=== PATIENT | female | born 1985 | race Hispanic/Latino ===

== ENCOUNTER 2018-06-16 13:00 | Emergency (ER) | payer MEDICARE ==
[2018-06-16 14:17] LABS: Absolute Lymphocytes (CBC) 3.8 K/uL (0.7-4.9); Absolute Monocytes 0.5 K/uL (0.1-1.3); Absolute Neutrophil 7.8 K/uL (1.8-8.0); Basophils % 0.4 % (0-1.3); Eosinophils % 0.2 % (0-4.4); Hematocrit 39.3 % (36.0-45.0); Lymphocytes % 31.2 % (15.3-44.8); MCH 33.8 pg (27.0-35.0); MCV 98.5 fL (80-100); MPV 8.7 fL (7.6-11.3); Monocytes % 3.7 % (3.3-12.3); RBC Red Blood Cell Count 3.99 M/uL (3.86-4.86)
[2018-06-16] MEDS ORDERED: ONDANSETRON 4 MG/2 ML VIAL ONE (14:27)
[2018-06-16] MEDS ORDERED: NA CHLORIDE 0.9% 1,000 ML ONE (14:27)
[2018-06-16 14:33] LABS: ALT/SGPT 82 U/L (12-78); AST/SGOT 26 U/L (15-37); Albumin 3.8 g/dL (3.4-5.0); Alkaline Phosphatase 80 U/L (45-117); BUN Blood Urea Nitrogen 10 mg/dL (7-18); Bicarbonate 23 mmol/L (21-32); Bilirubin Direct 0.2 mg/dL (0-0.2); Bilirubin Total 0.5 mg/dL (0.2-1.0); Glucose Level 155 mg/dL (74-106); Lipase 94 U/L (73-393); Potassium 3.6 mmol/L (3.5-5.1); Sodium Level 143 mmol/L (136-145)
[2018-06-16 14:45] LABS: Calcium Oxalate Crystals- Ur PRESENT (NONE SEEN); Urine Bacteria <20 /HPF (<20); Urine Culture Reflex Order NOT NEEDED; Urine Mucus 2+ /HPF (NONE SEEN); Urine RBC <5 /HPF (NONE SEEN)
[2018-06-16 14:46] LABS: Urine Blood NEGATIVE (NEG); Urine Glucose TRACE (NEG); Urine Protein 2+ (NEG); Urine Specific Gravity >1.030 (1.005-1.030); Urine pH 5.5 (5.0-7.0)
[2018-06-16] MEDS ORDERED: IBUPROFEN 400 MG TAB ONE (16:30)
[2018-06-16] MEDS ORDERED: DIPHENHYDRAMINE 25 MG TAB/CAP ONE (16:56)
--- NOTE | 2018-06-16 17:00 | RAD REPORT ---
EXAM DESCRIPTION: CT - Abdomen Pelvis W Contrast - 06/16/2018 3:46 pm CLINICAL HISTORY: Abdominal pain with nausea/vomiting. COMPARISON: none. TECHNIQUE: Computed axial tomography of the abdomen pelvis was obtained. 100 cc Isovue-300 was admin istered intravenously. Oral contrast was not requested which limits evaluation of bowel. All CT scans are performed using dose optimization technique as appropriate and may include automated exposure control or mA/KV adjustment according to patient size. FINDINGS: The gallbladder has been removed. The liver, spleen, pancreas, adrenal and kidneys appear unremarkable. There is no evidence of diverticulitis. The appendix is normal. A tiny umbilical hernia is present. A 2 centimeter right ovarian cyst is present without significant free-fluid. IMPRESSION: A 2 centimeter right ovarian cyst is present without significant free-fluid.
--- NOTE | 2018-06-16 17:01 | ER ---
Nurse's Notes [facility] Name: Mckenna Haney Age: 33 yrs Sex: Female : 1985 Arrival Date: 06/16/2018 Time: 13:05 Bed 25 Private MD: Diagnosis: Vaginitis, vulvitis and vulvovaginitis in diseases classified elsewhere;Enteritis Presentation: 06/16 13:19 Presenting complaint: Patient states: dizziness, headache, chills, N/V/D, and heart aa5 palpitations x 2 days ago. Transition of care: patient was not received from another setting of care. Onset of symptoms was May 2018. Risk Assessment: Do you want to hurt yourself or someone else? Patient reports no desire to harm self or others. Initial Sepsis Screen: Does the patient meet any 2 criteria? No. Patient's initial sepsis screen is negative. Does the patient have a suspected source of infection? No. Patient's initial sepsis screen is negative. Care prior to arrival: None. 13:19 Method Of Arrival: Ambulatory aa5 13:19 Acuity: LILO 3 aa5 Triage Assessment: 18:28 GI: Reports nausea. 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 - Social history:: Smoking status: Patient/guardian denies using tobacco. - Ebola Screening: : No symptoms or risks identified at this time. - Family history:: not pertinent. - Hospitalizations: : No recent hospitalization is reported. Screenin:20 Abuse screen: Denies threats or abuse. Nutritional screening: No deficits noted. tl3 Tuberculosis screening: No symptoms or risk factors identified. Fall Risk None identified. Assessment: 14:20 General: Appears in no apparent distress. comfortable, well groomed, well developed, tl3 well nourished, Behavior is calm, cooperative, appropriate for age. Pain: Complains of pain in labial abscess, palpatations. Neuro: Level of Consciousness is awake, alert, obeys commands, Oriented to person, place, time, situation, Appropriate for age. Cardiovascular: Heart tones S1 S2 present Patient's skin is warm and dry. Respiratory: Airway is patent Respiratory effort is even, unlabored, Respiratory pattern is regular, symmetrical, Breath sounds are clear bilaterally. GI: Abdomen is round. : No signs and/or symptoms were reported regarding the genitourinary system. EENT: No signs and/or symptoms were reported regarding the EENT system. Derm: No signs and/or symptoms reported regarding the dermatologic system. Musculoskeletal: No signs and/or symptoms reported regarding the musculoskeletal system. 15:54 Reassessment: Patient appears in no apparent distress at this time. No changes from tl3 previously documented assessment. Patient and/or family updated on plan of care and expected duration. Pain level reassessed. Patient is alert, oriented x 3, equal unlabored respirations, skin warm/dry/pink. pt returned from CT, IV infiltrated while obtaining scan, warm compress applied. new IV placed per Eunice 22g left AC, fluids infusing without difficulty. 17:06 Reassessment: pt given 800 mg motrin per verbal order, pt informed of what was being tl3 administered for her headache, then after meds were taken, it was discovered that she has an allergy to motrin, it causes a rash, Dr Weber informed new orders recieved. 17:25 Reassessment: Patient appears in no apparent distress at this time. No changes from tl3 previously documented assessment. Patient and/or family updated on plan of care and expected duration. Pain level reassessed. Patient is alert, oriented x 3, equal unlabored respirations, skin warm/dry/pink. no S/S of allergic reaction, pt has no needs at this time. 18:25 Reassessment: Patient appears in no apparent distress at this time. No changes from tl3 previously documented assessment. Patient and/or family updated on plan of care and expected duration. Pain level reassessed. Patient is alert, oriented x 3, equal unlabored respirations, skin warm/dry/pink. pt had no reaction to motrin. Vital Signs: 13:21 BP 145 / 88; Pulse 98; Resp 16 S; Temp 98.9(O); Pulse Ox 99% on R/A; Weight 104.33 kg aa5 (R); Height 5 ft. 4 in. (162.56 cm) (R); Pain 10/10; 15:54 BP 150 / 92; Pulse 74; Resp 18; Pulse Ox 100% on R/A; tl3 17:25 BP 156 / 103; Pulse 74; Resp 18; Pulse Ox 99% on R/A; tl3 18:25 BP 154 / 98; Pulse 76; Resp 16; Pulse Ox 98% ; tl3 13:21 Body Mass Index 39.48 (104.33 kg, 162.56 cm) aa5 ED Course: 13:05 Patient arrived in ED. rg4 13:20 Triage completed. aa5 13:20 Arm band placed on. aa5 13:30 Prince Weber MD is Attending Physician. rn 14:15 EKG done, by ED staff, reviewed by Prince Weber MD. jb1 14:15 Initial lab(s) drawn, by ga, sent to lab. Urine collected: clean catch specimen, clear, jb1 stephanie colored. Inserted saline lock: 22 gauge in right antecubital area, using aseptic technique. Blood collected. 14:20 Cheryle Jim, RN is Primary Nurse. tl3 14:20 Patient has correct armband on for positive identification. Placed in gown. Bed in low tl3 position. Call light in reach. Side rails up X 1. 14:20 No provider procedures requiring assistance completed. tl3 15:30 Inserted saline lock: 22 gauge in left antecubital area, using aseptic technique. iw 15:46 CT Abd/Pelvis - W/Contrast In Process Unspecified. EDMS 18:25 IV discontinued, intact, bleeding controlled, No redness/swelling at site. Pressure tl3 dressing applied. Administered Medications: 14:31 Drug: NS 0.9% 1000 ml Route: IV; Rate: 1000 ml; Site: right antecubital; Delivery: tl3 Primary tubing; 16:46 Follow up: IV Status: Completed infusion; IV Intake: 1000ml tl3 14:31 Drug: Zofran 4 mg Route: IVP; Site: right antecubital; tl3 16:46 Follow up: Response: No adverse reaction tl3 17:06 Drug: Benadryl 50 mg Route: PO; tl3 18:27 Follow up: Response: No adverse reaction tl3 17:06 Drug: Motrin 800 mg Route: PO; tl3 18:27 Follow up: Response: No adverse reaction tl3 Point of Care Testing: Blood Glucose: 13:24 Blood Glucose: 143 mg/dL; aa5 Ranges: Intake: 16:46 IV: 1000ml; Total: 1000ml. tl3 Outcome: 17:00 Discharge ordered by . rn 18:28 Discharged to home ambulatory. tl3 18:28 Condition: stable 18:28 Discharge instructions given to patient, Instructed on discharge instructions, follow up and referral plans. medication usage, Demonstrated understanding of instructions, follow-up care, medications, Prescriptions given X 3. 18:28 Patient left the ED. tl3 Signatures: Dispatcher [employer] EDSarthak Kaur jb1 Eunice Pichardo, RN RN Prince Ulloa MD MD rn Calderon, Audri, RN RN [id number] Fabiana Palmer Tammy RN RN tl3
--- NOTE | 2018-06-16 17:01 | EDPHYS ---
Physician Documentation [facility] Name: Mckenna Haney Age: 33 yrs Sex: Female : 1985 Arrival Date: 06/16/2018 Time: 13:05 Bed 25 Private MD: ED Physician Prince Weber HPI: 06/16 15:23 This 33 yrs old Female presents to ER via Ambulatory with complaints of rn Dizziness, Palpitations, Vomiting, Headache. 15:23 The patient presents with abdominal pain in the periumbilical area. rn 15:23 Onset: The symptoms/episode began/occurred 2 day(s) ago. The symptoms do not radiate. rn Associated signs and symptoms: Pertinent positives: nausea and vomiting, diarrhea, headache, Pertinent negatives: vaginal discharge. The symptoms are described as achy, crampy. Modifying factors: The symptoms are alleviated by nothing, the symptoms are aggravated by nothing. Severity of pain: At its worst the pain was mild in the emergency department the pain is unchanged. The patient has not experienced similar symptoms in the past. Reports abd pain/cramping, intermittent, assoc with chills/fatigue/headache/vomiting and diarrhea. Also reports right sided vaginal pain, especially when urinating. . 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 - Social history:: Smoking status: Patient/guardian denies using tobacco. - Ebola Screening: : No symptoms or risks identified at this time. - Family history:: not pertinent. - Hospitalizations: : No recent hospitalization is reported. ROS: 15:23 Constitutional: Negative for fever, chills, and weight loss, Eyes: Negative for injury, rn pain, redness, and discharge, Cardiovascular: Negative for chest pain, and edema, Respiratory: Negative for shortness of breath, cough, wheezing, and pleuritic chest pain, Abdomen/GI: Negative for constipation, Back: Negative for injury and pain, : + vaginal pain MS/Extremity: Negative for injury and deformity, Skin: Negative for injury, rash, and discoloration, Neuro: Negative for numbness, tingling, and seizure. Exam: 14:53 Pelvic Exam: No bartholin gland swelling or induration, 2-3 very small ulcers right rn inner labia, no vesicles, mild erythema surrounding with tenderness 15:23 Constitutional: This is a well developed, well nourished patient who is awake, alert, rn and in no acute distress. Head/Face: Normocephalic, atraumatic. Eyes: Pupils equal round and reactive to light, extra-ocular motions intact. Lids and lashes normal. Conjunctiva and sclera are non-icteric and not injected. Cornea within normal limits. Periorbital areas with no swelling, redness, or edema. Neck: Trachea midline, no thyromegaly or masses palpated, and no cervical lymphadenopathy. Supple, full range of motion without nuchal rigidity, or vertebral point tenderness. No Meningismus. Cardiovascular: Regular rate and rhythm with a normal S1 and S2. No gallops, murmurs, or rubs. Normal PMI, no JVD. No pulse deficits. Respiratory: Lungs have equal breath sounds bilaterally, clear to auscultation and percussion. No rales, rhonchi or wheezes noted. No increased work of breathing, no retractions or nasal flaring. Abdomen/GI: soft, mild periumbilical tenderness, no rebound MS/ Extremity: Pulses equal, no cyanosis. Neurovascular intact. Full, normal range of motion. Equal circumference. Neuro: Awake and alert, GCS 15, oriented to person, place, time, and situation. Cranial nerves II-XII grossly intact. Motor strength 5/5 in all extremities. Sensory grossly intact. Cerebellar exam normal. Normal gait. Vital Signs: 13:21 BP 145 / 88; Pulse 98; Resp 16 S; Temp 98.9(O); Pulse Ox 99% on R/A; Weight 104.33 kg aa5 (R); Height 5 ft. 4 in. (162.56 cm) (R); Pain 10/10; 15:54 BP 150 / 92; Pulse 74; Resp 18; Pulse Ox 100% on R/A; tl3 17:25 BP 156 / 103; Pulse 74; Resp 18; Pulse Ox 99% on R/A; tl3 18:25 BP 154 / 98; Pulse 76; Resp 16; Pulse Ox 98% ; tl3 13:21 Body Mass Index 39.48 (104.33 kg, 162.56 cm) aa5 MDM: 13:30 Patient medically screened. rn 16:59 Differential diagnosis: appendicitis, diverticulitis, gastritis, gastroesophageal rn reflux disease, non-specific abd pain, pancreatitis, Peptic Ulcer Disease, Ureterolithiasis, urinary tract infection. Data reviewed: vital signs, nurses notes, lab test result(s), radiologic studies, CT scan, and as a result, I will discharge patient. Counseling: I had a detailed discussion with the patient and/or guardian regarding: the historical points, exam findings, and any diagnostic results supporting the discharge/admit diagnosis, lab results, radiology results, the need for outpatient follow up, to return to the emergency department if symptoms worsen or persist or if there are any questions or concerns that arise at home. Response to treatment: the patient's symptoms have mildly improved after treatment, and as a result, I will discharge patient. Special discussion: Based on the patient's Hx, exam, and Dx evaluation, there is no indication for emergent surgery or inpatient Tx. It is understood by the patient/guardian that if the Sx's persist or worsen they need to return immediately for re-evaluation. I discussed with the patient/guardian in detail that at this point there is no indication for admission to the hospital. It is understood, however, that if the symptoms persist or worsen the patient needs to return immediately for re-evaluation. 06/16 13:53 Order name: CBC with Diff; Complete Time: 14:36 06/16 13:53 Order name: Basic Metabolic Panel; Complete Time: 14:36 06/16 13:53 Order name: Hepatic Function; Complete Time: 14:36 06/16 13:53 Order name: Lipase; Complete Time: 14:36 06/16 13:53 Order name: Urine Microscopic Only; Complete Time: 15:22 06/16 13:53 Order name: Jones Screen Profile; Complete Time: 15:22 06/16 13:53 Order name: EKG; Complete Time: 13:53 06/16 14:32 Order name: Urine Dipstick--Ancillary (enter results); Complete Time: 15:22 bd 06/16 14:32 Order name: Urine --Ancillary (enter results); Complete Time: 15:22 bd 06/16 14:37 Order name: CT Abd/Pelvis - W/Contrast; Complete Time: 17:03 rn 06/16 13:53 Order name: EKG - Nurse/Tech; Complete Time: 14:15 rn 06/16 13:53 Order name: Urine Test (obtain specimen); Complete Time: 14:15 rn 06/16 13:53 Order name: IV Saline Lock; Complete Time: 14:15 rn 06/16 13:53 Order name: Labs collected and sent; Complete Time: 14:15 rn 06/16 13:53 Order name: Urine Dipstick-Ancillary (obtain specimen); Complete Time: 14:15 rn Administered Medications: 14:31 Drug: NS 0.9% 1000 ml Route: IV; Rate: 1000 ml; Site: right antecubital; Delivery: tl3 Primary tubing; 16:46 Follow up: IV Status: Completed infusion; IV Intake: 1000ml tl3 14:31 Drug: Zofran 4 mg Route: IVP; Site: right antecubital; tl3 16:46 Follow up: Response: No adverse reaction tl3 17:06 Drug: Benadryl 50 mg Route: PO; tl3 18:27 Follow up: Response: No adverse reaction tl3 17:06 Drug: Motrin 800 mg Route: PO; tl3 18:27 Follow up: Response: No adverse reaction tl3 Point of Care Testing: Blood Glucose: 13:24 Blood Glucose: 143 mg/dL; aa5 Ranges: Critical Glucose Levels:Adult <50 mg/dl or >400 mg/dl <40 mg/dl or >180 mg/dl Disposition: 06/16/18 17:00 Discharged to Home. Impression: Vaginitis, vulvitis and vulvovaginitis in diseases classified elsewhere, Enteritis. - Condition is Stable. - Discharge Instructions: Viral Gastroenteritis, Adult, Vaginitis. - Prescriptions for Flagyl 500 mg Oral Tablet - take 1 tablet by ORAL route every 12 hours for 7 days; 14 tablet. Nystatin- Triamcinolone 100,000-0.1 unit/g-% Topical Cream - apply 1 application by TOPICAL route 2 times per day for 7 days; 1 tube. Zofran ODT 4 mg Oral tablet,disintegrating - place 1 tablet by TRANSLINGUAL route every 8-10 hours As needed; 20 tablet. - Medication Reconciliation Form, Thank You Letter, Antibiotic Education, Prescription Opioid Use form. - Follow up: Private Physician; When: As needed; Reason: Recheck today's complaints, Re-evaluation by your physician. - Problem is new. - Symptoms have improved. Signatures: Dispatcher [employer] EDMS Prince Weber MD MD rn Calderon, Audri RN RN aa5 Cheryle Jim RN RN tl3 Corrections: (The following items were deleted from the chart) 18:28 17:00 06/16/2018 17:00 Discharged to Home. Impression: Vaginitis, vulvitis and tl3 vulvovaginitis in diseases classified elsewhere; Enteritis. Condition is Stable. Discharge Instructions: Vaginitis. Prescriptions for Flagyl 500 mg Oral Tablet - take 1 tablet by ORAL route every 12 hours for 7 days; 14 tablet, Nystatin-Triamcinolone 100,000-0.1 unit/g-% Topical Cream - apply 1 application by TOPICAL route 2 times per day for 7 days; 1 tube. and Forms are Medication Reconciliation Form, Thank You Letter, Antibiotic Education, Prescription Opioid Use. Follow up: Private Physician; When: As needed; Reason: Recheck today's complaints, Re-evaluation by your physician. Problem is new. Symptoms have improved. rn
--- NOTE | 2018-06-18 07:45 | EKG ---
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
== END 2018-06-16 18:28 | disposition home or self-care (01) ==
LOC: ER 13:00
DX: K52.9 Noninfective gastroenteritis and colitis, unspecified (principal); N77.1 Vaginitis, vulvitis and vulvovaginitis in diseases classified elsewhere; I10 Essential (primary) hypertension; Z88.6 Allergy status to analgesic agent
CPT/HCPCS: 36415; 74177; 80048; 80076; 81025; 82962; 83690; 85025; 86308; 93005; 96361; 96374; 99284; J2405; J7030; Q9967; 81003; 81015

== ENCOUNTER 2018-06-18 13:21 | Emergency (ER) | payer MEDICARE ==
--- OUTSIDE RECORDS SUMMARY | 2018-06-18 13:24 | XMS REPORT | Clinical Summary ---
:1985 Author Organization [facility] Address [address] [place] [address] Care Team Providers Name Role Phone Miranda Goodrich MD Primary Care Provider Allergies Active Allergy Reactions Severity Noted Date Comments Ibuprofen Rash Low 01/04/2018 Current Medications Prescription Sig. Disp. Refills Start Date End Date Status lisinopril Take 2.5 mg by Active (PRINIVIL,ZESTRIL) mouth daily. 2.5 mg tablet metFORMIN Take 1,000 mg Active (GLUCOPHAGE) 1,000 by mouth 2 mg tablet (two) times a day with meals. alcohol swabs Test daily 1 each 0 01/09/2018 Active pads, medicated before all meals/snacks and once before bedtime. ACCU-CHEK COMPACT Test daily 200 strip 0 01/09/2018 Active TEST strip before all meals/snacks and once before bedtime. blood-glucose Test daily 1 kit 0 01/09/2018 Active meter, drum-type before all (ACCU-CHEK COMPACT meals/snacks PLUS CARE) kit and once before bedtime. lancing device Test daily 200 each 0 01/09/2018 Active with lancets before all (ACCU-CHEK meals/snacks MULTICLIX LANCET) and once before kit bedtime. lancets (ACCU-CHEK Test daily 200 each 0 01/09/2018 Active MULTICLIX LANCET) before all misc meals/snacks and once before bedtime. insulin syringes, Use as directed 100 each 0 01/09/2018 Active disposable, 1 mL syringe ertapenem 1 g in Infuse 1 g into 01/08/2018 01/18/2018 sodium chloride a venous 0.9 % MBP 50 mL catheter daily IVPB for 10 days. insulin GLARGINE Inject 25 Units 7.5 mL 0 01/09/2018 01/09/2018 Discontinued (LANTUS) 100 under the skin unit/mL injection daily before (vial) breakfast for 30 days. insulin lispro Inject 10 Units 10 mL 12 01/08/2018 01/09/2018 Discontinued (HumaLOG) 100 under the skin unit/mL injection 3 (three) times a day before meals for 30 days. blood-glucose Test daily 01/08/2018 01/09/2018 Discontinued meter, drum-type before all (ACCU-CHEK COMPACT meals/snacks PLUS CARE) kit and once before bedtime. ACCU-CHEK COMPACT Test daily 01/08/2018 01/09/2018 Discontinued TEST strip before all meals/snacks and once before bedtime. lancing device Test daily 1 each 0 01/08/2018 01/09/2018 Discontinued with lancets before all (ACCU-CHEK meals/snacks MULTICLIX LANCET) and once before kit bedtime. lancets (ACCU-CHEK Test daily 3 each 0 01/08/2018 01/09/2018 Discontinued MULTICLIX LANCET) before all misc meals/snacks and once before bedtime. alcohol swabs Test daily 1 each 0 01/08/2018 01/09/2018 Discontinued pads, medicated before all meals/snacks and once before bedtime. insulin syringes, Use as directed 100 each 0 01/08/2018 01/09/2018 Discontinued disposable, 1 mL syringe valACYclovir Take 4 tablets 4 tablet 0 01/09/2018 01/09/2018 (VALTREX) 500 MG (2,000 mg tablet total) by mouth once for 1 dose. insulin GLARGINE Inject 25 Units 7.5 mL 0 01/09/2018 02/08/2018 (LANTUS) 100 under the skin unit/mL injection daily before (vial) breakfast for 30 days. insulin lispro Inject 10 Units 10 mL 12 01/09/2018 02/08/2018 (HumaLOG) 100 under the skin unit/mL injection 3 (three) times a day before meals for 30 days. Active Problems Problem Noted Date Acute cystitis with hematuria 01/04/2018 Encounters Date Type Specialty Care Team Description 01/04/2018 - Hospital Encounter General Internal [place], Acute cystitis with hematuria (Primary Dx); 01/09/2018 Medicine Orn, DO Fever, unspecified fever cause; [place], Dehydration; MD Edgardo Leukocytosis, unspecified type Juvencio Monsalve MD Sodhi, Nidhi, MD after 06/17/2017 Immunizations Name Dates Previously Given Next Due FLUCELVAX QUAD PF (0.5mL syringe) 01/09/2018 Social History Tobacco Use Types Packs/Day Years Used Date Never Smoker Smokeless Tobacco: Never Used Alcohol Use Drinks/Week oz/Week Comments No Sex Assigned at Date Recorded Not on file Last Filed Vital Signs Vital Sign Reading Time Taken Blood Pressure 109/62 01/09/2018 12:13 PM [facility] Pulse 105 01/09/2018 12:13 PM [facility] Temperature 36.8 C (98.2 F) 01/09/2018 12:13 PM [facility] Respiratory Rate 18 01/09/2018 12:13 PM [facility] Oxygen Saturation 94% 01/09/2018 12:13 PM [facility] Inhaled Oxygen Concentration - - Weight 107 kg (235 lb 12.8 oz) 01/04/2018 6:13 AM [facility] Height 162.6 cm (5' 4") 01/04/2018 12:40 AM [facility] Body Mass Index 40.47 01/04/2018 6:13 AM [facility] Plan of Treatment Health Maintenance Due Date Last Done Comments CERVICAL CANCER SCREENING 2008 INFLUENZA VACCINE 06/27/2018 01/09/2018 Procedures Procedure Name Priority Date/Time Associated Comments Diagnosis POC GLUCOSE Routine 01/09/2018 12:14 Results for this PM [facility] procedure are in the results section. POC GLUCOSE Routine 01/09/2018 8:49 Results for this AM [facility] procedure are in the results section. POC GLUCOSE Routine 01/08/2018 3:35 Results for this PM [facility] procedure are in the results section. POC GLUCOSE Routine 01/08/2018 12:08 Results for this PM [facility] procedure are in the results section. US GUIDED VASCULAR Routine 01/08/2018 9:42 Results for this ACCESS AM [facility] procedure are in the results section. IR PICC PLACEMENT Routine 01/08/2018 9:42 Results for this AM [facility] procedure are in the results section. POC GLUCOSE Routine 01/08/2018 7:36 Results for this AM [facility] procedure are in the results section. ESTIMATED GFR Routine 01/08/2018 5:00 Results for this AM [facility] procedure are in the results section. PROTHROMBIN TIME WITH Routine 01/08/2018 5:00 Results for this INR AM [facility] procedure are in the results section. COMPREHENSIVE METABOLIC Routine 01/08/2018 5:00 Results for this PANEL AM [facility] procedure are in the results section. HC COMPLETE BLD COUNT Routine 01/08/2018 5:00 Results for this W/AUTO DIFF AM [facility] procedure are in the results section. POC GLUCOSE Routine 01/07/2018 9:01 Results for this PM [facility] procedure are in the results section. POC GLUCOSE Routine 01/07/2018 4:41 Results for this PM [facility] procedure are in the results section. POC GLUCOSE Routine 01/07/2018 12:24 Results for this PM [facility] procedure are in the results section. POC GLUCOSE Routine 01/07/2018 7:52 Results for this AM [facility] procedure are in the results section. ESTIMATED GFR Routine 01/07/2018 5:45 Results for this AM [facility] procedure are in the results section. BASIC METABOLIC PANEL Routine 01/07/2018 5:45 Results for this AM [facility] procedure are in the results section. HC COMPLETE BLD COUNT Routine 01/07/2018 5:45 Results for this W/AUTO DIFF AM [facility] procedure are in the results section. POC GLUCOSE Routine 01/07/2018 5:35 Results for this AM [facility] procedure are in the results section. LACTIC ACID LEVEL, Timed 01/06/2018 10:00 Results for this SEPSIS - NOW AND REPEAT PM [facility] procedure are in 2X EVERY 3 HOURS the results section. POC GLUCOSE Routine 01/06/2018 8:54 Results for this PM [facility] procedure are in the results section. LACTIC ACID LEVEL, Timed 01/06/2018 5:00 Results for this SEPSIS - NOW AND REPEAT PM [facility] procedure are in 2X EVERY 3 HOURS the results section. POC GLUCOSE Routine 01/06/2018 3:53 Results for this PM [facility] procedure are in the results section. LACTIC ACID LEVEL, Timed 01/06/2018 1:55 Results for this SEPSIS - NOW AND REPEAT PM [facility] procedure are in 2X EVERY 3 HOURS the results section. POC GLUCOSE Routine 01/06/2018 11:20 Results for this AM [facility] procedure are in the results section. POC GLUCOSE Routine 01/06/2018 7:58 Results for this AM [facility] procedure are in the results section. ESTIMATED GFR Routine 01/06/2018 5:34 Results for this AM [facility] procedure are in the results section. COMPREHENSIVE METABOLIC Routine 01/06/2018 5:34 Results for this PANEL AM [facility] procedure are in the results section. HC COMPLETE BLD COUNT Routine 01/06/2018 5:34 Results for this W/AUTO DIFF AM [facility] procedure are in the results section. POC GLUCOSE Routine 01/06/2018 5:24 Results for this AM [facility] procedure are in the results section. TROPONIN Timed 01/06/2018 12:15 Results for this AM [facility] procedure are in the results section. LACTIC ACID LEVEL, Timed 01/05/2018 11:40 Results for this SEPSIS - NOW AND REPEAT PM [facility] procedure are in 2X EVERY 3 HOURS the results section. TROPONIN Timed 01/05/2018 8:30 Results for this PM [facility] procedure are in the results section. LACTIC ACID LEVEL Timed 01/05/2018 8:30 Results for this PM [facility] procedure are in the results section. ESTIMATED GFR STAT 01/05/2018 5:02 Results for this PM [facility] procedure are in the results section. THYROID STIMULATING STAT 01/05/2018 5:02 Results for this HORMONE PM [facility] procedure are in the results section. TROPONIN Timed 01/05/2018 5:02 Results for this PM [facility] procedure are in the results section. MAGNESIUM LEVEL STAT 01/05/2018 5:02 Results for this PM [facility] procedure are in the results section. BASIC METABOLIC PANEL STAT 01/05/2018 5:02 Results for this PM [facility] procedure are in the results section. LACTIC ACID LEVEL STAT 01/05/2018 5:00 Results for this PM [facility] procedure are in the results section. POC GLUCOSE Routine 01/05/2018 4:49 Results for this PM [facility] procedure are in the results section. ECG 12-LEAD Routine 01/05/2018 4:47 Results for this PM [facility] procedure are in the results section. CT RENAL STONE PROTOCOL Routine 01/05/2018 3:30 Results for this PM [facility] procedure are in the results section. POC GLUCOSE Routine 01/05/2018 12:11 Results for this PM [facility] procedure are in the results section. POC GLUCOSE Routine 01/05/2018 7:47 Results for this AM [facility] procedure are in the results section. ESTIMATED GFR Routine 01/05/2018 5:25 Results for this AM [facility] procedure are in the results section. COMPREHENSIVE METABOLIC Routine 01/05/2018 5:25 Results for this PANEL AM [facility] procedure are in the results section. HC COMPLETE BLD COUNT Routine 01/05/2018 5:25 Results for this W/AUTO DIFF AM [facility] procedure are in the results section. POC GLUCOSE Routine 01/04/2018 8:39 Results for this PM [facility] procedure are in the results section. POC GLUCOSE Routine 01/04/2018 4:53 Results for this PM [facility] procedure are in the results section. POC GLUCOSE Routine 01/04/2018 2:30 Results for this PM [facility] procedure are in the results section. POC GLUCOSE Routine 01/04/2018 12:02 Results for this PM [facility] procedure are in the results section. ESTIMATED GFR STAT 01/04/2018 10:30 Results for this AM [facility] procedure are in the results section. HEMOGLOBIN A1C STAT 01/04/2018 10:30 Results for this AM [facility] procedure are in the results section. PHOSPHORUS LEVEL STAT 01/04/2018 10:30 Results for this AM [facility] procedure are in the results section. MAGNESIUM LEVEL STAT 01/04/2018 10:30 Results for this AM [facility] procedure are in the results section. LACTIC ACID LEVEL STAT 01/04/2018 10:30 Results for this AM [facility] procedure are in the results section. HC COMPLETE BLD COUNT STAT 01/04/2018 10:30 Results for this W/AUTO DIFF AM [facility] procedure are in the results section. BASIC METABOLIC PANEL STAT 01/04/2018 10:30 Results for this AM [facility] procedure are in the results section. POC GLUCOSE Routine 01/04/2018 5:27 Results for this AM [facility] procedure are in the results section. ECG ED PRELIMINARY Routine 01/04/2018 3:46 Results for this INTERPRETATION AM [facility] procedure are in the results section. ECG ED PRELIMINARY Routine 01/04/2018 3:46 Results for this INTERPRETATION AM [facility] procedure are in the results section. BLOOD CULTURE, AEROBIC Routine 01/04/2018 3:10 Results for this & ANAEROBIC AM [facility] procedure are in the results section. LACTIC ACID LEVEL Routine 01/04/2018 3:05 Results for this AM [facility] procedure are in the results section. XR CHEST 2 VW STAT 01/04/2018 1:52 Results for this AM [facility] procedure are in the results section. RESPIRATORY PATHOGEN Routine 01/04/2018 12:55 Results for this PANEL AM [facility] procedure are in the results section. INFLUENZA ANTIGEN Routine 01/04/2018 12:55 Results for this AM [facility] procedure are in the results section. ESTIMATED GFR STAT 01/04/2018 12:50 Results for this AM [facility] procedure are in the results section. SALICYLATE LEVEL STAT 01/04/2018 12:50 Results for this AM [facility] procedure are in the results section. COMPREHENSIVE METABOLIC STAT 01/04/2018 12:50 Results for this PANEL AM [facility] procedure are in the results section. HC COMPLETE BLD COUNT STAT 01/04/2018 12:50 Results for this W/AUTO DIFF AM [facility] procedure are in the results section. BLOOD CULTURE, AEROBIC Routine 01/04/2018 12:50 Results for this & ANAEROBIC AM [facility] procedure are in the results section. HCG QUALITATIVE, URINE STAT 01/04/2018 12:48 Results for this SCREEN AM [facility] procedure are in the results section. URINALYSIS SCREEN AND STAT 01/04/2018 12:48 Results for this MICROSCOPY, WITH REFLEX AM [facility] procedure are in TO CULTURE the results section. GRAM STAIN STAT 01/04/2018 12:48 Results for this AM [facility] procedure are in the results section. URINE CULTURE STAT 01/04/2018 12:48 Results for this AM [facility] procedure are in the results section. ECG 12-LEAD Routine 01/04/2018 12:24 Results for this AM [facility] procedure are in the results section. after 06/17/2017 Results POC glucose (01/09/2018 12:14 PM)Only the most recent of23 resultswithin the time period is included. POC glucose 163 (H) 65 - 99 mg/dL [facility] DEPARTMENT OF PATHOLOGY AND Comment: GENOMIC MEDICINE RN Notified Meter ID: [id number] Machine Assembler For Puller Over: Rk Higgins Performing Organization Address City/State/Zipcode Phone Number [facility] DEPARTMENT OF PATHOLOGY [address] [id number] AND GENOMIC MEDICINE IR PICC Placement (01/08/2018 9:42 AM) Narrative Performed At [facility] Placement of a right upper extremity PICC. Clinical Indication needs long-term intravenous medications Anesthesia Lidocaine 1%. Sedation None Technique Written informed consent was obtained prior to the procedure. All elements of maximal sterile barrier technique were followed. The right upper extremity was sterilely prepared and draped in the routine manner. Lidocaine 1% was used for local anesthetic. Using real-time ultrasound guidance, a 21-gauge micropuncture needle was used to access the right basilic vein. A 0.018 inch guidewire was advanced centrally to the right atrium under fluoroscopy. The needle was removed and a 5.5-Romanian peel-away sheath was then placed. Under ultrasound guidance, documentation of vessel patency, needle access with permanent recording, and reporting are performed followed by placement of a sheath in the rightbasilic vein. A 39 cm long 5-Romanian dual-lumen Power PICC was then deployed over the guidewire and through the peel-away sheath. The catheter tip was placed at the right atrium/superior vena cava junction under fluoroscopic guidance. All ports were tested and demonstrate adequate flow. The catheter was secured to then skin using 2-0 silk suture. The patient tolerated the procedure well. Complications None. Radiation dose Ka,r=5.1 mGy Impression: Successful fluoroscopic-guided placement of a 39 cm long 5 Romanian dual-lumen Power PICC via the right basilic vein. The catheter tip lies at the right atrium/superior vena cava junction and is ready for use. [id number] Procedure Note Interface, Radiology Results Incoming - 01/08/2018 4:57 PM [facility] Procedure Placement of a right upper extremity PICC. Clinical Indication needs long-term intravenous medications Anesthesia Lidocaine 1%. Sedation None Technique Written informed consent was obtained prior to the procedure. All elements of maximal sterile barrier technique were followed. The right upper extremity was sterilely prepared and draped in the routine manner. Lidocaine 1% was used for local anesthetic. Using real-time ultrasound guidance, a 21-gauge micropuncture needle was used to access the right basilic vein. A 0.018 inch guidewire was advanced centrally to the right atrium under fluoroscopy. The needle was removed and a 5.5-Romanian peel-away sheath was then placed. Under ultrasound guidance, documentation of vessel patency, needle access with permanent recording, and reporting are performed followed by placement of a sheath in the right basilic vein. A 39 cm long 5-Romanian dual-lumen Power PICC was then deployed over the guidewire and through the peel-away sheath. The catheter tip was placed at the right atrium/superior vena cava junction under fluoroscopic guidance. All ports were tested and demonstrate adequate flow. The catheter was secured to then skin using 2-0 silk suture. The patient tolerated the procedure well. Complications None. Radiation dose Ka,r=5.1 mGy Impression: Successful fluoroscopic-guided placement of a 39 cm long 5 Romanian dual-lumen Power PICC via the right basilic vein. The catheter tip lies at the right atrium /superior vena cava junction and is ready for use. [id number] Performing Organization Address City/State/Zipcode Phone Number [facility] [address] [place] [address] US Guided Vascular Access (01/08/2018 9:42 AM) Narrative Performed At Procedure [facility] Placement of a right upper extremity PICC. Clinical Indication needs long-term intravenous medications Anesthesia Lidocaine 1%. Sedation None Technique Written informed consent was obtained prior to the procedure. All elements of maximal sterile barrier technique were followed. The right upper extremity was sterilely prepared and draped in the routine manner. Lidocaine 1% was used for local anesthetic. Using real-time ultrasound guidance, a 21-gauge micropuncture needle was used to access the right basilic vein. A 0.018 inch guidewire was advanced centrally to the right atrium under fluoroscopy. The needle was removed and a 5.5-Romanian peel-away sheath was then placed. Under ultrasound guidance, documentation of vessel patency, needle access with permanent recording, and reporting are performed followed by placement of a sheath in the rightbasilic vein. A 39 cm long 5-Romanian dual-lumen Power PICC was then deployed over the guidewire and through the peel-away sheath. The catheter tip was placed at the right atrium/superior vena cava junction under fluoroscopic guidance. All ports were tested and demonstrate adequate flow. The catheter was secured to then skin using 2-0 silk suture. The patient tolerated the procedure well. Complications None. Radiation dose Ka,r=5.1 mGy Impression: Successful fluoroscopic-guided placement of a 39 cm long 5 Romanian dual-lumen Power PICC via the right basilic vein. The catheter tip lies at the right atrium/superior vena cava junction and is ready for use. [id number] Procedure Note Interface, Radiology Results Incoming - 01/08/2018 4:58 PM [facility] Procedure Placement of a right upper extremity PICC. Clinical Indication needs long-term intravenous medications Anesthesia Lidocaine 1%. Sedation None Technique Written informed consent was obtained prior to the procedure. All elements of maximal sterile barrier technique were followed. The right upper extremity was sterilely prepared and draped in the routine manner. Lidocaine 1% was used for local anesthetic. Using real-time ultrasound guidance, a 21-gauge micropuncture needle was used to access the right basilic vein. A 0.018 inch guidewire was advanced centrally to the right atrium under fluoroscopy. The needle was removed and a 5.5-Romanian peel-away sheath was then placed. Under ultrasound guidance, documentation of vessel patency, needle access with permanent recording, and reporting are performed followed by placement of a sheath in the right basilic vein. A 39 cm long 5-Romanian dual-lumen Power PICC was then deployed over the guidewire and through the peel-away sheath. The catheter tip was placed at the right atrium/superior vena cava junction under fluoroscopic guidance. All ports were tested and demonstrate adequate flow. The catheter was secured to then skin using 2-0 silk suture. The patient tolerated the procedure well. Complications None. Radiation dose Ka,r=5.1 mGy Impression: Successful fluoroscopic-guided placement of a 39 cm long 5 Romanian dual-lumen Power PICC via the right basilic vein. The catheter tip lies at the right atrium /superior vena cava junction and is ready for use. [facility]-[id number] Performing Organization Address City/[facility]/Zipcode Phone Number [facility] [address] [place] [address] Estimated GFR (01/08/2018 5:00 AM)Only the most recent of7 resultswithin the time period is included. GFR Non Af Amer >90 mL/min/1.[address] [facility] DEPARTMENT OF PATHOLOGY AND GENOMIC MEDICINE GFR Af Amer >90 mL/min/1.[address] [facility] DEPARTMENT OF Comment: PATHOLOGY AND GENOMIC Chronic kidney disease: <60 mL/min/1.73m2 MEDICINE Kidney failure: <15 mL/min/1.73m2 The estimated GFR is calculated from the IDMS-traceable Modification of Diet in Renal Disease Equation. The accuracy of the calculation is poor when the creatinine is normal. Calculated values >90 mL/min/1.73m2 are not reported. This equation has not been validated in children (<18 years), women, the elderly (>70 years), or ethnic groups other than Caucasians and Americans. Specimen Plasma specimen Performing Organization Address City/State/Zipcode Phone Number [facility] DEPARTMENT OF PATHOLOGY [address] [place] [address] AND [employer] MEDICINE Prothrombin time with INR (01/08/2018 5:00 AM) Prothrombin time 14.5 12.0 - 15.[address] [facility] DEPARTMENT OF PATHOLOGY AND GENOMIC MEDICINE INR 1.[address] [facility] DEPARTMENT OF Comment: PATHOLOGY AND GENOMIC The International Normalized Ratio (INR) is a therapeutic MEDICINE monitoring tool for patients who are stable on oral anticoagulant therapy. An INR of 2.0-3.0 is suggested for deep vein thrombosis/pulmonary embolism. Specimen Blood Performing Organization Address City/State/Zipcode Phone Number [facility] DEPARTMENT OF PATHOLOGY [phone] [facility] [place] [address] AND GENOMIC MEDICINE CBC with platelet and differential (01/08/2018 5:00 AM)Only the most recent of6 resultswithin the time period is included. WBC 10.2 4.5 - 11.0 k/uL [facility] DEPARTMENT OF PATHOLOGY AND GENOMIC MEDICINE RBC 4.02 (L) 4.20 - 5.50 m/uL [facility] DEPARTMENT OF PATHOLOGY AND GENOMIC MEDICINE HGB 13.6 12.0 - 16.0 g/dL [facility] DEPARTMENT OF PATHOLOGY AND GENOMIC MEDICINE HCT 39.5 37.0 - 47.0 % [facility] DE[facility]MENT OF PATHOLOGY AND GENOMIC MEDICINE MCV 98.3 82.0 - 100.[address] [facility] DEPARTMENT OF PATHOLOGY AND GENOMIC MEDICINE MCH 33.8 27.0 - 34.[address] [facility] DEPARTMENT OF PATHOLOGY AND GENOMIC MEDICINE MCHC 34.4 31.0 - 37.0 g/dL [facility] DEPARTMENT OF PATHOLOGY AND GENOMIC MEDICINE RDW - SD 43.5 37.0 - 55.[address] [facility] DEPARTMENT OF PATHOLOGY AND GENOMIC MEDICINE MPV 10.3 6.9 - 11.[address] [facility] DEPARTMENT OF PATHOLOGY AND GENOMIC MEDICINE Platelet count 288 150 - 400 K/uL [facility] DEPARTMENT OF PATHOLOGY AND GENOMIC MEDICINE Nucleated RBC 0.00 /[address] [facility] DEPARTMENT OF PATHOLOGY AND GENOMIC MEDICINE Neutrophils 53.6 39.0 - 69.0 % [facility] DE[facility]MENT OF PATHOLOGY AND GENOMIC MEDICINE Lymphocytes 35.7 25.0 - 45.0 % [facility] DE[facility]MENT OF PATHOLOGY AND GENOMIC MEDICINE Monocytes 7.5 0.0 - 10.0 % [facility] DEPARTMENT OF PATHOLOGY AND GENOMIC MEDICINE Eosinophils 2.1 0.0 - 5.0 % [facility] DE[facility]MENT OF PATHOLOGY AND GENOMIC MEDICINE Basophils 0.5 0.0 - 1.0 % [facility] DEPARTMENT OF PATHOLOGY AND GENOMIC MEDICINE Immature granulocytes 0.6 0.0 - 1.0 % [facility] [facility] DEPARTMENT OF PATHOLOGY AND GENOMIC MEDICINE Specimen Blood Performing Organization Address City/State/Zipcode Phone Number [facility] DEPARTMENT OF PATHOLOGY [address] [place] [address] AND [employer] [facility] Comprehensive metabolic panel (01/08/2018 5:00 AM)Only the most recent of4 resultswithin the time period is included. Sodium 139 135 - 148 mEq/L [facility] DEPARTMENT OF PATHOLOGY AND GENOMIC MEDICINE Potassium 3.8 3.5 - 5.0 mEq/L [facility] DEPARTMENT OF PATHOLOGY AND GENOMIC MEDICINE Chloride 102 98 - 112 mEq/L [facility] DEPARTMENT OF PATHOLOGY AND GENOMIC MEDICINE CO2 23 (L) 24 - 31 mEq/L [facility] DEPARTMENT OF PATHOLOGY AND GENOMIC MEDICINE Anion gap 14 7 - 15 mEq/L [facility] DEPARTMENT OF Comment: PATHOLOGY AND GENOMIC Starting from February , anion gap calculation MEDICINE no longer incorporates potassium. Please note the change. BUN 12 6 - 20 mg/dL [facility] DEPARTMENT OF PATHOLOGY AND GENOMIC MEDICINE Creatinine 0.5 0.5 - 0.9 mg/dL [facility] DEPARTMENT OF PATHOLOGY AND GENOMIC MEDICINE Glucose 153 (H) 65 - 99 mg/dL [facility] DEPARTMENT OF PATHOLOGY AND GENOMIC MEDICINE Calcium 8.8 8.3 - 10.2 mg/dL [facility] DEPARTMENT OF PATHOLOGY AND GENOMIC MEDICINE Protein 7.2 6.3 - 8.3 g/dL [facility] DEPARTMENT OF PATHOLOGY AND GENOMIC MEDICINE Albumin 3.4 (L) 3.5 - 5.0 g/dL [facility] DEPARTMENT OF PATHOLOGY AND GENOMIC MEDICINE A/G ratio 0.9 0.7 - 3.[address] [facility] DEPARTMENT OF PATHOLOGY AND GENOMIC MEDICINE Alkaline phosphatase 73 35 - 104 U/L [facility] DEPARTMENT OF PATHOLOGY AND GENOMIC MEDICINE AST 27 10 - 35 U/L [facility] DEPARTMENT OF PATHOLOGY AND GENOMIC MEDICINE ALT 35 5 - 50 U/L [facility] DEPARTMENT OF PATHOLOGY AND GENOMIC MEDICINE Total bilirubin 0.4 0.2 - 1.2 mg/dL [facility] DEPARTMENT OF PATHOLOGY AND GENOMIC MEDICINE Specimen Plasma specimen Performing Organization Address City/State/Zipcode Phone Number [facility] DEPARTMENT OF PATHOLOGY [address] [place] [address] AND [employer] [facility] Basic metabolic panel (01/07/2018 5:45 AM)Only the most recent of3 resultswithin the time period is included. Sodium 136 135 - 148 mEq/L [facility] DEPARTMENT OF PATHOLOGY AND GENOMIC MEDICINE Potassium 3.8 3.5 - 5.0 mEq/L [facility] DEPARTMENT OF PATHOLOGY AND GENOMIC MEDICINE Chloride 99 98 - 112 mEq/L [facility] DEPARTMENT OF PATHOLOGY AND [facility] CO2 23 (L) 24 - 31 mEq/L [facility] DEPARTMENT OF PATHOLOGY AND [facility] Anion gap 14 7 - 15 mEq/L [facility] DEPARTMENT OF Comment: PATHOLOGY AND GENOMIC Starting from February , anion gap calculation MEDICINE no longer incorporates potassium. Please note the change. BUN 8 6 - 20 mg/dL [facility] DEPARTMENT OF PATHOLOGY AND [facility] Creatinine 0.5 0.5 - 0.9 mg/dL [facility] DEPARTMENT OF PATHOLOGY AND [facility] Glucose 184 (H) 65 - 99 mg/dL [facility] DEPARTMENT OF PATHOLOGY AND [facility] Calcium 8.9 8.3 - 10.2 mg/dL [facility] DEPARTMENT OF PATHOLOGY AND [facility] Specimen Plasma specimen Performing Organization Address City/[facility]/Zipcode Phone Number [facility] DEPARTMENT OF PATHOLOGY [address] [place] [address]. [place] [address] AND [employer] [facility] Lactic acid level, SEPSIS - Now and repeat 2x every 3 hours (01/06/2018 10:00 PM )Only the most recent of4 resultswithin the time period is included. Lactic acid 1.7 0.5 - 2.2 mmol/L [facility] OF PATHOLOGY AND [facility] Specimen Plasma specimen Performing Organization Address City/[facility] Phone Number [facility] DEPARTMENT OF PATHOLOGY [address] [place] [address]. [place] [address] AND [employer] [facility] Troponin (01/06/2018 12:15 AM)Only the most recent of3 resultswithin the time period is included. Troponin <0.30 0.00 - 0.30 ng/mL [facility] DEPARTMENT OF PATHOLOGY Comment: AND GENOMIC MEDICINE 0.11 - 1.49 ng/mlMay indicate increased risk of acute coronary syndrome. >=1.5 ng/mlConsistent with acute myocardial infarction. The diagnostic value of a single normal or non-diagnostic result is questionable.Serial samples at 2-6 hour intervals are required to rule out acute myocardial injury. Specimen Plasma specimen Performing Organization Address City/[facility]/Zipcode Phone Number [facility] OF PATHOLOGY [address] [place] [address]. [place] [address] AND [employer] Lactic acid level (01/05/2018 8:30 PM)Only the most recent of4 resultswithin the time period is included. Lactic acid 2.7 (H) 0.5 - 2.2 mmol/L [facility] DEPARTMENT OF PATHOLOGY AND [facility] Specimen Plasma specimen Performing Organization Address [facility] Phone Number [facility] DEPARTMENT OF PATHOLOGY [address] [place] [address]. [place] [address] AND [facility] Thyroid stimulating hormone (01/05/2018 5:02 PM) TSH 0.90 0.27 - 4.20 uIU/mL [facility] DEPARTMENT OF PATHOLOGY AND [facility] Specimen Plasma specimen Performing Organization Address [facility] Phone Number [facility] DEPARTMENT OF PATHOLOGY [address] [place] [address]. [place] [address] AND [facility] Magnesium level (01/05/2018 5:02 PM)Only the most recent of2 resultswithin the time period is included. Magnesium 1.6 1.6 - 2.6 mg/dL [facility] DEPARTMENT PATHOLOGY AND [facility] Specimen Plasma specimen Performing Organization Address [facility] Phone Number [facility] DEPARTMENT OF PATHOLOGY [address] [place] [address]. [place] [address] AND [facility] ECG 12 lead (01/05/2018 4:47 PM)Only the most recent of2 resultswithin the time period is included. Ventricular rate 145 [facility] Atrial rate 145 [facility] MD interval 152 [facility] QRSD interval 60 [facility] QT interval 250 [facility] QTC interval 388 [facility] P axis 1 27 [facility] QRS axis 1 -11 [facility] T wave axis 6 [facility] EKG impression Sinus tachycardia-Septal infarct (cited on or before 2017)-Possible Lateral infarct (cited on or before 05-JAN-2018)-Abnormal ECG-In automated comparison with ECG of 04-JAN-2018 00:24,-MD interva [facility] l has increased-QRS axis shifted right-Questionable change in initial forces of Septal leads-Inverted T waves have replaced nonspecific T wave abnormality in Inferior leads-Nonspecific T wave abnormality now evident in Lateral leads- Performing Organization Address [facility] Phone Number [facility] MUSE [address] [place] [address] CT Renal Stone Protocol (01/05/2018 3:30 PM) Narrative Performed At EXAMINATION:CT RENAL STONE PROTOCOL RADIANT CLINICAL HISTORY:PYELONEPHRITIS TECHNIQUE: Multiple axial images of the abdomen and pelvis were obtained without intravenous administration of iodinated contrast. Sagittal and coronal computerized reformatted images were also obtained. The lack of intravenous contrast reduces the sensitivity of detecting solid organ disease. CT imaging was performed with iterative reconstruction technique and/or automated exposure control to reduce radiation dose. COMPARISON:None. IMPRESSION: 1.Multifocal groundglass airspace opacities in the lung bases. Incompletely imaged on present study. 2.Normal liver. Cholecystectomy. Normal adrenals, spleen, and pancreas. 3.Nonspecific mild left perinephric stranding most prominent adjacent to the upper pole. Noncontrast appearance of the kidneys are otherwise unremarkable. No stones. No hydronephrosis. 4.Normal stomach and small bowel. Colonic diverticulosis without evidence of diverticulitis. Normal appendix. 5.The bladder is not fully distended but otherwise unremarkable. Normal uterus. No free fluid. 6.Abdominal and pelvic vasculature is within normal limits. 7.Mild degenerative changes in the lower thoracic spine. SUMMARY: 1.Nonspecific mild left perinephric stranding is normal on the upper pole. Given clinical history, query whether this could represent sequelae of pyelonephritis. 2.Multifocal groundglass airspace opacities in the lung bases. Incompletely imaged on present study. Possibly due to hypoinflation of the lungs but cannot rule out early pneumonitis/pneumonia. Dedicated chest imaging could provide further assessment. [facility]-[id number] Procedure Note Interface, Radiology Results Incoming - 01/05/2018 3:52 PM COAL [employer]TER EXAMINATION: CT RENAL STONE PROTOCOL CLINICAL HISTORY: PYELONEPHRITIS TECHNIQUE: Multiple axial images of the abdomen and pelvis were obtained without intravenous administration of iodinated contrast. Sagittal and coronal computerized reformatted images were also obtained. The lack of intravenous contrast reduces the sensitivity of detecting solid organ disease. CT imaging was performed with iterative reconstruction technique and/or automated exposure control to reduce radiation dose. COMPARISON: None. IMPRESSION: 1. Multifocal groundglass airspace opacities in the lung bases. Incompletely imaged on present study. 2. Normal liver. Cholecystectomy. Normal adrenals, spleen, and pancreas. 3. Nonspecific mild left perinephric stranding most prominent adjacent to the upper pole. Noncontrast appearance of the kidneys are otherwise unremarkable. No stones. No hydronephrosis. 4. Normal stomach and small bowel. Colonic diverticulosis without evidence of diverticulitis. Normal appendix. 5. The bladder is not fully distended but otherwise unremarkable. Normal uterus. No free fluid. 6. Abdominal and pelvic vasculature is within normal limits. 7. Mild degenerative changes in the lower thoracic spine. SUMMARY: 1. Nonspecific mild left perinephric stranding is normal on the upper pole. Given clinical history, query whether this could represent sequelae of pyelonephritis. 2. Multifocal groundglass airspace opacities in the lung bases. Incompletely imaged on present study. Possibly due to hypoinflation of the lungs but cannot rule out early pneumonitis/pneumonia. Dedicated chest imaging could provide further assessment. [facility]-[id number] Performing Organization Address City/[facility]/Zipcode Phone Number [facility] [address] [place] [address] Phosphorus level (01/04/2018 10:30 AM) Phosphorus 3.5 2.4 - 4.5 mg/dL [facility] DEPARTMENT OF PATHOLOGY AND GENOMIC MEDICINE Specimen Plasma specimen Performing Organization Address [facility] Facility[facility] Phone Number [facility] DEPARTMENT OF PATHOLOGY [address] [facility] [place] [address] AND [employer] MEDICINE Hemoglobin A1c (01/04/2018 10:30 AM) Hemoglobin A1C 9.3 (H) 4.0 - 6.0 % [facility] DEPARTMENT OF PATHOLOGY Comment: AND GENOMIC MEDICINE Less than 6% - Goal of therapy for Type II Diabetes Less than 7%-Goal of therapy for Type I Diabetes Less than 8%-Acceptable control for Type I or Type II Diabetes Greater than 8%-Unacceptable control; action indicated. ([id number]) Specimen Blood Performing Organization Address [facility] Facility[facility] Phone Number [facility] DEPARTMENT OF PATHOLOGY [address] [facility] [place] [address] AND [employer] MEDICINE ECG ED Preliminary Interpretation - NOT AN ORDER (01/04/2018 3:46 AM)Only the most recent of2 resultswithin the time period is included. Narrative Performed At Ron Roach DO 01/04/20183:46 AM ECG ED Preliminary Interpretation - Not an Order Performed by: RNO ROACH Authorized by: RON ROACH Interpretation: Interpretation: abnormal Rate: ECG rate:120 ECG rate assessment: tachycardic Rhythm: Rhythm: sinus tachycardia Ectopy: Ectopy: none QRS: QRS axis:Normal QRS intervals:Normal Conduction: Conduction: normal ST segments: ST segments:Normal T waves: T waves: normal Blood culture, aerobic & anaerobic (01/04/2018 3:10 AM)Only the most recent of2 resultswithin the time period is included. Blood culture isolate No growth after 5 days of incubation. [facility] DEPARTMENT OF Comment: PATHOLOGY AND GENOMIC Specimen Information MEDICINE Specimen Source: Blood Specimen Site: Antecubital, right Specimen Blood - Antecubital, right Performing Organization Address [facility] Phone Number [facility] DEPARTMENT OF PATHOLOGY AND [address] [place] [address] GENOMIC MEDICINE XR Chest 2 Vw (01/04/2018 1:52 AM) Narrative Performed At EXAMINATION: XR CHEST 2 VW RADIANT CLINICAL HISTORY: Fever COMPARISON:None. IMPRESSION: Mildly decreased lung volumes. No focal or confluent airspace consolidation. No pleural effusion or pneumothorax. The cardiomediastinal silhouette is normal. No acute osseous abnormalities. [facility]-[id number] Procedure Note Hm Interface, Radiology Results Incoming - 01/04/2018 2:04 AM [employer] EXAMINATION: XR CHEST 2 VW CLINICAL HISTORY: Fever COMPARISON: None. IMPRESSION: Mildly decreased lung volumes. No focal or confluent airspace consolidation. No pleural effusion or pneumothorax. The cardiomediastinal silhouette is normal. No acute osseous abnormalities. [facility]-[id number] Performing Organization Address [facility] Phone Number [facility] [address] [place] [address] Respiratory pathogen panel (01/04/2018 12:55 AM) Respiratory pathogen Negative for all pathogens tested: [facility] DEPARTMENT OF panel Negative for Adenovirus PATHOLOGY AND GENOMIC Negative for Coronavirus HKU1 MEDICINE Negative for Coronavirus NL63 Negative for Coronavirus 229E Negative for Coronavirus OC43 Negative for Human Metapneumovirus Negative for Rhinovirus/Enterovirus Negative for Influenza A Negative for Influenza A/H1 Negative for Influenza A/H3 Negative for Influenza A/H1-2009 Negative for Influenza B Negative for Parainfluenza Virus 1 Negative for Parainfluenza Virus 2 Negative for Parainfluenza Virus 3 Negative for Parainfluenza Virus 4 Negative for Respiratory Syncytial Virus Negative for Bordetella pertussis Negative for Chlamydophila pneumoniae Negative for Mycoplasma pneumoniae This real-time PCR assay detects the presence of nucleic acids (RNA or DNA) for the respiratory pathogens listed. A result of "Not-detected" does not exclude the possibility of the presence of one or more pathogens at concentrations less than the detectable limits of the assay. Comment: Specimen Information Specimen Source: Nares Specimen Site: Left Specimen Nares - Left Performing Organization Address City/[facility] Phone Number [facility] DEPARTMENT OF PATHOLOGY AND [address] [place] [address] [facility] MEDICINE Influenza antigen (01/04/2018 12:55 AM) Influenza antigen Negative for Influenza A/B antigen. [facility] DEPARTMENT OF PATHOLOGY Comment: AND GENOMIC MEDICINE Specimen Information Specimen Source: Nares Specimen Site: Left Specimen Nares - Left Performing Organization Address [facility] Facility[facility] Phone Number [facility] DEPARTMENT OF PATHOLOGY [address] [place] [address] AND [facility] Salicylate level (01/04/2018 12:50 AM) Salicylate <0.4 (L) 3.0 - 30.0 mg/dL [facility] DEPARTMENT OF PATHOLOGY AND GENOMIC MEDICINE Specimen Plasma specimen Performing Organization Address [facility] Phone Number [facility] DEPARTMENT OF PATHOLOGY [address] [place] [address] AND [facility] Urinalysis screen and microscopy, with reflex to culture (01/04/2018 12:48 AM) Specimen site Clean catch [facility] DEPARTMENT OF PATHOLOGY AND GENOMIC MEDICINE Color, UA Yellow [facility] DEPARTMENT OF PATHOLOGY AND GENOMIC MEDICINE Appearance, UA Cloudy [facility] DEPARTMENT OF PATHOLOGY AND GENOMIC MEDICINE Specific gravity, UA 1.021 1.001 - 1.[address] [facility] DEPARTMENT OF PATHOLOGY AND GENOMIC MEDICINE pH, UA 5.0 5.0 - 9.[address] [facility] DEPARTMENT OF PATHOLOGY AND GENOMIC MEDICINE Protein, UA 1+ (A) Negative [facility] DEPARTMENT OF PATHOLOGY AND GENOMIC MEDICINE Glucose, UA 3+ (A) Negative [facility] DEPARTMENT OF PATHOLOGY AND GENOMIC MEDICINE Ketones, UA Negative Negative [facility] DEPARTMENT OF PATHOLOGY AND GENOMIC MEDICINE Bilirubin, UA Negative Negative [facility] DEPARTMENT OF PATHOLOGY AND GENOMIC MEDICINE Blood, UA Moderate (A) Negative [facility] DEPARTMENT OF PATHOLOGY AND GENOMIC MEDICINE Nitrite, UA Positive (A) Negative [facility] DEPARTMENT OF PATHOLOGY AND GENOMIC MEDICINE Urobilinogen, UA <2.0 <2.0 E.U./dL [facility] DEPARTMENT OF PATHOLOGY AND GENOMIC MEDICINE Leukocyte esterase, UA Large (A) Negative [facility] DEPARTMENT OF PATHOLOGY AND GENOMIC MEDICINE Epithelial cells, UA 1 /HPF [facility] DEPARTMENT OF PATHOLOGY AND GENOMIC MEDICINE WBC, UA >200 (H) 0 - 4 /HPF [facility] DEPARTMENT OF PATHOLOGY AND GENOMIC MEDICINE RBC, UA 5 (H) 0 - 2 /HPF [facility] DEPARTMENT OF PATHOLOGY AND GENOMIC MEDICINE Bacteria, UA Many (A) None seen [facility] DEPARTMENT OF PATHOLOGY AND GENOMIC MEDICINE WBC clumps, UA Few (A) [facility] DEPARTMENT OF PATHOLOGY AND GENOMIC MEDICINE Yeast, UA None seen [facility] DEPARTMENT OF PATHOLOGY AND GENOMIC MEDICINE Yeast with pseudohyphae, UA None seen [facility] DEPARTMENT OF PATHOLOGY AND GENOMIC MEDICINE Specimen Urine Performing Organization Address City/[facility] Facility[facility] Phone Number [facility] DEPARTMENT OF PATHOLOGY [id number] [place] [address] AND [facility] hCG qualitative, urine screen (01/04/2018 12:48 AM) hCG qualitative, urine NegativeComment: [facility] DEPARTMENT OF Sensitivity of HCG test: 25 PATHOLOGY AND GENOMIC mIU/ml MEDICINE Specimen Urine Performing Organization Address City/[facility]/Zipcode Phone Number [facility] DEPARTMENT OF PATHOLOGY [id number] [place] [address] AND [facility] Gram stain (01/04/2018 12:48 AM) Gram stain result Occasional WBC's [facility] DEPARTMENT OF PATHOLOGY Moderate Gram negative rods AND GENOMIC MEDICINE Occasional Gram positive rods Comment: Specimen Information Specimen Source: Urine Specimen Site: Clean catch Specimen Urine Performing Organization Address City/State/Zipcode Phone Number [facility] DEPARTMENT OF PATHOLOGY AND [address] [place] [address] [facility] MEDICINE Urine culture (01/04/2018 12:48 AM) Urine culture isolate Escherichia coli [facility] DEPARTMENT OF >10-5 cfu/ml PATHOLOGY AND GENOMIC This isolate is a content producer of ESBL (extended spectrum beta MEDICINE lactamase).This organism may be clinically resistant to penicillins, cephalosporins or aztreonam despite apparent in vitro susceptibility to some of these agents. (A) Comment: Specimen Information Specimen Source: Urine Specimen Site: Clean catch Urine culture isolate Mixed Gram positive joe [facility] DEPARTMENT OF 10-3 cfu/ml PATHOLOGY AND GENOMIC (A) MEDICINE Specimen Urine Organism Antibiotic Method Susceptibility Escherichia coli Ampicillin PREETI >16 mcg/mL: Resistant Escherichia coli Amoxicillin/Clavulanate PREETI 16/8 mcg/mL: Resistant Escherichia coli Amikacin PREETI <=4 mcg/mL: Susceptible Escherichia coli Aztreonam PREETI >16 mcg/mL: Resistant Escherichia coli Ceftazidime PREETI 8 mcg/mL: Resistant Escherichia coli Ciprofloxacin PREETI >2 mcg/mL: Resistant Escherichia coli Ceftriaxone PREETI >32 mcg/mL: Resistant Escherichia coli Cefuroxime Sodium PREETI >16 mcg/mL: Resistant Escherichia coli Cefazolin PREETI >32 mcg/mL: Resistant Escherichia coli Cefipime PREETI 16 mcg/mL: Resistant Escherichia coli Nitrofurantoin PREETI <=16 mcg/mL: Susceptible Escherichia coli Gentamicin PREETI >8 mcg/mL: Resistant Escherichia coli Imipenem PREETI <=0.25 mcg/mL: Susceptible Escherichia coli Levofloxacin PREETI >4 mcg/mL: Resistant Escherichia coli Tobramycin PREETI >8 mcg/mL: Resistant Escherichia coli Ampicillin/Sulbactam PREETI >16/8 mcg/mL: Resistant Escherichia coli Trimethoprim/Sulfamethoxazole PREETI <=0.5/9.5 mcg/mL: Susceptible Escherichia coli Tetracycline PREETI >8 mcg/mL: Resistant Escherichia coli Ertapenem PREETI <=0.125 mcg/mL: Susceptible Escherichia coli Tigecycline PREETI <=0.5 mcg/mL: Susceptible Escherichia coli Cefotaxime PREETI mcg/mL: Resistant Escherichia coli Cephalothin PREETI mcg/mL: Resistant Escherichia coli Fosfomycin KB mm: Susceptible Performing Organization Address City/State/Zipcode Phone Number [facility] DEPARTMENT OF PATHOLOGY AND [address] [place] [address] GENOMIC MEDICINE after 06/17/2017 Insurance Payer Benefit Plan / Group Subscriber ID Type Phone Address [employer] MEDICARE A[employer]NA MEDICARE HMO/PPO MCR xxxxxxxx HMO [facility]AEANN xxxxxxxxx O [phone] [place], [place] [address]
[2018-06-18 16:35] LABS: Absolute Monocytes 0.5 K/uL (0.1-1.3); Absolute Neutrophil 6.5 K/uL (1.8-8.0); Basophils % 0.9 % (0-1.3); Eosinophils % 0.4 % (0-4.4); Hematocrit 40.2 % (36.0-45.0); Lymphocytes % 35.7 % (15.3-44.8); MCH 33.9 pg (27.0-35.0); MCV 98.8 fL (80-100); Monocytes % 4.8 % (3.3-12.3); RBC Red Blood Cell Count 4.06 M/uL (3.86-4.86)
[2018-06-18 16:37] LABS: Urine Blood NEGATIVE (NEG); Urine Glucose 2+ (NEG); Urine Protein NEGATIVE (NEG); Urine pH 6.5 (5.0-7.0)
[2018-06-18 16:37] LABS: Urine Bacteria <20 /HPF (<20); Urine Culture Reflex Order NOT NEEDED; Urine RBC <5 /HPF (NONE SEEN)
[2018-06-18] MEDS ORDERED: ONDANSETRON 4 MG/2 ML VIAL ONE (16:51)
[2018-06-18] MEDS ORDERED: MEPERIDINE HCL 25 MG/0.5 ML ONE (16:51)
[2018-06-18 17:18] LABS: ALT/SGPT 58 U/L (12-78); AST/SGOT 22 U/L (15-37); Albumin 3.4 g/dL (3.4-5.0); Alkaline Phosphatase 69 U/L (45-117); BUN Blood Urea Nitrogen 10 mg/dL (7-18); Bicarbonate 28 mmol/L (21-32); Bilirubin Direct 0.1 mg/dL (0-0.2); Bilirubin Total 0.4 mg/dL (0.2-1.0); Glucose Level 182 mg/dL (74-106); Lipase 97 U/L (73-393); Potassium 3.7 mmol/L (3.5-5.1); Protein, Total 7.2 g/dL (6.4-8.2); Sodium Level 143 mmol/L (136-145)
--- NOTE | 2018-06-18 17:47 | EDPHYS ---
Physician Documentation [facility] Name: Mckenna Haney Age: 33 yrs Sex: Female : 1985 Arrival Date: 06/18/2018 Time: 13:22 Bed 8 Private MD: Out, [facility] ED Physician Wade Retana HPI: 06/18 16:45 This 33 yrs old Female presents to ER via Ambulatory with complaints of jr8 Abdominal Pain, Headache. 16:45 The patient presents with abdominal pain in the upper abdomen. Onset: The jr8 symptoms/episode began/occurred acutely, today. The symptoms radiate to right back. Associated signs and symptoms: Pertinent positives: nausea, vomiting, and diarrhea. The symptoms are described as sharp. Modifying factors: The symptoms are alleviated by nothing, the symptoms are aggravated by nothing. Severity of pain: At its worst the pain was moderate in the emergency department the pain is unchanged. The patient has not experienced similar symptoms in the past. The patient has not recently seen a physician. stated that she is dizzy and has headache now as well . 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 LMP 01/2018 hb Historical: - Allergies: 13:32 Ibuprofen (Hives); hb - Home Meds: 13:32 metformin 1,000 mg Oral tab 1 tab 2 times per day [Active]; atorvastatin 10 mg oral tab hb 1 tab once daily [Active]; lisinopril 2.5 mg Oral tab 1 tab once daily [Active]; montelukast 10 mg oral tab 1 tab once daily [Active]; Januvia 100 mg oral tab 1 tab once daily [Active]; Vitamin D3 oral oral [Active]; metronidazole 500 mg Oral tab 2 times per day [Active]; Ondansetron Oral [Active]; - PMHx: 13:32 Diabetes - NIDDM; Hypertension; hb - PSHx: 13:32 Cholecystectomy; hb - Immunization history:: Adult Immunizations up to date. - Social history:: Smoking status: Patient/guardian denies using tobacco. - Ebola Screening: : No symptoms or risks identified at this time. ROS: 16:45 Eyes: Negative for injury, pain, redness, and discharge, ENT: Negative for injury, jr8 pain, and discharge, Neck: Negative for injury, pain, and swelling, Cardiovascular: Negative for chest pain, palpitations, and edema, Respiratory: Negative for shortness of breath, cough, wheezing, and pleuritic chest pain, Back: Negative for injury and pain, MS/Extremity: Negative for injury and deformity, Skin: Negative for injury, rash, and discoloration. 16:45 Abdomen/GI: Positive for abdominal pain, nausea, vomiting, and diarrhea, Negative for abdominal distension, anorexia, dysphagia, hematemesis, black/tarry stool, rectal pain, rectal bleeding, bowel incontinence, flatulence. 16:45 Neuro: Positive for dizziness, headache, Negative for altered mental status, gait disturbance, hearing loss, loss of consciousness, numbness, seizure activity, speech changes, syncope, near syncope, tingling, tinnitus, tremor, visual changes, weakness. Exam: 16:45 Eyes: Pupils equal round and reactive to light, extra-ocular motions intact. Lids and jr8 lashes normal. Conjunctiva and sclera are non-icteric and not injected. Cornea within normal limits. Periorbital areas with no swelling, redness, or edema. ENT: Nares patent. No nasal discharge, no septal abnormalities noted. Tympanic membranes are normal and external auditory canals are clear. Oropharynx with no redness, swelling, or masses, exudates, or evidence of obstruction, uvula midline. Mucous membranes moist. Neck: Trachea midline, no thyromegaly or masses palpated, and no cervical lymphadenopathy. Supple, full range of motion without nuchal rigidity, or vertebral point tenderness. No Meningismus. Cardiovascular: Regular rate and rhythm with a normal S1 and S2. No gallops, murmurs, or rubs. Normal PMI, no JVD. No pulse deficits. Respiratory: Lungs have equal breath sounds bilaterally, clear to auscultation and percussion. No rales, rhonchi or wheezes noted. No increased work of breathing, no retractions or nasal flaring. Back: No spinal tenderness. No costovertebral tenderness. Full range of motion. Skin: Warm, dry with normal turgor. Normal color with no rashes, no lesions, and no evidence of cellulitis. MS/ Extremity: Pulses equal, no cyanosis. Neurovascular intact. Full, normal range of motion. Neuro: Awake and alert, GCS 15, oriented to person, place, time, and situation. Cranial nerves II-XII grossly intact. Motor strength 5/5 in all extremities. Sensory grossly intact. Cerebellar exam normal. Normal gait. 16:45 Abdomen/GI: Inspection: obese Bowel sounds: active, all quadrants, Palpation: soft, in all quadrants, mild abdominal tenderness, in the epigastric area, mass, is not appreciated, rebound tenderness, is not appreciated, voluntary guarding, is not appreciated, involuntary guarding, is not appreciated, no appreciated organomegaly, Indicators: McBurney's point is not tender, Sullivan's sign is negative, Rovsing's sign is negative, Liver: no appreciated palpable abnormalities, tenderness. Vital Signs: 13:28 BP 141 / 94; Pulse 81; Resp 16; Temp 97.8(TE); Pulse Ox 98% ; Pain 10/10; hb 17:04 BP 126 / 76; Pulse 75; Resp 18; Pulse Ox 96% ; sv MDM: 16:19 Patient medically screened. [facility] 17:46 Differential diagnosis: bowel obstruction, diverticulitis, gastritis, gastroesophageal jr8 reflux disease, non-specific abd pain, pancreatitis, Peptic Ulcer Disease, Perf. Duodenal Ulcer, Perf. Gastric Ulcer. Data reviewed: vital signs, nurses notes, lab test result(s), and as a result, I will discharge patient. Data interpreted: Pulse oximetry: on room air is 96 %. Interpretation: normal. Counseling: I had a detailed discussion with the patient and/or guardian regarding: the historical points, exam findings, and any diagnostic results supporting the discharge/admit diagnosis, lab results, the need for outpatient follow up, a family practitioner, a coding and reimbursement specialist, to return to the emergency department if symptoms worsen or persist or if there are any questions or concerns that arise at home. Response to treatment: the patient's symptoms have resolved after treatment, patient is well hydrated. Special discussion: Based on the patient's Hx, exam, and Dx evaluation, there is no indication for emergent surgery or inpatient Tx. It is understood by the patient/guardian that if the Sx's persist or worsen they need to return immediately for re-evaluation. 06/18 13:37 Order name: Urine Culture [facility] 06/18 13:37 Order name: Urine Microscopic Only; Complete Time: 16:40 [facility] 06/18 16:20 Order name: Basic Metabolic Panel; Complete Time: 17:19 jr8 06/18 16:20 Order name: CBC with Diff; Complete Time: 16:52 jr8 07/23 16:20 Order name: Creatinine for Radiology; Complete Time: 17:15 06/18 16:20 Order name: Hepatic Function; Complete Time: 17:19 06/18 13:37 Order name: Urine Test (obtain specimen); Complete Time: 15:46 snw 06/18 13:37 Order name: Urine Dipstick-Ancillary (obtain specimen); Complete Time: 15:46 snw 06/18 16:20 Order name: Lipase; Complete Time: 17:19 06/18 16:20 Order name: IV Saline Lock; Complete Time: 16:32 jr8 06/18 16:31 Order name: Urine Dipstick--Ancillary (enter results); Complete Time: 16:40 ag 06/18 16:31 Order name: Urine --Ancillary (enter results); Complete Time: 16:40 ag 06/18 16:20 Order name: Labs collected and sent; Complete Time: 16:32 Administered Medications: 16:50 Drug: Zofran 4 mg Route: IVP; Site: right antecubital; sv 17:15 Follow up: Response: No adverse reaction sv 16:53 Drug: Demerol 25 mg Route: IVP; Site: right antecubital; sv 17:15 Follow up: Response: No adverse reaction sv Disposition: 06/19 09:41 Co-signature as Attending Physician, Wade Retana MD I agree with the assessment and [facility] plan of care. Disposition: 06/18/18 17:47 Discharged to Home. Impression: Abdominal and pelvic pain, Gastroenteritis. - Condition is Stable. - Discharge Instructions: Abdominal Pain, Adult, Viral Gastroenteritis, Adult. - Prescriptions for Bentyl 20 mg Oral Tablet - take 1 tablet by ORAL route every 6 hours As needed; 20 tablet. Zofran 4 mg Oral Tablet - take 1 tablet by ORAL route every 12 hours As needed; 20 tablet. - Medication Reconciliation Form, Thank You Letter, Antibiotic Education, Prescription Opioid Use form. - Follow up: Private Physician; When: 2 - 3 days; Reason: Recheck today's complaints, Continuance of care, Re-evaluation by your physician. - Problem is new. - Symptoms have improved. Signatures: Dispatcher [facility] rTeasure Lombardi RN RN sv Anderson, Corey, MD MD cha Therrien, Sabrina, [employer]GE MANAGER-C COCKTAIL LOUNGE MANAGER-Csnw Jeffy Slater PA PA jr8 Domitila Banks, RN RN Corrections: (The following items were deleted from the chart) 06/18 18:01 17:47 06/18/2018 17:47 Discharged to Home. Impression: Abdominal and pelvic pain; sv Gastroenteritis. Condition is Stable. Forms are Medication Reconciliation Form, Thank You Letter, Antibiotic Education, Prescription Opioid Use. Follow up: Private Physician; When: 2 - 3 days; Reason: Recheck today's complaints, Continuance of care, Re-evaluation by your physician. Problem is new. Symptoms have improved. jr8
--- NOTE | 2018-06-18 17:47 | ER ---
Nurse's Notes [facility] Name: Mckenna Haney Age: 33 yrs Sex: Female : 1985 Arrival Date: 06/18/2018 Time: 13:22 Bed 8 Private MD: Out, [facility] Diagnosis: Abdominal and pelvic pain;Gastroenteritis Presentation: 06/18 13:27 Presenting complaint: Patient states: Headache, diarrhea, and abdominal pain since this morning. Transition of care: patient was not received from another setting of care. Onset of symptoms was June 18, 2018. Risk Assessment: Do you want to hurt yourself or someone else? Patient reports no desire to harm self or others. Initial Sepsis Screen: Does the patient meet any 2 criteria? No. Patient's initial sepsis screen is negative. Does the patient have a suspected source of infection? No. Patient's initial sepsis screen is negative. Care prior to arrival: None. 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 [facility] 01/2018 hb Historical: - Allergies: 13:32 Ibuprofen (Hives); hb - Home Meds: 13:32 metformin 1,000 mg Oral tab 1 tab 2 times per day [Active]; atorvastatin 10 mg oral tab hb 1 tab once daily [Active]; lisinopril 2.5 mg Oral tab 1 tab once daily [Active]; montelukast 10 mg oral tab 1 tab once daily [Active]; Januvia 100 mg oral tab 1 tab once daily [Active]; Vitamin D3 oral oral [Active]; metronidazole 500 mg Oral tab 2 times per day [Active]; Ondansetron Oral [Active]; - PMHx: 13:32 Diabetes - NIDDM; Hypertension; hb - PSHx: 13:32 Cholecystectomy; hb - Immunization history:: Adult Immunizations up to date. - Social history:: Smoking status: Patient/guardian denies using tobacco. - Ebola Screening: : No symptoms or risks identified at this time. Screenin:20 Abuse screen: Denies threats or abuse. Denies injuries from another. Nutritional sv screening: No deficits noted. Tuberculosis screening: No symptoms or risk factors identified. Fall Risk None identified. Assessment: 16:20 General: Appears in no apparent distress. uncomfortable, obese, Behavior is calm, sv cooperative, appropriate for age. Pain: Complains of pain in epigastric area Pain currently is 10 out of 10 on a pain scale. Pain began today Is continuous. Neuro: Level of Consciousness is awake, alert, obeys commands, Oriented to person, place, time, situation, Moves all extremities. Full function Gait is steady. Respiratory: Respiratory effort is even, unlabored, Respiratory pattern is regular, symmetrical. GI: Abdomen is obese, Bowel sounds present X 4 quads. Abd is soft X 4 quads Abdomen is tender to palpation in epigastric area and right upper quadrant Reports diarrhea, nausea, vomiting. Derm: Skin is pink, warm \T\ dry. Musculoskeletal: Range of motion: intact in all extremities. 16:50 Reassessment: Patient appears in no apparent distress at this time. No changes from sv previously documented assessment. Patient and/or family updated on plan of care and expected duration. Pain level reassessed. Patient is alert, oriented x 3, equal unlabored respirations, skin warm/dry/pink. 18:00 Reassessment: Patient appears in no apparent distress at this time. Patient and/or sv family updated on plan of care and expected duration. Pain level reassessed. Patient is alert, oriented x 3, equal unlabored respirations, skin warm/dry/pink. Vital Signs: 13:28 BP 141 / 94; Pulse 81; Resp 16; Temp 97.8(TE); Pulse Ox 98% ; Pain 10/10; hb 17:04 BP 126 / 76; Pulse 75; Resp 18; Pulse Ox 96% ; sv ED Course: 13:22 Patient arrived in ED. sb2 13:23 Out, [facility] is Private Physician. sb2 13:28 Triage completed. hb 13:28 Arm band placed on right wrist. hb 15:46 Urine Culture Sent. mh5 15:46 Urine Microscopic Only Sent. mh5 15:47 Urine collected: clean catch specimen, clear. mh5 16:19 Jeffy Slater PA is PHCP. jr8 16:19 Wade Retana MD is Attending Physician. jr8 16:20 Patient has correct armband on for positive identification. Placed in gown. Bed in low sv position. Call light in reach. Pulse ox on. NIBP on. Door closed. Warm blanket given. Head of bed elevated. 16:21 Daya, Treasure, RN is Primary Nurse. sv 16:25 Initial lab(s) drawn, by me, sent to lab. Inserted saline lock: 20 gauge in right sv antecubital area, using aseptic technique. Blood collected. Flushed right antecubital with 5 ml normal saline. 18:00 No provider procedures requiring assistance completed. IV discontinued, intact, sv bleeding controlled, No redness/swelling at site. Pressure dressing applied. 18:56 Primary Nurse role handed off by Treasure Stapleton RN sv Administered Medications: 16:50 Drug: Zofran 4 mg Route: IVP; Site: right antecubital; sv 17:15 Follow up: Response: No adverse reaction sv 16:53 Drug: Demerol 25 mg Route: IVP; Site: right antecubital; sv 17:15 Follow up: Response: No adverse reaction sv Outcome: 17:47 Discharge ordered by MD. willett 18:00 Discharged to home ambulatory. sv 18:00 Condition: stable 18:00 Discharge instructions given to patient, Instructed on discharge instructions, follow up and referral plans. medication usage, Demonstrated understanding of instructions, follow-up care, medications, Prescriptions given X 2. 18:01 Patient left the ED. sv Addendum: 06/21/2018 12:18 Addendum: Culture Results: Positive urine culture. Phone call Attempt #1 spoke with s s patient who reports she followed up with PCP. Culture reports faxed to Dr. Cm Troy per request of patient. Signatures: Treasure Stapleton RN RN sv Smirch, Shelby, RN RN ss Roszak, Josh, PA PA jr8 Domitila Banks RN RN hb Martinez, Maria [facility] Diana Spence 2
== END 2018-06-18 18:01 | disposition home or self-care (01) ==
LOC: ER 13:21
DX: K52.9 Noninfective gastroenteritis and colitis, unspecified (principal); R51 Headache; E11.9 Type 2 diabetes mellitus without complications; I10 Essential (primary) hypertension; Z88.8 Allergy status to other drugs, medicaments and biological substances
CPT/HCPCS: 36415; 80048; 80076; 81025; 83690; 85025; 87077 ×2; 87086; 87088; 87186 ×2; 96374; 96375; 99284; J2175; J2405; 81003; 81015

== ENCOUNTER 2018-08-06 18:44 | Emergency (ER) | payer MEDICARE ==
--- OUTSIDE RECORDS SUMMARY | 2018-08-06 18:47 | XMS REPORT | Clinical Summary ---
:1985 Author Organization [facility] Address [address] [place] [address] Care Team Providers Name Role Phone Miranda [...] cystitis with hematuria (Primary Dx); 01/09/2018 Medicine Ron, DO Fever, unspecified fever cause; Kandala, Dehydration; MD Edgardo Leukocytosis, unspecified type Juvencio Monsalve MD Sodhi, Nidhi, MD after 08/05/2017 Immunizations Name Dates Previously Given Next Due FLUCELVAX QUAD PF (0.5mL syringe) 01/09/2018 Social History Tobacco Use Types Packs/Day Years Used Date Never Smoker Smokeless Tobacco: Never Used Alcohol Use Drinks/Week oz/Week Comments No Sex Assigned at Date Recorded Not on file Last Filed Vital Signs Vital Sign Reading Time Taken Blood Pressure 109/62 01/09/2018 12:13 PM [employer] Pulse 105 01/09/2018 12:13 PM [employer] Temperature 36.8 C (98.2 F) 01/09/2018 12:13 PM [employer] Respiratory Rate 18 01/09/2018 12:13 PM [employer] Oxygen Saturation 94% 01/09/2018 12:13 PM [employer] Inhaled Oxygen Concentration - - Weight 107 kg (235 lb 12.8 oz) 01/04/2018 6:13 AM [employer] Height 162.6 cm (5' 4") 01/04/2018 12:40 AM [employer] Body Mass Index 40.47 01/04/2018 6:13 AM [employer] Plan of Treatment Health Maintenance Due Date Last Done Comments CERVICAL CANCER SCREENING 2008 INFLUENZA VACCINE 06/27/2018 01/09/2018 Procedures Procedure Name Priority Date/Time Associated Comments Diagnosis POC GLUCOSE Routine 01/09/2018 12:14 Results for this PM [employer] procedure are in the results section. POC GLUCOSE Routine 01/09/2018 8:49 Results for this AM [employer] procedure are in the results section. POC GLUCOSE Routine 01/08/2018 3:35 Results for this PM [employer] procedure are in the results section. POC GLUCOSE Routine 01/08/2018 12:08 Results for this PM [employer] procedure are in the results section. US GUIDED VASCULAR Routine 01/08/2018 9:42 Results for this ACCESS AM [employer] procedure are in the results section. IR PICC PLACEMENT Routine 01/08/2018 9:42 Results for this AM [employer] procedure are in the results section. POC GLUCOSE Routine 01/08/2018 7:36 Results for this AM [employer] procedure are in the results section. ESTIMATED GFR Routine 01/08/2018 5:00 Results for this AM [employer] procedure are in the results section. PROTHROMBIN TIME WITH Routine 01/08/2018 5:00 Results for this INR AM [employer] procedure are in the results section. COMPREHENSIVE METABOLIC Routine 01/08/2018 5:00 Results for this PANEL AM [employer] procedure are in the results section. HC COMPLETE BLD COUNT Routine 01/08/2018 5:00 Results for this W/AUTO DIFF AM [employer] procedure are in the results section. POC GLUCOSE Routine 01/07/2018 9:01 Results for this PM [employer] procedure are in the results section. POC GLUCOSE Routine 01/07/2018 4:41 Results for this PM [employer] procedure are in the results section. POC GLUCOSE Routine 01/07/2018 12:24 Results for this PM [employer] procedure are in the results section. POC GLUCOSE Routine 01/07/2018 7:52 Results for this AM [employer] procedure are in the results section. ESTIMATED GFR Routine 01/07/2018 5:45 Results for this AM [employer] procedure are in the results section. BASIC METABOLIC PANEL Routine 01/07/2018 5:45 Results for this AM [employer] procedure are in the results section. HC COMPLETE BLD COUNT Routine 01/07/2018 5:45 Results for this W/AUTO DIFF AM [employer] procedure are in the results section. POC GLUCOSE Routine 01/07/2018 5:35 Results for this AM [employer] procedure are in the results section. LACTIC ACID LEVEL, Timed 01/06/2018 10:00 Results for this SEPSIS - NOW AND REPEAT PM [employer] procedure are in 2X EVERY 3 HOURS the results section. POC GLUCOSE Routine 01/06/2018 8:54 Results for this PM [employer] procedure are in the results section. LACTIC ACID LEVEL, Timed 01/06/2018 5:00 Results for this SEPSIS - NOW AND REPEAT PM [employer] procedure are in 2X EVERY 3 HOURS the results section. POC GLUCOSE Routine 01/06/2018 3:53 Results for this PM [employer] procedure are in the results section. LACTIC ACID LEVEL, Timed 01/06/2018 1:55 Results for this SEPSIS - NOW AND REPEAT PM [employer] procedure are in 2X EVERY 3 HOURS the results section. POC GLUCOSE Routine 01/06/2018 11:20 Results for this AM [employer] procedure are in the results section. POC GLUCOSE Routine 01/06/2018 7:58 Results for this AM [employer] procedure are in the results section. ESTIMATED GFR Routine 01/06/2018 5:34 Results for this AM [employer] procedure are in the results section. COMPREHENSIVE METABOLIC Routine 01/06/2018 5:34 Results for this PANEL AM [employer] procedure are in the results section. HC COMPLETE BLD COUNT Routine 01/06/2018 5:34 Results for this W/AUTO DIFF AM [employer] procedure are in the results section. POC GLUCOSE Routine 01/06/2018 5:24 Results for this AM [employer] procedure are in the results section. TROPONIN Timed 01/06/2018 12:15 Results for this AM [employer] procedure are in the results section. LACTIC ACID LEVEL, Timed 01/05/2018 11:40 Results for this SEPSIS - NOW AND REPEAT PM [employer] procedure are in 2X EVERY 3 HOURS the results section. TROPONIN Timed 01/05/2018 8:30 Results for this PM [employer] procedure are in the results section. LACTIC ACID LEVEL Timed 01/05/2018 8:30 Results for this PM [employer] procedure are in the results section. ESTIMATED GFR STAT 01/05/2018 5:02 Results for this PM [employer] procedure are in the results section. THYROID STIMULATING STAT 01/05/2018 5:02 Results for this HORMONE PM [employer] procedure are in the results section. TROPONIN Timed 01/05/2018 5:02 Results for this PM [employer] procedure are in the results section. MAGNESIUM LEVEL STAT 01/05/2018 5:02 Results for this PM [employer] procedure are in the results section. BASIC METABOLIC PANEL STAT 01/05/2018 5:02 Results for this PM [employer] procedure are in the results section. LACTIC ACID LEVEL STAT 01/05/2018 5:00 Results for this PM [employer] procedure are in the results section. POC GLUCOSE Routine 01/05/2018 4:49 Results for this PM [employer] procedure are in the results section. ECG 12-LEAD Routine 01/05/2018 4:47 Results for this PM [employer] procedure are in the results section. CT RENAL STONE PROTOCOL Routine 01/05/2018 3:30 Results for this PM [employer] procedure are in the results section. POC GLUCOSE Routine 01/05/2018 12:11 Results for this PM [employer] procedure are in the results section. POC GLUCOSE Routine 01/05/2018 7:47 Results for this AM [employer] procedure are in the results section. ESTIMATED GFR Routine 01/05/2018 5:25 Results for this AM [employer] procedure are in the results section. COMPREHENSIVE METABOLIC Routine 01/05/2018 5:25 Results for this PANEL AM [employer] procedure are in the results section. HC COMPLETE BLD COUNT Routine 01/05/2018 5:25 Results for this W/AUTO DIFF AM [employer] procedure are in the results section. POC GLUCOSE Routine 01/04/2018 8:39 Results for this PM [employer] procedure are in the results section. POC GLUCOSE Routine 01/04/2018 4:53 Results for this PM [employer] procedure are in the results section. POC GLUCOSE Routine 01/04/2018 2:30 Results for this PM [employer] procedure are in the results section. POC GLUCOSE Routine 01/04/2018 12:02 Results for this PM [employer] procedure are in the results section. ESTIMATED GFR STAT 01/04/2018 10:30 Results for this AM [employer] procedure are in the results section. HEMOGLOBIN A1C STAT 01/04/2018 10:30 Results for this AM [employer] procedure are in the results section. PHOSPHORUS LEVEL STAT 01/04/2018 10:30 Results for this AM [employer] procedure are in the results section. MAGNESIUM LEVEL STAT 01/04/2018 10:30 Results for this AM [employer] procedure are in the results section. LACTIC ACID LEVEL STAT 01/04/2018 10:30 Results for this AM [employer] procedure are in the results section. HC COMPLETE BLD COUNT STAT 01/04/2018 10:30 Results for this W/AUTO DIFF AM [employer] procedure are in the results section. BASIC METABOLIC PANEL STAT 01/04/2018 10:30 Results for this AM [employer] procedure are in the results section. POC GLUCOSE Routine 01/04/2018 5:27 Results for this AM [employer] procedure are in the results section. ECG ED PRELIMINARY Routine 01/04/2018 3:46 Results for this INTERPRETATION AM [employer] procedure are in the results section. ECG ED PRELIMINARY Routine 01/04/2018 3:46 Results for this INTERPRETATION AM [employer] procedure are in the results section. BLOOD CULTURE, AEROBIC Routine 01/04/2018 3:10 Results for this & ANAEROBIC AM [employer] procedure are in the results section. LACTIC ACID LEVEL Routine 01/04/2018 3:05 Results for this AM [employer] procedure are in the results section. XR CHEST 2 VW STAT 01/04/2018 1:52 Results for this AM [employer] procedure are in the results section. RESPIRATORY PATHOGEN Routine 01/04/2018 12:55 Results for this PANEL AM [employer] procedure are in the results section. INFLUENZA ANTIGEN Routine 01/04/2018 12:55 Results for this AM [employer] procedure are in the results section. ESTIMATED GFR STAT 01/04/2018 12:50 Results for this AM [employer] procedure are in the results section. SALICYLATE LEVEL STAT 01/04/2018 12:50 Results for this AM [employer] procedure are in the results section. COMPREHENSIVE METABOLIC STAT 01/04/2018 12:50 Results for this PANEL AM [employer] procedure are in the results section. HC COMPLETE BLD COUNT STAT 01/04/2018 12:50 Results for this W/AUTO DIFF AM [employer] procedure are in the results section. BLOOD CULTURE, AEROBIC Routine 01/04/2018 12:50 Results for this & ANAEROBIC AM [employer] procedure are in the results section. HCG QUALITATIVE, URINE STAT 01/04/2018 12:48 Results for this SCREEN AM [employer] procedure are in the results section. URINALYSIS SCREEN AND STAT 01/04/2018 12:48 Results for this MICROSCOPY, WITH REFLEX AM [employer] procedure are in TO CULTURE the results section. GRAM STAIN STAT 01/04/2018 12:48 Results for this AM [employer] procedure are in the results section. URINE CULTURE STAT 01/04/2018 12:48 Results for this AM [employer] procedure are in the results section. ECG 12-LEAD Routine 01/04/2018 12:24 Results for this AM [employer] procedure are in the results section. after 08/05/2017 Results POC glucose (01/09/2018 12:14 PM)Only the most recent of23 resultswithin the time period is included. POC glucose 163 (H) 65 - 99 mg/dL [facility] DEPARTMENT OF PATHOLOGY AND Comment: GENOMIC MEDICINE RN Notified Meter ID: [id number] Care Manager: Rk Higgins Performing Organization Address City/State/Zipcode Phone Number [facility] DEPARTMENT OF PATHOLOGY [address] [place] [id number] AND GENOMIC MEDICINE IR PICC Placement (01/08/2018 9:42 AM) Narrative Performed At [facility] Placement of a right upper [...] fluoroscopy. The needle was removed and a 5.5-Wallisian peel-away sheath was then placed. Under ultrasound guidance, documentation of vessel patency, needle access with permanent recording, and reporting are performed followed by placement of a sheath in the rightbasilic vein. A 39 cm long 5-Wallisian dual-lumen Power PICC was then deployed over [...] placement of a 39 cm long 5 Wallisian dual-lumen Power PICC via the right basilic vein. The catheter tip lies at the right atrium/superior vena cava junction and is ready for use. [facility]-[id number] Procedure Note Interface, Radiology Results Incoming - 01/08/2018 4:57 PM [employer] Procedure Placement of a right upper extremity [...] fluoroscopy. The needle was removed and a 5.5-Wallisian peel-away sheath was then placed. Under ultrasound guidance, documentation of vessel patency, needle access with permanent recording, and reporting are performed followed by placement of a sheath in the right basilic vein. A 39 cm long 5-Wallisian dual-lumen Power PICC was then deployed over [...] placement of a 39 cm long 5 Wallisian dual-lumen Power PICC via the right basilic vein. The catheter tip lies at the right atrium /superior vena cava junction and is ready for use. [facility]-[id number] Performing Organization Address City/State/Zipcode Phone Number [facility] [address] [place] [address] [place] Guided Vascular Access (01/08/2018 9:42 AM) Narrative Performed At Procedure [facility] Placement of a right upper extremity PICC. [...] fluoroscopy. The needle was removed and a 5.5-Wallisian peel-away sheath was then placed. Under ultrasound guidance, documentation of vessel patency, needle access with permanent recording, and reporting are performed followed by placement of a sheath in the rightbasilic vein. A 39 cm long 5-Wallisian dual-lumen Power PICC was then deployed over [...] placement of a 39 cm long 5 Wallisian dual-lumen Power PICC via the right basilic vein. The catheter tip lies at the right atrium/superior vena cava junction and is ready for use. [facility]-[id number] Procedure Note Interface, Radiology Results Incoming - 01/08/2018 4:58 PM [employer] Procedure Placement of a right upper extremity [...] fluoroscopy. The needle was removed and a 5.5-Wallisian peel-away sheath was then placed. Under ultrasound guidance, documentation of vessel patency, needle access with permanent recording, and reporting are performed followed by placement of a sheath in the right basilic vein. A 39 cm long 5-Wallisian dual-lumen Power PICC was then deployed over [...] placement of a 39 cm long 5 Wallisian dual-lumen Power PICC via the right basilic vein. The catheter tip lies at the right atrium /superior vena cava junction and is ready for use. [facility]-[id number] Performing Organization Address City/[facility]/Zipcode Phone Number [facility] [address] [place] [address] Estimated GFR (01/08/2018 5:00 AM)Only the most recent of7 resultswithin the time period is included. GFR Non Af Amer >90 mL/min/1.73 m2 [facility] DEPARTMENT OF PATHOLOGY AND GENOMIC MEDICINE GFR Af Amer >90 mL/min/1.73 m2 [facility] DEPARTMENT OF Comment: PATHOLOGY AND GENOMIC Chronic [...] specimen Performing Organization Address City/State/Zipcode Phone Number [facility] DEPARTMENT OF PATHOLOGY [address] [place] [address] AND [employer] [facility]ICINE Prothrombin time with INR (01/08/2018 5:00 AM) Prothrombin time 14.5 12.0 - 15.0 sec [facility] DEPARTMENT OF PATHOLOGY AND GENOMIC MEDICINE INR 1.1 [facility] DEPARTMENT OF Comment: PATHOLOGY AND GENOMIC The International Normalized Ratio (INR) is a therapeutic MEDICINE monitoring tool for patients who are stable on oral anticoagulant therapy. An INR of 2.0-3.0 is suggested for deep vein thrombosis/pulmonary embolism. Specimen Blood Performing Organization Address City/State/Zipcode Phone Number [facility] DEPARTMENT OF PATHOLOGY [address] [facility] [place] [place] [address] AND GENOMIC MEDICINE CBC with platelet and differential (01/08/2018 5:00 AM)Only the most recent of6 resultswithin the time period is included. WBC 10.2 4.5 - 11.0 k/uL [facility] DEPART[facility] OF PATHOLOGY AND GENOMIC MEDICINE RBC 4.02 (L) 4.20 - 5.50 m/uL [facility] OF PATHOLOGY AND GENOMIC MEDICINE HGB 13.6 12.0 - 16.0 g/dL [facility] OF PATHOLOGY AND GENOMIC MEDICINE HCT 39.5 37.0 - 47.0 % [facility] OF PATHOLOGY AND GENOMIC MEDICINE MCV 98.3 82.0 - 100.0 fL [facility] OF PATHOLOGY AND GENOMIC MEDICINE MCH 33.8 27.0 - 34.0 pg [facility] DE[facility] OF PATHOLOGY AND GENOMIC MEDICINE MCHC 34.4 31.0 - 37.0 g/dL [facility] DE[facility] OF PATHOLOGY AND GENOMIC MEDICINE RDW - SD 43.5 37.0 - 55.0 fL [facility] OF PATHOLOGY AND GENOMIC MEDICINE MPV 10.3 6.9 - 11.0 fL [facility] OF PATHOLOGY AND GENOMIC MEDICINE Platelet count 288 150 - 400 K/uL [facility] DE[facility]MENT OF PATHOLOGY AND GENOMIC MEDICINE Nucleated RBC 0.00 /100 WBC [facility] DE[facility]MENT OF PATHOLOGY AND GENOMIC MEDICINE Neutrophils 53.6 39.0 - 69.0 % [facility] OF PATHOLOGY AND GENOMIC MEDICINE Lymphocytes 35.7 25.0 - 45.0 % [facility] OF PATHOLOGY AND GENOMIC MEDICINE Monocytes 7.5 0.0 - 10.0 % [facility] OF PATHOLOGY AND GENOMIC MEDICINE Eosinophils 2.1 0.0 - 5.0 % [facility] OF PATHOLOGY AND GENOMIC MEDICINE Basophils 0.5 0.0 - 1.0 % [facility] DE[facility]MENT OF PATHOLOGY AND GENOMIC MEDICINE Immature granulocytes 0.6 0.0 - 1.0 % [facility] DEPARTMENT OF PATHOLOGY AND GENOMIC MEDICINE Specimen Blood Performing Organization Address City/State/Zipcode Phone Number [facility] DEPARTMENT OF PATHOLOGY [address] [place] [address] [facility] Comprehensive metabolic panel (01/08/2018 5:00 AM)Only the most recent of4 resultswithin the time period is included. Sodium 139 135 - 148 mEq/L [facility] DEPARTMENT OF PATHOLOGY AND GENOMIC MEDICINE Potassium 3.8 3.5 - 5.0 mEq/L [facility] DE[facility]MENT OF PATHOLOGY AND GENOMIC MEDICINE Chloride 102 98 - 112 mEq/L [facility] OF PATHOLOGY AND GENOMIC MEDICINE CO2 23 (L) 24 - 31 mEq/L [facility] DEPARTMENT OF PATHOLOGY AND GENOMIC MEDICINE Anion gap 14 7 - 15 mEq/L [facility] DEPARTMENT OF Comment: PATHOLOGY AND GENOMIC Starting from February , anion gap calculation MEDICINE no longer incorporates potassium. Please note the change. BUN 12 6 - 20 mg/dL [facility] DEPARTMENT OF PATHOLOGY AND GENOMIC MEDICINE Creatinine 0.5 0.5 - 0.9 mg/dL [facility] DEPARTMENT OF PATHOLOGY AND GENOMIC MEDICINE Glucose 153 (H) 65 - 99 mg/dL [facility]MENT OF PATHOLOGY AND GENOMIC MEDICINE Calcium 8.8 8.3 - 10.2 mg/dL [facility] OF PATHOLOGY AND GENOMIC MEDICINE Protein 7.2 6.3 - 8.3 g/dL [facility] DE[facility] OF PATHOLOGY AND GENOMIC MEDICINE Albumin 3.4 (L) 3.5 - 5.0 g/dL [facility] DEPARTMENT OF PATHOLOGY AND GENOMIC MEDICINE A/G ratio 0.9 0.7 - 3.8 [facility] OF PATHOLOGY AND GENOMIC MEDICINE Alkaline phosphatase 73 35 - 104 U/L [facility] DEPARTMENT OF PATHOLOGY AND GENOMIC MEDICINE AST 27 10 - 35 U/L [facility] DEPARTMENT OF PATHOLOGY AND GENOMIC MEDICINE ALT 35 5 - 50 U/L [facility]MENT OF PATHOLOGY AND GENOMIC MEDICINE Total bilirubin 0.4 0.2 - 1.2 mg/dL [facility] DEPARTMENT OF PATHOLOGY AND GENOMIC MEDICINE Specimen Plasma specimen Performing Organization Address City/State/Zipcode Phone Number [facility] DEPARTMENT OF PATHOLOGY [address] [place] [address] [facility] Basic metabolic panel (01/07/2018 5:45 AM)Only the most recent of3 resultswithin the time period is included. Sodium 136 135 - 148 mEq/L [facility] DEPARTMENT OF PATHOLOGY AND GENOMIC MEDICINE Potassium 3.8 3.5 - 5.0 mEq/L [facility] DEPARTMENT OF PATHOLOGY AND GENOMIC MEDICINE Chloride 99 98 - 112 mEq/L [facility] DEPARTMENT OF PATHOLOGY AND [facility] CO2 23 (L) 24 - 31 mEq/L [facility] DEPARTMENT OF PATHOLOGY AND [facility] Anion gap 14 7 - 15 mEq/L [facility] DEPARTMENT OF Comment: PATHOLOGY AND GENOMIC Starting from February , anion gap calculation MEDICINE no longer incorporates potassium. Please note the change. BUN 8 6 - 20 mg/dL [facility] DEPARTMENT OF PATHOLOGY AND [facility] Creatinine 0.5 0.5 - 0.9 mg/dL [facility] DEPARTMENT OF PATHOLOGY AND [facility] Glucose 184 (H) 65 - 99 mg/dL [facility] DEPARTMENT OF PATHOLOGY AND [facility] Calcium 8.9 8.3 - 10.2 mg/dL [facility] DEPARTMENT OF PATHOLOGY AND [facility] Specimen Plasma specimen Performing Organization Address City/[facility]/Zipcode Phone Number [facility] DEPARTMENT OF PATHOLOGY [address] [place] [address]. [facility] [place] [address] [facility] Lactic acid level, SEPSIS - Now and repeat 2x every 3 hours (01/06/2018 10:00 PM )Only the most recent of4 resultswithin the time period is included. Lactic acid 1.7 0.5 - 2.2 mmol/L [facility] OF PATHOLOGY AND [facility] Specimen Plasma specimen Performing Organization Address City/[facility]/[employer] Phone Number [facility] DEPARTMENT OF PATHOLOGY [address] [place] [address]. [facility] [place] [address] [facility] Troponin (01/06/2018 12:15 AM)Only the most recent of3 resultswithin the time period is included. Troponin <0.30 0.00 - 0.30 ng/mL [facility] DEPARTMENT OF PATHOLOGY Comment: AND GENOMIC MEDICINE 0.11 - 1.49 ng/mlMay indicate increased risk of acute coronary syndrome. >=1.5 ng/mlConsistent with acute myocardial infarction. The diagnostic value of a single normal or non-diagnostic result is questionable.Serial samples at 2-6 hour intervals are required to rule out acute myocardial injury. Specimen Plasma specimen Performing Organization Address City/[facility]/Zipcode Phone Number [facility] OF PATHOLOGY [address] [place] [address]. [place] [address] AND [employer] Lactic acid level (01/05/2018 8:30 PM)Only the most recent of4 resultswithin the time period is included. Lactic acid 2.7 (H) 0.5 - 2.2 mmol/L [facility] DEPARTMENT OF PATHOLOGY AND [facility] Specimen Plasma specimen Performing Organization Address [facility]/[employer] Phone Number [facility] DEPARTMENT OF PATHOLOGY [address] [place] [address]. [place] [address] AND [facility] Thyroid stimulating hormone (01/05/2018 5:02 PM) TSH 0.90 0.27 - 4.20 uIU/mL [facility] DEPARTMENT OF PATHOLOGY AND [facility] Specimen Plasma specimen Performing Organization Address [facility] Phone Number [facility] DE[facility]MENT OF PATHOLOGY [address] [place] [address]. [place] [address] AND [facility] Magnesium level (01/05/2018 5:02 PM)Only the most recent of2 resultswithin the time period is included. Magnesium 1.6 1.6 - 2.6 mg/dL [facility] DEPARTMENT PATHOLOGY AND [facility] Specimen Plasma specimen Performing Organization Address [facility] Phone Number [facility] DE[facility]MENT OF PATHOLOGY [address] [place] [address]. [place] [address] AND [facility] ECG 12 lead (01/05/2018 4:47 PM)Only the most recent of2 resultswithin the time period is included. Ventricular rate 145 [facility] Atrial rate 145 [facility] OR interval 152 [facility] QRSD interval 60 [facility] QT interval 250 [facility] QTC interval 388 [facility] P axis 1 27 [facility] QRS axis 1 -11 [facility] T wave axis 6 [facility] EKG impression Sinus tachycardia-Septal infarct (cited on or before 2017)-Possible Lateral infarct (cited on or before 05-JAN-2018)-Abnormal ECG-In automated comparison with ECG of 04-JAN-2018 00:24,-OR interva [facility] l has increased-QRS axis shifted right-Questionable change in initial forces of Septal leads-Inverted T waves have replaced nonspecific T wave abnormality in Inferior leads-Nonspecific T wave abnormality now evident in Lateral leads- Performing Organization Address [facility]/[employer] Phone Number [facility] MUSE [address] [place] [address] CT Renal Stone Protocol (01/05/2018 3:30 PM) [...] Dedicated chest imaging could provide further assessment. [facility]-[id number] Procedure Note Interface, Radiology Results Incoming - 01/05/2018 3:52 PM [employer] EXAMINATION: CT RENAL STONE PROTOCOL CLINICAL HISTORY: [...] Dedicated chest imaging could provide further assessment. [facility]-[id number] Performing Organization Address City/[facility]/Zipcode Phone Number [facility] [address] [place] [address] Phosphorus level (01/04/2018 10:30 AM) Phosphorus 3.5 2.4 - 4.5 mg/dL [facility] DEPARTMENT OF PATHOLOGY AND GENOMIC MEDICINE Specimen Plasma specimen Performing Organization Address [facility]/[employer] Phone Number [facility] DEPARTMENT OF PATHOLOGY [address] [facility] [place] [place] [address] AND [employer] MEDICINE Hemoglobin A1c (01/04/2018 10:30 AM) Hemoglobin A1C 9.3 (H) 4.0 - 6.0 % [facility] DEPARTMENT OF PATHOLOGY Comment: AND GENOMIC MEDICINE Less than 6% - Goal of therapy for Type II Diabetes Less than 7%-Goal of therapy for Type I Diabetes Less than 8%-Acceptable control for Type I or Type II Diabetes Greater than 8%-Unacceptable control; action indicated. ([id number]) Specimen Blood Performing Organization Address [facility]/[employer] Phone Number [facility] DEPARTMENT OF PATHOLOGY [address] [facility] [place] [place] [address] AND [employer] MEDICINE ECG ED Preliminary Interpretation - NOT AN ORDER (01/04/2018 3:46 AM)Only the most recent of2 resultswithin the time period is included. Narrative Performed At Ron Roach DO 01/04/20183:46 AM ECG ED Preliminary Interpretation - Not an Order Performed by: RON ROACH Authorized by: RON ROACH Interpretation: Interpretation: [...] No growth after 5 days of incubation. [facility] DEPARTMENT OF Comment: PATHOLOGY AND GENOMIC Specimen Information MEDICINE Specimen Source: Blood Specimen Site: Antecubital, right Specimen Blood - Antecubital, right Performing Organization Address [facility]/[employer] Phone Number [facility] DEPARTMENT OF PATHOLOGY AND [address] [place] [address] GENOMIC MEDICINE XR Chest 2 Vw (01/04/2018 1:52 AM) Narrative Performed At EXAMINATION: XR CHEST 2 VW RADIANT CLINICAL HISTORY: Fever COMPARISON:None. IMPRESSION: Mildly decreased lung volumes. No focal or confluent airspace consolidation. No pleural effusion or pneumothorax. The cardiomediastinal silhouette is normal. No acute osseous abnormalities. [facility]-[id number] Procedure Note Hm Interface, Radiology Results Incoming - 01/04/2018 2:04 AM [employer] EXAMINATION: XR CHEST 2 VW CLINICAL HISTORY: Fever COMPARISON: None. IMPRESSION: Mildly decreased lung volumes. No focal or confluent airspace consolidation. No pleural effusion or pneumothorax. The cardiomediastinal silhouette is normal. No acute osseous abnormalities. [facility]-[id number] Performing Organization Address [facility]/[employer] Phone Number [facility] [address] [place] [address] Respiratory pathogen panel (01/04/2018 12:55 AM) Respiratory pathogen Negative for all pathogens tested: [facility] DEPARTMENT OF panel Negative for Adenovirus [...] Specimen Nares - Left Performing Organization Address City/[facility]/[employer] Phone Number [facility] DEPARTMENT OF PATHOLOGY AND [address] [place] [phone] [facility] MEDICINE Influenza antigen (01/04/2018 12:55 AM) Influenza antigen Negative for Influenza A/B antigen. [facility] DEPARTMENT OF PATHOLOGY Comment: AND GENOMIC MEDICINE Specimen Information Specimen Source: Nares Specimen Site: Left Specimen Nares - Left Performing Organization Address [facility]/[employer] Phone Number [facility] DEPARTMENT OF PATHOLOGY [address] [place] [address] AND [facility] Salicylate level (01/04/2018 12:50 AM) Salicylate <0.4 (L) 3.0 - 30.0 mg/dL [facility] DEPARTMENT OF PATHOLOGY AND GENOMIC MEDICINE Specimen Plasma specimen Performing Organization Address [facility]/[employer] Phone Number [facility] DEPARTMENT OF PATHOLOGY [address] [place] [address] AND [facility] Urinalysis screen and microscopy, with reflex to culture (01/04/2018 12:48 AM) Specimen site Clean catch [facility] DEPARTMENT OF PATHOLOGY AND GENOMIC MEDICINE Color, UA Yellow [facility] DEPARTMENT OF PATHOLOGY AND GENOMIC MEDICINE Appearance, UA Cloudy [facility] DEPARTMENT OF PATHOLOGY AND GENOMIC MEDICINE Specific gravity, UA 1.021 1.001 - 1.030 [facility] DEPARTMENT OF PATHOLOGY AND GENOMIC MEDICINE pH, UA 5.0 5.0 - 9.0 [facility] DEPARTMENT OF PATHOLOGY AND GENOMIC MEDICINE Protein, UA 1+ (A) Negative [facility] DEPARTMENT OF PATHOLOGY AND GENOMIC MEDICINE Glucose, UA 3+ (A) Negative [facility] DEPARTMENT OF PATHOLOGY AND GENOMIC MEDICINE Ketones, UA Negative Negative [facility] DEPARTMENT OF PATHOLOGY AND GENOMIC MEDICINE Bilirubin, UA Negative Negative [facility] DEPARTMENT OF PATHOLOGY AND GENOMIC MEDICINE Blood, UA Moderate (A) Negative [facility] DEPARTMENT OF PATHOLOGY AND GENOMIC MEDICINE Nitrite, UA Positive (A) Negative [facility] DEPARTMENT OF PATHOLOGY AND GENOMIC MEDICINE Urobilinogen, UA <2.0 <2.0 E.U./dL [facility] DEPARTMENT OF PATHOLOGY AND GENOMIC MEDICINE Leukocyte esterase, UA Large (A) Negative [facility] DEPARTMENT OF PATHOLOGY AND GENOMIC MEDICINE Epithelial cells, UA 1 /HPF [facility] DEPARTMENT OF PATHOLOGY AND GENOMIC MEDICINE WBC, UA >200 (H) 0 - 4 /HPF [facility] DEPARTMENT OF PATHOLOGY AND GENOMIC MEDICINE RBC, UA 5 (H) 0 - 2 /HPF [facility] DEPARTMENT OF PATHOLOGY AND GENOMIC MEDICINE Bacteria, UA Many (A) None seen [facility] DEPARTMENT OF PATHOLOGY AND GENOMIC MEDICINE WBC clumps, UA Few (A) [facility] DEPARTMENT OF PATHOLOGY AND GENOMIC MEDICINE Yeast, UA None seen [facility] DEPARTMENT OF PATHOLOGY AND GENOMIC MEDICINE Yeast with pseudohyphae, UA None seen [facility] DEPARTMENT OF PATHOLOGY AND GENOMIC MEDICINE Specimen Urine Performing Organization Address City/[facility]/[employer] Phone Number [facility] DEPARTMENT OF PATHOLOGY [id number] [place] [address] AND [facility] hCG qualitative, urine screen (01/04/2018 12:48 AM) hCG qualitative, urine NegativeComment: [facility] DEPARTMENT OF Sensitivity of HCG test: 25 PATHOLOGY AND GENOMIC mIU/ml MEDICINE Specimen Urine Performing Organization Address City/[facility]/Zipcode Phone Number [facility] DEPARTMENT OF PATHOLOGY [id number] [place] [address] AND [facility] Gram stain (01/04/2018 12:48 AM) Gram stain result Occasional WBC's [facility] DEPARTMENT OF PATHOLOGY Moderate Gram negative rods AND GENOMIC MEDICINE Occasional Gram positive rods Comment: Specimen Information Specimen Source: Urine Specimen Site: Clean catch Specimen Urine Performing Organization Address City/State/Zipcode Phone Number [facility] DEPARTMENT OF PATHOLOGY AND [address] [place] [address] [facility] MEDICINE Urine culture (01/04/2018 12:48 AM) Urine culture isolate Escherichia coli [facility] DEPARTMENT OF >10-5 cfu/ml PATHOLOGY AND GENOMIC This isolate is a crossbar frame wirer of ESBL (extended spectrum beta MEDICINE lactamase).This organism may be clinically resistant to penicillins, cephalosporins or aztreonam despite apparent in vitro susceptibility to some of these agents. (A) Comment: Specimen Information Specimen Source: Urine Specimen Site: Clean catch Urine culture isolate Mixed Gram positive joe [facility] DEPARTMENT OF 10-3 cfu/ml PATHOLOGY AND [...] Cefazolin PREETI >32 mcg/mL: Resistant Escherichia coli Cefepime PREETI 16 mcg/mL: Resistant Escherichia coli Nitrofurantoin [...] Susceptible Performing Organization Address City/State/Zipcode Phone Number [facility] DEPARTMENT OF PATHOLOGY AND [address] [place] [address] GENOMIC MEDICINE after 08/05/2017 Insurance Payer Benefit Plan / Group Subscriber ID Type Phone Address [employer] MEDICARE AETNA MEDICARE HMO/PPO MCR xxxxxxxx HMO [facility] xxxxxxxxx O [phone] [place], [facility] [place] [address]
[2018-08-06 19:50] LABS: Absolute Lymphocytes (CBC) 3.5 K/uL (0.7-4.9); Absolute Monocytes 0.6 K/uL (0.1-1.3); Absolute Neutrophil 7.4 K/uL (1.8-8.0); Basophils % 0.4 % (0-1.3); Eosinophils % 0.5 % (0-4.4); Hematocrit 32.6 % (36.0-45.0); Lymphocytes % 30.1 % (15.3-44.8); MCH 34.9 pg (27.0-35.0); MCV 99.5 fL (80-100); MPV 8.5 fL (7.6-11.3); Monocytes % 5.2 % (3.3-12.3); RBC Red Blood Cell Count 3.28 M/uL (3.86-4.86)
[2018-08-06 20:03] LABS: Potassium 3.4 mmol/L (3.5-5.1)
--- NOTE | 2018-08-06 20:57 | RAD REPORT ---
EXAM DESCRIPTION: US - Transvaginal Study Probe - 08/06/2018 8:44 pm CLINICAL HISTORY: Abd pain;Vaginal bleeding Pelvic pain. COMPARISON: No comparisons FINDINGS: The uterus is normal in size, shape and echotexture. The uterus measures 8.2 x 4.8 x 4.1 c m. The endometrial stripe measures 9 mm, normal. Both ovaries are normal in size, shape and echotexture. The right ovary measures 2.8 x 2.6 x 1.9 cm. The left ovary measures 3.5 x 3.6 x 3.3 cm. 2.9 x 2.9 cm left ovarian follicle seen. No adnexal mas ses. Normal Doppler blood flow was demonstrated to both ovaries. No significant pelvic ascites. IMPRESSION: Unremarkable study.
--- NOTE | 2018-08-06 21:10 | ER ---
Nurse's Notes [facility] Name: Mckenna Haney Age: 33 yrs Sex: Female : 1985 Arrival Date: 08/06/2018 Time: 18:47 Bed 24 Private MD: Diagnosis: Abnormal uterine and vaginal bleeding, unspecified Presentation: 08/06 18:47 Presenting complaint: Patient states: vaginal bleeding x 1 month ago. Pt also reports aa5 abd cramping. Pt states "I haven't seen my greaser and oiler because they keep changing my appointments". Transition of care: patient was not received from another setting of care. Onset of symptoms was 2017. Risk Assessment: Do you want to hurt yourself or someone else? Patient reports no desire to harm self or others. Initial Sepsis Screen: Does the patient meet any 2 criteria? No. Patient's initial sepsis screen is negative. Does the patient have a suspected source of infection? No. Patient's initial sepsis screen is negative. Care prior to arrival: None. 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 - Ebola Screening: : No symptoms or risks identified at this time. - Social history:: Smoking status: Patient/guardian denies using tobacco. Screenin:25 Abuse screen: Denies threats or abuse. Denies injuries from another. Nutritional aj screening: No deficits noted. Tuberculosis screening: No symptoms or risk factors identified. Fall Risk None identified. Assessment: 19:22 General: Appears in no apparent distress. comfortable, Behavior is calm, cooperative, aj appropriate for age. Pain:. Neuro: Level of Consciousness is awake, alert, obeys commands, Oriented to person, place, time, situation, Appropriate for age. Respiratory: Airway is patent Respiratory effort is even, unlabored, Respiratory pattern is regular, symmetrical. : Reports vaginal bleeding that is with clots, heavy flow since 40 days. Derm: Skin is intact, is healthy with good turgor, Skin is pink, warm \\T\\ dry. normal. 21:24 Reassessment: Patient appears in no apparent distress at this time. No changes from aj previously documented assessment. Patient and/or family updated on plan of care and expected duration. Pain level reassessed. Patient is alert, oriented x 3, equal unlabored respirations, skin warm/dry/pink. Patient denies pain at this time. Vital Signs: 18:50 BP 136 / 94; Pulse 105; Resp 18 S; Temp 97.4(TE); Pulse Ox 100% on R/A; Height 5 ft. 4 aa5 in. (162.56 cm) (R); Pain 10/10; 19:22 BP 136 / 70; Pulse 96; Resp 20; Pulse Ox 99% on R/A; aj 20:15 BP 121 / 65; Pulse 95; Resp 15; Pulse Ox 99% on R/A; aj 21:24 BP 134 / 78; Pulse 87; Resp 16; Pulse Ox 99% on R/A; aj ED Course: 18:47 Patient arrived in ED. aa5 18:47 Arm band placed on. aa5 18:50 Triage completed. aa5 18:52 Jeffy Slater PA is PHCP. jr8 18:52 Iban Downs MD is Attending Physician. jr8 18:52 Kathryn Mattson, RN is Primary Nurse. aj 19:25 Patient has correct armband on for positive identification. aj 19:35 Inserted saline lock: 20 gauge in right antecubital area, using aseptic technique. aj Blood collected. 20:45 US Transvaginal Study (Probe) In Process Unspecified. EDMN 21:24 No provider procedures requiring assistance completed. aj 21:26 IV discontinued, intact, bleeding controlled, No redness/swelling at site. Pressure aj dressing applied. Administered Medications: No medications were administered Outcome: 21:10 Discharge ordered by . tamie 21:26 Discharged to home ambulatory. aj 21:26 Condition: good 21:26 Discharge instructions given to patient, Instructed on discharge instructions, follow up and referral plans. Demonstrated understanding of instructions, follow-up care. 21:27 Patient left the ED. aj Signatures: Dispatcher [employer] EDMS Kathryn Mattson RN RN aj Calderon, Audri, RN RN aa5 Roszak, Josh, PA PA jrAga Corrections: (The following items were deleted from the chart) 18:51 18:47 Presenting complaint: Patient states: vaginal bleeding x 2 months ago. Pt also aa5 reports abd cramping. Pt states "I haven't seen my greaser and oiler because they keep changing my appointments" aaDebby :: Patient did not have IV access during this emergency room visit. timo greenwood : Patient admitted, IV remains in place. intact, timo greenwood
--- NOTE | 2018-08-06 21:10 | EDPHYS ---
Physician Documentation [facility] Name: Mckenna Haney Age: 33 yrs Sex: Female : 1985 Arrival Date: 08/06/2018 Time: 18:47 Bed 24 Private MD: ED Physician Iban Downs HPI: 08/06 19:57 This 33 yrs old Female presents to ER via Ambulatory with complaints of jr8 Vaginal Bleeding. 19:57 The patient presents with vaginal bleeding that is moderate. Onset: The jr8 symptoms/episode began/occurred gradually, 2 month(s) ago. Modifying factors: The symptoms are alleviated by nothing, the symptoms are aggravated by nothing. Associated signs and symptoms: Pertinent positives: cramping. Severity of symptoms: At their worst the symptoms were moderate, in the emergency department the symptoms are unchanged. The patient has not experienced similar symptoms in the past. The patient has not recently seen a physician. stated that she now is feeling lightheaded . 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 - Ebola Screening: : No symptoms or risks identified at this time. - Social history:: Smoking status: Patient/guardian denies using tobacco. ROS: 19:57 Eyes: Negative for injury, pain, redness, and discharge, ENT: Negative for injury, jr8 pain, and discharge, Neck: Negative for injury, pain, and swelling, Cardiovascular: Negative for chest pain, palpitations, and edema, Respiratory: Negative for shortness of breath, cough, wheezing, and pleuritic chest pain, Abdomen/GI: Negative for abdominal pain, nausea, vomiting, diarrhea, and constipation, Back: Negative for injury and pain, MS/Extremity: Negative for injury and deformity, Skin: Negative for injury, rash, and discoloration. 19:57 Constitutional: Positive for fatigue. 19:57 : Positive for vaginal bleeding, menstrual abnormality, Negative for urinary symptoms, pelvic pain, flank pain, burning with urination, difficulty urinating, vaginal discharge, vaginal itching. 19:57 Neuro: Positive for dizziness, Negative for altered mental status, gait disturbance, headache, hearing loss, loss of consciousness, numbness, seizure activity, speech changes, syncope, near syncope, tingling, tinnitus, tremor, visual changes, weakness. Exam: 19:57 Eyes: Pupils equal round and reactive to light, extra-ocular motions intact. Lids and jr8 lashes normal. Conjunctiva and sclera are non-icteric and not injected. Cornea within normal limits. Periorbital areas with no swelling, redness, or edema. ENT: Nares patent. No nasal discharge, no septal abnormalities noted. Tympanic membranes are normal and external auditory canals are clear. Oropharynx with no redness, swelling, or masses, exudates, or evidence of obstruction, uvula midline. Mucous membranes moist. Neck: Trachea midline, no thyromegaly or masses palpated, and no cervical lymphadenopathy. Supple, full range of motion without nuchal rigidity, or vertebral point tenderness. No Meningismus. Cardiovascular: Regular rate and rhythm with a normal S1 and S2. No gallops, murmurs, or rubs. Normal PMI, no JVD. No pulse deficits. Respiratory: Lungs have equal breath sounds bilaterally, clear to auscultation and percussion. No rales, rhonchi or wheezes noted. No increased work of breathing, no retractions or nasal flaring. Abdomen/GI: Soft, non-tender, with normal bowel sounds. No distension or tympany. No guarding or rebound. No evidence of tenderness throughout. Back: No spinal tenderness. No costovertebral tenderness. Full range of motion. Skin: Warm, dry with normal turgor. Normal color with no rashes, no lesions, and no evidence of cellulitis. MS/ Extremity: Pulses equal, no cyanosis. Neurovascular intact. Full, normal range of motion. Neuro: Awake and alert, GCS 15, oriented to person, place, time, and situation. Cranial nerves II-XII grossly intact. Motor strength 5/5 in all extremities. Sensory grossly intact. Cerebellar exam normal. Normal gait. Vital Signs: 18:50 BP 136 / 94; Pulse 105; Resp 18 S; Temp 97.4(TE); Pulse Ox 100% on R/A; Height 5 ft. 4 aa5 in. (162.56 cm) (R); Pain 10/10; 19:22 BP 136 / 70; Pulse 96; Resp 20; Pulse Ox 99% on R/A; aj 20:15 BP 121 / 65; Pulse 95; Resp 15; Pulse Ox 99% on R/A; aj 21:24 BP 134 / 78; Pulse 87; Resp 16; Pulse Ox 99% on R/A; aj MDM: 18:52 Patient medically screened. [facility] 21:09 Data reviewed: vital signs, nurses notes, lab test result(s), radiologic studies, [facility] ultrasound, and as a result, I will discharge patient. Data interpreted: Pulse oximetry: on room air is 99 %. Interpretation: normal. Counseling: I had a detailed discussion with the patient and/or guardian regarding: the historical points, exam findings, and any diagnostic results supporting the discharge/admit diagnosis, lab results, radiology results, the need for outpatient follow up, an OB/Gyne specialist, to return to the emergency department if symptoms worsen or persist or if there are any questions or concerns that arise at home. ED course: discussed with patient that she is only mildly anemic. That the US was unremarkable. 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 08/06 19:25 Order name: CBC with Diff [facility] 08/06 19:25 Order name: T\T\S [facility] 08/06 19:25 Order name: Basic Metabolic Panel [facility] 08/06 19:26 Order name: CBC with Automated Diff; Complete Time: 19:55 [facility] 08/06 19:26 Order name: Type and Screen; Complete Time: 20:37 [facility] 08/06 19:26 Order name: Basic Metabolic Panel; Complete Time: 20:05 [facility] 08/06 19:25 Order name: IV; Complete Time: 19:39 [facility] 08/06 19:26 Order name: US Transvaginal Study (Probe); Complete Time: 21:08 [facility] Administered Medications: No medications were administered Disposition: 21:28 Co-signature as Attending Physician, Iban Downs MD. ma2 Disposition: 08/06/18 21:10 Discharged to Home. Impression: Abnormal uterine and vaginal bleeding, unspecified. - Condition is Stable. - Discharge Instructions: Abnormal Uterine Bleeding. - Medication Reconciliation Form, Thank You Letter, Antibiotic Education, Prescription Opioid Use form. - Follow up: Private Physician; When: 2 - 3 days; Reason: Recheck today's complaints, Continuance of care, Re-evaluation by your physician. - Problem is new. - Symptoms have improved. Signatures: Dispatcher [employer] EDKathryn Gonzales RN RN Emily Elizabeth RN RN aa5 Jeffy Slater PA PA jr8 Iban Downs MD MD ma2 Corrections: (The following items were deleted from the chart) 21:27 21:10 08/06/2018 21:10 Discharged to Home. Impression: Abnormal uterine and vaginal aj bleeding, unspecified. Condition is Stable. Forms are Medication Reconciliation Form, Thank You Letter, Antibiotic Education, Prescription Opioid Use. Follow up: Private Physician; When: 2 - 3 days; Reason: Recheck today's complaints, Continuance of care, Re-evaluation by your physician. Problem is new. Symptoms have improved. jr8
== END 2018-08-06 21:27 | disposition home or self-care (01) ==
LOC: ER 18:44
DX: N93.9 Abnormal uterine and vaginal bleeding, unspecified (principal); I10 Essential (primary) hypertension; Z88.6 Allergy status to analgesic agent
CPT/HCPCS: 36415; 76830; 80048; 85025; 86850; 86900; 86901; 99284

== ENCOUNTER 2018-09-22 14:50 | Emergency (ER) | payer MEDICARE ==
--- OUTSIDE RECORDS SUMMARY | 2018-09-22 14:52 | XMS REPORT | Clinical Summary ---
:1985 Author Organization [facility] [employer] Address [address] [place] [address] Care Team Providers Name Role Phone Miranda [...] Juvencio Monsalve MD Sodhi, Nidhi, MD after 09/21/2017 Immunizations Name Dates Previously Given Next Due FLUCELVAX QUAD PF (0.5mL syringe) 01/09/2018 Social History Tobacco Use Types Packs/Day Years Used Date Never Smoker Smokeless Tobacco: Never Used Alcohol Use Drinks/Week oz/Week Comments No Sex Assigned at Date Recorded Not on file Last Filed Vital Signs Vital Sign Reading Time Taken Blood Pressure 109/62 01/09/2018 12:13 PM [facility]ASKET [facility]ERSON Pulse 105 01/09/2018 12:13 PM [facility]ASKET [facility]ERSON Temperature 36.8 C (98.2 F) 01/09/2018 12:13 PM [facility]ASK[facility]ERSON Respiratory Rate 18 01/09/2018 12:13 PM [facility]ASKET PERSON Oxygen Saturation 94% 01/09/2018 12:13 PM [facility]ASKET PERSON Inhaled Oxygen Concentration - - Weight 107 kg (235 lb 12.8 oz) 01/04/2018 6:13 AM BASKET PERSON Height 162.6 cm (5' 4") 01/04/2018 12:40 AM BASKET PERSON Body Mass Index 40.47 01/04/2018 6:13 AM BASKET PERSON Plan of Treatment Health Maintenance Due Date Last Done Comments CERVICAL CANCER SCREENING 2008 INFLUENZA VACCINE 06/27/2018 01/09/2018 Procedures Procedure Name Priority Date/Time Associated Comments Diagnosis POC GLUCOSE Routine 01/09/2018 12:14 Results for this PM [facility]ERSON procedure are in the results section. POC GLUCOSE Routine 01/09/2018 8:49 Results for this AM [facility]ERSON procedure are in the results section. POC GLUCOSE Routine 01/08/2018 3:35 Results for this PM [facility]ERSON procedure are in the results section. POC GLUCOSE Routine 01/08/2018 12:08 Results for this PM [facility]ERSON procedure are in the results section. US GUIDED VASCULAR Routine 01/08/2018 9:42 Results for this ACCESS AM [facility]ERSON procedure are in the results section. IR PICC PLACEMENT Routine 01/08/2018 9:42 Results for this AM [facility]ERSON procedure are in the results section. POC GLUCOSE Routine 01/08/2018 7:36 Results for this AM [facility]ERSON procedure are in the results section. ZZESTIMATED GFR Routine 01/08/2018 5:00 Results for this AM [facility]ERSON procedure are in the results section. PROTHROMBIN TIME WITH Routine 01/08/2018 5:00 Results for this INR AM [facility]ERSON procedure are in the results section. COMPREHENSIVE METABOLIC Routine 01/08/2018 5:00 Results for this PANEL AM [facility]ERSON procedure are in the results section. HC COMPLETE BLD COUNT Routine 01/08/2018 5:00 Results for this W/AUTO DIFF AM [facility]ERSON procedure are in the results section. POC GLUCOSE Routine 01/07/2018 9:01 Results for this PM [facility]ERSON procedure are in the results section. POC GLUCOSE Routine 01/07/2018 4:41 Results for this PM [facility]ERSON procedure are in the results section. POC GLUCOSE Routine 01/07/2018 12:24 Results for this PM [facility]ERSON procedure are in the results section. POC GLUCOSE Routine 01/07/2018 7:52 Results for this AM [facility] PERSON procedure are in the results section. ZZESTIMATED GFR Routine 01/07/2018 5:45 Results for this AM [facility]ERSON procedure are in the results section. BASIC METABOLIC PANEL Routine 01/07/2018 5:45 Results for this AM [facility]ERSON procedure are in the results section. HC COMPLETE BLD COUNT Routine 01/07/2018 5:45 Results for this W/AUTO DIFF AM [facility]ERSON procedure are in the results section. POC GLUCOSE Routine 01/07/2018 5:35 Results for this AM [facility]ERSON procedure are in the results section. LACTIC ACID LEVEL, Timed 01/06/2018 10:00 Results for this SEPSIS - NOW AND REPEAT PM [facility]ERSON procedure are in 2X EVERY 3 HOURS the results section. POC GLUCOSE Routine 01/06/2018 8:54 Results for this PM [facility]ERSON procedure are in the results section. LACTIC ACID LEVEL, Timed 01/06/2018 5:00 Results for this SEPSIS - NOW AND REPEAT PM [facility]ERSON procedure are in 2X EVERY 3 HOURS the results section. POC GLUCOSE Routine 01/06/2018 3:53 Results for this PM [facility]ERSON procedure are in the results section. LACTIC ACID LEVEL, Timed 01/06/2018 1:55 Results for this SEPSIS - NOW AND REPEAT PM [facility]ERSON procedure are in 2X EVERY 3 HOURS the results section. POC GLUCOSE Routine 01/06/2018 11:20 Results for this AM [facility]ERSON procedure are in the results section. POC GLUCOSE Routine 01/06/2018 7:58 Results for this AM [facility]ERSON procedure are in the results section. ZZESTIMATED GFR Routine 01/06/2018 5:34 Results for this AM [facility] PERSON procedure are in the results section. COMPREHENSIVE METABOLIC Routine 01/06/2018 5:34 Results for this PANEL AM [facility]ERSON procedure are in the results section. HC COMPLETE BLD COUNT Routine 01/06/2018 5:34 Results for this W/AUTO DIFF AM [facility]ERSON procedure are in the results section. POC GLUCOSE Routine 01/06/2018 5:24 Results for this AM [facility]ERSON procedure are in the results section. TROPONIN Timed 01/06/2018 12:15 Results for this AM [facility]ERSON procedure are in the results section. LACTIC ACID LEVEL, Timed 01/05/2018 11:40 Results for this SEPSIS - NOW AND REPEAT PM [facility]ERSON procedure are in 2X EVERY 3 HOURS the results section. TROPONIN Timed 01/05/2018 8:30 Results for this PM [facility]ERSON procedure are in the results section. LACTIC ACID LEVEL Timed 01/05/2018 8:30 Results for this PM [facility]ERSON procedure are in the results section. ZZESTIMATED GFR STAT 01/05/2018 5:02 Results for this PM [facility]ERSON procedure are in the results section. THYROID STIMULATING STAT 01/05/2018 5:02 Results for this HORMONE PM [facility]ASKET PERSON procedure are in the results section. TROPONIN Timed 01/05/2018 5:02 Results for this PM [facility]ERSON procedure are in the results section. MAGNESIUM LEVEL STAT 01/05/2018 5:02 Results for this PM [facility]ERSON procedure are in the results section. BASIC METABOLIC PANEL STAT 01/05/2018 5:02 Results for this PM [facility]ERSON procedure are in the results section. LACTIC ACID LEVEL STAT 01/05/2018 5:00 Results for this PM [facility]ERSON procedure are in the results section. POC GLUCOSE Routine 01/05/2018 4:49 Results for this PM [facility]ERSON procedure are in the results section. ECG 12-LEAD Routine 01/05/2018 4:47 Results for this PM [facility]ERSON procedure are in the results section. CT RENAL STONE PROTOCOL Routine 01/05/2018 3:30 Results for this PM [facility]ERSON procedure are in the results section. POC GLUCOSE Routine 01/05/2018 12:11 Results for this PM [facility]ERSON procedure are in the results section. POC GLUCOSE Routine 01/05/2018 7:47 Results for this AM [facility]ASK[facility] PERSON procedure are in the results section. ZZESTIMATED GFR Routine 01/05/2018 5:25 Results for this AM [facility]ASK[facility] PERSON procedure are in the results section. COMPREHENSIVE METABOLIC Routine 01/05/2018 5:25 Results for this PANEL AM [facility]ASKET PERSON procedure are in the results section. HC COMPLETE BLD COUNT Routine 01/05/2018 5:25 Results for this W/AUTO DIFF AM [facility]ASKET [facility]ERSON procedure are in the results section. POC GLUCOSE Routine 01/04/2018 8:39 Results for this PM [facility]ERSON procedure are in the results section. POC GLUCOSE Routine 01/04/2018 4:53 Results for this PM [facility]ERSON procedure are in the results section. POC GLUCOSE Routine 01/04/2018 2:30 Results for this PM [facility]ERSON procedure are in the results section. POC GLUCOSE Routine 01/04/2018 12:02 Results for this PM [facility]ERSON procedure are in the results section. ZZESTIMATED GFR STAT 01/04/2018 10:30 Results for this AM BASK[facility]ERSON procedure are in the results section. HEMOGLOBIN A1C STAT 01/04/2018 10:30 Results for this AM [facility]ERSON procedure are in the results section. PHOSPHORUS LEVEL STAT 01/04/2018 10:30 Results for this AM [facility]ERSON procedure are in the results section. MAGNESIUM LEVEL STAT 01/04/2018 10:30 Results for this AM BASK[facility]ERSON procedure are in the results section. LACTIC ACID LEVEL STAT 01/04/2018 10:30 Results for this AM BASK[facility] PERSON procedure are in the results section. HC COMPLETE BLD COUNT STAT 01/04/2018 10:30 Results for this W/AUTO DIFF AM BASKET PERSON procedure are in the results section. BASIC METABOLIC PANEL STAT 01/04/2018 10:30 Results for this AM B[facility] PERSON procedure are in the results section. POC GLUCOSE Routine 01/04/2018 5:27 Results for this AM B[facility]ERSON procedure are in the results section. ECG ED PRELIMINARY Routine 01/04/2018 3:46 Results for this INTERPRETATION AM BASKET PERSON procedure are in the results section. ECG ED PRELIMINARY Routine 01/04/2018 3:46 Results for this INTERPRETATION AM BASKET PERSON procedure are in the results section. BLOOD CULTURE, AEROBIC Routine 01/04/2018 3:10 Results for this & ANAEROBIC AM BASKET PERSON procedure are in the results section. LACTIC ACID LEVEL Routine 01/04/2018 3:05 Results for this AM [facility]ASK[facility]ERSON procedure are in the results section. XR CHEST 2 VW STAT 01/04/2018 1:52 Results for this AM [facility]ERSON procedure are in the results section. RESPIRATORY PATHOGEN Routine 01/04/2018 12:55 Results for this PANEL AM [facility]ASK[facility] PERSON procedure are in the results section. INFLUENZA ANTIGEN Routine 01/04/2018 12:55 Results for this AM BASK[facility] PERSON procedure are in the results section. ZZESTIMATED GFR STAT 01/04/2018 12:50 Results for this AM BASKET PERSON procedure are in the results section. SALICYLATE LEVEL STAT 01/04/2018 12:50 Results for this AM BASKET PERSON procedure are in the results section. COMPREHENSIVE METABOLIC STAT 01/04/2018 12:50 Results for this PANEL AM BASKET PERSON procedure are in the results section. HC COMPLETE BLD COUNT STAT 01/04/2018 12:50 Results for this W/AUTO DIFF AM BASKET PERSON procedure are in the results section. BLOOD CULTURE, AEROBIC Routine 01/04/2018 12:50 Results for this & ANAEROBIC AM BASKET PERSON procedure are in the results section. HCG QUALITATIVE, URINE STAT 01/04/2018 12:48 Results for this SCREEN AM BASKET PERSON procedure are in the results section. URINALYSIS SCREEN AND STAT 01/04/2018 12:48 Results for this MICROSCOPY, WITH REFLEX AM BASKET PERSON procedure are in TO CULTURE the results section. GRAM STAIN STAT 01/04/2018 12:48 Results for this AM B[facility] PERSON procedure are in the results section. URINE CULTURE STAT 01/04/2018 12:48 Results for this AM BASKET PERSON procedure are in the results section. ECG 12-LEAD Routine 01/04/2018 12:24 Results for this AM BASKET PERSON procedure are in the results section. after 09/21/2017 Results POC glucose (01/09/2018 12:14 PM)Only the most recent of23 resultswithin the time period is included. POC glucose 163 (H) 65 - 99 mg/dL [facility] DEPARTMENT OF PATHOLOGY AND Comment: GENOMIC MEDICINE RN Notified Meter ID: [id number] Liner Checker: Rk Higgins Performing Organization Address City/State/Zipcode Phone Number [facility] DEPARTMENT OF PATHOLOGY [address] [place] [address] AND GENOMIC MEDICINE IR PICC Placement (01/08/2018 9:42 AM) Narrative Performed At Procedure [facility] Placement of a right upper extremity [...] fluoroscopy. The needle was removed and a 5.5-Kosovan peel-away sheath was then placed. Under ultrasound guidance, documentation of vessel patency, needle access with permanent recording, and reporting are performed followed by placement of a sheath in the rightbasilic vein. A 39 cm long 5-Kosovan dual-lumen Power PICC was then deployed over [...] placement of a 39 cm long 5 Kosovan dual-lumen Power PICC via the right basilic vein. The catheter tip lies at the right atrium/superior vena cava junction and is ready for use. [facility]-[id number] Procedure Note Hm Interface, Radiology Results Incoming - 01/08/2018 4:57 PM BASKET PERSON Procedure Placement of a right upper extremity [...] fluoroscopy. The needle was removed and a 5.5-Kosovan peel-away sheath was then placed. Under ultrasound guidance, documentation of vessel patency, needle access with permanent recording, and reporting are performed followed by placement of a sheath in the right basilic vein. A 39 cm long 5-Kosovan dual-lumen Power PICC was then deployed over [...] placement of a 39 cm long 5 Kosovan dual-lumen Power PICC via the right basilic vein. The catheter tip lies at the right atrium /superior vena cava junction and is ready for use. [facility]-[id number] Performing Organization Address City/State/Zipcode Phone Number [facility] [address] [place] [address] [place] Guided Vascular Access (01/08/2018 9:42 AM) Narrative Performed At [facility] Placement of a right upper extremity PICC. [...] fluoroscopy. The needle was removed and a 5.5-Kosovan peel-away sheath was then placed. Under ultrasound guidance, documentation of vessel patency, needle access with permanent recording, and reporting are performed followed by placement of a sheath in the rightbasilic vein. A 39 cm long 5-Kosovan dual-lumen Power PICC was then deployed over [...] placement of a 39 cm long 5 Kosovan dual-lumen Power PICC via the right basilic vein. The catheter tip lies at the right atrium/superior vena cava junction and is ready for use. [facility]-[id number] Procedure Note Interface, Radiology Results Incoming - 01/08/2018 4:58 PM BASKET PERSON Procedure Placement of a right upper extremity [...] fluoroscopy. The needle was removed and a 5.5-Kosovan peel-away sheath was then placed. Under ultrasound guidance, documentation of vessel patency, needle access with permanent recording, and reporting are performed followed by placement of a sheath in the right basilic vein. A 39 cm long 5-Kosovan dual-lumen Power PICC was then deployed over [...] placement of a 39 cm long 5 Kosovan dual-lumen Power PICC via the right basilic vein. The catheter tip lies at the right atrium /superior vena cava junction and is ready for use. [facility]-[id number] Performing Organization Address City/[facility]/Zipcode Phone Number [facility] [address] [place] [address] Estimated GFR (01/08/2018 5:00 AM)Only the most recent of7 resultswithin the time period is included. GFR Non Af Amer >90 mL/min/1.73 m2 [facility] DEPARTMENT OF PATHOLOGY AND GENOMIC MEDICINE GFR Af Amer >90 mL/min/1.73 m2 [facility] DEPARTMENT OF Comment: PATHOLOGY AND GENOMIC [...] specimen Performing Organization Address City/State/Zipcode Phone Number [facility] DEPARTMENT OF PATHOLOGY [address] [place] [address] AND [employer] Prothrombin time with INR (01/08/2018 5:00 AM) Prothrombin time 14.5 12.0 - 15.0 sec [facility] DEPARTMENT OF PATHOLOGY AND GENOMIC MEDICINE INR 1.1 [facility] DEPARTMENT OF Comment: PATHOLOGY AND GENOMIC The International Normalized Ratio (INR) is a therapeutic MEDICINE monitoring tool for patients who are stable on oral anticoagulant therapy. An INR of 2.0-3.0 is suggested for deep vein thrombosis/pulmonary embolism. Specimen Blood Performing Organization Address City/State/Zipcode Phone Number [facility] DEPARTMENT OF PATHOLOGY [address] [facility] [place] [address] AND GENOMIC MEDICINE CBC with platelet and differential (01/08/2018 5:00 AM)Only the most recent of6 resultswithin the time period is included. WBC 10.2 4.5 - 11.0 k/uL [facility] DEPARTMENT OF PATHOLOGY AND GENOMIC MEDICINE RBC 4.02 (L) 4.20 - 5.50 m/uL [facility] DEPARTMENT OF PATHOLOGY AND GENOMIC MEDICINE HGB 13.6 12.0 - 16.0 g/dL [facility] DEPARTMENT OF PATHOLOGY AND GENOMIC MEDICINE HCT 39.5 37.0 - 47.0 % [facility] DEPARTMENT OF PATHOLOGY AND GENOMIC MEDICINE MCV 98.3 82.0 - 100.0 fL [facility] DEPARTMENT OF PATHOLOGY AND GENOMIC MEDICINE MCH 33.8 27.0 - 34.0 pg [facility] DEPARTMENT OF PATHOLOGY AND GENOMIC MEDICINE MCHC 34.4 31.0 - 37.0 g/dL [facility] DEPARTMENT OF PATHOLOGY AND GENOMIC MEDICINE RDW - SD 43.5 37.0 - 55.0 fL [facility] DEPARTMENT OF PATHOLOGY AND GENOMIC MEDICINE MPV 10.3 6.9 - 11.0 fL [facility] DEPARTMENT OF PATHOLOGY AND GENOMIC MEDICINE Platelet count 288 150 - 400 K/uL [facility] DEPARTMENT OF PATHOLOGY AND GENOMIC MEDICINE Nucleated RBC 0.00 /100 WBC [facility] DEPARTMENT OF PATHOLOGY AND GENOMIC MEDICINE Neutrophils 53.6 39.0 - 69.0 % [facility] DEPARTMENT OF PATHOLOGY AND GENOMIC MEDICINE Lymphocytes 35.7 25.0 - 45.0 % [facility] DEPARTMENT OF PATHOLOGY AND GENOMIC MEDICINE Monocytes 7.5 0.0 - 10.0 % [facility] DEPARTMENT OF PATHOLOGY AND GENOMIC MEDICINE Eosinophils 2.1 0.0 - 5.0 % [facility] DEPARTMENT OF PATHOLOGY AND GENOMIC MEDICINE Basophils 0.5 0.0 - 1.0 % [facility] DEPARTMENT OF PATHOLOGY AND GENOMIC MEDICINE Immature granulocytes 0.6 0.0 - 1.0 % [facility] DEPARTMENT OF PATHOLOGY AND GENOMIC MEDICINE Specimen Blood Performing Organization Address City/State/Zipcode Phone Number [facility] DEPARTMENT OF PATHOLOGY [address] [place] [address] AND [facility] Comprehensive metabolic panel (01/08/2018 5:00 AM)Only the most recent of4 resultswithin the time period is included. Sodium 139 135 - 148 mEq/L [facility] DEPARTMENT OF PATHOLOGY AND GENOMIC MEDICINE Potassium 3.8 3.5 - 5.0 mEq/L [facility] DEPARTMENT OF PATHOLOGY AND GENOMIC MEDICINE Chloride 102 98 - 112 mEq/L [facility] DEPARTMENT OF PATHOLOGY AND GENOMIC MEDICINE CO2 23 (L) 24 - 31 mEq/L [facility] DEPARTMENT OF PATHOLOGY AND GENOMIC MEDICINE Anion gap 14 7 - 15 mEq/L [facility] DEPARTMENT OF Comment: PATHOLOGY AND GENOMIC Starting from February , anion gap calculation MEDICINE no longer incorporates potassium. Please note the change. BUN 12 6 - 20 mg/dL [facility] DEPARTMENT OF PATHOLOGY AND GENOMIC MEDICINE Creatinine 0.5 0.5 - 0.9 mg/dL [facility] DEPARTMENT OF PATHOLOGY AND GENOMIC MEDICINE Glucose 153 (H) 65 - 99 mg/dL [facility] DEPARTMENT OF PATHOLOGY AND GENOMIC MEDICINE Calcium 8.8 8.3 - 10.2 mg/dL [facility] DEPARTMENT OF PATHOLOGY AND GENOMIC MEDICINE Protein 7.2 6.3 - 8.3 g/dL [facility] DEPARTMENT OF PATHOLOGY AND GENOMIC MEDICINE Albumin 3.4 (L) 3.5 - 5.0 g/dL [facility] DEPARTMENT OF PATHOLOGY AND GENOMIC MEDICINE A/G ratio 0.9 0.7 - 3.8 [facility] DEPARTMENT OF PATHOLOGY AND GENOMIC MEDICINE Alkaline phosphatase 73 35 - 104 U/L [facility] DEPARTMENT OF PATHOLOGY AND GENOMIC MEDICINE AST 27 10 - 35 U/L [facility] DEPARTMENT OF PATHOLOGY AND GENOMIC MEDICINE ALT 35 5 - 50 U/L [facility] DEPARTMENT OF PATHOLOGY AND GENOMIC MEDICINE Total bilirubin 0.4 0.2 - 1.2 mg/dL [facility] DEPARTMENT OF PATHOLOGY AND GENOMIC MEDICINE Specimen Plasma specimen Performing Organization Address City/State/Zipcode Phone Number [facility] DEPARTMENT OF PATHOLOGY [address] [place] [address] AND [facility] Basic metabolic panel (01/07/2018 5:45 AM)Only the most recent of3 resultswithin the time period is included. Sodium 136 135 - 148 mEq/L [facility] DEPARTMENT OF PATHOLOGY AND GENOMIC MEDICINE Potassium 3.8 3.5 - 5.0 mEq/L [facility] DEPARTMENT OF PATHOLOGY AND [facility] MEDICINE Chloride 99 98 - 112 mEq/L [facility] DEPARTMENT OF PATHOLOGY AND [facility] MEDICINE CO2 23 (L) 24 - 31 mEq/L [facility] DEPARTMENT OF PATHOLOGY AND [facility] Anion gap 14 7 - 15 mEq/L [facility] DEPARTMENT OF Comment: PATHOLOGY AND [facility] Starting from February , anion gap calculation MEDICINE no longer incorporates potassium. Please note the change. BUN 8 6 - 20 mg/dL [facility] DEPARTMENT OF PATHOLOGY AND [facility] Creatinine 0.5 0.5 - 0.9 mg/dL [facility] DEPARTMENT OF PATHOLOGY AND [facility] Glucose 184 (H) 65 - 99 mg/dL [facility] DEPARTMENT OF PATHOLOGY AND [facility] Calcium 8.9 8.3 - 10.2 mg/dL [facility] DEPARTMENT OF PATHOLOGY AND [facility] Specimen Plasma specimen Performing Organization Address City/State/Zipcode Phone Number [facility] DEPARTMENT OF PATHOLOGY [address] [place] [address]. [place] [address] AND [facility] Lactic acid level, SEPSIS - Now and repeat 2x every 3 hours (01/06/2018 10:00 PM )Only the most recent of4 resultswithin the time period is included. Lactic acid 1.7 0.5 - 2.2 mmol/L [facility] DEPARTMENT OF PATHOLOGY [facility] Specimen Plasma specimen Performing Organization Address City/[facility] Phone Number [facility] DEPARTMENT OF PATHOLOGY [address] [place] [address]. [place] [address] AND [employer] Troponin (01/06/2018 12:15 AM)Only the most recent of3 resultswithin the time period is included. Troponin <0.30 0.00 - 0.30 ng/mL [facility] DEPARTMENT OF PATHOLOGY Comment: AND GENOMIC MEDICINE 0.11 - 1.49 ng/mlMay indicate increased risk of acute coronary syndrome. >=1.5 ng/mlConsistent with acute myocardial infarction. The diagnostic value of a single normal or non-diagnostic result is questionable.Serial samples at 2-6 hour intervals are required to rule out acute myocardial injury. Specimen Plasma specimen Performing Organization Address City/[facility]/Zipcode Phone Number [facility] DEPARTMENT OF PATHOLOGY [address] [place] [address] [place] [address] AND [employer] Lactic acid level (01/05/2018 8:30 PM)Only the most recent of4 resultswithin the time period is included. Lactic acid 2.7 (H) 0.5 - 2.2 mmol/L [facility] DEPARTMENT OF PATHOLOGY AND [facility] Specimen Plasma specimen Performing Organization Address City/[facility] Phone Number [facility] DEPARTMENT OF PATHOLOGY [address] [place] [address]. [place] [address] AND [facility] Thyroid stimulating hormone (01/05/2018 5:02 PM) TSH 0.90 0.27 - 4.20 uIU/mL [facility] DEPARTMENT OF PATHOLOGY AND [facility] Specimen Plasma specimen Performing Organization Address [facility] Facility[facility] Phone Number [facility] DEPARTMENT OF PATHOLOGY [address] [place] [address]. [place] [address] AND [facility] Magnesium level (01/05/2018 5:02 PM)Only the most recent of2 resultswithin the time period is included. Magnesium 1.6 1.6 - 2.6 mg/dL [facility] DEPARTMENT OF PATHOLOGY AND [facility] Specimen Plasma specimen Performing Organization Address [facility] Phone Number [facility] DEPARTMENT OF PATHOLOGY [address] [place] [address]. [place] [address] AND [facility] ECG 12 lead (01/05/2018 4:47 PM)Only the most recent of2 resultswithin the time period is included. Ventricular rate 145 [facility] Atrial rate 145 [facility] OK interval 152 [facility] QRSD interval 60 [facility] QT interval 250 [facility] QTC interval 388 [facility] P axis 1 27 [facility] QRS axis 1 -11 [facility] T wave axis 6 [facility] EKG impression Sinus tachycardia-Septal infarct (cited on or before 2017)-Possible Lateral infarct (cited on or before 05-JAN-2018)-Abnormal ECG-In automated comparison with ECG of 04-JAN-2018 00:24,-OK interva [facility]USE l has increased-QRS axis shifted right-Questionable change in initial forces of Septal leads-Inverted T waves have replaced nonspecific T wave abnormality in Inferior leads-Nonspecific T wave abnormality now evident in Lateral leads- Performing Organization Address [facility] Phone Number [facility] MUSE [address] [place] [address] CT Renal Stone Protocol (01/05/2018 3:30 PM) [...] Dedicated chest imaging could provide further assessment. [facility]-[id number] Procedure Note Interface, Radiology Results Incoming - 01/05/2018 3:52 PM BASKET PERSON EXAMINATION: CT RENAL STONE PROTOCOL CLINICAL HISTORY: [...] Dedicated chest imaging could provide further assessment. [facility]-[id number] Performing Organization Address City/[facility]/Zipcode Phone Number [address] [place] [address] Phosphorus level (01/04/2018 10:30 AM) Phosphorus 3.5 2.4 - 4.5 mg/dL [facility] DEPARTMENT OF PATHOLOGY AND FID3 MEDICINE Specimen Plasma specimen Performing Organization Address City/[facility] Facility[facility] Phone Number [facility] DEPARTMENT OF PATHOLOGY [address] [facility] [place] [address] AND [employer] Hemoglobin A1c (01/04/2018 10:30 AM) Hemoglobin A1C 9.3 (H) 4.0 - 6.0 % [facility] DEPARTMENT OF PATHOLOGY Comment: AND GENOMIC MEDICINE Less than 6% - Goal of therapy for Type II Diabetes Less than 7%-Goal of therapy for Type I Diabetes Less than 8%-Acceptable control for Type I or Type II Diabetes Greater than 8%-Unacceptable control; action indicated. ([id number]) Specimen Blood Performing Organization Address [facility] Phone Number [facility] DEPARTMENT OF PATHOLOGY [address] [facility] [place] [address] AND [employer] ECG ED Preliminary Interpretation - NOT AN [...] No growth after 5 days of incubation. [facility] DEPARTMENT OF Comment: PATHOLOGY AND GENOMIC Specimen Information MEDICINE Specimen Source: Blood Specimen Site: Antecubital, right Specimen Blood - Antecubital, right Performing Organization Address City/[facility] Phone Number [facility] DEPARTMENT OF PATHOLOGY AND [address] [place] [address] GENOMIC MEDICINE XR Chest 2 Vw (01/04/2018 1:52 AM) Narrative Performed At EXAMINATION: XR CHEST 2 VW RADIANT CLINICAL HISTORY: Fever COMPARISON:None. IMPRESSION: Mildly decreased lung volumes. No focal or confluent airspace consolidation. No pleural effusion or pneumothorax. The cardiomediastinal silhouette is normal. No acute osseous abnormalities. [facility]-[id number] Procedure Note [facility], Radiology Results Incoming - 01/04/2018 2:04 AM BASKET PERSON EXAMINATION: XR CHEST 2 VW CLINICAL HISTORY: Fever COMPARISON: None. IMPRESSION: Mildly decreased lung volumes. No focal or confluent airspace consolidation. No pleural effusion or pneumothorax. The cardiomediastinal silhouette is normal. No acute osseous abnormalities. [facility]-[id number] Performing Organization Address City/[facility] Phone Number [facility] [address] [place] [address] Respiratory pathogen panel (01/04/2018 12:55 AM) Respiratory pathogen Negative for all pathogens tested: [facility] DEPARTMENT OF panel Negative for Adenovirus PATHOLOGY [...] Specimen Nares - Left Performing Organization Address City/[facility]/Zipcode Phone Number [facility] DEPARTMENT OF PATHOLOGY AND [address] [place] [phone] [place] [address] Influenza antigen (01/04/2018 12:55 AM) Influenza antigen Negative for Influenza A/B antigen. [facility] DEPARTMENT OF PATHOLOGY Comment: AND GENOMIC MEDICINE Specimen Information Specimen Source: Nares Specimen Site: Left Specimen Nares - Left Performing Organization Address [facility] Phone Number [facility] DEPARTMENT OF PATHOLOGY [id number] [place] [address] AND [facility] Salicylate level (01/04/2018 12:50 AM) Salicylate <0.4 (L) 3.0 - 30.0 mg/dL [facility] DEPARTMENT OF PATHOLOGY AND GENOMIC MEDICINE Specimen Plasma specimen Performing Organization Address [facility] Phone Number [facility] DEPARTMENT OF PATHOLOGY [address] [place] [address] AND [facility] Urinalysis screen and microscopy, with reflex to culture (01/04/2018 12:48 AM) Specimen site Clean catch [facility] DEPARTMENT OF PATHOLOGY AND GENOMIC MEDICINE Color, UA Yellow [facility] DEPARTMENT OF PATHOLOGY AND GENOMIC MEDICINE Appearance, UA Cloudy [facility] DEPARTMENT OF PATHOLOGY AND GENOMIC MEDICINE Specific gravity, UA 1.021 1.001 - 1.030 [facility] DEPARTMENT OF PATHOLOGY AND GENOMIC MEDICINE pH, UA 5.0 5.0 - 9.0 [facility] DEPARTMENT OF PATHOLOGY AND GENOMIC MEDICINE Protein, UA 1+ (A) Negative [facility] DEPARTMENT OF PATHOLOGY AND GENOMIC MEDICINE Glucose, UA 3+ (A) Negative [facility] DEPARTMENT OF PATHOLOGY AND GENOMIC MEDICINE Ketones, UA Negative Negative [facility] DEPARTMENT OF PATHOLOGY AND GENOMIC MEDICINE Bilirubin, UA Negative Negative [facility] DEPARTMENT OF PATHOLOGY AND GENOMIC MEDICINE Blood, UA Moderate (A) Negative [facility] DEPARTMENT OF PATHOLOGY AND GENOMIC MEDICINE Nitrite, UA Positive (A) Negative [facility] DEPARTMENT OF PATHOLOGY AND GENOMIC MEDICINE Urobilinogen, UA <2.0 <2.0 E.U./dL [facility] DEPARTMENT OF PATHOLOGY AND GENOMIC MEDICINE Leukocyte esterase, UA Large (A) Negative [facility] DEPARTMENT OF PATHOLOGY AND GENOMIC MEDICINE Epithelial cells, UA 1 /HPF [facility] DEPARTMENT OF PATHOLOGY AND GENOMIC MEDICINE WBC, UA >200 (H) 0 - 4 /HPF [facility] DEPARTMENT OF PATHOLOGY AND GENOMIC MEDICINE RBC, UA 5 (H) 0 - 2 /HPF [facility] DEPARTMENT OF PATHOLOGY AND GENOMIC MEDICINE Bacteria, UA Many (A) None seen [facility] DEPARTMENT OF PATHOLOGY AND GENOMIC MEDICINE WBC clumps, UA Few (A) [facility] DEPARTMENT OF PATHOLOGY AND GENOMIC MEDICINE Yeast, UA None seen [facility] DEPARTMENT OF PATHOLOGY AND GENOMIC MEDICINE Yeast with pseudohyphae, UA None seen [facility] DEPARTMENT OF PATHOLOGY AND GENOMIC MEDICINE Specimen Urine Performing Organization Address City/[facility]/Zipcode Phone Number [facility] DEPARTMENT OF PATHOLOGY [id number] [place] [address] AND [facility] hCG qualitative, urine screen (01/04/2018 12:48 AM) hCG qualitative, urine NegativeComment: [facility] DEPARTMENT OF Sensitivity of HCG test: 25 PATHOLOGY AND GENOMIC mIU/ml MEDICINE Specimen Urine Performing Organization Address City/[facility]/Zipcode Phone Number [facility] DEPARTMENT OF PATHOLOGY [phone] [place] [address] AND [facility] Gram stain (01/04/2018 12:48 AM) Gram stain result Occasional WBC's [facility] DEPARTMENT OF PATHOLOGY Moderate Gram negative rods AND GENOMIC MEDICINE Occasional Gram positive rods Comment: Specimen Information Specimen Source: Urine Specimen Site: Clean catch Specimen Urine Performing Organization Address City/State/Zipcode Phone Number [facility] DEPARTMENT OF PATHOLOGY AND [address] [place] [address] [facility] MEDICINE Urine culture (01/04/2018 12:48 AM) Urine culture isolate Escherichia coli [facility] DEPARTMENT OF >10-5 cfu/ml PATHOLOGY AND GENOMIC This isolate is a promos executive producer of ESBL (extended spectrum beta MEDICINE lactamase).This organism may be clinically resistant to penicillins, cephalosporins or aztreonam despite apparent in vitro susceptibility to some of these agents. (A) Comment: Specimen Information Specimen Source: Urine Specimen Site: Clean catch Urine culture isolate Mixed Gram positive joe [facility] DEPARTMENT OF 10-3 cfu/ml PATHOLOGY AND GENOMIC [...] Susceptible Performing Organization Address City/State/Zipcode Phone Number [facility] DEPARTMENT OF PATHOLOGY AND [address] [place] [address] GENOMIC MEDICINE after 09/21/2017 Insurance Payer Benefit Plan / Group Subscriber ID Type Phone Address AETNA MEDICARE AETNA MEDICARE HMO/PPO MCR xxxxxxxx O [facility] xxxxxxxxx O [phone] [place] [phone]
--- NOTE | 2018-09-22 16:41 | EDPHYS ---
Physician Documentation [facility] Name: Mckenna Haney Age: 33 yrs Sex: Female : 1985 Arrival Date: 09/22/2018 Time: 14:55 Bed 18 Private MD: Out, [facility] ED Physician Qasim Smith HPI: 09/22 15:46 This 33 yrs old Female presents to ER via Ambulatory with complaints of Cough, kb Headache. 15:46 The patient or guardian reports cough, that is intermittent, described as mild, with no kb sputum. Onset: The symptoms/episode began/occurred 2 week(s) ago. Severity of symptoms: At their worst the symptoms were mild, in the emergency department the symptoms are unchanged. Modifying factors: The symptoms are alleviated by nothing, the symptoms are aggravated by nothing. Associated signs and symptoms: Pertinent positives: rhinorrhea, sore throat, Pertinent negatives: chest pain, diarrhea, ear ache, fever, nausea, vomiting. The patient has not experienced similar symptoms in the past. The patient has not recently seen a physician. Pt reports cough, congestion, sore throat, headaches, low blood sugar for 2 weeks. . 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 - Social history:: Smoking status: Patient/guardian denies using tobacco. - Ebola Screening: : Patient negative for fever greater than or equal to 101.5 degrees Fahrenheit, and additional compatible Ebola Virus Disease symptoms Patient denies exposure to infectious person Patient denies travel to an Ebola-affected area in the 21 days before illness onset No symptoms or risks identified at this time. ROS: 15:48 Constitutional: Negative for fever, chills, and weight loss, Cardiovascular: Negative kb for chest pain, palpitations, and edema, Abdomen/GI: Negative for abdominal pain, nausea, vomiting, diarrhea, and constipation, Back: Negative for injury and pain, MS/Extremity: Negative for injury and deformity, Skin: Negative for injury, rash, and discoloration. 15:48 ENT: Positive for rhinorrhea, sinus congestion. 15:48 Respiratory: Positive for cough, Negative for dyspnea on exertion, hemoptysis, orthopnea, pleurisy, shortness of breath, sputum production, wheezing. 15:48 Neuro: Positive for headache. Exam: 15:48 Constitutional: This is a well developed, well nourished patient who is awake, alert, kb and in no acute distress. Head/Face: Normocephalic, atraumatic. Neck: Trachea midline, no thyromegaly or masses palpated, and no cervical lymphadenopathy. Supple, full range of motion without nuchal rigidity, or vertebral point tenderness. No Meningismus. Chest/axilla: Normal chest wall appearance and motion. Nontender with no deformity. No lesions are appreciated. Cardiovascular: Regular rate and rhythm with a normal S1 and S2. No gallops, murmurs, or rubs. Normal PMI, no JVD. No pulse deficits. Respiratory: Lungs have equal breath sounds bilaterally, clear to auscultation and percussion. No rales, rhonchi or wheezes noted. No increased work of breathing, no retractions or nasal flaring. Abdomen/GI: Soft, non-tender, with normal bowel sounds. No distension or tympany. No guarding or rebound. No evidence of tenderness throughout. Back: No spinal tenderness. No costovertebral tenderness. Full range of motion. Skin: Warm, dry with normal turgor. Normal color with no rashes, no lesions, and no evidence of cellulitis. MS/ Extremity: Pulses equal, no cyanosis. Neurovascular intact. Full, normal range of motion. Neuro: Awake and alert, GCS 15, oriented to person, place, time, and situation. Cranial nerves II-XII grossly intact. Motor strength 5/5 in all extremities. Sensory grossly intact. Cerebellar exam normal. Normal gait. 15:48 ENT: TM's: bulging, bilaterally, erythema, that is mild, bilaterally. Vital Signs: 15:16 BP 131 / 74; Pulse 90; Resp 16; Temp 98.6; Pulse Ox 100% on R/A; Weight 106.59 kg; aj Height 4 ft. 5 in. (134.62 cm); 16:02 BP 139 / 82; Pulse 82; Resp 14; Pulse Ox 99% ; bp 16:56 BP 118 / 79; Pulse 81; Resp 16; Pulse Ox 99% ; bp 15:16 Body Mass Index 58.82 (106.59 kg, 134.62 cm) aj MDM: 15:32 Patient medically screened. kb 15:50 Data reviewed: vital signs, nurses notes. Data interpreted: Pulse oximetry: on room air kb is 100 %. Interpretation: normal. 16:38 Counseling: I had a detailed discussion with the patient and/or guardian regarding: the kb historical points, exam findings, and any diagnostic results supporting the discharge/admit diagnosis, lab results, the need for outpatient follow up, a family practitioner, to return to the emergency department if symptoms worsen or persist or if there are any questions or concerns that arise at home. 09/22 15:48 Order name: Flu; Complete Time: 16:38 kb 09/22 15:48 Order name: Strep; Complete Time: 16:28 kb 09/22 16:27 Order name: Throat Culture EDMS Administered Medications: No medications were administered Point of Care Testing: Blood Glucose: 15:18 Blood Glucose: 102 mg/dL; aj Ranges: Critical Glucose Levels:Adult <50 mg/dl or >400 mg/dl <40 mg/dl or >180 mg/dl Disposition: 18:01 Co-signature as Attending Physician, Qasim Smith MD. Disposition: 09/22/18 16:40 Discharged to Home. Impression: Otitis media, unspecified, bilateral, Influenza due to identified novel influenza A virus. - Condition is Stable. - Discharge Instructions: Otitis Media, Adult, [id number], Influenza, Adult, [id number]. - Prescriptions for Amoxicillin 500 mg Oral Capsule - take 1 capsule by ORAL route every 8 hours for 7 days; 21 tablet. - Medication Reconciliation Form, Thank You Letter, Antibiotic Education, Prescription Opioid Use form. - Follow up: Emergency Department; When: As needed; Reason: Worsening of condition. Follow up: Private Physician; When: 2 - 3 days; Reason: Recheck today's complaints, Continuance of care, Re-evaluation by your physician. Signatures: Dispatcher [employer] EDClair Burks, GABI-Leonarda ANDREWSP-Kathryn Perez, RN RN Qasim Varghese MD MD gs Peltier, Brian, RN RN bp Corrections: (The following items were deleted from the chart) 16:58 16:40 09/22/2018 16:40 Discharged to Home. Impression: Otitis media, unspecified, bp bilateral; Influenza due to identified novel influenza A virus. Condition is Stable. Discharge Instructions: Otitis Media, Adult, Xteh-[id number]. Prescriptions for Amoxicillin 500 mg Oral Capsule - take 1 capsule by ORAL route every 8 hours for 7 days; 21 tablet. and Forms are Medication Reconciliation Form, Thank You Letter, Antibiotic Education, Prescription Opioid Use. Follow up: Emergency Department; When: As needed; Reason: Worsening of condition. Follow up: Private Physician; When: 2 - 3 days; Reason: Recheck today's complaints, Continuance of care, Re-evaluation by your physician. kb
--- NOTE | 2018-09-22 16:41 | ER ---
Nurse's Notes [facility] Name: Mckenna Haney Age: 33 yrs Sex: Female : 1985 Arrival Date: 09/22/2018 Time: 14:55 Bed 18 Private MD: Out, [facility] Diagnosis: Otitis media, unspecified, bilateral;Influenza due to identified novel influenza A virus Presentation: 09/22 15:14 Presenting complaint: Patient states: Cough for 2 weeks with headache. Patient reports aj recent low blood sugar readings yesterday and today. Reports FSBS of 10, 12, 15, and 23, but patient was able to "eat something sweet" and bring it up. Transition of care: patient was not received from another setting of care. Onset of symptoms was September 08, 2018. Risk Assessment: Do you want to hurt yourself or someone else? Patient reports no desire to harm self or others. Initial Sepsis Screen: Does the patient meet any 2 criteria? No. Patient's initial sepsis screen is negative. Does the patient have a suspected source of infection? No. Patient's initial sepsis screen is negative. Note Patient drove herself to ER and ambulated with steady gait in to triage. Care prior to arrival: None. 15:14 Method Of Arrival: Ambulatory aj 15:14 Acuity: LILO 3 aj Triage Assessment: 15:16 Headache History: The patient has had previous headaches. General: Appears in no aj apparent distress. comfortable, Behavior is calm, cooperative, appropriate for age. Pain: Complains of pain in face and scalp. Neuro: Level of Consciousness is awake, alert, obeys commands, Oriented to person, place, time, situation, Appropriate for age Food And Beverage Director are equal bilaterally Moves all extremities. Full function Gait is steady, Speech is normal, Facial symmetry appears normal, Pupils are PERRLA, Intact Reports dizziness, headache. Respiratory: Reports cough that is Airway is patent Respiratory effort is even, unlabored, Respiratory pattern is regular, symmetrical. Derm: Skin is intact, is healthy with good turgor, Skin is pink, warm \\T\\ dry. normal. 15:30 Pain: Pain currently is 3 out of 10 on a pain scale. Pain began 2-3 days ago. Also bp complains of no other associated symptoms. 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 - Social history:: Smoking status: Patient/guardian denies using tobacco. - Ebola Screening: : Patient negative for fever greater than or equal to 101.5 degrees Fahrenheit, and additional compatible Ebola Virus Disease symptoms Patient denies exposure to infectious person Patient denies travel to an Ebola-affected area in the 21 days before illness onset No symptoms or risks identified at this time. Screenin:33 Abuse screen: Denies threats or abuse. Denies injuries from another. Nutritional bp screening: No deficits noted. Tuberculosis screening: No symptoms or risk factors identified. Fall Risk None identified. Assessment: 15:33 General: Appears in no apparent distress. comfortable, obese, Behavior is cooperative, bp appropriate for age, anxious. Pain: Complains of pain in head. Neuro: Level of Consciousness is awake, alert, obeys commands, Oriented to person, place, time, situation, Appropriate for age. Cardiovascular: No deficits noted. Respiratory: Reports cough that is Airway is patent Respiratory effort is even, unlabored, Respiratory pattern is regular, symmetrical. GI: No signs and/or symptoms were reported involving the gastrointestinal system. : No signs and/or symptoms were reported regarding the genitourinary system. EENT: No deficits noted. Derm: No deficits noted. Musculoskeletal: Circulation, motion, and sensation intact. Range of motion: intact in all extremities. 16:55 Reassessment: PT D/C HOME AMBULATORY, DX WITH OTITIS MEDIA AND INFLUENZA. bp Vital Signs: 15:16 BP 131 / 74; Pulse 90; Resp 16; Temp 98.6; Pulse Ox 100% on R/A; Weight 106.59 kg; aj Height 4 ft. 5 in. (134.62 cm); 16:02 BP 139 / 82; Pulse 82; Resp 14; Pulse Ox 99% ; bp 16:56 BP 118 / 79; Pulse 81; Resp 16; Pulse Ox 99% ; bp 15:16 Body Mass Index 58.82 (106.59 kg, 134.62 cm) aj ED Course: 14:55 Patient arrived in ED. mr 14:55 Out, [facility] is Private Physician. mr 15:16 Triage completed. aj 15:16 Arm band placed on right wrist. Patient placed in waiting room, Patient notified of aj wait time. 15:31 Clair Tadeo FNP-C is PHCP. kb 15:31 Qasim Smith MD is Attending Physician. kb 15:32 Jorge L Nunez, RN is Primary Nurse. bp 15:33 Patient has correct armband on for positive identification. Bed in low position. Call bp light in reach. Side rails up X2. 16:39 Throat Culture Sent. bp 16:57 No provider procedures requiring assistance completed. Patient did not have IV access bp during this emergency room visit. Administered Medications: No medications were administered Point of Care Testing: Blood Glucose: 15:18 Blood Glucose: 102 mg/dL; aj Ranges: Outcome: 16:40 Discharge ordered by MD. kb 16:57 Discharged to home ambulatory. bp 16:57 Condition: stable 16:57 Discharge instructions given to patient, Instructed on discharge instructions, follow up and referral plans. medication usage, Demonstrated understanding of instructions, follow-up care, medications, Prescriptions given X 1. 16:58 Patient left the ED. bp Signatures: Clair Tadeo FNP-C FNP-Ckb Myers, Amanda, RN RN Graciela Marcus mr Jorge L Nunez, RN RN bp
== END 2018-09-22 16:58 | disposition home or self-care (01) ==
LOC: ER 14:50
DX: J10.1 Influenza due to other identified influenza virus with other respiratory manifestations (principal); H66.93 Otitis media, unspecified, bilateral; I10 Essential (primary) hypertension; E11.9 Type 2 diabetes mellitus without complications; Z88.6 Allergy status to analgesic agent
CPT/HCPCS: 82962; 87070; 87081; 87804; 99283

== ENCOUNTER 2018-10-29 17:21 | Emergency (ER) | payer MEDICARE ==
--- OUTSIDE RECORDS SUMMARY | 2018-10-29 17:24 | XMS REPORT | Clinical Summary ---
:1985 Author Organization [facility] Address [address] [place] [address] Care Team Providers Name Role Phone Miranda Goodrich MD Primary Care Provider Allergies Active Allergy Reactions Severity Noted Date Comments Ibuprofen Rash Low 01/04/2018 Medications Medication Sig Dispensed Refills Start Date End Date Status lisinopril Take 2.5 mg by 0 Active (PRINIVIL,ZESTRIL) mouth daily. 2.5 mg tablet metFORMIN Take 1,000 mg 0 Active (GLUCOPHAGE) 1,000 by mouth 2 mg [...] 1 g in Infuse 1 g into 0 01/08/2018 01/18/2018 sodium chloride a venous 0.9 [...] meals for 30 days. blood-glucose Test daily 0 01/08/2018 01/09/2018 Discontinued meter, drum-type before all (ACCU-CHEK COMPACT meals/snacks PLUS CARE) kit and once before bedtime. ACCU-CHEK COMPACT Test daily 0 01/08/2018 01/09/2018 Discontinued TEST strip before all [...] Juvencio Monsalve MD Sodhi, Nidhi, MD after 10/28/2017 Immunizations Name Dates Previously Given Next Due FLUCELVAX QUAD PF (0.5mL syringe) 01/09/2018 Social History Tobacco Use Types Packs/Day Years Used Date Never Smoker Smokeless Tobacco: Never Used Alcohol Use Drinks/Week oz/Week Comments No Sex Assigned at Date Recorded Not on file Job Start Date Occupation Industry Not on file Not on file Not on file Travel History Travel Start Travel End No recent travel history available. Last Filed Vital Signs Vital Sign Reading Time Taken Blood Pressure 109/62 01/09/2018 12:13 PM [facility] Pulse 105 01/09/2018 12:13 PM [facility] Temperature 36.8 C (98.2 F) 01/09/2018 12:13 PM [facility] Respiratory Rate 18 01/09/2018 12:13 PM [facility] Oxygen Saturation 94% 01/09/2018 12:13 PM [facility] Inhaled Oxygen Concentration - - Weight 107 kg (235 lb 12.8 oz) 01/04/2018 6:13 AM [facility] Height 162.6 cm (5' 4") 01/04/2018 12:40 AM [facility] Body Mass Index 40.47 01/04/2018 6:13 AM [facility] Plan of Treatment Health Maintenance Due Date Last Done Comments CERVICAL CANCER SCREENING 2008 INFLUENZA VACCINE 06/27/2018 01/09/2018 HEPATITIS B VACCINES Aged Out No longer eligible based on patient's age to complete this topic IPV VACCINES Aged Out No longer eligible based on patient's age to complete this topic MENINGOCOCCAL VACCINE Aged Out No longer eligible based on patient's age to complete this topic Procedures Procedure Name Priority Date/Time Associated Comments Diagnosis POC GLUCOSE Routine 01/09/2018 12:14 Results for this PM [facility] procedure are in the results section. POC GLUCOSE Routine 01/09/2018 8:49 Results for this AM [facility] procedure are in the results section. POC GLUCOSE Routine 01/08/2018 3:35 Results for this PM [facility] procedure are in the results section. POC GLUCOSE Routine 01/08/2018 12:08 Results for this PM [facility] procedure are in the results section. US GUIDED VASCULAR Routine 01/08/2018 9:42 Results for this ACCESS AM [facility] procedure are in the results section. IR PICC PLACEMENT Routine 01/08/2018 9:42 Results for this AM [facility] procedure are in the results section. POC GLUCOSE Routine 01/08/2018 7:36 Results for this AM [facility] procedure are in the results section. ZZESTIMATED GFR Routine 01/08/2018 5:00 Results for this AM [facility] procedure are in the results section. PROTHROMBIN TIME WITH Routine 01/08/2018 5:00 Results for this INR AM [facility] procedure are in the results section. COMPREHENSIVE METABOLIC Routine 01/08/2018 5:00 Results for this PANEL AM [facility] procedure are in the results section. HC COMPLETE BLD COUNT Routine 01/08/2018 5:00 Results for this W/AUTO DIFF AM [facility] procedure are in the results section. POC GLUCOSE Routine 01/07/2018 9:01 Results for this PM [facility] procedure are in the results section. POC GLUCOSE Routine 01/07/2018 4:41 Results for this PM [facility] procedure are in the results section. POC GLUCOSE Routine 01/07/2018 12:24 Results for this PM [facility] procedure are in the results section. POC GLUCOSE Routine 01/07/2018 7:52 Results for this AM [facility] procedure are in the results section. ZZESTIMATED GFR Routine 01/07/2018 5:45 Results for this AM [facility] procedure are in the results section. BASIC METABOLIC PANEL Routine 01/07/2018 5:45 Results for this AM [facility] procedure are in the results section. HC COMPLETE BLD COUNT Routine 01/07/2018 5:45 Results for this W/AUTO DIFF AM [facility] procedure are in the results section. POC GLUCOSE Routine 01/07/2018 5:35 Results for this AM [facility] procedure are in the results section. LACTIC ACID LEVEL, Timed 01/06/2018 10:00 Results for this SEPSIS - NOW AND REPEAT PM [facility] procedure are in 2X EVERY 3 HOURS the results section. POC GLUCOSE Routine 01/06/2018 8:54 Results for this PM [facility] procedure are in the results section. LACTIC ACID LEVEL, Timed 01/06/2018 5:00 Results for this SEPSIS - NOW AND REPEAT PM [facility] procedure are in 2X EVERY 3 HOURS the results section. POC GLUCOSE Routine 01/06/2018 3:53 Results for this PM [facility] procedure are in the results section. LACTIC ACID LEVEL, Timed 01/06/2018 1:55 Results for this SEPSIS - NOW AND REPEAT PM [facility] procedure are in 2X EVERY 3 HOURS the results section. POC GLUCOSE Routine 01/06/2018 11:20 Results for this AM [facility] procedure are in the results section. POC GLUCOSE Routine 01/06/2018 7:58 Results for this AM [facility] procedure are in the results section. ZZESTIMATED GFR Routine 01/06/2018 5:34 Results for this AM [facility] procedure are in the results section. COMPREHENSIVE METABOLIC Routine 01/06/2018 5:34 Results for this PANEL AM [facility] procedure are in the results section. HC COMPLETE BLD COUNT Routine 01/06/2018 5:34 Results for this W/AUTO DIFF AM [facility] procedure are in the results section. POC GLUCOSE Routine 01/06/2018 5:24 Results for this AM [facility] procedure are in the results section. TROPONIN Timed 01/06/2018 12:15 Results for this AM [facility] procedure are in the results section. LACTIC ACID LEVEL, Timed 01/05/2018 11:40 Results for this SEPSIS - NOW AND REPEAT PM [facility] procedure are in 2X EVERY 3 HOURS the results section. TROPONIN Timed 01/05/2018 8:30 Results for this PM [facility] procedure are in the results section. LACTIC ACID LEVEL Timed 01/05/2018 8:30 Results for this PM [facility] procedure are in the results section. ZZESTIMATED GFR STAT 01/05/2018 5:02 Results for this PM [facility] procedure are in the results section. THYROID STIMULATING STAT 01/05/2018 5:02 Results for this HORMONE PM [facility] procedure are in the results section. TROPONIN Timed 01/05/2018 5:02 Results for this PM [facility] procedure are in the results section. MAGNESIUM LEVEL STAT 01/05/2018 5:02 Results for this PM [facility] procedure are in the results section. BASIC METABOLIC PANEL STAT 01/05/2018 5:02 Results for this PM [facility] procedure are in the results section. LACTIC ACID LEVEL STAT 01/05/2018 5:00 Results for this PM [facility] procedure are in the results section. POC GLUCOSE Routine 01/05/2018 4:49 Results for this PM [facility] procedure are in the results section. ECG 12-LEAD Routine 01/05/2018 4:47 Results for this PM [facility] procedure are in the results section. CT RENAL STONE PROTOCOL Routine 01/05/2018 3:30 Results for this PM [facility] procedure are in the results section. POC GLUCOSE Routine 01/05/2018 12:11 Results for this PM [facility] procedure are in the results section. POC GLUCOSE Routine 01/05/2018 7:47 Results for this AM [facility] procedure are in the results section. ZZESTIMATED GFR Routine 01/05/2018 5:25 Results for this AM [facility] procedure are in the results section. COMPREHENSIVE METABOLIC Routine 01/05/2018 5:25 Results for this PANEL AM [facility] procedure are in the results section. HC COMPLETE BLD COUNT Routine 01/05/2018 5:25 Results for this W/AUTO DIFF AM [facility] procedure are in the results section. POC GLUCOSE Routine 01/04/2018 8:39 Results for this PM [facility] procedure are in the results section. POC GLUCOSE Routine 01/04/2018 4:53 Results for this PM [facility] procedure are in the results section. POC GLUCOSE Routine 01/04/2018 2:30 Results for this PM [facility] procedure are in the results section. POC GLUCOSE Routine 01/04/2018 12:02 Results for this PM [facility] procedure are in the results section. ZZESTIMATED GFR STAT 01/04/2018 10:30 Results for this AM [facility] procedure are in the results section. HEMOGLOBIN A1C STAT 01/04/2018 10:30 Results for this AM [facility] procedure are in the results section. PHOSPHORUS LEVEL STAT 01/04/2018 10:30 Results for this AM [facility] procedure are in the results section. MAGNESIUM LEVEL STAT 01/04/2018 10:30 Results for this AM [facility] procedure are in the results section. LACTIC ACID LEVEL STAT 01/04/2018 10:30 Results for this AM [facility] procedure are in the results section. HC COMPLETE BLD COUNT STAT 01/04/2018 10:30 Results for this W/AUTO DIFF AM [facility] procedure are in the results section. BASIC METABOLIC PANEL STAT 01/04/2018 10:30 Results for this AM [facility] procedure are in the results section. POC GLUCOSE Routine 01/04/2018 5:27 Results for this AM [facility] procedure are in the results section. ECG ED PRELIMINARY Routine 01/04/2018 3:46 Results for this INTERPRETATION AM [facility] procedure are in the results section. ECG ED PRELIMINARY Routine 01/04/2018 3:46 Results for this INTERPRETATION AM [facility] procedure are in the results section. BLOOD CULTURE, AEROBIC Routine 01/04/2018 3:10 Results for this & ANAEROBIC AM [facility] procedure are in the results section. LACTIC ACID LEVEL Routine 01/04/2018 3:05 Results for this AM [facility] procedure are in the results section. XR CHEST 2 VW STAT 01/04/2018 1:52 Results for this AM [facility] procedure are in the results section. RESPIRATORY PATHOGEN Routine 01/04/2018 12:55 Results for this PANEL AM [facility] procedure are in the results section. INFLUENZA ANTIGEN Routine 01/04/2018 12:55 Results for this AM [facility] procedure are in the results section. ZZESTIMATED GFR STAT 01/04/2018 12:50 Results for this AM [facility] procedure are in the results section. SALICYLATE LEVEL STAT 01/04/2018 12:50 Results for this AM [facility] procedure are in the results section. COMPREHENSIVE METABOLIC STAT 01/04/2018 12:50 Results for this PANEL AM [facility] procedure are in the results section. HC COMPLETE BLD COUNT STAT 01/04/2018 12:50 Results for this W/AUTO DIFF AM [facility] procedure are in the results section. BLOOD CULTURE, AEROBIC Routine 01/04/2018 12:50 Results for this & ANAEROBIC AM [facility] procedure are in the results section. HCG QUALITATIVE, URINE STAT 01/04/2018 12:48 Results for this SCREEN AM [facility] procedure are in the results section. URINALYSIS SCREEN AND STAT 01/04/2018 12:48 Results for this MICROSCOPY, WITH REFLEX AM [facility] procedure are in TO CULTURE the results section. GRAM STAIN STAT 01/04/2018 12:48 Results for this AM [facility] procedure are in the results section. URINE CULTURE STAT 01/04/2018 12:48 Results for this AM [facility] procedure are in the results section. ECG 12-LEAD Routine 01/04/2018 12:24 Results for this AM [facility] procedure are in the results section. after 10/28/2017 Results POC glucose (01/09/2018 12:14 PM [facility])Only the most recent of23 resultswithin the time period is included. POC glucose 163 (H) 65 - 99 mg/dL [facility] DEPARTMENT OF PATHOLOGY AND Comment: GENOMIC MEDICINE RN Notified Meter ID: [id number] Cooler Room Worker: Rk Higgins Performing Organization Address City/State/Zipcode Phone Number [facility] DEPARTMENT OF PATHOLOGY [address] [id number] AND GENOMIC MEDICINE IR PICC Placement (01/08/2018 9:42 AM [facility]) Narrative Performed At Procedure [facility] Placement of [...] fluoroscopy. The needle was removed and a 5.5-[place] peel-away sheath was then placed. Under ultrasound guidance, documentation of vessel patency, needle access with permanent recording, and reporting are performed followed by placement of a sheath in the rightbasilic vein. A 39 cm long 5-[place] dual-lumen Power PICC was then deployed over [...] placement of a 39 cm long 5 [place] dual-lumen Power PICC via the right basilic vein. The catheter tip lies at the right atrium/superior vena cava junction and is ready for use. [facility]-[id number] Procedure Note Hm Interface, Radiology Results Incoming - 01/08/2018 4:57 PM [facility] Procedure Placement of a right upper extremity [...] fluoroscopy. The needle was removed and a 5.5-[place] peel-away sheath was then placed. Under ultrasound guidance, documentation of vessel patency, needle access with permanent recording, and reporting are performed followed by placement of a sheath in the right basilic vein. A 39 cm long 5-[place] dual-lumen Power PICC was then deployed over [...] placement of a 39 cm long 5 [place] dual-lumen Power PICC via the right basilic vein. The catheter tip lies at the right atrium /superior vena cava junction and is ready for use. [facility]-[id number] Performing Organization Address City/State/Zipcode Phone Number [facility] [address] [place] [address] [place] Guided Vascular Access (01/08/2018 9:42 AM [facility]) Narrative Performed At [facility] Placement of a right upper extremity [...] fluoroscopy. The needle was removed and a 5.5-[place] peel-away sheath was then placed. Under ultrasound guidance, documentation of vessel patency, needle access with permanent recording, and reporting are performed followed by placement of a sheath in the rightbasilic vein. A 39 cm long 5-[place] dual-lumen Power PICC was then deployed over [...] placement of a 39 cm long 5 [place] dual-lumen Power PICC via the right basilic vein. The catheter tip lies at the right atrium/superior vena cava junction and is ready for use. [facility]-[id number] Procedure Note Interface, Radiology Results Incoming - 01/08/2018 4:58 PM [facility] Procedure Placement of a right upper extremity [...] fluoroscopy. The needle was removed and a 5.5-[place] peel-away sheath was then placed. Under ultrasound guidance, documentation of vessel patency, needle access with permanent recording, and reporting are performed followed by placement of a sheath in the right basilic vein. A 39 cm long 5-[place] dual-lumen Power PICC was then deployed over [...] placement of a 39 cm long 5 [place] dual-lumen Power PICC via the right basilic vein. The catheter tip lies at the right atrium /superior vena cava junction and is ready for use. [facility]-[id number] Performing Organization Address City/State/Zipcode Phone Number [facility] [address] [place] [address] Estimated GFR (01/08/2018 5:00 AM [facility])Only the most recent of7 resultswithin the time period is included. GFR Non Af Amer >90 mL/min/1.73 m2 [facility] DEPARTMENT OF PATHOLOGY AND GENOMIC MEDICINE GFR Af Amer >90 mL/min/1.73 m2 [facility] DEPARTMENT OF Comment: PATHOLOGY AND GENOMIC Chronic [...] specimen Performing Organization Address City/State/Zipcode Phone Number [facility] DEPARTMENT OF PATHOLOGY [id number] [place] [address]. [place] [address] AND [facility] Prothrombin time with INR (01/08/2018 5:00 AM [facility]) Prothrombin time 14.5 12.0 - 15.0 sec [facility] DEPARTMENT OF PATHOLOGY AND GENOMIC MEDICINE INR 1.1 [facility] DEPARTMENT OF Comment: PATHOLOGY AND GENOMIC The International Normalized Ratio (INR) is a therapeutic MEDICINE monitoring tool for patients who are stable on oral anticoagulant therapy. An INR of 2.0-3.0 is suggested for deep vein thrombosis/pulmonary embolism. Specimen Blood Performing Organization Address City/[facility] Cent[facility] Phone Number [facility] DEPARTMENT OF PATHOLOGY [address] [place] [phone] AND [facility] CBC with platelet and differential (01/08/2018 5:00 AM [facility])Only the most recent of6 resultswithin the time period is included. WBC 10.2 4.5 - 11.0 k/uL [facility] DEPARTMENT OF PATHOLOGY AND GENOMIC MEDICINE RBC 4.02 (L) 4.20 - 5.50 m/uL [facility] DEPARTMENT OF PATHOLOGY AND GENOMIC MEDICINE HGB 13.6 12.0 - 16.0 g/dL [facility] DEPARTMENT OF PATHOLOGY AND GENOMIC MEDICINE HCT 39.5 37.0 - 47.0 % [facility] DEPARTMENT OF PATHOLOGY AND GENOMIC MEDICINE MCV 98.3 82.0 - 100.0 fL [facility] DEPARTMENT OF PATHOLOGY AND GENOMIC MEDICINE MCH 33.8 27.0 - 34.0 pg [facility] DEPARTMENT OF PATHOLOGY AND GENOMIC MEDICINE MCHC 34.4 31.0 - 37.0 g/dL [facility] DEPARTMENT OF PATHOLOGY AND GENOMIC MEDICINE RDW - SD 43.5 37.0 - 55.0 fL [facility] DEPARTMENT OF PATHOLOGY AND GENOMIC MEDICINE MPV 10.3 6.9 - 11.0 fL [facility] DEPARTMENT OF PATHOLOGY AND GENOMIC MEDICINE Platelet count 288 150 - 400 K/uL [facility] DEPARTMENT OF PATHOLOGY AND GENOMIC MEDICINE Nucleated RBC 0.00 /100 WBC [facility] DEPARTMENT OF PATHOLOGY AND GENOMIC MEDICINE Neutrophils 53.6 39.0 - 69.0 % [facility] DEPARTMENT OF PATHOLOGY AND GENOMIC MEDICINE Lymphocytes 35.7 25.0 - 45.0 % [facility] DEPARTMENT OF PATHOLOGY AND GENOMIC MEDICINE Monocytes 7.5 0.0 - 10.0 % [facility] DEPARTMENT OF PATHOLOGY AND GENOMIC MEDICINE Eosinophils 2.1 0.0 - 5.0 % [facility] DEPARTMENT OF PATHOLOGY AND GENOMIC MEDICINE Basophils 0.5 0.0 - 1.0 % [facility] DEPARTMENT OF PATHOLOGY AND GENOMIC MEDICINE Immature granulocytes 0.6 0.0 - 1.0 % [facility] DEPARTMENT OF PATHOLOGY AND GENOMIC MEDICINE Specimen Blood Performing Organization Address City/[facility] Centercopr Phone Number [facility] DEPARTMENT OF PATHOLOGY [address] [facility] [place] [address] AND [employer] MEDICINE Comprehensive metabolic panel (01/08/2018 5:00 AM [facility])Only the most recent of4 resultswithin the time period is included. Sodium 139 135 - 148 mEq/L [facility] DEPARTMENT OF PATHOLOGY AND GENOMIC MEDICINE Potassium 3.8 3.5 - 5.0 mEq/L [facility] DEPARTMENT OF PATHOLOGY AND GENOMIC MEDICINE Chloride 102 98 - 112 mEq/L [facility] DEPARTMENT OF PATHOLOGY AND GENOMIC MEDICINE CO2 23 (L) 24 - 31 mEq/L [facility] DEPARTMENT OF PATHOLOGY AND GENOMIC MEDICINE Anion gap 14 7 - 15 mEq/L [facility] DEPARTMENT OF Comment: PATHOLOGY AND GENOMIC Starting from February , anion gap calculation MEDICINE no longer incorporates potassium. Please note the change. BUN 12 6 - 20 mg/dL [facility] DEPARTMENT OF PATHOLOGY AND GENOMIC MEDICINE Creatinine 0.5 0.5 - 0.9 mg/dL [facility] DEPARTMENT OF PATHOLOGY AND GENOMIC MEDICINE Glucose 153 (H) 65 - 99 mg/dL [facility] DEPARTMENT OF PATHOLOGY AND GENOMIC MEDICINE Calcium 8.8 8.3 - 10.2 mg/dL [facility] DEPARTMENT OF PATHOLOGY AND GENOMIC MEDICINE Protein 7.2 6.3 - 8.3 g/dL [facility] DEPARTMENT OF PATHOLOGY AND GENOMIC MEDICINE Albumin 3.4 (L) 3.5 - 5.0 g/dL [facility] DEPARTMENT OF PATHOLOGY AND GENOMIC MEDICINE A/G ratio 0.9 0.7 - 3.8 [facility] DEPARTMENT OF PATHOLOGY AND GENOMIC MEDICINE Alkaline phosphatase 73 35 - 104 U/L [facility] DEPARTMENT OF PATHOLOGY AND GENOMIC MEDICINE AST 27 10 - 35 U/L [facility] DEPARTMENT OF PATHOLOGY AND GENOMIC MEDICINE ALT 35 5 - 50 U/L [facility] DEPARTMENT OF PATHOLOGY AND GENOMIC MEDICINE Total bilirubin 0.4 0.2 - 1.2 mg/dL [facility] DEPARTMENT OF PATHOLOGY AND GENOMIC MEDICINE Specimen Plasma specimen Performing Organization Address [facility] Phone Number [facility] DEPARTMENT OF PATHOLOGY [id number] [place] [id number] AND [employer] Basic metabolic panel (01/07/2018 5:45 AM [facility])Only the most recent of3 resultswithin the time period is included. Sodium 136 135 - 148 mEq/L [facility] DEPARTMENT OF PATHOLOGY AND GENOMIC [facility] Potassium 3.8 3.5 - 5.0 mEq/L [facility] DEPARTMENT OF PATHOLOGY AND [employer] MEDICINE Chloride 99 98 - 112 mEq/L [facility] DEPARTMENT OF PATHOLOGY AND GENOMIC MEDICINE CO2 23 (L) 24 - 31 mEq/L [facility] DEPARTMENT OF PATHOLOGY AND GENOMIC [facility] Anion gap 14 7 - 15 mEq/L [facility] DEPARTMENT OF Comment: PATHOLOGY AND GENOMIC Starting from February , anion gap calculation MEDICINE no longer incorporates potassium. Please note the change. BUN 8 6 - 20 mg/dL [facility] DEPARTMENT OF PATHOLOGY AND GENOMIC MEDICINE Creatinine 0.5 0.5 - 0.9 mg/dL [facility] DEPARTMENT OF PATHOLOGY AND GENOMIC [facility] Glucose 184 (H) 65 - 99 mg/dL [facility] DEPARTMENT OF PATHOLOGY AND [employer] MEDICINE Calcium 8.9 8.3 - 10.2 mg/dL [facility] DEPARTMENT OF PATHOLOGY AND [employer] [facility] Specimen Plasma specimen Performing Organization Address [facility] Center/[facility] Centercode Phone Number [facility] DEPARTMENT OF PATHOLOGY [address] [place] [address]. [place] [address] [address] [employer] [facility] Lactic acid level, SEPSIS - Now and repeat 2x every 3 hours (01/06/2018 10:00 PM SUPERVISOR COMPOSING ROOM)Only the most recent of4 resultswithin the time period is included. Lactic acid 1.7 0.5 - 2.2 mmol/L [facility] DEPARTMENT OF PATHOLOGY AND [employer] [facility] Specimen Plasma specimen Performing Organization Address City/[facility]/Zipcode Phone Number [facility] DEPARTMENT OF PATHOLOGY [id number] [place] [address] AND [employer] [facility] Troponin (01/06/2018 12:15 AM SUPERVISOR COMPOSING ROOM)Only the most recent of3 resultswithin the time period is included. Troponin <0.30 0.00 - 0.30 ng/mL [facility] DEPARTMENT OF PATHOLOGY Comment: AND GENOMIC MEDICINE 0.11 - 1.49 ng/mlMay indicate increased risk of acute coronary syndrome. >=1.5 ng/mlConsistent with acute myocardial infarction. The diagnostic value of a single normal or non-diagnostic result is questionable.Serial samples at 2-6 hour intervals are required to rule out acute myocardial injury. Specimen Plasma specimen Performing Organization Address [facility] Centercode Phone Number [facility] DEPARTMENT OF PATHOLOGY [address] [place] [address]. [place] [address] AND [facility] Lactic acid level (01/05/2018 8:30 PM SUPERVISOR COMPOSING ROOM)Only the most recent of4 resultswithin the time period is included. Lactic acid 2.7 (H) 0.5 - 2.2 mmol/L [facility] DEPARTMENT OF PATHOLOGY AND [facility] Specimen Plasma specimen Performing Organization Address [facility] Centercode Phone Number [facility] DEPARTMENT OF PATHOLOGY [address] [place] [address]. [place] [address] AND [facility] Thyroid stimulating hormone (01/05/2018 5:02 PM SUPERVISOR COMPOSING ROOM) TSH 0.90 0.27 - 4.20 uIU/mL [facility] DEPARTMENT OF PATHOLOGY AND [facility] Specimen Plasma specimen Performing Organization Address [facility] Phone Number [facility] DEPARTMENT OF PATHOLOGY [address] [place] [address]. [place] [address] AND [facility] Magnesium level (01/05/2018 5:02 PM SUPERVISOR COMPOSING ROOM)Only the most recent of2 resultswithin the time period is included. Magnesium 1.6 1.6 - 2.6 mg/dL [facility] DEPARTMENT OF PATHOLOGY AND [facility] Specimen Plasma specimen Performing Organization Address [facility] Centercopr Phone Number [facility] DEPARTMENT OF PATHOLOGY [address] [place] [address]. [place] [address] AND [facility] ECG 12 lead (01/05/2018 4:47 PM SUPERVISOR COMPOSING ROOM)Only the most recent of2 resultswithin the time period is included. Ventricular rate 145 [facility] Atrial rate 145 [facility] GA interval 152 [facility] QRSD interval 60 [facility] QT interval 250 [facility] QTC interval 388 [facility] P axis 1 27 [facility] QRS axis 1 -11 [facility] T wave axis 6 [facility] EKG impression Sinus tachycardia-Septal infarct (cited on or before 2017)-Possible Lateral infarct (cited on or before 05-JAN-2018)-Abnormal ECG-In automated comparison with ECG of 04-JAN-2018 00:24,-GA interva [facility]USE l has increased-QRS axis shifted right-Questionable change in initial forces of Septal leads-Inverted T waves have replaced nonspecific T wave abnormality in Inferior leads-Nonspecific T wave abnormality now evident in Lateral leads- Performing Organization Address City/State/Zipcode Phone Number [facility] [address] [place] [address] CT Renal Stone Protocol (01/05/2018 3:30 PM SUPERVISOR COMPOSING ROOM) Narrative Performed At EXAMINATION:CT RENAL STONE PROTOCOL [...] Dedicated chest imaging could provide further assessment. [facility]-[id number] Procedure Note Interface, Radiology Results Incoming - 01/05/2018 3:52 PM SUPERVISOR COMPOSING ROOM EXAMINATION: CT RENAL STONE PROTOCOL CLINICAL HISTORY: [...] Dedicated chest imaging could provide further assessment. [facility]-[id number] Performing Organization Address City/[facility]/Zipcode Phone Number [facility] [address] [place] [address] Phosphorus level (01/04/2018 10:30 AM SUPERVISOR COMPOSING ROOM) Phosphorus 3.5 2.4 - 4.5 mg/dL [facility] DEPARTMENT OF PATHOLOGY AND [employer] MEDICINE Specimen Plasma specimen Performing Organization Address City/[facility]/Zipcode Phone Number [facility] DEPARTMENT OF PATHOLOGY [address] [place] [address] AND [employer] MEDICINE Hemoglobin A1c (01/04/2018 10:30 AM SUPERVISOR COMPOSING ROOM) Hemoglobin A1C 9.3 (H) 4.0 - 6.0 % [facility] DEPARTMENT OF PATHOLOGY Comment: AND [employer] MEDICINE Less than 6% - Goal of therapy for Type II Diabetes Less than 7%-Goal of therapy for Type I Diabetes Less than 8%-Acceptable control for Type I or Type II Diabetes Greater than 8%-Unacceptable control; action indicated. ([id number]) Specimen Blood Performing Organization Address City/[facility]/Zipcode Phone Number [facility] DEPARTMENT OF PATHOLOGY [address] [place] [address] AND GENOMIC MEDICINE ECG ED Preliminary Interpretation - NOT AN ORDER (01/04/2018 3:46 AM SUPERVISOR COMPOSING ROOM)Only the most recent of2 resultswithin the time [...] Blood culture, aerobic & anaerobic (01/04/2018 3:10 AM SUPERVISOR COMPOSING ROOM)Only the most recent of2 resultswithin the time period is included. Blood culture isolate No growth after 5 days of incubation. [facility] DEPARTMENT OF Comment: PATHOLOGY AND GENOMIC Specimen Information MEDICINE Specimen Source: Blood Specimen Site: Antecubital, right Specimen Blood - Antecubital, right Performing Organization Address [facility] Centercopr Phone Number [facility] DEPARTMENT OF PATHOLOGY AND [address] [place] [address] GENOMIC MEDICINE XR Chest 2 Vw (01/04/2018 1:52 AM SUPERVISOR COMPOSING ROOM) Narrative Performed At EXAMINATION: XR CHEST 2 VW RADIANT CLINICAL HISTORY: Fever COMPARISON:None. IMPRESSION: Mildly decreased lung volumes. No focal or confluent airspace consolidation. No pleural effusion or pneumothorax. The cardiomediastinal silhouette is normal. No acute osseous abnormalities. [facility]-[id number] Procedure Note Interface, Radiology Results Incoming - 01/04/2018 2:04 AM SUPERVISOR COMPOSING ROOM EXAMINATION: XR CHEST 2 VW CLINICAL HISTORY: Fever COMPARISON: None. IMPRESSION: Mildly decreased lung volumes. No focal or confluent airspace consolidation. No pleural effusion or pneumothorax. The cardiomediastinal silhouette is normal. No acute osseous abnormalities. [facility]-[id number] Performing Organization Address [facility] Centercode Phone Number [facility] [address] [place] [address] Respiratory pathogen panel (01/04/2018 12:55 AM SUPERVISOR COMPOSING ROOM) Respiratory pathogen Negative for all pathogens tested: [facility] DEPARTMENT OF panel Negative for Adenovirus [...] Specimen Nares - Left Performing Organization Address City/State/Zipcode Phone Number [facility] DEPARTMENT OF PATHOLOGY AND [address] [place] [id number] [place] [address] Influenza antigen (01/04/2018 12:55 AM SUPERVISOR COMPOSING ROOM) Influenza antigen Negative for Influenza A/B antigen. [facility] DEPARTMENT OF PATHOLOGY Comment: AND GENOMIC MEDICINE Specimen Information Specimen Source: Nares Specimen Site: Left Specimen Nares - Left Performing Organization Address City/State/Zipcode Phone Number [facility] DEPARTMENT OF PATHOLOGY [address] [place] [address] AND [facility] Salicylate level (01/04/2018 12:50 AM SUPERVISOR COMPOSING ROOM) Salicylate <0.4 (L) 3.0 - 30.0 mg/dL [facility] DEPARTMENT OF PATHOLOGY AND GENOMIC MEDICINE Specimen Plasma specimen Performing Organization Address City/[facility]/Zipcode Phone Number [facility] DEPARTMENT OF PATHOLOGY [address] [place] [address] [address] [employer] [facility] Urinalysis screen and microscopy, with reflex to culture (01/04/2018 12:48 AM SUPERVISOR COMPOSING ROOM) Specimen site Clean catch [facility] DEPARTMENT OF PATHOLOGY AND GENOMIC MEDICINE Color, UA Yellow [facility] DEPARTMENT OF PATHOLOGY AND GENOMIC MEDICINE Appearance, UA Cloudy [facility] DEPARTMENT OF PATHOLOGY AND GENOMIC MEDICINE Specific gravity, UA 1.021 1.001 - 1.030 [facility] DEPARTMENT OF PATHOLOGY AND GENOMIC MEDICINE pH, UA 5.0 5.0 - 9.0 [facility] DEPARTMENT OF PATHOLOGY AND GENOMIC MEDICINE Protein, UA 1+ (A) Negative [facility] DEPARTMENT OF PATHOLOGY AND GENOMIC MEDICINE Glucose, UA 3+ (A) Negative [facility] DEPARTMENT OF PATHOLOGY AND GENOMIC MEDICINE Ketones, UA Negative Negative [facility] DEPARTMENT OF PATHOLOGY AND GENOMIC MEDICINE Bilirubin, UA Negative Negative [facility] DEPARTMENT OF PATHOLOGY AND GENOMIC MEDICINE Blood, UA Moderate (A) Negative [facility] DEPARTMENT OF PATHOLOGY AND GENOMIC MEDICINE Nitrite, UA Positive (A) Negative [facility] DEPARTMENT OF PATHOLOGY AND GENOMIC MEDICINE Urobilinogen, UA <2.0 <2.0 E.U./dL [facility] DEPARTMENT OF PATHOLOGY AND GENOMIC MEDICINE Leukocyte esterase, UA Large (A) Negative [facility] DEPARTMENT OF PATHOLOGY AND GENOMIC MEDICINE Epithelial cells, UA 1 /HPF [facility] DEPARTMENT OF PATHOLOGY AND GENOMIC MEDICINE WBC, UA >200 (H) 0 - 4 /HPF [facility] DEPARTMENT OF PATHOLOGY AND GENOMIC MEDICINE RBC, UA 5 (H) 0 - 2 /HPF [facility] DEPARTMENT OF PATHOLOGY AND GENOMIC MEDICINE Bacteria, UA Many (A) None seen [facility] DEPARTMENT OF PATHOLOGY AND GENOMIC MEDICINE WBC clumps, UA Few (A) [facility] DEPARTMENT OF PATHOLOGY AND GENOMIC MEDICINE Yeast, UA None seen [facility] DEPARTMENT OF PATHOLOGY AND GENOMIC MEDICINE Yeast with pseudohyphae, UA None seen [facility] DEPARTMENT OF PATHOLOGY AND GENOMIC MEDICINE Specimen Urine Performing Organization Address City/[facility] Centercode Phone Number [facility] DEPARTMENT OF PATHOLOGY [address] [place] [address] AND [facility] hCG qualitative, urine screen (01/04/2018 12:48 AM SUPERVISOR COMPOSING ROOM) hCG qualitative, urine NegativeComment: [facility] DEPARTMENT OF Sensitivity of HCG test: 25 PATHOLOGY AND GENOMIC mIU/ml MEDICINE Specimen Urine Performing Organization Address City/[facility]/Zipcode Phone Number [facility] DEPARTMENT OF PATHOLOGY [address] [place] [address] AND [facility] MEDICINE Gram stain (01/04/2018 12:48 AM SUPERVISOR COMPOSING ROOM) Gram stain result Occasional WBC's [facility] DEPARTMENT OF PATHOLOGY Moderate Gram negative rods AND GENOMIC MEDICINE Occasional Gram positive rods Comment: Specimen Information Specimen Source: Urine Specimen Site: Clean catch Specimen Urine Performing Organization Address City/[facility] Centercode Phone Number [facility] DEPARTMENT OF PATHOLOGY AND [address] [place] [address] [facility] Urine culture (01/04/2018 12:48 AM SUPERVISOR COMPOSING ROOM) Urine culture isolate Escherichia coli [facility] DEPARTMENT OF >10-5 cfu/ml PATHOLOGY AND GENOMIC This isolate is a insulation inspector of ESBL (extended spectrum beta MEDICINE lactamase).This organism may be clinically resistant to penicillins, cephalosporins or aztreonam despite apparent in vitro susceptibility to some of these agents. (A) Comment: Specimen Information Specimen Source: Urine Specimen Site: Clean catch Urine culture isolate Mixed Gram positive joe [facility] DEPARTMENT OF 10-3 cfu/ml PATHOLOGY AND [facility] (A) MEDICINE Specimen Urine Organism Antibiotic Method [...] PREETI >16 mcg/mL: Resistant Escherichia coli Cefazolin PERETI >32 mcg/mL: Resistant Escherichia coli Cefepime PREETI [...] Performing Organization Address City/State/Zipcode Phone Number [facility] DEPARTMENT OF PATHOLOGY AND [address] [place] [address] [facility] after 10/28/2017 Insurance Payer Benefit Plan / Group Subscriber ID Type Phone Address [employer] MEDICARE AETNA MEDICARE HMO/PPO MCR xxxxxxxx O [facility] xxxxxxxxx O Advance Directives Patient has advance care planning documents on file. For more information, please contact:Sergio Ferreira[address] [place] [address]
--- OUTSIDE RECORDS SUMMARY | 2018-10-29 17:25 | XMS REPORT ---
:1985 [facility] Address [address] [place] [address] Dr. Cortés [address] [place] [address] Care Team Providers Name Role Phone Unavailable Unavailable Unavailable Problems This patient has no known problems. Allergies, Adverse Reactions, Alerts This patient has no known allergies or adverse reactions. Medications This patient has no known medications.
[2018-10-29 19:04] LABS: Urine Bacteria >50 /HPF (<20); Urine Culture Reflex Order REFLEXED; Urine RBC <5 /HPF (NONE SEEN)
[2018-10-29 19:29] LABS: Absolute Lymphocytes (CBC) 3.2 K/uL (0.7-4.9); Absolute Monocytes 0.6 K/uL (0.1-1.3); Absolute Neutrophil 8.5 K/uL (1.8-8.0); Basophils % 0.8 % (0-1.3); Eosinophils % 0.8 % (0-4.4); Hematocrit 38.9 % (36.0-45.0); Lymphocytes % 25.3 % (15.3-44.8); MCH 32.2 pg (27.0-35.0); MCV 95.3 fL (80-100); MPV 8.8 fL (7.6-11.3); Monocytes % 4.9 % (3.3-12.3); RBC Red Blood Cell Count 4.09 M/uL (3.86-4.86)
[2018-10-29] MEDS ORDERED: CEFTRIAXONE 1000 MG/VIAL ONE (19:49)
[2018-10-29] MEDS ORDERED: NA CHLORIDE 0.9% 50 ML IV ONE (19:49)
[2018-10-29 19:50] LABS: BUN Blood Urea Nitrogen 10 mg/dL (7-18); Bicarbonate 23 mmol/L (21-32); Glucose Level 114 mg/dL (74-106); HCG, Quantitative 61 mIU/mL (1-3); Potassium 3.7 mmol/L (3.5-5.1); Sodium Level 142 mmol/L (136-145)
--- NOTE | 2018-10-29 19:58 | RAD REPORT ---
EXAM DESCRIPTION: US - Transvaginal OB - 10/29/2018 7:47 pm CLINICAL HISTORY: ABD PAIN COMPARISON: Transvaginal Study Probe dated 08/06/2018 FINDINGS: The uterus is normal in size, shape and echotexture. A 17 x 16 mm intramural fibroid is pr esent posteriorly. Endometrium measures 8 mm. No evidence of gestational sac seen. The maternal adnexa and ovaries are within normal limits. Normal Doppler blood flow was demonstrated to both ovaries. No significant pelvic ascites. IMPRESSION: No IUP findings are confirmed. If the patient has an elevated HCG level, this would cons titute a of unknown location. Interval followup sonography in 7-10 days and serial HCG leve ls would be recommended.
--- NOTE | 2018-10-29 21:23 | EDPHYS ---
Physician Documentation [facility] Name: Mckenna Haney Age: 33 yrs Sex: Female : 1985 Arrival Date: 10/29/2018 Time: 17:22 Bed 13 Private MD: Out, [facility] ED Physician Qasim Smith HPI: 10/29 18:59 This 33 yrs old Female presents to ER via Ambulatory with complaints of snw Unknown wks , Back Pain. 18:59 The patient presents with flank pain, on the left. Onset: The symptoms/episode snw began/occurred suddenly. Modifying factors: The symptoms are alleviated by nothing. Associated signs and symptoms: The patient has no apparent associated signs or symptoms. Severity of symptoms: At their worst the symptoms were moderate. pt recently dx with UTI at another ED. The patient has been recently seen by a physician: other ED. CONSULTING SOFTWARE ENGINEER: 17:41 LMP N/A - Irregular menses ss Historical: - Allergies: 17:36 Ibuprofen (Hives); ss - PMHx: 17:36 Diabetes - NIDDM; Hypertension; ss 17:41 High Cholesterol; ss - PSHx: 17:36 Cholecystectomy; ss - Immunization history:: Adult Immunizations up to date. - Social history:: Smoking status: Patient/guardian denies using tobacco. - Ebola Screening: : Patient denies exposure to infectious person Patient denies travel to an Ebola-affected area in the 21 days before illness onset. ROS: 18:58 Constitutional: Negative for fever, chills, and weight loss, Eyes: Negative for injury, snw pain, redness, and discharge, ENT: Negative for injury, pain, and discharge, Neck: Negative for injury, pain, and swelling, Cardiovascular: Negative for chest pain, palpitations, and edema, Respiratory: Negative for shortness of breath, cough, wheezing, and pleuritic chest pain, Abdomen/GI: Negative for abdominal pain, nausea, vomiting, diarrhea, and constipation, MS/Extremity: Negative for injury and deformity, Skin: Negative for injury, rash, and discoloration, Neuro: Negative for headache, weakness, numbness, tingling, and seizure. 18:58 Back: Positive for pain at rest, of the left low back. 18:58 : Positive for dx with UTI recently at another ED. Exam: 18:57 Constitutional: This is a well developed, well nourished patient who is awake, alert, snw and in no acute distress. Head/Face: Normocephalic, atraumatic. Eyes: Pupils equal round and reactive to light, extra-ocular motions intact. Lids and lashes normal. Conjunctiva and sclera are non-icteric and not injected. Cornea within normal limits. Periorbital areas with no swelling, redness, or edema. ENT: Nares patent. No nasal discharge, no septal abnormalities noted. Tympanic membranes are normal and external auditory canals are clear. Oropharynx with no redness, swelling, or masses, exudates, or evidence of obstruction, uvula midline. Mucous membranes moist. Neck: Trachea midline, no thyromegaly or masses palpated, and no cervical lymphadenopathy. Supple, full range of motion without nuchal rigidity, or vertebral point tenderness. No Meningismus. Chest/axilla: Normal chest wall appearance and motion. Nontender with no deformity. No lesions are appreciated. Cardiovascular: Regular rate and rhythm with a normal S1 and S2. No gallops, murmurs, or rubs. Normal PMI, no JVD. No pulse deficits. Respiratory: Lungs have equal breath sounds bilaterally, clear to auscultation and percussion. No rales, rhonchi or wheezes noted. No increased work of breathing, no retractions or nasal flaring. Abdomen/GI: Soft, non-tender, with normal bowel sounds. No distension or tympany. No guarding or rebound. No evidence of tenderness throughout. Skin: Warm, dry with normal turgor. Normal color with no rashes, no lesions, and no evidence of cellulitis. MS/ Extremity: Pulses equal, no cyanosis. Neurovascular intact. Full, normal range of motion. Neuro: Awake and alert, GCS 15, oriented to person, place, time, and situation. Cranial nerves II-XII grossly intact. Motor strength 5/5 in all extremities. Sensory grossly intact. Cerebellar exam normal. Normal gait. 18:57 Back: pain, that is mild, of the left low back. Vital Signs: 17:41 BP 125 / 80; Pulse 89; Resp 16; Temp 97.4(TE); Pulse Ox 100% on R/A; Weight 98.43 kg; ss Height 5 ft. 4 in. (162.56 cm); Pain 10/10; 19:30 BP 119 / 78; Pulse 88; Resp 16 S; Pulse Ox 100% on R/A; cc3 20:16 BP 120 / 82; Pulse 88; Resp 17 S; Pulse Ox 99% on R/A; cc3 21:15 BP 123 / 85; Pulse 86; Resp 16 S; Pulse Ox 100% on R/A; cc3 17:41 Body Mass Index 37.25 (98.43 kg, 162.56 cm) ss MDM: 18:15 Patient medically screened. snw 20:32 Data reviewed: vital signs, nurses notes. Data interpreted: Pulse oximetry: on room air snw is 100 %. Counseling: I had a detailed discussion with the patient and/or guardian regarding: the historical points, exam findings, and any diagnostic results supporting the discharge/admit diagnosis, the presence of at least one elevated blood pressure reading (>120/80) during this emergency department visit, lab results, radiology results. Physician consultation: Qasim Smith MD was called at 20:20, Dr. Smith with speak with labor conciliator extrusion manager, Dr. Azevedo re: plan of care. 21:20 Physician consultation: Seth Azevedo MD was called at 20:31, was contacted at 21:15, snw regarding consult, outpatient follow-up, in 2-3 days. 10/29 17:30 Order name: Urine Microscopic Only; Complete Time: 19:09 snw 10/29 18:17 Order name: Quantitative Hcg; Complete Time: 19:50 snw 10/29 18:17 Order name: Abo/rh Typing; Complete Time: 20:40 snw 10/29 18:17 Order name: Basic Metabolic Panel; Complete Time: 19:50 snw 10/29 18:17 Order name: CBC with Diff; Complete Time: 19:50 snw 10/29 18:33 Order name: Urine Dipstick--Ancillary (enter results) bd 10/29 17:30 Order name: Urine Test (obtain specimen); Complete Time: 18:38 snw 10/29 17:30 Order name: Urine Dipstick-Ancillary (obtain specimen); Complete Time: 18:38 snw 10/29 18:17 Order name: IV Saline Lock; Complete Time: 19:21 snw 10/29 18:17 Order name: Labs collected and sent; Complete Time: 19:21 snw 10/29 18:33 Order name: Urine --Ancillary (enter results) bd 10/29 18:35 Order name: US Transvaginal Ob; Complete Time: 20:01 snw 10/29 19:06 Order name: Urine Culture EDWV 10/29 18:17 Order name: NPO; Complete Time: 18:38 snw Administered Medications: 19:50 Drug: Rocephin 1 grams Route: IV; Rate: calculated rate; Site: right antecubital; cc3 20:15 Follow up: Response: No adverse reaction; IV Status: Completed infusion cc3 Disposition: 10/29/18 21:22 Discharged to Home. Impression: Threatened , Urinary tract infection, site not specified. - Condition is Stable. - Discharge Instructions: Threatened Miscarriage, First Trimester of , Pelvic Rest. - Prescriptions for Vitamin 27- 0.8 mg Oral Tablet - take 1 tablet by ORAL route once daily; 60 tablet. - Work release form, Medication Reconciliation Form, Thank You Letter, Antibiotic Education, Prescription Opioid Use form. - Follow up: Seth Azevedo MD; When: 2 - 3 days; Reason: Recheck today's complaints, Continuance of care. - Notes: Continue Macrobid Addendum: 10/31/2018 20:51 Co-signature as Attending Physician, Qasim Smith MD. g s Signatures: Dispatcher [employer] EDWV Sabrina Pedroza, BODY SHOP MANAGER-C BODY SHOP MANAGER-[employer] [place] Siddiqi RN RN ss Starr, Gregory, MD MD gs Davies, Jonathon, RN RN jd3 Cordel, Charlene cc3 Corrections: (The following items were deleted from the chart) 10/29 21:39 21:22 10/29/2018 21:22 Discharged to Home. Impression: Threatened ; Urinary jd3 tract infection, site not specified. Condition is Stable. Forms are Medication Reconciliation Form, Thank You Letter, Antibiotic Education, Prescription Opioid Use. Follow up: Seth Azevedo; When: 2 - 3 days; Reason: Recheck today's complaints, Continuance of care. snw
--- NOTE | 2018-10-29 21:23 | ER ---
Nurse's Notes [facility] Name: Mckenna Haney Age: 33 yrs Sex: Female : 1985 Arrival Date: 10/29/2018 Time: 17:22 Bed 13 Private MD: Out, [facility] Diagnosis: Threatened ;Urinary tract infection, site not specified Presentation: 10/29 17:40 Presenting complaint: Patient states: L lower back pain that began 2 hours ago, ss described as sharp. Transition of care: patient was not received from another setting of care. Onset of symptoms was October 29, 2018. Risk Assessment: Do you want to hurt yourself or someone else? Patient reports no desire to harm self or others. Initial Sepsis Screen: Does the patient meet any 2 criteria? No. Patient's initial sepsis screen is negative. Does the patient have a suspected source of infection? No. Patient's initial sepsis screen is negative. Care prior to arrival: None. 17:40 Method Of Arrival: Ambulatory 17:40 Acuity: LILO 3 17:43 Note Pt was seen at [facility] Monday for CP, and told she was , was again seen at [facility] ER this morning for same pain today and was told she has a UTI. Pt is back now because she is concerned for the baby and is unsure how far along she is. Triage Assessment: 19:15 General: Appears in no apparent distress. comfortable, Behavior is calm, cooperative, cc3 appropriate for age. Pain: Complains of pain in left low back. Musculoskeletal: Circulation, motion, and sensation intact. Range of motion: intact in all extremities. 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 - Social history:: Smoking status: Patient/guardian denies using tobacco. - Ebola Screening: : Patient denies exposure to infectious person Patient denies travel to an Ebola-affected area in the 21 days before illness onset. Screenin:15 Abuse screen: Denies threats or abuse. Denies injuries from another. Nutritional cc3 screening: No deficits noted. Tuberculosis screening: No symptoms or risk factors identified. Fall Risk Ambulatory Aid- None/Bed Rest/Nurse Assist (0 pts). Gait- Normal/Bed Rest/Wheelchair (0 pts) Mental Status- Oriented to own ability (0 pts). Assessment: 19:15 Neuro: Level of Consciousness is awake, alert, obeys commands, Oriented to person, cc3 place, time, situation, Appropriate for age. 20:30 Reassessment: Patient appears in no apparent distress at this time. Patient and/or cc3 family updated on plan of care and expected duration. Pain level reassessed. Patient is alert, oriented x 3, equal unlabored respirations, skin warm/dry/pink. 21:35 Reassessment: Patient appears in no apparent distress at this time. Patient and/or cc3 family updated on plan of care and expected duration. Pain level reassessed. Patient is alert, oriented x 3, equal unlabored respirations, skin warm/dry/pink. SÁNCHEZ Bennett discharged the patient home with prescription given. IV cannula removed and patient left ER vitally stable and ambulatory. Vital Signs: 17:41 BP 125 / 80; Pulse 89; Resp 16; Temp 97.4(TE); Pulse Ox 100% on R/A; Weight 98.43 kg; ss Height 5 ft. 4 in. (162.56 cm); Pain 10/10; 19:30 BP 119 / 78; Pulse 88; Resp 16 S; Pulse Ox 100% on R/A; cc3 20:16 BP 120 / 82; Pulse 88; Resp 17 S; Pulse Ox 99% on R/A; cc3 21:15 BP 123 / 85; Pulse 86; Resp 16 S; Pulse Ox 100% on R/A; cc3 17:41 Body Mass Index 37.25 (98.43 kg, 162.56 cm) ED Course: 17:22 Patient arrived in ED. mr 17:23 Out, of Town is Private Physician. mr 17:41 Triage completed. ss 17:41 Arm band placed on right wrist. ss 18:10 Jorge L Nuenz, MARIN is Primary Nurse. bp 18:15 Sabrina Pedroza, GABI-C is PHCP. snw 18:15 Qasim Smith MD is Attending Physician. snw 19:10 Inserted saline lock: 20 gauge in right antecubital area, using aseptic technique. cc3 Blood collected. 19:15 Patient has correct armband on for positive identification. Bed in low position. Call cc3 light in reach. Side rails up X 1. Pulse ox on. NIBP on. 19:45 US Transvaginal Ob In Process Unspecified. EDMS 21:21 Seth Azevedo MD is Referral Physician. snw 21:35 No provider procedures requiring assistance completed. IV discontinued, intact, cc3 bleeding controlled, No redness/swelling at site. Pressure dressing applied. Administered Medications: 19:50 Drug: Rocephin 1 grams Route: IV; Rate: calculated rate; Site: right antecubital; cc3 20:15 Follow up: Response: No adverse reaction; IV Status: Completed infusion cc3 Outcome: 21:22 Discharge ordered by . snw 21:35 Discharged to home ambulatory. cc3 21:35 Condition: stable 21:35 Discharge instructions given to patient, Instructed on discharge instructions, follow up and referral plans. medication usage, Demonstrated understanding of instructions, follow-up care, medications, Prescriptions given X 1. 21:39 Patient left the ED. [id number] Addendum: 11/02/2018 07:36 Addendum: Culture Results: Positive urine culture. No further action required. Other: i w pt is currently on Macrobid antibiotic with bacteria is sensitive to, was told to continue Macrobid by SÁNCHEZ Bennett at time of discharge . Signatures: Dispatcher [employer] EDTX Sabrina Pedroza, SERVICE DELIVERY SUPERVISOR-C SERVICE DELIVERY SUPERVISOR-Csnw Graciela Ramirez Eunice Pichardo, Indiana Peoples RN, RN RN ss Davies, Jonathon, RN RN jd3 Peltier, Brian, RN RN bp Cordel, Charlene cc3
[2018-10-29 22:06] LABS: Urine Blood NEGATIVE (NEG); Urine Glucose NEGATIVE (NEG); Urine Protein 2+ (NEG); Urine Specific Gravity 1.025 (1.005-1.030); Urine pH 6.5 (5.0-7.0)
== END 2018-10-29 21:39 | disposition home or self-care (01) ==
LOC: ER 17:21
DX: O20.0 Threatened abortion (principal); O23.41 Unspecified infection of urinary tract in pregnancy, first trimester; Z3A.00 Weeks of gestation of pregnancy not specified; Z88.6 Allergy status to analgesic agent
CPT/HCPCS: 36415; 76817; 80048; 81003; 81015; 81025; 84702; 85025; 86900; 86901; 87077; 87086; 87088; 87186; 96365; 99284

== ENCOUNTER 2018-11-05 14:01 | Emergency (ER) | payer MEDICARE ==
--- OUTSIDE RECORDS SUMMARY | 2018-11-05 14:04 | XMS REPORT | Clinical Summary ---
:1985 Author Organization [facility] Address [address] [place] [address] Care Team Providers Name Role Phone Miranda [...] Juvencio Monsalve MD Sodhi, Nidhi, MD after 11/04/2017 Immunizations Name Dates Previously Given Next Due [...] Taken Blood Pressure 109/62 01/09/2018 12:13 PM [facility] Pulse 105 01/09/2018 12:13 PM [facility] Temperature 36.8 C (98.2 F) 01/09/2018 12:13 PM [facility] Respiratory Rate 18 01/09/2018 12:13 PM [facility] Oxygen Saturation 94% 01/09/2018 12:13 PM [facility] Inhaled Oxygen Concentration - - Weight 107 kg (235 lb 12.8 oz) 01/04/2018 6:13 AM [facility] Height 162.6 cm (5' 4") 01/04/2018 12:40 AM [facility] Body Mass Index 40.47 01/04/2018 6:13 AM [facility] Plan of Treatment Health Maintenance Due Date [...] Routine 01/09/2018 12:14 Results for this PM [facility] procedure are in the results section. POC GLUCOSE Routine 01/09/2018 8:49 Results for this AM [facility] procedure are in the results section. POC GLUCOSE Routine 01/08/2018 3:35 Results for this PM [facility] procedure are in the results section. POC GLUCOSE Routine 01/08/2018 12:08 Results for this PM [facility] procedure are in the results section. US GUIDED VASCULAR Routine 01/08/2018 9:42 Results for this ACCESS AM [facility] procedure are in the results section. IR PICC PLACEMENT Routine 01/08/2018 9:42 Results for this AM [facility] procedure are in the results section. POC GLUCOSE Routine 01/08/2018 7:36 Results for this AM [facility] procedure are in the results section. ZZESTIMATED GFR Routine 01/08/2018 5:00 Results for this AM [facility] procedure are in the results section. PROTHROMBIN TIME WITH Routine 01/08/2018 5:00 Results for this INR AM [facility] procedure are in the results section. COMPREHENSIVE METABOLIC Routine 01/08/2018 5:00 Results for this PANEL AM [facility] procedure are in the results section. HC COMPLETE BLD COUNT Routine 01/08/2018 5:00 Results for this W/AUTO DIFF AM [facility] procedure are in the results section. POC GLUCOSE Routine 01/07/2018 9:01 Results for this PM [facility] procedure are in the results section. POC GLUCOSE Routine 01/07/2018 4:41 Results for this PM [facility] procedure are in the results section. POC GLUCOSE Routine 01/07/2018 12:24 Results for this PM [facility] procedure are in the results section. POC GLUCOSE Routine 01/07/2018 7:52 Results for this AM [facility] procedure are in the results section. ZZESTIMATED GFR Routine 01/07/2018 5:45 Results for this AM [facility] procedure are in the results section. BASIC METABOLIC PANEL Routine 01/07/2018 5:45 Results for this AM [facility] procedure are in the results section. HC COMPLETE BLD COUNT Routine 01/07/2018 5:45 Results for this W/AUTO DIFF AM [facility] procedure are in the results section. POC GLUCOSE Routine 01/07/2018 5:35 Results for this AM [facility] procedure are in the results section. LACTIC ACID LEVEL, Timed 01/06/2018 10:00 Results for this SEPSIS - NOW AND REPEAT PM [facility] procedure are in 2X EVERY 3 HOURS the results section. POC GLUCOSE Routine 01/06/2018 8:54 Results for this PM [facility] procedure are in the results section. LACTIC ACID LEVEL, Timed 01/06/2018 5:00 Results for this SEPSIS - NOW AND REPEAT PM [facility] procedure are in 2X EVERY 3 HOURS the results section. POC GLUCOSE Routine 01/06/2018 3:53 Results for this PM [facility] procedure are in the results section. LACTIC ACID LEVEL, Timed 01/06/2018 1:55 Results for this SEPSIS - NOW AND REPEAT PM [facility] procedure are in 2X EVERY 3 HOURS the results section. POC GLUCOSE Routine 01/06/2018 11:20 Results for this AM [facility] procedure are in the results section. POC GLUCOSE Routine 01/06/2018 7:58 Results for this AM [facility] procedure are in the results section. ZZESTIMATED GFR Routine 01/06/2018 5:34 Results for this AM [facility] procedure are in the results section. COMPREHENSIVE METABOLIC Routine 01/06/2018 5:34 Results for this PANEL [facility] procedure are in the results section. HC COMPLETE BLD COUNT Routine 01/06/2018 5:34 Results for this W/AUTO DIFF AM [facility] procedure are in the results section. POC GLUCOSE Routine 01/06/2018 5:24 Results for this AM [facility] procedure are in the results section. TROPONIN Timed 01/06/2018 12:15 Results for this AM [facility] procedure are in the results section. LACTIC ACID LEVEL, Timed 01/05/2018 11:40 Results for this SEPSIS - NOW AND REPEAT PM [facility] procedure are in 2X EVERY 3 HOURS the results section. TROPONIN Timed 01/05/2018 8:30 Results for this PM [facility] procedure are in the results section. LACTIC ACID LEVEL Timed 01/05/2018 8:30 Results for this PM [facility] procedure are in the results section. ZZESTIMATED GFR STAT 01/05/2018 5:02 Results for this PM [facility] procedure are in the results section. THYROID STIMULATING STAT 01/05/2018 5:02 Results for this HORMONE PM [facility] procedure are in the results section. TROPONIN Timed 01/05/2018 5:02 Results for this PM [facility] procedure are in the results section. MAGNESIUM LEVEL STAT 01/05/2018 5:02 Results for this PM [facility] procedure are in the results section. BASIC METABOLIC PANEL STAT 01/05/2018 5:02 Results for this PM [facility] procedure are in the results section. LACTIC ACID LEVEL STAT 01/05/2018 5:00 Results for this PM [facility] procedure are in the results section. POC GLUCOSE Routine 01/05/2018 4:49 Results for this PM [facility] procedure are in the results section. ECG 12-LEAD Routine 01/05/2018 4:47 Results for this PM [facility] procedure are in the results section. CT RENAL STONE PROTOCOL Routine 01/05/2018 3:30 Results for this PM [facility] procedure are in the results section. POC GLUCOSE Routine 01/05/2018 12:11 Results for this PM [facility] procedure are in the results section. POC GLUCOSE Routine 01/05/2018 7:47 Results for this AM [facility] procedure are in the results section. ZZESTIMATED GFR Routine 01/05/2018 5:25 Results for this AM [facility] procedure are in the results section. COMPREHENSIVE METABOLIC Routine 01/05/2018 5:25 Results for this PANEL AM [facility] procedure are in the results section. HC COMPLETE BLD COUNT Routine 01/05/2018 5:25 Results for this W/AUTO DIFF AM [facility] procedure are in the results section. POC GLUCOSE Routine 01/04/2018 8:39 Results for this PM [facility] procedure are in the results section. POC GLUCOSE Routine 01/04/2018 4:53 Results for this PM [facility] procedure are in the results section. POC GLUCOSE Routine 01/04/2018 2:30 Results for this PM [facility] procedure are in the results section. POC GLUCOSE Routine 01/04/2018 12:02 Results for this PM [facility] procedure are in the results section. ZZESTIMATED GFR STAT 01/04/2018 10:30 Results for this AM [facility] procedure are in the results section. HEMOGLOBIN A1C STAT 01/04/2018 10:30 Results for this AM [facility] procedure are in the results section. PHOSPHORUS LEVEL STAT 01/04/2018 10:30 Results for this AM [facility] procedure are in the results section. MAGNESIUM LEVEL STAT 01/04/2018 10:30 Results for this AM [facility] procedure are in the results section. LACTIC ACID LEVEL STAT 01/04/2018 10:30 Results for this AM [facility] procedure are in the results section. HC COMPLETE BLD COUNT STAT 01/04/2018 10:30 Results for this W/AUTO DIFF AM [facility] procedure are in the results section. BASIC METABOLIC PANEL STAT 01/04/2018 10:30 Results for this AM [facility] procedure are in the results section. POC GLUCOSE Routine 01/04/2018 5:27 Results for this AM [facility] procedure are in the results section. ECG ED PRELIMINARY Routine 01/04/2018 3:46 Results for this INTERPRETATION AM [facility] procedure are in the results section. ECG ED PRELIMINARY Routine 01/04/2018 3:46 Results for this INTERPRETATION [facility] procedure are in the results section. BLOOD CULTURE, AEROBIC Routine 01/04/2018 3:10 Results for this & ANAEROBIC [facility] procedure are in the results section. LACTIC ACID LEVEL Routine 01/04/2018 3:05 Results for this AM [facility] procedure are in the results section. XR CHEST 2 VW STAT 01/04/2018 1:52 Results for this AM [facility] procedure are in the results section. RESPIRATORY PATHOGEN Routine 01/04/2018 12:55 Results for this PANEL [facility] procedure are in the results section. INFLUENZA ANTIGEN Routine 01/04/2018 12:55 Results for this AM [facility] procedure are in the results section. ZZESTIMATED GFR STAT 01/04/2018 12:50 Results for this AM [facility] procedure are in the results section. SALICYLATE LEVEL STAT 01/04/2018 12:50 Results for this AM [facility] procedure are in the results section. COMPREHENSIVE METABOLIC STAT 01/04/2018 12:50 Results for this PANEL AM [facility] procedure are in the results section. HC COMPLETE BLD COUNT STAT 01/04/2018 12:50 Results for this W/AUTO DIFF AM [facility] procedure are in the results section. BLOOD CULTURE, AEROBIC Routine 01/04/2018 12:50 Results for this & ANAEROBIC AM [facility] procedure are in the results section. HCG QUALITATIVE, URINE STAT 01/04/2018 12:48 Results for this SCREEN [facility] procedure are in the results section. URINALYSIS SCREEN AND STAT 01/04/2018 12:48 Results for this MICROSCOPY, WITH REFLEX [facility] procedure are in TO CULTURE the results section. GRAM STAIN STAT 01/04/2018 12:48 Results for this AM [facility] procedure are in the results section. URINE CULTURE STAT 01/04/2018 12:48 Results for this AM [facility] procedure are in the results section. ECG 12-LEAD Routine 01/04/2018 12:24 Results for this AM [facility] procedure are in the results section. after 11/04/2017 Results POC glucose (01/09/2018 12:14 PM [facility])Only the most recent of23 resultswithin the time period is included. POC glucose 163 (H) 65 - 99 mg/dL [facility] DEPARTMENT OF PATHOLOGY AND Comment: GENOMIC MEDICINE RN Notified Meter ID: [id number] Director Compliance: Rk Higgins Performing Organization Address City/State/Zipcode Phone Number [facility] DEPARTMENT OF PATHOLOGY [address] [phone] AND GENOMIC MEDICINE IR PICC Placement (01/08/2018 9:42 AM [facility]) Narrative Performed At Procedure [facility] Placement of [...] fluoroscopy. The needle was removed and a 5.5-Slovenian peel-away sheath was then placed. Under ultrasound guidance, documentation of vessel patency, needle access with permanent recording, and reporting are performed followed by placement of a sheath in the rightbasilic vein. A 39 cm long 5-Slovenian dual-lumen Power PICC was then deployed over [...] placement of a 39 cm long 5 Slovenian dual-lumen Power PICC via the right basilic vein. The catheter tip lies at the right atrium/superior vena cava junction and is ready for use. [id number] Procedure Note Hm Interface, Radiology Results Incoming - 01/08/2018 4:57 PM [facility] Procedure Placement of a right upper extremity [...] fluoroscopy. The needle was removed and a 5.5-Slovenian peel-away sheath was then placed. Under ultrasound guidance, documentation of vessel patency, needle access with permanent recording, and reporting are performed followed by placement of a sheath in the right basilic vein. A 39 cm long 5-Slovenian dual-lumen Power PICC was then deployed over [...] placement of a 39 cm long 5 Slovenian dual-lumen Power PICC via the right basilic vein. The catheter tip lies at the right atrium /superior vena cava junction and is ready for use. [facility]-[id number] Performing Organization Address City/State/Zipcode Phone Number [facility] [address] [place] [address] [place] Guided Vascular Access (01/08/2018 9:42 AM [facility]) Narrative Performed At [facility] Placement of a right upper [...] fluoroscopy. The needle was removed and a 5.5-Slovenian peel-away sheath was then placed. Under ultrasound guidance, documentation of vessel patency, needle access with permanent recording, and reporting are performed followed by placement of a sheath in the rightbasilic vein. A 39 cm long 5-Slovenian dual-lumen Power PICC was then deployed over [...] placement of a 39 cm long 5 Slovenian dual-lumen Power PICC via the right basilic vein. The catheter tip lies at the right atrium/superior vena cava junction and is ready for use. [id number] Procedure Note Interface, Radiology Results Incoming - 01/08/2018 4:58 PM [facility] Procedure Placement of a right upper extremity [...] fluoroscopy. The needle was removed and a 5.5-Slovenian peel-away sheath was then placed. Under ultrasound guidance, documentation of vessel patency, needle access with permanent recording, and reporting are performed followed by placement of a sheath in the right basilic vein. A 39 cm long 5-Slovenian dual-lumen Power PICC was then deployed over [...] placement of a 39 cm long 5 Slovenian dual-lumen Power PICC via the right basilic vein. The catheter tip lies at the right atrium /superior vena cava junction and is ready for use. [facility]-[id number] Performing Organization Address City/State/Zipcode Phone Number [facility] [address] [place] [address] Estimated GFR (01/08/2018 5:00 AM [facility])Only the most recent of7 resultswithin the time period is included. GFR Non Af Amer >90 mL/min/1.73 m2 [facility] DEPARTMENT OF PATHOLOGY AND GENOMIC MEDICINE GFR Af Amer >90 mL/min/1.73 m2 [facility] DEPARTMENT OF Comment: PATHOLOGY AND GENOMIC [...] specimen Performing Organization Address City/State/Zipcode Phone Number [facility] DEPARTMENT OF PATHOLOGY [id number] [place] [address]. [place] [address] AND [facility] Prothrombin time with INR (01/08/2018 5:00 AM [facility]) Prothrombin time 14.5 12.0 - 15.0 sec [facility] DEPARTMENT OF PATHOLOGY AND GENOMIC MEDICINE INR 1.1 [facility] DEPARTMENT OF Comment: PATHOLOGY AND GENOMIC The International Normalized Ratio (INR) is a therapeutic MEDICINE monitoring tool for patients who are stable on oral anticoagulant therapy. An INR of 2.0-3.0 is suggested for deep vein thrombosis/pulmonary embolism. Specimen Blood Performing Organization Address City/[facility] Cent[facility]ode Phone Number [facility] DEPARTMENT OF PATHOLOGY [address] [place] [id number] AND [facility] CBC with platelet and differential (01/08/2018 5:00 AM [facility])Only the most recent of6 resultswithin the time period is included. WBC 10.2 4.5 - 11.0 k/uL [facility] DEPARTMENT OF PATHOLOGY AND GENOMIC MEDICINE RBC 4.02 (L) 4.20 - 5.50 m/uL [facility] DEPARTMENT OF PATHOLOGY AND GENOMIC MEDICINE HGB 13.6 12.0 - 16.0 g/dL [facility] DEPARTMENT OF PATHOLOGY AND GENOMIC MEDICINE HCT 39.5 37.0 - 47.0 % [facility] DEPARTMENT OF PATHOLOGY AND GENOMIC MEDICINE MCV 98.3 82.0 - 100.0 fL [facility] DEPARTMENT OF PATHOLOGY AND GENOMIC MEDICINE MCH 33.8 27.0 - 34.0 pg [facility] DEPARTMENT OF PATHOLOGY AND GENOMIC MEDICINE MCHC 34.4 31.0 - 37.0 g/dL [facility] DEPARTMENT OF PATHOLOGY AND GENOMIC MEDICINE RDW - SD 43.5 37.0 - 55.0 fL [facility] DEPARTMENT OF PATHOLOGY AND GENOMIC MEDICINE MPV 10.3 6.9 - 11.0 fL [facility] DEPARTMENT OF PATHOLOGY AND GENOMIC MEDICINE Platelet count 288 150 - 400 K/uL [facility] DEPARTMENT OF PATHOLOGY AND GENOMIC MEDICINE Nucleated RBC 0.00 /100 WBC [facility] DEPARTMENT OF PATHOLOGY AND GENOMIC MEDICINE Neutrophils 53.6 39.0 - 69.0 % [facility] DEPARTMENT OF PATHOLOGY AND GENOMIC MEDICINE Lymphocytes 35.7 25.0 - 45.0 % [facility] DEPARTMENT OF PATHOLOGY AND GENOMIC MEDICINE Monocytes 7.5 0.0 - 10.0 % [facility] DEPARTMENT OF PATHOLOGY AND GENOMIC MEDICINE Eosinophils 2.1 0.0 - 5.0 % [facility] DEPARTMENT OF PATHOLOGY AND GENOMIC MEDICINE Basophils 0.5 0.0 - 1.0 % [facility] DEPARTMENT OF PATHOLOGY AND GENOMIC MEDICINE Immature granulocytes 0.6 0.0 - 1.0 % [facility] DEPARTMENT OF PATHOLOGY AND GENOMIC MEDICINE Specimen Blood Performing Organization Address City/[facility] Centercomd Phone Number [facility] DEPARTMENT OF PATHOLOGY [address] [facility] [place] [address] AND [employer] MEDICINE Comprehensive metabolic panel (01/08/2018 5:00 AM [facility])Only the most recent of4 resultswithin the time period is included. Sodium 139 135 - 148 mEq/L [facility] DEPARTMENT OF PATHOLOGY AND GENOMIC MEDICINE Potassium 3.8 3.5 - 5.0 mEq/L [facility] DEPARTMENT OF PATHOLOGY AND GENOMIC MEDICINE Chloride 102 98 - 112 mEq/L [facility] DEPARTMENT OF PATHOLOGY AND GENOMIC MEDICINE CO2 23 (L) 24 - 31 mEq/L [facility] DEPARTMENT OF PATHOLOGY AND GENOMIC MEDICINE Anion gap 14 7 - 15 mEq/L [facility] DEPARTMENT OF Comment: PATHOLOGY AND GENOMIC Starting from February , anion gap calculation MEDICINE no longer incorporates potassium. Please note the change. BUN 12 6 - 20 mg/dL [facility] DEPARTMENT OF PATHOLOGY AND GENOMIC MEDICINE Creatinine 0.5 0.5 - 0.9 mg/dL [facility] DEPARTMENT OF PATHOLOGY AND GENOMIC MEDICINE Glucose 153 (H) 65 - 99 mg/dL [facility] DEPARTMENT OF PATHOLOGY AND GENOMIC MEDICINE Calcium 8.8 8.3 - 10.2 mg/dL [facility] DEPARTMENT OF PATHOLOGY AND GENOMIC MEDICINE Protein 7.2 6.3 - 8.3 g/dL [facility] DEPARTMENT OF PATHOLOGY AND GENOMIC MEDICINE Albumin 3.4 (L) 3.5 - 5.0 g/dL [facility] DEPARTMENT OF PATHOLOGY AND GENOMIC MEDICINE A/G ratio 0.9 0.7 - 3.8 [facility] DEPARTMENT OF PATHOLOGY AND GENOMIC MEDICINE Alkaline phosphatase 73 35 - 104 U/L [facility] DEPARTMENT OF PATHOLOGY AND GENOMIC MEDICINE AST 27 10 - 35 U/L [facility] DEPARTMENT OF PATHOLOGY AND GENOMIC MEDICINE ALT 35 5 - 50 U/L [facility] DEPARTMENT OF PATHOLOGY AND GENOMIC MEDICINE Total bilirubin 0.4 0.2 - 1.2 mg/dL [facility] DEPARTMENT OF PATHOLOGY AND GENOMIC MEDICINE Specimen Plasma specimen Performing Organization Address [facility] Phone Number [facility] DEPARTMENT OF PATHOLOGY [id number] [place] [id number] AND [employer] Basic metabolic panel (01/07/2018 5:45 AM [facility])Only the most recent of3 resultswithin the time period is included. Sodium 136 135 - 148 mEq/L [facility] DEPARTMENT OF PATHOLOGY AND GENOMIC [facility] Potassium 3.8 3.5 - 5.0 mEq/L [facility] DEPARTMENT OF PATHOLOGY AND [employer] MEDICINE Chloride 99 98 - 112 mEq/L [facility] DEPARTMENT OF PATHOLOGY AND GENOMIC MEDICINE CO2 23 (L) 24 - 31 mEq/L [facility] DEPARTMENT OF PATHOLOGY AND GENOMIC [facility] Anion gap 14 7 - 15 mEq/L [facility] DEPARTMENT OF Comment: PATHOLOGY AND GENOMIC Starting from February , anion gap calculation MEDICINE no longer incorporates potassium. Please note the change. BUN 8 6 - 20 mg/dL [facility] DEPARTMENT OF PATHOLOGY AND GENOMIC MEDICINE Creatinine 0.5 0.5 - 0.9 mg/dL [facility] DEPARTMENT OF PATHOLOGY AND GENOMIC [facility] Glucose 184 (H) 65 - 99 mg/dL [facility] DEPARTMENT OF PATHOLOGY AND [employer] MEDICINE Calcium 8.9 8.3 - 10.2 mg/dL [facility] DEPARTMENT OF PATHOLOGY AND [employer] [facility] Specimen Plasma specimen Performing Organization Address [facility] Centercode Phone Number [facility] DEPARTMENT OF PATHOLOGY [address] [place] [address]. [place] [address] AND [employer] [facility] Lactic acid level, SEPSIS - Now and repeat 2x every 3 hours (01/06/2018 10:00 PM [facility])Only the most recent of4 resultswithin the time period is included. Lactic acid 1.7 0.5 - 2.2 mmol/L [facility] DEPARTMENT OF PATHOLOGY AND [employer] [facility] Specimen Plasma specimen Performing Organization Address City/[facility]/Zipcode Phone Number [facility] DEPARTMENT OF PATHOLOGY [id number] [place] [address] AND [employer] [facility] Troponin (01/06/2018 12:15 AM [facility])Only the most recent of3 resultswithin the time period is included. Troponin <0.30 0.00 - 0.30 ng/mL [facility] DEPARTMENT OF PATHOLOGY Comment: AND GENOMIC MEDICINE 0.11 - 1.49 ng/mlMay indicate increased risk of acute coronary syndrome. >=1.5 ng/mlConsistent with acute myocardial infarction. The diagnostic value of a single normal or non-diagnostic result is questionable.Serial samples at 2-6 hour intervals are required to rule out acute myocardial injury. Specimen Plasma specimen Performing Organization Address [facility] Centercode Phone Number [facility] DEPARTMENT OF PATHOLOGY [address] [place] [address]. [place] [address] AND [facility] Lactic acid level (01/05/2018 8:30 PM [facility])Only the most recent of4 resultswithin the time period is included. Lactic acid 2.7 (H) 0.5 - 2.2 mmol/L [facility] DEPARTMENT OF PATHOLOGY AND [facility] Specimen Plasma specimen Performing Organization Address [facility] Centercode Phone Number [facility] DEPARTMENT OF PATHOLOGY [address] [place] [address]. [place] [address] AND [facility] Thyroid stimulating hormone (01/05/2018 5:02 PM [facility]) TSH 0.90 0.27 - 4.20 uIU/mL [facility] DEPARTMENT OF PATHOLOGY AND [facility] Specimen Plasma specimen Performing Organization Address [facility] Phone Number [facility] DEPARTMENT OF PATHOLOGY [address] [place] [address]. [place] [address] AND [facility] Magnesium level (01/05/2018 5:02 PM [facility])Only the most recent of2 resultswithin the time period is included. Magnesium 1.6 1.6 - 2.6 mg/dL [facility] DEPARTMENT OF PATHOLOGY AND [facility] Specimen Plasma specimen Performing Organization Address [facility] Centercomd Phone Number [facility] DEPARTMENT OF PATHOLOGY [address] [place] [address]. [place] [address] AND [facility] ECG 12 lead (01/05/2018 4:47 PM [facility])Only the most recent of2 resultswithin the time period is included. Ventricular rate 145 [facility] Atrial rate [address] [facility] [address] interval 152 [facility] QRSD interval 60 [facility] QT interval 250 [facility] QTC interval 388 [facility] P axis 1 27 [facility] QRS axis 1 -11 [facility] T wave axis 6 [facility] EKG impression Sinus tachycardia-Septal infarct (cited on or before 2017)-Possible Lateral infarct (cited on or before 05-JAN-2018)-Abnormal ECG-In automated comparison with ECG of 04-JAN-2018 00:24,-CT interva [facility] l has increased-QRS axis shifted right-Questionable change in initial forces of Septal leads-Inverted T waves have replaced nonspecific T wave abnormality in Inferior leads-Nonspecific T wave abnormality now evident in Lateral leads- Performing Organization Address City/State/Zipcode Phone Number [facility] NIRAJ [address] [place] [address] CT Renal Stone Protocol (01/05/2018 3:30 PM [facility]) Narrative Performed At EXAMINATION:CT RENAL STONE PROTOCOL [...] Dedicated chest imaging could provide further assessment. [facility]-[id number] Procedure Note Interface, Radiology Results Incoming - 01/05/2018 3:52 PM [facility] EXAMINATION: CT RENAL STONE PROTOCOL CLINICAL HISTORY: [...] Dedicated chest imaging could provide further assessment. [facility]-[id number] Performing Organization Address City/[facility]/Zipcode Phone Number [facility] [address] [place] [address] Phosphorus level (01/04/2018 10:30 AM [facility]) Phosphorus 3.5 2.4 - 4.5 mg/dL [facility] DEPARTMENT OF PATHOLOGY AND [employer] MEDICINE Specimen Plasma specimen Performing Organization Address City/[facility]/Zipcode Phone Number [facility] DEPARTMENT OF PATHOLOGY [address] [place] [address] AND [employer] MEDICINE Hemoglobin A1c (01/04/2018 10:30 AM [facility]) Hemoglobin A1C 9.3 (H) 4.0 - 6.0 % [facility] DEPARTMENT OF PATHOLOGY Comment: AND [employer] MEDICINE Less than 6% - Goal of therapy for Type II Diabetes Less than 7%-Goal of therapy for Type I Diabetes Less than 8%-Acceptable control for Type I or Type II Diabetes Greater than 8%-Unacceptable control; action indicated. ([id number]) Specimen Blood Performing Organization Address City/[facility]/Zipcode Phone Number [facility] DEPARTMENT OF PATHOLOGY [address] [place] [address] AND GENOMIC MEDICINE ECG ED Preliminary Interpretation - NOT AN ORDER (01/04/2018 3:46 AM [facility])Only the most recent of2 resultswithin the time [...] culture, aerobic & anaerobic (01/04/2018 3:10 AM [facility])Only the most recent of2 resultswithin the time period is included. Blood culture isolate No growth after 5 days of incubation. [facility] DEPARTMENT OF Comment: PATHOLOGY AND GENOMIC Specimen Information MEDICINE Specimen Source: Blood Specimen Site: Antecubital, right Specimen Blood - Antecubital, right Performing Organization Address [facility] Phone Number [facility] DEPARTMENT OF PATHOLOGY AND [address] [place] [address] GENOMIC MEDICINE XR Chest 2 Vw (01/04/2018 1:52 AM [facility]) Narrative Performed At EXAMINATION: XR CHEST 2 VW RADIANT CLINICAL HISTORY: Fever COMPARISON:None. IMPRESSION: Mildly decreased lung volumes. No focal or confluent airspace consolidation. No pleural effusion or pneumothorax. The cardiomediastinal silhouette is normal. No acute osseous abnormalities. [facility]-[id number] Procedure Note Interface, Radiology Results Incoming - 01/04/2018 2:04 AM [facility] EXAMINATION: XR CHEST 2 VW CLINICAL HISTORY: Fever COMPARISON: None. IMPRESSION: Mildly decreased lung volumes. No focal or confluent airspace consolidation. No pleural effusion or pneumothorax. The cardiomediastinal silhouette is normal. No acute osseous abnormalities. [facility]-[id number] Performing Organization Address [facility] Centercode Phone Number [facility] [address] [place] [address] Respiratory pathogen panel (01/04/2018 12:55 AM [facility]) Respiratory pathogen Negative for all pathogens tested: [facility] DEPARTMENT OF panel Negative for Adenovirus [...] Left Performing Organization Address City/State/Zipcode Phone Number [facility] DEPARTMENT OF PATHOLOGY AND [address] [place] [id number] [place] [address] Influenza antigen (01/04/2018 12:55 AM [facility]) Influenza antigen Negative for Influenza A/B antigen. [facility] DEPARTMENT OF PATHOLOGY Comment: AND GENOMIC MEDICINE Specimen Information Specimen Source: Nares Specimen Site: Left Specimen Nares - Left Performing Organization Address City/State/Zipcode Phone Number [facility] DEPARTMENT OF PATHOLOGY [id number] [place] [address] AND [facility] Salicylate level (01/04/2018 12:50 AM [facility]) Salicylate <0.4 (L) 3.0 - 30.0 mg/dL [facility] DEPARTMENT OF PATHOLOGY AND GENOMIC MEDICINE Specimen Plasma specimen Performing Organization Address City/[facility]/Zipcode Phone Number [facility] DEPARTMENT OF PATHOLOGY [address] [place] [address] AND [employer] [facility] Urinalysis screen and microscopy, with reflex to culture (01/04/2018 12:48 AM [facility]) Specimen site Clean catch [facility] DEPARTMENT OF PATHOLOGY AND GENOMIC MEDICINE Color, UA Yellow [facility] DEPARTMENT OF PATHOLOGY AND GENOMIC MEDICINE Appearance, UA Cloudy [facility] DEPARTMENT OF PATHOLOGY AND GENOMIC MEDICINE Specific gravity, UA 1.021 1.001 - 1.030 [facility] DEPARTMENT OF PATHOLOGY AND GENOMIC MEDICINE pH, UA 5.0 5.0 - 9.0 [facility] DEPARTMENT OF PATHOLOGY AND GENOMIC MEDICINE Protein, UA 1+ (A) Negative [facility] DEPARTMENT OF PATHOLOGY AND GENOMIC MEDICINE Glucose, UA 3+ (A) Negative [facility] DEPARTMENT OF PATHOLOGY AND GENOMIC MEDICINE Ketones, UA Negative Negative [facility] DEPARTMENT OF PATHOLOGY AND GENOMIC MEDICINE Bilirubin, UA Negative Negative [facility] DEPARTMENT OF PATHOLOGY AND GENOMIC MEDICINE Blood, UA Moderate (A) Negative [facility] DEPARTMENT OF PATHOLOGY AND GENOMIC MEDICINE Nitrite, UA Positive (A) Negative [facility] DEPARTMENT OF PATHOLOGY AND GENOMIC MEDICINE Urobilinogen, UA <2.0 <2.0 E.U./dL [facility] DEPARTMENT OF PATHOLOGY AND GENOMIC MEDICINE Leukocyte esterase, UA Large (A) Negative [facility] DEPARTMENT OF PATHOLOGY AND GENOMIC MEDICINE Epithelial cells, UA 1 /HPF [facility] DEPARTMENT OF PATHOLOGY AND GENOMIC MEDICINE WBC, UA >200 (H) 0 - 4 /HPF [facility] DEPARTMENT OF PATHOLOGY AND GENOMIC MEDICINE RBC, UA 5 (H) 0 - 2 /HPF [facility] DEPARTMENT OF PATHOLOGY AND GENOMIC MEDICINE Bacteria, UA Many (A) None seen [facility] DEPARTMENT OF PATHOLOGY AND GENOMIC MEDICINE WBC clumps, UA Few (A) [facility] DEPARTMENT OF PATHOLOGY AND GENOMIC MEDICINE Yeast, UA None seen [facility] DEPARTMENT OF PATHOLOGY AND GENOMIC MEDICINE Yeast with pseudohyphae, UA None seen [facility] DEPARTMENT OF PATHOLOGY AND GENOMIC MEDICINE Specimen Urine Performing Organization Address City/[facility] Centercode Phone Number [facility] DEPARTMENT OF PATHOLOGY [address] [place] [address] AND [facility] hCG qualitative, urine screen (01/04/2018 12:48 AM [facility]) hCG qualitative, urine NegativeComment: [facility] DEPARTMENT OF Sensitivity of HCG test: 25 PATHOLOGY AND GENOMIC mIU/ml MEDICINE Specimen Urine Performing Organization Address City/[facility]/Zipcode Phone Number [facility] DEPARTMENT OF PATHOLOGY [address] [place] [address] AND [facility] MEDICINE Gram stain (01/04/2018 12:48 AM [facility]) Gram stain result Occasional WBC's [facility] DEPARTMENT OF PATHOLOGY Moderate Gram negative rods AND GENOMIC MEDICINE Occasional Gram positive rods Comment: Specimen Information Specimen Source: Urine Specimen Site: Clean catch Specimen Urine Performing Organization Address City/[facility] Centercode Phone Number [facility] DEPARTMENT OF PATHOLOGY AND [address] [place] [address] [facility] Urine culture (01/04/2018 12:48 AM [facility]) Urine culture isolate Escherichia coli [facility] DEPARTMENT OF >10-5 cfu/ml PATHOLOGY AND GENOMIC This isolate is a deputy coroner of ESBL (extended spectrum beta MEDICINE lactamase).This organism may be clinically resistant to penicillins, cephalosporins or aztreonam despite apparent in vitro susceptibility to some of these agents. (A) Comment: Specimen Information Specimen Source: Urine Specimen Site: Clean catch Urine culture isolate Mixed Gram positive joe [facility] DEPARTMENT OF 10-3 cfu/ml PATHOLOGY AND [facility] (A) MEDICINE Specimen Urine Organism Antibiotic Method [...] Susceptible Performing Organization Address City/State/Zipcode Phone Number [facility] DEPARTMENT OF PATHOLOGY AND [address] [place] [address] [facility] after 11/04/2017 Insurance Payer Benefit Plan / Group Subscriber ID Type Phone Address AETNA MEDICARE AETNA MEDICARE HMO/PPO MCR xxxxxxxx O [facility] xxxxxxxxx O Advance Directives Patient has advance care planning documents on file. For more information, please contact:Sergio Ferreira[address] [place] [address]
--- OUTSIDE RECORDS SUMMARY | 2018-11-05 14:05 | XMS REPORT ---
:1985 [facility] Address [address] [place] [address] Dr. Cortés [address] [place] [address] Care Team Providers Name Role Phone Unavailable Unavailable Unavailable Problems This patient has no known problems. Allergies, Adverse Reactions, Alerts This patient has no known allergies or adverse reactions. Medications This patient has no known medications.
[2018-11-05] MEDS ORDERED: ACETAMINOPHEN 325 MG TABLET ONE (15:49)
[2018-11-05 16:06] LABS: Absolute Lymphocytes (CBC) 2.5 K/uL (0.7-4.9); Absolute Monocytes 0.5 K/uL (0.1-1.3); Basophils % 0.3 % (0-1.3); Eosinophils % 0.3 % (0-4.4); Lymphocytes % 20.8 % (15.3-44.8); MCH 32.7 pg (27.0-35.0); MCV 95.6 fL (80-100); MPV 9.2 fL (7.6-11.3); Monocytes % 3.8 % (3.3-12.3); RBC Red Blood Cell Count 4.19 M/uL (3.86-4.86)
[2018-11-05 16:23] LABS: BUN Blood Urea Nitrogen 11 mg/dL (7-18); Bicarbonate 24 mmol/L (21-32); Glucose Level 101 mg/dL (74-106); HCG, Quantitative 52 mIU/mL (1-3); Potassium 3.9 mmol/L (3.5-5.1); Sodium Level 137 mmol/L (136-145)
[2018-11-05 16:44] LABS: Urine Blood NEGATIVE (NEG); Urine Glucose NEGATIVE (NEG); Urine Protein NEGATIVE (NEG)
--- NOTE | 2018-11-05 16:50 | ER ---
Nurse's Notes [facility] Name: Mckenna Haney Age: 33 yrs Sex: Female : 1985 Arrival Date: 11/05/2018 Time: 14:03 Bed 19 Private MD: Out, [facility] Diagnosis: Headache;Encounter for test, result positive Presentation: 11/05 14:45 Presenting complaint: Patient states: LMP- 10/03/18; i have been having pain in my lower hj back for 3-4 days and stomach pain and my sugar is high- 171; reports nausea and vomiting;. Transition of care: patient was not received from another setting of care. Onset of symptoms was November 05, 2018. Risk Assessment: Do you want to hurt yourself or someone else? Patient reports no desire to harm self or others. Initial Sepsis Screen: Does the patient meet any 2 criteria? No. Patient's initial sepsis screen is negative. Does the patient have a suspected source of infection? No. Patient's initial sepsis screen is negative. Care prior to arrival: None. 14:45 Method Of Arrival: Ambulatory 14:45 Acuity: LILO 3 hj Triage Assessment: 14:50 General: Appears in no apparent distress. uncomfortable, Behavior is calm, cooperative, hj appropriate for age. Pain: Complains of pain in back and abdomen. Musculoskeletal: Capillary refill < 3 seconds. BELT SPLICER: 14:51 [facility] 10/03/2018 Historical: - Allergies: 14:49 Ibuprofen (Hives); hj - Home Meds: 14:49 atorvastatin 10 mg Oral tab 1 tab once daily [Active]; glipizide 10 mg Oral tab 1 tab hj once daily [Active]; Januvia 100 mg Oral tab 1 tab once daily [Active]; lisinopril 2.5 mg Oral tab 1 tab once daily [Active]; metformin 1,000 mg Oral tab 1 tab 2 times per day [Active]; metronidazole 500 mg Oral tab 2 times per day [Active]; montelukast 10 mg Oral tab 1 tab once daily [Active]; - PMHx: 14:49 Diabetes - NIDDM; High Cholesterol; Hypertension; hj - PSHx: 14:49 Cholecystectomy; hj - Immunization history:: Adult Immunizations up to date. - Social history:: Smoking status: Patient/guardian denies using tobacco, Patient/guardian denies using alcohol. - Ebola Screening: : Patient negative for fever greater than or equal to 101.5 degrees Fahrenheit, and additional compatible Ebola Virus Disease symptoms Patient denies exposure to infectious person Patient denies travel to an Ebola-affected area in the 21 days before illness onset. - Family history:: not pertinent. - Hospitalizations: : No recent hospitalization is reported. Screenin:50 Abuse screen: Denies threats or abuse. Denies injuries from another. Nutritional hj screening: No deficits noted. Tuberculosis screening: No symptoms or risk factors identified. Fall Risk None identified. Assessment: 14:55 General: Appears in no apparent distress. obese, well groomed, Behavior is calm, tw2 cooperative, appropriate for age. Pain: Complains of pain in back and abdomen. Neuro: Level of Consciousness is awake, alert, obeys commands, Oriented to person, place, time, situation. Cardiovascular: Heart tones S1 S2 Patient's skin is warm and dry. Respiratory: Airway is patent Respiratory effort is even, unlabored, Respiratory pattern is regular, symmetrical, Breath sounds are clear bilaterally. GI: No signs and/or symptoms were reported involving the gastrointestinal system. Abdomen is flat, Bowel sounds present X 4 quads. GI: Reports vomiting. : No signs and/or symptoms were reported regarding the genitourinary system. EENT: No signs and/or symptoms were reported regarding the EENT system. Derm: No signs and/or symptoms reported regarding the dermatologic system. Musculoskeletal: Range of motion: intact in all extremities. 16:01 Reassessment: Patient appears in no apparent distress at this time. No changes from tw2 previously documented assessment. Patient and/or family updated on plan of care and expected duration. Pain level reassessed. Patient is alert, oriented x 3, equal unlabored respirations, skin warm/dry/pink. 16:48 Reassessment: provider at bedside at this time. tw2 16:48 Reassessment: Patient appears in no apparent distress at this time. No changes from tw2 previously documented assessment. Patient and/or family updated on plan of care and expected duration. Pain level reassessed. Patient is alert, oriented x 3, equal unlabored respirations, skin warm/dry/pink. Vital Signs: 14:51 BP 108 / 89; Pulse 98; Resp 18; Temp 97.7(R); Pulse Ox 100% on R/A; Weight 96.16 kg; hj Height 5 ft. 4 in. (162.56 cm); 16:01 BP 99 / 66; Pulse 79; Resp 17; Pulse Ox 100% on R/A; tw2 16:49 BP 107 / 83; Pulse 80; Resp 17; Pulse Ox 99% on R/A; tw2 14:51 Body Mass Index 36.39 (96.16 kg, 162.56 cm) ED Course: 14:03 Patient arrived in ED. sb2 14:03 Out, [facility] is Private Physician. sb2 14:48 Triage completed. hj 14:50 Arm band placed on right wrist. hj 14:52 Patient has correct armband on for positive identification. Placed in gown. Bed in low hj position. Call light in reach. Side rails up X 1. Adult w/ patient. 14:54 Matilda Lopez FNP is PHCP. kav 14:54 Prince Weber MD is Attending Physician. kav 14:55 Matilda Lopez FNP is PHCP. kav 15:10 Urine collected: clean catch specimen, clear. dh3 15:16 Oriana Chong, MARIN is Primary Nurse. tw2 15:25 Inserted saline lock: 22 gauge in right antecubital area, using aseptic technique. tw2 Blood collected. 16:48 Seth Azevedo MD is Referral Physician. kav 16:50 No provider procedures requiring assistance completed. tw2 16:55 IV discontinued, intact, bleeding controlled, No redness/swelling at site. Pressure tw2 dressing applied. Administered Medications: 15:45 Drug: Tylenol 650 mg Route: PO; tw2 16:44 Follow up: Response: No adverse reaction tw2 Outcome: 16:50 Discharge ordered by . kav 16:55 Discharged to home ambulatory. tw2 16:55 Condition: stable 16:55 Discharge instructions given to patient, Instructed on discharge instructions, follow up and referral plans. Demonstrated understanding of instructions, follow-up care. 16:56 Patient left the ED. tw2 Signatures: Matilda Lopez FNP FUTURES TRADER ka Benjamin Evans RN RN Oriana Chong RN RN tw2 Steffanie Casey 3 Diana Spence sb2 Corrections: (The following items were deleted from the chart) 14:50 14:45 Presenting complaint: Patient states: LMP- 10/03/18; i have been having pain in my hj lower back for 3-4 days and stomach pain; reports nausea and vomiting; was here last Nov and was tested positive for test; 14:53 14:51 Pulse 98bpm; Resp 18bpm; Pulse Ox 100% RA; Temp 97.7F Rectal; 96.16 kg; Height 5 hj ft. 4 in.; BMI: 36.3; hj
--- NOTE | 2018-11-05 16:50 | EDPHYS ---
Physician Documentation [facility] Name: Mckenna Haney Age: 33 yrs Sex: Female : 1985 Arrival Date: 11/05/2018 Time: 14:03 Bed 19 Private MD: Out, [facility] ED Physician Prince Weber HPI: 11/05 14:57 This 33 yrs old Female presents to ER via Ambulatory with complaints of Back kav Pain, Abdominal Pain, Vomiting. 15:06 The patient presents with pain that is acute. The symptoms are located in the low back. kav Onset: The symptoms/episode began/occurred acutely. The pain does not radiate. Associated signs and symptoms: Pertinent positives: headache, Pertinent negatives: chest pain, fever, nausea, vomiting. The problem was sustained from unknown cause. Modifying factors: The patient symptoms are alleviated by nothing, the patient symptoms are aggravated by nothing. The patient has experienced a previous episode, approximately 1 days ago, and the symptoms today are exactly the same. The patient has been recently seen by a physician: with similar presenting complaints, [facility] on 10/29/18. Reports being seen at [facility] ED for similar c/o and DX: UTI and given RX: Nitrofurantoin. She reports having two days of antibiotic therapy left to take. Reports that she has had a headache but has taken no Tylenol because "...she thinks she is ". . [employer]: 14:51 LMP 10/03/2018 Historical: - Allergies: 14:49 Ibuprofen (Hives); hj - Home Meds: 14:49 atorvastatin 10 mg Oral tab 1 tab once daily [Active]; glipizide 10 mg Oral tab 1 tab once daily [Active]; Januvia 100 mg Oral tab 1 tab once daily [Active]; lisinopril 2.5 mg Oral tab 1 tab once daily [Active]; metformin 1,000 mg Oral tab 1 tab 2 times per day [Active]; metronidazole 500 mg Oral tab 2 times per day [Active]; montelukast 10 mg Oral tab 1 tab once daily [Active]; - PMHx: 14:49 Diabetes - NIDDM; High Cholesterol; Hypertension; hj - PSHx: 14:49 Cholecystectomy; hj - Immunization history:: Adult Immunizations up to date. - Social history:: Smoking status: Patient/guardian denies using tobacco, Patient/guardian denies using alcohol. - Ebola Screening: : Patient negative for fever greater than or equal to 101.5 degrees Fahrenheit, and additional compatible Ebola Virus Disease symptoms Patient denies exposure to infectious person Patient denies travel to an Ebola-affected area in the 21 days before illness onset. - Family history:: not pertinent. - Hospitalizations: : No recent hospitalization is reported. ROS: 15:10 Constitutional: Negative for fever, chills, and weight loss, Eyes: Negative for injury, kav pain, redness, and discharge, ENT: Negative for injury, pain, and discharge, Neck: Negative for injury, pain, and swelling, Cardiovascular: Negative for chest pain, palpitations, and edema, Respiratory: Negative for shortness of breath, cough, wheezing, and pleuritic chest pain, Abdomen/GI: Negative for abdominal pain, nausea, vomiting, diarrhea, and constipation, MS/Extremity: Negative for injury and deformity, Skin: Negative for injury, rash, and discoloration, Neuro: Negative for headache, weakness, numbness, tingling, and seizure, Psych: Negative for depression, anxiety, suicide ideation, homicidal ideation, and hallucinations, Allergy/Immunology: Negative for hives, rash, and allergies, Endocrine: Negative for neck swelling, polydipsia, polyuria, polyphagia, and marked weight changes, Hematologic/Lymphatic: Negative for swollen nodes, abnormal bleeding, and unusual bruising. 15:10 Back: Positive for flank pain, bilaterally. 15:10 : Positive for urinary frequency. Exam: 15:10 Constitutional: This is a well developed, well nourished patient who is awake, alert, kav and in no acute distress. Head/Face: Normocephalic, atraumatic. Eyes: Pupils equal round and reactive to light, extra-ocular motions intact. Lids and lashes normal. Conjunctiva and sclera are non-icteric and not injected. Cornea within normal limits. Periorbital areas with no swelling, redness, or edema. ENT: Nares patent. No nasal discharge, no septal abnormalities noted. Tympanic membranes are normal and external auditory canals are clear. Oropharynx with no redness, swelling, or masses, exudates, or evidence of obstruction, uvula midline. Mucous membranes moist. Neck: Trachea midline, no thyromegaly or masses palpated, and no cervical lymphadenopathy. Supple, full range of motion without nuchal rigidity, or vertebral point tenderness. No Meningismus. Chest/axilla: Normal chest wall appearance and motion. Nontender with no deformity. No lesions are appreciated. Cardiovascular: Regular rate and rhythm with a normal S1 and S2. No gallops, murmurs, or rubs. Normal PMI, no JVD. No pulse deficits. Respiratory: Lungs have equal breath sounds bilaterally, clear to auscultation and percussion. No rales, rhonchi or wheezes noted. No increased work of breathing, no retractions or nasal flaring. Abdomen/GI: Soft, non-tender, with normal bowel sounds. No distension or tympany. No guarding or rebound. No evidence of tenderness throughout. Back: No spinal tenderness. No costovertebral tenderness. Full range of motion. Skin: Warm, dry with normal turgor. Normal color with no rashes, no lesions, and no evidence of cellulitis. MS/ Extremity: Pulses equal, no cyanosis. Neurovascular intact. Full, normal range of motion. Neuro: Awake and alert, GCS 15, oriented to person, place, time, and situation. Cranial nerves II-XII grossly intact. Motor strength 5/5 in all extremities. Sensory grossly intact. Cerebellar exam normal. Normal gait. Psych: Awake, alert, with orientation to person, place and time. Behavior, mood, and affect are within normal limits. 15:11 Head/face: Noted is formerly [facility] Vital Signs: 14:51 BP 108 / 89; Pulse 98; Resp 18; Temp 97.7(R); Pulse Ox 100% on R/A; Weight 96.16 kg; Height 5 ft. 4 in. (162.56 cm); 16:01 BP 99 / 66; Pulse 79; Resp 17; Pulse Ox 100% on R/A; tw2 16:49 BP 107 / 83; Pulse 80; Resp 17; Pulse Ox 99% on R/A; tw2 14:51 Body Mass Index 36.39 (96.16 kg, 162.56 cm) MDM: 14:54 Medical screening is not applicable. formerly [facility] 15:14 Data reviewed: vital signs, nurses notes. formerly [facility] 11/05 15:06 Order name: Quantitative Hcg; Complete Time: 16:46 kav 11/05 15:06 Order name: Abo/rh Typing; Complete Time: 16:46 kav 10 15:06 Order name: Basic Metabolic Panel; Complete Time: 16:46 kav 10 15:06 Order name: CBC with Diff; Complete Time: 16:10 kav 10 15:22 Order name: Urine Dipstick--Ancillary (enter results); Complete Time: 16:46 eb 11/05 15:22 Order name: Urine --Ancillary (enter results); Complete Time: 16:46 eb 11/05 15:06 Order name: Urine Test (obtain specimen); Complete Time: 15:17 kav 11/05 15:06 Order name: IV Saline Lock; Complete Time: 15:39 kav 11/05 15:06 Order name: Labs collected and sent; Complete Time: 15:39 kav 11/05 15:06 Order name: NPO; Complete Time: 15:16 kav 11/05 15:06 Order name: Urine Dipstick-Ancillary (obtain specimen); Complete Time: 15:17 kav Administered Medications: 15:45 Drug: Tylenol 650 mg Route: PO; tw2 16:44 Follow up: Response: No adverse reaction tw2 Disposition: 17:03 Co-signature as Attending Physician, Prince Weber MD. rn Disposition: 11/05/18 16:50 Discharged to Home. Impression: Headache, Encounter for test, result positive. - Condition is Stable. - Discharge Instructions: General Headache Without Cause, First Trimester of . - Medication Reconciliation Form, Thank You Letter form. - Follow up: Seth Azevedo; When: 2 - 3 days; Reason: Recheck today's complaints, Continuance of care, Re-evaluation by your physician. - Problem is new. - Symptoms have improved. - Notes: Continue taking your previously prescribed antibiotic therapy: Nitrofurantoin prescribed to you by [facility]. Follow up with your OBGYN for further evaluation of Preganancy Signatures: Dispatcher [employer] EDMS Matilda Lopez, BENEFIT SPECIALIST BENEFIT SPECIALIST Prince Smith MD MD rn Joaquin, Henry, RN RN hj Wise, Tara, RN RN tw2 Corrections: (The following items were deleted from the chart) 16:56 16:50 11/05/2018 16:50 Discharged to Home. Impression: Headache; Encounter for tw2 test, result positive. Condition is Stable. Forms are Medication Reconciliation Form, Thank You Letter, Antibiotic Education, Prescription Opioid Use. Follow up: Seth Azevedo; When: 2 - 3 days; Reason: Recheck today's complaints, Continuance of care, Re-evaluation by your physician. Problem is new. Symptoms have improved. kav
== END 2018-11-05 16:56 | disposition home or self-care (01) ==
LOC: ER 14:01
DX: Z32.01 Encounter for pregnancy test, result positive (principal); I10 Essential (primary) hypertension; E11.9 Type 2 diabetes mellitus without complications; Z88.6 Allergy status to analgesic agent
CPT/HCPCS: 36415; 80048; 81003; 81025; 84702; 85025; 86900; 86901; 99283

== ENCOUNTER 2018-11-07 23:02 | Emergency (ER) | payer MEDICARE ==
--- OUTSIDE RECORDS SUMMARY | 2018-11-07 23:04 | XMS REPORT | Clinical Summary ---
:1985 Author Organization [facility] Address [address] [place] [address] Care Team Providers Name Role Phone Miranda [...] Juvencio Monsalve MD Sodhi, Nidhi, MD after 11/06/2017 Immunizations Name Dates Previously Given Next Due [...] Taken Blood Pressure 109/62 01/09/2018 12:13 PM [facility] Pulse 105 01/09/2018 12:13 PM [facility] Temperature 36.8 C (98.2 F) 01/09/2018 12:13 PM [facility] Respiratory Rate 18 01/09/2018 12:13 PM [facility] Oxygen Saturation 94% 01/09/2018 12:13 PM [facility] Inhaled Oxygen Concentration - - Weight 107 kg (235 lb 12.8 oz) 01/04/2018 6:13 AM [facility] Height 162.6 cm (5' 4") 01/04/2018 12:40 AM [facility] Body Mass Index 40.47 01/04/2018 6:13 AM [facility] Plan of Treatment Health Maintenance Due Date [...] Routine 01/09/2018 12:14 Results for this PM [facility] procedure are in the results section. POC GLUCOSE Routine 01/09/2018 8:49 Results for this AM [facility] [employer] procedure are in the results section. POC GLUCOSE Routine 01/08/2018 3:35 Results for this PM [facility] [employer] procedure are in the results section. POC GLUCOSE Routine 01/08/2018 12:08 Results for this PM [facility] procedure are in the results section. US GUIDED VASCULAR Routine 01/08/2018 9:42 Results for this ACCESS AM [facility] [employer] procedure are in the results section. IR PICC PLACEMENT Routine 01/08/2018 9:42 Results for this AM [facility] [employer] procedure are in the results section. POC GLUCOSE Routine 01/08/2018 7:36 Results for this AM [facility] [employer] procedure are in the results section. ZZESTIMATED GFR Routine 01/08/2018 5:00 Results for this AM [facility] [employer] procedure are in the results section. PROTHROMBIN TIME WITH Routine 01/08/2018 5:00 Results for this INR AM [facility] [employer] procedure are in the results section. COMPREHENSIVE METABOLIC Routine 01/08/2018 5:00 Results for this PANEL AM [facility] [employer] procedure are in the results section. HC COMPLETE BLD COUNT Routine 01/08/2018 5:00 Results for this W/AUTO DIFF AM [facility] [employer] procedure are in the results section. POC GLUCOSE Routine 01/07/2018 9:01 Results for this PM [facility] [employer] procedure are in the results section. POC GLUCOSE Routine 01/07/2018 4:41 Results for this PM [facility] procedure are in the results section. POC GLUCOSE Routine 01/07/2018 12:24 Results for this PM [facility] procedure are in the results section. POC GLUCOSE Routine 01/07/2018 7:52 Results for this AM [facility] procedure are in the results section. ZZESTIMATED GFR Routine 01/07/2018 5:45 Results for this AM [facility] procedure are in the results section. BASIC METABOLIC PANEL Routine 01/07/2018 5:45 Results for this AM [facility] [employer] procedure are in the results section. HC COMPLETE BLD COUNT Routine 01/07/2018 5:45 Results for this W/AUTO DIFF AM [facility] [employer] procedure are in the results section. POC GLUCOSE Routine 01/07/2018 5:35 Results for this AM [facility] [employer] procedure are in the results section. LACTIC ACID LEVEL, Timed 01/06/2018 10:00 Results for this SEPSIS - NOW AND REPEAT PM [facility] procedure are in 2X EVERY 3 HOURS the results section. POC GLUCOSE Routine 01/06/2018 8:54 Results for this PM [facility] [employer] procedure are in the results section. LACTIC ACID LEVEL, Timed 01/06/2018 5:00 Results for this SEPSIS - NOW AND REPEAT PM [facility] [employer] procedure are in 2X EVERY 3 HOURS the results section. POC GLUCOSE Routine 01/06/2018 3:53 Results for this PM [facility] [employer] procedure are in the results section. LACTIC ACID LEVEL, Timed 01/06/2018 1:55 Results for this SEPSIS - NOW AND REPEAT PM [facility] procedure are in 2X EVERY 3 HOURS the results section. POC GLUCOSE Routine 01/06/2018 11:20 Results for this AM [facility] [employer] procedure are in the results section. POC GLUCOSE Routine 01/06/2018 7:58 Results for this AM [facility] [employer] procedure are in the results section. ZZESTIMATED GFR Routine 01/06/2018 5:34 Results for this AM [facility] [employer] procedure are in the results section. COMPREHENSIVE METABOLIC Routine 01/06/2018 5:34 Results for this PANEL AM [facility] [employer] procedure are in the results section. HC COMPLETE BLD COUNT Routine 01/06/2018 5:34 Results for this W/AUTO DIFF AM [facility] [employer] procedure are in the results section. POC GLUCOSE Routine 01/06/2018 5:24 Results for this AM [facility] procedure are in the results section. TROPONIN Timed 01/06/2018 12:15 Results for this AM [facility] procedure are in the results section. LACTIC ACID LEVEL, Timed 01/05/2018 11:40 Results for this SEPSIS - NOW AND REPEAT PM [facility] procedure are in 2X EVERY 3 HOURS the results section. TROPONIN Timed 01/05/2018 8:30 Results for this PM [facility] procedure are in the results section. LACTIC ACID LEVEL Timed 01/05/2018 8:30 Results for this PM [facility] [employer] procedure are in the results section. ZZESTIMATED GFR STAT 01/05/2018 5:02 Results for this PM [facility] procedure are in the results section. THYROID STIMULATING STAT 01/05/2018 5:02 Results for this HORMONE PM [facility] procedure are in the results section. TROPONIN Timed 01/05/2018 5:02 Results for this PM [facility] procedure are in the results section. MAGNESIUM LEVEL STAT 01/05/2018 5:02 Results for this PM [facility] procedure are in the results section. BASIC METABOLIC PANEL STAT 01/05/2018 5:02 Results for this PM [facility] procedure are in the results section. LACTIC ACID LEVEL STAT 01/05/2018 5:00 Results for this PM [facility] procedure are in the results section. POC GLUCOSE Routine 01/05/2018 4:49 Results for this PM [facility] procedure are in the results section. ECG 12-LEAD Routine 01/05/2018 4:47 Results for this PM [facility] procedure are in the results section. CT RENAL STONE PROTOCOL Routine 01/05/2018 3:30 Results for this PM [facility] procedure are in the results section. POC GLUCOSE Routine 01/05/2018 12:11 Results for this PM [facility] procedure are in the results section. POC GLUCOSE Routine 01/05/2018 7:47 Results for this AM [facility] procedure are in the results section. ZZESTIMATED GFR Routine 01/05/2018 5:25 Results for this AM [facility] [employer] procedure are in the results section. COMPREHENSIVE METABOLIC Routine 01/05/2018 5:25 Results for this PANEL AM [facility] procedure are in the results section. HC COMPLETE BLD COUNT Routine 01/05/2018 5:25 Results for this W/AUTO DIFF AM [facility] procedure are in the results section. POC GLUCOSE Routine 01/04/2018 8:39 Results for this PM [facility] [employer] procedure are in the results section. POC GLUCOSE Routine 01/04/2018 4:53 Results for this PM [facility] procedure are in the results section. POC GLUCOSE Routine 01/04/2018 2:30 Results for this PM [facility] procedure are in the results section. POC GLUCOSE Routine 01/04/2018 12:02 Results for this PM [facility] procedure are in the results section. ZZESTIMATED GFR STAT 01/04/2018 10:30 Results for this AM [facility] procedure are in the results section. HEMOGLOBIN A1C STAT 01/04/2018 10:30 Results for this AM [facility] procedure are in the results section. PHOSPHORUS LEVEL STAT 01/04/2018 10:30 Results for this AM [facility] procedure are in the results section. MAGNESIUM LEVEL STAT 01/04/2018 10:30 Results for this AM [facility] procedure are in the results section. LACTIC ACID LEVEL STAT 01/04/2018 10:30 Results for this AM [facility] procedure are in the results section. HC COMPLETE BLD COUNT STAT 01/04/2018 10:30 Results for this W/AUTO DIFF AM [facility] procedure are in the results section. BASIC METABOLIC PANEL STAT 01/04/2018 10:30 Results for this AM [facility] procedure are in the results section. POC GLUCOSE Routine 01/04/2018 5:27 Results for this AM [facility] procedure are in the results section. ECG ED PRELIMINARY Routine 01/04/2018 3:46 Results for this INTERPRETATION AM [facility] [employer] procedure are in the results section. ECG ED PRELIMINARY Routine 01/04/2018 3:46 Results for this INTERPRETATION AM [facility] [employer] procedure are in the results section. BLOOD CULTURE, AEROBIC Routine 01/04/2018 3:10 Results for this & ANAEROBIC AM [facility] [employer] procedure are in the results section. LACTIC ACID LEVEL Routine 01/04/2018 3:05 Results for this AM [facility] [employer] procedure are in the results section. XR CHEST 2 VW STAT 01/04/2018 1:52 Results for this AM [facility] [employer] procedure are in the results section. RESPIRATORY PATHOGEN Routine 01/04/2018 12:55 Results for this PANEL AM [facility] [employer] procedure are in the results section. INFLUENZA ANTIGEN Routine 01/04/2018 12:55 Results for this AM [facility] [employer] procedure are in the results section. ZZESTIMATED GFR STAT 01/04/2018 12:50 Results for this AM [facility] [employer] procedure are in the results section. SALICYLATE LEVEL STAT 01/04/2018 12:50 Results for this AM [facility] [employer] procedure are in the results section. COMPREHENSIVE METABOLIC STAT 01/04/2018 12:50 Results for this PANEL AM [facility] procedure are in the results section. HC COMPLETE BLD COUNT STAT 01/04/2018 12:50 Results for this W/AUTO DIFF AM [facility] procedure are in the results section. BLOOD CULTURE, AEROBIC Routine 01/04/2018 12:50 Results for this & ANAEROBIC AM [facility] procedure are in the results section. HCG QUALITATIVE, URINE STAT 01/04/2018 12:48 Results for this SCREEN AM [facility] procedure are in the results section. URINALYSIS SCREEN AND STAT 01/04/2018 12:48 Results for this MICROSCOPY, WITH REFLEX AM [facility]IST[facility] procedure are in TO CULTURE the results section. GRAM STAIN STAT 01/04/2018 12:48 Results for this AM [facility] procedure are in the results section. URINE CULTURE STAT 01/04/2018 12:48 Results for this AM [facility] [employer] procedure are in the results section. ECG 12-LEAD Routine 01/04/2018 12:24 Results for this AM [facility] [employer] procedure are in the results section. after 11/06/2017 Results POC glucose (01/09/2018 12:14 PM ADMINISTRATIVE ASSISTANT [employer]K)Only the most recent of23 resultswithin the time period is included. POC glucose 163 (H) 65 - 99 mg/dL [facility] DEPARTMENT OF PATHOLOGY AND Comment: GENOMIC MEDICINE RN Notified Meter ID: [id number] Guide Tour: Rk Higgins Performing Organization Address City/State/Zipcode Phone Number [facility] DEPARTMENT OF PATHOLOGY [address] [id number] AND GENOMIC MEDICINE IR PICC Placement (01/08/2018 9:42 AM ADMINISTRATIVE ASSISTANT FRONT DESK) Narrative Performed At Procedure [facility] Placement of [...] fluoroscopy. The needle was removed and a 5.5-Rwandan peel-away sheath was then placed. Under ultrasound guidance, documentation of vessel patency, needle access with permanent recording, and reporting are performed followed by placement of a sheath in the rightbasilic vein. A 39 cm long 5-Rwandan dual-lumen Power PICC was then deployed over [...] placement of a 39 cm long 5 Rwandan dual-lumen Power PICC via the right basilic vein. The catheter tip lies at the right atrium/superior vena cava junction and is ready for use. [facility]-[id number] Procedure Note Hm Interface, Radiology Results Incoming - 01/08/2018 4:57 PM ADMINISTRATIVE ASSIST[facility] [employer] Procedure Placement of a right upper extremity [...] fluoroscopy. The needle was removed and a 5.5-Rwandan peel-away sheath was then placed. Under ultrasound guidance, documentation of vessel patency, needle access with permanent recording, and reporting are performed followed by placement of a sheath in the right basilic vein. A 39 cm long 5-Rwandan dual-lumen Power PICC was then deployed over [...] placement of a 39 cm long 5 Rwandan dual-lumen Power PICC via the right basilic vein. The catheter tip lies at the right atrium /superior vena cava junction and is ready for use. [id number] Performing Organization Address City/State/Zipcode Phone Number [facility] [address] [place] [address] [place] Guided Vascular Access (01/08/2018 9:42 AM ADMINISTRATIVE ASSISTANT FRONT DESK) Narrative Performed At [facility] [...] fluoroscopy. The needle was removed and a 5.5-Rwandan peel-away sheath was then placed. Under ultrasound guidance, documentation of vessel patency, needle access with permanent recording, and reporting are performed followed by placement of a sheath in the rightbasilic vein. A 39 cm long 5-Rwandan dual-lumen Power PICC was then deployed over [...] placement of a 39 cm long 5 Rwandan dual-lumen Power PICC via the right basilic vein. The catheter tip lies at the right atrium/superior vena cava junction and is ready for use. [facility]-[id number] Procedure Note Interface, Radiology Results Incoming - 01/08/2018 4:58 PM AD[facility]ISTRATIVE ASSIST[facility] [employer] Procedure Placement of a right upper extremity [...] fluoroscopy. The needle was removed and a 5.5-Rwandan peel-away sheath was then placed. Under ultrasound guidance, documentation of vessel patency, needle access with permanent recording, and reporting are performed followed by placement of a sheath in the right basilic vein. A 39 cm long 5-Rwandan dual-lumen Power PICC was then deployed over [...] placement of a 39 cm long 5 Rwandan dual-lumen Power PICC via the right basilic vein. The catheter tip lies at the right atrium /superior vena cava junction and is ready for use. [facility]-[id number] Performing Organization Address City/State/Zipcode Phone Number [facility] [address] [place] [address] Estimated GFR (01/08/2018 5:00 AM ADMINISTRATIVE ASSISTANT FRONT DESK)Only the most recent of7 resultswithin the time period is included. GFR Non Af Amer >90 mL/min/1.73 m2 [facility] DEPARTMENT OF PATHOLOGY AND GENOMIC MEDICINE GFR Af Amer >90 mL/min/1.73 m2 [facility] DEPARTMENT OF Comment: PATHOLOGY AND [...] specimen Performing Organization Address City/State/Zipcode Phone Number [facility] DEPARTMENT OF PATHOLOGY [id number] [place] [address]. [place] [address] AND [facility] Prothrombin time with INR (01/08/2018 5:00 AM ADMINISTRATIVE ASSISTANT FRONT [employer]K) Prothrombin time 14.5 12.0 - 15.0 sec [facility] DEPARTMENT OF PATHOLOGY AND GENOMIC MEDICINE INR 1.1 [facility] DEPARTMENT OF Comment: PATHOLOGY AND GENOMIC The International Normalized Ratio (INR) is a therapeutic MEDICINE monitoring tool for patients who are stable on oral anticoagulant therapy. An INR of 2.0-3.0 is suggested for deep vein thrombosis/pulmonary embolism. Specimen Blood Performing Organization Address City/[facility] Phone Number [facility] DEPARTMENT OF PATHOLOGY [address] [place] [phone] AND [facility] CBC with platelet and differential (01/08/2018 5:00 AM ADMINISTRATIVE ASSISTANT FRONT DESK)Only the most recent of6 resultswithin the time period is included. WBC 10.2 4.5 - 11.0 k/uL [facility] DEPARTMENT OF PATHOLOGY AND GENOMIC MEDICINE RBC 4.02 (L) 4.20 - 5.50 m/uL [facility] DEPARTMENT OF PATHOLOGY AND GENOMIC MEDICINE HGB 13.6 12.0 - 16.0 g/dL [facility] DEPARTMENT OF PATHOLOGY AND GENOMIC MEDICINE HCT 39.5 37.0 - 47.0 % [facility] DEPARTMENT OF PATHOLOGY AND GENOMIC MEDICINE MCV 98.3 82.0 - 100.0 fL [facility] DEPARTMENT OF PATHOLOGY AND GENOMIC MEDICINE MCH 33.8 27.0 - 34.0 pg [facility] DEPARTMENT OF PATHOLOGY AND GENOMIC MEDICINE MCHC 34.4 31.0 - 37.0 g/dL [facility] DEPARTMENT OF PATHOLOGY AND GENOMIC MEDICINE RDW - SD 43.5 37.0 - 55.0 fL [facility] DEPARTMENT OF PATHOLOGY AND GENOMIC MEDICINE MPV 10.3 6.9 - 11.0 fL [facility] DEPARTMENT OF PATHOLOGY AND GENOMIC MEDICINE Platelet count 288 150 - 400 K/uL [facility] DEPARTMENT OF PATHOLOGY AND GENOMIC MEDICINE Nucleated RBC 0.00 /100 WBC [facility] DEPARTMENT OF PATHOLOGY AND GENOMIC MEDICINE Neutrophils 53.6 39.0 - 69.0 % [facility] DEPARTMENT OF PATHOLOGY AND GENOMIC MEDICINE Lymphocytes 35.7 25.0 - 45.0 % [facility] DEPARTMENT OF PATHOLOGY AND GENOMIC MEDICINE Monocytes 7.5 0.0 - 10.0 % [facility] DEPARTMENT OF PATHOLOGY AND GENOMIC MEDICINE Eosinophils 2.1 0.0 - 5.0 % [facility] DEPARTMENT OF PATHOLOGY AND GENOMIC MEDICINE Basophils 0.5 0.0 - 1.0 % [facility] DEPARTMENT OF PATHOLOGY AND GENOMIC MEDICINE Immature granulocytes 0.6 0.0 - 1.0 % [facility] DEPARTMENT OF PATHOLOGY AND GENOMIC MEDICINE Specimen Blood Performing Organization Address City/[facility] Phone Number [facility] DEPARTMENT OF PATHOLOGY [address] [place] [address] AND [facility] Comprehensive metabolic panel (01/08/2018 5:00 AM ADMINISTRATIVE ASSISTANT FRONT DESK)Only the most recent of4 resultswithin the time period is included. Sodium 139 135 - 148 mEq/L [facility] DEPARTMENT OF PATHOLOGY AND GENOMIC MEDICINE Potassium 3.8 3.5 - 5.0 mEq/L [facility] DEPARTMENT OF PATHOLOGY AND GENOMIC MEDICINE Chloride 102 98 - 112 mEq/L [facility] DEPARTMENT OF PATHOLOGY AND GENOMIC MEDICINE CO2 23 (L) 24 - 31 mEq/L [facility] DEPARTMENT OF PATHOLOGY AND GENOMIC MEDICINE Anion gap 14 7 - 15 mEq/L [facility] DEPARTMENT OF Comment: PATHOLOGY AND GENOMIC Starting from February , anion gap calculation MEDICINE no longer incorporates potassium. Please note the change. BUN 12 6 - 20 mg/dL [facility] DEPARTMENT OF PATHOLOGY AND GENOMIC MEDICINE Creatinine 0.5 0.5 - 0.9 mg/dL [facility] DEPARTMENT OF PATHOLOGY AND GENOMIC MEDICINE Glucose 153 (H) 65 - 99 mg/dL [facility] DEPARTMENT OF PATHOLOGY AND GENOMIC MEDICINE Calcium 8.8 8.3 - 10.2 mg/dL [facility] DEPARTMENT OF PATHOLOGY AND GENOMIC MEDICINE Protein 7.2 6.3 - 8.3 g/dL [facility] DEPARTMENT OF PATHOLOGY AND GENOMIC MEDICINE Albumin 3.4 (L) 3.5 - 5.0 g/dL [facility] DEPARTMENT OF PATHOLOGY AND GENOMIC MEDICINE A/G ratio 0.9 0.7 - 3.8 [facility] DEPARTMENT OF PATHOLOGY AND GENOMIC MEDICINE Alkaline phosphatase 73 35 - 104 U/L [facility] DEPARTMENT OF PATHOLOGY AND GENOMIC MEDICINE AST 27 10 - 35 U/L [facility] DEPARTMENT OF PATHOLOGY AND GENOMIC MEDICINE ALT 35 5 - 50 U/L [facility] DEPARTMENT OF PATHOLOGY AND GENOMIC MEDICINE Total bilirubin 0.4 0.2 - 1.2 mg/dL [facility] DEPARTMENT OF PATHOLOGY AND GENOMIC MEDICINE Specimen Plasma specimen Performing Organization Address [facility] Phone Number [facility] DEPARTMENT OF PATHOLOGY [id number] [place] [address] AND [place] PREVENTIVE MEDICINE Basic metabolic panel (01/07/2018 5:45 AM ADMINISTRATIVE ASSISTANT FRONT [employer]K)Only the most recent of3 resultswithin the time period is included. Sodium 136 135 - 148 mEq/L [facility] DEPARTMENT OF PATHOLOGY AND GENOMIC [facility] Potassium 3.8 3.5 - 5.0 mEq/L [facility] DEPARTMENT OF PATHOLOGY AND [facility] Chloride 99 98 - 112 mEq/L [facility] DEPARTMENT OF PATHOLOGY AND GENOMIC MEDICINE CO2 23 (L) 24 - 31 mEq/L [facility] DEPARTMENT OF PATHOLOGY AND GENOMIC [facility] Anion gap 14 7 - 15 mEq/L [facility] DEPARTMENT OF Comment: PATHOLOGY AND GENOMIC Starting from February , anion gap calculation MEDICINE no longer incorporates potassium. Please note the change. BUN 8 6 - 20 mg/dL [facility] DEPARTMENT OF PATHOLOGY AND GENOMIC MEDICINE Creatinine 0.5 0.5 - 0.9 mg/dL [facility] DEPARTMENT OF PATHOLOGY AND GENOMIC [facility] Glucose 184 (H) 65 - 99 mg/dL [facility] DEPARTMENT OF PATHOLOGY AND [facility] Calcium 8.9 8.3 - 10.2 mg/dL [facility] DEPARTMENT OF PATHOLOGY AND [facility] Specimen Plasma specimen Performing Organization Address [facility] Phone Number [facility] DEPARTMENT OF PATHOLOGY [address] [place] [address]. [place] [address] AND [facility] Lactic acid level, SEPSIS - Now and repeat 2x every 3 hours (01/06/2018 10:00 PM ADMINISTRATIVE ASSISTANT FRONT [employer]K)Only the most recent of4 resultswithin the time period is included. Lactic acid 1.7 0.5 - 2.2 mmol/L [facility] DEPARTMENT OF PATHOLOGY AND [facility] Specimen Plasma specimen Performing Organization Address City/[facility]/Zipcode Phone Number [facility] DEPARTMENT OF PATHOLOGY [id number] [place] [address] AND [facility] Troponin (01/06/2018 12:15 AM ADMINISTRATIVE ASSISTANT FRONT DESK)Only the most recent of3 resultswithin the time period is included. Troponin <0.30 0.00 - 0.30 ng/mL [facility] DEPARTMENT OF PATHOLOGY Comment: AND GENOMIC MEDICINE 0.11 - 1.49 ng/mlMay indicate increased risk of acute coronary syndrome. >=1.5 ng/mlConsistent with acute myocardial infarction. The diagnostic value of a single normal or non-diagnostic result is questionable.Serial samples at 2-6 hour intervals are required to rule out acute myocardial injury. Specimen Plasma specimen Performing Organization Address [facility] Phone Number [facility] DEPARTMENT OF PATHOLOGY [address] [place] [address]. [place] [address] AND [facility] Lactic acid level (01/05/2018 8:30 PM ADMINISTRATIVE ASSISTANT FRONT DESK)Only the most recent of4 resultswithin the time period is included. Lactic acid 2.7 (H) 0.5 - 2.2 mmol/L [facility] DEPARTMENT OF PATHOLOGY AND [facility] Specimen Plasma specimen Performing Organization Address [facility] Phone Number [facility] DEPARTMENT OF PATHOLOGY [address] [place] [address]. [place] [address] AND [facility] Thyroid stimulating hormone (01/05/2018 5:02 PM ADMINISTRATIVE ASSISTANT FRONT DESK) TSH 0.90 0.27 - 4.20 uIU/mL [facility] DEPARTMENT OF PATHOLOGY AND [facility] Specimen Plasma specimen Performing Organization Address [facility] Phone Number [facility] DEPARTMENT OF PATHOLOGY [address] [place] [address]. [place] [address] AND [facility] Magnesium level (01/05/2018 5:02 PM ADMINISTRATIVE ASSISTANT FRONT DESK)Only the most recent of2 resultswithin the time period is included. Magnesium 1.6 1.6 - 2.6 mg/dL [facility] DEPARTMENT OF PATHOLOGY AND [facility] Specimen Plasma specimen Performing Organization Address [facility] Phone Number [facility] DEPARTMENT OF PATHOLOGY [address] [place] [address]. [place] [address] AND [facility] ECG 12 lead (01/05/2018 4:47 PM ADMINISTRATIVE ASSISTANT FRONT DESK)Only the most recent of2 resultswithin the time period is included. Ventricular rate 145 [facility] Atrial rate 145 [facility] W[place] interval 152 [facility] QRSD interval 60 [facility] QT interval 250 [facility] QTC interval 388 [facility] P axis 1 27 [facility] QRS axis 1 -11 [facility] T wave axis 6 [facility] EKG impression Sinus tachycardia-Septal infarct (cited on or before 2017)-Possible Lateral infarct (cited on or before 05-JAN-2018)-Abnormal ECG-In automated comparison with ECG of 04-JAN-2018 00:24,-[place] interva [facility]USE l has increased-QRS axis shifted right-Questionable change in initial forces of Septal leads-Inverted T waves have replaced nonspecific T wave abnormality in Inferior leads-Nonspecific T wave abnormality now evident in Lateral leads- Performing Organization Address City/State/Zipcode Phone Number [facility] [address] [place] [address] CT Renal Stone Protocol (01/05/2018 3:30 PM ADMINISTRATIVE ASSISTANT FRONT DESK) Narrative Performed At EXAMINATION:CT RENAL STONE PROTOCOL [...] Dedicated chest imaging could provide further assessment. [facility]-[id number] Procedure Note Interface, Radiology Results Incoming - 01/05/2018 3:52 PM ADMINISTRATIVE ASSISTANT FRONT DESK EXAMINATION: CT RENAL STONE PROTOCOL CLINICAL HISTORY: [...] Dedicated chest imaging could provide further assessment. [facility]-[id number] Performing Organization Address City/[facility]/Zipcode Phone Number [facility] [address] [place] [address] Phosphorus level (01/04/2018 10:30 AM ADMINISTRATIVE ASSISTANT FRONT DESK) Phosphorus 3.5 2.4 - 4.5 mg/dL [facility] DEPARTMENT OF PATHOLOGY AND [facility] Specimen Plasma specimen Performing Organization Address City/[facility]/Zipcode Phone Number [facility] DEPARTMENT OF PATHOLOGY [address] [place] [address] AND [facility] Hemoglobin A1c (01/04/2018 10:30 AM ADMINISTRATIVE ASSISTANT FRONT DESK) Hemoglobin A1C 9.3 (H) 4.0 - 6.0 % [facility] DEPARTMENT OF PATHOLOGY Comment: AND [facility] Less than 6% - Goal of therapy for Type II Diabetes Less than 7%-Goal of therapy for Type I Diabetes Less than 8%-Acceptable control for Type I or Type II Diabetes Greater than 8%-Unacceptable control; action indicated. ([id number]) Specimen Blood Performing Organization Address City/[facility]/Zipcode Phone Number [facility] DEPARTMENT OF PATHOLOGY [address] [place] [address] AND GENOMIC MEDICINE ECG ED Preliminary Interpretation - NOT AN ORDER (01/04/2018 3:46 AM ADMINISTRATIVE ASSISTANT FRONT DESK)Only the most recent of2 resultswithin the time [...] culture, aerobic & anaerobic (01/04/2018 3:10 AM ADMINISTRATIVE ASSISTANT FRONT DESK)Only the most recent of2 resultswithin the time period is included. Blood culture isolate No growth after 5 days of incubation. [facility] DEPARTMENT OF Comment: PATHOLOGY AND GENOMIC Specimen Information MEDICINE Specimen Source: Blood Specimen Site: Antecubital, right Specimen Blood - Antecubital, right Performing Organization Address [facility] Phone Number [facility] DEPARTMENT OF PATHOLOGY AND [address] [place] [address] GENOMIC MEDICINE XR Chest 2 Vw (01/04/2018 1:52 AM ADMINISTRATIVE ASSISTANT FRONT DESK) Narrative Performed At EXAMINATION: XR CHEST 2 VW RADIANT CLINICAL HISTORY: Fever COMPARISON:None. IMPRESSION: Mildly decreased lung volumes. No focal or confluent airspace consolidation. No pleural effusion or pneumothorax. The cardiomediastinal silhouette is normal. No acute osseous abnormalities. [facility]-[id number] Procedure Note Interface, Radiology Results Incoming - 01/04/2018 2:04 AM ADMINISTRATIVE ASSISTANT FRONT DESK EXAMINATION: XR CHEST 2 VW CLINICAL HISTORY: Fever COMPARISON: None. IMPRESSION: Mildly decreased lung volumes. No focal or confluent airspace consolidation. No pleural effusion or pneumothorax. The cardiomediastinal silhouette is normal. No acute osseous abnormalities. [facility]-[id number] Performing Organization Address [facility] Phone Number [facility] [address] [place] [address] Respiratory pathogen panel (01/04/2018 12:55 AM ADMINISTRATIVE ASSISTANT FRONT DESK) Respiratory pathogen Negative for all pathogens tested: [facility] DEPARTMENT OF panel Negative for [...] Left Performing Organization Address City/State/Zipcode Phone Number [facility] DEPARTMENT OF PATHOLOGY AND [address] [place] [id number] [place] [address] Influenza antigen (01/04/2018 12:55 AM ADMINISTRATIVE ASSISTANT FRONT DESK) Influenza antigen Negative for Influenza A/B antigen. [facility] DEPARTMENT OF PATHOLOGY Comment: AND GENOMIC MEDICINE Specimen Information Specimen Source: Nares Specimen Site: Left Specimen Nares - Left Performing Organization Address City/State/Zipcode Phone Number [facility] DEPARTMENT OF PATHOLOGY [id number] [place] [address] AND [facility] Salicylate level (01/04/2018 12:50 AM ADMINISTRATIVE ASSISTANT FRONT DESK) Salicylate <0.4 (L) 3.0 - 30.0 mg/dL [facility] DEPARTMENT OF PATHOLOGY AND GENOMIC MEDICINE Specimen Plasma specimen Performing Organization Address City/[facility]/Zipcode Phone Number [facility] DEPARTMENT OF PATHOLOGY [address] [place] [address] AND [facility] Urinalysis screen and microscopy, with reflex to culture (01/04/2018 12:48 AM ADMINISTRATIVE ASSISTANT FRONT DESK) Specimen site Clean catch [facility] DEPARTMENT OF PATHOLOGY AND GENOMIC MEDICINE Color, UA Yellow [facility] DEPARTMENT OF PATHOLOGY AND GENOMIC MEDICINE Appearance, UA Cloudy [facility] DEPARTMENT OF PATHOLOGY AND GENOMIC MEDICINE Specific gravity, UA 1.021 1.001 - 1.030 [facility] DEPARTMENT OF PATHOLOGY AND GENOMIC MEDICINE pH, UA 5.0 5.0 - 9.0 [facility] DEPARTMENT OF PATHOLOGY AND GENOMIC MEDICINE Protein, UA 1+ (A) Negative [facility] DEPARTMENT OF PATHOLOGY AND GENOMIC MEDICINE Glucose, UA 3+ (A) Negative [facility] DEPARTMENT OF PATHOLOGY AND GENOMIC MEDICINE Ketones, UA Negative Negative [facility] DEPARTMENT OF PATHOLOGY AND GENOMIC MEDICINE Bilirubin, UA Negative Negative [facility] DEPARTMENT OF PATHOLOGY AND GENOMIC MEDICINE Blood, UA Moderate (A) Negative [facility] DEPARTMENT OF PATHOLOGY AND GENOMIC MEDICINE Nitrite, UA Positive (A) Negative [facility] DEPARTMENT OF PATHOLOGY AND GENOMIC MEDICINE Urobilinogen, UA <2.0 <2.0 E.U./dL [facility] DEPARTMENT OF PATHOLOGY AND GENOMIC MEDICINE Leukocyte esterase, UA Large (A) Negative [facility] DEPARTMENT OF PATHOLOGY AND GENOMIC MEDICINE Epithelial cells, UA 1 /HPF [facility] DEPARTMENT OF PATHOLOGY AND GENOMIC MEDICINE WBC, UA >200 (H) 0 - 4 /HPF [facility] DEPARTMENT OF PATHOLOGY AND GENOMIC MEDICINE RBC, UA 5 (H) 0 - 2 /HPF [facility] DEPARTMENT OF PATHOLOGY AND GENOMIC MEDICINE Bacteria, UA Many (A) None seen [facility] DEPARTMENT OF PATHOLOGY AND GENOMIC MEDICINE WBC clumps, UA Few (A) [facility] DEPARTMENT OF PATHOLOGY AND GENOMIC MEDICINE Yeast, UA None seen [facility] DEPARTMENT OF PATHOLOGY AND GENOMIC MEDICINE Yeast with pseudohyphae, UA None seen [facility] DEPARTMENT OF PATHOLOGY AND GENOMIC MEDICINE Specimen Urine Performing Organization Address City/[facility] Phone Number [facility] DEPARTMENT OF PATHOLOGY [address] [place] [address] AND [facility] hCG qualitative, urine screen (01/04/2018 12:48 AM ADMINISTRATIVE ASSISTANT FRONT DESK) hCG qualitative, urine NegativeComment: [facility] DEPARTMENT OF Sensitivity of HCG test: 25 PATHOLOGY AND GENOMIC mIU/ml MEDICINE Specimen Urine Performing Organization Address City/[facility]/Zipcode Phone Number [facility] DEPARTMENT OF PATHOLOGY [address] [place] [address] AND [facility] MEDICINE Gram stain (01/04/2018 12:48 AM ADMINISTRATIVE ASSISTANT FRONT DESK) Gram stain result Occasional WBC's [facility] DEPARTMENT OF PATHOLOGY Moderate Gram negative rods AND GENOMIC MEDICINE Occasional Gram positive rods Comment: Specimen Information Specimen Source: Urine Specimen Site: Clean catch Specimen Urine Performing Organization Address City/[facility] Phone Number [facility] DEPARTMENT OF PATHOLOGY AND [address] [place] [address] [facility] Urine culture (01/04/2018 12:48 AM ADMINISTRATIVE ASSISTANT FRONT DESK) Urine culture isolate Escherichia coli [facility] DEPARTMENT OF >10-5 cfu/ml PATHOLOGY AND GENOMIC This isolate is a conference producer of ESBL (extended spectrum beta MEDICINE lactamase).This organism may be clinically resistant to penicillins, cephalosporins or aztreonam despite apparent in vitro susceptibility to some of these agents. (A) Comment: Specimen Information Specimen Source: Urine Specimen Site: Clean catch Urine culture isolate Mixed Gram positive joe [facility] DEPARTMENT OF 10-3 cfu/ml PATHOLOGY AND [facility] (A) MEDICINE Specimen Urine Organism Antibiotic Method [...] Susceptible Performing Organization Address City/State/Zipcode Phone Number [facility] DEPARTMENT OF PATHOLOGY AND [address] [place] [address] [facility] after 11/06/2017 Insurance Payer Benefit Plan / Group Subscriber ID Type Phone Address [employer] MEDICARE AETNA MEDICARE HMO/PPO MCR xxxxxxxx O [facility] xxxxxxxxx O Advance Directives Patient has advance care planning documents on file. For more information, please contact:Sergio Ferreira[address] [place] [address]
--- OUTSIDE RECORDS SUMMARY | 2018-11-07 23:05 | XMS REPORT ---
:1985 Author Organization [facility] Address [address] [place] [address] Dr. Cortés [address] [place] [address] Care Team Providers Name Role Phone Unavailable Unavailable Unavailable Problems This patient has no known problems. Allergies, Adverse Reactions, Alerts This patient has no known allergies or adverse reactions. Medications This patient has no known medications.
[2018-11-08] LABS: Absolute Lymphocytes (CBC) 3.6 K/uL (0.7-4.9); Absolute Monocytes 0.7 K/uL (0.1-1.3); Absolute Neutrophil 9.5 K/uL (1.8-8.0); Basophils % 0.4 % (0-1.3); Eosinophils % 0.4 % (0-4.4); Hematocrit 39.2 % (36.0-45.0); Lymphocytes % 25.7 % (15.3-44.8); MCH 32.3 pg (27.0-35.0); MCV 94.1 fL (80-100); MPV 8.8 fL (7.6-11.3); Monocytes % 5.2 % (3.3-12.3); RBC Red Blood Cell Count 4.16 M/uL (3.86-4.86)
[2018-11-08 00:24] LABS: ALT/SGPT 29 U/L (12-78); AST/SGOT 14 U/L (15-37); Albumin 3.9 g/dL (3.4-5.0); Alkaline Phosphatase 69 U/L (45-117); BUN Blood Urea Nitrogen 9 mg/dL (7-18); Bicarbonate 27 mmol/L (21-32); Bilirubin Direct 0.1 mg/dL (0-0.2); Bilirubin Total 0.4 mg/dL (0.2-1.0); Glucose Level 141 mg/dL (74-106); Lipase 139 U/L (73-393); Potassium 3.5 mmol/L (3.5-5.1); Protein, Total 8.3 g/dL (6.4-8.2); Sodium Level 138 mmol/L (136-145)
[2018-11-08 00:43] LABS: Urine Bacteria <20 /HPF (<20); Urine Culture Reflex Order NOT NEEDED; Urine RBC <5 /HPF (NONE SEEN)
--- NOTE | 2018-11-08 01:34 | ER ---
Nurse's Notes [facility] Name: Mckenna Haney Age: 33 yrs Sex: Female : 1985 Arrival Date: 11/07/2018 Time: 23:03 Bed 17 Private MD: Diagnosis: Viral syndrome Presentation: 11/07 23:06 Presenting complaint: Patient states: chills, fever since tonight. Transition of care: cc3 patient was not received from another setting of care. Onset of symptoms was November 07, 2018. Risk Assessment: Do you want to hurt yourself or someone else? Patient reports no desire to harm self or others. Initial Sepsis Screen: Does the patient meet any 2 criteria? No. Patient's initial sepsis screen is negative. Does the patient have a suspected source of infection? No. Patient's initial sepsis screen is negative. Care prior to arrival: None. 23:06 Method Of Arrival: Ambulatory cc3 23:06 Acuity: LILO 3 cc3 Triage Assessment: 23:06 General: Appears in no apparent distress. comfortable, Behavior is calm, cooperative, cc3 appropriate for age. Pain: Complains of pain in generalized body pain. 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 Historical: - Allergies: 23:06 Ibuprofen (Hives); cc3 - Home Meds: 23:06 atorvastatin 10 mg Oral tab 1 tab once daily [Active]; glipizide 10 mg Oral tab 1 tab cc3 once daily [Active]; Januvia 100 mg Oral tab 1 tab once daily [Active]; lisinopril 2.5 mg Oral tab 1 tab once daily [Active]; metformin 1,000 mg Oral tab 1 tab 2 times per day [Active]; metronidazole 500 mg Oral tab 2 times per day [Active]; montelukast 10 mg Oral tab 1 tab once daily [Active]; - PMHx: 23:06 Diabetes - NIDDM; High Cholesterol; Hypertension; cc3 - PSHx: 23:06 Cholecystectomy; cc3 - Immunization history:: Adult Immunizations not up to date. - Social history:: Smoking status: Patient/guardian denies using tobacco, never smoked. - Ebola Screening: : No symptoms or risks identified at this time. Screenin:06 Abuse screen: Denies threats or abuse. Denies injuries from another. Nutritional cc3 screening: No deficits noted. Tuberculosis screening: No symptoms or risk factors identified. Fall Risk Ambulatory Aid- None/Bed Rest/Nurse Assist (0 pts). Gait- Normal/Bed Rest/Wheelchair (0 pts) Mental Status- Oriented to own ability (0 pts). Assessment: 23:06 General: see triage assessment. cc3 11/08 00:20 Reassessment: Patient appears in no apparent distress at this time. Patient and/or cc3 family updated on plan of care and expected duration. Pain level reassessed. Patient is alert, oriented x 3, equal unlabored respirations, skin warm/dry/pink. 01:40 Reassessment: Patient appears in no apparent distress at this time. Patient and/or cc3 family updated on plan of care and expected duration. Pain level reassessed. Patient is alert, oriented x 3, equal unlabored respirations, skin warm/dry/pink. Dr. Roldan discharged the patient home, no prescription given. IV cannula removed and patient left ER vitally stable and ambulatory. Vital Signs: 11/07 23:06 BP 149 / 79; Pulse 92; Resp 16 S; Temp 100.5(O); Pulse Ox 99% on R/A; Weight 96.62 kg cc3 (R); Height 5 ft. 4 in. (162.56 cm) (R); 12 00:49 BP 117 / 75; Pulse 74; Resp 20 S; Pulse Ox 100% on R/A; cc3 01:20 BP 114 / 84; Pulse 77; Resp 17 S; Temp 98.1(O); Pulse Ox 100% on R/A; cc3 11/07 23:06 Body Mass Index 36.56 (96.62 kg, 162.56 cm) 3 ED Course: 11/07 23:03 Patient arrived in ED. am2 23:06 Arm band placed on right wrist. cc3 23:06 Patient has correct armband on for positive identification. Bed in low position. Call 3 light in reach. Side rails up X 1. Pulse ox on. NIBP on. 23:12 Korey Roldan MD is Attending Physician. tw4 23:26 Lisy Nixon is Primary Nurse. cc3 23:41 Triage completed. cc3 23:45 First set of blood cultures drawn. mt 23:50 Inserted saline lock: 20 gauge in right antecubital area, using aseptic technique. mt Blood collected. 11/08 01:40 No provider procedures requiring assistance completed. IV discontinued, intact, cc3 bleeding controlled, No redness/swelling at site. Pressure dressing applied. Administered Medications: No medications were administered Outcome: 01:34 Discharge ordered by . tw4 01:40 Discharged to home ambulatory. cc3 01:40 Condition: stable 01:40 Discharge instructions given to patient, Instructed on discharge instructions, follow up and referral plans. Demonstrated understanding of instructions, follow-up care. 01:45 Patient left the ED. cc3 Signatures: Kathryn Flynn Moriah mt Wadley, Terrence, MD MD tw4 Lisy Nixon cc3 Corrections: (The following items were deleted from the chart) 11/07 23:40 23:06 LMP 10/03/2018 cc3 cc3
--- NOTE | 2018-11-08 01:34 | EDPHYS ---
Physician Documentation [facility] Name: Mckenna Haney Age: 33 yrs Sex: Female : 1985 Arrival Date: 11/07/2018 Time: 23:03 Bed 17 Private MD: ED Physician Korey Roldan HPI: 11/08 01:22 This 33 yrs old Female presents to ER via Ambulatory with complaints of tw4 Doesn't Feel Right, chills. 01:22 The patient reports fever, not measured (subjective). Onset: The symptoms/episode tw4 began/occurred today. Modifying factors: there are no obvious modifying factors. Associated signs and symptoms: Pertinent positives: chills, Pertinent negatives: abdominal pain, altered mental status, backache, chest pain, diarrhea, pulling at ears, headache, hemoptysis, myalgias. Severity of symptoms: At their worst the symptoms were moderate in the emergency department the symptoms are unchanged. The patient has not experienced similar symptoms in the past. 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 Historical: - Allergies: 23:06 Ibuprofen (Hives); cc3 - Home Meds: 23:06 atorvastatin 10 mg Oral tab 1 tab once daily [Active]; glipizide 10 mg Oral tab 1 tab cc3 once daily [Active]; Januvia 100 mg Oral tab 1 tab once daily [Active]; lisinopril 2.5 mg Oral tab 1 tab once daily [Active]; metformin 1,000 mg Oral tab 1 tab 2 times per day [Active]; metronidazole 500 mg Oral tab 2 times per day [Active]; montelukast 10 mg Oral tab 1 tab once daily [Active]; - PMHx: 23:06 Diabetes - NIDDM; High Cholesterol; Hypertension; cc3 - PSHx: 23:06 Cholecystectomy; cc3 - Immunization history:: Adult Immunizations not up to date. - Social history:: Smoking status: Patient/guardian denies using tobacco, never smoked. - Ebola Screening: : No symptoms or risks identified at this time. ROS: 11/08 01:22 Eyes: Negative for injury, pain, redness, and discharge, Cardiovascular: Negative for tw4 chest pain, palpitations, and edema, Respiratory: Negative for shortness of breath, cough, wheezing, and pleuritic chest pain, Abdomen/GI: Negative for abdominal pain, nausea, vomiting, diarrhea, and constipation. Back: Negative for injury and pain, MS/Extremity: Negative for injury and deformity, Skin: Negative for injury, rash, and discoloration, Neuro: Negative for headache, weakness, numbness, tingling, and seizure. Constitutional: Positive for chills, fever, Negative for body aches, malaise, poor PO intake, weight loss. Exam: 01:23 Constitutional: This is a well developed, well nourished patient who is awake, alert, tw4 and in no acute distress. Head/Face: Normocephalic, atraumatic. Chest/axilla: Normal chest wall appearance and motion. Nontender with no deformity. No lesions are appreciated. Cardiovascular: Regular rate and rhythm with a normal S1 and S2. No gallops, murmurs, or rubs. Normal PMI, no JVD. No pulse deficits. Respiratory: Lungs have equal breath sounds bilaterally, clear to auscultation and percussion. No rales, rhonchi or wheezes noted. No increased work of breathing, no retractions or nasal flaring. Abdomen/GI: Soft, non-tender, with normal bowel sounds. No distension or tympany. No guarding or rebound. No evidence of tenderness throughout. Back: No spinal tenderness. No costovertebral tenderness. Full range of motion. MS/ Extremity: Pulses equal, no cyanosis. Neurovascular intact. Full, normal range of motion. Neuro: Awake and alert, GCS 15, oriented to person, place, time, and situation. Cranial nerves II-XII grossly intact. Motor strength 5/5 in all extremities. Sensory grossly intact. Cerebellar exam normal. Normal gait. Vital Signs: 11/07 23:06 BP 149 / 79; Pulse 92; Resp 16 S; Temp 100.5(O); Pulse Ox 99% on R/A; Weight 96.62 kg cc3 (R); Height 5 ft. 4 in. (162.56 cm) (R); 11/08 00:49 BP 117 / 75; Pulse 74; Resp 20 S; Pulse Ox 100% on R/A; cc3 01:20 BP 114 / 84; Pulse 77; Resp 17 S; Temp 98.1(O); Pulse Ox 100% on R/A; cc3 11/07 23:06 Body Mass Index 36.56 (96.62 kg, 162.56 cm) cc3 MDM: 11/07 23:39 Patient medically screened. [facility] 11/08 01:23 Differential diagnosis: viral Infection, bacterial infection, URI. Data reviewed: vital tw4 signs, nurses notes. Data interpreted: secured entrance monitor: rhythm is normal sinus rhythm, Pulse oximetry: Interpretation: normal. Counseling: I had a detailed discussion with the patient and/or guardian regarding: the historical points, exam findings, and any diagnostic results supporting the discharge/admit diagnosis. Special discussion: I discussed with the patient/guardian in detail that at this point there is no indication for admission to the hospital. It is understood, however, that if the symptoms persist or worsen the patient needs to return immediately for re-evaluation. 11/07 23:56 Order name: Basic Metabolic Panel; Complete Time: 00:41 EDNY 11/08 00:41 Interpretation: Normal except: GLUC 141. [facility] 11/07 23:56 Order name: Liver (Hepatic) Function; Complete Time: 00:41 EDNY 11/08 00:41 Interpretation: Normal except: AST 14; TP 8.3; GLOB 4.4; A/G 0.9. [facility] 11/07 23:56 Order name: Lipase; Complete Time: 00:41 EDNY 11/08 00:42 Interpretation: LIP 139. [facility] 11/07 23:56 Order name: CBC with Automated Diff; Complete Time: 00:41 EDNY 11/08 00:41 Interpretation: Normal except: NEUT A 9.5; WBC 13.9. [facility] 11/07 23:56 Order name: Blood Culture [facility] 11/07 23:14 Order name: IV Saline Lock; Complete Time: 23:51 [facility] 11/07 23:14 Order name: Labs collected and sent; Complete Time: 23:51 [facility] 11/07 23:14 Order name: Urine Dipstick-Ancillary (obtain specimen); Complete Time: 23:50 tw 11/07 23:56 Order name: Blood Culture [facility] 11/08 00:19 Order name: Influenza Screen (A ; Complete Time: 01:32 EDNY 11/08 01:32 Interpretation: Within normal limits. tw4 11/08 00:19 Order name: Group A Streptococcus Rapid Sc; Complete Time: 01:32 EDMS 11/08 00:28 Order name: Urine Microscopic Only EDMS 11/08 00:32 Order name: Urine Dipstick--Ancillary (enter results) 11/08 00:32 Order name: Urine --Ancillary (enter results) 11/08 00:41 Order name: Throat Culture EDMS Administered Medications: No medications were administered Disposition: 11/08/18 01:34 Discharged to Home. Impression: Viral syndrome. - Condition is Stable. - Discharge Instructions: Viral Respiratory Infection, Fever, Adult, [id number]. - Medication Reconciliation Form, Thank You Letter, Antibiotic Education, Prescription Opioid Use form. - Follow up: Private Physician; When: Upon discharge from the Emergency Department; Reason: If symptoms return, Recheck today's complaints, Continuance of care. - Problem is new. - Symptoms have improved. Signatures: Dispatcher [employer] Korey Carnes MD MD tw4 Lisy Nixon cc3 Corrections: (The following items were deleted from the chart) 01:45 01:34 11/08/2018 01:34 Discharged to Home. Impression: Viral syndrome. Condition is cc3 Stable. Forms are Medication Reconciliation Form, Thank You Letter, Antibiotic Education, Prescription Opioid Use. Follow up: Private Physician; When: Upon discharge from the Emergency Department; Reason: If symptoms return, Recheck today's complaints, Continuance of care. Problem is new. Symptoms have improved. tw4
[2018-11-08 02:34] LABS: Urine Blood NEGATIVE (NEG); Urine Glucose TRACE (NEG); Urine Protein NEGATIVE (NEG); Urine pH 6.5 (5.0-7.0)
== END 2018-11-08 01:45 | disposition home or self-care (01) ==
LOC: ER 23:02
DX: B34.9 Viral infection, unspecified (principal); I10 Essential (primary) hypertension; E11.9 Type 2 diabetes mellitus without complications; E78.00 Pure hypercholesterolemia, unspecified; Z88.6 Allergy status to analgesic agent
CPT/HCPCS: 36415; 80048; 80076; 81003; 81015; 81025; 83690; 85025; 87040; 87070; 87081; 87804; 99283

== ENCOUNTER 2019-04-10 09:47 | Emergency (ER) | payer MEDICARE, OTHER ==
--- OUTSIDE RECORDS SUMMARY | 2019-04-10 10:06 | XMS REPORT | Clinical Summary ---
:1985 Author Organization [facility] Address [address] [place] [address] Care Team Providers Name Role Phone Cm Troy MD Primary Care Provider Allergies Active Allergy Reactions Severity Noted Date Comments Ibuprofen Rash Low 01/04/2018 Medications Medication Sig Dispensed Refills Start Date End Date Status alcohol swabs Test daily 1 each 0 01/09/2018 Active pads, medicated before all meals/snacks and once before bedtime. ACCU-CHEK COMPACT Test daily 200 strip 0 01/09/2018 Active TEST strip before all meals/snacks and once before bedtime. blood-glucose Test daily 1 kit 0 01/09/2018 Active meter, drum-type before all (ACCU-CHEK meals/snacks COMPACT PLUS and once before CARE) kit bedtime. lancing device Test daily 200 each 0 01/09/2018 Active with lancets before all (ACCU-CHEK meals/snacks MULTICLIX LANCET) and once before kit bedtime. lancets Test daily 200 each 0 01/09/2018 Active (ACCU-CHEK before all MULTICLIX LANCET) meals/snacks misc and once before bedtime. insulin syringes, Use as directed 100 each 0 01/09/2018 Active disposable, 1 mL syringe cephalexin Take 500 mg by 0 Active (KEFLEX) 500 MG mouth 2 (two) capsule times a day. Take 1 tablet 0 Active vit,[id number] by mouth daily. olic 29 mg iron- 1 mg tablet per tablet lisinopril Take 2.5 mg by 0 11/10/2018 Discontinued (PRINIVIL,ZESTRIL mouth daily. ) 2.5 mg tablet metFORMIN Take 1,000 mg 0 11/10/2018 Discontinued (GLUCOPHAGE) by mouth 2 1,000 mg tablet (two) times a day with meals. Active Problems Problem Noted Date Acute cystitis with hematuria 01/04/2018 Comments Yes Encounters Date Type Specialty Care Team Description 11/10/2018 Emergency Emergency Medicine Sarthak Mehta Vaginal bleeding in Alexx Mai MD , first trimester (Primary Dx) after 04/09/2018 Immunizations Name Dates Previously Given Next Due FLUCELVAX QUAD PF (0.5mL syringe) 01/09/2018 Social History Tobacco Use Types Packs/Day Years Used Date Never Smoker Smokeless Tobacco: Never Used Alcohol Use Drinks/Week oz/Week Comments No Comments Yes Sex Assigned at Date Recorded Not on file Job Start Date Occupation Industry Not on file Not on file Not on file Travel History Travel Start Travel End No recent travel history available. Last Filed Vital Signs Vital Sign Reading Time Taken Blood Pressure 139/84 11/10/2018 3:44 PM [employer] Pulse 95 11/10/2018 3:44 PM [employer] Temperature 36.7 C (98 F) 11/10/2018 3:44 PM [employer] Respiratory Rate 20 11/10/2018 3:44 PM [employer] Oxygen Saturation 100% 11/10/2018 3:44 PM [employer] Inhaled Oxygen Concentration - - Weight - - Height 162.6 cm (5' 4") 11/10/2018 3:41 PM [employer] Body Mass Index - - Plan of Treatment Health Maintenance Due Date Last Done Comments CERVICAL CANCER SCREENING 2008 INFLUENZA VACCINE 06/27/2019 01/09/2018 Procedures Procedure Name Priority Date/Time Associated Comments Diagnosis US STAT 11/10/2018 7:27 Results for this TRANSVAGINAL PM [employer] procedure are in the results section. US SINGLE STAT 11/10/2018 7:20 Results for this LESS THAN 14 WEEKS PM [employer] procedure are in the results section. ESTIMATED GFR STAT 11/10/2018 5:20 Results for this PM [employer] procedure are in the results section. RH TYPE STAT 11/10/2018 5:20 Results for this PM [employer] procedure are in the results section. HCG QUANTITATIVE, STAT 11/10/2018 5:20 Results for this SERUM PM [employer] procedure are in the results section. URINALYSIS SCREEN AND STAT 11/10/2018 5:20 Results for this MICROSCOPY, WITH PM [employer] procedure are in REFLEX TO CULTURE the results section. COMPREHENSIVE STAT 11/10/2018 5:20 Results for this METABOLIC PANEL PM [employer] procedure are in the results section. HC COMPLETE BLD COUNT STAT 11/10/2018 5:20 Results for this W/AUTO DIFF PM [employer] procedure are in the results section. URINE CULTURE STAT 11/10/2018 5:15 Results for this PM [employer] procedure are in the results section. after 04/09/2018 Results US Transvaginal (11/10/2018 7:27 PM [employer]) Narrative Performed At EXAM: US TRANSVAGINAL, US SINGLE LESS THAN 14 WEEKS [facility] IND[facility]S:vaginal spotting TECHNIQUE: Pelvic ultrasound performed.Transabdominal and transvaginal images are obtained. COMPARISON: None available IMPRESSION: No intrauterine or extrauterine gestation is identified. This represents a of uncertain location. Correlate with hCG trend and repeat pelvic ultrasound as clinically indicated. The uterus is normal, measuring 8.6 x 4 x 4.9 cm. The endometrial stripe measures 3 mm, normal and homogenous in echogenicity. Right and left ovaries are within normal limits. The right ovary measures 2.6 x 1.8 x 1.5 cm and left ovary measures 3.5 x 3.3 x 1.6 cm. No adnexal mass. No free fluid seen in the pelvis. [facility]-[id number] Procedure Note [facility], Radiology Results Incoming - 11/10/2018 8:06 PM [employer] EXAM: US TRANSVAGINAL, US SINGLE LESS THAN 14 WEEKS CLINICAL INDICATIONS: vaginal spotting TECHNIQUE: Pelvic ultrasound performed. Transabdominal and transvaginal images are obtained. COMPARISON: None available IMPRESSION: No intrauterine or extrauterine gestation is identified. This represents a of uncertain location. Correlate with hCG trend and repeat pelvic ultrasound as clinically indicated. The uterus is normal, measuring 8.6 x 4 x 4.9 cm. The endometrial stripe measures 3 mm, normal and homogenous in echogenicity. Right and left ovaries are within normal limits. The right ovary measures 2.6 x 1.8 x 1.5 cm and left ovary measures 3.5 x 3.3 x 1.6 cm. No adnexal mass. No free fluid seen in the pelvis. [facility]-[id number] Performing Organization Address City/State/Zipcode Phone Number [facility] [address] [place] [address] US Single Less Than 14 Weeks (11/10/2018 7:20 PM [employer]) Narrative Performed At EXAM: US TRANSVAGINAL, US SINGLE LESS THAN 14 WEEKS [facility] CL[facility]ICAL INDICATIONS:vaginal spotting TECHNIQUE: Pelvic ultrasound performed.Transabdominal and transvaginal images are obtained. COMPARISON: None available IMPRESSION: No intrauterine or extrauterine gestation is identified. This represents a of uncertain location. Correlate with hCG trend and repeat pelvic ultrasound as clinically indicated. The uterus is normal, measuring 8.6 x 4 x 4.9 cm. The endometrial stripe measures 3 mm, normal and homogenous in echogenicity. Right and left ovaries are within normal limits. The right ovary measures 2.6 x 1.8 x 1.5 cm and left ovary measures 3.5 x 3.3 x 1.6 cm. No adnexal mass. No free fluid seen in the pelvis. [facility]-[id number] Procedure Note Interface, Radiology Results Incoming - 11/10/2018 8:06 PM [employer] EXAM: US TRANSVAGINAL, US SINGLE LESS THAN 14 WEEKS CLINICAL INDICATIONS: vaginal spotting TECHNIQUE: Pelvic ultrasound performed. Transabdominal and transvaginal images are obtained. COMPARISON: None available IMPRESSION: No intrauterine or extrauterine gestation is identified. This represents a of uncertain location. Correlate with hCG trend and repeat pelvic ultrasound as clinically indicated. The uterus is normal, measuring 8.6 x 4 x 4.9 cm. The endometrial stripe measures 3 mm, normal and homogenous in echogenicity. Right and left ovaries are within normal limits. The right ovary measures 2.6 x 1.8 x 1.5 cm and left ovary measures 3.5 x 3.3 x 1.6 cm. No adnexal mass. No free fluid seen in the pelvis. [facility]-[id number] Performing Organization Address City/State/Zipcode Phone Number [facility] [address] [place] [address] Urinalysis screen and microscopy, with reflex to culture (11/10/2018 5:20 PM [employer]) Specimen site Clean catch [facility] Color, UA Yellow [facility] Appearance, UA Clear [facility] Specific gravity, UA 1.012 1.001 - 1.030 [facility] pH, UA 5.0 5.0 - 9.0 [facility] Protein, UA Negative Negative [facility] Glucose, UA Negative Negative [facility] Ketones, UA 1+ (A) Negative [facility] Bilirubin, UA Negative Negative [facility] Blood, UA Moderate (A) Negative [facility] Nitrite, UA Negative Negative [facility] Urobilinogen, UA <2.0 <2.0 E.U./dL [facility] Leukocyte esterase, UA Negative Negative [facility] Epithelial cells, UA <1 /HPF [facility] Round epithelial cells, UA <1 0 - 5 /HPF [facility] WBC, UA 1 0 - 4 /HPF [facility] RBC, UA 6 (H) 0 - 5 /HPF [facility] Bacteria, UA None seen None seen [facility] Yeast, UA None seen [facility] Yeast with pseudohyphae, UA None seen [facility] Specimen Urine Performing Organization Address City/[facility]/Zipcode Phone Number [facility] [id number] [place] [address] Estimated GFR (11/10/2018 5:20 PM [employer]) Estimated GFR >=90 mL/min/1.73 m2 [facility] Comment: [facility] CatergoryUnitsInterpretation G1 >=90 Normal or high G2 60-89Mildly decreased [id number] to moderately decreased [id number] to severely decreased G4 15-29Severely decreased G5 <15Kidney failure The eGFR was calculated using the Chronic Kidney Disease Epidemiology Collaboration (CKD-EPI) equation. Interpretation is based on recommendations of the National Kidney Foundation-Kidney Disease Outcomes Quality Initiative (NKF-KDOQI) published in 2014. Specimen Plasma specimen Performing Organization Address City/State/Zipcode Phone Number [facility] [id number] [place] [address] [place] [address] HOSPITAL RH type (11/10/2018 5:20 PM [employer]) Rh type POS [facility] Specimen Blood Performing Organization Address City/State/Zipcode Phone Number [facility] [address] [place] [address] AND [facility] [id number] [place] [address] CBC with platelet and differential (11/10/2018 5:20 PM [employer]) WBC 13.5 (H) 4.5 - 11.0 k/uL [facility] RBC 4.27 4.20 - 5.50 m/uL [facility] HGB 13.6 12.0 - 16.0 g/dL [facility] HCT 41.1 37.0 - 47.0 % [facility] MCV 96.3 82.0 - 100.0 fL [facility] MCH 31.9 27.0 - 34.0 pg [facility] MCHC 33.1 31.0 - 37.0 g/dL [facility] RDW - SD 46.3 37.0 - 55.0 fL [facility] MPV 11.0 6.9 - 11.0 fL [facility] Platelet count 357 150 - 400 K/uL [facility] Nucleated RBC 0.00 /100 WBC [facility] Neutrophils 61.0 39.0 - 69.0 % [facility] Lymphocytes 33.7 25.0 - 45.0 % [facility] Monocytes 4.1 0.0 - 10.0 % [facility] Eosinophils 0.5 0.0 - 5.0 % [facility] Basophils 0.3 0.0 - 1.0 % [facility] Immature granulocytes 0.4 0.0 - 1.0 % [facility] Specimen Blood Performing Organization Address City/State/Zipcode Phone Number [facility] [address] [place] [address] AND [facility] [address] hCG quantitative, serum (11/10/2018 5:20 PM [employer]) hCG quantitative, serum 34 (H) 0 - 5 mIU/mL [facility] Reference range for HCG Quant applies to males and non- females. Post Menopausal 0.0 - 8.1 mIU/mL Specimen Blood Performing Organization Address City/State/Zipcode Phone Number [facility] [id number] [place] [address] Comprehensive metabolic panel (11/10/2018 5:20 PM [employer]) Sodium 137 135 - 148 mEq/L [facility] Potassium 3.8 3.5 - 5.0 mEq/L [facility] Chloride 98 98 - 112 mEq/L [facility] CO2 24 24 - 31 mEq/L [facility] Anion gap 15@ANIO 7 - 15 mEq/L [facility] BUN 9 6 - 20 mg/dL [facility] Creatinine 0.54 0.50 - 0.90 mg/dL [facility] Glucose 100 (H) 65 - 99 mg/dL [facility] Calcium 9.9 8.3 - 10.2 mg/dL [facility] Protein 8.4 (H) 6.3 - 8.3 g/dL [facility] Albumin 4.8 3.5 - 5.0 g/dL [facility] A/G ratio 1.3 0.7 - 3.8 [facility] Alkaline phosphatase 70 35 - 104 U/L [facility] AST 18 10 - 35 U/L [facility] ALT 23 5 - 50 U/L [facility] Total bilirubin 0.4 0.2 - 1.2 mg/dL [facility] Specimen Plasma specimen Performing Organization Address City/State/Zipcode Phone Number [facility] [address] [place] [address] [place] [address] HOSPITAL Urine culture (11/10/2018 5:15 PM [employer]) Urine culture SEE COMMENTComment: Bacteriuria [facility] screen negative. HOSPITAL Performing Organization Address City/State/Zipcode Phone Number [facility] [address] [place] [address] AND [facility] [address] [facility] [place] [address] HOSPITAL after 04/09/2018 Insurance Payer Benefit Plan / Group Subscriber ID Type Phone Address MISC MEDICARE REPLACEMENT MISC MEDICARE REPLACEMENT xxxxxxxxxxx [facility] Advance Directives Patient has advance care planning documents on file. For more information, please contact:Sergio Ferreira[address] [place] [address]
--- OUTSIDE RECORDS SUMMARY | 2019-04-10 10:06 | XMS REPORT ---
:1985 [facility] Address [address] [place] [address] [address] Care Team Providers Name Role Phone Unavailable Unavailable Unavailable Payers Payer Name Policy Type Policy Number Effective Date Expiration Date Problems This patient has no known problems. Allergies, Adverse Reactions, Alerts Allergy Allergy Status Severity Reaction(s) Onset Inactive Treating Comments Name Type Date Date Clinician ibuprofen DA Active U 2018-11 00:00:0 0 ibuprofen DA Active U 2016-12 00:00:0 0 Medications This patient has no known medications.
--- NOTE | 2019-04-10 11:39 | EDPHYS ---
Physician Documentation [facility] Name: Mckenna Haney Age: 34 yrs Sex: Female : 1985 Arrival Date: 04/10/2019 Time: 09:51 Bed 9 Private MD: ED Physician Prince Weber HPI: 04/10 10:49 This 34 yrs old Female presents to ER via Ambulatory with complaints of Cough, kb Sore Throat. 10:49 The patient or guardian reports cough, that is intermittent, described as mild, flu kb symptoms, low-grade fever, myalgias. Onset: The symptoms/episode began/occurred 3 day(s) ago. Severity of symptoms: At their worst the symptoms were mild, in the emergency department the symptoms are unchanged. Modifying factors: The symptoms are alleviated by nothing, the symptoms are aggravated by nothing. Associated signs and symptoms: Pertinent positives: fever, sore throat, Pertinent negatives: chest pain, diarrhea, ear ache, nausea, rhinorrhea, vomiting. The patient has not experienced similar symptoms in the past. The patient has not recently seen a physician. 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 - Social history:: Smoking status: Patient/guardian denies using tobacco. - Ebola Screening: : Patient negative for fever greater than or equal to 101.5 degrees Fahrenheit, and additional compatible Ebola Virus Disease symptoms Patient denies exposure to infectious person Patient denies travel to an Ebola-affected area in the 21 days before illness onset No symptoms or risks identified at this time. ROS: 10:48 Neck: Negative for injury, pain, and swelling, Cardiovascular: Negative for chest pain, kb palpitations, and edema, Abdomen/GI: Negative for abdominal pain, nausea, vomiting, diarrhea, and constipation, Back: Negative for injury and pain, : Negative for injury, bleeding, discharge, and swelling, MS/Extremity: Negative for injury and deformity, Skin: Negative for injury, rash, and discoloration, Neuro: Negative for headache, weakness, numbness, tingling, and seizure. 10:48 Constitutional: Positive for body aches, chills, fever. 10:48 ENT: Positive for sore throat. 10:48 Respiratory: Positive for cough, Negative for dyspnea on exertion, hemoptysis, orthopnea, pleurisy, shortness of breath, sputum production, wheezing. Exam: 10:48 Constitutional: This is a well developed, well nourished patient who is awake, alert, kb and in no acute distress. Head/Face: Normocephalic, atraumatic. ENT: Nares patent. No nasal discharge, no septal abnormalities noted. Tympanic membranes are normal and external auditory canals are clear. Oropharynx with no redness, swelling, or masses, exudates, or evidence of obstruction, uvula midline. Mucous membranes moist. Neck: Trachea midline, no thyromegaly or masses palpated, and no cervical lymphadenopathy. Supple, full range of motion without nuchal rigidity, or vertebral point tenderness. No Meningismus. Chest/axilla: Normal chest wall appearance and motion. Nontender with no deformity. No lesions are appreciated. Cardiovascular: Regular rate and rhythm with a normal S1 and S2. No gallops, murmurs, or rubs. Normal PMI, no JVD. No pulse deficits. Respiratory: Lungs have equal breath sounds bilaterally, clear to auscultation and percussion. No rales, rhonchi or wheezes noted. No increased work of breathing, no retractions or nasal flaring. Abdomen/GI: Soft, non-tender, with normal bowel sounds. No distension or tympany. No guarding or rebound. No evidence of tenderness throughout. Skin: Warm, dry with normal turgor. Normal color with no rashes, no lesions, and no evidence of cellulitis. MS/ Extremity: Pulses equal, no cyanosis. Neurovascular intact. Full, normal range of motion. Neuro: Awake and alert, GCS 15, oriented to person, place, time, and situation. Cranial nerves II-XII grossly intact. Motor strength 5/5 in all extremities. Sensory grossly intact. Cerebellar exam normal. Normal gait. Vital Signs: 10:10 BP 141 / 67; Pulse 71; Resp 16; Temp 97.1; Pulse Ox 100% on R/A; Weight 104.33 kg; iw Height 5 ft. 4 in. (162.56 cm); Pain 10/10; 10:10 Body Mass Index 39.48 (104.33 kg, 162.56 cm) iw MDM: 10:33 Patient medically screened. kb 10:49 Data reviewed: vital signs, nurses notes. Data interpreted: Pulse oximetry: on room air kb is 100 %. Interpretation: normal. Counseling: I had a detailed discussion with the patient and/or guardian regarding: the historical points, exam findings, and any diagnostic results supporting the discharge/admit diagnosis, lab results, the need for outpatient follow up, a family practitioner, to return to the emergency department if symptoms worsen or persist or if there are any questions or concerns that arise at home. 04/10 10:36 Order name: Flu; Complete Time: 11:21 kb 04/10 10:36 Order name: Strep; Complete Time: 11:21 kb 04/10 11:22 Order name: Throat Culture EDMS Administered Medications: No medications were administered Disposition: 15:12 Co-signature as Attending Physician, Prince Weber MD. rn Disposition: 04/10/19 11:38 Discharged to Home. Impression: Acute pharyngitis. - Condition is Stable. - Discharge Instructions: Pharyngitis, [id number], Viral Respiratory Infection, [id number], Sore Throat, [id number]. - Medication Reconciliation Form, Thank You Letter, Antibiotic Education, Prescription Opioid Use form. - Follow up: Emergency Department; When: As needed; Reason: Worsening of condition. Follow up: Private Physician; When: 2 - 3 days; Reason: Recheck today's complaints, Continuance of care, Re-evaluation by your physician. Signatures: Dispatcher [employer] EDMS Clair Tadeo, ROBBI ASHLEY-Eunice Rosenberg RN RN Prince Ulloa MD MD sales and marketing intern: (The following items were deleted from the chart) 11:59 11:38 04/10/2019 11:38 Discharged to Home. Impression: Acute pharyngitis. Condition is iw Stable. Forms are Medication Reconciliation Form, Thank You Letter, Antibiotic Education, Prescription Opioid Use. Follow up: Emergency Department; When: As needed; Reason: Worsening of condition. Follow up: Private Physician; When: 2 - 3 days; Reason: Recheck today's complaints, Continuance of care, Re-evaluation by your physician. kb
--- NOTE | 2019-04-10 11:39 | ER ---
Nurse's Notes [facility] Name: Mckenna Haney Age: 34 yrs Sex: Female : 1985 Arrival Date: 04/10/2019 Time: 09:51 Bed 9 Private MD: Diagnosis: Acute pharyngitis Presentation: 04/10 10:07 Presenting complaint: Patient states: cough, sore throat, runny nose, and mid abd pain iw X 1 week, vomited 3 times, c/o headaches, body aches, fever at home, also has sore throat. Transition of care: patient was not received from another setting of care. Onset of symptoms was April 03, 2019. Risk Assessment: Do you want to hurt yourself or someone else? Patient reports no desire to harm self or others. Initial Sepsis Screen: Does the patient meet any 2 criteria? No. Patient's initial sepsis screen is negative. Does the patient have a suspected source of infection? No. Patient's initial sepsis screen is negative. Care prior to arrival: None. 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 - Social history:: Smoking status: Patient/guardian denies using tobacco. - Ebola Screening: : Patient negative for fever greater than or equal to 101.5 degrees Fahrenheit, and additional compatible Ebola Virus Disease symptoms Patient denies exposure to infectious person Patient denies travel to an Ebola-affected area in the 21 days before illness onset No symptoms or risks identified at this time. Screenin:49 Abuse screen: Denies threats or abuse. Denies injuries from another. Nutritional iw screening: No deficits noted. Tuberculosis screening: No symptoms or risk factors identified. Fall Risk None identified. Assessment: 11:06 General: Appears in no apparent distress. Behavior is calm, cooperative. Pain: iw Complains of pain in abdomen, back of head and posterior chest. Neuro: Level of Consciousness is awake, alert, obeys commands, Moves all extremities. Full function. Cardiovascular: Capillary refill < 3 seconds in bilateral fingers Patient's skin is warm and dry. Respiratory: Airway is patent Respiratory effort is even, unlabored, Breath sounds are clear bilaterally. Respiratory: Reports cough that is dry. GI: Abdomen is non-distended, Reports upper abdominal pain, nausea. EENT: Throat is reddened Reports difficulty swallowing pain when swallowing. Musculoskeletal: Range of motion: intact in all extremities. Vital Signs: 10:10 BP 141 / 67; Pulse 71; Resp 16; Temp 97.1; Pulse Ox 100% on R/A; Weight 104.33 kg; iw Height 5 ft. 4 in. (162.56 cm); Pain 10/10; 10:10 Body Mass Index 39.48 (104.33 kg, 162.56 cm) iw ED Course: 09:51 Patient arrived in ED. mr 10:07 Clair Tadeo FNP-C is [facility]. kb 10:07 Prince Weber MD is Attending Physician. kb 10:09 Triage completed. iw 10:10 Arm band placed on. iw 10:38 Eunice Pichardo, RN is Primary Nurse. iw 10:49 Flu and/or RSV swab sent to lab. Strep swab sent to lab. iw 10:58 Patient did not have IV access during this emergency room visit. iw 11:06 Patient has correct armband on for positive identification. iw 11:06 No provider procedures requiring assistance completed. iw Administered Medications: No medications were administered Outcome: 11:38 Discharge ordered by . kb 11:58 Discharged to home ambulatory. iw 11:58 Condition: good 11:58 Discharge instructions given to patient, Instructed on discharge instructions, follow up and referral plans. Demonstrated understanding of instructions, follow-up care. 11:59 Patient left the ED. iw Signatures: Clair Tadeo FNP-C FNP-Alexia GusmanaGraciela mr Eunice Pichardo, RN RN iw
== END 2019-04-10 11:59 | disposition home or self-care (01) ==
LOC: ER 09:47
DX: J02.9 Acute pharyngitis, unspecified (principal); E11.9 Type 2 diabetes mellitus without complications; E78.00 Pure hypercholesterolemia, unspecified; I10 Essential (primary) hypertension
CPT/HCPCS: 87070; 87081; 87804; 99283

== ENCOUNTER 2019-04-12 09:17 | Emergency (ER) | payer OTHER ==
--- OUTSIDE RECORDS SUMMARY | 2019-04-12 09:19 | XMS REPORT | Clinical Summary ---
:1985 Author Organization [facility] [employer] Address [address] [place] [address] Care Team Providers Name Role Phone Cm [...] a day. Take 1 tablet 0 Active vit,[id number] by mouth daily. olic 29 mg iron- [...] MD , first trimester (Primary Dx) after 04/11/2018 Immunizations Name Dates Previously Given Next Due [...] Taken Blood Pressure 139/84 11/10/2018 3:44 PM LIDDING MACHINE OPERATOR Pulse 95 11/10/2018 3:44 PM LIDDING MACHINE OPERATOR Temperature 36.7 C (98 F) 11/10/2018 3:44 PM LIDDING MACHINE OPERATOR Respiratory Rate 20 11/10/2018 3:44 PM LIDDING MACHINE OPERATOR Oxygen Saturation 100% 11/10/2018 3:44 PM LIDDING MACHINE OPERATOR Inhaled Oxygen Concentration - - Weight - - Height 162.6 cm (5' 4") 11/10/2018 3:41 PM LIDDING MACHINE OPERATOR Body Mass Index - - Plan of Treatment Health Maintenance Due Date Last Done Comments CERVICAL CANCER SCREENING 2008 INFLUENZA VACCINE 06/27/2019 01/09/2018 Procedures Procedure Name Priority Date/Time Associated Comments Diagnosis US STAT 11/10/2018 7:27 Results for this TRANSVAGINAL PM LIDDING MACHINE OPERATOR procedure are in the results section. US SINGLE STAT 11/10/2018 7:20 Results for this LESS THAN 14 WEEKS PM LIDDING MACHINE OPERATOR procedure are in the results section. ESTIMATED GFR STAT 11/10/2018 5:20 Results for this PM LIDDING MACHINE OPERATOR procedure are in the results section. RH TYPE STAT 11/10/2018 5:20 Results for this PM LIDDING MACHINE OPERATOR procedure are in the results section. HCG QUANTITATIVE, STAT 11/10/2018 5:20 Results for this SERUM PM LIDDING MACHINE OPERATOR procedure are in the results section. URINALYSIS SCREEN AND STAT 11/10/2018 5:20 Results for this MICROSCOPY, WITH PM LIDDING MACHINE OPERATOR procedure are in REFLEX TO CULTURE the results section. COMPREHENSIVE STAT 11/10/2018 5:20 Results for this METABOLIC PANEL PM LIDDING MACHINE OPERATOR procedure are in the results section. HC COMPLETE BLD COUNT STAT 11/10/2018 5:20 Results for this W/AUTO DIFF PM LIDDING MACHINE OPERATOR procedure are in the results section. URINE CULTURE STAT 11/10/2018 5:15 Results for this PM LIDDING MACHINE OPERATOR procedure are in the results section. after 04/11/2018 Results US Transvaginal (11/10/2018 7:27 PM LIDDING MACHINE OPERATOR) Narrative Performed At EXAM: US TRANSVAGINAL, US SINGLE LESS THAN 14 WEEKS [facility] CLINICAL INDICATIONS:vaginal spotting TECHNIQUE: Pelvic [...] No free fluid seen in the pelvis. [facility]-[id number] Procedure Note [facility], Radiology Results Incoming - 11/10/2018 8:06 PM LIDDING MACHINE OPERATOR EXAM: US TRANSVAGINAL, US SINGLE LESS THAN [...] No free fluid seen in the pelvis. [facility]-[id number] Performing Organization Address City/State/Zipcode Phone Number [facility] [address] [place] [address] US Single Less Than 14 Weeks (11/10/2018 7:20 PM LIDDING MACHINE OPERATOR) Narrative Performed At EXAM: US TRANSVAGINAL, US SINGLE LESS THAN 14 WEEKS [facility] CLINICAL INDICATIONS:vaginal spotting TECHNIQUE: Pelvic [...] No free fluid seen in the pelvis. [facility]-[id number] Procedure Note Interface, Radiology Results Incoming - 11/10/2018 8:06 PM LIDDING MACHINE OPERATOR EXAM: US TRANSVAGINAL, US SINGLE LESS THAN [...] No free fluid seen in the pelvis. [facility]-[id number] Performing Organization Address City/State/Zipcode Phone Number [facility] [address] [place] [address] Urinalysis screen and microscopy, with reflex to culture (11/10/2018 5:20 PM LIDDING MACHINE OPERATOR) Specimen site Clean catch [facility] Color, UA Yellow [facility] Appearance, UA Clear [facility] Specific gravity, UA 1.012 1.001 - 1.030 [facility] pH, UA 5.0 5.0 - 9.0 [facility] Protein, UA Negative Negative [facility] Glucose, UA Negative Negative [facility] Ketones, UA 1+ (A) Negative [facility] Bilirubin, UA Negative Negative [facility] Blood, UA Moderate (A) Negative [facility] Nitrite, UA Negative Negative [facility] Urobilinogen, UA <2.0 <2.0 E.U./dL [facility] Leukocyte esterase, UA Negative Negative [facility] Epithelial cells, UA <1 /HPF [facility] Round epithelial cells, UA <1 0 - 5 /HPF [facility] WBC, UA 1 0 - 4 /HPF [facility] RBC, UA 6 (H) 0 - 5 /HPF [facility] Bacteria, UA None seen None seen [facility] Yeast, UA None seen [facility] Yeast with pseudohyphae, UA None seen [facility] Specimen Urine Performing Organization Address City/[facility] [address]/Zipcode Phone Number [facility] DEPARTMENT OF PATHOLOGY [id number] [place] [address] Estimated GFR (11/10/2018 5:20 PM LIDDING MACHINE OPERATOR) Estimated GFR >=90 mL/min/1.73 m2 [facility] Comment: [facility] CatergoryUnitsInterpretation G1 >=90 Normal or high G2 60-89Mildly decreased [id number] to moderately decreased [id number] to severely decreased G4 15-29Severely decreased G5 <15Kidney failure The eGFR was calculated using the Chronic Kidney Disease Epidemiology Collaboration (CKD-EPI) equation. Interpretation is based on recommendations of the National Kidney Foundation-Kidney Disease Outcomes Quality Initiative (NKF-KDOQI) published in 2014. Specimen Plasma specimen Performing Organization Address City/State/Zipcode Phone Number [facility] DEPARTMENT OF PATHOLOGY [id number] [place] [address] [place] [address] HOSPITAL RH type (11/10/2018 5:20 PM LIDDING MACHINE OPERATOR) Rh type POS [facility] Specimen Blood Performing Organization Address City/State/Zipcode Phone Number [facility] DEPARTMENT OF PATHOLOGY [address] [place] [address] AND [facility] [id number] [place] [address] CBC with platelet and differential (11/10/2018 5:20 PM LIDDING MACHINE OPERATOR) WBC 13.5 (H) 4.5 - 11.0 k/uL [facility] RBC 4.27 4.20 - 5.50 m/uL [facility] HGB 13.6 12.0 - 16.0 g/dL [facility] HCT 41.1 37.0 - 47.0 % [facility] MCV 96.3 82.0 - 100.0 fL [facility] MCH 31.9 27.0 - 34.0 pg [facility] MCHC 33.1 31.0 - 37.0 g/dL [facility] RDW - SD 46.3 37.0 - 55.0 fL [facility] MPV 11.0 6.9 - 11.0 fL [facility] Platelet count 357 150 - 400 K/uL [facility] Nucleated RBC 0.00 /100 WBC [facility] Neutrophils 61.0 39.0 - 69.0 % [facility] Lymphocytes 33.7 25.0 - 45.0 % [facility] Monocytes 4.1 0.0 - 10.0 % [facility] Eosinophils 0.5 0.0 - 5.0 % [facility] Basophils 0.3 0.0 - 1.0 % [facility] Immature granulocytes 0.4 0.0 - 1.0 % [facility] Specimen Blood Performing Organization Address City/State/Zipcode Phone Number [facility] DEPARTMENT OF PATHOLOGY [address] [place] [address] AND [facility] [address] hCG quantitative, serum (11/10/2018 5:20 PM LIDDING MACHINE OPERATOR) hCG quantitative, serum 34 (H) 0 - 5 mIU/mL [facility] Reference range for HCG Quant applies to males and non- females. Post Menopausal 0.0 - 8.1 mIU/mL Specimen Blood Performing Organization Address City/State/Zipcode Phone Number [facility] DEPARTMENT OF PATHOLOGY [id number] [place] [address] Comprehensive metabolic panel (11/10/2018 5:20 PM LIDDING MACHINE OPERATOR) Sodium 137 135 - 148 mEq/L [facility] Potassium 3.8 3.5 - 5.0 mEq/L [facility] Chloride 98 98 - 112 mEq/L [facility] CO2 24 24 - 31 mEq/L [facility] Anion gap 15@ANIO 7 - 15 mEq/L [facility] BUN 9 6 - 20 mg/dL [facility] Creatinine 0.54 0.50 - 0.90 mg/dL [facility] Glucose 100 (H) 65 - 99 mg/dL [facility] Calcium 9.9 8.3 - 10.2 mg/dL [facility] Protein 8.4 (H) 6.3 - 8.3 g/dL [facility] Albumin 4.8 3.5 - 5.0 g/dL [facility] A/G ratio 1.3 0.7 - 3.8 [facility] Alkaline phosphatase 70 35 - 104 U/L [facility] AST 18 10 - 35 U/L [facility] ALT 23 5 - 50 U/L [facility] Total bilirubin 0.4 0.2 - 1.2 mg/dL [facility] Specimen Plasma specimen Performing Organization Address City/State/Zipcode Phone Number [facility] DEPARTMENT OF PATHOLOGY [address] [place] [address] [place] [address] HOSPITAL Urine culture (11/10/2018 5:15 PM LIDDING MACHINE OPERATOR) Urine culture SEE COMMENTComment: Bacteriuria [facility] screen negative. HOSPITAL Performing Organization Address City/State/Zipcode Phone Number [facility] DEPARTMENT OF PATHOLOGY [address] [place] [address] AND [facility] [address] [facility] [place] [address] HOSPITAL after 04/11/2018 Insurance Payer Benefit Plan / Group Subscriber ID Type Phone Address MISC MEDICARE REPLACEMENT MISC MEDICARE REPLACEMENT xxxxxxxxxxx [facility] Advance Directives Patient has advance care planning documents on file. For more information, please contact:Sergio Ferreira[address] [place] [address]
--- OUTSIDE RECORDS SUMMARY | 2019-04-12 09:19 | XMS REPORT ---
:1985 [facility] Address [address] [place] [address] [address] Care Team Providers Name Role Phone Unavailable [...]
[2019-04-12] MEDS ORDERED: ACETAMINOPHEN 325 MG TABLET ONE (11:33)
--- NOTE | 2019-04-12 12:19 | RAD REPORT ---
EXAM DESCRIPTION: RAD - Lumbar Spine 3 Views - 04/12/2019 12:12 pm CLINICAL HISTORY: LOWER BACK PAIN Radiculopathy COMPARISON: No comparisons FINDINGS: Vertebral body heights appear maintained. No compression fracture noted. Disc spaces are m aintained. No spondylolysis or spondylolisthesis. IMPRESSION: Negative study.
--- NOTE | 2019-04-12 12:32 | ER ---
Nurse's Notes [facility] Name: Mckenna Haney Age: 34 yrs Sex: Female : 1985 Arrival Date: 04/12/2019 Time: 09:18 Bed 15 Private MD: Diagnosis: Low back pain Presentation: 04/12 09:45 Presenting complaint: Patient states: back pain x 3-4 days. Denies injury. Transition ss of care: patient was not received from another setting of care. Onset of symptoms was April 09, 2019. Risk Assessment: Do you want to hurt yourself or someone else? Patient reports no desire to harm self or others. Initial Sepsis Screen: Does the patient meet any 2 criteria? No. Patient's initial sepsis screen is negative. Does the patient have a suspected source of infection? No. Patient's initial sepsis screen is negative. Care prior to arrival: None. 09:45 Method Of Arrival: Ambulatory ss 09:45 Acuity: LILO 4 ss MGMT CONSULTANT: 13:31 LMP N/A - negative UPT aj1 Historical: - Allergies: 09:46 Ibuprofen (Hives); ss - Home Meds: 09:46 atorvastatin 10 mg Oral tab 1 tab once daily [Active]; glipizide 10 mg Oral tab 1 tab ss once daily [Active]; Januvia 100 mg Oral tab 1 tab once daily [Active]; lisinopril 2.5 mg Oral tab 1 tab once daily [Active]; metformin 1,000 mg Oral tab 1 tab 2 times per day [Active]; metronidazole 500 mg Oral tab 2 times per day [Active]; montelukast 10 mg Oral tab 1 tab once daily [Active]; - PMHx: 09:46 High Cholesterol; Diabetes - NIDDM; Hypertension; ss - PSHx: 09:46 Cholecystectomy; ss - Immunization history:: Adult Immunizations up to date. - Social history:: Smoking status: Patient/guardian denies using tobacco. - Ebola Screening: : Patient denies exposure to infectious person Patient denies travel to an Ebola-affected area in the 21 days before illness onset. Screenin:30 Abuse screen: Denies threats or abuse. Denies injuries from another. Nutritional aj1 screening: No deficits noted. Tuberculosis screening: No symptoms or risk factors identified. 13:32 Fall Risk None identified. aj1 Assessment: 10:30 General: Appears in no apparent distress. uncomfortable, Behavior is calm, cooperative, aj1 appropriate for age. Pain: Complains of pain in back Pain does not radiate. Pain currently is 9 out of 10 on a pain scale. Neuro: Level of Consciousness is awake, alert, obeys commands, Oriented to person, place, time, situation, Speech is normal, Facial symmetry appears normal. Cardiovascular: Patient's skin is warm and dry. Respiratory: Airway is patent Respiratory effort is even, unlabored, Respiratory pattern is regular, symmetrical. GI: No signs and/or symptoms were reported involving the gastrointestinal system. : No signs and/or symptoms were reported regarding the genitourinary system. EENT: No signs and/or symptoms were reported regarding the EENT system. Derm: No signs and/or symptoms reported regarding the dermatologic system. Skin is pink, warm \T\ dry. normal. Musculoskeletal: Circulation, motion, and sensation intact. 11:30 Reassessment: Patient appears in no apparent distress at this time. No changes from aj1 previously documented assessment. Patient and/or family updated on plan of care and expected duration. Pain level reassessed. Patient is alert, oriented x 3, equal unlabored respirations, skin warm/dry/pink. 11:59 Reassessment: Patient transported to X-Ray via wheelchair. aj1 12:14 Reassessment: Patient returned to ER bed 15, ambulates to bathroom with a steady gait. aj1 General: Appears in no apparent distress. comfortable, Behavior is calm, cooperative, appropriate for age. Neuro: Level of Consciousness is awake, alert, obeys commands, Moves all extremities. Full function Gait is steady, Speech is normal. Cardiovascular: Patient's skin is warm and dry. Respiratory: Airway is patent Respiratory effort is even, unlabored, Respiratory pattern is regular, symmetrical. Derm: Skin is pink, warm \T\ dry. normal. Musculoskeletal: Circulation, motion, and sensation intact. 13:30 Reassessment: Patient appears in no apparent distress at this time. No changes from aj1 previously documented assessment. Patient and/or family updated on plan of care and expected duration. Pain level reassessed. Patient is alert, oriented x 3, equal unlabored respirations, skin warm/dry/pink. Vital Signs: 09:46 BP 124 / 80; Pulse 88; Resp 15; Temp 97.4(TE); Pulse Ox 99% on R/A; Weight 104.33 kg; Height 5 ft. 4 in. (162.56 cm); 11:30 BP 127 / 85; Pulse 72; Resp 18; Pulse Ox 99% on R/A; aj1 13:30 BP 111 / 76; Pulse 77; Resp 18; Pulse Ox 100% on R/A; aj1 09:46 Body Mass Index 39.48 (104.33 kg, 162.56 cm) ED Course: 09:18 Patient arrived in ED. as 09:46 Triage completed. 09:46 Arm band placed on left wrist. 10:11 Magdi Falcon PA is PHCP. [facility] 10:11 Qasim Smith MD is Attending Physician. [facility] 10:22 Luciana Ray, RN is Primary Nurse. aj1 10:30 Patient has correct armband on for positive identification. Bed in low position. Call aj1 light in reach. Side rails up X 1. Pulse ox on. NIBP on. 10:30 No provider procedures requiring assistance completed. aj1 11:45 Radiology exam delayed due to test not completed at this time. sw 12:01 Patient moved to radiology via wheelchair. sw 12:05 X-ray completed. Patient tolerated procedure well. Patient moved back from radiology. sw 12:06 Lumbar Spine (3 Views) XRAY In Process Unspecified. EDMS 13:31 Patient did not have IV access during this emergency room visit. aj1 Administered Medications: 11:39 Drug: Tylenol 650 mg Route: PO; aj1 13:32 Follow up: Response: No adverse reaction aj Outcome: 12:31 Discharge ordered by . [facility] 13:32 Discharged to home ambulatory. aj1 13:32 Condition: good 13:32 Discharge instructions given to patient, Instructed on discharge instructions, follow up and referral plans. medication usage, Demonstrated understanding of instructions, follow-up care, medications, Prescriptions given X 1. 13:32 Patient left the ED. aj1 Signatures: Dispatcher [employer] EDMS Luciana Ray, RN RN [facility] Magdi Falcon PA PA jmm Martinez, Amelia as Smirch, Shelby RN RN Lisette Roach
--- NOTE | 2019-04-12 12:32 | EDPHYS ---
Physician Documentation [facility] Name: Mckenna Haney Age: 34 yrs Sex: Female : 1985 Arrival Date: 04/12/2019 Time: 09:18 Bed 15 Private MD: ED Physician Qasim Smith HPI: 04/12 10:25 This 34 yrs old Female presents to ER via Ambulatory with complaints of Back jmm Pain. 10:25 The patient presents with pain that is acute. Onset: The symptoms/episode jmm began/occurred gradually, 4 day(s) ago. The pain does not radiate. This is a 34 yea rold female with a history of htn, dm, that presents to the ED with complaints of lower back pain. Patient denies known injury. Denies fever, denies abdominal pain, denies leg weakness or numbness. Denies bowel or bladder dysfunction. . [employer]IE[employer] OPERATOR: 13:31 LMP N/A - negative UPT aj1 Historical: - Allergies: 09:46 Ibuprofen (Hives); ss - Home Meds: 09:46 atorvastatin 10 mg Oral tab 1 tab once daily [Active]; glipizide 10 mg Oral tab 1 tab ss once daily [Active]; Januvia 100 mg Oral tab 1 tab once daily [Active]; lisinopril 2.5 mg Oral tab 1 tab once daily [Active]; metformin 1,000 mg Oral tab 1 tab 2 times per day [Active]; metronidazole 500 mg Oral tab 2 times per day [Active]; montelukast 10 mg Oral tab 1 tab once daily [Active]; - PMHx: 09:46 High Cholesterol; Diabetes - NIDDM; Hypertension; ss - PSHx: 09:46 Cholecystectomy; ss - Immunization history:: Adult Immunizations up to date. - Social history:: Smoking status: Patient/guardian denies using tobacco. - Ebola Screening: : Patient denies exposure to infectious person Patient denies travel to an Ebola-affected area in the 21 days before illness onset. ROS: 10:25 Constitutional: Negative for fever, chills, and weight loss, Cardiovascular: Negative jmm for chest pain, palpitations, and edema, Respiratory: Negative for shortness of breath, cough, wheezing, and pleuritic chest pain. 10:25 Back: Positive for pain with movement. 10:25 All other systems are negative. Exam: 10:25 Constitutional: This is a well developed, well nourished patient who is awake, alert, jmm and in no acute distress. Head/Face: atraumatic. Eyes: EOMI, no conjunctival erythema appreciated ENT: Moist Mucus Membranes Neck: Trachea midline, Supple Chest/axilla: Normal chest wall appearance and motion. Cardiovascular: Regular rate and rhythm. No edema appreciated Respiratory: Normal respirations, no respiratory distress appreciated 10:25 Abdomen/GI: Inspection: obese Bowel sounds: normal, Palpation: abdomen is soft and non-tender, in all quadrants, Rectal exam: 10:25 Back: ROM is normal, mild paraspinal lumbar pain on palpation, no midline tenderness is appreciated. 10:25 Musculoskeletal/extremity: ROM: intact in all extremities. 10:25 Skin: Appearance: Color: normal in color. 10:25 Neuro: Orientation: is normal, Mentation: is normal, Memory: is normal. 10:25 Neuro: extensor hallucis longus intact. 10:25 Psych: Behavior/mood is pleasant, cooperative. Vital Signs: 09:46 BP 124 / 80; Pulse 88; Resp 15; Temp 97.4(TE); Pulse Ox 99% on R/A; Weight 104.33 kg; ss Height 5 ft. 4 in. (162.56 cm); 11:30 BP 127 / 85; Pulse 72; Resp 18; Pulse Ox 99% on R/A; aj1 13:30 BP 111 / 76; Pulse 77; Resp 18; Pulse Ox 100% on R/A; aj1 09:46 Body Mass Index 39.48 (104.33 kg, 162.56 cm) MDM: 10:20 Patient medically screened. [facility] 12:29 Data reviewed: vital signs, nurses notes. Counseling: I had a detailed discussion with [facility] the patient and/or guardian regarding: the historical points, exam findings, and any diagnostic results supporting the discharge/admit diagnosis, lab results, radiology results, the need for outpatient follow up, to return to the emergency department if symptoms worsen or persist or if there are any questions or concerns that arise at home. ED course: Patient is alert and non toxic in appearance in the ED. Pain is relieved. I do not suspect cord compression or an acute intrabdominal process at this time. Patient will follow up with pcp this Monday and is otherwise given strict return precautions. Patient understood and agrees with the plan of care. . 04/12 11:57 Order name: Urine Dipstick--Ancillary (enter results); Complete Time: 13:26 [facility] 04/12 11:57 Order name: Urine --Ancillary (enter results); Complete Time: 13:26 [facility] 04/12 10:25 Order name: Urine Dipstick-Ancillary (obtain specimen); Complete Time: 11:52 [facility] 04/12 10:25 Order name: Urine Test (obtain specimen); Complete Time: 11:52 [facility] 04/12 10:25 Order name: Lumbar Spine (3 Views) XRAY; Complete Time: 12:26 [facility] Administered Medications: 11:39 Drug: Tylenol 650 mg Route: PO; [facility] 13:32 Follow up: Response: No adverse reaction aj1 Disposition: 04/12/19 12:31 Discharged to Home. Impression: Low back pain. - Condition is Stable. - Discharge Instructions: Back Pain, Adult. - Prescriptions for orphenadrine citrate 100 mg Oral Tablet Sustained Release - take 1 tablet by ORAL route 2 times per day As needed; 20 tablet. - Medication Reconciliation Form, Thank You Letter, Antibiotic Education, Prescription Opioid Use form. - Follow up: Private Physician; When: 2 - 3 days; Reason: Recheck today's complaints, Continuance of care, Re-evaluation by your physician. Addendum: 04/13/2019 16:17 Co-signature as Attending Physician, Qasim Smith MD. g s Signatures: Dispatcher [employer] Luciana Delarosa RN RN aj1 Magdi Falcon PA PA jmm Smirch, Shelby, RN RN ss Starr, Gregory, MD MD gs Corrections: (The following items were deleted from the chart) 04/12 13:32 12:31 04/12/2019 12:31 Discharged to Home. Impression: Low back pain. Condition is aj1 Stable. Forms are Medication Reconciliation Form, Thank You Letter, Antibiotic Education, Prescription Opioid Use. Follow up: Private Physician; When: 2 - 3 days; Reason: Recheck today's complaints, Continuance of care, Re-evaluation by your physician. [facility]
[2019-04-12 13:20] LABS: Urine Blood NEGATIVE (NEG); Urine Glucose NEGATIVE (NEG); Urine Protein NEGATIVE (NEG); Urine pH 6.5 (5.0-7.0)
== END 2019-04-12 13:32 | disposition home or self-care (01) ==
LOC: ER 09:17
DX: M54.5 Low back pain (principal); I10 Essential (primary) hypertension; E78.00 Pure hypercholesterolemia, unspecified; E11.9 Type 2 diabetes mellitus without complications; Z88.6 Allergy status to analgesic agent
CPT/HCPCS: 72100; 81003; 81025; 99284

== ENCOUNTER 2019-04-14 20:15 | Emergency (ER) | payer OTHER ==
--- OUTSIDE RECORDS SUMMARY | 2019-04-14 20:18 | XMS REPORT | Clinical Summary ---
:1985 Author Organization [facility] Address [address] [place] [address] Care Team Providers Name Role Phone Cm [...] a day. Take 1 tablet 0 Active vit,[id number] by mouth daily. olic 29 mg iron- [...] MD , first trimester (Primary Dx) after 04/13/2018 Immunizations Name Dates Previously Given Next Due [...] Taken Blood Pressure 139/84 11/10/2018 3:44 PM [employer] [employer] Pulse 95 11/10/2018 3:44 PM [employer] Temperature 36.7 C (98 F) 11/10/2018 3:44 PM [employer] Respiratory Rate 20 11/10/2018 3:44 PM [employer] [employer] Oxygen Saturation 100% 11/10/2018 3:44 PM [employer] Inhaled Oxygen Concentration - - Weight - - Height 162.6 cm (5' 4") 11/10/2018 3:41 PM [employer] Body Mass Index - - Plan of Treatment Health Maintenance Due Date Last Done Comments CERVICAL CANCER SCREENING 2008 INFLUENZA VACCINE 06/27/2019 01/09/2018 Procedures Procedure Name Priority Date/Time Associated Comments Diagnosis US STAT 11/10/2018 7:27 Results for this TRANSVAGINAL PM [employer] procedure are in the results section. US SINGLE STAT 11/10/2018 7:20 Results for this LESS THAN 14 WEEKS PM [employer] procedure are in the results section. ESTIMATED GFR STAT 11/10/2018 5:20 Results for this PM [employer] procedure are in the results section. RH TYPE STAT 11/10/2018 5:20 Results for this PM [employer] procedure are in the results section. HCG QUANTITATIVE, STAT 11/10/2018 5:20 Results for this SERUM PM [employer] procedure are in the results section. URINALYSIS SCREEN AND STAT 11/10/2018 5:20 Results for this MICROSCOPY, WITH PM [employer] procedure are in REFLEX TO CULTURE the results section. COMPREHENSIVE STAT 11/10/2018 5:20 Results for this METABOLIC PANEL PM [employer] procedure are in the results section. HC COMPLETE BLD COUNT STAT 11/10/2018 5:20 Results for this W/AUTO DIFF PM [employer] procedure are in the results section. URINE CULTURE STAT 11/10/2018 5:15 Results for this PM [employer] procedure are in the results section. after 04/13/2018 Results US Transvaginal (11/10/2018 7:27 PM [employer]) Specimen Narrative Performed At EXAM: US TRANSVAGINAL, US SINGLE LESS THAN 14 WEEKS [facility] CLINICAL INDICATIONS:vaginal spotting TECHNIQUE: Pelvic ultrasound performed.Transabdominal [...] No free fluid seen in the pelvis. [facility]-[id number] Procedure Note [facility], Radiology Results Incoming - 11/10/2018 8:06 PM [employer] EXAM: US TRANSVAGINAL, US SINGLE LESS THAN [...] No free fluid seen in the pelvis. [facility]-[id number] Performing Organization Address City/State/Zipcode Phone Number [facility] [address] [place] [address] US Single Less Than 14 Weeks (11/10/2018 7:20 PM [employer]) Specimen Narrative Performed At EXAM: US TRANSVAGINAL, US SINGLE LESS THAN 14 WEEKS [facility] INDICATIONS:vaginal spotting TECHNIQUE: Pelvic ultrasound performed.Transabdominal [...] No free fluid seen in the pelvis. [facility]-[id number] Procedure Note Interface, Radiology Results Incoming - 11/10/2018 8:06 PM [employer] EXAM: US TRANSVAGINAL, US SINGLE LESS THAN [...] No free fluid seen in the pelvis. [facility]-[id number] Performing Organization Address City/State/Zipcode Phone Number [facility] [address] [place] [address] Urinalysis screen and microscopy, with reflex to culture (11/10/2018 5:20 PM [employer]) Specimen site Clean catch [facility] Color, UA Yellow [facility] Appearance, UA Clear [facility] Specific gravity, UA 1.012 1.001 - 1.030 [facility] pH, UA 5.0 5.0 - 9.0 [facility] Protein, UA Negative Negative [facility] Glucose, UA Negative Negative [facility] Ketones, UA 1+ (A) Negative [facility] Bilirubin, UA Negative Negative [facility] Blood, UA Moderate (A) Negative [facility] Nitrite, UA Negative Negative [facility] Urobilinogen, UA <2.0 <2.0 E.U./dL [facility] Leukocyte esterase, Negative Negative [facility] Epithelial cells, UA <1 /HPF [facility] Round epithelial <1 0 - 5 /HPF [facility] cells, UA [facility] WBC, UA 1 0 - 4 /HPF [facility] RBC, UA 6 (H) 0 - 5 /HPF [facility] Bacteria, UA None seen None seen [facility] Yeast, UA None seen [facility] Yeast with None seen [facility] pseudohyphae, UA [facility] Specimen Urine Performing Organization Address City[facility] Phone Number [facility] DEPARTMENT OF PATHOLOGY [address] [place] [address] [place] [address] HOSPITAL Estimated GFR (11/10/2018 5:20 PM [employer]) Pathologist [facility] Estimated GFR >=90 mL/min/1.73 [facility] Comment: [address] G1 >=90 Normal or high G2 60-89Mildly decreased [id number] to moderately decreased [id number] to severely decreased G4 15-29Severely decreased G5 <15Kidney failure The eGFR was calculated using the Chronic Kidney Disease Epidemiology Collaboration (CKD-EPI) equation. Interpretation is based on recommendations of the National Kidney Foundation-Kidney Disease Outcomes Quality Initiative (NKF-KDOQI) published in 2014. Specimen Plasma specimen Performing Organization Address City/[facility] Care [facility]/Zipcode Phone Number [facility] DEPARTMENT OF PATHOLOGY [address] [place] [address] [place] [address] HOSPITAL RH type (11/10/2018 5:20 PM [employer]) Rh type POS [facility] Specimen Blood Performing Organization Address City/State/Zipcode Phone Number [facility] DEPARTMENT OF PATHOLOGY [address] [place] [address] AND [facility] [id number] [place] [address] CBC with platelet and differential (11/10/2018 5:20 PM [employer]) WBC 13.5 (H) 4.5 - 11.0 k/uL [facility] RBC 4.27 4.20 - 5.50 [facility] m/uL [facility] HGB 13.6 12.0 - 16.0 [facility] g/dL [facility] HCT 41.1 37.0 - 47.0 % [facility] MCV 96.3 82.0 - 100.0 fL [facility] MCH 31.9 27.0 - 34.0 pg [facility] MCHC 33.1 31.0 - 37.0 [facility] g/dL [facility] RDW - SD 46.3 37.0 - 55.0 fL [facility] MPV 11.0 6.9 - 11.0 fL [facility] Platelet count 357 150 - 400 K/uL [facility] Nucleated RBC 0.00 /100 WBC [facility] Neutrophils 61.0 39.0 - 69.0 % [facility] Lymphocytes 33.7 25.0 - 45.0 % [facility] Monocytes 4.1 0.0 - 10.0 % [facility] Eosinophils 0.5 0.0 - 5.0 % [facility] Basophils 0.3 0.0 - 1.0 % [facility] Immature granulocytes 0.4 0.0 - 1.0 % [facility] Specimen Blood Performing Organization Address City/State/Zipcode Phone Number [facility] DEPARTMENT OF PATHOLOGY [address] [place] [address] AND [facility] [id number] [place] [address] hCG quantitative, serum (11/10/2018 5:20 PM [employer]) hCG quantitative, 34 (H) 0 - 5 mIU/mL [facility] serum Comment: JUANA DIAZ Reference range for HCG Quant applies to males and non- HOSPITAL females. Post Menopausal 0.0 - 8.1 mIU/mL Specimen Blood Performing Organization Address City/State/Zipcode Phone Number [facility] DEPARTMENT OF PATHOLOGY [id number] [place] [address] Comprehensive metabolic panel (11/10/2018 5:20 PM [employer]) Sodium 137 135 - 148 mEq/L [facility] Potassium 3.8 3.5 - 5.0 mEq/L [facility] Chloride 98 98 - 112 mEq/L [facility] CO2 24 24 - 31 mEq/L [facility] Anion gap 15@ANIO 7 - 15 mEq/L [facility] BUN 9 6 - 20 mg/dL [facility] Creatinine 0.54 0.50 - 0.90 [facility] mg/dL [facility] Glucose 100 (H) 65 - 99 mg/dL [facility] Calcium 9.9 8.3 - 10.2 mg/dL [facility] Protein 8.4 (H) 6.3 - 8.3 g/dL [facility] Albumin 4.8 3.5 - 5.0 g/dL [facility] A/G ratio 1.3 0.7 - 3.8 [facility] Alkaline phosphatase 70 35 - 104 U/L [facility] AST 18 10 - 35 U/L [facility] ALT 23 5 - 50 U/L [facility] Total bilirubin 0.4 0.2 - 1.2 mg/dL [facility] Specimen Plasma specimen Performing Organization Address City/State/Zipcode Phone Number [facility] DEPARTMENT OF PATHOLOGY [phone] [place] [address] Urine culture (11/10/2018 5:15 PM [employer]) Urine culture SEE COMMENTComment: [facility] Bacteriuria screen [facility] negative. Specimen Performing Organization Address City/State/Zipcode Phone Number [facility] DEPARTMENT OF PATHOLOGY [id number] [place], [place] [address]y. [place] [address] AND [facility] SERGIO ALLEN JUANA DIAZ [address] [facility] [place] [address] HOSPITAL after 04/13/2018 Insurance Payer Benefit Plan / Subscriber ID Effective Dates Phone Address Type Group MISC MEDICARE MISC MEDICARE xxxxxxxxxxx 2018-Present HMO REPLACEMENT REPLACEMENT [facility] xxxxxxxxx 2017-Presen HMO [place]ARY t ([place]) [place] [address] Advance Directives Patient has advance care planning documents on file. For more information, please contact:Sergio Allen[address] [place] [address]
--- OUTSIDE RECORDS SUMMARY | 2019-04-14 20:19 | XMS REPORT ---
:1985 Author Organization [facility] Address [address] [place] [address] [address] Care Team Providers Name Role Phone Unavailable [...]
--- NOTE | 2019-04-14 21:37 | ER ---
Nurse's Notes [facility] Name: Mckenna Haney Age: 34 yrs Sex: Female : 1985 Arrival Date: 04/14/2019 Time: 20:18 Bed 5 Private MD: Diagnosis: Hyperglycemia, unspecified;Hypertensive urgency Presentation: 04/14 20:34 Presenting complaint: Patient states: BP and blood sugar has been high, pain to back of iw head and weakness in legs, feels like she's going to pass out, started feeling bad this morning, BP was 177/120 at home, BGL at home was up to 200. Transition of care: patient was not received from another setting of care. Onset of symptoms was April 14, 2019. Risk Assessment: Do you want to hurt yourself or someone else? Patient reports no desire to harm self or others. Initial Sepsis Screen: Does the patient meet any 2 criteria? No. Patient's initial sepsis screen is negative. Does the patient have a suspected source of infection? No. Patient's initial sepsis screen is negative. Care prior to arrival: None. 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 iw Historical: - Allergies: 20:36 Ibuprofen (Hives); iw - Home Meds: 20:36 atorvastatin 10 mg Oral tab 1 tab once daily [Active]; glipizide 10 mg Oral tab 1 tab iw once daily [Active]; Januvia 100 mg Oral tab 1 tab once daily [Active]; lisinopril 2.5 mg Oral tab 1 tab once daily [Active]; metformin 1,000 mg Oral tab 1 tab 2 times per day [Active]; metronidazole 500 mg Oral tab 2 times per day [Active]; montelukast 10 mg Oral tab 1 tab once daily [Active]; - PMHx: 20:36 Diabetes - NIDDM; High Cholesterol; Hypertension; iw - PSHx: 20:36 Cholecystectomy; iw - Immunization history:: Adult Immunizations not up to date. - Social history:: Smoking status: Patient/guardian denies using tobacco. - Ebola Screening: : Patient negative for fever greater than or equal to 101.5 degrees Fahrenheit, and additional compatible Ebola Virus Disease symptoms Patient denies exposure to infectious person Patient denies travel to an Ebola-affected area in the 21 days before illness onset No symptoms or risks identified at this time. Screenin:03 Abuse screen: Denies threats or abuse. Denies injuries from another. Nutritional ak1 screening: No deficits noted. Tuberculosis screening: No symptoms or risk factors identified. Fall Risk None identified. Assessment: 21:02 General: Appears in no apparent distress. Behavior is calm, cooperative, pt seen at ak1 [facility] dx sinus infection given predinsone, amoxicillin and loratadine yesterday. pt educated on medications given as well as OTC medications. . Pain: Denies pain. Neuro: Level of Consciousness is awake, alert, obeys commands, Oriented to person, place, time, situation, Clinical Reimbursement Specialist are equal bilaterally Moves all extremities. Gait is steady, Speech is normal, Facial symmetry appears normal. Cardiovascular: No deficits noted. Respiratory: No deficits noted. GI: No signs and/or symptoms were reported involving the gastrointestinal system. : No signs and/or symptoms were reported regarding the genitourinary system. EENT: No signs and/or symptoms were reported regarding the EENT system. Derm: No signs and/or symptoms reported regarding the dermatologic system. Musculoskeletal: No signs and/or symptoms reported regarding the musculoskeletal system. Vital Signs: 20:36 BP 139 / 86; Pulse 89; Resp 16 S; Temp 98.0; Pulse Ox 98% on R/A; Weight 104.33 kg; iw Height 5 ft. 4 in. (162.56 cm); Pain 10/10; 21:00 BP 127 / 88; Pulse 83; Resp 18; Temp 98.0; Pulse Ox 100% on R/A; Pain 0/10; ak1 20:36 Body Mass Index 39.48 (104.33 kg, 162.56 cm) iw ED Course: 20:18 Patient arrived in ED. am2 20:35 Triage completed. iw 20:36 Arm band placed on. iw 20:44 Merlyn Kam, MARIN is Primary Nurse. ak1 20:50 Korey Roldan MD is Attending Physician. tw4 21:03 Patient has correct armband on for positive identification. Bed in low position. Call ak1 light in reach. Side rails up X 1. Pulse ox on. NIBP on. 21:42 No provider procedures requiring assistance completed. Patient did not have IV access ak1 during this emergency room visit. Administered Medications: No medications were administered Point of Care Testing: Blood Glucose: 21:00 Blood Glucose: 147 mg/dL; ak1 Ranges: Outcome: 21:37 Discharge ordered by . tw4 21:42 Discharged to home ambulatory. ak1 21:42 Condition: good 21:42 Discharge instructions given to patient, Instructed on discharge instructions, follow up and referral plans. Demonstrated understanding of instructions, follow-up care. 21:43 Patient left the ED. ak1 Signatures: Eunice Pichardo RN RN iw Merlyn Kam RN RN ak1 Kathryn Flynn am2 Korey Roldan MD MD tw4
--- NOTE | 2019-04-16 09:36 | EDPHYS ---
Physician Documentation [facility] Name: Mckenna Haney Age: 34 yrs Sex: Female : 1985 Arrival Date: 04/14/2019 Time: 20:18 Bed 5 Private MD: ED Physician Korey Roldan HPI: 04/15 05:15 This 34 yrs old Female presents to ER via Ambulatory with complaints of High tw4 Blood Pressure, High Blood Sugar. 05:15 The patient has elevated blood pressure and discovered this at home. Onset: The tw4 symptoms/episode began/occurred yesterday. Modifying factors: The symptoms are aggravated by The symptoms are alleviated by. Associated signs and symptoms: The patient has no apparent associated signs or symptoms. The patient has not experienced similar symptoms in the past. 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 04/14/2019 iw Historical: - Allergies: 20:36 Ibuprofen (Hives); iw - Home Meds: 20:36 atorvastatin 10 mg Oral tab 1 tab once daily [Active]; glipizide 10 mg Oral tab 1 tab iw once daily [Active]; Januvia 100 mg Oral tab 1 tab once daily [Active]; lisinopril 2.5 mg Oral tab 1 tab once daily [Active]; metformin 1,000 mg Oral tab 1 tab 2 times per day [Active]; metronidazole 500 mg Oral tab 2 times per day [Active]; montelukast 10 mg Oral tab 1 tab once daily [Active]; - PMHx: 20:36 Diabetes - NIDDM; High Cholesterol; Hypertension; iw - PSHx: 20:36 Cholecystectomy; iw - Immunization history:: Adult Immunizations not up to date. - Social history:: Smoking status: Patient/guardian denies using tobacco. - Ebola Screening: : Patient negative for fever greater than or equal to 101.5 degrees Fahrenheit, and additional compatible Ebola Virus Disease symptoms Patient denies exposure to infectious person Patient denies travel to an Ebola-affected area in the 21 days before illness onset No symptoms or risks identified at this time. ROS: 04/15 05:15 Constitutional: Negative for fever, chills, and weight loss, Eyes: Negative for injury, tw4 pain, redness, and discharge, Cardiovascular: Negative for chest pain, palpitations, and edema, Respiratory: Negative for shortness of breath, cough, wheezing, and pleuritic chest pain, Abdomen/GI: Negative for abdominal pain, nausea, vomiting, diarrhea, and constipation, Back: Negative for injury and pain, MS/Extremity: Negative for injury and deformity, Skin: Negative for injury, rash, and discoloration. Exam: 05:15 Constitutional: This is a well developed, well nourished patient who is awake, alert, tw4 and in no acute distress. Head/Face: Normocephalic, atraumatic. Chest/axilla: Normal chest wall appearance and motion. Nontender with no deformity. No lesions are appreciated. Cardiovascular: Regular rate and rhythm with a normal S1 and S2. No gallops, murmurs, or rubs. Normal PMI, no JVD. No pulse deficits. Respiratory: Lungs have equal breath sounds bilaterally, clear to auscultation and percussion. No rales, rhonchi or wheezes noted. No increased work of breathing, no retractions or nasal flaring. Abdomen/GI: Soft, non-tender, with normal bowel sounds. No distension or tympany. No guarding or rebound. No evidence of tenderness throughout. Back: No spinal tenderness. No costovertebral tenderness. Full range of motion. MS/ Extremity: Pulses equal, no cyanosis. Neurovascular intact. Full, normal range of motion. Neuro: Awake and alert, GCS 15, oriented to person, place, time, and situation. Cranial nerves II-XII grossly intact. Motor strength 5/5 in all extremities. Sensory grossly intact. Cerebellar exam normal. Normal gait. Vital Signs: 04/14 20:36 BP 139 / 86; Pulse 89; Resp 16 S; Temp 98.0; Pulse Ox 98% on R/A; Weight 104.33 kg; iw Height 5 ft. 4 in. (162.56 cm); Pain 10/10; 21:00 BP 127 / 88; Pulse 83; Resp 18; Temp 98.0; Pulse Ox 100% on R/A; Pain 0/10; ak1 20:36 Body Mass Index 39.48 (104.33 kg, 162.56 cm) iw MDM: 20:50 Patient medically screened. tw4 04/15 05:15 Differential diagnosis: hypertensive crisis. Data reviewed: vital signs, nurses notes. tw4 Data interpreted: Pulse oximetry: is not applicable for this patient encounter. Counseling: I had a detailed discussion with the patient and/or guardian regarding: the historical points, exam findings, and any diagnostic results supporting the discharge/admit diagnosis. Special discussion: I discussed with the patient/guardian in detail that at this point there is no indication for admission to the hospital. It is understood, however, that if the symptoms persist or worsen the patient needs to return immediately for re-evaluation. ED course: Pt assessed in the ED and repeat BS and BP found to be in acceptable ranges. Administered Medications: No medications were administered Point of Care Testing: Blood Glucose: 04/14 21:00 Blood Glucose: 147 mg/dL; ak1 Ranges: Critical Glucose Levels:Adult <50 mg/dl or >400 mg/dl <40 mg/dl or >180 mg/dl Disposition: 04/14/19 21:37 Discharged to Home. Impression: Hyperglycemia, unspecified, Hypertensive urgency. - Condition is Stable. - Discharge Instructions: Hyperglycemia, Hypertension. - Medication Reconciliation Form, Thank You Letter, Antibiotic Education, Prescription Opioid Use form. - Follow up: Private Physician; When: Upon discharge from the Emergency Department; Reason: If symptoms return, Recheck today's complaints, Continuance of care. - Problem is new. - Symptoms have improved. Signatures: Eunice Pichardo RN RN iw Merlyn Kma RN RN ak1 Korey Roldan MD MD tw4 Corrections: (The following items were deleted from the chart) 21:43 21:37 04/14/2019 21:37 Discharged to Home. Impression: Hyperglycemia, unspecified; ak1 Hypertensive urgency. Condition is Stable. Forms are Medication Reconciliation Form, Thank You Letter, Antibiotic Education, Prescription Opioid Use. Follow up: Private Physician; When: Upon discharge from the Emergency Department; Reason: If symptoms return, Recheck today's complaints, Continuance of care. Problem is new. Symptoms have improved. tw4
== END 2019-04-14 21:43 | disposition home or self-care (01) ==
LOC: ER 20:15
DX: I16.0 Hypertensive urgency (principal); E11.65 Type 2 diabetes mellitus with hyperglycemia; E78.00 Pure hypercholesterolemia, unspecified; Z88.6 Allergy status to analgesic agent
CPT/HCPCS: 82962; 99283

== ENCOUNTER 2019-04-17 09:28 | Emergency (ER) | payer OTHER ==
--- OUTSIDE RECORDS SUMMARY | 2019-04-17 09:32 | XMS REPORT | Clinical Summary ---
:1985 Author Organization [facility] Address [address] [place] [address] Care Team Providers Name Role Phone Cm [...] a day. Take 1 tablet 0 Active vit,[id number] by mouth daily. olic 29 mg iron- [...] MD , first trimester (Primary Dx) after 04/16/2018 Immunizations Name Dates Previously Given Next Due [...] Taken Blood Pressure 139/84 11/10/2018 3:44 PM PRINTING SPECIALIST Pulse 95 11/10/2018 3:44 PM PRINTING SPECIALIST Temperature 36.7 C (98 F) 11/10/2018 3:44 PM PRINTING SPECIALIST Respiratory Rate 20 11/10/2018 3:44 PM PRINTING SPECIALIST Oxygen Saturation 100% 11/10/2018 3:44 PM PRINTING SPECIALIST Inhaled Oxygen Concentration - - Weight - - Height 162.6 cm (5' 4") 11/10/2018 3:41 PM PRINTING SPECIALIST Body Mass Index - - Plan of Treatment Health Maintenance Due Date Last Done Comments INFLUENZA VACCINE 06/27/2019 01/09/2018 Procedures Procedure Name Priority Date/Time Associated Comments Diagnosis US STAT 11/10/2018 7:27 Results for this TRANSVAGINAL PM PRINTING SPECIALIST procedure are in the results section. US SINGLE STAT 11/10/2018 7:20 Results for this LESS THAN 14 WEEKS PM PRINTING SPECIALIST procedure are in the results section. ESTIMATED GFR STAT 11/10/2018 5:20 Results for this PM PRINTING SPECIALIST procedure are in the results section. RH TYPE STAT 11/10/2018 5:20 Results for this PM PRINTING SPECIALIST procedure are in the results section. HCG QUANTITATIVE, STAT 11/10/2018 5:20 Results for this SERUM PM PRINTING SPECIALIST procedure are in the results section. URINALYSIS SCREEN AND STAT 11/10/2018 5:20 Results for this MICROSCOPY, WITH PM PRINTING SPECIALIST procedure are in REFLEX TO CULTURE the results section. COMPREHENSIVE STAT 11/10/2018 5:20 Results for this METABOLIC PANEL PM PRINTING SPECIALIST procedure are in the results section. HC COMPLETE BLD COUNT STAT 11/10/2018 5:20 Results for this W/AUTO DIFF PM PRINTING SPECIALIST procedure are in the results section. URINE CULTURE STAT 11/10/2018 5:15 Results for this PM PRINTING SPECIALIST procedure are in the results section. after 04/16/2018 Results US Transvaginal (11/10/2018 7:27 PM PRINTING SPECIALIST) Specimen Narrative Performed At EXAM: US TRANSVAGINAL, US SINGLE LESS THAN 14 WEEKS [facility] CLINICAL INDICATIONS:vaginal spotting TECHNIQUE: Pelvic ultrasound [...] No free fluid seen in the pelvis. [id number] Procedure Note [facility], Radiology Results Incoming - 11/10/2018 8:06 PM PRINTING SPECIALIST EXAM: US TRANSVAGINAL, US SINGLE LESS THAN [...] No free fluid seen in the pelvis. [id number] Performing Organization Address City/State/Zipcode Phone Number [facility] [address] [place] [address] US Single Less Than 14 Weeks (11/10/2018 7:20 PM PRINTING SPECIALIST) Specimen Narrative Performed At EXAM: US TRANSVAGINAL, US SINGLE LESS THAN 14 WEEKS [facility] CLINICAL INDICATIONS:vaginal spotting TECHNIQUE: Pelvic ultrasound [...] No free fluid seen in the pelvis. [id number] Procedure Note Interface, Radiology Results Incoming - 11/10/2018 8:06 PM PRINTING SPECIALIST EXAM: US TRANSVAGINAL, US SINGLE LESS THAN [...] No free fluid seen in the pelvis. [id number] Performing Organization Address City/State/Zipcode Phone Number [facility] [address] [place] [address] Urinalysis screen and microscopy, with reflex to culture (11/10/2018 5:20 PM PRINTING SPECIALIST) Specimen site Clean catch [facility] Color, UA Yellow [facility] Appearance, UA Clear [facility] Specific gravity, UA 1.012 1.001 - 1.030 [facility] pH, UA 5.0 5.0 - 9.0 [facility] Protein, UA Negative Negative [facility] Glucose, UA Negative Negative [facility] Ketones, UA 1+ (A) Negative [facility] Bilirubin, UA Negative Negative [facility] Blood, UA Moderate (A) Negative [facility] Nitrite, UA Negative Negative [facility] Urobilinogen, UA <2.0 <2.0 E.U./dL [facility] Leukocyte esterase, Negative Negative [facility] Epithelial cells, UA <1 /HPF [facility] Round epithelial <1 0 - 5 /HPF [facility] cells, UA [facility] WBC, UA 1 0 - 4 /HPF [facility] RBC, UA 6 (H) 0 - 5 /HPF [facility] Bacteria, UA None seen None seen [facility] Yeast, UA None seen [facility] Yeast with None seen [facility] pseudohyphae, [facility] Specimen Urine Performing Organization Address City/[facility] Hospital[facility] Phone Number [facility] DEPARTMENT OF PATHOLOGY [address] [place] [address] Estimated GFR (11/10/2018 5:20 PM PRINTING SPECIALIST) Estimated GFR >=90 mL/min/1.73 [facility] Comment: [address]oryUn[facility] G1 >=90 Normal or high G2 60-89Mildly decreased [id number] to moderately decreased [id number] to severely decreased G4 15-29Severely decreased G5 <15Kidney failure The eGFR was calculated using the Chronic Kidney Disease Epidemiology Collaboration (CKD-EPI) equation. Interpretation is based on recommendations of the National Kidney Foundation-Kidney Disease Outcomes Quality Initiative (NKF-KDOQI) published in 2014. Specimen Plasma specimen Performing Organization Address City/[facility]/Zipcode Phone Number [facility] DEPARTMENT OF PATHOLOGY [address] [place] [address] [place] [address] HOSPITAL RH type (11/10/2018 5:20 PM PRINTING SPECIALIST) Rh type POS [facility] Specimen Blood Performing Organization Address City/[facility]/Zipcode Phone Number [facility] DEPARTMENT OF PATHOLOGY [address] [place] [address] AND [facility] [id number] [place] [address] CBC with platelet and differential (11/10/2018 5:20 PM PRINTING SPECIALIST) WBC 13.5 (H) 4.5 - 11.0 k/uL [facility] RBC 4.27 4.20 - 5.50 [facility] m/uL [facility] HGB 13.6 12.0 - 16.0 [facility] g/dL [facility] HCT 41.1 37.0 - 47.0 % [facility] MCV 96.3 82.0 - 100.0 fL [facility] MCH 31.9 27.0 - 34.0 pg [facility] MCHC 33.1 31.0 - 37.0 [facility] g/dL [facility] RDW - SD 46.3 37.0 - 55.0 fL [facility] MPV 11.0 6.9 - 11.0 fL [facility] Platelet count 357 150 - 400 K/uL [facility] Nucleated RBC 0.00 /100 WBC [facility] Neutrophils 61.0 39.0 - 69.0 % [facility] Lymphocytes 33.7 25.0 - 45.0 % [facility] Monocytes 4.1 0.0 - 10.0 % [facility] Eosinophils 0.5 0.0 - 5.0 % [facility] Basophils 0.3 0.0 - 1.0 % [facility] Immature granulocytes 0.4 0.0 - 1.0 % [facility] Specimen Blood Performing Organization Address City/State/Zipcode Phone Number [facility] DEPARTMENT OF PATHOLOGY [address] [place] [address] AND [facility] [address] hCG quantitative, serum (11/10/2018 5:20 PM PRINTING SPECIALIST) hCG quantitative, 34 (H) 0 - 5 mIU/mL [facility] serum Comment: [place] Reference range for HCG Quant applies to males and non- HOSPITAL females. Post Menopausal 0.0 - 8.1 mIU/mL Specimen Blood Performing Organization Address City/State/Zipcode Phone Number [facility] DEPARTMENT OF PATHOLOGY [id number] [place] [address] Comprehensive metabolic panel (11/10/2018 5:20 PM PRINTING SPECIALIST) Sodium 137 135 - 148 mEq/L [facility] Potassium 3.8 3.5 - 5.0 mEq/L [facility] Chloride 98 98 - 112 mEq/L [facility] CO2 24 24 - 31 mEq/L [facility] Anion gap 15@ANIO 7 - 15 mEq/L [facility] BUN 9 6 - 20 mg/dL [facility] Creatinine 0.54 0.50 - 0.90 [facility] mg/dL [facility] Glucose 100 (H) 65 - 99 mg/dL [facility] Calcium 9.9 8.3 - 10.2 mg/dL [facility] Protein 8.4 (H) 6.3 - 8.3 g/dL [facility] Albumin 4.8 3.5 - 5.0 g/dL [facility] A/G ratio 1.3 0.7 - 3.8 [facility] Alkaline phosphatase 70 35 - 104 U/L [facility] AST 18 10 - 35 U/L [facility] ALT 23 5 - 50 U/L [facility] Total bilirubin 0.4 0.2 - 1.2 mg/dL [facility] Specimen Plasma specimen Performing Organization Address City/State/Zipcode Phone Number [facility] DEPARTMENT OF PATHOLOGY [id number] [place] [address] Urine culture (11/10/2018 5:15 PM PRINTING SPECIALIST) Urine culture SEE COMMENTComment: [facility] Bacteriuria screen [facility] negative. Specimen Performing Organization Address City/[facility]/Zipcode Phone Number [facility] DEPARTMENT OF PATHOLOGY [address] [place], [place] [address] AND [facility] [employer] SERGIO ALLEN [place] [address] [facility] [place] [address] HOSPITAL after 04/16/2018 Insurance Payer Benefit Plan / Subscriber ID Effective Dates Phone Address Type Group MISC MEDICARE MIS MEDICARE xxxxxxxxxxx 2018-Present HMO REPLACEMENT REPLACEMENT [facility] xxxxxxxxx 2017-Presen HMO [place] t Advance Directives Patient has advance care planning documents on file. For more information, please contact:Sergio Allen[address] [place] [address]
--- OUTSIDE RECORDS SUMMARY | 2019-04-17 09:32 | XMS REPORT ---
:1985 [facility] Address [address] [place] [address] [address] Care Team Providers Name Role Phone Unavailable [...]
[2019-04-17] MEDS ORDERED: LORAZEPAM 0.5 MG TABLET ONE (11:05)
[2019-04-17 11:17] LABS: Absolute Lymphocytes (CBC) 2.8 K/uL (0.7-4.9); Absolute Monocytes 0.6 K/uL (0.1-1.3); Absolute Neutrophil 5.6 K/uL (1.8-8.0); Basophils % 0.2 % (0-1.3); Eosinophils % 0.4 % (0-4.4); Hematocrit 39.9 % (36.0-45.0); Lymphocytes % 30.9 % (15.3-44.8); MPV 8.6 fL (7.6-11.3); Monocytes % 6.3 % (3.3-12.3); RBC Red Blood Cell Count 4.09 M/uL (3.86-4.86)
[2019-04-17 11:23] LABS: ALT/SGPT 20 U/L (12-78); AST/SGOT 7 U/L (15-37); Albumin 3.7 g/dL (3.4-5.0); Alkaline Phosphatase 62 U/L (45-117); BUN Blood Urea Nitrogen 10 mg/dL (7-18); Bicarbonate 28 mmol/L (21-32); Bilirubin Direct 0.2 mg/dL (0-0.2); Bilirubin Total 0.6 mg/dL (0.2-1.0); Glucose Level 123 mg/dL (74-106); Lipase 128 U/L (73-393); Potassium 3.9 mmol/L (3.5-5.1); Protein, Total 7.7 g/dL (6.4-8.2); Sodium Level 139 mmol/L (136-145)
[2019-04-17 11:34] LABS: Urine Blood TRACE (NEG); Urine Glucose TRACE (NEG); Urine Protein NEGATIVE (NEG); Urine pH 5.5 (5.0-7.0)
--- NOTE | 2019-04-17 12:35 | RAD REPORT ---
EXAM DESCRIPTION: CT - Abdomen Pelvis W Contrast - 04/17/2019 12:16 pm CLINICAL HISTORY: Abdominal pain, right upper quadrant pain COMPARISON: CT study May 2018 TECHNIQUE: Biphasic, helical CT imaging of the abdomen and pelvis was performed following 100 ml non -ionic IV contrast. No oral contrast administered. All CT scans are performed using dose optimization technique as appropriate and may include automated exposure control or mA/KV adjustment according to patient size. FINDINGS: No suspicious findings in the lung bases. No pericardial thickening or effusion. The liver, spleen, and pancreas show no suspicious findings. Cholecystectomy clips are present with n o biliary tree dilatation. Symmetric renal function is seen with no hydronephrosis or suspicious renal mass. No pyelonephritis o r acute parenchymal process. Slight fullness of each renal pelvis is a normal variant similar to prio r imaging. No urinary bladder abnormality. No adrenal abnormalities. Normal size uterus seen with no suspicious finding. Right ovary is unremarkable. Left ovary contains a 3.5 centimeter cysts. No suspicious characteristics. No dilated bowel loops or bowel wall thickening. Appendix is normal. No active or acute GI process se en. Patient has minimal diverticulosis in the sigmoid colon. No free air, free fluid or inflammatory stranding. No hernia, mass or bulky lymphadenopathy. No suspicious bony findings. IMPRESSION: Contrast enhanced CT abdomen and pelvis showing no emergent finding. No abnormality to explain right upper quadrant pain. Nonacute findings are detailed in the body of the report.
--- NOTE | 2019-04-17 12:39 | EDPHYS ---
Physician Documentation [facility] Name: Mckenna Haney Age: 34 yrs Sex: Female : 1985 Arrival Date: 04/17/2019 Time: 09:31 Bed 5 Private MD: ED Physician Prince Weber HPI: 04/17 10:52 This 34 yrs old Female presents to ER via Ambulatory with complaints of kb Abdominal Pain. 10:52 The patient presents with abdominal pain in the right upper quadrant, right lower kb quadrant. Onset: The symptoms/episode began/occurred 4 day(s) ago. The symptoms do not radiate. Associated signs and symptoms: none. The symptoms are described as constant. Modifying factors: The symptoms are alleviated by nothing, the symptoms are aggravated by nothing. Severity of pain: At its worst the pain was mild moderate in the emergency department the pain is unchanged. The patient has not experienced similar symptoms in the past. The patient has not recently seen a physician. Pt reports abd pain for 4 days. Denies any other symptoms. 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 - Social history:: Smoking status: Patient/guardian denies using tobacco. - Ebola Screening: : No symptoms or risks identified at this time. ROS: 11:30 Constitutional: Negative for fever, chills, and weight loss, Cardiovascular: Negative kb for chest pain, palpitations, and edema, Respiratory: Negative for shortness of breath, cough, wheezing, and pleuritic chest pain, Back: Negative for injury and pain, : Negative for injury, bleeding, discharge, and swelling, MS/Extremity: Negative for injury and deformity, Skin: Negative for injury, rash, and discoloration, Neuro: Negative for headache, weakness, numbness, tingling, and seizure. 11:30 Abdomen/GI: Positive for abdominal pain, Negative for nausea, vomiting, and diarrhea, constipation. Exam: 11:30 Constitutional: This is a well developed, well nourished patient who is awake, alert, kb and in no acute distress. Head/Face: Normocephalic, atraumatic. Chest/axilla: Normal chest wall appearance and motion. Nontender with no deformity. No lesions are appreciated. Cardiovascular: Regular rate and rhythm with a normal S1 and S2. No gallops, murmurs, or rubs. Normal PMI, no JVD. No pulse deficits. Respiratory: Lungs have equal breath sounds bilaterally, clear to auscultation and percussion. No rales, rhonchi or wheezes noted. No increased work of breathing, no retractions or nasal flaring. Skin: Warm, dry with normal turgor. Normal color with no rashes, no lesions, and no evidence of cellulitis. MS/ Extremity: Pulses equal, no cyanosis. Neurovascular intact. Full, normal range of motion. Neuro: Awake and alert, GCS 15, oriented to person, place, time, and situation. Cranial nerves II-XII grossly intact. Motor strength 5/5 in all extremities. Sensory grossly intact. Cerebellar exam normal. Normal gait. 11:30 Abdomen/GI: Inspection: abdomen appears normal, Bowel sounds: normal, in all quadrants, Palpation: soft, in all quadrants, moderate abdominal tenderness, in the right upper quadrant and right lower quadrant. Vital Signs: 09:42 BP 149 / 105; Pulse 85; Resp 18; Temp 97.9; Pulse Ox 100% on R/A; Weight 99.79 kg; ph Height 5 ft. 4 in. (162.56 cm); Pain 10/10; 10:48 BP 137 / 98; Pulse 81; Resp 18; Pulse Ox 99% on R/A; ph 09:42 Body Mass Index 37.76 (99.79 kg, 162.56 cm) ph MDM: 09:36 Patient medically screened. kb 11:30 Data reviewed: vital signs, nurses notes. Data interpreted: Pulse oximetry: on room air kb is 99 %. Interpretation: normal. 12:37 Counseling: I had a detailed discussion with the patient and/or guardian regarding: the kb historical points, exam findings, and any diagnostic results supporting the discharge/admit diagnosis, lab results, radiology results, the need for outpatient follow up, a family practitioner, to return to the emergency department if symptoms worsen or persist or if there are any questions or concerns that arise at home. 04/17 10:07 Order name: Basic Metabolic Panel; Complete Time: 11:24 kb 04/17 10:07 Order name: CBC with Diff; Complete Time: 11:23 kb 04/17 10:07 Order name: Hepatic Function; Complete Time: 11:24 kb 04/17 10:07 Order name: Lipase; Complete Time: 11:24 kb 04/17 10:08 Order name: Urine Dipstick--Ancillary (enter results); Complete Time: 11:37 em1 04/17 10:08 Order name: Urine --Ancillary (enter results); Complete Time: 11:37 em1 04/17 10:07 Order name: Labs collected and sent; Complete Time: 10:46 kb 04/17 11:25 Order name: CT Abd/Pelvis - W/Contrast; Complete Time: 12:37 kb Administered Medications: 10:53 Drug: Ativan 0.5 mg Route: PO; ph Disposition: 16:05 Co-signature as Attending Physician, Prince Weber MD. rn Disposition: 04/17/19 12:38 Discharged to Home. Impression: Generalized abdominal pain. - Condition is Stable. - Discharge Instructions: Abdominal Pain, Adult, [id number]. - Medication Reconciliation Form, Thank You Letter, Antibiotic Education, Prescription Opioid Use form. - Follow up: Emergency Department; When: As needed; Reason: Worsening of condition. Follow up: Private Physician; When: 2 - 3 days; Reason: Recheck today's complaints, Continuance of care, Re-evaluation by your physician. Signatures: Dispatcher [employer] Clair Healy, RADIO SALES ACCOUNT EXECUTIVE-C RADIO SALES ACCOUNT EXECUTIVE-Prince Schmitt MD MD rn Hall, Patricia, RN RN Domitila Buckley RN RN Corrections: (The following items were deleted from the chart) 13:10 12:38 04/17/2019 12:38 Discharged to Home. Impression: Generalized abdominal pain. hb Condition is Stable. Forms are Medication Reconciliation Form, Thank You Letter, Antibiotic Education, Prescription Opioid Use. Follow up: Emergency Department; When: As needed; Reason: Worsening of condition. Follow up: Private Physician; When: 2 - 3 days; Reason: Recheck today's complaints, Continuance of care, Re-evaluation by your physician. kb
--- NOTE | 2019-04-17 12:39 | ER ---
Nurse's Notes [facility] Name: Mckenna Haney Age: 34 yrs Sex: Female : 1985 Arrival Date: 04/17/2019 Time: 09:31 Bed 5 Private MD: Diagnosis: Generalized abdominal pain Presentation: 04/17 09:40 Presenting complaint: Patient states: RUQ, dizziness, headache, and "a little" SOB x ph 3-4 days, denies N/V/D or fever. Transition of care: patient was not received from another setting of care. Onset of symptoms was April 17, 2019. Risk Assessment: Do you want to hurt yourself or someone else? Patient reports no desire to harm self or others. Initial Sepsis Screen: Does the patient meet any 2 criteria? No. Patient's initial sepsis screen is negative. Does the patient have a suspected source of infection? No. Patient's initial sepsis screen is negative. Care prior to arrival: None. 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 - Social history:: Smoking status: Patient/guardian denies using tobacco. - Ebola Screening: : No symptoms or risks identified at this time. Screenin:48 Abuse screen: Denies threats or abuse. Denies injuries from another. Nutritional ph screening: No deficits noted. Tuberculosis screening: No symptoms or risk factors identified. Fall Risk None identified. Assessment: 09:49 General: Appears in no apparent distress. comfortable, obese, well groomed, Behavior is ph calm, cooperative, appropriate for age, Denies fever. Pain: Complains of pain in right upper quadrant Pain radiates to back Pain currently is 10 out of 10 on a pain scale. Neuro: Level of Consciousness is awake, alert, obeys commands, Oriented to person, place, time, situation, Reports dizziness, headache Denies weakness blurred vision. Cardiovascular: Reports lightheadedness, shortness of breath, Denies chest pain, nausea, palpitations, vomiting, Capillary refill < 3 seconds in bilateral fingers Patient's skin is warm and dry. Respiratory: Airway is patent Respiratory effort is even, unlabored, Respiratory pattern is regular, symmetrical. GI: Abdomen is non-distended, obese, Bowel sounds present X 4 quads. Abd is soft X 4 quads Reports upper abdominal pain, Patient currently denies diarrhea, nausea, vomiting. Derm: Skin is intact, Skin is pink, warm \\T\\ dry. Musculoskeletal: Circulation, motion, and sensation intact. Range of motion: intact in all extremities. 10:46 Reassessment: Patient appears in no apparent distress at this time. Patient and/or ph family updated on plan of care and expected duration. Pain level reassessed. Patient is alert, oriented x 3, equal unlabored respirations, skin warm/dry/pink. Pt requesting medication for anxiety, states, " Do you think I can have anything for my nerves? I have been feeling really stressed out lately.". Vital Signs: 09:42 BP 149 / 105; Pulse 85; Resp 18; Temp 97.9; Pulse Ox 100% on R/A; Weight 99.79 kg; ph Height 5 ft. 4 in. (162.56 cm); Pain 10/10; 10:48 BP 137 / 98; Pulse 81; Resp 18; Pulse Ox 99% on R/A; ph 09:42 Body Mass Index 37.76 (99.79 kg, 162.56 cm) ph ED Course: 09:31 Patient arrived in ED. mr 09:36 Clair [facility]C [facility] kb 09:36 Prince Weber MD is Attending Physician. kb 09:40 Tawnya Ventura, MARIN is Primary Nurse. ph 09:41 Triage completed. ph 09:46 Arm band placed on. ph 09:48 Patient has correct armband on for positive identification. Placed in gown. Bed in low ph position. Call light in reach. Side rails up X 1. Pulse ox on. NIBP on. Warm blanket given. 10:47 Initial lab(s) drawn, by me, sent to lab. Missed attempt(s): 20 gauge in right ph antecubital area. Bleeding controlled, band aid applied, catheter tip intact. 12:11 Inserted saline lock: 22 gauge in left antecubital area, using aseptic technique. ph 12:16 CT completed. Patient tolerated procedure well. Patient moved to CT via wheelchair. Patient moved back from CT. 12:16 CT Abd/Pelvis - W/Contrast In Process Unspecified. EDMS Administered Medications: 10:53 Drug: Ativan 0.5 mg Route: PO; ph Outcome: 12:38 Discharge ordered by . kb 13:10 Patient left the ED. hb Signatures: Dispatcher [employer] EDMS Clair Tadeo, ROBBI ANDREWSP-Graciela Mckinney Susan Tawnya Ventura RN RN Domitila Banks, MARIN RN hb
== END 2019-04-17 13:10 | disposition home or self-care (01) ==
LOC: ER 09:28
DX: R10.84 Generalized abdominal pain (principal); I10 Essential (primary) hypertension; E78.00 Pure hypercholesterolemia, unspecified; E11.9 Type 2 diabetes mellitus without complications; Z88.6 Allergy status to analgesic agent
CPT/HCPCS: 85025; 80048; 36415; 81025; 80076; 81003; 83690; 74177; Q9967; 99284

== ENCOUNTER 2019-04-25 09:16 | Emergency (ER) | payer OTHER ==
[2019-04-25 10:00] LABS: Urine Blood 2+ (NEG); Urine Glucose NEGATIVE (NEG); Urine Protein NEGATIVE (NEG); Urine Specific Gravity 1.025 (1.005-1.030)
[2019-04-25 10:00] LABS: Absolute Lymphocytes (CBC) 2.4 K/uL (0.7-4.9); Absolute Monocytes 0.5 K/uL (0.1-1.3); Absolute Neutrophil 6.1 K/uL (1.8-8.0); Basophils % 0.4 % (0-1.3); Hematocrit 39.2 % (36.0-45.0); Lymphocytes % 26.1 % (15.3-44.8); MPV 8.7 fL (7.6-11.3); Monocytes % 5.5 % (3.3-12.3); RBC Red Blood Cell Count 3.95 M/uL (3.86-4.86)
[2019-04-25 10:05] LABS: Urine Bacteria <20 /HPF (<20); Urine Culture Reflex Order NOT NEEDED; Urine RBC >50 /HPF (NONE SEEN)
[2019-04-25 10:17] LABS: ALT/SGPT 24 U/L (12-78); AST/SGOT 9 U/L (15-37); Albumin 3.7 g/dL (3.4-5.0); Alkaline Phosphatase 68 U/L (45-117); BUN Blood Urea Nitrogen 14 mg/dL (7-18); Bicarbonate 27 mmol/L (21-32); Bilirubin Direct 0.2 mg/dL (0-0.2); Bilirubin Total 0.5 mg/dL (0.2-1.0); Glucose Level 104 mg/dL (74-106); Lipase 172 U/L (73-393); Potassium 3.8 mmol/L (3.5-5.1); Protein, Total 7.6 g/dL (6.4-8.2); Sodium Level 139 mmol/L (136-145)
--- NOTE | 2019-04-25 11:26 | EDPHYS ---
Physician Documentation [facility] Name: Mckenna Haney Age: 34 yrs Sex: Female : 1985 Arrival Date: 04/25/2019 Time: 09:19 Bed 20 Private MD: Out, [facility] ED Physician David Gabriel HPI: 04/25 09:35 This 34 yrs old Female presents to ER via Ambulatory with complaints of cp Infection. 09:35 The patient presents with vaginal bleeding that is light, vaginal itching. Onset: The cp symptoms/episode began/occurred 4 day(s) ago. 09:35 Associated signs and symptoms: Pertinent positives: dysuria, vaginal bleeding, cp Pertinent negatives: constipation, diarrhea, fever, vomiting. Severity of symptoms: in the emergency department the symptoms are unchanged, despite home interventions. 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 - Social history:: Smoking status: Patient/guardian denies using tobacco, Patient/guardian denies using alcohol. - Ebola Screening: : Patient negative for fever greater than or equal to 101.5 degrees Fahrenheit, and additional compatible Ebola Virus Disease symptoms Patient denies exposure to infectious person Patient denies travel to an Ebola-affected area in the 21 days before illness onset. ROS: 09:40 Constitutional: Negative for body aches, chills, fever, poor PO intake. cp 09:40 Eyes: Negative for injury, pain, redness, and discharge. cp 09:40 ENT: Negative for drainage from ear(s), ear pain, sore throat, difficulty swallowing, difficulty handling secretions. 09:40 Cardiovascular: Negative for chest pain, palpitations. 09:40 Respiratory: Negative for cough, shortness of breath, wheezing. 09:40 Abdomen/GI: Positive for abdominal pain, Negative for nausea, vomiting, and diarrhea, black/tarry stool, rectal bleeding. 09:40 Back: Negative for pain at rest, pain with movement, radiated pain. 09:40 : Positive for burning with urination, vaginal bleeding, vaginal itching. 09:40 Skin: Negative for rash. 09:40 All other systems are negative. Exam: 10:45 Constitutional: The patient appears in no acute distress, alert, awake, non-toxic, well cp developed, well nourished. 10:45 Head/Face: Normocephalic, atraumatic. cp 10:45 Eyes: Periorbital structures: appear normal, Conjunctiva: normal, no exudate, no injection, Sclera: no appreciated abnormality, Lids and lashes: appear normal, bilaterally. 10:45 ENT: External ear(s): are unremarkable, Nose: is normal, Mouth: Lips: moist, Oral mucosa: pink and intact, moist, Posterior pharynx: is normal, airway is patent, no erythema, no exudate. 10:45 Chest/axilla: Inspection: normal, Palpation: is normal, no crepitus, no tenderness. 10:45 Cardiovascular: Rate: normal, Rhythm: regular. 10:45 Respiratory: the patient does not display signs of respiratory distress, Respirations: normal, no use of accessory muscles, no retractions, no splinting, no tachypnea, labored breathing, is not present, Breath sounds: are clear throughout, no decreased breath sounds, no stridor, no wheezing. 10:45 Abdomen/GI: Inspection: abdomen appears normal, Bowel sounds: active, all quadrants, Palpation: soft, in all quadrants, mild abdominal tenderness, in the umbilical area, right lower quadrant and left lower quadrant, rebound tenderness, is not appreciated, voluntary guarding, is not appreciated, involuntary guarding, is not appreciated. 10:45 Back: pain, is absent, ROM is normal. 10:45 : Pelvic Exam: External exam: is normal, Speculum exam: mild bleeding, no cervicitis, os that is closed, no tissue in cervix is seen, no tissue in vagina is seen, bimanual exam reveals no cervical motion tenderness, no adnexa tenderness or masses bilaterally, discharge, bloody, the nurse was present for the exam. 10:45 Skin: no rash present. Vital Signs: 09:34 BP 113 / 82; Pulse 77; Resp 18; Temp 98.1(O); Pulse Ox 100% on R/A; Weight 95.25 kg; hj Height 5 ft. 4 in. (162.56 cm); 10:47 BP 118 / 80; Pulse 75; Resp 18; Pulse Ox 100% on R/A; hj 11:23 BP 117 / 78; Pulse 76; Resp 18; Pulse Ox 100% on R/A; hj 09:34 Body Mass Index 36.05 (95.25 kg, 162.56 cm) hj MDM: 09:30 Patient medically screened. cp 11:25 Data reviewed: vital signs, nurses notes, lab test result(s), radiologic studies, cp ultrasound. 11:25 Counseling: I had a detailed discussion with the patient and/or guardian regarding: the cp historical points, exam findings, and any diagnostic results supporting the discharge/admit diagnosis, lab results, radiology results, the need for outpatient follow up, an OB/Gyne specialist, to return to the emergency department if symptoms worsen or persist or if there are any questions or concerns that arise at home. ED course: VSS. Discussed results of labs and US. Patient has no concerns for an STD at this time. Will discharge to home for continued monitoring. 04/25 09:30 Order name: Urine Microscopic Only; Complete Time: 10:25 04/25 10:25 Interpretation: Normal except: URBC >50. 04/25 09:37 Order name: Basic Metabolic Panel; Complete Time: 10:25 cp 04/25 09:37 Order name: CBC with Diff; Complete Time: 10:05 04/25 09:37 Order name: Creatinine for Radiology; Complete Time: 10:25 cp 04/25 09:37 Order name: Hepatic Function; Complete Time: 10:25 04/25 10:25 Interpretation: Normal except: AST 9; GLOB 3.9; A/G 0.9. cp 04/25 09:37 Order name: Lipase; Complete Time: 10:25 04/25 10:26 Interpretation: Reviewed. 04/25 09:30 Order name: Urine Dipstick-Ancillary (obtain specimen); Complete Time: 09:59 cp 04/25 09:30 Order name: Urine Test (obtain specimen); Complete Time: 09:59 cp 04/25 09:39 Order name: GC (GONORR/CHLAMYDIA) Probe cp 04/25 09:39 Order name: Wet Prep; Complete Time: 11:05 cp 04/25 11:05 Interpretation: Reviewed. 04/25 09:52 Order name: Urine Dipstick--Ancillary (enter results); Complete Time: 10:05 ms 04/25 10:07 Interpretation: Normal except: UBLD 2+. cp 04/25 09:52 Order name: Urine --Ancillary (enter results); Complete Time: 10:05 ms 04/25 10:41 Order name: US Transvaginal Study (Probe) 04/25 09:37 Order name: IV Saline Lock; Complete Time: 09:59 cp 04/25 09:37 Order name: Labs collected and sent; Complete Time: 09:59 cp 04/25 09:39 Order name: Pelvic Exam Setup; Complete Time: 10:39 cp Administered Medications: No medications were administered Disposition: 13:07 Co-signature as Attending Physician, David Gabriel MD I agree with the assessment and kdr plan of care. Disposition: 04/25/19 11:25 Discharged to Home. Impression: Unspecified ovarian cysts - left, Abnormal uterine and vaginal bleeding, unspecified. - Condition is Stable. - Discharge Instructions: Abnormal Uterine Bleeding, Ovarian Cyst. - Medication Reconciliation Form, Thank You Letter, Antibiotic Education, Prescription Opioid Use form. - Follow up: Private Physician; When: 1 week; Reason: Recheck today's complaints. - Problem is new. - Symptoms have improved. Signatures: Dispatcher [facility] David Gabriel MD MD kdr Benjamin Evans RN RN Wade Holden PA PA cp Corrections: (The following items were deleted from the chart) 10:42 10:39 Transvaginal Ob+US.RAD.BRZ ordered. [facility] 11:31 11:25 04/25/2019 11:25 Discharged to Home. Impression: Unspecified ovarian cysts - hj left; Abnormal uterine and vaginal bleeding, unspecified. Condition is Stable. Forms are Medication Reconciliation Form, Thank You Letter, Antibiotic Education, Prescription Opioid Use. Follow up: Private Physician; When: 1 week; Reason: Recheck today's complaints. Problem is new. Symptoms have improved. cp
--- NOTE | 2019-04-25 11:26 | ER ---
Nurse's Notes [facility] Name: Mckenna Haney Age: 34 yrs Sex: Female : 1985 Arrival Date: 04/25/2019 Time: 09:19 Bed 20 Private MD: Out, [facility] Diagnosis: Unspecified ovarian cysts-left;Abnormal uterine and vaginal bleeding, unspecified Presentation: 04/25 09:32 Presenting complaint: Patient states: i have this vaginal itching for 4 days now and hj pain especially when i pee, it lund; denies fever and chills;. Transition of care: patient was not received from another setting of care. Onset of symptoms was April 25, 2019. Risk Assessment: Do you want to hurt yourself or someone else? Patient reports no desire to harm self or others. Initial Sepsis Screen: Does the patient meet any 2 criteria? No. Patient's initial sepsis screen is negative. Does the patient have a suspected source of infection? No. Patient's initial sepsis screen is negative. Care prior to arrival: None. 09:32 Method Of Arrival: Ambulatory 09:32 Acuity: LILO 4 hj Triage Assessment: 09:35 General: Appears in no apparent distress. uncomfortable, obese, Behavior is calm, hj cooperative, appropriate for age. Pain: Complains of pain in vagina. 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 - Social history:: Smoking status: Patient/guardian denies using tobacco, Patient/guardian denies using alcohol. - Ebola Screening: : Patient negative for fever greater than or equal to 101.5 degrees Fahrenheit, and additional compatible Ebola Virus Disease symptoms Patient denies exposure to infectious person Patient denies travel to an Ebola-affected area in the 21 days before illness onset. Screenin:35 Abuse screen: Denies threats or abuse. Denies injuries from another. Nutritional hj screening: No deficits noted. Tuberculosis screening: No symptoms or risk factors identified. Fall Risk None identified. Assessment: 09:36 General: Appears in no apparent distress. uncomfortable, obese, Behavior is calm, hj cooperative, appropriate for age. Pain: Complains of pain in vagina. Neuro: Level of Consciousness is awake, alert, obeys commands, Oriented to person, place, time, situation, Appropriate for age. Cardiovascular: Capillary refill < 3 seconds Patient's skin is warm and dry. Respiratory: Airway is patent Respiratory effort is even, unlabored, Respiratory pattern is regular, symmetrical. GI: No signs and/or symptoms were reported involving the gastrointestinal system. : Reports burning with urination. EENT: No signs and/or symptoms were reported regarding the EENT system. Derm: No signs and/or symptoms reported regarding the dermatologic system. Musculoskeletal: No signs and/or symptoms reported regarding the musculoskeletal system. 10:30 Reassessment: Patient and/or family updated on plan of care and expected duration. Pain hj level reassessed. Patient is alert, oriented x 3, equal unlabored respirations, skin warm/dry/pink. provider in room with a female RN for pelvic exam;. 11:01 Reassessment: wheeled to US;. 11:22 Reassessment: provider in room for POC;. hj Vital Signs: 09:34 BP 113 / 82; Pulse 77; Resp 18; Temp 98.1(O); Pulse Ox 100% on R/A; Weight 95.25 kg; hj Height 5 ft. 4 in. (162.56 cm); 10:47 BP 118 / 80; Pulse 75; Resp 18; Pulse Ox 100% on R/A; hj 11:23 BP 117 / 78; Pulse 76; Resp 18; Pulse Ox 100% on R/A; hj 09:34 Body Mass Index 36.05 (95.25 kg, 162.56 cm) ED Course: 09:19 Patient arrived in ED. mr 09:19 Out, of Town is Private Physician. mr 09:25 Wade Leiva PA is PHCP. cp 09:25 David Gabriel MD is Attending Physician. cp 09:32 Benjamin Evans, RN is Primary Nurse. hj 09:33 Triage completed. hj 09:36 Arm band placed on right wrist. hj 09:36 Patient has correct armband on for positive identification. Bed in low position. Call light in reach. Side rails up X 1. 09:50 Initial lab(s) drawn, by me, sent to lab. Inserted saline lock: 22 gauge in right hj antecubital area, using aseptic technique. Blood collected. 10:34 Assist provider with pelvic exam: Set up pelvic tray. Performed by Wade gallardo Specimens sent to lab. Patient tolerated well. 11:22 US Transvaginal Study (Probe) In Process Unspecified. EDMS 11:30 IV discontinued, intact, bleeding controlled, No redness/swelling at site. Pressure hj dressing applied. Administered Medications: No medications were administered Outcome: 11:25 Discharge ordered by MD. cp 11:29 Discharged to home ambulatory. hj 11:29 Condition: stable 11:29 Discharge instructions given to patient, Instructed on discharge instructions, follow up and referral plans. Demonstrated understanding of instructions, follow-up care. 11:31 Patient left the ED. Signatures: Dispatcher [employer] [facility] Graciela Ramirez mr MathurEmily, RN RN aa5 Benjamin Evans, RN RN Wade Holden PA PA cp
--- OUTSIDE RECORDS SUMMARY | 2019-04-25 13:56 | XMS REPORT ---
:1985 [facility] Address [address] [place] [address] [address] Care Team Providers Name Role Phone Unavailable [...]
--- OUTSIDE RECORDS SUMMARY | 2019-04-25 13:56 | XMS REPORT | Clinical Summary ---
:1985 Author Organization [facility] Address [address] [place] [address] Care Team Providers Name Role Phone Cm [...] a day. Take 1 tablet 0 Active vit,[id number] by mouth daily. olic 29 mg iron- [...] MD , first trimester (Primary Dx) after 04/24/2018 Immunizations Name Dates Previously Given Next Due [...] Taken Blood Pressure 139/84 11/10/2018 3:44 PM DATA DELIVERABLES MANAGER Pulse 95 11/10/2018 3:44 PM DATA DELIVERABLES MANAGER Temperature 36.7 C (98 F) 11/10/2018 3:44 PM DATA DELIVERABLES MANAGER Respiratory Rate 20 11/10/2018 3:44 PM DATA DELIVERABLES MANAGER Oxygen Saturation 100% 11/10/2018 3:44 PM DATA DELIVERABLES MANAGER Inhaled Oxygen Concentration - - Weight - - Height 162.6 cm (5' 4") 11/10/2018 3:41 PM DATA DELIVERABLES MANAGER Body Mass Index - - Plan of Treatment Health Maintenance Due Date Last Done Comments INFLUENZA VACCINE 06/27/2019 01/09/2018 Procedures Procedure Name Priority Date/Time Associated Comments Diagnosis US STAT 11/10/2018 7:27 Results for this TRANSVAGINAL PM DATA DELIVERABLES MANAGER procedure are in the results section. US SINGLE STAT 11/10/2018 7:20 Results for this LESS THAN 14 WEEKS PM DATA DELIVERABLES MANAGER procedure are in the results section. ESTIMATED GFR STAT 11/10/2018 5:20 Results for this PM DATA DELIVERABLES MANAGER procedure are in the results section. RH TYPE STAT 11/10/2018 5:20 Results for this PM DATA DELIVERABLES MANAGER procedure are in the results section. HCG QUANTITATIVE, STAT 11/10/2018 5:20 Results for this SERUM PM DATA DELIVERABLES MANAGER procedure are in the results section. URINALYSIS SCREEN AND STAT 11/10/2018 5:20 Results for this MICROSCOPY, WITH PM DATA DELIVERABLES MANAGER procedure are in REFLEX TO CULTURE the results section. COMPREHENSIVE STAT 11/10/2018 5:20 Results for this METABOLIC PANEL PM DATA DELIVERABLES MANAGER procedure are in the results section. HC COMPLETE BLD COUNT STAT 11/10/2018 5:20 Results for this W/AUTO DIFF PM DATA DELIVERABLES MANAGER procedure are in the results section. URINE CULTURE STAT 11/10/2018 5:15 Results for this PM DATA DELIVERABLES MANAGER procedure are in the results section. after 04/24/2018 Results US Transvaginal (11/10/2018 7:27 PM DATA DELIVERABLES MANAGER) Specimen Narrative Performed At EXAM: US TRANSVAGINAL, US SINGLE LESS THAN 14 WEEKS [facility] CLINICAL INDICATIONS:vaginal spotting TECHNIQUE: Pelvic ultrasound [...] No free fluid seen in the pelvis. [facility]-[id number] Procedure Note [facility], Radiology Results Incoming - 11/10/2018 8:06 PM DATA DELIVERABLES MANAGER EXAM: US TRANSVAGINAL, US SINGLE LESS [...] No free fluid seen in the pelvis. [facility]-[id number] Performing Organization Address City/State/Zipcode Phone Number [facility] [address] [place] [address] US Single Less Than 14 Weeks (11/10/2018 7:20 PM DATA DELIVERABLES MANAGER) Specimen Narrative Performed At EXAM: US TRANSVAGINAL, US SINGLE LESS THAN 14 WEEKS [facility] CLINICAL INDICATIONS:vaginal spotting TECHNIQUE: Pelvic ultrasound [...] No free fluid seen in the pelvis. [facility]-[id number] Procedure Note Interface, Radiology Results Incoming - 11/10/2018 8:06 PM DATA DELIVERABLES MANAGER EXAM: US TRANSVAGINAL, US SINGLE LESS [...] No free fluid seen in the pelvis. [facility]-[id number] Performing Organization Address City/State/Zipcode Phone Number [facility] [address] [place] [address] Urinalysis screen and microscopy, with reflex to culture (11/10/2018 5:20 PM DATA DELIVERABLES MANAGER) Specimen site Clean catch [facility] Color, UA Yellow [facility] Appearance, UA Clear [facility] Specific gravity, UA 1.012 1.001 - 1.030 [facility] pH, UA 5.0 5.0 - 9.0 [facility] Protein, UA Negative Negative [facility] Glucose, UA Negative Negative [facility] Ketones, UA 1+ (A) Negative [facility] Bilirubin, UA Negative Negative [facility] Blood, UA Moderate (A) Negative [facility] Nitrite, UA Negative Negative [facility] Urobilinogen, UA <2.0 <2.0 E.U./dL [facility] Leukocyte esterase, Negative Negative [facility] Epithelial cells, UA <1 /HPF [facility] Round epithelial <1 0 - 5 /HPF [facility] cells, UA [facility] WBC, UA 1 0 - 4 /HPF [facility] RBC, UA 6 (H) 0 - 5 /HPF [facility] Bacteria, UA None seen None seen [facility] Yeast, UA None seen [facility] Yeast with None seen [facility] pseudohyphae, [facility] Specimen Urine Performing Organization Address City/[facility] Phone Number [facility] DEPARTMENT OF PATHOLOGY [address] [place] [address] Estimated GFR (11/10/2018 5:20 PM DATA DELIVERABLES MANAGER) Estimated GFR >=90 mL/min/1.73 [facility] Comment: [address] G1 >=90 Normal or high G2 60-89Mildly decreased [id number] to moderately decreased [id number] to severely decreased G4 15-29Severely decreased G5 <15Kidney failure The eGFR was calculated using the Chronic Kidney Disease Epidemiology Collaboration (CKD-EPI) equation. Interpretation is based on recommendations of the National Kidney Foundation-Kidney Disease Outcomes Quality Initiative (NKF-KDOQI) published in 2014. Specimen Plasma specimen Performing Organization Address City/[facility]/Zipcode Phone Number [facility] DEPARTMENT OF PATHOLOGY [address] [place] [address] [place] [address] HOSPITAL RH type (11/10/2018 5:20 PM DATA DELIVERABLES MANAGER) Rh type POS [facility] Specimen Blood Performing Organization Address City/[facility]/Zipcode Phone Number [facility] DEPARTMENT OF PATHOLOGY [address] [place] [address] AND [facility] [id number] [place] [address] CBC with platelet and differential (11/10/2018 5:20 PM DATA DELIVERABLES MANAGER) WBC 13.5 (H) 4.5 - 11.0 k/uL [facility] RBC 4.27 4.20 - 5.50 [facility] m/uL [facility] HGB 13.6 12.0 - 16.0 [facility] g/dL [facility] HCT 41.1 37.0 - 47.0 % [facility] MCV 96.3 82.0 - 100.0 fL [facility] MCH 31.9 27.0 - 34.0 pg [facility] MCHC 33.1 31.0 - 37.0 [facility] g/dL [facility] RDW - SD 46.3 37.0 - 55.0 fL [facility] MPV 11.0 6.9 - 11.0 fL [facility] Platelet count 357 150 - 400 K/uL [facility] Nucleated RBC 0.00 /100 WBC [facility] Neutrophils 61.0 39.0 - 69.0 % [facility] Lymphocytes 33.7 25.0 - 45.0 % [facility] Monocytes 4.1 0.0 - 10.0 % [facility] Eosinophils 0.5 0.0 - 5.0 % [facility] Basophils 0.3 0.0 - 1.0 % [facility] Immature granulocytes 0.4 0.0 - 1.0 % [facility] Specimen Blood Performing Organization Address City/State/Zipcode Phone Number [facility] DEPARTMENT OF PATHOLOGY [address] [place] [address] AND [facility] [address] hCG quantitative, serum (11/10/2018 5:20 PM DATA DELIVERABLES MANAGER) hCG quantitative, 34 (H) 0 - 5 mIU/mL [facility] serum Comment: [place] Reference range for HCG Quant applies to males and non- HOSPITAL females. Post Menopausal 0.0 - 8.1 mIU/mL Specimen Blood Performing Organization Address City/State/Zipcode Phone Number [facility] DEPARTMENT OF PATHOLOGY [id number] [place] [address] Comprehensive metabolic panel (11/10/2018 5:20 PM DATA DELIVERABLES MANAGER) Sodium 137 135 - 148 mEq/L [facility] Potassium 3.8 3.5 - 5.0 mEq/L [facility] Chloride 98 98 - 112 mEq/L [facility] CO2 24 24 - 31 mEq/L [facility] Anion gap 15@ANIO 7 - 15 mEq/L [facility] BUN 9 6 - 20 mg/dL [facility] Creatinine 0.54 0.50 - 0.90 [facility] mg/dL [facility] Glucose 100 (H) 65 - 99 mg/dL [facility] Calcium 9.9 8.3 - 10.2 mg/dL [facility] Protein 8.4 (H) 6.3 - 8.3 g/dL [facility] Albumin 4.8 3.5 - 5.0 g/dL [facility] A/G ratio 1.3 0.7 - 3.8 [facility] Alkaline phosphatase 70 35 - 104 U/L [facility] AST 18 10 - 35 U/L [facility] ALT 23 5 - 50 U/L [facility] Total bilirubin 0.4 0.2 - 1.2 mg/dL [facility] Specimen Plasma specimen Performing Organization Address City/State/Zipcode Phone Number [facility] DEPARTMENT OF PATHOLOGY [id number] [place] [address] Urine culture (11/10/2018 5:15 PM DATA DELIVERABLES MANAGER) Urine culture SEE COMMENTComment: [facility] Bacteriuria screen [facility] negative. Specimen Performing Organization Address City/[facility]/Zipcode Phone Number [facility] DEPARTMENT OF PATHOLOGY [address] [place], [place] [address] AND [facility] SERGIO ALLEN [place] [address] [address] [place] [address] HOSPITAL after 04/24/2018 Insurance Payer Benefit Plan / Subscriber ID Effective Dates Phone Address Type Group MISC MEDICARE MIS MEDICARE xxxxxxxxxxx 2018-Present HMO REPLACEMENT REPLACEMENT [facility] xxxxxxxxx 2017-Presen HMO [place] t Advance Directives Patient has advance care planning documents on file. For more information, please contact:Sergio [id number] [place] [address]
--- NOTE | 2019-04-25 18:44 | RAD REPORT ---
EXAM DESCRIPTION: US - Transvaginal Study Probe - 04/25/2019 11:50 am CLINICAL HISTORY: Vaginal bleeding;Abd pain Pelvic pain. COMPARISON: Transvaginal Study Probe dated 08/06/2018 FINDINGS: The uterus is normal in size, shape and echotexture. The uterus measures 7.3 x 4.1 x 3.4 c m. The endometrial stripe measures 4 mm, normal. Both ovaries are normal in size, shape and echotexture. The right ovary measures 2.6 x 1.8 x 1.6 cm. The left ovary measures 4.4 x 3.2 x 3.0 cm. 3.0 x 2.5 cm left ovarian follicle noted. No adnexal ma sses. Normal Doppler blood flow was demonstrated to both ovaries. No significant pelvic ascites. IMPRESSION: No acute or worrisome finding delineated.
[2019-04-28 07:08] LABS: C.trachomatis RNA,TMA Not Detected (Not Detected)
== END 2019-04-25 11:31 | disposition home or self-care (01) ==
LOC: ER 09:16
DX: N83.202 Unspecified ovarian cyst, left side (principal); E11.9 Type 2 diabetes mellitus without complications; E78.00 Pure hypercholesterolemia, unspecified; I10 Essential (primary) hypertension
CPT/HCPCS: 36415; 76830; 80048; 80076; 81003; 81015; 81025; 83690; 85025; 87210; 87490; 87590; 99284

== ENCOUNTER 2019-05-02 09:46 | Emergency (ER) | payer OTHER ==
--- OUTSIDE RECORDS SUMMARY | 2019-05-02 09:58 | XMS REPORT ---
:1985 [facility] Address [address] [place] [address] [address] Care Team Providers Name Role Phone Unavailable [...]
--- OUTSIDE RECORDS SUMMARY | 2019-05-02 09:58 | XMS REPORT | Clinical Summary ---
:1985 Author Organization [facility] Address [address] [place] [address] Care Team Providers Name Role Phone Cm [...] a day. Take 1 tablet 0 Active vit,[id number] by mouth daily. olic 29 mg iron- [...] MD , first trimester (Primary Dx) after 05/01/2018 Immunizations Name Dates Previously Given Next Due [...] Taken Blood Pressure 139/84 11/10/2018 3:44 PM FLASH OVEN OPERATOR Pulse 95 11/10/2018 3:44 PM FLASH OVEN OPERATOR Temperature 36.7 C (98 F) 11/10/2018 3:44 PM FLASH OVEN OPERATOR Respiratory Rate 20 11/10/2018 3:44 PM FLASH OVEN OPERATOR Oxygen Saturation 100% 11/10/2018 3:44 PM FLASH OVEN OPERATOR Inhaled Oxygen Concentration - - Weight - - Height 162.6 cm (5' 4") 11/10/2018 3:41 PM FLASH OVEN OPERATOR Body Mass Index - - Plan of Treatment Health Maintenance Due Date Last Done Comments INFLUENZA VACCINE 06/27/2019 01/09/2018 Procedures Procedure Name Priority Date/Time Associated Comments Diagnosis US STAT 11/10/2018 7:27 Results for this TRANSVAGINAL PM FLASH OVEN OPERATOR procedure are in the results section. US SINGLE STAT 11/10/2018 7:20 Results for this LESS THAN 14 WEEKS PM FLASH OVEN OPERATOR procedure are in the results section. ESTIMATED GFR STAT 11/10/2018 5:20 Results for this PM FLASH OVEN OPERATOR procedure are in the results section. RH TYPE STAT 11/10/2018 5:20 Results for this PM FLASH OVEN OPERATOR procedure are in the results section. HCG QUANTITATIVE, STAT 11/10/2018 5:20 Results for this SERUM PM FLASH OVEN OPERATOR procedure are in the results section. URINALYSIS SCREEN AND STAT 11/10/2018 5:20 Results for this MICROSCOPY, WITH PM FLASH OVEN OPERATOR procedure are in REFLEX TO CULTURE the results section. COMPREHENSIVE STAT 11/10/2018 5:20 Results for this METABOLIC PANEL PM FLASH OVEN OPERATOR procedure are in the results section. HC COMPLETE BLD COUNT STAT 11/10/2018 5:20 Results for this W/AUTO DIFF PM FLASH OVEN OPERATOR procedure are in the results section. URINE CULTURE STAT 11/10/2018 5:15 Results for this PM FLASH OVEN OPERATOR procedure are in the results section. after 05/01/2018 Results US Transvaginal (11/10/2018 7:27 PM FLASH OVEN OPERATOR) Specimen Narrative Performed At EXAM: US TRANSVAGINAL, US SINGLE LESS THAN 14 WEEKS [facility] CLINICAL INDICATIONS:vaginal spotting TECHNIQUE: Pelvic ultrasound [...] No free fluid seen in the pelvis. [facility]-[id number] Procedure Note [facility], Radiology Results Incoming - 11/10/2018 8:06 PM FLASH OVEN OPERATOR EXAM: US TRANSVAGINAL, US SINGLE LESS [...] No free fluid seen in the pelvis. [facility]-[id number] Performing Organization Address City/State/Zipcode Phone Number [facility] [address] [place] [address] [place] Single Less Than 14 Weeks (11/10/2018 7:20 PM FLASH OVEN OPERATOR) Specimen Narrative Performed At EXAM: US TRANSVAGINAL, US SINGLE LESS THAN 14 WEEKS [facility] CLINICAL INDICATIONS:vaginal spotting TECHNIQUE: Pelvic ultrasound [...] No free fluid seen in the pelvis. [facility]-[id number] Procedure Note Interface, Radiology Results Incoming - 11/10/2018 8:06 PM FLASH OVEN OPERATOR EXAM: US TRANSVAGINAL, US SINGLE LESS [...] No free fluid seen in the pelvis. [facility]-[id number] Performing Organization Address City/State/Zipcode Phone Number [facility] [address] [place] [address] Urinalysis screen and microscopy, with reflex to culture (11/10/2018 5:20 PM FLASH OVEN OPERATOR) Specimen site Clean catch [facility] Color, UA Yellow [facility] Appearance, UA Clear [facility] Specific gravity, UA 1.012 1.001 - 1.[address] [facility] pH, UA 5.0 5.0 - 9.[address] [facility] Protein, UA Negative Negative [facility] Glucose, UA Negative Negative [facility] Ketones, UA 1+ (A) Negative [facility] Bilirubin, UA Negative Negative [facility] Blood, UA Moderate (A) Negative [facility] Nitrite, UA Negative Negative [facility] Urobilinogen, UA <2.0 <2.0 E.U./dL [facility] Leukocyte esterase, Negative Negative [facility] Epithelial cells, UA <1 /HPF [facility] Round epithelial <1 0 - 5 /HPF [facility] cells, UA [facility] WBC, UA 1 0 - 4 /HPF [facility] RBC, UA 6 (H) 0 - 5 /HPF [facility] Bacteria, UA None seen None seen [facility] Yeast, UA None seen [facility] Yeast with None seen [facility] pseudohyphae, [facility] Specimen Urine Performing Organization Address City/[facility] Phone Number [facility] DEPARTMENT OF PATHOLOGY [address] [place] [address] Estimated GFR (11/10/2018 5:20 PM FLASH OVEN OPERATOR) Estimated GFR >=90 mL/min/1.73 [facility] Comment: [address]Un[facility] G1 >=90 Normal or high G2 60-89Mildly decreased [id number] to moderately decreased [id number] to severely decreased G4 15-29Severely decreased G5 <15Kidney failure The eGFR was calculated using the Chronic Kidney Disease Epidemiology Collaboration (CKD-EPI) equation. Interpretation is based on recommendations of the National Kidney Foundation-Kidney Disease Outcomes Quality Initiative (NKF-KDOQI) published in 2014. Specimen Plasma specimen Performing Organization Address City/[facility]/Zipcode Phone Number [facility] DEPARTMENT OF PATHOLOGY [address] [place] [address] [place] [address] HOSPITAL RH type (11/10/2018 5:20 PM FLASH OVEN OPERATOR) Rh type POS [facility] Specimen Blood Performing Organization Address City/[facility]/Zipcode Phone Number [facility] DEPARTMENT OF PATHOLOGY [address] [place] [address] AND [facility] [id number] [place] [address] CBC with platelet and differential (11/10/2018 5:20 PM FLASH OVEN OPERATOR) WBC 13.5 (H) 4.5 - 11.0 k/uL [facility] RBC 4.27 4.20 - 5.50 [facility] m/uL [facility] HGB 13.6 12.0 - 16.0 [facility] g/dL [facility] HCT 41.1 37.0 - 47.0 % [facility] MCV 96.3 82.0 - 100.[address] [facility] MCH 31.9 27.0 - 34.[address] [facility] MCHC 33.1 31.0 - 37.0 [facility] g/dL [facility] RDW - SD 46.3 37.0 - 55.[address] [facility] MPV 11.0 6.9 - 11.[address] [facility] Platelet count 357 150 - 400 K/uL [facility] Nucleated RBC 0.00 /[address] [facility] Neutrophils 61.0 39.0 - 69.0 % [facility] Lymphocytes 33.7 25.0 - 45.0 % [facility] Monocytes 4.1 0.0 - 10.0 % [facility] Eosinophils 0.5 0.0 - 5.0 % [facility] Basophils 0.3 0.0 - 1.0 % [facility] Immature granulocytes 0.4 0.0 - 1.0 % [facility] Specimen Blood Performing Organization Address City/State/Zipcode Phone Number [facility] DEPARTMENT OF PATHOLOGY [address] [place] [address] AND [facility] [address] hCG quantitative, serum (11/10/2018 5:20 PM FLASH OVEN OPERATOR) hCG quantitative, 34 (H) 0 - 5 mIU/mL [facility] serum Comment: [place] Reference range for HCG Quant applies to males and non- HOSPITAL females. Post Menopausal 0.0 - 8.1 mIU/mL Specimen Blood Performing Organization Address City/State/Zipcode Phone Number [facility] DEPARTMENT OF PATHOLOGY [id number] [place] [address] Comprehensive metabolic panel (11/10/2018 5:20 PM FLASH OVEN OPERATOR) Sodium 137 135 - 148 mEq/L [facility] Potassium 3.8 3.5 - 5.0 mEq/L [facility] Chloride 98 98 - 112 mEq/L [facility] CO2 24 24 - 31 mEq/L [facility] Anion gap 15@ANIO 7 - 15 mEq/L [facility] BUN 9 6 - 20 mg/dL [facility] Creatinine 0.54 0.50 - 0.90 [facility] mg/dL [facility] Glucose 100 (H) 65 - 99 mg/dL [facility] Calcium 9.9 8.3 - 10.2 mg/dL [facility] Protein 8.4 (H) 6.3 - 8.3 g/dL [facility] Albumin 4.8 3.5 - 5.0 g/dL [facility] A/G ratio 1.3 0.7 - 3.[address] [facility] Alkaline phosphatase 70 35 - 104 U/L [facility] AST 18 10 - 35 U/L [facility] ALT 23 5 - 50 U/L [facility] Total bilirubin 0.4 0.2 - 1.2 mg/dL [facility] Specimen Plasma specimen Performing Organization Address City/State/Zipcode Phone Number [facility] DEPARTMENT OF PATHOLOGY [id number] [place] [address] Urine culture (11/10/2018 5:15 PM FLASH OVEN OPERATOR) Urine culture SEE COMMENTComment: [facility] Bacteriuria screen [facility] negative. Specimen Performing Organization Address City/[facility]/Zipcode Phone Number [facility] DEPARTMENT OF PATHOLOGY [address] [place], [place] [address] AND [facility] SERGIO ALLEN [place] [address] [facility] [place] [address] HOSPITAL after 05/01/2018 Insurance Payer Benefit Plan / Subscriber ID Effective Dates Phone Address Type Group MISC MEDICARE MIS MEDICARE xxxxxxxxxxx 2018-Present HMO REPLACEMENT REPLACEMENT [facility] xxxxxxxxx 2017-Presen HMO [place] t Advance Directives Patient has advance care planning documents on file. For more information, please contact:Sergio Allen[address] [place] [address]
[2019-05-02 10:34] LABS: Urine Blood NEGATIVE (NEG); Urine Glucose NEGATIVE (NEG); Urine Protein NEGATIVE (NEG); Urine Specific Gravity >1.030 (1.005-1.030); Urine pH 5.5 (5.0-7.0)
[2019-05-02 10:40] LABS: Urine Bacteria NONE SEEN /HPF (<20); Urine Culture Reflex Order NOT NEEDED; Urine RBC <5 /HPF (NONE SEEN)
[2019-05-02] MEDS ORDERED: ONDANSETRON 4 MG/2 ML VIAL ONE (10:40)
[2019-05-02] MEDS ORDERED: MORPHINE 4 MG/ML SYR ONE (10:40)
[2019-05-02 10:43] LABS: Hematocrit 39.6 % (36.0-45.0); RBC Red Blood Cell Count 3.98 M/uL (3.86-4.86)
[2019-05-02 10:44] LABS: Absolute Lymphocytes (CBC) 2.3 K/uL (0.7-4.9); Absolute Monocytes 0.5 K/uL (0.1-1.3); Absolute Neutrophil 5.4 K/uL (1.8-8.0); Basophils % 0.6 % (0-1.3); Eosinophils % 0.7 % (0-4.4); MPV 9.3 fL (7.6-11.3); Monocytes % 5.9 % (3.3-12.3)
[2019-05-02 11:39] LABS: ALT/SGPT 21 U/L (12-78); AST/SGOT 12 U/L (15-37); Albumin 3.5 g/dL (3.4-5.0); Alkaline Phosphatase 62 U/L (45-117); BUN Blood Urea Nitrogen 12 mg/dL (7-18); Bicarbonate 26 mmol/L (21-32); Bilirubin Direct 0.1 mg/dL (0-0.2); Bilirubin Total 0.4 mg/dL (0.2-1.0); Glucose Level 100 mg/dL (74-106); Lipase 120 U/L (73-393); Potassium 4.1 mmol/L (3.5-5.1); Protein, Total 7.3 g/dL (6.4-8.2); Sodium Level 141 mmol/L (136-145)
--- NOTE | 2019-05-02 11:43 | ER ---
Nurse's Notes [facility] Name: Mckenna Haney Age: 34 yrs Sex: Female : 1985 Arrival Date: 05/02/2019 Time: 09:49 Bed 18 Private MD: Diagnosis: Unspecified abdominal pain;Headache Presentation: 05/02 09:53 Presenting complaint: Patient states: Right flank pain and headaches for 3 days. aj Transition of care: patient was not received from another setting of care. Onset of symptoms was April 29, 2019. Risk Assessment: Do you want to hurt yourself or someone else? Patient reports no desire to harm self or others. Initial Sepsis Screen: Does the patient meet any 2 criteria? No. Patient's initial sepsis screen is negative. Does the patient have a suspected source of infection? No. Patient's initial sepsis screen is negative. Care prior to arrival: None. 09:53 Method Of Arrival: Ambulatory aj 09:53 Acuity: LILO 3 aj Triage Assessment: 09:55 General: Appears in no apparent distress. comfortable, Behavior is calm, cooperative, aj appropriate for age. Pain: Complains of pain in face, posterior aspect of right lateral abdomen and anterior aspect of right lateral abdomen. Neuro: Level of Consciousness is awake, alert, obeys commands, Oriented to person, place, time, situation, Appropriate for age. Neuro: Reports headache. Respiratory: Airway is patent Respiratory effort is even, unlabored, Respiratory pattern is regular, symmetrical. GI: Reports. : Reports pain in right flank(s). Derm: Skin is intact, is healthy with good turgor, Skin is pink, warm \T\ dry. normal. 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 04/11/2019 aj Historical: - Allergies: 09:55 Ibuprofen (Hives); aj - Home Meds: 09:55 atorvastatin 10 mg oral tab [Active]; glipizide 10 mg Oral tab 1 tab once daily aj [Active]; Januvia 100 mg Oral tab 1 tab once daily [Active]; metformin 1,000 mg Oral tab 1 tab 2 times per day [Active]; lisinopril 2.5 mg Oral tab 1 tab once daily [Active]; montelukast 10 mg Oral tab 1 tab once daily [Active]; naproxen 500 mg Oral TbEC 1 tab 2 times per day [Active]; - PMHx: 09:55 Diabetes - NIDDM; High Cholesterol; Hypertension; Ovarian cyst; aj - PSHx: 09:55 Cholecystectomy; aj - Immunization history:: Adult Immunizations up to date. - Social history:: Smoking status: Patient/guardian denies using tobacco. - Ebola Screening: : Patient negative for fever greater than or equal to 101.5 degrees Fahrenheit, and additional compatible Ebola Virus Disease symptoms Patient denies exposure to infectious person Patient denies travel to an Ebola-affected area in the 21 days before illness onset No symptoms or risks identified at this time. Screenin:58 Abuse screen: Denies threats or abuse. Denies injuries from another. Nutritional bp screening: No deficits noted. Tuberculosis screening: No symptoms or risk factors identified. Fall Risk None identified. Assessment: 09:58 General: SEE TRIAGE NOTE. PT SEEN FOR SAME x5 LAST MONTH, DX WITH OVARIAN CYST. bp 10:00 GI: Bowel sounds present X 4 quads. Abd is soft X 4 quads. bp 11:17 Reassessment: LABS RECOLLECTED AND SENT. ALL CURRENT ORDERS COMPLETED. bp 11:55 Reassessment: PT D/C HOME AMBULATORY, DX WITH UNSPECIFIED ABDOMINAL PAIN. bp Vital Signs: 09:55 BP 120 / 60; Pulse 73; Resp 18; Temp 97.8; Pulse Ox 99% on R/A; Weight 102.06 kg; aj Height 5 ft. 4 in. (162.56 cm); 11:16 BP 109 / 71; Pulse 75; Resp 17; Temp 98.1(O); Pulse Ox 99% on R/A; mh5 11:55 BP 108 / 72; Pulse 68; Resp 16; Temp 98; Pulse Ox 100% ; bp 09:55 Body Mass Index 38.62 (102.06 kg, 162.56 cm) aj ED Course: 09:49 Patient arrived in ED. ds1 09:54 Triage completed. aj 09:55 Arm band placed on right wrist. Patient placed in an exam room. aj 09:57 Jorge L Nunez, MARIN is Primary Nurse. bp 09:57 Irvin Lazar NP is PHCP. pm1 09:58 Wade Retana MD is Attending Physician. pm1 09:58 Patient has correct armband on for positive identification. Bed in low position. Call bp light in reach. Side rails up X2. 10:35 Inserted saline lock: 20 gauge in right antecubital area, using aseptic technique. bp Blood collected. 11:56 No provider procedures requiring assistance completed. IV discontinued, intact, bp bleeding controlled, No redness/swelling at site. Pressure dressing applied. Administered Medications: 10:35 Drug: morphine 4 mg Route: IVP; Site: right antecubital; bp 11:19 Follow up: Response: Pain is decreased bp 10:35 Drug: Zofran 4 mg Route: IVP; Site: right antecubital; bp 11:19 Follow up: Response: No adverse reaction bp Outcome: 11:42 Discharge ordered by MD. pm1 11:56 Discharged to home ambulatory. bp 11:56 Condition: stable 11:56 Discharge instructions given to patient, Instructed on discharge instructions, follow up and referral plans. medication usage, Demonstrated understanding of instructions, follow-up care, medications, Prescriptions given X 1. 11:57 Patient left the ED. bp Signatures: Kathryn Mattson, RN RN Kasey Pratt 1 Irvin Lazar, [employer] ASSOCIATE pm1 Miranda Brower [facility] Jorge L Nunez, MARIN RN bp
--- NOTE | 2019-05-02 11:44 | EDPHYS ---
Physician Documentation [facility] Name: Mckenna Haney Age: 34 yrs Sex: Female : 1985 Arrival Date: 05/02/2019 Time: 09:49 Bed 18 Private MD: ED Physician Wade Retana HPI: 05/02 10:24 This 34 yrs old Female presents to ER via Ambulatory with complaints of pm1 Abdominal Pain. 10:24 The patient presents with abdominal pain in the right upper quadrant. Onset: The pm1 symptoms/episode began/occurred 3 day(s) ago. The symptoms do not radiate. Associated signs and symptoms: none. Pertinent positives: Headache with abdominal pain, Pertinent negatives: nausea, vomiting, and diarrhea, blood in stools, chest pain, dysuria, fever, shortness of breath. Modifying factors: The symptoms are alleviated by nothing, the symptoms are aggravated by nothing. Severity of pain: in the emergency department the pain is unchanged. The patient has been recently seen at the [facility] Emergency Department, Patient 5 prior visits to this ER in the past 1 month. Two visits for abdominal pain on 04/17 and 04/25. Patient diagnosed with unspecified abdominal pain on 04/17 and ovarian cyst on 04/[address] imaging. Patient reports that her pain today is the same as her presentation on 04/17. 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 aj Historical: - Allergies: 09:55 Ibuprofen (Hives); aj - Home Meds: 09:55 atorvastatin 10 mg oral tab [Active]; glipizide 10 mg Oral tab 1 tab once daily aj [Active]; Januvia 100 mg Oral tab 1 tab once daily [Active]; metformin 1,000 mg Oral tab 1 tab 2 times per day [Active]; lisinopril 2.5 mg Oral tab 1 tab once daily [Active]; montelukast 10 mg Oral tab 1 tab once daily [Active]; naproxen 500 mg Oral TbEC 1 tab 2 times per day [Active]; - PMHx: 09:55 Diabetes - NIDDM; High Cholesterol; Hypertension; Ovarian cyst; aj - PSHx: 09:55 Cholecystectomy; aj - Immunization history:: Adult Immunizations up to date. - Social history:: Smoking status: Patient/guardian denies using tobacco. - Ebola Screening: : Patient negative for fever greater than or equal to 101.5 degrees Fahrenheit, and additional compatible Ebola Virus Disease symptoms Patient denies exposure to infectious person Patient denies travel to an Ebola-affected area in the 21 days before illness onset No symptoms or risks identified at this time. ROS: 10:24 Constitutional: Negative for fever, chills, and weight loss, Eyes: Negative for injury, pm1 pain, redness, and discharge, ENT: Negative for injury, pain, and discharge, Neck: Negative for injury, pain, and swelling, Cardiovascular: Negative for chest pain, palpitations, and edema, Respiratory: Negative for shortness of breath, cough, wheezing, and pleuritic chest pain. 10:24 Back: Negative for injury and pain, : Negative for injury, bleeding, discharge, and swelling, MS/Extremity: Negative for injury and deformity, Skin: Negative for injury, rash, and discoloration, Neuro: Negative for headache, weakness, numbness, tingling, and seizure. 10:24 Abdomen/GI: Positive for abdominal pain, Negative for nausea, vomiting, and diarrhea, constipation. Exam: 10:24 Constitutional: This is a well developed, well nourished patient who is awake, alert, pm1 and in no acute distress. Head/Face: Normocephalic, atraumatic. Eyes: Pupils equal round and reactive to light, extra-ocular motions intact. Lids and lashes normal. Conjunctiva and sclera are non-icteric and not injected. Cornea within normal limits. Periorbital areas with no swelling, redness, or edema. ENT: Nares patent. No nasal discharge, no septal abnormalities noted. Tympanic membranes are normal and external auditory canals are clear. Oropharynx with no redness, swelling, or masses, exudates, or evidence of obstruction, uvula midline. Mucous membranes moist. Neck: Trachea midline, no thyromegaly or masses palpated, and no cervical lymphadenopathy. Supple, full range of motion without nuchal rigidity, or vertebral point tenderness. No Meningismus. Chest/axilla: Normal chest wall appearance and motion. Nontender with no deformity. No lesions are appreciated. Cardiovascular: Regular rate and rhythm with a normal S1 and S2. No gallops, murmurs, or rubs. Normal PMI, no JVD. No pulse deficits. Respiratory: Lungs have equal breath sounds bilaterally, clear to auscultation and percussion. No rales, rhonchi or wheezes noted. No increased work of breathing, no retractions or nasal flaring. 10:24 Back: No spinal tenderness. No costovertebral tenderness. Full range of motion. Skin: Warm, dry with normal turgor. Normal color with no rashes, no lesions, and no evidence of cellulitis. MS/ Extremity: Pulses equal, no cyanosis. Neurovascular intact. Full, normal range of motion. 10:24 Abdomen/GI: Inspection: abdomen appears normal, Bowel sounds: normal, Palpation: abdomen is soft and non-tender, mass, is not appreciated, rebound tenderness, is not appreciated. 10:24 Neuro: Orientation: is normal, Motor: is normal, moves all fours, Sensation: is normal, no obvious gross deficits. Vital Signs: 09:55 BP 120 / 60; Pulse 73; Resp 18; Temp 97.8; Pulse Ox 99% on R/A; Weight 102.06 kg; aj Height 5 ft. 4 in. (162.56 cm); 11:16 BP 109 / 71; Pulse 75; Resp 17; Temp 98.1(O); Pulse Ox 99% on R/A; mh5 11:55 BP 108 / 72; Pulse 68; Resp 16; Temp 98; Pulse Ox 100% ; bp 09:55 Body Mass Index 38.62 (102.06 kg, 162.56 cm) aj MDM: 10:00 Patient medically screened. pm1 10:22 Data reviewed: vital signs. Data interpreted: Pulse oximetry: on room air is 99 %. pm1 Interpretation: normal. 11:40 ED course: Patient without abdominal tenderness on examination and labs WNL. Patient pm1 with two recent prior CT ABD/pelvis. No indication for CT scan at this visit. Recommend follow up with PCP and/or GI. 11:41 Counseling: I had a detailed discussion with the patient and/or guardian regarding: the pm1 historical points, exam findings, and any diagnostic results supporting the discharge/admit diagnosis, lab results, the need for outpatient follow up, to return to the emergency department if symptoms worsen or persist or if there are any questions or concerns that arise at home. 05/02 10:08 Order name: Basic Metabolic Panel; Complete Time: 11:40 pm1 05/02 10:08 Order name: CBC with Diff; Complete Time: 11:40 pm1 05/02 10:08 Order name: Creatinine for Radiology; Complete Time: 11:40 pm1 05/02 10:08 Order name: Hepatic Function; Complete Time: 11:40 pm1 05/02 10:08 Order name: Lipase; Complete Time: 11:40 pm1 05/02 10:09 Order name: Urine Microscopic Only; Complete Time: 11:40 pm1 05/02 10:08 Order name: IV Saline Lock; Complete Time: 10:37 pm1 05/02 10:08 Order name: Labs collected and sent; Complete Time: 10:37 pm1 05/02 10:09 Order name: Urine Dipstick-Ancillary (obtain specimen); Complete Time: 10:21 pm1 05/02 10:29 Order name: Urine Dipstick--Ancillary (enter results); Complete Time: 11:40 ag 05/02 10:29 Order name: Urine --Ancillary (enter results); Complete Time: 11:40 ag 05/02 10:49 Order name: Labs - recollect needed; Complete Time: 11:19 ag Administered Medications: 10:35 Drug: morphine 4 mg Route: IVP; Site: right antecubital; bp 11:19 Follow up: Response: Pain is decreased bp 10:35 Drug: Zofran 4 mg Route: IVP; Site: right antecubital; bp 11:19 Follow up: Response: No adverse reaction bp Disposition: 12:19 Co-signature as Attending Physician, Wade Retana MD I agree with the assessment and tish plan of care. Disposition: 05/02/19 11:42 Discharged to Home. Impression: Unspecified abdominal pain, Headache. - Condition is Stable. - Discharge Instructions: Abdominal Pain, Adult, General Headache Without Cause. - Prescriptions for Tramadol 50 mg Oral Tablet - take 1 tablet by ORAL route every 8 hours as needed; 12 tablet. - Medication Reconciliation Form, Thank You Letter, Antibiotic Education, Prescription Opioid Use form. - Follow up: Emergency Department; When: As needed; Reason: Worsening of condition. Follow up: Private Physician; When: 2 - 3 days; Reason: Recheck today's complaints, Continuance of care, Re-evaluation by your physician. - Problem is new. - Symptoms have improved. Signatures: Dispatcher [employer] EDMS Kathryn Mattson RN RN Wade Gardner MD MD cha Gallardo, Ana ag Marinas, Patrick, ROTARY DERRICK OPERATOR ROTARY DERRICK OPERATOR pm1 Jorge L Nunez, RN RN bp Corrections: (The following items were deleted from the chart) 11:46 11:42 05/02/2019 11:42 Discharged to Home. Impression: Unspecified abdominal pain. pm1 Condition is Stable. Forms are Medication Reconciliation Form, Thank You Letter, Antibiotic Education, Prescription Opioid Use. Follow up: Emergency Department; When: As needed; Reason: Worsening of condition. Follow up: Private Physician; When: 2 - 3 days; Reason: Recheck today's complaints, Continuance of care, Re-evaluation by your physician. Problem is new. Symptoms have improved. pm1 11:57 11:46 05/02/2019 11:42 Discharged to Home. Impression: Unspecified abdominal pain; bp Headache. Condition is Stable. Discharge Instructions: Abdominal Pain, Adult. Forms are Medication Reconciliation Form, Thank You Letter, Antibiotic Education, Prescription Opioid Use. Follow up: Emergency Department; When: As needed; Reason: Worsening of condition. Follow up: Private Physician; When: 2 - 3 days; Reason: Recheck today's complaints, Continuance of care, Re-evaluation by your physician. Problem is new. Symptoms have improved. pm1
== END 2019-05-02 11:57 | disposition home or self-care (01) ==
LOC: ER 09:46
DX: R10.11 Right upper quadrant pain (principal); R51 Headache; E11.9 Type 2 diabetes mellitus without complications; E78.00 Pure hypercholesterolemia, unspecified; I10 Essential (primary) hypertension; Z79.84 Long term (current) use of oral hypoglycemic drugs
CPT/HCPCS: 85025; 80048; 36415; 81025; 80076; 83690; 96375; 96374; 99284; J2405; 81003; 81015

== ENCOUNTER 2019-05-27 15:10 | Emergency (ER) | payer OTHER ==
--- OUTSIDE RECORDS SUMMARY | 2019-05-27 15:22 | XMS REPORT ---
:1985 [facility] Address [address] [place] [address] [address] Care Team Providers Name Role Phone Unavailable [...]
--- OUTSIDE RECORDS SUMMARY | 2019-05-27 15:22 | XMS REPORT | Continuity of Care Document ---
:1985 Author Organization [facility] Information MyNewFinancialAdvisor Care Team Providers Name Role Phone [facility] Recorded Future Unavailable Unavailable Problems Problem Status Onset Classification Date Comments Source Date Reported Unspecified 03/16/2018 [place] otitis externa, 8 right ear Otitis externa 03/16/2018 [place] of right ear 8 Cough 03/16/2018 [place] 8 EAR PAIN/ Active [facility] 8 [place] BLEEDING, 3WKS Active [facility] 7 [place] Medications Medication Details Route Status Patient Ordering Order Source Instructions Provider Date tramadol 50 mg, Inactive hydrochloride 50 Route: PO, 018 [place] MG Oral Tablet Drug form: TAB, ONCE, Dosing Weight 107.273, kg, Priority: STAT, Start date: 12/08/17 23:51:00 [employer]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 TRUCK 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, Stop date: 12/08/17 23:51:00 [employer]ERING TRUCK OPERATOR 200 ACTUAT 2 puff, Active Albuterol 0.09 INHALER, 018 [place] MG/ACTUAT Q4H, PRN Metered Dose wheezing, Inhaler [ProAir coughing, HFA] or shortness of breath, # 1 ea, 1 Refill(s) benzonatate 200 200 mg=1 No Longer MH MG Oral Capsule cap, PO, Active 018 [place] [Tessalon] TID, PRN as needed for cough, X 7 day, # 21 cap, 0 Refill(s) Ciprofloxacin 3 4 drp, No Longer [facility] MG/ML / RIGHT EAR, Active 018 [place] Dexamethasone 1 BID, X 7 MG/ML Otic day, # 1 Suspension btl, 0 [Ciprodex] Refill(s) Albuterol 0.833 3 ml, Inactive [facility] MG/ML / Route: NEB, 018 [place] Ipratropium Drug Form: [place] 0.167 SOLN, MG/ML Inhalant Dosing Solution Weight [DuoNeb] 107.273, kg, ONCE, Start date: 12/08/17 21:31:00 CATERING TRUCK OPERATOR, Stop date: 12/08/17 21:31:00 CSTNotes: (Same as: Duoneb) Allergies, Adverse Reactions, Alerts Substance Category Reaction Severity Reaction Status Date Comments Source type Reported Motrin Assertion Drug Active allergy [place] Immunizations No Data Provided for This Section Results No Data Provided for This Section Pathology Reports No Data Provided for This Section Diagnostic Reports Report Value Date Source Chest 2 views DX EXAM: XR CHEST 2 VIEW 12/08/2017 [facility] DATE: 12/08/2017 9:31 PM CATERING TRUCK OPERATOR INDICATION: Cough. COMPARISON: 04/24/2010. TECHNIQUE: PA and lateral views of the chest were obtained. FINDINGS: No focal consolidation or pneumothorax is identified. The cardiomediastinal silhouette is within normal limits. The costophrenic recesses are sharp and without effusion. No acute osseous abnormality is noted. IMPRESSION: No acute cardiopulmonary abnormality. SL: [id number] Consultation Notes No Data Provided for This Section Discharge Summaries No Data Provided for This Section History and Physicals No Data Provided for This Section Vital Signs Vital Sign Value Date Comments Source Respitory Rate 18 12/09/2017 [facility] Systolic (mm Hg) 146 12/09/2017 [facility] Diastolic (mm Hg) 95 12/09/2017 [facility] Heart Rate 109 12/09/2017 [facility] Respitory Rate 18 12/09/2017 [facility] Weight 107.273 12/09/2017 [facility] Heart Rate 100 12/09/2017 [facility] Systolic (mm Hg) 141 12/09/2017 [facility] Diastolic (mm Hg) 79 12/09/2017 [facility] Respitory Rate 20 12/09/2017 [facility] Temperature Oral (F) 98.9 F 12/09/2017 [facility] Weight 103.636 01/08/2017 [facility] BMI Calculated 39.22 01/08/2017 [facility] Height 162.56 cm 01/08/2017 [facility] Systolic (mm Hg) 134 01/08/2017 [facility] Diastolic (mm Hg) 93 01/08/2017 [facility] Temperature Oral (F) 98 F 01/08/2017 [facility] Heart Rate 102 01/08/2017 [facility] [place] Respitory Rate 18 01/08/2017 [facility] Encounters Location Location Encounter Encounter Reason Attending ADM DC Status Source Details Type Number For Provider Date Date Visit [facility] [id number] Antolin Olearymariah 01/08 01/08 [place] [facility]2016 [facility] [id number] Umm 12/09 12/09 [place] /2017 [facility] Procedures No Data Provided for This Section Assessment and Plan No Data Provided for This Section Plan of Care No Data Provided for This Section Social History Social History Date Source Social History TypeResponse 12/09/2017 [facility] Smoking Status Never smoker; Concerns about tobacco use in household: No; Exposure to Tobacco Smoke None; Cigarette Smoking Last 365 Days No; Reg Smoking Cessation Counseling No entered on: 12/08/17 Family History No Data Provided for This Section Advance Directives No Data Provided for This Section Functional Status No Data Provided for This Section
--- OUTSIDE RECORDS SUMMARY | 2019-05-27 15:22 | XMS REPORT | Clinical Summary ---
:1985 Author Organization [facility] Address [address] [place] [address] Care Team Providers Name Role Phone Cm [...] a day. Take 1 tablet 0 Active vit,[id number] by mouth daily. olic 29 mg iron- [...] MD , first trimester (Primary Dx) after 05/26/2018 Immunizations Name Dates Previously Given Next Due [...] Taken Blood Pressure 139/84 11/10/2018 3:44 PM AERONAUTICAL ENGINEERING TECHNOLOGIST Pulse 95 11/10/2018 3:44 PM AERONAUTICAL ENGINEERING TECHNOLOGIST Temperature 36.7 C (98 F) 11/10/2018 3:44 PM AERONAUTICAL ENGINEERING TECHNOLOGIST Respiratory Rate 20 11/10/2018 3:44 PM AERONAUTICAL ENGINEERING TECHNOLOGIST Oxygen Saturation 100% 11/10/2018 3:44 PM AERONAUTICAL ENGINEERING TECHNOLOGIST Inhaled Oxygen Concentration - - Weight - - Height 162.6 cm (5' 4") 11/10/2018 3:41 PM AERONAUTICAL ENGINEERING TECHNOLOGIST Body Mass Index - - Plan of Treatment Health Maintenance Due Date Last Done Comments INFLUENZA VACCINE 06/27/2019 01/09/2018 Procedures Procedure Name Priority Date/Time Associated Comments Diagnosis US STAT 11/10/2018 7:27 Results for this TRANSVAGINAL PM AERONAUTICAL ENGINEERING TECHNOLOGIST procedure are in the results section. US SINGLE STAT 11/10/2018 7:20 Results for this LESS THAN 14 WEEKS PM AERONAUTICAL ENGINEERING TECHNOLOGIST procedure are in the results section. ESTIMATED GFR STAT 11/10/2018 5:20 Results for this PM AERONAUTICAL ENGINEERING TECHNOLOGIST procedure are in the results section. RH TYPE STAT 11/10/2018 5:20 Results for this PM AERONAUTICAL ENGINEERING TECHNOLOGIST procedure are in the results section. HCG QUANTITATIVE, STAT 11/10/2018 5:20 Results for this SERUM PM AERONAUTICAL ENGINEERING TECHNOLOGIST procedure are in the results section. URINALYSIS SCREEN AND STAT 11/10/2018 5:20 Results for this MICROSCOPY, WITH PM AERONAUTICAL ENGINEERING TECHNOLOGIST procedure are in REFLEX TO CULTURE the results section. COMPREHENSIVE STAT 11/10/2018 5:20 Results for this METABOLIC PANEL PM AERONAUTICAL ENGINEERING TECHNOLOGIST procedure are in the results section. HC COMPLETE BLD COUNT STAT 11/10/2018 5:20 Results for this W/AUTO DIFF PM AERONAUTICAL ENGINEERING TECHNOLOGIST procedure are in the results section. URINE CULTURE STAT 11/10/2018 5:15 Results for this PM AERONAUTICAL ENGINEERING TECHNOLOGIST procedure are in the results section. after 05/26/2018 Results US Transvaginal (11/10/2018 7:27 PM AERONAUTICAL ENGINEERING TECHNOLOGIST) Specimen Narrative Performed At EXAM: US TRANSVAGINAL, US SINGLE LESS THAN 14 WEEKS [facility] CLINICAL INDICATIONS:vaginal spotting TECHNIQUE: Pelvic [...] No free fluid seen in the pelvis. [id number] Procedure Note [facility], Radiology Results Incoming - 11/10/2018 8:06 PM AERONAUTICAL ENGINEERING TECHNOLOGIST EXAM: US TRANSVAGINAL, US SINGLE LESS THAN [...] No free fluid seen in the pelvis. [id number] Performing Organization Address City/State/Zipcode Phone Number [facility] [address] [place] [address] US Single Less Than 14 Weeks (11/10/2018 7:20 PM AERONAUTICAL ENGINEERING TECHNOLOGIST) Specimen Narrative Performed At EXAM: US TRANSVAGINAL, US SINGLE LESS THAN 14 WEEKS [facility] CLINICAL INDICATIONS:vaginal spotting TECHNIQUE: Pelvic [...] No free fluid seen in the pelvis. [id number] Procedure Note Interface, Radiology Results Incoming - 11/10/2018 8:06 PM AERONAUTICAL ENGINEERING TECHNOLOGIST EXAM: US TRANSVAGINAL, US SINGLE LESS THAN [...] No free fluid seen in the pelvis. [id number] Performing Organization Address City/State/Zipcode Phone Number [facility] [address] [place] [address] Urinalysis screen and microscopy, with reflex to culture (11/10/2018 5:20 PM AERONAUTICAL ENGINEERING TECHNOLOGIST) Specimen site Clean catch [facility] Color, UA Yellow [facility] Appearance, UA Clear [facility] Specific gravity, UA 1.012 1.001 - 1.030 [facility] pH, UA 5.0 5.0 - 9.0 [facility] Protein, UA Negative Negative [facility] Glucose, UA Negative Negative [facility] Ketones, UA 1+ (A) Negative [facility] Bilirubin, UA Negative Negative [facility] Blood, UA Moderate (A) Negative [facility] Nitrite, UA Negative Negative [facility] Urobilinogen, UA <2.0 <2.0 E.U./dL [facility] Leukocyte esterase, Negative Negative [facility] Epithelial cells, UA <1 /HPF [facility] Round epithelial <1 0 - 5 /HPF [facility] cells, UA [facility] WBC, UA 1 0 - 4 /HPF [facility] RBC, UA 6 (H) 0 - 5 /HPF [facility] Bacteria, UA None seen None seen [facility] Yeast, UA None seen [facility] Yeast with None seen [facility] pseudohyphae, [facility] Specimen Urine Performing Organization Address City/[facility] Phone Number [facility] DEPARTMENT OF PATHOLOGY [address] [place] [address] Estimated GFR (11/10/2018 5:20 PM AERONAUTICAL ENGINEERING TECHNOLOGIST) Estimated GFR >=90 mL/min/1.73 [facility] Comment: [address]UnRobert [facility] G1 >=90 Normal or high G2 60-89Mildly decreased [id number] to moderately decreased J4f20-63Sqznwuovoe to severely decreased G4 15-29Severely decreased G5 <15Kidney failure The eGFR was calculated using the Chronic Kidney Disease Epidemiology Collaboration (CKD-EPI) equation. Interpretation is based on recommendations of the National Kidney Foundation-Kidney Disease Outcomes Quality Initiative (NKF-KDOQI) published in 2014. Specimen Plasma specimen Performing Organization Address City/[facility]/Zipcode Phone Number [facility] DEPARTMENT OF PATHOLOGY [address] [place] [address] [place] [address] HOSPITAL RH type (11/10/2018 5:20 PM AERONAUTICAL ENGINEERING TECHNOLOGIST) Rh type POS [facility] Specimen Blood Performing Organization Address City/[facility]/Zipcode Phone Number [facility] DEPARTMENT OF PATHOLOGY [address] [place] [address] AND [facility] [id number] [place] [address] CBC with platelet and differential (11/10/2018 5:20 PM AERONAUTICAL ENGINEERING TECHNOLOGIST) WBC 13.5 (H) 4.5 - 11.0 k/uL [facility] RBC 4.27 4.20 - 5.50 [facility] m/uL [facility] HGB 13.6 12.0 - 16.0 [facility] g/dL [facility] HCT 41.1 37.0 - 47.0 % [facility] MCV 96.3 82.0 - 100.0 fL [facility] MCH 31.9 27.0 - 34.0 pg [facility] MCHC 33.1 31.0 - 37.0 [facility] g/dL [facility] RDW - SD 46.3 37.0 - 55.0 fL [facility] MPV 11.0 6.9 - 11.0 fL [facility] Platelet count 357 150 - 400 K/uL [facility] Nucleated RBC 0.00 /100 WBC [facility] Neutrophils 61.0 39.0 - 69.0 % [facility] Lymphocytes 33.7 25.0 - 45.0 % [facility] Monocytes 4.1 0.0 - 10.0 % [facility] Eosinophils 0.5 0.0 - 5.0 % [facility] Basophils 0.3 0.0 - 1.0 % [facility] Immature granulocytes 0.4 0.0 - 1.0 % [facility] Specimen Blood Performing Organization Address City/State/Zipcode Phone Number [facility] DEPARTMENT OF PATHOLOGY [address] [place] [address] AND [facility] [address] hCG quantitative, serum (11/10/2018 5:20 PM AERONAUTICAL ENGINEERING TECHNOLOGIST) hCG quantitative, 34 (H) 0 - 5 mIU/mL [facility] serum Comment: [place] Reference range for HCG Quant applies to males and non- HOSPITAL females. Post Menopausal 0.0 - 8.1 mIU/mL Specimen Blood Performing Organization Address City/State/Zipcode Phone Number [facility] DEPARTMENT OF PATHOLOGY [id number] [place] [address] Comprehensive metabolic panel (11/10/2018 5:20 PM AERONAUTICAL ENGINEERING TECHNOLOGIST) Sodium 137 135 - 148 mEq/L [facility] Potassium 3.8 3.5 - 5.0 mEq/L [facility] Chloride 98 98 - 112 mEq/L [facility] CO2 24 24 - 31 mEq/L [facility] Anion gap 15@ANIO 7 - 15 mEq/L [facility] BUN 9 6 - 20 mg/dL [facility] Creatinine 0.54 0.50 - 0.90 [facility] mg/dL [facility] Glucose 100 (H) 65 - 99 mg/dL [facility] Calcium 9.9 8.3 - 10.2 mg/dL [facility] Protein 8.4 (H) 6.3 - 8.3 g/dL [facility] Albumin 4.8 3.5 - 5.0 g/dL [facility] A/G ratio 1.3 0.7 - 3.8 [facility] Alkaline phosphatase 70 35 - 104 U/L [facility] AST 18 10 - 35 U/L [facility] ALT 23 5 - 50 U/L [facility] Total bilirubin 0.4 0.2 - 1.2 mg/dL [facility] Specimen Plasma specimen Performing Organization Address City/State/Zipcode Phone Number [facility] DEPARTMENT OF PATHOLOGY [phone] [place] [address] Urine culture (11/10/2018 5:15 PM AERONAUTICAL ENGINEERING TECHNOLOGIST) Urine culture SEE COMMENTComment: [facility] Bacteriuria screen [facility] negative. Specimen Performing Organization Address City/[facility]/Zipcode Phone Number [facility] DEPARTMENT OF PATHOLOGY [address] [place], [place] [id number] AND [facility] [place] [address] [facility] [place] [address] HOSPITAL after 05/26/2018 Insurance Payer Benefit Plan / Subscriber ID Effective Dates Phone Address Type Group MISC MEDICARE MIS MEDICARE xxxxxxxxxxx 2018-Present HMO REPLACEMENT REPLACEMENT [facility] xxxxxxxxx 2017-Presen HMO [place] t Advance Directives Patient has advance care planning documents on file. For more information, please contact:Sergio [id number] [place] [address]
--- OUTSIDE RECORDS SUMMARY | 2019-05-27 15:22 | XMS REPORT | Summary of Care ---
:1985 Author Organization [facility] Address [address] [place] [address]- Encounter HQ Encntr_alimartín(FIN) [id number] Date(s): 01/07/17 - 01/08/17 [facility] [id number] [place] [phone] Discharge Disposition: Left Without Being Seen Attending Physician: Antolin Zuniga MD Vital Signs Most recent to oldest [Reference Range]: 1 Height 162.56 cm (01/07/17 9:10 PM) Temperature Oral [96.4-99.1 DegF] 98 DegF (01/07/17 9:10 PM) Blood Pressure [90-140/60-90 mmHg] 134/93 mmHg (01/07/17 9:10 PM) Respiratory Rate [14-20 BRMIN] 18 BRMIN (01/07/17 9:10 PM) Peripheral Pulse Rate [60-100 bpm] 102 bpm *HI* (01/07/17 9:10 PM) Weight 103.636 kg (01/07/17 9:10 PM) Body Mass Index 39.22 m2 (01/07/17 9:10 PM) Problem List No data available for this section Allergies, Adverse Reactions, Alerts Substance Reaction Severity Status Motrin Active Medications No data available for this section Results No data available for this section Immunizations No data available for this section Procedures No data available for this section Social History No data available for this section Assessment and Plan No data available for this section
--- OUTSIDE RECORDS SUMMARY | 2019-05-27 15:22 | XMS REPORT | Summary of Care ---
:1985 Author Organization [facility] Address [address] [place] [address]- Encounter HQ Encntr_alias(FIN) [id number] Date(s): 12/08/17 - 12/08/[address] [phone] Encounter Diagnosis Otitis externa of right ear (Discharge Diagnosis) - 12/08/17 Cough (Discharge Diagnosis) - 12/08/17 Unspecified otitis externa, right ear (Final) - 12/14/17 Cough (Final) - Discharge Disposition: Home or Self Care Attending Physician: Umm Duran MD Vital Signs Most recent to oldest 1 2 3 [Reference Range]: Temperature Oral [96.4-99.1 98.9 DegF DegF] (12/08/17 8:25 PM) Blood Pressure [90-140/60-90 146/95 mmHg 141/79 mmHg mmHg] *HI* *HI* (12/08/17 11:54 PM) (12/08/17 8:25 PM) Respiratory Rate [14-20 BRMIN] 18 BRMIN 18 BRMIN 20 BRMIN (12/08/17 11:54 PM) (12/08/17 9:52 PM) (12/08/17 8:25 PM) Peripheral Pulse Rate [60-100 109 bpm 100 bpm bpm] *HI* (12/08/17 8:25 PM) (12/08/17 11:54 PM) Weight 107.273 kg (12/08/17 8:25 PM) Problem List No data available for this section Allergies, Adverse Reactions, Alerts Substance Reaction Severity Status Motrin Active Medications Ciprodex otic suspension 4 drp, RIGHT EAR, BID, X 7 day, # 1 btl, 0 Refill(s) Start Date: 12/08/17 Stop Date: 12/15/17 Status: CompletedDuoNeb inhalation solution 3 ml, Route: NEB, Drug Form: SOLN, Dosing Weight 107.273, kg, ONCE, Start date: 12/08/17 21:31:00 MECHANICAL ENGINEERING TEACHER, Stop date: 12/08/17 21:31:00 MECHANICAL ENGINEERING TEACHER Notes: (Same as: Duoneb) Start Date: 12/08/17 Stop Date: 12/08/17 Status: CompletedProAir HFA 90 mcg/inh inhalation aerosol with adapter 2 puff, INHALER, Q4H, PRN wheezing, coughing, or shortness of breath, # 1 ea, 1 Refill(s) Start Date: 12/08/17 Status: OrderedTessalon 200 mg oral capsule 200 mg=1 cap, PO, TID, PRN as needed for cough, X 7 day, # 21 cap, 0 Refill(s) Start Date: 12/08/17 Stop Date: 12/15/17 Status: Completedtramadol 50 mg oral tablet 50 mg, Route: PO, Drug form: TAB, ONCE, Dosing Weight 107.273, kg, Priority: STAT, Start date: 12/08/17 23:51:00 MECHANICAL ENGINEERING TEACHER, Stop date: 12/08/17 23:51:00 MECHANICAL ENGINEERING TEACHER Start Date: 12/08/17 Stop Date: 12/08/17 Status: Completed Results No data available for this section Immunizations No data available for this section Procedures No data available for this section Social History Social History Type Response Smoking Status Never smoker; Concerns about tobacco use in household: No; Exposure to Tobacco Smoke None; Cigarette Smoking Last 365 Days No; Reg Smoking Cessation Counseling No entered on: 12/08/17 Assessment and Plan No data available for this section
--- OUTSIDE RECORDS SUMMARY | 2019-05-27 15:23 | XMS REPORT ---
:1985 Author Organization [employer] Care Team Providers Name Role Phone Rafykaris Klarissa Provider Role Unavailable Allergies No Known Allergies Problems Problem Type Condition Code Onset Dates Condition Status Problem Diabetes E11.9 Active Problem Asthma J45.909 Active Problem Essential hypertension I10 Active Problem Uterine bleeding N93.9 Active Problem Left ovarian cyst N83.202 Active Problem Obesity (BMI 30-39.9) E66.9 Active Problem Difficulty sleeping G47.9 Active Problem Anxiety F41.9 Active Problem Dietary surveillance and counseling Z71.3 Active Problem Right upper quadrant pain R10.11 Active Problem Ingrown toenail of right foot L60.0 Active Assessment Uncontrolled type 2 diabetes E11.65 Active mellitus with hyperglycemia Problem Sinus problem J34.9 Active Problem Hypercholesterolemia E78.00 Active Problem Uncontrolled type 2 diabetes E11.65 Active mellitus with hyperglycemia Problem Seasonal allergies J30.2 Active Problem High blood pressure I10 Active Problem Migraine G43.909 Active Medications Medication Code System Code Instructions Start Date End Date Status Dosage Vernsharitahayde [facility] [id number] 100 MG Orally Active 1 tablet Once a day Results No Known Results Summary Purpose [employer]Clinical[employer] Submission
--- OUTSIDE RECORDS SUMMARY | 2019-05-27 15:23 | XMS REPORT ---
:1985 Author Organization [employer] Care Team Providers Name Role Phone Danny Klarissa Provider Role Unavailable Allergies No Known [...] Ingrown toenail of right foot L60.0 Active Problem Sinus problem J34.9 Active Problem Hypercholesterolemia E78.00 Active Problem Uncontrolled type 2 diabetes E11.65 Active mellitus with hyperglycemia Problem Seasonal allergies J30.2 Active Problem High blood pressure I10 Active Problem Migraine G43.909 Active Medications No Known Medications Results No Known Results Summary Purpose [employer] Submission
--- OUTSIDE RECORDS SUMMARY | 2019-05-27 15:23 | XMS REPORT ---
:1985 Author Organization [employer] Care Team Providers Name Role Phone Danny Klarissa Provider Role Unavailable Allergies, Adverse Reactions, Alerts Substance Reaction Event Type N.K.D.A. Info Not Available Non Drug Allergy Problems Problem Type Condition Code Onset Dates Condition Status Problem Anxiety F41.9 Active Problem Right upper quadrant pain R10.11 Active Problem Difficulty sleeping G47.9 Active Problem Dizziness R42 Active Problem Depression screening Z13.31 Active Assessment Rash and nonspecific skin eruption R21 Active Assessment Uncontrolled type 2 diabetes E11.65 Active mellitus with hyperglycemia Problem Rash and nonspecific skin eruption R21 Active Problem Left ovarian cyst N83.202 Active Problem Dietary surveillance and counseling Z71.3 Active Problem Uterine bleeding N93.9 Active Problem Obesity (BMI 30-39.9) E66.9 Active Problem Uncontrolled type 2 diabetes E11.65 Active mellitus with hyperglycemia Problem Migraine G43.909 Active Problem High blood pressure I10 Active Problem Ingrown toenail of right foot L60.0 Active Problem Seasonal allergies J30.2 Active Problem Diabetes E11.9 Active Assessment Depression screening Z13.31 Active Problem Sinus problem J34.9 Active Problem Essential hypertension I10 Active Assessment Dizziness R42 Active Problem Hypercholesterolemia E78.00 Active Problem Asthma J45.909 Active Medications Medication Code Code Instructions Start End Status Dosage System Date Date Atorvastatin [facility] 22793617798 10 MG Orally Active 1 tablet Calcium Once a day Meclizine HCl [facility] 07979699812 25 MG Orally April Active 1 tablet as bid prn 07, needed 2019 Alogliptin [facility] 31014480875 25 MG Orally April Active 1 tablet Benzoate Once a day for 28, diabetes 2019 Amoxicillin [facility] 90850150986 500 MG Orally Active 1 capsule Twice a day Vitamin D [facility] 42146865073 2000 UNIT Active 1 tablet Orally Once a day Orphenadrine [facility] [address]-77 100 MG Orally Active as directed Citrate ER Lisinopril [facility] 65308720849 5 MG Orally Active 1 tablet Once a day GlipiZIDE XL [facility] 71372755501 5 MG Orally Active 1 tablet with Once a day food Januvia [facility] 91449612315 100 MG Orally Inactive 1 tablet Once a day Loratadine [facility] 61473039415 10 MG Orally Active 1 tablet Once a day BusPIRone HCl [facility] 70241994717 7.5 MG Orally April 18, Active 1 tablet as Twice a day 2018 needed for anxiety Triamcinolone [facility] 34133394577 0.1 % April Active 1 application Acetonide , to affected Twice a day 2019 areas Results No Known Results Summary Purpose [employer]ClinicalWorks Submission
--- NOTE | 2019-05-27 15:46 | ER ---
Nurse's Notes [facility] Name: Mckenna Haney Age: 34 yrs Sex: Female : 1985 Arrival Date: 05/27/2019 Time: 15:12 Bed 26 Private MD: Out, [facility] Diagnosis: Dizziness, BPPV Presentation: 05/27 15:16 Presenting complaint: Patient states: dimas been having too much dizziness since 2 days hj ago especially when i wake up in the morning, feels like my legs are swollen; denies SOB;. Transition of care: patient was not received from another setting of care. Onset of symptoms was May 27, 2019. Risk Assessment: Do you want to hurt yourself or someone else? Patient reports no desire to harm self or others. Initial Sepsis Screen: Does the patient meet any 2 criteria? No. Patient's initial sepsis screen is negative. Does the patient have a suspected source of infection? No. Patient's initial sepsis screen is negative. Care prior to arrival: None. 15:16 Method Of Arrival: Ambulatory 15:16 Acuity: LILO 3 hj Triage Assessment: 15:57 Headache History: The patient has had previous headaches. General: Appears in no mg2 apparent distress. comfortable, Behavior is calm, cooperative. Pain: Complains of pain in head. 15:59 Pain: Also complains of no other associated symptoms. 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 mg2 Historical: - Allergies: 15:18 Ibuprofen (Hives); hj - Home Meds: 15:58 atorvastatin 10 mg Oral tab [Active]; glipizide 10 mg Oral tab 1 tab once daily mg2 [Active]; Januvia 100 mg Oral tab 1 tab once daily [Active]; lisinopril 2.5 mg Oral tab 1 tab once daily [Active]; metformin 1,000 mg Oral tab 1 tab 2 times per day [Active]; montelukast 10 mg Oral tab 1 tab once daily [Active]; naproxen 500 mg Oral TbEC 1 tab 2 times per day [Active]; - PMHx: 15:18 Diabetes - NIDDM; High Cholesterol; Hypertension; Ovarian cyst; hj - PSHx: 15:18 Cholecystectomy; hj - Immunization history:: Flu vaccine status is unknown. - Social history:: Smoking status: unknown. - Ebola Screening: : No symptoms or risks identified at this time. Screenin:54 Abuse screen: Denies threats or abuse. Denies injuries from another. Nutritional mg2 screening: No deficits noted. Tuberculosis screening: No symptoms or risk factors identified. Fall Risk None identified. Assessment: 15:53 General: Appears in no apparent distress. comfortable, Behavior is calm, cooperative. mg2 Pain: Complains of pain in head Pain does not radiate. Pain currently is 2 out of 10 on a pain scale. Quality of pain is described as aching, Pain began gradually, Is intermittent. Neuro: Level of Consciousness is awake, alert, obeys commands, Oriented to person, place, time, situation, Reports dizziness, headache. Cardiovascular: Capillary refill < 3 seconds Patient's skin is warm and dry. Respiratory: Airway is patent Respiratory effort is even, unlabored, Respiratory pattern is regular, symmetrical. GI: Reports vomiting. : No signs and/or symptoms were reported regarding the genitourinary system. EENT: No signs and/or symptoms were reported regarding the EENT system. Derm: Skin is intact, is healthy with good turgor, Skin is pink, warm \T\ dry. normal. Musculoskeletal: Circulation, motion, and sensation intact. Capillary refill < 3 seconds. Vital Signs: 15:18 BP 121 / 69; Pulse 82; Resp 18; Temp 98.2(O); Pulse Ox 99% on R/A; Weight 101.6 kg; hj Height 5 ft. 4 in. (162.56 cm); Pain 10/10; 15:59 BP 122 / 70; Pulse 80; Resp 18; Temp 98.9(O); Pulse Ox 100% ; Pain 1/10; mg2 15:18 Body Mass Index 38.45 (101.60 kg, 162.56 cm) ED Course: 15:12 Patient arrived in ED. mr 15:13 Out, of Town is Private Physician. mr 15:17 Triage completed. hj 15:18 Arm band placed on right wrist. hj 15:22 Roe Cody MD is Attending Physician. ps1 15:46 Yair Torres, MARIN is Primary Nurse. mg2 15:55 No provider procedures requiring assistance completed. Patient did not have IV access mg2 during this emergency room visit. 15:58 Patient has correct armband on for positive identification. mg2 Administered Medications: No medications were administered Outcome: 15:46 Discharge ordered by . ps1 15:59 Discharged to home ambulatory. mg2 15:59 Condition: stable 15:59 Discharge instructions given to patient, Instructed on discharge instructions, follow up and referral plans. medication usage, Demonstrated understanding of instructions, follow-up care, medications, Prescriptions given X 1. 16:00 Patient left the ED. mg2 Signatures: Graciela Ramirez mr Benjamin Evans RN RN hj Roe Cody MD MD ps1 Yair Torres RN RN mg2 Corrections: (The following items were deleted from the chart) 15:20 15:18 Pulse 82bpm; Resp 18bpm; Pulse Ox 99% RA; Temp 98.2F Oral; 101.6 kg; Height 5 ft. hj 4 in.; BMI: 38.4; Pain 10/10; hj
--- NOTE | 2019-05-27 15:47 | EDPHYS ---
Physician Documentation [facility] Name: Mckenna Haney Age: 34 yrs Sex: Female : 1985 Arrival Date: 05/27/2019 Time: 15:12 Bed 26 Private MD: Out, of [facility] ED Physician Roe Cody HPI: 05/27 15:38 This 34 yrs old Female presents to ER via Ambulatory with complaints of ps1 Dizziness, Headache, Vomiting, Rash. 15:38 I have personally seen this patient multiple times at multiple hospitals for similar ps1 complaints. None of her complaints today are new and have been worked up previously or she has had referrals for continuity of care. She states that she has recurrent dizziness today. Has not started the medroxyprogesterone from [facility] or followed up for the rash that she was evaluated for previously by myself. Additionally has not filled rx or has applied powder or antiperspirant to areas. States that she is out of [facility]. . 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 mg2 Historical: - Allergies: 15:18 Ibuprofen (Hives); hj - Home Meds: 15:58 atorvastatin 10 mg Oral tab [Active]; glipizide 10 mg Oral tab 1 tab once daily mg2 [Active]; Januvia 100 mg Oral tab 1 tab once daily [Active]; lisinopril 2.5 mg Oral tab 1 tab once daily [Active]; metformin 1,000 mg Oral tab 1 tab 2 times per day [Active]; montelukast 10 mg Oral tab 1 tab once daily [Active]; naproxen 500 mg Oral TbEC 1 tab 2 times per day [Active]; - PMHx: 15:18 Diabetes - NIDDM; High Cholesterol; Hypertension; Ovarian cyst; hj - PSHx: 15:18 Cholecystectomy; hj - Immunization history:: Flu vaccine status is unknown. - Social history:: Smoking status: unknown. - Ebola Screening: : No symptoms or risks identified at this time. ROS: 15:38 Constitutional: Negative for fever, chills, and weight loss, Eyes: Negative for injury, ps1 pain, redness, and discharge, Cardiovascular: Negative for chest pain, palpitations, and edema, Respiratory: Negative for shortness of breath, cough, wheezing, and pleuritic chest pain, Abdomen/GI: Negative for abdominal pain, nausea, vomiting, diarrhea, and constipation, MS/Extremity: Negative for injury and deformity. 15:38 Skin: Positive for skin irritation in groin areas bilat. 15:38 Neuro: Positive for dizziness. Exam: 15:38 Constitutional: This is a well developed, well nourished patient who is awake, alert, ps1 and in no acute distress. Head/Face: Normocephalic, atraumatic. Eyes: Pupils equal round and reactive to light, extra-ocular motions intact. Lids and lashes normal. Conjunctiva and sclera are non-icteric and not injected. Chest/axilla: Normal chest wall appearance and motion. Nontender with no deformity. No lesions are appreciated. Cardiovascular: Regular rate and rhythm. No gallops, murmurs, or rubs. Normal PMI, no JVD. No pulse deficits. Respiratory: Lungs have equal breath sounds bilaterally, clear to auscultation and percussion. No rales, rhonchi or wheezes noted. No increased work of breathing, no retractions or nasal flaring. Abdomen/GI: Soft, non-tender, with normal bowel sounds. No distension or tympany. No guarding or rebound. No evidence of tenderness throughout. MS/ Extremity: Pulses equal, no cyanosis. Neurovascular intact. Full, normal range of motion. Neuro: Awake and alert, GCS 15, oriented to person, place, time, and situation. Cranial nerves II-XII grossly intact. Sensory grossly intact. Vital Signs: 15:18 BP 121 / 69; Pulse 82; Resp 18; Temp 98.2(O); Pulse Ox 99% on R/A; Weight 101.6 kg; hj Height 5 ft. 4 in. (162.56 cm); Pain 10/10; 15:59 BP 122 / 70; Pulse 80; Resp 18; Temp 98.9(O); Pulse Ox 100% ; Pain 1/10; mg2 15:18 Body Mass Index 38.45 (101.60 kg, 162.56 cm) hj MDM: 15:38 Data reviewed: vital signs, nurses notes, and as a result, I will discharge patient. ED ps1 course: patient is to follow up outpatient for direction of medical care. Patient needs to not use emergency department for routine complaints. Patient to take medications as prescribed. Use the primary care provider for non-life threatening complaints and specialist for further diagnostic workup for existing complaints that have been worked up. Patient verbalized understanding. Home with meclizine today. . 15:46 Patient medically screened. ps1 Administered Medications: No medications were administered Disposition: 05/27/19 15:46 Discharged to Home. Impression: Dizziness, BPPV. - Condition is Stable. - Discharge Instructions: Medicine Refill at the Emergency Department, Dizziness, [id number]. - Prescriptions for Meclizine 25 mg Oral Tablet - take 1 tablet by ORAL route every 8 hours As needed; 30 tablet. - Medication Reconciliation Form, Thank You Letter, Antibiotic Education, Prescription Opioid Use form. - Follow up: Private Physician; When: 48 Hours; Reason: Further diagnostic work-up, Recheck today's complaints, Re-evaluation by your physician. Follow up: Emergency Department; When: As needed; Reason: for concerns for emergent medical conditions. - Problem is chronic. - Symptoms are unchanged. Signatures: Benjamin Evans RN RN hj Roe Cody MD MD ps1 Yair Torres RN RN mg2 Corrections: (The following items were deleted from the chart) 16:00 15:46 05/27/2019 15:46 Discharged to Home. Impression: Dizziness, BPPV. Condition is mg2 Stable. Forms are Medication Reconciliation Form, Thank You Letter, Antibiotic Education, Prescription Opioid Use. Follow up: Private Physician; When: 48 Hours; Reason: Further diagnostic work-up, Recheck today's complaints, Re-evaluation by your physician. Follow up: Emergency Department; When: As needed; Reason: for concerns for emergent medical conditions. Problem is chronic. Symptoms are unchanged. ps1
== END 2019-05-27 16:00 | disposition home or self-care (01) ==
LOC: ER 15:10
DX: H81.10 Benign paroxysmal vertigo, unspecified ear (principal); I10 Essential (primary) hypertension; E11.9 Type 2 diabetes mellitus without complications; E78.00 Pure hypercholesterolemia, unspecified; Z88.6 Allergy status to analgesic agent
CPT/HCPCS: 99282

== ENCOUNTER 2019-06-06 12:57 | Emergency (ER) | payer OTHER ==
--- OUTSIDE RECORDS SUMMARY | 2019-06-06 12:59 | XMS REPORT | Clinical Summary ---
:1985 Author Organization [employer] Address [address] [place] [address] Care Team Providers Name Role Phone Cm [...] a day. Take 1 tablet 0 Active vit,[id number] by mouth daily. olic 29 mg iron- [...] MD , first trimester (Primary Dx) after 06/05/2018 Immunizations Name Dates Previously Given Next Due [...] Taken Blood Pressure 139/84 11/10/2018 3:44 PM LINUX NETWORK ENGINEER Pulse 95 11/10/2018 3:44 PM LINUX NETWORK ENGINEER Temperature 36.7 C (98 F) 11/10/2018 3:44 PM LINUX NETWORK ENGINEER Respiratory Rate 20 11/10/2018 3:44 PM LINUX NETWORK ENGINEER Oxygen Saturation 100% 11/10/2018 3:44 PM LINUX NETWORK ENGINEER Inhaled Oxygen Concentration - - Weight - - Height 162.6 cm (5' 4") 11/10/2018 3:41 PM LINUX NETWORK ENGINEER Body Mass Index - - Plan of Treatment Health Maintenance Due Date Last Done Comments INFLUENZA VACCINE 06/27/2019 01/09/2018 Procedures Procedure Name Priority Date/Time Associated Comments Diagnosis US STAT 11/10/2018 7:27 Results for this TRANSVAGINAL PM LINUX NETWORK ENGINEER procedure are in the results section. US SINGLE STAT 11/10/2018 7:20 Results for this LESS THAN 14 WEEKS PM LINUX NETWORK ENGINEER procedure are in the results section. ESTIMATED GFR STAT 11/10/2018 5:20 Results for this PM LINUX NETWORK ENGINEER procedure are in the results section. RH TYPE STAT 11/10/2018 5:20 Results for this PM LINUX NETWORK ENGINEER procedure are in the results section. HCG QUANTITATIVE, STAT 11/10/2018 5:20 Results for this SERUM PM LINUX NETWORK ENGINEER procedure are in the results section. URINALYSIS SCREEN AND STAT 11/10/2018 5:20 Results for this MICROSCOPY, WITH PM LINUX NETWORK ENGINEER procedure are in REFLEX TO CULTURE the results section. COMPREHENSIVE STAT 11/10/2018 5:20 Results for this METABOLIC PANEL PM LINUX NETWORK ENGINEER procedure are in the results section. HC COMPLETE BLD COUNT STAT 11/10/2018 5:20 Results for this W/AUTO DIFF PM LINUX NETWORK ENGINEER procedure are in the results section. URINE CULTURE STAT 11/10/2018 5:15 Results for this PM LINUX NETWORK ENGINEER procedure are in the results section. after 06/05/2018 Results US Transvaginal (11/10/2018 7:27 PM LINUX NETWORK ENGINEER) Specimen Narrative Performed At EXAM: US TRANSVAGINAL, US SINGLE LESS THAN 14 WEEKS [facility] CLINICAL INDICATIONS:vaginal spotting TECHNIQUE: Pelvic ultrasound performed.Transabdominal [...] No free fluid seen in the pelvis. [facility]-[id number] Procedure Note [facility], Radiology Results Incoming - 11/10/2018 8:06 PM LINUX NETWORK ENGINEER EXAM: US TRANSVAGINAL, US SINGLE LESS THAN [...] No free fluid seen in the pelvis. [facility]-[id number] Performing Organization Address City/State/Zipcode Phone Number [facility] [address] [place] [address] US Single Less Than 14 Weeks (11/10/2018 7:20 PM LINUX NETWORK ENGINEER) Specimen Narrative Performed At EXAM: US TRANSVAGINAL, US SINGLE LESS THAN 14 WEEKS [facility] CLINICAL INDICATIONS:vaginal spotting TECHNIQUE: Pelvic ultrasound performed.Transabdominal [...] No free fluid seen in the pelvis. [facility]-[id number] Procedure Note Interface, Radiology Results Incoming - 11/10/2018 8:06 PM LINUX NETWORK ENGINEER EXAM: US TRANSVAGINAL, US SINGLE LESS THAN [...] No free fluid seen in the pelvis. [facility]-[id number] Performing Organization Address City/State/Zipcode Phone Number [facility] [address] [place] [address] Urinalysis screen and microscopy, with reflex to culture (11/10/2018 5:20 PM LINUX NETWORK ENGINEER) Specimen site Clean catch [facility] Color, UA Yellow [facility] Appearance, UA Clear [facility] Specific gravity, UA 1.012 1.001 - 1.[address] [facility] pH, UA 5.0 5.0 - 9.[address] [facility] Protein, UA Negative Negative [facility] Glucose, UA Negative Negative [facility] Ketones, UA 1+ (A) Negative [facility] Bilirubin, UA Negative Negative [facility] Blood, UA Moderate (A) Negative [facility] Nitrite, UA Negative Negative [facility] Urobilinogen, UA <2.0 <2.0 E.U./dL [facility] Leukocyte esterase, Negative Negative [facility] Epithelial cells, UA <1 /HPF [facility] Round epithelial <1 0 - 5 /HPF [facility] cells, UA [facility] WBC, UA 1 0 - 4 /HPF [facility] RBC, UA 6 (H) 0 - 5 /HPF [facility] Bacteria, UA None seen None seen [facility] Yeast, UA None seen [facility] Yeast with None seen [facility] pseudohyphae, [facility] Specimen Urine Performing Organization Address City/[facility] Centercode Phone Number [facility] DEPARTMENT OF PATHOLOGY [address] [place] [address] Estimated GFR (11/10/2018 5:20 PM LINUX NETWORK ENGINEER) Estimated GFR >=90 mL/min/1.73 [facility] Comment: [address] G1 >=90 Normal or high G2 60-89Mildly decreased G9d56-64Tzicib to moderately decreased N5h06-16Ooxzmluvnm to severely decreased G4 15-29Severely decreased G5 <15Kidney failure The eGFR was calculated using the Chronic Kidney Disease Epidemiology Collaboration (CKD-EPI) equation. Interpretation is based on recommendations of the National Kidney Foundation-Kidney Disease Outcomes Quality Initiative (NKF-KDOQI) published in 2014. Specimen Plasma specimen Performing Organization Address City/[facility]/Zipcode Phone Number [facility] DEPARTMENT OF PATHOLOGY [address] [place] [address] [place] [address] HOSPITAL RH type (11/10/2018 5:20 PM LINUX NETWORK ENGINEER) Rh type POS [facility] Specimen Blood Performing Organization Address City/[facility]/Zipcode Phone Number [facility] DEPARTMENT OF PATHOLOGY [address] [place] [address] AND [facility] [id number] [place] [address] CBC with platelet and differential (11/10/2018 5:20 PM LINUX NETWORK ENGINEER) WBC 13.5 (H) 4.5 - 11.0 k/uL [facility] RBC 4.27 4.20 - 5.50 [facility] m/uL [facility] HGB 13.6 12.0 - 16.0 [facility] g/dL [facility] HCT 41.1 37.0 - 47.0 % [facility] MCV 96.3 82.0 - 100.[address] [facility] MCH 31.9 27.0 - 34.[address] [facility] MCHC 33.1 31.0 - 37.0 [facility] g/dL [facility] RDW - SD 46.3 37.0 - 55.[address] [facility] MPV 11.0 6.9 - 11.[address] [facility] Platelet count 357 150 - 400 K/uL [facility] Nucleated RBC 0.00 /[address] [facility] Neutrophils 61.0 39.0 - 69.0 % [facility] Lymphocytes 33.7 25.0 - 45.0 % [facility] Monocytes 4.1 0.0 - 10.0 % [facility] Eosinophils 0.5 0.0 - 5.0 % [facility] Basophils 0.3 0.0 - 1.0 % [facility] Immature granulocytes 0.4 0.0 - 1.0 % [facility] Specimen Blood Performing Organization Address City/State/Zipcode Phone Number [facility] DEPARTMENT OF PATHOLOGY [address] [place] [address] AND [facility] [address] hCG quantitative, serum (11/10/2018 5:20 PM LINUX NETWORK ENGINEER) hCG quantitative, 34 (H) 0 - 5 mIU/mL [facility] serum Comment: [place] Reference range for HCG Quant applies to males and non- HOSPITAL females. Post Menopausal 0.0 - 8.1 mIU/mL Specimen Blood Performing Organization Address City/State/Zipcode Phone Number [facility] DEPARTMENT OF PATHOLOGY [id number] [place] [address] Comprehensive metabolic panel (11/10/2018 5:20 PM LINUX NETWORK ENGINEER) Sodium 137 135 - 148 mEq/L [facility] Potassium 3.8 3.5 - 5.0 mEq/L [facility] Chloride 98 98 - 112 mEq/L [facility] CO2 24 24 - 31 mEq/L [facility] Anion gap 15@ANIO 7 - 15 mEq/L [facility] BUN 9 6 - 20 mg/dL [facility] Creatinine 0.54 0.50 - 0.90 [facility] mg/dL [facility] Glucose 100 (H) 65 - 99 mg/dL [facility] Calcium 9.9 8.3 - 10.2 mg/dL [facility] Protein 8.4 (H) 6.3 - 8.3 g/dL [facility] Albumin 4.8 3.5 - 5.0 g/dL [facility] A/G ratio 1.3 0.7 - 3.[address] [facility] Alkaline phosphatase 70 35 - 104 U/L [facility] AST 18 10 - 35 U/L [facility] ALT 23 5 - 50 U/L [facility] Total bilirubin 0.4 0.2 - 1.2 mg/dL [facility] Specimen Plasma specimen Performing Organization Address City/State/Zipcode Phone Number [facility] DEPARTMENT OF PATHOLOGY [id number] [place] [address] Urine culture (11/10/2018 5:15 PM LINUX NETWORK ENGINEER) Urine culture SEE COMMENTComment: [facility] Bacteriuria screen [facility] negative. Specimen Performing Organization Address City/[facility]/Zipcode Phone Number [facility] DEPARTMENT OF PATHOLOGY [address] [place], [place] [address] AND [employer]IC[facility] SERGIO ALLEN [place] [address] [facility] [place] [address] HOSPITAL after 06/05/2018 Insurance Payer Benefit Plan / Subscriber ID Effective Dates Phone Address Type Group MISC MEDICARE MIS MEDICARE xxxxxxxxxxx 2018-Present HMO REPLACEMENT REPLACEMENT [facility] xxxxxxxxx 2017-Presen HMO [place] t Advance Directives Patient has advance care planning documents on file. For more information, please contact:Sergio [id number] [place] [address]
--- OUTSIDE RECORDS SUMMARY | 2019-06-06 13:00 | XMS REPORT ---
[...] End Status Dosage System Date Date Atorvastatin [facility] 21865415312 10 MG Orally Active 1 tablet Calcium Once a day Meclizine HCl [facility] 30107138437 25 MG Orally April Active 1 tablet as bid prn 07, needed 2019 Alogliptin [facility] 02249840402 25 MG Orally April Active 1 tablet Benzoate Once a day for 28, diabetes 2019 Amoxicillin [facility] 43130909149 500 MG Orally Active 1 capsule Twice a day Vitamin D [facility] 61336947683 2000 UNIT Active 1 tablet Orally Once a day Orphenadrine [facility] [address]-11 100 MG Orally Active as directed Citrate ER Lisinopril [facility] 81727720997 5 MG Orally Active 1 tablet Once a day GlipiZIDE XL [facility] 05215010692 5 MG Orally Active 1 tablet with Once a day food Januvia [facility] 13574689100 100 MG Orally Inactive 1 tablet Once a day Loratadine [facility] 58849130638 10 MG Orally Active 1 tablet Once a day BusPIRone HCl [facility] 34585963625 7.5 MG Orally April 18, Active 1 tablet as Twice a day 2018 needed for anxiety Triamcinolone [facility] 19391940960 0.1 % April Active 1 application Acetonide , to affected Twice a day 2019 areas Results No Known Results Summary Purpose eClinicalWorks Submission
--- OUTSIDE RECORDS SUMMARY | 2019-06-06 13:00 | XMS REPORT | Continuity of Care Document ---
:1985 Author Organization [facility] [place] Information [employer] Care Team Providers Name Role Phone [facility] [place] [employer] Unavailable Unavailable Problems Problem Status Onset Classification Date Comments Source Date Reported Unspecified 03/16/2018 [place] otitis externa, 8 right ear Otitis externa 03/16/2018 [place] of right ear 8 Cough 03/16/2018 [place] 8 EAR PAIN/ Active [facility] 8 [place] BLEEDING, 3WKS Active [facility] 7 [place] Medications Medication Details Route Status Patient Ordering Order Source Instructions Provider Date tramadol 50 mg, Inactive hydrochloride 50 Route: PO, 018 [place] MG Oral Tablet Drug form: TAB, ONCE, Dosing Weight 107.273, kg, Priority: STAT, Start date: 12/08/17 23:51:00 EXTERNAL GRINDER TENDER, Stop date: 12/08/17 23:51:00 EXTERNAL GRINDER TENDER 200 ACTUAT 2 puff, Active Albuterol 0.09 INHALER, 018 [place] MG/ACTUAT Q4H, PRN Metered Dose wheezing, Inhaler [ProAir coughing, HFA] or shortness of breath, # 1 ea, 1 Refill(s) benzonatate 200 200 mg=1 No Longer MH MG Oral Capsule cap, PO, Active 018 [place] [Tessalon] TID, PRN as needed for cough, X 7 day, # 21 cap, 0 Refill(s) Ciprofloxacin 3 4 drp, No Longer MH MG/ML / RIGHT EAR, Active 018 [place] Dexamethasone 1 BID, X 7 MG/ML Otic day, # 1 Suspension btl, 0 [Ciprodex] Refill(s) Albuterol 0.833 3 ml, Inactive MH MG/ML / Route: NEB, 018 [place] Ipratropium Drug Form: [place] 0.167 SOLN, MG/ML Inhalant Dosing Solution Weight [DuoNeb] 107.273, kg, ONCE, Start date: 12/08/17 21:31:00 EXTERNAL GRINDER TENDER, Stop date: 12/08/17 21:31:00 CSTNotes: (Same as: Duoneb) Allergies, Adverse Reactions, Alerts Substance Category Reaction Severity Reaction Status Date Comments Source type Reported Motrin Assertion Drug Active allergy [place] Immunizations No Data Provided for This Section Results No Data Provided for This Section Pathology Reports No Data Provided for This Section Diagnostic Reports Report Value Date Source Chest 2 views DX EXAM: XR CHEST 2 VIEW 12/08/2017 [facility] DATE: 12/08/2017 9:31 PM EXTERNAL GRINDER TENDER INDICATION: Cough. COMPARISON: 04/24/2010. TECHNIQUE: PA and lateral views of the chest were obtained. FINDINGS: No focal consolidation or pneumothorax is identified. The cardiomediastinal silhouette is within normal limits. The costophrenic recesses are sharp and without effusion. No acute osseous abnormality is noted. IMPRESSION: No acute cardiopulmonary abnormality. SL: [id number] Consultation Notes No Data Provided for This Section Discharge Summaries No Data Provided for This Section History and Physicals No Data Provided for This Section Vital Signs Vital Sign Value Date Comments Source Respitory Rate 18 12/09/2017 [facility] Systolic (mm Hg) 146 12/09/2017 [facility] Diastolic (mm Hg) 95 12/09/2017 [facility] Heart Rate 109 12/09/2017 [facility] Respitory Rate 18 12/09/2017 [facility] Weight 107.273 12/09/2017 [facility] Heart Rate 100 12/09/2017 [facility] Systolic (mm Hg) 141 12/09/2017 [facility] Diastolic (mm Hg) 79 12/09/2017 [facility] Respitory Rate 20 12/09/2017 [facility] Temperature Oral (F) 98.9 F 12/09/2017 [facility] Weight 103.636 01/08/2017 [facility] BMI Calculated 39.22 01/08/2017 [facility] Height 162.56 cm 01/08/2017 [facility] Systolic (mm Hg) 134 01/08/2017 [facility] Diastolic (mm Hg) 93 01/08/2017 [facility] Temperature Oral (F) 98 F 01/08/2017 [facility] Heart Rate 102 01/08/2017 [facility] [place] Respitory Rate 18 01/08/2017 [facility] Encounters Location Location Encounter Encounter Reason Attending ADM DC Status Source Details Type Number For Provider Date Date Visit [facility] Emergency [id number] Antolin Olearymariah 01/08 01/08 [place] /2016 [facility] [id number] Umm 12/09 12/09 [place] Duran /2017 [facility] Procedures No Data Provided for This Section Assessment and Plan No Data Provided for This Section Plan of Care No Data Provided for This Section Social History Social History Date Source Social History TypeResponse 12/09/2017 [facility] Smoking Status Never smoker; Concerns about tobacco use in household: No; Exposure to Tobacco Smoke None; Cigarette Smoking Last 365 Days No; Reg Smoking Cessation Counseling No entered on: 12/08/17 Family History No Data Provided for This Section Advance Directives No Data Provided for This Section Functional Status No Data Provided for This Section
--- OUTSIDE RECORDS SUMMARY | 2019-06-06 13:00 | XMS REPORT ---
:1985 [facility] [address] [place] [address] [address] Care Team Providers Name Role Phone Unavailable [...]
--- OUTSIDE RECORDS SUMMARY | 2019-06-06 13:00 | XMS REPORT ---
:1985 Author Organization [employer] Care Team Providers Name Role Phone Klarissa Delgado Provider Role Unavailable Allergies No Known Allergies Problems Problem Type Condition Code Onset Dates Condition Status Problem Anxiety F41.9 Active Problem Right upper quadrant pain R10.11 Active Problem Difficulty sleeping G47.9 Active Problem Dizziness R42 Active Problem Depression screening Z13.31 Active Problem Rash and nonspecific skin eruption R21 [...] allergies J30.2 Active Problem Diabetes E11.9 Active Problem Sinus problem J34.9 Active Problem Essential hypertension I10 Active Problem Hypercholesterolemia E78.00 Active Problem Asthma J45.909 Active Medications No Known Medications Results No Known Results Summary Purpose eClinicalWorks Submission
--- OUTSIDE RECORDS SUMMARY | 2019-06-06 13:00 | XMS REPORT ---
[...] Start Date End Date Status Dosage Vernsharitahayde [facility] 68456946180 100 MG Orally Active 1 tablet Once a day Results No Known Results Summary Purpose eClinicalWorks Submission
--- OUTSIDE RECORDS SUMMARY | 2019-06-06 13:01 | XMS REPORT ---
:1985 Author Organization [employer] Care Team Providers Name Role Phone Danny Klarissa Provider Role Unavailable Allergies, Adverse Reactions, Alerts Substance Reaction Event Type N.K.D.A. Info Not Available Non Drug Allergy Problems Problem Type Condition Code Onset Dates Condition Status Assessment Uncontrolled type 2 diabetes E11.65 Active mellitus with hyperglycemia Assessment Frequent headaches R51 Active Assessment Dizziness R42 Active Assessment Generalized weakness R53.1 Active Assessment Shortness of breath R06.02 Active Assessment Epigastric pain R10.13 Active Problem Ingrown toenail of right foot L60.0 Active Problem Uncontrolled type 2 diabetes E11.65 Active mellitus with hyperglycemia Problem Left ovarian cyst N83.202 Active Problem Uterine bleeding N93.9 Active Problem High blood pressure I10 Active Problem Obesity (BMI 30-39.9) E66.9 Active Problem Dizziness R42 Active Problem Rash and nonspecific skin eruption R21 Active Problem Epigastric pain R10.13 Active Problem Generalized weakness R53.1 Active Problem Hypercholesterolemia E78.00 Active Problem Sinus problem J34.9 Active Problem Shortness of breath R06.02 Active Problem Migraine G43.909 Active Problem Allergic rhinitis, unspecified J30.9 Active seasonality, unspecified trigger Problem Depression screening Z13.31 Active Problem Frequent headaches R51 Active Problem Daily headache R51 Active Problem Essential hypertension I10 Active Problem Asthma J45.909 Active Problem Seasonal allergies J30.2 Active Problem Diabetes E11.9 Active Problem Difficulty sleeping G47.9 Active Problem Dietary surveillance and counseling Z71.3 Active Problem Anxiety F41.9 Active Problem Right upper quadrant pain R10.11 Active Medications Medication Code Code Instructions Start End Status Dosage System Date Date Atorvastatin ND 59769712763 10 MG Orally Active 1 tablet Calcium Once a day Lisinopril ND 22262936511 5 MG Orally Active 1 tablet Once a day Dicyclomine HCl ND 66382212519 20 MG Orally May Active 1 tablet as Four times a 09, 19, needed for day 2018 2018 stomach pain Loratadine ND 38366245080 10 MG Orally Active 1 tablet Once a day Triamcinolone [facility] 64336222522 0.1 % April Active 1 application Acetonide Externally 28, to affected Twice a day 2019 areas [address]ipiZIDE XL [facility] 00177554678 5 MG Orally Active 1 tablet with Once a day food Pioglitazone HCl [facility] 05075734953 15 MG Orally May Active 1 tablet Once a day for , diabetes [address] [facility] 47807328910 500 MG Orally Active 1 capsule Twice a day Orphenadrine [facility] [address]-21 100 MG Orally Active as directed Citrate ER Alogliptin [facility] 78397491022 25 MG Orally April Active 1 tablet Benzoate Once a day for , diabetes [address] [facility] 58362737127 2000 UNIT Active 1 tablet Orally Once a day BusPIRone HCl [facility] 57688646515 7.5 MG Orally April 18, Active 1 tablet as Twice a day 2019 needed for anxiety Meclizine HCl [facility] 45907852019 25 MG Orally April Active 1 tablet as Twice daily , needed for 2019 dizziness Results No Known Results Summary Purpose eClinicalWorks Submission
--- OUTSIDE RECORDS SUMMARY | 2019-06-06 13:01 | XMS REPORT ---
:1985 Author Organization [employer]Clinical[employer] Care Team Providers Name Role Phone Danny Klarissa Provider Role Unavailable Allergies, Adverse Reactions, Alerts Substance Reaction Event Type N.K.D.A. Info Not Available Non Drug Allergy Problems Problem Type Condition Code Onset Dates Condition Status Assessment Uncontrolled type 2 diabetes E11.65 Active mellitus with hyperglycemia Assessment Allergic rhinitis, unspecified J30.9 Active seasonality, unspecified trigger Assessment Follow-up exam Z09 Active Assessment Daily headache R51 Active Assessment Dizziness R42 Active Problem Ingrown toenail of right foot [...] Start End Status Dosage System Date Date BusPIRone HCl [facility] 56142566069 7.5 MG Orally April 18, Active 1 tablet as Twice a day 2019 needed for anxiety Vitamin D ND 45687331309 2000 UNIT Active 1 tablet Orally Once a day Atorvastatin [facility] 35387718035 10 MG Orally Active 1 tablet Calcium Once a day Orphenadrine [facility] [address]-10 100 MG Orally Active as directed Citrate ER Meclizine HCl [facility] 23229398847 25 MG Orally April Active 1 tablet as Twice daily 07, needed for 2019 dizziness Lisinopril [facility] 45871153010 5 MG Orally Active 1 tablet Once a day Pioglitazone HCl [facility] 60858906961 15 MG Orally May Active 1 tablet Once a day for , diabetes 2019 Amoxicillin [facility] 89242897505 500 MG Orally Active 1 capsule Twice a day Loratadine [facility] 20423997869 10 MG Orally Active 1 tablet Once a day GlipiZIDE XL [facility] 39796096005 5 MG Orally Active 1 tablet with Once a day food Triamcinolone [facility] 44689764253 0.1 % April Active 1 application Acetonide Externally 28, to affected Twice a day 2019 areas Alogliptin [facility] 82132780587 25 MG Orally April Active 1 tablet Benzoate Once a day for , diabetes 2019 Results No Known Results Summary Purpose eClinicalWorks Submission
[2019-06-06 14:16] LABS: Urine Blood 2+ (NEG); Urine Glucose NEGATIVE (NEG); Urine Protein NEGATIVE (NEG)
[2019-06-06 14:34] LABS: Absolute Lymphocytes (CBC) 2.8 K/uL (0.7-4.9); Basophils % 0.7 % (0-1.3); Eosinophils % 0.7 % (0-4.4); Hematocrit 39.3 % (36.0-45.0); Lymphocytes % 28.6 % (15.3-44.8); Monocytes % 4.9 % (3.3-12.3); RBC Red Blood Cell Count 3.97 M/uL (3.86-4.86)
[2019-06-06 14:54] LABS: Urine Bacteria NONE SEEN /HPF (<20); Urine Culture Reflex Order NOT NEEDED; Urine RBC NONE SEEN /HPF (NONE SEEN)
--- NOTE | 2019-06-06 15:05 | EDPHYS ---
Physician Documentation [facility] Name: Mckenna Haney Age: 34 yrs Sex: Female : 1985 Arrival Date: 06/06/2019 Time: 13:01 Bed 8 Private MD: Klarissa Delgado ED Physician David Gabriel HPI: 06/06 15:01 This 34 yrs old Female presents to ER via Ambulatory with complaints of snw Constipation, Fever, General Weakness, Nausea/Vomiting. 15:01 Onset: The symptoms/episode began/occurred gradually. Associated signs and symptoms: snw The patient has no apparent associated signs or symptoms. Modifying factors: The patient symptoms are alleviated by nothing. The patient has experienced similar episodes in the past, multiple times. recent removal of bilateral great toenails, has seen PCP regarding headaches, . SNOW REMOVAL/PLOWING: 13:28 LMP 05/07/2019 ph Historical: - Allergies: 13:28 Ibuprofen (Hives); ph - PMHx: 13:28 Diabetes - NIDDM; High Cholesterol; Hypertension; Ovarian cyst; ph - PSHx: 13:28 Cholecystectomy; ph - Immunization history:: Adult Immunizations not up to date. - Social history:: Smoking status: Patient/guardian denies using tobacco. - Ebola Screening: : Patient negative for fever greater than or equal to 101.5 degrees Fahrenheit, and additional compatible Ebola Virus Disease symptoms Patient denies exposure to infectious person Patient denies travel to an Ebola-affected area in the 21 days before illness onset No symptoms or risks identified at this time. ROS: 14:55 Eyes: Negative for injury, pain, redness, and discharge, ENT: Negative for injury, snw pain, and discharge, Neck: Negative for injury, pain, and swelling, Cardiovascular: Negative for chest pain, palpitations, and edema, Respiratory: Negative for shortness of breath, cough, wheezing, and pleuritic chest pain, Back: Negative for injury and pain, : Negative for injury, bleeding, discharge, and swelling, MS/Extremity: Negative for injury and deformity, Skin: Negative for injury, rash, and discoloration. 14:55 Constitutional: Positive for daily frontal headache x 1 month, epigastric pain and constipation x 3 days. 14:55 Abdomen/GI: Positive for abdominal pain, vomiting, constipation. 14:55 Neuro: Positive for headache, of the forehead. Exam: 14:55 Constitutional: This is a well developed, well nourished patient who is awake, alert, snw and in no acute distress. Head/Face: Normocephalic, atraumatic. Eyes: Pupils equal round and reactive to light, extra-ocular motions intact. Lids and lashes normal. Conjunctiva and sclera are non-icteric and not injected. Cornea within normal limits. Periorbital areas with no swelling, redness, or edema. ENT: Nares patent. No nasal discharge, no septal abnormalities noted. Tympanic membranes are normal and external auditory canals are clear. Oropharynx with no redness, swelling, or masses, exudates, or evidence of obstruction, uvula midline. Mucous membranes moist. Neck: Trachea midline, no thyromegaly or masses palpated, and no cervical lymphadenopathy. Supple, full range of motion without nuchal rigidity, or vertebral point tenderness. No Meningismus. Chest/axilla: Normal chest wall appearance and motion. Nontender with no deformity. No lesions are appreciated. Cardiovascular: Regular rate and rhythm with a normal S1 and S2. No gallops, murmurs, or rubs. Normal PMI, no JVD. No pulse deficits. Respiratory: Lungs have equal breath sounds bilaterally, clear to auscultation and percussion. No rales, rhonchi or wheezes noted. No increased work of breathing, no retractions or nasal flaring. Abdomen/GI: Soft, non-tender, with normal bowel sounds. No distension or tympany. No guarding or rebound. No evidence of tenderness throughout. Back: No spinal tenderness. No costovertebral tenderness. Full range of motion. Skin: Warm, dry with normal turgor. Normal color with no rashes, no lesions, and no evidence of cellulitis. MS/ Extremity: Pulses equal, no cyanosis. Neurovascular intact. Full, normal range of motion. Neuro: Awake and alert, GCS 15, oriented to person, place, time, and situation. Cranial nerves II-XII grossly intact. Motor strength 5/5 in all extremities. Sensory grossly intact. Cerebellar exam normal. Normal gait. Psych: Awake, alert, with orientation to person, place and time. Behavior, mood, and affect are within normal limits. Vital Signs: 13:28 BP 134 / 69; Pulse 72; Resp 18; Temp 98.2; Pulse Ox 98% on R/A; Weight 102.06 kg; ph Height 4 ft. 11 in. (149.86 cm); 13:28 Body Mass Index 45.44 (102.06 kg, 149.86 cm) ph MDM: 14:28 Patient medically screened. snw 15:05 Data reviewed: vital signs, nurses notes. Data interpreted: Pulse oximetry: on room air snw is 98 %. Interpretation: normal. Counseling: I had a detailed discussion with the patient and/or guardian regarding: the historical points, exam findings, and any diagnostic results supporting the discharge/admit diagnosis, lab results, the need for outpatient follow up, to return to the emergency department if symptoms worsen or persist or if there are any questions or concerns that arise at home. Special discussion: Based on the patient's Hx, exam, and Dx evaluation, there is no indication for emergent surgery or inpatient Tx. It is understood by the patient/guardian that if the Sx's persist or worsen they need to return immediately for re-evaluation. Based on the history and exam findings, there is no indication for further emergent testing or inpatient evaluation. I discussed with the patient/guardian the need to see the primary care provider for further evaluation of the symptoms. 06/06 14:03 Order name: Basic Metabolic Panel; Complete Time: 15:29 sv 06/06 14:03 Order name: CBC with Diff; Complete Time: 14:37 sv 06/06 14:03 Order name: Creatinine for Radiology; Complete Time: 15:27 sv 06/06 14:03 Order name: Hepatic Function; Complete Time: 15:29 sv 06/06 14:03 Order name: Lipase; Complete Time: 15:29 sv 06/06 14:05 Order name: Strep; Complete Time: 14:47 snw 06/06 14:03 Order name: IV Saline Lock; Complete Time: 14:20 sv 06/06 14:05 Order name: Urine Culture snw 06/06 14:05 Order name: Urine Microscopic Only; Complete Time: 14:55 snw 06/06 14:09 Order name: Urine Dipstick--Ancillary (enter results); Complete Time: 14:18 ag 06/06 14:09 Order name: Urine --Ancillary (enter results); Complete Time: 14:18 ag 06/06 14:46 Order name: Throat Culture EDMS 06/06 14:03 Order name: Labs collected and sent; Complete Time: 14:20 sv 06/06 14:05 Order name: Urine Test (obtain specimen); Complete Time: 14:24 snw 06/06 14:05 Order name: Urine Dipstick-Ancillary (obtain specimen); Complete Time: 14:24 snw 06/06 14:37 Order name: Labs - recollect needed; Complete Time: 14:53 ag Administered Medications: 16:00 Drug: Magnesium Citrate Liquid 300 ml Route: PO; sv 16:00 Follow up: Response: Medication administered at discharge. sv 16:21 Not Given (Physician Discretion): NS 0.9% 1000 ml IV at 1 bolus Per protocol; 1000 mL sv bolus Disposition: 18:57 Co-signature as Attending Physician, David Gabriel MD I agree with the assessment and kdr plan of care. Disposition: 06/06/19 15:04 Discharged to Home. Impression: Constipation, Tension-type headache, unspecified. - Condition is Stable. - Discharge Instructions: Constipation, Adult, High-Fiber Diet, Tension Headache, Adult, Rehydration, Adult. - Prescriptions for Miralax 17 gram/dose Oral - take 1 packet by ORAL route once daily dilute powder in 8 ounces of water or juice; 1 box. - Medication Reconciliation Form, Thank You Letter, Antibiotic Education, Prescription Opioid Use form. - Follow up: Klarissa Delgado MD; When: 1 - 2 days; Reason: Recheck today's complaints, Continuance of care, Re-evaluation by your physician. Follow up: Emergency Department; When: As needed; Reason: Worsening of condition. Signatures: Dispatcher [employer] [facility] Treasure Stapleton RN RN sv Gay, Steven, RN RN sg Rittger, Kevin, MD MD kdr Therrien, Shelly, REPULPING SUPERVISOR-C REPULPING SUPERVISOR-Sammw Maria Dolores Wilkes Patricia RN RN ph Corrections: (The following items were deleted from the chart) 16:22 15:04 06/06/2019 15:04 Discharged to Home. Impression: Constipation; Tension-type sv headache, unspecified. Condition is Stable. Forms are Medication Reconciliation Form, Thank You Letter, Antibiotic Education, Prescription Opioid Use. Follow up: Klarissa Delgado; When: 1 - 2 days; Reason: Recheck today's complaints, Continuance of care, Re-evaluation by your physician. Follow up: Emergency Department; When: As needed; Reason: Worsening of condition. snw
--- NOTE | 2019-06-06 15:05 | ER ---
Nurse's Notes [facility] Name: Mckenna Haney Age: 34 yrs Sex: Female : 1985 Arrival Date: 06/06/2019 Time: 13:01 Bed 8 Private MD: Klarissa Deglado Diagnosis: Constipation;Tension-type headache, unspecified Presentation: 06/06 13:26 Presenting complaint: Patient states: N/V and constipation x 4 days, reports taking ph Duloclax and having small BM yesterday, also reports chills and fever TMAX 102.8, also reports headache x 1 month. Transition of care: patient was not received from another setting of care. Onset of symptoms was June 06, 2019. Risk Assessment: Do you want to hurt yourself or someone else?. Initial Sepsis Screen: Does the patient meet any 2 criteria? No. Patient's initial sepsis screen is negative. Does the patient have a suspected source of infection? No. Patient's initial sepsis screen is negative. Care prior to arrival: None. 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 - Social history:: Smoking status: Patient/guardian denies using tobacco. - Ebola Screening: : Patient negative for fever greater than or equal to 101.5 degrees Fahrenheit, and additional compatible Ebola Virus Disease symptoms Patient denies exposure to infectious person Patient denies travel to an Ebola-affected area in the 21 days before illness onset No symptoms or risks identified at this time. Screenin:50 Abuse screen: Denies threats or abuse. Denies injuries from another. Nutritional sg screening: No deficits noted. Tuberculosis screening: No symptoms or risk factors identified. Never had TB. Fall Risk None identified. Assessment: 13:45 General: Appears in no apparent distress. well groomed, well developed, well nourished, sg Behavior is calm, cooperative, appropriate for age. Pain: Complains of pain in forehead Quality of pain is described as tender, throbbing. Neuro: Level of Consciousness is awake, alert, obeys commands, Oriented to person, place, time, In[employer] are equal bilaterally Moves all extremities. Gait is steady, Speech is normal, Facial symmetry appears normal. Neuro: Reports general weakness. Cardiovascular: Capillary refill is brisk in bilateral fingers Patient's skin is warm and dry. Chest pain is denied. Respiratory: Airway is patent Respiratory effort is even, unlabored, Respiratory pattern is regular, symmetrical. GI: Abdomen is round obese, Bowel sounds present X 4 quads. Abd is soft and non tender X 4 quads. GI: Reports constipation, tolerance of fluids, tolerance of food. : No signs and/or symptoms were reported regarding the genitourinary system. EENT: No signs and/or symptoms were reported regarding the EENT system. Derm: Skin is pink, warm \T\ dry. Musculoskeletal: No signs and/or symptoms reported regarding the musculoskeletal system. 14:15 General: Appears in no apparent distress. comfortable, well developed, Behavior is sv calm, cooperative, appropriate for age. Pain: Complains of pain in forehead, right cheek, left cheek and abdomen Quality of pain is described as pressure, tender, throbbing. Neuro: Level of Consciousness is awake, alert, obeys commands, Oriented to person, place, time, situation, Moves all extremities. Full function Gait is steady, Speech is normal. Cardiovascular: Patient's skin is warm and dry. Chest pain is denied. Respiratory: Respiratory effort is even, unlabored, Respiratory pattern is regular, symmetrical. GI: Abdomen is obese, Abd is soft and non tender X 4 quads. Reports constipation, tolerance of fluids, tolerance of food. Derm: Skin is pink, warm \T\ dry. Musculoskeletal: Range of motion: intact in all extremities. 15:00 Reassessment: Patient appears in no apparent distress at this time. No changes from sv previously documented assessment. Patient and/or family updated on plan of care and expected duration. Pain level reassessed. Patient is alert, oriented x 3, equal unlabored respirations, skin warm/dry/pink. 16:00 Reassessment: Patient appears in no apparent distress at this time. No changes from sv previously documented assessment. Patient and/or family updated on plan of care and expected duration. Pain level reassessed. Patient is alert, oriented x 3, equal unlabored respirations, skin warm/dry/pink. Vital Signs: 13:28 BP 134 / 69; Pulse 72; Resp 18; Temp 98.2; Pulse Ox 98% on R/A; Weight 102.06 kg; ph Height 4 ft. 11 in. (149.86 cm); 13:28 Body Mass Index 45.44 (102.06 kg, 149.86 cm) ph ED Course: 13:01 Patient arrived in ED. dp 13:02 Klarissa Delgado MD is Private Physician. dp 13:27 Triage completed. ph 13:29 Arm band placed on. ph 13:55 Patient has correct armband on for positive identification. Bed in low position. Call sg light in reach. Side rails up X2. short order fry cook on. Pulse ox on. NIBP on. Head of bed elevated. 14:02 Treasure Stapleton RN is Primary Nurse. sv 14:04 Sabrina Pedro[facility]-C [facility]. snw 14:04 David Gabriel MD is Attending Physician. snw 14:15 Initial lab(s) drawn, by ut, sent to lab. Strep swab sent to lab. Inserted saline lock: sv 20 gauge in right antecubital area, using aseptic technique. Blood collected. Flushed right antecubital with 5 ml normal saline. 15:04 Klarissa Delgado MD is Referral Physician. snw 16:15 No provider procedures requiring assistance completed. IV discontinued, intact, sg bleeding controlled, No redness/swelling at site. Pressure dressing applied. Administered Medications: 16:00 Drug: Magnesium Citrate Liquid 300 ml Route: PO; sv 16:00 Follow up: Response: Medication administered at discharge. sv 16:21 Not Given (Physician Discretion): NS 0.9% 1000 ml IV at 1 bolus Per protocol; 1000 mL sv bolus Outcome: 15:04 Discharge ordered by . snw 16:00 Discharged to home ambulatory. sv 16:00 Condition: stable 16:00 Discharge instructions given to patient, Instructed on discharge instructions, follow up and referral plans. medication usage, Demonstrated understanding of instructions, follow-up care, medications, Prescriptions given X 1. 16:22 Patient left the ED. sv Signatures: Treasure Stapleton RN RN Shakeel Glasgow RN RN Sabrina Pedroza FNP-C MANAGER ACUTE-Cs[facility] Tawnya Ventura, RN RN ph Denton Walsh Corrections: (The following items were deleted from the chart) 14:20 14:15 Initial lab(s) drawn, by me, sent to lab. sv sv 18:51 01:00 Discharged to home ambulatory, sv sv 18:51 01:00 Condition: stable sv sv 18:51 01:00 Discharge instructions given to patient, Instructed on discharge instructions, sv follow up and referral plans. medication usage, Demonstrated understanding of instructions, follow-up care, medications, Prescriptions given X 1, sv
[2019-06-06] MEDS ORDERED: NA CHLORIDE 0.9% 0 ML ONE (15:20)
[2019-06-06] MEDS ORDERED: MAGNESIUM CITRATE 300 ML BOT ONE (15:20)
[2019-06-06 15:28] LABS: ALT/SGPT 21 U/L (12-78); AST/SGOT 8 U/L (15-37); Albumin 3.8 g/dL (3.4-5.0); Alkaline Phosphatase 62 U/L (45-117); BUN Blood Urea Nitrogen 9 mg/dL (7-18); Bicarbonate 27 mmol/L (21-32); Bilirubin Direct 0.1 mg/dL (0-0.2); Bilirubin Total 0.5 mg/dL (0.2-1.0); Glucose Level 83 mg/dL (74-106); Lipase 103 U/L (73-393); Potassium 3.4 mmol/L (3.5-5.1); Protein, Total 7.7 g/dL (6.4-8.2); Sodium Level 142 mmol/L (136-145)
== END 2019-06-06 16:22 | disposition home or self-care (01) ==
LOC: ER 12:57
DX: K59.00 Constipation, unspecified (principal); I10 Essential (primary) hypertension; Z88.6 Allergy status to analgesic agent
CPT/HCPCS: 36415; 80048; 80076; 81003; 81015; 81025; 82962; 83690; 85025; 87070; 87081; 87086; 87088; 99284; J7030

== ENCOUNTER 2019-06-11 12:04 | Emergency (ER) | payer OTHER ==
--- OUTSIDE RECORDS SUMMARY | 2019-06-11 12:05 | XMS REPORT | Clinical Summary ---
:1985 Author Organization [facility] Address [address] [place] [address] Care Team Providers Name Role Phone Cm [...] a day. Take 1 tablet 0 Active vit,[id number] by mouth daily. olic 29 mg iron- [...] MD , first trimester (Primary Dx) after 06/10/2018 Immunizations Name Dates Previously Given Next Due [...] Taken Blood Pressure 139/84 11/10/2018 3:44 PM [facility] Pulse 95 11/10/2018 3:44 PM [facility] Temperature 36.7 C (98 F) 11/10/2018 3:44 PM [facility] Respiratory Rate 20 11/10/2018 3:44 PM [facility] Oxygen Saturation 100% 11/10/2018 3:44 PM [facility] Inhaled Oxygen Concentration - - Weight - - Height 162.6 cm (5' 4") 11/10/2018 3:41 PM [facility] Body Mass Index - - Plan of Treatment Health Maintenance Due Date Last Done Comments INFLUENZA VACCINE 06/27/2019 01/09/2018 Procedures Procedure Name Priority Date/Time Associated Comments Diagnosis US STAT 11/10/2018 7:27 Results for this TRANSVAGINAL PM [facility] procedure are in the results section. US SINGLE STAT 11/10/2018 7:20 Results for this LESS THAN 14 WEEKS PM [facility] procedure are in the results section. ESTIMATED GFR STAT 11/10/2018 5:20 Results for this PM [facility] procedure are in the results section. RH TYPE STAT 11/10/2018 5:20 Results for this PM [facility] procedure are in the results section. HCG QUANTITATIVE, STAT 11/10/2018 5:20 Results for this SERUM [facility] procedure are in the results section. URINALYSIS SCREEN AND STAT 11/10/2018 5:20 Results for this MICROSCOPY, WITH PM [facility] procedure are in REFLEX TO CULTURE the results section. COMPREHENSIVE STAT 11/10/2018 5:20 Results for this METABOLIC PANEL PM [facility] procedure are in the results section. HC COMPLETE BLD COUNT STAT 11/10/2018 5:20 Results for this W/AUTO DIFF PM [facility] procedure are in the results section. URINE CULTURE STAT 11/10/2018 5:15 Results for this PM [facility] procedure are in the results section. after 06/10/2018 Results US Transvaginal (11/10/2018 7:27 PM [facility] CL[facility]) Specimen Narrative Performed At EXAM: US TRANSVAGINAL, US SINGLE LESS THAN 14 WEEKS [facility] CLINICAL INDICATIONS:vaginal spotting TECHNIQUE: Pelvic ultrasound [...] No free fluid seen in the pelvis. [id number] Procedure Note [facility], Radiology Results Incoming - 11/10/2018 8:06 PM [facility] CL[facility] EXAM: US TRANSVAGINAL, US SINGLE LESS THAN [...] No free fluid seen in the pelvis. [id number] Performing Organization Address City/State/Zipcode Phone Number [facility] [address] [place] [address] US Single Less Than 14 Weeks (11/10/2018 7:20 PM [facility]OSPITAL [facility] CLERK) Specimen Narrative Performed At EXAM: US TRANSVAGINAL, US SINGLE LESS THAN 14 WEEKS [facility] CLINICAL INDICATIONS:vaginal spotting TECHNIQUE: Pelvic ultrasound [...] No free fluid seen in the pelvis. [id number] Procedure Note Interface, Radiology Results Incoming - 11/10/2018 8:06 PM [facility] CLERK EXAM: US TRANSVAGINAL, US SINGLE LESS THAN [...] No free fluid seen in the pelvis. [id number] Performing Organization Address City/State/Zipcode Phone Number [facility] [address] [place] [address] Urinalysis screen and microscopy, with reflex to culture (11/10/2018 5:20 PM [facility] CLERK) Specimen site Clean catch [facility] Color, UA Yellow [facility] Appearance, UA Clear [facility] Specific gravity, UA 1.012 1.001 - 1.030 [facility] pH, UA 5.0 5.0 - 9.0 [facility] Protein, UA Negative Negative [facility] Glucose, UA Negative Negative [facility] Ketones, UA 1+ (A) Negative [facility] Bilirubin, UA Negative Negative [facility] Blood, UA Moderate (A) Negative [facility] Nitrite, UA Negative Negative [facility] Urobilinogen, UA <2.0 <2.0 E.U./dL [facility] Leukocyte esterase, Negative Negative [facility] Epithelial cells, UA <1 /HPF [facility] Round epithelial <1 0 - 5 /HPF [facility] cells, UA [facility] WBC, UA 1 0 - 4 /HPF [facility] RBC, UA 6 (H) 0 - 5 /HPF [facility] Bacteria, UA None seen None seen [facility] Yeast, UA None seen [facility] Yeast with None seen [facility] pseudohyphae, [facility] Specimen Urine Performing Organization Address City/[facility] Phone Number [facility] DEPARTMENT OF PATHOLOGY [address] [place] [address] Estimated GFR (11/10/2018 5:20 PM HOSPITAL [facility]ARD CLERK) Estimated GFR >=90 mL/min/1.73 [facility] Comment: [address] G1 >=90 Normal or high G2 60-89Mildly decreased S3k21-75Cerycc to moderately decreased V2g64-86Gyxgkikrtq to severely decreased G4 15-29Severely decreased G5 <15Kidney failure The eGFR was calculated using the Chronic Kidney Disease Epidemiology Collaboration (CKD-EPI) equation. Interpretation is based on recommendations of the National Kidney Foundation-Kidney Disease Outcomes Quality Initiative (NKF-KDOQI) published in 2014. Specimen Plasma specimen Performing Organization Address City/[facility]/Zipcode Phone Number [facility] DEPARTMENT OF PATHOLOGY [address] [place] [address] [place] [address] HOSPITAL RH type (11/10/2018 5:20 PM [facility] CLERK) Rh type POS [facility] Specimen Blood Performing Organization Address City/[facility]/Zipcode Phone Number [facility] DEPARTMENT OF PATHOLOGY [address] [place] [address] AND [facility] [id number] [place] [address] CBC with platelet and differential (11/10/2018 5:20 PM [facility]OSPITAL [facility] CLERK) WBC 13.5 (H) 4.5 - 11.0 k/uL [facility] RBC 4.27 4.20 - 5.50 [facility] m/uL [facility] HGB 13.6 12.0 - 16.0 [facility] g/dL [facility] HCT 41.1 37.0 - 47.0 % [facility] MCV 96.3 82.0 - 100.0 fL [facility] MCH 31.9 27.0 - 34.0 pg [facility] MCHC 33.1 31.0 - 37.0 [facility] g/dL [facility] RDW - SD 46.3 37.0 - 55.0 fL [facility] MPV 11.0 6.9 - 11.0 fL [facility] Platelet count 357 150 - 400 K/uL [facility] Nucleated RBC 0.00 /100 WBC [facility] Neutrophils 61.0 39.0 - 69.0 % [facility] Lymphocytes 33.7 25.0 - 45.0 % [facility] Monocytes 4.1 0.0 - 10.0 % [facility] Eosinophils 0.5 0.0 - 5.0 % [facility] Basophils 0.3 0.0 - 1.0 % [facility] Immature granulocytes 0.4 0.0 - 1.0 % [facility] Specimen Blood Performing Organization Address City/State/Zipcode Phone Number [facility] DEPARTMENT OF PATHOLOGY [address] [place] [address] AND [facility] [address] hCG quantitative, serum (11/10/2018 5:20 PM HOSPITAL WARD CLERK) hCG quantitative, 34 (H) 0 - 5 mIU/mL [facility] serum Comment: [place] Reference range for HCG Quant applies to males and non- HOSPITAL females. Post Menopausal 0.0 - 8.1 mIU/mL Specimen Blood Performing Organization Address City/State/Zipcode Phone Number [facility] DEPARTMENT OF PATHOLOGY [id number] [place] [address] Comprehensive metabolic panel (11/10/2018 5:20 PM [facility]OSPITAL [facility] CLERK) Sodium 137 135 - 148 mEq/L [facility] Potassium 3.8 3.5 - 5.0 mEq/L [facility] Chloride 98 98 - 112 mEq/L [facility] CO2 24 24 - 31 mEq/L [facility] Anion gap 15@ANIO 7 - 15 mEq/L [facility] BUN 9 6 - 20 mg/dL [facility] Creatinine 0.54 0.50 - 0.90 [facility] mg/dL [facility] Glucose 100 (H) 65 - 99 mg/dL [facility] Calcium 9.9 8.3 - 10.2 mg/dL [facility] Protein 8.4 (H) 6.3 - 8.3 g/dL [facility] Albumin 4.8 3.5 - 5.0 g/dL [facility] A/G ratio 1.3 0.7 - 3.8 [facility] Alkaline phosphatase 70 35 - 104 U/L [facility] AST 18 10 - 35 U/L [facility] ALT 23 5 - 50 U/L [facility] Total bilirubin 0.4 0.2 - 1.2 mg/dL [facility] Specimen Plasma specimen Performing Organization Address City/State/Zipcode Phone Number [facility] DEPARTMENT OF PATHOLOGY [phone] [place] [address] Urine culture (11/10/2018 5:15 PM HOSPITAL [facility]ARD CLERK) Urine culture SEE COMMENTComment: [facility] Bacteriuria screen [facility] negative. Specimen Performing Organization Address City/[facility]/Zipcode Phone Number [facility] DEPARTMENT OF PATHOLOGY [address] [place], [place] [id number] AND [facility]OMIC [facility]IC[facility] SERGIO ALLEN [place] [address] [facility] [place] [address] HOSPITAL after 06/10/2018 Insurance Payer Benefit Plan / Subscriber ID Effective Dates Phone Address Type Group MISC MEDICARE MIS MEDICARE xxxxxxxxxxx 2018-Present HMO REPLACEMENT REPLACEMENT [facility] xxxxxxxxx 2017-Presen HMO [place] t Advance Directives Patient has advance care planning documents on file. For more information, please contact:Sergio Allen[address] [place] [address]
--- OUTSIDE RECORDS SUMMARY | 2019-06-11 12:06 | XMS REPORT ---
:1985 Author [facility] Address [address] [place] [address] [address] [address] Care Team Providers Name Role Phone Unavailable [...]
--- OUTSIDE RECORDS SUMMARY | 2019-06-11 12:06 | XMS REPORT ---
[...] End Status Dosage System Date Date Atorvastatin [facility] 89200155130 10 MG Orally Active 1 tablet Calcium Once a day Meclizine HCl [facility] 90333860937 25 MG Orally April Active 1 tablet as bid prn 07, needed 2019 Alogliptin [facility] 02884426134 25 MG Orally April Active 1 tablet Benzoate Once a day for 28, diabetes 2019 Amoxicillin [facility] 14954624803 500 MG Orally Active 1 capsule Twice a day Vitamin D [facility] 41042346292 2000 UNIT Active 1 tablet Orally Once a day Orphenadrine [facility] [address]-23 100 MG Orally Active as directed Citrate ER Lisinopril [facility] 63142754589 5 MG Orally Active 1 tablet Once a day GlipiZIDE XL [facility] 35202122085 5 MG Orally Active 1 tablet with Once a day food Januvia [facility] 98648783752 100 MG Orally Inactive 1 tablet Once a day Loratadine [facility] 36810554240 10 MG Orally Active 1 tablet Once a day BusPIRone HCl [facility] 81408860979 7.5 MG Orally April 18, Active 1 tablet as Twice a day 2018 needed for anxiety Triamcinolone [facility] 77247524515 0.1 % April Active 1 application Acetonide , to affected Twice a day 2019 areas Results No Known Results Summary Purpose eClinicalWorks Submission
--- OUTSIDE RECORDS SUMMARY | 2019-06-11 12:06 | XMS REPORT | Continuity of Care Document ---
:1985 Author Organization [facility] [place] Information [employer] Care Team Providers Name Role Phone [facility] [place] [employer] Unavailable Unavailable Problems Problem Status Onset Classification Date Comments Source Date Reported Unspecified 03/16/2018 [place] otitis externa, 8 right ear Otitis externa 03/16/2018 [place] of right ear 8 Cough 03/16/2018 [place] 8 EAR PAIN/ Active [facility] 8 [place] BLEEDING, 3WKS Active [facility] 7 [place] Medications Medication Details Route Status Patient Ordering Order Source Instructions Provider Date tramadol 50 mg, Inactive hydrochloride 50 Route: PO, 018 [place] MG Oral Tablet Drug form: TAB, ONCE, Dosing Weight 107.273, kg, Priority: STAT, Start date: 12/08/17 23:51:00 [employer], Stop date: 12/08/17 23:51:00 [employer] 200 ACTUAT 2 puff, Active Albuterol 0.09 INHALER, 018 [place] MG/ACTUAT Q4H, PRN Metered Dose wheezing, Inhaler [ProAir coughing, HFA] or shortness of breath, # 1 ea, 1 Refill(s) benzonatate 200 200 mg=1 No Longer MH MG Oral Capsule cap, PO, Active 018 [place] [Tessalon] TID, PRN as needed for cough, X 7 day, # 21 cap, 0 Refill(s) Ciprofloxacin 3 4 drp, No Longer MH MG/ML / RIGHT EAR, Active 018 [place] Dexamethasone 1 BID, X 7 MG/ML Otic day, # 1 Suspension btl, 0 [Ciprodex] Refill(s) Albuterol 0.833 3 ml, Inactive MH MG/ML / Route: NEB, 018 [place] Ipratropium Drug Form: [place] 0.167 SOLN, MG/ML Inhalant Dosing Solution Weight [DuoNeb] 107.273, kg, ONCE, Start date: 12/08/17 21:31:00 [employer], Stop date: 12/08/17 21:31:00 CSTNotes: (Same as: Duoneb) Allergies, Adverse Reactions, Alerts Substance Category Reaction Severity Reaction Status Date Comments Source type Reported Motrin Assertion Drug Active allergy [place] Immunizations No Data Provided for This Section Results No Data Provided for This Section Pathology Reports No Data Provided for This Section Diagnostic Reports Report Value Date Source Chest 2 views DX EXAM: XR CHEST 2 VIEW 12/08/2017 [facility] DATE: 12/08/2017 9:31 PM [employer] INDICATION: Cough. COMPARISON: 04/24/2010. TECHNIQUE: PA and lateral views of the chest were obtained. FINDINGS: No focal consolidation or pneumothorax is identified. The cardiomediastinal silhouette is within normal limits. The costophrenic recesses are sharp and without effusion. No acute osseous abnormality is noted. IMPRESSION: No acute cardiopulmonary abnormality. SL: [id number] Consultation Notes No Data Provided for This Section Discharge Summaries No Data Provided for This Section History and Physicals No Data Provided for This Section Vital Signs Vital Sign Value Date Comments Source Respitory Rate 18 12/09/2017 [facility] Systolic (mm Hg) 146 12/09/2017 [facility] Diastolic (mm Hg) 95 12/09/2017 [facility] Heart Rate 109 12/09/2017 [facility] Respitory Rate 18 12/09/2017 [facility] Weight 107.273 12/09/2017 [facility] Heart Rate 100 12/09/2017 [facility] Systolic (mm Hg) 141 12/09/2017 [facility] Diastolic (mm Hg) 79 12/09/2017 [facility] Respitory Rate 20 12/09/2017 [facility] Temperature Oral (F) 98.9 F 12/09/2017 [facility] Weight 103.636 01/08/2017 [facility] BMI Calculated 39.22 01/08/2017 [facility] Height 162.56 cm 01/08/2017 [facility] Systolic (mm Hg) 134 01/08/2017 [facility] Diastolic (mm Hg) 93 01/08/2017 [facility] Temperature Oral (F) 98 F 01/08/2017 [facility] Heart Rate 102 01/08/2017 [facility] [place] Respitory Rate 18 01/08/2017 [facility] Encounters Location Location Encounter Encounter Reason Attending ADM DC Status Source Details Type Number For Provider Date Date Visit [facility] Emergency [id number] Antolin Olearymariah 01/08 01/08 [place] /2016 [facility] [id number] Umm 12/09 12/09 [place] Duran /2017 [facility] Procedures No Data Provided for This Section Assessment and Plan No Data Provided for This Section Plan of Care No Data Provided for This Section Social History Social History Date Source Social History TypeResponse 12/09/2017 [facility] Smoking Status Never smoker; Concerns about tobacco use in household: No; Exposure to Tobacco Smoke None; Cigarette Smoking Last 365 Days No; Reg Smoking Cessation Counseling No entered on: 12/08/17 Family History No Data Provided for This Section Advance Directives No Data Provided for This Section Functional Status No Data Provided for This Section
--- OUTSIDE RECORDS SUMMARY | 2019-06-11 12:06 | XMS REPORT ---
:1985 Author Organization eClinicalWorks Care Team Providers Name Role Phone Danny Klarissa Provider Role Unavailable Allergies No Known Allergies Problems Problem Type Condition Code Onset Dates Condition Status Problem Ingrown toenail of right foot L60.0 [...] Start End Status Dosage System Date Date Loratadine [facility] 51665597497 10 MG Orally Active 1 tablet Once a day Vitamin D [facility] 72058210846 2000 UNIT Active 1 tablet Orally Once a day Meclizine HCl ND 86218068810 25 MG Orally April Active 1 tablet as Twice daily 07, needed for 2019 dizziness Pioglitazone HCl ND 25575301039 15 MG Orally May Active 1 tablet Once a day for , diabetes 2019 Dicyclomine HCl [facility] 92350251648 20 MG Orally May Active 1 tablet as Four times a 09, 19, needed for day 2018 2019 stomach pain Atorvastatin ND 96971634472 10 MG Orally Active 1 tablet Calcium Once a day Lisinopril [facility] 40889945163 5 MG Orally Active 1 tablet Once a day Amoxicillin [facility] 65841428375 500 MG Orally Active 1 capsule Twice a day Alogliptin [facility] 21970801612 25 MG Orally April Active 1 tablet Benzoate Once a day for 28, diabetes 2018 GlipiZIDE XL [facility] 74108896200 5 MG Orally Active 1 tablet with Once a day food GlipiZIDE [facility] 14676039534 5 MG Orally May Active 1 tablet Once a day 2018 Triamcinolone [facility] 72330972208 0.1 % April Active 1 application Acetonide Externally , to affected Twice a day 2019 areas BusPIRone HCl [facility] 49619912013 7.5 MG Orally April 18, Active 1 tablet as Twice a day 2018 needed for anxiety Orphenadrine [facility] [address]-15 100 MG Orally Active as directed Citrate ER Results No Known Results Summary Purpose eClinicalWorks Submission
--- OUTSIDE RECORDS SUMMARY | 2019-06-11 12:06 | XMS REPORT ---
[...] Status Dosage System Date Date Atorvastatin ND 53340511905 10 MG Orally Active 1 tablet Calcium Once a day Lisinopril ND 07702280706 5 MG Orally Active 1 tablet Once a day Dicyclomine HCl ND 01848277582 20 MG Orally May Active 1 tablet as Four times a 09, 19, needed for day 2018 2018 stomach pain Loratadine ND 24341191560 10 MG Orally Active 1 tablet Once a day Triamcinolone [facility] 39395805253 0.1 % April Active 1 application Acetonide Externally 28, to affected Twice a day 2019 areas [address] XL [facility] 82302514408 5 MG Orally Active 1 tablet with Once a day food Pioglitazone HCl [facility] 04522368702 15 MG Orally May Active 1 tablet Once a day for , diabetes [address] [facility] 08451119408 500 MG Orally Active 1 capsule Twice a day Orphenadrine [facility] [address]-18 100 MG Orally Active as directed Citrate ER Alogliptin [facility] 42613048231 25 MG Orally April Active 1 tablet Benzoate Once a day for , diabetes [address] [facility] 32074622516 2000 UNIT Active 1 tablet Orally Once a day BusPIRone HCl [facility] 09209635586 7.5 MG Orally April 18, Active 1 tablet as Twice a day 2019 needed for anxiety Meclizine HCl [facility] 63287422925 25 MG Orally April Active 1 tablet as Twice daily , needed for 2019 dizziness Results No Known Results Summary Purpose eClinicalWorks Submission
--- OUTSIDE RECORDS SUMMARY | 2019-06-11 12:06 | XMS REPORT ---
[...] Start Date End Date Status Dosage [facility] 27070178758 100 MG Orally Active 1 tablet Once a day Results No Known Results Summary Purpose eClinicalWorks Submission
--- OUTSIDE RECORDS SUMMARY | 2019-06-11 12:06 | XMS REPORT ---
:1985 Author Organization eClinicalWorks Care Team Providers Name Role Phone Dnany Klarissa Provider Role Unavailable Allergies, Adverse Reactions, [...] Status Dosage System Date Date BusPIRone HCl [facility] 65433801673 7.5 MG Orally April 18, Active 1 tablet as Twice a day 2019 needed for anxiety Vitamin D ND 51609961244 2000 UNIT Active 1 tablet Orally Once a day Atorvastatin [facility] 72518542255 10 MG Orally Active 1 tablet Calcium Once a day Orphenadrine [facility] [address]-60 100 MG Orally Active as directed Citrate ER Meclizine HCl [facility] 92199178660 25 MG Orally April Active 1 tablet as Twice daily 07, needed for 2019 dizziness Lisinopril [facility] 58709478537 5 MG Orally Active 1 tablet Once a day Pioglitazone HCl [facility] 41773192889 15 MG Orally May Active 1 tablet Once a day for , diabetes 2019 Amoxicillin [facility] 02403763537 500 MG Orally Active 1 capsule Twice a day Loratadine [facility] 84201478142 10 MG Orally Active 1 tablet Once a day GlipiZIDE XL [facility] 53449272810 5 MG Orally Active 1 tablet with Once a day food Triamcinolone [facility] 40276170116 0.1 % April Active 1 application Acetonide Externally 28, to affected Twice a day 2019 areas Alogliptin [facility] 59617491687 25 MG Orally April Active 1 tablet Benzoate Once a day for , diabetes 2019 Results No Known Results Summary Purpose eClinicalWorks Submission
--- OUTSIDE RECORDS SUMMARY | 2019-06-11 12:07 | XMS REPORT ---
:1985 Author Organization eClinicalWorks Care Team Providers Name Role Phone Klarissa Delgado Provider Role Unavailable Allergies No Known Allergies Problems Problem Type Condition Code Onset Dates Condition Status Problem High blood pressure I10 Active Problem Ingrown toenail of right foot L60.0 Active Problem Uncontrolled type 2 diabetes E11.65 Active mellitus with hyperglycemia Problem Migraine G43.909 Active Problem Obesity (BMI 30-39.9) E66.9 Active Problem Dizziness R42 Active Problem Sinus problem J34.9 Active Problem Rash and nonspecific skin eruption R21 Active Problem Allergic rhinitis, unspecified J30.9 Active seasonality, unspecified trigger Problem Depression screening Z13.31 Active Problem Constipation, unspecified K59.00 Active constipation type Problem Generalized weakness R53.1 Active Problem Diabetes E11.9 Active Problem Seasonal allergies J30.2 Active Problem Pain of upper abdomen R10.10 Active Problem Hypercholesterolemia E78.00 Active Problem Epigastric pain R10.13 Active Problem Daily headache R51 Active Problem Frequent headaches R51 Active Problem Shortness of breath R06.02 Active Problem Anxiety F41.9 Active Problem Difficulty sleeping G47.9 Active Problem Essential hypertension I10 Active Problem Asthma J45.909 Active Problem Uterine bleeding N93.9 Active Problem Left ovarian cyst N83.202 Active Problem Right upper quadrant pain R10.11 Active Problem Dietary surveillance and counseling Z71.3 Active Medications No Known Medications Results No Known Results Summary Purpose eClinicalWorks Submission
--- OUTSIDE RECORDS SUMMARY | 2019-06-11 12:07 | XMS REPORT ---
:1985 Author Organization eClinicalWorks Care Team Providers Name Role Phone Danny Klarissa Provider Role Unavailable Allergies, Adverse Reactions, Alerts Substance Reaction Event Type N.K.D.A. Info Not Available Non Drug Allergy Problems Problem Type Condition Code Onset Dates Condition Status Assessment Follow-up exam Z09 Active Assessment Uncontrolled type 2 diabetes E11.65 Active mellitus with hyperglycemia Assessment Pain of upper abdomen R10.10 Active Assessment Frequent headaches R51 Active Assessment Constipation, unspecified K59.00 Active constipation type Problem High blood pressure I10 Active Problem [...] breath R06.02 Active Problem Anxiety F41.9 Active Assessment Dizziness R42 Active Problem Difficulty sleeping G47.9 Active Problem Essential hypertension I10 Active Problem Asthma J45.909 Active Problem Uterine bleeding N93.9 Active Problem Left ovarian cyst N83.202 Active Problem Right upper quadrant pain R10.11 Active Problem Dietary surveillance and counseling Z71.3 Active Medications Medication Code Code Instructions Start End Status Dosage System Date Date Dicyclomine HCl [facility] 46356818435 20 MG Orally May Active 1 tablet as Four times a 09, 19, needed for day 2018 [address] [facility] 76142836612 0.1 % April Active 1 application Acetonide Externally 28, to affected Twice a day [address] [facility] 81768517322 10 MG Orally Active 1 tablet Once a day Lisinopril [facility] 54922066755 5 MG Orally Active 1 tablet Once a day Farxiga ND 36946379358 5mg Orally May Active 1 tablet Once daily , [address] [facility] 06822360608 10 GM/15ML May Active 15-30 ml Orally Once to , twice a day as 2018 2018 needed for constipation BusPIRone HCl [facility] 95190166798 7.5 MG Orally April 18, Active 1 tablet as Twice a day 2018 needed for anxiety Vitamin D [facility] 36184221372 2000 UNIT Active 1 tablet Orally Once a day Atorvastatin [facility] 91587173994 10 MG Orally Active 1 tablet Calcium Once a day Orphenadrine [facility] [address]-80 100 MG Orally Active as directed Citrate ER Alogliptin [facility] 22271254058 25 MG Orally April Active 1 tablet Benzoate Once a day for , diabetes [address] [facility] 67854685242 15 MG Orally May Active 1 tablet Once a day for 05, diabetes [address] [facility] 64516829007 5 MG Orally Active 1 tablet with Once a day food Amoxicillin [facility] 03639529604 500 MG Orally Active 1 capsule Twice a day Meclizine HCl [facility] 10053483400 25 MG Orally April Active 1 tablet as Twice daily , needed for 2019 dizziness Results No Known Results Summary Purpose eClinicalWorks Submission
[2019-06-11 15:00] LABS: Absolute Lymphocytes (CBC) 3.2 K/uL (0.7-4.9); Basophils % 0.6 % (0-1.3); Eosinophils % 1.5 % (0-4.4); Hematocrit 41.7 % (36.0-45.0); MPV 8.9 fL (7.6-11.3); Monocytes % 6.1 % (3.3-12.3); RBC Red Blood Cell Count 4.16 M/uL (3.86-4.86)
[2019-06-11] MEDS ORDERED: NA CHLORIDE 0.9% 1,000 ML ONE (15:05)
--- NOTE | 2019-06-11 15:06 | EKG ---
Test Date: 2019-06-11 Test Time: 12:16:33 Wind Up Worker: CHARLIE MEASUREMENT RESULTS: Intervals: Rate: 83 SD: 150 QRSD: 80 QT: 370 QTc: 434 [place]: P: 32 SD: 150 QRS: 1 T: 21 INTERPRETIVE STATEMENTS: Normal sinus rhythm Possible Anterior infarct, age undetermined Abnormal ECG Compared to ECG 06/16/2018 13:42:29 Myocardial infarct finding now present Electronically Signed On 06-11-19 15:05:25 CDT by Danny Rand
[2019-06-11 15:08] LABS: Protime INR 1.04
[2019-06-11 15:31] LABS: ALT/SGPT 26 U/L (12-78); AST/SGOT 12 U/L (15-37); Alkaline Phosphatase 82 U/L (45-117); BUN Blood Urea Nitrogen 15 mg/dL (7-18); Bicarbonate 27 mmol/L (21-32); Bilirubin Direct 0.1 mg/dL (0-0.2); Bilirubin Total 0.4 mg/dL (0.2-1.0); Glucose Level 85 mg/dL (74-106); Magnesium 2.4 mg/dL (1.8-2.4); NT PRO-BNP 14 pg/mL (<125); Potassium 4.3 mmol/L (3.5-5.1); Protein, Total 8.5 g/dL (6.4-8.2); Sodium Level 140 mmol/L (136-145); Troponin (Emerg Dept Use Only) < 0.02 ng/mL (0.0-0.045)
[2019-06-11 15:33] LABS: Urine Blood 1+ (NEG); Urine Glucose 2+ (NEG); Urine Protein NEGATIVE (NEG)
--- NOTE | 2019-06-11 15:37 | ER ---
Nurse's Notes [facility] Name: Mckenna Haney Age: 34 yrs Sex: Female : 1985 Arrival Date: 06/11/2019 Time: 12:05 Bed 26 Private MD: Klarissa Delgado Diagnosis: Weakness;Chest pain, unspecified Presentation: 06/11 12:08 Presenting complaint: Patient states: i noticed swelling on my legs for 2 days now and hj now short of breath and chest pain; denies N/V;. Transition of care: patient was not received from another setting of care. Onset of symptoms was June 11, 2019. Risk Assessment: Do you want to hurt yourself or someone else? Patient reports no desire to harm self or others. Initial Sepsis Screen: Does the patient meet any 2 criteria? No. Patient's initial sepsis screen is negative. Does the patient have a suspected source of infection? No. Patient's initial sepsis screen is negative. Care prior to arrival: None. 12:08 Method Of Arrival: Ambulatory 12:08 Acuity: LILO 3 hj Historical: - Allergies: 12:10 Ibuprofen (Hives); hj - PMHx: 12:10 Diabetes - NIDDM; High Cholesterol; Hypertension; Ovarian cyst; hj - PSHx: 12:10 Cholecystectomy; hj - Immunization history:: Adult Immunizations up to date. - Social history:: Smoking status: Patient/guardian denies using tobacco. - Family history:: not pertinent. - Ebola Screening: : Patient denies travel to an Ebola-affected area in the 21 days before illness onset. Screenin:34 Abuse screen: Denies threats or abuse. Denies injuries from another. Nutritional aj1 screening: No deficits noted. Tuberculosis screening: No symptoms or risk factors identified. 15:59 Fall Risk None identified. aj1 Assessment: 13:34 General: Appears in no apparent distress. uncomfortable, Behavior is calm, cooperative, aj1 appropriate for age. Pain: Complains of pain in mid-sternal area Pain does not radiate. Pain currently is 9 out of 10 on a pain scale. Quality of pain is described as sharp, Pain began 2-3 days ago. Neuro: Level of Consciousness is awake, alert, obeys commands, Oriented to person, place, time, situation. Cardiovascular: Reports chest pain, palpitations, Heart tones S1 S2 present Patient's skin is warm and dry. Rhythm is sinus rhythm. Respiratory: Reports shortness of breath cough that is productive, Airway is patent Respiratory effort is even, unlabored, Respiratory pattern is regular, symmetrical, Breath sounds are clear bilaterally. Onset: The symptoms/episode began/occurred 2 days ago. GI: No signs and/or symptoms were reported involving the gastrointestinal system. : No signs and/or symptoms were reported regarding the genitourinary system. EENT: Reports nasal congestion. Derm: No signs and/or symptoms reported regarding the dermatologic system. Skin is pink, warm \T\ dry. normal. Musculoskeletal: No signs and/or symptoms reported regarding the musculoskeletal system. Circulation, motion, and sensation intact. 14:47 Reassessment: Patient appears in no apparent distress at this time. No changes from aj1 previously documented assessment. Patient and/or family updated on plan of care and expected duration. Pain level reassessed. Patient is alert, oriented x 3, equal unlabored respirations, skin warm/dry/pink. 15:57 Reassessment: Patient appears in no apparent distress at this time. No changes from aj1 previously documented assessment. Patient and/or family updated on plan of care and expected duration. Pain level reassessed. Patient is alert, oriented x 3, equal unlabored respirations, skin warm/dry/pink. Vital Signs: 12:10 BP 136 / 71; Pulse 86; Resp 18; Temp 97.4(TE); Pulse Ox 100% on R/A; Weight 101.6 kg; Height 5 ft. 4 in. (162.56 cm); Pain 10/10; 13:34 BP 109 / 75; Pulse 88; Resp 17; Pulse Ox 100% on R/A; aj1 15:57 BP 116 / 72; Pulse 82; Resp 18; Pulse Ox 97% on R/A; aj1 12:10 Body Mass Index 38.45 (101.60 kg, 162.56 cm) ED Course: 12:05 Patient arrived in ED. dl4 12:05 Klarissa Delgado MD is Private Physician. dl4 12:09 Triage completed. hj 12:10 Arm band placed on right wrist. hj 12:43 EKG done, by technical communication teacher. reviewed by Wade Rteana MD. tc 13:26 Cory, Luciana, RN is Primary Nurse. aj1 13:34 Patient has correct armband on for positive identification. Bed in low position. Call aj1 light in reach. Side rails up X 1. pallet repairer on. Pulse ox on. NIBP on. 13:34 No provider procedures requiring assistance completed. aj1 13:43 Wade Retana MD is Attending Physician. tish 14:30 Urine collected: clean catch specimen, clear, stephanie colored. Patient maintains SpO2 jp3 saturation greater than 95% on room air. 14:40 Initial lab(s) drawn, by ks, sent to lab. Inserted saline lock: 20 gauge in right jp3 antecubital area, using aseptic technique. Blood collected. 14:52 D-Dimer Sent. jp3 14:52 Urine Culture Sent. jp3 14:52 Lipase Sent. jp3 14:52 Troponin (emerg Dept Use Only) Sent. jp3 14:52 Basic Metabolic Panel Sent. jp3 14:52 CBC with Diff Sent. jp3 14:52 LFT's Sent. jp3 14:52 Magnesium Sent. jp3 14:52 NT PRO-BNP Sent. jp3 14:52 PT-INR Sent. jp3 15:24 XRAY Chest (1 view) In Process Unspecified. EDMS 15:36 Klarissa Delgado MD is Referral Physician. tish 15:57 IV discontinued, intact, bleeding controlled, No redness/swelling at site. Pressure aj1 dressing applied. Administered Medications: 14:54 Drug: NS 0.9% 1000 ml Route: IV; Rate: 1 bolus; Site: right antecubital; aj1 16:02 Follow up: IV Status: Completed infusion; IV Intake: 1000ml aj1 Intake: 16:02 IV: 1000ml; Total: 1000ml. aj1 Outcome: 15:36 Discharge ordered by . tish 16:00 Discharged to home ambulatory. aj1 16:00 Condition: good 16:00 Discharge instructions given to patient, Instructed on discharge instructions, follow up and referral plans. medication usage, Demonstrated understanding of instructions, follow-up care, medications, Prescriptions given X 1. 16:04 Patient left the ED. aj1 Signatures: Dispatcher [employer] EDKY Luciana Ray RN RN aj1 Wade Retana MD MD cha Callis, Tiffany, dietary services manager EKG Ttc Benjamin Evans RN RN hj Michael Lewis jp3 Rodolfo Patel dl4
--- NOTE | 2019-06-11 15:38 | EDPHYS ---
Physician Documentation [facility] Name: Mckenna Haney Age: 34 yrs Sex: Female : 1985 Arrival Date: 06/11/2019 Time: 12:05 Bed 26 Private MD: Klarissa Delgado ED Physician Wade Retana HPI: 06/11 14:28 This 34 yrs old Female presents to ER via Ambulatory with complaints of tish Weakness, Chest Pain. 14:28 The patient presents to the emergency department with weakness of the entire body, tish generalized weakness. Onset: The symptoms/episode began/occurred 3 day(s) ago. Context: occurred at home. Associated signs and symptoms: The patient has no apparent associated signs or symptoms. Severity of symptoms: At their worst the symptoms were mild in the emergency department the symptoms are unchanged. Patient's baseline: Neuro: alert and fully oriented. The patient has not experienced similar symptoms in the past. Historical: - Allergies: 12:10 Ibuprofen (Hives); hj - PMHx: 12:10 Diabetes - NIDDM; High Cholesterol; Hypertension; Ovarian cyst; hj - PSHx: 12:10 Cholecystectomy; hj - Immunization history:: Adult Immunizations up to date. - Social history:: Smoking status: Patient/guardian denies using tobacco. - Family history:: not pertinent. - Ebola Screening: : Patient denies travel to an Ebola-affected area in the 21 days before illness onset. ROS: 14:28 Constitutional: Negative for fever, chills, and weight loss, Eyes: Negative for injury, tish pain, redness, and discharge, ENT: Negative for injury, pain, and discharge, Neck: Negative for injury, pain, and swelling, Cardiovascular: Negative for chest pain, palpitations, and edema, Respiratory: Negative for shortness of breath, cough, wheezing, and pleuritic chest pain, Abdomen/GI: Negative for abdominal pain, nausea, vomiting, diarrhea, and constipation, Back: Negative for injury and pain, : Negative for injury, bleeding, discharge, and swelling, Skin: Negative for injury, rash, and discoloration, Neuro: Negative for headache, weakness, numbness, tingling, and seizure, Psych: Negative for depression, anxiety, suicide ideation, homicidal ideation, and hallucinations, Allergy/Immunology: Negative for hives, rash, and allergies, Endocrine: Negative for neck swelling, polydipsia, polyuria, polyphagia, and marked weight changes, Hematologic/Lymphatic: Negative for swollen nodes, abnormal bleeding, and unusual bruising. 14:28 MS/extremity: Positive for weak legs. Exam: 14:28 Constitutional: This is a well developed, well nourished patient who is awake, alert, tish and in no acute distress. Head/Face: Normocephalic, atraumatic. Eyes: Pupils equal round and reactive to light, extra-ocular motions intact. Lids and lashes normal. Conjunctiva and sclera are non-icteric and not injected. Cornea within normal limits. Periorbital areas with no swelling, redness, or edema. ENT: Nares patent. No nasal discharge, no septal abnormalities noted. Tympanic membranes are normal and external auditory canals are clear. Oropharynx with no redness, swelling, or masses, exudates, or evidence of obstruction, uvula midline. Mucous membranes moist. Neck: Trachea midline, no thyromegaly or masses palpated, and no cervical lymphadenopathy. Supple, full range of motion without nuchal rigidity, or vertebral point tenderness. No Meningismus. Chest/axilla: Normal chest wall appearance and motion. Nontender with no deformity. No lesions are appreciated. Cardiovascular: Regular rate and rhythm with a normal S1 and S2. No gallops, murmurs, or rubs. Normal PMI, no JVD. No pulse deficits. Respiratory: Lungs have equal breath sounds bilaterally, clear to auscultation and percussion. No rales, rhonchi or wheezes noted. No increased work of breathing, no retractions or nasal flaring. Abdomen/GI: Soft, non-tender, with normal bowel sounds. No distension or tympany. No guarding or rebound. No evidence of tenderness throughout. Back: No spinal tenderness. No costovertebral tenderness. Full range of motion. Skin: Warm, dry with normal turgor. Normal color with no rashes, no lesions, and no evidence of cellulitis. MS/ Extremity: Pulses equal, no cyanosis. Neurovascular intact. Full, normal range of motion. Neuro: Awake and alert, GCS 15, oriented to person, place, time, and situation. Cranial nerves II-XII grossly intact. Motor strength 5/5 in all extremities. Sensory grossly intact. Cerebellar exam normal. Normal gait. Psych: Awake, alert, with orientation to person, place and time. Behavior, mood, and affect are within normal limits. 14:32 Musculoskeletal/extremity: DVT Exam: No signs of deep vein thrombosis. no pain, no tish swelling, no tenderness, negative Homans' sign noted on exam, no appreciated bluish discoloration, no erythema, no increased warmth. Vital Signs: 12:10 BP 136 / 71; Pulse 86; Resp 18; Temp 97.4(TE); Pulse Ox 100% on R/A; Weight 101.6 kg; hj Height 5 ft. 4 in. (162.56 cm); Pain 10/10; 13:34 BP 109 / 75; Pulse 88; Resp 17; Pulse Ox 100% on R/A; aj1 15:57 BP 116 / 72; Pulse 82; Resp 18; Pulse Ox 97% on R/A; aj1 12:10 Body Mass Index 38.45 (101.60 kg, 162.56 cm) MDM: 13:43 Patient medically screened. [facility] 14:32 Data reviewed: vital signs, nurses notes, lab test result(s), EKG, radiologic studies, [facility] plain films. 06/11 14:28 Order name: Basic Metabolic Panel; Complete Time: 15:35 [facility] 06/11 14:28 Order name: CBC with Diff; Complete Time: 15:35 [facility] 06/11 14:28 Order name: LFT's; Complete Time: 15:35 [facility] 06/11 14:28 Order name: Magnesium; Complete Time: 15:35 [facility] 06/11 14:28 Order name: NT PRO-BNP; Complete Time: 15:35 [facility] 06/11 14:28 Order name: PT-INR; Complete Time: 15:35 [facility] 06/11 14:28 Order name: Troponin (emerg Dept Use Only); Complete Time: 15:35 [facility] 06/11 14:28 Order name: XRAY Chest (1 view) [facility] 06/11 14:28 Order name: Lipase; Complete Time: 15:35 [facility] 06/11 14:28 Order name: Urine Culture [facility] 06/11 14:28 Order name: D-Dimer; Complete Time: 15:35 [facility] 06/11 14:54 Order name: Urine Dipstick--Ancillary (enter results); Complete Time: 15:35 [facility] 06/11 14:54 Order name: Urine --Ancillary (enter results); Complete Time: 15:35 [facility] 06/11 12:11 Order name: EKG; Complete Time: 12:11 06/11 14:28 Order name: Cardiac monitoring; Complete Time: 14:34 [facility] 06/11 14:28 Order name: EKG - Nurse/Tech; Complete Time: 14:35 [facility] 06/11 14:28 Order name: IV Saline Lock; Complete Time: 14:34 [facility] 06/11 14:28 Order name: Labs collected and sent; Complete Time: 14:45 [facility] 06/11 14:28 Order name: O2 Per Protocol; Complete Time: 14:34 [facility] 06/11 14:28 Order name: O2 Sat Monitoring; Complete Time: 14:35 [facility] 06/11 14:28 Order name: Urine Dipstick-Ancillary (obtain specimen); Complete Time: 14:45 [facility] 06/11 14:28 Order name: Urine Test (obtain specimen); Complete Time: 14:45 [facility] Administered Medications: 14:54 Drug: NS 0.9% 1000 ml Route: IV; Rate: 1 bolus; Site: right antecubital; aj1 16:02 Follow up: IV Status: Completed infusion; IV Intake: 1000ml aj1 Disposition: 06/11/19 15:36 Discharged to Home. Impression: Weakness, Chest pain, unspecified. - Condition is Stable. - Discharge Instructions: Nonspecific Chest Pain, Weakness, Nonspecific Chest Pain, Fphm-kn-Hjko, Weakness, Wdjp-ry-[id number], Aspirin and Your Heart. - Prescriptions for Pepcid 20 mg Oral Tablet - take 1 tablet by ORAL route every 12 hours for 10 days; 20 tablet. - Medication Reconciliation Form, Thank You Letter, Antibiotic Education, Prescription Opioid Use form. - Follow up: Klarissa Delgado; When: 2 - 3 days; Reason: Recheck today's complaints, Continuance of care, Re-evaluation by your physician. - Problem is new. - Symptoms have worsened. Signatures: Dispatcher [employer] Luciana Delarosa RN RN aj1 Wade Retana MD MD cha Joaquin, Henry, RN RN hj Corrections: (The following items were deleted from the chart) 16:04 15:36 06/11/2019 15:36 Discharged to Home. Impression: Weakness; Chest pain, aj1 unspecified. Condition is Stable. Discharge Instructions: Nonspecific Chest Pain, Weakness, Nonspecific Chest Pain, Vvhy-wh-Itcp, Weakness, Xayf-gs-Bria, Aspirin and Your Heart. Prescriptions for Pepcid 20 mg Oral Tablet - take 1 tablet by ORAL route every 12 hours for 10 days; 20 tablet. and Forms are Medication Reconciliation Form, Thank You Letter, Antibiotic Education, Prescription Opioid Use. Follow up: Klarissa Delgado; When: 2 - 3 days; Reason: Recheck today's complaints, Continuance of care, Re-evaluation by your physician. Problem is new. Symptoms have worsened. tish
--- NOTE | 2019-06-11 15:44 | RAD REPORT ---
EXAM DESCRIPTION: RAD - Chest Single View - 06/11/2019 3:24 pm CLINICAL HISTORY: COUGH Chest pain. COMPARISON: No comparisons FINDINGS: Portable technique limits examination quality. The lungs are grossly clear. The heart is normal in size. No displaced fractures. IMPRESSION: No acute intrathoracic process suspected.
== END 2019-06-11 16:04 | disposition home or self-care (01) ==
LOC: ER 12:04
DX: R53.1 Weakness (principal); R07.9 Chest pain, unspecified; E11.9 Type 2 diabetes mellitus without complications; I10 Essential (primary) hypertension; E78.00 Pure hypercholesterolemia, unspecified; Z88.6 Allergy status to analgesic agent
CPT/HCPCS: 93005; 87088; 85025; 87086; 80048; 36415; 83735; 81025; 85610; 85379; 80076; 81003; 84484; 83690; 83880; 71045; 96360; 99285; J7030

== ENCOUNTER 2019-08-02 15:51 | Emergency (ER) | payer OTHER ==
--- OUTSIDE RECORDS SUMMARY | 2019-08-02 15:54 | XMS REPORT ---
[...] Start Date End Date Status Dosage Vernsharitahayde [facility] [id number] 100 MG Orally Active 1 tablet Once a day Results No Known Results Summary Purpose eClinical[employer] Submission
--- OUTSIDE RECORDS SUMMARY | 2019-08-02 15:54 | XMS REPORT | Continuity of Care Document ---
:1985 Author Organization [facility] [place] Information [employer] Care Team Providers Name Role Phone [facility] [place] [employer] Unavailable Unavailable Problems Problem Status Onset Classification Date Comments Source Date Reported Unspecified 03/16/2018 [place] otitis externa, 8 right ear Otitis externa 03/16/2018 [place] of right ear 8 Cough 03/16/2018 [place] 8 EAR PAIN/ Active [facility] 8 [place] BLEEDING, 3WKS Active [facility] 7 [place] Medications Medication Details Route Status Patient Ordering Order Source Instructions Provider Date tramadol 50 mg, Inactive hydrochloride 50 Route: PO, 018 [place] MG Oral Tablet Drug form: TAB, ONCE, Dosing Weight 107.273, kg, Priority: STAT, Start date: 12/08/17 23:51:00 LITERATURE PROFESSOR, Stop date: 12/08/17 23:51:00 LITERATURE PROFESSOR 200 ACTUAT 2 puff, Active Albuterol 0.09 INHALER, 018 [place] MG/ACTUAT Q4H, PRN Metered Dose wheezing, Inhaler [ProAir coughing, HFA] or shortness of breath, # 1 ea, 1 Refill(s) benzonatate 200 200 mg=1 No Longer MH MG Oral Capsule cap, PO, Active 018 [place] [Tessalon] TID, PRN as needed for cough, X 7 day, # 21 cap, 0 Refill(s) Ciprofloxacin 3 4 drp, No Longer MH MG/ML / RIGHT EAR, Active 018 [place] Dexamethasone 1 BID, X 7 MG/ML Otic day, # 1 Suspension btl, 0 [Ciprodex] Refill(s) Albuterol 0.833 3 ml, Inactive MH MG/ML / Route: NEB, 018 [place] Ipratropium Drug Form: [place] 0.167 SOLN, MG/ML Inhalant Dosing Solution Weight [DuoNeb] 107.273, kg, ONCE, Start date: 12/08/17 21:31:00 LITERATURE PROFESSOR, Stop date: 12/08/17 21:31:00 CSTNotes: (Same as: Duoneb) Allergies, Adverse Reactions, Alerts Substance Category Reaction Severity Reaction Status Date Comments Source type Reported Motrin Assertion Drug Active allergy [place] Immunizations No Data Provided for This Section Results No Data Provided for This Section Pathology Reports No Data Provided for This Section Diagnostic Reports Report Value Date Source Chest 2 views DX EXAM: XR CHEST 2 VIEW 12/08/2017 [facility] DATE: 12/08/2017 9:31 PM LITERATURE PROFESSOR INDICATION: Cough. COMPARISON: 04/24/2010. TECHNIQUE: PA and lateral views of the chest were obtained. FINDINGS: No focal consolidation or pneumothorax is identified. The cardiomediastinal silhouette is within normal limits. The costophrenic recesses are sharp and without effusion. No acute osseous abnormality is noted. IMPRESSION: No acute cardiopulmonary abnormality. SL: [id number] Consultation Notes No Data Provided for This Section Discharge Summaries No Data Provided for This Section History and Physicals No Data Provided for This Section Vital Signs Vital Sign Value Date Comments Source Respitory Rate 18 12/09/2017 [facility] Systolic (mm Hg) 146 12/09/2017 [facility] Diastolic (mm Hg) 95 12/09/2017 [facility] Heart Rate 109 12/09/2017 [facility] Respitory Rate 18 12/09/2017 [facility] Weight 107.273 12/09/2017 [facility] Heart Rate 100 12/09/2017 [facility] Systolic (mm Hg) 141 12/09/2017 [facility] Diastolic (mm Hg) 79 12/09/2017 [facility] Respitory Rate 20 12/09/2017 [facility] Temperature Oral (F) 98.9 F 12/09/2017 [facility] Weight 103.636 01/08/2017 [facility] BMI Calculated 39.22 01/08/2017 [facility] Height 162.56 cm 01/08/2017 [facility] Systolic (mm Hg) 134 01/08/2017 [facility] Diastolic (mm Hg) 93 01/08/2017 [facility] Temperature Oral (F) 98 F 01/08/2017 [facility] Heart Rate 102 01/08/2017 [facility] [place] Respitory Rate 18 01/08/2017 [facility] Encounters Location Location Encounter Encounter Reason Attending ADM DC Status Source Details Type Number For Provider Date Date Visit [facility] Emergency [id number] Ant[place] Olearymariah 01/08 01/08 [facility] /2016 [facility] [id number] Umm 12/09 12/09 Chavez Duran /2017 [facility] Procedures No Data Provided for This Section Assessment and Plan No Data Provided for This Section Plan of Care No Data Provided for This Section Social History Social History Date Source Social History TypeResponse 12/09/2017 [facility] Smoking Status Never smoker; Concerns about tobacco use in household: No; Exposure to Tobacco Smoke None; Cigarette Smoking Last 365 Days No; Reg Smoking Cessation Counseling No entered on: 12/08/17 Family History No Data Provided for This Section Advance Directives No Data Provided for This Section Functional Status No Data Provided for This Section
--- OUTSIDE RECORDS SUMMARY | 2019-08-02 15:54 | XMS REPORT | Clinical Summary ---
:1985 Author Organization [facility] Address [address] [place] [address] Care Team Providers Name Role Phone Cm [...] a day. Take 1 tablet 0 Active vit,[id number] by mouth daily. olic 29 mg iron- [...] Emergency Medicine Sarthak Mehta [place] [facility] [place] , first trimester (Primary Dx) after 08/01/2018 Immunizations Name Administration Dates Next Due FLUCELVAX QUAD PF 01/09/2018 Social History Tobacco Use Types Packs/Day [...] Vital Signs Vital Sign Reading Time Taken Comments Blood Pressure 139/84 11/10/2018 3:44 PM RECREATION DIRECTOR Pulse 95 11/10/2018 3:44 PM RECREATION DIRECTOR Temperature 36.7 C (98 F) 11/10/2018 3:44 PM RECREATION DIRECTOR Respiratory Rate 20 11/10/2018 3:44 PM RECREATION DIRECTOR Oxygen Saturation 100% 11/10/2018 3:44 PM RECREATION DIRECTOR Inhaled Oxygen Concentration - - Weight - - Height 162.6 cm (5' 4") 11/10/2018 3:41 PM RECREATION DIRECTOR Body Mass Index - - Plan of Treatment Health Maintenance Due Date Last Done Comments CERVICAL CANCER SCREENING 2008 INFLUENZA VACCINE 06/27/2019 01/09/2018 Procedures Procedure Name Priority Date/Time Associated Comments Diagnosis US STAT 11/10/2018 7:27 Results for this TRANSVAGINAL PM RECREATION DIRECTOR procedure are in the results section. US SINGLE STAT 11/10/2018 7:20 Results for this LESS THAN 14 WEEKS PM RECREATION DIRECTOR procedure are in the results section. ESTIMATED GFR STAT 11/10/2018 5:20 Results for this PM RECREATION DIRECTOR procedure are in the results section. RH TYPE STAT 11/10/2018 5:20 Results for this PM RECREATION DIRECTOR procedure are in the results section. HCG QUANTITATIVE, STAT 11/10/2018 5:20 Results for this SERUM PM RECREATION DIRECTOR procedure are in the results section. URINALYSIS SCREEN AND STAT 11/10/2018 5:20 Results for this MICROSCOPY, WITH PM RECREATION DIRECTOR procedure are in REFLEX TO CULTURE the results section. COMPREHENSIVE STAT 11/10/2018 5:20 Results for this METABOLIC PANEL PM RECREATION DIRECTOR procedure are in the results section. HC COMPLETE BLD COUNT STAT 11/10/2018 5:20 Results for this W/AUTO DIFF PM RECREATION DIRECTOR procedure are in the results section. URINE CULTURE STAT 11/10/2018 5:15 Results for this PM RECREATION DIRECTOR procedure are in the results section. after 08/01/2018 Results US Transvaginal (11/10/2018 7:27 PM RECREATION DIRECTOR) Specimen Narrative Performed At EXAM: US TRANSVAGINAL, US SINGLE LESS THAN 14 WEEKS [facility] CLINICAL INDICATIONS:vaginal spotting TECHNIQUE: Pelvic ultrasound performed.Transabdominal [...] No free fluid seen in the pelvis. [id number] Procedure Note [facility], Radiology Results Incoming - 11/10/2018 8:06 PM RECREATION DIRECTOR EXAM: US TRANSVAGINAL, US SINGLE LESS THAN [...] No free fluid seen in the pelvis. [id number] Performing Organization Address City/State/Zipcode Phone Number [facility] [address] [place] [address] US Single Less Than 14 Weeks (11/10/2018 7:20 PM RECREATION DIRECTOR) Specimen Narrative Performed At EXAM: US TRANSVAGINAL, US SINGLE LESS THAN 14 WEEKS [facility] CLINICAL INDICATIONS:vaginal spotting TECHNIQUE: Pelvic ultrasound performed.Transabdominal [...] No free fluid seen in the pelvis. [id number] Procedure Note Interface, Radiology Results Incoming - 11/10/2018 8:06 PM RECREATION DIRECTOR EXAM: US TRANSVAGINAL, US SINGLE LESS THAN [...] No free fluid seen in the pelvis. [id number] Performing Organization Address City/State/Zipcode Phone Number [facility] [address] [place] [address] Urinalysis screen and microscopy, with reflex to culture (11/10/2018 5:20 PM RECREATION DIRECTOR) Specimen site Clean catch [facility] Color, UA Yellow [facility] Appearance, UA Clear [facility] Specific gravity, UA 1.012 1.001 - 1.030 [facility] pH, UA 5.0 5.0 - 9.0 [facility] Protein, UA Negative Negative [facility] Glucose, UA Negative Negative [facility] Ketones, UA 1+ (A) Negative [facility] Bilirubin, UA Negative Negative [facility] Blood, UA Moderate (A) Negative [facility] Nitrite, UA Negative Negative [facility] Urobilinogen, UA <2.0 <2.0 E.U./dL [facility] Leukocyte esterase, Negative Negative [facility] Epithelial cells, UA <1 /HPF [facility] Round epithelial <1 0 - 5 /HPF [facility] cells, UA [facility] WBC, UA 1 0 - 4 /HPF [facility] RBC, UA 6 (H) 0 - 5 /HPF [facility] Bacteria, UA None seen None seen [facility] Yeast, UA None seen [facility] Yeast with None seen [facility] pseudohyphae, [facility] Specimen Urine Performing Organization Address City/[facility] Centercode Phone Number [facility] DEPARTMENT OF PATHOLOGY [address] [place] [address] Estimated GFR (11/10/2018 5:20 PM RECREATION DIRECTOR) Estimated GFR >=90 mL/min/1.73 [facility] Comment: [address] G1 >=90 Normal or high G2 60-89Mildly decreased [id number] to moderately decreased [id number] to severely decreased G4 15-29Severely decreased G5 <15Kidney failure The eGFR was calculated using the Chronic Kidney Disease Epidemiology Collaboration (CKD-EPI) equation. Interpretation is based on recommendations of the National Kidney Foundation-Kidney Disease Outcomes Quality Initiative (NKF-KDOQI) published in 2014. Specimen Plasma specimen Performing Organization Address City/[facility]/Zipcode Phone Number [facility] DEPARTMENT OF PATHOLOGY [address] [place] [address] [place] [address] HOSPITAL RH type (11/10/2018 5:20 PM RECREATION DIRECTOR) Rh type POS [facility] Specimen Blood Performing Organization Address City/[facility]/Zipcode Phone Number [facility] DEPARTMENT OF PATHOLOGY [address] [place] [address] AND [facility] [id number] [place] [address] CBC with platelet and differential (11/10/2018 5:20 PM RECREATION DIRECTOR) WBC 13.5 (H) 4.5 - 11.0 k/uL [facility] RBC 4.27 4.20 - 5.50 [facility] m/uL [facility] HGB 13.6 12.0 - 16.0 [facility] g/dL [facility] HCT 41.1 37.0 - 47.0 % [facility] MCV 96.3 82.0 - 100.0 fL [facility] MCH 31.9 27.0 - 34.0 pg [facility] MCHC 33.1 31.0 - 37.0 [facility] g/dL [facility] RDW - SD 46.3 37.0 - 55.0 fL [facility] MPV 11.0 6.9 - 11.0 fL [facility] Platelet count 357 150 - 400 K/uL [facility] Nucleated RBC 0.00 /100 WBC [facility] Neutrophils 61.0 39.0 - 69.0 % [facility] Lymphocytes 33.7 25.0 - 45.0 % [facility] Monocytes 4.1 0.0 - 10.0 % [facility] Eosinophils 0.5 0.0 - 5.0 % [facility] Basophils 0.3 0.0 - 1.0 % [facility] Immature granulocytes 0.4 0.0 - 1.0 % [facility] Specimen Blood Performing Organization Address City/State/Zipcode Phone Number [facility] DEPARTMENT OF PATHOLOGY [address] [place] [address] AND [facility] [address] hCG quantitative, serum (11/10/2018 5:20 PM RECREATION DIRECTOR) hCG quantitative, 34 (H) 0 - 5 mIU/mL [facility] serum Comment: [facility] Reference range for HCG Quant applies to males and non- HOSPITAL females. Post Menopausal 0.0 - 8.1 mIU/mL Specimen Blood Performing Organization Address City/State/Zipcode Phone Number [facility] DEPARTMENT OF PATHOLOGY [id number] [place] [address] Comprehensive metabolic panel (11/10/2018 5:20 PM RECREATION DIRECTOR) Sodium 137 135 - 148 mEq/L [facility] Potassium 3.8 3.5 - 5.0 mEq/L [facility] Chloride 98 98 - 112 mEq/L [facility] CO2 24 24 - 31 mEq/L [facility] Anion gap 15@ANIO 7 - 15 mEq/L [facility] BUN 9 6 - 20 mg/dL [facility] Creatinine 0.54 0.50 - 0.90 [facility] mg/dL [facility] Glucose 100 (H) 65 - 99 mg/dL [facility] Calcium 9.9 8.3 - 10.2 mg/dL [facility] Protein 8.4 (H) 6.3 - 8.3 g/dL [facility] Albumin 4.8 3.5 - 5.0 g/dL [facility] A/G ratio 1.3 0.7 - 3.8 [facility] Alkaline phosphatase 70 35 - 104 U/L [facility] AST 18 10 - 35 U/L [facility] ALT 23 5 - 50 U/L [facility] Total bilirubin 0.4 0.2 - 1.2 mg/dL [facility] Specimen Plasma specimen Performing Organization Address City/State/Zipcode Phone Number [facility] DEPARTMENT OF PATHOLOGY [id number] [place] [address] Urine culture (11/10/2018 5:15 PM RECREATION DIRECTOR) Urine culture SEE COMMENTComment: [facility] Bacteriuria screen [facility] negative. Specimen Performing Organization Address City/[facility]/Zipcode Phone Number [facility] DEPARTMENT OF PATHOLOGY [address] [place], [place] [address] AND [facility] [address] [facility] [place] [address] HOSPITAL after 08/01/2018 Additional Health Concerns Infection Noted Time Resolved Time ESBL (C ) 01/08/2018 10:22 AM RECREATION DIRECTOR Insurance Payer Benefit Plan / Subscriber ID Effective Dates Phone Address Type Group MISC MEDICARE MIS MEDICARE xxxxxxxxxxx 2018-Present HMO REPLACEMENT REPLACEMENT [facility] xxxxxxxxx 2017-Presen [place] louise ([place]) [place] [address] Advance Directives For more information, please contact: [phone] Type Date Recorded Patient Commercial Loan Processor Explanation Advance Directives, Living 01/04/2018 1:11 AM Will and Medical Power of Voice Professor Advance Directives, Living 11/10/2018 5:28 PM Will and Medical Power of Voice Professor
--- OUTSIDE RECORDS SUMMARY | 2019-08-02 15:54 | XMS REPORT ---
:1985 [facility] Address [address] [place] [address] [address] Care Team Providers Name Role Phone Unavailable [...]
--- OUTSIDE RECORDS SUMMARY | 2019-08-02 15:55 | XMS REPORT ---
[...] End Status Dosage System Date Date Atorvastatin [facility] 84544005925 10 MG Orally Active 1 tablet Calcium Once a day Meclizine HCl [facility] 55849926805 25 MG Orally April Active 1 tablet as bid prn 07, needed 2019 Alogliptin [facility] 26015245312 25 MG Orally April Active 1 tablet Benzoate Once a day for 28, diabetes 2019 Amoxicillin [facility] 23749855768 500 MG Orally Active 1 capsule Twice a day Vitamin D [facility] 75166748844 2000 UNIT Active 1 tablet Orally Once a day Orphenadrine [facility] [address]-05 100 MG Orally Active as directed Citrate ER Lisinopril [facility] 41837872771 5 MG Orally Active 1 tablet Once a day GlipiZIDE XL [facility] 64056120629 5 MG Orally Active 1 tablet with Once a day food Januvia [facility] 83548316567 100 MG Orally Inactive 1 tablet Once a day Loratadine [facility] 18589247709 10 MG Orally Active 1 tablet Once a day BusPIRone HCl [facility] 16905702906 7.5 MG Orally April 18, Active 1 tablet as Twice a day 2018 needed for anxiety Triamcinolone [facility] 62774739206 0.1 % April Active 1 application Acetonide , to affected Twice a day 2019 areas Results No Known Results Summary Purpose eClinicalWorks Submission
--- OUTSIDE RECORDS SUMMARY | 2019-08-02 15:55 | XMS REPORT ---
[...] Status Dosage System Date Date BusPIRone HCl [facility] 83790147073 7.5 MG Orally April 18, Active 1 tablet as Twice a day 2019 needed for anxiety Vitamin D ND 08646269505 2000 UNIT Active 1 tablet Orally Once a day Atorvastatin [facility] 34405680924 10 MG Orally Active 1 tablet Calcium Once a day Orphenadrine [facility] [address]-13 100 MG Orally Active as directed Citrate ER Meclizine HCl [facility] 87615943772 25 MG Orally April Active 1 tablet as Twice daily 07, needed for 2019 dizziness Lisinopril [facility] 67274596553 5 MG Orally Active 1 tablet Once a day Pioglitazone HCl [facility] 88150174702 15 MG Orally May Active 1 tablet Once a day for , diabetes 2019 Amoxicillin [facility] 85224119119 500 MG Orally Active 1 capsule Twice a day Loratadine [facility] 69970299702 10 MG Orally Active 1 tablet Once a day GlipiZIDE XL [facility] 94097852047 5 MG Orally Active 1 tablet with Once a day food Triamcinolone [facility] 49053904004 0.1 % April Active 1 application Acetonide Externally 28, to affected Twice a day 2019 areas Alogliptin [facility] 86268623166 25 MG Orally April Active 1 tablet Benzoate Once a day for , diabetes 2019 Results No Known Results Summary Purpose eClinicalWorks Submission
--- OUTSIDE RECORDS SUMMARY | 2019-08-02 15:55 | XMS REPORT ---
[...] End Status Dosage System Date Date Loratadine [facility] 40207356644 10 MG Orally Active 1 tablet Once a day Vitamin D [facility] 65124981666 2000 UNIT Active 1 tablet Orally Once a day Meclizine HCl ND 32899055783 25 MG Orally April Active 1 tablet as Twice daily 07, needed for 2019 dizziness Pioglitazone HCl ND 30842356334 15 MG Orally May Active 1 tablet Once a day for , diabetes 2019 Dicyclomine HCl [facility] 47795978789 20 MG Orally May Active 1 tablet as Four times a 09, 19, needed for day 2018 2019 stomach pain Atorvastatin ND 07246560955 10 MG Orally Active 1 tablet Calcium Once a day Lisinopril [facility] 54251778564 5 MG Orally Active 1 tablet Once a day Amoxicillin [facility] 75015266188 500 MG Orally Active 1 capsule Twice a day Alogliptin [facility] 45874821594 25 MG Orally April Active 1 tablet Benzoate Once a day for 28, diabetes 2018 GlipiZIDE XL [facility] 42906800799 5 MG Orally Active 1 tablet with Once a day food GlipiZIDE [facility] 51125943717 5 MG Orally May Active 1 tablet Once a day 2018 Triamcinolone [facility] 99877000736 0.1 % April Active 1 application Acetonide Externally , to affected Twice a day 2019 areas BusPIRone HCl [facility] 98861549987 7.5 MG Orally April 18, Active 1 tablet as Twice a day 2018 needed for anxiety Orphenadrine [facility] [address]-02 100 MG Orally Active as directed Citrate ER Results No Known Results Summary Purpose eClinicalWorks Submission
--- OUTSIDE RECORDS SUMMARY | 2019-08-02 15:55 | XMS REPORT ---
[...] Status Dosage System Date Date Dicyclomine HCl [facility] 64404410413 20 MG Orally May Active 1 tablet as Four times a 09, 19, needed for day 2018 2018 stomach pain Triamcinolone [facility] 54019812779 0.1 % April Active 1 application Acetonide Externally 28, to affected Twice a day 2019 areas Loratadine [facility] 84176751766 10 MG Orally Active 1 tablet Once a day Lisinopril [facility] 68580195092 5 MG Orally Active 1 tablet Once a day Farxiga ND 67670330441 5mg Orally May Active 1 tablet Once daily , 2018 Lactulose [facility] 16282540444 10 GM/15ML May Active 15-30 ml Orally Once to , twice a day as 2018 2018 needed for constipation BusPIRone HCl [facility] 32393288171 7.5 MG Orally April 18, Active 1 tablet as Twice a day 2018 needed for anxiety Vitamin D [facility] 90476748937 2000 UNIT Active 1 tablet Orally Once a day Atorvastatin [facility] 69707025003 10 MG Orally Active 1 tablet Calcium Once a day Orphenadrine [facility] [address]-10 100 MG Orally Active as directed Citrate ER Alogliptin [facility] 58399952025 25 MG Orally April Active 1 tablet Benzoate Once a day for , diabetes 2019 Pioglitazone HCl [facility] 58013781397 15 MG Orally May Active 1 tablet Once a day for 05, diabetes 2019 GlipiZIDE XL [facility] 45423113852 5 MG Orally Active 1 tablet with Once a day food Amoxicillin [facility] 94378009752 500 MG Orally Active 1 capsule Twice a day Meclizine HCl [facility] 74346888067 25 MG Orally April Active 1 tablet as Twice daily , needed for 2019 dizziness Results No Known Results Summary Purpose eClinicalWorks Submission
--- OUTSIDE RECORDS SUMMARY | 2019-08-02 15:55 | XMS REPORT ---
[...] Status Dosage System Date Date Atorvastatin ND 45978584595 10 MG Orally Active 1 tablet Calcium Once a day Lisinopril ND 97900119299 5 MG Orally Active 1 tablet Once a day Dicyclomine HCl ND 38518084532 20 MG Orally May Active 1 tablet as Four times a 09, 19, needed for day 2018 2018 stomach pain Loratadine ND 52026584000 10 MG Orally Active 1 tablet Once a day Triamcinolone [facility] 08436826930 0.1 % April Active 1 application Acetonide Externally 28, to affected Twice a day 2019 areas GlipiZIDE XL [facility] 07065859596 5 MG Orally Active 1 tablet with Once a day food Pioglitazone HCl [facility] 88085371143 15 MG Orally May Active 1 tablet Once a day for , diabetes 2019 Amoxicillin [facility] 92254219187 500 MG Orally Active 1 capsule Twice a day Orphenadrine [facility] [address]-75 100 MG Orally Active as directed Citrate ER Alogliptin [facility] 94282314923 25 MG Orally April Active 1 tablet Benzoate Once a day for , diabetes 2019 Vitamin D [facility] 74860534271 2000 UNIT Active 1 tablet Orally Once a day BusPIRone HCl [facility] 24503289116 7.5 MG Orally April 18, Active 1 tablet as Twice a day 2019 needed for anxiety Meclizine HCl [facility] 31671652095 25 MG Orally April Active 1 tablet as Twice daily , needed for 2019 dizziness Results No Known Results Summary Purpose eClinicalWorks Submission
--- OUTSIDE RECORDS SUMMARY | 2019-08-02 15:56 | XMS REPORT | Summary of Care ---
:1985 Author Organization [facility] - [facility] Address [address] [place] [id number] Care Team Providers Name Role Phone Karoline Alvarez Primary Care Provider Reason for Referral (Routine) Status Reason Specialty Diagnoses / Referred By Referred To Procedures Contact Contact New Request Otolaryngology Diagnoses Allergic sinusitis Karoline Alvarez, Procedures CONSULT/REFERRAL ENT [facility] [address] [phone] Reason for Visit Reason Comments Notification Encounter Details Date Type Department Care Team Description 07/02/2019 Telephone [facility] Karoline Alvarez FNP Notification - [place] [address] [facility] [address] [address] [place] [address] Allergies Active Allergy Reactions Severity Noted Date Comments Ibuprofen Rash 04/19/2017 documented as of this encounter (statuses as of 07/04/2019) Medications Medication Sig Dispensed Refills Start End Status Date Date lisinopril 20 mg tablet Take 5 mg by mouth 0 Active daily. GLIPIZIDE ORAL Take by mouth. 0 Active atorvastatin calcium Take by mouth. 0 Active (ATORVASTATIN ORAL) sod ddbpm-llyyqv-[id number] Use 1 Bottle in each 1 Each 0 Active bottle (NEILMED SINUS nostril 2 (two) 9 RINSE COMPLETE) times daily. Use in pkdvIndications: hot shower 1 hour Sinusitis, unspecified before bedtime chronicity, unspecified location loratadine 10 mg Take 1 tablet by 30 tablet 0 Active tabletIndications: mouth daily. 9 Sinusitis, unspecified chronicity, unspecified location busPIRone 7.5 mg tablet TAKE 1 TABLET BY 0 Active MOUTH TWICE DAILY 9 NEEDED FOR ANXIETY naproxen (NAPROSYN) 500 Take 1 tablet by 10 tablet 0 Active mg tabletIndications: mouth 2 (two) times 9 Abdominal pain, left daily with meals. lower quadrant fexofenadine 180 mg Take 1 tablet by 30 tablet 0 Active tabletIndications: mouth daily. 9 Allergic rhinitis due to pollen, unspecified seasonality dicyclomine (BENTYL) 10 Take 1 capsule by 30 capsule 0 Active mg capsuleIndications: mouth every 8 9 Epigastric pain (eight) hours as needed for Abdominal pain. famotidine 20 mg Take 20 mg by mouth 0 Active tabletIndications: 2 (two) times daily. gastroesophageal reflux Indications: disease gastroesophageal reflux disease medroxyPROGESTERone 10 Take 10 mg by mouth 0 Active mg tablet daily. fluticasone propionate Use 1 [place] in each 16 g 2 Active (FLONASE ALLERGY nostril daily for 30 9 019 RELIEF) 50 days. mcg/actuation nasal sprayIndications: Allergic sinusitis naproxen 500 mg Take 1 tablet by 45 tablet 0 Active tabletIndications: mouth 2 (two) times 9 019 lower back pain daily as needed for Pain (scale 4-6) for up to 30 days. Indications: lower backache Fluticasone-Salmeterol Inhale 1 Puff every 60 Each 1 Active (ADVAIR DISKUS) 100-50 12 (twelve) hours. 9 mcg/dose inhalation diskIndications: Mild intermittent asthma without complication nystatin 100,000 Apply to area(s) 3 1 Bottle 0 Active unit/gram (three) times daily 9 019 powderIndications: for 21 days. Candidal skin infection fluticasone (FLONASE Use 1 [place] in each 1 Bottle 0 Active SENSIMIST) 27.5 nostril 2 (two) 9 019 mcg/actuation nasal times daily as sprayIndications: needed for Allergic sinusitis Congestion/Allergies for up to 30 days. dapagliflozin (FARXIGA) Take 1 tablet by 30 tablet 2 Active 5 mg tabletIndications: mouth daily for 90 9 019 Acute recurrent days. ethmoidal sinusitis azithromycin 250 mg Take 1 tablet by 5 tablet 0 Active tabletIndications: mouth daily for 5 9 019 Medication refill days. Take 500 mg day 1, then 250 mg days 2 to 5. documented as of this encounter (statuses as of 07/04/2019) Active Problems Problem Noted Date Type 2 diabetes mellitus with complication, without long-term current use of insulin Neck pain, acute 06/13/2019 Acute bilateral low back pain with bilateral sciatica 06/13/2019 Allergic sinusitis 06/13/2019 Secondary oligomenorrhea 05/10/2019 Overview: 05/10/19 s/p EMB - histology revealed a benign endometrial polyp. Cyclic progesterone started. Abdominal pain, left lower quadrant 05/10/2019 Obesity (BMI 30-39.9) 04/27/2017 documented as of this encounter (statuses as of 07/04/2019) Immunizations Name Administration Dates Next Due Pneumococcal Polysaccharide, PPSV23 (PNEUMOVAX) 06/13/2019 documented as of this encounter Social History Tobacco Use Types Packs/Day Years Used Date Never Smoker Smokeless Tobacco: Never Used Alcohol Use Drinks/Week oz/Week Comments Never Alcohol Habits Answer Date Recorded How often do you have a drink containing alcohol? Never 05/01/2019 How many drinks containing alcohol do you have on a typical Not asked day when you are drinking? How often do you have six or more drinks on one occasion? Not asked Sex Assigned at Date Recorded Not on file Job Start Date Occupation Industry Not on file Not on file Not on file Travel History Travel Start Travel End No recent travel history available. documented as of this encounter Last Filed Vital Signs Not on filedocumented in this encounter Plan of Treatment Date Type Specialty Care Team Description 07/05/2019 Office Visit Obstetrics & Gynecology Claritza Velez MD [address] [place] [phone] 08/13/2019 Office Visit Obstetrics & Gynecology Marsha Fields PA-C [address] [facility] [address] [place] [phone] Health Maintenance Due Date Last Done Comments EYE EXAM 1997 VARICELLA VACCINES (1 of 2 - 13+ 2000 2-dose series) FOOT EXAM 2005 DTaP,Tdap,and Td Vaccines (1 - 2006 Tdap) INFLUENZA VACCINE 07/28/2019 HgA1C 12/14/2019 06/13/2019 CREATININE (SERUM) 06/13/2020 06/13/2019, 06/13/2019, 04/29/2019, Additional history exists LDL-C 06/13/2020 06/13/2019 URINE MICROALBUMIN 06/13/2020 06/13/2019 PAP SMEAR 05/01/2022 05/01/2019 PNEUMOCOCCAL 0-64 YEARS COMBINED Completed 06/13/2019 SERIES documented as of this encounter Results Not on filedocumented in this encounter Visit Diagnoses Diagnosis Allergic sinusitis - Primary Allergic rhinitis, cause unspecified documented in this encounter Insurance Payer Benefit Plan Subscriber ID Effective Phone Address Type / Group Dates [facility] xxxxxxxxx 2019-Prese Medicaid HEALTHCARE COMM STAR PLUS nt PLAN - MANAGED MEDICAID MEDICARE MEDICARE PART xxxxxxxxxxx 2019-Presdharmesh [phone] Medicare A & B nt [phone] [place] [phone] documented as of this encounter Advance Directives Name Relationship Healthcare Agent Communication Relationship Michelet Brower Life Partner Primary healthcare agent Miranda Morales Sibling Primary healthcare agent
--- OUTSIDE RECORDS SUMMARY | 2019-08-02 15:56 | XMS REPORT ---
:1985 Author Organization [facility] Care Team Providers Name Role Phone Klarissa Delgado Provider Role Unavailable Allergies, Adverse Reactions, Alerts Substance Reaction Event Type N.K.D.A. Info Not Available Non Drug Allergy Problems Problem Type Condition Code Onset Dates Condition Status Assessment Morbid obesity E66.01 Active Assessment Dietary surveillance and counseling Z71.3 Active Assessment Uncontrolled type 2 diabetes E11.65 Active mellitus with hyperglycemia Assessment Essential hypertension I10 Active Problem Migraine G43.909 Active Problem Diabetes E11.9 Active Problem Essential hypertension I10 Active Problem Asthma J45.909 Active Problem Sinus problem J34.9 Active Problem Obesity (BMI 30-39.9) E66.9 Active Problem Rash and nonspecific skin eruption R21 Active Problem Hypercholesterolemia E78.00 Active Problem Dizziness R42 Active Problem Allergic rhinitis, unspecified J30.9 Active seasonality, unspecified trigger Problem Depression screening Z13.31 Active Problem Constipation, unspecified K59.00 Active constipation type Problem Generalized weakness R53.1 Active Problem Uncontrolled type 2 diabetes E11.65 Active mellitus with hyperglycemia Problem Ingrown toenail of right foot L60.0 Active Problem Pain of upper abdomen R10.10 Active Problem Seasonal allergies J30.2 Active Problem Shortness of breath R06.02 Active Problem Daily headache R51 Active Problem Frequent headaches R51 Active Problem Epigastric pain R10.13 Active Assessment Daily headache R51 Active Problem Right upper quadrant pain R10.11 Active Assessment Allergic rhinitis, unspecified J30.9 Active seasonality, unspecified trigger Problem Anxiety F41.9 Active Problem High blood pressure I10 Active Assessment Constipation, unspecified K59.00 Active constipation type Problem Difficulty sleeping G47.9 Active Problem Dietary surveillance and counseling Z71.3 Active Problem Left ovarian cyst N83.202 Active Problem Morbid obesity E66.01 Active Problem Uterine bleeding N93.9 Active Medications Medication Code Code Instructions Start End Status Dosage System Date Date Atorvastatin [facility] 58634841126 10 MG Orally Active 1 tablet Calcium Once a day Orphenadrine [facility] [address]-10 100 MG Orally Active as directed Citrate ER Amoxicillin [facility] 41093251963 500 MG Orally Active 1 capsule Twice a day Meclizine HCl [facility] 07250290525 25 MG Orally April Active 1 tablet as Twice daily , needed for 2019 dizziness BusPIRone HCl [facility] 22634645111 7.5 MG Orally April 18, Active 1 tablet as Twice a day 2018 needed for anxiety Loratadine [facility] 24541553143 10 MG Orally Active 1 tablet Once a day GlipiZIDE XL [facility] 16061252262 5 MG Orally Active 1 tablet with Once a day food Farxiga [facility] 60304106236 5mg Orally May Active 1 tablet Once daily 2018 2019 Pioglitazone HCl [facility] 51873593422 15 MG Orally May Active 1 tablet Once a day for 05, diabetes 2019 Alogliptin [facility] 90073506681 25 MG Orally April Active 1 tablet Benzoate Once a day for 28, diabetes 2019 Triamcinolone [facility] 06015261989 0.1 % April Active 1 application Acetonide Externally 28, to affected Twice a day 2019 areas Lisinopril [facility] 16272468589 5 MG Orally Active 1 tablet Once a day Vitamin D [facility] 91425191075 2000 UNIT Active 1 tablet Orally Once a day [place] [facility] 47886454787 10 MG orally Jun 28Sep Active 1 tablet Twice a day 2018 Results No Known Results Summary Purpose eClinicalWorks Submission
--- OUTSIDE RECORDS SUMMARY | 2019-08-02 15:56 | XMS REPORT | Summary of Care ---
:1985 Author Organization [facility] Address [address] [place] [id number] Care Team Providers Name Role Phone Karoline Alvarez Primary Care Provider Reason for Referral (Routine) Status Reason Specialty Diagnoses / Referred By Referred To Procedures Contact Contact New Request Dietary and Diagnoses Type 2 diabetes mellitus without complication, without long-term current use of insulin Obesity (BMI 35.0-39.9 without comorbidity) Karoline Alvarez Nutritional Service Procedures CONSULT/REFERRAL NUTRITION CLIENT EVALUATOR [address] [address] Reason for Visit Reason Comments Follow-up RUNNY NOSE Cough Congestion Encounter Details Date Type Department Care Team Description 07/01/2019 Office Visit [facility] Family Karoline Alvarez FNP Acute recurrent ethmoidal sinusitis (Primary Dx); [facility] [place] [address] Medication refill; [address] Type 2 diabetes mellitus without complication, without long-term current use of insulin; [place] [address] Obesity (BMI 35.0-39.9 without comorbidity) [id number] [place], [place] [phone] Allergies Active Allergy Reactions Severity Noted Date Comments Ibuprofen Rash 04/19/2017 documented as of this encounter (statuses as of 07/01/2019) Medications Medication Sig Dispensed Refills Start End Status Date Date lisinopril 20 mg tablet Take 5 mg by mouth 0 Active daily. GLIPIZIDE ORAL Take by mouth. 0 Active atorvastatin calcium Take by mouth. 0 Active (ATORVASTATIN ORAL) sod jrgvc-[id number] Use 1 Bottle in each 1 Each [...] mg tablet daily. fluticasone propionate Use 1 Stafford in each 16 g 2 Active (FLONASE [...] Candidal skin infection fluticasone (FLONASE Use 1 Stafford in each 1 Bottle 0 Active SENSIMIST) [...] as of this encounter (statuses as of 07/01/2019) Active Problems Problem Noted Date Type 2 [...] as of this encounter (statuses as of 07/01/2019) Immunizations Name Administration Dates Next Due Pneumococcal [...] of this encounter Last Filed Vital Signs Vital Sign Reading Time Taken Comments Blood Pressure 124/86 07/01/2019 1:36 PM CDT Pulse 72 07/01/2019 1:36 PM CDT Temperature 37.1 C (98.7 F) 07/01/2019 1:36 PM CDT Respiratory Rate 16 07/01/2019 1:36 PM CDT Oxygen Saturation - - Inhaled Oxygen Concentration - - Weight 102.5 kg (226 lb) 07/01/2019 1:36 PM CDT Height 162.6 cm (5' 4") 07/01/2019 1:36 PM CDT Body Mass Index 38.79 07/01/2019 1:36 PM CDT documented in this encounter Patient Instructions Patient InstructionsKaroline Alvarez FNP - 07/01/2019 1:20 PM CDT Diabetes:Informacin sobre el tamao de las raciones y porciones Erinn buena dez general: Dedique la mitad de galan plato a verduras y ensalada andre. Divida la otra mitad entre protenas y carbohidratos. La fruta es erinn buena seleccin para el postre. Raciones y porciones.Cul es la diferencia? Estos trminos pueden prestarse a confusin. Peroaprender a medir correctamente el tamao de las porciones puede ayudarle a calcular la cantidad de carbohidratos y otros alimentos que ingiere cada da y resultarle muy til para controlar el peso. Raciones y porciones Se usan muchas palabras diferentes para describir las cantidades de comida. Si galan proveedor de atencin mdica utiliza erinn palabra de cuyo significado usted no est seguro, no dude en preguntar. Wyatt podr ayudarle a conocer la diferencia entre raciones y porciones. Erinn racin (serving size)es erinn cantidad fija. Los fabricantes de alimentos utilizan nilda trmino para describir artie productos. Por ejemplo, la etiqueta en un paquete de cereales puede decir que 1 taza de cereales secos=1 racin. Unaporcin es la cantidad de alimento que usted come o pone en el plato angeli erinn comida. Por ejemplo, usted puede comer 2 tazas de cereales angeli el desayuno. Onzas: 2 o 3 onzas es aproximadamente el tamao de la munoz de la mano. 1 Taza: 1 taza (o erinn porcin de tamao intermedio) tiene aproximadamente el tamao de un puo. Media taza: Media taza es aproximadamente el tamao de la karthik de galan mano. School Admissions Representative usar la informacin sobre raciones (servings) La porcin que usted decida comer (cierra jen 2 tazas de cereal) puede ser mayor que el tamao de erinn racin indicado en la etiqueta (1 taza de cereal).Por eso es til medir o pesar los alimentos que va a comer. Puesto que los valores indicados en las etiquetas de los alimentos se basan en raciones, usted necesita saber cuntas raciones consume en cada comida. Lleve cuenta de los tamaos de las raciones Cuando est planeando comer un bocadito o erinn comida, recuerde el tamao de las raciones.Si no tiene a mano tazas de medir o erinn balanza, hay maneras de calcular a mikayla el tamao de las raciones, jen comparando la cantidad de alimento con el tamao de artie lilo (noemy las figuras). Controle el tamao de las porciones Si le preocupa galan peso, puede ser til que reduzca el tamao de las porciones.Puede comer ms de erinn racin a la vez, marc para evitar comer demasiado en erinn comida, aprenda a controlar el tamao de las porciones. Erinn porcin es la cantidad de cada tipo de comida en galan plato. Low el diagrama jen ejemplo de porciones gabriela equilibradas. Date Last Reviewed: 01/30/201419998058-9[address] [employer] [place] [address]. Todos los derechos reservados. Esta informacin no pretende sustituir la atencin mdica profesional. Slo galan mdico puede diagnosticar y tratar un problema de domingo. Diabetes:Informacin sobre el tamao de las raciones y porciones Erinn buena dez general: Dedique la mitad de galan plato a verduras y ensalada andre. Divida la otra mitad entre protenas y carbohidratos. La fruta es erinn buena seleccin para el postre. Raciones y porciones.Cul es la diferencia? Estos trminos pueden prestarse a confusin. Peroaprender a medir correctamente el tamao de las porciones puede ayudarle a calcular la cantidad de carbohidratos y otros alimentos que ingiere cada da y resultarle muy til para controlar el peso. Raciones y porciones Se usan muchas palabras diferentes para describir las cantidades de comida. Si galan proveedor de atencin mdica utiliza erinn palabra de cuyo significado usted no est seguro, no dude en preguntar. Wyatt podr ayudarle a conocer la diferencia entre raciones y porciones. Erinn racin (serving size)es erinn cantidad fija. Los fabricantes de alimentos utilizan nilda trmino para describir artie productos. Por ejemplo, la etiqueta en un paquete de cereales puede decir que 1 taza de cereales secos=1 racin. Unaporcin es la cantidad de alimento que usted come o pone en el plato angeli erinn comida. Por ejemplo, usted puede comer 2 tazas de cereales angeli el desayuno. Onzas: 2 o 3 onzas es aproximadamente el tamao de la munoz de la mano. 1 Taza: 1 taza (o erinn porcin de tamao intermedio) tiene aproximadamente el tamao de un puo. Media taza: Media taza es aproximadamente el tamao de la karthik de galan mano. School Admissions Representative usar la informacin sobre raciones (servings) La porcin que usted decida comer (cierra jen 2 tazas de cereal) puede ser mayor que el tamao de erinn racin indicado en la etiqueta (1 taza de cereal).Por eso es til medir o pesar los alimentos que va a comer. Puesto que los valores indicados en las etiquetas de los alimentos se basan en raciones, usted necesita saber cuntas raciones consume en cada comida. Lleve cuenta de los tamaos de las raciones Cuando est planeando comer un bocadito o erinn comida, recuerde el tamao de las raciones.Si no tiene a mano tazas de medir o erinn balanza, hay maneras de calcular a mikayla el tamao de las raciones, jen comparando la cantidad de alimento con el tamao de artie lilo (noemy las figuras). Controle el tamao de las porciones Si le preocupa galan peso, puede ser til que reduzca el tamao de las porciones.Puede comer ms de erinn racin a la vez, marc para evitar comer demasiado en erinn comida, aprenda a controlar el tamao de las porciones. Erinn porcin es la cantidad de cada tipo de comida en aglan plato. Low el diagrama jen ejemplo de porciones gabriela equilibradas. Date Last Reviewed: 01/30/201419992030-3223 [employer] [place] [id number]. Todos los derechos reservados. Esta informacin no pretende sustituir la atencin mdica profesional. Slo galan mdico puede diagnosticar y tratar un problema de domingo. Comidas sanas para la diabetes Un proveedor de atencin mdica le ayudar a preparar un plan de comidas que sea adecuado a artie necesidades. Pdale a galan equipo de atencin mdica que le ayude a preparar un plan de comidas adecuado a artie necesidades. Nilda plan establecer el horario de artie comidas, el tipo de alimentos que debe comer y la cantidad de cada lissette de ellos. No es necesario que deje de comer todas las cosas que le gustan, marc deber seguir ciertas pautas. Elija carbohidratos saludables Los almidones, las azcares y la fibra son todos tipos de carbohidratos. La fibra puede ayudarle a bajar galan colesterol y triglicridos. Tambin es un alimento saludable para el corazn. Usted debe consumir de 20 a 35 gramos de fibra total todos los cedillo. Entre los alimentos ricos en fibra, se encuentran los siguientes: Mota y cereales integrales Pascual bulgur Arroz flores Pastas de pascual integral Frutas y verduras Frijoles y chcharos secos Lleve la cuenta de los carbohidratos que consume. Wyatt puede ayudarle a mantener el equilibrio adecuado entre la actividad fsica y los medicamentos. La cantidad de carbohidratos necesarios varar para cada persona, dependiendo de muchas cosas jen galan domingo, los medicamentos que deisi y qu archer activo se mantiene. Puede empezar con unos 45 a 60 gramos de carbohidratos por comida, dependiendo de galan situacin. Estos son algunos ejemplos de alimentos que contienen unos 15 gramos de carbohidratos (1 porcin decarbohidratos): 1/2 taza de fruta enlatada o congelada Erinn fruta pequea (4 onzas) 1 rebanada de mota 1/2 taza de lilly 1/3 de taza de arroz 4 a 6 galletas saladas 1/2 Frisian muffin 1/2 taza de frijoles negros 1/4 de papa azada, brian (3 onzas) 2/3 de taza de yogur natural sin grasa 1 taza de sopa 1/2 taza de guizado 6 "nuggets" de sam 1 bownie de 2 pulgadas cuadradas o un pastel sin glasear 2 galletas dulces pequeas 1/2 taza de helado o de sorbete Escoja alimentos protenicos sanos Las protenas bajas en grasa pueden ayudarle a controlar el peso y a mantener micah el corazn. Entre los alimentos protenicos bajos en grasa, se encuentran los siguientes: Pescado Protenas vegetales jen las de los frijoles y chcharos secos, las nueces y los productos derivados de la soya, jen el tofu y la leche de soya Carne magra a la que se le sotomayor quitado toda la grasa visible Carne de ave sin la piel Leche, queso o yogur bajos en grasa o sin grasa Limite las grasas no saludables y el azcar Las grasas saturadas y las grasas trans no son buenas para el corazn porque aumentan el colesterolLDL (landon). Adems, la grasa tiene un alto contenido de caloras y le puede hacer ganar peso. Parareducir la cantidad de grasas malas y azcar, limite el consumo de los siguientes alimentos: Mantequilla y margarina Aceite de munoz o de adrienne Crema o giselle Queso Tocino Yee fras Helados Dulces, pasteles, madalenas y donas Mermeladas y gelatinas Chocolatinas Refrescos azucarados Cunto debe comer La cantidad de comida que ingiere afecta el nivel de azcar en galan tea y galan peso. Galan equipo de atencin mdica le dir cunto debe comer de cada clase de alimentos. Utilice tazas y cucharas de medir, y erinn balanza de cocina para medir las porciones. Aprenda a identificar visualmente el tamao correcto de erinn porcin en galan plato. Wyatt le ser til cuando coma fuera de casa y no pueda medir las porciones. Coma solamente el nmero de porciones que le hayan dado en galan plan de comidas para cada tipo de alimento. No se sirva por segunda vez. Aprenda a leer las etiquetas de los alimentos. Asegrese de saber cunto es erinn porcin, y la cantidad total de carbohidratos, fibra, caloras, az car y grasa saturada y trans que tiene. Busquealternativas ms saludables para los alimentos que tengan azcar aadida. Planifique de antemano para las fiestas de manera que an pueda divertirse sin sobrepasarse con alimentos poco saludables. D un buen ejemplo trayendo un platillo saudable a los "potlucks". Elija bocadillos saludables Cuando se habla de bocadillos se piensa en alimentos con azcar aadida y grasas, marc hay otras opciones de bocadillos que son ms saludables. Estas son algunas ideas que puede elegir: Bocadillos con menos de 5 gramos de carbohidratos Erinn unidad de queso en tiras (string cheese) Romel ramas de apio con 1 cucharada de mantequilla de cacahuate 5 tomates tipo "valenzuela" con 1 cucharada de aderezo tipo "ranch" 1 huevo alba 1/4 de taza de arndanos azules (blue berries) 5 zanahorias "baby" 1 taza de palomitas de maiz "light" 1/2 taza de gelatina sin azcar 15 almendras Bocadillos con entre 10 y 20 gramos de carbohidratos aproximadamente 1/3 de taza de "hummus" con trozos de vegetales sin almidon (zanahorias, pimientos verdes, brcoli, apio o erinn combinacin) 1/2 taza de fruta fresca o enlatada con 1/4 de taza de requezn (cottage cheese) 1/2 taza de ensalada de atn con 4 galletas saladas 2 pasteles de arroz (rice cakes) y erinn cucharada de mantequilla de cacahuate 1 manzana o 1 naranja pequeas 3 tazas de palomitas de ann "light" 1/2 sndwich de pavo que tenga erinn rebanada de mota de pasucal integral, 2 onzas de pavo y mostaza El tamao de las porciones es importante para controlar el azcar en la tea y mantener un peso saludable. Aprovisinese de bocadillos saludables para que los tenga siempre a mano. Cundo debe comer Galan plan de comidas probablemente incluir desayuno, almuerzo, audiovisual aids technician y algunos bocadillos entre comidas. Intente que artie comidas y bocadillos candice a la misma hora todos los cedillo. Coma todassus comidas y bocadillos. Saltarse erinn comida o bocadillo puede hacer que baje demasiado el nivel de azcar en galan tea y provocar que coma excesivamente ms tarde, con lo que el nivel de azcar en galan tea podra elevarse demasiado. Date Last Reviewed: 02/24/201419998469-70[address] [employer] [place] [id number]. Todos los derechos reservados. Esta informacin no pretende sustituir la atencin mdica profesional. Slo galan mdico puede diagnosticar y tratar un problema de domingo. Qu pedir en un restaurante si tiene diabetes [place] gabriela es erinn parteimportantede mantener elazcar en la tea en los niveles deseables. Usted solo necesita hacer elecciones saludables. Si come fuera de galan casa: Pruebe estas sugerencias Intente programar galan comida fuera de casa para que sea en el mismo horario en que come habitualmente. De ser posible, genoveva erinn reservacin para evitar tener que esperar para comer. Si no puede hacer erinn reservacin, intente llegar al restaurante en un momento en el que no haya tanta gente para reducir galan tiempo de espera. Coma erinn fruta pequea o un carbohidrato con almidn a la hora en que come normalmente si se va a demorar galan comida ms de lo usual. Si nunca fue a porsche restaurante, llame antes de ir para noemy si el restaurante puede preparar erinn comida que se adapte a galan plan. Adriana puede buscar el restaurante en Internet y noemy el men antes de ir. Lleve con usted algunas galletas en theresa de que tenga que esperar un tiempo considerable en el restaurante. Pregunte dogger preparan los alimentos antes de ordenarlos. Escoja alimentos asados, al vapor, a la tom o al horno y no los que son fritos, salteados o empanados. Pida que le traigan aparte las salsas y los aderezos. Coma erinn cantidad que se acomode a galan plan de comidas y lleve el rowena a casa. [place] los postres para ocasiones especiales. Y, cuando lo genoveva, escoja un postre pequeo o comprtalo con un amigo o familiar. Escoja opciones saludables Comida rpida Ensalada de verduras con aderezolightaparte Sndwich de sam asado, al horno o a la tom Papa al horno con verduras o hierbas Sndwich de pavo o de rosbif Comida mexicana Enchilada de sam sin queso ni crema agria Frijoles enteros (que no candice refritos) y arroz Burrito chico con frijoles enteros y sam Fajitas de sam o de pescado Restaurante de yee Carne magra de res asada o a la tom Papa al horno con verduras o hierbas Sam asado o al horno (sin piel) Verduras al vapor Comida asitica Dumplingsopotstickersal vapor Yee o pescados, al horno, sancochados o al vapor Sushiosashimi Arroz al vapor o fideos hervidos(erinn porcin equivale a 11/29 de taza) Date Last Reviewed: 01/29/201419998881-3024 [employer] [place] [id number]. Todos los derechos reservados. Esta informacin no pretende sustituir la atencin mdica profesional. Slo galan mdico puede diagnosticar y tratar un problema de domingo. Antes de empezar galan plan de ejercicio para la diabetes La buena forma fsica es muy importante para las personas con diabetes.Estar en forma significa mejorar la domingo aadiendo actividad fsica a galan rutina diaria. Hable con galan proveedor de atencin mdica antes de empezar. Es posible que deba hacerse unchequeo mdico antes de empezar galan plan deejercicio. Asimismo, la realizacin de ciertas pruebas permitir averiguar dogger responder a un programa de ejercicio. Suchequeo mdico Un chequeo mdico ayuda a asegurar que galan plan de ejercicio sea el ms adecuado para usted. Tambin reduce al mnimo los riesgos que puede acarrear la actividad fsica. Jen parte de suchequeo mdico es posible que le deisy: Un anlisis de hemoglobina A1C. En nilda anlisis se mide el nivel medio de glucosa (azcar) angeli un perodo de 2 a 3 meses.Los resultados delan lisis A1C suelen darse en forma de porcentaje. Marc ahora tambin se da jen erinn cifra que representa el promedio de glucosa estimada (eAG, por artie siglas en ingls). A diferencia del porcentaje A1C, el eAG se da jen erinn cifra similar a las cifras que aparecen en galan monitoreo diario de glucosa. Es posible que galan proveedor de atencin mdica quiera revisar galan corazn. La diabetes puede causar problemas cardacos, marc un programa de ejercicio puede ayudar a mejorar estos probemas. Estar en buena forma fsica tambin puede ayudarle a mejorar galan nivel de colesterol y de presin arterial. El proveedor de atencin mdica podra revisar tambin la domingo de artie pies.Las personas con diabetes pueden desarrollar problemas en los pies. Galan proveedor de atencin mdica podr examinarle los pies antes de aumentar galan nivel de actividad. Tmese un tiempo para encontrar zapatos que leden soporte a artie pies cuando genoveva ejercicio. Si le hacen erinn prueba de esfuerzo angeli el ejercicio Erinn prueba de esfuerzo angeli el ejercicio muestra dogger responde el corazn a la actividad fsica y qu nivel de ejercicio es adecuado para usted.Le colocarn pequeos electrodos en el pecho ya continuacin caminar sobre erinn cinta rodante o pedalear en erinn bicicleta estacionaria mientras le miden la frecuencia cardaca. Si le hacen esta prueba, el proveedor de atencin m dica le kimberly ms jaiden. Date Last Reviewed: 02/24/[id number] [employer]. [address] [place] [address], [place] [address]. Todos los derechos reservados. Esta informacin no pretende sustituir la atencin mdica profesional. Slo galan mdico puede diagnosticar y tratar un problema de domingo. documented in this encounter Progress Notes Karoline Alvarez FNP - 07/01/2019 1:20 PM CDT Cc: Chief Complaint Patient presents with Follow-up RUNNY NOSE Cough Congestion Mckenna Haney is a 34 year old female. Patient was seen June 17 for sinusitis, given steroid spray and antihistamine with minimal to no relief. She continues to have sinus pressures and dry to productive cough. She is also wanting refills on her diabetes medication, the dose she's been taking was a sample given by her old doctor, in addition, she wants to be referred to a chef teacher for diet modification for both weiight loss and diabetes control. Sinus Problem Pain details: Location: Frontal Quality: Pressure Severity: Moderate Timing: Constant Progression: Unchanged Chronicity: Recurrent Context: allergies Relieved by: Steroid sprays Ineffective treatments: Steroid sprays and oral decongestants Associated symptoms: congestion, cough, fatigue and rhinorrhea Associated symptoms: no chest pain, no chills, no ear pain, no fever, no headaches, no hoarse voice,no mouth breathing, no nausea, no shortness of breath , no sneezing, no snoring, no sore throat, no swollen glands, no tooth pain, no vertigo, no vomiting and no wheezing Congestion: Location: Nasal Interferes with sleep: no Interferes with eating/drinking: no Cough: Cough characteristics: Non-productive Sputum characteristics: Nondescript Severity: Mild Onset quality: Gradual Timing: Intermittent Progression: Unchanged Chronicity: New Risk factors: asthma and diabetes Allergies Mckenna is allergic to ibuprofen. Medications Outpatient Medications Prior to Visit Medication Sig Dispense Refill fluticasone (FLONASE SENSIMIST) 27.5 mcg/actuation nasal spray Use 1 Stafford in each nostril 2 (two) times daily as needed for Congestion/Allergies for up to 30 days. 1 Bottle 0 nystatin 100,000 unit/gram powder Apply to area(s) 3 (three) times daily for 21 days. 1 Bottle 0 famotidine 20 mg tablet Take 20 mg by mouth 2 (two) times daily. Indications : gastroesophageal reflux disease fluticasone propionate (FLONASE ALLERGY RELIEF) 50 mcg/actuation nasal spray Use 1 Stafford in eachnostril daily for 30 days. 16 g 2 Fluticasone-Salmeterol (ADVAIR DISKUS) 100-50 mcg/dose inhalation disk Inhale 1 Puff every 12 (twelve) hours. 60 Each 1 medroxyPROGESTERone 10 mg tablet Take 10 mg by mouth daily. naproxen 500 mg tablet Take 1 tablet by mouth 2 (two) times daily as needed for Pain (scale 4-6)for up to 30 days. Indications: lower backache 45 tablet 0 dicyclomine (BENTYL) 10 mg capsule Take 1 capsule by mouth every 8 (eight) hours as needed for Abdominal pain. 30 capsule 0 fexofenadine 180 mg tablet Take 1 tablet by mouth daily. 30 tablet 0 busPIRone 7.5 mg tablet TAKE 1 TABLET BY MOUTH TWICE DAILY NEEDED FOR ANXIETY 0 naproxen (NAPROSYN) 500 mg tablet Take 1 tablet by mouth 2 (two) times daily with meals. 10 tablet 0 loratadine 10 mg tablet Take 1 tablet by mouth daily. 30 tablet 0 sod fbmhx-irkzsy-prqumf bottle (NEILMED SINUS RINSE COMPLETE) pkdv Use 1 Bottle in each nostril 2 (two) times daily. Use in hot shower 1 hour before bedtime 1 Each 0 atorvastatin calcium (ATORVASTATIN ORAL) Take by mouth. GLIPIZIDE ORAL Take by mouth. lisinopril 20 mg tablet Take 5 mg by mouth daily. No facility-administered medications prior to visit. Histories Past Medical History: Diagnosis Date Anxiety Genital herpes type 1 HTN (hypertension) Type 2 diabetes mellitus Past Surgical History: Procedure Laterality Date CHOLECYSTECTOMY Social History Socioeconomic History Marital status: Single Spouse name: Not on file Number of children: Not on file Years of education: Not on file Highest education level: Not on file Occupational History Not on file Social Needs Financial resource strain: Not on file Food insecurity: Worry: Not on file Inability: Not on file Transportation needs: Medical: Not on file Non-medical: Not on file Tobacco Use Smoking status: Never Smoker Smokeless tobacco: Never Used Substance and Sexual Activity Alcohol use: Never Frequency: Never Drug use: Never Sexual activity: Yes Partners: Male control/protection: None Lifestyle Physical activity: Days per week: Not on file Minutes per session: Not on file Stress: Not on file Relationships Social connections: Talks on phone: Not on file Gets together: Not on file Attends christian service: Not on file Active member of club or organization: Not on file Attends meetings of clubs or organizations: Not on file Relationship status: Not on file Intimate partner violence: Fear of current or ex partner: Not on file Emotionally abused: Not on file Physically abused: Not on file Forced sexual activity: Not on file Other Topics Concern Not on file Social History Narrative Pt denies physical and sexual abuse. [facility] with . Family History Problem Relation Age of Onset Diabetes Mother High cholesterol Mother Hypertension Mother Diabetes Father Hypertension Father Diabetes Maternal Grandmother High cholesterol Maternal Grandmother Diabetes Maternal Grandfather High cholesterol Maternal Grandfather Diabetes Paternal Grandmother High cholesterol Paternal Grandmother Diabetes Paternal Grandfather High cholesterol Paternal Grandfather Review of Systems Constitutional: Positive for fatigue and weight gain. Negative for chills and fever. HENT: Positive for congestion and rhinorrhea. Negative for ear pain, hoarse voice, sneezing and sorethroat. Eyes: Negative. Respiratory: Positive for cough. Negative for snoring, shortness of breath and wheezing. Cardiovascular: Negative. Negative for chest pain. Gastrointestinal: Negative for nausea and vomiting. Neurological: Negative for vertigo and headaches. Endocrine: Positive for weight gain. Vital Signs BP 124/86 (BP Location: Left arm, Patient Position: Sitting, BP CUFF SIZE: Adult Large) | Pulse 72| Temp 37.1 C (98.7 F) (Tympanic) | Resp 16 | Ht 5 ' 4" (1.626 m) | Wt 226 lb (102.5 kg) | LMP 06/03/2019 | BMI 38.79 kg/m Physical Exam Constitutional: She is oriented to person, place, and time. She appears well- developed and well-nourished. No distress. HENT: Head: Normocephalic. Right Ear: Hearing, tympanic membrane, external ear and ear canal normal. Left Ear: Hearing, tympanic membrane, external ear and ear canal normal. Nose: Rhinorrhea present. No sinus tenderness. Right sinus exhibits no maxillary sinus tenderness and no frontal sinus tenderness. Left sinus exhibits no maxillary sinus tenderness and no frontal sinustenderness. Mouth/Throat: Uvula is midline, oropharynx is clear and moist and mucous membranes are normal. No oropharyngeal exudate, posterior oropharyngeal edema, posterior oropharyngeal erythema or tonsillar abscesses. No tonsillar exudate. Eyes: Pupils are equal, round, and reactive to light. Conjunctivae and EOM are normal. Neck: Normal range of motion. Neck supple. No JVD present. No tracheal deviation present. No thyromegaly present. Cardiovascular: Normal rate, regular rhythm, normal heart sounds and intact distal pulses. Exam reveals no gallop and no friction rub. No murmur heard. Pulmonary/Chest: Effort normal and breath sounds normal. No respiratory distress. She has no wheezes. She has no rales. She exhibits no tenderness. Abdominal: Soft. Bowel sounds are normal. She exhibits no distension and no mass. There is no tenderness. There is no rebound and no guarding. Musculoskeletal: Normal range of motion. She exhibits no edema, tenderness or deformity. Lymphadenopathy: Head (right side): No submandibular, no tonsillar and no posterior auricular adenopathy present. Head (left side): No submental, no submandibular, no tonsillar, no preauricular and no posterior auricular adenopathy present. She has no cervical adenopathy. Right cervical: No superficial cervical, no deep cervical and no posterior cervical adenopathy present. Left cervical: No superficial cervical, no deep cervical and no posterior cervical adenopathy present. Neurological: She is alert and oriented to person, place, and time. She displays normal reflexes. Nocranial nerve deficit or sensory deficit. She exhibits normal muscle tone. Coordination and gait normal. Skin: Skin is warm and dry. Capillary refill takes less than 2 seconds. No rash noted. No erythema. No pallor. Nursing note and vitals reviewed. Assessment/Plan 1. Sinusitis: Continue flonase and claritin, Z-pack added due to prolonged symptoms. Avoid any knowntriggers. RTC is no relief, worse or new onset of symptoms. 2. Diabetes: medication refilled, continue to monitor blood sugars at home. Continue diabetes diet and routine exercise. 3. Obesity: referral made to director of technology for this and for diabetes control Plan of care, desired health behaviors, goals, and medication discussed with patient. Education resources provided and reviewed with AVS. Patient/guardian/family verbalized understanding & agrees to plan of care. This visit did not involve counseling and coordination that comprised more than 50% of the visit time. If applicable, the [place] [employer] database was accessed to review any controlled substance prescription claims data. The [employer] prescription claims data in [employer] was reviewed to assess patient compliance with the medication treatment plan. documented in this encounter Plan of Treatment Date Type Specialty Care Team Description 07/05/2019 Office Visit Obstetrics & Gynecology Claritza Velez MD [address] [place] [phone] 08/13/2019 Office Visit Obstetrics & Gynecology Marsha Fields PA-C [address] [place] [phone] Health Maintenance Due Date Last Done Comments [...] filedocumented in this encounter Visit Diagnoses Diagnosis Acute recurrent ethmoidal sinusitis - Primary Acute ethmoidal sinusitis Medication refill Issue of repeat prescriptions Type 2 diabetes mellitus without complication, without long-term current use of insulin Obesity (BMI 35.0-39.9 without comorbidity) Obesity, unspecified documented in this encounter Insurance Payer Benefit Plan / Subscriber ID Effective Dates Phone Address Type Group [facility] xxxxxxxxx 2019-Present Medicaid COMM PLAN - PLUS MANAGED MEDICAID documented as of this encounter Advance Directives Name Relationship Healthcare Agent Communication Relationship Michelet Brower Life Partner Primary healthcare agent Miranda Morales Sibling Primary healthcare agent
--- OUTSIDE RECORDS SUMMARY | 2019-08-02 15:56 | XMS REPORT | Summary of Care ---
:1985 Author Organization [facility] - Health Address [address] [place] [address] Care Team Providers Name Role Phone Karoline Alvarez Primary Care Provider Reason for Visit Reason Comments Lower Urinary Tract Symptoms Auth/Cert Status Reason Specialty Diagnoses / Referred By Referred To Procedures Contact Contact [facility] [address] [place] [address] [place] [address] Encounter Details Date Type Department Care Team Description 07/02/2019 Emergency [facility] Keisha Pichardo, Dysuria (Primary Dx) Department DO [address] [place] [address] [place] [address] [phone] Allergies Active Allergy Reactions Severity Noted Date Comments Ibuprofen Rash 04/19/2017 documented as of this encounter (statuses as of 07/02/2019) Medications Medication Sig Dispensed Refills Start End Status Date Date lisinopril 20 mg tablet Take 5 mg by mouth 0 Active daily. GLIPIZIDE ORAL Take by mouth. 0 Active atorvastatin calcium Take by mouth. 0 Active (ATORVASTATIN ORAL) sod lquyf-fuulwh-jwuqbj Use 1 Bottle in each 1 Each [...] mg tablet daily. fluticasone propionate Use 1 [place] in each 16 g 2 Active (FLONASE [...] Candidal skin infection fluticasone (FLONASE Use 1 [place] in each 1 Bottle 0 Active SENSIMIST) [...] as of this encounter (statuses as of 07/02/2019) Active Problems Problem Noted Date Type 2 [...] as of this encounter (statuses as of 07/02/2019) Immunizations Name Administration Dates Next Due Pneumococcal [...] Sign Reading Time Taken Comments Blood Pressure 138/99 07/02/2019 11:24 AM CDT Pulse 71 07/02/2019 11:24 AM CDT Temperature 36.6 C (97.8 F) 07/02/2019 11:24 AM CDT Respiratory Rate 14 07/02/2019 11:24 AM CDT Oxygen Saturation 100% 07/02/2019 11:24 AM CDT Inhaled Oxygen Concentration - - Weight 103.4 kg (228 lb) 07/02/2019 11:24 AM CDT Height 162.6 cm (5' 4") 07/02/2019 11:24 AM CDT Body Mass Index 39.14 07/02/2019 11:24 AM CDT documented in this encounter Discharge Instructions Keisha Aleman DO - 07/02/2019DIAGNOSIS 1. Pelvic Pain NO LIFE-THREATENING FINDINGS ON TODAY'S EXAM. PROCEDURES IN THE ER TODAY: Urine test MEDICATIONS ADMINISTERED IN THE ER TODAY: None YOUR PRESCRIPTIONS AND [id number] MEDICATION RECOMMENDATIONS: None SPECIAL CARE INSTRUCTIONS: None FOLLOW-UP RECOMMENDATIONS: RECOMMEND FOLLOW-UP WITH A PRIMARY CARE PROVIDER OR SPECIALIST IN 2-5 DAYS, ESPECIALLY IF NO IMPROVEMENT IN SYMPTOMS. TO FOLLOW-UP WITHIN THE [facility], TRY THESE OPTIONS (CLINIC APPOINTMENTS AVAILABLE ON [id number] BASIS): 1. SCHEDULE AN APPOINTMENT ONLINE AT [email or web address] 2. OR CALL THE [facility] ACCESS CENTER AT OR 3. OR CALL YOUR [facility] PHYSICIAN'S OFFICE DIRECTLY IF YOU ARE ALREADY AN ESTABLISHED [facility] PATIENT. OR, YOU MAY FOLLOW-UP WITH A PROVIDER OF YOUR CHOICE, SUCH : 1. A PHYSICIAN OF YOUR CHOICE 2. [facility] AND [facility], . LOCATIONS IN [facility] 3. [facility], [address] [place] [address]; [phone] RETURN TO ER FOR WORSENING OF SYMPTOMS. AttachmentsThe following attachments cannot be sent through Care Everywhere.Dysuria, Uncertain Cause (Adult) (Lao)documented in this encounter Plan of Treatment Date Type Specialty Care Team Description 07/05/2019 Office Visit Obstetrics & Gynecology Claritza Velez MD [address] [place] [phone] 08/13/2019 Office Visit Obstetrics & Gynecology Marsha Fields PA-C [address] [place] [phone] Health Maintenance Due Date Last Done Comments [...] 06/13/2019 SERIES documented as of this encounter Procedures Procedure Name Priority Date/Time Associated Comments Diagnosis POCT TEST BHARATHI 07/02/2019 11:36 AM Dysuria Results for this CDT procedure are in the results section. URINALYSIS STAT 07/02/2019 11:34 AM Dysuria Results for this CDT procedure are in the results section. NOTICE OF PRIVACY Routine 07/02/2019 11:14 AM PRACTICES CDT CONSENT/REFUSAL FOR Routine 07/02/2019 11:14 AM DIAGNOSIS AND CDT TREATMENT documented in this encounter Results POCT Test, Urine (07/02/2019 11:36 AM CDT) POCT PREG negative On board controls acceptable present with C Line Specimen Urine - URINE, CLEAN CATCH Urinalysis (07/02/2019 11:34 AM CDT) APPEARANCE Clear Clear [facility] COLOR Pale Yellow (A) Yellow [facility] PH 7.0 4.8 - 8.0 [facility] SP GRAVITY <=1.005 1.003 - 1.030 [facility] GLU U QUAL >1000 mg/dL (A) Negative [facility] BLOOD Negative Negative [facility] KETONES Negative Negative [facility] PROTEIN Negative Negative [facility] UROBILIN 0.2 mg/dL 0-1.0 mg/dL [facility] BILIRUBIN Negative Negative [facility] NITRITE Negative Negative [facility] LEUK TARA Negative Negative [facility] RBC/HPF 0 0 - 3 HPF [facility] WBC/HPF 0 0 - 5 HPF [facility] BACTERIA Negative Negative [facility] Specimen Urine - URINE, CLEAN CATCH Performing Organization Address City/State/Zipcode Phone Number [facility] CLIA: [id number], [address] [place] [address] documented in this encounter Visit Diagnoses Diagnosis Dysuria - Primary documented in this encounter Insurance Payer Benefit Plan / Subscriber ID Effective Dates Phone Address Type Group [facility] xxxxxxxxx 2019-Present Medicaid COMM PLAN - PLUS MANAGED MEDICAID documented as of this encounter Advance Directives Name Relationship Healthcare Agent Communication Relationship Michelet Brower Life Partner Primary healthcare agent Miranda Morales Sibling Primary healthcare agent
--- OUTSIDE RECORDS SUMMARY | 2019-08-02 15:56 | XMS REPORT | Summary of Care ---
:1985 Author Organization [facility] Address [address] [place] [address] Care Team Providers Name Role Phone Karoline Alvarez Primary Care Provider Reason for Visit Reason Comments Rx Concern/Question Pharmacy needing clarification on dosage Encounter Details Date Type Department Care Team Description 07/01/[address] [facility]- Karoline Alvarez FNP Rx Concern/Question [address] (Pharmacy needing [address] clarification on dosage [place], [place] [id number] ) [phone] [place], [place] [phone] Allergies Active Allergy Reactions Severity Noted Date Comments Ibuprofen Rash 04/19/2017 documented as of this encounter (statuses as of 07/02/2019) Medications Medication Sig Dispensed Refills Start End Status Date Date lisinopril 20 mg tablet Take 5 mg by mouth 0 Active daily. GLIPIZIDE ORAL Take by mouth. 0 Active atorvastatin calcium Take by mouth. 0 Active (ATORVASTATIN ORAL) sod [id number]-[id number] Use 1 Bottle in each 1 Each [...] mg tablet daily. fluticasone propionate Use 1 [place] in each 16 g 2 Active (FLONASE [...] Candidal skin infection fluticasone (FLONASE Use 1 [place] in each 1 Bottle 0 Active SENSIMIST) [...] Visit Obstetrics & Gynecology Claritza Velez MD [address] [place] [phone] 08/13/2019 Office Visit Obstetrics & Gynecology Marsha Fields PA-C [address] [place] [phone] Health Maintenance Due Date Last Done Comments [...] Results Not on filedocumented in this encounter Insurance Payer Benefit Plan / Subscriber ID Effective Phone Address Type Group Dates [facility] xxxxxxxxx 2019-Prese Medicaid HEALTHCARE COMM PLUS nt PLAN - MANAGED MEDICAID MANAGED MEDICARE MANAGED [id number] 2019-Prese Medicare Adv HMO GENERIC MEDICARE HMO nt HMO GENERIC documented as of this encounter Advance Directives Name Relationship Healthcare Agent Communication Relationship Michelet Brower Life Partner Primary healthcare agent Miranda Morales Sibling Primary healthcare agent
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
--- OUTSIDE RECORDS SUMMARY | 2019-08-02 15:57 | XMS REPORT | Summary of Care ---
:1985 Author Organization [facility] - Health Address [address] [place] [address] Care Team Providers Name Role Phone Karoline Alvarez Primary Care Provider Klarissa Delgado Insurance Hmo Reason for Visit Reason Comments Assessment Encounter Details Date Type Department Care Team Description 07/08/[address] [facility] Family Medicine Karoline Alvarez FNP Assessment - [place] [address] [place] [address] [place] [address] Allergies Active Allergy Reactions Severity Noted Date Comments Ibuprofen Rash 04/19/2017 documented as of this encounter (statuses as of 07/08/2019) Medications Medication Sig Dispensed Refills Start End Status Date Date lisinopril 20 mg tablet Take 5 mg by mouth 0 Active daily. GLIPIZIDE ORAL Take by mouth. 0 Active atorvastatin calcium Take by mouth. 0 Active (ATORVASTATIN ORAL) sod [id number] Use 1 Bottle in each 1 Each [...] mg tablet daily. fluticasone propionate Use 1 [place] in each 16 g 2 Active (FLONASE [...] Candidal skin infection fluticasone (FLONASE Use 1 [place] in each 1 Bottle 0 Active SENSIMIST) 27.5 nostril 2 (two) 9 019 mcg/actuation nasal times daily as sprayIndications: needed for Allergic sinusitis Congestion/Allergies for up to 30 days. dapagliflozin (FARXIGA) Take 1 tablet by 30 tablet 2 Active 5 mg tabletIndications: mouth daily for 90 9 019 Acute recurrent days. ethmoidal sinusitis documented as of this encounter (statuses as [...] Treatment Date Type Specialty Care Team Description 07/08/2019 Office Visit Family Medicine Karoline Alvarez FNP [address] [address] 07/26/2019 Office Visit Obstetrics & Gynecology Claritza Velez MD [address] [place] [phone] 08/13/2019 Office Visit Obstetrics & Gynecology Marsha Fields PA-C [address] [place] [phone] Health Maintenance Due Date Last Done Comments [...] Subscriber ID Effective Phone Address Type Group [facility] [id number] 2019-Prese Medicare Adv HEALTHCARE - HEALTHCARE DUAL nt HMO MANAGED COMPLETE HMO MEDICARE [facility] STAR xxxxxxxxx 2019-Prese Medicaid HEALTHCARE COMM PLUS nt PLAN - MANAGED MEDICAID documented as of this encounter Advance Directives Name Relationship Healthcare Agent Communication Relationship Michelet Brower Life Partner Primary healthcare agent Miranda Morales Sibling Primary healthcare agent
--- OUTSIDE RECORDS SUMMARY | 2019-08-02 15:57 | XMS REPORT | Summary of Care ---
:1985 Author Organization [facility] - [facility] Address [address] [place] [address] Care Team Providers Name Role Phone Karoline Alvarez Primary Care Provider Reason for Referral (Routine) Status Reason Specialty Diagnoses / Procedures Referred By Referred To Contact Contact New Request Diagnostic Diagnoses Female infertility associated with anovulation Velez, Radiology Procedures FL HYSTEROSALPINGOGRAM MD Claritza [address] [place] [phone] (Routine) Status Reason Specialty Diagnoses / Procedures Referred By Referred To Contact Contact New Request Diagnostic Diagnoses Female infertility associated with anovulation Velez, Radiology Procedures FL HYSTEROSALPINGOGRAM MD Claritza [address] [place] [phone] Reason for Visit Reason Comments INFERTILITY Encounter Details Date Type Department Care Team Description 07/05/2019 Office Visit [facility] Women's Claritza Velez MD Female infertility Healthcare- [address] associated with [address] [facility], [place], [place] anovulation (Primary [address] [phone] Dx) [place], [place] [phone] Allergies Active Allergy Reactions Severity Noted Date Comments Ibuprofen Rash 04/19/2017 documented as of this encounter (statuses as of 07/05/2019) Medications Medication Sig Dispensed Refills Start End Status Date Date lisinopril 20 mg tablet Take 5 mg by mouth 0 Active daily. GLIPIZIDE ORAL Take by mouth. 0 Active atorvastatin calcium Take by mouth. 0 Active (ATORVASTATIN ORAL) sod midir-pwqvpg-fojrjx Use 1 Bottle in each 1 Each [...] mg tablet daily. fluticasone propionate Use 1 [place] in each 16 g 2 Active (FLONASE [...] Candidal skin infection fluticasone (FLONASE Use 1 [place] in each 1 Bottle 0 Active SENSIMIST) [...] as of this encounter (statuses as of 07/05/2019) Active Problems Problem Noted Date Type 2 [...] as of this encounter (statuses as of 07/05/2019) Immunizations Name Administration Dates Next Due Pneumococcal [...] Sign Reading Time Taken Comments Blood Pressure 114/76 07/05/2019 3:26 PM CDT Pulse 81 07/05/2019 3:26 PM CDT Temperature 36.8 C (98.2 F) 07/05/2019 3:26 PM CDT Respiratory Rate 18 07/05/2019 3:26 PM CDT Oxygen Saturation - - Inhaled Oxygen Concentration - - Weight 102.5 kg (226 lb) 07/05/2019 3:26 PM CDT Height 162.6 cm (5' 4") 07/05/2019 3:26 PM CDT Body Mass Index 38.79 07/05/2019 3:26 PM CDT documented in this encounter Patient Instructions Patient InstructionsChris Cristobal Joel - 07/05/2019 3:00 PM CDT Clomiphene tablets Brand Names: Clomid, Serophene What is this medicine? CLOMIPHENE (KLOE mi feen) is a fertility drug that increases the chance of . It helps womenovulate (produce a mature egg) during their cycle. How should I use this medicine? Take this medicine by mouth with a glass of water. Follow the directions on the prescription label. Take exactly as directed for the exact number of days prescribed. Take your doses at regular intervals. Most women take this medicine for a 5 day period, but the length of treatment may be adjusted. Your doctor will give you a start date for this medication and will give you instructions on proper use.Do not take your medicine more often than directed. Talk to your b2b managed service sales exec regarding the use of this medicine in children. Special care may be needed. What side effects may I notice from receiving this medicine? Side effects that you should report to your doctor or health child care associate teacher as soon as possible: allergic reactions like skin rash, itching or hives, swelling of the face, lips, or tongue breathing problems changes in vision fluid retention nausea, vomiting pelvic pain or bloating severe abdominal pain sudden weight gain Side effects that usually do not require medical attention (report to your doctor or health child care associate teacher if they continue or are bothersome): breast discomfort hot flashes mild pelvic discomfort mild nausea What may interact with this medicine? herbal or dietary supplements, like blue cohosh, black cohosh, chasteberry, or DHEA prasterone What if I miss a dose? If you miss a dose, take it as soon as you can. If it is almost time for your next dose, take only that dose. Do not take double or extra doses. Where should I keep my medicine? Keep out of the reach of children. Store at room temperature between 15 and 30 degrees C (59 and 86 degrees F). Protect from heat, light, and moisture. Throw away any unused medicine after the expiration date. What should I tell my health care provider before I take this medicine? They need to know if you have any of these conditions: adrenal gland disease blood vessel disease or blood clots cyst on the ovary endometriosis liver disease ovarian cancer pituitary gland disease vaginal bleeding that has not been evaluated an unusual or allergic reaction to clomiphene, other medicines, foods, dyes, or preservatives (should not be used if you are already ) breast-feeding What should I watch for while using this medicine? Make sure you understand how and when to use this medicine. You need to know when you are ovulating and when to have sexual intercourse. This will increase the chance of a . Visit your doctor or health child care associate teacher for regular checks on your progress. You may need tests to check the hormone levels in your blood or you may have to use home-urine tests to check for ovulation. Try to keep any appointments. Compared to other fertility treatments, this medicine does not greatly increase your chances of having multiple babies. An increased chance of having twins may occur in roughly 5 out of every 100 womenwho take this medication. Stop taking this medicine at once and contact your doctor or health child care associate teacher if you think you are . This medicine is not for long-term use. Most women that benefit from this medicine do so within the first three cycles (months). Your doctor or health child care associate teacher will monitor your condition. This medicine is usually used for a total of 6 cycles of treatment. You may get drowsy or dizzy. Do not drive, use machinery, or do anything that needs mental alertnessuntil you know how this drug affects you. Do not stand or sit up quickly. This reduces the risk of dizzy or fainting spells. Drinking alcoholic beverages or smoking tobacco may decrease your chance of becoming . Limitor stop alcohol and tobacco use during your fertility treatments. NOTE:This sheet is a summary. It may not cover all possible information. If you have questions aboutthis medicine, talk to your doctor, pharmacist, or health care provider. Copyright 2018 Elsevier Clomiphene tablets Brand Names: Clomid, Serophene What is this medicine? CLOMIPHENE (KLOE mi feen) is a fertility drug that increases the chance of . It helps womenovulate (produce a mature egg) during their cycle. How should I use this medicine? Take this medicine by mouth with a glass of water. Follow the directions on the prescription label. Take exactly as directed for the exact number of days prescribed. Take your doses at regular intervals. Most women take this medicine for a 5 day period, but the length of treatment may be adjusted. Your doctor will give you a start date for this medication and will give you instructions on proper use.Do not take your medicine more often than directed. Talk to your b2b managed service sales exec regarding the use of this medicine in children. Special care may be needed. What side effects may I notice from receiving this medicine? Side effects that you should report to your doctor or health child care associate teacher as soon as possible: allergic reactions like skin rash, itching or hives, swelling of the face, lips, or tongue breathing problems changes in vision fluid retention nausea, vomiting pelvic pain or bloating severe abdominal pain sudden weight gain Side effects that usually do not require medical attention (report to your doctor or health child care associate teacher if they continue or are bothersome): breast discomfort hot flashes mild pelvic discomfort mild nausea What may interact with this medicine? herbal or dietary supplements, like blue cohosh, black cohosh, chasteberry, or DHEA prasterone What if I miss a dose? If you miss a dose, take it as soon as you can. If it is almost time for your next dose, take only that dose. Do not take double or extra doses. Where should I keep my medicine? Keep out of the reach of children. Store at room temperature between 15 and 30 degrees C (59 and 86 degrees F). Protect from heat, light, and moisture. Throw away any unused medicine after the expiration date. What should I tell my health care provider before I take this medicine? They need to know if you have any of these conditions: adrenal gland disease blood vessel disease or blood clots cyst on the ovary endometriosis liver disease ovarian cancer pituitary gland disease vaginal bleeding that has not been evaluated an unusual or allergic reaction to clomiphene, other medicines, foods, dyes, or preservatives (should not be used if you are already ) breast-feeding What should I watch for while using this medicine? Make sure you understand how and when to use this medicine. You need to know when you are ovulating and when to have sexual intercourse. This will increase the chance of a . Visit your doctor or health child care associate teacher for regular checks on your progress. You may need tests to check the hormone levels in your blood or you may have to use home-urine tests to check for ovulation. Try to keep any appointments. Compared to other fertility treatments, this medicine does not greatly increase your chances of having multiple babies. An increased chance of having twins may occur in roughly 5 out of every 100 womenwho take this medication. Stop taking this medicine at once and contact your doctor or health child care associate teacher if you think you are . This medicine is not for long-term use. Most women that benefit from this medicine do so within the first three cycles (months). Your doctor or health child care associate teacher will monitor your condition. This medicine is usually used for a total of 6 cycles of treatment. You may get drowsy or dizzy. Do not drive, use machinery, or do anything that needs mental alertnessuntil you know how this drug affects you. Do not stand or sit up quickly. This reduces the risk of dizzy or fainting spells. Drinking alcoholic beverages or smoking tobacco may decrease your chance of becoming . Limitor stop alcohol and tobacco use during your fertility treatments. NOTE:This sheet is a summary. It may not cover all possible information. If you have questions aboutthis medicine, talk to your doctor, pharmacist, or health care provider. Copyright 2018 Elsevier documented in this encounter Progress Notes Claritza Velez MD - 07/05/2019 3:00 PM CDJOSEPgena Haney is a 34 year old female presents for follow up. She had previously been seen by Dr. Ponce for pelvic pain attributed to physiologic cysts. Her pelvis US on 04/29 revealed a left ovarian cyst measuring 3.0 x 2.2 x 3.2 cm. The pain resolved with antiinflammatory agents. Dueto patient history of oligomenorrhea, she underwent an endometrial biopsy on 05/10/2019, which was wnl. She was placed on Provera 10 mg days 1-10 to regulate her menses. Considering patient history of HTN and her age, OCAs were not used. She also has a normal pap smear on 2018 as well as a normal TSH, LH, FSH. Today, she presents desiring . She has had a menstrual cycle for the past 2 months as she is taking Provera days 1-10 of each month. Her flow has lasted 4-5 days and was wnl. Menses before Provera therapy did not occur for months. She states her fathered 3 children, ages 9, 6, and 5 years.Patient had a spontaneous in 2018 and in 2013. She has not been able to get for a year. We dicussed the probable anovulatory cycles adding to her infertility and future use of clomid therapy. Patient was given information on clomid. Will obtain a HSG. Follow up 3 weeks. Claritza Velez MD documented in this encounter Plan of Treatment Date Type Specialty Care Team Description 07/26/2019 Office Visit Obstetrics & Gynecology lCaritza Velez MD [address] [place] [address] [phone] 08/13/2019 Office Visit Obstetrics & Gynecology Marsha Fields PA-C [address] [place] [phone] Name Type Priority Associated Diagnoses Order Schedule FL HYSTEROSALPINGOGRAM IMAGING Routine Female infertility ONCE for 1 Occurrences associated with starting 07/05/2019 anovulation until 07/05/2019 Health Maintenance Due Date Last Done Comments [...] filedocumented in this encounter Visit Diagnoses Diagnosis Female infertility associated with anovulation - Primary documented in this encounter Insurance Payer Benefit Plan / Subscriber ID Effective Dates Phone Address Type Group [facility] xxxxxxxxx 2019-Present Medicaid COMM PLAN - PLUS MANAGED MEDICAID documented as of this encounter Advance Directives Name Relationship Healthcare Agent Communication Relationship Michelet Brower Life Partner Primary healthcare agent Miranda Morales Sibling Primary healthcare agent
--- OUTSIDE RECORDS SUMMARY | 2019-08-02 15:57 | XMS REPORT | Summary of Care ---
:1985 Author Organization [facility] - [facility] Address [address] [place] [address] Care Team Providers Name Role Phone Karoline Alvarez Primary Care Provider Klarissa Delgado Insurance Hmo Reason for Referral (Routine) Status Reason Specialty Diagnoses / Procedures Referred By Referred To Contact Contact New Request Gastroenterology Diagnoses Gastroesophageal reflux disease, esophagitis presence not specified Antonio, Procedures CONSULT/REFERRAL GASTROENTEROLOGY GABI Ramey [address] [phone] Reason for Visit Reason Comments Dizziness Headache Fatigue Encounter Details Date Type Department Care Team Description 07/08/2019 Office Visit [facility] Family Karoline Alvarez Vertigo ( Primary Dx); [facility] Medication management; [address] [facility] [address] [facility] Gastroesophageal reflux disease, esophagitis presence not specified [address] [place] [phone] [place], [place] [phone] Allergies Active Allergy Reactions Severity Noted Date Comments Ibuprofen Rash 04/19/2017 documented as of this encounter (statuses as of 07/08/2019) Medications Medication Sig Dispensed Refills Start End Status Date Date GLIPIZIDE Take 2.5 mg by 0 Active ORALIndications: mouth daily. diabetes mellitus Indications: diabetes atorvastatin calcium Take by mouth. 0 Active (ATORVASTATIN ORAL) sod Use 1 Bottle in 1 Each 0 Active iqcah-xvoahp-ssdegt each nostril 2 019 bottle (NEILMED SINUS [...] tablet mouth daily. fluticasone propionate Use 1 [place] in 16 g 2 06/13/2 07/13/ Active [...] Candidal skin infection fluticasone (FLONASE Use 1 [place] in 1 Bottle 0 06/17/07/17/ Active SENSIMIST) [...] to endometriosis and is under care with [employer]EL[employer]. Today, her main compliant is dizziness (prescipitated [...] SENSIMIST) 27.5 mcg/actuation nasal spray Use 1 [place] in each nostril 2 (two) times daily [...] RELIEF) 50 mcg/actuation nasal spray Use 1 [place] in eachnostril daily for 30 days. 16 [...] by mouth daily. 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 RTC if no relief, worse or new onset of symptoms, problems or concerns. Plan of care, desired health behaviors, goals, and medication discussed with patient. Education resources provided and reviewed with AVS. Patient/guardian/family verbalized understanding & agrees to plan of care. This visit did not involve counseling and coordination that comprised more than 50% of the visit time. If applicable, the [facility] database was accessed to review any controlled substance prescription claims data. The [employer] prescription claims data in [employer] was reviewed to assess patient compliance with the medication treatment plan. documented in this encounter Plan of Treatment Date Type Specialty Care Team Description 07/25/2019 Office Visit Surgery Jeanette Pedro MD [address] [facility] [address] [place], [place] [address] 07/26/2019 Office Visit Obstetrics & Gynecology Claritza Velez MD [address] [place] [address] [phone] 08/13/2019 Office Visit Obstetrics & Gynecology Marsha Fields PA-C [address] [place] [address] [address] [place] [phone] Health Maintenance Due Date Last [...] ID Effective Phone Address Type Group Dates [facility] [id number] 2019-Prese Medicare Adv HEALTHCARE - HEALTHCARE DUAL nt HMO MANAGED COMPLETE HMO MEDICARE [facility] xxxxxxxxx 2019-Prese Medicaid HEALTHCARE COMM PLUS nt PLAN - MANAGED MEDICAID documented as of this encounter Advance Directives Name Relationship Healthcare Agent Communication Relationship Michelet Brower Life Partner Primary healthcare agent Miranda Morales Sibling Primary healthcare agent
--- OUTSIDE RECORDS SUMMARY | 2019-08-02 15:57 | XMS REPORT | Summary of Care ---
:1985 Author Organization [facility] - [facility] Address [address] [place] [address] Care Team Providers Name Role Phone Karoline Alvarez Primary Care Provider Reason for Referral (Routine) Status Reason Specialty Diagnoses / Procedures Referred By Referred To Contact Contact New Request Diagnostic Diagnoses Female infertility associated with anovulation Velez, Radiology Procedures FL HYSTEROSALPINGOGRAM MD Claritza [address] [place] [phone] (Routine) Status Reason Specialty Diagnoses / Procedures Referred By Referred To Contact Contact New Request Diagnostic Diagnoses Female infertility associated with anovulation Velez, Radiology Procedures FL HYSTEROSALPINGOGRAM MD Claritza [address] [place] [phone] Reason for Visit Reason Comments INFERTILITY Encounter Details Date Type Department Care Team Description 07/05/2019 Office Visit [facility] Women's Claritza Velez MD Female infertility Healthcare- [address] associated with [address] [facility], [place], [place] anovulation (Primary [address] [phone] Dx) [place], [place] [phone] Allergies Active Allergy Reactions Severity Noted Date Comments Ibuprofen Rash 04/19/2017 documented as of this encounter (statuses as of 07/05/2019) Medications Medication Sig Dispensed Refills Start End Status Date Date lisinopril 20 mg tablet Take 5 mg by mouth 0 Active daily. GLIPIZIDE ORAL Take by mouth. 0 Active atorvastatin calcium Take by mouth. 0 Active (ATORVASTATIN ORAL) sod ljyjw-fenaym-agwstn Use 1 Bottle in each 1 Each [...] mg tablet daily. fluticasone propionate Use 1 [place] in each 16 g 2 Active (FLONASE [...] Candidal skin infection fluticasone (FLONASE Use 1 [place] in each 1 Bottle 0 Active SENSIMIST) [...] more often than directed. Talk to your assembly instructions writer regarding the use of this medicine in children. Special care may be needed. What side effects may I notice from receiving this medicine? Side effects that you should report to your doctor or health housekeeper caregiver as soon as possible: allergic reactions like skin rash, itching or hives, swelling of the face, lips, or tongue breathing problems changes in vision fluid retention nausea, vomiting pelvic pain or bloating severe abdominal pain sudden weight gain Side effects that usually do not require medical attention (report to your doctor or health housekeeper caregiver if they continue or are bothersome): breast [...] a . Visit your doctor or health housekeeper caregiver for regular checks on your progress. You [...] once and contact your doctor or health housekeeper caregiver if you think you are . This medicine is not for long-term use. Most women that benefit from this medicine do so within the first three cycles (months). Your doctor or health housekeeper caregiver will monitor your condition. This medicine is [...] more often than directed. Talk to your assembly instructions writer regarding the use of this medicine in children. Special care may be needed. What side effects may I notice from receiving this medicine? Side effects that you should report to your doctor or health housekeeper caregiver as soon as possible: allergic reactions like skin rash, itching or hives, swelling of the face, lips, or tongue breathing problems changes in vision fluid retention nausea, vomiting pelvic pain or bloating severe abdominal pain sudden weight gain Side effects that usually do not require medical attention (report to your doctor or health housekeeper caregiver if they continue or are bothersome): breast [...] a . Visit your doctor or health housekeeper caregiver for regular checks on your progress. You [...] once and contact your doctor or health housekeeper caregiver if you think you are . This medicine is not for long-term use. Most women that benefit from this medicine do so within the first three cycles (months). Your doctor or health housekeeper caregiver will monitor your condition. This medicine is [...] Description 07/26/2019 Office Visit Obstetrics & Gynecology Claritza Velez MD [address] [place] [address] [phone] 08/13/2019 Office Visit Obstetrics & Gynecology Marsha Fields PA-C [address] [place] [phone] Name Type Priority Associated Diagnoses Order [...] ID Effective Dates Phone Address Type Group [facility] xxxxxxxxx 2019-Present Medicaid COMM PLAN - PLUS MANAGED MEDICAID documented as of this encounter Advance Directives Name Relationship Healthcare Agent Communication Relationship Michelet Brower Life Partner Primary healthcare agent Miranda Morales Sibling Primary healthcare agent
--- OUTSIDE RECORDS SUMMARY | 2019-08-02 15:58 | XMS REPORT | Summary of Care ---
:1985 Author Organization [facility] - Health Address [address] [place] [address] Care Team Providers Name Role Phone Karoline Alvarez Primary Care Provider Klarissa Delgado Insurance Hmo Reason for Visit Reason Comments MED PROB Encounter Details Date Type Department Care Team Description 07/09/2019 Telephone [facility] Family Medicine Karoline Alvarez FNP MED PROB - [place] [address] [facility] [address] [place] [address] [place] [address] Allergies Active Allergy Reactions Severity Noted Date Comments Ibuprofen Rash 04/19/2017 documented as of this encounter (statuses as of 07/09/2019) Medications Medication Sig Dispensed Refills Start End Status Date Date atorvastatin calcium Take by mouth. 0 Active (ATORVASTATIN ORAL) sod Use 1 Bottle in 1 Each 0 Active gghjh-jhwfwb-awgujv each nostril 2 019 bottle (NEILMED SINUS [...] Take 1 tablet by 10 tablet 0 05/01/ Active 500 mg mouth 2 (two) 019 tabletIndications: times daily with Abdominal pain, left meals. lower quadrant fexofenadine 180 mg Take 1 tablet by 30 tablet 0 // Active tabletIndications: mouth daily. 019 Allergic rhinitis due to pollen, unspecified seasonality dicyclomine (BENTYL) Take 1 capsule by 30 capsule 0 05/21/ Active 10 mg mouth every 8 019 capsuleIndications: (eight) hours as Epigastric pain needed for Abdominal pain. famotidine 20 mg Take 20 mg by 0 Active tabletIndications: mouth 2 (two) gastroesophageal times daily. reflux disease Indications: gastroesophageal reflux disease medroxyPROGESTERone 10 Take 10 mg by 0 Active mg tablet mouth daily. fluticasone propionate Use 1 [place] in 16 g 2 06/13/2 07/13/ Active [...] Fluticasone-Salmeterol Inhale 1 Puff 60 Each 1 06/13/ Active (ADVAIR DISKUS) 100-50 every 12 (twelve) 019 mcg/dose inhalation hours. diskIndications: Mild intermittent asthma without complication fluticasone (FLONASE Use 1 [place] in 1 Bottle 0 06/17/2 07/17/ Active SENSIMIST) 27.5 each nostril 2 2018 mcg/actuation nasal (two) times daily sprayIndications: as needed for Allergic sinusitis Congestion/Allergi es for up to 30 days. dapagliflozin Take 1 tablet by 30 tablet 2 07/01/2 09/29/ Active (FARXIGA) 5 mg mouth daily for 90 2018 tabletIndications: days. Acute recurrent ethmoidal sinusitis meclizine 25 mg Take 1 tablet by 40 tablet 0 07/08/2 08/07/ Active tabletIndications: mouth 3 (three) 2018 Vertigo times daily as needed for Dizziness or Nausea for up to 30 days. lisinopril 5 mg Take 1 tablet by 30 tablet 2 10/06/ Active tabletIndications: mouth daily for 90 2018 Medication management days. glipiZIDE 5 mg tablet TK 1 T PO QD 2 Active 019 GLIPIZIDE Take 2.5 mg by 0 07/09/ Discontinued ORALIndications: mouth daily. 2018 diabetes mellitus Indications: diabetes documented as of this encounter (statuses as of 07/09/2019) Active Problems Problem Noted Date Type 2 [...] as of this encounter (statuses as of 07/09/2019) Immunizations Name Administration Dates Next Due Pneumococcal [...] 07/25/2019 Office Visit Surgery Jeanette Pedro MD [address] [facility] [address] [place] [address] [phone] 07/26/2019 Office Visit Obstetrics & Gynecology Claritza Velez MD [address] [place] [phone] 08/13/2019 Office Visit Obstetrics & Gynecology Marsha Fields PA-C [address] [place] [address] [address] [place] [address] Health Maintenance Due Date Last [...] ID Effective Phone Address Type Group Dates [facility] [id number] 2019-Prese Medicare Adv HEALTHCARE - HEALTHCARE DUAL nt HMO MANAGED COMPLETE HMO MEDICARE [facility] STAR xxxxxxxxx 2019-Prese Medicaid HEALTHCARE COMM PLUS nt PLAN - MANAGED MEDICAID documented as of this encounter Advance Directives Name Relationship Healthcare Agent Communication Relationship Michelet Brower Life Partner Primary healthcare agent Miranda Morales Sibling Primary healthcare agent
--- OUTSIDE RECORDS SUMMARY | 2019-08-02 15:58 | XMS REPORT | Summary of Care ---
:1985 Author Organization [facility] Address [address] [place] [address] Care Team Providers Name Role Phone Karoline Alvarez Primary Care Provider Klarissa Delgado Insurance Hmo Reason for Referral (Routine) Status Reason Specialty Diagnoses / Referred By Referred To Procedures Contact Contact New Request Urology Diagnoses Recurrent cystitis Karoline Alvarez, Procedures CONSULT/REFERRAL UROLOGY TRANSPORTATION SOLUTIONS MANAGER [address] [address] Reason for Visit Reason Comments Follow-up F- up from Urgent Care - She was told she had sugar in Urine Encounter Details Date Type Department Care Team Description 07/11/2019 Office Visit [facility] Family Karoline Alvarez FNP Glycosuria (Primary Dx); Medicine - [place] [address] Recurrent cystitis; [address] Type 2 diabetes mellitus without complication, without long-term current use of insulin [place] [address] [place], [place] [phone] [address] Allergies Active Allergy Reactions Severity Noted Date Comments Ibuprofen Rash 04/19/2017 documented as of this encounter (statuses as of 07/11/2019) Medications Medication Sig Dispensed Refills Start End Status Date Date atorvastatin calcium Take by mouth. 0 Active (ATORVASTATIN ORAL) sod Use 1 Bottle in 1 Each 0 Active gehfu-hdlrkz-iikyqn each nostril 2 019 bottle (NEILMED SINUS [...] tablet mouth daily. fluticasone propionate Use 1 [place] in 16 g 2 06/13/2 07/13/ Active [...] asthma without complication fluticasone (FLONASE Use 1 [place] in 1 Bottle 0 06/17/2 07/17/ Active SENSIMIST) 27.5 each nostril 2018 mcg/actuation nasal (two) times daily sprayIndications: as needed for Allergic sinusitis Congestion/Allergi es for up to 30 days. meclizine 25 mg Take 1 tablet by 40 tablet 0 07/08/2 08/07/ Active tabletIndications: mouth 3 (three) 2018 Vertigo times daily as needed for Dizziness or Nausea for up to 30 days. lisinopril 5 mg Take 1 tablet by 30 tablet 2 07/08/10/06/ Active tabletIndications: mouth daily for 2018 Medication management days. glipiZIDE 10 mg Take 1 tablet by 30 tablet 2 07/11/10/09/ Active tabletIndications: mouth daily for 2018 Glycosuria, Type 2 days. diabetes mellitus without complication, without long-term current use of insulin dapagliflozin Take 1 tablet by 30 tablet 2 07/01/07/11/ Discontinued (FARXIGA) 5 mg mouth daily for 2018 tabletIndications: days. Acute recurrent ethmoidal sinusitis glipiZIDE 5 mg tablet TK 1 T PO QD 2 06/06/07/11/ Discontinued 2018 documented as of this encounter (statuses as of 07/11/2019) Active Problems Problem Noted Date Type 2 [...] as of this encounter (statuses as of 07/11/2019) Immunizations Name Administration Dates Next Due Pneumococcal [...] Sign Reading Time Taken Comments Blood Pressure 114/79 07/11/2019 10:21 AM CDT Pulse 79 07/11/2019 10:21 AM CDT Temperature 36.7 C (98 F) 07/11/2019 10:21 AM CDT Respiratory Rate - - Oxygen Saturation - - Inhaled Oxygen Concentration - - Weight 101.6 kg (224 lb) 07/11/2019 10:21 AM CDT Height 162.6 cm (5' 4") 07/11/2019 10:21 AM CDT Body Mass Index 38.45 07/11/2019 10:21 AM CDT documented in this encounter Progress Notes Karoline Alvarez, GABI - 07/11/2019 10:20 AM CDT Cc: Chief Complaint Patient presents with Follow-up F- up from Urgent Care - She was told she had sugar in Urine Mckenna Haney is a 34 year old female. Patient is generally stable with current treatment regimen (farxiga and glipizide) with an A1C <5.7, on AYLEEN for nephroprotection with average blood sugar readings at home of 110-130. She is here dueto recurrent UTI, she has been treated for UTI and urinary symptoms multiple times in the past 1-2 months , with no relief with dysuria. She was in urgent care and was noted to have large amounts of glucose in her urine. Diabetes She presents for her follow-up diabetic visit. She has type 2 diabetes mellitus. No MedicAlert identification noted. Her disease course has been stable. Hypoglycemia symptoms include dizziness (addressed). Pertinent negatives for diabetes include no blurred vision, no chest pain, no fatigue, no foot paresthesias, no foot ulcerations, no polydipsia, no polyphagia, no polyuria, no visual change, no weakness and no weight loss. (Glucose in urine, persistent UTI) There are no hypoglycemic complications.Symptoms are stable. There are no diabetic complications. Risk factors for coronary artery disease include diabetes mellitus, sedentary lifestyle, obesity and stress. Current diabetic treatment includes oral agent (dual therapy). She is compliant with treatment all of the time. Her weight is stable. She is following a generally healthy (pending appoitment to fish culturist) diet. When asked about meal planning, she reported none. She has had a previous visit with a dietitian ( pending). She rarely participates in exercise. Her home blood glucose trend is decreasing steadily. Her breakfast blood glucose is taken between 7-8 am. Her breakfast blood glucose range is generally 90-110 mg/dl. Her lunch blood glucose is taken between 1-2 pm. Her lunch blood glucose range is generally 130- 140 mg/dl. Her dinner blood glucose is taken between 7-8 pm. Her dinner blood glucose range is generally 140-180 mg/dl.Her overall blood glucose range is 110- 130 mg/dl. An AYLEEN inhibitor/angiotensin II receptor jovana is being taken. She does not see a recreational leader (addressed referral made).Eye exam is not current ( adressed- referral made). Allergies Mckenna is allergic to ibuprofen. Medications Outpatient Medications Prior to Visit Medication Sig Dispense Refill glipiZIDE 5 mg tablet TK 1 T PO QD 2 lisinopril 5 mg tablet Take 1 tablet by mouth daily for 90 days. 30 tablet 2 meclizine 25 mg tablet Take 1 tablet by mouth 3 (three) times daily as needed for Dizziness or Nausea for up to 30 days. 40 tablet 0 dapagliflozin (FARXIGA) 5 mg tablet Take 1 tablet by mouth daily for 90 days. 30 tablet 2 fluticasone (FLONASE SENSIMIST) 27.5 mcg/actuation nasal spray Use 1 Price in each nostril 2 (two) times daily as needed for Congestion/Allergies for up to 30 days. 1 Bottle 0 famotidine 20 mg tablet Take 20 mg by mouth 2 (two) times daily. Indications : gastroesophageal reflux disease fluticasone propionate (FLONASE ALLERGY RELIEF) 50 mcg/actuation nasal spray Use 1 Price in eachnostril daily for 30 days. 16 [...] by mouth daily. 30 tablet 0 sod kyrfr-refbsz-iltgsr bottle (NEILMED SINUS RINSE COMPLETE) pkdv Use 1 Bottle in each nostril 2 (two) times daily. Use in hot shower 1 hour before bedtime 1 Each 0 atorvastatin calcium (ATORVASTATIN ORAL) Take by mouth. No facility-administered medications prior to visit. Histories [...] file Gets together: Not on file Attends episcopal service: Not on file Active member of [...] cholesterol Paternal Grandfather Review of Systems Constitutional: Negative for fatigue and weight loss. Eyes: Negative for blurred vision. Cardiovascular: Negative for chest pain. Genitourinary: Negative for polyuria. Neurological: Positive for dizziness (addressed). Negative for weakness. Endocrine: Negative for polydipsia, polyphagia, polyuria and weight loss. Vital Signs BP 114/79 | Pulse 79 | Temp 36.7 C (98 F) (Oral) | Ht 5' 4" (1.626 m) | Wt 224 lb (101.6 kg) | BMI 38.45 kg/m Physical Exam Constitutional: She is oriented to person, place, and time. She appears well- developed and well-nourished. No distress. Cardiovascular: Normal rate, regular rhythm, normal heart sounds and intact distal pulses. Pulmonary/Chest: Effort normal and breath sounds normal. No respiratory distress. Abdominal: Soft. Bowel sounds are normal. She exhibits no distension. There is no tenderness. There is no CVA tenderness. Neurological: She is alert and oriented to person, place, and time. Skin: Skin is warm and dry. Capillary refill takes less than 2 seconds. Psychiatric: Her behavior is normal. Nursing note and vitals reviewed. Assessment/Plan 1. Glucosuria: Most likely medication side effects: test done at the urgent care was normal as preganancy tend to cause glycosuria. She's also currently on farxiga and doing well, however, her symptoms maybe related to side effects of the medication as it's mechanism of action is excretion of glucose through urine, coupled with her recurrent vaginal oscar. Obesity makes her even more suscitible to skin oscar. 2. Medication management: Glipizide increased to 10mg from 5mg, patient to follow up in 1-2 months for some lab work to eval prognosis on the new regimen. Continue to monitor and record blood sugars athome. 3. Recurrent cystitis: if no improvement from the medication change, referral has been put in to seea urologist. Plan of care, desired health behaviors, goals, and medication discussed with patient. Education resources provided and reviewed with AVS. Patient/guardian/family verbalized understanding & agrees to plan of care. This visit did not involve counseling and coordination that comprised more than 50% of the visit time. If applicable, the [facility] database was accessed to review any controlled substance prescription claims data. The [employer] prescription claims data in [employer] was reviewed to assess patient compliance with the medication treatment plan. documented in this encounter Plan of Treatment Date Type Specialty Care Team Description 07/18/2019 Office Visit Otolaryngology Nicolette Sagastume PA [address] [place] [phone] 07/25/2019 Office Visit Surgery Jeanette Pedro MD [address] [facility] [address] [place], [place] [id number] 07/26/2019 Office Visit Obstetrics & Gynecology Claritza Velez MD [address] [place] [address] [phone] 08/13/2019 Office Visit Obstetrics & Gynecology Marsha Fields PA-C [address] [place] [address] [address] [place] [address] [phone] 12/19/2019 Vice President Of Operations Visit Endocrinology Diabetes & [address] Metabolism [address] [place], [place] [phone] Health Maintenance Due Date Last Done Comments EYE EXAM 1997 VARICELLA VACCINES (1 of 2 - 13+ 2000 2-dose series) FOOT EXAM 2005 DTaP,Tdap,and Td Vaccines (1 - 2006 Tdap) INFLUENZA VACCINE (#1) 2019 HgA1C 12/14/2019 06/13/2019 CREATININE (SERUM) 06/13/2020 06/13/2019, 06/13/2019, 04/29/2019, Additional history exists LDL-C 06/13/2020 06/13/2019 URINE MICROALBUMIN 06/13/2020 06/13/2019 PAP SMEAR 05/01/2022 05/01/2019 PNEUMOCOCCAL 0-64 YEARS COMBINED Completed 06/13/2019 SERIES documented as of this encounter Results Not on filedocumented in this encounter Visit Diagnoses Diagnosis Glycosuria - Primary Recurrent cystitis Cystitis, unspecified Type 2 diabetes mellitus without complication, without long-term current use of insulin documented in this encounter Insurance Payer Benefit Plan / Subscriber ID Effective Phone Address Type Group [facility] [id number] 2019-Prese Medicare Adv HEALTHCARE - HEALTHCARE DUAL nt HMO MANAGED COMPLETE HMO MEDICARE [facility] STAR xxxxxxxxx 2019-Prese Medicaid HEALTHCARE COMM PLUS nt PLAN - MANAGED MEDICAID documented as of this encounter Advance Directives Name Relationship Healthcare Agent Communication Relationship Michelet Brower Life Partner Primary healthcare agent Miranda Morales Sibling Primary healthcare agent
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
--- OUTSIDE RECORDS SUMMARY | 2019-08-02 15:58 | XMS REPORT ---
:1985 Author Organization [employer] Care Team Providers Name Role Phone Klarissa Delgado Provider Role Unavailable Allergies No Known Allergies Problems Problem Type Condition Code Onset Dates Condition Status Problem Migraine G43.909 Active Problem Diabetes E11.9 [...] R51 Active Problem Epigastric pain R10.13 Active Problem Right upper quadrant pain R10.11 Active Problem Anxiety F41.9 Active Problem High blood pressure I10 Active Problem Difficulty sleeping G47.9 Active Problem Dietary surveillance and counseling Z71.3 Active Problem Left ovarian cyst N83.202 Active Problem Morbid obesity E66.01 Active Problem Uterine bleeding N93.9 Active Medications No Known Medications Results No Known Results Summary Purpose eClinicalWorks Submission
--- OUTSIDE RECORDS SUMMARY | 2019-08-02 15:58 | XMS REPORT | Summary of Care ---
:1985 Author Organization [facility] [[email or web address] - [facility] Address [address] [place] [id number] Care Team Providers Name Role Phone Karoline Alvarez Primary Care Provider Klarissa Delgado Insurance Hmo Reason for Referral (Routine) Status Reason Specialty Diagnoses / Referred By Referred To Procedures Contact Contact New Request Urology Diagnoses Recurrent cystitis Karoline Alvarez, Procedures CONSULT/REFERRAL UROLOGY CERTIFIED DRIVER EXAMINER [address] [address] Reason for Visit Reason Comments Follow-up F- up from Urgent Care - She was told she had sugar in Urine Encounter Details Date Type Department Care Team Description 07/11/2019 Office Visit [facility] Family Karoline Alvarez FNP Glycosuria (Primary Dx); Medicine - [place] [address] Recurrent cystitis; [address] Type 2 diabetes mellitus without complication, without long-term current use of insulin [place] [address] [place] [phone] [address] Allergies Active Allergy Reactions Severity Noted Date Comments Ibuprofen Rash 04/19/2017 documented as of this encounter (statuses as of 07/11/2019) Medications Medication Sig Dispensed Refills Start End Status Date Date atorvastatin calcium Take by mouth. 0 Active (ATORVASTATIN ORAL) sod Use 1 Bottle in 1 Each 0 Active oarap-ujfkbu-lmzpvt each nostril 2 019 bottle (NEILMED SINUS [...] tablet mouth daily. fluticasone propionate Use 1 [place] in 16 g 2 06/13/2 07/13/ Active [...] asthma without complication fluticasone (FLONASE Use 1 [place] in 1 Bottle 0 06/17/2 07/17/ Active [...] following a generally healthy (pending appoitment to real estate salesperson) diet. When asked about meal planning, she [...] being taken. She does not see a storage administrator (addressed referral made).Eye exam is not current [...] SENSIMIST) 27.5 mcg/actuation nasal spray Use 1 [place] in each nostril 2 (two) times daily as needed for Congestion/Allergies for up to 30 days. 1 Bottle 0 famotidine 20 mg tablet Take 20 mg by mouth 2 (two) times daily. Indications : gastroesophageal reflux disease fluticasone propionate (FLONASE ALLERGY RELIEF) 50 mcg/actuation nasal spray Use 1 [place] in eachnostril daily for 30 days. 16 [...] by mouth daily. 30 tablet 0 sod jthoo-hbistb-wfvitm bottle (NEILMED SINUS RINSE COMPLETE) pkdv Use [...] file Gets together: Not on file Attends alevism service: Not on file Active member of [...] of the visit time. If applicable, the [facility] database was accessed to review any controlled substance prescription claims data. The [employer] prescription claims data in [employer] was reviewed to assess patient compliance with the medication treatment plan. documented in this encounter Plan of Treatment Date Type Specialty Care Team Description 07/18/2019 Office Visit Otolaryngology Nicolette Sagastume PA [address] [place] [phone] 07/25/2019 Office Visit Surgery Jeanette Pedro MD [address] [facility] [address] [place], [place] [address] 07/26/2019 Office Visit Obstetrics & Gynecology Claritza Velez MD [address] [place] [phone] 08/13/2019 Office Visit Obstetrics & Gynecology Marsha Fields PA-C [address] [place] [address] [address] [place] [address] [phone] 12/19/2019 Legal Assistant Visit Endocrinology Diabetes & LamonteRegla alvarez RD Metabolism [address] [place], [place] [phone] Health Maintenance Due Date Last Done Comments [...] Subscriber ID Effective Phone Address Type Group [facility] [id number] 2019-Prese Medicare Adv HEALTHCARE - HEALTHCARE DUAL nt HMO MANAGED COMPLETE HMO MEDICARE [facility] STAR xxxxxxxxx 2019-Prese Medicaid HEALTHCARE COMM PLUS nt PLAN - MANAGED MEDICAID documented as of this encounter Advance Directives Name Relationship Healthcare Agent Communication Relationship Michelet Brower Life Partner Primary healthcare agent Miranda Morales Sibling Primary healthcare agent
--- OUTSIDE RECORDS SUMMARY | 2019-08-02 15:59 | XMS REPORT | Summary of Care ---
:1985 Author Organization [facility] Address [address] [place] [address] Care Team Providers Name Role Phone Karoline Alvarez Primary Care Provider Klarissa Delgado Insurance Hmo Reason for Visit Reason Comments YEAST INFECTION Encounter Details Date Type Department Care Team Description 07/11/2019 Telephone [facility] Jihan Payan FNP YEAST INFECTION Medicine - [place] [address] [facility] [address] [place] [address] [place], [place] [address] Allergies Active Allergy Reactions Severity Noted Date Comments Ibuprofen Rash 04/19/2017 documented as of this encounter (statuses as of 07/11/2019) Medications Medication Sig Dispensed Refills Start End Status Date Date atorvastatin calcium Take by mouth. 0 Active (ATORVASTATIN ORAL) sod eyszs-woidln-xuxtxe Use 1 Bottle in each 1 Each [...] mg tablet daily. fluticasone propionate Use 1 [place] in each 16 g 2 Active (FLONASE [...] asthma without complication fluticasone (FLONASE Use 1 [place] in each 1 Bottle 0 Active SENSIMIST) 27.5 nostril 2 (two) 9 019 mcg/actuation nasal times daily as sprayIndications: needed for Allergic sinusitis Congestion/Allergies for up to 30 days. meclizine 25 mg Take 1 tablet by 40 tablet 0 Active tabletIndications: mouth 3 (three) 9 019 Vertigo times daily as needed for Dizziness or Nausea for up to 30 days. lisinopril 5 mg Take 1 tablet by 30 tablet 2 Active tabletIndications: mouth daily for 90 9 019 Medication management days. glipiZIDE 10 mg Take 1 tablet by 30 tablet 2 Active tabletIndications: mouth daily for 90 9 019 Glycosuria, Type 2 days. diabetes mellitus without complication, without long-term current use of insulin fluconazole 150 mg Take 1 tablet by 1 tablet 0 Active tabletIndications: mouth once now for 1 019 Vaginal yeast infection dose. documented as of this encounter (statuses as [...] Office Visit Otolaryngology Nicolette Sagastume PA [address] [place] [phone] 07/25/2019 Office Visit Surgery Jeanette Pedro MD [address] [facility] [address] [place] [address] [phone] 07/26/2019 Office Visit Obstetrics & Gynecology Claritza Velez MD [address] [place] [phone] 08/13/2019 Office Visit Obstetrics & Gynecology Marsha Fields PA-C [address] [place] [address] [address] [place] [phone] 12/19/2019 Asparagus Buncher Visit Endocrinology Diabetes & LamonteRegla alvarez RD Metabolism 26[address] [place] [address] [phone] Health Maintenance Due Date Last Done Comments [...] filedocumented in this encounter Visit Diagnoses Diagnosis Vaginal yeast infection - Primary Candidiasis of vulva and vagina documented in this encounter Insurance Payer Benefit Plan / Subscriber ID Effective Phone Address Type Group Dates [facility] [id number] 2019-Prese Medicare Adv HEALTHCARE - HEALTHCARE DUAL nt HMO MANAGED COMPLETE HMO MEDICARE [facility] STAR xxxxxxxxx 2019-Prese Medicaid HEALTHCARE COMM PLUS nt PLAN - MANAGED MEDICAID documented as of this encounter Advance Directives Name Relationship Healthcare Agent Communication Relationship Michelet Brower Life Partner Primary healthcare agent Miranda Moralessindy Adkins Primary healthcare agent [phone] ([place])
--- OUTSIDE RECORDS SUMMARY | 2019-08-02 15:59 | XMS REPORT | Summary of Care ---
:1985 Author Organization [facility] Address [address] [place] [address] Care Team Providers Name Role Phone Klarissa Delgado Insurance Hmo Klarissa Delgado Primary Care Provider Reason for Visit Reason Comments Chills Fatigue Headache Auth/Cert Status Reason Specialty Diagnoses / Referred By Referred To Procedures Contact Contact [facility] [address] [place] [address] [place] [address] Encounter Details Date Type Department Care Team Description 07/15/2019 Emergency [facility] Jennifer Simon, Vertigo (Primary Dx); [address] [place] [address] Dr BACH Nausea; [place] [address] [address] Dizziness [phone] [address] [place] [address] Allergies Active Allergy Reactions Severity Noted Date Comments Ibuprofen Rash 04/19/2017 documented as of this encounter (statuses as of 07/15/2019) Medications Medication Sig Dispensed Refills Start End Status Date Date atorvastatin calcium Take by mouth. 0 Active (ATORVASTATIN ORAL) sod Use 1 Bottle in 1 Each 0 Active gogtb-oczoeu-iokael each nostril 2 019 bottle (NEILMED SINUS [...] by 0 Active mg tablet mouth daily. Fluticasone-Salmeterol Inhale 1 Puff 60 Each 1 Active (ADVAIR DISKUS) 100-50 every 12 (twelve) 019 mcg/dose inhalation hours. diskIndications: Mild intermittent asthma without complication fluticasone (FLONASE Use 1 [place] in 1 Bottle 0 06/17/2 07/17/ Active SENSIMIST) 27.5 each nostril 2 2019 mcg/actuation nasal (two) times daily sprayIndications: as needed for Allergic sinusitis Congestion/Allergi es for up to 30 days. lisinopril 5 mg Take 1 tablet by 30 tablet 2 07/08/2 10/06/ Active tabletIndications: mouth daily for 2018 Medication management days. glipiZIDE 10 mg Take 1 tablet by 30 tablet 2 07/11/2 10/09/ Active tabletIndications: mouth daily for 2018 Glycosuria, Type 2 days. diabetes mellitus without complication, without long-term current use of insulin meclizine 25 mg Take 1 tablet by 20 tablet 0 Active tabletIndications: mouth every 6 019 Vertigo (six) hours as needed for Dizziness. meclizine 25 mg Take 1 tablet by 40 tablet 0 tabletIndications: mouth 3 (three) 019 2018 Vertigo times daily as needed for Dizziness or Nausea for up to 30 days. documented as of this encounter (statuses as of 07/15/2019) Active Problems Problem Noted Date Type 2 [...] as of this encounter (statuses as of 07/15/2019) Immunizations Name Administration Dates Next Due Pneumococcal [...] Sign Reading Time Taken Comments Blood Pressure 134/114 07/15/2019 6:03 PM CDT Pulse 64 07/15/2019 6:03 PM CDT Temperature 36.9 C (98.4 F) 07/15/2019 2:44 PM CDT Respiratory Rate 13 07/15/2019 6:03 PM CDT Oxygen Saturation 99% 07/15/2019 6:03 PM CDT Inhaled Oxygen Concentration - - Weight 103 kg (227 lb) 07/15/2019 2:44 PM CDT Height 162.6 cm (5' 4") 07/15/2019 2:44 PM CDT Body Mass Index 38.96 07/15/2019 2:44 PM CDT documented in this encounter Discharge Instructions AttachmentsThe following attachments cannot be sent through Care Everywhere.Vertigo, Benign Paroxysmal Positional (Khmer)documented in this encounter Plan of Treatment Date Type Specialty Care Team Description 07/18/2019 Office Visit Otolaryngology Nicolette Sagastume PA [address] [place] [phone] 07/25/2019 Office Visit Surgery Jeanette Pedro MD [address] [facility] [address] [place], [place] [address] 07/26/2019 Office Visit Obstetrics & Gynecology Claritza Velez MD [address] [place] [phone] 08/13/2019 Office Visit Obstetrics & Gynecology Marsha Fields PA-C [address] [facility] [address] [place] [address] 12/19/2019 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 CBC WITH DIFF Routine 07/15/2019 4:37 Nausea Results for this PM CDT Dizziness procedure are in the results section. COMP. METABOLIC PANEL STAT 07/15/2019 4:37 Nausea Results for this (24030) PM CDT Dizziness procedure are in the results section. MAGNESIUM STAT 07/15/2019 4:37 Nausea Results for this PM CDT Dizziness procedure are in the results section. CONSENT/REFUSAL FOR Routine 07/15/2019 2:36 DIAGNOSIS AND PM CDT TREATMENT documented in this encounter Results CBC WITH DIFFERENTIAL (07/15/2019 4:37 PM CDT) WBC 10.56 4.30 - 11.10 [facility] 10*3/L [facility] RBC 3.92 (L) 3.93 - 5.25 [facility] 10*6/L [facility] HGB 13.1 11.6 - 15.0 [facility] g/dL [facility] HCT 38.8 35.7 - 45.2 % [facility] MCV 99.0 (H) 80.6 - 95.5 fL [facility] MCH 33.4 (H) 25.9 - 32.8 pg [facility] MCHC 33.8 31.6 - 35.1 [facility] g/dL [facility] RDW-SD 45.5 39.0 - 49.9 fL [facility] RDW-CV 12.6 12.0 - 15.5 % [facility] PLT 347 166 - 358 [facility] 10*3/L [facility] MPV 10.2 9.5 - 12.9 fL [facility] NRBC/100 WBC 0.0 0.0 - 10.0 /100 [facility] WBCs [facility] NRBC x10^3 <0.01 10*3/L [facility] GRAN MAT (NEUT) % 69.1 % [facility] IMM GRAN % 0.20 % [facility] LYMPH % 24.1 % [facility] MONO % 5.4 % [facility] EOS % 0.9 % [facility] BASO % 0.3 % [facility] GRAN MAT x10^3(ANC) 7.29 (H) 1.88 - 7.09 [facility] 10*3/uL HOSPITAL [facility]ORY IMM GRAN x10^3 <0.03 0.00 - 0.06 [facility] 10*3/uL [facility]ITAL [facility] LYMPH x10^3 2.55 1.32 - 3.29 [facility] 10*3/uL HOSPITAL [facility]ORY MONO x10^3 0.57 0.33 - 0.92 [facility] 10*3/uL HOSPITAL [facility] EOS x10^3 0.10 0.03 - 0.39 [facility] 10*3/uL HOSPITAL [facility] BASO x10^3 0.03 0.01 - 0.07 [facility] 10*3/uL [facility] Specimen Blood - ARM, RIGHT Performing Organization Address [facility] Cent[facility]ode Phone Number [facility] CLIA: [id number], [address] [place] [address] MAGNESIUM (07/15/2019 4:37 PM CDT) MAGNESIUM 1.9 1.7 - 2.4 mg/dL [facility] Specimen Blood - ARM, RIGHT Performing Organization Address City/[facility] Centercoor Phone Number [facility] CLIA: [id number], [address] [place] [address] COMP. METABOLIC PANEL (67584) (07/15/2019 4:37 PM CDT) NA 143 135 - 145 [facility] mmol/L [facility] K 3.9 3.5 - 5.0 [facility] mmol/L [facility] CL 107 98 - 108 mmol/L [facility] CO2 TOTAL 27 23 - 31 mmol/L [facility] AGAP 9 2 - 16 [facility] BUN 10 7 - 23 mg/dL [facility] GLUCOSE 98 70 - 110 mg/dL [facility] CREATININE 0.48 (L) 0.50 - 1.04 [facility] mg/dL [facility] TOTAL BILI 0.4 0.1 - 1.1 mg/dL [facility] CALCIUM 9.2 8.6 - 10.6 [facility] mg/dL [facility] T PROTEIN 8.1 6.3 - 8.2 g/dL [facility] ALBUMIN 4.6 3.5 - 5.0 g/dL [facility] ALK PHOS 79 34 - 122 U/L [facility] ALT(SGPT) 27 9 - 51 U/L [facility] AST(SGOT) 24 13 - 40 U/L [facility] eGFR Calculation 149.9 mL/min/1.73m2 [facility] ([facility] [place]onegasque) eGFR Calculation 181.7 mL/min/1.73m2 [facility] () [facility] Specimen Blood - ARM, RIGHT Narrative Performed At Association of Glomerular Filtration Rate (GFR) [facility] and Staging of Kidney Disease* + + +- + | GFR (mL/min/1.73 m2)| With Kidney Damage|Without Kidney Damage + + +- + |>90| Stage one| Normal + + +- + |60-89|S tage two| Decreased GFR + + +- + |30-59|S tage three| Stage three + + +- + |15-29|S tage four | Stage four + + +- + |<15 (or dialysis)|Stage five | Stage five + + +- + *Each stage assumes the associated GFR level has been in effect for at least three months.Stages 1 to 5, with or without kidney disease, indicate chronic kidney disease. Notes: Determination of stages one and two (with eGFR >59mL/min/1.73 m2) requires estimation of kidney damage for at least three months as defined by structural or functional abnormalities of the kidney, manifested by either: Pathological abnormalities or Markers of kidney damage (including abnormalities in the composition of the blood or urine or abnormalities in imaging tests). Performing Organization Address City/State/Zipcode Phone Number [facility] CLIA: [id number], [address] [place] [address] documented in this encounter Visit Diagnoses Diagnosis Vertigo - Primary Dizziness and giddiness Nausea Nausea alone Dizziness Dizziness and giddiness documented in this encounter Administered Medications Medication Order MAR Action Action Date Dose Rate Site meclizine (TRAVEL-EASE Given 07/15/2019 4:39 PM CDT 25 mg (MECLIZINE)) tablet 25 mg 25 mg, Oral, ONCE, 1 dose, 07/15/19 at 1700, BHARATHI NaCl 0.9% (NS) bolus infusion New Bag 07/15/2019 4:39 PM CDT 1,000 mL 999 mL/hr 1,000 mL at 999 mL/hr, 1,000 mL, IV Infusion, ONCE, 1 dose, Mon07/15/19 at 1700, STAT ondansetron (ZOFRAN (PF)) injection 4 mg Given 07/15/2019 4:39 PM CDT 4 mg 4 mg, Slow IV Push, ONCE, 1 dose, Mon07/15/19 at 1700, BHARATHI documented in this encounter Insurance Payer Benefit Plan / Subscriber ID Effective Phone Address Type Group [facility] [id number] 2019-Prese Medicare Adv HEALTHCARE - HEALTHCARE DUAL nt HMO MANAGED COMPLETE HMO MEDICARE [facility] STAR xxxxxxxxx 2019-Prese Medicaid HEALTHCARE COMM PLUS nt PLAN - MANAGED MEDICAID documented as of this encounter Advance Directives Name Relationship Healthcare Agent Communication Relationship Michelet Brower Life Partner Primary healthcare agent Miranda Morales Sibling Primary healthcare agent
--- OUTSIDE RECORDS SUMMARY | 2019-08-02 15:59 | XMS REPORT | Summary of Care ---
:1985 Author Organization [facility] Address [address] [place] [address] Care Team Providers Name Role Phone Karoline Alvarez Primary Care Provider Klarissa Delgado Insurance Hmo Reason for Visit Reason Comments YEAST INFECTION Encounter Details Date Type Department Care Team Description 07/11/2019 Telephone [facility] Jihan Payan FNP YEAST INFECTION Medicine - [place] [address] [facility] [address] [place] [address] [place], [place] [address] Allergies Active Allergy Reactions Severity Noted Date Comments Ibuprofen Rash 04/19/2017 documented as of this encounter (statuses as of 07/11/2019) Medications Medication Sig Dispensed Refills Start End Status Date Date atorvastatin calcium Take by mouth. 0 Active (ATORVASTATIN ORAL) sod rnaug-reyeuc-lsrbcb Use 1 Bottle in each 1 Each [...] mg tablet daily. fluticasone propionate Use 1 [place] in each 16 g 2 Active (FLONASE [...] asthma without complication fluticasone (FLONASE Use 1 [place] in each 1 Bottle 0 Active SENSIMIST) [...] Visit Otolaryngology Nicolette Sagastume PA [address] [place] [phone] 07/25/2019 Office Visit Surgery Jeanette Pedro MD [address] [facility] [address] [place] [address] [phone] 07/26/2019 Office Visit Obstetrics & Gynecology Claritza Velez MD [address] [place] [phone] 08/13/2019 Office Visit Obstetrics & Gynecology Marsha Fields PA-C [address] [place] [address] 208 [place] [phone] 12/19/2019 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 [id number] 2019-Prese Medicare Adv HEALTHCARE - HEALTHCARE DUAL nt HMO MANAGED COMPLETE HMO MEDICARE [facility] STAR xxxxxxxxx 2019-Prese Medicaid HEALTHCARE COMM PLUS nt PLAN - MANAGED MEDICAID documented as of this encounter Advance Directives Name Relationship Healthcare Agent Communication Relationship Michelet Brower Life Partner Primary healthcare agent Miranda Moralessindy Adkins Primary healthcare agent [phone] ([place])
--- OUTSIDE RECORDS SUMMARY | 2019-08-02 15:59 | XMS REPORT | Summary of Care ---
:1985 Author Organization [facility] Address [address] [place] [address] Care Team Providers Name Role Phone Karoline Alvarez Primary Care Provider Klarissa Delgado Insurance Hmo Reason for Visit Reason Comments Results Encounter Details Date Type Department Care Team Description 07/11/2019 Telephone [facility] Family Medicine Karoline Alvarez FNP Results - [place] [address] [place] [address] [place] [address] Allergies Active Allergy Reactions Severity Noted Date Comments Ibuprofen Rash 04/19/2017 documented as of this encounter (statuses as of 07/12/2019) Medications Medication Sig Dispensed Refills Start End Status Date Date atorvastatin calcium Take by mouth. 0 Active (ATORVASTATIN ORAL) sod eeyej-swfrok-vyykcx Use 1 Bottle in each 1 Each [...] mg tablet daily. fluticasone propionate Use 1 [place] in each 16 g 2 Active (FLONASE [...] asthma without complication fluticasone (FLONASE Use 1 [place] in each 1 Bottle 0 Active SENSIMIST) [...] without long-term current use of insulin documented as of this encounter (statuses as of 07/12/2019) Active Problems Problem Noted Date Type 2 [...] as of this encounter (statuses as of 07/12/2019) Immunizations Name Administration Dates Next Due Pneumococcal [...] Visit Otolaryngology Nicolette Sagastume PA [address] [place] [address] 07/25/2019 Office Visit Surgery Jeanette Pedro MD [address] [facility] [address] [place] [address] [phone] 07/26/2019 Office Visit Obstetrics & Gynecology Claritza Velez MD [address] [place] [phone] 08/13/2019 Office Visit Obstetrics & Gynecology Marsha Fields PA-C 146 [facility] [address] [place] [phone] 12/19/2019 Motor Block 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 Visit Endocrinology Diabetes & LamonteRegla, RD Metabolism 26[address] [place] [address] [phone] Health Maintenance Due Date Last Done Comments [...] ID Effective Phone Address Type Group Dates [facility] [id number] 2019-Prese Medicare Adv HEALTHCARE - HEALTHCARE DUAL nt HMO MANAGED COMPLETE HMO MEDICARE [facility] STAR xxxxxxxxx 2019-Prese Medicaid HEALTHCARE COMM PLUS nt PLAN - MANAGED MEDICAID documented as of this encounter Advance Directives Name Relationship Healthcare Agent Communication Relationship Michelet Brower Life Partner Primary healthcare agent Miranda Morales Sibling Primary healthcare agent
--- OUTSIDE RECORDS SUMMARY | 2019-08-02 16:00 | XMS REPORT | Summary of Care ---
:1985 Author Organization [facility] Address [address] [place] [id number] Care Team Providers Name Role Phone Klarissa Delgado Insurance Hmo Klarissa Delgado Primary Care Provider Reason for Visit Reason Comments New Evaluation Allergies MIGRAINE Dizziness (Routine) Status Reason Specialty Diagnoses / Referred By Referred To Procedures Contact Contact Closed Otolaryngology Diagnoses Allergic sinusitis Karoline Alvarez, Procedures CONSULT/REFERRAL ENT [facility] [address] [address] Encounter Details Date Type Department Care Team Description 07/18/2019 Office Visit [facility] Ear, Nose Nicolette Sagastume Benign paroxysmal positional vertigo, unspecified laterality (Primary Dx); and Throat-LILIANA Holbrook Seasonal allergic rhinitis, unspecified trigger; [address] Nasal septal spur; [address], [place] Hypertrophy of inferior nasal turbinate; [place] [address] Facial pressure; [place], [place] [phone] Rhinorrhea [address] [phone] Allergies Active Allergy Reactions Severity Noted Date Comments Ibuprofen Rash 04/19/2017 documented as of this encounter (statuses as of 07/18/2019) Medications Medication Sig Dispensed Refills Start End Status Date Date atorvastatin calcium Take by mouth. 0 Active (ATORVASTATIN ORAL) sod Use 1 Bottle in 1 Each 0 04/13/ Active dahin-aqiask-cltvbk each nostril 2 019 bottle (NEILMED SINUS (two) times daily. RINSE COMPLETE) Use in hot shower pkdvIndications: 1 hour before Sinusitis, unspecified bedtime chronicity, unspecified location busPIRone 7.5 mg TAKE 1 TABLET BY 0 Active tablet MOUTH TWICE DAILY 019 NEEDED FOR ANXIETY naproxen (NAPROSYN) Take 1 tablet by 10 tablet 0 05/01/ Active 500 mg mouth 2 (two) 019 tabletIndications: times daily with Abdominal pain, left meals. lower quadrant dicyclomine (BENTYL) Take 1 capsule by 30 [...] hours. diskIndications: Mild intermittent asthma without complication lisinopril 5 mg Take 1 tablet by [...] Vertigo (six) hours as needed for Dizziness. azelastine 137 mcg Use 1 [place] in 30 mL 4 Active (0.1 %) nasal each nostril 2 019 sprayIndications: (two) times daily. Seasonal allergic Use in each rhinitis, unspecified nostril as trigger directed levocetirizine 5 mg Take 1 tablet by 30 tablet 4 Active tabletIndications: mouth every 019 Seasonal allergic evening. rhinitis, unspecified trigger fluticasone propionate Use 2 Sprays in 16 g 4 Active 50 mcg/actuation nasal each nostril 2 sprayIndications: (two) times daily. Seasonal allergic rhinitis, unspecified trigger loratadine 10 mg Take 1 tablet by 30 tablet 0 Discontinued tabletIndications: mouth daily. 2018 Sinusitis, unspecified chronicity, unspecified location fexofenadine 180 mg Take 1 tablet by 30 tablet 0 07/18/ Discontinued tabletIndications: mouth daily. 2018 Allergic rhinitis due to pollen, unspecified seasonality documented as of this encounter (statuses as of 07/18/2019) Active Problems Problem Noted Date Type 2 [...] as of this encounter (statuses as of 07/18/2019) Immunizations Name Administration Dates Next Due Pneumococcal [...] Sign Reading Time Taken Comments Blood Pressure 115/77 07/18/2019 9:22 AM CDT Pulse 98 07/18/2019 9:22 AM CDT Temperature - - Respiratory Rate - - Oxygen Saturation - - Inhaled Oxygen Concentration - - Weight 104.1 kg (229 lb 8 oz) 07/18/2019 9:15 AM CDT Height - - Body Mass Index 39.39 07/15/2019 2:44 PM CDT documented in this encounter Patient Instructions Patient InstructionsJo Ann Gonzalez PA-C - 07/18/2019 9:30 AM CDTLa maniobra de Tobin y la maniobra de Semont son ejercicios que se usan para tratar el v rtigo posicional paroxstico ginger (BPPV, por artie siglas en ingls) . Se hacen con la ayuda de un mdico oun fisioterapeuta. Patricia dano sesin de 10 a 15 minutos suele ser todo lo que se necesita. Cuando se le mueve la olive firmemente en diferentes posiciones, los residuos ( canalticos) de azul de calcio que causan el vrtigo se salen del conducto semicircular y pasan a patricia kenneth del odo interno donde ya no producen sntomas. Se edward usado con xito dos maniobras: la maniobra de Epleyy la maniobra de Semont. La maniobra de Tobin se realiza de la siguiente manera: Usted est sentado, y el mdico le gira la olive en forma horizontal 45 grados hacia el odo afectado. Usted debe tomarse de los brazos del mdico para sostenerse. El mdico lo inclina a usted hacia atrs a patricia posicin horizontal con la olive colgando y mantenida en vargas lugar a un giro de 45 grados. Un ataque de v rtigo es probable que ocurra mientras losresiduos se desplazan hacia el v rtice del conducto. Usted se mantiene en esta posicin hasta que se detiene el vrtigo, generalmente dentro de un minuto. El mdico le gira la olive 90 grados hacia el odo que no est afectado. Entonces, el mdicolo hace girar hacia el lado del odo que no est afectado , de modo que ahora est mirando al piso. Los residuos deberan volver al conducto, posiblemente causando otro ataque de vrtigo. Usted debera permanecer en esta posicin hasta que se detenga el vrtigo, generalmente dentro de un minuto. El mdico le ayuda a regresar a la posicin de sentado. La maniobra de Semont se realiza del siguiente modo: Usted est sentado, y el mdico le gira la olive de modo que est a mitad de kellie entre mirar directamente al frente y mirar hacia otra direcci n desde el lado que causa el peor vrtigo. El mdico luego lo baja a usted rpidamente hacia el lado que causa el peor vrtigo. Cuando tiene la olive apoyada sobre la louis de examen, usted est mirando al techo. El mdico lo mantiene en esta posicin por 30 segundos. Luego, el mdico lo mueve rpidamente al otro lado de la louis sin detenerse en la posicin erguida. Cuando tiene la olive sobre la louis, ahora estar mirando la louis. El mdico lo mantiene en esta posicin por 30 segundos. El mdico finalmente le ayuda a volver a sentarse en forma erguida. En algunos casos, vargas mdico o fisioterapeuta puede indicarle que genoveva patricia versin modificada del procedimiento de Tobin en el hogar. Si vargas mdico le sotomayor mostrado materials assistant se hace y usted se siente seguro de poder hacerlo, puede probarlo en el hogar para deshacerse de vargas vrtigo. documented in this encounter Progress Notes Nicolette Sagastume PA - 07/18/2019 9:30 AM CDT Otolaryngology New Patient Clinic Visit Name: Mckenna Haney Date: 07/18/2019 11:02 Chief Complaint: Nasal congestion and vertigo History of Present Illness: Mckenna Haney is a 34 year old female with hx of well controlled T2DM, asthma, and HTN presenting atthe request of GABI Alves for initial evaluation of nasal congestion and vertigo. Today, shereports persistent frontal and maxillary sinus pressure. Associated with clear rhinorrhea, PND, and intermittent nasal obstructions. Denies changes in smell, purulent drainage, fever, chills. She currently takes Zyrtec intermittently for symptoms and uses Flonase daily for the past year. Symptoms worsen acutely in the fall. She gets 1 -2 sinus infections per year. Last infection was 3 months ago and resolved with treatment with Zpack. No hx of allergy testing or sinus surgery. She has a hx of asthma but is well controlled and infrequently uses her rescue inhaler. Additionally, the patient reports feeling dizzy the past 3 weeks, now slowly improving. She describes it as a room spinning sensation lasting a few seconds, associated with quick head movements or rolling over in bed in either direction and when quickly moving from lying to sitting. Denies nausea, presyncope, sensitivity to light or sound. She was evaluated in the ED on 07/15/19 for this issue and given meclizine. She takes this intermittently when the dizziness becomes severe. She notes that it is improving and only occurs 1-2 times per week. No hx of tobacco use, H&N cancer, seizures, CVA, recent head trauma. Denies cough, throat clearing, SOTOMAYOR, changes in vision, hearing loss, tinnitus, ear fullness. No other ENT concerns today. Past Medical Hx: Past Medical History: Diagnosis Date Anxiety Genital herpes type 1 HTN (hypertension) Type 2 diabetes mellitus Past Surgical Hx: Past Surgical History: Procedure Laterality Date CHOLECYSTECTOMY Social History: Social History Tobacco Use Smoking status: Never Smoker Smokeless tobacco: Never Used Substance Use Topics Alcohol use: Never Frequency: Never Drug use: Never Family History: Family History Problem Relation Age of Onset Diabetes Mother High cholesterol Mother Hypertension Mother Diabetes Father Hypertension Father Diabetes Maternal Grandmother High cholesterol Maternal Grandmother Diabetes Maternal Grandfather High cholesterol Maternal Grandfather Diabetes Paternal Grandmother High cholesterol Paternal Grandmother Diabetes Paternal Grandfather High cholesterol Paternal Grandfather Allergies: Ibuprofen Medications: Current Outpatient Medications Medication Sig azelastine 137 mcg (0.1 %) nasal spray Use 1 [place] in each nostril 2 (two) times daily. Use in each nostril as directed fluticasone propionate 50 mcg/actuation nasal spray Use 2 Sprays in each nostril 2 (two) times daily. levocetirizine 5 mg tablet Take 1 tablet by mouth every evening. meclizine 25 mg tablet Take 1 tablet by mouth every 6 (six) hours as needed for Dizziness. glipiZIDE 10 mg tablet Take 1 tablet by mouth daily for 90 days. lisinopril 5 mg tablet Take 1 tablet by mouth daily for 90 days. famotidine 20 mg tablet Take 20 mg by mouth 2 (two) times daily. Indications : gastroesophageal reflux disease Fluticasone-Salmeterol (ADVAIR DISKUS) 100-50 mcg/dose inhalation disk Inhale 1 Puff every 12 (twelve) hours. medroxyPROGESTERone 10 mg tablet Take 10 mg by mouth daily. dicyclomine (BENTYL) 10 mg capsule Take 1 capsule by mouth every 8 (eight) hours as needed for Abdominal pain. busPIRone 7.5 mg tablet TAKE 1 TABLET BY MOUTH TWICE DAILY NEEDED FOR ANXIETY naproxen (NAPROSYN) 500 mg tablet Take 1 tablet by mouth 2 (two) times daily with meals. sod mvsjh-wszzqu-zoicaz bottle (NEILMED SINUS RINSE COMPLETE) pkdv Use 1 Bottle in each nostril 2 (two) times daily. Use in hot shower 1 hour before bedtime atorvastatin calcium (ATORVASTATIN ORAL) Take by mouth. Review of Systems Positive issues in the Review of Systems will be BOLD Constitutional: fevers, chills, sweats, fatigue, weight loss, change in appetite Eyes: vision changes, diplopia, eye pain Ears: hearing loss, otalgia, otorrhea, tinnitus, vertigo Nose: rhinorrhea, nasal congestion, facial pressure, epistaxis Throat: dysphagia, odynophagia, dysphonia Cardiovascular: chest pain, palpitations, dyspnea on exertion Respiratory: cough, wheeze, shortness of breath; hx asthma or COPD Gastrointestinal: nausea, vomiting, diarrhea, abdominal pain, heartburn, indigestion Genitourinary: recent infections, ESRD, dysuria, oliguria Musculoskeletal: arthritis, joint pain, mobility problems Integumentary: skin infection, rashes or skin changes Neurologic: seizures, headaches, weakness, vertigo Psychiatric: ADHD, anxiety, depressed mood, substance abuse Endocrine: thyroid problems, diabetes Hematologic: bleeding disorders, easy bruising Allergy/Immunology: food allergy, environmental allergy, immunosuppressed, eczema Physical Exam: BP 115/77 (BP Location: Right arm, Patient Position: Standing, BP CUFF SIZE: Adult Large) | Pulse 98 | Wt 229 lb 8 oz (104.1 kg) | BMI 39.39 kg/m GENERAL: WDWN in NAD. Normal voice. No dyspnea or stridor. HEAD/FACE: Normocephalic, atraumatic. Facial nerve intact and bilaterally symmetric. Submandibular and parotid glands non-tender and without masses. EYES: EOMI; conjunctivae clear EARS: Auricles normal. Canals clear. TMs intact. Middle ear clear bilaterally. NOSE: no external deviation; nares patent, nasal mucosa erythematous; septum midline with bilateral spurs; inferior turbinates moderately hypertrophies. No polyps, purulence, or mass. OC/OP: No trismus; oral mucosa is wnl, no mass or lesion; good dentition, normal tongue mobility; tonsils present and not enlarged; uvula midline; palate intact and elevates symmetrically. NECK: Neck is supple; trachea midline; no obvious goiter or thyroid nodules appreciated. LYMPH: Unable to appreciate gross cervical lymphadenopathy. SKIN: No concerning rash, lesion, pigmentation changes on head/neck. NEUROLOGICAL: Cranial nerves II-XII grossly intact. PSYCHIATRIC: Oriented to person, place, time. Appropriate affect for age. RESPIRATORY: Good respiratory effort; symmetrical expansion of thoracic cavity. CARDIOVASCULAR: Extremities well perfused. No cyanosis. Nystagmus: - Spontaneous nystagmus: none - Gaze: normal - Head positioning: no significant nystagmus Mariangel Hallpike test: negative for nystagmus Romberg test: normal Gait: normal Procedure Rigid Sinonasal Endoscopy: Rigid sinonasal endoscopy was performed in clinic for better visualization of the patient's nasal cavity and sinuses. Topical anesthesia and decongestion were used. Using a flexible endoscope, the nasal cavity was evaluated. Septum was found to be midline with bilateral anterior septal spurs. Erythematous appearing nasal mucosa. Moderate ITH that did not decongest well. Middle meati and SE recesses clear of drainage and polyps bilaterally. The nasopharynx showed no significant lesions or purulence. The patient tolerated the procedure well with no complications Medical Data Comprehensive chart review performed in Epic Laboratory I have reviewed the patient's labs. All labs are within normal limits. Radiology No pertinent imaging Diagnoses: ICD-10-CM ICD-9-CM 1. Benign paroxysmal positional vertigo, unspecified laterality H81.10 386.11 2. Seasonal allergic rhinitis, unspecified trigger J30.2 477.9 3. Nasal septal spur J34.89 478.19 4. Hypertrophy of inferior nasal turbinate J34.3 478.0 5. Facial pressure R68.89 780.99 6. Rhinorrhea J34.89 478.19 Assessment/Plan: Mckenna Haney is a 34 year old female with hx of well controlled T2DM, asthma, and HTN presenting for initial evaluation of nasal congestion and vertigo. History and exam are significant for BPPV. Mariangel-hallpike was negative for nystagmus on exam today and BPPV is likely resolving. Discussed dx of BPPV and educated patient on home BPPV exercises for conservative management. She also has significant inferior turbinate hypertrophy and allergic changes but no evidence of sinusitis on exam. Will optimize medical management of allergic rhinitis. If no improvement at follow up, will discuss RAST testing atthat time. - Provided patient with home BPPV exercises in Indonesian - Stop meclizine - Increase Flonase to 2 sprays BID for AR. Rx sent to pharmacy. - Start azelastine nasal spray 1 spray BID. Rx sent to pharmacy. - Stop zyrtec - Start Xyzal daily for AR. Rx sent to pharmacy. RTC in 1 month to follow up for AR and BPPV I discussed at length the exam findings, diagnoses, and treatment options with the patient. Questions have been answered to satisfaction. Nicolette Sagastume PA-C Department of Otolaryngology [facility] documented in this encounter Plan of Treatment Date Type Specialty Care Team Description 07/25/2019 Office Visit Surgery Jeanette Pedro MD [address] [facility] [address] [place] [address] [phone] 07/26/2019 Office Visit Obstetrics & Gynecology Claritza Velez MD [address] [place] [phone] 08/13/2019 Office Visit Obstetrics & Gynecology Marsha Fields PA-C [address] [place] [address] [address] [place] [phone] 08/19/2019 Office Visit Otolaryngology Nicolette Sagastume PA [address] [place] [phone] 12/19/2019 Cannon Crewmember Visit Endocrinology Diabetes & LamonteRegla alvarez, RD Metabolism [address] [place] [address] [phone] Health Maintenance Due Date Last Done Comments EYE EXAM 1997 VARICELLA VACCINES (1 of 2 - 13+ 2000 2-dose series) FOOT EXAM 2005 DTaP,Tdap,and Td Vaccines (1 - 2006 Tdap) INFLUENZA VACCINE (#1) 2019 HgA1C 12/14/2019 06/13/2019 LDL-C 06/13/2020 06/13/2019 URINE MICROALBUMIN 06/13/2020 06/13/2019 CREATININE (SERUM) 07/15/2020 07/15/2019, 06/13/2019, 06/13/2019, Additional history exists PAP SMEAR 05/01/2022 05/01/2019 PNEUMOCOCCAL 0-64 YEARS COMBINED Completed 06/13/2019 SERIES documented as of this encounter Results Not on filedocumented in this encounter Visit Diagnoses Diagnosis Benign paroxysmal positional vertigo, unspecified laterality - Primary Seasonal allergic rhinitis, unspecified trigger Nasal septal spur Other diseases of nasal cavity and sinuses Hypertrophy of inferior nasal turbinate Hypertrophy of nasal turbinates Facial pressure Rhinorrhea Other diseases of nasal cavity and sinuses documented in this encounter Insurance Payer Benefit Plan / Subscriber ID Effective Dates Phone Address Type Group [facility] xxxxxxxxx 2019-Present Medicaid COMM PLAN - PLUS MANAGED MEDICAID documented as of this encounter Advance Directives Name Relationship Healthcare Agent Communication Relationship Michelet Brower Life Partner Primary healthcare agent Miranda Morales Sibling Primary healthcare agent "
--- OUTSIDE RECORDS SUMMARY | 2019-08-02 16:00 | XMS REPORT | Summary of Care ---
:1985 Author Organization [facility] Address [address] [place] [address] Care Team Providers Name Role Phone Klarissa Delgado Insurance Hmo Klarissa Delgado Primary Care Provider Encounter Details Date Type Department Care Team Description 07/25/2019 Prep For Surgery [facility] Urology- Rosa Maria Flores, Epigastric pain (Primary Dx); [facility] [address] [place] [address] [phone] Allergies Active Allergy Reactions Severity Noted Date Comments Ibuprofen Rash 04/19/2017 documented as of this encounter (statuses as of 07/25/2019) Medications Medication Sig Dispensed Refills Start End Status Date Date atorvastatin calcium Take by mouth. 0 Active (ATORVASTATIN ORAL) sod xlpdn-ynzvug-jsaald Use 1 Bottle in each 1 Each 0 Active bottle (NEILMED SINUS nostril 2 (two) 9 RINSE COMPLETE) times daily. Use in pkdvIndications: hot shower 1 hour Sinusitis, unspecified before bedtime chronicity, unspecified location busPIRone 7.5 mg tablet TAKE 1 TABLET BY 0 Active MOUTH TWICE DAILY 9 NEEDED FOR ANXIETY naproxen (NAPROSYN) 500 Take 1 tablet by 10 tablet 0 Active mg tabletIndications: mouth 2 (two) times 9 Abdominal pain, left daily with meals. lower quadrant dicyclomine (BENTYL) 10 Take 1 capsule by 30 capsule 0 Active mg capsuleIndications: mouth every 8 9 Epigastric pain (eight) hours as needed for Abdominal pain. famotidine 20 mg Take 20 mg by mouth 0 Active tabletIndications: 2 (two) times daily. gastroesophageal reflux Indications: disease gastroesophageal reflux disease medroxyPROGESTERone 10 Take 10 mg by mouth 0 Active mg tablet daily. Fluticasone-Salmeterol Inhale 1 Puff every 60 Each 1 Active (ADVAIR DISKUS) 100-50 12 (twelve) hours. 9 mcg/dose inhalation diskIndications: Mild intermittent asthma without complication lisinopril [...] tablet 0 Active tabletIndications: mouth every 6 (six) 9 Vertigo hours as needed for Dizziness. azelastine 137 mcg (0.1 Use 1 [place] in each 30 mL 4 Active %) nasal nostril 2 (two) 9 sprayIndications: times daily. Use in Seasonal allergic each nostril as rhinitis, unspecified directed trigger levocetirizine 5 mg Take 1 tablet by 30 tablet 4 Active tabletIndications: mouth every evening. 9 Seasonal allergic rhinitis, unspecified trigger fluticasone propionate Use 2 Sprays in each 16 g 4 Active 50 mcg/actuation nasal nostril 2 (two) 9 sprayIndications: times daily. Seasonal allergic rhinitis, unspecified trigger documented as of this encounter (statuses as of 07/25/2019) Active Problems Problem Noted Date Type 2 [...] as of this encounter (statuses as of 07/25/2019) Immunizations Name Administration Dates Next Due Pneumococcal [...] Date Type Specialty Care Team Description 07/25/2019 Sewer Pipe Layer Helper Visit Phlebotomy 2, [facility] 07/26/2019 Office Visit Obstetrics & Gynecology Claritza Velez MD [address] [place] [phone] [phone] 08/13/2019 Office Visit Obstetrics & Gynecology Marsha Fields PA-C [address] [place] [phone] [phone] 08/19/2019 Office Visit Otolaryngology Nicolette Sagastume PA [address] [place] [phone] 12/19/2019 Piano Accompanist Visit Endocrinology Diabetes & LamonteRegla alvarez, ANTONIO Metabolism [address] [place] [address] [phone] Health Maintenance Due Date Last Done Comments [...] filedocumented in this encounter Visit Diagnoses Diagnosis Epigastric pain - Primary Abdominal pain, epigastric Indigestion Dyspepsia and other specified disorders of function of stomach documented in this encounter Insurance Payer Benefit Plan / Subscriber ID Effective Dates Phone Address Type Group [facility] xxxxxxxxx 2019-Present Medicaid COMM PLAN - PLUS MANAGED MEDICAID documented as of this encounter Advance Directives Name Relationship Healthcare Agent Communication Relationship Michelet Browre Life Partner Primary healthcare agent Miranda Morales Sibling Primary healthcare agent
--- OUTSIDE RECORDS SUMMARY | 2019-08-02 16:00 | XMS REPORT | Summary of Care ---
:1985 Author Organization [facility] Address [address] [place] [address] Care Team Providers Name Role Phone Klarissa Delgado Insurance Hmo Klarissa Delgado Primary Care Provider Reason for Visit Reason Comments New Evaluation Allergies MIGRAINE Dizziness (Routine) Status Reason Specialty Diagnoses / Referred By Referred To Procedures Contact Contact Closed Otolaryngology Diagnoses Allergic sinusitis Karoline Alvarez, Procedures CONSULT/REFERRAL ENT [facility] [address] [phone] Encounter Details Date Type Department Care Team Description 07/18/2019 Office Visit [facility] Ear, Nose Nicolette Sagastume Benign paroxysmal positional vertigo, unspecified laterality (Primary Dx); and Throat-LILIANA Holbrook Seasonal allergic rhinitis, unspecified trigger; [address] Nasal septal spur; [address], [place] Hypertrophy of inferior nasal turbinate; [place] [phone] Facial pressure; [place], [place] [phone] Rhinorrhea [address] [phone] Allergies Active Allergy Reactions Severity Noted Date Comments Ibuprofen Rash 04/19/2017 documented as of this encounter (statuses as of 07/18/2019) Medications Medication Sig Dispensed Refills Start End Status Date Date atorvastatin calcium Take by mouth. 0 Active (ATORVASTATIN ORAL) sod Use 1 Bottle in 1 Each 0 04/13/ Active goayd-tunmrm-mltqnn each nostril 2 019 bottle (NEILMED SINUS [...] for Dizziness. azelastine 137 mcg Use 1 [place] in 30 mL 4 Active (0.1 %) [...] hogar. Si vargas mdico le sotomayor mostrado weather observer se hace y usted se siente seguro [...] mcg (0.1 %) nasal spray Use 1 [place] in each nostril 2 (two) times daily. [...] 2 (two) times daily with meals. sod dlcfn-yzcjcw-ogrbok bottle (NEILMED SINUS RINSE COMPLETE) pkdv Use [...] Provided patient with home BPPV exercises in Bengali - Stop meclizine - Increase Flonase to [...] satisfaction. Nicolette Sagastume PA-C Department of Otolaryngology [facility] documented in this encounter Plan of Treatment Date Type Specialty Care Team Description 07/25/2019 Office Visit Surgery Jeanette Pedro MD [address] [facility] [address] [place] [address] [phone] 07/26/2019 Office Visit Obstetrics & Gynecology Claritza Velez MD [address] [place] [phone] 08/13/2019 Office Visit Obstetrics & Gynecology Marsha Fields PA-C [address] [place] [address] [address] [place] [phone] 08/19/2019 Office Visit Otolaryngology Nicolette Sagastume PA [address] [place] [phone] 12/19/2019 Shade Classifier Visit Endocrinology Diabetes & LamonteRegla alvarez, RD Metabolism [address] [place] [address] [phone] Health Maintenance Due Date Last Done Comments [...] ID Effective Dates Phone Address Type Group [facility] xxxxxxxxx 2019-Present Medicaid COMM PLAN - PLUS MANAGED MEDICAID documented as of this encounter Advance Directives Name Relationship Healthcare Agent Communication Relationship Michelet Brower Life Partner Primary healthcare agent Miranda Morales Sibling Primary healthcare agent "
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
--- OUTSIDE RECORDS SUMMARY | 2019-08-02 16:01 | XMS REPORT | Summary of Care ---
:1985 Author Organization [facility] - Health Address [address] [place] [address] Care Team Providers Name Role Phone Klarissa Delgado Insurance Hmo Klarissa Delgado Primary Care Provider Reason for Visit Reason Comments LAB Encounter Details Date Type Department Care Team Description 07/25/2019 Director Auto Visit [facility] Black Aguilar MD [address] [place] [address] Abdominal pain, generalized (Primary Dx); Professional Office 2, Adc Lab Nausea Building Phlebotomy Lab Professional Office Building [address] [place] [address] , [address] [place] [address] Allergies Active Allergy Reactions Severity Noted Date Comments Ibuprofen Rash 04/19/2017 documented as of this encounter (statuses as of 07/25/2019) Medications Medication Sig Dispensed Refills Start End Status Date Date atorvastatin calcium Take by mouth. 0 Active (ATORVASTATIN ORAL) sod owpfg-khkdku-dkurtq Use 1 Bottle in each 1 Each [...] Dizziness. azelastine 137 mcg (0.1 Use 1 [place] in each 30 mL 4 Active %) [...] of 07/25/2019) Active Problems Problem Noted Date Indigestion 07/25/2019 Overview: Added automatically from request for surgery [id number] Epigastric pain 07/25/2019 Overview: Added automatically from request for surgery [id number] Type 2 diabetes mellitus with complication, without [...] Team Description 07/26/2019 Office Visit Obstetrics & Velez, Gynecology MD Claritza [address] [place] [phone] 08/05/2019 Hospital Surgery Willis, Indigestion Encounter MD Jeanette [address] [facility] [address] [place] [address] [phone] 08/05/2019 Surgery Surgery Willis, ESOPHAGOGASTRODUODENOSCOPY MD Jeanette [address] [place] [address] [address] [place] [address] [phone] 08/13/2019 Office Visit Obstetrics & Vanaphan, Gynecology KAMLA Larson [address] [facility] [address] [place] [address] 08/19/2019 Office Visit Otolaryngology Nicolette Sagastume PA [address] [place] [phone] 12/19/2019 Chiropractic Neurologist Endocrinology Regla Aburto, Visit Diabetes & RD Metabolism [address] [place] [address] [phone] Name Type Priority Associated Diagnoses Order Schedule IMMUNOGLOBULIN G A M PANEL LAB Routine Abdominal pain, Ordered: 07/25/2019 generalized Nausea IMMUNOGLOBULIN D, SERUM LAB Routine Abdominal pain, Ordered: 07/25/2019 generalized Nausea CELIAC REFLEXIVE PANEL LAB Routine Abdominal pain, Ordered: 07/25/2019 generalized Nausea Health Maintenance Due Date Last Done Comments [...] filedocumented in this encounter Visit Diagnoses Diagnosis Abdominal pain, generalized - Primary Nausea Nausea alone documented in this encounter Insurance Payer Benefit Plan / Subscriber ID Effective Dates Phone Address Type Group [facility] xxxxxxxxx 2019-Present Medicaid COMM PLAN - PLUS MANAGED MEDICAID documented as of this encounter Advance Directives Name Relationship Healthcare Agent Communication Relationship Michelet Brower Life Partner Primary healthcare agent Miranda Morales Sibling Primary healthcare agent
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
--- OUTSIDE RECORDS SUMMARY | 2019-08-02 16:01 | XMS REPORT | Summary of Care ---
:1985 Author Organization [facility] - [facility] Address [address] [place] [address] Care Team Providers Name Role Phone Klarissa Delgado Insurance Hmo Klarissa Delgado Primary Care Provider Reason for Visit Reason Comments New Patient Stomach Aches/GERD symptoms (Routine) Status Reason Specialty Diagnoses / Procedures Referred By Referred To Contact Contact Closed Gastroenterology Diagnoses Gastroesophageal reflux disease, esophagitis presence not specified Karoline Alvarez, Procedures CONSULT/REFERRAL GASTROENTEROLOGY PRODUCT CRAFTSMAN [address] [phone] Encounter Details Date Type Department Care Team Description 07/25/2019 Office Visit [facility] Surgical Pedro, Jeanette, Atypical chest pain (Primary Dx); Specialties - Diogenes PASTOR Epigastric pain [address] [address], [address] [place] [address] [address] [facility] [phone] [place], [place] [phone] Allergies Active Allergy Reactions Severity Noted Date Comments Ibuprofen Rash 04/19/2017 documented as of this encounter (statuses as of 07/25/2019) Medications Medication Sig Dispensed Refills Start End Status Date Date atorvastatin calcium Take by mouth. 0 Active (ATORVASTATIN ORAL) sod jszoc-luvlhh-wcxbbb Use 1 Bottle in each 1 Each [...] Dizziness. azelastine 137 mcg (0.1 Use 1 [place] in each 30 mL 4 Active %) [...] MCG (0.1 %) NASAL SPRAY Use 1 [place] in each nostril 2 (two) times daily. [...] 2 (two) times daily with meals. SOD EFAWX-ADIKBY-PFLWGV BOTTLE (NEILMED SINUS RINSE COMPLETE) PKDV Use 1 Bottle in each nostril 2 (two) times daily. Use in hot shower 1 hour before bedtime START taking Modified Medications as Prescribed No medications on file STOP taking these medications No medications on file Current Outpatient Medications Medication Sig Dispense Refill azelastine 137 mcg (0.1 %) nasal spray Use 1 [place] in each nostril 2 (two) times daily. [...] 12 (twelve) hours. 60 Each 1 sod cwbhr-skabts-vycoky bottle (NEILMED SINUS RINSE COMPLETE) pkdv Use [...] file Gets together: Not on file Attends latter-day service: Not on file Active member of [...] othopnea, claudication, edema, coronary artery disease/history of OR Respiratory: Cough, sputum production, hemoptysis, wheezing, shortness [...] Visit Obstetrics & Gynecology Claritza Velez MD [address] [place] [phone] 08/13/2019 Office Visit Obstetrics & Gynecology Marsha Fields PA-C [address] [place] [phone] 08/19/2019 Office Visit Otolaryngology Nicolette Sagastume PA [address] [place] [phone] 12/19/2019 Director Epidemiology Visit Endocrinology Diabetes & LamonteRegla, ANTONIO Metabolism 2660 [place] [address] [phone] Health Maintenance Due Date Last Done Comments [...] Effective Dates Phone Address Type Group [facility] xxxxxxxxx 2019-Present Medicaid COMM PLAN - PLUS MANAGED MEDICAID documented as of this encounter Advance Directives Name Relationship Healthcare Agent Communication Relationship Michelet Brower Life Partner Primary healthcare agent Miranda Morales Sibling Primary healthcare agent "
--- OUTSIDE RECORDS SUMMARY | 2019-08-02 16:02 | XMS REPORT | Summary of Care ---
:1985 Author Organization [facility] - Health Address [address] [place] [address] Care Team Providers Name Role Phone Klarissa Delgado Insurance Hmo Karoline Alvarez SENIOR NET APPLICATION DEVELOPER Primary Care Provider Reason for Visit Reason Comments Follow-up F-Up from Urgent Care elevated B/P 140/100 Encounter Details Date Type Department Care Team Description 08/01/2019 Office Visit [facility] Karoline Alvarez, Essential hypertension Medicine - [place] SENIOR NET APPLICATION DEVELOPER (Primary Dx) [address] [place] Drive [phone] [address] [place] [address] Allergies Active Allergy Reactions Severity Noted Date Comments Ibuprofen Rash 04/19/2017 documented as of this encounter (statuses as of 08/01/2019) Medications Medication Sig Dispensed Refills Start End Status Date Date atorvastatin calcium Take by mouth. 0 Active (ATORVASTATIN ORAL) sod Use 1 Bottle in 1 Each 0 Active anjrl-kztfxl-hpwzkf each nostril 2 019 bottle (NEILMED SINUS [...] Take 1 capsule by 30 capsule 0 05/21/2 Active 10 mg mouth every 8 019 [...] complication, without long-term current use of insulin azelastine 137 mcg Use 1 [place] in 30 mL 4 Active (0.1 %) [...] times daily. Seasonal allergic rhinitis, unspecified trigger proMETHazine 12.5 mg Take 1 tablet by 30 tablet 0 07/30/ Active tabletIndications: mouth every 6 019 Non-intractable (six) hours as vomiting with nausea, needed for Nausea unspecified vomiting and Vomiting type (N/V). meclizine 25 mg Take 1 tablet by 20 tablet 0 07/15/2 08/01/ Discontinued tabletIndications: mouth every 2019 Vertigo (six) hours as needed for Dizziness. labetalol 100 mg Take 1 tablet by 30 tablet 0 08/01/2 08/01/ Discontinued tabletIndications: mouth daily for 30 019 2019 Essential hypertension days. documented as of this encounter (statuses as of 08/01/2019) Active Problems Problem Noted Date Indigestion 07/25/2019 Overview: Added automatically from request for surgery [id number] Epigastric pain 07/25/2019 Overview: Added automatically from request for surgery [id number] Type 2 diabetes mellitus with complication, without long-term current use of insulin Neck pain, acute 06/13/2019 Acute bilateral low back pain with bilateral sciatica 06/13/2019 Allergic sinusitis 06/13/2019 Secondary oligomenorrhea 05/10/2019 Overview: 05/10/19 s/p EMB - histology revealed a benign endometrial polyp. Cyclic progesterone started. Abdominal pain, left lower quadrant 05/10/2019 Obesity (BMI 30-39.9) 04/27/2017 documented as of this encounter (statuses as of 08/01/2019) Immunizations Name Administration Dates Next Due Pneumococcal [...] Sign Reading Time Taken Comments Blood Pressure 120/74 08/01/2019 10:19 AM CDT Pulse 75 08/01/2019 10:19 AM CDT Temperature - - Respiratory Rate - - Oxygen Saturation - - Inhaled Oxygen Concentration - - Weight 102.1 kg (225 lb) 08/01/2019 10:19 AM CDT Height 162.6 cm (5' 4") 08/01/2019 10:19 AM CDT Body Mass Index 38.62 08/01/2019 10:19 AM CDT documented in this encounter Progress Notes Karoline Alvarez FNP - 08/01/2019 10:20 AM CDT Cc: Chief Complaint Patient presents with Follow-up F-Up from Urgent Care elevated B/P 140/100 Mckenna Haney is a 34 year old female. Patient is here as a follow up urgent care visit. she was seen at the urgent care yesterday after she had some dizziness with elevated blood pressures. She is here to be restarted on blood pressure medications. In the past week, she was on lisinopril for both HTN and nephro protection due to comorbid diabetes II , that medication was discontinued as recommended by her OB as patient is working with them on getting . The lisinopril being low dose 5mg, plus her blood pressure being normal for the most part, she was not started on any other medication. She has anxiety disorder, and with each episode of panic attack or flare up her blood pressure sporadically goes high. Thus far after yesterday's episodes, her blood pressure has normalized, 120's/70's both in clinic today and at home. She has no other problems or concerns today. Allergies Mckenna is allergic to ibuprofen. Medications Outpatient Medications Prior to Visit Medication Sig Dispense Refill proMETHazine 12.5 mg tablet Take 1 tablet by mouth every 6 (six) hours as needed for Nausea and Vomiting (N/V). 30 tablet 0 azelastine 137 mcg (0.1 %) nasal spray Use 1 [place] in each nostril 2 (two) times daily. Use in each nostril as directed 30 mL 4 fluticasone propionate 50 mcg/actuation nasal spray Use 2 Sprays in each nostril 2 (two) times daily. 16 g 4 levocetirizine 5 mg tablet Take 1 tablet by mouth every evening. 30 tablet 4 meclizine 25 mg tablet Take 1 tablet by mouth every 6 (six) hours as needed for Dizziness. 20 tablet 0 glipiZIDE 10 mg tablet Take 1 tablet [...] daily with meals. 10 tablet 0 sod awgkt-ezuxlz-ccybwc bottle (NEILMED SINUS RINSE COMPLETE) pkdv Use [...] Negative. Endocrine: Endocrine negative Vital Signs BP 120/74 (BP Location: Left arm, Patient Position: Sitting, BP CUFF SIZE: Adult Large) | Pulse 75| Ht 5' 4" (1.626 m) | Wt 225 lb (102.1 kg) | LMP (Exact Date) | BMI 38.62 kg/m Physical Exam Constitutional: She is oriented to person, place, and time. She appears well- developed and well-nourished. HENT: Head: Normocephalic. Right Ear: External ear normal. Left Ear: External ear normal. Nose: Nose normal. Neck: Normal range of motion. Neck supple. No JVD present. Cardiovascular: Normal rate, regular rhythm, normal [...] Nursing note and vitals reviewed. Assessment/Plan 1. Hypertension: Continue to monitor blood pressures at home, if consistently & gt;130/80 call the clinic to consider restarting medication due to her asthma and possible . Most antihypertensives are contraindicated, Plus, considering her vertigo which she is under care eith ENT, if coupled with hypotension may worsen her symptoms. Will consider referral to cardiology depending on her blood pressures in the next 1-2 weeks, thus patient is encouraged to check blood pressures twice per day (first thing in the morning, and last thing before bedtime) and record the readings, follow up in 1-2 weeks if >130/80 most of the time as mentioned above. Go to the ER if chest pain , jaw pain, numbness, tingling... or any other symptoms requiring emergent care. Plan of care, desired health behaviors, goals, and medication discussed with patient. Education resources provided and reviewed with AVS. Patient/guardian/family verbalized understanding & agrees to plan of care. This visit did not involve counseling and coordination that comprised more than 50% of the visit time. If applicable, the [facility] database was accessed to review any controlled substance prescription claims data. The [employer] prescription claims data in [facility] was reviewed to assess patient compliance with the medication treatment plan. documented in this encounter Plan of Treatment Date Type Specialty Care Team Description Appointment Radiology Elizabeth Velez MD [address] [place] [phone] Appointment Radiology Elizabeth Alvarez FNP [address] [facility] [place] [phone] Hospital Surgery Pedro, Indigestion 9 Encounter MD Jeanette [address] [facility] [address] [place] [address] [phone] Surgery Surgery Pedro, ESOPHAGOGASTRODUODENOSCOPY 9 MD Jeanette [address] [facility] [address] [place] [address] [phone] Office Visit Obstetrics & [facility] Gynecology KAMLA Larson 146 [facility] [address] [place] [address] [phone] Office Visit Otolaryngology Elizabeth Sagastume PA [address] [place] [phone] Office Visit Obstetrics Elizabeth Kiser Gynecology MD Claritza [address] [place] [phone] Boiler Control Room Operator Visit Endocrinology Lamonte, Regla, [address] Diabetes [address] Metabolism 26[address] [place] [address] [phone] Health Maintenance Due Date Last Done Comments EYE EXAM 1997 VARICELLA VACCINES (1 of 2 - 13+ 2000 2-dose series) FOOT EXAM 2005 DTaP,Tdap,and Td Vaccines (1 - 2006 Tdap) INFLUENZA VACCINE (#1) 2019 HgA1C 12/14/2019 06/13/2019 LDL-C 06/13/2020 06/13/2019 URINE MICROALBUMIN 06/13/2020 06/13/2019 CREATININE (SERUM) 07/30/2020 07/30/2019, 07/15/2019, 06/13/2019, Additional history exists PAP SMEAR 05/01/2022 05/01/2019 PNEUMOCOCCAL 0-64 YEARS COMBINED Completed 06/13/2019 SERIES documented as of this encounter Results Not on filedocumented in this encounter Visit Diagnoses Diagnosis Essential hypertension - Primary Unspecified essential hypertension documented in this encounter Insurance Payer Benefit Plan / Subscriber ID Effective Dates Phone Address Type Group [facility] xxxxxxxxx 2019-Present Medicaid COMM PLAN - PLUS MANAGED MEDICAID documented as of this encounter Advance Directives Name Relationship Healthcare Agent Communication Relationship Michelet Brower Life Partner Primary healthcare agent Miranda Morales Sibling Primary healthcare agent
--- OUTSIDE RECORDS SUMMARY | 2019-08-02 16:02 | XMS REPORT | Summary of Care ---
:1985 Author Organization [facility] Address [address] [place] [address] Care Team Providers Name Role Phone Klarissa Delgado Insurance Hmo Karoline Alvarez OV[employer] Primary Care Provider Reason for Referral (Routine) Status Reason Specialty Diagnoses / Referred By Referred To Procedures Contact Contact New Request Neurology Diagnoses Dizziness Jihan Deluna, Procedures CONSULT/REFERRAL NEUROLOGY [facility] [address] [address] Reason for Visit Reason Comments Hypertension BP at home at 7pm 139/100, took on arrival 136/82 Headache Weakness Encounter Details Date Type Department Care Team Description 07/31/2019 Urgent Care [facility] Unknown, Attending Dizziness ( Primary Dx); Urgent Care Jihan Deluna, [facility] [address] [id number] Elevated blood pressure reading [address] [place] [address] Allergies Active Allergy Reactions Severity Noted Date Comments Ibuprofen Rash 04/19/2017 documented as of this encounter (statuses as of 07/31/2019) Medications Medication Sig Dispensed Refills Start End Status Date Date atorvastatin calcium Take by mouth. 0 Active (ATORVASTATIN ORAL) sod hjuhc-zounuu-dnjway Use 1 Bottle in each 1 Each [...] inhalation diskIndications: Mild intermittent asthma without complication glipiZIDE [...] Dizziness. azelastine 137 mcg (0.1 Use 1 [place] in each 30 mL 4 Active %) [...] by 30 tablet 0 Active tabletIndications: mouth every 6 (six) 9 Non-intractable hours as needed for vomiting with nausea, Nausea and Vomiting unspecified vomiting (N/V). type documented as of this encounter (statuses as of 07/31/2019) Active Problems Problem Noted Date Indigestion 07/25/2019 Overview: Added automatically from request for surgery [id number] Epigastric pain 07/25/2019 Overview: Added automatically from request for surgery [id number] Type 2 diabetes mellitus with complication, without long-term current use of insulin Neck pain, acute 06/13/2019 Acute bilateral low back pain with bilateral sciatica 06/13/2019 Allergic sinusitis 06/13/2019 Secondary oligomenorrhea 05/10/2019 Overview: 05/10/19 s/p EMB - histology revealed a benign endometrial polyp. Cyclic progesterone started. Abdominal pain, left lower quadrant 05/10/2019 Obesity (BMI 30-39.9) 04/27/2017 documented as of this encounter (statuses as of 07/31/2019) Immunizations Name Administration Dates Next Due Pneumococcal [...] Sign Reading Time Taken Comments Blood Pressure 136/82 07/31/2019 7:46 PM CDT Pulse 94 07/31/2019 7:46 PM CDT Temperature 37.7 C (99.8 F) 07/31/2019 7:46 PM CDT Respiratory Rate 17 07/31/2019 7:46 PM CDT Oxygen Saturation 100% 07/31/2019 7:46 PM CDT Inhaled Oxygen Concentration - - Weight 103.5 kg (228 lb 2 oz) 07/31/2019 7:46 PM CDT Height 162.6 cm (5' 4") 07/31/2019 7:46 PM CDT Body Mass Index 39.16 07/31/2019 7:46 PM CDT documented in this encounter Patient Instructions Patient InstructionsJihan Deluna FNP - 07/31/2019 7:30 PM CDT- ER precautions provided for severe headache, weakness, slurred speech, numbness, chest pain, syncope, or any other worsening symptoms. Mareo [Dizziness, Uncertain Cause] El mareo (dizziness) es un sntoma comn, que en ocasiones se describe liliya sentirse aturdido (lightheaded) o sentir que lissette est a punto de desmayarse (faint). Si dura slo unos segundos y se relaciona con un cambio de posicin (por ejemplo, levantarse despus de nora estado mucho tiempo sentado o acostado), no suele ser signo de ninguna afeccin seria. En cambio, un mareo (dizziness) que dura minutos u horas, o que aparece sin motivo aparente , puede ser erinn seal de un problema ms cathy (por ejemplo, deshidratacin [ dehydration], erinn reaccin a un medicamento, erinn enfermedad del corazn [ heart disease] o del cerebro [brain disease]). El examen que le hicieron hoy no nos permiti establecer con certeza a qu se ratna vargas mareo. En ocasiones, es necesario hacer ms pruebas para poder encontrar la causa. Por lo tanto, es importanteque genoveva las visitas de control con vargas mdico si los sntomas continan. Cuidados En [place]: 1) Si tiene un mareo que dura ms que unos pocos segundos, recustese hasta que haya pasado. As,si llegase a desmayarse, no se lastimar con la cada. 2) No conduzca ni opere ninguna mquina peligrosa hasta que los mareos hayan cesado angeli, al menos, 48 horas. 3) Si usted se marea al ponerse de pie en forma repentina, puede ser un signo de deshidratacin leve (mild dehydration). En los prximos cedillo, pao cantidades adicionales de lquidos. 4) Si hace poco que comenz a edgardo un medicamento nuevo o le aumentaron la dosis de vargas medicamentoactual (especialmente, si se trata de un medicamento para tratar la presin arterial [blood pressure medicine]), explique artie s ntomas al mdico que le recet el medicamento. Quizs deba ajustarlela dosis. Si los sntomas continan, programe erinn VISITA DE CONTROL con vargas mdico en los prximos siete cedillo para que lo evalen mejor. Busque Prontamente Atencin Mdica si algo de lo siguiente ocurre: -- Los sntomas empeoran. -- Desmayo, dolor de olive o convulsiones (seizure). -- Vmito persistente. -- Siente que usted o el cuarto rikki vueltas. -- Dolor en el pecho, el brazo, la espalda, el lucio o la mandbula. -- Palpitaciones (palpitations) [la sensacin de que el corazn est agitado , late con rapidez o ana]. -- Falta de aire. -- John en el vmito o en la materia fecal (de color negruzco o rojizo). -- Debilidad en un brazo o erinn pierna, o en un lado de la brandon. -- Dificultades para hablar o noemy. Date Last Reviewed: 07/19/[id number] [employer]. [address] [place] [address], [place] [address]. Todos los derechos reservados. Esta informacin no pretende sustituir la atencin mdica profesional. Slo vargas mdico puede diagnosticar y tratar un problema de domingo. documented in this encounter Progress Notes Jihan Deluna FNP - 07/31/2019 7:30 PM CDT Cc: Chief Complaint Patient presents with Hypertension BP at home at 7pm 139/100, took on arrival 136/82 Headache Weakness Mckenna Haney is a 34 year old female that presents to the urgent care for elevated blood pressure earlier this evening around 7pm: 139/100. She had just gotten out of the shower and felt midly dizzy with a frontal headache and pain to left neck. She was previously taking Lisinopril 5mg daily for kidney protection but was taken off by PCP yesterday because her blood pressure was well controlled and she is currently trying to get . She did not take Lisinopril today. Hypertension Severity: Moderate Onset quality: Sudden Timing: Constant Progression: Improving Chronicity: New Relieved by: AYLEEN inhibitors Worsened by: Nothing Associated symptoms: dizziness, fatigue, headaches, neck pain and weakness ( generalized) Associated symptoms: no chest pain, no confusion, no fever and no shortness of breath Risk factors: diabetes Allergies Mckenna is allergic to ibuprofen. Medications Outpatient Medications Prior to Visit Medication Sig Dispense Refill proMETHazine 12.5 mg tablet Take 1 tablet by mouth every 6 (six) hours as needed for Nausea and Vomiting (N/V). 30 tablet 0 azelastine 137 mcg (0.1 %) nasal spray Use 1 [place] in each nostril 2 (two) times daily. [...] daily with meals. 10 tablet 0 sod mysex-ycmwbw-pwgpzw bottle (NEILMED SINUS RINSE COMPLETE) pkdv Use [...] file Gets together: Not on file Attends yarsanism service: Not on file Active member of [...] Grandfather Review of Systems Constitutional: Positive for fatigue. Negative for chills and fever. Respiratory: Negative for shortness of breath. Cardiovascular: Negative for chest pain. Musculoskeletal: Positive for neck pain. Negative for arthralgias, myalgias and neck stiffness. Skin: Negative for rash. Neurological: Positive for dizziness, weakness (generalized) and headaches. Negative for syncope, speech difficulty and numbness. Psychiatric/Behavioral: Negative for agitation and confusion. Vital Signs BP 136/82 | Pulse 94 | Temp 37.7 C (99.8 F) (Oral) | Resp 17 | Ht 5' 4" (1.626 m) | Wt 228 lb 2 oz (103.5 kg) | LMP 07/25/2019 (Exact Date) | SpO2 100% | BMI 39.16 kg/m Physical Exam Constitutional: She is oriented to person, place, and time. She appears well- developed and well-nourished. No distress. HENT: Head: Normocephalic and atraumatic. Eyes: Conjunctivae and EOM are normal. Neck: Normal range of motion. Muscular tenderness present. No spinous process tenderness present. Cardiovascular: Normal rate, regular rhythm, normal heart sounds and intact distal pulses. Pulmonary/Chest: Effort normal and breath sounds normal. Neurological: She is alert and oriented to person, place, and time. She has normal strength. No sensory deficit. Gait normal. Able to raise eyebrows, frown, smile, poof out cheeks, bite down and clench jaw , stick out tongue and say AH, move tongue side to side, sensory of face to palpation intact when eyes closed, hearing to rubbing of fingers with eyes closed intact, interpretation of number of fingers being held intact. Skin: Skin is warm, dry and intact. No rash noted. Psychiatric: She has a normal mood and affect. Her behavior is normal. Thought content normal. Nursing note and vitals reviewed. Assessment/Plan 1. Dizziness - CONSULT/REFERRAL NEUROLOGY - ER precautions provided for severe headache, weakness, slurred speech, numbness, chest pain, syncope, or any other worsening symptoms. 2. Elevated blood pressure reading - instruct to continue holding Lisinopril at this time since she's trying to get . - counseled patient about monitoring blood pressure at home: - sit down for 5 minutes prior to check blood pressure. - make sure feet are flat on the floor and legs aren't crossed. - check blood pressure daily and document readings in log provided. - educated patient about goal blood pressure of <140/90 but strict ER precautions provided if blood pressure is getting too low (<105/60) and/or feels symptomatic, including: chest pain, dizziness, weakness, or palpitations. - Avoid tobacco products. - Heart Healthy Exercise: total of 150 minutes of cardio: walking,swimming, hiking, biking every week. - Heart healthy diet: low salt, low caffeine, low alcohol intake, low fat/carb/ sugar diet; increase lean meat-chicken, turkey, fish; increase vegetables/ fruits (be cautious because fruits can elevate sugar level). - may need to consider prescription of Procardia by PCP if blood pressure continue to be elevated. - follow up with PCP if symptoms don't improve or worsen. Plan of care, desired health behaviors, goals, and medication discussed with patient. Education resources provided and reviewed with AVS. Patient/guardian/family verbalized understanding & agrees to plan of care. This visit did not involve counseling and coordination that comprised more than 50% of the visit time. If applicable, the [facility] database was accessed to review any controlled substance prescription claims data. The [employer] Scripts prescription claims data in Outsmart was reviewed to assess patient compliance with the medication treatment plan. GABI Rico 07/31/2019 8:03 PM documented in this encounter Plan of Treatment Date Type Specialty Care Team Description Appointment Radiology Elizabeth Velez MD [address] [place] [phone] Appointment Elizabeth Rodrigues FNP [address] [phone] Hospital Surgery Pedro, Indigestion 9 Encounter MD Jeanette [address] [facility] [address] [place] [address] [phone] Surgery Surgery Pedro, ESOPHAGOGASTRODUODENOSCOPY 9 MD Jeanette [address] [facility] [address] [place] [address] [phone] Office Visit Obstetrics & Vanaphverenice, 9 Gynecology KAMLA Larson [address] [facility] [address] [place] [address] Office Visit Otolaryngology Mitesh, 9 [address] [place] [phone] Office Visit Obstetrics & Velez, 9 Gynecology MD Claritza [address] [place] [phone] Cloth Designer Visit Endocrinology Lamonte, Regla, [address] Metabolism [address] [place] [address] [phone] Health Maintenance Due Date Last Done Comments [...] filedocumented in this encounter Visit Diagnoses Diagnosis Dizziness - Primary Dizziness and giddiness Elevated blood pressure reading Elevated blood pressure reading without diagnosis of hypertension documented in this encounter Insurance Payer Benefit Plan / Subscriber ID Effective Dates Phone Address Type Group [facility] xxxxxxxxx 2019-Present Medicaid COMM PLAN - PLUS MANAGED MEDICAID documented as of this encounter Advance Directives Name Relationship Healthcare Agent Communication Relationship Michelet Brower Life Partner Primary healthcare agent Miranda Morales Sibling Primary healthcare agent
--- OUTSIDE RECORDS SUMMARY | 2019-08-02 16:02 | XMS REPORT | Summary of Care ---
:1985 Author Organization [facility] - Health Address [address] [place] [id number] Care Team Providers Name Role Phone Klarissa Delgado Insurance Hmo Karoline Alvarez ASSOCIATE PROFESSOR Primary Care Provider Reason for Referral Radiology Services (Routine) Status Reason Specialty Diagnoses / Referred By Referred To Procedures Contact Contact New Request Diagnostic Diagnoses Right lower quadrant abdominal pain Karoline Alvarez, Radiology Procedures US ABDOMEN COMPLETE ASSOCIATE PROFESSOR [address] [address] Reason for Visit Reason Comments Abdominal Pain mid epigastric (umbilicus) area to the right epigastric midline area for the past one day Nausea Vomiting Diarrhea LAB WORK Encounter Details Date Type Department Care Team Description 07/30/2019 Office Visit [facility] Karoline Alvarez FNP Right lower quadrant abdominal pain (Primary Dx); Medicine - [place] [address] Non-intractable vomiting with nausea, unspecified vomiting type [address] [place] [address] [place], [place] [phone] [address] Allergies Active Allergy Reactions Severity Noted Date Comments Ibuprofen Rash 04/19/2017 documented as of this encounter (statuses as of 07/30/2019) Medications Medication Sig Dispensed Refills Start End Status Date Date atorvastatin calcium Take by mouth. 0 Active (ATORVASTATIN ORAL) sod mrenc-xceqjl-aavbnm Use 1 Bottle in each 1 Each [...] Dizziness. azelastine 137 mcg (0.1 Use 1 [place] in each 30 mL 4 Active %) [...] as of this encounter (statuses as of 07/30/2019) Active Problems Problem Noted Date Indigestion 07/25/2019 Overview: Added automatically from request for surgery [id number] Epigastric pain 07/25/2019 Overview: Added automatically from request for surgery [id number] Type 2 diabetes mellitus with complication, without long-term current use of insulin Neck pain, acute 06/13/2019 Acute bilateral low back pain with bilateral sciatica 06/13/2019 Allergic sinusitis 06/13/2019 Secondary oligomenorrhea 05/10/2019 Overview: 05/10/19 s/p EMB - histology revealed a benign endometrial polyp. Cyclic progesterone started. Abdominal pain, left lower quadrant 05/10/2019 Obesity (BMI 30-39.9) 04/27/2017 documented as of this encounter (statuses as of 07/30/2019) Immunizations Name Administration Dates Next Due Pneumococcal [...] Sign Reading Time Taken Comments Blood Pressure 118/70 07/30/2019 3:13 PM CDT Pulse - - Temperature - - Respiratory Rate - - Oxygen Saturation - - Inhaled Oxygen Concentration - - Weight 103.4 kg (228 lb) 07/30/2019 3:13 PM CDT Height - - Body Mass Index 39.14 07/26/2019 8:13 AM CDT documented in this encounter Progress Notes Karoline Alvarez, GABI - 07/30/2019 3:00 PM CDT Cc: Chief Complaint Patient presents with Abdominal Pain mid epigastric (umbilicus) area to the right epigastric midline area for the past one day Nausea Vomiting Diarrhea LAB WORK Mckenna Haney is a 34 year old female. Patient has a hx of GERD, on PPI with relief. Today has right upper and lower abdominal pain upon awakening. Denies any urinary symptoms, does not appear to be like her GERD even though it woke her up from sleep as with GERD flare up. She has had cholecystectomy and has no is trying to get but not yet as of last week. NO vaginal bleeding, no other symptoms. Abdominal Pain Pain location: RLQ and RUQ Pain quality: aching Pain radiates to: R flank Pain severity: Mild Onset quality: Gradual Duration: 1 day Timing: Constant Progression: Unchanged Chronicity: New Context: not sick contacts and not trauma Relieved by: Nothing Worsened by: Nothing Ineffective treatments: None tried Associated symptoms: vomiting (x2 times today, food content) Associated symptoms: no chest pain, no chills, no cough, no fever and no shortness of breath Risk factors: obesity Allergies Mckenna is allergic to ibuprofen. Medications Outpatient Medications Prior to Visit Medication Sig Dispense Refill azelastine 137 mcg (0.1 %) nasal spray Use 1 [place] in each nostril 2 (two) times daily. [...] daily with meals. 10 tablet 0 sod vplub-dcbeti-kcjvpg bottle (NEILMED SINUS RINSE COMPLETE) pkdv Use [...] Paternal Grandfather Review of Systems Constitutional: Negative. Negative for chills and fever. Respiratory: Negative. Negative for apnea, cough, choking, chest tightness, shortness of breath andwheezing. Cardiovascular: Negative. Negative for chest pain, palpitations and leg swelling. Gastrointestinal: Positive for abdominal pain and vomiting (x2 times today, food content). Genitourinary: Negative. Skin: Negative. Neurological: Negative. Endocrine: Endocrine negative Vital Signs BP 118/70 | Wt 228 lb (103.4 kg) | LMP 07/25/2019 (Exact Date) | BMI 39.14 kg /m Physical Exam Constitutional: She is [...] distension and no mass. There is tenderness (right lower quadrant , suprapubic region). There is no rebound and no guarding. No hernia. Neurological: She is alert and oriented to person, place, and time. Skin: Skin is warm and dry. Capillary refill takes less than 2 seconds. No rash noted. No erythema. No pallor. Psychiatric: She has a normal mood and affect. Nursing note and vitals reviewed. Assessment/Plan 1. Abdominal pain: will get CBC, CMP, UA And sonogram to determine etiology. May take Tylenol or NSAID as needed for pain. Continue PPI for GERD. Further interventions to follow depending on study results. Continue care as scheduled with PROPERTY SITE MANAGER. RTC is worse or go to ER if intractable. 2. N/V: phenergan given as needed for this. Full liquid diet encouraged and no dairy products untilsymptoms subside, and hydrate more. IF unable to hold even fluids down, please go to the ER. Plan of care, desired health behaviors, goals, and medication discussed with patient. Education resources provided and reviewed with AVS. Patient/guardian/family verbalized understanding & agrees to plan of care. This visit did not involve counseling and coordination that comprised more than 50% of the visit time. If applicable, the [facility] database was accessed to review any controlled substance prescription claims data. The [employer] prescription claims data in Platial was reviewed to assess patient compliance with the medication treatment plan. rma Garcia - 07/30/2019 3:00 PM CDTVenipuncture Collection performed by clean technique. Total of 1 attempts were made. Slight pressureand a bandage/ dressing were applied to the site(s). The patient experienced no complications. Specimens were sent processed to [facility] laboratories. documented in this encounter Plan of Treatment Date Type Specialty Care Team Description Appointment Radiology Elizabeth Velez MD [address] [place] [phone] [phone] Appointment Radiology Elizabeth Alvarez FNP [address] [facility] [place] [address] Hospital Surgery Pedro, Indigestion 9 Encounter MD Jeanette [address] [facility] [address] [place] [address] [phone] Surgery Surgery Pedro, ESOPHAGOGASTRODUODENOSCOPY Elizabeth Reid MD [address] [facility] [address] [place] [address] [phone] Office Visit Obstetrics & [facility] Gynecology KAMLA Larson [address] [facility] [address] [facility] [address] [place] [address] [phone] Office Visit Otolaryngology [place], [address] [place] [phone] Office Visit Obstetrics & Velez, 9 Gynecology MD Claritza [address] [place] [phone] Psychology Technician Visit Endocrinology Lamonte, Regla, [address] Metabolism [address] [place] [address] [phone] Name Type Priority Associated Diagnoses Order Schedule CBC WITH DIFF LAB Routine Right lower quadrant Ordered: 07/30/2019 abdominal pain COMP. METABOLIC PANEL LAB Routine Right lower quadrant Ordered: 07/30/2019 ([id number]) abdominal pain URINALYSIS LAB Routine Right lower quadrant Ordered: 07/30/2019 abdominal pain US ABDOMEN COMPLETE IMAGING Routine Right lower quadrant Expected: abdominal pain 07/30/2019, Expires: 07/30/2020 CBC WITH DIFFERENTIAL LAB Routine Right lower quadrant Ordered: 07/30/2019 abdominal pain Health Maintenance Due Date Last Done Comments [...] filedocumented in this encounter Visit Diagnoses Diagnosis Right lower quadrant abdominal pain - Primary Abdominal pain, right lower quadrant Non-intractable vomiting with nausea, unspecified vomiting type documented in this encounter Insurance Payer Benefit Plan / Subscriber ID Effective Dates Phone Address Type Group [facility] xxxxxxxxx 2019-Present Medicaid COMM PLAN - PLUS MANAGED MEDICAID documented as of this encounter Advance Directives Name Relationship Healthcare Agent Communication Relationship Michelet Brower Life Partner Primary healthcare agent Miranda Morales Sibling Primary healthcare agent "
--- OUTSIDE RECORDS SUMMARY | 2019-08-02 16:02 | XMS REPORT | Summary of Care ---
:1985 Author Organization [facility] - Health Address [address] [place] [address] Care Team Providers Name Role Phone Klarissa Delgado Insurance Hmo Karoline Alvarez SEMICONDUCTOR WAFERS SAW OPERATOR Primary Care Provider Reason for Referral Radiology Services (Routine) Status Reason Specialty Diagnoses / Referred By Referred To Procedures Contact Contact New Request Diagnostic Diagnoses Right lower quadrant abdominal pain Karoline Alvarez, Radiology Procedures US ABDOMEN COMPLETE SEMICONDUCTOR WAFERS SAW OPERATOR [address] [address] Reason for Visit Reason Comments Abdominal Pain mid epigastric (umbilicus) area to the right epigastric midline area for the past one day Nausea Vomiting Diarrhea LAB WORK Encounter Details Date Type Department Care Team Description 07/30/[address] Office [address] [facility] Family Karoline Alvarez FNP Right lower quadrant abdominal pain (Primary Dx); Medicine - [place] [address] Non-intractable vomiting with nausea, unspecified vomiting type [address] [place] [address] [place], [place] [phone] [address] Allergies Active Allergy Reactions Severity Noted Date Comments Ibuprofen Rash 04/19/2017 documented as of this encounter (statuses as of 07/30/2019) Medications Medication Sig Dispensed Refills Start End Status Date Date atorvastatin calcium Take by mouth. 0 Active (ATORVASTATIN ORAL) sod nevyj-qcpwpo-qgwgnm Use 1 Bottle in each 1 Each [...] Dizziness. azelastine 137 mcg (0.1 Use 1 Monetta in each 30 mL 4 Active %) [...] Overview: Added automatically from request for surgery [id number] Epigastric pain 07/25/2019 Overview: Added automatically from request for surgery [id number] Type 2 diabetes mellitus with complication, without [...] mcg (0.1 %) nasal spray Use 1 Monetta in each nostril 2 (two) times daily. [...] daily with meals. 10 tablet 0 sod vcdll-kskmbr-wwizyg bottle (NEILMED SINUS RINSE COMPLETE) pkdv Use [...] file Gets together: Not on file Attends christianity service: Not on file Active member of [...] study results. Continue care as scheduled with WATER QUALITY ASSISTANT. RTC is worse or go to ER [...] of the visit time. If applicable, the [facility] database was accessed to review any controlled substance prescription claims data. The [employer] prescription claims data in [facility] was reviewed to assess patient compliance with the medication treatment plan. rma Garcia - 07/30/2019 3:00 PM CDTVenipuncture Collection performed by clean technique. Total of 1 attempts were made. Slight pressureand a bandage/ dressing were applied to the site(s). The patient experienced no complications. Specimens were sent processed to [facility] laboratories. documented in this encounter Plan of Treatment Date Type Specialty Care Team Description Appointment Radiology Elizabeth Velez MD [address] [place] [address] [phone] Appointment Radiology Elizabeth Alvarez FNP [address] [facility] [place] [address] Hospital Surgery Pedro, Indigestion 9 Encounter MD Jeanette [address] [facility] [address] [place] [address] [phone] Surgery Surgery Pedro, ESOPHAGOGASTRODUODENOSCOPY Elizabeth Reid MD [address] [facility] [address] [place] [address] [phone] Office Visit Obstetrics & [facility] Gynecology KAMLA Larson [address] [facility] [address] [facility] [address] [place] [address] [phone] Office Visit Otolaryngology Sagastume, 9 LIL[address] [place] [phone] Office Visit Obstetrics & Velez, 9 Gynecology MD Claritza 301 [place] [phone] Bartender Visit Endocrinology Lamonte, Regla, [address] Metabolism 2660 [place] [address] [phone] Name Type Priority Associated Diagnoses Order Schedule CBC WITH DIFF LAB Routine Right lower quadrant Ordered: 07/30/2019 abdominal pain COMP. METABOLIC PANEL LAB Routine Right lower quadrant Ordered: 07/30/2019 (10125) abdominal pain URINALYSIS LAB Routine Right lower [...] Dates Phone Address Type Group [facility] xxxxxxxxx 2019-Present Medicaid COMM PLAN - PLUS MANAGED MEDICAID documented as of this encounter Advance Directives Name Relationship Healthcare Agent Communication Relationship Michelet Brower Life Partner Primary healthcare agent Miranda Morales Sibling Primary healthcare agent "
--- OUTSIDE RECORDS SUMMARY | 2019-08-02 16:03 | XMS REPORT | Summary of Care ---
:1985 Author Organization [facility] Address [address] [place] [address] Care Team Providers Name Role Phone Klarissa Delgado Insurance Hmo Karoline Alvarez Primary Care Provider Reason for Referral (Routine) Status Reason Specialty Diagnoses / Procedures Referred By Referred To Contact Contact Closed Diagnostic Diagnoses Female infertility associated with anovulation Velez, Radiology Procedures FL HYSTEROSALPINGOGRAM MD Claritza [address] [place] [phone] (Routine) Status Reason Specialty Diagnoses / Procedures Referred By Referred To Contact Contact Closed Diagnostic Diagnoses Female infertility associated with anovulation Velez, Radiology Procedures FL HYSTEROSALPINGOGRAM MD Claritza [address] [place] [phone] Reason for Visit Auth/Cert Status Reason Specialty Diagnoses / Referred By Referred To Procedures Contact Contact Clinical Medical Diagnoses Visit for laboratory test Visit for laboratory test [facility] Laboratory Procedures BETA HCG [address] [place] [address] [place] [address] Encounter Details Date Type Department Care Team Description 08/01/2019 Hospital Encounter [facility] Claritza Velez MD Arrived [facility] [address] [place] [address] [place] [address] [phone] Allergies Active Allergy Reactions Severity Noted Date Comments Ibuprofen Rash 04/19/2017 documented as of this encounter (statuses as of 08/02/2019) Medications Medication Sig Dispensed Refills Start End Status Date Date atorvastatin calcium Take by mouth. 0 Active (ATORVASTATIN ORAL) sod dgulr-ozkpmp-vwnoaf Use 1 Bottle in each 1 Each [...] Take 1 tablet by 30 tablet 2 // Active tabletIndications: mouth daily for 90 9 019 Glycosuria, Type 2 days. diabetes mellitus without complication, without long-term current use of insulin azelastine 137 mcg (0.1 Use 1 Lexa in each 30 mL 4 Active %) [...] as of this encounter (statuses as of 08/02/2019) Active Problems Problem Noted Date Indigestion 07/25/2019 Overview: Added automatically from request for surgery [id number] Epigastric pain 07/25/2019 Overview: Added automatically from request for surgery [id number] Type 2 diabetes mellitus with complication, without long-term current use of insulin Neck pain, acute 06/13/2019 Acute bilateral low back pain with bilateral sciatica 06/13/2019 Allergic sinusitis 06/13/2019 Secondary oligomenorrhea 05/10/2019 Overview: 05/10/19 s/p EMB - histology revealed a benign endometrial polyp. Cyclic progesterone started. Abdominal pain, left lower quadrant 05/10/2019 Obesity (BMI 30-39.9) 04/27/2017 documented as of this encounter (statuses as of 08/02/2019) Immunizations Name Administration Dates Next Due Pneumococcal [...] Type Specialty Care Team Description Appointment Radiology Antonio, 9 JULIANA RameyP [address] [place] [phone] Hospital Surgery Willis, Indigestion 9 Encounter MD Jeanette [address] [facility] [address] [place] [address] [phone] Surgery Surgery Willis, ESOPHAGOGASTRODUODENOSCOPY 9 MD Jeanette [address] [facility] [address] [place] [address] [phone] Office Visit Obstetrics & Vantirpan, 9 Gynecology KAMLA Larson [facility] [address] [place] [address] [phone] Office Visit Otolaryngology Mitesh, 9 LIL[address] [place] [phone] Office Visit Obstetrics & Velez, 9 Gynecology MD Claritza 301 [place] [phone] Watershed Engineer Visit Endocrinology Lamonte, Regla, [address] Metabolism 2660 [place] [address] [phone] Health Maintenance Due Date Last Done Comments [...] Procedure Name Priority Date/Time Associated Comments Diagnosis FL HYSTEROSALPINGOGRAM Routine 08/01/2019 2:56 Female infertility Results for this PM CDT associated with procedure are in anovulation the results section. documented in this encounter Results FL HYSTEROSALPINGOGRAM (08/01/2019 2:56 PM CDT) Specimen Narrative Performed At HISTORY: Infertility. PACS/VR/DOSE TECHNIQUE: Procedure details were discussed with the patient. She appeared to understand everything and agreed. Perineum was cleansed using Betadine solution. Plastic vaginal speculum was inserted and vagina and external os of the cervix were cleansed with Betadine. 7 Gambian catheter with balloon was inserted through the cervix into the uterine cavity. Balloon was inflated with small amount of air. Slow injection of Omnipaque 350 contrast media was done with intermittent fluoroscopy. Multiple images of the uterus and tubes were obtained in different projections. Balloon was deflated and the catheter was removed. Patient tolerated the procedure well and experienced no apparent immediate complications. FINDINGS: Uterine cavity appears normal. Both fallopian tubes are promptly filled with contrast media with free spillage of contrast medium through the material and noted on both sides. CONCLUSIONS: Normal hysterosalpingogram study. Procedure Note [facility], Radiant Results Inft User - 08/01/2019 3:02 PM CDT HISTORY: Infertility. TECHNIQUE: Procedure details were discussed with the patient. She appeared to understand everything and agreed. Perineum was cleansed using Betadine solution. Plastic vaginal speculum was inserted and vagina and external os of the cervix were cleansed with Betadine. 7 Gambian catheter with balloon was inserted through the cervix into the uterine cavity. Balloon was inflated with small amount of air. Slow injection of Omnipaque 350 contrast media was done with intermittent fluoroscopy. Multiple images of the uterus and tubes were obtained in different projections. Balloon was deflated and the catheter was removed. Patient tolerated the procedure well and experienced no apparent immediate complications. FINDINGS: Uterine cavity appears normal. Both fallopian tubes are promptly filled with contrast media with free spillage of contrast medium through the material and noted on both sides. CONCLUSIONS: Normal hysterosalpingogram study. Performing Organization Address City/State/Zipcode Phone Number PACS/VR/DOSE documented in this encounter Visit Diagnoses Diagnosis Female infertility associated with anovulation documented in this encounter Administered Medications Medication Order MAR Action Action Date Dose Rate Site iohexol (OMNIPAQUE 300-50 mL)) Given 08/01/2019 2:45 PM CDT 50 mL injection 50 mL 50 mL, Intravenous, ONCE, 1 dose, Cassandra 08/01/19 at 1500, Routine documented in this encounter Insurance Payer Benefit Plan / Subscriber ID Effective Phone Address Type Group [facility] [id number] 2019-Prese Medicare Adv HEALTHCARE - HEALTHCARE DUAL nt HMO MANAGED COMPLETE HMO MEDICARE [facility] xxxxxxxxx 2019-Prese Medicaid HEALTHCARE COMM PLUS nt PLAN - MANAGED MEDICAID documented as of this encounter Advance Directives Name Relationship Healthcare Agent Communication Relationship Michelet Brower Life Partner Primary healthcare agent Miranda Morales Sibling Primary healthcare agent
--- OUTSIDE RECORDS SUMMARY | 2019-08-02 16:03 | XMS REPORT | Summary of Care ---
:1985 Author Organization [facility] Address [address] [place] [address] Care Team Providers Name Role Phone Klarissa Delgado Insurance Hmo Karoline Alvarez Primary Care Provider Reason for Referral Radiology Services (STAT) Status Reason Specialty Diagnoses / Referred By Referred To Procedures Contact Contact New Request Diagnostic Diagnoses Chest pain, unspecified type Jennifer Rivas, Radiology Procedures XR CHEST 1 PEE PASTOR [address] [place] [address] [place] [address] Radiology Services (STAT) Status Reason Specialty Diagnoses / Referred By Referred To Procedures Contact Contact New Request Diagnostic Diagnoses Chest pain, unspecified type Jennifer Rivas, Radiology Procedures XR CHEST 1 PEE PASTOR [address] [place] [address] [address] [place] [address] Reason for Visit Reason Comments Cough Congestion Chest Pain Back Pain Headache Neck Pain Auth/Cert Status Reason Specialty Diagnoses / Referred By Referred To Procedures Contact Contact Emergency Medicine Diagnoses COUGH;CONGESTION;CHEST PAIN;NECK PAIN;BACK PAIN [facility] [address] [place] [address] [place] [address] Encounter Details Date Type Department Care Team Description 08/02/2019 Emergency [facility]-Emergency Jennifer Rivas MD Chest pain, Department [address] [facility] unspecified type [address] [place] [address] [address] (Primary Dx) [place] [address] [place] [address] [phone] Allergies Active Allergy Reactions Severity Noted Date Comments Ibuprofen Rash 04/19/2017 documented as of this encounter (statuses as of 08/02/2019) Medications Medication Sig Dispensed Refills Start End Status Date Date atorvastatin calcium Take by mouth. 0 Active (ATORVASTATIN ORAL) sod kbvlx-owrlxt-ubemju Use 1 Bottle in each 1 Each [...] insulin azelastine 137 mcg (0.1 Use 1 [place] in each 30 mL 4 Active %) [...] Overview: Added automatically from request for surgery [id number] Epigastric pain 07/25/2019 Overview: Added automatically from request for surgery [id number] Type 2 diabetes mellitus with complication, without [...] Sign Reading Time Taken Comments Blood Pressure 125/90 08/02/2019 10:42 AM CDT Pulse 72 08/02/2019 10:42 AM CDT Temperature 36.3 C (97.4 F) 08/02/2019 8:15 AM CDT Respiratory Rate 16 08/02/2019 10:42 AM CDT Oxygen Saturation 99% 08/02/2019 10:42 AM CDT Inhaled Oxygen Concentration - - Weight 102.1 kg (225 lb) 08/02/2019 8:15 AM CDT Height - - Body Mass Index 38.62 08/01/2019 10:19 AM CDT documented in this encounter Discharge Instructions InstructionsJennifer Rivas MD - 08/02/2019 RETURN FOR ANY QUESTIONS OR CONCERNS Today you were seen by Jennifer Rivas Jr., MD You were seen today for Chief Complaint Patient presents with Cough Congestion Chest Pain Back Pain Headache Neck Pain Your ER diagnosis was ICD-10-CM ICD-9-CM 1. Chest pain, unspecified type R07.9 786.50 NO LIFE-THREATENING FINDINGS ON TODAY'S EXAM. YOUR PRESCRIPTIONS : Check out [facility] for medication discounts Medication List ASK your doctor about these medications ATORVASTATIN ORAL azelastine 137 mcg (0.1 %) nasal spray Commonly known as: ASTELIN Use 1 [place] in each nostril 2 (two) times daily. Use in each nostril as directed busPIRone 7.5 mg tablet Commonly known as: BUSPAR dicyclomine 10 mg capsule Commonly known as: BENTYL Take 1 capsule by mouth every 8 (eight) hours as needed for Abdominal pain. famotidine 20 mg tablet Commonly known as: PEPCID AC fluticasone propionate 50 mcg/actuation nasal spray Use 2 Sprays in each nostril 2 (two) times daily. Fluticasone-Salmeterol 100-50 mcg/dose inhalation disk Commonly known as: ADVAIR DISKUS Inhale 1 Puff every 12 (twelve) hours. glipiZIDE 10 mg tablet Commonly known as: GLUCOTROL Take 1 tablet by mouth daily for 90 days. levocetirizine 5 mg tablet Commonly known as: XYZAL Take 1 tablet by mouth every evening. medroxyPROGESTERone 10 mg tablet Commonly known as: CYCRIN naproxen 500 mg tablet Commonly known as: NAPROSYN Take 1 tablet by mouth 2 (two) times daily with meals. proMETHazine 12.5 mg tablet Commonly known as: PHENERGAN Take 1 tablet by mouth every 6 (six) hours as needed for Nausea and Vomiting (N/ V). sod axane-qxylgw-qbkrdb bottle Pkdv Commonly known as: NEILMED SINUS RINSE COMPLETE Use 1 Bottle in each nostril 2 (two) times daily. Use in hot shower 1 hour before bedtime ER precautions and follow up : 1. Return to ER if your symptoms should worsen or fail to improve within 72 hours. 2. The care provided in the emergency room was for acute problems only. 3. You should follow up with your primary care provider within 72 hours. 4. Fill and take all your medications as prescribed. 5. Make sure you are staying adequately hydrated. Busque attencion immediatamente si usted tiene los sitomas sigue, vuelve peor o si hay sitomas nuevas o para cualquiera preoccupacion incluyendo dolor del pecho , falta aire, se siente debile, mas fievre, mas dolor, nausea, vomitando, sangrando que no es normal, confusion, baja or pierdas conciencia. MAY FOLLOW-UP WITH A PROVIDER OF YOUR CHOICE, SUCH : 1. A PHYSICIAN OF YOUR CHOICE 2. [facility], . LOCATIONS IN [facility] 3. [facility], [address] [place] [address]; [phone] OR, IF YOU WISH TO FOLLOW-UP WITHIN THE [facility], MAY TRY THESE OPTIONS (CLINIC APPOINTMENTS AVAILABLE ON [id number] BASIS): 1. SCHEDULE AN APPOINTMENT ONLINE AT WWW.[facility] 2. OR CALL THE [facility] AT OR 3. OR CALL YOUR [facility] PHYSICIAN'S OFFICE DIRECTLY IF YOU ARE ALREADY AN ESTABLISHED [facility] PATIENT. [facility] RETURN TO WORK / SCHOOL NASIR Haney WAS SEEN IN THE ER AND DISCHARGED 08/02/2019 TODAY, 9:04 AM & May return to Work / School / Incarceration on X with activity as tolerated indicated below. ___The following limitations apply until pt is seen by Physician and cleared to return to normal activity. _X_ Off for two days and return to activity as tolerated at work or school ___ No Sports ___ No work ___ Do not return until fever free for 24 hours. ___ No school JENNIFER RIVAS Jr., MD [facility] [place] [address] ### The patient may have been given Narcotic pain medications during their stay in the ED that may show up on a Drug Screen. The hospital discharge paper work will identify these medications. AttachmentsThe following attachments cannot be sent through Care Everywhere.Chest Pain, Uncertain Cause (Georgian)documented in this encounter Plan of Treatment Date Type Specialty Care Team Description Appointment Radiology Antonio 9 GABI Ramey [address] [facility] [place] [address] Hospital Surgery Willis, Indigestion 9 Encounter MD Jeanette [address] [facility] [address] [place], [place] 493793 Surgery Surgery Willis, ESOPHAGOGASTRODUODENOSCOPY 9 MD Jeanette [address] [place] [address] [address] [place], [place] [address] Office Visit Neurology Elizabeth Madrid MD [address] [place] [phone] Office Visit Obstetrics & Vanaphan, 9 Gynecology KAMLA Larson [address] Stephen [address] [place] [phone] Office Visit Otolaryngology Elizabeth Sagastume PA [address] [place] [phone] Office Visit Obstetrics & Velez, 9 Gynecology MD Claritza [address] [place] [phone] Log Deckman Visit Endocrinology Lamonte, Regla, [address] Diabetes & [address] Metabolism 26[address] [place] [address] [phone] Health Maintenance Due Date Last Done Comments EYE EXAM 1997 VARICELLA VACCINES (1 of 2 - 13+ 2000 2-dose series) FOOT EXAM 2005 DTaP,Tdap,and Td Vaccines (1 - 2006 Tdap) INFLUENZA VACCINE (#1) 2019 HgA1C 01/30/2020 08/01/2019, 06/13/2019 LDL-C 06/13/2020 06/13/2019 URINE MICROALBUMIN 06/13/2020 06/13/2019 CREATININE (SERUM) 07/30/2020 07/30/2019, 07/15/2019, 06/13/2019, Additional history exists PAP SMEAR 05/01/2022 05/01/2019 PNEUMOCOCCAL 0-64 YEARS COMBINED Completed 06/13/2019 SERIES documented as of this encounter Procedures Procedure Name Priority Date/Time Associated Diagnosis Comments XR CHEST 1 VW STAT 08/02/2019 8:31 AM Chest pain, Results for this CDT unspecified type procedure are in the results section. EKG-12 LEAD STAT 08/02/2019 8:15 AM CDT NOTICE OF PRIVACY Routine 08/02/2019 7:50 AM PRACTICES CDT documented in this encounter Results XR CHEST 1 VW (08/02/2019 8:31 AM CDT) Specimen Narrative Performed At * * * * * * * * ORIGINAL REPORT * * * * * * * * PACS/VR/DOSE EXAM: XR CHEST 1 VW HISTORY: chest pain COMPARISON: None. FINDINGS: The heart and great vessels are normal and the lungs are well expanded and clear. Procedure Note [facility], Radiant Results Inft User - 08/02/2019 8:40 AM CDT * * * * * * * * ORIGINAL REPORT * * * * * * * * EXAM: XR CHEST 1 VW HISTORY: chest pain COMPARISON: None. FINDINGS: The heart and great vessels are normal and the lungs are well expanded and clear. Performing Organization Address City/State/Zipcode Phone Number PACS/VR/DOSE documented in this encounter Visit Diagnoses Diagnosis Chest pain, unspecified type - Primary documented in this encounter Insurance Payer Benefit Plan / Subscriber ID Effective Phone Address Type Group Dates [facility] [id number] 2019-Pres Medicare HEALTHCARE - HEALTHCARE ent Adv HMO MANAGED DUAL COMPLETE MEDICARE HMO [facility] STAR xxxxxxxxx 2019-Pres Medicaid HEALTHCARE PLUS ent COMM PLAN - MANAGED MEDICAID TM MEDICAID OF xxxxxxxxx 2019-Pres [phone] Medicaid [place] ent 900 [id number] [place] [address] documented as of this encounter Advance Directives Name Relationship Healthcare Agent Communication Relationship Michelet Brower Life Partner Primary healthcare agent Miranda Morales Sibling Primary healthcare agent
--- OUTSIDE RECORDS SUMMARY | 2019-08-02 16:03 | XMS REPORT | Summary of Care ---
:1985 Author Organization [facility] Address [address] [place] [address] Care Team Providers Name Role Phone Klarissa Delgado Flores Insurance Hmo Karoline Alvarez Primary Care Provider Reason for Visit Reason Comments LAB Auth/Cert Status Reason Specialty Diagnoses / Referred By Referred To Procedures Contact Contact Clinical Medical Diagnoses Visit for laboratory test Visit for laboratory test [facility] Lab Laboratory Procedures [address] [place] [address] Encounter Details Date Type Department Care Team Description 08/01/2019 Stringing Machine Operator Visit [facility] Claritza Velez MD [address] [place] [phone] Visit for Phlebotomy 1, [facility] Lab laboratory test Lab-[address] [place] [address] Allergies Active Allergy Reactions Severity Noted Date Comments Ibuprofen Rash 04/19/2017 documented as of this encounter (statuses as of 08/01/2019) Medications Medication Sig Dispensed Refills Start End Status Date Date atorvastatin calcium Take by mouth. 0 Active (ATORVASTATIN ORAL) sod jwkdz-ktntva-yofndn Use 1 Bottle in each 1 Each [...] insulin azelastine 137 mcg (0.1 Use 1 [place] in each 30 mL 4 Active %) [...] Overview: Added automatically from request for surgery [id number] Epigastric pain 07/25/2019 Overview: Added automatically from request for surgery [id number] Type 2 diabetes mellitus with complication, without [...] Care Team Description Appointment Radiology Antonio, 9 GABI [address] [address] Hospital Surgery Daja Pedro 9 Encounter MD Jeanette [address] [place] [address] [id number] Surgery Surgery Willis, ESOPHAGOGASTRODUODENOSCOPY 9 MD Jeanette [address] [place] [address] [address] [phone] Office Visit Obstetrics & Vanaphan, 9 Gynecology KAMLA Larson [address] [address] Office Visit Otolaryngology Mitesh, 9 LILIANA Loyola [address] [place] [address] Office Visit Obstetrics & Velez, 9 Gynecology MD Claritza [address] [place] [address] Portfolio Management Marketing Visit Endocrinology Lamonte, Regla, 0 Diabetes & RD Metabolism [address] [place] [address] [phone] Name Type Priority Associated Diagnoses Date/Time TOTAL BETA HCG ASSAY LAB Routine Visit for laboratory test 08/01/2019 1: 11 PM CDT Health Maintenance Due Date Last Done Comments [...] Visit Diagnoses Diagnosis Visit for laboratory test Laboratory examination, unspecified documented in this encounter Insurance Payer Benefit Plan / Subscriber ID Effective Dates Phone Address Type Group [facility] xxxxxxxxx 2019-Present Medicaid COMM PLAN - PLUS MANAGED MEDICAID documented as of this encounter Advance Directives Name Relationship Healthcare Agent Communication Relationship Michelet Brower Life Partner Primary healthcare agent Miranda Morales Sibling Primary healthcare agent
--- OUTSIDE RECORDS SUMMARY | 2019-08-02 16:03 | XMS REPORT | Summary of Care ---
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 0 Active (ATORVASTATIN ORAL) sod Use 1 Bottle in 1 Each 0 Active mvbnc-xjbyyp-rcukpo each nostril 2 019 bottle (NEILMED SINUS [...] of insulin azelastine 137 mcg Use 1 [place] in 30 mL 4 Active (0.1 %) [...] Overview: Added automatically from request for surgery [id number] Epigastric pain 07/25/2019 Overview: Added automatically from request for surgery [id number] Type 2 diabetes mellitus with complication, without [...] mcg (0.1 %) nasal spray Use 1 [place] in each nostril 2 (two) times daily. [...] daily with meals. 10 tablet 0 sod zisfi-wmvbpu-vqglog bottle (NEILMED SINUS RINSE COMPLETE) pkdv Use [...] file Gets together: Not on file Attends jewish service: Not on file Active member of [...] of the visit time. If applicable, the [facility] database was accessed to review any controlled substance prescription claims data. The [employer] prescription claims data in [facility] was reviewed to assess patient compliance with the medication treatment plan. documented in this encounter Plan of Treatment Date Type Specialty Care Team Description Appointment Radiology Elizabeth Velez MD [address] [place] [phone] Appointment Radiology Elizabeth Alvarez FNP [address] [facility] [place] [phone] Hospital Surgery Pedro, Indigestion 9 Encounter MD Jeanetet [address] [facility] [address] [place] [address] [phone] Surgery Surgery Pedro, ESOPHAGOGASTRODUODENOSCOPY 9 MD Jeanette [address] [facility] [address] [place] [address] [phone] Office Visit Obstetrics & [facility] Gynecology KAMLA Larson [address] [facility] [address] [place] [address] [phone] Office Visit Otolaryngology Elizabeth Sagastume PA [address] [place] [phone] Office Visit Obstetrics Elizabeth Kiser Gynecology MD Claritza [address] [place] [phone] Cdl Service Technician Visit Endocrinology Lamonte, Regla, [address] Metabolism [address] [place] [address] [phone] Health Maintenance Due Date Last Done Comments [...] ID Effective Dates Phone Address Type Group [facility] xxxxxxxxx 2019-Present Medicaid COMM PLAN - PLUS MANAGED MEDICAID documented as of this encounter Advance Directives Name Relationship Healthcare Agent Communication Relationship Michelet Brower Life Partner Primary healthcare agent Miranda Morales Sibling Primary healthcare agent
[2019-08-02] MEDS ORDERED: NA CHLORIDE 0.9% 1,000 ML ONE (19:04)
[2019-08-02] MEDS ORDERED: FAMOTIDINE 20 MG/2 ML VIAL IV ONE (19:04)
[2019-08-02 19:12] LABS: Absolute Lymphocytes (CBC) 3.9 K/uL (0.7-4.9); Basophils % 0.3 % (0-1.3); Hematocrit 42.6 % (36.0-45.0); Lymphocytes % 30.1 % (15.3-44.8); MPV 8.5 fL (7.6-11.3); RBC Red Blood Cell Count 4.28 M/uL (3.86-4.86)
[2019-08-02 19:32] LABS: Protime INR 1.18
[2019-08-02 19:33] LABS: ALT/SGPT 34 U/L (12-78); AST/SGOT 17 U/L (15-37); Albumin 3.9 g/dL (3.4-5.0); Alkaline Phosphatase 78 U/L (45-117); BUN Blood Urea Nitrogen 13 mg/dL (7-18); Bicarbonate 27 mmol/L (21-32); Bilirubin Direct 0.1 mg/dL (0-0.2); Bilirubin Total 0.5 mg/dL (0.2-1.0); Glucose Level 93 mg/dL (74-106); Lipase 79 U/L (73-393); Magnesium 2.2 mg/dL (1.8-2.4); NT PRO-BNP 7 pg/mL (<125); Protein, Total 8.1 g/dL (6.4-8.2); Sodium Level 142 mmol/L (136-145); Troponin (Emerg Dept Use Only) < 0.02 ng/mL (0.0-0.045)
[2019-08-02 19:41] LABS: Urine Blood NEGATIVE (NEG); Urine Glucose NEGATIVE (NEG); Urine Protein NEGATIVE (NEG); Urine Specific Gravity 1.015 (1.005-1.030); Urine pH 6.5 (5.0-7.0)
--- NOTE | 2019-08-02 20:12 | RAD REPORT ---
EXAM DESCRIPTION: Patricia Single View08/02/2019 7:57 pm CLINICAL HISTORY: Chest pain COMPARISON: May 2019 FINDINGS: The lungs appear clear of acute infiltrate. The heart is normal size IMPRESSION: No acute abnormalities displayed
--- NOTE | 2019-08-02 20:49 | ER ---
Nurse's Notes [facility] Name: Mckenna Haney Age: 34 yrs Sex: Female : 1985 Arrival Date: 08/02/2019 Time: 15:52 Bed 13 Private MD: Diagnosis: Abdominal tenderness;Type 2 diabetes mellitus Presentation: 08/02 16:05 Presenting complaint: Patient states: Abdominal pain, chest pain and sore throat that aj1 started this morning. Patient states that her chest pain radiates to the left shoulder. Patient also reports dizziness. Reports vomiting x2 today. Denies diarrhea. Denies fever. Denies SOB. Patient also reports cough and congestion. Transition of care: patient was not received from another setting of care. Onset of symptoms was August 02, 2019 at 07:00. Risk Assessment: Do you want to hurt yourself or someone else? Patient reports no desire to harm self or others. Initial Sepsis Screen: Does the patient meet any 2 criteria? No. Patient's initial sepsis screen is negative. Does the patient have a suspected source of infection? Yes: Acute abdominal pain. Care prior to arrival: None. 16:05 Method Of Arrival: Ambulatory aj 16:05 Acuity: LILO 3 aj1 Triage Assessment: 16:08 General: Appears in no apparent distress. uncomfortable, Behavior is calm, cooperative, aj1 appropriate for age. Pain: Complains of pain in chest, abdomen, left aspect of posterior pharynx and right aspect of posterior pharynx Pain currently is 10 out of 10 on a pain scale. EENT: Reports nasal congestion nasal discharge. Neuro: Level of Consciousness is awake, alert, obeys commands. Cardiovascular: Reports chest pain, Patient's skin is warm and dry. Respiratory: Reports cough that is dry, Airway is patent Respiratory effort is even, unlabored, Respiratory pattern is regular, symmetrical, Denies shortness of breath. GI: Reports nausea, vomiting. 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 aj Historical: - Allergies: 16:08 Ibuprofen (Hives); aj1 - Home Meds: 18:15 atorvastatin 10 mg Oral tab [Active]; glipizide 10 mg Oral tab 1 tab once daily tw2 [Active]; Januvia 100 mg Oral tab 1 tab once daily [Active]; montelukast 10 mg Oral tab 1 tab once daily [Active]; naproxen 500 mg Oral TbEC 1 tab 2 times per day [Active]; metformin 1,000 mg Oral tab 1 tab 2 times per day [Active]; lisinopril 2.5 mg Oral tab 1 tab once daily [Active]; - PMHx: 16:08 Diabetes - NIDDM; High Cholesterol; Hypertension; Ovarian cyst; aj1 - PSHx: 18:15 Cholecystectomy; tw2 - Immunization history:: Flu vaccine is not up to date. - Social history:: Smoking status: Patient/guardian denies using tobacco. - Ebola Screening: : Patient denies travel to an Ebola-affected area in the 21 days before illness onset. - Family history:: not pertinent. Screenin:14 Abuse screen: Denies threats or abuse. Nutritional screening: No deficits noted. tw2 Tuberculosis screening: No symptoms or risk factors identified. Fall Risk None identified. Assessment: 19:10 General: Appears in no apparent distress. uncomfortable, Behavior is calm, cooperative, jd3 appropriate for age. Pain: Complains of pain in epigastric area Quality of pain is described as aching, pressure, tender. Neuro: Level of Consciousness is awake, alert, obeys commands, Oriented to person, place, time, situation. Cardiovascular: Capillary refill < 3 seconds Patient's skin is warm and dry. Respiratory: Airway is patent Respiratory effort is even, unlabored, Respiratory pattern is regular, symmetrical, Denies cough, shortness of breath at rest. GI: Abdomen is round non-distended, Bowel sounds present X 4 quads. Abd is soft X 4 quads Abdomen is tender to palpation in epigastric area Patient currently denies diarrhea, nausea, vomiting. : No signs and/or symptoms were reported regarding the genitourinary system. EENT: No signs and/or symptoms were reported regarding the EENT system. Derm: Skin is intact, Skin is dry, Skin is normal, Skin temperature is warm. Musculoskeletal: Circulation, motion, and sensation intact. Range of motion: intact in all extremities. 20:12 Reassessment: Patient appears in no apparent distress at this time. Patient and/or jd3 family updated on plan of care and expected duration. Pain level reassessed. Patient is alert, oriented x 3, equal unlabored respirations, skin warm/dry/pink. Patient states feeling better. Patient states symptoms have improved. 21:05 Reassessment: Patient appears in no apparent distress at this time. Patient and/or jd3 family updated on plan of care and expected duration. Pain level reassessed. Patient is alert, oriented x 3, equal unlabored respirations, skin warm/dry/pink. Patient denies pain at this time. Patient states feeling better. Vital Signs: 16:08 BP 135 / 70; Pulse 74; Resp 18; Temp 97.8; Pulse Ox 97% on R/A; Weight 103.42 kg (R); aj1 Height 5 ft. 4 in. (162.56 cm) (R); Pain 10/10; 21:01 BP 128 / 79; Pulse 86; Resp 17 S; Pulse Ox 100% on R/A; Pain 0/10; jd3 16:08 Body Mass Index 39.14 (103.42 kg, 162.56 cm) aj1 ED Course: 15:52 Patient arrived in ED. as 16:07 Triage completed. aj1 16:08 Arm band placed on. EKG completed in triage. Results shown to MD. aj1 16:11 Patient placed in waiting room, Patient notified of wait time. aj1 18:14 Bed in low position. Call light in reach. tw2 18:15 Wade Retana MD is Attending Physician. tish 19:08 Tawnya Ventura, RN is Primary Nurse. ph 19:08 Primary Nurse role handed off by Tawnya Ventura, RN jd3 19:08 Gaurang Bartlett, RN is Primary Nurse. jd3 19:10 Inserted saline lock: 20 gauge in right antecubital area, using aseptic technique. jd3 [facility] X[facility] Chest (1 view) In Process Unspecified. EDMS 20:09 Wade Leiva PA is PHCP. cp 21:02 No provider procedures requiring assistance completed. IV discontinued, intact, jd3 bleeding controlled, No redness/swelling at site. Pressure dressing applied. Administered Medications: 19:09 Drug: NS 0.9% 1000 ml Route: IV; Rate: 1 bolus; Site: right antecubital; jd3 21:03 Follow up: Response: No adverse reaction; IV Status: Completed infusion; IV Intake: jd3 1000ml 19:09 Drug: Pepcid 20 mg Route: IVP; Site: right antecubital; jd3 20:05 Follow up: Response: No adverse reaction jd3 Intake: 21:03 IV: 1000ml; Total: 1000ml. jd3 Outcome: 20:48 Discharge ordered by . fredrick 21:02 Discharged to home ambulatory. jd3 21:02 Condition: stable 21:02 Discharge instructions given to patient, Instructed on discharge instructions, follow up and referral plans. medication usage, Demonstrated understanding of instructions, follow-up care, medications, Prescriptions given X 3. 21:05 Patient left the ED. jd3 Signatures: Dispatcher [employer] EDMS Luciana Ray RN RN aj1 Wade Retana MD MD cha Martinez, Amelia as Hall, Patricia, RN RN Wade Leiva PA PA cp Wise, Tara, RN RN tw2 Gaurang Bartlett RN RN jd3 Corrections: (The following items were deleted from the chart) 16:10 16:05 Presenting complaint: Patient states: Abdominal pain, chest pain and sore throat aj1 that started this morning. Patient states that her chest pain radiates to the left shoulder. Patient also reports dizziness. Reports vomiting x2 today. Denies diarrhea. Denies fever. Denies SOB. aj1
--- NOTE | 2019-08-02 20:50 | EDPHYS ---
Physician Documentation [facility] Name: Mckenna Haney Age: 34 yrs Sex: Female : 1985 Arrival Date: 08/02/2019 Time: 15:52 Bed 13 Private MD: ED Physician Wade Retana HPI: 08/02 18:53 This 34 yrs old Female presents to ER via Ambulatory with complaints of tish Abdominal Pain. 18:53 The patient presents with abdominal pain in the epigastric area, in the upper abdomen. tish Onset: The symptoms/episode began/occurred 2 day(s) ago. The symptoms do not radiate. Associated signs and symptoms: none. 18:54 Modifying factors: The symptoms are alleviated by nothing, the symptoms are aggravated tish by food. 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 aj1 Historical: - Allergies: 16:08 Ibuprofen (Hives); aj1 - Home Meds: 18:15 atorvastatin 10 mg Oral tab [Active]; glipizide 10 mg Oral tab 1 tab once daily tw2 [Active]; Januvia 100 mg Oral tab 1 tab once daily [Active]; montelukast 10 mg Oral tab 1 tab once daily [Active]; naproxen 500 mg Oral TbEC 1 tab 2 times per day [Active]; metformin 1,000 mg Oral tab 1 tab 2 times per day [Active]; lisinopril 2.5 mg Oral tab 1 tab once daily [Active]; - PMHx: 16:08 Diabetes - NIDDM; High Cholesterol; Hypertension; Ovarian cyst; aj1 - PSHx: 18:15 Cholecystectomy; tw2 - Immunization history:: Flu vaccine is not up to date. - Social history:: Smoking status: Patient/guardian denies using tobacco. - Ebola Screening: : Patient denies travel to an Ebola-affected area in the 21 days before illness onset. - Family history:: not pertinent. ROS: 18:54 Constitutional: Negative for fever, chills, and weight loss, Eyes: Negative for injury, tish pain, redness, and discharge, ENT: Negative for injury, pain, and discharge, Neck: Negative for injury, pain, and swelling, Cardiovascular: Negative for chest pain, palpitations, and edema, Respiratory: Negative for shortness of breath, cough, wheezing, and pleuritic chest pain, Back: Negative for injury and pain, : Negative for injury, bleeding, discharge, and swelling, MS/Extremity: Negative for injury and deformity, Skin: Negative for injury, rash, and discoloration, Neuro: Negative for headache, weakness, numbness, tingling, and seizure, Psych: Negative for depression, anxiety, suicide ideation, homicidal ideation, and hallucinations, Allergy/Immunology: Negative for hives, rash, and allergies, Endocrine: Negative for neck swelling, polydipsia, polyuria, polyphagia, and marked weight changes, Hematologic/Lymphatic: Negative for swollen nodes, abnormal bleeding, and unusual bruising. 18:54 Abdomen/GI: Positive for abdominal pain, of the epigastric area and right upper quadrant. Exam: 18:54 Constitutional: This is a well developed, well nourished patient who is awake, alert, tish and in no acute distress. Head/Face: Normocephalic, atraumatic. Eyes: Pupils equal round and reactive to light, extra-ocular motions intact. Lids and lashes normal. Conjunctiva and sclera are non-icteric and not injected. Cornea within normal limits. Periorbital areas with no swelling, redness, or edema. ENT: Nares patent. No nasal discharge, no septal abnormalities noted. Tympanic membranes are normal and external auditory canals are clear. Oropharynx with no redness, swelling, or masses, exudates, or evidence of obstruction, uvula midline. Mucous membranes moist. Neck: Trachea midline, no thyromegaly or masses palpated, and no cervical lymphadenopathy. Supple, full range of motion without nuchal rigidity, or vertebral point tenderness. No Meningismus. Chest/axilla: Normal chest wall appearance and motion. Nontender with no deformity. No lesions are appreciated. Cardiovascular: Regular rate and rhythm with a normal S1 and S2. No gallops, murmurs, or rubs. Normal PMI, no JVD. No pulse deficits. Respiratory: Lungs have equal breath sounds bilaterally, clear to auscultation and percussion. No rales, rhonchi or wheezes noted. No increased work of breathing, no retractions or nasal flaring. Female : Normal external genitalia. Skin: Warm, dry with normal turgor. Normal color with no rashes, no lesions, and no evidence of cellulitis. MS/ Extremity: Pulses equal, no cyanosis. Neurovascular intact. Full, normal range of motion. Neuro: Awake and alert, GCS 15, oriented to person, place, time, and situation. Cranial nerves II-XII grossly intact. Motor strength 5/5 in all extremities. Sensory grossly intact. Cerebellar exam normal. Normal gait. Psych: Awake, alert, with orientation to person, place and time. Behavior, mood, and affect are within normal limits. 18:54 Abdomen/GI: Inspection: abdomen appears normal, Bowel sounds: normal, Palpation: mild abdominal tenderness, in the right upper quadrant, Liver: no appreciated palpable abnormalities, Hernia: not appreciated. Vital Signs: 16:08 BP 135 / 70; Pulse 74; Resp 18; Temp 97.8; Pulse Ox 97% on R/A; Weight 103.42 kg (R); aj1 Height 5 ft. 4 in. (162.56 cm) (R); Pain 10/10; 21:01 BP 128 / 79; Pulse 86; Resp 17 S; Pulse Ox 100% on R/A; Pain 0/10; jd3 16:08 Body Mass Index 39.14 (103.42 kg, 162.56 cm) aj1 MDM: 18:15 Patient medically screened. [facility] 18:54 Data reviewed: vital signs, nurses notes, lab test result(s), EKG, radiologic studies, [facility] plain films, ultrasound. 08/02 18:53 Order name: Basic Metabolic Panel; Complete Time: 20:39 [facility] 08/02 18:53 Order name: CBC with Diff; Complete Time: 20:39 [facility] 08/02 20:39 Interpretation: Normal except: WBC 12.8. cp 08/02 18:53 Order name: LFT's; Complete Time: 20:39 [facility] 08/02 18:53 Order name: Magnesium; Complete Time: 20:39 [facility] 08/02 18:53 Order name: NT PRO-BNP; Complete Time: 20:39 [facility] 08/02 18:53 Order name: PT-INR; Complete Time: 20:39 [facility] 08/02 18:53 Order name: Troponin (emerg Dept Use Only); Complete Time: 20:39 [facility] 08/02 18:53 Order name: XRAY Chest (1 view); Complete Time: 20:39 [facility] 08/02 18:53 Order name: Lipase; Complete Time: 20:39 [facility] 08/02 19:21 Order name: Urine Dipstick--Ancillary (enter results); Complete Time: 20:39 [facility] 08/02 19:21 Order name: Urine --Ancillary (enter results); Complete Time: 20:39 [facility] 08/02 18:12 Order name: EKG Electrocardiogram; Complete Time: 18:41 EDMS 08/02 18:19 Order name: EKG - Nurse/Tech; Complete Time: 18:41 tw2 08/02 18:53 Order name: EKG; Complete Time: 18:56 [facility] 08/02 18:53 Order name: Cardiac monitoring; Complete Time: 19:10 [facility] 08/02 18:53 Order name: IV Saline Lock; Complete Time: 19:10 [facility] 08/02 18:53 Order name: Labs collected and sent; Complete Time: 19:10 [facility] 08/02 18:53 Order name: O2 Per Protocol; Complete Time: 19:10 [facility] 08/02 18:53 Order name: O2 Sat Monitoring; Complete Time: 19:10 [facility] 08/02 18:53 Order name: Urine Dipstick-Ancillary (obtain specimen); Complete Time: 19:09 [facility] 08/02 18:53 Order name: Urine Test (obtain specimen); Complete Time: 20:11 [facility] Administered Medications: 19:09 Drug: NS 0.9% 1000 ml Route: IV; Rate: 1 bolus; Site: right antecubital; jd3 21:03 Follow up: Response: No adverse reaction; IV Status: Completed infusion; IV Intake: jd3 1000ml 19:09 Drug: Pepcid 20 mg Route: IVP; Site: right antecubital; jd3 20:05 Follow up: Response: No adverse reaction jd3 Disposition: 08/02/19 20:48 Discharged to Home. Impression: Abdominal tenderness, Type 2 diabetes mellitus. - Condition is Stable. - Discharge Instructions: Abdominal Pain, Adult, Type 2 Diabetes Mellitus, Diagnosis, Adult, Abdominal Pain, Adult, Bvbv-os-Zsla, Type 2 Diabetes Mellitus, Diagnosis, Adult, Tlge-zd-Ohpe. - Prescriptions for Bentyl 20 mg Oral Tablet - take 1 tablet by ORAL route every 6 hours As needed; 20 tablet. Pepcid 20 mg Oral Tablet - take 1 tablet by ORAL route every 12 hours for 10 days; 20 tablet. Zofran 4 mg Oral Tablet - take 1 tablet by ORAL route every 12 hours As needed; 20 tablet. - Medication Reconciliation Form, Thank You Letter, Antibiotic Education, Prescription Opioid Use form. - Follow up: Private Physician; When: 2 - 3 days; Reason: Recheck today's complaints, Continuance of care, Re-evaluation by your physician. - Problem is new. - Symptoms have improved. Signatures: Dispatcher [employer] [facility] Luciana Ray RN RN aj1 Wade Retana MD MD cha Page, Corey, PA PA cp Oriana Chong RN RN tw2 Gaurang Bartlett RN RN jd3 Corrections: (The following items were deleted from the chart) 19:25 18:56 Abdomen Limited+US.RAD.BRZ ordered. [facility] 21:05 20:48 08/02/2019 20:48 Discharged to Home. Impression: Abdominal tenderness; Type 2 jd3 diabetes mellitus. Condition is Stable. Discharge Instructions: Abdominal Pain, Adult, Type 2 Diabetes Mellitus, Diagnosis, Adult, Abdominal Pain, Adult, Fwuk-fe-Cbve, Type 2 Diabetes Mellitus, Diagnosis, Adult, Pelx-rb-Ismk. Prescriptions for Bentyl 20 mg Oral Tablet - take 1 tablet by ORAL route every 6 hours As needed; 20 tablet, Pepcid 20 mg Oral Tablet - take 1 tablet by ORAL route every 12 hours for 10 days; 20 tablet, Zofran 4 mg Oral Tablet - take 1 tablet by ORAL route every 12 hours As needed; 20 tablet. and Forms are Medication Reconciliation Form, Thank You Letter, Antibiotic Education, Prescription Opioid Use. Follow up: Private Physician; When: 2 - 3 days; Reason: Recheck today's complaints, Continuance of care, Re-evaluation by your physician. Problem is new. Symptoms have improved. cp
--- NOTE | 2019-08-03 07:47 | EKG ---
Test Date: 2019-08-02 Test Time: 16:12:38 Principal Quality Engineer: TWILA MEASUREMENT RESULTS: Intervals: Rate: 79 MD: 154 QRSD: 76 QT: 378 QTc: 433 [place]: P: 28 MD: 154 QRS: 0 T: 41 INTERPRETIVE STATEMENTS: Normal sinus rhythm Possible Anterior infarct, age undetermined Abnormal ECG Compared to ECG 06/11/2019 12:16:33 No significant changes Electronically Signed On 08-03-19 07:47:26 CDT by Tristan Cleveland
== END 2019-08-02 21:05 | disposition home or self-care (01) ==
LOC: ER 15:51
DX: R10.819 Abdominal tenderness, unspecified site (principal); E11.9 Type 2 diabetes mellitus without complications; I10 Essential (primary) hypertension
CPT/HCPCS: 96361; 93005; 85025; 80048; 36415; 83735; 81025; 85610; 80076; 81003; 84484; 83690; 83880; 71045; 96374; 99284; J7030

== ENCOUNTER 2019-08-23 19:37 | Emergency (ER) | payer OTHER ==
[2019-08-23] MEDS ORDERED: NA CHLORIDE 0.9% 1,000 ML ONE (20:15)
[2019-08-23 20:16] LABS: Urine Blood NEGATIVE (NEG); Urine Glucose NEGATIVE (NEG); Urine Protein NEGATIVE (NEG); Urine Specific Gravity 1.015 (1.005-1.030); Urine pH 6.5 (5.0-7.0)
[2019-08-23 20:35] LABS: Absolute Lymphocytes (CBC) 3.2 K/uL (0.7-4.9); Basophils % 0.3 % (0-1.3); Hematocrit 40.4 % (36.0-45.0); Lymphocytes % 26.1 % (15.3-44.8); MPV 8.9 fL (7.6-11.3); RBC Red Blood Cell Count 4.13 M/uL (3.86-4.86)
[2019-08-23 20:46] LABS: Albumin 4.1 g/dL (3.4-5.0); Bilirubin Direct 0.2 mg/dL (0-0.2); Bilirubin Total 0.6 mg/dL (0.2-1.0); Potassium 3.6 mmol/L (3.5-5.1); Protein, Total 7.8 g/dL (6.4-8.2)
--- NOTE | 2019-08-23 22:49 | EDPHYS ---
Physician Documentation [facility] Name: Mckenna Haney Age: 34 yrs Sex: Female : 1985 Arrival Date: 08/23/2019 Time: 19:40 Bed 19 Private MD: ED Physician Qasim Smith HPI: 08/23 20:08 This 34 yrs old Female presents to ER via Ambulatory with complaints of jmm Abdominal Pain, Headache, Dizziness. 20:08 The patient presents with abdominal pain in the lower abdomen. Onset: The jmm symptoms/episode began/occurred gradually, 4 day(s) ago. The symptoms do not radiate. Associated signs and symptoms: Pertinent positives: headache, Pertinent negatives: nausea and vomiting, diarrhea, vaginal discharge. This is a 34 year old female with a history of fm, hlp, htn, ovarian cyst that presents to the ED with complaints of suprapubic abdominal pain beginning 4 days ago. Denies vaginal discharge, denies vaginal bleeding, denies vomiting, denies diarrhea. Patient also complains of ongoing headache and dizziness which has been chronic. Patient currently takes meclizine to alleviate dizziness. . 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 - Social history:: Smoking status: Patient/guardian denies using tobacco. - Ebola Screening: : Patient denies travel to an Ebola-affected area in the 21 days before illness onset. ROS: 20:08 Constitutional: Negative for fever, chills, and weight loss, Cardiovascular: Negative jmm for chest pain, palpitations, and edema, Respiratory: Negative for shortness of breath, cough, wheezing, and pleuritic chest pain. 20:08 Abdomen/GI: Positive for abdominal pain. 20:08 Neuro: Positive for dizziness, headache. 20:08 All other systems are negative. Exam: 20:08 Constitutional: This is a well developed, well nourished patient who is awake, alert, jmm and in no acute distress. Head/Face: atraumatic. Eyes: EOMI, no conjunctival erythema appreciated ENT: Moist Mucus Membranes Neck: Trachea midline, Supple Chest/axilla: Normal chest wall appearance and motion. Cardiovascular: Regular rate and rhythm. No edema appreciated Respiratory: Normal respirations, no respiratory distress appreciated 20:08 Back: Normal ROM Skin: General appearance color normal MS/ Extremity: Moves all extremities, no obvious deformities appreciated, no edema noted to the lower extremities Neuro: Awake and alert, normal gait Psych: Behavior is normal, Mood is normal, Patient is cooperative and pleasant 20:08 Abdomen/GI: Inspection: abdomen appears normal, Bowel sounds: normal, Palpation: soft, mild abdominal tenderness, in the suprapubic area. Vital Signs: 19:45 BP 135 / 80; Pulse 83; Resp 18; Temp 97.9; Pulse Ox 100% on R/A; Weight 103.42 kg (R); aj1 Height 5 ft. 4 in. (162.56 cm) (R); Pain 10/10; 21:15 BP 122 / 70; Pulse 81; Resp 18; Pulse Ox 100% on R/A; wh 22:30 BP 101 / 63; Pulse 79; Resp 18; Pulse Ox 100% on R/A; wh 19:45 Body Mass Index 39.14 (103.42 kg, 162.56 cm) aj1 MDM: 20:03 Patient medically screened. [facility] 22:46 Data reviewed: vital signs, nurses notes. Counseling: I had a detailed discussion with gina the patient and/or guardian regarding: the historical points, exam findings, and any diagnostic results supporting the discharge/admit diagnosis, lab results, radiology results, the need for outpatient follow up, to return to the emergency department if symptoms worsen or persist or if there are any questions or concerns that arise at home. ED course: Patient is alert and non toxic in appearance in the ED. Patient is advised to follow up with pcp and otherwise given strict return precautions. Patient understood and agrees with the plan of care. . 08/23 20:04 Order name: Basic Metabolic Panel; Complete Time: 20:51 [facility] 08/23 20:04 Order name: CBC with Diff; Complete Time: 20:51 [facility] 08/23 20:04 Order name: Creatinine for Radiology; Complete Time: 21:11 [facility] 08/23 20:04 Order name: Hepatic Function; Complete Time: 20:51 [facility] 08/23 20:04 Order name: Lipase; Complete Time: 20:51 [facility] 08/23 20:13 Order name: Urine Dipstick--Ancillary (enter results); Complete Time: 20:20 [facility] 08/23 20:04 Order name: IV Saline Lock; Complete Time: 20:16 [facility] 08/23 20:04 Order name: Labs collected and sent; Complete Time: 20:16 [facility] 08/23 20:04 Order name: Urine Dipstick-Ancillary (obtain specimen); Complete Time: 20: [facility] 08/23 20:04 Order name: Urine Test (obtain specimen); Complete Time: 20: [facility] 08/23 20:07 Order name: EKG - Nurse/Tech; Complete Time: 20:16 [facility] 08/23 20:13 Order name: Urine --Ancillary (enter results); Complete Time: 20:20 [facility] 08/23 20:39 Order name: CT Abd/Pelvis - IV Contrast Only [facility] Administered Medications: 20:16 Drug: NS 0.9% 1000 ml Route: IV; Rate: 1 bolus; Site: right antecubital; 21:32 Follow up: Response: No adverse reaction; IV Status: Completed infusion 23:01 Follow up: Response: No adverse reaction; IV Status: Completed infusion Disposition: 08/23/19 22:47 Discharged to Home. Impression: Abdominal and pelvic pain. - Condition is Stable. - Discharge Instructions: Pelvic Pain, Female. - Prescriptions for Ultracet 37.5- 325 mg Oral Tablet - take 1 tablet by ORAL route every 6 hours - for up to 5 days; do not exceed 8 tablets per day.; 30 tablet. - Medication Reconciliation Form, Thank You Letter, Antibiotic Education, Prescription Opioid Use form. - Follow up: Private Physician; When: 2 - 3 days; Reason: Recheck today's complaints, Continuance of care, Re-evaluation by your physician. Addendum: 08/27/2019 14:48 Co-signature as Attending Physician, Qasim Smith MD. g s Signatures: Dispatcher [employer] Luciana Delarosa, RN RN aj1 Magdi Falcon PA PA jmm Habalo, Winsy Qasim Smith MD MD gs Corrections: (The following items were deleted from the chart) 08/23 23:04 22:47 08/23/2019 22:47 Discharged to Home. Impression: Abdominal and pelvic pain. Condition is Stable. Forms are Medication Reconciliation Form, Thank You Letter, Antibiotic Education, Prescription Opioid Use. Follow up: Private Physician; When: 2 - 3 days; Reason: Recheck today's complaints, Continuance of care, Re-evaluation by your physician. gina
--- NOTE | 2019-08-23 22:49 | ER ---
Nurse's Notes [facility] Name: Mckenna Haney Age: 34 yrs Sex: Female : 1985 Arrival Date: 08/23/2019 Time: 19:40 Bed 19 Private MD: Diagnosis: Abdominal and pelvic pain Presentation: 08/23 19:43 Presenting complaint: Patient states: "I'm having too much cramping and I'm feeling aj1 lots of pressure and headaches and dizziness" Reports vomiting. Denies fever, diarrhea. Reports suprapubic pain. Denies vaginal discharge. Denies dysuria, reports urinary frequency. Transition of care: patient was not received from another setting of care. Onset of symptoms was August 23, 2019. Risk Assessment: Do you want to hurt yourself or someone else? Patient reports no desire to harm self or others. Initial Sepsis Screen: Does the patient meet any 2 criteria? No. Patient's initial sepsis screen is negative. Does the patient have a suspected source of infection? Yes: Acute abdominal pain. Care prior to arrival: None. 19:43 Method Of Arrival: Ambulatory [facility] 19:43 Acuity: LILO 4 aj1 Triage Assessment: 19:45 General: Appears in no apparent distress. comfortable, Behavior is calm, cooperative, aj1 appropriate for age. Pain: Complains of pain in suprapubic area Pain currently is 10 out of 10 on a pain scale. Neuro: Level of Consciousness is awake, alert, obeys commands, Oriented to person, place, time, situation. Cardiovascular: Patient's skin is warm and dry. Respiratory: Airway is patent Respiratory effort is even, unlabored, Respiratory pattern is regular, symmetrical. GI: Reports vomiting. : Reports urinary frequency, Denies burning with urination, discharge. 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 - Social history:: Smoking status: Patient/guardian denies using tobacco. - Ebola Screening: : Patient denies travel to an Ebola-affected area in the 21 days before illness onset. Screenin:59 Abuse screen: Denies threats or abuse. Denies injuries from another. Nutritional wh screening: No deficits noted. Tuberculosis screening: No symptoms or risk factors identified. Fall Risk None identified. Assessment: 20:00 General: Appears in no apparent distress. Pain: Complains of pain in suprapubic area wh Pain does not radiate. Pain currently is 10 out of 10 on a pain scale. Quality of pain is described as aching. Neuro: Level of Consciousness is awake, alert, obeys commands. Cardiovascular: Heart tones S1 S2. Respiratory: Airway is patent Respiratory effort is even, unlabored, Respiratory pattern is regular, symmetrical. GI: Abdomen is round non-distended, Bowel sounds present X 4 quads. Abd is soft and non tender X 4 quads. : No signs and/or symptoms were reported regarding the genitourinary system. EENT: No signs and/or symptoms were reported regarding the EENT system. Derm: Skin is intact, is healthy with good turgor, Skin is pink, warm \\T\\ dry. normal. Musculoskeletal: Circulation, motion, and sensation intact. 21:15 Reassessment: Patient appears in no apparent distress at this time. No changes from previously documented assessment. Patient and/or family updated on plan of care and expected duration. Pain level reassessed. Patient is alert, oriented x 3, equal unlabored respirations, skin warm/dry/pink. 22:40 Reassessment: Patient appears in no apparent distress at this time. No changes from previously documented assessment. Patient and/or family updated on plan of care and expected duration. Pain level reassessed. Patient is alert, oriented x 3, equal unlabored respirations, skin warm/dry/pink. Patient denies pain at this time. Vital Signs: 19:45 BP 135 / 80; Pulse 83; Resp 18; Temp 97.9; Pulse Ox 100% on R/A; Weight 103.42 kg (R); 1 Height 5 ft. 4 in. (162.56 cm) (R); Pain 10/10; 21:15 BP 122 / 70; Pulse 81; Resp 18; Pulse Ox 100% on R/A; wh 22:30 BP 101 / 63; Pulse 79; Resp 18; Pulse Ox 100% on R/A; wh 19:45 Body Mass Index 39.14 (103.42 kg, 162.56 cm) [facility] ED Course: 19:40 Patient arrived in ED. cf2 19:44 Triage completed. [facility] 19:45 Arm band placed on Patient placed in an exam room. [facility] 19:50 Magdi Falcon PA is PHCP. [facility] 19:50 Qasim Smith MD is Attending Physician. [facility] 19:55 Dane Cabezas is Primary Nurse. 19:59 Patient has correct armband on for positive identification. Placed in gown. Bed in low wh position. Call light in reach. Side rails up X 1. Pulse ox on. NIBP on. 20:10 Inserted saline lock: 22 gauge in right antecubital area, using aseptic technique. Blood collected. 20:15 Urine collected: clean catch specimen, clear, Amount Voided: 200mL. jd2 20:24 EKG done, by ED staff, reviewed by Qasim Smith MD. d2 20:44 Radiology exam delayed due to lab results not completed at this time. (BUN/Creatinine). 2 21:25 CT Abd/Pelvis - IV Contrast Only In Process Unspecified. EDMS 23:03 No provider procedures requiring assistance completed. IV discontinued, intact, bleeding controlled, No redness/swelling at site. Administered Medications: 20:16 Drug: NS 0.9% 1000 ml Route: IV; Rate: 1 bolus; Site: right antecubital; 21:32 Follow up: Response: No adverse reaction; IV Status: Completed infusion 23:01 Follow up: Response: No adverse reaction; IV Status: Completed infusion Outcome: 22:47 Discharge ordered by . [facility] 23:03 Discharged to home ambulatory. 23:03 Condition: good 23:03 Discharge instructions given to patient, Instructed on discharge instructions, follow up and referral plans. no drinking with medication, no driving heavy equipment, medication usage, POC Pelvic Pain Demonstrated understanding of instructions, follow-up care, medications, POC Prescriptions given X 1. 23:04 Patient left the ED. Signatures: Dispatcher [employer] EDLuciana Jones, RN RN aj1 Magdi Falcon PA PA jmm Donley, Jonika jd2 Kaylin Aranda 2 Dane Cabezas Celesta cf2
[2019-08-23 23:17] VITALS: TEMP 97.9; O2SAT 100
[2019-08-23 23:20] VITALS: BP 101/63
--- NOTE | 2019-08-24 15:36 | EKG ---
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
--- NOTE | 2019-08-27 17:38 | RAD REPORT ---
EXAM DESCRIPTION: CT - Abdomen Pelvis W Contrast - 08/24/2019 12:06 am CLINICAL HISTORY: 34 years Female lower abdominal pain COMPARISON: April 17, 2019. TECHNIQUE: Images were obtained in axial, sagittal, and coronal planes. Intravenous contrast was adm inistered. This exam was performed according to our departmental dose-optimization program which includes use of Automated Exposure Control, adjustment of the mA and/or kV according to patient size and/or use of i terative reconstruction technique. FINDINGS: Appendix within normal limits. No bowel obstruction, perforation, or inflammation. No obstructing renal calcifications bilaterally. No hydronephrosis bilaterally. Unremarkable bladder. Decreased attenuation involving liver likely fatty change. Unremarkable spleen, pancreas, and adrenal glands bilaterally. Prior cholecystectomy. No dilatation abdominal aorta. Unremarkable portal vein. No adenopathy or abnormal fluid collections seen. No acute osseous abnormality. No abnormality lower lungs bilaterally. IMPRESSION: No acute intra-abdominal abnormality. Findings unchanged when correlated with the prior study. Electronically signed by: Nicole Spencer MD 08/23/2019 9:47 PM CDT Due to temporary technical issues with the PACS/Fluency reporting system, reports are being signed by the in house radiologist as a courtesy to ensure prompt reporting. The interpreting radiologist is f ully responsible for the content of the report.
== END 2019-08-23 23:04 | disposition home or self-care (01) ==
LOC: ER 19:37
DX: R10.2 Pelvic and perineal pain (principal); I10 Essential (primary) hypertension; E78.00 Pure hypercholesterolemia, unspecified; E11.9 Type 2 diabetes mellitus without complications
CPT/HCPCS: 93005; 85025; 80048; 36415; 81025; 80076; 81003; 83690; 74177; 96360; 99284; Q9967; J7030

== ENCOUNTER 2019-09-07 18:41 | Emergency (ER) | payer OTHER ==
--- NOTE | 2019-09-07 19:23 | RAD REPORT ---
EXAM DESCRIPTION: RAD - Chest Single View - 09/07/2019 7:17 pm CLINICAL HISTORY: PALPITATIONS Chest pain. COMPARISON: Chest Single View dated 08/02/2019; Chest Single View dated 06/11/2019 FINDINGS: Portable technique limits examination quality. The lungs are grossly clear. The heart is upper limit of normal in size. No displaced fractures. IMPRESSION: No acute intrathoracic process suspected.
[2019-09-07 19:48] LABS: Barbiturates NEGATIVE (NEGATIVE); Benzodiazepines NEGATIVE (NEGATIVE); Cocaine NEGATIVE (NEGATIVE); METHAMPHETAM NEGATIVE (NEGATIVE); Methadone NEGATIVE (NEGATIVE); Opiates NEGATIVE (NEGATIVE); Phencyclidine NEGATIVE (NEGATIVE); THC Cannibis NEGATIVE (NEGATIVE)
[2019-09-07 20:13] LABS: Urine Blood NEGATIVE (NEG); Urine Glucose 2+ (NEG); Urine Protein NEGATIVE (NEG); Urine Specific Gravity 1.015 (1.005-1.030)
[2019-09-07 20:23] LABS: Absolute Lymphocytes (CBC) 3.1 K/uL (0.7-4.9); Basophils % 0.3 % (0-1.3); Hematocrit 38.8 % (36.0-45.0); MPV 8.7 fL (7.6-11.3); RBC Red Blood Cell Count 3.96 M/uL (3.86-4.86)
[2019-09-07 20:24] LABS: Protime INR 1.15
[2019-09-07] MEDS ORDERED: ACETAMINOPHEN 500 MG TAB ONE (20:34)
[2019-09-07] MEDS ORDERED: NA CHLORIDE 0.9% 1,000 ML ONE (20:34)
[2019-09-07 20:51] LABS: ALT/SGPT 26 U/L (12-78); AST/SGOT 11 U/L (15-37); Albumin 3.8 g/dL (3.4-5.0); Alkaline Phosphatase 87 U/L (45-117); BUN Blood Urea Nitrogen 11 mg/dL (7-18); Bicarbonate 26 mmol/L (21-32); Bilirubin Direct 0.2 mg/dL (0-0.2); Bilirubin Total 0.4 mg/dL (0.2-1.0); Glucose Level 149 mg/dL (74-106); Magnesium 2.1 mg/dL (1.8-2.4); NT PRO-BNP 29 pg/mL (<125); Potassium 3.5 mmol/L (3.5-5.1); Protein, Total 7.6 g/dL (6.4-8.2); Sodium Level 141 mmol/L (136-145); Troponin (Emerg Dept Use Only) < 0.02 ng/mL (0.0-0.045)
--- NOTE | 2019-09-07 21:10 | EDPHYS ---
Physician Documentation [facility] Name: Mckenna Haney Age: 34 yrs Sex: Female : 1985 Arrival Date: 09/07/2019 Time: 18:44 Bed 25 Private MD: ED Physician David Gabriel HPI: 09/07 19:07 This 34 yrs old Female presents to ER via Other with complaints of Headache, pm1 Dizziness, Palpitations. 19:07 The patient presents with a history of heart racing. Context: The symptoms occur with pm1 activity. Onset: The symptoms/episode began/occurred 2 day(s) ago. Duration: The patient or guardian reports multiple episodes, that have now resolved. Modifying factors: The symptoms are aggravated by light activity, The symptoms are alleviated by rest. Associated signs and symptoms: Pertinent positives: headache and shortness of breath with episodes of palpitations. Severity of symptoms: in the emergency department the symptoms have resolved. The patient has not experienced similar symptoms in the past. The patient has been recently seen by a physician: the patient's primary care provider, with similar presenting complaints, has Holter monitoring planned next month. Historical: - Allergies: 18:47 Ibuprofen (Hives); la1 - PMHx: 18:47 Diabetes - NIDDM; High Cholesterol; Hypertension; Ovarian cyst; la1 - Immunization history:: Adult Immunizations up to date. - Social history:: Smoking status: Patient/guardian denies using tobacco. - Ebola Screening: : No symptoms or risks identified at this time. ROS: 19:07 Constitutional: Negative for fever, chills, and weight loss, Eyes: Negative for injury, pm1 pain, redness, and discharge, ENT: Negative for injury, pain, and discharge, Neck: Negative for injury, pain, and swelling, Respiratory: Negative for shortness of breath, cough, wheezing, and pleuritic chest pain, Abdomen/GI: Negative for abdominal pain, nausea, vomiting, diarrhea, and constipation, Back: Negative for injury and pain, MS/Extremity: Negative for injury and deformity, Skin: Negative for injury, rash, and discoloration. 19:07 Cardiovascular: Positive for palpitations, Negative for chest pain. 19:07 Neuro: Positive for dizziness, headache, with sensation of palpitations. Exam: 19:07 Constitutional: This is a well developed, well nourished patient who is awake, alert, pm1 and in no acute distress. Head/Face: Normocephalic, atraumatic. Eyes: Pupils equal round and reactive to light, extra-ocular motions intact. Lids and lashes normal. Conjunctiva and sclera are non-icteric and not injected. Cornea within normal limits. Periorbital areas with no swelling, redness, or edema. ENT: Nares patent. No nasal discharge, no septal abnormalities noted. Tympanic membranes are normal and external auditory canals are clear. Oropharynx with no redness, swelling, or masses, exudates, or evidence of obstruction, uvula midline. Mucous membranes moist. Neck: Trachea midline, no thyromegaly or masses palpated, and no cervical lymphadenopathy. Supple, full range of motion without nuchal rigidity, or vertebral point tenderness. No Meningismus. Chest/axilla: Normal chest wall appearance and motion. Nontender with no deformity. No lesions are appreciated. Cardiovascular: Regular rate and rhythm with a normal S1 and S2. No gallops, murmurs, or rubs. Normal PMI, no JVD. No pulse deficits. Respiratory: Lungs have equal breath sounds bilaterally, clear to auscultation and percussion. No rales, rhonchi or wheezes noted. No increased work of breathing, no retractions or nasal flaring. Abdomen/GI: Soft, non-tender, with normal bowel sounds. No distension or tympany. No guarding or rebound. No evidence of tenderness throughout. Back: No spinal tenderness. No costovertebral tenderness. Full range of motion. Skin: Warm, dry with normal turgor. Normal color with no rashes, no lesions, and no evidence of cellulitis. MS/ Extremity: Pulses equal, no cyanosis. Neurovascular intact. Full, normal range of motion. 19:07 Neuro: Orientation: is normal, Motor: is normal, moves all fours, Sensation: is normal, no obvious gross deficits. Vital Signs: 18:47 BP 133 / 89; Pulse 89; Resp 18; Temp 97.5; Pulse Ox 100% on R/A; Weight 102.06 kg; la1 Height 5 ft. 4 in. (162.56 cm); 19:45 BP 118 / 89; Pulse 80; Resp 18; Pulse Ox 99% on R/A; aj1 20:45 BP 114 / 62; Pulse 80; Resp 18; Pulse Ox 100% on R/A; aj1 18:47 Body Mass Index 38.62 (102.06 kg, 162.56 cm) la1 MDM: 19:02 Patient medically screened. pm1 21:06 Data reviewed: vital signs. Data interpreted: Pulse oximetry: on room air is 100 %. pm1 Interpretation: normal. Counseling: I had a detailed discussion with the patient and/or guardian regarding: the historical points, exam findings, and any diagnostic results supporting the discharge/admit diagnosis, lab results, radiology results, the need for outpatient follow up, to return to the emergency department if symptoms worsen or persist or if there are any questions or concerns that arise at home. 21:06 ED course: Patient has had this issue addressed with her PCP Dr. Delgado and has pm1 Holter monitoring planned in September. Patient reported palpitations present during ECG. No arrythmia noted on ECG. 09/07 19:07 Order name: Basic Metabolic Panel; Complete Time: 21:06 pm1 09/07 19:07 Order name: CBC with Diff; Complete Time: 20:28 pm1 09/07 19:07 Order name: LFT's; Complete Time: 21:06 pm1 09/07 19:07 Order name: Magnesium; Complete Time: 21:06 pm1 09/07 19:07 Order name: NT PRO-BNP; Complete Time: 21:06 pm1 09/07 19:07 Order name: PT-INR; Complete Time: 20:28 pm1 09/07 19:07 Order name: Troponin (emerg Dept Use Only); Complete Time: 21:06 pm1 09/07 19:07 Order name: XRAY Chest (1 view); Complete Time: 19:34 pm1 09/07 19:07 Order name: TSH; Complete Time: 21:06 pm1 09/07 19:33 Order name: UDS; Complete Time: 19:49 pm1 09/07 19:35 Order name: Urine Dipstick--Ancillary (enter results); Complete Time: 20:17 ar5 09/07 19:35 Order name: Urine --Ancillary (enter results); Complete Time: 20:17 ar5 09/07 19:07 Order name: EKG; Complete Time: 19:08 pm1 09/07 19:07 Order name: Cardiac monitoring; Complete Time: 19:44 pm1 09/07 19:07 Order name: EKG - Nurse/Tech; Complete Time: 19:44 pm1 09/07 19:07 Order name: IV Saline Lock; Complete Time: 20:32 pm1 09/07 19:07 Order name: Labs collected and sent; Complete Time: 20:32 pm1 09/07 19:07 Order name: O2 Per Protocol; Complete Time: 19:44 pm1 09/07 19:07 Order name: O2 Sat Monitoring; Complete Time: 19:44 pm1 09/07 19:07 Order name: Urine Dipstick-Ancillary (obtain specimen); Complete Time: 19:44 pm1 09/07 19:07 Order name: Urine Test (obtain specimen); Complete Time: 19:44 pm1 Administered Medications: 20:52 Drug: NS 0.9% 1000 ml Route: IV; Rate: 1000 ml; Site: right antecubital; aj1 21:54 Follow up: IV Status: Completed infusion; IV Intake: 1000ml aj 20:53 Drug: Tylenol 1000 mg Route: PO; aj1 21:54 Follow up: Response: No adverse reaction aj Disposition: 09/08 07:18 Co-signature as Attending Physician, David Gabriel MD I agree with the assessment and kdr plan of care. Disposition: 09/07/19 21:09 Discharged to Home. Impression: Palpitations. - Condition is Stable. - Discharge Instructions: General Headache Without Cause, Palpitations. - Medication Reconciliation Form, Thank You Letter, Antibiotic Education, Prescription Opioid Use form. - Follow up: Emergency Department; When: As needed; Reason: Worsening of condition. Follow up: Private Physician; When: 2 - 3 days; Reason: Recheck today's complaints, Continuance of care, Re-evaluation by your physician. - Problem is new. - Symptoms have improved. Signatures: Dispatcher [employer] EDMS Luciana Ray RN RN aj1 Rittger, Kevin, MD MD kdr Attema, Lee, RN RN la1 Irvin Lazar, SPOOLING OPERATOR SPOOLING OPERATOR pm1 Corrections: (The following items were deleted from the chart) 09/07 21:57 21:09 09/07/2019 21:09 Discharged to Home. Impression: Palpitations. Condition is aj1 Stable. Forms are Medication Reconciliation Form, Thank You Letter, Antibiotic Education, Prescription Opioid Use. Follow up: Emergency Department; When: As needed; Reason: Worsening of condition. Follow up: Private Physician; When: 2 - 3 days; Reason: Recheck today's complaints, Continuance of care, Re-evaluation by your physician. Problem is new. Symptoms have improved. pm1
--- NOTE | 2019-09-07 21:10 | ER ---
Nurse's Notes [facility] Name: Mckenna Haney Age: 34 yrs Sex: Female : 1985 Arrival Date: 09/07/2019 Time: 18:44 Bed 25 Private MD: Diagnosis: Palpitations Presentation: 09/07 18:46 Presenting complaint: Patient states: SOB, nausea, AGUILERA, dizziness for two days. la1 Transition of care: patient was not received from another setting of care. Onset of symptoms was September 07, 2019. Risk Assessment: Do you want to hurt yourself or someone else? Patient reports no desire to harm self or others. Initial Sepsis Screen: Does the patient meet any 2 criteria? No. Patient's initial sepsis screen is negative. Does the patient have a suspected source of infection? No. Patient's initial sepsis screen is negative. Care prior to arrival: None. 18:46 Method Of Arrival: Other la1 18:46 Acuity: LILO 3 la1 Triage Assessment: 21:56 Headache History: Denies prior headaches. General: Appears in no apparent distress. aj1 General: Behavior is calm, cooperative, appropriate for age. Pain: Also complains of. Pain: Pain currently is 0 out of 10 on a pain scale. Pain began suddenly. Historical: - Allergies: 18:47 Ibuprofen (Hives); la1 - PMHx: 18:47 Diabetes - NIDDM; High Cholesterol; Hypertension; Ovarian cyst; la1 - Immunization history:: Adult Immunizations up to date. - Social history:: Smoking status: Patient/guardian denies using tobacco. - Ebola Screening: : No symptoms or risks identified at this time. Screenin:00 Abuse screen: Denies threats or abuse. Denies injuries from another. Nutritional aj1 screening: No deficits noted. Tuberculosis screening: No symptoms or risk factors identified. 21:56 Fall Risk None identified. aj1 Assessment: 19:00 General: Appears in no apparent distress. comfortable, Behavior is calm, cooperative, aj1 appropriate for age. Pain: Denies pain. Neuro: Level of Consciousness is awake, alert, obeys commands, Oriented to person, place, time, situation, Speech is normal, Facial symmetry appears normal, Reports dizziness. Neuro: Reports headache. Cardiovascular: Reports palpitations, Heart tones S1 S2 present Patient's skin is warm and dry. Rhythm is sinus rhythm. Respiratory: Airway is patent Respiratory effort is even, unlabored, Respiratory pattern is regular, symmetrical. Respiratory: Breath sounds are clear bilaterally. GI: No signs and/or symptoms were reported involving the gastrointestinal system. : No signs and/or symptoms were reported regarding the genitourinary system. EENT: No signs and/or symptoms were reported regarding the EENT system. Derm: No signs and/or symptoms reported regarding the dermatologic system. Skin is pink, warm \T\ dry. normal. Musculoskeletal: No signs and/or symptoms reported regarding the musculoskeletal system. Circulation, motion, and sensation intact. 20:00 Reassessment: Patient appears in no apparent distress at this time. No changes from [facility] previously documented assessment. Patient and/or family updated on plan of care and expected duration. Pain level reassessed. Patient is alert, oriented x 3, equal unlabored respirations, skin warm/dry/pink. 21:00 Reassessment: Patient appears in no apparent distress at this time. No changes from aj1 previously documented assessment. Patient and/or family updated on plan of care and expected duration. Pain level reassessed. Patient is alert, oriented x 3, equal unlabored respirations, skin warm/dry/pink. Vital Signs: 18:47 BP 133 / 89; Pulse 89; Resp 18; Temp 97.5; Pulse Ox 100% on R/A; Weight 102.06 kg; la1 Height 5 ft. 4 in. (162.56 cm); 19:45 BP 118 / 89; Pulse 80; Resp 18; Pulse Ox 99% on R/A; aj1 20:45 BP 114 / 62; Pulse 80; Resp 18; Pulse Ox 100% on R/A; aj1 18:47 Body Mass Index 38.62 (102.06 kg, 162.56 cm) la1 ED Course: 18:44 Patient arrived in ED. mr 18:46 Triage completed. la1 18:47 Arm band placed on right wrist. la1 18:54 Irvin Lazar NP is PHCP. pm1 18:54 David Gabriel MD is Attending Physician. pm1 18:57 Luciana Ray, MARIN is Primary Nurse. aj1 19:00 Patient has correct armband on for positive identification. Bed in low position. Call aj1 light in reach. Side rails up X 1. school lunch monitor on. Pulse ox on. NIBP on. 19:00 No provider procedures requiring assistance completed. aj1 19:17 X-ray completed. Portable x-ray completed in exam room. Patient tolerated procedure [facility] well. 19:18 XRAY Chest (1 view) In Process Unspecified. EDMS 20:15 Inserted saline lock: 20 gauge in right antecubital area, using aseptic technique. aj1 Blood collected. 21:55 IV discontinued, intact, bleeding controlled, No redness/swelling at site. Pressure aj1 dressing applied. Administered Medications: 20:52 Drug: NS 0.9% 1000 ml Route: IV; Rate: 1000 ml; Site: right antecubital; aj1 21:54 Follow up: IV Status: Completed infusion; IV Intake: 1000ml aj1 20:53 Drug: Tylenol 1000 mg Route: PO; aj1 21:54 Follow up: Response: No adverse reaction aj1 Intake: 21:54 IV: 1000ml; Total: 1000ml. aj1 Outcome: 21:09 Discharge ordered by . pm1 21:56 Discharged to home ambulatory. aj1 21:56 Condition: good 21:56 Discharge instructions given to patient, Instructed on discharge instructions, follow up and referral plans. Demonstrated understanding of instructions, follow-up care. 21:57 Patient left the ED. aj1 Signatures: Dispatcher [employer] Luciana Delarosa, RN RN 1 Graciela Ramirez mr [facility] Jamin Mejia RN RN va1 Irvin Lazar, RESEARCH STAFF MEMBER RESEARCH STAFF MEMBER pm1
[2019-09-07 22:10] VITALS: TEMP 97.5
[2019-09-07 22:11] VITALS: BP 114/62; O2SAT 100
--- NOTE | 2019-09-08 13:04 | EKG ---
Test Date: 2019-09-07 Test Time: 19:36:49 Air Reduction Equipment Operator: HARIKA MEASUREMENT RESULTS: Intervals: Rate: 73 OK: 158 QRSD: 76 QT: 380 QTc: 418 [place]: P: 19 OK: 158 QRS: 2 T: 12 INTERPRETIVE STATEMENTS: Normal sinus rhythm Cannot rule out Anterior infarct, age undetermined Abnormal ECG Compared to ECG 08/23/2019 20:19:59 No significant changes Electronically Signed On 09-08-19 13:03:30 CDT by Danny Rand
== END 2019-09-07 21:57 | disposition home or self-care (01) ==
LOC: ER 18:41
DX: R00.2 Palpitations (principal); I10 Essential (primary) hypertension; Z88.6 Allergy status to analgesic agent
CPT/HCPCS: 93005; 85025; 80048; 36415; 83735; 81025; 85610; 80076; 80307 ×8; 84443; 81003; 84484; 83880; 71045; 96360; 99284; J7030

== ENCOUNTER 2019-09-19 11:45 | Emergency (ER) | payer OTHER ==
[2019-09-19] MEDS ORDERED: MECLIZINE HCL 12.5 MG TAB ONE (12:27)
[2019-09-19 12:57] LABS: Urine Blood NEGATIVE (NEG); Urine Glucose NEGATIVE (NEG); Urine Protein NEGATIVE (NEG)
--- NOTE | 2019-09-19 13:37 | ER ---
Nurse's Notes [facility] Name: Mckenna Haney Age: 34 yrs Sex: Female : 1985 Arrival Date: 09/19/2019 Time: 11:48 Bed 14 Private MD: Out, [facility] Diagnosis: Dizziness and giddiness;Dysuria Presentation: 09/19 11:56 Presenting complaint: Lower abdominal cramping,nausea, urinary urgency and frequency, hb and burning with urination x 2 days. Vomit x 2 yesterday. Tolerating fluids. Transition of care: patient was not received from another setting of care. Onset of symptoms was September 18, 2019. Risk Assessment: Do you want to hurt yourself or someone else? Patient reports no desire to harm self or others. Initial Sepsis Screen: Does the patient meet any 2 criteria? No. Patient's initial sepsis screen is negative. Does the patient have a suspected source of infection? No. Patient's initial sepsis screen is negative. Care prior to arrival: None. 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 - Social history:: Smoking status: Patient/guardian denies using tobacco. - Ebola Screening: : No symptoms or risks identified at this time. Screenin:02 Abuse screen: Denies threats or abuse. Nutritional screening: No deficits noted. rb1 Tuberculosis screening: No symptoms or risk factors identified. Fall Risk None identified. Assessment: 12:02 General: Appears in no apparent distress. comfortable, Behavior is calm, cooperative, rb1 Denies fever. Pain: Complains of pain in headache Pain currently is 10 out of 10 on a pain scale. Pain began 1 day ago. Neuro: Level of Consciousness is awake, alert, obeys commands, Oriented to person, place, time, situation. Neuro: Reports dizziness, headache frontal area, since x 1 day. Cardiovascular: Capillary refill < 3 seconds is brisk in bilateral fingers. Respiratory: Airway is patent Respiratory effort is even, unlabored, Respiratory pattern is regular, symmetrical. GI: Bowel sounds present X 4 quads. Abd is soft Reports cramping, lower abdomen. : No signs and/or symptoms were reported regarding the genitourinary system. Derm: Skin is pink, warm \T\ dry. 12:02 General: Pt. reports that the room feels like it is spinning. Symptoms get worse when rb1 she is walking or moves her head.. 13:00 Reassessment: Patient appears in no apparent distress at this time. No changes from rb1 previously documented assessment. 13:38 Reassessment: Patient appears in no apparent distress at this time. Patient and/or rb1 family updated on plan of care and expected duration. Pain level reassessed. Patient is alert, oriented x 3, equal unlabored respirations, skin warm/dry/pink. Vital Signs: 11:58 BP 133 / 88; Pulse 78; Resp 16; Temp 97.8; Pulse Ox 100% on R/A; Weight 103.42 kg; hb Height 5 ft. 4 in. (162.56 cm); Pain 10/10; 13:00 BP 126 / 98; Pulse 80; Resp 17; Temp 98.3(O); Pulse Ox 100% on R/A; Pain 7/10; rb1 11:58 Body Mass Index 39.14 (103.42 kg, 162.56 cm) ED Course: 11:48 Patient arrived in ED. ag5 11:48 Out, of Town is Private Physician. ag5 11:57 Triage completed. hb 11:58 Arm band placed on. EKG completed in triage. Results shown to MD. EKG completed in triage. Results shown to MD. 12:00 Magdi Falcon PA is PHCP. [facility] 12:00 David Gabriel MD is Attending Physician. [facility] 12:02 Coco Martínez, RN is Primary Nurse. [facility] 12:02 Patient has correct armband on for positive identification. Bed in low position. Call [facility] light in reach. Side rails up X 1. Pulse ox on. NIBP on. Warm blanket given. 13:35 Treasure Casey MD is Referral Physician. [facility] 13:45 No provider procedures requiring assistance completed. [facility] 13:45 Patient did not have IV access during this emergency room visit. [facility] Administered Medications: 12:25 Drug: Meclizine 50 mg Route: PO; [facility] 13:00 Follow up: Response: No adverse reaction; Marked relief of symptoms rb1 Outcome: 13:36 Discharge ordered by . [facility] 13:45 Patient left the ED. [facility] 13:45 Discharged to home ambulatory. [facility] 13:45 Condition: stable 13:45 Discharge instructions given to patient, Instructed on discharge instructions, follow up and referral plans. medication usage, Demonstrated understanding of instructions, follow-up care, medications, Prescriptions given X 1. Signatures: Magdi Falcon PA PA [facility] Coco Martínez, RN RN [facility] Domitila Banks, MARIN RN Ke Lewis ag5
--- NOTE | 2019-09-19 13:37 | EDPHYS ---
Physician Documentation [facility] Name: Mckenna Haney Age: 34 yrs Sex: Female : 1985 Arrival Date: 09/19/2019 Time: 11:48 Bed 14 Private MD: Out, [facility] ED Physician David Gabriel HPI: 09/19 12:22 This 34 yrs old Female presents to ER via Ambulatory with complaints of jmm Abdominal Cramping, Dizziness. 12:22 The patient presents with dizziness. Onset: The symptoms/episode began/occurred jmm acutely, 1 day(s) ago. Modifying factors: The symptoms are alleviated by nothing, the symptoms are aggravated by movement of head, changing position. Associated signs and symptoms: Pertinent positives: nausea. This is a 34 year old female with a history of DM, HTN, HLP that presents to the ED with complaints of urinary frequency, pelvic cramping. Patient states pain is similar to previous episodes. Patient also complains of dizziness which is chronic as well. This episode of dizziness began yesterday. Worsened with movement. Patient has not taken meclizine. States her PCP discontinued the medication. . 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 LMP 08/25/2019 rb1 Historical: - Allergies: 11:58 Ibuprofen (Hives); hb - Home Meds: 12:02 atorvastatin 10 mg Oral tab [Active]; glipizide 10 mg Oral tab 1 tab once daily rb1 [Active]; Januvia 100 mg Oral tab 1 tab once daily [Active]; lisinopril 2.5 mg Oral tab 1 tab once daily [Active]; metformin 1,000 mg Oral tab 1 tab 2 times per day [Active]; montelukast 10 mg Oral tab 1 tab once daily [Active]; naproxen 500 mg Oral TbEC 1 tab 2 times per day [Active]; - PMHx: 12:02 Diabetes - NIDDM; High Cholesterol; Hypertension; Ovarian cyst; rb1 - Immunization history:: Adult Immunizations up to date. - Social history:: Smoking status: Patient/guardian denies using tobacco. - Ebola Screening: : No symptoms or risks identified at this time. ROS: 12:22 Constitutional: Negative for fever, chills, and weight loss, Cardiovascular: Negative jmm for chest pain, palpitations, and edema, Respiratory: Negative for shortness of breath, cough, wheezing, and pleuritic chest pain. 12:22 Abdomen/GI: Positive for abdominal pain. 12:22 : Positive for pelvic pain. 12:22 Neuro: Positive for dizziness. 12:22 All other systems are negative. Exam: 12:22 Constitutional: This is a well developed, well nourished patient who is awake, alert, jmm and in no acute distress. Head/Face: atraumatic. Eyes: EOMI, no conjunctival erythema appreciated ENT: Moist Mucus Membranes Neck: Trachea midline, Supple Chest/axilla: Normal chest wall appearance and motion. Cardiovascular: Regular rate and rhythm. No edema appreciated Respiratory: Normal respirations, no respiratory distress appreciated 12:22 Abdomen/GI: Inspection: abdomen appears normal, Bowel sounds: normal, Palpation: abdomen is soft and non-tender. 12:22 Musculoskeletal/extremity: ROM: intact in all extremities. 12:22 Skin: Appearance: Color: normal in color. 12:22 Neuro: Orientation: is normal, Mentation: is normal, Memory: is normal, Cerebellar function: normal finger to nose testing, heel to rasmussen testing is normal. 12:22 Psych: Behavior/mood is pleasant, cooperative. Vital Signs: 11:58 BP 133 / 88; Pulse 78; Resp 16; Temp 97.8; Pulse Ox 100% on R/A; Weight 103.42 kg; hb Height 5 ft. 4 in. (162.56 cm); Pain 10/10; 13:00 BP 126 / 98; Pulse 80; Resp 17; Temp 98.3(O); Pulse Ox 100% on R/A; Pain 7/10; rb1 11:58 Body Mass Index 39.14 (103.42 kg, 162.56 cm) hb MDM: 12:07 Patient medically screened. [facility] 13:29 Data reviewed: vital signs, nurses notes. Counseling: I had a detailed discussion with valorie the patient and/or guardian regarding: the historical points, exam findings, and any diagnostic results supporting the discharge/admit diagnosis, the need for outpatient follow up, to return to the emergency department if symptoms worsen or persist or if there are any questions or concerns that arise at home. ED course: Symptoms are alleviated in the ED. No abdominal pain on reexamination. patient advised to follow up with ENT. Given early appendicitis return precautions. patient understood and agrees with the plan of care. . 09/19 12:17 Order name: Urine Dipstick--Ancillary (enter results); Complete Time: 12:58 em1 09/19 12:17 Order name: Urine --Ancillary (enter results); Complete Time: 12:58 em1 09/19 12:15 Order name: Urine Dipstick-Ancillary (obtain specimen); Complete Time: 12:20 [facility] 09/19 12:15 Order name: Urine Test (obtain specimen); Complete Time: 12:20 [facility] 09/19 12:15 Order name: EKG - Nurse/Tech; Complete Time: 12:48 [facility] Administered Medications: 12:25 Drug: Meclizine 50 mg Route: PO; rb1 13:00 Follow up: Response: No adverse reaction; Marked relief of symptoms rb1 Disposition: 13:51 Co-signature as Attending Physician, David Gabriel MD I agree with the assessment and kdr plan of care. Disposition: 09/19/19 13:36 Discharged to Home. Impression: Dizziness and giddiness, Dysuria. - Condition is Stable. - Discharge Instructions: Dizziness, Dysuria. - Prescriptions for Meclizine 25 mg Oral Tablet - take 1 tablet by ORAL route every 8 hours As needed; 30 tablet. - Medication Reconciliation Form, Thank You Letter, Antibiotic Education, Prescription Opioid Use form. - Follow up: Treasure Casey MD; When: 2 - 3 days; Reason: Recheck today's complaints, Continuance of care, Re-evaluation by your physician. Signatures: Dispatcher [employer] EDAZ David Gabriel MD MD kdr Mickail, Joel, PA PA [facility] Coco Martínez, RN RN rb1 Domitila Banks, RN RN Corrections: (The following items were deleted from the chart) 13:45 13:36 09/19/2019 13:36 Discharged to Home. Impression: Dizziness and giddiness; rb1 Dysuria. Condition is Stable. Forms are Medication Reconciliation Form, Thank You Letter, Antibiotic Education, Prescription Opioid Use. Follow up: Treasure Casey; When: 2 - 3 days; Reason: Recheck today's complaints, Continuance of care, Re-evaluation by your physician. [facility]
[2019-09-19 13:51] VITALS: BP 133/88; TEMP 97.8; O2SAT 100
--- NOTE | 2019-09-20 07:25 | EKG ---
Test Date: 2019-09-19 Test Time: 12:31:10 Human Performance Consultant: JAIMIE MEASUREMENT RESULTS: Intervals: Rate: 81 AR: 176 QRSD: 78 QT: 396 QTc: 460 [place]: P: 21 AR: 176 QRS: -10 T: 34 INTERPRETIVE STATEMENTS: Normal sinus rhythm Anterior infarct, age undetermined Abnormal ECG Compared to ECG 09/07/2019 19:36:49 No significant changes Electronically Signed On 09-20-19 07:22:24 CDT by Danny Rand
== END 2019-09-19 13:45 | disposition home or self-care (01) ==
LOC: ER 11:45
DX: R30.0 Dysuria (principal); I10 Essential (primary) hypertension; E11.9 Type 2 diabetes mellitus without complications; Z88.6 Allergy status to analgesic agent
CPT/HCPCS: 81003; 81025; 93005; 99283; J8597

== ENCOUNTER 2019-09-24 09:48 | Emergency (ER) | payer OTHER ==
--- NOTE | 2019-09-24 12:24 | EDPHYS ---
Physician Documentation [facility] Name: Mckenna Haney Age: 34 yrs Sex: Female : 1985 Arrival Date: 09/24/2019 Time: 09:50 Bed 11 Private MD: ANTONIO Physician Wade Retana HPI: 09/24 12:19 This 34 yrs old Female presents to ER via Ambulatory with complaints of Sore tish Throat, Cough. 12:19 The patient presents with sore throat. The patient describes throat pain as constant. 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 tw2 Historical: - Allergies: 10:23 Ibuprofen (Hives); ss - Home Meds: 10:23 atorvastatin 10 mg Oral tab [Active]; glipizide 10 mg Oral tab 1 tab once daily ss [Active]; Januvia 100 mg Oral tab 1 tab once daily [Active]; lisinopril 2.5 mg Oral tab 1 tab once daily [Active]; metformin 1,000 mg Oral tab 1 tab 2 times per day [Active]; montelukast 10 mg Oral tab 1 tab once daily [Active]; naproxen 500 mg Oral TbEC 1 tab 2 times per day [Active]; - PMHx: 10:23 Diabetes - NIDDM; High Cholesterol; Hypertension; Ovarian cyst; ss - Immunization history:: Adult Immunizations unknown. - Social history:: Smoking status: Patient/guardian denies using tobacco. - Ebola Screening: : Patient denies exposure to infectious person Patient denies travel to an Ebola-affected area in the 21 days before illness onset. ROS: 12:20 Constitutional: Negative for fever, chills, and weight loss, Eyes: Negative for injury, tish pain, redness, and discharge, ENT: Negative for injury, pain, and discharge, Neck: Negative for injury, pain, and swelling, Cardiovascular: Negative for chest pain, palpitations, and edema, Abdomen/GI: Negative for abdominal pain, nausea, vomiting, diarrhea, and constipation, Back: Negative for injury and pain, : Negative for injury, bleeding, discharge, and swelling, MS/Extremity: Negative for injury and deformity, Skin: Negative for injury, rash, and discoloration, Neuro: Negative for headache, weakness, numbness, tingling, and seizure, Psych: Negative for depression, anxiety, suicide ideation, homicidal ideation, and hallucinations, Allergy/Immunology: Negative for hives, rash, and allergies, Endocrine: Negative for neck swelling, polydipsia, polyuria, polyphagia, and marked weight changes, Hematologic/Lymphatic: Negative for swollen nodes, abnormal bleeding, and unusual bruising. 12:20 Respiratory: Positive for cough, with green sputum. Exam: 12:20 Constitutional: This is a well developed, well nourished patient who is awake, alert, tish and in no acute distress. Head/Face: Normocephalic, atraumatic. Eyes: Pupils equal round and reactive to light, extra-ocular motions intact. Lids and lashes normal. Conjunctiva and sclera are non-icteric and not injected. Cornea within normal limits. Periorbital areas with no swelling, redness, or edema. Neck: Trachea midline, no thyromegaly or masses palpated, and no cervical lymphadenopathy. Supple, full range of motion without nuchal rigidity, or vertebral point tenderness. No Meningismus. Chest/axilla: Normal chest wall appearance and motion. Nontender with no deformity. No lesions are appreciated. Cardiovascular: Regular rate and rhythm with a normal S1 and S2. No gallops, murmurs, or rubs. Normal PMI, no JVD. No pulse deficits. Respiratory: Lungs have equal breath sounds bilaterally, clear to auscultation and percussion. No rales, rhonchi or wheezes noted. No increased work of breathing, no retractions or nasal flaring. Abdomen/GI: Soft, non-tender, with normal bowel sounds. No distension or tympany. No guarding or rebound. No evidence of tenderness throughout. Back: No spinal tenderness. No costovertebral tenderness. Full range of motion. Skin: Warm, dry with normal turgor. Normal color with no rashes, no lesions, and no evidence of cellulitis. MS/ Extremity: Pulses equal, no cyanosis. Neurovascular intact. Full, normal range of motion. Neuro: Awake and alert, GCS 15, oriented to person, place, time, and situation. Cranial nerves II-XII grossly intact. Motor strength 5/5 in all extremities. Sensory grossly intact. Cerebellar exam normal. Normal gait. Psych: Awake, alert, with orientation to person, place and time. Behavior, mood, and affect are within normal limits. 12:20 Respiratory: the patient does not display signs of respiratory distress, Respirations: normal, Breath sounds: are clear throughout, decreased breath sounds, rhonchi, that are mild, stridor, is not appreciated. Vital Signs: 10:23 BP 130 / 87; Pulse 70; Resp 15; Temp 97.7(TE); Pulse Ox 99% on R/A; Weight 103.42 kg; ss Height 5 ft. 4 in. (162.56 cm); Pain 08/06; 10:23 Body Mass Index 39.14 (103.42 kg, 162.56 cm) MDM: 11:07 Patient medically screened. tish 09/24 10:24 Order name: Flu 09/24 10:24 Order name: Strep 09/24 10:24 Order name: Urine Dipstick-Ancillary (obtain specimen); Complete Time: 11:15 09/24 11:27 Order name: Throat Culture EDDC 09/24 11:59 Order name: Urine Dipstick--Ancillary (enter results) bd 09/24 11:59 Order name: Urine --Ancillary (enter results) bd Administered Medications: No medications were administered Disposition: 09/24/19 12:24 Discharged to Home. Impression: Acute pharyngitis, Cough. - Condition is Stable. - Discharge Instructions: Pharyngitis, Cool Mist Vaporizer, Pharyngitis, [id number], Cough, Adult, [id number], Cough, Adult, Sore Throat, [id number]. - Prescriptions for Bromfed DM 2- 30-10 mg/5 mL Oral syrup - take 10 milliliter by ORAL route every 6 hours; 160 milliliter. Zithromax Z- Trevor 250 mg Oral Tablet - take 1 tablet by ORAL route as directed for 5 days Day 1 - take two (2) tablets one time. Day 2, 3, 4 , 5 take one (1) tablet once daily.; 6 tablet. - Medication Reconciliation Form, Thank You Letter, Antibiotic Education, Prescription Opioid Use, Work release form form. - Follow up: Private Physician; When: 2 - 3 days; Reason: Recheck today's complaints, Continuance of care, Re-evaluation by your physician. - Problem is new. - Symptoms have improved. Signatures: Dispatcher [employer] EDWade Reid MD MD tish Smirch, [place], RN RN ss Oriana Chong RN RN tw2 Corrections: (The following items were deleted from the chart) 12:29 12:24 09/24/2019 12:24 Discharged to Home. Impression: Acute pharyngitis; Cough. tw2 Condition is Stable. Forms are Work release form, Medication Reconciliation Form, Thank You Letter, Antibiotic Education, Prescription Opioid Use. Follow up: Private Physician; When: 2 - 3 days; Reason: Recheck today's complaints, Continuance of care, Re-evaluation by your physician. Problem is new. Symptoms have improved. tish
--- NOTE | 2019-09-24 12:24 | ER ---
Nurse's Notes [facility] Name: Mckenna Haney Age: 34 yrs Sex: Female : 1985 Arrival Date: 09/24/2019 Time: 09:50 Bed 11 Private MD: Diagnosis: Acute pharyngitis;Cough Presentation: 09/24 10:21 Presenting complaint: Patient states: runny nose, cough, sore throat that began ss yesterday. Also c/o lower abd cramping and burning with urination x 2-3 days. Transition of care: patient was not received from another setting of care. Onset of symptoms was August 2019. Risk Assessment: Do you want to hurt yourself or someone else? Patient reports no desire to harm self or others. Initial Sepsis Screen: Does the patient meet any 2 criteria? No. Patient's initial sepsis screen is negative. Does the patient have a suspected source of infection? Yes: Dysuria/Frequency/Urgency/UTI. Care prior to arrival: None. 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 tw2 Historical: - Allergies: 10:23 Ibuprofen (Hives); ss - Home Meds: 10:23 atorvastatin 10 mg Oral tab [Active]; glipizide 10 mg Oral tab 1 tab once daily ss [Active]; Januvia 100 mg Oral tab 1 tab once daily [Active]; lisinopril 2.5 mg Oral tab 1 tab once daily [Active]; metformin 1,000 mg Oral tab 1 tab 2 times per day [Active]; montelukast 10 mg Oral tab 1 tab once daily [Active]; naproxen 500 mg Oral TbEC 1 tab 2 times per day [Active]; - PMHx: 10:23 Diabetes - NIDDM; High Cholesterol; Hypertension; Ovarian cyst; ss - Immunization history:: Adult Immunizations unknown. - Social history:: Smoking status: Patient/guardian denies using tobacco. - Ebola Screening: : Patient denies exposure to infectious person Patient denies travel to an Ebola-affected area in the 21 days before illness onset. Screenin:33 Abuse screen: Denies threats or abuse. Nutritional screening: No deficits noted. tw2 Tuberculosis screening: No symptoms or risk factors identified. Fall Risk None identified. Assessment: 10:27 Reassessment: Patient was seen in ED 5 days ago for lower abd cramping, dysuria and ss vomiting. Urine was negative for infection. Patient is requesting a test today. 11:32 General: Appears in no apparent distress. obese, Behavior is calm, cooperative, tw2 appropriate for age. Pain: Complains of pain in "burning with urination". Neuro: Level of Consciousness is awake, alert, obeys commands, Oriented to person, place, time, situation. Cardiovascular: Patient's skin is warm and dry. Respiratory: Reports cough that is non-productive, Airway is patent Respiratory effort is even, unlabored, Respiratory pattern is regular, symmetrical, Breath sounds are clear bilaterally. GI: No signs and/or symptoms were reported involving the gastrointestinal system. : Reports burning with urination. EENT: Throat is pink Reports nasal congestion nasal discharge. Musculoskeletal: No signs and/or symptoms reported regarding the musculoskeletal system. Range of motion: intact in all extremities. 12:28 Reassessment: Patient appears in no apparent distress at this time. Patient and/or tw2 family updated on plan of care and expected duration. Pain level reassessed. Patient is alert, oriented x 3, equal unlabored respirations, skin warm/dry/pink. Vital Signs: 10:23 BP 130 / 87; Pulse 70; Resp 15; Temp 97.7(TE); Pulse Ox 99% on R/A; Weight 103.42 kg; ss Height 5 ft. 4 in. (162.56 cm); Pain 9/10; 10:23 Body Mass Index 39.14 (103.42 kg, 162.56 cm) ED Course: 09:50 Patient arrived in ED. as 10:22 Triage completed. ss 10:23 Arm band placed on right wrist. ss 10:58 Bed in low position. Call light in reach. tw2 11:04 Oriana Chong RN is Primary Nurse. tw2 11:07 Wade Retana MD is Attending Physician. [facility] 12:28 No provider procedures requiring assistance completed. Patient did not have IV access tw2 during this emergency room visit. Administered Medications: No medications were administered Outcome: 12:24 Discharge ordered by . tish 12:28 Discharged to home ambulatory. tw2 12:28 Condition: stable 12:28 Discharge instructions given to patient, Instructed on discharge instructions, the need for admit, medication usage, Demonstrated understanding of instructions, follow-up care, medications, Prescriptions given X 2. 12:29 Patient left the ED. tw2 Signatures: Wade Retana MD MD cha Martinez, Amelia as Smirch, [place], RN RN ss Oriana Chong RN RN tw2
[2019-09-24 12:51] LABS: Urine Blood NEGATIVE (NEG); Urine Glucose NEGATIVE (NEG); Urine Protein NEGATIVE (NEG)
[2019-09-24 13:15] VITALS: BP 130/87; TEMP 97.7; O2SAT 99
== END 2019-09-24 12:29 | disposition home or self-care (01) ==
LOC: ER 09:48
DX: J02.9 Acute pharyngitis, unspecified (principal); R05 Cough; E11.9 Type 2 diabetes mellitus without complications; E78.00 Pure hypercholesterolemia, unspecified; I10 Essential (primary) hypertension
CPT/HCPCS: 81003; 81025; 87070; 87081; 87804; 99282

== ENCOUNTER 2019-10-03 10:22 | Emergency (ER) | payer OTHER ==
[2019-10-03 12:05] LABS: Absolute Lymphocytes (CBC) 2.7 K/uL (0.7-4.9); Basophils % 0.6 % (0-1.3); Hematocrit 39.5 % (36.0-45.0); Lymphocytes % 29.2 % (15.3-44.8); MPV 8.7 fL (7.6-11.3); RBC Red Blood Cell Count 4.09 M/uL (3.86-4.86)
[2019-10-03 12:24] LABS: ALT/SGPT 19 U/L (12-78); AST/SGOT 9 U/L (15-37); Albumin 3.8 g/dL (3.4-5.0); Alkaline Phosphatase 69 U/L (45-117); BUN Blood Urea Nitrogen 8 mg/dL (7-18); Bicarbonate 26 mmol/L (21-32); Bilirubin Direct 0.1 mg/dL (0-0.2); Bilirubin Total 0.6 mg/dL (0.2-1.0); Glucose Level 107 mg/dL (74-106); Lipase 96 U/L (73-393); Potassium 3.8 mmol/L (3.5-5.1); Protein, Total 8.1 g/dL (6.4-8.2); Sodium Level 140 mmol/L (136-145)
[2019-10-03 13:13] LABS: Urine Blood NEGATIVE (NEG); Urine Glucose NEGATIVE (NEG); Urine Protein NEGATIVE (NEG); Urine pH 6.5 (5.0-7.0)
[2019-10-03 13:59] LABS: Urine Bacteria <20 /HPF (<20); Urine Culture Reflex Order NOT NEEDED; Urine RBC <5 /HPF (NONE SEEN)
--- NOTE | 2019-10-03 14:48 | ER ---
Nurse's Notes [facility] Name: Mckenna Haney Age: 34 yrs Sex: Female : 1985 Arrival Date: 10/03/2019 Time: 10:24 Bed 18 Private MD: Diagnosis: Abdominal and pelvic pain;Trichomoniasis;Candidiasis of other urogenital sites Presentation: 10/03 10:45 Presenting complaint: Patient states: epigastric and RUQ pain, c/o white vaginal sv discharge, mid back pain started yesterday. Transition of care: patient was not received from another setting of care. Onset of symptoms was October 02, 2019. Risk Assessment: Do you want to hurt yourself or someone else? Patient reports no desire to harm self or others. Initial Sepsis Screen: Does the patient meet any 2 criteria? No. Patient's initial sepsis screen is negative. Does the patient have a suspected source of infection? No. Patient's initial sepsis screen is negative. Care prior to arrival: None. 10:45 Method Of Arrival: Ambulatory sv 10:45 Acuity: LILO 3 sv Triage Assessment: 10:45 General: Appears in no apparent distress. uncomfortable, Behavior is calm, cooperative, sv appropriate for age. Neuro: Level of Consciousness is awake, alert, obeys commands, Gait is steady. Respiratory: Respiratory effort is even, unlabored. GI: Reports upper abdominal pain. : Reports discharge, from vagina that is white. 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 - Social history:: Smoking status: unknown. - Ebola Screening: : No symptoms or risks identified at this time. Screenin:56 Abuse screen: Denies threats or abuse. Denies injuries from another. Nutritional jl7 screening: No deficits noted. Tuberculosis screening: No symptoms or risk factors identified. Fall Risk IV access (20 points). Total Mccabe Fall Scale indicates No Risk (0-24 pts). Assessment: 11:41 General: Appears in no apparent distress. uncomfortable, obese, Behavior is calm, jl7 cooperative. Pain: Complains of pain in right upper quadrant Pain does not radiate. Pain currently is 8 out of 10 on a pain scale. Quality of pain is described as stabbing, Pain began 2-3 days ago. Is intermittent. Pain: Complains of pain in right lower quadrant and left lower quadrant Pain does not radiate. Pain currently is 10 out of 10 on a pain scale. Quality of pain is described as crampy, Pain began this morning Is continuous. Pain: Complains of pain in forehead Pain does not radiate. Pain currently is 9 out of 10 on a pain scale. Quality of pain is described as sharp, Pain began 1 month ago Is continuous. Neuro: Level of Consciousness is awake, alert, obeys commands, Oriented to person, place, time, situation, Moves all extremities. Full function Gait is steady, Speech is normal, Facial symmetry appears normal. Cardiovascular: Patient's skin is warm and dry. Respiratory: Airway is patent Respiratory effort is even, unlabored. GI: Abdomen is round non-distended, Bowel sounds present X 4 quads. Abd is soft X 4 quads Abdomen is tender to palpation X 4 quads. Reports nausea, vomiting, Patient currently denies diarrhea. : Reports discharge, from vagina that is malodorous, white. Derm: Skin is pink, warm \T\ dry. 12:30 Reassessment: Patient appears in no apparent distress at this time. Patient and/or jl7 family updated on plan of care and expected duration. Pain level reassessed. Patient is alert, oriented x 3, equal unlabored respirations, skin warm/dry/pink. 13:30 Reassessment: Patient appears in no apparent distress at this time. Patient and/or jl7 family updated on plan of care and expected duration. Pain level reassessed. Patient is alert, oriented x 3, equal unlabored respirations, skin warm/dry/pink. Patient states feeling better. Patient states symptoms have improved. 14:37 Reassessment: pt reports mild dizziness, BGL 81 and pt reports her normal is around jl7 120, ERD notified and apple juice provided. Vital Signs: 10:47 BP 122 / 77; Pulse 72; Resp 16; Temp 97.8(TE); Pulse Ox 99% ; Weight 103.42 kg; Height sv 5 ft. 4 in. (162.56 cm); Pain 10/10; 11:41 BP 122 / 76; Pulse 74; Resp 16 S; Pulse Ox 100% on R/A; Pain 10/10; jl7 13:59 BP 114 / 74; Pulse 70; Resp 17; Temp 98.2(O); Pulse Ox 100% on R/A; mh5 10:47 Body Mass Index 39.14 (103.42 kg, 162.56 cm) ED Course: 10:24 Patient arrived in ED. as 10:36 David Gabriel MD is Attending Physician. kdr 10:47 Triage completed. sv 10:47 Arm band placed on. sv 11:30 Wes Cooper RN is Primary Nurse. jl7 11:56 Patient has correct armband on for positive identification. Placed in gown. Bed in low jl7 position. Call light in reach. Side rails up X 1. Pulse ox on. NIBP on. 11:56 Initial lab(s) drawn, by pa, sent to lab. Urine collected: clean catch specimen. jl7 Inserted saline lock: 22 gauge in right antecubital area, using aseptic technique. Blood collected. 14:02 Assist provider with pelvic exam: Set up pelvic tray. Performed by David Gabriel MD [facility] Specimens sent to lab. Patient tolerated well. 15:03 IV discontinued, intact, bleeding controlled, No redness/swelling at site. Pressure jl7 dressing applied. Administered Medications: 15:01 Drug: Flagyl 2 grams Route: PO; jl7 15:02 Follow up: Response: Medication administered at discharge. jl7 15:01 Drug: DiFLUcan 150 mg Route: PO; jl7 15:02 Follow up: Response: Medication administered at discharge. jl7 Outcome: 14:48 Discharge ordered by . kdr 15:02 Discharged to home ambulatory. jl7 15:02 Condition: stable 15:02 Discharge instructions given to patient, Instructed on discharge instructions, follow up and referral plans. medication usage, safe sex practices, Demonstrated understanding of instructions, follow-up care, medications, safe sex practices Prescriptions given X 3. 15:03 Patient left the ED. jl7 Signatures: Treasure Stapleton RN RN David Gabriel MD MD kdr Martinez, Amelia as Martinez, Maria mh5 Wes Cooper, RN RN jl7
--- NOTE | 2019-10-03 14:49 | EDPHYS ---
Physician Documentation [facility] Name: Mckenna Haney Age: 34 yrs Sex: Female : 1985 Arrival Date: 10/03/2019 Time: 10:24 Bed 18 Private MD: ED Physician David Gabriel HPI: 10/03 18:41 This 34 yrs old Female presents to ER via Ambulatory with complaints of kdr Abdominal Pain. 18:41 The patient presents with abdominal pain in the right upper quadrant. Onset: The kdr symptoms/episode began/occurred gradually, 1 week(s) ago. The symptoms do not radiate. Associated signs and symptoms: Pertinent positives: vaginal discharge. The symptoms are described as achy, crampy, dull, intermittent, vague, waxing/waning. Modifying factors: The symptoms are alleviated by nothing, the symptoms are aggravated by nothing. Severity of pain: At its worst the pain was mild moderate just prior to arrival, in the emergency department the pain has improved moderately. The patient has not experienced similar symptoms in the past. The patient has not recently seen a physician. 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 - Social history:: Smoking status: unknown. - Ebola Screening: : No symptoms or risks identified at this time. ROS: 18:41 Constitutional: Negative for fever, chills, and weight loss, Eyes: Negative for injury, kdr pain, redness, and discharge, ENT: Negative for injury, pain, and discharge, Neck: Negative for injury, pain, and swelling, Cardiovascular: Negative for chest pain, palpitations, and edema, Respiratory: Negative for shortness of breath, cough, wheezing, and pleuritic chest pain, Back: Negative for injury and pain, MS/Extremity: Negative for injury and deformity, Skin: Negative for injury, rash, and discoloration, Neuro: Negative for headache, weakness, numbness, tingling, and seizure activity. Psych: Negative for depression, anxiety, suicide ideation, homicidal ideation, and hallucinations, Allergy/Immunology: Negative for hives, rash, and allergies, Endocrine: Negative for neck swelling, polydipsia, polyuria, polyphagia, and marked weight changes, Hematologic/Lymphatic: Negative for swollen nodes, abnormal bleeding, and unusual bruising. 18:41 Abdomen/GI: Positive for abdominal pain, abdominal cramps, Negative for black/tarry stool, rectal pain, rectal bleeding. 18:41 : Positive for vaginal discharge, Negative for urinary frequency, flank pain, burning with urination, difficulty urinating. Exam: 18:41 Constitutional: This is a well developed, well nourished patient who is awake, alert, kdr and in no acute distress. Head/Face: Normocephalic, atraumatic. Eyes: Pupils equal round and reactive to light, extra-ocular motions intact. Lids and lashes normal. Conjunctiva and sclera are non-icteric and not injected. Cornea within normal limits. Periorbital areas with no swelling, redness, or edema. Neck: Trachea midline, no thyromegaly or masses palpated, and no cervical lymphadenopathy. Supple, full range of motion without nuchal rigidity, or vertebral point tenderness. No Meningismus. Chest/axilla: Normal chest wall appearance and motion. Nontender with no deformity. No lesions are appreciated. Respiratory: Lungs have equal breath sounds bilaterally, clear to auscultation and percussion. No rales, rhonchi or wheezes noted. No increased work of breathing, no retractions or nasal flaring. Back: No spinal tenderness. No costovertebral tenderness. Full range of motion. Skin: Warm, dry with normal turgor. Normal color with no rashes, no lesions, and no evidence of cellulitis. MS/ Extremity: Pulses equal, no cyanosis. Neurovascular intact. Full, normal range of motion. Neuro: Awake and alert, GCS 15, oriented to person, place, time, and situation. Cranial nerves II-XII grossly intact. Motor strength 5/5 in all extremities. Sensory grossly intact. Cerebellar exam normal. Normal gait. Psych: Awake, alert, with orientation to person, place and time. Behavior, mood, and affect are within normal limits. 18:41 Abdomen/GI: Inspection: obese Bowel sounds: active, diminished, in all quadrants, Palpation: soft, mild abdominal tenderness, in all quadrants. 18:41 : CVA tenderness, is absent, Pelvic Exam: External exam: is normal, Speculum exam: no bleeding is noted, no cervicitis, bimanual exam reveals no cervical motion tenderness, normal sized uterus, discharge, malodorous, white. Vital Signs: 10:47 BP 122 / 77; Pulse 72; Resp 16; Temp 97.8(TE); Pulse Ox 99% ; Weight 103.42 kg; Height sv 5 ft. 4 in. (162.56 cm); Pain 10/10; 11:41 BP 122 / 76; Pulse 74; Resp 16 S; Pulse Ox 100% on R/A; Pain 10/10; jl7 13:59 BP 114 / 74; Pulse 70; Resp 17; Temp 98.2(O); Pulse Ox 100% on R/A; mh5 10:47 Body Mass Index 39.14 (103.42 kg, 162.56 cm) sv MDM: 14:48 Patient medically screened. kdr 18:41 Data reviewed: vital signs, nurses notes, lab test result(s), radiologic studies. kdr Counseling: I had a detailed discussion with the patient and/or guardian regarding: the historical points, exam findings, and any diagnostic results supporting the discharge/admit diagnosis, lab results, radiology results, the need for outpatient follow up. 10/03 11:42 Order name: Basic Metabolic Panel; Complete [facility]: [facility] 11:42 Order name: CBC with Diff; Complete [facility] 12:19 [facility] 10/03 11:42 Order name: Creatinine for Radiology; Complete Time: 13:24 [facility] 10/03 11:42 Order name: Hepatic Function; Complete Time: 13:24 [facility] 10/03 11:42 Order name: Lipase; Complete Time: 13:24 [facility] 10/03 11:44 Order name: Urine Dipstick--Ancillary (enter results); Complete Time: 13:24 [facility] 10/03 11:42 Order name: IV Saline Lock; Complete Time: 11:59 [facility] 10/03 11:44 Order name: Urine --Ancillary (enter results); Complete Time: 13:24 [facility] 10/03 13:27 Order name: Urine Microscopic Only; Complete Time: 14:28 [facility] 10/03 13:55 Order name: GC (GONORR/CHLAMYDIA) Probe [facility] 10/03 13:56 Order name: Wet Prep; Complete Time: 14:42 aa 10/03 14:33 Order name: Glucose, Ancillary Testing; Complete Time: 14:42 EDID 10/03 11:42 Order name: Labs collected and sent; Complete Time: 11:59 kdr 10/03 11:42 Order name: Urine Dipstick-Ancillary (obtain specimen); Complete Time: 11:42 kdr 10/03 11:42 Order name: Urine Test (obtain specimen); Complete Time: 11:43 [facility] Administered Medications: 15:01 Drug: Flagyl 2 grams Route: PO; jl7 15:02 Follow up: Response: Medication administered at discharge. 7 15:01 Drug: DiFLUcan 150 mg Route: PO; 7 15:02 Follow up: Response: Medication administered at discharge. 7 Disposition: 10/03/19 14:48 Discharged to Home. Impression: Abdominal and pelvic pain, Trichomoniasis, Candidiasis of other urogenital sites. - Condition is Stable. - Discharge Instructions: Trichomoniasis, Vaginal Yeast Infection, Adult, Abdominal Pain, Adult, Mbch-dt-[facility]. - Prescriptions for Pepcid 20 mg Oral Tablet - take 1 tablet by ORAL route every 12 hours for 5 days; 10 tablet. Zofran 4 mg Oral Tablet - take 1 tablet by ORAL route every 12 hours As needed; 6 tablet. Tramadol 50 mg Oral Tablet - take 1 tablet by ORAL route every 8 hours as needed; 12 tablet. - Medication Reconciliation Form, Thank You Letter, Antibiotic Education, Prescription Opioid Use, Work release form form. - Follow up: Private Physician; When: 2 - 3 days; Reason: If symptoms return, Further diagnostic work-up, Recheck today's complaints, Continuance of care, Re-evaluation by your physician. - Problem is new. - Symptoms have improved. Signatures: Dispatcher [employer] [facility] Treasure Stapleton, RN David Aguirre MD MD kdr Calderon, Audri, RN RN aa5 Wes Cooper RN RN jl7 Corrections: (The following items were deleted from the chart) 11:42 11:42 Urine Dipstick-Ancillary ordered. [place] [id number] 15:03 14:48 10/03/2019 14:48 Discharged to Home. Impression: Abdominal and pelvic pain; jl7 Trichomoniasis; Candidiasis of other urogenital sites. Condition is Stable. Forms are Medication Reconciliation Form, Thank You Letter, Antibiotic Education, Prescription Opioid Use. Follow up: Private Physician; When: 2 - 3 days; Reason: If symptoms return, Further diagnostic work-up, Recheck today's complaints, Continuance of care, Re-evaluation by your physician. Problem is new. Symptoms have improved. kdr
[2019-10-03] MEDS ORDERED: FLUCONAZOLE 100 MG TAB ONE (14:54)
[2019-10-03] MEDS ORDERED: metroNIDAZOLE 500 MG TABLET ONE (14:54)
[2019-10-03 17:25] VITALS: O2SAT 100
[2019-10-03 17:27] VITALS: BP 114/74; TEMP 98.2
[2019-10-06 08:28] LABS: C.trachomatis RNA,TMA Not Detected (Not Detected)
--- OUTSIDE RECORDS SUMMARY | 2019-10-07 03:10 | XMS REPORT ---
[...] Start Date End Date Status Dosage Vernsharitahayde [facility] 14397342679 100 MG Orally Active 1 tablet Once a day Results No Known Results Summary Purpose eClinicalWorks Submission
--- OUTSIDE RECORDS SUMMARY | 2019-10-07 03:10 | XMS REPORT ---
[...] End Status Dosage System Date Date Atorvastatin [facility] 78926953493 10 MG Orally Active 1 tablet Calcium Once a day Meclizine HCl [facility] 09951821804 25 MG Orally April Active 1 tablet as bid prn 07, needed [address] [facility] 33188359584 25 MG Orally April Active 1 tablet Benzoate Once a day for 28, diabetes [address] [facility] 04265813477 500 MG Orally Active 1 capsule Twice a day Vitamin D [facility] 92580173604 2000 UNIT Active 1 tablet Orally Once a day Orphenadrine [facility] [address]-91 100 MG Orally Active as directed Citrate ER Lisinopril [facility] 29427866729 5 MG Orally Active 1 tablet Once a day GlipiZIDE XL [facility] 57884495164 5 MG Orally Active 1 tablet with Once a day food Januvia [facility] 14857589752 100 MG Orally Inactive 1 tablet Once a day Loratadine [facility] 45315468756 10 MG Orally Active 1 tablet Once a day BusPIRone HCl [facility] 91072497264 7.5 MG Orally April 18, Active 1 tablet as Twice a day 2018 needed for anxiety Triamcinolone [facility] 95265649964 0.1 % April Active 1 application Acetonide , to affected Twice a day 2019 areas Results No Known Results Summary Purpose eClinicalWorks Submission
--- OUTSIDE RECORDS SUMMARY | 2019-10-07 03:10 | XMS REPORT ---
[...] Status Dosage System Date Date Dicyclomine HCl [facility] 30007643233 20 MG Orally May Active 1 tablet as Four times a 09, 19, needed for day 2018 2018 stomach pain Triamcinolone [facility] 16783857908 0.1 % April Active 1 application Acetonide Externally 28, to affected Twice a day 2019 areas Loratadine [facility] 54236916843 10 MG Orally Active 1 tablet Once a day Lisinopril [facility] 96274717675 5 MG Orally Active 1 tablet Once a day Farxiga ND 83121422437 5mg Orally May Active 1 tablet Once daily , 2018 Lactulose [facility] 40118986702 10 GM/15ML May Active 15-30 ml Orally Once to , twice a day as 2018 2018 needed for constipation BusPIRone HCl [facility] 39075632477 7.5 MG Orally April 18, Active 1 tablet as Twice a day 2018 needed for anxiety Vitamin D [facility] 85821652211 2000 UNIT Active 1 tablet Orally Once a day Atorvastatin [facility] 58373528088 10 MG Orally Active 1 tablet Calcium Once a day Orphenadrine [facility] [address]-78 100 MG Orally Active as directed Citrate ER Alogliptin [facility] 09672918725 25 MG Orally April Active 1 tablet Benzoate Once a day for , diabetes 2019 Pioglitazone HCl [facility] 00899171740 15 MG Orally May Active 1 tablet Once a day for 05, diabetes 2019 GlipiZIDE XL [facility] 73834213542 5 MG Orally Active 1 tablet with Once a day food Amoxicillin [facility] 59785357694 500 MG Orally Active 1 capsule Twice a day Meclizine HCl [facility] 58096305556 25 MG Orally April Active 1 tablet as Twice daily , needed for 2019 dizziness Results No Known Results Summary Purpose eClinicalWorks Submission
--- OUTSIDE RECORDS SUMMARY | 2019-10-07 03:10 | XMS REPORT ---
[...] Status Dosage System Date Date BusPIRone HCl [facility] 76547688949 7.5 MG Orally April 18, Active 1 tablet as Twice a day 2019 needed for anxiety Vitamin D ND 62798758625 2000 UNIT Active 1 tablet Orally Once a day Atorvastatin [facility] 69175247119 10 MG Orally Active 1 tablet Calcium Once a day Orphenadrine [facility] [address]-53 100 MG Orally Active as directed Citrate ER Meclizine HCl [facility] 00811055881 25 MG Orally April Active 1 tablet as Twice daily 07, needed for 2019 dizziness Lisinopril [facility] 74643379035 5 MG Orally Active 1 tablet Once a day Pioglitazone HCl [facility] 37495333978 15 MG Orally May Active 1 tablet Once a day for , diabetes 2019 Amoxicillin [facility] 83760041851 500 MG Orally Active 1 capsule Twice a day Loratadine [facility] 77762839692 10 MG Orally Active 1 tablet Once a day GlipiZIDE XL [facility] 35611515103 5 MG Orally Active 1 tablet with Once a day food Triamcinolone [facility] 44264987686 0.1 % April Active 1 application Acetonide Externally 28, to affected Twice a day 2019 areas Alogliptin [facility] 72965724055 25 MG Orally April Active 1 tablet Benzoate Once a day for , diabetes 2019 Results No Known Results Summary Purpose eClinicalWorks Submission
--- OUTSIDE RECORDS SUMMARY | 2019-10-07 03:10 | XMS REPORT ---
[...] Status Dosage System Date Date Atorvastatin ND 00969046570 10 MG Orally Active 1 tablet Calcium Once a day Lisinopril ND 36178775543 5 MG Orally Active 1 tablet Once a day Dicyclomine HCl ND 85764669606 20 MG Orally May Active 1 tablet as Four times a 09, 19, needed for day 2018 2018 stomach pain Loratadine ND 51402117228 10 MG Orally Active 1 tablet Once a day Triamcinolone [facility] 22620265183 0.1 % April Active 1 application Acetonide Externally 28, to affected Twice a day 2019 areas GlipiZIDE XL [facility] 73238065551 5 MG Orally Active 1 tablet with Once a day food Pioglitazone HCl [facility] 37476667251 15 MG Orally May Active 1 tablet Once a day for , diabetes 2019 Amoxicillin [facility] 40116357303 500 MG Orally Active 1 capsule Twice a day Orphenadrine [facility] [address]-59 100 MG Orally Active as directed Citrate ER Alogliptin [facility] 10875028180 25 MG Orally April Active 1 tablet Benzoate Once a day for , diabetes 2019 Vitamin D [facility] 21846131978 2000 UNIT Active 1 tablet Orally Once a day BusPIRone HCl [facility] 69265570006 7.5 MG Orally April 18, Active 1 tablet as Twice a day 2019 needed for anxiety Meclizine HCl [facility] 26765970927 25 MG Orally April Active 1 tablet as Twice daily , needed for 2019 dizziness Results No Known Results Summary Purpose eClinicalWorks Submission
--- OUTSIDE RECORDS SUMMARY | 2019-10-07 03:10 | XMS REPORT ---
[...] End Status Dosage System Date Date Loratadine [facility] 14521566057 10 MG Orally Active 1 tablet Once a day Vitamin D [facility] 84999016669 2000 UNIT Active 1 tablet Orally Once a day Meclizine HCl ND 54297849949 25 MG Orally April Active 1 tablet as Twice daily 07, needed for 2019 dizziness Pioglitazone HCl ND 19683727127 15 MG Orally May Active 1 tablet Once a day for , diabetes 2019 Dicyclomine HCl [facility] 99364900335 20 MG Orally May Active 1 tablet as Four times a 09, 19, needed for day 2018 2019 stomach pain Atorvastatin ND 85966477088 10 MG Orally Active 1 tablet Calcium Once a day Lisinopril [facility] 40730891298 5 MG Orally Active 1 tablet Once a day Amoxicillin [facility] 10351026469 500 MG Orally Active 1 capsule Twice a day Alogliptin [facility] 02662377215 25 MG Orally April Active 1 tablet Benzoate Once a day for 28, diabetes 2018 GlipiZIDE XL [facility] 21249715807 5 MG Orally Active 1 tablet with Once a day food GlipiZIDE [facility] 46772478069 5 MG Orally May Active 1 tablet Once a day 2018 Triamcinolone [facility] 44392439269 0.1 % April Active 1 application Acetonide Externally , to affected Twice a day 2019 areas BusPIRone HCl [facility] 38437767555 7.5 MG Orally April 18, Active 1 tablet as Twice a day 2018 needed for anxiety Orphenadrine [facility] [address]-32 100 MG Orally Active as directed Citrate ER Results No Known Results Summary Purpose eClinicalWorks Submission
--- OUTSIDE RECORDS SUMMARY | 2019-10-07 03:10 | XMS REPORT ---
:1985 [facility] Address [address] [place] [address] Dr. [address] [place] [address] Care Team Providers Name Role Phone Unavailable [...]
--- OUTSIDE RECORDS SUMMARY | 2019-10-07 03:11 | XMS REPORT ---
:1985 [facility] Care Team Providers Name Role Phone Klarissa [...] End Status Dosage System Date Date Atorvastatin [facility] 76929155357 10 MG Orally Active 1 tablet Calcium Once a day Orphenadrine [facility] [address]-87 100 MG Orally Active as directed Citrate ER Amoxicillin [facility] 78883899620 500 MG Orally Active 1 capsule Twice a day Meclizine HCl [facility] 59820764777 25 MG Orally April Active 1 tablet as Twice daily , needed for 2019 dizziness BusPIRone HCl [facility] 59793560748 7.5 MG Orally April 18, Active 1 tablet as Twice a day 2018 needed for anxiety Loratadine [facility] 14459987684 10 MG Orally Active 1 tablet Once a day GlipiZIDE XL [facility] 03268560326 5 MG Orally Active 1 tablet with Once a day food Farxiga [facility] 31554810750 5mg Orally May Active 1 tablet Once daily 2018 2019 Pioglitazone HCl [facility] 67304528867 15 MG Orally May Active 1 tablet Once a day for 05, diabetes 2019 Alogliptin [facility] 52974132870 25 MG Orally April Active 1 tablet Benzoate Once a day for 28, diabetes 2019 Triamcinolone [facility] 75539806365 0.1 % April Active 1 application Acetonide Externally 28, to affected Twice a day 2019 areas Lisinopril [facility] 72801460044 5 MG Orally Active 1 tablet Once a day Vitamin D [facility] 27414268883 2000 UNIT Active 1 tablet Orally Once a day BELVIQ [facility] 13597388740 10 MG orally Jun 28Sep Active 1 tablet Twice a day 2018 Results No Known Results Summary Purpose eClinicalWorks Submission
== END 2019-10-03 15:03 | disposition home or self-care (01) ==
LOC: ER 10:22
DX: R10.2 Pelvic and perineal pain (principal); R10.9 Unspecified abdominal pain; A59.9 Trichomoniasis, unspecified; B37.49 Other urogenital candidiasis; E11.9 Type 2 diabetes mellitus without complications
CPT/HCPCS: 36415; 80048; 80076; 81003; 81015; 81025; 82947; 83690; 85025; 87210; 87490; 87590; 99284

== ENCOUNTER 2019-10-09 13:48 | Emergency (ER) | payer OTHER ==
--- OUTSIDE RECORDS SUMMARY | 2019-10-09 13:50 | XMS REPORT ---
[...] Status Dosage System Date Date Dicyclomine HCl [facility] 31584251495 20 MG Orally May Active 1 tablet as Four times a 09, 19, needed for day 2018 2018 stomach pain Triamcinolone [facility] 04483435637 0.1 % April Active 1 application Acetonide Externally 28, to affected Twice a day 2019 areas Loratadine [facility] 16328290739 10 MG Orally Active 1 tablet Once a day Lisinopril [facility] 61891434676 5 MG Orally Active 1 tablet Once a day Farxiga ND 59607426371 5mg Orally May Active 1 tablet Once daily , 2018 Lactulose [facility] 40025127956 10 GM/15ML May Active 15-30 ml Orally Once to , twice a day as 2018 2018 needed for constipation BusPIRone HCl [facility] 40930242433 7.5 MG Orally April 18, Active 1 tablet as Twice a day 2018 needed for anxiety Vitamin D [facility] 70162657891 2000 UNIT Active 1 tablet Orally Once a day Atorvastatin [facility] 83606982367 10 MG Orally Active 1 tablet Calcium Once a day Orphenadrine [facility] [address]-48 100 MG Orally Active as directed Citrate ER Alogliptin [facility] 51224723806 25 MG Orally April Active 1 tablet Benzoate Once a day for , diabetes 2019 Pioglitazone HCl [facility] 24720151909 15 MG Orally May Active 1 tablet Once a day for 05, diabetes 2019 GlipiZIDE XL [facility] 30273616729 5 MG Orally Active 1 tablet with Once a day food Amoxicillin [facility] 34376140891 500 MG Orally Active 1 capsule Twice a day Meclizine HCl [facility] 28520207188 25 MG Orally April Active 1 tablet as Twice daily , needed for 2019 dizziness Results No Known Results Summary Purpose eClinicalWorks Submission
--- OUTSIDE RECORDS SUMMARY | 2019-10-09 13:50 | XMS REPORT ---
:1985 [facility] Address [address] [place] [address] [address] Care Team Providers Name Role Phone Unavailable [...]
--- OUTSIDE RECORDS SUMMARY | 2019-10-09 13:50 | XMS REPORT ---
[...] Start Date End Date Status Dosage Vernsharitahayde [facility] 69792630047 100 MG Orally Active 1 tablet Once a day Results No Known Results Summary Purpose eClinicalWorks Submission
--- OUTSIDE RECORDS SUMMARY | 2019-10-09 13:50 | XMS REPORT ---
[...] Status Dosage System Date Date Atorvastatin ND 02958943316 10 MG Orally Active 1 tablet Calcium Once a day Lisinopril ND 80575136669 5 MG Orally Active 1 tablet Once a day Dicyclomine HCl ND 85261433977 20 MG Orally May Active 1 tablet as Four times a 09, 19, needed for day 2018 2018 stomach pain Loratadine ND 34982317859 10 MG Orally Active 1 tablet Once a day Triamcinolone [facility] 28240668654 0.1 % April Active 1 application Acetonide Externally 28, to affected Twice a day 2019 areas GlipiZIDE XL [facility] 68170725276 5 MG Orally Active 1 tablet with Once a day food Pioglitazone HCl [facility] 60711761322 15 MG Orally May Active 1 tablet Once a day for , diabetes 2019 Amoxicillin [facility] 79725726349 500 MG Orally Active 1 capsule Twice a day Orphenadrine [facility] [address]-62 100 MG Orally Active as directed Citrate ER Alogliptin [facility] 12923728676 25 MG Orally April Active 1 tablet Benzoate Once a day for , diabetes 2019 Vitamin D [facility] 66448371180 2000 UNIT Active 1 tablet Orally Once a day BusPIRone HCl [facility] 39381047504 7.5 MG Orally April 18, Active 1 tablet as Twice a day 2019 needed for anxiety Meclizine HCl [facility] 52077898389 25 MG Orally April Active 1 tablet as Twice daily , needed for 2019 dizziness Results No Known Results Summary Purpose eClinicalWorks Submission
--- OUTSIDE RECORDS SUMMARY | 2019-10-09 13:50 | XMS REPORT ---
[...] End Status Dosage System Date Date Loratadine [facility] 63594250380 10 MG Orally Active 1 tablet Once a day Vitamin D [facility] 98698563354 2000 UNIT Active 1 tablet Orally Once a day Meclizine HCl ND 54029508057 25 MG Orally April Active 1 tablet as Twice daily 07, needed for 2019 dizziness Pioglitazone HCl ND 43047280747 15 MG Orally May Active 1 tablet Once a day for , diabetes 2019 Dicyclomine HCl [facility] 82880545330 20 MG Orally May Active 1 tablet as Four times a 09, 19, needed for day 2018 2019 stomach pain Atorvastatin ND 72018484633 10 MG Orally Active 1 tablet Calcium Once a day Lisinopril [facility] 50899832268 5 MG Orally Active 1 tablet Once a day Amoxicillin [facility] 78354870936 500 MG Orally Active 1 capsule Twice a day Alogliptin [facility] 22968523836 25 MG Orally April Active 1 tablet Benzoate Once a day for 28, diabetes 2018 GlipiZIDE XL [facility] 48269380806 5 MG Orally Active 1 tablet with Once a day food GlipiZIDE [facility] 62596266166 5 MG Orally May Active 1 tablet Once a day 2018 Triamcinolone [facility] 60769220989 0.1 % April Active 1 application Acetonide Externally , to affected Twice a day 2019 areas BusPIRone HCl [facility] 11159913184 7.5 MG Orally April 18, Active 1 tablet as Twice a day 2018 needed for anxiety Orphenadrine [facility] [address]-03 100 MG Orally Active as directed Citrate ER Results No Known Results Summary Purpose eClinicalWorks Submission
--- OUTSIDE RECORDS SUMMARY | 2019-10-09 13:50 | XMS REPORT ---
[...] Status Dosage System Date Date BusPIRone HCl [facility] 27585948345 7.5 MG Orally April 18, Active 1 tablet as Twice a day 2019 needed for anxiety Vitamin D ND 77508032059 2000 UNIT Active 1 tablet Orally Once a day Atorvastatin [facility] 46202967780 10 MG Orally Active 1 tablet Calcium Once a day Orphenadrine [facility] [address]-93 100 MG Orally Active as directed Citrate ER Meclizine HCl [facility] 22932167914 25 MG Orally April Active 1 tablet as Twice daily 07, needed for 2019 dizziness Lisinopril [facility] 89367779107 5 MG Orally Active 1 tablet Once a day Pioglitazone HCl [facility] 14599183961 15 MG Orally May Active 1 tablet Once a day for , diabetes 2019 Amoxicillin [facility] 58687994614 500 MG Orally Active 1 capsule Twice a day Loratadine [facility] 14414064138 10 MG Orally Active 1 tablet Once a day GlipiZIDE XL [facility] 24418488473 5 MG Orally Active 1 tablet with Once a day food Triamcinolone [facility] 09377311536 0.1 % April Active 1 application Acetonide Externally 28, to affected Twice a day 2019 areas Alogliptin [facility] 10466224872 25 MG Orally April Active 1 tablet Benzoate Once a day for , diabetes 2019 Results No Known Results Summary Purpose eClinicalWorks Submission
--- OUTSIDE RECORDS SUMMARY | 2019-10-09 13:50 | XMS REPORT ---
[...] End Status Dosage System Date Date Atorvastatin [facility] 41181384000 10 MG Orally Active 1 tablet Calcium Once a day Meclizine HCl [facility] 64839895037 25 MG Orally April Active 1 tablet as bid prn 07, needed 2019 Alogliptin [facility] 75774243452 25 MG Orally April Active 1 tablet Benzoate Once a day for 28, diabetes 2019 Amoxicillin [facility] 59189909353 500 MG Orally Active 1 capsule Twice a day Vitamin D [facility] 01732459325 2000 UNIT Active 1 tablet Orally Once a day Orphenadrine [facility] [address]-68 100 MG Orally Active as directed Citrate ER Lisinopril [facility] 21614298467 5 MG Orally Active 1 tablet Once a day GlipiZIDE XL [facility] 61561200536 5 MG Orally Active 1 tablet with Once a day food Januvia [facility] 96439442447 100 MG Orally Inactive 1 tablet Once a day Loratadine [facility] 91098069355 10 MG Orally Active 1 tablet Once a day BusPIRone HCl [facility] 84039553876 7.5 MG Orally April 18, Active 1 tablet as Twice a day 2018 needed for anxiety Triamcinolone [facility] 49707720029 0.1 % April Active 1 application Acetonide , to affected Twice a day 2019 areas Results No Known Results Summary Purpose eClinicalWorks Submission
--- OUTSIDE RECORDS SUMMARY | 2019-10-09 13:52 | XMS REPORT ---
:1985 [facility] Team Providers Name Role Phone [...] Status Dosage System Date Date Atorvastatin [facility] 33291723068 10 MG Orally Active 1 tablet Calcium Once a day Orphenadrine [facility] [address]-69 100 MG Orally Active as directed Citrate ER Amoxicillin [facility] 23688091223 500 MG Orally Active 1 capsule Twice a day Meclizine HCl [facility] 53350049511 25 MG Orally April Active 1 tablet as Twice daily , needed for 2019 dizziness BusPIRone HCl [facility] 63113457937 7.5 MG Orally April 18, Active 1 tablet as Twice a day 2018 needed for anxiety Loratadine [facility] 06620350251 10 MG Orally Active 1 tablet Once a day GlipiZIDE XL [facility] 80171507034 5 MG Orally Active 1 tablet with Once a day food Farxiga [facility] 58880459276 5mg Orally May Active 1 tablet Once daily 2018 2019 Pioglitazone HCl [facility] 61160956694 15 MG Orally May Active 1 tablet Once a day for 05, diabetes 2019 Alogliptin [facility] 13633672492 25 MG Orally April Active 1 tablet Benzoate Once a day for 28, diabetes 2019 Triamcinolone [facility] 32067094690 0.1 % April Active 1 application Acetonide Externally 28, to affected Twice a day 2019 areas Lisinopril [facility] 75308455592 5 MG Orally Active 1 tablet Once a day Vitamin D [facility] 34877486138 2000 UNIT Active 1 tablet Orally Once a day BELVIQ [facility] 41552495310 10 MG orally Jun 28Sep Active 1 tablet Twice a day 2018 Results No Known Results Summary Purpose eClinicalWorks Submission
[2019-10-09 14:49] LABS: Absolute Lymphocytes (CBC) 2.6 K/uL (0.7-4.9); Basophils % 0.4 % (0-1.3); Hematocrit 40.7 % (36.0-45.0); Lymphocytes % 30.6 % (15.3-44.8); MPV 8.7 fL (7.6-11.3); RBC Red Blood Cell Count 4.21 M/uL (3.86-4.86)
[2019-10-09 15:06] LABS: Albumin 3.9 g/dL (3.4-5.0); Bilirubin Direct 0.1 mg/dL (0-0.2); Bilirubin Total 0.6 mg/dL (0.2-1.0); Potassium 3.8 mmol/L (3.5-5.1)
[2019-10-09] MEDS ORDERED: ONDANSETRON 4 MG/2 ML VIAL ONE (15:43)
[2019-10-09] MEDS ORDERED: NA CHLORIDE 0.9% 1,000 ML ONE (15:43)
--- NOTE | 2019-10-09 15:50 | RAD REPORT ---
EXAM DESCRIPTION: CT - Abdomen Pelvis W Contrast - 10/09/2019 3:34 pm CLINICAL HISTORY: Abdominal pain COMPARISON: July 2019 TECHNIQUE: Computed axial tomography of the abdomen pelvis was obtained. 100 cc Isovue-300 was admin istered intravenously. Oral contrast was not requested which limits evaluation of bowel. All CT scans are performed using dose optimization technique as appropriate and may include automated exposure control or mA/KV adjustment according to patient size. FINDINGS: The liver, spleen, pancreas, adrenal and kidneys appear unremarkable. Cholecystectomy There is no evidence of diverticulitis. The appendix is upper limits normal size. 3 centimeter left ovarian cyst without significant free fluid Rectum is mildly distended with stool IMPRESSION: 3 centimeter left ovarian cyst without significant free fluid .
--- NOTE | 2019-10-09 15:56 | ER ---
Nurse's Notes [facility] Name: Mckenna Haney Age: 34 yrs Sex: Female : 1985 Arrival Date: 10/09/2019 Time: 13:48 Bed 18 Private MD: Diagnosis: Generalized abdominal pain;Other ovarian cysts Presentation: 10/09 14:07 Presenting complaint: Sharp RUQ pain, N/V, chills, headache, and fever x 2 days. TMAX hb 101.2. Transition of care: patient was not received from another setting of care. Onset of symptoms was October 08, 2019. Care prior to arrival: None. 14:07 Method Of Arrival: Ambulatory hb 14:07 Acuity: LILO 3 hb 14:10 Risk Assessment: Do you want to hurt yourself or someone else? Patient reports no bp desire to harm self or others. Initial Sepsis Screen: Does the patient meet any 2 criteria? No. Patient's initial sepsis screen is negative. Does the patient have a suspected source of infection? No. Patient's initial sepsis screen is negative. Triage Assessment: 14:05 General: Appears in no apparent distress. uncomfortable, Behavior is cooperative, bp appropriate for age, anxious. Pain: Complains of pain in right upper quadrant. EENT: No deficits noted. Neuro: No deficits noted. Cardiovascular: No deficits noted. Respiratory: No deficits noted. GI: Reports upper abdominal pain. : No signs and/or symptoms were reported regarding the genitourinary system. Derm: No deficits noted. Musculoskeletal: No deficits noted. 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 - Social history:: Smoking status: Patient/guardian denies using tobacco. - Ebola Screening: : No symptoms or risks identified at this time. Screenin:10 Abuse screen: Denies threats or abuse. Denies injuries from another. Nutritional bp screening: No deficits noted. Tuberculosis screening: No symptoms or risk factors identified. Fall Risk None identified. Assessment: 14:10 General: SEE TRIAGE NOTE. bp 14:53 Reassessment: ALL CURRENT ORDERS COMPLETED, RESULTS PENDING. bp 15:50 Reassessment: VS STABLE ON MONITOR, IVF INFUSING. bp 16:20 Reassessment: PT D/C HOME AMBULATORY, DX WITH OVARIAN CYST. bp Vital Signs: 14:08 BP 156 / 88; Pulse 80; Resp 16; Temp 98.3; Pulse Ox 100% on R/A; Weight 102.06 kg; hb Height 5 ft. 4 in. (162.56 cm); Pain 9/10; 14:52 BP 129 / 81; Pulse 85; Resp 17; Pulse Ox 100% ; bp 15:43 BP 141 / 79; Pulse 84; Resp 16; Temp 98.1(O); Pulse Ox 100% on R/A; mh5 16:20 BP 129 / 85; Pulse 80; Resp 16; Pulse Ox 100% ; bp 14:08 Body Mass Index 38.62 (102.06 kg, 162.56 cm) hb ED Course: 13:48 Patient arrived in ED. rg4 14:08 Triage completed. hb 14:08 Arm band placed on. hb 14:10 Jorge L Nunez, MARIN is Primary Nurse. bp 14:11 Clair Tadeo FNP-C is PHCP. kb 14:11 Prince Weber MD is Attending Physician. kb 14:39 Initial lab(s) drawn, by me, sent to lab. Urine collected: clean catch specimen, clear. mh5 Inserted saline lock: 22 gauge in left antecubital area, using aseptic technique. 14:40 Patient has correct armband on for positive identification. Bed in low position. Call mh5 light in reach. Side rails up X 1. Pulse ox on. NIBP on. 15:34 CT completed. Patient tolerated procedure well. Patient moved to CT. Patient moved back il from CT. 15:37 CT Abd/Pelvis - IV Contrast Only In Process Unspecified. EDMS 16:21 No provider procedures requiring assistance completed. IV discontinued, intact, bp bleeding controlled, No redness/swelling at site. Pressure dressing applied. Administered Medications: 15:20 Drug: NS 0.9% 1000 ml Route: IV; Rate: 1000 ml; Site: right antecubital; bp 16:22 Follow up: IV Status: Completed infusion; IV Intake: 1000ml bp 15:20 Drug: Zofran 4 mg Route: IVP; Site: right antecubital; bp 16:23 Follow up: Response: Nausea is decreased bp Intake: 16:22 IV: 1000ml; Total: 1000ml. bp Outcome: 15:54 Discharge ordered by . kanu 16:21 Discharged to home ambulatory. bp 16:21 Condition: stable 16:21 Discharge instructions given to patient, Instructed on discharge instructions, follow up and referral plans. medication usage, Demonstrated understanding of instructions, follow-up care, medications, Prescriptions given X 1. 16:22 Patient left the ED. bp Signatures: Dispatcher [employer] EDMS Clair Tadeo, DRAMATIC TEACHER-C DRAMATIC TEACHER-Ckb Domitila Banks, RN RN Fabiana Harrison 4 Gurdeep Villalobos [facility] Jorge L Nunez, MAIRN RN bp
--- NOTE | 2019-10-09 15:56 | EDPHYS ---
Physician Documentation [facility] Name: Mckenna Haney Age: 34 yrs Sex: Female : 1985 Arrival Date: 10/09/2019 Time: 13:48 Bed 18 Private MD: ED Physician Prince Weber HPI: 10/09 15:48 This 34 yrs old Female presents to ER via Ambulatory with complaints of kb Abdominal Pain. 15:48 The patient presents with abdominal pain in the right upper quadrant, right lower kb quadrant. Onset: The symptoms/episode began/occurred 3 day(s) ago. The symptoms do not radiate. Associated signs and symptoms: Pertinent positives: nausea, Pertinent negatives: diarrhea, fever, vomiting. The symptoms are described as constant. Modifying factors: The symptoms are alleviated by nothing, the symptoms are aggravated by nothing. Severity of pain: At its worst the pain was moderate in the emergency department the pain is unchanged. The patient has not experienced similar symptoms in the past. The patient has not recently seen a physician. 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 - Social history:: Smoking status: Patient/guardian denies using tobacco. - Ebola Screening: : No symptoms or risks identified at this time. ROS: 15:47 Constitutional: Negative for fever, chills, and weight loss, ENT: Negative for injury, kb pain, and discharge, Neck: Negative for injury, pain, and swelling, Cardiovascular: Negative for chest pain, palpitations, and edema, Respiratory: Negative for shortness of breath, cough, wheezing, and pleuritic chest pain, Back: Negative for injury and pain, : Negative for injury, bleeding, discharge, and swelling, MS/Extremity: Negative for injury and deformity, Skin: Negative for injury, rash, and discoloration, Neuro: Negative for headache, weakness, numbness, tingling, and seizure. 15:47 Abdomen/GI: Positive for abdominal pain, Negative for nausea, vomiting, and diarrhea, constipation, abdominal cramps, abdominal distension, anorexia. Exam: 15:47 Constitutional: This is a well developed, well nourished patient who is awake, alert, kb and in no acute distress. Head/Face: Normocephalic, atraumatic. ENT: Nares patent. No nasal discharge, no septal abnormalities noted. Tympanic membranes are normal and external auditory canals are clear. Oropharynx with no redness, swelling, or masses, exudates, or evidence of obstruction, uvula midline. Mucous membranes moist. Neck: Trachea midline, no thyromegaly or masses palpated, and no cervical lymphadenopathy. Supple, full range of motion without nuchal rigidity, or vertebral point tenderness. No Meningismus. Chest/axilla: Normal chest wall appearance and motion. Nontender with no deformity. No lesions are appreciated. Cardiovascular: Regular rate and rhythm with a normal S1 and S2. No gallops, murmurs, or rubs. Normal PMI, no JVD. No pulse deficits. Respiratory: Lungs have equal breath sounds bilaterally, clear to auscultation and percussion. No rales, rhonchi or wheezes noted. No increased work of breathing, no retractions or nasal flaring. Back: No spinal tenderness. No costovertebral tenderness. Full range of motion. Skin: Warm, dry with normal turgor. Normal color with no rashes, no lesions, and no evidence of cellulitis. MS/ Extremity: Pulses equal, no cyanosis. Neurovascular intact. Full, normal range of motion. Neuro: Awake and alert, GCS 15, oriented to person, place, time, and situation. Cranial nerves II-XII grossly intact. Motor strength 5/5 in all extremities. Sensory grossly intact. Cerebellar exam normal. Normal gait. 15:47 Abdomen/GI: Inspection: abdomen appears normal, Bowel sounds: normal, Palpation: soft, in all quadrants, moderate abdominal tenderness, in the right upper quadrant and right lower quadrant. Vital Signs: 14:08 BP 156 / 88; Pulse 80; Resp 16; Temp 98.3; Pulse Ox 100% on R/A; Weight 102.06 kg; hb Height 5 ft. 4 in. (162.56 cm); Pain 9/10; 14:52 BP 129 / 81; Pulse 85; Resp 17; Pulse Ox 100% ; bp 15:43 BP 141 / 79; Pulse 84; Resp 16; Temp 98.1(O); Pulse Ox 100% on R/A; mh5 16:20 BP 129 / 85; Pulse 80; Resp 16; Pulse Ox 100% ; bp 14:08 Body Mass Index 38.62 (102.06 kg, 162.56 cm) hb MDM: 14:11 Patient medically screened. kb 15:47 Data reviewed: vital signs, nurses notes. Data interpreted: Pulse oximetry: on room air kb is 100 %. Interpretation: normal. 15:54 Counseling: I had a detailed discussion with the patient and/or guardian regarding: the kb historical points, exam findings, and any diagnostic results supporting the discharge/admit diagnosis, lab results, radiology results, the need for outpatient follow up, a family practitioner, to return to the emergency department if symptoms worsen or persist or if there are any questions or concerns that arise at home. 10/09 14:11 Order name: Basic Metabolic Panel; Complete Time: 15:08 kb 10/09 14:11 Order name: CBC with Diff; Complete Time: 14:51 kb 10/09 14:11 Order name: Hepatic Function; Complete Time: 15:08 kb 10/09 14:11 Order name: Lipase; Complete Time: 15:08 kb 10/09 14:31 Order name: Urine Dipstick--Ancillary (enter results) bd 10/09 14:31 Order name: Urine --Ancillary (enter results) bd 10/09 14:11 Order name: IV Saline Lock; Complete Time: 14:52 kb 10/09 14:11 Order name: Labs collected and sent; Complete Time: 14:52 kb 10/09 15:08 Order name: CT Abd/Pelvis - IV Contrast Only; Complete Time: 15:53 kb Administered Medications: 15:20 Drug: NS 0.9% 1000 ml Route: IV; Rate: 1000 ml; Site: right antecubital; bp 16:22 Follow up: IV Status: Completed infusion; IV Intake: 1000ml bp 15:20 Drug: Zofran 4 mg Route: IVP; Site: right antecubital; bp 16:23 Follow up: Response: Nausea is decreased bp Disposition: 10/09/19 15:54 Discharged to Home. Impression: Generalized abdominal pain, Other ovarian cysts. - Condition is Stable. - Discharge Instructions: Abdominal Pain, Adult, [id number], Ovarian Cyst, Vprf-[id number]-Yezl. - Prescriptions for Zofran 4 mg Oral Tablet - take 1 tablet by ORAL route every 6 hours As needed; 20 tablet. - Medication Reconciliation Form, Thank You Letter, Antibiotic Education, Prescription Opioid Use, Work release form form. - Follow up: Emergency Department; When: As needed; Reason: Worsening of condition. Follow up: Private Physician; When: 2 - 3 days; Reason: Recheck today's complaints, Continuance of care, Re-evaluation by your physician. Addendum: 10/12/2019 19:33 Co-signature as Attending Physician, Prince Weber MD. r n Signatures: Dispatcher [employer] EDMS Clair Tadeo, CURRENCY MACHINE OPERATOR-C CURRENCY MACHINE OPERATOR-Ckb Prince Weber MD MD rn Baxter, Heather, RN RN hb Peltier, Brian, RN RN bp Corrections: (The following items were deleted from the chart) 10/09 15:55 15:54 10/09/2019 15:54 Discharged to Home. Impression: Generalized abdominal pain; kb Ovarian dysfunction, unspecified. Condition is Stable. Forms are Medication Reconciliation Form, Thank You Letter, Antibiotic Education, Prescription Opioid Use. Follow up: Emergency Department; When: As needed; Reason: Worsening of condition. Follow up: Private Physician; When: 2 - 3 days; Reason: Recheck today's complaints, Continuance of care, Re-evaluation by your physician. kb 16:22 15:55 10/09/2019 15:54 Discharged to Home. Impression: Generalized abdominal pain; bp Other ovarian cysts. Condition is Stable. Forms are Medication Reconciliation Form, Thank You Letter, Antibiotic Education, Prescription Opioid Use. Follow up: Emergency Department; When: As needed; Reason: Worsening of condition. Follow up: Private Physician; When: 2 - 3 days; Reason: Recheck today's complaints, Continuance of care, Re-evaluation by your physician. kb
[2019-10-09 16:42] VITALS: O2SAT 100
[2019-10-09 16:44] VITALS: TEMP 98.1
[2019-10-09 16:46] VITALS: BP 129/85
[2019-10-09 17:42] LABS: Urine Blood NEGATIVE (NEG); Urine Glucose NEGATIVE (NEG); Urine Protein NEGATIVE (NEG); Urine Specific Gravity 1.015 (1.005-1.030); Urine pH 7.5 (5.0-7.0)
== END 2019-10-09 16:22 | disposition home or self-care (01) ==
LOC: ER 13:48
DX: R10.84 Generalized abdominal pain (principal); N83.202 Unspecified ovarian cyst, left side; Z88.6 Allergy status to analgesic agent
CPT/HCPCS: 96361; 85025; 80048; 36415; 81025; 80076; 81003; 83690; 74177; 96374; 99284; Q9967; J7030; J2405

== ENCOUNTER 2019-10-11 10:40 | Emergency (ER) | payer OTHER ==
--- OUTSIDE RECORDS SUMMARY | 2019-10-11 10:42 | XMS REPORT ---
:1985 [facility] Address [address] [place] [address] [address] Care Team Providers Name Role Phone Unavailable [...]
--- OUTSIDE RECORDS SUMMARY | 2019-10-11 10:42 | XMS REPORT ---
[...] Start Date End Date Status Dosage Vernsharitahayde [facility] 69038949018 100 MG Orally Active 1 tablet Once a day Results No Known Results Summary Purpose eClinicalWorks Submission
--- OUTSIDE RECORDS SUMMARY | 2019-10-11 10:42 | XMS REPORT ---
[...] Status Dosage System Date Date Atorvastatin [facility] 45306272803 10 MG Orally Active 1 tablet Calcium Once a day Meclizine HCl [facility] 66445909594 25 MG Orally April Active 1 tablet as bid prn 07, needed 2019 Alogliptin [facility] 86244817793 25 MG Orally April Active 1 tablet Benzoate Once a day for 28, diabetes 2019 Amoxicillin [facility] 53956387756 500 MG Orally Active 1 capsule Twice a day Vitamin D [facility] 87382029192 2000 UNIT Active 1 tablet Orally Once a day Orphenadrine [facility] [address]-55 100 MG Orally Active as directed Citrate ER Lisinopril [facility] 68638543723 5 MG Orally Active 1 tablet Once a day GlipiZIDE XL [facility] 55035701962 5 MG Orally Active 1 tablet with Once a day food Januvia [facility] 35117711343 100 MG Orally Inactive 1 tablet Once a day Loratadine [facility] 64989378638 10 MG Orally Active 1 tablet Once a day BusPIRone HCl [facility] 05170252303 7.5 MG Orally April 18, Active 1 tablet as Twice a day 2018 needed for anxiety Triamcinolone [facility] 72059698154 0.1 % April Active 1 application Acetonide , to affected Twice a day 2019 areas Results No Known Results Summary Purpose eClinicalWorks Submission
--- OUTSIDE RECORDS SUMMARY | 2019-10-11 10:43 | XMS REPORT ---
[...] End Status Dosage System Date Date Loratadine [facility] 61902750041 10 MG Orally Active 1 tablet Once a day Vitamin D [facility] 23944276168 2000 UNIT Active 1 tablet Orally Once a day Meclizine HCl ND 06916122134 25 MG Orally April Active 1 tablet as Twice daily 07, needed for 2019 dizziness Pioglitazone HCl ND 32605997108 15 MG Orally May Active 1 tablet Once a day for , diabetes 2019 Dicyclomine HCl [facility] 55536468548 20 MG Orally May Active 1 tablet as Four times a 09, 19, needed for day 2018 2019 stomach pain Atorvastatin ND 99162124955 10 MG Orally Active 1 tablet Calcium Once a day Lisinopril [facility] 58349378513 5 MG Orally Active 1 tablet Once a day Amoxicillin [facility] 99848809575 500 MG Orally Active 1 capsule Twice a day Alogliptin [facility] 93373697361 25 MG Orally April Active 1 tablet Benzoate Once a day for 28, diabetes 2018 GlipiZIDE XL [facility] 38496621727 5 MG Orally Active 1 tablet with Once a day food GlipiZIDE [facility] 27987908616 5 MG Orally May Active 1 tablet Once a day 2018 Triamcinolone [facility] 31296322289 0.1 % April Active 1 application Acetonide Externally , to affected Twice a day 2019 areas BusPIRone HCl [facility] 14864147751 7.5 MG Orally April 18, Active 1 tablet as Twice a day 2018 needed for anxiety Orphenadrine [facility] [address]-13 100 MG Orally Active as directed Citrate ER Results No Known Results Summary Purpose eClinicalWorks Submission
--- OUTSIDE RECORDS SUMMARY | 2019-10-11 10:43 | XMS REPORT ---
[...] Status Dosage System Date Date Dicyclomine HCl [facility] 78482539960 20 MG Orally May Active 1 tablet as Four times a 09, 19, needed for day 2018 2018 stomach pain Triamcinolone [facility] 58115683099 0.1 % April Active 1 application Acetonide Externally 28, to affected Twice a day 2019 areas Loratadine [facility] 04411068550 10 MG Orally Active 1 tablet Once a day Lisinopril [facility] 32215720279 5 MG Orally Active 1 tablet Once a day Farxiga ND 93457829907 5mg Orally May Active 1 tablet Once daily , 2018 Lactulose [facility] 77787151871 10 GM/15ML May Active 15-30 ml Orally Once to , twice a day as 2018 2018 needed for constipation BusPIRone HCl [facility] 74375734961 7.5 MG Orally April 18, Active 1 tablet as Twice a day 2018 needed for anxiety Vitamin D [facility] 31409504783 2000 UNIT Active 1 tablet Orally Once a day Atorvastatin [facility] 83055264579 10 MG Orally Active 1 tablet Calcium Once a day Orphenadrine [facility] [address]-35 100 MG Orally Active as directed Citrate ER Alogliptin [facility] 13462296534 25 MG Orally April Active 1 tablet Benzoate Once a day for , diabetes 2019 Pioglitazone HCl [facility] 88139637248 15 MG Orally May Active 1 tablet Once a day for 05, diabetes 2019 GlipiZIDE XL [facility] 59693372090 5 MG Orally Active 1 tablet with Once a day food Amoxicillin [facility] 58608770974 500 MG Orally Active 1 capsule Twice a day Meclizine HCl [facility] 70723752326 25 MG Orally April Active 1 tablet as Twice daily , needed for 2019 dizziness Results No Known Results Summary Purpose eClinicalWorks Submission
--- OUTSIDE RECORDS SUMMARY | 2019-10-11 10:43 | XMS REPORT ---
[...] Status Dosage System Date Date BusPIRone HCl [facility] 00688034357 7.5 MG Orally April 18, Active 1 tablet as Twice a day 2019 needed for anxiety Vitamin D ND 68014048208 2000 UNIT Active 1 tablet Orally Once a day Atorvastatin [facility] 96044118796 10 MG Orally Active 1 tablet Calcium Once a day Orphenadrine [facility] [address]-78 100 MG Orally Active as directed Citrate ER Meclizine HCl [facility] 03358844410 25 MG Orally April Active 1 tablet as Twice daily 07, needed for 2019 dizziness Lisinopril [facility] 72553455919 5 MG Orally Active 1 tablet Once a day Pioglitazone HCl [facility] 73039530561 15 MG Orally May Active 1 tablet Once a day for , diabetes 2019 Amoxicillin [facility] 40305866594 500 MG Orally Active 1 capsule Twice a day Loratadine [facility] 46502816328 10 MG Orally Active 1 tablet Once a day GlipiZIDE XL [facility] 42114983081 5 MG Orally Active 1 tablet with Once a day food Triamcinolone [facility] 66562612567 0.1 % April Active 1 application Acetonide Externally 28, to affected Twice a day 2019 areas Alogliptin [facility] 36908019727 25 MG Orally April Active 1 tablet Benzoate Once a day for , diabetes 2019 Results No Known Results Summary Purpose eClinicalWorks Submission
--- OUTSIDE RECORDS SUMMARY | 2019-10-11 10:43 | XMS REPORT ---
[...] Status Dosage System Date Date Atorvastatin ND 01260801216 10 MG Orally Active 1 tablet Calcium Once a day Lisinopril ND 11201390497 5 MG Orally Active 1 tablet Once a day Dicyclomine HCl ND 64621910299 20 MG Orally May Active 1 tablet as Four times a 09, 19, needed for day 2018 2018 stomach pain Loratadine ND 48750480931 10 MG Orally Active 1 tablet Once a day Triamcinolone [facility] 54104340122 0.1 % April Active 1 application Acetonide Externally 28, to affected Twice a day 2019 areas GlipiZIDE XL [facility] 59566794070 5 MG Orally Active 1 tablet with Once a day food Pioglitazone HCl [facility] 66076410448 15 MG Orally May Active 1 tablet Once a day for , diabetes 2019 Amoxicillin [facility] 07893145606 500 MG Orally Active 1 capsule Twice a day Orphenadrine [facility] [address]-80 100 MG Orally Active as directed Citrate ER Alogliptin [facility] 16598199456 25 MG Orally April Active 1 tablet Benzoate Once a day for , diabetes 2019 Vitamin D [facility] 92467850737 2000 UNIT Active 1 tablet Orally Once a day BusPIRone HCl [facility] 41673793311 7.5 MG Orally April 18, Active 1 tablet as Twice a day 2019 needed for anxiety Meclizine HCl [facility] 28592145146 25 MG Orally April Active 1 tablet as Twice daily , needed for 2019 dizziness Results No Known Results Summary Purpose eClinicalWorks Submission
--- OUTSIDE RECORDS SUMMARY | 2019-10-11 10:44 | XMS REPORT ---
:1985 [facility] Team Providers Name Role Phone [...] End Status Dosage System Date Date Atorvastatin [facility] 05020937382 10 MG Orally Active 1 tablet Calcium Once a day Orphenadrine [facility] [address]-68 100 MG Orally Active as directed Citrate ER Amoxicillin [facility] 76528675099 500 MG Orally Active 1 capsule Twice a day Meclizine HCl [facility] 58378027933 25 MG Orally April Active 1 tablet as Twice daily , needed for 2019 dizziness BusPIRone HCl [facility] 48063191549 7.5 MG Orally April 18, Active 1 tablet as Twice a day 2018 needed for anxiety Loratadine [facility] 80712125212 10 MG Orally Active 1 tablet Once a day GlipiZIDE XL [facility] 03154926232 5 MG Orally Active 1 tablet with Once a day food Farxiga [facility] 28646377176 5mg Orally May Active 1 tablet Once daily 2018 2019 Pioglitazone HCl [facility] 56551303502 15 MG Orally May Active 1 tablet Once a day for 05, diabetes 2019 Alogliptin [facility] 71155519478 25 MG Orally April Active 1 tablet Benzoate Once a day for 28, diabetes 2019 Triamcinolone [facility] 50506160436 0.1 % April Active 1 application Acetonide Externally 28, to affected Twice a day 2019 areas Lisinopril [facility] 65256695315 5 MG Orally Active 1 tablet Once a day Vitamin D [facility] 20927607482 2000 UNIT Active 1 tablet Orally Once a day BELVIQ [facility] 30476788058 10 MG orally Jun 28Sep Active 1 tablet Twice a day 2018 Results No Known Results Summary Purpose eClinicalWorks Submission
--- NOTE | 2019-10-11 14:54 | RAD REPORT ---
EXAM DESCRIPTION: CT - Head Brain Wo Cont - 10/11/2019 2:47 pm CLINICAL HISTORY: HEADACHE Headache, drowsiness COMPARISON: No comparisons TECHNIQUE: All CT scans are performed using dose optimization technique as appropriate and may inclu de automated exposure control or mA/KV adjustment according to patient size. FINDINGS: No intracranial hemorrhage, hydrocephalus or extra-axial fluid collection.No areas of brai n edema or evidence of midline shift. The paranasal sinuses and mastoids are clear. The calvarium is intact. IMPRESSION: No acute intracranial abnormality.
--- NOTE | 2019-10-11 15:05 | ER ---
Nurse's Notes [facility] Name: Mckenna Haney Age: 34 yrs Sex: Female : 1985 Arrival Date: 10/11/2019 Time: 10:41 Bed 12 Private MD: Diagnosis: Headache Presentation: 10/11 11:24 Presenting complaint: Patient states: i have been having a headache when i wake up in tw2 the morning, everyday for 3 weeks, but its only like when i wake up, when i am laying down and i dont have it, and i feel tired from my legs all the time. Transition of care: patient was not received from another setting of care. Onset of symptoms was October 11, 2019. Risk Assessment: Do you want to hurt yourself or someone else? Patient reports no desire to harm self or others. Initial Sepsis Screen: Does the patient meet any 2 criteria? No. Patient's initial sepsis screen is negative. Does the patient have a suspected source of infection? No. Patient's initial sepsis screen is negative. Care prior to arrival: None. 11:24 Method Of Arrival: Ambulatory tw2 11:24 Acuity: LILO 3 tw2 Triage Assessment: 11:30 Headache History: The patient has had previous headaches and this one is different than tw2 previous episodes, and this one is more severe than previous episodes. General: Appears in no apparent distress. Behavior is calm, cooperative, appropriate for age. Pain: Pain currently is 10 out of 10 on a pain scale. Pain began 2-3 weeks now Also complains of nausea, photophobia. Neuro: Reports headache. 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 tw2 Historical: - Allergies: 11:30 Ibuprofen (Hives); tw2 - Home Meds: 11:30 metronidazole 500 mg Oral tab 1 tab every 6 hours [Active]; amoxicillin 500 mg Oral tab tw2 1 tab every 12 hours [Active]; medroxyprogesterone 10 mg Oral tab 1 tab once daily [Active]; glyburide 5 mg Oral tab 1 tab once daily [Active]; meclizine 25 mg Oral tab 1 tab 3 times per day [Active]; cyclobenzaprine 7.5 mg Oral tab 1 tab 3 times per day [Active]; buspirone 7.5 mg Oral tab 1 tab 2 times per day [Active]; hydroxyzine HCl 50 mg Oral tab 1 tab 4 times per day [Active]; - PMHx: 11:30 Diabetes - NIDDM; High Cholesterol; Hypertension; Ovarian cyst; tw2 - PSHx: 11:30 Cholecystectomy; tw2 - Immunization history:: Adult Immunizations. - Social history:: Smoking status: . - Ebola Screening: : Patient denies travel to an Ebola-affected area in the 21 days before illness onset. Screenin:06 Abuse screen: Denies threats or abuse. Denies injuries from another. Nutritional ss screening: No deficits noted. Tuberculosis screening: Never had TB. Fall Risk None identified. Assessment: 14:06 General: Appears in no apparent distress. Behavior is calm, cooperative. Neuro: Level ss of Consciousness is awake, alert, obeys commands, Oriented to person, place, time, situation. Respiratory: Respiratory effort is even, unlabored. EENT: Oral mucosa is moist. Derm: Skin is pink, warm \T\ dry. normal. Musculoskeletal: Circulation, motion, and sensation intact. Range of motion: intact in all extremities, Swelling absent. Vital Signs: 11:30 BP 131 / 97; Pulse 99; Resp 17; Temp 98.5(O); Pulse Ox 99% on R/A; Weight 102.06 kg tw2 (R); Height 5 ft. 4 in. (162.56 cm); Pain 10/10; 11:30 Body Mass Index 38.62 (102.06 kg, 162.56 cm) tw2 Nicholas Coma Score: 15:03 Eye Response: spontaneous(4). Verbal Response: oriented(5). Motor Response: obeys kb commands(6). Total: 15. ED Course: 10:41 Patient arrived in ED. as 11:26 Triage completed. tw2 11:30 Arm band placed on. tw2 13:51 Clair [facility]C [facility] kb 13:51 David Gabriel MD is Attending Physician. kb 14:02 [place] Siddiqi, MARIN is Primary Nurse. ss 14:06 Patient has correct armband on for positive identification. Bed in low position. Call ss light in reach. 14:47 CT completed. Patient tolerated procedure well. Patient moved to CT via wheelchair. md1 Patient moved back from CT. 14:49 CT Head Brain wo Cont In Process Unspecified. EDMS 15:12 No provider procedures requiring assistance completed. Patient did not have IV access tw2 during this emergency room visit. Administered Medications: No medications were administered Outcome: 15:04 Discharge ordered by . kanu 15:12 Discharged to home ambulatory. tw2 15:12 Condition: stable 15:12 Discharge instructions given to patient, Instructed on discharge instructions, follow up and referral plans. Demonstrated understanding of instructions, follow-up care. 15:13 Patient left the ED. tw2 Signatures: Dispatcher [employer] EDMS Clair Tadeo, PRE SALES TECHNICAL CONSULTANT-C PRE SALES TECHNICAL CONSULTANT-Vandana Egan Shelby, MARIN RN ss Oriana Chong RN RN tw2 Radha Reyes md1
--- NOTE | 2019-10-11 15:05 | EDPHYS ---
Physician Documentation [facility] Name: Mckenna Haney Age: 34 yrs Sex: Female : 1985 Arrival Date: 10/11/2019 Time: 10:41 Bed 12 Private MD: ED Physician David Gabriel HPI: 10/11 14:32 This 34 yrs old Female presents to ER via Ambulatory with complaints of kb Headache, Dizziness. 14:32 The patient complains of pain to the forehead. The patient describes the headache as kb intermittent. Onset: The symptoms/episode began/occurred 3 week(s) ago. Associated signs and symptoms: Pertinent positives: dizziness. Severity of symptoms: At its worst the pain was moderate, in the emergency department the pain has resolved. Headache History: The patient has had previous headaches. The symptoms are alleviated by nothing. the symptoms are aggravated by nothing. The patient has experienced similar episodes in the past. The patient has been recently seen at the [facility], this week, for unrelated complaints. Pt reports headache upon waking every morning for 3 weeks. States she has dizziness with it as well. No relief with tylenol and she cannot take advil due to allergy.. 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 tw2 Historical: - Allergies: 11:30 Ibuprofen (Hives); tw2 - Home Meds: 11:30 metronidazole 500 mg Oral tab 1 tab every 6 hours [Active]; amoxicillin 500 mg Oral tab tw2 1 tab every 12 hours [Active]; medroxyprogesterone 10 mg Oral tab 1 tab once daily [Active]; glyburide 5 mg Oral tab 1 tab once daily [Active]; meclizine 25 mg Oral tab 1 tab 3 times per day [Active]; cyclobenzaprine 7.5 mg Oral tab 1 tab 3 times per day [Active]; buspirone 7.5 mg Oral tab 1 tab 2 times per day [Active]; hydroxyzine HCl 50 mg Oral tab 1 tab 4 times per day [Active]; - PMHx: 11:30 Diabetes - NIDDM; High Cholesterol; Hypertension; Ovarian cyst; tw2 - PSHx: 11:30 Cholecystectomy; tw2 - Immunization history:: Adult Immunizations. - Social history:: Smoking status: . - Ebola Screening: : Patient denies travel to an Ebola-affected area in the 21 days before illness onset. ROS: 15:12 Constitutional: Negative for fever, chills, and weight loss, ENT: Negative for injury, kb pain, and discharge, Neck: Negative for injury, pain, and swelling, Cardiovascular: Negative for chest pain, palpitations, and edema, Respiratory: Negative for shortness of breath, cough, wheezing, and pleuritic chest pain, Abdomen/GI: Negative for abdominal pain, nausea, vomiting, diarrhea, and constipation, Back: Negative for injury and pain, MS/Extremity: Negative for injury and deformity, Skin: Negative for injury, rash, and discoloration. 15:12 Neuro: Positive for dizziness, headache. Exam: 15:12 Constitutional: This is a well developed, well nourished patient who is awake, alert, kb and in no acute distress. Head/Face: Normocephalic, atraumatic. ENT: Nares patent. No nasal discharge, no septal abnormalities noted. Tympanic membranes are normal and external auditory canals are clear. Oropharynx with no redness, swelling, or masses, exudates, or evidence of obstruction, uvula midline. Mucous membranes moist. Neck: Trachea midline, no thyromegaly or masses palpated, and no cervical lymphadenopathy. Supple, full range of motion without nuchal rigidity, or vertebral point tenderness. No Meningismus. Chest/axilla: Normal chest wall appearance and motion. Nontender with no deformity. No lesions are appreciated. Cardiovascular: Regular rate and rhythm with a normal S1 and S2. No gallops, murmurs, or rubs. Normal PMI, no JVD. No pulse deficits. Respiratory: Lungs have equal breath sounds bilaterally, clear to auscultation and percussion. No rales, rhonchi or wheezes noted. No increased work of breathing, no retractions or nasal flaring. Abdomen/GI: Soft, non-tender, with normal bowel sounds. No distension or tympany. No guarding or rebound. No evidence of tenderness throughout. Skin: Warm, dry with normal turgor. Normal color with no rashes, no lesions, and no evidence of cellulitis. MS/ Extremity: Pulses equal, no cyanosis. Neurovascular intact. Full, normal range of motion. Neuro: Awake and alert, GCS 15, oriented to person, place, time, and situation. Cranial nerves II-XII grossly intact. Motor strength 5/5 in all extremities. Sensory grossly intact. Cerebellar exam normal. Normal gait. Vital Signs: 11:30 BP 131 / 97; Pulse 99; Resp 17; Temp 98.5(O); Pulse Ox 99% on R/A; Weight 102.06 kg tw2 (R); Height 5 ft. 4 in. (162.56 cm); Pain 10/10; 11:30 Body Mass Index 38.62 (102.06 kg, 162.56 cm) tw2 Vian Coma Score: 15:03 Eye Response: spontaneous(4). Verbal Response: oriented(5). Motor Response: obeys kb commands(6). Total: 15. MDM: 13:51 Patient medically screened. kb 15:03 Data reviewed: vital signs, nurses notes. Data interpreted: Pulse oximetry: on room air kb is 99 %. Interpretation: normal. Counseling: I had a detailed discussion with the patient and/or guardian regarding: the historical points, exam findings, and any diagnostic results supporting the discharge/admit diagnosis, radiology results, the need for outpatient follow up, a family practitioner, a neurologist, to return to the emergency department if symptoms worsen or persist or if there are any questions or concerns that arise at home. 10/11 14:36 Order name: CT Head Brain wo Cont; Complete Time: 15:03 kb Administered Medications: No medications were administered Disposition: 10/11/19 15:04 Discharged to Home. Impression: Headache. - Condition is Stable. - Discharge Instructions: General Headache Without Cause, [id number]. - Medication Reconciliation Form, Thank You Letter, Antibiotic Education, Prescription Opioid Use form. - Follow up: Emergency Department; When: As needed; Reason: Worsening of condition. Follow up: Private Physician; When: 2 - 3 days; Reason: Recheck today's complaints, Continuance of care, Re-evaluation by your physician. Addendum: 10/15/2019 06:25 Co-signature as Attending Physician, David Gabriel MD I agree with the assessment and k dr plan of care. Signatures: Dispatcher [employer] EDMD Clair Tadeo, KEISHAC GABI-David Lynn MD MD [facility] Chong, Oriana, RN RN tw2 Corrections: (The following items were deleted from the chart) 10/11 15:13 15:04 10/11/2019 15:04 Discharged to Home. Impression: Headache. Condition is Stable. tw2 Forms are Medication Reconciliation Form, Thank You Letter, Antibiotic Education, Prescription Opioid Use. Follow up: Emergency Department; When: As needed; Reason: Worsening of condition. Follow up: Private Physician; When: 2 - 3 days; Reason: Recheck today's complaints, Continuance of care, Re-evaluation by your physician. kb
[2019-10-11 15:42] VITALS: BP 131/97; TEMP 98.5; O2SAT 99
== END 2019-10-11 15:13 | disposition home or self-care (01) ==
LOC: ER 10:40
DX: R51 Headache (principal); E11.9 Type 2 diabetes mellitus without complications; E78.00 Pure hypercholesterolemia, unspecified; I10 Essential (primary) hypertension
CPT/HCPCS: 70450; 99284

== ENCOUNTER 2020-01-22 17:27 | Emergency (ER) | payer OTHER ==
--- OUTSIDE RECORDS SUMMARY | 2020-01-22 17:29 | XMS REPORT ---
[...] End Status Dosage System Date Date Atorvastatin [facility] 84239039939 10 MG Orally Active 1 tablet Calcium Once a day Meclizine HCl [facility] 88030715490 25 MG Orally April Active 1 tablet as bid prn 07, needed 2019 Alogliptin [facility] 38066080764 25 MG Orally April Active 1 tablet Benzoate Once a day for 28, diabetes 2019 Amoxicillin [facility] 42756516783 500 MG Orally Active 1 capsule Twice a day Vitamin D [facility] 68817197439 2000 UNIT Active 1 tablet Orally Once a day Orphenadrine [facility] [address]-95 100 MG Orally Active as directed Citrate ER Lisinopril [facility] 53579699170 5 MG Orally Active 1 tablet Once a day GlipiZIDE XL [facility] 56064998607 5 MG Orally Active 1 tablet with Once a day food Januvia [facility] 49603916477 100 MG Orally Inactive 1 tablet Once a day Loratadine [facility] 56173355599 10 MG Orally Active 1 tablet Once a day BusPIRone HCl [facility] 23226490596 7.5 MG Orally April 18, Active 1 tablet as Twice a day 2018 needed for anxiety Triamcinolone [facility] 91576412229 0.1 % April Active 1 application Acetonide , to affected Twice a day 2019 areas Results No Known Results Summary Purpose eClinicalWorks Submission
--- OUTSIDE RECORDS SUMMARY | 2020-01-22 17:29 | XMS REPORT ---
:1985 [facility] Address [address] [place] [address] [address] [address] Care Team Providers Name Role Phone Unavailable [...]
--- OUTSIDE RECORDS SUMMARY | 2020-01-22 17:29 | XMS REPORT ---
[...] Start Date End Date Status Dosage Vernsharitahayde [facility] 82958498489 100 MG Orally Active 1 tablet Once a day Results No Known Results Summary Purpose eClinicalWorks Submission
--- OUTSIDE RECORDS SUMMARY | 2020-01-22 17:30 | XMS REPORT ---
[...] Status Dosage System Date Date Atorvastatin ND 84221892924 10 MG Orally Active 1 tablet Calcium Once a day Lisinopril ND 18712051619 5 MG Orally Active 1 tablet Once a day Dicyclomine HCl ND 25221318064 20 MG Orally May Active 1 tablet as Four times a 09, 19, needed for day 2018 2018 stomach pain Loratadine ND 04465367649 10 MG Orally Active 1 tablet Once a day Triamcinolone [facility] 37628487684 0.1 % April Active 1 application Acetonide Externally 28, to affected Twice a day 2019 areas GlipiZIDE XL [facility] 20343604549 5 MG Orally Active 1 tablet with Once a day food Pioglitazone HCl [facility] 19666618669 15 MG Orally May Active 1 tablet Once a day for , diabetes 2019 Amoxicillin [facility] 24312523982 500 MG Orally Active 1 capsule Twice a day Orphenadrine [facility] [address]-46 100 MG Orally Active as directed Citrate ER Alogliptin [facility] 94621519068 25 MG Orally April Active 1 tablet Benzoate Once a day for , diabetes 2019 Vitamin D [facility] 14949149837 2000 UNIT Active 1 tablet Orally Once a day BusPIRone HCl [facility] 04676906391 7.5 MG Orally April 18, Active 1 tablet as Twice a day 2019 needed for anxiety Meclizine HCl [facility] 79973759108 25 MG Orally April Active 1 tablet as Twice daily , needed for 2019 dizziness Results No Known Results Summary Purpose eClinicalWorks Submission
--- OUTSIDE RECORDS SUMMARY | 2020-01-22 17:30 | XMS REPORT ---
[...] Status Dosage System Date Date BusPIRone HCl [facility] 88661492811 7.5 MG Orally April 18, Active 1 tablet as Twice a day 2019 needed for anxiety Vitamin D ND 51960824347 2000 UNIT Active 1 tablet Orally Once a day Atorvastatin [facility] 30795792289 10 MG Orally Active 1 tablet Calcium Once a day Orphenadrine [facility] [address]-77 100 MG Orally Active as directed Citrate ER Meclizine HCl [facility] 81051217142 25 MG Orally April Active 1 tablet as Twice daily 07, needed for 2019 dizziness Lisinopril [facility] 76551337270 5 MG Orally Active 1 tablet Once a day Pioglitazone HCl [facility] 82982474705 15 MG Orally May Active 1 tablet Once a day for , diabetes 2019 Amoxicillin [facility] 15613251836 500 MG Orally Active 1 capsule Twice a day Loratadine [facility] 08179998044 10 MG Orally Active 1 tablet Once a day GlipiZIDE XL [facility] 01164416982 5 MG Orally Active 1 tablet with Once a day food Triamcinolone [facility] 60260930891 0.1 % April Active 1 application Acetonide Externally 28, to affected Twice a day 2019 areas Alogliptin [facility] 01910297991 25 MG Orally April Active 1 tablet Benzoate Once a day for , diabetes 2019 Results No Known Results Summary Purpose eClinicalWorks Submission
--- OUTSIDE RECORDS SUMMARY | 2020-01-22 17:30 | XMS REPORT ---
[...] Status Dosage System Date Date Loratadine [facility] 73189714910 10 MG Orally Active 1 tablet Once a day Vitamin D [facility] 25332682985 2000 UNIT Active 1 tablet Orally Once a day Meclizine HCl ND 83899523387 25 MG Orally April Active 1 tablet as Twice daily 07, needed for 2019 dizziness Pioglitazone HCl ND 46769232964 15 MG Orally May Active 1 tablet Once a day for , diabetes 2019 Dicyclomine HCl [facility] 03147977376 20 MG Orally May Active 1 tablet as Four times a 09, 19, needed for day 2018 2019 stomach pain Atorvastatin ND 77285459371 10 MG Orally Active 1 tablet Calcium Once a day Lisinopril [facility] 94782374461 5 MG Orally Active 1 tablet Once a day Amoxicillin [facility] 05440614976 500 MG Orally Active 1 capsule Twice a day Alogliptin [facility] 43082302429 25 MG Orally April Active 1 tablet Benzoate Once a day for 28, diabetes 2018 GlipiZIDE XL [facility] 53870606460 5 MG Orally Active 1 tablet with Once a day food GlipiZIDE [facility] 03598902800 5 MG Orally May Active 1 tablet Once a day 2018 Triamcinolone [facility] 34270250673 0.1 % April Active 1 application Acetonide Externally , to affected Twice a day 2019 areas BusPIRone HCl [facility] 88426099050 7.5 MG Orally April 18, Active 1 tablet as Twice a day 2018 needed for anxiety Orphenadrine [facility] [address]-36 100 MG Orally Active as directed Citrate ER Results No Known Results Summary Purpose eClinicalWorks Submission
--- OUTSIDE RECORDS SUMMARY | 2020-01-22 17:30 | XMS REPORT ---
[...] Status Dosage System Date Date Dicyclomine HCl [facility] 05671965604 20 MG Orally May Active 1 tablet as Four times a 09, 19, needed for day 2018 2018 stomach pain Triamcinolone [facility] 37700458018 0.1 % April Active 1 application Acetonide Externally 28, to affected Twice a day 2019 areas Loratadine [facility] 45010002929 10 MG Orally Active 1 tablet Once a day Lisinopril [facility] 77271220841 5 MG Orally Active 1 tablet Once a day Farxiga ND 99138066629 5mg Orally May Active 1 tablet Once daily , 2018 Lactulose [facility] 88037073318 10 GM/15ML May Active 15-30 ml Orally Once to , twice a day as 2018 2018 needed for constipation BusPIRone HCl [facility] 23200266056 7.5 MG Orally April 18, Active 1 tablet as Twice a day 2018 needed for anxiety Vitamin D [facility] 00334046087 2000 UNIT Active 1 tablet Orally Once a day Atorvastatin [facility] 73320667731 10 MG Orally Active 1 tablet Calcium Once a day Orphenadrine [facility] [address]-62 100 MG Orally Active as directed Citrate ER Alogliptin [facility] 92404361691 25 MG Orally April Active 1 tablet Benzoate Once a day for , diabetes 2019 Pioglitazone HCl [facility] 53779674976 15 MG Orally May Active 1 tablet Once a day for 05, diabetes 2019 GlipiZIDE XL [facility] 10241020360 5 MG Orally Active 1 tablet with Once a day food Amoxicillin [facility] 85156415972 500 MG Orally Active 1 capsule Twice a day Meclizine HCl [facility] 07818890581 25 MG Orally April Active 1 tablet as Twice daily , needed for 2019 dizziness Results No Known Results Summary Purpose eClinicalWorks Submission
--- OUTSIDE RECORDS SUMMARY | 2020-01-22 17:31 | XMS REPORT ---
[...] Date Date Atorvastatin [facility] 34458753121 10 MG Orally Active 1 tablet Calcium Once a day Orphenadrine [facility] [address]-16 100 MG Orally Active as directed Citrate ER Amoxicillin [facility] 37672087870 500 MG Orally Active 1 capsule Twice a day Meclizine HCl [facility] 72541624729 25 MG Orally April Active 1 tablet as Twice daily , needed for 2019 dizziness BusPIRone HCl [facility] 07884914266 7.5 MG Orally April 18, Active 1 tablet as Twice a day 2018 needed for anxiety Loratadine [facility] 47992969502 10 MG Orally Active 1 tablet Once a day GlipiZIDE XL [facility] 38765672673 5 MG Orally Active 1 tablet with Once a day food Farxiga [facility] 87283301933 5mg Orally May Active 1 tablet Once daily 2018 2019 Pioglitazone HCl [facility] 51427148092 15 MG Orally May Active 1 tablet Once a day for 05, diabetes 2019 Alogliptin [facility] 09487076296 25 MG Orally April Active 1 tablet Benzoate Once a day for 28, diabetes 2019 Triamcinolone [facility] 98754528903 0.1 % April Active 1 application Acetonide Externally 28, to affected Twice a day 2019 areas Lisinopril [facility] 08500747173 5 MG Orally Active 1 tablet Once a day Vitamin D [facility] 34557172731 2000 UNIT Active 1 tablet Orally Once a day BELVIQ [facility] 21456669723 10 MG orally Jun 28Sep Active 1 tablet Twice a day 2018 Results No Known Results Summary Purpose eClinicalWorks Submission
--- OUTSIDE RECORDS SUMMARY | 2020-01-22 17:43 | XMS REPORT | Summary of Care ---
:1985 Author Organization [facility] - Health Address [address] [place] [address] Care Team Providers Name Role Phone Klarissa Delgado Flores Insurance Hmo Karoline Alvarez Primary Care Provider Encounter Details Date Type Department Care Team Description 01/02/2020 Orders Only [facility] Doctor Unassigned, No [address] [facility] [address] [address] [place] [address] Allergies Active Allergy Reactions Severity Noted Date Comments Ibuprofen Rash 04/19/2017 documented as of this encounter (statuses as of 01/03/2020) Medications Medication Sig Dispensed Refills Start End Status Date Date sod srkur-ejmadi-tdfpey Use 1 Bottle in each 1 Each 0 Active bottle (NEILMED SINUS nostril 2 (two) 9 RINSE COMPLETE) times daily. Use in pkdvIndications: hot shower 1 hour Sinusitis, unspecified before bedtime chronicity, unspecified location dicyclomine (BENTYL) 10 Take 1 capsule by 30 capsule 0 Active mg capsuleIndications: mouth every 8 9 Epigastric pain (eight) hours as needed for Abdominal pain. famotidine 20 mg Take 20 mg by mouth 0 Active tabletIndications: 2 (two) times daily. gastroesophageal reflux Indications: disease gastroesophageal reflux disease Fluticasone-Salmeterol Inhale 1 Puff every 60 Each 1 Active (ADVAIR DISKUS) 100-50 12 (twelve) hours. 9 mcg/dose inhalation diskIndications: Mild intermittent asthma without complication fluticasone propionate Use 2 Sprays in each 16 g 4 Active 50 mcg/actuation nasal nostril 2 (two) 9 sprayIndications: times daily. Seasonal allergic rhinitis, unspecified trigger busPIRone 7.5 mg TAKE 1 TABLET BY 180 tablet 0 Active tabletIndications: MOUTH TWICE DAILY 9 Medication refill NEEDED FOR ANXIETY metroNIDAZOLE 500 mg Take 1 tablet by 14 tablet 0 Active tabletIndications: mouth 2 (two) times 9 Dysuria daily. glyBURIDE 5 mg Take 1 tablet by 90 tablet 0 Active tabletIndications: Type mouth daily with 0 2 diabetes mellitus breakfast. without complication, without long-term current use of insulin traMADol 50 mg Take 1 tablet by 12 tablet 0 Active tabletIndications: mouth every 6 (six) 0 Labial abscess hours as needed for Pain (scale 7-10). benzonatate (TESSALON Take 1 capsule by 62 capsule 0 Active PERLES) 100 mg mouth 3 (three) 0 020 capsuleIndications: times daily as Seasonal allergic needed for Cough for rhinitis, unspecified up to 21 days. trigger, Viral URI with cough levocetirizine 5 mg TAKE 1 TABLET BY 30 tablet 4 Active tabletIndications: MOUTH ONCE DAILY IN 0 Seasonal allergic THE EVENING rhinitis, unspecified trigger azelastine 137 mcg (0.1 Use [address] [place] in each 30 mL 4 Active %) nasal nostril 2 (two) 0 sprayIndications: times daily. Use in Seasonal allergic each nostril as rhinitis, unspecified directed trigger ACCU-CHEK GUIDE GLUCOSE Use as directed, 1 Each 0 Active METER Misc once a day to 0 monitor blood glucose for ICD code E11.9 ACCU-CHEK GUIDE strip Use as directed, 100 Strip 2 Active once a day to 0 monitor blood glucose for ICD code E11.9 ACCU-CHEK FASTCLIX Use as directed for 1 Kit 0 Active LANCING DEV Kit once a day blood 0 glucose monitoring for ICD E11.9 ACCU-CHEK FASTCLIX Use as directed for 100 Each 0 Active LANCET DRUM Misc once a day blood 0 glucose monitoring for ICD E11.9 Lancets Misc FastClix lancets, 100 Each 3 Active Use as directed, 0 once a day to monitor blood glucose for ICD code E11.9 medroxyPROGESTERone Take one by mouth 30 tablet 1 Active (PROVERA) 10 mg daily days 1-10 of 0 tabletIndications: each month. Female infertility associated with anovulation documented as of this encounter (statuses as of 01/03/2020) Active Problems Problem Noted Date Morbid obesity with body mass index of 40.0-49.9 01/02/2020 Indigestion 07/25/2019 Overview: Added automatically from request for surgery [id number] Epigastric pain 07/25/2019 Overview: Added automatically from request for surgery [id number] Type 2 diabetes mellitus with complication, without long-term current use of insulin Neck pain, acute 06/13/2019 Acute bilateral low back pain with bilateral sciatica 06/13/2019 Allergic sinusitis 06/13/2019 Secondary oligomenorrhea 05/10/2019 Overview: 05/10/19 s/p EMB - histology revealed a benign endometrial polyp. Cyclic progesterone started. Abdominal pain, left lower quadrant 05/10/2019 Obesity (BMI 30-39.9) 04/27/2017 documented as of this encounter (statuses as of 01/03/2020) Immunizations Name Administration Dates Next Due Influenza Virus Vaccine Quad .5 mL IM 6+ MO 09/09/2019 Pneumococcal Polysaccharide, PPSV23 (PNEUMOVAX) 06/13/2019 documented as [...] Treatment Date Type Specialty Care Team Description 03/05/2020 Office Visit Obstetrics & Gynecology Claritza Velez MD [address] [place] [phone] 06/11/2020 Dovetailer Visit Endocrinology Diabetes & LamonteRegla alvarez, RD Metabolism [address] [place] [address] [phone] Health Maintenance Due Date Last Done Comments VARICELLA VACCINES (1 of 2 - 1988 2-dose childhood series) EYE EXAM 1997 DTaP,Tdap,and Td Vaccines (1 - 1998 Tdap) FOOT EXAM 2005 LDL-C 06/13/2020 06/13/2019 URINE MICROALBUMIN 06/13/2020 06/13/2019 HgA1C 07/02/2020 01/02/2020, 09/09/2019, 08/01/2019, Additional history exists CREATININE (SERUM) 09/30/2020 09/30/2019, 09/09/2019, 09/04/2019, Additional history exists PAP SMEAR 05/01/2022 05/01/2019 PNEUMOCOCCAL 0-64 YEARS COMBINED Completed 06/13/2019 SERIES INFLUENZA VACCINE Completed 09/09/2019 documented as of this encounter Procedures Procedure Name Priority Date/Time Associated Diagnosis Comments AGREEMENTS AUTHORIZATIONS Routine 01/02/2020 12:01 AM AND 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 (FORM 2001) documented in this encounter Results Not on filedocumented in this encounter Additional Health Concerns Infection Noted Time Resolved Time Contact - ESBL 10/31/2018 4:18 PM MULTISENSOR INTELLIGENCE OFFICER documented as of this encounter Insurance Payer Benefit Plan / Subscriber ID Effective Phone Address Type Group Dates [facility] [id number] 2019-Pres Medicare HEALTHCARE - HEALTHCARE ent Adv HMO MANAGED DUAL COMPLETE MEDICARE HMO TMHP MEDICAID OF xxxxxxxxx 2019-Pres [phone] [place] ent [id number] [place] [address] documented as of this encounter Advance Directives Name Relationship Healthcare Agent Communication Relationship Michelet Brower Life Partner Primary healthcare agent Miranda Morales Sibling Primary healthcare agent [phone] ([place])
--- OUTSIDE RECORDS SUMMARY | 2020-01-22 17:44 | XMS REPORT | Summary of Care ---
:1985 Author Organization [facility] - Health Address [address] [place] [address] Care Team Providers Name Role Phone Klarissa Delgado Insurance Hmo Karoline Alvarez Primary Care Provider Encounter Details Date Type Department Care Team Description 12/18/2019 Orders Only [facility] Doctor Unassigned, No 301 [facility] [place] [address] [address] [place] [address] Allergies Active Allergy Reactions Severity Noted Date Comments Ibuprofen Rash 04/19/2017 documented as of this encounter (statuses as of 12/18/2019) Medications Medication Sig Dispensed Refills Start End Status Date Date sod cqews-zroswl-srmfmx Use 1 Bottle in each 1 Each [...] inhalation diskIndications: Mild intermittent asthma without complication azelastine 137 mcg (0.1 Use 1 [place] in each 30 mL 4 Active %) nasal nostril 2 (two) 9 sprayIndications: times daily. Use in Seasonal allergic each nostril as rhinitis, unspecified directed trigger fluticasone propionate Use 2 Sprays in each 16 g 4 Active 50 mcg/actuation nasal nostril 2 (two) 9 sprayIndications: times daily. Seasonal allergic rhinitis, unspecified trigger levocetirizine 5 mg TAKE 1 TABLET BY 4 Active tablet MOUTH ONCE DAILY IN 9 THE EVENING busPIRone 7.5 mg TAKE 1 TABLET BY [...] as of this encounter (statuses as of 12/18/2019) Active Problems Problem Noted Date Indigestion 07/25/2019 Overview: Added automatically from request for surgery [id number] Epigastric pain 07/25/2019 Overview: Added automatically from request for surgery [id number] Type 2 diabetes mellitus with complication, without long-term current use of insulin Neck pain, acute 06/13/2019 Acute bilateral low back pain with bilateral sciatica 06/13/2019 Allergic sinusitis 06/13/2019 Secondary oligomenorrhea 05/10/2019 Overview: 05/10/19 s/p EMB - histology revealed a benign endometrial polyp. Cyclic progesterone started. Abdominal pain, left lower quadrant 05/10/2019 Obesity (BMI 30-39.9) 04/27/2017 documented as of this encounter (statuses as of 12/18/2019) Immunizations Name Administration Dates Next Due Influenza [...] Treatment Date Type Specialty Care Team Description 12/19/2019 Office Visit Orthopedic Surgery Shana Mayen DPM [address] [place] [address] [phone] 12/19/2019 Office Visit Family Medicine Karoline Alvarez, GLYCERIN OPERATOR [address] [phone] 12/19/2019 Bad Work Gatherer Visit Endocrinology Diabetes & LamonteRegla alvarez, ANTONIO Metabolism [address] [place] [address] [phone] 12/26/2019 Office Visit Obstetrics & Gynecology Claritza Velez MD [address] [place] [phone] Health Maintenance Due Date Last Done Comments VARICELLA VACCINES (1 of 2 - 1988 2-dose childhood series) EYE EXAM 1997 DTaP,Tdap,and Td Vaccines (1 - 1998 Tdap) FOOT EXAM 2005 HgA1C 03/10/2020 09/09/2019, 08/01/2019, 06/13/2019 LDL-C 06/13/2020 06/13/2019 URINE MICROALBUMIN 06/13/2020 06/13/2019 CREATININE (SERUM) 09/30/2020 09/30/2019, 09/09/2019, 09/04/2019, Additional history exists PAP SMEAR 05/01/2022 05/01/2019 PNEUMOCOCCAL 0-64 YEARS COMBINED Completed 06/13/2019 SERIES INFLUENZA VACCINE Completed 09/09/2019 documented as of this encounter Procedures Procedure Name Priority Date/Time Associated Diagnosis Comments CONSENT/REFUSAL FOR Routine 12/18/2019 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 DIAGNOSIS AND TREATMENT documented in this encounter Results Not on filedocumented in this encounter Additional Health Concerns Infection Noted Time Resolved Time Contact - ESBL 10/31/2018 4:18 PM CARBON SETTER documented as of this encounter Insurance Payer Benefit Plan / Subscriber ID Effective Phone Address Type Group Dates [facility] [id number] 2019-Prese Medicare Adv HEALTHCARE - HEALTHCARE DUAL nt HMO MANAGED COMPLETE HMO MEDICARE documented as of this encounter Advance Directives Name Relationship Healthcare Agent Communication Relationship Michelet Brower Life Partner Primary healthcare agent Miranda Morales Sibling Primary healthcare agent
--- OUTSIDE RECORDS SUMMARY | 2020-01-22 17:44 | XMS REPORT | Summary of Care ---
:1985 Author Organization [facility] Address [address] [place] [id number] Care Team Providers Name Role Phone Klarissa Delgado Flores Insurance Hmo Karoline Alvarez ADJUSTO WRITER OPERATOR Primary Care Provider Reason for Referral (BHARATHI) Status Reason Specialty Diagnoses / Referred By Referred To Procedures Contact Contact New Request JIM-OTOLARYNGOLOG Diagnoses Vertigo Ibikunle, Y Procedures Discharge Follow-Up: Specialty Service JIM-OTOLARYNGOLOGY; 3-5 Days Folusho F, ADJUSTO WRITER OPERATOR [address] [place] [phone] MRI/CAT Scan (STAT) Status Reason Specialty Diagnoses / Referred By Referred To Procedures Contact Contact New Request Diagnostic Diagnoses Dizziness Ibikunle, Radiology Procedures CT HEAD WO CONTRAST Folusho F, ADJUSTO WRITER OPERATOR [address] [place] [phone] Radiology Services (STAT) Status Reason Specialty Diagnoses / Referred By Referred To Procedures Contact Contact New Request Diagnostic Diagnoses Dizziness Ibikunle, Radiology Procedures XR CHEST 2 VW Folusho F, ADJUSTO WRITER OPERATOR [address] [place] [phone] Reason for Visit Reason Comments Cough Congestion Headache Auth/Cert Status Reason Specialty Diagnoses / Referred By Referred To Procedures Contact Contact Emergency Medicine [facility] Emergency Dept [address] [place] [address] [place] [address] Encounter Details Date Type Department Care Team Description 01/09/2020 Emergency ADC-Emergency Zoe Urrutia Dizziness (Primary Dx) ; Department F, ADJUSTO WRITER OPERATOR Vertigo; [address] [place] [address] Transient elevated [place] [address] [address] [place] [address] Allergies Active Allergy Reactions Severity Noted Date Comments Ibuprofen Rash 04/19/2017 documented as of this encounter (statuses as of 01/09/2020) Medications Medication Sig Dispensed Refills Start End Status Date Date sod ilgdg-euvtnc-kcpzje Use 1 Bottle in each 1 Each 0 Active bottle (NEILMED SINUS nostril 2 (two) 9 RINSE COMPLETE) times daily. Use in pkdvIndications: hot shower 1 hour Sinusitis, unspecified before bedtime chronicity, unspecified location dicyclomine (BENTYL) 10 Take 1 capsule by 30 capsule 0 Active mg capsuleIndications: mouth every 8 9 Epigastric pain (eight) hours as needed for Abdominal pain. Fluticasone-Salmeterol Inhale 1 Puff every 60 Each [...] trigger azelastine 137 mcg (0.1 Use 1 [place] in each 30 mL 4 Active %) [...] each month. Female infertility associated with anovulation famotidine 20 mg Take 1 tablet by 60 tablet 2 Active tabletIndications: mouth 2 (two) times 0 020 gastroesophageal reflux daily before disease breakfast and dinner for 90 days. Indications: gastroesophageal reflux disease docusate (COLACE) 100 Take 1 capsule by 30 capsule 1 Active mg capsuleIndications: mouth daily for 60 0 020 Constipation, days. unspecified constipation type polyethylene glycol Take 17 g by mouth 85 g 0 Active (MIRALAX) 17 gram/dose daily for 5 days. 0 020 powderIndications: Constipation, unspecified constipation type clotrimazole-betamethas Apply to area(s) 2 15 g 0 Active one (LOTRISONE) (two) times daily 0 020 creamIndications: for 21 days. Laura infection of flexural skin meclizine 25 mg Take 1 tablet by 20 tablet 0 Active tabletIndications: mouth 3 (three) 0 Vertigo times daily as needed for Dizziness. documented as of this encounter (statuses as of 01/09/2020) Active Problems Problem Noted Date Morbid obesity with body mass index of 40.0-49.9 01/02/2020 Indigestion 07/25/2019 Overview: Added automatically from request for surgery [id number] Epigastric pain 07/25/2019 Overview: Added automatically from request for surgery [id number] Type 2 diabetes mellitus with complication, without long-term current use of insulin Neck pain, acute 06/13/2019 Acute bilateral low back pain with bilateral sciatica 06/13/2019 Allergic sinusitis 06/13/2019 Secondary oligomenorrhea 05/10/2019 Overview: 05/10/19 s/p EMB - histology revealed a benign endometrial polyp. Cyclic progesterone started. Abdominal pain, left lower quadrant 05/10/2019 Obesity (BMI 30-39.9) 04/27/2017 documented as of this encounter (statuses as of 01/09/2020) Immunizations Name Administration Dates Next Due Influenza [...] Sign Reading Time Taken Comments Blood Pressure 131/85 01/09/2020 1:56 PM TRUCK DOCK MATERIAL MOVER Pulse 79 01/09/2020 1:56 PM [employer]UCK D[employer] MATERIAL MOVER Temperature 37.1 C (98.7 F) 01/09/2020 10:12 AM TRUCK D[employer] MATERIAL MOVER Respiratory Rate 17 01/09/2020 1:56 PM TRUCK D[employer] MATERIAL MOVER Oxygen Saturation 100% 01/09/2020 1:56 PM TRUCK [employer] MATERIAL MOVER Inhaled Oxygen Concentration - - Weight 104.3 kg (230 lb) 01/09/2020 10:12 AM TRUCK D[employer] MATERIAL MOVER Height - - Body Mass Index 39.48 01/04/2020 11:48 AM TRUCK DOCK MATERIAL MOVER documented in this encounter Discharge Instructions Zoe Dennison FNP - 01/09/2020 You were seen today for Chief Complaint Patient presents with Cough Congestion Headache Your ER diagnosis was ICD-10-CM ICD-9-CM 1. Dizziness R42 780.4 2. Vertigo R42 780.4 3. Transient elevated blood pressure R03.0 796.2 NO LIFE-THREATENING FINDINGS ON TODAY'S EXAM. YOUR PRESCRIPTIONS : Medication List START taking these medications meclizine 25 mg tablet Commonly known as: TRAVEL-EASE (MECLIZINE) Take 1 tablet by mouth 3 (three) times daily as needed for Dizziness. ASK your doctor about these medications * ACCU-CHEK FASTCLIX LANCET DRUM Misc Generic drug: Lancets Use as directed for once a day blood glucose monitoring for ICD E11.9 * Lancets Misc Commonly known as: SINGLE-LET FastClix lancets, Use as directed, once a day to monitor blood glucose for ICD code E11.9 ACCU-CHEK FASTCLIX LANCING DEV Kit Generic drug: Lancing Device with Lancets Use as directed for once a day blood glucose monitoring for ICD E11.9 ACCU-CHEK GUIDE GLUCOSE METER Misc Generic drug: Blood-Glucose Meter Use as directed, once a day to monitor blood glucose for ICD code E11.9 ACCU-CHEK GUIDE strip Generic drug: blood sugar diagnostic Use as directed, once a day to monitor blood glucose for ICD code E11.9 azelastine 137 mcg (0.1 %) nasal spray Commonly known as: ASTELIN Use 1 [place] in each nostril 2 (two) times daily. Use in each nostril as directed benzonatate 100 mg capsule Commonly known as: TESSALON PERLES Take 1 capsule by mouth 3 (three) times daily as needed for Cough for up to 21 days. busPIRone 7.5 mg tablet Commonly known as: BUSPAR TAKE 1 TABLET BY MOUTH TWICE DAILY NEEDED FOR ANXIETY clotrimazole-betamethasone cream Commonly known as: LOTRISONE Apply to area(s) 2 (two) times daily for 21 days. dicyclomine 10 mg capsule Commonly known as: BENTYL Take 1 capsule by mouth every 8 (eight) hours as needed for Abdominal pain. docusate 100 mg capsule Commonly known as: COLACE Take 1 capsule by mouth daily for 60 days. famotidine 20 mg tablet Commonly known as: PEPCID AC Take 1 tablet by mouth 2 (two) times daily before breakfast and dinner for 90 days. Indications: gastroesophageal reflux disease fluticasone propionate 50 mcg/actuation nasal spray Use 2 Sprays in each nostril 2 (two) times daily. Fluticasone-Salmeterol 100-50 mcg/dose inhalation disk Commonly known as: ADVAIR DISKUS Inhale 1 Puff every 12 (twelve) hours. glyBURIDE 5 mg tablet Commonly known as: DIABETA Take 1 tablet by mouth daily with breakfast. levocetirizine 5 mg tablet Commonly known as: XYZAL TAKE 1 TABLET BY MOUTH ONCE DAILY IN THE EVENING medroxyPROGESTERone 10 mg tablet Commonly known as: PROVERA Take one by mouth daily days 1-10 of each month. metroNIDAZOLE 500 mg tablet Commonly known as: FLAGYL Take 1 tablet by mouth 2 (two) times daily. polyethylene glycol 17 gram/dose powder Commonly known as: MIRALAX Take 17 g by mouth daily for 5 days. sod wcqvo-zwzejb-aoabak bottle Pkdv Commonly known as: NEILMED SINUS RINSE COMPLETE Use 1 Bottle in each nostril 2 (two) times daily. Use in hot shower 1 hour before bedtime traMADol 50 mg tablet Commonly known as: ULTRAM Take 1 tablet by mouth every 6 (six) hours as needed for Pain (scale 7-10). * This list has 2 medication(s) that are the same as other medications prescribed for you. Read thedirections carefully, and ask your doctor or other care provider to review them with you. Where to Get Your Medications You can get these medications from any pharmacy Bring a paper prescription for each of these medications meclizine 25 mg tablet ER precautions and follow up : 1. [...] es normal, confusion, baja or pierdas conciencia. FOLLOW-UP RECOMMENDATIONS: RECOMMEND FOLLOW-UP WITH A PRIMARY CARE PROVIDER OR SPECIALIST IN 2-5 DAYS, ESPECIALLY IF NO IMPROVEMENT IN SYMPTOMS. MAY FOLLOW-UP WITH A PROVIDER OF YOUR CHOICE, SUCH : 1. A PHYSICIAN OF YOUR CHOICE 2. [facility] AND [facility], . LOCATIONS IN [facility] 3. [facility], [address] [place] [address]; OR, IF YOU WISH TO FOLLOW-UP WITHIN THE [facility], MAY TRY THESE OPTIONS (CLINIC APPOINTMENTS AVAILABLE ON [id number] BASIS): 1. SCHEDULE AN APPOINTMENT ONLINE AT [email or web address] 2. OR CALL THE [facility] AT OR 3. OR CALL YOUR [facility] PHYSICIAN'S OFFICE DIRECTLY IF YOU ARE ALREADY AN ESTABLISHED [facility] PATIENT. AttachmentsThe following attachments cannot be sent through Care Everywhere.Dizziness (Vertigo) and Balance Problems: Staying Safe (Citizen Of [place]) Meclizine tablets or capsules (Citizen [place])documented in this encounter Plan of Treatment Date Type Specialty Care Team Description 03/05/2020 Office Visit Obstetrics & Gynecology Claritza Velez MD [address] [place] [phone] 06/11/2020 Inside Contractor Sales Visit Endocrinology Diabetes & Lamonte, Regla, RD Metabolism [address] [place] [address] [phone] Health Maintenance Due Date Last Done Comments VARICELLA VACCINES (1 of 2 - 1988 2-dose childhood series) EYE EXAM 1997 DTaP,Tdap,and Td Vaccines (1 - 1998 Tdap) FOOT EXAM 2005 LDL-C 06/13/2020 06/13/2019 URINE MICROALBUMIN 06/13/2020 06/13/2019 HgA1C 07/02/2020 01/02/2020, 09/09/2019, 08/01/2019, Additional history exists CREATININE (SERUM) 01/04/2021 01/04/2020, 09/30/2019, 09/09/2019, Additional history exists PAP SMEAR 05/01/2022 05/01/2019 PNEUMOCOCCAL 0-64 YEARS COMBINED Completed 06/13/2019 SERIES INFLUENZA VACCINE Completed 09/09/2019 documented as of this encounter Procedures Procedure Name Priority Date/Time Associated Comments Diagnosis XR CHEST 2 VW STAT 01/09/2020 12:42 Dizziness Results for this PM [employer] MATERIAL MOVER procedure are in the results section. CT HEAD WO CONTRAST STAT 01/09/2020 12:40 Dizziness Results for this PM [employer] MOVER procedure are in the results section. CBC WITH DIFFERENTIAL STAT 01/09/2020 12:11 Dizziness Results for this PM [employer] MOVER procedure are in the results section. POCT TEST BHARATHI 01/09/2020 12:11 Dizziness Results for this PM [employer] MOVER procedure are in the results section. URINALYSIS STAT 01/09/2020 12:11 Dizziness Results for this PM [employer] MOVER procedure are in the results section. CBC WITH DIFFERENTIAL Routine 01/09/2020 12:11 Dizziness Results for this PM [employer] MOVER procedure are in the results section. COMP. METABOLIC PANEL STAT 01/09/2020 12:11 Dizziness Results for this (64029) PM [employer] MATERIAL MOVER procedure are in the results section. EKG-12 LEAD STAT 01/09/2020 11:08 AM TRUCK DOCK MATERIAL MOVER CONSENT/REFUSAL FOR Routine 01/09/2020 10:04 DIAGNOSIS AND AM [employer] MATERIAL MOVER TREATMENT TROPONIN I STAT Add-On 01/04/2020 12:12 Dizziness Results for this PM [employer] MATERIAL MOVER procedure are in the results section. documented in this encounter Results XR CHEST 2 VW (01/09/2020 12:42 PM TRUCK DOCK MATERIAL MOVER) Specimen Narrative Performed At HISTORY: Cough. PACS/VR/DOSE TECHNIQUE: PA and lateral views of the chest are obtained. Comparison is made with 09/04/2019 study. FINDINGS: No acute pneumonia detected. No pneumothorax or pleural effusion or pulmonary congestion. Cardiomediastinal contour appears normal. There is possibly a calcified granuloma in the lingula segment. CONCLUSIONS: No signs of acute cardiopulmonary disease. Procedure Note [facility], Radiant Results Inft User - 01/09/2020 12:46 PM TRUCK DOCK MATERIAL MOVER HISTORY: Cough. TECHNIQUE: PA and lateral views of the chest are obtained. Comparison is made with 09/04/2019 study. FINDINGS: No acute pneumonia detected. No pneumothorax or pleural effusion or pulmonary congestion. Cardiomediastinal contour appears normal. There is possibly a calcified granuloma in the lingula segment. CONCLUSIONS: No signs of acute cardiopulmonary disease. Performing Organization Address City/State/Zipcode Phone Number PACS/VR/DOSE CT HEAD WO CONTRAST (01/09/2020 12:40 PM TRUCK DOCK MATERIAL MOVER) Specimen Impressions Performed At PACS/VR/DOSE Normal CT head Narrative Performed At CT HEAD WO CONTRAST PACS/VR/DOSE HISTORY: Female 34 years Headache, acute, normal neuro exam Dizziness, non-specific Dizziness, persistent/recurrent, cardiac or vascular cause suspected COMPARISON: None TECHNIQUE: Multiplanar multi weighted imaging of the brain was obtained without IV contrast FINDINGS: The ventricles and cerebral sulci are normal in caliber and configuration. No hydrocephalus, midline shift or pathological extra-axial fluid collection is present. The basal cisterns are unremarkable. No acute intracranial hemorrhage or mass effect is present. The callahan-white matter differentiation is preserved. No parenchymal attenuation abnormality is present. The calvarium and skull base are unremarkable. The mastoid air cells and visualized paranasal air sinuses are clear. Procedure Note [facility], Radiant Results Inft User - 01/09/2020 12:49 PM TRUCK DOCK MATERIAL MOVER CT HEAD WO CONTRAST HISTORY: Female 34 years Headache, acute, normal neuro exam Dizziness, non-specific Dizziness, persistent/recurrent, cardiac or vascular cause suspected COMPARISON: None TECHNIQUE: Multiplanar multi weighted imaging of the brain was obtained without IV contrast FINDINGS: The ventricles and cerebral sulci are normal in caliber and configuration. No hydrocephalus, midline shift or pathological extra-axial fluid collection is present. The basal cisterns are unremarkable. No acute intracranial hemorrhage or mass effect is present. The callahan-white matter differentiation is preserved. No parenchymal attenuation abnormality is present. The calvarium and skull base are unremarkable. The mastoid air cells and visualized paranasal air sinuses are clear. IMPRESSION Normal CT head Performing Organization Address City/State/Zipcode Phone Number PACS/VR/DOSE CBC WITH DIFFERENTIAL (01/09/2020 12:11 PM TRUCK DOCK MATERIAL MOVER) WBC 9.05 4.30 - 11.10 [facility] 10*3/L [facility] RBC 4.49 3.93 - 5.25 [facility] 10*6/L [facility] HGB 14.5 11.6 - 15.0 [facility] g/dL [facility] HCT 44.2 35.7 - 45.2 % [facility] MCV 98.4 (H) 80.6 - 95.5 fL [facility] MCH 32.3 25.9 - 32.8 pg [facility] MCHC 32.8 31.6 - 35.1 [facility] g/dL [facility] RDW-SD 45.7 39.0 - 49.9 fL [facility] RDW-CV 12.7 12.0 - 15.5 % [facility] PLT 305 166 - 358 [facility] 10*3/L [facility] MPV 10.2 9.5 - 12.9 fL [facility] NRBC/100 WBC 0.0 0.0 - 10.0 /100 [facility] WBCs [facility] NRBC x10^3 <0.01 10*3/L [facility] GRAN MAT (NEUT) % 61.5 % [facility] IMM GRAN % 0.30 % [facility] LYMPH % 31.6 % [facility] MONO % 4.9 % [facility] EOS % 1.4 % [facility] BASO % 0.3 % [facility] GRAN MAT x10^3(ANC) 5.56 1.88 - 7.09 [facility] 10*3/uL HOSPITAL [facility] IMM GRAN x10^3 0.03 0.00 - 0.06 [facility] 10*3/uL [facility] LYMPH x10^3 2.86 1.32 - 3.29 [facility] 10*3/uL [facility] MONO x10^3 0.44 0.33 - 0.92 [facility] 10*3/uL [facility] EOS x10^3 0.13 0.03 - 0.39 [facility] 10*3/uL [facility] BASO x10^3 0.03 0.01 - 0.07 [facility] 10*3/uL [facility] Specimen Blood - VENOUS Performing Organization Address City/State/Zipcode Phone Number [facility] CLIA: [id number], [address] [place] [address] COMP. METABOLIC PANEL (03980) (01/09/2020 12:11 PM TR[employer] MATERIAL MOVER) NA 140 135 - 145 [facility] mmol/L [facility] K 4.0 3.5 - 5.0 [facility] mmol/L [facility] CL 103 98 - 108 mmol/L [facility] CO2 TOTAL 28 23 - 31 mmol/L [facility] AGAP 9 2 - 16 [facility] BUN 12 7 - 23 mg/dL [facility] GLUCOSE 122 (H) 70 - 110 mg/dL [facility] CREATININE 0.63 0.50 - 1.04 [facility] mg/dL [facility] TOTAL BILI 0.6 0.1 - 1.1 mg/dL [facility] CALCIUM 10.0 8.6 - 10.6 [facility] mg/dL [facility] T PROTEIN 7.8 6.3 - 8.2 g/dL [facility] ALBUMIN 4.8 3.5 - 5.0 g/dL [facility] ALK PHOS 72 34 - 122 U/L [facility] ALTv 19 5 - 35 U/L [facility] AST(SGOT) 18 13 - 40 U/L [facility] eGFR Calculation 109.5 mL/min/1.73m2 [facility] ([facility]ATORY [place]) eGFR Calculation 132.7 mL/min/1.73m2 [facility] ([facility] Specimen Blood - VENOUS Narrative Performed At Association of Glomerular Filtration Rate (GFR) [facility] LAB[facility]ATORY and Staging of Kidney Disease* + + +- + | GFR (mL/min/1.73 m2) | With Kidney Damage | Without Kidney Damage + + +- + | >90 | Stage one | Normal + + +- + | 60-89 | Stage two | Decreased GFR + + +- + | 30-59 | Stage three | Stage three + + +- + | 15-29 | Stage four | Stage four + + +- + | <15 (or dialysis) | Stage five | Stage five + + +- + *Each stage assumes the associated GFR level has been in effect for at least three months. Stages 1 to 5, with or without kidney [...] tests). Performing Organization Address City/State/Zipcode Phone Number [facility] CLIA: [id number], [address] [place] [address] POCT Test, Urine (01/09/2020 12:11 PM [employer] MOVER) Pathologist [facility] POCT PREG negative POCT PREG LOT # [id number] POCT PREG TEST DATE 06/26/2021 Specimen Urine - URINE, CLEAN CATCH Urinalysis (01/09/2020 12:11 PM [employer] MATERIAL MOVER) Pathologist [facility] APPEARANCE Clear Clear [facility] COLOR Yellow Yellow [facility] PH 6.0 4.8 - 8.0 [facility] SP GRAVITY 1.015 1.003 - 1.030 [facility]ORY GLU U QUAL Normal Normal [facility] BLOOD 2+ (A) Negative [facility] KETONES Negative Negative [facility] PROTEIN Negative Negative [facility] UROBILIN Normal Normal [facility] BILIRUBIN Negative Negative [facility] NITRITE Negative Negative [facility] LEUK TARA Negative Negative [facility] RBC/HPF 5 (H) 0 - 3 HPF [facility] WBC/HPF <1 0 - 5 HPF [facility] BACTERIA Negative Negative [facility] MUCOUS Slight (A) Negative LPF [facility] SQ EPITH 1 HPF [facility]ORY Specimen Urine - URINE, CLEAN CATCH Performing Organization Address [facility] Phone Number [facility] CLIA: [id number], [address] [place] [address] Troponin I (01/04/2020 12:12 PM [employer] MOVER) TROPONIN I <0.012 <=0.034 ng/mL [facility]OR[facility]ORY Specimen Blood - VENOUS Narrative Performed At Equal or Less than 0.034 ng/ml---Normal [facility] Note: Cardiac troponin begins to rise 3-4 hours after the onset of ischemia. Repeat in 4-6 hours if the sample was drawn within 3-4 hours of the onset of the symptom and found normal. Between 0.035 and 0.120 ng/mL--- Borderline. Questionable myocardial injury or necrosis Note: Serial measurement may be necessary to confirm or exclude the diagnosis of myocardial injury or necrosis; Clinical correlation (symptoms, EKGs, imaging studies, and others) required; Repeat in 4-6 hours if clinically indicated. Equal or Higher than 0.121 ng/mL---Abnormal. Myocardial Injury or Necrosis Likely Biotin has been reported to cause a negative bias, interpret results relative to patient's use of biotin. Performing Organization Address [facility] Phone Number [facility] CLIA: [id number], [address] [place], [place] [address] [facility] documented in this encounter Visit Diagnoses Diagnosis Dizziness - Primary Dizziness and giddiness Vertigo Dizziness and giddiness Transient elevated blood pressure Elevated blood pressure reading without diagnosis of hypertension documented in this encounter Administered Medications Medication Order MAR Action Action Date Dose Rate Site meclizine (TRAVEL-EASE Given 01/09/2020 12:19 PM [employer]OVER 25 mg (MECLIZINE)) tablet 25 mg 25 mg, Oral, ONCE, 1 dose, Cassandra 01/09/20 at 1215, BHARATHI NaCl 0.9% (NS) bolus infusion New Bag 01/09/2020 12:19 PM [employer] 1,000 mL 999 mL/hr 1,000 mL at 999 mL/hr, 1,000 mL, IV Infusion, ONCE, 1 dose, Cassandra 01/09/20 at 1115, BHARATHI documented in this encounter Additional Health Concerns Infection Noted Time Resolved Time Contact - ESBL 10/31/2018 4:18 PM [employer] documented as of this encounter Insurance Payer Benefit Plan / Subscriber ID Effective Phone Address Type Group Dates [facility] [id number] 2019-Pres Medicare HEALTHCARE - HEALTHCARE ent Adv HMO MANAGED DUAL COMPLETE MEDICARE HMO TMHP MEDICAID OF xxxxxxxxx 2019-Pres [phone] [place] ent [id number] [place] [address] documented as of this encounter Advance Directives Name Relationship Healthcare Agent Communication Relationship Michelet Brower Life Partner Primary healthcare agent Miranda Morales Sibling Primary healthcare agent "
--- OUTSIDE RECORDS SUMMARY | 2020-01-22 17:44 | XMS REPORT | Summary of Care ---
:1985 Author Organization [facility] - Health Address [address] [place] [address] Care Team Providers Name Role Phone RafykarisKlarissa Flores Insurance Hmo Karoline Alvarez Primary Care Provider Reason for Visit Reason Comments Other "chafing" Auth/Cert Status Reason Specialty Diagnoses / Referred By Referred To Procedures Contact Contact [facility] [address] [place] [address] [place] [address] Encounter Details Date Type Department Care Team Description 12/18/2019 Emergency [facility]Emergency Heena Knott R, Labial abscess (Primary Department EMNP Dx) [address] [place] [address] [address] [place] [address] [id number] [place], [place] [id number] Allergies Active Allergy Reactions Severity Noted Date Comments Ibuprofen Rash 04/19/2017 documented as of this encounter (statuses as of 12/18/2019) Medications Medication Sig Dispensed Refills Start End Status Date Date sod xswku-utwdpy-ravawp Use 1 Bottle in each 1 Each [...] complication azelastine 137 mcg (0.1 Use 1 [place] in each 30 mL 4 Active %) [...] complication, without long-term current use of insulin cephALEXin 500 mg Take 1 capsule by 28 capsule 0 Active capsuleIndications: mouth 4 (four) times 0 020 Labial abscess daily for 7 days. traMADol 50 mg Take 1 tablet by 12 tablet 0 Active tabletIndications: mouth every 6 (six) 0 Labial abscess hours as needed for Pain (scale 7-10). documented as of this encounter (statuses as of 12/18/2019) Active Problems Problem Noted Date Indigestion 07/25/2019 Overview: Added automatically from request for surgery [id number] Epigastric pain 07/25/2019 Overview: Added automatically from request for surgery [id number] Type 2 diabetes mellitus with complication, without [...] Sign Reading Time Taken Comments Blood Pressure 128/85 12/18/2019 11:27 AM FLUME WORKER Pulse 84 12/18/2019 11:27 AM FLUME WORKER Temperature 36.9 C (98.5 F) 12/18/2019 10:30 AM FLUME WORKER Respiratory Rate 16 12/18/2019 11:27 AM FLUME WORKER Oxygen Saturation 99% 12/18/2019 11:27 AM FLUME WORKER Inhaled Oxygen Concentration - - Weight 104.3 kg (230 lb) 12/18/2019 10:30 AM FLUME WORKER Height 162.6 cm (5' 4") 12/18/2019 10:30 AM FLUME WORKER Body Mass Index 39.48 12/18/2019 10:30 AM FLUME WORKER documented in this encounter Discharge Instructions Heena Montemayor EMNP - 12/18/2019NO LIFE-THREATENING FINDINGS ON TODAY'S EXAM. SPECIAL INSTRUCTIONS: 1. Warm compresses and/or warm sitz baths several times a day as tolerated 2. May take 2 tylenol every 4 hours for pain 3. If not improved in 2 days, recommend following up with primary care provider or carpentry specialist 4. Take all antibiotics 5. See attached information FOLLOW-UP RECOMMENDATIONS: RECOMMEND FOLLOW-UP WITH A PRIMARY CARE PROVIDER OR SPECIALIST IN 2-5 DAYS, ESPECIALLY IF NO IMPROVEMENT IN SYMPTOMS. TO FOLLOW-UP WITHIN THE [facility], TRY THESE OPTIONS (CLINIC APPOINTMENTS AVAILABLE ON LWNJ-XI-LYYP BASIS): 1. SCHEDULE AN APPOINTMENT ONLINE AT [email or web address] 2. OR CALL THE [facility] AT OR 3. OR CALL YOUR [facility] PHYSICIAN'S OFFICE DIRECTLY IF YOU ARE ALREADY AN ESTABLISHED [facility] PATIENT. OR, YOU MAY FOLLOW-UP WITH A PROVIDER OF YOUR CHOICE, SUCH : 1. A PHYSICIAN OF YOUR CHOICE 2. [facility], . LOCATIONS IN [facility] 3. [facility], [address] [place] [address]; RETURN TO ER FOR WORSENING OF SYMPTOMS. AttachmentsThe following attachments cannot be sent through Care Everywhere.Cephalexin tablets or capsules (Grenadian)Tramadol tablets (Grenadian) documented in this encounter Plan of Treatment Date Type Specialty Care Team Description 12/19/2019 Office Visit Orthopedic Surgery Shana Mayen DPM [address] [place], [place] [address] 12/19/2019 Office Visit Family Medicine Karoline Alvarez FNP [address] [phone] 12/19/2019 Self Pay Collector Visit Endocrinology Diabetes & Regla Aburto, ANTONIO Metabolism [address] [place] [address] [phone] 12/26/2019 Office Visit Obstetrics & Gynecology Claritza Velez MD [address] [place] [phone] Health Maintenance Due Date Last Done Comments [...] Procedure Name Priority Date/Time Associated Diagnosis Comments POCT TEST BHARATHI 12/18/2019 11:11 AM Labial abscess Results for this FLUME WORKER procedure are in the results section. NOTICE OF PRIVACY Routine 12/18/2019 10:20 AM PRACTICES FLUME WORKER documented in this encounter Results POCT TEST (12/18/2019 11:11 AM FLUME WORKER) POCT PREG negative On board controls acceptable present with C Line POCT PREG LOT # [id number] POCT PREG TEST DATE 2020-11-26 Specimen Urine - URINE, CLEAN CATCH documented in this encounter Visit Diagnoses Diagnosis Labial abscess - Primary Other abscess of vulva documented in this encounter Additional Health Concerns Infection Noted Time Resolved Time Contact - ESBL 10/31/2018 4:18 PM FLUME WORKER documented as of this encounter Insurance Payer Benefit Plan / Subscriber ID Effective Phone Address Type Group Dates [facility] [id number] 2019-Pres Medicare HEALTHCARE - HEALTHCARE ent Adv HMO MANAGED DUAL COMPLETE MEDICARE HMO TMHP MEDICAID OF xxxxxxxxx 2019-Pres [phone] [place] ent [phone] [id number] [place] [address] documented as of this encounter Advance Directives Name Relationship Healthcare Agent Communication Relationship Micheletdionte Brower Life Partner Primary healthcare agent Miranda Morales Sibling Primary healthcare agent
--- OUTSIDE RECORDS SUMMARY | 2020-01-22 17:44 | XMS REPORT | Summary of Care ---
:1985 Author Organization [facility] - Health Address [address] [place] [address] Care Team Providers Name Role Phone Klarissa Delgado Flores Insurance Hmo Karoline Alvarez Primary Care Provider Encounter Details Date Type Department Care Team Description 12/19/2019 Orders Only [facility] Doctor Unassigned, No [address] [facility] [place] [address] [address] [place] [address] Allergies Active Allergy Reactions Severity Noted Date Comments Ibuprofen Rash 04/19/2017 documented as of this encounter (statuses as of 12/19/2019) Medications Medication Sig Dispensed Refills Start End Status Date Date sod qoxvu-rkxebv-ebqzmj Use 1 Bottle in each 1 Each [...] complication azelastine 137 mcg (0.1 Use 1 [place] in each 30 mL 4 Active %) [...] as of this encounter (statuses as of 12/19/2019) Active Problems Problem Noted Date Indigestion 07/25/2019 Overview: Added automatically from request for surgery [id number] Epigastric pain 07/25/2019 Overview: Added automatically from request for surgery [id number] Type 2 diabetes mellitus with complication, without long-term current use of insulin Neck pain, acute 06/13/2019 Acute bilateral low back pain with bilateral sciatica 06/13/2019 Allergic sinusitis 06/13/2019 Secondary oligomenorrhea 05/10/2019 Overview: 05/10/19 s/p EMB - histology revealed a benign endometrial polyp. Cyclic progesterone started. Abdominal pain, left lower quadrant 05/10/2019 Obesity (BMI 30-39.9) 04/27/2017 documented as of this encounter (statuses as of 12/19/2019) Immunizations Name Administration Dates Next Due Influenza [...] Date Type Specialty Care Team Description 12/19/2019 [place] Visit Endocrinology Diabetes & LamonteRegla alvarez, ANTONIO Metabolism [address] [place] [address] [phone] 12/26/2019 Office Visit Obstetrics & Gynecology Claritza Velez MD [address] [place] [phone] Health Maintenance Due Date Last Done Comments [...] Procedure Name Priority Date/Time Associated Diagnosis Comments ASSIGNMENT OF BENEFITS Routine 12/19/2019 12:03 PM HEARING STENOGRAPHER documented in this encounter Results Not on filedocumented in this encounter Additional Health Concerns Infection Noted Time Resolved Time Contact - ESBL 10/31/2018 4:18 PM HEARING STENOGRAPHER documented as of this encounter Insurance Payer Benefit Plan / Subscriber ID Effective Phone Address Type Group Dates [facility] [id number] 2019-Pres Medicare HEALTHCARE - HEALTHCARE ent Adv HMO MANAGED DUAL COMPLETE MEDICARE HMO TMHP MEDICAID OF xxxxxxxxx 2019-Pres [phone] [place] ent [id number] [place] [address] documented as of this encounter Advance Directives Name Relationship Healthcare Agent Communication Relationship Michelet Brower Life Partner Primary healthcare agent Miranda Morales Sibling Primary healthcare agent
--- OUTSIDE RECORDS SUMMARY | 2020-01-22 17:45 | XMS REPORT | Summary of Care ---
:1985 Author Organization [facility] - Health Address [address] [place] [address] Care Team Providers Name Role Phone Klarissa Delgado Insurance Hmo Karoline Alvarez Primary Care Provider Reason for Visit Reason Comments Rx Concern/Question Encounter Details Date Type Department Care Team Description 12/19/[address] [facility] Family Karoline Alvarez FNP Rx Concern/Question Medicine - [place] [address] [place] [address] [place], [place] [phone] Allergies Active Allergy Reactions Severity Noted Date Comments Ibuprofen Rash 04/19/2017 documented as of this encounter (statuses as of 12/23/2019) Medications Medication Sig Dispensed Refills Start End Status Date Date sod fsrpd-lijqnu-yqmzqy Use 1 Bottle in each 1 Each [...] trigger azelastine 137 mcg (0.1 Use 1 [place] in each 30 mL 4 Active %) [...] blood glucose for ICD code E11.9 ACCU-CHEK MULTICLIX Use as directed, 100 Each 2 Active LANCET Misc once a day to 0 monitor blood glucose for ICD code E11.9 ACCU-CHEK MULTICLIX Use as directed, 1 Kit 0 Active LANCET Kit once a day to 0 monitor blood glucose for ICD code E11.9 documented as of this encounter (statuses as of 12/23/2019) Active Problems Problem Noted Date Indigestion 07/25/2019 Overview: Added automatically from request for surgery [id number] Epigastric pain 07/25/2019 Overview: Added automatically from request for surgery [id number] Type 2 diabetes mellitus with complication, without long-term current use of insulin Neck pain, acute 06/13/2019 Acute bilateral low back pain with bilateral sciatica 06/13/2019 Allergic sinusitis 06/13/2019 Secondary oligomenorrhea 05/10/2019 Overview: 05/10/19 s/p EMB - histology revealed a benign endometrial polyp. Cyclic progesterone started. 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 Visit Endocrinology Diabetes & Lamonte, Regla, RD Metabolism [address] [place] [address] [phone] Health Maintenance Due Date Last Done Comments [...] Completed 09/09/2019 documented as of this encounter Results Not on filedocumented in this encounter Additional Health Concerns Infection Noted Time Resolved Time Contact - ESBL 10/31/2018 4:18 PM INSTITUTIONAL ASSET MANAGER documented as of this encounter Insurance Payer Benefit Plan / Subscriber ID Effective Phone Address Type Group Dates [facility] [id number] 2019-Pres Medicare HEALTHCARE - HEALTHCARE ent Adv HMO MANAGED DUAL COMPLETE MEDICARE HMO TMHP MEDICAID OF xxxxxxxxx 2019-Pres [phone] Medicaid [place] ent [id number] [place] [address] documented as of this encounter Advance Directives Name Relationship Healthcare Agent Communication Relationship Michelet Brower Life Partner Primary healthcare agent Miranda Morales Sibling Primary healthcare agent
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
--- OUTSIDE RECORDS SUMMARY | 2020-01-22 17:45 | XMS REPORT | Summary of Care ---
:1985 Author Organization [facility] Address [address] [place] [address] Care Team Providers Name Role Phone Klarissa Delgado Insurance Hmo Karoline Alvarez LAB INTERN Primary Care Provider Reason for Visit Reason Comments Diabetes Mellitus II (Routine) Status Reason Specialty Diagnoses / Referred By Referred To Procedures Contact Contact Closed Endocrinology Diagnoses Type 2 diabetes mellitus without complication, without long-term current use of insulin Obesity (BMI 35.0-39.9 without comorbidity) Karoline Alvarez Imtiaz, Yusra, Diabetes & Metabolism Procedures CONSULT/REFERRAL NUTRITION LAB INTERN RD [address] [phone] Phone: Fax: Encounter Details Date Type Department Care Team Description 12/19/2019 Supervisor Finishing Room Visit [facility] Regla Aburto RD Type 2 diabetes mellitus with complication, without long-term current use of insulin (Primary Dx); Endocrinology- [address] [place] [address] Obesity (BMI 30-39.9) [facility] Professional [place], [place] Building [address] [place] [address] [address] [place], [place] (Fax) [phone] Allergies Active Allergy Reactions Severity Noted Date Comments Ibuprofen Rash 04/19/2017 documented as of this encounter (statuses as of 12/20/2019) Medications Medication Sig Dispensed Refills Start End Status Date Date sod jjqqs-xdueex-pbaihg Use 1 Bottle in each 1 Each [...] Take 1 capsule by 62 capsule 0 /09/01 Active PERLES) 100 mg mouth 3 (three) 0 020 capsuleIndications: times daily as Seasonal allergic needed for Cough for rhinitis, unspecified up to 21 days. trigger, Viral URI with cough levocetirizine 5 mg TAKE 1 TABLET BY 30 tablet 4 Active tabletIndications: MOUTH ONCE DAILY IN 0 Seasonal allergic THE EVENING rhinitis, unspecified trigger azelastine 137 mcg (0.1 Use 1 [place] in each 30 mL 4 Active %) nasal nostril 2 (two) 0 sprayIndications: times daily. Use in Seasonal allergic each nostril as rhinitis, unspecified directed trigger documented as of this encounter (statuses as of 12/20/2019) Active Problems Problem Noted Date Indigestion 07/25/2019 Overview: Added automatically from request for surgery [id number] Epigastric pain 07/25/2019 Overview: Added automatically from request for surgery [id number] Type 2 diabetes mellitus with complication, without long-term current use of insulin Neck pain, acute 06/13/2019 Acute bilateral low back pain with bilateral sciatica 06/13/2019 Allergic sinusitis 06/13/2019 Secondary oligomenorrhea 05/10/2019 Overview: 05/10/19 s/p EMB - histology revealed a benign endometrial polyp. Cyclic progesterone started. Abdominal pain, left lower quadrant 05/10/2019 Obesity (BMI 30-39.9) 04/27/2017 documented as of this encounter (statuses as of 12/20/2019) Immunizations Name Administration Dates Next Due Influenza [...] Sign Reading Time Taken Comments Blood Pressure - - Pulse - - Temperature - - Respiratory Rate - - Oxygen Saturation - - Inhaled Oxygen Concentration - - Weight 104.3 kg (230 lb) 12/19/2019 2:02 PM COMPREHENSIVE ADVISOR Height - - Body Mass Index 39.48 12/18/2019 10:30 AM COMPREHENSIVE ADVISOR documented in this encounter Progress Notes Lamonte Regla, RD - 12/19/2019 2:00 PM CST Medical Nutrition Therapy - [id number] Name: Mckenna Haney Date: 12/19/2019 Referring Provider: Karoline Alvarez Accompanied by: alone Referral Date: 07/01/19 Reason for visit: type 2 diabetes Occupation: unemployed Sex: female Ethnicity: Visit Summary: Patient would like to eat healthier and lose weight. Recently came back from 2 monthsin [place] visiting family. States before trip she was losing weight, however, while in [place], she regained 10 lbs. States she just got back this past weekend and has resumed diet from before her trip. Reviewed most recent clinical note. Ht Readings from Last 1 Encounters: 12/18/19 5' 4" (1.626 m) Wt Readings from Last 1 Encounters: 12/19/19 230 lb (104.3 kg) Body mass index is 39.48 kg/m. MICROALB U (ug/mL) Date Value 06/13/2019 8 HGB A1C (% NGSP) Date Value 09/09/2019 6.0 CHOL (mg/dL) Date Value 06/13/2019 120 HDL (mg/dL) Date Value 06/13/2019 40 (L) LDL CHOL (mg/dL) Date Value 06/13/2019 65 TRIG (mg/dL) Date Value 06/13/2019 76 Diabetes Type: Type 2 diabetes, Onset: 2017 Family History of Diabetes: mother Previous Diabetes Education: none Diabetes Knowledge/Skill Level: survival Learning Needs Identified by Patient: introduction to diabetes, healthy eating, being active, takingmedication, monitoriing, problem solving, healthy coping and reducing risk Barriers: none Self-Management skills and Diabetes-related behavior education based on the following content areas: Diabetes Disease Process and Treatment Options - Assessment if the patient understanding: needs reviews Definition, types, diagnostic criteria of diabetes, causes, risk factors, symptoms of diabetes, importance of diabetic control, ongoing education, and possible treatment changes/options. Nutritional Management - Assessment of patient understanding: needs reviews Carb consistent meal plan with portion control and limiting sweetened beverages. Explained what foods are considered carbohydrates and what different serving sizes look like using food models and diabetic exchange lists. Discussed using the plate method to portion control meals. Provided patient w/grocery list of healthier items to create meals from. Also provided patient w/carb counting book. Provided patient w/tips on how to eat out healthy and how to reduce amount of refined/simple carbs to help better maintain his BG. Patient was previously eating a healthier diet (as recalled below), and was losing weight, however, after going to [place] for 2 months, she regained weight. Patient resumed diet below 4 days ago. Initial Diet Screen Eating 3 meals/day: no, will sometimes skip dinner Breakfast: 2 egg whites, 1 slice toast (wheat bread), orange juice Snack: apple OR regular jello Lunch: chicken w/vegetables (green beans, broccoli, carrots, sometimes potatoes) Snack: none OR crackers OR jello OR fruit Dinner: skips (2-3x/week) OR salad w/boiled egg and light salad dressing Snacks: fruit Beverages: apple juice, orange juice, powerade, lemonade Water: 64 fl oz daily Frequency of restaurant meals: once a week Alcohol: none Physical Activity - Assessment of patient understanding: needs reviews Incorporating activity into lifestyle. Benefits of cardiovascular and resistance training activity on blood sugar and weight management. Current exercise regimen: none Monitoring Blood Glucose - Assessment of patient understanding: needs reviews Reviewed testing technique, times, record keeping, blood sugar targets, and sharps disposal. Recommended testing: once daily Frequency of testinx/day (sometimes after eating something "she's not supposed to," her BG will rise to 220 Fastin, 135, 140 Bedtime: 150, 117, 118 Diabetes Medications - Assessment of patient understanding: needs reviews Current Diabetes Medications/Insulin Oral diabetes medication: glyburide Current Outpatient Medications Medication Sig Dispense Refill azelastine 137 mcg (0.1 %) nasal spray Use 1 [place] in each nostril 2 (two) times daily. Use in each nostril as directed 30 mL 4 benzonatate (TESSALON PERLES) 100 mg capsule Take 1 capsule by mouth 3 ( three) times daily as needed for Cough for up to 21 days. 62 capsule 0 levocetirizine 5 mg tablet TAKE 1 TABLET BY MOUTH ONCE DAILY IN THE EVENING 30 tablet 4 cephALEXin 500 mg capsule Take 1 capsule [...] DAILY NEEDED FOR ANXIETY 180 tablet 0 fluticasone propionate 50 mcg/actuation nasal spray Use [...] for Abdominal pain. 30 capsule 0 sod jjbzx-rotlnu-piedxh bottle (NEILMED SINUS RINSE COMPLETE) pkdv Use 1 Bottle in each nostril 2 (two) times daily. Use in hot shower 1 hour before bedtime 1 Each 0 No current facility-administered medications for this visit. Acute Complications-Prevention, Detection and Treatment - Assessment of patient understanding: needsreviews Hypoglycemia/hyperglycemia risks, causes, signs, symptoms, treatment, prevention , problem solving, and when to call provider, safe driving practices, travel medication ID use, and sick day care. Current Acute Symptoms: Hypoglycemia - none, Hyperglycemia - none Wallet card/Medical ID: no Carries Quick Carb: Yes Chronic Complications-Prevention, Detection and Treatment - Assessment of patient understanding: needs reviews Risk reduction strategies for the prevention and treatment of nephropathy, neuropathy, infections, and cardiovascular disease. Essential care guidelines ( PCP/dental/eye visits), foot care, signs and symptoms of infection, skin care and hygiene. Recommended vaccines and benefits of smoking cessation. Psychosocial Adjustment and Strategies - Assessment of patient understanding: needs reviews Effects of stress on blood glucose and healthy coping strategies, problem- solving to identify individual stress triggers, tools to use to avoid, alter, or adapt responses, depression risks/symptoms/treatments. Provided with community and support information. Self Management Goals Set By Patient Goal Achievement Healthy Eating I will cut out all sugary drinks and regular jello. I will use the plate method to portion control my meals. I will eat a dinner meal. First visit - New goal Being Active I will walk 10 minutes daily. First visit - New goal Problem Solving I will If my BG is >200, I will drink lots of water and go for a walk. First visit - New goal Diabetes Self-Management Support (DSMS) Plan List the plan that have been decided upon with the patient to sustain a lifetime of living with diabetes beyond the formal diabetes education process: introduction to diabetes, healthy eating, being active, taking medication, monitoriing, problem solving, healthy coping and reducing risk Educational materials given: What is diabetes, Type I and Type II, Hypoglycemia causes and management, Hyperglycemia causes and management, Hg A1C - Know your number, Diabetics meal planning, Build a balanced meal plan, Cholesterol target range , Diabetic Foot Exam, Diabetic eye complications: Diabetes and your eyes, Diebetic Neuropathy, Low carbohydrate diet, Dash diet, Making healthy fast food choices, Dinning out with diabetes, Reading nutrition lables and Increasing physical activity Patient Assistance Provided: Supplies Given: Food diary, 7 days sample meal plan and Ba log book Follow-Up: [address], LD, CDE [facility] Center Operations Research Engineer [address] [place] [address] Electronically signed by: Regla Aburto RD 12/19/2019 Time of visit with patient today equaled: Total Time: 45 minutes, of which more than 50% was for counseling and coordination of care. liza documented in this encounter Plan of Treatment Date Type Specialty Care Team Description 12/26/2019 Office Visit Obstetrics & Gynecology Claritza Velez MD [address] [place] [phone] 06/11/2020 Supervisor Finishing Room Visit Endocrinology Diabetes & Lamonte, Regla, RD Metabolism [address] [place] [address] [phone] Health Maintenance Due Date Last Done Comments [...] filedocumented in this encounter Visit Diagnoses Diagnosis Type 2 diabetes mellitus with complication, without long-term current use of insulin - Primary Obesity (BMI 30-39.9) Obesity, unspecified documented in this encounter Additional Health Concerns Infection Noted Time Resolved Time Contact - ESBL 10/31/2018 4:18 PM COMPREHENSIVE ADVISOR documented as of this encounter Insurance Payer Benefit Plan / Subscriber ID Effective Phone Address Type Group Dates [facility] [id number] 2019-Pres Medicare HEALTHCARE - HEALTHCARE ent Adv HMO MANAGED DUAL COMPLETE MEDICARE HMO TMHP MEDICAID OF xxxxxxxxx 2019-Pres [phone] [place] ent [id number] [place] [address] documented as of this encounter Advance Directives Name Relationship Healthcare Agent Communication Relationship Michelet Brower Life Partner Primary healthcare agent Miranda Morales Sibling Primary healthcare agent
--- OUTSIDE RECORDS SUMMARY | 2020-01-22 17:45 | XMS REPORT | Summary of Care ---
:1985 Author Organization [facility] - Health Address [address] [place] [address] Care Team Providers Name Role Phone Klarissa Delgado Insurance Hmo Karoline Alvarez Primary Care Provider Reason for Visit Reason Comments Refill Request Encounter Details Date Type Department Care Team Description 12/23/2019 Refill [facility] Family Medicine Ulises Smith MD Refill Request - [address] [place] [address] [place] [address] Allergies Active Allergy Reactions Severity Noted Date Comments Ibuprofen Rash 04/19/2017 documented as of this encounter (statuses as of 12/23/2019) Medications Medication Sig Dispensed Refills Start End Status Date Date sod wjmxb-lagwoa-zakmui Use 1 Bottle in each 1 Each [...] trigger azelastine 137 mcg (0.1 Use 1 [place] in each 30 mL 4 Active %) [...] Overview: Added automatically from request for surgery [id number] Epigastric pain 07/25/2019 Overview: Added automatically from request for surgery [id number] Type 2 diabetes mellitus with complication, without [...] Obstetrics & Gynecology Claritza Velez MD [address] [place] [phone] 06/11/2020 College Or University Registrar Visit Endocrinology Diabetes & Lamonte, Regla, RD Metabolism [address] [place] [address] [phone] Health Maintenance Due Date Last Done Comments [...] Time Contact - ESBL 10/31/2018 4:18 PM BUSINESS SYSTEMS ARCHITECT documented as of this encounter Insurance Payer Benefit Plan / Subscriber ID Effective Phone Address Type Group Dates [facility] [id number] 2019-Pres Medicare HEALTHCARE - HEALTHCARE ent Adv HMO MANAGED DUAL COMPLETE MEDICARE HMO TMHP MEDICAID OF xxxxxxxxx 2019-Pres [phone] [place] ent [id number] [place] [address] documented as of this encounter Advance Directives Name Relationship Healthcare Agent Communication Relationship Michelet Inocente Life Partner Primary healthcare agent Miranda Morales Sibling Primary healthcare agent
--- OUTSIDE RECORDS SUMMARY | 2020-01-22 17:46 | XMS REPORT | Summary of Care ---
:1985 Author Organization [facility] Address [address] [place] [address] Care Team Providers Name Role Phone Klarissa Delgado Flores Insurance Hmo Karoline Alvarez Primary Care Provider Reason for Visit Reason Comments Follow-up Encounter Details Date Type Department Care Team Description 01/02/2020 Office Visit [facility] Women's Velez, Claritza, Female infertility associated with anovulation (Primary Dx); [facility]- Diogenes PASTOR Other specified diabetes mellitus with unspecified complications ; [address] [facility], [address] [place] [address] Type 2 diabetes mellitus with complication, without long-term current use of insulin [address] [place] [address] [phone] Allergies Active Allergy Reactions Severity Noted Date Comments Ibuprofen Rash 04/19/2017 documented as of this encounter (statuses as of 01/02/2020) Medications Medication Sig Dispensed Refills Start End Status Date Date sod Use 1 Bottle in 1 Each 0 Active fqehg-rhvryp-slwilq each nostril 2 019 bottle (NEILMED SINUS [...] daily. reflux disease Indications: gastroesophageal reflux disease Fluticasone-Salmetero Inhale 1 Puff 60 Each 1 [...] Take 1 capsule by 62 capsule 0 2 01/09/ Active PERLES) 100 mg mouth 3 (three) 020 2020 capsuleIndications: times daily as Seasonal allergic needed for Cough rhinitis, unspecified for up to 21 days. trigger, Viral URI with cough levocetirizine 5 mg TAKE 1 TABLET BY 30 tablet 4 Active tabletIndications: MOUTH ONCE DAILY 020 Seasonal allergic IN THE EVENING rhinitis, unspecified trigger azelastine 137 mcg Use 1 [place] in 30 mL 4 Active (0.1 %) nasal each nostril 2 020 sprayIndications: (two) times daily. Seasonal allergic Use in each rhinitis, unspecified nostril as trigger directed ACCU-CHEK GUIDE Use as directed, 1 Each 0 Active GLUCOSE METER [facility] once a day to 020 monitor blood glucose for ICD code E11.9 ACCU-CHEK GUIDE strip Use as directed, 100 Strip 2 Active once a day to 020 monitor blood glucose for ICD code E11.9 ACCU-CHEK FASTCLIX Use as directed 1 Kit 0 Active LANCING DEV Kit for once a day 020 blood glucose monitoring for ICD E11.9 ACCU-CHEK FASTCLIX Use as directed 100 Each 0 Active LANCET DRUM Misc for once a day 020 blood glucose monitoring for ICD E11.9 Lancets Misc FastClix lancets, 100 Each 3 Active Use as directed, 020 once a day to monitor blood glucose for ICD code E11.9 medroxyPROGESTERone Take one by mouth 30 tablet 1 Active (PROVERA) 10 mg daily days 1-10 of tabletIndications: each month. Female infertility associated with anovulation medroxyPROGESTERone Take 10 mg by 0 10 mg tablet mouth daily. 2019 (Duplicate) documented as of this encounter (statuses as of 01/02/2020) Active Problems Problem Noted Date Morbid obesity with body mass index of 40.0-49.9 01/02/2020 Indigestion 07/25/2019 Overview: Added automatically from request for surgery [id number] Epigastric pain 07/25/2019 Overview: Added automatically from request for surgery [id number] Type 2 diabetes mellitus with complication, without long-term current use of insulin Neck pain, acute 06/13/2019 Acute bilateral low back pain with bilateral sciatica 06/13/2019 Allergic sinusitis 06/13/2019 Secondary oligomenorrhea 05/10/2019 Overview: 05/10/19 s/p EMB - histology revealed a benign endometrial polyp. Cyclic progesterone started. Abdominal pain, left lower quadrant 05/10/2019 Obesity (BMI 30-39.9) 04/27/2017 documented as of this encounter (statuses as of 01/02/2020) Immunizations Name Administration Dates Next Due Influenza [...] Sign Reading Time Taken Comments Blood Pressure 131/89 01/02/2020 3:20 PM CHIEF WELLNESS OFFICER Pulse 114 01/02/2020 3:20 PM CHIEF WELLNESS OFFICER Temperature 36.7 C (98.1 F) 01/02/2020 3:20 PM CHIEF WELLNESS OFFICER Respiratory Rate 18 01/02/2020 3:20 PM CHIEF WELLNESS OFFICER Oxygen Saturation - - Inhaled Oxygen Concentration - - Weight 107 kg (236 lb) 01/02/2020 3:20 PM CHIEF WELLNESS OFFICER Height 162.6 cm (5' 4") 01/02/2020 3:20 PM CHIEF WELLNESS OFFICER Body Mass Index 40.51 01/02/2020 3:20 PM CHIEF WELLNESS OFFICER documented in this encounter Progress Notes Claritza Velez MD - 01/02/2020 3:30 PM CST Chief complaint: Chief Complaint Patient presents with Follow-up HPI Mckenna Haney is a 34 year old female who presents for f/u of her infertility. Patient has ahistory of irregular menses. Most recently, she has taken Provera 10 mg days 1-10 of the month. Thishas produced a regular menstrual cycle x 3 months. Patient has adjusted her medications with her PCPand is currently taking PNV, glyburide, and provera. She was seen in the ED recently for a right labial abcess. She states that this has resolved with antibiotic therapy. Her history includes spontaneous x 2 @ 12 weeks. Histories OB History Para Term AB Living 2 2 SAB TAB Ectopic Multiple Live Births 2 # Outcome Date GA Lbr Harry/2nd Weight Sex Delivery Anes PTL Lv 2 2017 12w0d 1 2015 12w0d Past Medical History: Diagnosis Date Anxiety Genital herpes type 1 GERD (gastroesophageal reflux disease) HTN (hypertension) Hypercholesteremia Seasonal allergies Trichimoniasis Type 2 diabetes mellitus Family History Problem [...] N/A 08/05/2019 Surgeon: Jeanette Pedro [place] [facility] [place] Socioeconomic History Marital status: Single [...] Activity Sexual Activity Yes Partners: Male control/protection: None, Condom Labs No new labs Radiology No new radiology. Allergies Mckenna is allergic to ibuprofen. Medications Mckenna has a current medication list which includes the following prescription(s ): medroxyprogesterone, lancets, accu-chek fastclix lancet drum, accu-chek fastclix lancing dev, accu-chek guide glucose meter, accu-chek guide, azelastine , benzonatate, levocetirizine, tramadol, glyburide, metronidazole, buspirone, fluticasone propionate, famotidine, fluticasone-salmeterol, dicyclomine, and sod pqban-soxndg-ijmtnu bottle. Review of Systems Constitutional: Negative. HENT: Negative. Eyes: Negative. Respiratory: Negative. Breasts: Negative. Cardiovascular: Negative. Gastrointestinal: Negative. Genitourinary: Negative. Musculoskeletal: Negative. Skin: Negative. Neurological: Negative. Psychiatric/Behavioral: Negative. Endocrine: Endocrine negative BP 131/89 (BP Location: Left arm, Patient Position: Sitting, BP CUFF SIZE: Adult Medium) | Pulse 114 | Temp 36.7 C (98.1 F) (Oral) | Resp 18 | Ht 5 ' 4" (1.626 m) | Wt 236 lb (107 kg) | BMI 40.51 kg/m Pregravid BMI: Could not be calculated Physical Exam External genitalia: Almost complete resolution of her right lateral mons abcess. No induration or erythema. Non tender. Assessment/Plan Female infertility associated with anovulation (primary encounter diagnosis) Comment: Menses q month on Provera. Plan: -Continue Provera 10 mg days 1-10 of each month. If misses menses, patient is to call clinic or check her UPT. We discussed the option of Clomid therapy. Patient does not desire at this point. -We discussed a balanced diet and weight control/loss through a healthy diet. Patient is working with her Strapping Machine Tender, Dr. Aburto, to establish care home diabetes care/health. We will check a HgA1C today. -Vulvar/mons abcess resolved. F/U 2 months or prn. This visit did not involve counseling and coordination that comprised more than 50% of the visit time. Claritza Velez MD documented in this encounter Plan of Treatment Date Type Specialty Care Team Description 01/02/2020 Travel Specialist Visit Phlebotomy Claritza Velez MD [address] [place] [phone] Other specified diabetes mellitus with unspecified complications ; 2, Adc Lab Female infertility associated with anovulation 03/05/2020 Office Visit Obstetrics & Claritza Velez Gynecology [address] [place] [address] [phone] 06/11/2020 Bods Developer Visit Endocrinology Regla Aburto RD Diabetes & [address] [facility] [place] [address] [phone] Name Type Priority Associated Diagnoses Order Schedule GLYCOSYLATED HEMOGLOBIN LAB Routine Other specified diabetes Expected: (A1C) mellitus with unspecified 01/02/2020, Expires: complications 01/02/2021 Female infertility associated with anovulation Health Maintenance Due Date Last Done Comments VARICELLA VACCINES ( of - 1988 2-dose childhood series) EYE EXAM [...] Female infertility associated with anovulation - Primary Other specified diabetes mellitus with unspecified complications Type 2 diabetes mellitus with complication, without long-term current use of insulin documented in this encounter Additional Health Concerns Infection Noted Time Resolved Time Contact - ESBL 10/31/2018 4:18 PM CHIEF WELLNESS OFFICER documented as of this encounter Insurance Payer Benefit Plan / Subscriber ID Effective Phone Address Type Group Dates [facility] [id number] 2019-Pres Medicare HEALTHCARE - HEALTHCARE ent Adv HMO MANAGED DUAL COMPLETE MEDICARE HMO TMHP MEDICAID OF xxxxxxxxx 2019-Pres [phone] [place] ent 900 [id number] [place] [address] documented as of this encounter Advance Directives Name Relationship Healthcare Agent Communication Relationship Michelet Brower Life Partner Primary healthcare agent Miranda Morales Sibling Primary healthcare agent
--- OUTSIDE RECORDS SUMMARY | 2020-01-22 17:46 | XMS REPORT | Summary of Care ---
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 anovulation (Primary Dx); [facility]- Diogenes PASTOR Other specified diabetes mellitus with unspecified complications ; [address] [facility], [address] [place] [address] Type 2 diabetes mellitus with complication, without long-term current use of insulin [address] [place] [phone] Allergies Active Allergy Reactions Severity Noted Date Comments Ibuprofen Rash 04/19/2017 documented as of this encounter (statuses as of 01/02/2020) Medications Medication Sig Dispensed Refills Start End Status Date Date sod Use 1 Bottle in 1 Each 0 Active fdnif-decvre-ubxark each nostril 2 019 bottle (NEILMED SINUS [...] unspecified trigger azelastine 137 mcg Use 1 [place] in 30 mL 4 Active (0.1 %) nasal each nostril 2 020 sprayIndications: (two) times daily. Seasonal allergic Use in each rhinitis, unspecified nostril as trigger directed ACCU-CHEK GUIDE Use as directed, 1 Each 0 Active GLUCOSE METER [facility] [place] to 020 monitor blood [...] Overview: Added automatically from request for surgery [id number] Epigastric pain 07/25/2019 Overview: Added automatically from request for surgery [id number] Type 2 diabetes mellitus with complication, without [...] Comments Blood Pressure 131/89 01/02/2020 3:20 PM RN QUALITY Pulse 114 01/02/2020 3:20 PM RN QUALITY Temperature 36.7 C (98.1 F) 01/02/2020 3:20 PM RN QUALITY Respiratory Rate 18 01/02/2020 3:20 PM RN QUALITY Oxygen Saturation - - Inhaled Oxygen Concentration - - Weight 107 kg (236 lb) 01/02/2020 3:20 PM RN QUALITY Height 162.6 cm (5' 4") 01/02/2020 3:20 PM RN QUALITY Body Mass Index 40.51 01/02/2020 3:20 PM RN QUALITY documented in this encounter Progress Notes Claritza [...] N/A 08/05/2019 Surgeon: Jeanette Pedro MD; [place] [facility] [place] Social History Socioeconomic History Marital status: Single [...] fluticasone propionate, famotidine, fluticasone-salmeterol, dicyclomine, and sod vqyqi-zwuiky-aytotg bottle. Review of Systems Constitutional: Negative. HENT: [...] healthy diet. Patient is working with her National Sales Executive, Dr. Aburto, to establish group home diabetes care/health. We will check a HgA1C today. -Vulvar/mons abcess resolved. F/U 2 months or prn. This visit did not involve counseling and coordination that comprised more than 50% of the visit time. Claritza Velez MD documented in this encounter Plan of Treatment Date Type Specialty Care Team Description 01/02/2020 Dry End Tester Visit Phlebotomy Claritza Velez MD [address] [place] [phone] Other specified diabetes mellitus with unspecified complications ; 2, [facility] Female infertility associated with anovulation 03/05/2020 Office Visit Obstetrics & Claritza Velez Gynecology [address] [place] [phone] 06/11/2020 Installations Inspector Visit Endocrinology Regla Aburto RD Diabetes & [address] [facility] [place] [address] [phone] Name Type Priority Associated Diagnoses Order Schedule [...] Time Contact - ESBL 10/31/2018 4:18 PM RN QUALITY documented as of this encounter Insurance Payer Benefit Plan / Subscriber ID Effective Phone Address Type Group Dates [facility] [id number] 2019-Pres Medicare HEALTHCARE - HEALTHCARE ent Adv HMO MANAGED DUAL COMPLETE MEDICARE HMO TMHP MEDICAID OF xxxxxxxxx 2019-Pres [phone] [place] ent [id number] [place] [address] documented as of this encounter Advance Directives Name Relationship Healthcare Agent Communication Relationship Michelet Brower Life Partner Primary healthcare agent Miranda Morales Sibling Primary healthcare agent
--- OUTSIDE RECORDS SUMMARY | 2020-01-22 17:46 | XMS REPORT | Summary of Care ---
:1985 Author Organization [facility] - Health Address [address] [place] [address] Care Team Providers Name Role Phone Klarissa Delgado Insurance Hmo Karoline Alvarez Primary Care Provider Reason for Visit Reason Comments Rx Concern/Question Encounter Details Date Type Department Care Team Description 12/31/2019 Telephone [facility] Family Karoline Alvarez FNP Rx Concern/Question Medicine - [place] [address] [place] [address] [place], [place] [phone] Allergies Active Allergy Reactions Severity Noted Date Comments Ibuprofen Rash 04/19/2017 documented as of this encounter (statuses as of 12/31/2019) Medications Medication Sig Dispensed Refills Start End Status Date Date sod gnwew-adgabf-fqtdyk Use 1 Bottle in each 1 Each [...] trigger azelastine 137 mcg (0.1 Use 1 [place] in each 30 mL 4 Active %) [...] as of this encounter (statuses as of 12/31/2019) Active Problems Problem Noted Date Indigestion 07/25/2019 Overview: Added automatically from request for surgery [id number] Epigastric pain 07/25/2019 Overview: Added automatically from request for surgery [id number] Type 2 diabetes mellitus with complication, without long-term current use of insulin Neck pain, acute 06/13/2019 Acute bilateral low back pain with bilateral sciatica 06/13/2019 Allergic sinusitis 06/13/2019 Secondary oligomenorrhea 05/10/2019 Overview: 05/10/19 s/p EMB - histology revealed a benign endometrial polyp. Cyclic progesterone started. 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
--- OUTSIDE RECORDS SUMMARY | 2020-01-22 17:47 | XMS REPORT | Summary of Care ---
:[address] [facility] Address [address] [place] [address] Care Team Providers Name Role Phone Klarissa Delgado Flores Insurance Hmo Karoline Alvarez Primary Care Provider Reason for Visit Reason Comments LAB Encounter Details Date Type Department Care Team Description 01/02/2020 Airborne Operations Manager Visit [facility] Claritza Velez MD [address] [place] [phone] Other specified diabetes mellitus with unspecified complications ; Professional Office 2, [facility] Female infertility associated with anovulation Building Phlebotomy Lab Professional Office Building [address] [place] [address] , [address] [place] [address] Allergies Active Allergy Reactions Severity Noted Date Comments Ibuprofen Rash 04/19/2017 documented as of this encounter (statuses as of 01/02/2020) Medications Medication Sig Dispensed Refills Start End Status Date Date sod zntuo-kpuakf-fivnnn Use 1 Bottle in each 1 Each [...] Take 1 capsule by 62 capsule 0 // Active PERLES) 100 mg mouth 3 (three) 0 020 capsuleIndications: times daily as Seasonal allergic needed for Cough for rhinitis, unspecified up to 21 days. trigger, Viral URI with cough levocetirizine 5 mg TAKE 1 TABLET BY 30 tablet 4 Active tabletIndications: MOUTH ONCE DAILY IN 0 Seasonal allergic THE EVENING rhinitis, unspecified trigger azelastine 137 mcg (0.1 Use 1 [place] in each 30 mL 4 Active %) [...] Overview: Added automatically from request for surgery [id number] Epigastric pain 07/25/2019 Overview: Added automatically from request for surgery [id number] Type 2 diabetes mellitus with complication, without [...] Visit Obstetrics & Gynecology Claritza Velez MD [address] [place] [address] [phone] 06/11/2020 Ux Architect Visit Endocrinology Diabetes & LamonteRegla alvarez, ANTONIO Metabolism [address] [place], [place] [address] Health Maintenance Due Date Last Done Comments [...] filedocumented in this encounter Visit Diagnoses Diagnosis Other specified diabetes mellitus with unspecified complications Female infertility associated with anovulation documented in this encounter Additional Health Concerns Infection Noted Time Resolved Time Contact - ESBL 10/31/2018 4:18 PM 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
--- OUTSIDE RECORDS SUMMARY | 2020-01-22 17:48 | XMS REPORT | Summary of Care ---
:1985 Author Organization [facility] - [facility] Address [address] [place] [address] Care Team Providers Name Role Phone Klarissa Delgado Insurance Hmo Karoline Alvarez SENIOR ENERGY ANALYST Primary Care Provider Reason for Visit Reason Comments Rash Encounter Details Date Type Department Care Team Description 01/07/2020 Office Visit [facility] Family Karoline Alvarez, Constipation, unspecified constipation type (Primary Dx); [facility] Gastroesophageal reflux disease without esophagitis; [address] Oscar infection of flexural skin; Drive Drive Acanthosis nigricans [place], [place] [address] [address] [place], [place] [phone] Allergies Active Allergy Reactions Severity Noted Date Comments Ibuprofen Rash 04/19/2017 documented as of this encounter (statuses as of 01/07/2020) Medications Medication Sig Dispensed Refills Start End Status Date Date sod Use 1 Bottle in 1 Each 0 Active xnljq-xncfgh-zuysry each nostril 2 019 bottle (NEILMED SINUS (two) times daily. RINSE COMPLETE) Use in hot shower pkdvIndications: 1 hour before Sinusitis, bedtime unspecified chronicity, unspecified location dicyclomine (BENTYL) Take 1 capsule by 30 capsule 0 05/21/ Active 10 mg mouth every 8 019 capsuleIndications: (eight) hours as Epigastric pain needed for Abdominal pain. Fluticasone-Salmetero Inhale 1 Puff 60 Each 1 [...] unspecified trigger azelastine 137 mcg Use 1 [place] in 30 mL 4 Active (0.1 %) nasal each nostril 2 020 sprayIndications: (two) times daily. Seasonal allergic Use in each rhinitis, unspecified nostril as trigger directed ACCU-CHEK GUIDE Use as directed, 1 Each 0 Active GLUCOSE METER Misc once a day to 020 monitor blood [...] Active (PROVERA) 10 mg daily days 1-10 tabletIndications: each month. Female infertility associated with anovulation famotidine 20 mg Take 1 tablet by 60 tablet 2 04/06/ Active tabletIndications: mouth 2 (two) 2019 gastroesophageal times daily before reflux disease breakfast and dinner for 90 days. Indications: gastroesophageal reflux disease docusate (COLACE) 100 Take 1 capsule by 30 capsule 1 2 03/07/ Active mg mouth daily for 60 2019 capsuleIndications: days. Constipation, unspecified constipation type polyethylene glycol Take 17 g by mouth 85 g 0 01/12/ Active (MIRALAX) 17 daily for 5 days. 2019 gram/dose powderIndications: Constipation, unspecified constipation type clotrimazole-betameth Apply to area(s) 15 g 0 01/27/ Active asone (LOTRISONE) 2 (two) times 2019 creamIndications: daily for 21 days. Oscar infection of flexural skin famotidine 20 mg Take 20 mg by 0 01/07/ Discontinued tabletIndications: mouth 2 (two) 2019 (Reorder) gastroesophageal times daily. reflux disease Indications: gastroesophageal reflux disease documented as of this encounter (statuses as of 01/07/2020) Active Problems Problem Noted Date Morbid obesity with body mass index of 40.0-49.9 01/02/2020 Indigestion 07/25/2019 Overview: Added automatically from request for surgery [id number] Epigastric pain 07/25/2019 Overview: Added automatically from request for surgery [id number] Type 2 diabetes mellitus with complication, without long-term current use of insulin Neck pain, acute 06/13/2019 Acute bilateral low back pain with bilateral sciatica 06/13/2019 Allergic sinusitis 06/13/2019 Secondary oligomenorrhea 05/10/2019 Overview: 05/10/19 s/p EMB - histology revealed a benign endometrial polyp. Cyclic progesterone started. Abdominal pain, left lower quadrant 05/10/2019 Obesity (BMI 30-39.9) 04/27/2017 documented as of this encounter (statuses as of 01/07/2020) Immunizations Name Administration Dates Next Due Influenza [...] Sign Reading Time Taken Comments Blood Pressure 134/83 01/07/2020 3:28 PM YOUTH CAREER SPECIALIST Pulse 83 01/07/2020 3:28 PM YOUTH CAREER SPECIALIST Temperature - - Respiratory Rate - - Oxygen Saturation 99% 01/07/2020 3:28 PM YOUTH CAREER SPECIALIST Inhaled Oxygen Concentration - - Weight 106.6 kg (235 lb) 01/07/2020 3:28 PM YOUTH CAREER SPECIALIST Height - - Body Mass Index 40.34 01/04/2020 11:48 AM YOUTH CAREER SPECIALIST documented in this encounter Patient Instructions Patient InstructionsKaroline Alvarez FNP - 01/07/2020 3:40 PM CST Understanding Acanthosis Nigricans Acanthosis nigricans is a skin condition. It causes dark, thick patches on the skin. These patches often occur in the folds or creases of the skin, such as on the neck. It is more common in people who are obese. Americans are also more prone to it. How to say it hx-wx-EHU-gabbie HUTCHINSONGR-qxgx-btkhv What causes acanthosis nigricans? It isnt always clear exactly what causes this skin problem. It may partly be genetic. But it is also linked to insulin resistance and diabetes. Many cases occur in people who have diabetes or who are obese and on the verge of developing diabetes. In rare cases, it has been linked to some cancers, such as melanoma and stomach cancer. Some medicines may also cause it. These include control pills and steroids. Symptoms of acanthosis nigricans This skin condition can flare up anywhere on the body. But the dark-colored patches are often found on the neck, armpits, groin, elbows, and back of the knees. The skin may look dirty and dry at first.It then thickens and darkens. The patches are velvety in texture and even in shape. They may range in color from brown to black. Treatment for acanthosis nigricans This skin condition can be treated. Treatment options include: Managing the underlying health problem. Some cases of this skin condition will go away if you take care of the health problem that may be causing it. For example, if you are obese, your skin may improve if you lose some weight. People with diabetes may have clearer skin if they keep their blood sugar under control. Using medicines for the skin (topical). Certain creams, lotions, or gels may help lighten up the skin. When to call your healthcare provider Call your healthcare provider right away if you have any of these: Fever of 100.4F (38C) or higher, or as directed Pain that gets worse Symptoms that dont get better, or get worse New symptoms [employer] last reviewed this educational content on 03/27/201619997927-9575 [employer]. [address] [place] [address], [place] [address]. All rights reserved. This information is not intended as a substitute for professional medical care. Always follow your healthcare professional's instructions. Tips to Control Acid Reflux To control acid reflux, youll need to make some basic diet and lifestyle changes. The simple steps outlined below may be all youll need to ease discomfort. Watch what you eat Don't have fatty foods or spicy foods. Eat fewer acidic foods, such as citrus and tomato-based foods. These can increase symptoms. Limit drinking alcohol, caffeine, and fizzy beverages. All increase acid reflux. Try limiting chocolate, peppermint, and spearmint.These can make acid reflux worse in some people. Watch when you eat Don't lie down jyy4fvukl after eating. Don't snack before going to bed. Raise your head Raising your head and upper body by 4 to 6 incheshelps limit reflux when you re lying down. Put blocks under the head of your bed frame or a wedge under your mattress to raise it. Other changes Lose weight, if you need to Dont exercise near bedtime Don't wear tight-fitting clothes Limit aspirin and ibuprofen Stop smoking [employer] last reviewed this educational content on 04/27/201919997414-8806 [employer]. [address] [place] [address]. All rights reserved. This information is not intended as a substitute for professional medical care. Always follow your healthcare professional's instructions. Oscar Skin Infection (Adult) Oscar is a type of yeast. It grows naturally on the skin and in the mouth. If it grows out of control, it can cause an infection. Oscar can cause infections in the genital area, skin folds, in the mouth, and under the breasts. Anyone can get this infection. It is more common in a person with a weak immune system, such as from diabetes, HIV, or cancer. Its also more common in someone who has been on antibiotic therapy. And its more common in people who are overweight or who have incontinence. Wearing tight-fitting clothing and taking part in activities with lots of hujq-ip-daah contact canalso put you at risk. Oscar causes the skin to become bright red and inflamed. The border of the infected part of the skin is often raised. The infection causes pain and itching. Sometimes the skin peels and bleeds. In the mouth, oscar is called thrush, and may cause white thickened areas. A Oscar rash is most often treated with an antifungal cream, gel, or powder. . The rash will cleara few days after starting the medicine. Infections that dont go away may need a prescription medicine. In rare cases, a bacterial infection can also occur. Home care Your healthcare provider will advise using an antifungal cream, powder, or gel for the rash. He or she may also prescribe a medicine for the itch. Follow all instructions for using these medicines. General care Keep your skin clean by washing the area twice a day. Use the medicine as directed until your rash is gone. Once the skin has healed, keep it dry to prevent another infection. If you are overweight, talk with your healthcare provider about a plan to lose extra weight. Don't wear tight-fitting clothes. Follow-up care Follow up with your healthcare provider, or as advised. Your rash will clear in 7 to 14 days. Call your provider if the rash is not gone after 14 days. When to get medical advice Call your healthcare provider right awayif any of these occur: Pain or redness that gets worse or spreads Fluid coming from the skin Yellow crusts on the skin Fever of 100.4F (38C) or higher, or as directed by your provider Kimberly nowak reviewed this educational content on 07/28/201619991570-4892 [employer]. [address] [place] [address], [place] [address]. All rights reserved. This information is not intended as a substitute for professional medical care. Always follow your healthcare professional's instructions. H CAREER SPECIALIST documented in this encounter Progress Notes Karoline Alvarez FNP - 01/07/2020 3:40 PM CST Cc: Chief Complaint Patient presents with Rash Mckenna Haney is a 34 year old female. Patient is initially here with abdominal pain-epigastric for which she was seen at the ER 2 days ago. She states, all they told her at the ER was that all labs are normal. She continues to have epigastric pain with intermittent nausea but no vomiting and once in a while heart burn. She does have a hx of GERD, prescribed famotidine but not taking it- according to patient, she didn't know she has to beon that medication long ter. Then, she reports no BM for 5 days, small hard ones this morning; this comes and goes. Denies blood or mucus in stool, and no other associated symptoms besides fullness/bloating. She also has a rash along the folds of skin, mainly inner elbow folds and abdominal fold- she is a diabetic. Symptoms worse when she sweats,a dn she does swat a lot. She also has questions about darkening along the folds of her neck in the back, her is bothered by it, thinks is hygiene issue. Constipation Severity: Moderate Time since last bowel movement: 5 days Timing: Intermittent Progression: Unchanged Chronicity: Recurrent Context: dietary changes and stress Stool description: Hard Relieved by: Nothing Worsened by: Nothing Ineffective treatments: None tried Associated symptoms: abdominal pain (fullness) Abdominal pain: Location: Epigastric Quality: tugging Severity: Mild Onset quality: Gradual Timing: Intermittent Progression: Worsening Chronicity: Recurrent Risk factors: obesity Allergies Mckenna is allergic to ibuprofen. Medications Outpatient Medications Prior to Visit Medication Sig Dispense Refill medroxyPROGESTERone (PROVERA) 10 mg tablet Take one by mouth daily days 1- 10 of each month. 30 tablet 1 Lancets Misc FastClix lancets, Use as directed, once a day to monitor blood glucose for ICD codeE11.9 100 Each 3 ACCU-CHEK FASTCLIX LANCET DRUM Misc Use as directed for once a day blood glucose monitoring for ICD E11.9 100 Each 0 ACCU-CHEK FASTCLIX LANCING DEV Kit Use as directed for once a day blood glucose monitoring for ICD E11.9 1 Kit 0 ACCU-CHEK GUIDE GLUCOSE METER Misc Use as directed, once a day to monitor blood glucose for ICD code E11.9 1 Each 0 ACCU-CHEK GUIDE strip Use as directed, once a day to monitor blood glucose for ICD code E11.9 100 Strip 2 azelastine 137 mcg (0.1 %) nasal spray Use 1 [place] in each nostril 2 (two) times daily. Use in each nostril as directed 30 mL 4 benzonatate (TESSALON PERLES) 100 mg capsule Take 1 capsule by mouth 3 ( three) times daily as needed for Cough for up to 21 days. 62 capsule 0 levocetirizine 5 mg tablet TAKE 1 TABLET BY MOUTH ONCE DAILY IN THE EVENING 30 tablet 4 traMADol 50 mg tablet Take 1 tablet [...] 2 (two) times daily. 16 g 4 Fluticasone-Salmeterol (ADVAIR DISKUS) 100-50 mcg/dose inhalation disk Inhale 1 Puff every 12 (twelve) hours. 60 Each 1 famotidine 20 mg tablet Take 20 mg by mouth 2 (two) times daily. Indications : gastroesophageal reflux disease dicyclomine (BENTYL) 10 mg capsule Take 1 capsule by mouth every 8 (eight) hours as needed for Abdominal pain. 30 capsule 0 sod bhmpc-awqtnd-hewuvy bottle (NEILMED SINUS RINSE COMPLETE) pkdv Use [...] N/A 08/05/2019 Surgeon: Jeanette Pedro MD; Location: [facility] Social History Socioeconomic History Marital status: Single [...] file Gets together: Not on file Attends voodoo service: Not on file Active member of [...] leg swelling. Gastrointestinal: Positive for abdominal pain (fullness) and constipation. Skin: Positive for rash. Neurological: Negative. Endocrine: Endocrine negative Vital Signs BP 134/83 | Pulse 83 | Wt 235 lb (106.6 kg) | SpO2 99% | BMI 40.34 kg/m Physical Exam Constitutional: She is oriented [...] sounds are normal. She exhibits no distension (large girth). There is no tenderness. There is no guarding. Neurological: She is alert and oriented to person, place, and time. Skin: Skin is warm and dry. Capillary refill takes less than 2 seconds. Rash noted. Rash is papular.No erythema. No pallor. Psychiatric: She has a normal mood and affect. Nursing note and vitals reviewed. Assessment/Plan 1. GERD: PPI restarted today. Avoid any known triggers such as eating late at night, spicy food, acidic food, excessive caffeine intake, smoking, weight gain , eating and lying down immediately e.t.c. If no improvement or worse, will consider referral to GI for further eval and tx. 2. Constipation: miralax for a few days ordered, and colace daily. Hydration, routine exercise, fiber rich diet encouraged. 3. Oscar Skin: Lotrisone cream ordered. Keep your skin clean by washing the area twice a day. Use the medicine as directed until your rash is gone. Once the skin has healed, keep it dry to prevent another infection. If you are overweight, talk with your healthcare provider about a plan to lose extra weight. Don't wear tight-fitting clothes. 4. Acanthosis Nigricans: Patient reassured this is related to diabetes not hygiene issue. Clinical references for home care instructions reviewed and copy given. RTC if no relief from above issues, worse or new onset of symptoms. Plan of care, desired health behaviors, goals, and medication discussed with patient. Education resources provided and reviewed with AVS. Patient/guardian/family verbalized understanding & agrees to plan of care. This visit did not involve counseling and coordination that comprised more than 50% of the visit time. If applicable, the [place] [employer] database was accessed to review any controlled substance prescription claims data. The [employer] prescription claims data in [employer] was reviewed to assess patient compliance with the medication treatment plan. documented in this encounter Plan of Treatment Date Type Specialty Care Team Description 03/05/2020 Office Visit Obstetrics & Gynecology Claritza Velez MD [address] [place] [address] [phone] 06/11/2020 Radar Air Traffic Controller Visit Endocrinology Diabetes & Regla Abur[address] Metabolism [address] [place] [address] [phone] Health Maintenance Due Date Last Done Comments [...] filedocumented in this encounter Visit Diagnoses Diagnosis Constipation, unspecified constipation type - Primary Gastroesophageal reflux disease without esophagitis Esophageal reflux Oscar infection of flexural skin Candidiasis of skin and nails Acanthosis nigricans Acquired acanthosis nigricans documented in this encounter Additional Health Concerns Infection Noted Time Resolved Time Contact - ESBL 10/31/2018 4:18 PM YOUTH CAREER SPECIALIST documented as of this encounter Insurance Payer Benefit Plan / Subscriber ID Effective Phone Address Type Group Dates [facility] [id number] 2019-Pres Medicare HEALTHCARE - HEALTHCARE ent Adv HMO MANAGED DUAL COMPLETE MEDICARE HMO TMHP MEDICAID OF xxxxxxxxx 2019-Pres [phone] [place] ent [id number] [place] [address] documented as of this encounter Advance Directives Name Relationship Healthcare Agent Communication Relationship Michelet Brower Life Partner Primary healthcare agent Miranda Morales Sibling Primary healthcare agent "
--- OUTSIDE RECORDS SUMMARY | 2020-01-22 17:48 | XMS REPORT | Summary of Care ---
:1985 Author Organization [facility] - [facility] Address [address] [place] [address] Care Team Providers Name Role Phone Klarissa Delgado Insurance Hmo Karoline Alvarez MUCK MINER Primary Care Provider Reason for Visit Reason Comments Rash Encounter Details Date Type Department Care Team Description 01/07/2020 Office Visit [facility] Family Karoline Alvarez, Constipation, unspecified constipation type (Primary Dx); [facility] Gastroesophageal reflux disease without esophagitis; [address] Oscar infection of flexural skin; Drive Drive Acanthosis nigricans [place], [place] [address] [phone] [place] [phone] Allergies Active Allergy Reactions Severity Noted Date Comments Ibuprofen Rash 04/19/2017 documented as of this encounter (statuses as of 01/07/2020) Medications Medication Sig Dispensed Refills Start End Status Date Date sod Use 1 Bottle in 1 Each 0 Active qihlm-foneil-jhlneh each nostril 2 019 bottle (NEILMED SINUS [...] unspecified trigger azelastine 137 mcg Use 1 [place] in 30 mL 4 Active (0.1 %) [...] Overview: Added automatically from request for surgery [id number] Epigastric pain 07/25/2019 Overview: Added automatically from request for surgery [id number] Type 2 diabetes mellitus with complication, without [...] Comments Blood Pressure 134/83 01/07/2020 3:28 PM SEMICONDUCTOR PACKAGES TESTER Pulse 83 01/07/2020 3:28 PM SEMICONDUCTOR PACKAGES TESTER Temperature - - Respiratory Rate - - Oxygen Saturation 99% 01/07/2020 3:28 PM SEMICONDUCTOR PACKAGES TESTER Inhaled Oxygen Concentration - - Weight 106.6 kg (235 lb) 01/07/2020 3:28 PM SEMICONDUCTOR PACKAGES TESTER Height - - Body Mass Index 40.34 01/04/2020 11:48 AM SEMICONDUCTOR PACKAGES TESTER documented in this encounter Patient Instructions Patient [...] prone to it. How to say it sm-ur-ZKO-gabbie HUTCHINSONSU-rubq-ztlvc What causes acanthosis nigricans? It isnt always [...] get better, or get worse New symptoms [employer] last reviewed this educational content on 03/27/201619999240-7238 The [employer]. [address] [place] [address], [place] [address]. All rights reserved. This information is not [...] Watch when you eat Don't lie down cal5dwfpb after eating. Don't snack before going to [...] clothes Limit aspirin and ibuprofen Stop smoking [employer] last reviewed this educational content on 04/27/201919999220-7542 [employer]. [address] [place] [address]. All rights reserved. This information is not [...] taking part in activities with lots of ncff-am-ipfc contact canalso put you at risk. Oscar [...] Kimberly nowak reviewed this educational content on 07/28/201619998296-3398 [employer]. [address] [place] [address], [place] [address]. All rights reserved. This information is not intended as a substitute for professional medical care. Always follow your healthcare professional's instructions. CONDUCTOR PACKAGES TESTER documented in this encounter Progress Notes Karoline [...] mcg (0.1 %) nasal spray Use 1 [place] in each nostril 2 (two) times daily. [...] for Abdominal pain. 30 capsule 0 sod kxcdk-hgmsva-dksdms bottle (NEILMED SINUS RINSE COMPLETE) pkdv Use [...] 08/05/2019 Surgeon: Jeanette Pedro MD; Location: [facility] [place] Social History Socioeconomic History Marital status: Single [...] file Gets together: Not on file Attends uatsdin service: Not on file Active member of [...] of the visit time. If applicable, the [place] [employer] database was accessed to review any controlled substance prescription claims data. The [employer] prescription claims data in [employer] was reviewed to assess patient compliance with the medication treatment plan. documented in this encounter Plan of Treatment Date Type Specialty Care Team Description 03/05/2020 Office Visit Obstetrics & Gynecology Claritza Velez MD [address] [place] [address] [phone] 06/11/2020 Stripper Cutter Machine Visit Endocrinology Diabetes & Regla Aburto [address] Metabolism [address] [place] [address] [phone] Health Maintenance Due Date Last Done Comments [...] Time Contact - ESBL 10/31/2018 4:18 PM SEMICONDUCTOR PACKAGES TESTER documented as of this encounter Insurance Payer Benefit Plan / Subscriber ID Effective Phone Address Type Group Dates [facility] [id number] 2019-Pres Medicare HEALTHCARE - HEALTHCARE ent Adv HMO MANAGED DUAL COMPLETE MEDICARE HMO TMHP MEDICAID OF xxxxxxxxx 2019-Pres [phone] [place] ent [address] [id number] [place] [address] documented as of this encounter Advance Directives Name Relationship Healthcare Agent Communication Relationship Michelet Brower Life Partner Primary healthcare agent Miranda Morales Sibling Primary healthcare agent "
--- OUTSIDE RECORDS SUMMARY | 2020-01-22 17:48 | XMS REPORT | Summary of Care ---
:1985 Author Organization [facility] - Health Address [address] [place] [id number] Care Team Providers Name Role Phone Klarissa Delgado Insurance Hmo Karoline Alvarez Primary Care Provider Reason for Visit Reason Comments Assessment Triage Encounter Details Date Type Department Care Team Description 01/06/2020 Telephone [facility] Family Karoline Alvarez FNP Assessment (Triage) Medicine - [place] [id number] [place] [phone] [place], [place] [phone] Allergies Active Allergy Reactions Severity Noted Date Comments Ibuprofen Rash 04/19/2017 documented as of this encounter (statuses as of 01/07/2020) Medications Medication Sig Dispensed Refills Start End Status Date Date sod jgnfu-ojgmfj-kjykob Use 1 Bottle in each 1 Each [...] trigger azelastine 137 mcg (0.1 Use 1 [place] in each 30 mL 4 Active %) [...] Overview: Added automatically from request for surgery [id number] Epigastric pain 07/25/2019 Overview: Added automatically from request for surgery [id number] Type 2 diabetes mellitus with complication, without [...] Treatment Date Type Specialty Care Team Description 01/07/2020 Office Visit Family Medicine Karoline Alvarez, GABI [address] [phone] 03/05/2020 Office Visit Obstetrics & Gynecology Claritza Velez MD [address] [place] [phone] 06/11/2020 Refrigeration Houseman Visit Endocrinology Diabetes & LamonteRegla alvarez, ANTONIO Metabolism [address] [place] [address] [phone] Health Maintenance Due Date Last Done Comments [...] Time Contact - ESBL 10/31/2018 4:18 PM 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
--- OUTSIDE RECORDS SUMMARY | 2020-01-22 17:48 | XMS REPORT | Summary of Care ---
:1985 Author Organization [facility] - Health Address [address] [place] [address] Care Team Providers Name Role Phone Rafykaris Klarissa L Insurance Hmo Karoline Alvarez Primary Care Provider Reason for Visit Reason Comments Abdominal Pain Auth/Cert Status Reason Specialty Diagnoses / Referred By Referred To Procedures Contact Contact Emergency [facility] [address] [place] [address] [place] [address] Encounter Details Date Type Department Care Team Description 01/04/2020 Emergency [facility] Antonio Dyer MD Epigastric pain Department [address] [place] [address] (Primary Dx) [address] [place] [address] [id number] [place] [address] [place], [place] [phone] [id number] Allergies Active Allergy Reactions Severity Noted Date Comments Ibuprofen Rash 04/19/2017 documented as of this encounter (statuses as of 01/04/2020) Medications Medication Sig Dispensed Refills Start End Status Date Date sod lbnkx-cydwlj-mmofyx Use 1 Bottle in each 1 Each [...] trigger azelastine 137 mcg (0.1 Use 1 [place] in each 30 mL 4 Active %) [...] as of this encounter (statuses as of 01/04/2020) Active Problems Problem Noted Date Morbid obesity with body mass index of 40.0-49.9 01/02/2020 Indigestion 07/25/2019 Overview: Added automatically from request for surgery [id number] Epigastric pain 07/25/2019 Overview: Added automatically from request for surgery [id number] Type 2 diabetes mellitus with complication, without long-term current use of insulin Neck pain, acute 06/13/2019 Acute bilateral low back pain with bilateral sciatica 06/13/2019 Allergic sinusitis 06/13/2019 Secondary oligomenorrhea 05/10/2019 Overview: 05/10/19 s/p EMB - histology revealed a benign endometrial polyp. Cyclic progesterone started. Abdominal pain, left lower quadrant 05/10/2019 Obesity (BMI 30-39.9) 04/27/2017 documented as of this encounter (statuses as of 01/04/2020) Immunizations Name Administration Dates Next Due Influenza [...] Sign Reading Time Taken Comments Blood Pressure 127/84 01/04/2020 1:00 PM LOT ATTENDANT Pulse 92 01/04/2020 1:00 PM LOT ATTENDANT Temperature 37.2 C (98.9 F) 01/04/2020 11:48 AM LOT ATTENDANT Respiratory Rate 16 01/04/2020 1:00 PM LOT ATTENDANT Oxygen Saturation 100% 01/04/2020 1:00 PM LOT ATTENDANT Inhaled Oxygen Concentration - - Weight 108 kg (238 lb) 01/04/2020 11:48 AM LOT ATTENDANT Height 162.6 cm (5' 4") 01/04/2020 11:48 AM LOT ATTENDANT Body Mass Index 40.85 01/04/2020 11:48 AM LOT ATTENDANT documented in this encounter Discharge Instructions Antonio Del Rio MD - 01/04/2020 DIAGNOSIS Diagnoses that have been ruled out: None Diagnoses that are still under consideration: None Final diagnoses: Epigastric pain NO LIFE-THREATENING FINDINGS ON TODAY'S EXAM. PROCEDURES IN THE ER TODAY: Orders Placed This Encounter Procedures CBC WITH DIFF BASIC METABOLIC PANEL (NA, K, CL, CO2, GLUCOSE, BUN, CREATININE, CA) HEPATIC FUNCTION PANEL (45393) (ALB,T.PRO,BILI T,BU/BC,ALT,AST,ALK PHOS) LIPASE URINALYSIS POCT TEST CBC WITH DIFFERENTIAL MEDICATIONS ADMINISTERED IN THE ER TODAY: Orders Placed This Encounter Medications maalox:diphenhydrAMINE:lidocaine 2 % viscous 1:1:1 (FIRST-MOUTHWASH BLM) oral suspension 15 mL ondansetron (ZOFRAN (PF)) injection 4 mg YOUR PRESCRIPTIONS AND [id number] MEDICATION RECOMMENDATIONS: Continue home medications SPECIAL CARE INSTRUCTIONS: Follow up with PCP FOLLOW-UP RECOMMENDATIONS: RECOMMEND FOLLOW-UP WITH A PRIMARY CARE PROVIDER OR SPECIALIST IN 2-5 DAYS, ESPECIALLY IF NO IMPROVEMENT IN SYMPTOMS. TO FOLLOW-UP WITHIN THE [facility], TRY THESE OPTIONS (CLINIC APPOINTMENTS AVAILABLE ON AVBN-JW-NYOF BASIS): 1. SCHEDULE AN APPOINTMENT ONLINE AT [facility] 2. OR CALL THE [facility] ACCESS CENTER AT OR 3. OR CALL YOUR [facility] PHYSICIAN'S OFFICE DIRECTLY IF YOU ARE ALREADY AN ESTABLISHED [facility] PATIENT. OR, YOU MAY FOLLOW-UP WITH A PROVIDER OF YOUR CHOICE, SUCH : 1. A PHYSICIAN OF YOUR CHOICE 2. [facility], . LOCATIONS IN [facility] 3. [facility], [address] [facility], [place], [place]; RETURN TO ER FOR WORSENING OF SYMPTOMS. AttachmentsThe following attachments cannot be sent through Care Everywhere.Abdominal Pain, Adult ([place])documented in this encounter Plan of Treatment Date Type Specialty Care Team Description 03/05/2020 Office Visit Obstetrics & Gynecology Claritza Velez MD [address] [place] [phone] 06/11/2020 Table Cover Folder Visit Endocrinology Diabetes & LamonteRegla alvarez, RD Metabolism [address] [place] [address] Health Maintenance Due Date Last Done Comments [...] Associated Comments Diagnosis CBC WITH DIFFERENTIAL STAT 01/04/2020 12:12 Epigastric pain Results for this PM LOT ATTENDANT procedure are in the results section. URINALYSIS STAT 01/04/2020 12:12 Epigastric pain Results for this PM LOT ATTENDANT procedure are in the results section. CBC WITH DIFFERENTIAL STAT 01/04/2020 12:12 Epigastric pain Results for this PM LOT ATTENDANT procedure are in the results section. BASIC METABOLIC PANEL STAT 01/04/2020 12:12 Epigastric pain Results for this (NA, K, CL, CO2, PM LOT ATTENDANT procedure are in GLUCOSE, BUN, the results CREATININE, CA) section. HEPATIC FUNCTION STAT 01/04/2020 12:12 Epigastric pain Results for this PANEL (34003) PM LOT ATTENDANT procedure are in (ALB,T.PRO,BILI the results T,BU/BC,ALT,AST,ALK section. PHOS) LIPASE STAT 01/04/2020 12:12 Epigastric pain Results for this PM LOT ATTENDANT procedure are in the results section. POCT TEST BHARATHI 01/04/2020 12:11 Epigastric pain Results for this PM LOT ATTENDANT procedure are in the results section. NOTICE OF PRIVACY Routine 01/04/2020 11:40 PRACTICES AM LOT ATTENDANT documented in this encounter Results CBC WITH DIFFERENTIAL (01/04/2020 12:12 PM LOT ATTENDANT) WBC 8.07 4.30 - 11.10 [facility] 10*3/L [facility] RBC 3.99 3.93 - 5.25 [facility] 10*6/L [facility] HGB 13.2 11.6 - 15.0 [facility] g/dL [facility] HCT 38.6 35.7 - 45.2 % [facility] MCV 96.7 (H) 80.6 - 95.5 fL [facility] MCH 33.1 (H) 25.9 - 32.8 pg [facility] MCHC 34.2 31.6 - 35.1 [facility] g/dL [facility] RDW-SD 44.9 39.0 - 49.9 fL [facility] RDW-CV 12.7 12.0 - 15.5 % [facility] PLT 247 166 - 358 [facility] 10*3/L [facility] MPV 10.3 9.5 - 12.9 fL [facility] NRBC/100 WBC 0.0 0.0 - 10.0 /100 [facility] WBCs [facility] NRBC x10^3 <0.01 10*3/L [facility] GRAN MAT (NEUT) % 57.3 % [facility] IMM GRAN % 0.40 % [facility] LYMPH % 35.7 % [facility] MONO % 5.5 % [facility] EOS % 0.9 % [facility] BASO % 0.2 % [facility] GRAN MAT x10^3(ANC) 4.63 1.88 - 7.09 [facility] 10*3/uL [facility] IMM GRAN x10^3 0.03 0.00 - 0.06 [facility] 10*3/uL [facility] LYMPH x10^3 2.88 1.32 - 3.29 [facility] 10*3/uL [facility] MONO x10^3 0.44 0.33 - 0.92 [facility] 10*3/uL [facility] EOS x10^3 0.07 0.03 - 0.39 [facility] 10*3/uL [facility] BASO x10^3 <0.03 0.01 - 0.07 [facility] 10*3/uL [facility] Specimen Blood - VENOUS Performing Organization Address City/State/Zipcode Phone Number [facility] CLIA: [id number], [address] [place] [address] URINALYSIS (01/04/2020 12:12 PM LOT ATTENDANT) APPEARANCE Clear Clear [facility] COLOR Yellow Yellow [facility] PH 6.0 4.8 - 8.0 [facility] SP GRAVITY 1.018 1.003 - 1.030 [facility] GLU U QUAL 150 mg/dL (A) Normal [facility] BLOOD Negative Negative [facility] KETONES Negative Negative [facility] PROTEIN Negative Negative [facility] UROBILIN Normal Normal [facility] BILIRUBIN Negative Negative [facility] NITRITE Negative Negative [facility] LEUK TARA Negative Negative [facility] RBC/HPF 1 0 - 3 HPF [facility] WBC/HPF <1 0 - 5 HPF [facility] BACTERIA Negative Negative [facility] MUCOUS Slight (A) Negative LPF [facility] SQ EPITH <1 HPF [facility] Specimen Urine - URINE, CLEAN CATCH Performing Organization Address [facility] Phone Number [facility] CLIA: [id number], [address] [place] [address] LIPASE (01/04/2020 12:12 PM LOT ATTENDANT) LIPASE 62 0 - 220 U/L [facility] Specimen Blood - VENOUS Performing Organization Address [facility] Phone Number [facility] CLIA: [id number], [address] [place] [address] HEPATIC FUNCTION PANEL ([id number]) (ALB,T.PRO,BILI T,BU/BC,ALT,AST,ALK PHOS) (2019 12:12 PM LOT ATTENDANT) TOTAL BILI 0.6 0.1 - 1.1 mg/dL [facility] BILI UNCON 0.5 0.1 - 1.1 mg/dL [facility] BILI CONJ 0.0 0.0 - 0.3 mg/dL [facility] T PROTEIN 7.5 6.3 - 8.2 g/dL [facility] ALBUMIN 4.5 3.5 - 5.0 g/dL [facility] ALK PHOS 66 34 - 122 U/L [facility] ALTv 18 5 - 35 U/L [facility] AST(SGOT) 18 13 - 40 U/L [facility] Specimen Blood - VENOUS Performing Organization Address [facility] Phone Number [facility] CLIA: [id number], [address] [place] [address] BASIC METABOLIC PANEL (NA, K, CL, CO2, GLUCOSE, BUN, CREATININE, CA) (2019 12:12 PM LOT ATTENDANT) NA 139 135 - 145 [facility] mmol/L [facility] K 3.8 3.5 - 5.0 [facility] mmol/L [facility] CL 105 98 - 108 mmol/L [facility] CO2 TOTAL 24 23 - 31 mmol/L [facility] AGAP 10 2 - 16 [facility] BUN 12 7 - 23 mg/dL [facility] GLUCOSE 147 (H) 70 - 110 mg/dL [facility] CREATININE 0.55 0.50 - 1.04 [facility] mg/dL [facility] CALCIUM 9.3 8.6 - 10.6 [facility] mg/dL [facility] eGFR Calculation 128.1 mL/min/1.73m2 [facility] ([facility] Togolese) eGFR Calculation 155.2 mL/min/1.73m2 [facility] () [facility] Specimen Blood - VENOUS Narrative Performed At Association of Glomerular Filtration Rate (GFR) [facility] and Staging of Kidney Disease* + [...] tests). Performing Organization Address City/State/Zipcode Phone Number [facility] CLIA: [id number], [address] [place] [address] [facility] POCT TEST (01/04/2020 12:11 PM LOT ATTENDANT) On board controls acceptable present with C Line POCT PREG LOT # [id number] POCT PREG TEST DATE 2021-06-26 POCT PREG negative Specimen Urine - URINE, CLEAN CATCH documented in this encounter Visit Diagnoses Diagnosis Epigastric pain - Primary Abdominal pain, epigastric documented in this encounter Administered Medications Medication Order MAR Action Action Date Dose Rate Site maalox:diphenhydrAMINE:lidocaine 2 Given 01/04/2020 12:07 PM LOT ATTENDANT 15 mL % viscous 1:1:1 (FIRST-MOUTHWASH BLM) oral suspension 15 mL 15 mL, Oral, ONCE, 1 dose, 01/04/20 at 1315, Routine ondansetron (ZOFRAN (PF)) injection 4 mg Given 01/04/2020 12:12 PM LOT ATTENDANT 4 mg 4 mg, Slow IV Push, ONCE, 1 dose, 01/04/20 at 1315, BHARATHI documented in this encounter Additional Health Concerns Infection Noted Time Resolved Time Contact - ESBL 10/31/2018 4:18 PM LOT ATTENDANT documented as of this encounter Insurance Payer Benefit Plan / Subscriber ID Effective Phone Address Type Group Dates [facility] [id number] 2019-Pres Medicare HEALTHCARE - HEALTHCARE ent Adv HMO MANAGED DUAL COMPLETE MEDICARE HMO HP MEDICAID OF xxxxxxxxx 2019-Pres [phone] [address] Medicaid [place] ent 900 [id number] [place] [address] documented as of this encounter Advance Directives Name Relationship Healthcare Agent Communication Relationship Michelet Brower Life Partner Primary healthcare agent Miranda Morales Sibling Primary healthcare agent
--- OUTSIDE RECORDS SUMMARY | 2020-01-22 17:49 | XMS REPORT | Summary of Care ---
:1985 Author Organization [facility] Address [address] [place] [address] Care Team Providers Name Role Phone Klarissa Delgado Insurance Hmo Karoline Alvarez Primary Care Provider Reason for Visit Reason Comments Back Pain Encounter Details Date Type Department Care Team Description 01/21/2020 Office Visit [facility] Family Karoline Alvarez FNP Chronic midline low back pain without sciatica (Primary Dx); [facility] [address] Missed period [address] [facility] [address] [place], [place] [phone] [address] Allergies Active Allergy Reactions Severity Noted Date Comments Ibuprofen Rash 04/19/2017 documented as of this encounter (statuses as of 01/21/2020) Medications Medication Sig Dispensed Refills Start End Status Date Date sod ndvfz-dmlkug-tchwlf Use 1 Bottle in each 1 Each [...] hours as needed for Pain (scale 7-10). levocetirizine 5 mg TAKE 1 TABLET BY 30 tablet 4 Active tabletIndications: MOUTH ONCE DAILY IN 0 Seasonal allergic THE EVENING rhinitis, unspecified trigger azelastine 137 mcg (0.1 Use 1 [place] in each 30 mL 4 Active %) [...] 0 020 Constipation, days. unspecified constipation type clotrimazole-betamethas Apply to area(s) 2 15 g 0 Active one (LOTRISONE) (two) times daily 0 020 creamIndications: for 21 days. Laura infection of flexural skin meclizine 25 mg Take 1 tablet by 20 tablet 0 Active tabletIndications: mouth 3 (three) 0 Vertigo times daily as needed for Dizziness. documented as of this encounter (statuses as of 01/21/2020) Active Problems Problem Noted Date Morbid obesity with body mass index of 40.0-49.9 01/02/2020 Indigestion 07/25/2019 Overview: Added automatically from request for surgery [id number] Epigastric pain 07/25/2019 Overview: Added automatically from request for surgery [id number] Type 2 diabetes mellitus with complication, without long-term current use of insulin Neck pain, acute 06/13/2019 Acute bilateral low back pain with bilateral sciatica 06/13/2019 Allergic sinusitis 06/13/2019 Secondary oligomenorrhea 05/10/2019 Overview: 05/10/19 s/p EMB - histology revealed a benign endometrial polyp. Cyclic progesterone started. Abdominal pain, left lower quadrant 05/10/2019 Obesity (BMI 30-39.9) 04/27/2017 documented as of this encounter (statuses as of 01/21/2020) Immunizations Name Administration Dates Next Due Influenza [...] Sign Reading Time Taken Comments Blood Pressure 137/83 01/21/2020 1:19 PM INFORMATION TECHNOLOGY DATA ANALYST Pulse 79 01/21/2020 1:19 PM INFORMATION TECHNOLOGY DATA ANALYST Temperature - - Respiratory Rate - - Oxygen Saturation 98% 01/21/2020 1:19 PM INFORMATION TECHNOLOGY DATA ANALYST Inhaled Oxygen Concentration - - Weight 106.6 kg (235 lb) 01/21/2020 1:19 PM INFORMATION TECHNOLOGY DATA ANALYST Height - - Body Mass Index 40.34 01/04/2020 11:48 AM INFORMATION TECHNOLOGY DATA ANALYST documented in this encounter Patient Instructions Patient InstructionsKaroline Alvarez FNP - 01/21/2020 1:20 PM INFORMATION TECHNOLOGY DATA ANALYST Self-Care for Low Back Pain Most people have low back pain now and then. In many cases, it isnt serious and self-care can help. Sometimes low back pain can be a sign of a bigger problem. Call your healthcare provider if your pain returns often or gets worse over time. For the long-term care of your back, get regular exercise,lose any excess weight and learn good posture. Take a short rest Lying down during the day may be helpful for short periods of time if severe pain increases with sitting or standing. Long-term bed rest could be damaging. Reduce pain and swelling Cold reduces swelling. Both cold and heat can reduce pain. Protect your skin by placing a towel between your body and the ice or heat source. For the first few days, apply an ice pack for 15 to20 minutes, several times a day. To make a cold pack, put ice cubes in a plastic bag that seals at the top. After the first few days, try heat for 15 minutes at a time to ease pain. Never sleep on a heating pad. Beta-fas-dlyuudm medicine can help control pain and swelling. Try aspirin or a non-steroidal anti-inflammatory medicine (NSAID) such as ibuprofen. Exercise Exercise can help your back heal. It also helps your back get stronger and more flexible, preventingany reinjury. Ask your healthcare provider about specific exercises for your back. Use good posture to avoid reinjury When moving, bend at the hips and knees. Dont bend at the waist or twist around. When lifting, keep the object close to your body. Lift heavy items using your legs, not your back. Dont try to lift more than you can handle. When sitting, keep your lower back supported. Use a rolled-up towel as needed. Seek medical care right away if: You can't stand or walk. You have a temperature over 100.4F (38.0C) You have frequent, painful, or bloody urination. You have severe abdominal pain. You have a sharp, stabbing pain. Your pain is constant. You have pain, tingling, or numbness in your leg. You feel pain in a new area of your back. You notice that the pain isnt decreasing after more than a week. [employer] last reviewed this educational content on 01/25/201819999427-7045 [employer] [place] [address]. All rights reserved. This information is not intended as a substitute for professional medical care. Always follow your healthcare professional's instructions. Relieving Back Pain Back pain is a common problem. You can strain back muscles by lifting too much weight or just by moving the wrong way. Back strain can be uncomfortable, even painful. And it can take weeks or monthsto improve. To help yourself feel better and prevent future back strains, try these tips. Important: Don't give aspirin to children or teens without first discussing it with your child's healthcare provider. Ice Ice reduces muscle pain and swelling. It helps most during the first 24 to 48 hours after an injury. Wrap an ice pack or a bag of frozen peas in a thin towel. Never put ice directly on your skin. Place the ice where your back hurts the most. Dont ice for more than 20 minutes at a time. You can use ice several times a day. Medicines Csuq-wht-gpclzni pain relieversincludeacetaminophen and anti-inflammatory medicines, which includes aspirin, naproxen,or ibuprofen. They can help ease discomfort. Some also reduce swelling. Tell your healthcare provider about any medicines you are already taking. Take medicines only as directed. Manipulation and massage Having manipulation by an osteopathic doctor or chiropractor may be helpful. Getting a massage also may help. Heat After the first 48 hours, heat can relax sore muscles and improve blood flow. Try a warm bath or shower. Or use a heating pad set on low. To prevent a burn , keep a cloth between you and the heating pad. Dont use a heating pad for more than 15 minutes at a time. Never sleep on a heating pad. [employer] last reviewed this educational content on 04/27/201819994279-4882 [employer]. [address] [place] [address], [place] [address]. All rights reserved. This information is not intended as a substitute for professional medical care. Always follow your healthcare professional's instructions. RMATION TECHNOLOGY DATA ANALYST documented in this encounter Progress Notes Karoline Alvarez FNP - 01/21/2020 1:20 PM CST Cc: Chief Complaint Patient presents with Back Pain Mckenna Haney is a 35 year old female. Hx of DJD lumbar with acute flare up of pain with no urinary symptoms, no sensory or motor dysfunction. She also missed her period for several days, last period was 06 of December and is wanting a test. Back Pain Location: Lumbar spine Quality: Aching Radiates to: Does not radiate Pain severity: Moderate Pain is: Same all the time Onset quality: Gradual Duration: 5 days Timing: Constant Progression: Unchanged Chronicity: New Context comment: Hx of DJD lumbar Relieved by: Nothing Worsened by: Nothing Ineffective treatments: None tried Associated symptoms: no chest pain, no dysuria, no numbness, no tingling and no weakness Risk factors: lack of exercise and obesity Allergies Mckenna is allergic to ibuprofen. Medications Outpatient Medications Prior to Visit Medication Sig Dispense Refill meclizine 25 mg tablet Take 1 tablet by mouth 3 (three) times daily as needed for Dizziness. 20 tablet 0 clotrimazole-betamethasone (LOTRISONE) cream Apply to area(s) 2 (two) times daily for 21 days. 15 g 0 docusate (COLACE) 100 mg capsule Take 1 capsule by mouth daily for 60 days. 30 capsule 1 famotidine 20 mg tablet Take 1 tablet by mouth 2 (two) times daily before breakfast and dinner for 90 days. Indications: gastroesophageal reflux disease 60 tablet 2 medroxyPROGESTERone (PROVERA) 10 mg tablet Take one [...] mcg (0.1 %) nasal spray Use 1 Charlotte in each nostril 2 (two) times daily. Use in each nostril as directed 30 mL 4 levocetirizine 5 mg tablet TAKE 1 TABLET [...] every 12 (twelve) hours. 60 Each 1 dicyclomine (BENTYL) 10 mg capsule Take 1 capsule by mouth every 8 (eight) hours as needed for Abdominal pain. 30 capsule 0 sod orswu-nulaeo-uqmowy bottle (NEILMED SINUS RINSE COMPLETE) pkdv Use [...] N/A 08/05/2019 Surgeon: Jeanette Pedro MD; Location: [facility] Social History Socioeconomic History Marital status: Single [...] denies physical and sexual abuse. [facility] . Family History Problem Relation Age [...] pain, palpitations and leg swelling. Gastrointestinal: Negative. Genitourinary: Negative for dysuria. Musculoskeletal: Positive for back pain. Negative for gait problem. Skin: Negative. Neurological: Negative. Negative for tingling, weakness and numbness. Endocrine: Endocrine negative Vital Signs BP 137/83 | Pulse 79 | Wt 235 lb (106.6 kg) | SpO2 98% | BMI 40.34 kg/m Physical Exam Constitutional: [...] exhibits no distension. There is no tenderness. Musculoskeletal: Lumbar back: She exhibits tenderness. She exhibits normal range of motion and no spasm. Neurological: She is alert and oriented to person, place, and time. Skin: Skin is warm and dry. Capillary refill takes less than 2 seconds. No rash noted. No erythema. No pallor. Psychiatric: She has a normal mood and affect. Nursing note and vitals reviewed. Assessment/Plan 1. Lower back pain: Continue NSAIDs as needed. Clinical references for home care instructions reviewed and copy given. 2. Missed period: POCT test done and was negative. She is encouraged to continue care withOBGYN. Plan of care, desired health behaviors, goals, and medication discussed with patient. Education resources provided and reviewed with AVS. Patient/guardian/family verbalized understanding & agrees to plan of care. This visit did not involve counseling and coordination that comprised more than 50% of the visit time. If applicable, the [facility] database was accessed to review any controlled substance prescription claims data. The [facility] prescription claims data in [employer] was reviewed to assess patient compliance with the medication treatment plan. documented in this encounter Plan of Treatment Date Type Specialty Care Team Description 01/24/2020 Office Visit Otolaryngology Jorge L Willett MD [address] [place] [address] [phone] 03/05/2020 Office Visit Obstetrics & Gynecology Claritza Velez MD [address] [place] [phone] 06/11/2020 Wind Tunnel Engineer Visit Endocrinology Diabetes & LamonteRegla, RD Metabolism [address] [place] [address] [phone] Health Maintenance Due Date Last Done Comments VARICELLA VACCINES (1 of - 1988 2-dose childhood series) EYE EXAM 1997 DTaP,Tdap,and Td Vaccines (1 - 1998 Tdap) FOOT EXAM 2005 LDL-C 06/13/2020 06/13/2019 URINE MICROALBUMIN 06/13/2020 06/13/2019 HgA1C 07/02/2020 01/02/2020, 09/09/2019, 08/01/2019, Additional history exists CREATININE (SERUM) 01/09/2021 01/09/2020, 01/04/2020, 09/30/2019, Additional history exists PAP SMEAR 05/01/2022 05/01/2019 PNEUMOCOCCAL 0-64 YEARS COMBINED Completed 06/13/2019 SERIES INFLUENZA VACCINE Completed 09/09/2019 documented as of this encounter Procedures Procedure Name Priority Date/Time Associated Diagnosis Comments POCT TEST Routine 01/21/2020 Missed period documented in this encounter Results POCT TEST (01/21/2020) POCT PREG Negative On board controls acceptable Yes with C Line POCT PREG LOT # [id number] POCT PREG TEST DATE 05/26/2021 Specimen Urine - URINE, CLEAN CATCH documented in this encounter Visit Diagnoses Diagnosis Chronic midline low back pain without sciatica - Primary Missed period Irregular menstrual cycle documented in this encounter Additional Health Concerns Infection Noted Time Resolved Time Contact - ESBL 10/31/2018 4:18 PM INFORMATION TECHNOLOGY DATA ANALYST documented as of this encounter Insurance Payer Benefit Plan / Subscriber ID Effective Phone Address Type Group Dates [facility] [id number] 2019-Pres Medicare HEALTHCARE - HEALTHCARE ent Adv HMO MANAGED DUAL COMPLETE MEDICARE HMO TMHP MEDICAID OF xxxxxxxxx 2019-Pres [phone] [place] [id number] [place] [address] documented as of this encounter Advance Directives Name Relationship Healthcare Agent Communication Relationship Michelet Brower Life Partner Primary healthcare agent Miranda Morales Sibling Primary healthcare agent "
--- OUTSIDE RECORDS SUMMARY | 2020-01-22 17:49 | XMS REPORT | Summary of Care ---
:1985 Author Organization [facility] Address [address] [place] [address] Care Team Providers Name Role Phone Rafykaris Klarissa L Insurance Hmo Karoline Alvarez Primary Care Provider Reason for Visit Reason Comments Abdominal Pain Auth/Cert Status Reason Specialty Diagnoses / Referred By Referred To Procedures Contact Contact Emergency Medicine Diagnoses ABD PAIN [facility] [address] [place] [address] [place] [address] Encounter Details Date Type Department Care Team Description 01/22/2020 Emergency [facility] Jennifer Rivas MD LUQ pain (Primary Dx); Department [address] [place] [address] Chronic abdominal pain [address] [place] [address] [address] [place] [address] [place], [place] [id number] Allergies Active Allergy Reactions Severity Noted Date Comments Ibuprofen Rash 04/19/2017 documented as of this encounter (statuses as of 01/22/2020) Medications Medication Sig Dispensed Refills Start End Status Date Date sod towco-nvguta-zvedsy Use 1 Bottle in each 1 Each 0 Active bottle (NEILMED SINUS nostril 2 (two) 9 RINSE COMPLETE) times daily. Use in pkdvIndications: hot shower 1 hour Sinusitis, unspecified before bedtime chronicity, unspecified location dicyclomine (BENTYL) 10 Take 1 capsule by 30 capsule 0 06/25/201 Active mg capsuleIndications: mouth every 8 9 [...] trigger azelastine 137 mcg (0.1 Use 1 [place] in each 30 mL 4 Active %) [...] as of this encounter (statuses as of 01/22/2020) Active Problems Problem Noted Date Morbid obesity with body mass index of 40.0-49.9 01/02/2020 Indigestion 07/25/2019 Overview: Added automatically from request for surgery [id number] Epigastric pain 07/25/2019 Overview: Added automatically from request for surgery [id number] Type 2 diabetes mellitus with complication, without long-term current use of insulin Neck pain, acute 06/13/2019 Acute bilateral low back pain with bilateral sciatica 06/13/2019 Allergic sinusitis 06/13/2019 Secondary oligomenorrhea 05/10/2019 Overview: 05/10/19 s/p EMB - histology revealed a benign endometrial polyp. Cyclic progesterone started. Abdominal pain, left lower quadrant 05/10/2019 Obesity (BMI 30-39.9) 04/27/2017 documented as of this encounter (statuses as of 01/22/2020) Immunizations Name Administration Dates Next Due Influenza [...] Sign Reading Time Taken Comments Blood Pressure 160/86 01/22/2020 10:52 AM INSTRUCTOR NURSE Pulse 84 01/22/2020 10:52 AM INSTRUCTOR NURSE Temperature 36.9 C (98.5 F) 01/22/2020 10:52 AM INSTRUCTOR NURSE Respiratory Rate 16 01/22/2020 10:52 AM INSTRUCTOR NURSE Oxygen Saturation 98% 01/22/2020 10:52 AM INSTRUCTOR NURSE Inhaled Oxygen Concentration - - Weight 106.6 kg (235 lb) 01/22/2020 10:52 AM INSTRUCTOR NURSE Height - - Body Mass Index 40.34 01/04/2020 11:48 AM INSTRUCTOR NURSE documented in this encounter Discharge Instructions InstructionsNeJennifer tabares MD - 01/22/2020 RETURN FOR ANY QUESTIONS OR CONCERNS Today you were seen by Jennifer Rivas Jr., MD You were seen today for Chief Complaint Patient presents with Abdominal Pain Your ER diagnosis was ICD-10-CM ICD-9-CM 1. LUQ pain R10.12 789.02 2. Chronic abdominal pain R10.9 789.00 G89.29 338.29 NO LIFE-THREATENING FINDINGS ON TODAY'S EXAM. YOUR PRESCRIPTIONS : Check out [employer] for medication discounts Medication List ASK your doctor about these medications * [...] spray Commonly known as: ASTELIN Use 1 [place] in each nostril 2 (two) times daily. [...] BY MOUTH ONCE DAILY IN THE EVENING meclizine 25 mg tablet Commonly known as: TRAVEL-EASE (MECLIZINE) Take 1 tablet by mouth 3 (three) times daily as needed for Dizziness. medroxyPROGESTERone 10 mg tablet Commonly known as: PROVERA Take one by mouth daily days 1-10 of each month. metroNIDAZOLE 500 mg tablet Commonly known as: FLAGYL Take 1 tablet by mouth 2 (two) times daily. sod naipf-jsorbr-shzkrm bottle Pkdv Commonly known as: NEILMED SINUS [...] care provider to review them with you. ER precautions and follow up : 1. [...] PHYSICIAN OF YOUR CHOICE 2. [facility], . LOCATIONS IN [facility] 3. [facility], [address] [place] [address]; [phone] OR, IF YOU WISH TO FOLLOW-UP WITHIN THE [facility] HEALTHCARE SYSTEM, MAY TRY THESE OPTIONS (CLINIC APPOINTMENTS AVAILABLE ON [id number] BASIS): 1. SCHEDULE AN APPOINTMENT ONLINE AT WWW[facility] 2. OR CALL THE [facility] ACCESS CENTER AT OR 3. OR CALL YOUR [facility] PHYSICIAN'S OFFICE DIRECTLY IF YOU ARE ALREADY AN ESTABLISHED [facility] PATIENT. [facility] RETURN TO WORK / SCHOOL DAPHNELYNNE Keengas WAS SEEN IN THE ER AND DISCHARGED 01/22/2020 TODAY, 10:59 AM & May return to Work / [...] ___ No school JENNIFER RIVAS Jr., MD [facility] [address] [place] [address] [place] [address] ### The patient may have been given Narcotic pain medications during their stay in the ED that may show up on a Drug Screen. The hospital discharge paper work will identify these medications. AttachmentsThe following attachments cannot be sent through Care Everywhere.Abdominal Pain, Adult (Mozambican)documented in this encounter Plan of Treatment Date Type Specialty Care Team Description 01/24/2020 Office Visit Otolaryngology Jorge L Willett MD [address] [place] [address] [phone] 03/05/2020 Office Visit Obstetrics & Gynecology Claritza Velez MD [address] [place] [phone] 06/11/2020 Grounding Engineer Visit Endocrinology Diabetes & LamonteRegla alvarez, RD Metabolism [address] [place] [address] [phone] Health Maintenance Due Date Last Done Comments [...] Date/Time Associated Diagnosis Comments POCT TEST BHARATHI 01/22/2020 10:54 AM LUQ pain Results for this INSTRUCTOR NURSE procedure are in the results section. NOTICE OF PRIVACY Routine 01/22/2020 10:41 AM PRACTICES INSTRUCTOR NURSE CONSENT/REFUSAL FOR Routine 01/22/2020 10:41 AM DIAGNOSIS AND INSTRUCTOR NURSE TREATMENT documented in this encounter Results POCT TEST (01/22/2020 10:54 AM INSTRUCTOR NURSE) POCT PREG negative On board controls acceptable present with C Line Specimen Urine - URINE, CLEAN CATCH documented in this encounter Visit Diagnoses Diagnosis LUQ pain - Primary Abdominal pain, left upper quadrant Chronic abdominal pain Abdominal pain, unspecified site documented in this encounter Additional Health Concerns Infection Noted Time Resolved Time Contact - ESBL 10/31/2018 4:18 PM INSTRUCTOR NURSE documented as of this encounter Insurance Payer Benefit Plan / Subscriber ID Effective Phone Address Type Group Dates [facility] [id number] 2019-Pres Medicare HEALTHCARE - HEALTHCARE ent Adv HMO MANAGED DUAL COMPLETE MEDICARE HMO HP MEDICAID OF xxxxxxxxx 2019-Pres [phone] [place] ent [id number] [place] [address] documented as of this encounter Advance Directives Name Relationship Healthcare Agent Communication Relationship Michelet Brower Life Partner Primary healthcare agent Miranda Morales Sibling Primary healthcare agent
--- OUTSIDE RECORDS SUMMARY | 2020-01-22 17:49 | XMS REPORT | Summary of Care ---
:1985 Author Organization [facility] - Health Address [address] [place] [id number] Care Team Providers Name Role Phone Klarissa Delgado Insurance Hmo Karoline Alvarez Primary Care Provider Reason for Visit Reason Comments Back Pain Encounter Details Date Type Department Care Team Description 01/21/2020 Office [address] [facility] Family Karoline Alvarez FNP Chronic midline low back pain without sciatica (Primary Dx); [facility] [address] Missed period [address] [facility] [address] [place], [place] [phone] [id number] Allergies Active Allergy Reactions Severity Noted Date Comments Ibuprofen Rash 04/19/2017 documented as of this encounter (statuses as of 01/21/2020) Medications Medication Sig Dispensed Refills Start End Status Date Date sod tgzen-nddrqp-fczjvg Use 1 Bottle in each 1 Each [...] trigger azelastine 137 mcg (0.1 Use 1 Mcdowell in each 30 mL 4 Active %) [...] Overview: Added automatically from request for surgery [id number] Epigastric pain 07/25/2019 Overview: Added automatically from request for surgery [id number] Type 2 diabetes mellitus with complication, without [...] Comments Blood Pressure 137/83 01/21/2020 1:19 PM 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 Never sleep on a heating pad. Jzig-dbj-hdfmaxr medicine can help control pain and swelling. [...] isnt decreasing after more than a week. [employer] last reviewed this educational content on 01/25/201819992261-5246 [employer]. [address] [place] [address]. All rights reserved. This information is not [...] use ice several times a day. Medicines Elhm-aqx-ilgsxol pain relieversincludeacetaminophen and anti-inflammatory medicines, which includes [...] time. Never sleep on a heating pad. [employer] last reviewed this educational content on 04/27/201819992937-7601 [employer]. [address] [place] [address], [place] [address]. All rights reserved. This information is not intended as a substitute for professional medical care. Always follow your healthcare professional's instructions. E ONE READING TEACHER documented in this encounter Progress Notes Karoline [...] mcg (0.1 %) nasal spray Use 1 Mcdowell in each nostril 2 (two) times daily. [...] for Abdominal pain. 30 capsule 0 sod jzrrv-xiimbn-sczurt bottle (NEILMED SINUS RINSE COMPLETE) pkdv Use [...] N/A 08/05/2019 Surgeon: Jeanette Pedro MD; [place] [facility] [place] Socioeconomic History Marital [...] file Gets together: Not on file Attends mandaeism service: Not on file Active member of [...] denies physical and sexual abuse. Lives in [facility] with . Family History Problem Relation Age [...] of the visit time. If applicable, the [facility] database was accessed to review any controlled substance prescription claims data. The [employer] prescription claims data in [employer] was reviewed to assess patient compliance with the medication treatment plan. documented in this encounter Plan of Treatment Date Type Specialty Care Team Description 01/24/2020 Office Visit Otolaryngology Jorge L Willett MD [address] [place] [address] [phone] 03/05/2020 Office Visit Obstetrics & Gynecology Claritza Velez MD [address] [place] [phone] 06/11/2020 Tower Observer Visit Endocrinology Diabetes & LamonteRegla, RD Metabolism [address] [place] [address] [phone] Health Maintenance Due Date Last Done Comments [...] with C Line POCT PREG LOT # [id number] POCT PREG TEST DATE 05/26/2021 Specimen Urine - URINE, CLEAN CATCH documented in this encounter Visit Diagnoses Diagnosis Chronic midline low back pain without sciatica - Primary Missed period Irregular menstrual cycle documented in this encounter Additional Health Concerns Infection Noted Time Resolved Time Contact - ESBL 10/31/2018 4:18 PM 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
[2020-01-22 18:26] LABS: Absolute Lymphocytes (CBC) 2.9 K/uL (0.7-4.9); Basophils % 0.4 % (0-1.3); Hematocrit 41.8 % (36.0-45.0); Lymphocytes % 29.1 % (15.3-44.8); MPV 8.7 fL (7.6-11.3); RBC Red Blood Cell Count 4.32 M/uL (3.86-4.86)
[2020-01-22 18:47] LABS: ALT/SGPT 23 U/L (12-78); AST/SGOT 9 U/L (15-37); Albumin 3.6 g/dL (3.4-5.0); Alkaline Phosphatase 75 U/L (45-117); BUN Blood Urea Nitrogen 11 mg/dL (7-18); Bicarbonate 27 mmol/L (21-32); Bilirubin Total 0.3 mg/dL (0.2-1.0); Glucose Level 167 mg/dL (74-106); Lipase 86 U/L (73-393); Potassium 3.6 mmol/L (3.5-5.1); Protein, Total 8.1 g/dL (6.4-8.2); Sodium Level 139 mmol/L (136-145); Troponin (Emerg Dept Use Only) < 0.02 ng/mL (0.0-0.045)
--- NOTE | 2020-01-22 19:15 | RAD REPORT ---
EXAM DESCRIPTION: Patricia Single View01/22/2020 7:10 pm CLINICAL HISTORY: Chest pain COMPARISON: 2018 FINDINGS: The lungs appear clear of acute infiltrate. The heart is normal size IMPRESSION: No acute abnormalities displayed
--- NOTE | 2020-01-22 20:06 | ER ---
Nurse's Notes [facility] Name: Mckenna Haney Age: 35 yrs Sex: Female : 1985 Arrival Date: 01/22/2020 Time: 17:30 Bed 14 Private MD: Diagnosis: Chest pain, unspecified;Unspecified abdominal pain Presentation: 01/22 17:34 Presenting complaint: Patient states: i have been having stomach pain, i feel only like tw2 bloated and i have chest pain in the stomach i dont know if it is the same or not but it goes to my back too and my breast are tender today i noticed it. Transition of care: patient was not received from another setting of care. Onset of symptoms was January 22, 2020. Risk Assessment: Do you want to hurt yourself or someone else? Patient reports no desire to harm self or others. Initial Sepsis Screen: Does the patient meet any 2 criteria? HR > 90 bpm. No. Patient's initial sepsis screen is negative. Does the patient have a suspected source of infection? No. Patient's initial sepsis screen is negative. Care prior to arrival: None. 17:34 Method Of Arrival: Ambulatory tw2 17:34 Acuity: LILO 3 tw2 17:36 Presenting complaint: Patient states: i also when i touch my face i have some pressure tw2 and it hurts i have been coughing and congested too. Triage Assessment: 17:36 General: Appears in no apparent distress. obese, well groomed, Behavior is calm, tw2 cooperative, appropriate for age. Pain: Complains of pain in chest and abdomen. Cardiovascular: Reports chest pain. GI: Reports upper abdominal pain, bloating. 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 tw2 Historical: - Allergies: 17:37 Ibuprofen (Hives); tw2 - Home Meds: 17:37 meclizine 25 mg Oral tab 1 tab 3 times per day [Active]; cyclobenzaprine 7.5 mg Oral tw2 tab 1 tab 3 times per day [Active]; glyburide 5 mg Oral tab 1 tab once daily [Active]; amoxicillin 500 mg Oral tab 1 tab every 12 hours [Active]; hydroxyzine HCl 50 mg Oral tab 1 tab 4 times per day [Active]; medroxyprogesterone 10 mg Oral tab 1 tab once daily [Active]; metronidazole 500 mg Oral tab 1 tab every 6 hours [Active]; buspirone 7.5 mg Oral tab 1 tab 2 times per day [Active]; - PMHx: 17:37 Hypertension; High Cholesterol; Ovarian cyst; Diabetes - NIDDM; tw2 - PSHx: 17:37 Cholecystectomy; tw2 - Immunization history:: Adult Immunizations. - Coronavirus screen:: The patient has NOT traveled to [place] in the past 14 days. - Social history:: Smoking status: . - Ebola Screening: : Patient denies travel to an Ebola-affected area in the 21 days before illness onset. Screenin:11 Abuse screen: Denies threats or abuse. Denies injuries from another. Nutritional ls4 screening: No deficits noted. Tuberculosis screening: No symptoms or risk factors identified. Fall Risk None identified. Assessment: 17:38 General: Appears in no apparent distress. Behavior is calm, cooperative. Pain: ls4 Complains of pain in anterior aspect of right upper chest and abdomen Pain radiates to chest Pain currently is 9 out of 10 on a pain scale. Quality of pain is described as aching, crampy, sharp, Pain began gradually, Is. Neuro: No deficits noted. Cardiovascular: No deficits noted. Respiratory: No deficits noted. GI: Abdomen is non-distended, obese, Bowel sounds present X 4 quads. Abd is soft and non tender X 4 quads. : Urine is clear. Derm: No deficits noted. 18:30 Reassessment: Patient and/or family updated on plan of care and expected duration. Pain ls4 level reassessed. Patient is alert, oriented x 3, equal unlabored respirations, skin warm/dry/pink. 19:30 Reassessment: Patient appears in no apparent distress at this time. Patient and/or ls4 family updated on plan of care and expected duration. Pain level reassessed. Patient is alert, oriented x 3, equal unlabored respirations, skin warm/dry/pink. 20:23 Reassessment: Patient appears in no apparent distress at this time. Patient and/or ls4 family updated on plan of care and expected duration. Pain level reassessed. Patient is alert, oriented x 3, equal unlabored respirations, skin warm/dry/pink. Vital Signs: 17:38 BP 146 / 90; Pulse 98; Resp 18; Temp 97.7(TE); Pulse Ox 100% on R/A; Weight 104.33 kg; tw2 Height 5 ft. 4 in. (162.56 cm); Pain 9/10; 17:38 BP 129 / 76; Pulse 81; Resp 17; Temp 97.9(O); Pulse Ox 99% on R/A; Pain 5/10; ls4 18:41 BP 128 / 77; Pulse 85; Resp 18; Temp 97.6(O); Pulse Ox 100% on R/A; mh5 19:45 BP 127 / 76; Pulse 82; Resp 16; Temp 97.9(O); Pulse Ox 99% on R/A; Pain 3/10; ls4 20:45 BP 129 / 72; Pulse 84; Resp 16; Pulse Ox 99% on R/A; Pain 3/10; ls4 17:38 Body Mass Index 39.48 (104.33 kg, 162.56 cm) tw2 ED Course: 17:30 Patient arrived in ED. as 17:36 Triage completed. tw2 17:36 Arm band placed on. tw2 17:39 J[facility] Me[facility]C [facility] la1 17:39 David Gabriel MD is Attending Physician. la1 17:42 Jayda Feliz, MARIN is Primary Nurse. ls4 18:11 Patient has correct armband on for positive identification. Bed in low position. Call ls4 light in reach. Side rails up X 1. playground monitor on. Pulse ox on. NIBP on. 18:20 Patient has correct armband on for positive identification. Placed in gown. Warm 5 blanket given. playground monitor on. Pulse ox on. NIBP on. 18:20 Initial lab(s) drawn, by me, held in ED. Inserted saline lock: 22 gauge in right 5 antecubital area, using aseptic technique. Blood collected. 18:21 Lipase Sent. 5 18:21 Troponin (emerg Dept Use Only) Sent. 5 18:21 CMP Sent. 5 18:21 CBC with Diff Sent. 5 18:40 Urine collected: clean catch specimen, clear. 5 18:41 Ptt, Activated Sent. 5 20:09 No provider procedures requiring assistance completed. IV discontinued, bleeding ls4 controlled, No redness/swelling at site. Pressure dressing applied. Patient maintains SpO2 saturation greater than 95% on room air. Administered Medications: No medications were administered Outcome: 20:06 Discharge ordered by MD. la1 20:10 Discharged to home ambulatory, with family. ls4 20:10 Condition: good 20:10 Discharge instructions given to patient, family, Instructed on discharge instructions, follow up and referral plans. medication usage, Demonstrated understanding of instructions, follow-up care, medications, Prescriptions given X 2. 20:24 Patient left the ED. ls4 Signatures: Vandana Brower Lee, TORPEDO MAN-C TORPEDO MAN-Cla1 Oriana Chong, RN RN tw2 Miranda Brower [facility] Jayda Feliz RN RN ls4 Corrections: (The following items were deleted from the chart) 20:22 18:11 Pain: Pain began ls4 ls4
--- NOTE | 2020-01-22 20:06 | EDPHYS ---
Physician Documentation [facility] Name: Mckenna Haney Age: 35 yrs Sex: Female : 1985 Arrival Date: 01/22/2020 Time: 17:30 Bed 14 Private MD: ED Physician David Gabriel HPI: 01/22 18:17 This 35 yrs old Female presents to ER via Ambulatory with complaints of Chest la1 Pain, Abdominal Pain. 18:17 The patient or guardian reports chest pain that is located primarily in the substernal la1 area, epigastric area. The pain radiates to anterior aspect of right upper chest and abdomen. Associated signs and symptoms: Pertinent negatives: diaphoresis, dizziness, nausea, near syncope, syncope. The chest pain is described as aching. Duration: The patient or guardian reports multiple episodes. Modifying factors: The symptoms are alleviated by nothing. the symptoms are aggravated by nothing. Severity of pain: At its worst the pain was moderate. The patient has not experienced similar symptoms in the past. pt reports she has bad pain in her chest and upper abd for the last two days but it went away for a while and came back this morning at 0800. . 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 tw2 Historical: - Allergies: 17:37 Ibuprofen (Hives); tw2 - Home Meds: 17:37 meclizine 25 mg Oral tab 1 tab 3 times per day [Active]; cyclobenzaprine 7.5 mg Oral tw2 tab 1 tab 3 times per day [Active]; glyburide 5 mg Oral tab 1 tab once daily [Active]; amoxicillin 500 mg Oral tab 1 tab every 12 hours [Active]; hydroxyzine HCl 50 mg Oral tab 1 tab 4 times per day [Active]; medroxyprogesterone 10 mg Oral tab 1 tab once daily [Active]; metronidazole 500 mg Oral tab 1 tab every 6 hours [Active]; buspirone 7.5 mg Oral tab 1 tab 2 times per day [Active]; - PMHx: 17:37 Hypertension; High Cholesterol; Ovarian cyst; Diabetes - NIDDM; tw2 - PSHx: 17:37 Cholecystectomy; tw2 - Immunization history:: Adult Immunizations. - Coronavirus screen:: The patient has NOT traveled to [place] in the past 14 days. - Social history:: Smoking status: . - Ebola Screening: : Patient denies travel to an Ebola-affected area in the 21 days before illness onset. ROS: 18:19 Constitutional: Negative for fever, chills, and weight loss, Eyes: Negative for injury, la1 pain, redness, and discharge, ENT: Negative for injury, pain, and discharge, Neck: Negative for injury, pain, and swelling. 18:19 Back: Negative for injury and pain, MS/Extremity: Negative for injury and deformity, Skin: Negative for injury, rash, and discoloration, Neuro: Negative for headache, weakness, numbness, tingling, and seizure. 18:19 Cardiovascular: Positive for chest pain. 18:19 Respiratory: Negative for cough, dyspnea on exertion. 18:19 Abdomen/GI: Positive for abdominal pain. Exam: 18:20 Constitutional: This is a well developed, well nourished patient who is awake, alert, la1 and in no acute distress. Head/Face: Normocephalic, atraumatic. Eyes: Pupils equal round and reactive to light, extra-ocular motions intact. ENT: Mucous membranes moist. Neck: Trachea midline, Chest/axilla: Normal chest wall appearance and motion. Nontender with no deformity. No lesions are appreciated. Cardiovascular: Regular rate and rhythm with a normal S1 and S2. Respiratory: Lungs have equal breath sounds bilaterally, clear to auscultation Abdomen/GI: mild tenderness to RUQ Back: No spinal tenderness. No costovertebral tenderness. Full range of motion. Vital Signs: 17:38 BP 146 / 90; Pulse 98; Resp 18; Temp 97.7(TE); Pulse Ox 100% on R/A; Weight 104.33 kg; tw2 Height 5 ft. 4 in. (162.56 cm); Pain 9/10; 17:38 BP 129 / 76; Pulse 81; Resp 17; Temp 97.9(O); Pulse Ox 99% on R/A; Pain 5/10; ls4 18:41 BP 128 / 77; Pulse 85; Resp 18; Temp 97.6(O); Pulse Ox 100% on R/A; mh5 19:45 BP 127 / 76; Pulse 82; Resp 16; Temp 97.9(O); Pulse Ox 99% on R/A; Pain 3/10; ls4 20:45 BP 129 / 72; Pulse 84; Resp 16; Pulse Ox 99% on R/A; Pain 3/10; ls4 17:38 Body Mass Index 39.48 (104.33 kg, 162.56 cm) tw2 MDM: 17:39 Patient medically screened. la1 20:04 Data reviewed: vital signs, nurses notes, lab test result(s), EKG, radiologic studies, la1 I have discussed the patient's presentation/case with the attending Emergency Department Physician; and as a result, I will discharge patient. Data interpreted: Pulse oximetry: on room air is 100 %. Interpretation: acceptable. Test interpretation: by ED physician or midlevel provider: ECG, plain radiologic studies. Counseling: I had a detailed discussion with the patient and/or guardian regarding: the historical points, exam findings, and any diagnostic results supporting the discharge/admit diagnosis, the presence of at least one elevated blood pressure reading (>120/80) during this emergency department visit, the need for outpatient follow up, a family practitioner, to return to the emergency department if symptoms worsen or persist or if there are any questions or concerns that arise at home. Special discussion: Based on the patient's history, exam, and Dx evaluation, there is no indication for emergent intervention or inpatient Tx. It is understood by the patient/guardian that if the Sx's persist or worsen they need to return immediately for re-evaluation. ED course: pt has had pain constant since 0800 this morning, troponin is negative, pt with mildly tender epigastric region, ECG is WNL, I favor GERD over ACS, strict return and follow up precautions given. 01/22 17:56 Order name: CBC with Diff 01/22 17:56 Order name: CMP 01/22 17:56 Order name: Troponin (emerg Dept Use Only) 01/22 17:56 Order name: Lipase 01/22 18:22 Order name: Ptt, Activated ls4 01/22 18:28 Order name: CBC with Automated Diff; Complete Time: 19:36 EDMS 01/22 17:56 Order name: Chest Single View XRAY 01/22 18:38 Order name: PTT, Activated Partial Thromb; Complete Time: 19:36 EDMS 01/22 18:42 Order name: Urine Dipstick--Ancillary (enter results) em1 01/22 18:42 Order name: Urine --Ancillary (enter results) [facility] 01/22 18:49 Order name: Comprehensive Metabolic Panel; Complete Time: 19:36 [facility] 01/22 18:49 Order name: Troponin (Emerg Dept Use Only); Complete Time: 19:36 [facility] 01/22 18:49 Order name: Lipase; Complete Time: 19:36 [facility] 01/22 19:21 Order name: RAD; Complete Time: 19:36 [facility] 01/22 17:44 Order name: Urine Dipstick-Ancillary (obtain specimen); Complete Time: 18:40 [facility] 01/22 17:44 Order name: Urine Test (obtain specimen); Complete Time: 18:40 [facility] 01/22 17:56 Order name: EKG - Nurse/Tech; Complete Time: 18:00 la1 Administered Medications: No medications were administered Disposition: 01/23 08:32 Co-signature as Attending Physician, David Gabriel MD I agree with the assessment and kdr plan of care. Disposition: 01/22/20 20:06 Discharged to Home. Impression: Chest pain, unspecified, Unspecified abdominal pain. - Condition is Stable. - Discharge Instructions: Abdominal Pain, Adult, Nonspecific Chest Pain, Aspirin and Your Heart. - Prescriptions for Bentyl 20 mg Oral Tablet - take 1 tablet by ORAL route every 6 hours As needed; 20 tablet. Pepcid 20 mg Oral Tablet - take 1 tablet by ORAL route once daily for 10 days; 10 tablet. - Medication Reconciliation Form, Thank You Letter form. - Follow up: Private Physician; When: 2 - 3 days; Reason: Recheck today's complaints, Re-evaluation by your physician. Follow up: Emergency Department; When: As needed; Reason: Worsening of condition. - Problem is new. - Symptoms have improved. Signatures: Dispatcher [employer] [facility] David Gabriel MD MD kdr Attema, Lee, TELEVISION OPERATOR-C TELEVISION OPERATOR-Cla1 Oriana Chong, MARIN RN tw2 Jayda Feliz, MARIN RN ls4 Corrections: (The following items were deleted from the chart) 01/22 20:24 20:06 01/22/2020 20:06 Discharged to Home. Impression: Chest pain, unspecified; ls4 Unspecified abdominal pain. Condition is Stable. Forms are Medication Reconciliation Form, Thank You Letter, Antibiotic Education, Prescription Opioid Use. Follow up: Private Physician; When: 2 - 3 days; Reason: Recheck today's complaints, Re-evaluation by your physician. Follow up: Emergency Department; When: As needed; Reason: Worsening of condition. Problem is new. Symptoms have improved. la1
[2020-01-22 20:24] LABS: Urine Blood NEGATIVE (NEG); Urine Glucose 1+ (NEG); Urine Protein NEGATIVE (NEG); Urine Specific Gravity 1.015 (1.005-1.030); Urine pH 6.5 (5.0-7.0)
[2020-01-22 20:54] VITALS: BP 128/77; TEMP 97.6; O2SAT 100
--- NOTE | 2020-01-23 10:10 | EKG ---
Test Date: 2020-01-22 Test Time: 17:44:59 Subscription Agent: MEASUREMENT RESULTS: Intervals: Rate: 87 DC: 162 QRSD: 78 QT: 372 QTc: 447 [place]: P: 34 DC: 162 QRS: 39 T: 20 INTERPRETIVE STATEMENTS: Normal sinus rhythm Normal ECG Compared to ECG 09/19/2019 12:31:10 Myocardial infarct finding no longer present Electronically Signed On 01-23-20 10:08:50 DESIGN DRAFTSMAN by Danny Rand
== END 2020-01-22 20:24 | disposition home or self-care (01) ==
LOC: ER 17:27
DX: R10.9 Unspecified abdominal pain (principal); I10 Essential (primary) hypertension; E78.00 Pure hypercholesterolemia, unspecified; E11.9 Type 2 diabetes mellitus without complications; Z88.6 Allergy status to analgesic agent
CPT/HCPCS: 36415; 71045; 80053; 81003; 81025; 83690; 84484; 85025; 85730; 93005; 99285

== ENCOUNTER 2020-02-05 16:06 | Emergency (ER) | payer SELFPAY ==
--- OUTSIDE RECORDS SUMMARY | 2020-02-05 16:09 | XMS REPORT ---
[...] Start Date End Date Status Dosage Vernsharitahayde [facility][NOTE 3] 63450080636 100 MG Orally Active 1 tablet Once a day Results No Known Results Summary Purpose [employer] Submission
--- OUTSIDE RECORDS SUMMARY | 2020-02-05 16:09 | XMS REPORT ---
:1985 [facility] Address [address] [place] [address] [address] Care Team Providers Name Role Phone Unavailable [...]
--- OUTSIDE RECORDS SUMMARY | 2020-02-05 16:09 | XMS REPORT ---
[...] Dosage System Date Date BusPIRone HCl [facility] 82433190052 7.5 MG Orally April 18, Active 1 tablet as Twice a day 2019 needed for anxiety Vitamin D ND 44766427219 2000 UNIT Active 1 tablet Orally Once a day Atorvastatin [facility] 42253786871 10 MG Orally Active 1 tablet Calcium Once a day Orphenadrine [facility] [address]-45 100 MG Orally Active as directed Citrate ER Meclizine HCl [facility] 67158714249 25 MG Orally April Active 1 tablet as Twice daily 07, needed for 2019 dizziness Lisinopril [facility] 57734181426 5 MG Orally Active 1 tablet Once a day Pioglitazone HCl [facility] 12857722812 15 MG Orally May Active 1 tablet Once a day for , diabetes 2019 Amoxicillin [facility] 92121726500 500 MG Orally Active 1 capsule Twice a day Loratadine [facility] 04288843521 10 MG Orally Active 1 tablet Once a day GlipiZIDE XL [facility] 29660132605 5 MG Orally Active 1 tablet with Once a day food Triamcinolone [facility] 21946430362 0.1 % April Active 1 application Acetonide Externally 28, to affected Twice a day 2019 areas Alogliptin [facility] 76692834178 25 MG Orally April Active 1 tablet Benzoate Once a day for , diabetes 2019 Results No Known Results Summary Purpose eClinicalWorks Submission
--- OUTSIDE RECORDS SUMMARY | 2020-02-05 16:09 | XMS REPORT ---
[...] Status Dosage System Date Date Atorvastatin [facility] 01493558285 10 MG Orally Active 1 tablet Calcium Once a day Meclizine HCl [facility] 45054537013 25 MG Orally April Active 1 tablet as bid prn 07, needed 2019 Alogliptin [facility] 06103657808 25 MG Orally April Active 1 tablet Benzoate Once a day for 28, diabetes 2019 Amoxicillin [facility] 66912989532 500 MG Orally Active 1 capsule Twice a day Vitamin D [facility] 45993226129 2000 UNIT Active 1 tablet Orally Once a day Orphenadrine [facility] [address]-08 100 MG Orally Active as directed Citrate ER Lisinopril [facility] 76015104028 5 MG Orally Active 1 tablet Once a day GlipiZIDE XL [facility] 32065890277 5 MG Orally Active 1 tablet with Once a day food Januvia [facility] 43863681885 100 MG Orally Inactive 1 tablet Once a day Loratadine [facility] 87805702480 10 MG Orally Active 1 tablet Once a day BusPIRone HCl [facility] 25658057100 7.5 MG Orally April 18, Active 1 tablet as Twice a day 2018 needed for anxiety Triamcinolone [facility] 61050099659 0.1 % April Active 1 application Acetonide , to affected Twice a day 2019 areas Results No Known Results Summary Purpose eClinicalWorks Submission
--- OUTSIDE RECORDS SUMMARY | 2020-02-05 16:09 | XMS REPORT ---
[...] Status Dosage System Date Date Atorvastatin ND 97263869858 10 MG Orally Active 1 tablet Calcium Once a day Lisinopril ND 39033201909 5 MG Orally Active 1 tablet Once a day Dicyclomine HCl ND 56245744158 20 MG Orally May Active 1 tablet as Four times a 09, 19, needed for day 2018 2018 stomach pain Loratadine ND 92694323531 10 MG Orally Active 1 tablet Once a day Triamcinolone [facility] 98317438402 0.1 % April Active 1 application Acetonide Externally 28, to affected Twice a day 2019 areas GlipiZIDE XL [facility] 28479960913 5 MG Orally Active 1 tablet with Once a day food Pioglitazone HCl [facility] 74704822162 15 MG Orally May Active 1 tablet Once a day for , diabetes 2019 Amoxicillin [facility] 93352614556 500 MG Orally Active 1 capsule Twice a day Orphenadrine [facility] [address]-60 100 MG Orally Active as directed Citrate ER Alogliptin [facility] 51214817710 25 MG Orally April Active 1 tablet Benzoate Once a day for , diabetes 2019 Vitamin D [facility] 67269720340 2000 UNIT Active 1 tablet Orally Once a day BusPIRone HCl [facility] 51452153708 7.5 MG Orally April 18, Active 1 tablet as Twice a day 2019 needed for anxiety Meclizine HCl [facility] 61743660568 25 MG Orally April Active 1 tablet as Twice daily , needed for 2019 dizziness Results No Known Results Summary Purpose eClinicalWorks Submission
--- OUTSIDE RECORDS SUMMARY | 2020-02-05 16:10 | XMS REPORT ---
[...] Status Dosage System Date Date Loratadine [facility] 38236205694 10 MG Orally Active 1 tablet Once a day Vitamin D [facility] 52753933715 2000 UNIT Active 1 tablet Orally Once a day Meclizine HCl ND 86962213416 25 MG Orally April Active 1 tablet as Twice daily 07, needed for 2019 dizziness Pioglitazone HCl ND 83159865540 15 MG Orally May Active 1 tablet Once a day for , diabetes 2019 Dicyclomine HCl [facility] 91341761415 20 MG Orally May Active 1 tablet as Four times a 09, 19, needed for day 2018 2019 stomach pain Atorvastatin ND 96911772131 10 MG Orally Active 1 tablet Calcium Once a day Lisinopril [facility] 78671265116 5 MG Orally Active 1 tablet Once a day Amoxicillin [facility] 04904621394 500 MG Orally Active 1 capsule Twice a day Alogliptin [facility] 66872387838 25 MG Orally April Active 1 tablet Benzoate Once a day for 28, diabetes 2018 GlipiZIDE XL [facility] 39313267328 5 MG Orally Active 1 tablet with Once a day food GlipiZIDE [facility] 41206862931 5 MG Orally May Active 1 tablet Once a day 2018 Triamcinolone [facility] 82559753546 0.1 % April Active 1 application Acetonide Externally , to affected Twice a day 2019 areas BusPIRone HCl [facility] 20487126478 7.5 MG Orally April 18, Active 1 tablet as Twice a day 2018 needed for anxiety Orphenadrine [facility] [address]-37 100 MG Orally Active as directed Citrate ER Results No Known Results Summary Purpose eClinicalWorks Submission
--- OUTSIDE RECORDS SUMMARY | 2020-02-05 16:10 | XMS REPORT ---
[...] Status Dosage System Date Date Dicyclomine HCl [facility] 59075298786 20 MG Orally May Active 1 tablet as Four times a 09, 19, needed for day 2018 2018 stomach pain Triamcinolone [facility] 70675905661 0.1 % April Active 1 application Acetonide Externally 28, to affected Twice a day 2019 areas Loratadine [facility] 74967891913 10 MG Orally Active 1 tablet Once a day Lisinopril [facility] 09891293864 5 MG Orally Active 1 tablet Once a day Farxiga ND 76129078184 5mg Orally May Active 1 tablet Once daily , 2018 Lactulose [facility] 68580244678 10 GM/15ML May Active 15-30 ml Orally Once to , twice a day as 2018 2018 needed for constipation BusPIRone HCl [facility] 39741917192 7.5 MG Orally April 18, Active 1 tablet as Twice a day 2018 needed for anxiety Vitamin D [facility] 87346582502 2000 UNIT Active 1 tablet Orally Once a day Atorvastatin [facility] 16965593812 10 MG Orally Active 1 tablet Calcium Once a day Orphenadrine [facility] [address]-25 100 MG Orally Active as directed Citrate ER Alogliptin [facility] 23702432466 25 MG Orally April Active 1 tablet Benzoate Once a day for , diabetes 2019 Pioglitazone HCl [facility] 83041224731 15 MG Orally May Active 1 tablet Once a day for 05, diabetes 2019 GlipiZIDE XL [facility] 54298201911 5 MG Orally Active 1 tablet with Once a day food Amoxicillin [facility] 78563855884 500 MG Orally Active 1 capsule Twice a day Meclizine HCl [facility] 02543442206 25 MG Orally April Active 1 tablet as Twice daily , needed for 2019 dizziness Results No Known Results Summary Purpose eClinicalWorks Submission
--- OUTSIDE RECORDS SUMMARY | 2020-02-05 16:11 | XMS REPORT ---
:1985 [facility] Team Providers Name Role Phone [...] End Status Dosage System Date Date Atorvastatin [facility] 92553831641 10 MG Orally Active 1 tablet Calcium Once a day Orphenadrine [facility] [address]-34 100 MG Orally Active as directed Citrate ER Amoxicillin [facility] 43980683958 500 MG Orally Active 1 capsule Twice a day Meclizine HCl [facility] 41575701623 25 MG Orally April Active 1 tablet as Twice daily , needed for 2019 dizziness BusPIRone HCl [facility] 40135732397 7.5 MG Orally April 18, Active 1 tablet as Twice a day 2018 needed for anxiety Loratadine [facility] 82921289379 10 MG Orally Active 1 tablet Once a day GlipiZIDE XL [facility] 13176337440 5 MG Orally Active 1 tablet with Once a day food Farxiga [facility] 83401715984 5mg Orally May Active 1 tablet Once daily 2018 2019 Pioglitazone HCl [facility] 05330574754 15 MG Orally May Active 1 tablet Once a day for 05, diabetes 2019 Alogliptin [facility] 58446222413 25 MG Orally April Active 1 tablet Benzoate Once a day for 28, diabetes 2019 Triamcinolone [facility] 49154793594 0.1 % April Active 1 application Acetonide Externally 28, to affected Twice a day 2019 areas Lisinopril [facility] 52229882383 5 MG Orally Active 1 tablet Once a day Vitamin D [facility] 84830637698 2000 UNIT Active 1 tablet Orally Once a day BELVIQ [facility] 67690859471 10 MG orally Jun 28Sep Active 1 tablet Twice a day 2018 Results No Known Results Summary Purpose eClinicalWorks Submission
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
--- OUTSIDE RECORDS SUMMARY | 2020-02-05 16:33 | XMS REPORT | Summary of Care ---
:1985 Author Organization [facility] - Health Address [address] [place] [address] Care Team Providers Name Role Phone Klarissa Delgado Flores Insurance Hmo Karoline Alvarez Primary Care Provider Reason for Referral (Routine) Status Reason Specialty Diagnoses / Referred By Referred To Procedures Contact Contact New Request Audiology Diagnoses Right-sided vestibular weakness Pulsatile tinnitus of both ears Jorge L Willett, Procedures CONSULT/REFERRAL AUDIOLOGY [address] [place] [address] Reason for Visit Reason Comments Follow-up allergies (BHARATHI) Status Reason Specialty Diagnoses / Referred By Referred To Procedures Contact Contact Closed JIM-OTOLARYNGOLOGY / Diagnoses Vertigo Ibikunle, Otolaryngology Procedures Discharge Follow-Up: Specialty Service JIM-OTOLARYNGOLOGY; 3-5 Days GABI Chamberlain [address] [facility] [address] [place] [address] Encounter Details Date Type Department Care Team Description 01/29/2020 Office Visit [facility] Ear, Nose Jorge L Willett, Right-sided vestibular weakness (Primary Dx); and Throat-[place] Pulsatile tinnitus of both ears; [address] [place] [address] Facial pressure [facility] [address] [place], [place] [phone] [address] [phone] Allergies Active Allergy Reactions Severity Noted Date Comments Ibuprofen Rash 04/19/2017 documented as of this encounter (statuses as of 01/29/2020) Medications Medication Sig Dispensed Refills Start End Status Date Date sod kamcw-izchon-ufyjsa Use 1 Bottle in each 1 Each [...] trigger azelastine 137 mcg (0.1 Use 1 [place] in each 30 mL 4 Active %) [...] Overview: Added automatically from request for surgery [id number] Epigastric pain 07/25/2019 Overview: Added automatically from request for surgery [id number] Type 2 diabetes mellitus with complication, without [...] Comments Blood Pressure 152/94 01/29/2020 10:05 AM HEAD PUMPER Pulse 88 01/29/2020 10:05 AM HEAD PUMPER Temperature 36.5 C (97.7 F) 01/29/2020 9:48 AM HEAD PUMPER Respiratory Rate - - Oxygen Saturation - - Inhaled Oxygen Concentration - - Weight 106.8 kg (235 lb 8 oz) 01/29/2020 9:48 AM HEAD PUMPER Height 162.6 cm (5' 4") 01/29/2020 9:48 AM HEAD PUMPER Body Mass Index 40.42 01/29/2020 9:48 AM HEAD PUMPER documented in this encounter Progress Notes Jorge [...] N/A 08/05/2019 Surgeon: Jeanette Pedro MD; Location: [facility] FAMHx: Family History Problem Relation Age of [...] file Gets together: Not on file Attends yazdanism service: Not on file Active member of [...] None Medical Data Reviewed: [facility] Radiology: IMPRESSION CT HEAD WO CONTRAST 01/09/2020 [...] MD who performed the services described here-in. Vidya Little, January 29, 2020, 10:00 AM Physician's [...] Visit Obstetrics & Gynecology Claritza Velez MD [address] [place] [address] [phone] 02/14/2020 Ancillary Visit Audiology 2, Samantha Audio Sound Suite 02/14/2020 Ancillary Visit Audiology Vestibular, Samantha Audio 02/19/2020 Office Visit Otolaryngology Cathy Aguilar MD [address] [place], [place] [address] 02/28/2020 Office Visit Otolaryngology Jorge L Willett MD [address] [facility] [place] [address] [phone] 03/05/2020 Office Visit Obstetrics & Gynecology Claritza Velez MD [address] [place] [address] [phone] 06/11/2020 Whey Department Operator Visit Endocrinology Diabetes & LamonteRegla alvarez, RD Metabolism [address] [place] [address] [phone] Health Maintenance Due Date Last Done Comments [...] Time Contact - ESBL 10/31/2018 4:18 PM HEAD PUMPER documented as of this encounter Insurance Payer Benefit Plan / Subscriber ID Effective Phone Address Type Group Dates [facility] [id number] 2019-Pres Medicare HEALTHCARE - HEALTHCARE ent Adv HMO MANAGED DUAL COMPLETE MEDICARE HMO [facility] MEDICAID OF xxxxxxxxx 2019-Pres [phone] [place] ent [phone] [id number] [place] [address] documented as of this encounter Advance Directives Name Relationship Healthcare Agent Communication Relationship Michelet Brower Life Partner Primary healthcare agent Miranda Morales Sibling Primary healthcare agent
--- OUTSIDE RECORDS SUMMARY | 2020-02-05 16:33 | XMS REPORT | Summary of Care ---
:1985 Author Organization [facility] - Health Address [address] [place] [address] Care Team Providers Name Role Phone RafykarisMohantaylor Tanner Insurance Hmo Karoline Alvarez Primary Care Provider Reason for Visit Reason Comments DYSURIA Auth/Cert Status Reason Specialty Diagnoses / Referred By Referred To Procedures Contact Contact [facility] [address] [place] [address] [place] [address] Encounter Details Date Type Department Care Team Description 01/27/2020 Emergency [facility] Heena Knott R, Dysuria (Primary Dx) [address] [place] [address] [place] [address] [address] [facility] [id number] [place], [place] [id number] Allergies Active Allergy Reactions Severity Noted Date Comments Ibuprofen Rash 04/19/2017 documented as of this encounter (statuses as of 01/27/2020) Medications Medication Sig Dispensed Refills Start End Status Date Date sod peczx-izgjjw-vxmobs Use 1 Bottle in each 1 Each [...] trigger azelastine 137 mcg (0.1 Use 1 [place] in each 30 mL 4 Active %) [...] as of this encounter (statuses as of 01/27/2020) Active Problems Problem Noted Date Morbid obesity with body mass index of 40.0-49.9 01/02/2020 Indigestion 07/25/2019 Overview: Added automatically from request for surgery [id number] Epigastric pain 07/25/2019 Overview: Added automatically from request for surgery [id number] Type 2 diabetes mellitus with complication, without long-term current use of insulin Neck pain, acute 06/13/2019 Acute bilateral low back pain with bilateral sciatica 06/13/2019 Allergic sinusitis 06/13/2019 Secondary oligomenorrhea 05/10/2019 Overview: 05/10/19 s/p EMB - histology revealed a benign endometrial polyp. Cyclic progesterone started. Abdominal pain, left lower quadrant 05/10/2019 Obesity (BMI 30-39.9) 04/27/2017 documented as of this encounter (statuses as of 01/27/2020) Immunizations Name Administration Dates Next Due Influenza [...] Sign Reading Time Taken Comments Blood Pressure 137/88 01/27/2020 5:23 PM HAND POTTER Pulse 98 01/27/2020 5:23 PM HAND POTTER Temperature 37.1 C (98.8 F) 01/27/2020 4:14 PM HAND POTTER Respiratory Rate 16 01/27/2020 5:23 PM HAND POTTER Oxygen Saturation 99% 01/27/2020 5:23 PM HAND POTTER Inhaled Oxygen Concentration - - Weight 106.6 kg (235 lb) 01/27/2020 3:00 PM HAND POTTER Height - - Body Mass Index 40.34 01/04/2020 11:48 AM HAND POTTER documented in this encounter Discharge Instructions Heena Montemayor EMNP - 01/27/2020NO LIFE-THREATENING FINDINGS ON TODAY'S EXAM. SPECIAL INSTRUCTIONS: 1. Increase fluids 2. See attached information 3. May take 2 tylenol every 4 hours for pain 4. Keep appointment with exercise instruct on February 02. FOLLOW-UP RECOMMENDATIONS: RECOMMEND FOLLOW-UP WITH A PRIMARY CARE PROVIDER OR SPECIALIST IN 2-5 DAYS, ESPECIALLY IF NO IMPROVEMENT IN SYMPTOMS. TO FOLLOW-UP WITHIN THE [facility], TRY THESE OPTIONS (CLINIC APPOINTMENTS AVAILABLE ON COJO-UK-OMPE BASIS): 1. SCHEDULE AN APPOINTMENT ONLINE AT [facility] 2. OR CALL THE [facility] ACCESS CENTER AT OR 3. OR CALL YOUR [facility] PHYSICIAN'S OFFICE DIRECTLY IF YOU ARE ALREADY AN ESTABLISHED [facility] PATIENT. OR, YOU MAY FOLLOW-UP WITH A PROVIDER OF YOUR CHOICE, SUCH : 1. A PHYSICIAN OF YOUR CHOICE 2. [facility], . LOCATIONS IN [facility] 3. [facility], [address] [facility], [place], [place]; RETURN TO ER FOR WORSENING OF SYMPTOMS. AttachmentsThe following attachments cannot be sent through Care Everywhere.Dysuria (Paraguayan)Dysuria, Uncertain Cause (Adult) (Paraguayan) documented in this encounter Plan of Treatment Date Type Specialty Care Team Description 01/29/2020 Office Visit Otolaryngology Jorge L Willett MD [address] [place], [place] [address] 01/31/2020 Office Visit Obstetrics & Gynecology Claritza Velez MD [address] [place] [address] [phone] 03/05/2020 Office Visit Obstetrics & Gynecology Claritza Velez MD [address] [place] [address] [phone] 06/11/2020 Automated Logistics Specialist Visit Endocrinology Diabetes & LamonteRegla alvarez, RD Metabolism [address] [place], [place] [address] Health Maintenance Due Date Last Done Comments [...] Date/Time Associated Comments Diagnosis POCT TEST BHARATHI 01/27/2020 4:24 PM Dysuria Results for this HAND POTTER procedure are in the results section. URINALYSIS STAT 01/27/2020 4:20 PM Dysuria Results for this HAND POTTER procedure are in the results section. CONSENT/REFUSAL FOR Routine 01/27/2020 4:03 PM DIAGNOSIS AND HAND POTTER TREATMENT documented in this encounter Results POCT TEST (01/27/2020 4:24 PM HAND POTTER) POCT PREG negative On board controls acceptable present with C Line Specimen Urine - URINE, CLEAN CATCH URINALYSIS (01/27/2020 4:20 PM HAND POTTER) APPEARANCE Clear Clear [facility] COLOR Yellow Yellow [facility] PH 6.0 4.8 - 8.0 [facility] SP GRAVITY 1.021 1.003 - 1.030 [facility] GLU U QUAL 50 mg/dL (A) Normal [facility] BLOOD 1+ (A) Negative [facility] KETONES Negative Negative [facility] PROTEIN Negative Negative [facility] UROBILIN Normal Normal [facility] BILIRUBIN Negative Negative [facility] NITRITE Negative Negative [facility] LEUK TARA Negative Negative [facility] RBC/HPF 3 0 - 3 HPF [facility] WBC/HPF 1 0 - 5 HPF [facility] BACTERIA Negative Negative [facility] MUCOUS Slight (A) Negative LPF [facility] SQ EPITH 1 HPF [facility] Specimen Urine - URINE, CLEAN CATCH Performing Organization Address City/State/Zipcode Phone Number [facility] CLIA: [id number], [address] [place] [address] [phone] documented in this encounter Visit Diagnoses Diagnosis Dysuria - Primary documented in this encounter Additional Health Concerns Infection Noted Time Resolved Time Contact - ESBL 10/31/2018 4:18 PM HAND POTTER documented as of this encounter Insurance Payer Benefit Plan / Subscriber ID Effective Phone Address Type Group Dates [facility] [id number] 2019-Pres Medicare HEALTHCARE - HEALTHCARE ent Adv HMO MANAGED DUAL COMPLETE MEDICARE HMO TM[employer] MEDICAID OF xxxxxxxxx 2019-Pres [phone] [address] Medicaid [facility] [id number] [place] [address] documented as of this encounter Advance Directives Name Relationship Healthcare Agent Communication Relationship Michelet Brower Life Partner Primary healthcare agent Miranda Morales Sibling Primary healthcare agent
--- OUTSIDE RECORDS SUMMARY | 2020-02-05 16:34 | XMS REPORT | Summary of Care ---
:1985 Author Organization [facility] - [address] [address] Care Team Providers Name Role Phone Klarissa Delgado Flores Insurance Hmo Karoline Alvarez Primary Care Provider Reason for Visit Reason Comments Pain Encounter Details Date Type Department Care Team Description 01/31/2020 Office Visit [facility] Claritza Velez MD Abdominal cramping (Primary Dx); Healthcare- [address] Secondary oligomenorrhea; [address] [place] [address] Type 2 diabetes mellitus with complication, without long-term current use of insulin; [phone] Female infertility associated with anovulation [place], [place] [phone] [address] [phone] Allergies Active Allergy Reactions Severity Noted Date Comments Ibuprofen Rash 04/19/2017 documented as of this encounter (statuses as of 02/01/2020) Medications Medication Sig Dispensed Refills Start End Status Date Date sod wngys-yutlis-zbjnfb Use 1 Bottle in each 1 Each [...] trigger azelastine 137 mcg (0.1 Use 1 [place] in each 30 mL 4 Active %) [...] as of this encounter (statuses as of 02/01/2020) Active Problems Problem Noted Date Morbid obesity with body mass index of 40.0-49.9 01/02/2020 Indigestion 07/25/2019 Overview: Added automatically from request for surgery [id number] Epigastric pain 07/25/2019 Overview: Added automatically from request for surgery [id number] Type 2 diabetes mellitus with complication, without long-term current use of insulin Neck pain, acute 06/13/2019 Acute bilateral low back pain with bilateral sciatica 06/13/2019 Allergic sinusitis 06/13/2019 Secondary oligomenorrhea 05/10/2019 Overview: 05/10/19 s/p EMB - histology revealed a benign endometrial polyp. Cyclic progesterone started. Abdominal pain, left lower quadrant 05/10/2019 Obesity (BMI 30-39.9) 04/27/2017 documented as of this encounter (statuses as of 02/01/2020) Immunizations Name Administration Dates Next Due Influenza [...] Sign Reading Time Taken Comments Blood Pressure 120/81 01/31/2020 1:48 PM MYSQL DATABASE ADMINISTRATOR Pulse 87 01/31/2020 1:48 PM MYSQL DATABASE ADMINISTRATOR Temperature 36.9 C (98.5 F) 01/31/2020 1:48 PM MYSQL DATABASE ADMINISTRATOR Respiratory Rate 18 01/31/2020 1:48 PM MYSQL DATABASE ADMINISTRATOR Oxygen Saturation - - Inhaled Oxygen Concentration - - Weight 106.6 kg (235 lb) 01/31/2020 1:48 PM MYSQL DATABASE ADMINISTRATOR Height - - Body Mass Index 40.34 01/29/2020 9:48 AM MYSQL DATABASE ADMINISTRATOR documented in this encounter Progress Notes Claritza Velez MD - 01/31/2020 2:00 PM CST Chief complaint: Chief Complaint Patient presents with Pain HPI Mckenna Haney is a 35 year old female who presents for follow-up of her Provera therapy. Patient continues to take Provera on days 1 through 10 of every month. During this current round of Provera, patient has noted 2 days of breakthrough bleeding. She has also had abdominal cramp for the past 2 weeks. She denies urinary/bowel complaints or vaginal discharge. She is sexually active and desires . Patient has declined ovulation induction at this point. Histories OB History Para Term AB Living [...] N/A 08/05/2019 Surgeon: Jeanette Pedro MD; Location: [facility] Social History Socioeconomic History Marital status: [...] file Gets together: Not on file Attends sabianist service: Not on file Active member of [...] Yes Partners: Male control/protection: None, Condom Labs I have reviewed the patient's labs. Radiology No new radiology. Allergies Mckenna is allergic to ibuprofen. Medications Mckenna has a current medication list which includes the following prescription(s ): meclizine, docusate, famotidine, medroxyprogesterone, lancets, accu-chek fastclix lancet drum, accu-chek fastclix lancing dev, accu-chek guide glucose meter, accu-chek guide, azelastine, levocetirizine, tramadol, glyburide, metronidazole, buspirone, fluticasone propionate, fluticasone-salmeterol, dicyclomine, and sod ovxbw-bqzxws-aqtoio bottle. Review of Systems Constitutional: Negative. HENT: Negative. Eyes: Negative. Respiratory: Negative. Breasts: Negative. Cardiovascular: Negative. Gastrointestinal: Negative. Genitourinary: Positive for menstrual problem. Musculoskeletal: Negative. Skin: Negative. Neurological: Negative. Psychiatric/Behavioral: Negative. Endocrine: Endocrine negative BP 120/81 (BP Location: Left arm, Patient Position: Sitting, BP CUFF SIZE: Adult Medium) | Pulse 87 | Temp 36.9 C (98.5 F) (Oral) | Resp 18 | Wt 235 lb (106.6 kg) | LMP 01/26/2020 | BMI 40.34kg/m Pregravid BMI: Could not be calculated Physical Exam Deferred Assessment/Plan Mckenna Haney is a 35 year old female who is currently on Provera 10 mg days 1-10 of every month for cycle control with breakthrough bleeding during Provera this current month. Patient is having unprotected intercourse and does desire . Continue Provera every month on days 1 through 10. As patient is having unprotected [place], she will need to take a test before initiating her Provera therapy every month. Patient is concerned about being able to properly use a test at home; therefore, she will present for a nursing visit every month just before the first of the month for test. If it is negative, she will continue her Provera therapy that month. Follow-up in 2 months to check progress. This visit did not involve counseling and coordination that comprised more than 50% of the visit time. Claritza Velez MD documented in this encounter Plan of Treatment Date Type Specialty Care Team Description 02/14/2020 Ancillary Visit Audiology 2, Samantha Audio Sound Suite 02/14/2020 Ancillary Visit Audiology Vestibular, Samantha Audio 02/19/2020 Office Visit Otolaryngology Cathy Aguilar MD [address] [place] [address] [phone] 02/26/2020 Nurse Visit Obstetrics & Gynecology Nurse, [facility] 02/28/2020 Office Visit Otolaryngology Jorge L Willett MD [address] [place] [address] [phone] 03/05/2020 Office Visit Obstetrics & Gynecology Claritza Velez MD [address] [place] [phone] 06/11/2020 Hogshead Mat Assembler Visit Endocrinology Diabetes & Lamonte, Regla, RD Metabolism [address] [place] [address] [phone] Health Maintenance Due Date Last Done Comments VARICELLA VACCINES ( - 1988 2-dose childhood series) EYE EXAM [...] in this encounter Visit Diagnoses Diagnosis Abdominal cramping - Primary Abdominal pain, unspecified site Secondary oligomenorrhea Scanty or infrequent menstruation Type 2 diabetes mellitus with complication, without long-term current use of insulin Female infertility associated with anovulation documented in this encounter Additional Health Concerns Infection Noted Time Resolved Time Contact - ESBL 10/31/2018 4:18 PM MYSQL DATABASE ADMINISTRATOR documented as of this encounter Insurance Payer Benefit Plan / Subscriber ID Effective Phone Address Type Group Dates [facility] [id number] 2019-Pres Medicare HEALTHCARE - HEALTHCARE ent Adv HMO MANAGED DUAL COMPLETE MEDICARE HMO TM[employer] MEDICAID OF xxxxxxxxx 2019-Pres [phone] Medicaid [place] ent 900 [id number] [place] [address] documented as of this encounter Advance Directives Name Relationship Healthcare Agent Communication Relationship Michelet Brower Life Partner Primary healthcare agent Miranda Macdonaldante Sibling Primary healthcare agent "
--- OUTSIDE RECORDS SUMMARY | 2020-02-05 16:34 | XMS REPORT | Summary of Care ---
:1985 Author Organization [facility] - Health Address [address] [place] [address] Care Team Providers Name Role Phone Klarissa Delgado Flores Insurance Hmo Karoline Alvarez SLEEVE TURNER Primary Care Provider Reason for Referral Radiology Services (STAT) Status Reason Specialty Diagnoses / Referred By Referred To Procedures Contact Contact New Request Diagnostic Diagnoses Left upper quadrant pain Ana Cody, Radiology Procedures XR ABDOMEN ACUTE SERIES DO [address] [place] [address]. [address] [place] [address] Reason for Visit Reason Comments Abdominal Pain LUQ PAIN Auth/Cert Status Reason Specialty Diagnoses / Referred By Referred To Procedures Contact Contact [facility] [address] [place] [address] [place] [address] Encounter Details Date Type Department Care Team Description 02/03/2020 Emergency [facility]-Emergency IbZoe reynolds Left upper quadrant pain (Primary Dx); Department F, SLEEVE TURNER Constipation, unspecified constipation type [address] [place] [address] [address] [place] [address] [address] [place] [id number] Allergies Active Allergy Reactions Severity Noted Date Comments Ibuprofen Rash 04/19/2017 documented as of this encounter (statuses as of 02/03/2020) Medications Medication Sig Dispensed Refills Start End Status Date Date sod oexln-ilgysi-fmuswy Use 1 Bottle in each 1 Each [...] trigger azelastine 137 mcg (0.1 Use 1 [place] in each 30 mL 4 Active %) [...] Vertigo times daily as needed for Dizziness. polyethylene glycol Take 17 g by mouth 85 g 0 Active (MIRALAX) 17 gram/dose daily for 5 days. 0 020 powderIndications: Constipation, unspecified constipation type documented as of this encounter (statuses as of 02/03/2020) Active Problems Problem Noted Date Morbid obesity with body mass index of 40.0-49.9 01/02/2020 Indigestion 07/25/2019 Overview: Added automatically from request for surgery [id number] Epigastric pain 07/25/2019 Overview: Added automatically from request for surgery [id number] Type 2 diabetes mellitus with complication, without long-term current use of insulin Neck pain, acute 06/13/2019 Acute bilateral low back pain with bilateral sciatica 06/13/2019 Allergic sinusitis 06/13/2019 Secondary oligomenorrhea 05/10/2019 Overview: 05/10/19 s/p EMB - histology revealed a benign endometrial polyp. Cyclic progesterone started. Abdominal pain, left lower quadrant 05/10/2019 Obesity (BMI 30-39.9) 04/27/2017 documented as of this encounter (statuses as of 02/03/2020) Immunizations Name Administration Dates Next Due Influenza [...] Sign Reading Time Taken Comments Blood Pressure 148/106 02/03/2020 5:22 PM CDT Pulse 83 02/03/2020 5:22 PM CDT Temperature 36.8 C (98.3 F) 02/03/2020 5:22 PM CDT Respiratory Rate 16 02/03/2020 5:22 PM CDT Oxygen Saturation 100% 02/03/2020 5:22 PM CDT Inhaled Oxygen Concentration - - Weight 106.6 kg (235 lb) 02/03/2020 5:22 PM CDT Height 165.1 cm (5' 5") 02/03/2020 5:22 PM CDT Body Mass Index 39.11 02/03/2020 5:22 PM CDT documented in this encounter Discharge Instructions Zoe Dennison FNP - 02/03/2020 You were seen today for Chief Complaint Patient presents with Abdominal Pain LUQ PAIN Your ER diagnosis was ICD-10-CM ICD-9-CM 1. Left upper quadrant pain R10.12 789.02 2. Constipation, unspecified constipation type K59.00 564.00 NO LIFE-THREATENING FINDINGS ON TODAY'S EXAM. YOUR PRESCRIPTIONS : Medication List ASK your doctor about these medications * ACCU-CHEK FASTCLIX LANCET DRUM Mis Generic drug: Lancets Use as directed for once a day blood glucose monitoring for ICD E11.9 * Lancets [facility] Commonly known as: SINGLE-LET FastClix lancets, Use [...] spray Commonly known as: ASTELIN Use 1 [place] in each nostril 2 (two) times daily. Use in each nostril as directed busPIRone 7.5 mg tablet Commonly known as: BUSPAR TAKE 1 TABLET BY MOUTH TWICE DAILY NEEDED FOR ANXIETY dicyclomine 10 mg capsule Commonly known as: [...] by mouth 2 (two) times daily. sod zqaml-znpjfa-vkhata bottle Pkdv Commonly known as: NEILMED SINUS [...] 1. A PHYSICIAN OF YOUR CHOICE 2. [facility], . LOCATIONS IN [place] AND [place] 3. [facility], [address] [place] [address]; OR, IF YOU WISH TO FOLLOW-UP WITHIN THE [facility], MAY TRY THESE OPTIONS (CLINIC APPOINTMENTS AVAILABLE ON [id number] BASIS): 1. SCHEDULE AN APPOINTMENT ONLINE AT [email or web address] 2. OR CALL THE [facility] AT OR 3. OR CALL YOUR [facility] PHYSICIAN'S OFFICE DIRECTLY IF YOU ARE ALREADY AN ESTABLISHED [facility] PATIENT. AttachmentsThe following attachments cannot be sent through Care Everywhere.Constipation, Treating (Yoruba)Diet, Eating a High-Fiber (Yoruba) documented in this encounter Plan of Treatment Date Type Specialty Care Team Description 02/14/2020 Ancillary Visit Audiology 2, Samantha [employer] Sound Suite 02/14/2020 Ancillary Visit Audiology Vestibular, Samantha Audio 02/19/2020 Office Visit Otolaryngology Cathy Aguilar MD [address] [place], [place] [address] 02/26/2020 Nurse Visit Obstetrics & Gynecology Nurse, [facility] 02/28/2020 Office Visit Otolaryngology Jorge L Willett MD [address] [place], [place] [address] 03/05/2020 Office Visit Obstetrics & Gynecology Claritza Velez MD [address] [place] [phone] 06/11/2020 Validation Architect Visit Endocrinology Diabetes & LamonteRegla alvarez, RD Metabolism [address] [place], [place] [address] Health Maintenance Due Date Last Done Comments [...] Associated Comments Diagnosis CBC WITH DIFFERENTIAL STAT 02/03/2020 7:03 Left upper quadrant Results for this PM CDT pain procedure are in the results section. CBC WITH DIFFERENTIAL Routine 02/03/2020 7:03 Left upper quadrant Results for this PM CDT pain procedure are in the results section. COMP. METABOLIC PANEL STAT 02/03/2020 7:03 Left upper quadrant Results for this (35017) PM CDT pain procedure are in the results section. LIPASE STAT 02/03/2020 7:03 Left upper quadrant Results for this PM CDT pain procedure are in the results section. POCT TEST BHARATHI 02/03/2020 7:02 Left upper quadrant Results for this PM CDT pain procedure are in the results section. XR ABDOMEN ACUTE STAT 02/03/2020 5:49 Left upper quadrant Results for this SERIES PM CDT pain procedure are in the results section. POCT TEST BHARATHI 02/03/2020 5:27 Left upper quadrant Results for this PM CDT pain procedure are in the results section. URINALYSIS STAT 02/03/2020 5:25 Left upper quadrant Results for this PM CDT pain procedure are in the results section. CONSENT/REFUSAL FOR Routine 02/03/2020 5:00 DIAGNOSIS AND PM CDT TREATMENT documented in this encounter Results CBC WITH DIFFERENTIAL (02/03/2020 7:03 PM CDT) WBC 11.47 (H) 4.30 - 11.10 [facility] 10*3/L H[facility] RBC 4.38 3.93 - 5.25 [facility] 10*6/L H[facility]ITAL [facility] HGB 14.4 11.6 - 15.0 [facility] g/dL [facility] HCT 42.4 35.7 - 45.2 % [facility] MCV 96.8 (H) 80.6 - 95.5 fL [facility] MCH 32.9 (H) 25.9 - 32.8 pg [facility] MCHC 34.0 31.6 - 35.1 [facility] g/dL HOSPITAL [facility] RDW-SD 44.8 39.0 - 49.9 fL [facility] RDW-CV 12.6 12.0 - 15.5 % [facility] PLT 321 166 - 358 [facility] 10*3/L HOSPITAL [facility] MPV 10.2 9.5 - 12.9 fL [facility] NRBC/100 WBC 0.0 0.0 - 10.0 /100 [facility] WBCs [facility] NRBC x10^3 <0.01 10*3/L [facility] GRAN MAT (NEUT) % 52.8 % [facility] IMM GRAN % 0.40 % [facility] LYMPH % 40.2 % [facility] MONO % 5.4 % [facility] EOS % 0.9 % [facility] BASO % 0.3 % [facility] GRAN MAT x10^3(ANC) 6.06 1.88 - 7.09 [facility] 10*3/uL HOSPITAL LAB[facility] IMM GRAN x10^3 0.05 0.00 - 0.06 [facility] 10*3/uL [facility]ITAL [facility] LYMPH x10^3 4.61 (H) 1.32 - 3.29 [facility] 10*3/uL H[facility]ITAL [facility] MONO x10^3 0.62 0.33 - 0.92 [facility] 10*3/uL HOSPITAL [facility] EOS x10^3 0.10 0.03 - 0.39 [facility] 10*3/uL H[facility]ITAL [facility] BASO x10^3 0.03 0.01 - 0.07 [facility] 10*3/uL [facility] Specimen Blood - VENOUS Performing Organization Address City/[facility]/Zipcode Phone Number [facility] CLIA: [id number], [address] [place] [address] Lipase Serum (02/03/2020 7:03 PM CDT) LIPASE 72 0 - 220 U/L [facility] Specimen Blood - VENOUS Performing Organization Address City/[facility]/Zipcode Phone Number [facility] CLIA: [id number], [address] [place] [address] [phone] COMP. METABOLIC PANEL ([id number]) (02/03/2020 7:03 PM CDT) NA 139 135 - 145 [facility] mmol/L [facility] K 3.9 3.5 - 5.0 [facility] mmol/L HOSPITAL LAB[facility]ORY CL 102 98 - 108 mmol/L [facility] CO2 TOTAL 26 23 - 31 mmol/L [facility] AGAP 11 2 - 16 [facility] BUN 12 7 - 23 mg/dL [facility] GLUCOSE 132 (H) 70 - 110 mg/dL [facility] CREATININE 0.52 0.50 - 1.04 [facility] mg/dL [facility] TOTAL BILI 0.7 0.1 - 1.1 mg/dL [facility] CALCIUM 9.4 8.6 - 10.6 [facility] mg/dL [facility] T PROTEIN 8.3 (H) 6.3 - 8.2 g/dL [facility] ALBUMIN 5.0 3.5 - 5.0 g/dL [facility] ALK PHOS 69 34 - 122 U/L [facility] ALTv 21 5 - 35 U/L [facility] AST(SGOT) 23 13 - 40 U/L [facility] eGFR Calculation 135.8 mL/min/1.73m2 [facility] ([facility] LABORATORY Bangladeshi) eGFR Calculation 164.6 mL/min/1.73m2 [facility] () [facility] LAB[facility] Specimen Blood - VENOUS Narrative Performed [...] City/State/Zipcode Phone Number [facility] CLIA: [id number], [address] [place] [address] [phone] POCT Test, Urine (02/03/2020 7:02 PM CDT) POCT PREG negative On board controls acceptable present with C Line POCT PREG LOT # [id number] POCT PREG TEST DATE 7312,021 Specimen Urine - URINE, CLEAN CATCH XR ABDOMEN ACUTE SERIES (02/03/2020 5:49 PM CDT) Specimen Impressions Performed At Impression: PACS/VR/DOSE 1. Unremarkable bowel gas pattern without evidence for obstruction or free air. 2. No acute cardiopulmonary process. 3. Moderate stool is present throughout the colon suggesting constipation. 4. Cholecystectomy clips are present in the right upper quadrant of the abdomen. RL: [id number] Narrative Performed At ORDERING PHYSICIAN: ANA CODY PACS/VR/DOSE THREE VIEW OBSTRUCTIVE SERIES. DATE: 02/03/2020 CLINICAL INDICATIONS: Abdominal pain. COMPARISON: None. FINDINGS: Single upright view chest demonstrates a normal heart size. Lungs are clear without infiltrate, pleural effusion or pneumothorax. No acute osseous abnormality is present. Supine and upright views of the abdomen demonstrate an unremarkable bowel gas pattern without dilated loops of bowel or air-fluid levels to suggest obstruction. No free air is present within the abdomen. Moderate stool is present throughout the colon suggesting constipation Cholecystectomy clips are present in the right upper quadrant of the abdomen. No acute osseous abnormality is present. Procedure Note [facility], Radiant Results Inft User - 02/03/2020 6:44 PM CDT ORDERING PHYSICIAN: ANA CODY THREE VIEW OBSTRUCTIVE SERIES. DATE: 02/03/2020 CLINICAL INDICATIONS: Abdominal pain. COMPARISON: None. FINDINGS: Single upright view chest demonstrates a normal heart size. Lungs are clear without infiltrate, pleural effusion or pneumothorax. No acute osseous abnormality is present. Supine and upright views of the abdomen demonstrate an unremarkable bowel gas pattern without dilated loops of bowel or air-fluid levels to suggest obstruction. No free air is present within the abdomen. Moderate stool is present throughout the colon suggesting constipation Cholecystectomy clips are present in the right upper quadrant of the abdomen. No acute osseous abnormality is present. IMPRESSION Impression: 1. Unremarkable bowel gas pattern without evidence for obstruction or free air. 2. No acute cardiopulmonary process. 3. Moderate stool is present throughout the colon suggesting constipation. 4. Cholecystectomy clips are present in the right upper quadrant of the abdomen. RL: [id number] Performing Organization Address City/State[facility] Phone Number PACS/VR/DOSE POCT TEST (02/03/2020 5:27 PM CDT) POCT PREG negative On board controls acceptable present with C Line POCT PREG LOT # [id number] POCT PREG TEST DATE 06/26/2021 Specimen Urine - URINE, CLEAN CATCH URINALYSIS (02/03/2020 5:25 PM CDT) APPEARANCE Clear Clear [facility] COLOR Straw (A) Yellow [facility] PH 6.0 4.8 - 8.0 [facility] SP GRAVITY 1.006 1.003 - 1.030 [facility] GLU U QUAL 150 mg/dL (A) Normal [facility] BLOOD Negative Negative [facility] KETONES Negative Negative [facility] PROTEIN Negative Negative [facility] UROBILIN Normal Normal [facility] BILIRUBIN Negative Negative [facility] NITRITE Negative Negative [facility] LEUK TARA Negative Negative [facility] RBC/HPF 1 0 - 3 HPF [facility] WBC/HPF 1 0 - 5 HPF [facility] BACTERIA Few (A) Negative [facility] SQ EPITH 2 HPF [facility] Specimen Urine - URINE, CLEAN CATCH Performing Organization Address [facility] Phone Number [facility] CLIA: [id number], [address] [place] [address] documented in this encounter Visit Diagnoses Diagnosis Left upper quadrant pain - Primary Abdominal pain, left upper quadrant Constipation, unspecified constipation type documented in this encounter Additional Health Concerns Infection Noted Time Resolved Time Contact - ESBL 10/31/2018 4:18 PM UNIT MANAGER documented as of this encounter Insurance Payer Benefit Plan / Subscriber ID Effective Phone Address Type Group Dates [facility] [id number] 2019-Pres Medicare HEALTHCARE - HEALTHCARE ent Adv HMO MANAGED DUAL COMPLETE MEDICARE HMO TMHP MEDICAID OF xxxxxxxxx 2019-Pres [phone] Medicaid [place] ent 900 [id number] [place] [address] documented as of this encounter Advance Directives Name Relationship Healthcare Agent Communication Relationship Michelet Brower Life Partner Primary healthcare agent Miranda Morales Sibling Primary healthcare agent
--- OUTSIDE RECORDS SUMMARY | 2020-02-05 16:34 | XMS REPORT | Summary of Care ---
:1985 Author Organization [facility] - [address] [address] Care Team Providers Name Role Phone Klarissa Delgado Flores Insurance Hmo Karoline Alvarez Primary Care Provider Reason for Visit Reason Comments Pain Encounter Details Date Type Department Care Team Description 01/31/2020 Office Visit [facility] Women's Claritza Velez MD Abdominal cramping (Primary Dx); Healthcare- [address] Secondary oligomenorrhea; [address] [place] [address] Type 2 diabetes mellitus with complication, without long-term current use of insulin; [phone] Female infertility associated with anovulation [place], [place] [phone] [address] [phone] Allergies Active Allergy Reactions Severity Noted Date Comments Ibuprofen Rash 04/19/2017 documented as of this encounter (statuses as of 02/01/2020) Medications Medication Sig Dispensed Refills Start End Status Date Date sod dqcqp-tjkeib-txlrzv Use 1 Bottle in each 1 Each [...] trigger azelastine 137 mcg (0.1 Use 1 Alfred in each 30 mL 4 Active %) [...] Overview: Added automatically from request for surgery [id number] Epigastric pain 07/25/2019 Overview: Added automatically from request for surgery [id number] Type 2 diabetes mellitus with complication, without [...] Comments Blood Pressure 120/81 01/31/2020 1:48 PM PHOTONICS ENGINEERING TECHNICIAN Pulse 87 01/31/2020 1:48 PM PHOTONICS ENGINEERING TECHNICIAN Temperature 36.9 C (98.5 F) 01/31/2020 1:48 PM PHOTONICS ENGINEERING TECHNICIAN Respiratory Rate 18 01/31/2020 1:48 PM PHOTONICS ENGINEERING TECHNICIAN Oxygen Saturation - - Inhaled Oxygen Concentration - - Weight 106.6 kg (235 lb) 01/31/2020 1:48 PM PHOTONICS ENGINEERING TECHNICIAN Height - - Body Mass Index 40.34 01/29/2020 9:48 AM PHOTONICS ENGINEERING TECHNICIAN documented in this encounter Progress Notes Claritza [...] N/A 08/05/2019 Surgeon: Jeanette Pedro MD; Location: [facility] [place] Social History Socioeconomic [...] file Gets together: Not on file Attends pentecostal service: Not on file Active member of [...] buspirone, fluticasone propionate, fluticasone-salmeterol, dicyclomine, and sod ykxxz-qtzbzc-hpxwcc bottle. Review of Systems Constitutional: Negative. HENT: [...] through 10. As patient is having unprotected [place], she will need to take a test [...] 02/19/2020 Office Visit Otolaryngology Cathy Aguilar MD [address] [place] [address] [phone] 02/26/2020 Nurse Visit Obstetrics & Gynecology Nurse, [facility] 02/28/2020 Office Visit Otolaryngology Jorge L Willett MD [address] [place] [address] [phone] 03/05/2020 Office Visit Obstetrics & Gynecology Claritza Velez MD [address] [place] [phone] 06/11/2020 Brand Protection Manager Visit Endocrinology Diabetes & Lamonte, Regla, RD Metabolism [address] [place] [address] [phone] Health Maintenance Due Date Last Done Comments [...] Time Contact - ESBL 10/31/2018 4:18 PM PHOTONICS ENGINEERING TECHNICIAN documented as of this encounter Insurance Payer Benefit Plan / Subscriber ID Effective Phone Address Type Group Dates [facility] [id number] 2019-Pres Medicare HEALTHCARE - HEALTHCARE ent Adv HMO MANAGED DUAL COMPLETE MEDICARE HMO TMHP MEDICAID OF xxxxxxxxx 2019-Pres [phone] Medicaid [place] ent 900 [id number] [place] [address] documented as of this encounter Advance Directives Name Relationship Healthcare Agent Communication Relationship Michelet Brower Life Partner Primary healthcare agent Miranda Macdonaldante Sibling Primary healthcare agent "
--- OUTSIDE RECORDS SUMMARY | 2020-02-05 16:35 | XMS REPORT | Summary of Care ---
:1985 Author Organization [facility] - Health Address [address] [place] [address] Care Team Providers Name Role Phone RafykarisMohantaylor Tanner Insurance Hmo Karoline Alvarez Primary Care Provider Reason for Visit Reason Comments Ear Pain left Auth/Cert Status Reason Specialty Diagnoses / Referred By Referred To Procedures Contact Contact Emergency Medicine [facility] [address] [place] [address] [place] [address] Encounter Details Date Type Department Care Team Description 02/04/2020 Emergency [facility]-Emergency Department Jennifer Rivas MD [address] [place] [address] [place] [address] [address] [place], [place] [address] Allergies Active Allergy Reactions Severity Noted Date Comments Ibuprofen Rash 04/19/2017 documented as of this encounter (statuses as of 02/04/2020) Medications Medication Sig Dispensed Refills Start End Status Date Date sod ivkxu-ywtkyh-hzpwlj Use 1 Bottle in each 1 Each [...] trigger azelastine 137 mcg (0.1 Use 1 [place] in each 30 mL 4 Active %) [...] as of this encounter (statuses as of 02/04/2020) Active Problems Problem Noted Date Morbid obesity with body mass index of 40.0-49.9 01/02/2020 Indigestion 07/25/2019 Overview: Added automatically from request for surgery [id number] Epigastric pain 07/25/2019 Overview: Added automatically from request for surgery [id number] Type 2 diabetes mellitus with complication, without long-term current use of insulin Neck pain, acute 06/13/2019 Acute bilateral low back pain with bilateral sciatica 06/13/2019 Allergic sinusitis 06/13/2019 Secondary oligomenorrhea 05/10/2019 Overview: 05/10/19 s/p EMB - histology revealed a benign endometrial polyp. Cyclic progesterone started. Abdominal pain, left lower quadrant 05/10/2019 Obesity (BMI 30-39.9) 04/27/2017 documented as of this encounter (statuses as of 02/04/2020) Immunizations Name Administration Dates Next Due Influenza [...] Sign Reading Time Taken Comments Blood Pressure 127/66 02/04/2020 11:12 PM CDT Pulse 87 02/04/2020 11:12 PM CDT Temperature 37.1 C (98.7 F) 02/04/2020 11:12 PM CDT Respiratory Rate 12 02/04/2020 11:12 PM CDT Oxygen Saturation 100% 02/04/2020 11:12 PM CDT Inhaled Oxygen Concentration - - Weight 106.6 kg (235 lb) 02/04/2020 11:12 PM CDT Height 162.6 cm (5' 4") 02/04/2020 11:12 PM CDT Body Mass Index 40.34 02/04/2020 11:12 PM CDT documented in this encounter Discharge Instructions InstructionsNeJennifer tabares MD - 02/04/2020 RETURN FOR ANY QUESTIONS OR CONCERNS Today you were seen by Jennifer Rivas Jr., MD You were seen today for Chief Complaint Patient presents with Ear Pain left Your ER diagnosis was No diagnosis found. NO LIFE-THREATENING FINDINGS ON TODAY'S EXAM. YOUR PRESCRIPTIONS : Check out [employer] for medication discounts Medication List ASK your [...] spray Commonly known as: ASTELIN Use 1 [place] in each nostril 2 (two) times daily. [...] by mouth daily for 5 days. sod iazqp-ageelo-wqclry bottle Pkdv Commonly known as: NEILMED SINUS [...] 1. A PHYSICIAN OF YOUR CHOICE 2. [facility] AND [facility], . LOCATIONS IN [facility] 3. [facility], [address] [place] [address]; OR, IF YOU WISH TO FOLLOW-UP WITHIN THE [facility], MAY TRY THESE OPTIONS (CLINIC APPOINTMENTS AVAILABLE ON [id number]-[id number] BASIS): 1. SCHEDULE AN APPOINTMENT ONLINE AT [email or web address] 2. OR CALL THE [facility] ACCESS CENTER AT OR 3. OR CALL YOUR [facility] PHYSICIAN'S OFFICE DIRECTLY IF YOU ARE ALREADY AN ESTABLISHED [facility] PATIENT. [facility] RETURN TO WORK / SCHOOL NASIR Haney WAS SEEN IN THE ER AND DISCHARGED 02/04/2020 TODAY, 11:21 PM & May return to Work / School [...] ___ No school JENNIFER RIVAS Jr., MD [facility] EMERGENCY DEPRTMENT [address] [place] [address] [place] [address] ### The patient may have been given Narcotic pain medications during their stay in the ED that may show up on a Drug Screen. The hospital discharge paper work will identify these medications. AttachmentsThe following attachments cannot be sent through Care Everywhere.Ruptured Eardrum, Traumatic (Tuvaluan)documented in this encounter Plan of Treatment Date Type Specialty Care Team Description 02/14/2020 Ancillary Visit Audiology 2, [facility] Sound Suite 02/14/2020 Ancillary Visit Audiology Vestibular, [facility] 02/19/2020 Office Visit Otolaryngology Cathy Aguilar MD [address] [place] [address] [phone] 02/26/2020 Nurse Visit Obstetrics & Gynecology Nurse, [facility] 02/28/2020 Office Visit Otolaryngology Jorge L Willett MD [address] [place], [place] [address] 03/05/2020 Office Visit Obstetrics & Gynecology Claritza Velez MD [address] [place] [address] [phone] 06/11/2020 Account Classification Clerk Visit Endocrinology Diabetes & Lamonte, Regla, RD Metabolism [address] [place] [address] [phone] Health Maintenance Due Date Last Done Comments VARICELLA VACCINES (1 of 2 - 1988 2-dose childhood series) EYE EXAM 1997 DTaP,Tdap,and Td Vaccines (1 - 1998 Tdap) FOOT EXAM 2005 LDL-C 06/13/2020 06/13/2019 URINE MICROALBUMIN 06/13/2020 06/13/2019 HgA1C 07/02/2020 01/02/2020, 09/09/2019, 08/01/2019, Additional history exists CREATININE (SERUM) 02/02/2021 02/03/2020, 01/09/2020, 01/04/2020, Additional history exists PAP SMEAR 05/01/2022 05/01/2019 PNEUMOCOCCAL 0-64 YEARS COMBINED Completed 06/13/2019 SERIES INFLUENZA VACCINE Completed 09/09/2019 documented as of this encounter Procedures Procedure Name Priority Date/Time Associated Diagnosis Comments CONSENT/REFUSAL FOR Routine 02/04/2020 11:07 PM CDT DIAGNOSIS AND TREATMENT documented in this encounter Results Not on filedocumented in this encounter Additional Health Concerns Infection Noted Time Resolved Time Contact - ESBL 10/31/2018 4:18 PM [employer] SUPERVISOR documented as of this encounter Insurance Payer Benefit Plan / Subscriber ID Effective Phone Address Type Group Dates [facility] [id number] 2019-Pres Medicare HEALTHCARE - HEALTHCARE ent Adv HMO MANAGED DUAL COMPLETE MEDICARE HMO TMHP MEDICAID OF xxxxxxxxx 2019-Pres [phone] Medicaid [place] ent [id number] [place] [address] documented as of this encounter Advance Directives Name Relationship Healthcare Agent Communication Relationship Michelet Brower Life Partner Primary healthcare agent Miranda Morales Sibling Primary healthcare agent
--- NOTE | 2020-02-05 17:53 | ER ---
Nurse's Notes [facility] Name: Mckenna Haney Age: 35 yrs Sex: Female : 1985 Arrival Date: 02/05/2020 Time: 16:13 Bed Waiting Private MD: Diagnosis: Presentation: 02/04 16:41 Chief complaint: Patient states: left ear pain rated at 10/10 that started yesterday. dm5 pt states left maxilla also feels like it is numb. Coronavirus screen: The patient has NOT traveled to a country currently being monitored by the [facility] within the last 14 days. The patient has NOT had contact with any known and/or suspected case of coronavirus. Proceed with normal triage procedures. Ebola Screen: Patient negative for fever greater than or equal to 101.5 degrees Fahrenheit, and additional compatible Ebola Virus Disease symptoms Patient denies exposure to infectious person. Patient denies travel to an Ebola-affected area in the 21 days before illness onset. No symptoms or risks identified at this time. Initial Sepsis Screen: Does the patient meet any 2 criteria? No. Patient's initial sepsis screen is negative. Does the patient have a suspected source of infection? No. Patient's initial sepsis screen is negative. Risk Assessment: Do you want to hurt yourself or someone else? Patient reports no desire to harm self or others. 16:41 Method Of Arrival: Ambulatory 5 16:41 Acuity: LILO 4 dm5 Vital Signs: 16:41 BP 140 / 92; Pulse 89; Resp 18; Temp 98.5(O); Pulse Ox 100% on R/A; Weight 106.59 kg; dm5 Height 5 ft. 4 in. (162.56 cm); Pain 10/10; 16:41 Body Mass Index 40.34 (106.59 kg, 162.56 cm) 5 ED Course: 16:13 Patient arrived in ED. ag5 16:43 Triage completed. dm5 Administered Medications: No medications were administered Outcome: 17:52 Patient left the ED. 5 Signatures: Devika Arce RN RN dm5 Ke Lewis [facility]
[2020-02-05 17:57] VITALS: BP 140/92; TEMP 98.5; O2SAT 100
== END 2020-02-05 17:52 | disposition left against medical advice (07) ==
LOC: ER 16:06
DX: H92.02 Otalgia, left ear (principal); Z53.21 Procedure and treatment not carried out due to patient leaving prior to being seen by health care provider
CPT/HCPCS: 99281

== ENCOUNTER 2020-02-08 18:50 | Emergency (ER) | payer OTHER ==
--- OUTSIDE RECORDS SUMMARY | 2020-02-08 18:52 | XMS REPORT ---
:1985 [facility] Address [address] [place] [address] [address] [address] Care Team Providers Name Role Phone Unavailable [...]
--- OUTSIDE RECORDS SUMMARY | 2020-02-08 18:52 | XMS REPORT ---
[...] Start Date End Date Status Dosage Vernsharitahayde [facility] 10818613197 100 MG Orally Active 1 tablet Once a day Results No Known Results Summary Purpose eClinicalWorks Submission
--- OUTSIDE RECORDS SUMMARY | 2020-02-08 18:52 | XMS REPORT ---
[...] End Status Dosage System Date Date Atorvastatin [facility] 91526271944 10 MG Orally Active 1 tablet Calcium Once a day Meclizine HCl [facility] 64428231804 25 MG Orally April Active 1 tablet as bid prn 07, needed 2019 Alogliptin [facility] 12463474766 25 MG Orally April Active 1 tablet Benzoate Once a day for 28, diabetes 2019 Amoxicillin [facility] 83370216080 500 MG Orally Active 1 capsule Twice a day Vitamin D [facility] 78083608089 2000 UNIT Active 1 tablet Orally Once a day Orphenadrine [facility] [address]-69 100 MG Orally Active as directed Citrate ER Lisinopril [facility] 19628818097 5 MG Orally Active 1 tablet Once a day GlipiZIDE XL [facility] 39132407480 5 MG Orally Active 1 tablet with Once a day food Januvia [facility] 17138891613 100 MG Orally Inactive 1 tablet Once a day Loratadine [facility] 98094689555 10 MG Orally Active 1 tablet Once a day BusPIRone HCl [facility] 44213829009 7.5 MG Orally April 18, Active 1 tablet as Twice a day 2018 needed for anxiety Triamcinolone [facility] 52849449063 0.1 % April Active 1 application Acetonide , to affected Twice a day 2019 areas Results No Known Results Summary Purpose eClinicalWorks Submission
--- OUTSIDE RECORDS SUMMARY | 2020-02-08 18:53 | XMS REPORT ---
[...] Status Dosage System Date Date Dicyclomine HCl [facility] 66500101037 20 MG Orally May Active 1 tablet as Four times a 09, 19, needed for day 2018 2018 stomach pain Triamcinolone [facility] 00473556507 0.1 % April Active 1 application Acetonide Externally 28, to affected Twice a day 2019 areas Loratadine [facility] 45207010471 10 MG Orally Active 1 tablet Once a day Lisinopril [facility] 92966778981 5 MG Orally Active 1 tablet Once a day Farxiga ND 30014559808 5mg Orally May Active 1 tablet Once daily , 2018 Lactulose [facility] 29104028248 10 GM/15ML May Active 15-30 ml Orally Once to , twice a day as 2018 2018 needed for constipation BusPIRone HCl [facility] 23676260818 7.5 MG Orally April 18, Active 1 tablet as Twice a day 2018 needed for anxiety Vitamin D [facility] 77436749446 2000 UNIT Active 1 tablet Orally Once a day Atorvastatin [facility] 20604857292 10 MG Orally Active 1 tablet Calcium Once a day Orphenadrine [facility] [address]-36 100 MG Orally Active as directed Citrate ER Alogliptin [facility] 69699082434 25 MG Orally April Active 1 tablet Benzoate Once a day for , diabetes 2019 Pioglitazone HCl [facility] 49543155316 15 MG Orally May Active 1 tablet Once a day for 05, diabetes 2019 GlipiZIDE XL [facility] 13150019540 5 MG Orally Active 1 tablet with Once a day food Amoxicillin [facility] 66076882427 500 MG Orally Active 1 capsule Twice a day Meclizine HCl [facility] 85511981035 25 MG Orally April Active 1 tablet as Twice daily , needed for 2019 dizziness Results No Known Results Summary Purpose eClinicalWorks Submission
--- OUTSIDE RECORDS SUMMARY | 2020-02-08 18:53 | XMS REPORT ---
[...] End Status Dosage System Date Date Loratadine [facility] 63498660322 10 MG Orally Active 1 tablet Once a day Vitamin D [facility] 70589951506 2000 UNIT Active 1 tablet Orally Once a day Meclizine HCl [place] 43890793878 25 MG Orally April Active 1 tablet as Twice daily 07, needed for 2019 dizziness Pioglitazone HCl ND 46313953981 15 MG Orally May Active 1 tablet Once a day for , diabetes [address] [facility] 29731789944 20 MG Orally May Active 1 tablet as Four times a 09, 19, needed for day 2018 2019 stomach pain Atorvastatin ND 25532376999 10 MG Orally Active 1 tablet Calcium Once a day Lisinopril [facility] 88338975496 5 MG Orally Active 1 tablet Once a day Amoxicillin [facility] 13324582796 500 MG Orally Active 1 capsule Twice a day Alogliptin [facility] 95059994233 25 MG Orally April Active 1 tablet Benzoate Once a day for 28, diabetes [address] [facility] 80068199508 5 MG Orally Active 1 tablet with Once a day food GlipiZIDE [facility] 09927691388 5 MG Orally May Active 1 tablet Once a day [address] [facility] 92575871253 0.1 % April Active 1 application Acetonide Externally , to affected Twice a day 2019 areas BusPIRone HCl [facility] 79007431312 7.5 MG Orally April 18, Active 1 tablet as Twice a day 2018 needed for anxiety Orphenadrine [facility] [address]-16 100 MG Orally Active as directed Citrate ER Results No Known Results Summary Purpose eClinicalWorks Submission
--- OUTSIDE RECORDS SUMMARY | 2020-02-08 18:53 | XMS REPORT ---
[...] Status Dosage System Date Date BusPIRone HCl [facility] 46162841183 7.5 MG Orally April 18, Active 1 tablet as Twice a day 2019 needed for anxiety Vitamin D ND 82435200308 2000 UNIT Active 1 tablet Orally Once a day Atorvastatin [facility] 03446521213 10 MG Orally Active 1 tablet Calcium Once a day Orphenadrine [facility] [address]-89 100 MG Orally Active as directed Citrate ER Meclizine HCl [facility] 93394006509 25 MG Orally April Active 1 tablet as Twice daily 07, needed for 2019 dizziness Lisinopril [facility] 11759115629 5 MG Orally Active 1 tablet Once a day Pioglitazone HCl [facility] 44910264570 15 MG Orally May Active 1 tablet Once a day for , diabetes 2019 Amoxicillin [facility] 23418549963 500 MG Orally Active 1 capsule Twice a day Loratadine [facility] 03871958780 10 MG Orally Active 1 tablet Once a day GlipiZIDE XL [facility] 21833395792 5 MG Orally Active 1 tablet with Once a day food Triamcinolone [facility] 29869331218 0.1 % April Active 1 application Acetonide Externally 28, to affected Twice a day 2019 areas Alogliptin [facility] 58793225114 25 MG Orally April Active 1 tablet Benzoate Once a day for , diabetes 2019 Results No Known Results Summary Purpose eClinicalWorks Submission
--- OUTSIDE RECORDS SUMMARY | 2020-02-08 18:53 | XMS REPORT ---
[...] Status Dosage System Date Date Atorvastatin ND 51020752618 10 MG Orally Active 1 tablet Calcium Once a day Lisinopril ND 25511969892 5 MG Orally Active 1 tablet Once a day Dicyclomine HCl ND 39896034763 20 MG Orally May Active 1 tablet as Four times a 09, 19, needed for day 2018 2018 stomach pain Loratadine ND 45223292480 10 MG Orally Active 1 tablet Once a day Triamcinolone [facility] 75204129920 0.1 % April Active 1 application Acetonide Externally 28, to affected Twice a day 2019 areas GlipiZIDE XL [facility] 75117107595 5 MG Orally Active 1 tablet with Once a day food Pioglitazone HCl [facility] 38916420059 15 MG Orally May Active 1 tablet Once a day for , diabetes 2019 Amoxicillin [facility] 74609722503 500 MG Orally Active 1 capsule Twice a day Orphenadrine [facility] [address]-78 100 MG Orally Active as directed Citrate ER Alogliptin [facility] 60218107547 25 MG Orally April Active 1 tablet Benzoate Once a day for , diabetes 2019 Vitamin D [facility] 81970215529 2000 UNIT Active 1 tablet Orally Once a day BusPIRone HCl [facility] 50241805877 7.5 MG Orally April 18, Active 1 tablet as Twice a day 2019 needed for anxiety Meclizine HCl [facility] 95970957605 25 MG Orally April Active 1 tablet as Twice daily , needed for 2019 dizziness Results No Known Results Summary Purpose eClinicalWorks Submission
--- OUTSIDE RECORDS SUMMARY | 2020-02-08 18:55 | XMS REPORT ---
:1985 [facility] Team Providers Name Role Phone [...] End Status Dosage System Date Date Atorvastatin [facility] 25972704289 10 MG Orally Active 1 tablet Calcium Once a day Orphenadrine [facility] [address]-21 100 MG Orally Active as directed Citrate ER Amoxicillin [facility] 02753794289 500 MG Orally Active 1 capsule Twice a day Meclizine HCl [facility] 02312004395 25 MG Orally April Active 1 tablet as Twice daily , needed for 2019 dizziness BusPIRone HCl [facility] 87531403348 7.5 MG Orally April 18, Active 1 tablet as Twice a day 2018 needed for anxiety Loratadine [facility] 70613030830 10 MG Orally Active 1 tablet Once a day GlipiZIDE XL [facility] 10476694750 5 MG Orally Active 1 tablet with Once a day food Farxiga [facility] 00185936888 5mg Orally May Active 1 tablet Once daily 2018 2019 Pioglitazone HCl [facility] 59045861481 15 MG Orally May Active 1 tablet Once a day for 05, diabetes 2019 Alogliptin [facility] 89753505763 25 MG Orally April Active 1 tablet Benzoate Once a day for 28, diabetes 2019 Triamcinolone [facility] 50846150486 0.1 % April Active 1 application Acetonide Externally 28, to affected Twice a day 2019 areas Lisinopril [facility] 60633685638 5 MG Orally Active 1 tablet Once a day Vitamin D [facility] 47269505507 2000 UNIT Active 1 tablet Orally Once a day BELVIQ [facility] 50509054618 10 MG orally Jun 28Sep Active 1 tablet Twice a day 2018 Results No Known Results Summary Purpose eClinicalWorks Submission
--- OUTSIDE RECORDS SUMMARY | 2020-02-08 19:21 | XMS REPORT | Summary of Care ---
:1985 Author Organization [facility] - Health Address [address] [place] [address] Care Team Providers Name Role Phone RafykarisMohantaylor Tanner Insurance Hmo Karoline Alvarez Primary Care Provider Reason for Visit Reason Comments Shortness of Breath Rash Auth/Cert Status Reason Specialty Diagnoses / Referred By Referred To Procedures Contact Contact Emergency Medicine [facility] Emergency Dept [address] [place] [address] [place] [address] Encounter Details Date Type Department Care Team Description 02/06/2020 Emergency [facility]-Emergency Department Sergo Hicks MD [address] [place] [address] [place] [address] [address] [place] [address] Allergies Active Allergy Reactions Severity Noted Date Comments Ibuprofen Rash 04/19/2017 documented as of this encounter (statuses as of 02/06/2020) Medications Medication Sig Dispensed Refills Start End Status Date Date sod alexf-yfgslg-vquqie Use 1 Bottle in each 1 Each [...] DAILY 9 Medication refill NEEDED FOR ANXIETY glyBURIDE 5 mg Take 1 tablet by [...] trigger azelastine 137 mcg (0.1 Use 1 [place] in each 30 mL 4 Active [...] 0 020 powderIndications: Constipation, unspecified constipation type amoxicillin-clavulanate Take 1 tablet by 20 tablet 0 Active 875-125 mg per mouth 2 (two) times 0 020 tabletIndications: daily for 10 days. Non-recurrent acute suppurative otitis media of left ear without spontaneous rupture of tympanic membrane documented as of this encounter (statuses as of 02/06/2020) Active Problems Problem Noted Date Morbid obesity with body mass index of 40.0-49.9 01/02/2020 Indigestion 07/25/2019 Overview: Added automatically from request for surgery [id number] Epigastric pain 07/25/2019 Overview: Added automatically from request for surgery [id number] Type 2 diabetes mellitus with complication, without long-term current use of insulin Neck pain, acute 06/13/2019 Acute bilateral low back pain with bilateral sciatica 06/13/2019 Allergic sinusitis 06/13/2019 Secondary oligomenorrhea 05/10/2019 Overview: 05/10/19 s/p EMB - histology revealed a benign endometrial polyp. Cyclic progesterone started. Abdominal pain, left lower quadrant 05/10/2019 Obesity (BMI 30-39.9) 04/27/2017 documented as of this encounter (statuses as of 02/06/2020) Immunizations Name Administration Dates Next Due Influenza [...] Sign Reading Time Taken Comments Blood Pressure 160/93 02/05/2020 8:57 PM CDT Pulse 98 02/05/2020 8:57 PM CDT Temperature 36.8 C (98.3 F) 02/05/2020 8:57 PM CDT Respiratory Rate 20 02/05/2020 8:57 PM CDT Oxygen Saturation 100% 02/05/2020 8:57 PM CDT Inhaled Oxygen Concentration - - Weight 106.6 kg (235 lb) 02/05/2020 8:57 PM CDT Height - - Body Mass Index 39.11 02/05/2020 7:16 PM CDT documented in this encounter Plan of Treatment Date Type Specialty Care Team Description 02/14/2020 Ancillary Visit Audiology 2, [facility] Sound Suite 02/14/2020 Ancillary Visit Audiology Vestibular, [facility] 02/19/2020 Office Visit Otolaryngology Cathy Aguilar MD [address] [place] [address] [phone] 02/26/2020 Nurse Visit Obstetrics & Gynecology Nurse, [facility] 02/28/2020 Office Visit Otolaryngology Jorge L Willett MD [address] [place], [place] [address] 03/05/2020 Office Visit Obstetrics & Gynecology Claritza Velez MD [address] [place] [address] [phone] 06/11/2020 Instructor Physical Education Visit Endocrinology Diabetes & LamonteRegla, RD Metabolism [address] [place] [address] [phone] Health Maintenance Due Date Last Done Comments [...] Time Contact - ESBL 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 documented as of this encounter Insurance Payer Benefit Plan / Subscriber ID Effective Phone Address Type Group [facility] [id number] 2019-Prese Medicare Adv HEALTHCARE - HEALTHCARE DUAL nt HMO MANAGED COMPLETE HMO MEDICARE [facility] xxxxxxxxx 2020-Prese Medicaid HEALTHCARE COMM PLUS nt PLAN - MANAGED MEDICAID documented as of this encounter Advance Directives Name Relationship Healthcare Agent Communication Relationship Miranda Macdonaldante Sibling Primary healthcare agent Michelet Brower Significant Other First alternate [phone] healthcare agent (Mobile)
--- OUTSIDE RECORDS SUMMARY | 2020-02-08 19:21 | XMS REPORT | Summary of Care ---
:1985 Author Organization [facility] - Health Address [address] [place] [address] Care Team Providers Name Role Phone Klarissa Delgado Flores Insurance Hmo Karoline Alvarez Primary Care Provider Encounter Details Date Type Department Care Team Description 02/05/2020 Orders Only [facility] Doctor Unassigned, No [address] [facility] [place] [address] [address] [place] [address] Allergies Active Allergy Reactions Severity Noted Date Comments Ibuprofen Rash 04/19/2017 documented as of this encounter (statuses as of 02/05/2020) Medications Medication Sig Dispensed Refills Start End Status Date Date sod pdlvc-[id number] Use 1 Bottle in each 1 Each [...] trigger azelastine 137 mcg (0.1 Use 1 [place] in each 30 mL 4 Active %) [...] as of this encounter (statuses as of 02/05/2020) Active Problems Problem Noted Date Morbid obesity with body mass index of 40.0-49.9 01/02/2020 Indigestion 07/25/2019 Overview: Added automatically from request for surgery [id number] Epigastric pain 07/25/2019 Overview: Added automatically from request for surgery [id number] Type 2 diabetes mellitus with complication, without long-term current use of insulin Neck pain, acute 06/13/2019 Acute bilateral low back pain with bilateral sciatica 06/13/2019 Allergic sinusitis 06/13/2019 Secondary oligomenorrhea 05/10/2019 Overview: 05/10/19 s/p EMB - histology revealed a benign endometrial polyp. Cyclic progesterone started. Abdominal pain, left lower quadrant 05/10/2019 Obesity (BMI 30-39.9) 04/27/2017 documented as of this encounter (statuses as of 02/05/2020) Immunizations Name Administration Dates Next Due Influenza [...] Visit Otolaryngology Cathy Aguilar MD [address] [place] [address] [phone] 02/26/2020 Nurse Visit Obstetrics & Gynecology Nurse, [facility] 02/28/2020 Office Visit Otolaryngology Jorge L Willett MD [address] [place] [address] [phone] 03/05/2020 Office Visit Obstetrics & Gynecology Claritza Velez MD [address] [place] [phone] 06/11/2020 [facility] Visit Endocrinology Diabetes & [address] Metabolism [address] [place] [address] [phone] Health Maintenance Due Date Last Done Comments [...] Date/Time Associated Diagnosis Comments CONSENT/REFUSAL FOR Routine 02/05/2020 8:32 PM CDT DIAGNOSIS AND TREATMENT documented in this encounter Results Not on filedocumented in this encounter Additional Health Concerns Infection Noted Time Resolved Time Contact - ESBL 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
--- NOTE | 2020-02-08 20:44 | ER ---
Nurse's Notes [facility] Name: Mckenna Haney Age: 35 yrs Sex: Female : 1985 Arrival Date: 02/08/2020 Time: 18:52 Bed Waiting Private MD: Diagnosis: Otalgia, left ear Presentation: 02/07 19:30 Chief complaint: Patient states: L ear pain and congestion x 3 days. Was seen by PCP aa1 and started on Augmentin on 02/04 but not improving. Coronavirus screen: The patient has NOT traveled to a country currently being monitored by the [facility] within the last 14 days. Proceed with normal triage procedures. Ebola Screen: No symptoms or risks identified at this time. Initial Sepsis Screen: Does the patient meet any 2 criteria? No. Patient's initial sepsis screen is negative. Does the patient have a suspected source of infection? No. Patient's initial sepsis screen is negative. Risk Assessment: Do you want to hurt yourself or someone else? Patient reports no desire to harm self or others. Care prior to arrival: None. Mechanism of Injury: No Mechanism of Injury. Transition of care: patient was not received from another setting of care. 19:30 Method Of Arrival: Ambulatory aa1 19:30 Acuity: LILO 4 aa1 Triage Assessment: 19:29 General: Appears in no apparent distress. comfortable, Behavior is calm, cooperative, aa1 appropriate for age. 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: 19:29 LMP 02/07/2020 aa1 Historical: - Allergies: 19:29 Ibuprofen (Hives); aa1 - Home Meds: 19:29 amoxicillin 500 mg Oral tab 1 tab every 12 hours [Active]; buspirone 7.5 mg Oral tab 1 aa1 tab 2 times per day [Active]; cyclobenzaprine 7.5 mg Oral tab 1 tab 3 times per day [Active]; glyburide 5 mg Oral tab 1 tab once daily [Active]; hydroxyzine HCl 50 mg Oral tab 1 tab 4 times per day [Active]; meclizine 25 mg Oral tab 1 tab 3 times per day [Active]; medroxyprogesterone 10 mg Oral tab 1 tab once daily [Active]; metronidazole 500 mg Oral tab 1 tab every 6 hours [Active]; - PMHx: 19:29 Diabetes - NIDDM; High Cholesterol; Hypertension; Ovarian cyst; aa1 - PSHx: 19:29 Cholecystectomy; aa1 - Immunization history:: Flu vaccine is not up to date. - Social history:: Smoking status: Patient denies any tobacco usage or history of. Assessment: 20:35 Reassessment: Pt seen in triage by and ISABEL performed; pt denied tx. aa1 Vital Signs: 19:29 BP 155 / 97; Pulse 82; Resp 18; Temp 97.6; Pulse Ox 100% on R/A; Weight 106.59 kg; aa1 Height 5 ft. 1 in. (154.94 cm); Pain 10/10; 19:29 Body Mass Index 44.40 (106.59 kg, 154.94 cm) aa1 ED Course: 18:52 Patient arrived in ED. mr 19:29 Arm band placed on right wrist. Patient placed in waiting room, Patient notified of aa1 wait time. 19:31 Triage completed. aa1 20:11 Korey Roldan MD is Attending Physician. tw4 20:35 Martha Brady RN is Primary Nurse. aa1 20:35 No provider procedures requiring assistance completed. Patient did not have IV access aa1 during this emergency room visit. Administered Medications: No medications were administered Outcome: 20:35 Medical screen evaluation completed per provider. Patient declined treatment. aa1 20:35 Condition: good 20:35 Following a medical screening exam, the patient was provided information regarding alternative care sites and resources available per registration personnel. 20:43 Discharge ordered by . tw4 20:46 Patient left the ED. lt1 Signatures: Martha Brady RN RN [facility] Graciela Ramirez mr Korey Roldan MD MD 4 Justina Bah lt
--- NOTE | 2020-02-08 20:44 | EDPHYS ---
Physician Documentation [facility] Name: Mckenna Haney Age: 35 yrs Sex: Female : 1985 Arrival Date: 02/08/2020 Time: 18:52 Bed Waiting Private MD: ED Physician Korey Roldan HPI: 02/07 20:36 This 35 yrs old Female presents to ER via Ambulatory with complaints of Ear tw4 Pain. 20:36 The patient presents with pain. The complaints affect the left ear. Onset: The tw4 symptoms/episode began/occurred 3 day(s) ago. Modifying factors: The symptoms are alleviated by nothing, the symptoms are aggravated by nothing. Associated signs and symptoms: The patient has no apparent associated signs or symptoms. Severity of symptoms: At their worst the symptoms were moderate in the emergency department the symptoms are unchanged. The patient has not experienced similar symptoms in the past. 20:43 The patient has been recently seen by a physician: the patient's primary care provider, [facility] 1 week(s) ago, with similar presenting complaints, was given a prescription for antibiotics. 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 aa1 Historical: - Allergies: 19:29 Ibuprofen (Hives); aa1 - Home Meds: 19:29 amoxicillin 500 mg Oral tab 1 tab every 12 hours [Active]; buspirone 7.5 mg Oral tab 1 aa1 tab 2 times per day [Active]; cyclobenzaprine 7.5 mg Oral tab 1 tab 3 times per day [Active]; glyburide 5 mg Oral tab 1 tab once daily [Active]; hydroxyzine HCl 50 mg Oral tab 1 tab 4 times per day [Active]; meclizine 25 mg Oral tab 1 tab 3 times per day [Active]; medroxyprogesterone 10 mg Oral tab 1 tab once daily [Active]; metronidazole 500 mg Oral tab 1 tab every 6 hours [Active]; - PMHx: 19:29 Diabetes - NIDDM; High Cholesterol; Hypertension; Ovarian cyst; aa1 - PSHx: 19:29 Cholecystectomy; aa1 - Immunization history:: Flu vaccine is not up to date. - Social history:: Smoking status: Patient denies any tobacco usage or history of. ROS: 20:36 Constitutional: Negative for fever, chills, and weight loss, Eyes: Negative for injury, tw4 pain, redness, and discharge, Respiratory: Negative for shortness of breath, cough, wheezing, and pleuritic chest pain, Abdomen/GI: Negative for abdominal pain, nausea, vomiting, diarrhea, and constipation, Back: Negative for injury and pain. 20:36 MS/Extremity: Negative for injury and deformity, Skin: Negative for injury, rash, and discoloration. 20:36 ENT: Positive for ear pain. Exam: 20:43 Constitutional: This is a well developed, well nourished patient who is awake, alert, tw4 and in no acute distress. Head/Face: Normocephalic, atraumatic. Neck: Trachea midline, no thyromegaly or masses palpated, and no cervical lymphadenopathy. Supple, full range of motion without nuchal rigidity, or vertebral point tenderness. No Meningismus. Chest/axilla: Normal chest wall appearance and motion. Nontender with no deformity. No lesions are appreciated. Cardiovascular: Regular rate and rhythm with a normal S1 and S2. No gallops, murmurs, or rubs. Normal PMI, no JVD. No pulse deficits. Respiratory: Lungs have equal breath sounds bilaterally, clear to auscultation and percussion. No rales, rhonchi or wheezes noted. No increased work of breathing, no retractions or nasal flaring. 20:43 ENT: TM's: erythema, that is mild, on the left, Examination of the other ear shows no obvious abnormality, Mouth: is normal. Vital Signs: 19:29 BP 155 / 97; Pulse 82; Resp 18; Temp 97.6; Pulse Ox 100% on R/A; Weight 106.59 kg; aa1 Height 5 ft. 1 in. (154.94 cm); Pain 10/10; 19:29 Body Mass Index 44.40 (106.59 kg, 154.94 cm) aa1 MDM: 20:39 Differential diagnosis: otitis media, otitis externa. Data reviewed: vital signs, tw4 nurses notes. Counseling: I had a detailed discussion with the patient and/or guardian regarding: the historical points, exam findings, and any diagnostic results supporting the discharge/admit diagnosis. Medical screen evaluation completed. EMTALA emergency medical condition absent. 20:43 Patient medically screened. tw4 Administered Medications: No medications were administered Disposition: 02/08/20 20:43 Discharged to Home. Impression: Otalgia, left ear. - Condition is Stable. - Medication Reconciliation Form, Thank You Letter, Antibiotic Education, Prescription Opioid Use form. - Follow up: Private Physician; When: Upon discharge from the Emergency Department; Reason: Recheck today's complaints, Continuance of care, Re-evaluation by your physician. - Problem is new. - Symptoms have improved. Signatures: Martha Brady RN RN aa1 Korey Roldan MD MD tw4 Justina Bah lt1 Corrections: (The following items were deleted from the chart) 20:46 20:43 02/08/2020 20:43 Discharged to Home. Impression: Otalgia, left ear. Condition is lt1 Stable. Forms are Medication Reconciliation Form, Thank You Letter, Antibiotic Education, Prescription Opioid Use. Follow up: Private Physician; When: Upon discharge from the Emergency Department; Reason: Recheck today's complaints, Continuance of care, Re-evaluation by your physician. Problem is new. Symptoms have improved. tw4
[2020-02-08 21:01] VITALS: BP 155/97; TEMP 97.6; O2SAT 100
== END 2020-02-08 20:46 | disposition home or self-care (01) ==
LOC: ER 18:50
DX: H92.02 Otalgia, left ear (principal); E11.9 Type 2 diabetes mellitus without complications; E78.00 Pure hypercholesterolemia, unspecified; I10 Essential (primary) hypertension
CPT/HCPCS: 99281

== ENCOUNTER 2020-02-13 | Emergency (ER) | payer OTHER ==
--- OUTSIDE RECORDS SUMMARY | 2020-02-13 14:56 | XMS REPORT ---
:1985 [facility] Address [address] [place] [address] [address] Care Team Providers Name Role Phone Unavailable [...]
--- OUTSIDE RECORDS SUMMARY | 2020-02-13 14:56 | XMS REPORT ---
[...] Date End Date Status Dosage Vernsharitahayde [facility] 53811475706 100 MG Orally Active 1 tablet Once a day Results No Known Results Summary Purpose eClinicalWorks Submission
--- OUTSIDE RECORDS SUMMARY | 2020-02-13 14:57 | XMS REPORT ---
[...] Status Dosage System Date Date Atorvastatin [facility] 79669999621 10 MG Orally Active 1 tablet Calcium Once a day Meclizine HCl [facility] 97809766330 25 MG Orally April Active 1 tablet as bid prn 07, needed 2019 Alogliptin [facility] 56525970780 25 MG Orally April Active 1 tablet Benzoate Once a day for 28, diabetes 2019 Amoxicillin [facility] 03951420494 500 MG Orally Active 1 capsule Twice a day Vitamin D [facility] 83192765628 2000 UNIT Active 1 tablet Orally Once a day Orphenadrine [facility] [address]-03 100 MG Orally Active as directed Citrate ER Lisinopril [facility] 90891363653 5 MG Orally Active 1 tablet Once a day GlipiZIDE XL [facility] 06639665680 5 MG Orally Active 1 tablet with Once a day food Januvia [facility] 13013140201 100 MG Orally Inactive 1 tablet Once a day Loratadine [facility] 77847400521 10 MG Orally Active 1 tablet Once a day BusPIRone HCl [facility] 54787250117 7.5 MG Orally April 18, Active 1 tablet as Twice a day 2018 needed for anxiety Triamcinolone [facility] 53186182727 0.1 % April Active 1 application Acetonide , to affected Twice a day 2019 areas Results No Known Results Summary Purpose eClinicalWorks Submission
--- OUTSIDE RECORDS SUMMARY | 2020-02-13 14:57 | XMS REPORT ---
[...] Status Dosage System Date Date Atorvastatin ND 09578871416 10 MG Orally Active 1 tablet Calcium Once a day Lisinopril ND 47140483997 5 MG Orally Active 1 tablet Once a day Dicyclomine HCl ND 80811177937 20 MG Orally May Active 1 tablet as Four times a 09, 19, needed for day 2018 2018 stomach pain Loratadine ND 31620037326 10 MG Orally Active 1 tablet Once a day Triamcinolone [facility] 76707368616 0.1 % April Active 1 application Acetonide Externally 28, to affected Twice a day 2019 areas GlipiZIDE XL [facility] 03909331458 5 MG Orally Active 1 tablet with Once a day food Pioglitazone HCl [facility] 78835689717 15 MG Orally May Active 1 tablet Once a day for , diabetes [address] [facility] 10297773015 500 MG Orally Active 1 capsule Twice a day Orphenadrine [facility] [address]-87 100 MG Orally Active as directed Citrate ER Alogliptin [facility] 71893381678 25 MG Orally April Active 1 tablet Benzoate Once a day for , diabetes 2019 Vitamin D [facility] 71903738681 2000 UNIT Active 1 tablet Orally Once a day BusPIRone HCl [facility] 29128105737 7.5 MG Orally April 18, Active 1 tablet as Twice a day 2019 needed for anxiety Meclizine HCl [facility] 21437206822 25 MG Orally April Active 1 tablet as Twice daily , needed for 2019 dizziness Results No Known Results Summary Purpose eClinicalWorks Submission
--- OUTSIDE RECORDS SUMMARY | 2020-02-13 14:57 | XMS REPORT ---
[...] Dosage System Date Date Dicyclomine HCl [facility] 49075070750 20 MG Orally May Active 1 tablet as Four times a 09, 19, needed for day 2018 2018 stomach pain Triamcinolone [facility] 18570406065 0.1 % April Active 1 application Acetonide Externally 28, to affected Twice a day 2019 areas Loratadine [facility] 75660017885 10 MG Orally Active 1 tablet Once a day Lisinopril [facility] 38625236894 5 MG Orally Active 1 tablet Once a day Farxiga ND 01683162624 5mg Orally May Active 1 tablet Once daily , 2018 Lactulose [facility] 08599730856 10 GM/15ML May Active 15-30 ml Orally Once to , twice a day as 2018 2018 needed for constipation BusPIRone HCl [facility] 54082172086 7.5 MG Orally April 18, Active 1 tablet as Twice a day 2018 needed for anxiety Vitamin D [facility] 17907288499 2000 UNIT Active 1 tablet Orally Once a day Atorvastatin [facility] 64955638147 10 MG Orally Active 1 tablet Calcium Once a day Orphenadrine [facility] [address]-75 100 MG Orally Active as directed Citrate ER Alogliptin [facility] 39911923403 25 MG Orally April Active 1 tablet Benzoate Once a day for , diabetes 2019 Pioglitazone HCl [facility] 11805572230 15 MG Orally May Active 1 tablet Once a day for 05, diabetes 2019 GlipiZIDE XL [facility] 76722019961 5 MG Orally Active 1 tablet with Once a day food Amoxicillin [facility] 08919141094 500 MG Orally Active 1 capsule Twice a day Meclizine HCl [facility] 06974129277 25 MG Orally April Active 1 tablet as Twice daily , needed for 2019 dizziness Results No Known Results Summary Purpose eClinicalWorks Submission
--- OUTSIDE RECORDS SUMMARY | 2020-02-13 14:57 | XMS REPORT ---
[...] Status Dosage System Date Date BusPIRone HCl [facility] 11857978331 7.5 MG Orally April 18, Active 1 tablet as Twice a day 2019 needed for anxiety Vitamin D ND 12651680934 2000 UNIT Active 1 tablet Orally Once a day Atorvastatin [facility] 07386841596 10 MG Orally Active 1 tablet Calcium Once a day Orphenadrine [facility] [address]-63 100 MG Orally Active as directed Citrate ER Meclizine HCl [facility] 62920262209 25 MG Orally April Active 1 tablet as Twice daily 07, needed for 2019 dizziness Lisinopril [facility] 18328155169 5 MG Orally Active 1 tablet Once a day Pioglitazone HCl [facility] 16053896295 15 MG Orally May Active 1 tablet Once a day for , diabetes 2019 Amoxicillin [facility] 16830765157 500 MG Orally Active 1 capsule Twice a day Loratadine [facility] 94699824019 10 MG Orally Active 1 tablet Once a day GlipiZIDE XL [facility] 20822367212 5 MG Orally Active 1 tablet with Once a day food Triamcinolone [facility] 59745887551 0.1 % April Active 1 application Acetonide Externally 28, to affected Twice a day 2019 areas Alogliptin [facility] 40548454682 25 MG Orally April Active 1 tablet Benzoate Once a day for , diabetes 2019 Results No Known Results Summary Purpose eClinicalWorks Submission
--- OUTSIDE RECORDS SUMMARY | 2020-02-13 14:57 | XMS REPORT ---
[...] End Status Dosage System Date Date Loratadine [facility] 20014722407 10 MG Orally Active 1 tablet Once a day Vitamin D [facility] 38014737738 2000 UNIT Active 1 tablet Orally Once a day Meclizine HCl ND 44360945297 25 MG Orally April Active 1 tablet as Twice daily 07, needed for 2019 dizziness Pioglitazone HCl ND 67969404231 15 MG Orally May Active 1 tablet Once a day for , diabetes 2019 Dicyclomine HCl [facility] 90148966208 20 MG Orally May Active 1 tablet as Four times a 09, 19, needed for day 2018 2019 stomach pain Atorvastatin ND 51329344040 10 MG Orally Active 1 tablet Calcium Once a day Lisinopril [facility] 38741272780 5 MG Orally Active 1 tablet Once a day Amoxicillin [facility] 75148204075 500 MG Orally Active 1 capsule Twice a day Alogliptin [facility] 96506543002 25 MG Orally April Active 1 tablet Benzoate Once a day for 28, diabetes 2018 GlipiZIDE XL [facility] 51816167475 5 MG Orally Active 1 tablet with Once a day food GlipiZIDE [facility] 61458725138 5 MG Orally May Active 1 tablet Once a day 2018 Triamcinolone [facility] 28109736351 0.1 % April Active 1 application Acetonide Externally , to affected Twice a day 2019 areas BusPIRone HCl [facility] 43640967628 7.5 MG Orally April 18, Active 1 tablet as Twice a day 2018 needed for anxiety Orphenadrine [facility] [address]-38 100 MG Orally Active as directed Citrate ER Results No Known Results Summary Purpose eClinicalWorks Submission
--- OUTSIDE RECORDS SUMMARY | 2020-02-13 14:58 | XMS REPORT ---
:1985 [facility] Care Team Providers Name Role Phone Klarissa [...] End Status Dosage System Date Date Atorvastatin [facility] 29029121880 10 MG Orally Active 1 tablet Calcium Once a day Orphenadrine [facility] [address]-15 100 MG Orally Active as directed Citrate ER Amoxicillin [facility] 03957821890 500 MG Orally Active 1 capsule Twice a day Meclizine HCl [facility] 00391032882 25 MG Orally April Active 1 tablet as Twice daily , needed for 2019 dizziness BusPIRone HCl [facility] 27975677475 7.5 MG Orally April 18, Active 1 tablet as Twice a day 2018 needed for anxiety Loratadine [facility] 70729632210 10 MG Orally Active 1 tablet Once a day GlipiZIDE XL [facility] 39566216960 5 MG Orally Active 1 tablet with Once a day food Farxiga [facility] 29728808705 5mg Orally May Active 1 tablet Once daily 2018 2019 Pioglitazone HCl [facility] 04113096286 15 MG Orally May Active 1 tablet Once a day for 05, diabetes 2019 Alogliptin [facility] 99680035924 25 MG Orally April Active 1 tablet Benzoate Once a day for 28, diabetes 2019 Triamcinolone [facility] 08603198802 0.1 % April Active 1 application Acetonide Externally 28, to affected Twice a day 2019 areas Lisinopril [facility] 87041540496 5 MG Orally Active 1 tablet Once a day Vitamin D [facility] 75136235745 2000 UNIT Active 1 tablet Orally Once a day BELVIQ [facility] 45700071389 10 MG orally Jun 28Sep Active 1 tablet Twice a day 2018 Results No Known Results Summary Purpose eClinicalWorks Submission
--- OUTSIDE RECORDS SUMMARY | 2020-02-13 15:18 | XMS REPORT | Summary of Care ---
:1985 Author Organization [facility] Address [address] [place] [address] Care Team Providers Name Role Phone Klarissa Delgado Insurance Hmo Karoline Alvarez Primary Care Provider Reason for Visit Reason Comments Sore Throat Fever Cough Body Aches Encounter Details Date Type Department Care Team Description 02/12/2020 Office Visit [facility] Family Shante Tello, LILIANA [address] [place] [address] Acute URI (Primary Dx); [facility], Acute Care Clinic Cough; [address] [place] [phone] Allergies Active Allergy Reactions Severity Noted Date Comments Ibuprofen Rash 04/19/2017 documented as of this encounter (statuses as of 02/12/2020) Medications Medication Sig Dispensed Refills Start End Status Date Date sod sxvzv-zlmbkv-gfsyqj Use 1 Bottle in each 1 Each [...] trigger azelastine 137 mcg (0.1 Use 1 [place] in each 30 mL 4 Active %) [...] Vertigo times daily as needed for Dizziness. amoxicillin-clavulanate Take 1 tablet by 20 tablet 0 Active 875-125 mg per mouth 2 (two) times 0 020 tabletIndications: daily for 10 days. Non-recurrent acute suppurative otitis media of left ear without spontaneous rupture of tympanic membrane benzonatate (TESSALON Take 1 capsule by 30 capsule 0 Active PERLES) 100 mg mouth 3 (three) 0 020 capsuleIndications: times daily for 10 Acute URI, Cough, days. Exposure to viral disease documented as of this encounter (statuses as of 02/12/2020) Active Problems Problem Noted Date Morbid obesity with body mass index of 40.0-49.9 01/02/2020 Indigestion 07/25/2019 Overview: Added automatically from request for surgery [id number] Epigastric pain 07/25/2019 Overview: Added automatically from request for surgery [id number] Type 2 diabetes mellitus with complication, without long-term current use of insulin Neck pain, acute 06/13/2019 Acute bilateral low back pain with bilateral sciatica 06/13/2019 Allergic sinusitis 06/13/2019 Secondary oligomenorrhea 05/10/2019 Overview: 05/10/19 s/p EMB - histology revealed a benign endometrial polyp. Cyclic progesterone started. Abdominal pain, left lower quadrant 05/10/2019 Obesity (BMI 30-39.9) 04/27/2017 documented as of this encounter (statuses as of 02/12/2020) Immunizations Name Administration Dates Next Due Influenza [...] Sign Reading Time Taken Comments Blood Pressure 120/70 02/12/2020 1:16 PM CDT Pulse 86 02/12/2020 1:16 PM CDT Temperature 36.9 C (98.4 F) 02/12/2020 1:16 PM CDT Respiratory Rate - - Oxygen Saturation 96% 02/12/2020 1:16 PM CDT Inhaled Oxygen Concentration - - Weight 106.6 kg (235 lb) 02/12/2020 1:16 PM CDT Height 162.6 cm (5' 4") 02/12/2020 1:16 PM CDT Body Mass Index 40.34 02/12/2020 1:16 PM CDT documented in this encounter Progress Notes Shante Tello PA - 02/12/2020 12:40 PM CDT Cc: Chief Complaint Patient presents with Sore Throat Fever Cough Body Aches Quinten Souza is a 35 year old female. Patient here with URI symptoms that began today. Patient reports having test positive for COVID-19 today. URI Presenting symptoms: congestion, cough, ear pain, fever (100.1) and sore throat Presenting symptoms: no facial pain, no fatigue and no rhinorrhea Duration: 1 day Chronicity: New Worsened by: Nothing Associated symptoms: arthralgias Associated symptoms: no headaches, no myalgias, no neck pain, no sinus pain, no sneezing, no swollenglands and no wheezing Risk factors: sick contacts Risk factors: not elderly, no chronic cardiac disease, no chronic kidney disease , no chronic respiratory disease, no diabetes mellitus, no immunosuppression, no recent illness and no recent travel Allergies uQinten is allergic to ibuprofen. Medications Outpatient Medications Prior to Visit Medication Sig Dispense Refill amoxicillin-clavulanate 875-125 mg per tablet Take 1 tablet by mouth 2 (two ) times daily for 10 days. 20 tablet 0 meclizine 25 mg tablet Take 1 tablet by mouth 3 (three) times daily as needed for Dizziness. 20 tablet 0 docusate (COLACE) 100 mg capsule Take [...] mcg (0.1 %) nasal spray Use 1 [place] in each nostril 2 (two) times daily. [...] mouth daily with breakfast. 90 tablet 0 busPIRone 7.5 mg tablet TAKE [...] for Abdominal pain. 30 capsule 0 sod yiiuv-jlxeqv-cectgs bottle (NEILMED SINUS RINSE COMPLETE) pkdv Use [...] N/A 08/05/2019 Surgeon: Jeanette Pedro MD; [place] [facility] [place] Social History Socioeconomic History Marital status: Spouse name: Not on file Number of [...] Grandfather Review of Systems Constitutional: Positive for fever (100.1). Negative for activity change, appetite change, chills, diaphoresis and fatigue. HENT: Positive for congestion, ear pain and sore throat. Negative for postnasal drip, rhinorrhea, sinus pressure, sinus pain, sneezing, trouble swallowing and voice change. Eyes: Negative for pain, discharge, redness and itching. Respiratory: Positive for cough. Negative for chest tightness, shortness of breath and wheezing. Cardiovascular: Negative for chest pain, palpitations and leg swelling. Gastrointestinal: Negative for abdominal pain, constipation, diarrhea, nausea and vomiting. Musculoskeletal: Positive for arthralgias. Negative for myalgias and neck pain. Neurological: Negative for dizziness, syncope, weakness, light-headedness and headaches. Vital Signs BP 120/70 | Pulse 86 | Temp 36.9 C (98.4 F) (Oral) | Ht 5' 4" (1.626 m) | Wt 235 lb (106.6 kg) | LMP 01/26/2020 | SpO2 96% | BMI 40.34 kg/m afe Physical Exam Constitutional: She is oriented to person, place, and time. She appears well- developed and well-nourished. No distress. HENT: Head: Normocephalic and atraumatic. Right Ear: Tympanic membrane, external ear and ear canal normal. Left Ear: Tympanic membrane, external ear and ear canal normal. Nose: Mucosal edema present. No rhinorrhea. Mouth/Throat: Uvula is midline, oropharynx is clear and moist and mucous membranes are normal. No oropharyngeal exudate, posterior oropharyngeal edema, posterior oropharyngeal erythema or tonsillar abscesses. Tonsils are 0 on the right. Tonsils are 0 on the left. No tonsillar exudate. Eyes: Conjunctivae are normal. Neck: Normal range of motion. Neck supple. Cardiovascular: Normal rate, regular rhythm and normal heart sounds. Pulmonary/Chest: Effort normal and breath sounds normal. Abdominal: Soft. Bowel sounds are normal. She exhibits no distension. There is no tenderness. There is no rebound and no guarding. Musculoskeletal: Normal range of motion. She exhibits no edema. Lymphadenopathy: She has no cervical adenopathy. Neurological: She is alert and oriented to person, place, and time. Skin: Skin is warm and dry. No rash noted. She is not diaphoretic. Psychiatric: She has a normal mood and affect. Her behavior is normal. Nursing note and vitals reviewed. Assessment/Plan Acute URI (primary encounter diagnosis) Cough Exposure to viral disease Plan: POCT FLU A AND B (MOLECULAR), POCT GRP A STREP (MOLECULAR), benzonatate (TESSALON PERLES) 100 mg capsule Afebrile, well appearing, NAD, HR < 100. Lungs CTAB. Negative flu and strep testing. Known COVID 19 exposure. Will get COVID 19 testing to further evaluate Results for QUINTEN SOUZA ( ) as of 02/12/2020 13:40 Ref. Range 02/12/2020 00:00 POCT GP A STREP Latest Ref Range: Negative - Negative negative POCT INFLUENZA A Latest Ref Range: Negative - Negative Negative POCT INFLUENZA B Latest Ref Range: Negative - Negative Negative Educated on the following at home care: -Increase water intake, min 64 oz daily -Take over the counter vitamin C -Take Tylenol as needed -Take tessalon as needed for cough -Take otc zyrtec/devika/claritin -REST -Wash hands often -Cover mouth when coughing, wear mask -Quarantine until your COVID results are back -Stay in your own bedroom and use a separate bathroom -Keep at least 6 feet from you and others -Avoid sharing personal household items, dishes, glasses, cups, towels -Clean high traffic/touch areas daily. These include but not limited to: doorknobs, refrigerator/cabinet handles, phones, keyboards, tablets, light switches. -Monitor your symptoms. Take your temperature 2 times daily. -Monitor your symptoms. Go to the ED if worsening symptoms: chest pain, difficulty breathing, coughing up blood, weakness, dizziness, passing out. Pt ed/precautions given in detail regarding conditions/medicaitons. Er precautions given. Pt reportsunderstanding and agrees. rtc if s/s worsen or do not improve; Plan of care, desired health behaviors, goals, Ddx, & any prescribed or OTC medications discussed with patient. Education resources & self management tools provided and reviewed with AVS. Patient/guardian/family verbalized understanding & agrees to plan of care. Barriers to care: NONE Ability to manage care: Good This visit did not involve counseling and coordination that comprised more than 50% of the visit time.Electronically signed by Shante Tello PA at 2019 1:40 PM CDTdocumented in this encounter Plan of Treatment Date Type Specialty Care Team Description 02/14/2020 Ancillary Visit Audiology Umm Fitch, PHD [address] [facility] [id number] [place] [id number] 2, [employer] 02/14/2020 Ancillary Visit Audiology Vestibular, [employer] 02/19/2020 Office Visit Otolaryngology Cathy Aguilar MD [address] [place], [place] [address] 02/26/2020 Nurse Visit Obstetrics & Gynecology Nurse, [facility] 02/28/2020 Office Visit Otolaryngology Jorge L Willett MD [address] [place], [place] [phone] 03/05/2020 Office Visit Obstetrics & Gynecology Claritza Velez MD [address] [place] [phone] 06/11/2020 Surgical Instrument Technician Visit Endocrinology Diabetes & Lamonte, ANTONIO Arauz Metabolism [address] [place], [place] [address]85[address] Health Maintenance Due Date Last Done Comments [...] Name Priority Date/Time Associated Diagnosis Comments POCT FLU A AND B Routine 02/12/2020 Acute URI Results for this (MOLECULAR) Cough procedure are in the Exposure to viral results section. disease POCT GRP A STREP Routine 02/12/2020 Acute URI Results for this (MOLECULAR) Cough procedure are in the Exposure to viral results section. disease documented in this encounter Results POCT GRP A STREP (MOLECULAR) (02/12/2020) POCT GP A STREP negative Negative - Negative Specimen Swab - THROAT POCT FLU A AND B (MOLECULAR) (02/12/2020) POCT INFLUENZA A Negative Negative - Negative POCT INFLUENZA B Negative Negative - Negative Specimen Swab documented in this encounter Visit Diagnoses Diagnosis Acute URI - Primary Acute upper respiratory infections of unspecified site Cough Exposure to viral disease Contact with or exposure to other viral diseases documented in this encounter Additional Health Concerns Infection Noted Time Resolved Time Contact - ESBL 10/31/2018 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 documented as of this encounter Insurance Payer Benefit Plan / Subscriber ID Effective Phone Address Type Group [facility] [id number] 2019-Prese Medicare Adv HEALTHCARE - HEALTHCARE DUAL nt HMO MANAGED COMPLETE HMO MEDICARE [facility] STAR xxxxxxxxx 2020-Prese Medicaid HEALTHCARE COMM PLUS nt PLAN - MANAGED MEDICAID documented as of this encounter Advance Directives Name Relationship Healthcare Agent Communication Relationship Miranda Morales Sibling Primary healthcare agent Michelet Brower Significant Other First alternate [phone] healthcare agent (Mobile)
--- OUTSIDE RECORDS SUMMARY | 2020-02-13 15:18 | XMS REPORT | Summary of Care ---
:1985 Author Organization [facility] Address [address] [place] [address] Care Team Providers Name Role Phone Klarissa Delgado Insurance Hmo Karoline Alvarez Primary Care Provider Reason for Visit Reason Comments Sore Throat Fever Cough Body Aches Encounter Details Date Type Department Care Team Description 02/12/2020 Office Visit [facility] Family Shante Tello, LILIANA [address] [place] [address] Acute URI (Primary Dx); [facility], Acute Care Clinic Cough; [address] Exposure [place] [phone] Allergies Active Allergy Reactions Severity Noted Date Comments Ibuprofen Rash 04/19/2017 documented as of this encounter (statuses as of 02/12/2020) Medications Medication Sig Dispensed Refills Start End Status Date Date sod elrwz-pxkece-ixnxtd Use 1 Bottle in each 1 Each [...] trigger azelastine 137 mcg (0.1 Use 1 [place] in each 30 mL 4 Active [...] Overview: Added automatically from request for surgery [id number] Epigastric pain 07/25/2019 Overview: Added automatically from request for surgery [id number] Type 2 diabetes mellitus with complication, without [...] recent illness and no recent travel Allergies Quinten is allergic to ibuprofen. Medications Outpatient Medications [...] mcg (0.1 %) nasal spray Use 1 [place] in each nostril 2 (two) times daily. [...] for Abdominal pain. 30 capsule 0 sod hglts-rtxvfj-ajueax bottle (NEILMED SINUS RINSE COMPLETE) pkdv Use [...] N/A 08/05/2019 Surgeon: Jeanette Pedro MD; [place] [facility] [place] Social History Socioeconomic History Marital status: Spouse [...] file Gets together: Not on file Attends anabaptist service: Not on file Active member of [...] Treatment Date Type Specialty Care Team Description 02/24/2020 Ancillary Visit Audiology 2, [employer] 02/26/2020 Nurse Visit Obstetrics & Gynecology Nurse, [facility] 02/26/2020 Office Visit Otolaryngology Cathy Aguilar MD [address] [place] [address] [phone] 02/28/2020 Office Visit Otolaryngology Jorge L Willett MD [address] [place] [address] [phone] 03/05/2020 Office Visit Obstetrics & Gynecology Claritza Velez MD [address] [place] [phone] 06/11/2020 Forestry Workers Visit Endocrinology Diabetes & [address] Metabolism [address] [place] [address] [phone] Name Type Priority Associated Diagnoses Order Schedule CORONAVIRUS COVID-19 LAB Routine Cough Expected: 02/12/2020, TESTING Expires: 02/11/2021 Health Maintenance Due Date Last Done Comments [...] Time Contact - ESBL 10/31/2018 4:18 PM 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
--- OUTSIDE RECORDS SUMMARY | 2020-02-13 15:18 | XMS REPORT | Summary of Care ---
:1985 Author Organization [facility] - Health Address [address] [place] [address] Care Team Providers Name Role Phone Klarissa Delgado Insurance Hmo Karoline Alvarez PHYSICIAN PRIMARY CARE SPORTS MEDICINE Primary Care Provider Reason for Referral (Routine) Status Reason Specialty Diagnoses / Referred By Referred To Procedures Contact Contact New Request Otolaryngology Diagnoses Recurrent acute suppurative otitis media without spontaneous rupture of left tympanic membrane Karoline Alvarez, Procedures CONSULT/REFERRAL ENT PHYSICIAN PRIMARY CARE SPORTS MEDICINE [address] [address] Reason for Visit Reason Comments Sore Throat x 1 day Cough Ear Pain 09/05 Encounter Details Date Type Department Care Team Description 02/10/2020 Office Visit [facility] Karoline Alvarez PHYSICIAN PRIMARY CARE SPORTS MEDICINE Recurrent acute Medicine - [place] [address] [address] [facility] suppurative otitis [address] media without [place], [place] [address] spontaneous rupture [address] [place] of left tympanic [phone] membrane (Primary Dx) [phone] Allergies Active Allergy Reactions Severity Noted Date Comments Ibuprofen Rash 04/19/2017 documented as of this encounter (statuses as of 02/10/2020) Medications Medication Sig Dispensed Refills Start End Status Date Date sod yacdw-hkckmi-fnzfxm Use 1 Bottle in each 1 Each [...] trigger azelastine 137 mcg (0.1 Use 1 [place] in each 30 mL 4 Active %) [...] as of this encounter (statuses as of 02/10/2020) Active Problems Problem Noted Date Morbid obesity with body mass index of 40.0-49.9 01/02/2020 Indigestion 07/25/2019 Overview: Added automatically from request for surgery [id number] Epigastric pain 07/25/2019 Overview: Added automatically from request for surgery [id number] Type 2 diabetes mellitus with complication, without long-term current use of insulin Neck pain, acute 06/13/2019 Acute bilateral low back pain with bilateral sciatica 06/13/2019 Allergic sinusitis 06/13/2019 Secondary oligomenorrhea 05/10/2019 Overview: 05/10/19 s/p EMB - histology revealed a benign endometrial polyp. Cyclic progesterone started. Abdominal pain, left lower quadrant 05/10/2019 Obesity (BMI 30-39.9) 04/27/2017 documented as of this encounter (statuses as of 02/10/2020) Immunizations Name Administration Dates Next Due Influenza [...] Sign Reading Time Taken Comments Blood Pressure 139/92 02/10/2020 2:27 PM CDT Pulse 82 02/10/2020 2:27 PM CDT Temperature 36.7 C (98.1 F) 02/10/2020 2:27 PM CDT Respiratory Rate 18 02/10/2020 2:27 PM CDT Oxygen Saturation - - Inhaled Oxygen Concentration - - Weight 105.4 kg (232 lb 6.4 oz) 02/10/2020 2:27 PM CDT Height - - Body Mass Index 38.67 02/05/2020 7:16 PM CDT documented in this encounter Progress Notes Karoline Alvarez FNP - 02/10/2020 2:20 PM CDT Cc: Chief Complaint Patient presents with Sore Throat x 1 day Cough Ear Pain 09/05 Mckenna Haney is a 35 year old female. Patient was seen at the ED and or urgent care for otitis media. She is still taking Augmentin and here for same issues. She did not mention the recent visits to the ER, reports sore throat and left earpain. The sore throat has subsided and her cough is dry as with her allergies and she is taking her allergy meds here and there and not routinely. URI Presenting symptoms: cough, ear pain and sore throat Presenting symptoms: no fever Cough: Cough characteristics: Dry Sputum characteristics: Nondescript Severity: Mild Onset quality: Gradual Timing: Intermittent Progression: Improving Chronicity: New Ear pain: Location: Left Severity: Moderate Onset quality: Gradual Timing: Constant Progression: Unchanged Chronicity: Recurrent Sore throat: Severity: Mild Onset quality: Gradual Timing: Intermittent Progression: Resolved Severity: Mild Onset quality: Gradual Timing: Intermittent Progression: Resolved Chronicity: Recurrent Relieved by: Nothing Worsened by: Nothing Ineffective treatments: OTC medications and prescription medications Associated symptoms: no myalgias, no sinus pain, no swollen glands and no wheezing Risk factors: sick contacts ( ) Risk factors: no recent travel Allergies Mckenna is allergic to ibuprofen. Medications [...] mcg (0.1 %) nasal spray Use 1 [place] in each nostril 2 (two) times daily. [...] for Abdominal pain. 30 capsule 0 sod qifhr-aopmfk-luwcdr bottle (NEILMED SINUS RINSE COMPLETE) pkdv Use [...] N/A 08/05/2019 Surgeon: Jeanette Pedro MD; Location: [facility] [place] [facility] Social History Socioeconomic History Marital status: Spouse [...] file Gets together: Not on file Attends taoism service: Not on file Active member of [...] Review of Systems Constitutional: Negative. Negative for activity change, appetite change, chills and fever. HENT: Positive for ear pain and sore throat. Negative for sinus pain, trouble swallowing and voice change. Respiratory: Positive for cough. Negative for apnea, choking, chest tightness, shortness of breath and wheezing. Cardiovascular: Negative. Negative for chest pain, palpitations and leg swelling. Gastrointestinal: Negative. Musculoskeletal: Negative for myalgias. Skin: Negative. Neurological: Negative. Endocrine: Endocrine negative Vital Signs BP (!) 139/92 (BP Location: Left arm, Patient Position: Sitting, BP CUFF SIZE: Adult Large) | Pulse82 | Temp 36.7 C (98.1 F) (Oral) | Resp 18 | Wt 232 lb 6.4 oz (105.4 kg) | LMP 01/26/2020 |BMI 38.67 kg/m Physical Exam Constitutional: She is oriented to person, place, and time. She appears well- developed and well-nourished. HENT: Head: Normocephalic. Right Ear: Hearing, tympanic membrane, external ear and ear canal normal. Left Ear: There is drainage and tenderness. There is mastoid tenderness. Tympanic membrane is erythematous. Nose: Nose normal. Right sinus exhibits no maxillary sinus tenderness and no frontal sinus tenderness. Left sinus exhibits no maxillary sinus tenderness and no frontal sinus tenderness. Mouth/Throat: Uvula is midline, oropharynx is clear and moist and mucous membranes are normal. No oropharyngeal exudate, posterior oropharyngeal edema, posterior oropharyngeal erythema or tonsillar abscesses. No tonsillar exudate. Eyes: Conjunctivae and lids are normal. Neck: Normal range of motion. [...] Nursing note and vitals reviewed. Assessment/Plan 1. Otitis media: Continue Augmentin as prescribed. Referral made to ENT for continued care due to recurrence. Avoid putting anything into the ears, not even to clean it. RTC if worse or new onset of symptoms prior to appointment to ENT, after which continue care with ENT. Plan of care, desired health behaviors, goals, and medication discussed with patient. Education resources provided and reviewed with AVS. Patient/guardian/family verbalized understanding & agrees to plan of care. This visit did not involve counseling and coordination that comprised more than 50% of the visit time. If applicable, the [facility] database was accessed to review any controlled substance prescription claims data. The [employer] prescription claims data in [employer] was reviewed to assess patient compliance with the medication treatment plan. Nasima Samuel - 02/10/2020 2:20 PM Zoeylinda Haney is a 35 year old female comes to clinic independent in ambulation for COUGH SORE THROAT LEFT EAR PAIN. Pt comes alone . Pt in NAD w/ pain reported 09/05. Pt preferred language is Sinhala. Pt. denies fall in last 12 months. Allergies and medications reviewed and updated. [facility] [address] [place] [address] [address] Nasima Rosen 02/10/2020 2:29 PM documented in this encounter Plan of Treatment Date Type Specialty Care Team Description 02/14/2020 Ancillary Visit Audiology Umm Fitch, PHD [address] [facility] [id number] [place] [address] [phone] 2, [employer] 02/14/2020 Ancillary Visit Audiology Vestibular, [employer] 02/19/2020 Office Visit Otolaryngology Cathy Aguilar MD [address] [place] [address] [phone] 02/26/2020 Nurse Visit Obstetrics & Gynecology Nurse, [facility] 02/28/2020 Office Visit Otolaryngology Jorge L Willett MD [address] [place] [address] [phone] 03/05/2020 Office Visit Obstetrics & Gynecology Claritza Velez MD [address] [place] [phone] 06/11/2020 Cpr Ambulance Driver Visit Endocrinology Diabetes & LamonteRegla, RD Metabolism [address] [place] [address] [phone] Health Maintenance Due Date Last Done Comments [...] filedocumented in this encounter Visit Diagnoses Diagnosis Recurrent acute suppurative otitis media without spontaneous rupture of left tympanic membrane - Primary Acute suppurative otitis media without spontaneous rupture of eardrum documented in this encounter Additional Health Concerns Infection Noted Time Resolved Time Contact - ESBL 10/31/2018 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 ST[facility] xxxxxxxxx 2020-Prese Medicaid HEALTHCARE COMM PLUS nt PLAN - MANAGED MEDICAID documented as of this encounter Advance Directives Name Relationship Healthcare Agent Communication Relationship Miranda Morales Sibling Primary healthcare agent Michelet Brower Significant Other First alternate [phone] healthcare agent (Mobile) "
--- OUTSIDE RECORDS SUMMARY | 2020-02-13 15:18 | XMS REPORT | Summary of Care ---
:1985 Author Organization [facility] Address [address] [place] [address] Care Team Providers Name Role Phone Klarissa Delgado Insurance Hmo Karoline Alvarez Primary Care Provider Reason for Visit Reason Comments Sore Throat Fever Cough Body Aches Encounter Details Date Type Department Care Team Description 02/12/2020 Office Visit [facility] Family Shante Tello, LILIANA [address] [place] [address] Acute URI (Primary Dx); [facility] Pob[facility], Acute Care Clinic Cough; [address] [place] [phone] Allergies Active Allergy Reactions Severity Noted Date Comments Ibuprofen Rash 04/19/2017 documented as of this encounter (statuses as of 02/12/2020) Medications Medication Sig Dispensed Refills Start End Status Date Date sod zkbtg-dywoia-vmrvib Use 1 Bottle in each 1 Each [...] trigger azelastine 137 mcg (0.1 Use 1 [place] in each 30 mL 4 Active %) [...] Overview: Added automatically from request for surgery [id number] Epigastric pain 07/25/2019 Overview: Added automatically from request for surgery [id number] Type 2 diabetes mellitus with complication, without [...] mcg (0.1 %) nasal spray Use 1 [place] in each nostril 2 (two) times daily. [...] for Abdominal pain. 30 capsule 0 sod hgwgd-mhuwhh-wjvjit bottle (NEILMED SINUS RINSE COMPLETE) pkdv Use [...] N/A 08/05/2019 Surgeon: Jeanette Pedro MD; Location: [facility] [place] Social History Socioeconomic History Marital status: Spouse [...] file Gets together: Not on file Attends baptist service: Not on file Active member of [...] Ancillary Visit Audiology Umm Fitch, PHD [address] [facility] [id number] [place] [phone] 2, [employer] 02/14/2020 Ancillary Visit Audiology Vestibular, [employer] 02/19/2020 Office Visit Otolaryngology Cathy Aguilar MD [address] [place], [place] [address] 02/26/2020 Nurse Visit Obstetrics & Gynecology Nurse, [facility] 02/28/2020 Office Visit Otolaryngology Jorge L Willett MD [address] [place], [place] [address] 03/05/2020 Office Visit Obstetrics & Gynecology Claritza Velez MD [address] [place] [phone] 06/11/2020 Payroll And Benefits Assistant Visit Endocrinology Diabetes & Lamonte, ANTONIO Arauz Metabolism [address] [place], [place] [phone] Health Maintenance Due Date Last Done Comments [...] Time Contact - ESBL 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 [id number] 2019-Prese Medicare Adv HEALTHCARE - HEALTHCARE DUAL nt HMO MANAGED COMPLETE HMO MEDICARE [facility] ST[facility] xxxxxxxxx 2020-Prese Medicaid HEALTHCARE COMM PLUS nt PLAN - MANAGED MEDICAID documented as of this encounter Advance Directives Name Relationship Healthcare Agent Communication Relationship Miranda Morales Sibling Primary healthcare agent Michelet Brower Significant Other First alternate [phone] healthcare agent (Mobile)
--- OUTSIDE RECORDS SUMMARY | 2020-02-13 15:18 | XMS REPORT | Summary of Care ---
:1985 Author Organization [facility] - Health Address [address] [place] [address] Care Team Providers Name Role Phone Klarissa Delgado Insurance Hmo Karoline Alvarez INSPECTOR SET UP AND LAY OUT Primary Care Provider Reason for Referral (Routine) Status Reason Specialty Diagnoses / Referred By Referred To Procedures Contact Contact New Request Otolaryngology Diagnoses Recurrent acute suppurative otitis media without spontaneous rupture of left tympanic membrane Karoline Alvarez, Procedures CONSULT/REFERRAL ENT INSPECTOR SET UP AND LAY OUT [address] [address] Reason for Visit Reason Comments Sore Throat x 1 day Cough Ear Pain 09/05 Encounter Details Date Type Department Care Team Description 02/10/2020 Office Visit [facility] Family Karoline Alvarez INSPECTOR SET UP AND LAY OUT Recurrent acute Medicine - [place] [address] [address] [facility] suppurative otitis [address] media without [place], [place] [address] spontaneous rupture [address] [place], [place] of left tympanic [phone] [address] membrane (Primary Dx) [phone] Allergies Active Allergy Reactions Severity Noted Date Comments Ibuprofen Rash 04/19/2017 documented as of this encounter (statuses as of 02/10/2020) Medications Medication Sig Dispensed Refills Start End Status Date Date sod gqyiu-cbtkez-cllztg Use 1 Bottle in each 1 Each [...] trigger azelastine 137 mcg (0.1 Use 1 [place] in each 30 mL 4 Active %) [...] Overview: Added automatically from request for surgery [id number] Epigastric pain 07/25/2019 Overview: Added automatically from request for surgery [id number] Type 2 diabetes mellitus with complication, without [...] mcg (0.1 %) nasal spray Use 1 [place] in each nostril 2 (two) times daily. [...] for Abdominal pain. 30 capsule 0 sod nvryt-mqeqcs-sxopdw bottle (NEILMED SINUS RINSE COMPLETE) pkdv Use [...] N/A 08/05/2019 Surgeon: Jeanette Pedro MD; Location: [facility] Social History Socioeconomic History Marital status: Spouse [...] file Gets together: Not on file Attends sabianism service: Not on file Active member of [...] visit time. If applicable, the [facility] database was accessed to review any controlled substance prescription claims data. The [employer] prescription claims data in [employer] was reviewed to assess patient compliance with the medication treatment plan. Nasima Samuel - 02/10/2020 2:20 PM Zoeylinda Haney is a 35 year old female comes to clinic independent in ambulation for COUGH SORE THROAT LEFT EAR PAIN. Pt comes alone . Pt in NAD w/ pain reported 09/05. Pt preferred language is Mohawk. Pt. denies fall in last 12 months. Allergies and medications reviewed and updated. [facility] [address] [place] [address] [address] Nasima Rosen 02/10/2020 2:29 PM documented in this encounter Plan of Treatment Date Type Specialty Care Team Description 02/14/2020 Ancillary Visit Audiology Umm Fitch, PHD [address] [facility] [id number] [place] [address] [phone] 2, [employer] 02/14/2020 Ancillary Visit Audiology Vestibular, [employer] 02/19/2020 Office Visit Otolaryngology Cathy Aguilar MD [address] [place] [address] [phone] 02/26/2020 Nurse Visit Obstetrics & Gynecology Nurse, [facility] 02/28/2020 Office Visit Otolaryngology Jorge L Willett MD [address] [facility] [place] [address] [phone] 03/05/2020 Office Visit Obstetrics & Gynecology Claritza Velez MD [address] [place] [phone] 06/11/2020 Unit Aide Tech Visit Endocrinology Diabetes & LamonteRegla, RD Metabolism [address] [place] [address] [phone] Health Maintenance Due Date Last Done Comments [...] Time Contact - 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
--- NOTE | 2020-02-13 16:18 | EDPHYS ---
Physician Documentation [facility] Name: Mckenna Haney Age: 35 yrs Sex: Female : 1985 Arrival Date: 02/13/2020 Time: 14:55 Bed 24 Private MD: ANTONIO Physician Roe Cody HPI: 02/12 16:10 This 35 yrs old Female presents to ER via Ambulatory with complaints of Cough, ps1 Chest Pain. 16:10 patient states that she has cough and subjective fever. Patient was seen and evaluated ps1 for similar symptoms this week at [facility]. Had strep and flu negative. Walking well. Concerned about community COVID testing. No respiratory distress. Does not meet COVID CDC testing criteria at this time. . Historical: - Allergies: 15:09 Ibuprofen (Hives); ll1 - PMHx: 15:09 High Cholesterol; Hypertension; Diabetes - NIDDM; Ovarian cyst; ll1 - PSHx: 15:09 Cholecystectomy; ll1 - Immunization history:: Flu vaccine is not up to date. - Social history:: Smoking status: unknown. ROS: 16:10 Eyes: Negative for injury, pain, redness, and discharge, ENT: Negative for injury, ps1 pain, and discharge, Cardiovascular: Negative for chest pain, palpitations, and edema, Abdomen/GI: Negative for abdominal pain, nausea, vomiting, diarrhea, and constipation, Back: Negative for injury and pain, MS/Extremity: Negative for injury and deformity, Skin: Negative for injury, rash, and discoloration, Neuro: Negative for headache, weakness, numbness, tingling, and seizure. 16:10 Constitutional: Positive for fever. 16:10 Respiratory: Positive for cough. Exam: 16:10 Constitutional: This is a well developed, well nourished patient who is awake, alert, ps1 and in no acute distress. Head/Face: Normocephalic, atraumatic. Eyes: Pupils equal round and reactive to light, extra-ocular motions intact. Lids and lashes normal. Conjunctiva and sclera are non-icteric and not injected. 16:10 Chest/axilla: Inspection: normal. 16:10 Cardiovascular: Rate: normal, auscultation deferred. . 16:10 Respiratory: the patient does not display signs of respiratory distress, Respirations: normal, Breath sounds: deferred. Speaking in full sentences. . 16:10 Abdomen/GI: Inspection: abdomen appears normal, Bowel sounds: deferred. Vital Signs: 15:06 BP 145 / 97; Pulse 91; Resp 18; Temp 98.6; Pulse Ox 99% ; Weight 106.59 kg; Height 5 ll1 ft. 4 in. (162.56 cm); Pain 9/10; 15:06 Body Mass Index 40.34 (106.59 kg, 162.56 cm) ll1 MDM: 16:10 Differential Diagnosis: Bronchitis Influenza Upper Respiratory Infection Viral Syndrome ps1 Other COVID-19. Data reviewed: vital signs, nurses notes. 16:17 Patient medically screened. ps1 Administered Medications: No medications were administered Disposition: 02/13/20 16:17 Discharged to Home. Impression: Bronchitis, COVID-19, no testing performed. . - Condition is Stable. - Discharge Instructions: Acute Bronchitis, Adult. - Medication Reconciliation Form, Thank You Letter, Antibiotic Education, Prescription Opioid Use form. - Follow up: Private Physician; When: As needed; Reason: Recheck today's complaints, Continuance of care, Re-evaluation by your physician. Follow up: Emergency Department; When: As needed; Reason: Fever > 102 F, Worsening of condition. - Problem is an ongoing problem. - Symptoms are unchanged. Signatures: Roe Cody MD MD ps1 Jayda Feliz RN RN ls4 Marisol Fox RN RN ll1 Corrections: (The following items were deleted from the chart) 16:40 16:17 02/13/2020 16:17 Discharged to Home. Impression: Bronchitis; COVID-19, no testing ls4 performed. . Condition is Stable. Forms are Medication Reconciliation Form, Thank You Letter, Antibiotic Education, Prescription Opioid Use. Follow up: Private Physician; When: As needed; Reason: Recheck today's complaints, Continuance of care, Re-evaluation by your physician. Follow up: Emergency Department; When: As needed; Reason: Fever > 102 F, Worsening of condition. Problem is an ongoing problem. Symptoms are unchanged. ps1
--- NOTE | 2020-02-13 16:18 | ER ---
Nurse's Notes [facility] Name: Mckenna Haney Age: 35 yrs Sex: Female : 1985 Arrival Date: 02/13/2020 Time: 14:55 Bed 24 Private MD: Diagnosis: Bronchitis;COVID-19, no testing performed. Presentation: 02/12 15:06 Chief complaint: Patient states: Cough, fever, CP for 2 days. had cough and was ll1 given antibiotics. No N/V/D. Coronavirus screen: The patient has NOT traveled to a country currently being monitored by the CDC within the last 14 days. Ebola Screen: Patient denies travel to an Ebola-affected area in the 21 days before illness onset. Risk Assessment: Do you want to hurt yourself or someone else? Patient reports no desire to harm self or others. 15:06 Method Of Arrival: Ambulatory ll1 15:06 Acuity: LILO 3 ll1 16:15 Initial Sepsis Screen: Does the patient meet any 2 criteria? No. Patient's initial ls4 sepsis screen is negative. Does the patient have a suspected source of infection? No. Patient's initial sepsis screen is negative. Triage Assessment: 16:15 General: Appears in no apparent distress. comfortable, Behavior is calm, cooperative. ls4 Historical: - Allergies: 15:09 Ibuprofen (Hives); ll1 - PMHx: 15:09 High Cholesterol; Hypertension; Diabetes - NIDDM; Ovarian cyst; ll1 - PSHx: 15:09 Cholecystectomy; ll1 - Immunization history:: Flu vaccine is not up to date. - Social history:: Smoking status: unknown. Screenin:12 Abuse screen: Denies threats or abuse. Denies injuries from another. Nutritional ls4 screening: No deficits noted. Tuberculosis screening: No symptoms or risk factors identified. Fall Risk None identified. Assessment: 16:13 General: Appears in no apparent distress. comfortable, Behavior is calm, cooperative. ls4 Pain: Denies pain. Cardiovascular: No deficits noted. Reports pain in thorax with cough. no pain at this time. Respiratory: Airway is patent Respiratory effort is even, unlabored, Respiratory pattern is regular. Vital Signs: 15:06 BP 145 / 97; Pulse 91; Resp 18; Temp 98.6; Pulse Ox 99% ; Weight 106.59 kg; Height 5 ll1 ft. 4 in. (162.56 cm); Pain 9/10; 15:06 Body Mass Index 40.34 (106.59 kg, 162.56 cm) ll1 ED Course: 14:55 Patient arrived in ED. mr 15:08 Triage completed. ll1 15:09 Arm band placed on. ll1 15:24 Roe Cody MD is Attending Physician. ps1 15:45 Jayda Feliz, RN is Primary Nurse. ls4 16:12 Patient has correct armband on for positive identification. Bed in low position. Call ls4 light in reach. Side rails up X 1. Cardiac monitoring not applicable on this patient. 16:12 No provider procedures requiring assistance completed. Patient did not have IV access ls4 during this emergency room visit. Patient maintains SpO2 saturation greater than 95% on room air. Administered Medications: No medications were administered Outcome: 16:17 Discharge ordered by . ps1 16:40 Patient left the ED. ls4 16:45 Condition: stable ls4 16:45 Discharged to home ambulatory, with family. ls4 16:45 Discharge instructions given to patient, family, Instructed on discharge instructions, follow up and referral plans. Demonstrated understanding of instructions, work note given Signatures: James Graciela mr Roe Cody MD MD ps1 Jayda Feliz, RN RN ls4 Marisol Fox RN RN ll1
== END 2020-02-13 16:40 | disposition home or self-care (01) ==
CPT/HCPCS: 99284

== ENCOUNTER 2020-02-18 10:57 | Emergency (ER) | payer OTHER ==
--- OUTSIDE RECORDS SUMMARY | 2020-02-18 10:59 | XMS REPORT ---
:1985 [facility] Address [address] [place] [address] [address] Care Team Providers Name Role Phone Unavailable [...]
--- OUTSIDE RECORDS SUMMARY | 2020-02-18 11:00 | XMS REPORT ---
[...] Start Date End Date Status Dosage Vernsharitahayde [facility] 62930019967 100 MG Orally Active 1 tablet Once a day Results No Known Results Summary Purpose eClinicalWorks Submission
--- OUTSIDE RECORDS SUMMARY | 2020-02-18 11:00 | XMS REPORT ---
[...] End Status Dosage System Date Date Loratadine [facility] 21310201779 10 MG Orally Active 1 tablet Once a day Vitamin D [facility] 35964113964 2000 UNIT Active 1 tablet Orally Once a day Meclizine HCl ND 59444897035 25 MG Orally April Active 1 tablet as Twice daily 07, needed for 2019 dizziness Pioglitazone HCl ND 32845703527 15 MG Orally May Active 1 tablet Once a day for , diabetes 2019 Dicyclomine HCl [facility] 76967545031 20 MG Orally May Active 1 tablet as Four times a 09, 19, needed for day 2018 2019 stomach pain Atorvastatin ND 64461875337 10 MG Orally Active 1 tablet Calcium Once a day Lisinopril [facility] 26172500988 5 MG Orally Active 1 tablet Once a day Amoxicillin [facility] 43922899023 500 MG Orally Active 1 capsule Twice a day Alogliptin [facility] 10799696444 25 MG Orally April Active 1 tablet Benzoate Once a day for 28, diabetes 2018 GlipiZIDE XL [facility] 52340694873 5 MG Orally Active 1 tablet with Once a day food GlipiZIDE [facility] 65733603304 5 MG Orally May Active 1 tablet Once a day 2018 Triamcinolone [facility] 48098017241 0.1 % April Active 1 application Acetonide Externally , to affected Twice a day 2019 areas BusPIRone HCl [facility] 22689963425 7.5 MG Orally April 18, Active 1 tablet as Twice a day 2018 needed for anxiety Orphenadrine [facility] [address]-93 100 MG Orally Active as directed Citrate ER Results No Known Results Summary Purpose eClinicalWorks Submission
--- OUTSIDE RECORDS SUMMARY | 2020-02-18 11:00 | XMS REPORT ---
[...] Dosage System Date Date BusPIRone HCl [facility] 67890621427 7.5 MG Orally April 18, Active 1 tablet as Twice a day 2019 needed for anxiety Vitamin D ND 60869243415 2000 UNIT Active 1 tablet Orally Once a day Atorvastatin [facility] 65572681988 10 MG Orally Active 1 tablet Calcium Once a day Orphenadrine [facility] [address]-19 100 MG Orally Active as directed Citrate ER Meclizine HCl [facility] 09167688468 25 MG Orally April Active 1 tablet as Twice daily 07, needed for 2019 dizziness Lisinopril [facility] 32665821639 5 MG Orally Active 1 tablet Once a day Pioglitazone HCl [facility] 43042973742 15 MG Orally May Active 1 tablet Once a day for , diabetes 2019 Amoxicillin [facility] 86229490687 500 MG Orally Active 1 capsule Twice a day Loratadine [facility] 98776160819 10 MG Orally Active 1 tablet Once a day GlipiZIDE XL [facility] 17873438960 5 MG Orally Active 1 tablet with Once a day food Triamcinolone [facility] 18304237613 0.1 % April Active 1 application Acetonide Externally 28, to affected Twice a day 2019 areas Alogliptin [facility] 11637309104 25 MG Orally April Active 1 tablet Benzoate Once a day for , diabetes 2019 Results No Known Results Summary Purpose eClinicalWorks Submission
--- OUTSIDE RECORDS SUMMARY | 2020-02-18 11:00 | XMS REPORT ---
[...] Status Dosage System Date Date Atorvastatin ND 01823661375 10 MG Orally Active 1 tablet Calcium Once a day Lisinopril ND 08268849631 5 MG Orally Active 1 tablet Once a day Dicyclomine HCl ND 80815474633 20 MG Orally May Active 1 tablet as Four times a 09, 19, needed for day 2018 2018 stomach pain Loratadine ND 77931185059 10 MG Orally Active 1 tablet Once a day Triamcinolone [facility] 99379139534 0.1 % April Active 1 application Acetonide Externally 28, to affected Twice a day 2019 areas GlipiZIDE XL [facility] 51621345302 5 MG Orally Active 1 tablet with Once a day food Pioglitazone HCl [facility] 81112096176 15 MG Orally May Active 1 tablet Once a day for , diabetes 2019 Amoxicillin [facility] 39411667298 500 MG Orally Active 1 capsule Twice a day Orphenadrine [facility] [address]-31 100 MG Orally Active as directed Citrate ER Alogliptin [facility] 14851816146 25 MG Orally April Active 1 tablet Benzoate Once a day for , diabetes 2019 Vitamin D [facility] 68858553299 2000 UNIT Active 1 tablet Orally Once a day BusPIRone HCl [facility] 75213269170 7.5 MG Orally April 18, Active 1 tablet as Twice a day 2019 needed for anxiety Meclizine HCl [facility] 34683475332 25 MG Orally April Active 1 tablet as Twice daily , needed for 2019 dizziness Results No Known Results Summary Purpose eClinicalWorks Submission
--- OUTSIDE RECORDS SUMMARY | 2020-02-18 11:00 | XMS REPORT ---
[...] End Status Dosage System Date Date Atorvastatin [facility] 91651270981 10 MG Orally Active 1 tablet Calcium Once a day Meclizine HCl [facility] 33152625002 25 MG Orally April Active 1 tablet as bid prn 07, needed 2019 Alogliptin [facility] 89058963843 25 MG Orally April Active 1 tablet Benzoate Once a day for 28, diabetes 2019 Amoxicillin [facility] 27806621235 500 MG Orally Active 1 capsule Twice a day Vitamin D [facility] 31399775348 2000 UNIT Active 1 tablet Orally Once a day Orphenadrine [facility] [address]-95 100 MG Orally Active as directed Citrate ER Lisinopril [facility] 65664838537 5 MG Orally Active 1 tablet Once a day GlipiZIDE XL [facility] 92985137529 5 MG Orally Active 1 tablet with Once a day food Januvia [facility] 61830907315 100 MG Orally Inactive 1 tablet Once a day Loratadine [facility] 27472451944 10 MG Orally Active 1 tablet Once a day BusPIRone HCl [facility] 81541977394 7.5 MG Orally April 18, Active 1 tablet as Twice a day 2018 needed for anxiety Triamcinolone [facility] 04956139148 0.1 % April Active 1 application Acetonide , to affected Twice a day 2019 areas Results No Known Results Summary Purpose eClinicalWorks Submission
--- OUTSIDE RECORDS SUMMARY | 2020-02-18 11:01 | XMS REPORT ---
[...] Dosage System Date Date Dicyclomine HCl [facility] 91072899674 20 MG Orally May Active 1 tablet as Four times a 09, 19, needed for day 2018 2018 stomach pain Triamcinolone [facility] 31115638182 0.1 % April Active 1 application Acetonide Externally 28, to affected Twice a day 2019 areas Loratadine [facility] 66950524840 10 MG Orally Active 1 tablet Once a day Lisinopril [facility] 76721233964 5 MG Orally Active 1 tablet Once a day Farxiga ND 83384489989 5mg Orally May Active 1 tablet Once daily , 2018 Lactulose [facility] 33068507430 10 GM/15ML May Active 15-30 ml Orally Once to , twice a day as 2018 2018 needed for constipation BusPIRone HCl [facility] 01185140681 7.5 MG Orally April 18, Active 1 tablet as Twice a day 2018 needed for anxiety Vitamin D [facility] 98202579169 2000 UNIT Active 1 tablet Orally Once a day Atorvastatin [facility] 14162996328 10 MG Orally Active 1 tablet Calcium Once a day Orphenadrine [facility] [address]-26 100 MG Orally Active as directed Citrate ER Alogliptin [facility] 27033796540 25 MG Orally April Active 1 tablet Benzoate Once a day for , diabetes 2019 Pioglitazone HCl [facility] 09050041987 15 MG Orally May Active 1 tablet Once a day for 05, diabetes 2019 GlipiZIDE XL [facility] 06188612303 5 MG Orally Active 1 tablet with Once a day food Amoxicillin [facility] 37277646473 500 MG Orally Active 1 capsule Twice a day Meclizine HCl [facility] 40685630958 25 MG Orally April Active 1 tablet as Twice daily , needed for 2019 dizziness Results No Known Results Summary Purpose eClinicalWorks Submission
--- OUTSIDE RECORDS SUMMARY | 2020-02-18 11:02 | XMS REPORT ---
[...] End Status Dosage System Date Date Atorvastatin [facility] 12636233297 10 MG Orally Active 1 tablet Calcium Once a day Orphenadrine [facility] [address]-34 100 MG Orally Active as directed Citrate ER Amoxicillin [facility] 52008723259 500 MG Orally Active 1 capsule Twice a day Meclizine HCl [facility] 06632513795 25 MG Orally April Active 1 tablet as Twice daily , needed for 2019 dizziness BusPIRone HCl [facility] 62572909074 7.5 MG Orally April 18, Active 1 tablet as Twice a day 2018 needed for anxiety Loratadine [facility] 89663740949 10 MG Orally Active 1 tablet Once a day GlipiZIDE XL [facility] 56625255599 5 MG Orally Active 1 tablet with Once a day food Farxiga [facility] 42328592442 5mg Orally May Active 1 tablet Once daily 2018 2019 Pioglitazone HCl [facility] 36259459845 15 MG Orally May Active 1 tablet Once a day for 05, diabetes [address] [facility] 58300946369 25 MG Orally April Active 1 tablet Benzoate Once a day for 28, diabetes [address] [facility] 69565120461 0.1 % April Active 1 application Acetonide Externally 28, to affected Twice a day 2019 areas [address] [facility] 03754457932 5 MG Orally Active 1 tablet Once a day Vitamin D [facility] 82947954601 2000 UNIT Active 1 tablet Orally Once a day BELVIQ [facility] 57370783095 10 MG orally Jun 28Sep Active 1 tablet Twice a day 2018 Results No Known Results Summary Purpose eClinicalWorks Submission
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
--- OUTSIDE RECORDS SUMMARY | 2020-02-18 11:26 | XMS REPORT | Summary of Care ---
:1985 Author Organization [facility] - [facility] Address [address] [place] [address] Care Team Providers Name Role Phone Klarissa Delgado Flores Insurance Hmo Karoline Alvarez Primary Care Provider Reason for Visit Reason Comments DYSURIA Encounter Details Date Type Department Care Team Description 02/17/2020 Telemedicine Visit [facility] Family Alex Faust Yeast infection Medicine - Diogenes Mcclure MD (Primary Dx) [address] [place] [phone] Allergies Active Allergy Reactions Severity Noted Date Comments Ibuprofen Rash 04/19/2017 documented as of this encounter (statuses as of 02/17/2020) Medications Medication Sig Dispensed Refills Start End Status Date Date sod iqcap-pfliwj-uggivw Use 1 Bottle in each 1 Each [...] trigger azelastine 137 mcg (0.1 Use 1 [place] in each 30 mL 4 Active %) [...] Vertigo times daily as needed for Dizziness. benzonatate (TESSALON Take 1 capsule by 30 capsule 0 Active PERLES) 100 mg mouth 3 (three) 0 020 capsuleIndications: times daily for 10 Acute URI, Cough, days. Exposure to viral disease promethazine-dextrometh Take 5 mL by mouth 240 mL 1 Active orphan 6.25-15 mg/5 mL every 4 (four) hours 0 020 syrupIndications: Cough as needed for Cough for up to 14 days. fluconazole (DIFLUCAN) Take 1 tablet by 1 tablet 0 Active 150 mg mouth once now for 1 0 020 tabletIndications: dose. Yeast infection documented as of this encounter (statuses as of 02/17/2020) Active Problems Problem Noted Date Morbid obesity with body mass index of 40.0-49.9 01/02/2020 Indigestion 07/25/2019 Overview: Added automatically from request for surgery [id number] Epigastric pain 07/25/2019 Overview: Added automatically from request for surgery [id number] Type 2 diabetes mellitus with complication, without long-term current use of insulin Neck pain, acute 06/13/2019 Acute bilateral low back pain with bilateral sciatica 06/13/2019 Allergic sinusitis 06/13/2019 Secondary oligomenorrhea 05/10/2019 Overview: 05/10/19 s/p EMB - histology revealed a benign endometrial polyp. Cyclic progesterone started. Abdominal pain, left lower quadrant 05/10/2019 Obesity (BMI 30-39.9) 04/27/2017 documented as of this encounter (statuses as of 02/17/2020) Immunizations Name Administration Dates Next Due Influenza Virus Vaccine Quad .5 mL IM 6+ MO 09/09/2019 Pneumococcal Polysaccharide, PPSV23 (PNEUMOVAX) 06/13/2019 documented as of this encounter Social History Tobacco Use Types Packs/Day Years Used Date Former Smoker Smokeless Tobacco: Never Used Alcohol Use [...] Signs Not on filedocumented in this encounter Progress Notes Alex Faust MD - 02/17/2020 11:15 AM CDT TELEHEALTH NOTE Verbal consent obtained from Patient: Mckenna Haney for telehealth services provided below. Communication with patient was conducted via Telephone. Location of Patient: Home Location of Provider: Office Date of Service: 02/17/2020 Chief Complaint: dysuria HPI: URINARY TRACT INFECTION Patient presents to clinic today with complaints of dysuria. This is a new problem. The current episode started in the past 7 days. The pain is mild. Patient describes pain as burning. There has been no fever. Patient has feeling like there are little cuts inside vagina; just finished taking antiobiotics yesterday Past Medical History: Diagnosis Date Anxiety Genital herpes type 1 GERD (gastroesophageal reflux disease) HTN (hypertension) Hypercholesteremia Seasonal allergies Trichimoniasis Type 2 diabetes mellitus Allergies Allergen Reactions Ibuprofen Rash Family History Problem Relation Age of Onset Diabetes Mother High cholesterol Mother Hypertension Mother Diabetes Father Hypertension Father Diabetes Maternal Grandmother High cholesterol Maternal Grandmother Diabetes Maternal Grandfather High cholesterol Maternal Grandfather Diabetes Paternal Grandmother High cholesterol Paternal Grandmother Diabetes Paternal Grandfather High cholesterol Paternal Grandfather MEDICATIONS: Current Outpatient Medications Medication Sig Dispense Refill promethazine-dextromethorphan 6.25-15 mg/5 mL syrup Take 5 mL by mouth every 4 (four) hours as needed for Cough for up to 14 days. 240 mL 1 benzonatate (TESSALON PERLES) 100 mg capsule Take 1 capsule by mouth 3 ( three) times daily for 10 days. 30 capsule 0 meclizine 25 mg tablet Take 1 [...] mcg (0.1 %) nasal spray Use 1 [place] in each nostril 2 (two) times daily. [...] for Abdominal pain. 30 capsule 0 sod kabaa-eewqhu-vehtdp bottle (NEILMED SINUS RINSE COMPLETE) pkdv Use 1 Bottle in each nostril 2 (two) times daily. Use in hot shower 1 hour before bedtime 1 Each 0 No current facility-administered medications for this visit. ROS Review of Systems Neurological: Positive for dizziness. TELEHEALTH EXAM Patient is alert and communicative on the phone with no distress noted. ASSESSMENT/ PLAN 1. Yeast infection fluconazole (DIFLUCAN) 150 mg tablet After visit summary (AVS ) documentation will be available through [email or web address] for this encounter. A total of 10 minutes was spent on the Telephone with the patient. Alex Faust MD documented in this encounter Plan of Treatment Date Type Specialty Care Team Description 02/24/2020 Ancillary Visit Audiology 2, [facility] [employer] [facility] 02/26/2020 Nurse Visit Obstetrics & Gynecology Nurse, [facility] 02/26/2020 Office Visit Otolaryngology Cathy Aguilar MD [address] [place] [address] [phone] 02/28/2020 Office Visit Otolaryngology Jorge L Willett MD [address] [place] [address] [place], [place] [phone] 03/05/2020 Office Visit Obstetrics & Gynecology Claritza Velez MD [address] [place] [phone] 06/11/2020 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 Aircraft 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 Visit Endocrinology Diabetes & LamonteRegla alvarez RD Metabolism [address] [place], [place] [phone] Health Maintenance Due Date Last Done Comments [...] filedocumented in this encounter Visit Diagnoses Diagnosis Yeast infection - Primary Other and unspecified mycoses documented in this encounter Additional Health Concerns Infection Noted Time Resolved Time Contact - ESBL 10/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
--- OUTSIDE RECORDS SUMMARY | 2020-02-18 11:26 | XMS REPORT | Summary of Care ---
:1985 Author Organization [facility] Address [address] [place] [address] Care Team Providers Name Role Phone Klarissa Delgado Flores Insurance Hmo Karoline Alvarez Primary Care Provider Reason for Visit Reason Comments ELEVATED BLOOD PRESSURE x this MA Hyperglycemia x this AM Encounter Details Date Type Department Care Team Description 02/15/2020 Urgent Care [facility] Unknown, Attending Viral illness (Primary Dx); Urgent Care Escobar Montgomery MD [address] [place] [address] [id number] Cough; [address], Nasal congestion; [address] Headache due to viral infection; [place], [place] Hyperglycemia [phone] Allergies Active Allergy Reactions Severity Noted Date Comments Ibuprofen Rash 04/19/2017 documented as of this encounter (statuses as of 02/15/2020) Medications Medication Sig Dispensed Refills Start End Status Date Date sod lnfzy-fwgziy-ycyvyd Use 1 Bottle in each 1 Each [...] trigger azelastine 137 mcg (0.1 Use 1 Arnold in each 30 mL 4 Active %) [...] for Cough for up to 14 days. documented as of this encounter (statuses as of 02/15/2020) Active Problems Problem Noted Date Morbid obesity with body mass index of 40.0-49.9 01/02/2020 Indigestion 07/25/2019 Overview: Added automatically from request for surgery [id number] Epigastric pain 07/25/2019 Overview: Added automatically from request for surgery [id number] Type 2 diabetes mellitus with complication, without long-term current use of insulin Neck pain, acute 06/13/2019 Acute bilateral low back pain with bilateral sciatica 06/13/2019 Allergic sinusitis 06/13/2019 Secondary oligomenorrhea 05/10/2019 Overview: 05/10/19 s/p EMB - histology revealed a benign endometrial polyp. Cyclic progesterone started. Abdominal pain, left lower quadrant 05/10/2019 Obesity (BMI 30-39.9) 04/27/2017 documented as of this encounter (statuses as of 02/15/2020) Immunizations Name Administration Dates Next Due Influenza [...] Sign Reading Time Taken Comments Blood Pressure 128/79 02/15/2020 1:10 PM CDT Pulse 102 02/15/2020 1:04 PM CDT Temperature 37.2 C (98.9 F) 02/15/2020 1:04 PM CDT Respiratory Rate 20 02/15/2020 1:04 PM CDT Oxygen Saturation 100% 02/15/2020 1:04 PM CDT Inhaled Oxygen Concentration - - Weight 106.6 kg (235 lb) 02/15/2020 1:04 PM CDT Height 162.6 cm (5' 4") 02/15/2020 1:04 PM CDT Body Mass Index 40.34 02/15/2020 1:04 PM CDT documented in this encounter Patient Instructions Patient InstructionsEscobar Montgomery MD - 02/15/2020 1:00 PM CDT1. Viral illness Viral Illness -- Consistent with current outbreaks -- lots of them right now. This is not Covid-19 No focus suspicious for a bacterial process. Encourage fluids. Eat as desired. Any meals missed while ill will be made up when well again. 2. Cough - promethazine-dextromethorphan 6.25-15 mg/5 mL syrup; Take 5 mL by mouth every 4 (four) hours as needed for Cough for up to 14 days. Dispense: 240 mL; Refill : 1 Cough Guaifenesin 100mg / Dextromethorphan 10mL in 5mL (Robitussin DM): 10mL every 4 hours as needed for cough and mucous flow. Many other brands. Recommend those with only guaifenesin & dextromethorphan. For use during the day. Dark Chocolate helps with cough (xanthenes). Research proven in [place] but did not specify how many boxes to eat. Honey 2 teaspoons proven effective in children. Dosage for older kids etc not established. Use as needed. Promethazine/DextroMethorphan When awake at night or when being sleepy from the medicine is all right and safe. Do not use at the same time as Guaifenesin/Dextromethorphan. 3. Nasal congestion Nasal Congestion (Stopped Up): Oxymetazoline HCl (Afrin, 4-Way, & more) 0.05 % nasal spray, 1 spray each nostril at bedtime. Limit to 5 nights. If use twice a day then limit to 3 days. Difficult to sleep when cannot breathe through your nose, so recommend at night. Runny Nose: Support your body's cleaning up: Nasal Saline Arnold: 2 sprays each nostril every 2 hours while awake. Frederick, Bandera Mist, many brands. May refill free with CDC recipe 1/4 teaspoon salt, 1/4 teaspoon baking soda, 8 ounces of water. 4. Headache due to viral infection Acetaminophen (Tylenol) 500mg Take 2 tabs twice a day regularly and up to 4 times a day as needed for comfort. Promethazine may help with your headache and if you get nauseated. 5. Hyperglycemia - POCT GLUCOSE(AGE >30DAYS) 166 -- much better. See Ms. Alvarez if follow up needed. Return here as needed. documented in this encounter Progress Notes Shilpa Joaquin RN - 02/15/2020 1:00 PM CDTThe patient has given verbal informed consent to have finger stick for POCT glucose. Finger stick performed by clean technique on the finger. Slight pressure and a bandage/dressing were applied to the site. The patient tolerated the procedure well. Accurate development and interpretation of all internal controls performed per protocol. Provider notified of results. Escobar Kate MD - 02/15/2020 1 :00 PM CDT Cc: Chief Complaint Patient presents with ELEVATED BLOOD PRESSURE x this MA Hyperglycemia x this AM Mckenna Haney is a 35 year old female. HPI Monday sore throat, runny stuffy nose, cough, Monday yesterday frontal headache with blurred vision. Slept well This morning awoke with frontal headache high pressue 150/100, 1130h 149/90, FSBG 340 Sent here by Emergency Department for blood pressure Now better. Tx: APAP Medications Outpatient Medications Prior to Visit Medication Sig Dispense Refill benzonatate (TESSALON PERLES) 100 mg capsule Take 1 capsule by mouth 3 ( three) times daily for 10 days. 30 capsule 0 amoxicillin-clavulanate 875-125 mg per tablet Take 1 [...] mcg (0.1 %) nasal spray Use 1 Arnold in each nostril 2 (two) times daily. [...] for Abdominal pain. 30 capsule 0 sod bhfor-cdqmps-fsyevn bottle (NEILMED SINUS RINSE COMPLETE) pkdv Use 1 Bottle in each nostril 2 (two) times daily. Use in hot shower 1 hour before bedtime 1 Each 0 No facility-administered medications prior to visit. Review of Systems Constitutional: Denies fever, chills Skin: Denies: Rash Allergy/Immunology: rhinorrhea Eyes: Denies: visual loss or blurred vision ENT: nasal congestion, sore throat Denies: Earache, Respiratory: cough Denies: dyspnea, Gastrointestinal: Denies: abdominal pain, nausea, vomiting, diarrhea Genitourinary: Denies: dysuria, urgency, frequency Musculoskeletal:achy and pectoralis pain Neuro: frontal headache Denies: vision change, dizziness, lightheaded Past Medical History: No date: Anxiety No date: Genital herpes Comment: type 1 No date: GERD (gastroesophageal reflux disease) No date: HTN (hypertension) No date: Hypercholesteremia No date: Seasonal allergies No date: Trichimoniasis No date: Type 2 diabetes mellitus Past Surgical History: No date: CHOLECYSTECTOMY 08/05/2019: ESOPHAGOGASTRODUODENOSCOPY; N/A Comment: Surgeon: Jeanette Pedro MD; Location: [facility] [place] Review of patient's family history indicates: Problem: Diabetes Relation: Mother Age of Onset: (Not Specified) Problem: High cholesterol Relation: Mother Age of Onset: (Not Specified) Problem: Hypertension Relation: Mother Age of Onset: (Not Specified) Problem: Diabetes Relation: Father Age of Onset: (Not Specified) Problem: Hypertension Relation: Father Age of Onset: (Not Specified) Problem: Diabetes Relation: Maternal Grandmother Age of Onset: (Not Specified) Problem: High cholesterol Relation: Maternal Grandmother Age of Onset: (Not Specified) Problem: Diabetes Relation: Maternal Grandfather Age of Onset: (Not Specified) Problem: High cholesterol Relation: Maternal Grandfather Age of Onset: (Not Specified) Problem: Diabetes Relation: Paternal Grandmother Age of Onset: (Not Specified) Problem: High cholesterol Relation: Paternal Grandmother Age of Onset: (Not Specified) Problem: Diabetes Relation: Paternal Grandfather Age of Onset: (Not Specified) Problem: High cholesterol Relation: Paternal Grandfather Age of Onset: (Not Specified) Social History Socioeconomic History Marital status: Spouse [...] Not on file Tobacco Use Smoking status: Former Smoker Smokeless tobacco: Never Used Substance and Sexual Activity Alcohol use: Never Frequency: Never Drug use: Never Sexual activity: Yes Partners: Male control/protection: None, Condom Lifestyle Physical activity: Days per week: Not on file Minutes per session: Not on file Stress: Not on file Relationships Social connections: Talks on phone: Not on file Gets together: Not on file Attends restoration service: Not on file Active member of club or organization: Not on file Attends meetings of clubs or organizations: Not on file Relationship status: Not on file Intimate partner violence: Fear of current or ex partner: Not on file Emotionally abused: Not on file Physically abused: Not on file Forced sexual activity: Not on file Other Topics Concerns: Not on file Social History Narrative Pt denies physical and sexual abuse. Lives in trailer with . Vital Signs BP 128/79 | Pulse 102 | Temp 37.2 C (98.9 F) (Oral) | Resp 20 | Ht 5' 4 " (1.626 m) | Wt 235lb (106.6 kg) | LMP 01/26/2020 | SpO2 100% | BMI 40.34 kg/m Physical Exam Head: Inspection normal. Face diffuse 1+ tender Eyes: PERRL, conjunctiva/sclera normal ENT: moist mucous membranes, palate normal, pharynx normal, nose sl noise Neck: right 1+ carotid tender max at mid upper carotid, no masses or swelling Respiratory/Chest: breath sounds normal, no wheezing Cardiovascular: regular rate and rhythm, heart sounds normal GI: abdomen soft, non-tender, MS: bilateral pectoralis 1+ tender, Legs: non-tender Back: non-tender, no CVA tenderness Skin: no rash. Normal color and turgor. Neurologic: alert, speech normal, gait normal Psychiatric: Interactive, Mood normal Assessment/Plan 1. Viral illness Viral Illness -- Consistent with current outbreaks -- lots of them right now. This is not Covid-19 No focus suspicious for a bacterial process. Encourage fluids. Eat as desired. Any meals missed while ill will be made up when well again. 2. Cough - promethazine-dextromethorphan 6.25-15 mg/5 mL syrup; Take 5 mL by mouth every 4 (four) hours as needed for Cough for up to 14 days. Dispense: 240 mL; Refill : 1 Cough Guaifenesin 100mg / Dextromethorphan 10mL in 5mL (Robitussin DM): 10mL every 4 hours as needed for cough and mucous flow. Many other brands. Recommend those with only guaifenesin & dextromethorphan. For use during the day. Dark Chocolate helps with cough (xanthenes). Research proven in [place] but did not specify how many boxes to eat. Honey 2 teaspoons proven effective in children. Dosage for older kids etc not established. Use as needed. Promethazine/DextroMethorphan When awake at night or when being sleepy from the medicine is all right and safe. Do not use at the same time as Guaifenesin/Dextromethorphan. 3. Nasal congestion Nasal Congestion (Stopped Up): Oxymetazoline HCl (Afrin, 4-Way, & more) 0.05 % nasal spray, 1 spray each nostril at bedtime. Limit to 5 nights. If use twice a day then limit to 3 days. Difficult to sleep when cannot breathe through your nose, so recommend at night. Runny Nose: Support your body's cleaning up: Nasal Saline Arnold: 2 sprays each nostril every 2 hours while awake. Frederick, Bandera Mist, many brands. May refill free with Conmio recipe 1/4 teaspoon salt, 1/4 teaspoon baking soda, 8 ounces of water. 4. Headache due to viral infection Acetaminophen (Tylenol) 500mg Take 2 tabs twice a day regularly and up to 4 times a day as needed for comfort. Promethazine may help with your headache and if you get nauseated. 5. Hyperglycemia - POCT GLUCOSE(AGE >30DAYS) 166 -- much better. See Ms. Alvarez if follow up needed. Return here as needed. Shilpa Figueredo RN - 02/15/2020 1:00 PM CDJarett Haney is a 35 y/o female complaining of elevated BP x today and elevated fasting BS x this AM. Patient reports BP 150/100 and 160/90 at home this AM and fasting BS of 350 this AM. Pt reports headache 9/10, dizziness, left sided axilla pain, and weakness at this time starting this AM. Patient states she went to [facility] but was sent to . Patient reports history of htn (which she is no longer medicated for), DMII, and former smoker. Patient AAOx4, ambulatory, eupneic, skin pink/warm/dry, no acute distress noted. documented in this encounter Plan of Treatment Date Type Specialty Care Team Description 02/24/2020 Ancillary Visit Audiology 2, [facility] [employer] 02/26/2020 Nurse Visit Obstetrics & Gynecology Nurse, [facility] Women's Health 02/26/2020 Office Visit Otolaryngology Cathy Aguilar MD [address] [place] [address] [phone] 02/28/2020 Office Visit Otolaryngology Jorge L Willett MD [address] [place] [address] [phone] 03/05/2020 Office Visit Obstetrics & Gynecology Claritza Velez MD [address] [place] [phone] 06/11/2020 Tipple Greaser Visit Endocrinology Diabetes & LamonteRegla, RD Metabolism [address] [place] [address] [phone] Health Maintenance Due Date Last Done Comments [...] Name Priority Date/Time Associated Diagnosis Comments POCT GLUCOSE(AGE Routine 02/15/2020 1:38 Hyperglycemia Results for this >30DAYS) PM CDT procedure are in the results section. documented in this encounter Results POCT GLUCOSE(AGE >30DAYS) (02/15/2020 1:38 PM CDT) POCT Glu (age>30days) 166 (A) 70 - 110 mg/dL Specimen Blood - CAPILLARY Narrative Performed At accurate development and interpretation of all internal controls documented in this encounter Visit Diagnoses Diagnosis Viral illness - Primary Unspecified viral infection, in conditions classified elsewhere and of unspecified site Cough Nasal congestion Other diseases of nasal cavity and sinuses Headache due to viral infection Hyperglycemia Other abnormal glucose documented in this encounter Additional Health Concerns Infection Noted Time Resolved Time Contact - ESBL 10/31/2018 4:18 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 documented as of this encounter Insurance Payer Benefit Plan / Subscriber ID Effective Phone Address Type Group [facility] [id number] 2019-Prese Medicare Adv HEALTHCARE - HEALTHCARE DUAL nt HMO MANAGED COMPLETE HMO MEDICARE [facility] STAR xxxxxxxxx 2020-Prese Medicaid HEALTHCARE COMM PLUS nt PLAN - MANAGED MEDICAID documented as of this encounter Advance Directives Name Relationship Healthcare Agent Communication Relationship Miranda Morales Sibling Primary healthcare agent Michelet Brower Significant Other First alternate [phone] healthcare agent (Mobile)
--- OUTSIDE RECORDS SUMMARY | 2020-02-18 11:26 | XMS REPORT | Summary of Care ---
:1985 Author Organization [facility] Address [address] [place] [address] Care Team Providers Name Role Phone Klarissa Delgado Flores Insurance Hmo Karoline Alvarez Primary Care Provider Reason for Visit Reason Comments Appointment Encounter Details Date Type Department Care Team Description 02/16/2020 Telephone [facility] Family Medicine Alex Faust MD Appointment - [address] [facility] [place] [address] [place] [address] Allergies Active Allergy Reactions Severity Noted Date Comments Ibuprofen Rash 04/19/2017 documented as of this encounter (statuses as of 02/16/2020) Medications Medication Sig Dispensed Refills Start End Status Date Date sod tyfxn-ugnhwb-pqtdqa Use 1 Bottle in each 1 Each [...] trigger azelastine 137 mcg (0.1 Use 1 [place] in each 30 mL 4 Active %) [...] as of this encounter (statuses as of 02/16/2020) Active Problems Problem Noted Date Morbid obesity with body mass index of 40.0-49.9 01/02/2020 Indigestion 07/25/2019 Overview: Added automatically from request for surgery [id number] Epigastric pain 07/25/2019 Overview: Added automatically from request for surgery [id number] Type 2 diabetes mellitus with complication, without long-term current use of insulin Neck pain, acute 06/13/2019 Acute bilateral low back pain with bilateral sciatica 06/13/2019 Allergic sinusitis 06/13/2019 Secondary oligomenorrhea 05/10/2019 Overview: 05/10/19 s/p EMB - histology revealed a benign endometrial polyp. Cyclic progesterone started. Abdominal pain, left lower quadrant 05/10/2019 Obesity (BMI 30-39.9) 04/27/2017 documented as of this encounter (statuses as of 02/16/2020) Immunizations Name Administration Dates Next Due Influenza [...] Treatment Date Type Specialty Care Team Description 02/17/2020 Telemedicine Visit Family Medicine Alex Faust MD [address] [place] [address] [place] [phone] 02/24/2020 Ancillary Visit Audiology , [facility] [employer] [facility] 02/26/2020 Nurse Visit Obstetrics & Gynecology Nurse, [facility] Women's Health 02/26/2020 Office Visit Otolaryngology Ctahy Aguilar MD [address] [place] [address] [phone] 02/28/2020 Office Visit Otolaryngology Jorge L Willett MD [address] [place], [place] [address] 03/05/2020 Office Visit Obstetrics & Gynecology Claritza Velez MD [address] [place] [phone] 06/11/2020 Magnet Maker Visit Endocrinology Diabetes & LamonteRegla, ANTONIO Metabolism [address] [place] [address] [phone] Health Maintenance Due Date Last Done Comments [...] Time Contact - ESBL 10/31/2018 4:18 PM 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 2ND SHIFT documented as of this encounter Insurance Payer Benefit Plan / Subscriber ID Effective Phone Address Type Group [facility] [id number] 2019-Prese Medicare Adv HEALTHCARE - HEALTHCARE DUAL nt HMO MANAGED COMPLETE HMO MEDICARE [facility] STAR xxxxxxxxx 2020-Prese Medicaid HEALTHCARE COMM PLUS nt PLAN - MANAGED MEDICAID documented as of this encounter Advance Directives Name Relationship Healthcare Agent Communication Relationship Miranda Morales Sibling Primary healthcare agent Michelet Brower Significant Other First alternate [phone] healthcare agent (Mobile)
--- OUTSIDE RECORDS SUMMARY | 2020-02-18 11:27 | XMS REPORT | Summary of Care ---
:1985 Author Organization [facility] - Health Address [address] [place] [address] Care Team Providers Name Role Phone DannyMohantaylor Tanner Insurance Hmo Karoline Alvarez Primary Care Provider Reason for Visit Reason Comments URINARY TRACT INFECTION Auth/Cert Status Reason Specialty Diagnoses / Referred By Referred To Procedures Contact Contact [facility] [address] [place] [address] [place] [address] Encounter Details Date Type Department Care Team Description 02/17/2020 Emergency [facility] Isa Peng, GABI [address] [place] [address] [place], [place] [phone] Allergies Active Allergy Reactions Severity Noted Date Comments Ibuprofen Rash 04/19/2017 documented as of this encounter (statuses as of 02/17/2020) Medications Medication Sig Dispensed Refills Start End Status Date Date sod kzyqh-sxzxrw-myajzt Use 1 Bottle in each 1 Each [...] trigger azelastine 137 mcg (0.1 Use 1 [place] in each 30 mL 4 Active %) [...] Overview: Added automatically from request for surgery [id number] Epigastric pain 07/25/2019 Overview: Added automatically from request for surgery [id number] Type 2 diabetes mellitus with complication, without [...] Sign Reading Time Taken Comments Blood Pressure 176/93 02/17/2020 12:05 PM CDT Pulse 99 02/17/2020 12:05 PM CDT Temperature 37.5 C (99.5 F) 02/17/2020 12:05 PM CDT Respiratory Rate 20 02/17/2020 12:05 PM CDT Oxygen Saturation 98% 02/17/2020 12:05 PM CDT Inhaled Oxygen Concentration - - Weight 106.6 kg (235 lb) 02/17/2020 12:05 PM CDT Height - - Body Mass Index 40.34 02/15/2020 1:04 PM CDT documented in this encounter Plan of Treatment Date Type Specialty Care Team Description 02/24/2020 Ancillary Visit Audiology 2, [facility] [employer] [facility] 02/26/2020 Nurse Visit Obstetrics & Gynecology Nurse, [facility] Women's Health 02/26/2020 Office Visit Otolaryngology Cathy Aguilar MD [address] [place] [address] [phone] 02/28/2020 Office Visit Otolaryngology Jorge L Willett MD [address] [place] [address] [phone] 03/05/2020 Office Visit Obstetrics & Gynecology Claritza Velez MD [address] [place] [phone] 06/11/2020 Payroll Clerk Visit Endocrinology Diabetes & LamonteRegla alvarez, RD Metabolism [address] [place] [address] [phone] Health Maintenance Due Date Last Done Comments [...] Date/Time Associated Diagnosis Comments CONSENT/REFUSAL FOR Routine 02/17/2020 12:00 PM CDT DIAGNOSIS AND TREATMENT documented in this encounter Results Not on filedocumented in this encounter Additional Health Concerns Infection Noted Time Resolved Time Contact - ESBL 10/31/2018 4:18 PM 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
--- NOTE | 2020-02-18 11:31 | EDPHYS ---
Physician Documentation [facility] Name: Mckenna Haney Age: 35 yrs Sex: Female : 1985 Arrival Date: 02/18/2020 Time: 11:02 Bed 13 Private MD: ED Physician Prince Weber HPI: 02/17 11:27 This 35 yrs old Female presents to ER via Unassigned with complaints of rn Urinary Problem, vaginal pain. 11:27 The patient presents with urinary symptoms, dysuria. Onset: The symptoms/episode rn began/occurred 1 week(s) ago. Modifying factors: The symptoms are alleviated by nothing, the symptoms are aggravated by urinating. Severity of symptoms: At their worst the symptoms were mild, in the emergency department the symptoms are unchanged. The patient has not experienced similar symptoms in the past. Reports burning when urinates and skin inside labia tender to touch, no trauma, no fever, feels different than UTI in past. Has had herpes in past. . 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 - Family history:: not pertinent. - Social history:: Smoking status: Patient/guardian denies using. - Hospitalizations: : No recent hospitalization is reported. ROS: 11:27 Constitutional: Negative for fever, chills, and weight loss, Abdomen/GI: Negative for rn abdominal pain, nausea, vomiting, diarrhea, and constipation, : + dysuria and vaginal pain Exam: :27 Abdomen/GI: soft, non-tender Pelvic Exam: Normal external genitalia. Inner labia rn with erythema and small mucosal irritation, no bleeding, no pustules or vesicles, no abscess. Vital Signs: 11:05 BP 125 / 80; Pulse 88; Resp 94; Temp 98.2; Pulse Ox 95% ; Weight 106.59 kg; Height 5 wh ft. 4 in. (162.56 cm); 11:05 Body Mass Index 40.34 (106.59 kg, 162.56 cm) wh MDM: 11:04 Patient medically screened. rn 11:27 Differential diagnosis: urinary tract infection, vaginosis. Data reviewed: vital signs, rn nurses notes, lab test result(s), and as a result, I will discharge patient. Counseling: I had a detailed discussion with the patient and/or guardian regarding: the historical points, exam findings, and any diagnostic results supporting the discharge/admit diagnosis, lab results, the need for outpatient follow up, to return to the emergency department if symptoms worsen or persist or if there are any questions or concerns that arise at home. Special discussion: I discussed with the patient/guardian in detail that at this point there is no indication for admission to the hospital. It is understood, however, that if the symptoms persist or worsen the patient needs to return immediately for re-evaluation. 02/17 11:16 Order name: Urine Microscopic Only rn 02/17 11:23 Order name: Urine Dipstick--Ancillary (enter results) bd 02/17 11:16 Order name: Urine Dipstick-Ancillary (obtain specimen); Complete Time: 11:26 rn 02/17 11:16 Order name: Urine Test (obtain specimen); Complete Time: 11: rn 02/17 11:23 Order name: Urine --Ancillary (enter results) bd Administered Medications: No medications were administered Disposition: 02/18/20 11:30 Discharged to Home. Impression: Vaginitis, vulvitis and vulvovaginitis in diseases classified elsewhere. - Condition is Stable. - Discharge Instructions: Vaginitis. - Prescriptions for Clotrimazole 1 % Vaginal Cream - insert 1 applicatorful by VAGINAL route At bedtime for 7 days; 7 Syringe. Diflucan 150 mg Oral Tablet - take 1 tablet by ORAL route once daily for 3 days; 3 tablet. - Medication Reconciliation Form, Thank You Letter, Antibiotic Education, Prescription Opioid Use form. - Follow up: Private Physician; When: As needed; Reason: Recheck today's complaints, Re-evaluation by your physician. - Problem is new. - Symptoms are unchanged. Signatures: Dispatcher [employer] EDPrince Gonzalez MD MD rn Habalo, Winsy wh Corrections: (The following items were deleted from the chart) 11:46 11:30 02/18/2020 11:30 Discharged to Home. Impression: Vaginitis, vulvitis and wh vulvovaginitis in diseases classified elsewhere. Condition is Stable. Discharge Instructions: Vaginitis. Prescriptions for Clotrimazole 1 % Vaginal Cream - insert 1 applicatorful by VAGINAL route At bedtime for 7 days; 7 Syringe, Diflucan 150 mg Oral Tablet - take 1 tablet by ORAL route once daily for 3 days; 3 tablet. and Forms are Medication Reconciliation Form, Thank You Letter, Antibiotic Education, Prescription Opioid Use. Follow up: Private Physician; When: As needed; Reason: Recheck today's complaints, Re-evaluation by your physician. Problem is new. Symptoms are unchanged. rn
[2020-02-18 11:36] LABS: Urine Blood NEGATIVE (NEG); Urine Glucose NEGATIVE (NEG); Urine Protein NEGATIVE (NEG); Urine Specific Gravity >1.030 (1.005-1.030); Urine pH 5.5 (5.0-7.0)
[2020-02-18 11:45] LABS: Urine Bacteria <20 /HPF (<20); Urine Culture Reflex Order NOT NEEDED; Urine Mucus SLIGHT /HPF (NONE SEEN); Urine RBC <5 /HPF (NONE SEEN)
--- NOTE | 2020-02-18 11:48 | ER ---
Nurse's Notes [facility] Name: Mckenna Haney Age: 35 yrs Sex: Female : 1985 Arrival Date: 02/18/2020 Time: 11:02 Bed 13 Private MD: Diagnosis: Vaginitis, vulvitis and vulvovaginitis in diseases classified elsewhere Presentation: 02/17 11:05 Chief complaint: Patient states: C/O burning sensation when urinating. Denies fever or wh any other associated symptoms. Coronavirus screen: Patient denies fever greater than 100.4F, cough, shortness of breath, or difficulty breathing. Ebola Screen: Patient negative for fever greater than or equal to 101.5 degrees Fahrenheit, and additional compatible Ebola Virus Disease symptoms Patient denies exposure to infectious person. Initial Sepsis Screen: Does the patient meet any 2 criteria? No. Patient's initial sepsis screen is negative. Does the patient have a suspected source of infection? Yes: Dysuria/Frequency/Urgency/UTI. Risk Assessment: Do you want to hurt yourself or someone else? Patient reports no desire to harm self or others. 11:05 Method Of Arrival: Ambulatory 11:05 Acuity: LILO 4 11:33 Onset of symptoms was February 18, 2020. 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 - Family history:: not pertinent. - Social history:: Smoking status: Patient/guardian denies using. - Hospitalizations: : No recent hospitalization is reported. Screenin:32 Abuse screen: Denies threats or abuse. Denies injuries from another. Nutritional wh screening: No deficits noted. Tuberculosis screening: No symptoms or risk factors identified. Fall Risk None identified. Assessment: 11:32 General: Appears in no apparent distress. Behavior is calm, cooperative, appropriate wh for age. Pain: Complains of pain in pain when urinating. Neuro: Level of Consciousness is awake, alert, obeys commands, Oriented to person, place, time, situation, Appropriate for age. Cardiovascular: Capillary refill < 3 seconds. Respiratory: Airway is patent Respiratory effort is even, unlabored, Respiratory pattern is regular, symmetrical. GI: Abdomen is flat, non-distended, Abd is soft and non tender X 4 quads. : Reports burning with urination. EENT: No signs and/or symptoms were reported regarding the EENT system. Derm: Skin is intact, is healthy with good turgor, Skin is pink, warm \T\ dry. normal. Musculoskeletal: Circulation, motion, and sensation intact. Vital Signs: 11:05 BP 125 / 80; Pulse 88; Resp 94; Temp 98.2; Pulse Ox 95% ; Weight 106.59 kg; Height 5 wh ft. 4 in. (162.56 cm); 11:05 Body Mass Index 40.34 (106.59 kg, 162.56 cm) ED Course: 11:02 Patient arrived in ED. mr 11:04 Prince Weber MD is Attending Physician. rn 11:07 Dane Cabezas is Primary Nurse. 11:32 Triage completed. 11:33 Arm band placed on right wrist. 11:33 Patient has correct armband on for positive identification. Placed in gown. Bed in low wh position. Call light in reach. Side rails up X 1. Pulse ox on. NIBP on. 11:45 No provider procedures requiring assistance completed. 11:46 Patient did not have IV access during this emergency room visit. Administered Medications: No medications were administered Outcome: 11:30 Discharge ordered by . rn 11:46 Discharged to home ambulatory. 11:46 Condition: stable 11:46 Discharge instructions given to patient, Instructed on discharge instructions, follow up and referral plans. medication usage, POC Demonstrated understanding of instructions, follow-up care, medications, POC Prescriptions given X 2. 11:46 Patient left the ED. wh Signatures: Graciela Ramirez Roman, MD MD rn Habalo, Winsy
[2020-02-18 12:01] VITALS: BP 125/80; TEMP 98.2; O2SAT 95
== END 2020-02-18 11:46 | disposition home or self-care (01) ==
LOC: ER 10:57
DX: R30.0 Dysuria (principal); N77.1 Vaginitis, vulvitis and vulvovaginitis in diseases classified elsewhere; I10 Essential (primary) hypertension; E11.9 Type 2 diabetes mellitus without complications; E78.00 Pure hypercholesterolemia, unspecified; Z88.6 Allergy status to analgesic agent
CPT/HCPCS: 81003; 81015; 81025; 99283

== ENCOUNTER 2020-03-17 12:52 | Emergency (ER) | payer OTHER ==
--- OUTSIDE RECORDS SUMMARY | 2020-03-17 12:55 | XMS REPORT ---
:1985 Author Organization eClinicalWorks Care Team Providers Name Role Phone Danny Klarissa Provider Role Unavailable Allergies, Adverse Reactions, Alerts Substance Reaction Event Type N.K.D.A. Info Not Available Non Drug Allergy Problems Problem Type Condition Code Onset Dates Condition Statu s Assessment Uncontrolled type 2 diabetes E11.65 Active [...] headache R51 Active Problem Essential hypertension I10 Activ e Problem Asthma J45.909 Active Problem Seasonal allergies J30.2 Active Problem Diabetes E11.9 Active Problem Difficulty sleeping G47.9 Active Problem Dietary surveillance and counseling Z71.3 Active Problem Anxiety F41.9 Active Problem Right upper quadrant pain R10.11 Ac tive Medications Medication Code Code Instructions Start End Status Dosage System Date Date Atorvastatin [facility] 61934058663 10 MG Orally Active 1 tablet Calcium Once a day Lisinopril ND 26784162443 5 MG Orally Active 1 tab let Once a day Dicyclomine HCl ND 96218133496 20 MG Orally May Active 1 tablet as Four times a 09, 19, needed for day 2018 2018 stomach pain Loratadine [facility] 80330636011 10 MG Orally Active 1 ta blet Once a day Triamcinolone [facility] 39987003634 0.1 % April Active 1 appl ication Acetonide Externally 28, to affected Twice a day 2019 areas GlipiZIDE XL [facility] 73007280926 5 MG Orally Active 1 t ablet with Once a day food Pioglitazone HCl [facility] 97952730658 15 MG Orally May Active 1 tablet Once a day for , diabetes 2019 Amoxicillin [facility] 52366184635 500 MG Orally Active 1 capsule Twice a day Orphenadrine [facility] [address]-99 100 MG Orally Active as directed Citrate ER Alogliptin [facility] 41761262011 25 MG Orally April Active 1 ta blet Benzoate Once a day for , diabetes 2019 Vitamin D [facility] 99540902069 2000 UNIT Active 1 tablet Orally Once a day BusPIRone HCl [facility] 06595241571 7.5 MG Orally April 18, Active 1 tablet as Twice a day 2019 needed for anxiety Meclizine HCl [facility] 75044666837 25 MG Orally April Active 1 tablet as Twice daily , needed for 2019 dizziness Results No Known Results Summary Purpose eClinicalWorks Submission
--- OUTSIDE RECORDS SUMMARY | 2020-03-17 12:55 | XMS REPORT ---
:1985 Author Organization eClinicalWorks Care Team Providers Name Role Phone Danny Klarissa Provider Role Unavailable Allergies, Adverse Reactions, Alerts Substance Reaction Event Type N.K.D.A. Info Not Available Non Drug Allergy Problems Problem Type Condition Code Onset Dates Condition Statu s Problem Anxiety F41.9 Active Problem Right upper quadrant pain R10.11 Ac tive Problem Difficulty sleeping G47.9 Active Problem Dizziness [...] problem J34.9 Active Problem Essential hypertension I10 Activ e Assessment Dizziness R42 Active Problem Hypercholesterolemia E78.00 Active Problem Asthma J45.909 Active Medications Medication Code Code Instructions Start End Status Dosage System Date Date Atorvastatin [facility] 80129773096 10 MG Orally Active 1 tablet Calcium Once a day Meclizine HCl ND 85646531939 25 MG Orally April Active 1 tablet as bid prn 07, needed 2019 Alogliptin ND 80032688849 25 MG Orally April Active 1 ta blet Benzoate Once a day for 28, diabetes 2019 Amoxicillin ND 03406516084 500 MG Orally Active 1 capsule Twice a day Vitamin D [facility] 63183673868 2000 UNIT Active 1 tablet Orally Once a day Orphenadrine [facility] [address]-93 100 MG Orally Active as directed Citrate ER Lisinopril ND 78294021106 5 MG Orally Active 1 tab let Once a day GlipiZIDE XL [facility] 56984859168 5 MG Orally Active 1 t ablet with Once a day food Januvia [facility] 97696195999 100 MG Orally Inactive 1 tab let Once a day Loratadine [facility] 83801643606 10 MG Orally Active 1 ta blet Once a day BusPIRone HCl [facility] 76839898742 7.5 MG Orally April 18, Active 1 tablet as Twice a day 2018 needed for anxiety Triamcinolone [facility] 28951649806 0.1 % April Active 1 appl ication Acetonide Externally 28, to affected Twice a day 2019 areas Results No Known Results Summary Purpose eClinicalWorks Submission
--- OUTSIDE RECORDS SUMMARY | 2020-03-17 12:55 | XMS REPORT ---
:1985 Author Organization eClinicalWorks Care Team Providers Name Role Phone Danny Klarissa Provider Role Unavailable Allergies No Known Allergies Problems Problem Type Condition Code Onset Dates Condition Statu s Problem Diabetes E11.9 Active Problem Asthma J45.909 Active Problem Essential hypertension I10 Activ e Problem Uterine bleeding N93.9 Active Problem Left ovarian cyst N83.202 Active Problem Obesity (BMI 30-39.9) E66.9 Active Problem Difficulty sleeping G47.9 Active Problem Anxiety F41.9 Active Problem Dietary surveillance and counseling Z71.3 Active Problem Right upper quadrant pain R10.11 Ac tive Problem Ingrown toenail of right foot L60.0 [...] Instructions Start Date End Date Status Dosage Alex [facility] 88376651514 100 MG Orally Active 1 tabl et Once a day Results No Known Results Summary Purpose eClinicalWorks Submission
--- OUTSIDE RECORDS SUMMARY | 2020-03-17 12:55 | XMS REPORT ---
:1985 Author Organization [facility] t Address [address] [place] [address] Care Team Providers Name Role Phone Unavailable Unavailable Unavailable Payers Payer Name Policy Type Policy Number Effective Date Expiration D ate Problems Condition Condition Condition Status Onset Resolution Last Treatin g Comments Name Details Category Date Date Treatment Clinician Date Diabetes Diabetes Problem Active Asthma Asthma Problem Active High blood High blood Problem Active pressure pressure Uterine Uterine Problem Active bleeding bleeding Left Left Problem Active ovarian ovarian cyst cyst Obesity Obesity Problem Active (BMI (BMI 30-39.9) 30-39.9) Difficulty Difficulty Problem Active sleeping sleeping Anxiety Anxiety Problem Active Dietary Dietary Problem Active surveillanc surveillanc e and e and counseling counseling Right upper Right upper Problem Active quadrant quadrant pain pain Ingrown Ingrown Problem Active toenail of toenail of right foot right foot Sinus Sinus Problem Active problem problem Hypercholes Hypercholes Problem Active terolemia terolemia Uncontrolle Uncontrolle Problem Active d type 2 d type 2 diabetes diabetes mellitus mellitus with with hyperglycem hyperglycem ia ia Seasonal Seasonal Problem Active allergies allergies Migraine Migraine Problem Active Dizziness Dizziness Problem Active Depression Depression Problem Active screening screening Rash and Rash and Problem Active nonspecific nonspecific skin skin eruption eruption Allergic Allergic Problem Active rhinitis, rhinitis, unspecified unspecified seasonality seasonality , , unspecified unspecified trigger trigger Frequent Frequent Problem Active headaches headaches Epigastric Epigastric Problem Active pain pain Generalized Generalized Problem Active weakness weakness Shortness Shortness Problem Active of breath of breath Pain of Pain of Problem Active upper upper abdomen abdomen Constipatio Constipatio Problem Active n, n, unspecified unspecified constipatio constipatio n type n type Morbid Morbid Problem Active obesity obesity Allergies, Adverse Reactions, Alerts Allergy Allergy Status Severity Reaction(s) Onset Inactive Treating C omments Name Type Date Date Clinician ibuprofen DA Active U 2018-11 00:00:0 0 ibuprofen DA Active U 2016-12 00:00:0 0 Medications Ordered Filled Start Stop Current Ordering Indication Dosage Frequency Signature Comments Components Medication Medication Date Date Medication? Clinician (SIG) Name Name LYNN BAILEY 2018- 2019- No Klarissa 1 tablet 8- 11-30 [place] 00:00: 00:00 00 :00 Farxiga Farxiga 2019-0 2019- No Klarissa 1 tablet 7-13 08-12 [place] 00:00: 00:00 00 :00 Pioglitazon Pioglitazon 2019-0 Yes Klarissa 1 table t e HCl e HCl 7-05 [place] 00:00: 00 Alogliptin Alogliptin 2018-0 Yes Klarissa 1 tablet Benzoate Benzoate 6-28 [place] 00:00: 00 Triamcinolo Triamcinolo 2019-0 Yes Klarissa 1 ne ne 6-28 [place] applicatio Acetonide Acetonide 00:00: n to 00 affected areas Meclizine Meclizine 2019-0 Yes Klarissa 1 tablet HCl HCl 6-07 [place] as needed 00:00: for 00 dizziness BusPIRone BusPIRone 2018-0 Yes Klarissa 1 tablet HCl HCl 5-23 [place] as needed 00:00: for 00 anxiety Atorvastati Atorvastati Yes Klarissa 1 tablet n Calcium n Calcium [place] Amoxicillin Amoxicillin Yes Klarissa 1 capsul e [place] Vitamin D Vitamin D Yes Klarissa 1 tablet [place] Orphenadrin Orphenadrin Yes Klarissa as e Citrate e Citrate [facility] directed ER ER Lisinopril Lisinopril Yes Klarissa 1 tablet [place] GlipiZIDE GlipiZIDE Yes Klarissa 1 tablet XL XL [place] with food Loratadine Loratadine Yes Klarissa 1 tablet [place] Encounters Start End Encounter Admission Attending Care Care Encounter Date/Time Date/Time Type Type Clinicians Facility Department ID 2019-07-01 2019-07-01 Outpatient Abbie Leiva 2 [id number] 18:18:00 18:18:00 [facility] Medicine 2019-06-28 2019-06-28 Outpatient Abbie Cohent 2 [id number] 10:00:00 10:00:00 [facility] 2019-06-19 2019-06-19 [id number] 15:21:00 15:21:00 [facility] 2019-06-11 2019-06-11 [facility] [id number] 08:10:00 08:10:00 [facility] 2019-06-10 2019-06-10 [id number] 12:16:00 12:16:00 [facility] 2019-06-07 2019-06-07 [id number] 15:40:00 15:40:00 [facility] 2019-06-06 2019-06-06 [facility] [id number] 08:48:00 08:48:00 [facility] 2019-06-04 2019-06-04 [facility] [id number] 16:20:00 16:20:00 [facility] Medicine 2019-05-31 2019-05-31 [facility] [id number] 10:20:00 10:20:00 [facility] 2019-05-24 2019-05-24 [facility] [id number] 11:52:00 11:52:00 [facility] 2019-05-24 2019-05-24 [id number] 11:00:00 11:00:00 [facility] Medicine 2019-05-13 2019-05-13 [id number] 08:12:00 08:12:00 [facility] Medicine 2019-05-02 2019-05-02 [id number] 09:40:00 09:40:00 [facility]
--- OUTSIDE RECORDS SUMMARY | 2020-03-17 12:55 | XMS REPORT ---
[...] Status Dosage System Date Date BusPIRone HCl [facility] 34938435622 7.5 MG Orally April 18, Active 1 tablet as Twice a day 2019 needed for anxiety Vitamin D [facility] 54841131379 2000 UNIT Active 1 tablet Orally Once a day Atorvastatin ND 49072674074 10 MG Orally Active 1 tablet Calcium Once a day Orphenadrine [facility] [address]-09 100 MG Orally Active as directed Citrate ER Meclizine HCl [facility] 55002578835 25 MG Orally April Active 1 tablet as Twice daily 07, needed for 2019 dizziness Lisinopril ND 57487300535 5 MG Orally Active 1 tab let Once a day Pioglitazone HCl [facility] 87274741516 15 MG Orally May Active 1 tablet Once a day for , diabetes 2019 Amoxicillin [facility] 72262517670 500 MG Orally Active 1 capsule Twice a day Loratadine [facility] 84435842550 10 MG Orally Active 1 ta blet Once a day GlipiZIDE XL [facility] 31703913013 5 MG Orally Active 1 t ablet with Once a day food Triamcinolone [facility] 50006995914 0.1 % April Active 1 appl ication Acetonide Externally 28, to affected Twice a day 2019 areas Alogliptin [facility] 50477109632 25 MG Orally April Active 1 ta blet Benzoate Once a day for , diabetes 2019 Results No Known Results Summary Purpose eClinicalWorks Submission
--- OUTSIDE RECORDS SUMMARY | 2020-03-17 12:55 | XMS REPORT ---
:1985 Author Organization eClinicalWorks Care Team Providers Name Role Phone Klarissa Delgado Provider Role Unavailable Allergies No Known Allergies Problems Problem Type Condition Code Onset Dates Condition Statu s Problem Ingrown toenail of right foot L60.0 [...] End Status Dosage System Date Date Loratadine ND 75697500027 10 MG Orally Active 1 ta blet Once a day Vitamin D ND 47564378582 2000 UNIT Active 1 tablet Orally Once a day Meclizine HCl ND 18518036375 25 MG Orally April Active 1 tablet as Twice daily 07, needed for 2019 dizziness Pioglitazone HCl ND 66366493531 15 MG Orally May Active 1 tablet Once a day for , diabetes 2019 Dicyclomine HCl ND 65986514829 20 MG Orally May Active 1 tablet as Four times a 09, 19, needed for day 2018 2019 stomach pain Atorvastatin ND 04057076964 10 MG Orally Active 1 tablet Calcium Once a day Lisinopril ND 84899172597 5 MG Orally Active 1 tab let Once a day Amoxicillin [facility] 58437383015 500 MG Orally Active 1 capsule Twice a day Alogliptin [facility] [place] 35950683132 25 MG Orally April Active 1 ta blet Benzoate Once a day for 28, diabetes 2018 GlipiZIDE XL [facility] [place] 59359687394 5 MG Orally Active 1 t ablet with Once a day food GlipiZIDE [facility] [place] [place] 44162470334 5 MG Orally May Active 1 tabl et Once a day 2018 Triamcinolone [facility] [place] 95169577218 0.1 % April Active 1 appl ication Acetonide Externally 28, to affected Twice a day 2019 areas BusPIRone HCl [facility] [place] 61521283215 7.5 MG Orally April 18, Active 1 tablet as Twice a day 2018 needed for anxiety Orphenadrine [facility] [place] [address]-64 100 MG Orally Active as directed Citrate ER Results No Known Results Summary Purpose eClinicalWorks Submission
--- OUTSIDE RECORDS SUMMARY | 2020-03-17 12:55 | XMS REPORT ---
[...] Problem Essential hypertension I10 Activ e Problem Hypercholesterolemia E78.00 Active Problem Asthma J45.909 Active Medications No Known Medications Results No Known Results Summary Purpose eClinicalWorks Submission
--- OUTSIDE RECORDS SUMMARY | 2020-03-17 12:55 | XMS REPORT ---
:1985 Author Organization eClinicalWorks Care Team Providers Name Role Phone Danny Klarissa Provider Role Unavailable Allergies, Adverse Reactions, Alerts Substance Reaction Event Type N.K.D.A. Info Not Available Non Drug Allergy Problems Problem Type Condition Code Onset Dates Condition Statu s Assessment Follow-up exam Z09 Active Assessment Uncontrolled type 2 diabetes E11.65 Active mellitus with hyperglycemia Assessment Pain of upper abdomen R10.10 Active Assessment Frequent headaches R51 Active Assessment Constipation, unspecified K59.00 Ac tive constipation type Problem High blood pressure I10 [...] screening Z13.31 Active Problem Constipation, unspecified K59.00 Ac tive constipation type Problem Generalized weakness R53.1 Active [...] sleeping G47.9 Active Problem Essential hypertension I10 Activ e Problem Asthma J45.909 Active Problem Uterine bleeding N93.9 Active Problem Left ovarian cyst N83.202 Active Problem Right upper quadrant pain R10.11 Ac tive Problem Dietary surveillance and counseling Z71.3 Active Medications Medication Code Code Instructions Start End Status Dosage System Date Date Dicyclomine HCl [facility] 77607629397 20 MG Orally May Active 1 tablet as Four times a 09, 19, needed for day 2018 2018 stomach pain Triamcinolone ND 49875020626 0.1 % April Active 1 appl ication Acetonide Externally 28, to affected Twice a day 2019 areas Loratadine ND 72242264142 10 MG Orally Active 1 ta blet Once a day Lisinopril ND 42740994989 5 MG Orally Active 1 tab let Once a day Farxiga ND 23982419718 5mg Orally May Active 1 tablet Once daily , 2018 Lactulose [facility] 36110865488 10 GM/15ML May Active 15-30 m l Orally Once to , twice a day as 2019 2019 needed for constipation BusPIRone HCl ND 05183746522 7.5 MG Orally April 18, Active 1 tablet as Twice a day 2018 needed for anxiety Vitamin D [facility] 72107619032 2000 UNIT Active 1 tablet Orally Once a day Atorvastatin [facility] 13560948049 10 MG Orally Active 1 tablet Calcium Once a day Orphenadrine [facility] [address]-78 100 MG Orally Active as directed Citrate ER Alogliptin [facility] 80713476100 25 MG Orally April Active 1 ta blet Benzoate Once a day for , diabetes 2019 Pioglitazone HCl [facility] 19523638342 15 MG Orally May Active 1 tablet Once a day for 05, diabetes 2019 GlipiZIDE XL [facility] 27359279869 5 MG Orally Active 1 t ablet with Once a day food Amoxicillin [facility] 58599442431 500 MG Orally Active 1 capsule Twice a day Meclizine HCl [facility] 24384645924 25 MG Orally April Active 1 tablet as Twice daily 07, needed for 2019 dizziness Results No Known Results Summary Purpose eClinicalWorks Submission
--- OUTSIDE RECORDS SUMMARY | 2020-03-17 12:56 | XMS REPORT ---
:1985 [facility] Team Providers Name Role Phone Klarissa Delgado Provider Role Unavailable Allergies, Adverse Reactions, Alerts Substance Reaction Event Type N.K.D.A. Info Not Available Non Drug Allergy Problems Problem Type Condition Code Onset Dates Condition Statu s Assessment Morbid obesity E66.01 Active Assessment Dietary surveillance and counseling Z71.3 Active Assessment Uncontrolled type 2 diabetes E11.65 Active mellitus with hyperglycemia Assessment Essential hypertension I10 Activ e Problem Migraine G43.909 Active Problem Diabetes E11.9 Active Problem Essential hypertension I10 Activ e Problem Asthma J45.909 Active Problem Sinus problem [...] Right upper quadrant pain R10.11 Ac tive Assessment Allergic rhinitis, unspecified J30.9 Active seasonality, unspecified trigger Problem Anxiety F41.9 Active Problem High blood pressure I10 Active Assessment Constipation, unspecified K59.00 Ac tive constipation type Problem Difficulty sleeping G47.9 Active Problem Dietary surveillance and counseling Z71.3 Active Problem Left ovarian cyst N83.202 Active Problem Morbid obesity E66.01 Active Problem Uterine bleeding N93.9 Active Medications Medication Code Code Instructions Start End Status Dosage System Date Date Atorvastatin [facility] 18898589456 10 MG Orally Active 1 tablet Calcium Once a day Orphenadrine [facility] [address]-50 100 MG Orally Active as directed Citrate ER Amoxicillin ND 28781964314 500 MG Orally Active 1 capsule Twice a day Meclizine HCl ND 40712312859 25 MG Orally April Active 1 tablet as Twice daily 07, needed for 2019 dizziness BusPIRone HCl ND 01436413675 7.5 MG Orally April 18, Active 1 tablet as Twice a day 2018 needed for anxiety Loratadine ND 12255932354 10 MG Orally Active 1 ta blet Once a day GlipiZIDE XL [facility] 40972344278 5 MG Orally Active 1 t ablet with Once a day food Farxiga [facility] 01771199328 5mg Orally May Active 1 tablet Once daily 2018 Pioglitazone HCl [facility] 85070630909 15 MG Orally May Active 1 tablet Once a day for 05, diabetes 2019 Alogliptin [facility] 73337038020 25 MG Orally April Active 1 ta blet Benzoate Once a day for 28, diabetes 2019 Triamcinolone [facility] 43961185003 0.1 % April Active 1 appl ication Acetonide Externally 28, to affected Twice a day 2019 areas Lisinopril [facility] 17322379574 5 MG Orally Active 1 tab let Once a day Vitamin D [facility] 11585198928 2000 UNIT Active 1 tablet Orally Once a day BELVIQ [facility] 38794974483 10 MG orally Jun 28Sep Active 1 table t Twice a day 2018 Results No Known Results Summary Purpose eClinicalWorks Submission
--- OUTSIDE RECORDS SUMMARY | 2020-03-17 12:56 | XMS REPORT ---
:1985 Author Organization eClinicalWorks Care Team Providers Name Role Phone Klarissa Delgado Provider Role Unavailable Allergies No Known Allergies Problems Problem Type Condition Code Onset Dates Condition Statu s Problem High blood pressure I10 Active Problem [...]
--- OUTSIDE RECORDS SUMMARY | 2020-03-17 12:59 | XMS REPORT ---
:1985 Author Organization eClinicalWorks Care Team Providers Name Role Phone Klarissa Delgaod Provider Role Unavailable Allergies No Known Allergies Problems Problem Type Condition Code Onset Dates Condition Statu s Problem Migraine G43.909 Active Problem Diabetes E11.9 [...] upper quadrant pain R10.11 Ac tive Problem Anxiety F41.9 Active Problem High blood pressure I10 Active Problem Difficulty sleeping G47.9 Active Problem Dietary surveillance and counseling Z71.3 Active Problem Left ovarian cyst N83.202 Active Problem Morbid obesity E66.01 Active Problem Uterine bleeding N93.9 Active Medications No Known Medications Results No Known Results Summary Purpose eClinicalWorks Submission
--- OUTSIDE RECORDS SUMMARY | 2020-03-17 13:22 | XMS REPORT | Summary of Care ---
:1985 Author Organization [facility] - [facility] Address [address] [place] [address] Care Team Providers Name Role Phone Klarissa Delgado Flores Insurance Hmo GABI Alvarez Primary Care Provider Reason for Visit Reason Comments Refill Request Encounter Details Date Type Department Care Team Description 02/18/2020 Refill [facility] Family Medicine Karoline Hare FNP Refill Request - [place] [address] [place] [address] [place] [phone] Allergies Active Allergy Reactions Severity Noted Date Comments Ibuprofen Rash 04/19/2017 documented as of this encounter (statuses as of 02/18/2020) Medications Medication Sig Dispensed Refills Start End Status Date Date sod Use 1 Bottle in 1 Each 0 18/2 Acti ve bptnw-lnamjd-txkbfa each nostril 2 019 bottle (NEILMED SINUS [...] Use 2 Sprays in 16 g 4 Ac tive propionate 50 each nostril 2 019 mcg/actuation nasal (two) times daily. sprayIndications: Seasonal allergic rhinitis, unspecified trigger busPIRone 7.5 mg TAKE 1 TABLET BY 180 tablet 0 Active tabletIndications: MOUTH TWICE DAILY 019 Medication refill NEEDED FOR ANXIETY traMADol 50 mg Take 1 tablet by 12 tablet 0 Active tabletIndications: mouth every 6 020 Labial abscess (six) hours as needed for Pain (scale 7-10). levocetirizine 5 mg TAKE 1 TABLET BY 30 tablet 4 Active tabletIndications: MOUTH ONCE DAILY 020 Seasonal allergic IN THE EVENING rhinitis, unspecified trigger azelastine 137 mcg Use 1 [place] in 30 mL 4 Active (0.1 %) [...] Take 1 tablet by 60 tablet 2 01/07/2 04/06/ Active tabletIndications: mouth 2 (two) 2019 gastroesophageal times daily before reflux disease breakfast and dinner for 90 days. Indications: gastroesophageal reflux disease docusate (COLACE) 100 Take 1 capsule by 30 capsule 1 01/07/2 03/07/ Active mg mouth daily for 60 2019 capsuleIndications: days. Constipation, unspecified constipation type meclizine 25 mg Take 1 tablet by 20 tablet 0 Active tabletIndications: mouth 3 (three) 020 Vertigo times daily as needed for Dizziness. benzonatate (TESSALON Take 1 capsule by 30 capsule 0 02/11/2 02/21/ Active PERLES) 100 mg mouth 3 (three) 2019 capsuleIndications: times daily for 10 Acute URI, Cough, days. Exposure to viral disease promethazine-dextrome Take 5 mL by mouth 240 mL 1 02/28/ Active thorphan 6.25-15 mg/5 every 4 (four) 020 202 0 mL syrupIndications: hours as needed Cough for Cough for up to 14 days. glyBURIDE 5 mg Take 1 tablet by 90 tablet 0 Active tabletIndications: mouth daily with 020 Type 2 diabetes breakfast. mellitus without complication, without long-term current use of insulin glyBURIDE 5 mg Take 1 tablet by 90 tablet 0 02/17/ Discontinued tabletIndications: mouth daily with 020 2020 (Reorder) Type 2 diabetes breakfast. mellitus without complication, without long-term current use of insulin documented as of this encounter (statuses as of 02/18/2020) Active Problems Problem Noted Date Morbid obesity with body mass index of 40.0-49.9 01/02 Indigestion 07/25/2019 Overview: Added automatically from request for linda brian [id number] Epigastric pain 07/25/2019 Overview: Added automatically from request for linda brian [id number] Type 2 diabetes mellitus with complication, without lo ng-term current use 06/13/2019 of insulin Neck pain, acute 06/13/2019 Acute bilateral low back pain with bilateral sciatica 06/13/2019 Allergic sinusitis 06/13/2019 Secondary oligomenorrhea 05/10/2019 Overview: 05/10/19 s/p EMB - histology revealed a b enign endometrial polyp. Cyclic progesterone started. Abdominal pain, left lower quadrant 05/10/2019 Obesity (BMI 30-39.9) 04/27/2017 documented as of this encounter (statuses as of 02/18/2020) Immunizations Name Administration Dates Next Due Influenza [...] six or more drinks on one occasion? No t asked Sex Assigned at Date Recorded Not on file Job Start Date Occupation Industry Not on file Not on file Not on file Travel History Travel Start Travel End No recent travel history available. documented as of this encounter Last Filed Vital Signs Not on filedocumented in this encounter Plan of Treatment Date Type Specialty Care Team Description 02/26/2020 Nurse Visit Obstetrics & Gynecology Nurse, [facility] 03/05/2020 Office Visit Obstetrics & Gynecology Claritza Zaragoza MD [address] [place] [phone] 06/11/2020 Private Detective Visit Endocrinology Diabetes & Lamonte, ANTONOI Arauz Metabolism [address] [place] [address] [phone] Health Maintenance Due Date Last Done Comments [...] Visit Diagnoses Diagnosis Type 2 diabetes mellitus without complic ation, without long-term current use of insulin documented in this encounter Additional Health Concerns Infection Noted Time Resolved Time Contact - ESBL 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
--- OUTSIDE RECORDS SUMMARY | 2020-03-17 13:22 | XMS REPORT | Summary of Care ---
:1985 Author Organization [facility] - Health Address [address] [place] [address] Care Team Providers Name Role Phone Klarissa Delgado Flores Insurance Hmo GABI Alvarez Primary Care Provider Reason for Visit Reason Comments COLD SYMPTOMS Encounter Details Date Type Department Care Team Description 02/20/2020 Emergency ADC-Emergency Janet Burroughs, Seasonal allergies (Primary Dx); Department Hypertension, unspecified type [address] [place] [address] [id number] [place], [place] [address] Allergies Active Allergy Reactions Severity Noted Date Comments Ibuprofen Rash 04/19/2017 documented as of this encounter (statuses as of 02/20/2020) Medications Medication Sig Dispensed Refills Start End Status Date Date sod kklsb-ppotpm-qyfryj Use 1 Bottle in each 1 Each 0 04/13 Active bottle (NEILMED SINUS nostril 2 (two) 9 RINSE COMPLETE) times daily. Use in pkdvIndications: hot shower 1 hour Sinusitis, unspecified before bedtime chronicity, unspecified location dicyclomine (BENTYL) 10 Take 1 capsule by 30 capsule 0 05/21/2 01 Active mg capsuleIndications: mouth every 8 9 Epigastric pain (eight) hours as needed for Abdominal pain. Fluticasone-Salmeterol Inhale 1 Puff every 60 Each 1 06/13/12 28 Active (ADVAIR DISKUS) 100-50 12 (twelve) hours. 9 mcg/dose inhalation diskIndications: Mild intermittent asthma without complication fluticasone propionate Use 2 Sprays in each 16 g 4 Active 50 mcg/actuation nasal nostril 2 (two) 9 sprayIndications: times daily. Seasonal allergic rhinitis, unspecified trigger busPIRone 7.5 mg TAKE 1 TABLET BY 180 tablet 0 Active tabletIndications: MOUTH TWICE DAILY 9 Medication refill NEEDED FOR ANXIETY traMADol 50 mg Take 1 tablet by 12 tablet 0 Active tabletIndications: mouth every 6 (six) 0 Labial abscess hours as needed for Pain (scale 7-10). levocetirizine 5 mg TAKE 1 TABLET BY 30 tablet 4 Active tabletIndications: MOUTH ONCE DAILY IN 0 Seasonal allergic THE EVENING rhinitis, unspecified trigger azelastine 137 mcg (0.1 Use 1 [place] in each 30 mL 4 Active %) [...] Active tabletIndications: mouth 2 (two) times 0 0 20 gastroesophageal reflux daily before disease breakfast and [...] 5 mL by mouth 240 mL 1 02 Active orphan 6.25-15 mg/5 mL every 4 (four) hours 0 020 syrupIndications: Cough as needed for Cough for up to 14 days. glyBURIDE 5 mg Take 1 tablet by 90 tablet 0 Active tabletIndications: Type mouth daily with 0 2 diabetes mellitus breakfast. without complication, without long-term current use of insulin benzonatate 200 mg Take 1 capsule by 21 capsule 0 Active capsuleIndications: mouth 3 (three) 0 Seasonal allergies times daily as needed for Cough. documented as of this encounter (statuses as of 02/20/2020) Active Problems Problem Noted Date Morbid obesity with body mass index of 40.0-49.9 01/02 Indigestion 07/25/2019 Overview: Added automatically from request for linda brian [id number] Epigastric pain 07/25/2019 Overview: Added automatically from request for linda brian [id number] Type 2 diabetes mellitus with complication, without [...] as of this encounter (statuses as of 02/20/2020) Immunizations Name Administration Dates Next Due Influenza [...] Sign Reading Time Taken Comments Blood Pressure 174/94 02/20/2020 6:39 PM CDT Pulse 100 02/20/2020 6:39 PM CDT Temperature 37.6 C (99.6 F) 02/20/2020 6:39 PM CDT Respiratory Rate 17 02/20/2020 6:39 PM CDT Oxygen Saturation 98% 02/20/2020 6:39 PM CDT Inhaled Oxygen Concentration - - Weight 106.6 kg (235 lb) 02/20/2020 6:39 PM CDT Height 162.6 cm (5' 4") 02/20/2020 6:39 PM CDT Body Mass Index 40.34 02/20/2020 6:39 PM CDT documented in this encounter Discharge Instructions Janet House MD - 02/20/2020 DIAGNOSIS Diagnoses that have been ruled out: None Diagnoses that are still under consideration: None Final diagnoses: None NO LIFE-THREATENING FINDINGS ON TODAY'S EXAM. PROCEDURES IN THE ER TODAY: No orders of the defined types were placed in this encounter. MEDICATIONS ADMINISTERED IN THE ER TODAY AND DISCHARGE MEDICATIONS: No orders of the defined types were placed in this encounter. FOLLOW-UP RECOMMENDATIONS: RECOMMEND FOLLOW-UP WITH A PRIMARY CARE PROVIDER OR SPECIALIST IN 2-5 DAYS, ESPECIALLY IF NO IMPROVEMENT IN SYMPTOMS. MAY FOLLOW-UP WITH A PROVIDER OF YOUR CHOICE, SUCH : 1. A PHYSICIAN OF YOUR CHOICE 2. [facility], . LOCATIONS IN [facility] 3. [facility], [address] [facility], [place], [place]; [phone] OR, IF YOU WISH TO FOLLOW-UP WITHIN THE [facility], MAY TRY THESE OPTIONS (CLINIC APPOINTMENTS AVAILABLE ON [id number] BASIS): 1. SCHEDULE AN APPOINTMENT ONLINE AT [email or web address] 2. OR CALL THE [facility] AT OR 3. OR CALL YOUR [facility] PHYSICIAN'S OFFICE DIRECTLY IF YOU ARE ALREADY AN ESTABLISHED [facility] PATIENT. RETURN TO ER FOR WORSENING OF SYMPTOMS AttachmentsThe following attachments cannot be sent through Care Everywhere.High Blood Pressure, Controlling (Cymraes)Allergies (Nasal), Understanding (Cymraes) documented in this encounter Plan of Treatment Date Type Specialty Care Team Description 02/26/2020 Nurse Visit Obstetrics & Gynecology Nurse, [facility] Women' s Health 03/05/2020 Office Visit Obstetrics & Gynecology Claritza Zaragoza MD [address] [place] [phone] 06/11/2020 Lung Splitter Visit Endocrinology Diabetes & LamonteRegla alvarez, RD Metabolism [address] [place] [address] [phone] Health Maintenance Due Date Last Done Comments [...] Procedures Procedure Name Priority Date/Time Associated Diagnosis Comme nts NOTICE OF PRIVACY Routine 02/20/2020 6:29 PM CDT PRACTICES CONSENT/REFUSAL FOR Routine 02/20/2020 6:28 PM CDT DIAGNOSIS AND TREATMENT documented in this encounter Results Not on filedocumented in this encounter Visit Diagnoses Diagnosis Seasonal allergies - Primary Allergic rhinitis, cause unspecified Hypertension, unspecified type documented in this encounter Additional Health Concerns Infection Noted Time Resolved Time Contact - ESBL 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
--- OUTSIDE RECORDS SUMMARY | 2020-03-17 13:22 | XMS REPORT | Summary of Care ---
:1985 Author Organization [facility] - [facility] Address [address] [place] [address] Care Team Providers Name Role Phone Klarissa Delgado Flores Insurance Hmo GABI Alvarez Primary Care Provider Reason for Visit Reason Comments Assessment TRIAGE Encounter Details Date Type Department Care Team Description 02/20/[address] [facility] Family Clara Quarles A ssessment (TRIAGE) Medicine - Diogenes [facility] [address] [place] [address] [place] [address] [place], [place] [phone] [address] Allergies Active Allergy Reactions Severity Noted Date Comments Ibuprofen Rash 04/19/2017 documented as of this encounter (statuses as of 02/21/2020) Medications Medication Sig Dispensed Refills Start End Status Date Date sod gqfbr-axppew-svyszt Use 1 Bottle in each 1 Each [...] trigger azelastine 137 mcg (0.1 Use 1 [place] in each 30 mL 4 Active %) [...] as of this encounter (statuses as of 02/21/2020) Active Problems Problem Noted Date Morbid obesity with body mass index of 40.0-49.9 01/02 Indigestion 07/25/2019 Overview: Added automatically from request for linda brian [id number] Epigastric pain 07/25/2019 Overview: Added automatically from request for linda brian [id number] Type 2 diabetes mellitus with complication, without [...] as of this encounter (statuses as of 02/21/2020) Immunizations Name Administration Dates Next Due Influenza [...] Visit Obstetrics & Gynecology Claritza Zaragoza MD [address] [place] [phone] 06/11/2020 Sanitor Visit Endocrinology Diabetes & Lamonte, Regla, ANTONIO Metabolism [address] [place], [place] [address] Health Maintenance Due Date Last Done Comments [...] Time Contact - ESBL 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
--- OUTSIDE RECORDS SUMMARY | 2020-03-17 13:23 | XMS REPORT | Summary of Care ---
:1985 Author Organization [facility] - Health Address [address] [place] [address] Care Team Providers Name Role Phone Klarissa Delgado Flores Insurance Hmo GABI Alvarez Primary Care Provider Reason for Visit Reason Comments Hospital F/U ED Encounter Details Date Type Department Care Team Description 02/21/2020 Patient Outreach [facility] Community Rita Rodriguez, Hosp ital F/U (ED[facility]- [place] [phone] Allergies Active Allergy Reactions Severity Noted Date Comments Ibuprofen Rash 04/19/2017 documented as of this encounter (statuses as of 02/21/2020) Medications Medication Sig Dispensed Refills Start End Status Date Date sod dkzxw-oejonw-pdagur Use 1 Bottle in each 1 Each 0 04/13 Active bottle (NEILMED SINUS nostril 2 (two) 9 RINSE COMPLETE) times daily. Use in pkdvIndications: hot shower 1 hour Sinusitis, unspecified before bedtime chronicity, unspecified location dicyclomine (BENTYL) 10 Take 1 capsule by 30 capsule 0 01 Active mg capsuleIndications: mouth every 8 9 Epigastric pain (eight) hours as needed for Abdominal pain. Fluticasone-Salmeterol Inhale 1 Puff every 60 Each 1 01 Active (ADVAIR DISKUS) 100-50 12 (twelve) hours. [...] hours as needed for Pain (scale 7-10). ACCU-CHEK GUIDE GLUCOSE Use as directed, 1 [...] URI, Cough, days. Exposure to viral disease glyBURIDE 5 mg Take 1 tablet by 90 tablet 0 Active tabletIndications: Type mouth daily with 0 2 diabetes mellitus breakfast. without complication, without long-term current use of insulin benzonatate 200 mg Take 1 capsule by 21 capsule 0 Active capsuleIndications: mouth 3 (three) 0 Seasonal allergies times daily as needed for Cough. azelastine 137 mcg (0.1 Use 1 [place] in each 30 mL 5 Active %) nasal nostril 2 (two) 0 sprayIndications: Acute times daily. Use in allergic rhinitis each nostril as directed levocetirizine 5 mg TAKE 1 TABLET BY 30 tablet 5 Active tabletIndications: MOUTH ONCE DAILY IN 0 Acute allergic rhinitis THE EVENING montelukast 10 mg Take 1 tablet by 30 tablet 5 Active tabletIndications: mouth every evening. 0 Acute allergic rhinitis lubiprostone 8 mcg Take 1 capsule by 60 capsule 5 Active capsuleIndications: mouth 2 (two) times 0 Chronic idiopathic daily with meals. constipation documented as of this encounter (statuses as of 02/21/2020) Active Problems Problem Noted Date Morbid obesity with body mass index of 40.0-49.9 01/02 Indigestion 07/25/2019 Overview: Added automatically from request for linda brian [id number] Epigastric pain 07/25/2019 Overview: Added automatically from request for linda brian [id number] Type 2 diabetes mellitus with complication, without [...] on filedocumented in this encounter Progress Notes Rita Rodriguez RN - 02/21/2020 1:48 PM CDTDate of Service: 02/20/2020 Diagnoses: Seasonal allergic reaction Hypertension, unspecified type Care Transition CM made f/u call to pt post-discharge. No response and call went to voicemail. CM left a discreet message with purpose of call and CM's call back information. Rita Rodriguez RN, BSN [employer] [phone] documented in this encounter Plan of Treatment Date Type Specialty Care Team Description 02/26/2020 Nurse Visit Obstetrics & Gynecology Nurse, [facility] 03/05/2020 Office Visit Obstetrics & Gynecology Claritza Zaragoza MD [address] [place] [phone] 06/11/2020 Optical Goods Worker Visit Endocrinology Diabetes & LamonteRegla alvarez RD Metabolism [address] [place] [address] [phone] Health Maintenance Due Date Last Done Comments [...] Time Contact - ESBL 10/31/2018 4:[address]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
--- OUTSIDE RECORDS SUMMARY | 2020-03-17 13:23 | XMS REPORT | Summary of Care ---
:1985 Author Organization [facility] Address [address] [place] [address] Care Team Providers Name Role Phone Klarissa Delgado Flores Insurance Hmo GABI Alvarez Primary Care Provider Reason for Visit Reason Comments Rx Concern/Question Encounter Details Date Type Department Care Team Description 03/01/2020 Telephone [facility] Cruz Alvarez FNP Rx Concern/Question [facility] [address] [facility] [place] [address] [address] [place], [place] [phone] Allergies Active Allergy Reactions Severity Noted Date Comments Ibuprofen Rash 04/19/2017 documented as of this encounter (statuses as of 03/02/2020) Medications Medication Sig Dispensed Refills Start End Status Date Date sod csjsd-ycjzii-yzjats Use 1 Bottle in each 1 Each [...] Vertigo times daily as needed for Dizziness. glyBURIDE 5 mg Take 1 tablet by 90 tablet 0 Active tabletIndications: Type mouth daily with 0 2 diabetes mellitus breakfast. without complication, without long-term current use of insulin benzonatate 200 mg Take 1 capsule by 21 capsule 0 Active capsuleIndications: mouth 3 (three) 0 Seasonal allergies times daily as needed for Cough. azelastine 137 mcg (0.1 Use 1 [place] in each 30 mL 5 Active %) [...] as of this encounter (statuses as of 03/02/2020) Active Problems Problem Noted Date Chronic idiopathic constipation 02/21/2020 Epistaxis 02/21/2020 Morbid obesity with body mass index of 40.0-49.9 01/02 Indigestion 07/25/2019 Overview: Added automatically from request for linda brian [id number] Epigastric pain 07/25/2019 Overview: Added automatically from request for linda brian [id number] Type 2 diabetes mellitus with complication, without [...] as of this encounter (statuses as of 03/02/2020) Immunizations Name Administration Dates Next Due Influenza [...] Visit Obstetrics & Gynecology Claritza Zaragoza MD [address] [place] [address] [phone] 06/11/2020 Magento Web Developer Visit Endocrinology Diabetes & Lamonte, Regla, RD Metabolism [address] [place] [address] Health Maintenance Due Date Last [...] Time Contact - ESBL 10/31/2018 4:18 PM PSYCHIATRY PHYSICIAN documented as of this encounter Insurance Payer Benefit Plan / Subscriber ID Effective Phone Address T e Group [facility] [place] xxxxxxxxx 2020-Prese Medicaid HEALTHCARE COMM PLUS nt PLAN - MANAGED MEDICAID [facility] [id number] 2019-Prese Medic are Adv HEALTHCARE - HEALTHCARE DUAL nt H [place] MANAGED COMPLETE HMO MEDICARE documented as of this encounter Advance Directives Name Relationship Healthcare Agent Communication Relationship Miranda Morales Sibling Primary healthcare agent Michelet Brower Significant Other First alternate [phone] healthcare agent (Mobile)
--- OUTSIDE RECORDS SUMMARY | 2020-03-17 13:23 | XMS REPORT | Summary of Care ---
:1985 Author Organization [facility] Address [address] [place] [address] Care Team Providers Name Role Phone Klarissa Delgado Flores Insurance Hmo GABI Alvarez Primary Care Provider Reason for Visit Reason Comments Rx Concern/Question Encounter Details Date Type Department Care Team Description 03/01/2020 Telephone [facility] Cruz Alvarez FNP Rx Concern/Question [facility] [address] [facility] [place] [address] [place] [phone] Allergies Active Allergy Reactions Severity Noted Date Comments Ibuprofen Rash 04/19/2017 documented as of this encounter (statuses as of 03/02/2020) Medications Medication Sig Dispensed Refills Start End Status Date Date sod uusqk-kvwfcd-jbnihg Use 1 Bottle in each 1 Each [...] Cough. 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 [place] xxxxxxxxx 2020-Prese Medicaid HEALTHCARE COMM PLUS nt PLAN - MANAGED MEDICAID [facility] [id number] 2019-Prese Medic are Adv HEALTHCARE - HEALTHCARE DUAL nt H [place] MANAGED COMPLETE HMO MEDICARE documented as of this encounter Advance Directives Name Relationship Healthcare Agent Communication Relationship Miranda Morales Sibling Primary healthcare agent Michelet Brower Significant Other First alternate [phone] healthcare agent (Mobile)
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
--- OUTSIDE RECORDS SUMMARY | 2020-03-17 13:24 | XMS REPORT | Summary of Care ---
:1985 Author Organization [facility] - [facility] Address [address] [place] [address] Care Team Providers Name Role Phone Klarissa Delgado Flores Insurance Hmo GABI Alvarez Primary Care Provider Reason for Visit Reason Comments Rx Concern/Question Encounter Details Date Type Department Care Team Description 03/02/2020 Telephone [facility] Family Kathy Alvarez FNP Rx Concern/Question Medicine - [place] [address] [facility] [facility] [address] [place] [address] 161 [place], [place] [phone] [address] Allergies Active Allergy Reactions Severity Noted Date Comments Ibuprofen Rash 04/19/2017 documented as of this encounter (statuses as of 03/02/2020) Medications Medication Sig Dispensed Refills Start End Status Date Date sod Use 1 Bottle in 1 Each 0 Acti ve xsivf-xgfojk-bnmdxc each nostril 2 019 bottle (NEILMED SINUS [...] times daily as needed for Dizziness. benzonatate 200 mg Take 1 capsule by 21 capsule 0 Active capsuleIndications: mouth 3 (three) 020 Seasonal allergies times daily as needed for Cough. azelastine 137 mcg Use 1 [place] in 30 mL 5 Active (0.1 %) nasal each nostril 2 020 sprayIndications: (two) times daily. Acute allergic Use [...] Chronic idiopathic times daily with constipation meals. glipiZIDE 5 mg Take 1 tablet by 90 tablet 0 Active tabletIndications: mouth daily. 020 Type 2 diabetes mellitus without complication, without long-term current use of insulin glyBURIDE 5 mg Take 1 tablet by 90 tablet 0 2 tabletIndications: mouth daily with 020 2020 (Formulary Type 2 diabetes breakfast. tish nge) mellitus without complication, without long-term current use of insulin documented as of this encounter (statuses as of 03/02/2020) Active Problems Problem Noted Date Chronic idiopathic constipation 02/21/2020 Epistaxis 02/21/2020 Morbid obesity with body mass index of 40.0-49.9 01/02 Indigestion 07/25/2019 Overview: Added automatically from request for linda brian [id number] Epigastric pain 07/25/2019 Overview: Added automatically from request for linda brian [id number] Type 2 diabetes mellitus with complication, without lo ng-term current use 06/13/2019 of insulin Neck pain, acute 06/13/2019 Acute bilateral low back pain with bilateral sciatica 06/13/2019 Allergic sinusitis 06/13/2019 Secondary oligomenorrhea 05/10/2019 Overview: 6/14/19 s/p EMB - histology revealed a b [...] Visit Obstetrics & Gynecology Claritza Zaragoza MD [address] [place] [phone] 06/11/2020 Agricultural Equipment Test Engineer Visit Endocrinology Diabetes & Lamonte, Regla, RD Metabolism [address] [place], [place] [address] Health Maintenance Due Date Last Done Comments [...] Time Contact - ESBL 10/31/2018 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
--- OUTSIDE RECORDS SUMMARY | 2020-03-17 13:24 | XMS REPORT | Summary of Care ---
:1985 Author Organization [facility] Address [address] [place] [address] Care Team Providers Name Role Phone Klarissa Delgado Flores Insurance Hmo GABI Alvarez Primary Care Provider Reason for Visit Reason Comments Rx Concern/Question Encounter Details Date Type Department Care Team Description 03/01/2020 Telephone [facility] Cruz Alvarez FNP Rx Concern/Question [facility] [address] [facility] [place] [address] [address] [place], [place] [phone] [address] Allergies Active Allergy Reactions Severity Noted Date Comments Ibuprofen Rash 04/19/2017 documented as of this encounter (statuses as of 03/02/2020) Medications Medication Sig Dispensed Refills Start End Status Date Date sod yfolj-idldrp-bwlrzb Use 1 Bottle in each 1 Each [...] Cough. 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
--- OUTSIDE RECORDS SUMMARY | 2020-03-17 13:24 | XMS REPORT | Summary of Care ---
:1985 Author Organization [facility] - [facility] Address [address] [place] [address] Care Team Providers Name Role Phone Klarissa Delgado Flores Insurance Hmo GABI Alvarez Primary Care Provider Reason for Visit Reason Comments Rx Concern/Question Encounter Details Date Type Department Care Team Description 03/02/2020 Telephone [facility] Family Kathy Alvarez FNP Rx Concern/Question Medicine - [place] [address] [facility] [address] [facility] [address] [place] [address] 161 [place], [place] [phone] Allergies Active Allergy Reactions Severity Noted Date Comments Ibuprofen Rash 04/19/2017 documented as of this encounter (statuses as of 03/02/2020) Medications Medication Sig Dispensed Refills Start End Status Date Date sod rewcj-lsyjwh-qugsfm Use 1 Bottle in each 1 Each 0 04/13 Active bottle (NEILMED SINUS nostril 2 (two) 9 RINSE COMPLETE) times daily. Use in pkdvIndications: hot shower 1 hour Sinusitis, unspecified before bedtime chronicity, unspecified location dicyclomine (BENTYL) 10 Take 1 capsule by 30 capsule 0 05/21/ 01 Active mg capsuleIndications: mouth every 8 [...] Cough. 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 documented as of this encounter Insurance Payer Benefit Plan / Subscriber ID Effective Phone Address T e Group Dates [facility] [place] xxxxxxxxx 2020-Prese Medicaid HEALTHCARE COMM PLUS nt PLAN - MANAGED MEDICAID [facility] [id number] 2019-Prese Medic are Adv HEALTHCARE - HEALTHCARE DUAL nt H MO MANAGED COMPLETE HMO MEDICARE documented as of this encounter Advance Directives Name Relationship Healthcare Agent Communication Relationship Miranda Morales Sibling Primary healthcare agent Michelet Brower Significant Other First alternate [phone] healthcare agent (Mobile)
--- OUTSIDE RECORDS SUMMARY | 2020-03-17 13:24 | XMS REPORT | Summary of Care ---
:1985 Author Organization [facility] Address [address] [place] [address] Care Team Providers Name Role Phone Klarissa Delgado Flores Insurance Hmo GABI Alvarez Primary Care Provider Reason for Visit Reason Comments Rx Concern/Question Encounter Details Date Type Department Care Team Description 03/01/2020 Telephone [facility] Cruz Alvarez FNP Rx Concern/Question [facility] [address] [facility]103 [place] [address] 736 [place], [place] [phone] [address] Allergies Active Allergy Reactions Severity Noted Date Comments Ibuprofen Rash 04/19/2017 documented as of this encounter (statuses as of 03/02/2020) Medications Medication Sig Dispensed Refills Start End Status Date Date sod tycfn-crflqr-wrrwza Use 1 Bottle in each 1 Each [...] Cough. 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 documented as of this encounter Insurance Payer Benefit Plan / Subscriber ID Effective Phone Address T e Group [facility] [place] xxxxxxxxx 2020-Prese Medicaid HEALTHCARE COMM PLUS nt PLAN - MANAGED MEDICAID [facility] [id number] 2019-Prese Medic are Adv HEALTHCARE - HEALTHCARE DUAL nt H MO MANAGED COMPLETE HMO MEDICARE documented as of this encounter Advance Directives Name Relationship Healthcare Agent Communication Relationship Miranda Morales Sibling Primary healthcare agent Michelet Brower Significant Other First alternate [phone] healthcare agent (Mobile)
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
--- OUTSIDE RECORDS SUMMARY | 2020-03-17 13:25 | XMS REPORT | Summary of Care ---
:1985 Author Organization [facility] - [facility] Address [address] [place] [id number] Care Team Providers Name Role Phone RafykarisKlarissa Flores Insurance Hmo GABI Alvarez Primary Care Provider Reason for Visit Reason Comments UPPER RESPIRATORY INFECTION Encounter Details Date Type Department Care Team Description 03/02/[address] [facility] Family Po, Acute Care UPPER RESPIRATORY Medicine - [facility] INFECTION [facility] [place] [address] Allergies Active Allergy Reactions Severity Noted Date Comments Ibuprofen Rash 04/19/2017 documented as of this encounter (statuses as of 03/02/2020) Medications Medication Sig Dispensed Refills Start End Status Date Date sod naxfv-kttogl-uwdwpb Use 1 Bottle in each 1 Each [...] Cough. azelastine 137 mcg (0.1 Use 1 [place] in each 30 mL 5 Active %) [...] Added automatically from request for linda brian [id number] Epigastric pain 07/25/2019 Overview: Added automatically from request for linda brian [id number] Type 2 diabetes mellitus with complication, without [...] Treatment Date Type Specialty Care Team Description 03/03/2020 Urgent Care Family Medicine Pob1, Acute Care Clinic 03/05/2020 Office Visit Obstetrics & Gynecology Claritza Zaragoza MD [address] [place] [phone] 06/11/2020 Manager Ambulatory Visit Endocrinology Diabetes & LamonteRegla alvarez, RD Metabolism [address] [place] [address] Health Maintenance Due Date Last [...] Time Contact - ESBL 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 documented as of this encounter Insurance Payer Benefit Plan / Subscriber ID Effective Phone Address T ype Group [facility] [place] xxxxxxxxx 2020-Prese Medicaid HEALTHCARE COMM PLUS nt PLAN - MANAGED MEDICAID [facility] [id number] 2019-Phan Collins are Adv HEALTHCARE - HEALTHCARE DUAL nt H MO MANAGED COMPLETE HMO MEDICARE documented as of this encounter Advance Directives Name Relationship Healthcare Agent Communication Relationship Miranda Morales Sibling Primary healthcare agent Michelet Brower Significant Other First alternate [phone] healthcare agent (Mobile)
--- OUTSIDE RECORDS SUMMARY | 2020-03-17 13:26 | XMS REPORT | Summary of Care ---
:1985 Author Organization [address] [address] Care Team Providers Name Role Phone DannyMohantaylor Tanner Insurance Hmo GABI Alvarez Primary Care Provider Reason for Visit Reason Comments INFERTILITY Pelvic Pain Encounter Details Date Type Department Care Team Description 03/05/2020 Telemedicine Visit [facility] Agustin, Claritza, Mei ndyaw oligomenorrhea (Primary Dx); Women's MD Abdominal cramping; [address] Female infert ility associated with anovulation; [facility] Type 2 diabetes mellitus with complicati on, without long-term current use of insulin; [address] [place] [address] Obesity (BMI 3 0-39.9) Drive, [address] [phone] [place], [place] [phone] Allergies Active Allergy Reactions Severity Noted Date Comments Ibuprofen Rash 04/19/2017 documented as of this encounter (statuses as of 03/05/2020) Medications Medication Sig Dispensed Refills Start Date End Date Status sod orqfp-jnjxgm-smsses Use 1 Bottle in 1 Each 0 04/13/2019 Active bottle (NEILMED SINUS each nostril 2 RINSE COMPLETE) (two) times pkdvIndications: daily. Use in Sinusitis, unspecified hot shower 1 chronicity, unspecified hour before location bedtime fluticasone propionate 50 Use 2 Sprays in 16 g 4 07/18/20 19 Active mcg/actuation nasal each nostril 2 sprayIndications: (two) times Seasonal allergic daily. rhinitis, unspecified trigger traMADol 50 mg Take 1 tablet 12 tablet 0 12/18/2019 Active tabletIndications: Labial by mouth every abscess 6 (six) hours as needed for Pain (scale 7-10). ACCU-CHEK GUIDE GLUCOSE Use as 1 Each 0 12/23/2019 Active METER Misc directed, once a day to monitor blood glucose for ICD code E11.9 ACCU-CHEK GUIDE strip Use as 100 Strip 2 12/23/2019 Active directed, once a day to monitor blood glucose for ICD code E11.9 ACCU-CHEK FASTCLIX Use as directed 1 Kit 0 12/27/2019 Active LANCING DEV Kit for once a day blood glucose monitoring for ICD E11.9 ACCU-CHEK FASTCLIX LANCET Use as directed 100 Each 0 12/27/19 20 Active DRUM Misc for once a day blood glucose monitoring for ICD E11.9 medroxyPROGESTERone Take one by 30 tablet 1 01/02/2020 Active (PROVERA) 10 mg mouth daily tabletIndications: Female days 1-10 of infertility associated each month. with anovulation docusate (COLACE) 100 mg Take 1 capsule 30 capsule 1 0 Active capsuleIndications: by mouth daily 0 Constipation, unspecified for 60 days. constipation type azelastine 137 mcg (0.1 Use 1 [place] in 30 mL 5 02/21/2020 Active %) nasal each nostril 2 sprayIndications: Acute (two) times allergic rhinitis daily. Use in each nostril as directed levocetirizine 5 mg TAKE 1 TABLET 30 tablet 5 02/21/2020 Active tabletIndications: Acute BY MOUTH ONCE allergic rhinitis DAILY IN THE EVENING montelukast 10 mg Take 1 tablet 30 tablet 5 02/21/2020 Active tabletIndications: Acute by mouth every allergic rhinitis evening. lubiprostone 8 mcg Take 1 capsule 60 capsule 5 02/21/2020 Active capsuleIndications: by mouth 2 Chronic idiopathic (two) times constipation daily with meals. glipiZIDE 5 mg Take 1 tablet 90 tablet 0 03/02/2020 Active tabletIndications: Type 2 by mouth daily. diabetes mellitus without complication, without long-term current use of insulin benzonatate (TESSALON Take 1 capsule 42 capsule 0 03/03/2020 0 Active PERLES) 100 mg by mouth 3 0 capsuleIndications: URI (three) times with cough and congestion daily for 14 days. lactulose 10 gram/15 mL Take 30 mL by 1 Bottle 0 03/04/2020 Active oral solutionIndications: mouth 3 (three) Constipation, unspecified times daily as constipation type needed for Constipation. documented as of this encounter (statuses as of 03/05/2020) Active Problems Problem Noted Date Chronic idiopathic constipation 02/21/2020 Epistaxis 02/21/2020 Morbid obesity with body mass index of 40.0-49.9 01/02 Indigestion 07/25/2019 Overview: Added automatically from request for linda brian [id number] Epigastric pain 07/25/2019 Overview: Added automatically from request for linda brian [id number] Type 2 diabetes mellitus with complication, without [...] as of this encounter (statuses as of 03/05/2020) Immunizations Name Administration Dates Next Due Influenza [...] on filedocumented in this encounter Progress Notes Claritza Velez MD - 03/05/2020 8:30 AM CDT TELEHEALTH NOTE Verbal consent obtained from Patient: Mckenna Haney due to the COVID-19 pandemic for telehealth services provided below. 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 Patient is currently on her third month of Provera 10 mg days one through 10 of the month. She now has a menses every month which last 5-7 days with normal flow. Last menstrual period was / with normal flow. She is currently on day 9 of her Provera for this month. Patient states she is checking a urine test before initiation of her Provera as she is having unprotected intercourse. Patient is desiring but does not want to use ovulation induction at this point. She was recently seen in the ED for cough which is now resolved. She was Covid19 Negative. Patient was also seen yesterday in the ED for abdominal cramping. She was treated for constipation anddid have a regular bowel movement yesterday. She states she has no pain today and has had a completeresolution of her cramping. test was negative during her ED visit. Past Medical History: Diagnosis Date Anxiety Genital herpes type 1 GERD (gastroesophageal reflux disease) HTN (hypertension) Hypercholesteremia Seasonal allergies Trichimoniasis Type 2 diabetes mellitus MEDICATIONS: Current Outpatient Medications Medication Sig Dispense Refill lactulose 10 gram/15 mL oral solution Take 30 mL by mouth 3 (three) times daily as needed for Constipation. 1 Bottle 0 lubiprostone 8 mcg capsule Take 1 capsule by mouth 2 (two) times daily with meals. 60 capsule 5 montelukast 10 mg tablet Take 1 tablet by mouth every evening. 30 tablet 5 ACCU-CHEK FASTCLIX LANCET DRUM Misc Use as directed for once a day blood glucose monitoring for ICD E11.9 100 Each 0 ACCU-CHEK FASTCLIX LANCING DEV Kit Use as directed for once a day blood glucose monitoring for ICD E11.9 1 Kit 0 benzonatate (TESSALON PERLES) 100 mg capsule Take 1 capsule by mouth 3 (three) times daily for 14 days. 42 capsule 0 glipiZIDE 5 mg tablet Take 1 tablet by mouth daily. 90 tablet 0 azelastine 137 mcg (0.1 %) nasal spray Use 1 [place] in each nostril 2 (two) times daily. Use in each nostril as directed 30 mL 5 levocetirizine 5 mg tablet TAKE 1 TABLET BY MOUTH ONCE DAILY IN THE EVENING 30 tablet 5 docusate (COLACE) 100 mg capsule Take 1 capsule by mouth daily for 60 days. 30 capsule 1 medroxyPROGESTERone (PROVERA) 10 mg tablet Take one by mouth daily days 1-10 of each month. 30 tablet 1 ACCU-CHEK GUIDE GLUCOSE METER Misc Use as [...] for Pain (scale 7-10). 12 tablet 0 fluticasone propionate 50 mcg/actuation nasal spray Use 2 Sprays in each nostril 2 (two) times daily. 16 g 4 sod bvhms-ekrivd-ljkutk bottle (NEILMED SINUS RINSE COMPLETE) pkdv Use 1 Bottle in each nostril 2 (two) times daily. Use in hot shower 1 hour before bedtime 1 Each 0 No current facility-administered medications for this visit. ROS Constitutional: Denies fever, chills Cardiovascular: Denies chest pain, palpitations Respiratory: Denies dyspnea, coughing Gastrointestinal: Denies nausea/vomiting, diarrhea Genitourinary: Denies vaginal bleeding, no urinary complaints TELEHEALTH EXAM Constitutional: alert and no distress Resp: breathing comfortably Neuro: answers questions appropriately Psych: affect normal ASSESSMENT/ PLAN Mckenna Haney is a 35 year old female with PMH as above presenting with: Irregular menstrual cycles/oligomenorrhea secondary to anovulation: Currently on month 3 of Provera 10 mg days one through 10 of each month. Menses have regulated and patient is checking her urine test before initiating the Provera therapy. Plan is to continue Provera 10 mg days one through 10 of every month for cycle regulation. Also continue UPT testing before initiating Provera. Infertility secondary to anovulation Will not ovulation induce at this point. Patient continues to be vigilant about medical therapy which could expose the fetus to harmful substances and notifying her physicians that she is having unprotected intercourse. Recent abdominal cramps secondary to constipation Resolution of symptoms with new medical therapy per the ED for her constipation. Continue to encourage by mouth fluid intake/hydration and diet with fiber/fiber supplements. Type 2 diabetes controlled with insulin/glipizide Patient states compliance on her medical therapy. Follow up in 3 months. Telemedicine. Coronavirus prevention/resources discussed. Handwashing for 20 seconds, social distancing, and sterilization were stressed. After visit summary (AVS ) documentation will be available through [employer] for this encounter. A total of 20 minutes was spent on the Telephone with the patient. Claritza Velez MD documented in this encounter Plan of Treatment Date Type Specialty Care Team Description 04/28/2020 Office Visit Otolaryngology Man Akbar MD [address] [place] [address]. [place], [place] [address] 06/18/2020 Industrial Education Instructor Visit Endocrinology Diabetes & LamonteRegla alvarez, RD Metabolism [address] [place] [address] [phone] Health Maintenance Due Date Last Done Comments VARICELLA VACCINES (1 of 2 - 1988 2-dose childhood series) EYE EXAM 1997 DTaP,Tdap,and Td Vaccines (1 - 1998 Tdap) FOOT EXAM 2005 LDL-C 06/13/2020 06/13/2019 URINE MICROALBUMIN 06/13/2020 06/13/2019 HgA1C 07/02/2020 01/02/2020, 09/09/2019, 08/01/2019, Additional history exists CREATININE (SERUM) 03/04/2021 03/04/2020, 02/03/2020, 01/09/2020, Additional history exists PAP SMEAR 05/01/2022 05/01/2019 PNEUMOCOCCAL 0-64 YEARS COMBINED Completed 06/13/2019 SERIES INFLUENZA VACCINE Completed 09/09/2019 documented as of this encounter Results Not on filedocumented in this encounter Visit Diagnoses Diagnosis Secondary oligomenorrhea - Primary Scanty or infrequent menstruation Abdominal cramping Abdominal pain, unspecified site Female infertility associated with anovu lation Type 2 diabetes mellitus with complicati on, without long-term current use of insulin Obesity (BMI 30-39.9) Obesity, unspecified documented in this encounter Additional Health Concerns Infection Noted Time Resolved Time Contact - ESBL 10/31/2018 4:18 PM HEARING CARE PROFESSIONAL documented as of this encounter Insurance Payer Benefit Plan / Subscriber ID Effective Phone Address T e Group [facility] [id number] 2019-Prese Medic are Adv HEALTHCARE - HEALTHCARE DUAL nt H MO MANAGED COMPLETE HMO MEDICARE [employer] [place] xxxxxxxxx 2020-Prese Medicaid HEALTHCARE COMM PLUS nt PLAN - MANAGED MEDICAID documented as of this encounter Advance Directives Name Relationship Healthcare Agent Communication Relationship Miranda Morales Sibling Primary healthcare agent Michelet Brower Significant Other First alternate [phone] healthcare agent (Mobile)
--- OUTSIDE RECORDS SUMMARY | 2020-03-17 13:26 | XMS REPORT | Summary of Care ---
:1985 Author Organization [address] [address] Care Team Providers Name Role Phone DannyMohantaylor Tanner Insurance Hmo GABI Alvarez Primary Care Provider Reason for Visit Reason Comments INFERTILITY Pelvic Pain Encounter Details Date Type Department Care Team Description 03/05/2020 Telemedicine Visit [facility] Agustin, Claritza, Mei ndyaw oligomenorrhea (Primary Dx); Women's MD Abdominal cramping; [address] Female infert ility associated with anovulation; [facility] Type 2 diabetes mellitus with complicati on, without long-term current use of insulin; [address] [place] [address] Obesity (BMI 3 0-39.9) Drive, [address] [phone] [place], [place] [phone] Allergies Active Allergy Reactions Severity Noted Date Comments Ibuprofen Rash 04/19/2017 documented as of this encounter (statuses as of 03/05/2020) Medications Medication Sig Dispensed Refills Start Date End Date Status sod jnsjp-puhlug-znhgep Use 1 Bottle in 1 Each 0 [...] type azelastine 137 mcg (0.1 Use 1 [place] in 30 mL 5 02/21/2020 Active %) [...] Added automatically from request for linda brian [id number] Epigastric pain 07/25/2019 Overview: Added automatically from request for linda brian [id number] Type 2 diabetes mellitus with complication, without [...] mcg (0.1 %) nasal spray Use 1 [place] in each nostril 2 (two) times daily. [...] (two) times daily. 16 g 4 sod vfmlm-ofqtpc-vpclfy bottle (NEILMED SINUS RINSE COMPLETE) pkdv Use [...] Patient states compliance on her medical therapy. Coronavirus prevention/resources discussed. Handwashing for 20 seconds, social distancing, and sterilization were stressed. After visit summary (AVS ) documentation will be available through [employer] for this encounter. A total of 20 minutes was spent on the Telephone with the patient. Claritza Velez MD documented in this encounter Plan of Treatment Date Type Specialty Care Team Description 04/28/2020 Office Visit Otolaryngology Man Akbar MD [address] [place] [address]. [place], [place] [address] 06/18/2020 Wastewater Superintendent Visit Endocrinology Diabetes & LamonteRegla alvarez, RD Metabolism [address] [place], [place] [phone] Health Maintenance Due Date Last Done Comments [...] Time Contact - ESBL 10/31/2018 4:18 PM CATTLE KILLER documented as of this encounter Insurance Payer Benefit Plan / Subscriber ID Effective Phone Address T ype Group [facility] [id number] 2019-Prese Medic are Adv HEALTHCARE - HEALTHCARE DUAL nt H [place] MANAGED COMPLETE HMO MEDICARE [employer] [place] xxxxxxxxx 2020-Prese Medicaid HEALTHCARE COMM PLUS nt PLAN - MANAGED MEDICAID documented as of this encounter Advance Directives Name Relationship Healthcare Agent Communication Relationship Miranda Morales Sibling Primary healthcare agent Michelet Brower Significant Other First alternate [phone] healthcare agent (Mobile)
--- OUTSIDE RECORDS SUMMARY | 2020-03-17 13:26 | XMS REPORT | Summary of Care ---
:1985 Author Organization [facility] - Health Address [address] [place] [address] Care Team Providers Name Role Phone Klarissa Delgado Flores Insurance Hmo GABI Alvarez Primary Care Provider Reason for Referral Radiology Services (STAT) Status Reason Specialty Diagnoses / Referred By Referred To Procedures Contact Contact New Request Diagnostic Diagnoses LUQ abdominal pain Janet Burroughs Radiology Procedures XR JEANNIE Soliz MD [address] [place] [address] Reason for Visit Reason Comments Abdominal Pain Auth/Cert Status Reason Specialty Diagnoses / Referred By Referred To Procedures Contact Contact Emergency Medicine [facility] Em ergency Dept [address] [place] [address] [place] [address] Fax: Encounter Details Date Type Department Care Team Description 03/04/2020 Emergency ADC-Emergency Janet Burroughs S, LUQ abdom inal pain (Primary Dx); Department Constipation, unspecified constipation t ype [address] [place] [address] [address] [place] [address] MD3432 [place] [address] [phone] Allergies Active Allergy Reactions Severity Noted Date Comments Ibuprofen Rash 04/19/2017 documented as of this encounter (statuses as of 03/04/2020) Medications Medication Sig Dispensed Refills Start Date End Date Status sod jyjnp-uvkvjr-cshufn Use 1 Bottle in 1 Each 0 [...] type azelastine 137 mcg (0.1 Use 1 [place] in 30 mL 5 02/21/2020 Active %) [...] as of this encounter (statuses as of 03/04/2020) Active Problems Problem Noted Date Chronic idiopathic constipation 02/21/2020 Epistaxis 02/21/2020 Morbid obesity with body mass index of 40.0-49.9 01/02 Indigestion 07/25/2019 Overview: Added automatically from request for linda brian [id number] Epigastric pain 07/25/2019 Overview: Added automatically from request for linda brian [id number] Type 2 diabetes mellitus with complication, without [...] as of this encounter (statuses as of 03/04/2020) Immunizations Name Administration Dates Next Due Influenza [...] Sign Reading Time Taken Comments Blood Pressure 136/78 03/04/2020 1:45 AM CDT Pulse 73 03/04/2020 1:45 AM CDT Temperature 36.6 C (97.9 F) 03/04/2020 12:38 AM CDT Respiratory Rate 15 03/04/2020 1:45 AM CDT Oxygen Saturation 99% 03/04/2020 1:45 AM CDT Inhaled Oxygen Concentration - - Weight 106.6 kg (235 lb) 03/04/2020 12:38 AM CDT Height - - Body Mass Index 40.34 03/03/2020 8:11 AM CDT documented in this encounter Discharge Instructions Janet House MD - 03/04/2020 DIAGNOSIS Diagnoses that have been ruled out: None Diagnoses that are still under consideration: None Final diagnoses: LUQ abdominal pain Constipation, unspecified constipation type NO LIFE-THREATENING FINDINGS ON TODAY'S EXAM. PROCEDURES IN THE ER TODAY: Orders Placed This Encounter Procedures XR KUB CBC WITH DIFF COMP. METABOLIC PANEL (44721) LIPASE POCT TEST CBC WITH DIFFERENTIAL MEDICATIONS ADMINISTERED IN THE ER TODAY AND DISCHARGE MEDICATIONS: Orders Placed This Encounter Medications dicyclomine (BENTYL) injection 20 mg lactulose 10 gram/15 mL oral solution FOLLOW-UP RECOMMENDATIONS: RECOMMEND FOLLOW-UP WITH A PRIMARY CARE PROVIDER OR SPECIALIST IN 2-5 DAYS, ESPECIALLY IF NO IMPROVEMENT IN SYMPTOMS. MAY FOLLOW-UP WITH A PROVIDER OF YOUR CHOICE, SUCH : 1. A PHYSICIAN OF YOUR CHOICE 2. [facility], . LOCATIONS IN [facility] 3. [facility], [address] [place] [address]; [phone] OR, IF YOU WISH TO FOLLOW-UP WITHIN THE [facility], MAY TRY THESE OPTIONS (CLINIC APPOINTMENTS AVAILABLE ON WHBL-GA-BOSE BASIS): 1. SCHEDULE AN APPOINTMENT ONLINE AT WWW[facility] 2. OR CALL THE [facility] ACCESS [facility]ENTER AT OR 3. OR CALL YOUR [facility] PHYSICIAN'S OFFICE DIRECTLY IF YOU ARE ALREADY AN ESTABLISHED [facility] PATIENT. RETURN TO ER FOR WORSENING OF SYMPTOMS AttachmentsThe following attachments cannot be sent through Care Everywhere. Constipation, Treating (Namibian)Constipation (Adult) (Namibian)documented in this encounter Plan of Treatment Date Type Specialty Care Team Description 03/05/2020 Telemedicine Visit Obstetrics & Gynecology Claritza Staton MD [address] [place] [phone] 06/18/2020 Nailhead Puncher Visit Endocrinology Diabetes Brina Aburto RD & Metabolism [address] [place] [address] Name Type Priority Associated Diagnoses Date/Ti me XR KUB IMAGING STAT LUQ abdominal pain 0 1:26 AM CDT Health Maintenance Due Date Last Done [...] Name Priority Date/Time Associated Diagnosis Comme nts XR KUB STAT 03/04/2020 1:26 AM CDT LUQ abdominal ellen n Procedure Note - [facility], Radia nt Results Inft User - 03/04/2020 1:36 AM CDT EXAM: XR KUB HISTORY: Abdominal Pain, Blo ating COMPARISON: Acute abdomen se ryan 02/03/2020 FINDINGS: The bowel gas pattern is unr emarkable. Air is noted within nondilated small bowel and colonic loops. Sto ol and gas is noted in the partially visualized rectum. The visualized lung bases ar e clear. There is no acute osseous abnormality. Preliminary Report Dictated by Resident: Morena Haywood POCT TEST BHARATHI 03/04/2020 1:07 AM LUQ abdominal pain Results for this CDT procedure are i n the results section. CBC WITH DIFFERENTIAL STAT 03/04/2020 12:59 AM LUQ abdomina l pain Results for this CDT procedure are i n the results section. CBC WITH DIFFERENTIAL STAT 03/04/2020 12:59 AM LUQ abdomina l pain Results for this CDT procedure are i n the results section. COMP. METABOLIC PANEL STAT 03/04/2020 12:59 AM LUQ abdomina l pain Results for this ([id number]) CDT procedure are i n the results section. LIPASE STAT 03/04/2020 12:59 AM LUQ abdominal pain Re sults for this CDT procedure are i n the results section. documented in this encounter Results POCT TEST (03/04/2020 1:07 AM CDT) Pathologist Sig nature POCT PREG negative On board controls acceptable positive with C Line POCT PREG LOT # [id number] POCT PREG TEST DATE 05/26/2021 Specimen Urine - URINE, CLEAN CATCH CBC WITH DIFFERENTIAL (03/04/2020 12:59 AM CDT) Pathologist Sig [facility] WBC 9.64 4.30 - 11.10 [facility] 10*3/L HOS[facility] RBC 4.02 3.93 - 5.25 [facility] 10*6/L [facility] LABOR[facility] HGB 13.5 11.6 - 15.0 [facility] g/dL HOSPITAL [facility] HCT 39.5 35.7 - 45.2 % [facility] MCV 98.3 (H) 80.6 - 95.5 fL [facility] MCH 33.6 (H) 25.9 - 32.8 pg [facility] MCHC 34.2 31.6 - 35.1 [facility] g/dL [facility] RDW-SD 45.5 39.0 - 49.9 fL [facility] RDW-CV 12.6 12.0 - 15.5 % [facility] PLT 248 166 - 358 [facility] 10*3/L [facility] MPV 10.2 9.5 - 12.9 fL [facility] NRBC/100 WBC 0.0 0.0 - 10.0 /100 [facility] WBCs [facility] NRBC x10^3 <0.01 10*3/L [facility] GRAN MAT (NEUT) % 55.1 % [facility] IMM GRAN % 0.30 % [facility] LYMPH % 37.3 % [facility] MONO % 6.0 % [facility] EOS % 0.9 % [facility] BASO % 0.4 % [facility] GRAN MAT x10^3(ANC) 5.30 1.88 - 7.09 [facility] 10*3/uL [facility] LABORAT[facility] IMM GRAN x10^3 0.03 0.00 - 0.06 [facility] 10*3/uL [facility] LAB[facility] LYMPH x10^3 3.60 (H) 1.32 - 3.29 [facility] 10*3/uL [facility] LAB[facility] MONO x10^3 0.58 0.33 - 0.92 [facility] 10*3/uL [facility] LABOR[facility]ORY EOS x10^3 0.09 0.03 - 0.39 [facility] 10*3/uL [facility] LAB[facility] BASO x10^3 0.04 0.01 - 0.07 [facility] 10*3/uL [facility] LABOR[facility]ORY Specimen Blood - VENOUS Performing Organization Address City/[facility]/Zipcode Phone Number [facility] CLIA: [id number], [address] [place] [address] LIPASE (03/04/2020 12:59 AM CDT) [facility] LIPASE 47 0 - 220 U/L [facility] LABOR[facility]ORY Specimen Blood - VENOUS Performing Organization Address City/[facility]/Zipcode Phone Number [facility] CLIA: [id number], [address] [place] [address] 15 LABORATORY [facility] COMP. METABOLIC PANEL ([id number]) (03/04/2020 12:59 AM CDT) Pathologist Sig nature NA 141 135 - 145 [facility] mmol/L [facility] K 3.9 3.5 - 5.0 [facility] mmol/L [facility] LAB[facility] CL 104 98 - 108 mmol/L [facility] CO2 TOTAL 27 23 - 31 mmol/L [facility] AGAP 10 2 - 16 [facility] BUN 10 7 - 23 mg/dL [facility] GLUCOSE 165 (H) 70 - 110 mg/dL [facility] LAB[facility] CREATININE 0.52 0.50 - 1.04 [facility] mg/dL [facility] LABOR[facility] TOTAL BILI 0.4 0.1 - 1.1 mg/dL [facility] LAB[facility] CALCIUM 9.5 8.6 - 10.6 [facility] mg/dL [facility] LABOR[facility] T PROTEIN 7.5 6.3 - 8.2 g/dL [facility] LAB[facility] ALBUMIN 4.4 3.5 - 5.0 g/dL [facility] LABOR[facility]ORY ALK PHOS 60 34 - 122 U/L [facility] ALTv 29 5 - 35 U/L [facility] AST(SGOT) 21 13 - 40 U/L [facility] LABOR[facility]ORY eGFR Calculation 135.8 mL/min/1.73m2 [facility] ([facility] LABORATORY Spanish) eGFR Calculation 164.6 mL/min/1.73m2 [facility] ([facility]) [facility] LABORATORY Specimen Blood - VENOUS Narrative Performed At Association of Glomerular Filtration Rate (GFR) [facility] and Staging of Kidney Disease* [...] tests). Performing Organization Address City/State/Zipcode Phone Number [facility] CLIA: [id number], [address] [place], [place] [address] documented in this encounter Visit Diagnoses Diagnosis LUQ abdominal pain - Primary Abdominal pain, left upper quadrant Constipation, unspecified constipation t ype documented in this encounter Administered Medications Medication Order MAR Action Action Date Dose Rate Site dicyclomine (BENTYL) Given 03/04/2020 1:28 AM 20 mg Right injection 20 mg CDT Dorsogluteal-IM 20 mg, Intramuscular, ONCE, 1 dose, Mon03/04/20 at 0215, Routine documented in this encounter Additional Health Concerns Infection Noted Time Resolved Time Contact - ESBL 10/31/2018 4:18 PM CAREER DEVELOPMENT CONSULTANT documented as of this encounter Insurance Payer Benefit Plan / Subscriber ID Effective Phone Address T ype Group Dates [facility] [id number] 2019-Prese Medic are Adv HEALTHCARE - HEALTHCARE DUAL nt H MO MANAGED COMPLETE O MEDICARE [employer] [place] STAR xxxxxxxxx 2020-Prese Medicaid HEALTHCARE COMM PLUS nt PLAN - MANAGED MEDICAID documented as of this encounter Advance Directives Name Relationship Healthcare Agent Communication Relationship Miranda Morales Sibling Primary healthcare agent Michelet Brower Significant Other First alternate [phone] healthcare agent (Mobile) "
--- OUTSIDE RECORDS SUMMARY | 2020-03-17 13:27 | XMS REPORT | Summary of Care ---
:1985 Author Organization [facility] - [facility] Address [address] [place] [address] Care Team Providers Name Role Phone RafykarisKlarissa Flores Insurance Hmo GABI Alvarez Primary Care Provider Reason for Visit Reason Comments Assessment Encounter Details Date Type Department Care Team Description 03/09/2020 Telephone [facility] Pediatric and Alex Echeverria MD Assessment Adult Primary Care- [address] [place] [address] [address] [facility] , [address] [place] [address] Allergies Active Allergy Reactions Severity Noted Date Comments Ibuprofen Rash 04/19/2017 documented as of this encounter (statuses as of 03/10/2020) Medications Medication Sig Dispensed Refills Start Date End Date Status sod wpjrx-aodybk-qzflst Use 1 Bottle in 1 Each 0 [...] of infertility associated each month. with anovulation azelastine 137 mcg (0.1 Use 1 [place] in 30 mL 5 02/21/2020 Active %) [...] as of this encounter (statuses as of 03/10/2020) Active Problems Problem Noted Date Chronic idiopathic constipation 02/21/2020 Epistaxis 02/21/2020 Morbid obesity with body mass index of 40.0-49.9 01/02 Indigestion 07/25/2019 Overview: Added automatically from request for linda brian [id number] Epigastric pain 07/25/2019 Overview: Added automatically from request for linda brian [id number] Type 2 diabetes mellitus with complication, without [...] as of this encounter (statuses as of 03/10/2020) Immunizations Name Administration Dates Next Due Influenza [...] 04/28/2020 Office Visit Otolaryngology Man Akbar MD [address] [place] [address]. 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 [id number] 2019-Prese Medic are Adv HEALTHCARE - HEALTHCARE DUAL nt H MO MANAGED COMPLETE HMO MEDICARE [facility] STAR xxxxxxxxx 2020-Prese Medicaid HEALTHCARE COMM PLUS nt PLAN - MANAGED MEDICAID documented as of this encounter Advance Directives Name Relationship Healthcare Agent Communication Relationship Miranda Morales Sibling Primary healthcare agent Michelet Brower Significant Other First alternate [phone] healthcare agent (Mobile)
--- OUTSIDE RECORDS SUMMARY | 2020-03-17 13:27 | XMS REPORT | Summary of Care ---
:1985 Author Organization [facility] - [facility] Address [address] [place] [address] Care Team Providers Name Role Phone RafykarisKlarissa Flores Insurance Hmo GABI Alvarez Primary Care Provider Reason for Visit Reason Comments Refill Request Encounter Details Date Type Department Care Team Description 03/11/2020 Telephone [facility] Family Kathy Alvarez FNP Refill Request [place] [address] [facility] [address] [place] [address] 161 [place] [phone] Allergies Active Allergy Reactions Severity Noted Date Comments Ibuprofen Rash 04/19/2017 documented as of this encounter (statuses as of 03/11/2020) Medications Medication Sig Dispensed Refills Start Date End Date Status sod zfofb-gpqtii-sndvon Use 1 Bottle in 1 Each 0 [...] anovulation azelastine 137 mcg (0.1 Use 1 [place] in 30 mL 5 02/21/2020 Active %) [...] daily as constipation type needed for Constipation. busPIRone 7.5 mg TAKE 1 TABLET 180 tablet 0 03/11/2020 Active tabletIndications: BY MOUTH TWICE Medication refill DAILY NEEDED FOR ANXIETY documented as of this encounter (statuses as of 03/11/2020) Active Problems Problem Noted Date Chronic idiopathic constipation 02/21/2020 Epistaxis 02/21/2020 Morbid obesity with body mass index of 40.0-49.9 01/02 Indigestion 07/25/2019 Overview: Added automatically from request for linda brian [id number] Epigastric pain 07/25/2019 Overview: Added automatically from request for linda brian [id number] Type 2 diabetes mellitus with complication, without [...] as of this encounter (statuses as of 03/11/2020) Immunizations Name Administration Dates Next Due Influenza [...] 04/28/2020 Office Visit Otolaryngology Man Akbar MD [address] [place] [address] [phone] 06/04/2020 Telemedicine Visit Obstetrics & Gynecology Claritza Velez MD [address] [place], [place] [address] [phone] 06/18/2020 Emblem Cutter Visit Endocrinology Diabetes & Lamonte, Regla, RD Metabolism [address] [place] [address] [phone] Health Maintenance Due Date Last Done Comments [...] filedocumented in this encounter Visit Diagnoses Diagnosis Medication refill Issue of repeat prescriptions documented in this encounter Additional Health Concerns Infection Noted Time Resolved Time Contact - ESBL 10/31/2018 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 documented as of this encounter Insurance Payer Benefit Plan / Subscriber ID Effective Phone Address T ype Group [facility] Personal Estate Manager [id number] 2019-Prese Medic are Adv HEALTHCARE - HEALTHCARE DUAL nt H MO MANAGED COMPLETE O MEDICARE [facility] STAR xxxxxxxxx 2020-Prese Medicaid HEALTHCARE COMM PLUS nt PLAN - MANAGED MEDICAID documented as of this encounter Advance Directives Name Relationship Healthcare Agent Communication Relationship Miranda Adkins Primary healthcare agent Michelet Brower Significant Other First alternate [phone] healthcare agent (Mobile)
--- OUTSIDE RECORDS SUMMARY | 2020-03-17 13:27 | XMS REPORT | Summary of Care ---
:1985 Author Organization [facility] - [facility] Address [address] [place] [address] Care Team Providers Name Role Phone RafykarisKlarissa Flores Insurance Hmo GABI Alvarez Primary Care Provider Reason for Visit Reason Comments Assessment Encounter Details Date Type Department Care Team Description 03/06/2020 Telephone [facility] Pediatric and Ulises Smith MD Assessment Adult Primary Care- [address] [place] [address] [place] [address] , [phone] [address] [place] [address] Allergies Active Allergy Reactions Severity Noted Date Comments Ibuprofen Rash 04/19/2017 documented as of this encounter (statuses as of 03/06/2020) Medications Medication Sig Dispensed Refills Start Date End Date Status sod mlrjg-kefawg-uneemz Use 1 Bottle in 1 Each 0 [...] type azelastine 137 mcg (0.1 Use 1 [place] in 30 mL 5 02/21/2020 Active %) [...] as of this encounter (statuses as of 03/06/2020) Active Problems Problem Noted Date Chronic idiopathic constipation 02/21/2020 Epistaxis 02/21/2020 Morbid obesity with body mass index of 40.0-49.9 01/02 Indigestion 07/25/2019 Overview: Added automatically from request for linda brian [id number] Epigastric pain 07/25/2019 Overview: Added automatically from request for linda brian [id number] Type 2 diabetes mellitus with complication, without [...] as of this encounter (statuses as of 03/06/2020) Immunizations Name Administration Dates Next Due Influenza [...] 04/28/2020 Office Visit Otolaryngology Man Akbar MD [address] [place] [address]. 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 documented as of this encounter Insurance Payer Benefit Plan / Subscriber ID Effective Phone Address T ype Group [facility] [id number] 2019-Prese Medic are Adv HEALTHCARE - HEALTHCARE DUAL nt H MO MANAGED COMPLETE HMO MEDICARE [facility] [place] ST[place] xxxxxxxxx 2020-Prese Medicaid HEALTHCARE COMM PLUS nt PLAN - MANAGED MEDICAID documented as of this encounter Advance Directives Name Relationship Healthcare Agent Communication Relationship Miranda Morales Sibling Primary healthcare agent Michelet Brower Significant Other First alternate [phone] healthcare agent (Mobile)
--- OUTSIDE RECORDS SUMMARY | 2020-03-17 13:27 | XMS REPORT | Summary of Care ---
:1985 Author Organization [facility] - Health Address [address] [place] [address] Care Team Providers Name Role Phone RafykarisKlarissa Flores Insurance Hmo GABI Alvarez Primary Care Provider Reason for Visit Reason Comments Hospital F/U ED Encounter Details Date Type Department Care Team Description 03/05/2020 Patient Outreach [facility] Community Rita Rodriguez, Hosp ital F/U (ED) [facility]- RN [place] [address] Allergies Active Allergy Reactions Severity Noted Date Comments Ibuprofen Rash 04/19/2017 documented as of this encounter (statuses as of 03/05/2020) Medications Medication Sig Dispensed Refills Start Date End Date Status sod ztkdg-tcuama-lpjlrn Use 1 Bottle in 1 Each 0 [...] type azelastine 137 mcg (0.1 Use 1 [place] in 30 mL 5 02/21/2020 Active %) [...] Added automatically from request for linda brian [id number] Epigastric pain 07/25/2019 Overview: Added automatically from request for linda brian [id number] Type 2 diabetes mellitus with complication, without [...] encounter Progress Notes Rita Rodriguez RN - 03/05/2020 4:49 PM CDTDate of Service: 03/04/2020 Diagnoses: Abdominal pain, left upper quadrant Constipation Are you having any symptoms? no. She is feeling better. Do you have all of your medications? Yes. Have you scheduled a follow up appointment with your physician? no. Do you need assistance with scheduling a follow up appointment? No. She will schedule. Do you have transportation to your appointment? Yes. Do you have any questions or concerns? No. Rita Rodriguez RN, BSN Snuff Packing Machine Operator-NICOLAS TEAM [phone] documented in this encounter Plan of Treatment Date Type Specialty Care Team Description 04/28/2020 Office Visit Otolaryngology Man Akbar MD [address] [place] [address]. 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 documented as of this encounter Insurance Payer Benefit Plan / Subscriber ID Effective Phone Address T e Group Dates [facility] [id number] 2019-Prese Medic are Adv HEALTHCARE - HEALTHCARE DUAL nt H MO MANAGED COMPLETE HMO MEDICARE [facility] [place] STAR xxxxxxxxx 2020-Prese Medicaid HEALTHCARE COMM PLUS nt PLAN - MANAGED MEDICAID documented as of this encounter Advance Directives Name Relationship Healthcare Agent Communication Relationship Miranda Morales Sibling Primary healthcare agent Michelet Brower Significant Other First alternate [phone] healthcare agent (Mobile)
--- OUTSIDE RECORDS SUMMARY | 2020-03-17 13:28 | XMS REPORT | Summary of Care ---
:1985 Author Organization [facility] - Health Address [address] [place] [address] Care Team Providers Name Role Phone Danny Klarissa L Insurance Hmo GABI Alvarez Primary Care Provider Reason for Visit Reason Comments Headache Auth/Cert Status Reason Specialty Diagnoses / Referred By Referred To Procedures Contact Contact Emergency Medicine Diagnoses headache [facility] [address] [place] [address] Fax: Encounter Details Date Type Department Care Team Description 03/13/2020 Emergency [facility]-Emergency Depart ment Keisha Pichardo, DO [address] [place] [address] [place] [address] [phone] Allergies Active Allergy Reactions Severity Noted Date Comments Ibuprofen Rash 04/19/2017 documented as of this encounter (statuses as of 03/13/2020) Medications Medication Sig Dispensed Refills Start Date End Date Status sod jewns-ddyahi-pegtse Use 1 Bottle in 1 Each 0 [...] anovulation azelastine 137 mcg (0.1 Use 1 [place] in 30 mL 5 02/21/2020 Active %) [...] as of this encounter (statuses as of 03/13/2020) Active Problems Problem Noted Date Chronic idiopathic constipation 02/21/2020 Epistaxis 02/21/2020 Morbid obesity with body mass index of 40.0-49.9 01/02 Indigestion 07/25/2019 Overview: Added automatically from request for linda brian [id number] Epigastric pain 07/25/2019 Overview: Added automatically from request for linda brian [id number] Type 2 diabetes mellitus with complication, without [...] as of this encounter (statuses as of 03/13/2020) Immunizations Name Administration Dates Next Due Influenza [...] Sign Reading Time Taken Comments Blood Pressure 143/94 03/13/2020 8:34 PM CDT Pulse 96 03/13/2020 8:34 PM CDT Temperature 36.9 C (98.5 F) 03/13/2020 8:34 PM CDT Respiratory Rate 20 03/13/2020 8:34 PM CDT Oxygen Saturation 100% 03/13/2020 8:34 PM CDT Inhaled Oxygen Concentration - - Weight 104.3 kg (230 lb) 03/13/2020 8:34 PM CDT Height 162.6 cm (5' 4") 03/13/2020 8:34 PM CDT Body Mass Index 39.48 03/13/2020 8:34 PM CDT documented in this encounter Discharge Instructions Keisha Aleman, - 03/13/2020DIAGNOSIS 1. Sinusitis NO LIFE-THREATENING FINDINGS ON TODAY'S EXAM. PROCEDURES IN THE ER TODAY: None MEDICATIONS ADMINISTERED IN THE ER TODAY: None YOUR PRESCRIPTIONS AND QXVG-FGW-ATLMSKS MEDICATION RECOMMENDATIONS: You may use over the counter decongestants such as devika-D or claritin-D. You may use a sinus wash several times a day to help with your symptoms. SPECIAL CARE INSTRUCTIONS: None FOLLOW-UP RECOMMENDATIONS: RECOMMEND FOLLOW-UP WITH A PRIMARY CARE PROVIDER OR SPECIALIST IN 2-5 DAYS, ESPECIALLY IF NO IMPROVEMENT IN SYMPTOMS. TO FOLLOW-UP WITHIN THE [facility], TRY THESE OPTIONS (CLINIC APPOINTMENTS AVAILABLE ON [id number] BASIS): 1. SCHEDULE AN APPOINTMENT ONLINE AT WWW.[facility] 2. OR CALL THE [facility] AT OR 3. OR CALL YOUR [facility] PHYSICIAN'S OFFICE DIRECTLY IF YOU ARE ALREADY AN ESTABLISHED [facility] PATIENT. OR, YOU MAY FOLLOW-UP WITH A PROVIDER OF YOUR CHOICE, SUCH : 1. A PHYSICIAN OF YOUR CHOICE 2. [facility] AND [facility], . LOCATIONS IN [facility] 3. [facility], [address] [place] [address]; [phone] RETURN TO ER FOR WORSENING OF SYMPTOMS. AttachmentsThe following attachments cannot be sent through Care Everywhere. Sinusitis, Acute (Wolof)Sinusitis, Self-Care for (Wolof)documented in this encounter Plan of Treatment Date Type Specialty Care Team Description 04/28/2020 Office Visit Otolaryngology Man Akbar MD [address] [place] [address] Blvd. 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
--- OUTSIDE RECORDS SUMMARY | 2020-03-17 13:28 | XMS REPORT | Summary of Care ---
:1985 Author Organization [address] [address] Care Team Providers Name Role Phone Klarissa Delgado Flores Insurance Hmo GABI Alvarez Primary Care Provider Reason for Visit Reason Comments ED F/U Encounter Details Date Type Department Care Team Description 03/14/2020 Transition of Care [facility] Yair Goldstein RN ED F/U [address] [address] Allergies Active Allergy Reactions Severity Noted Date Comments Ibuprofen Rash 04/19/2017 documented as of this encounter (statuses as of 03/14/2020) Medications Medication Sig Dispensed Refills Start Date End Date Status sod ucqmt-jwgaaf-kytgpn Use 1 Bottle in 1 Each 0 [...] anovulation azelastine 137 mcg (0.1 Use 1 [place] in 30 mL 5 02/21/2020 Active %) [...] as of this encounter (statuses as of 03/14/2020) Active Problems Problem Noted Date Chronic idiopathic constipation 02/21/2020 Epistaxis 02/21/2020 Morbid obesity with body mass index of 40.0-49.9 01/02 Indigestion 07/25/2019 Overview: Added automatically from request for linda torres [id number] Epigastric pain 07/25/2019 Overview: Added automatically from request for linda brian [id number] Type 2 diabetes mellitus with complication, without [...] as of this encounter (statuses as of 03/14/2020) Immunizations Name Administration Dates Next Due Influenza [...] 04/28/2020 Office Visit Otolaryngology Man Akbar MD [address] [place] [address]. 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 documented as of this encounter Insurance Payer Benefit Plan / Subscriber ID Effective Phone Address T e Group Dates [facility] [id number] 2019-Prese Medic are Adv HEALTHCARE - HEALTHCARE DUAL nt H MO MANAGED COMPLETE HMO MEDICARE [employer] [place] STAR xxxxxxxxx 2020-Prese Medicaid HEALTHCARE COMM PLUS nt PLAN - MANAGED MEDICAID documented as of this encounter Advance Directives Name Relationship Healthcare Agent Communication Relationship Miranda Morales Sibling Primary healthcare agent Michelet Brower Significant Other First alternate [phone] healthcare agent (Mobile)
--- NOTE | 2020-03-17 13:29 | ER ---
Nurse's Notes [facility] Name: Mckenna Haney Age: 35 yrs Sex: Female : 1985 Arrival Date: 03/17/2020 Time: 12:56 Bed 14 Private MD: Diagnosis: Acute sinusitis Presentation: 03/17 13:05 Chief complaint: Patient states: Right ear pain with AGUILERA and pressure to face for 3 ll1 days. + nasal congestion. No fever. Coronavirus screen: Proceed with normal triage. Patient reports a cough. Patient denies shortness of breath or difficulty breathing. Patient denies measured and/or subjective temperature greater than 100.4F prior to today's visit. Patient denies travel on a cruise ship or to a country the [facility] currently lists as an affected area. Patient denies contact with known and/or suspected case of COVID-19. Ebola Screen: Patient denies travel to an Ebola-affected area in the 21 days before illness onset. Initial Sepsis Screen: Does the patient meet any 2 criteria? No. Patient's initial sepsis screen is negative. Risk Assessment: Do you want to hurt yourself or someone else? Patient reports no desire to harm self or others. Onset of symptoms was March 14, 2020. 13:05 Method Of Arrival: Ambulatory ll1 13:05 Acuity: LILO 4 ll1 13:42 Initial Sepsis Screen: Does the patient have a suspected source of infection? No. ll1 Patient's initial sepsis screen is negative. 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 - Social history:: Patient/guardian denies using alcohol, street drugs, IV drugs, tobacco products, Smoking status: Patient denies any tobacco usage or history of. Screenin:41 Abuse screen: Denies threats or abuse. Nutritional screening: No deficits noted. ll1 Tuberculosis screening: No symptoms or risk factors identified. Fall Risk None identified. Total Mccabe Fall Scale indicates No Risk (0-24 pts). Assessment: 13:40 General: Appears in no apparent distress. Behavior is calm, cooperative. Pain: ll1 Complains of pain in right ear Pain currently is 8 out of 10 on a pain scale. Pain began 2-3 days ago. Neuro: No deficits noted. Cardiovascular: No deficits noted. Respiratory: No deficits noted. Breath sounds are clear bilaterally. Denies cough, shortness of breath. GI: No deficits noted. EENT: Reports nasal congestion right ear pain for 3 days. Vital Signs: 13:05 BP 128 / 82; Pulse 89; Resp 18; Temp 98.9; Pulse Ox 100% ; Pain 9/10; ll1 13:43 BP 118 / 76; Pulse 81; Resp 18; Pulse Ox 99% ; ll1 ED Course: 12:56 Patient arrived in ED. mr 13:01 Clair Tadeo FNP-C is [facility]. kb 13:01 David Gabriel MD is Attending Physician. kb 13:06 Triage completed. ll1 13:07 Arm band placed on Patient placed in an exam room, on a stretcher. ll1 13:41 Patient has correct armband on for positive identification. Bed in low position. Call ll1 light in reach. Side rails up X 1. Pulse ox on. NIBP on. 13:42 No provider procedures requiring assistance completed. Patient did not have IV access ll1 during this emergency room visit. Administered Medications: No medications were administered Outcome: 13:28 Discharge ordered by . kb 13:43 Discharged to home ambulatory. ll1 13:43 Condition: stable 13:43 Discharge instructions given to patient, Instructed on discharge instructions, follow up and referral plans. medication usage, Demonstrated understanding of instructions, follow-up care, medications. 13:44 Patient left the ED. ll1 Signatures: Clair Tadeo FNP-C FNP-Alexia James Graciela zelaya Marisol Fox, RN RN ll1
--- NOTE | 2020-03-17 13:29 | EDPHYS ---
Physician Documentation [facility] Name: Mckenna Haney Age: 35 yrs Sex: Female : 1985 Arrival Date: 03/17/2020 Time: 12:56 Bed 14 Private MD: ED Physician David Gabriel HPI: 03/17 13:30 This 35 yrs old Female presents to ER via Ambulatory with complaints of Ear kb Pain. 13:30 The patient presents with pain, moderate. The complaints affect the right ear. Onset: kb The symptoms/episode began/occurred 3 day(s) ago. Modifying factors: The symptoms are alleviated by nothing, the symptoms are aggravated by nothing. Associated signs and symptoms: Pertinent positives: sinus trouble. Severity of symptoms: At their worst the symptoms were moderate in the emergency department the symptoms are unchanged. The patient has not experienced similar symptoms in the past. The patient has not recently seen a physician. Pt reports right ear pain and pressure in sinuses for 3 days. Denies fever. . 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 - Social history:: Patient/guardian denies using alcohol, street drugs, IV drugs, tobacco products, Smoking status: Patient denies any tobacco usage or history of. ROS: 13:29 Constitutional: Negative for fever, chills, and weight loss, Neck: Negative for injury, kb pain, and swelling, Cardiovascular: Negative for chest pain, palpitations, and edema, Respiratory: Negative for shortness of breath, cough, wheezing, and pleuritic chest pain, Abdomen/GI: Negative for abdominal pain, nausea, vomiting, diarrhea, and constipation, Back: Negative for injury and pain, MS/Extremity: Negative for injury and deformity, Skin: Negative for injury, rash, and discoloration, Neuro: Negative for headache, weakness, numbness, tingling, and seizure. 13:29 ENT: Positive for ear pain, sinus congestion. Exam: 13:29 Constitutional: This is a well developed, well nourished patient who is awake, alert, kb and in no acute distress. ENT: Nares patent. No nasal discharge, no septal abnormalities noted. Tympanic membranes are normal and external auditory canals are clear. Oropharynx with no redness, swelling, or masses, exudates, or evidence of obstruction, uvula midline. Mucous membranes moist. Neck: Trachea midline, no thyromegaly or masses palpated, and no cervical lymphadenopathy. Supple, full range of motion without nuchal rigidity, or vertebral point tenderness. No Meningismus. Chest/axilla: Normal chest wall appearance and motion. Nontender with no deformity. No lesions are appreciated. Cardiovascular: Regular rate and rhythm with a normal S1 and S2. No gallops, murmurs, or rubs. Normal PMI, no JVD. No pulse deficits. Respiratory: Lungs have equal breath sounds bilaterally, clear to auscultation and percussion. No rales, rhonchi or wheezes noted. No increased work of breathing, no retractions or nasal flaring. Abdomen/GI: Soft, non-tender, with normal bowel sounds. No distension or tympany. No guarding or rebound. No evidence of tenderness throughout. Skin: Warm, dry with normal turgor. Normal color with no rashes, no lesions, and no evidence of cellulitis. MS/ Extremity: Pulses equal, no cyanosis. Neurovascular intact. Full, normal range of motion. Neuro: Awake and alert, GCS 15, oriented to person, place, time, and situation. Cranial nerves II-XII grossly intact. Motor strength 5/5 in all extremities. Sensory grossly intact. Cerebellar exam normal. Normal gait. 13:29 Head/face: Sinus tenderness, that is moderate, is located over the right frontal sinus, left frontal sinus, right maxillary sinus and left maxillary sinus. Vital Signs: 13:05 BP 128 / 82; Pulse 89; Resp 18; Temp 98.9; Pulse Ox 100% ; Pain 9/10; ll1 13:43 BP 118 / 76; Pulse 81; Resp 18; Pulse Ox 99% ; ll1 MDM: 13:09 Patient medically screened. kb 13:29 Data reviewed: vital signs, nurses notes. Data interpreted: Pulse oximetry: on room air kb is 100 %. Interpretation: normal. Counseling: I had a detailed discussion with the patient and/or guardian regarding: the historical points, exam findings, and any diagnostic results supporting the discharge/admit diagnosis, the need for outpatient follow up, a family practitioner, to return to the emergency department if symptoms worsen or persist or if there are any questions or concerns that arise at home. Administered Medications: No medications were administered Disposition: 16:24 Co-signature as Attending Physician, David Gabriel MD I agree with the assessment and kdr plan of care. Disposition: 03/17/20 13:28 Discharged to Home. Impression: Acute sinusitis. - Condition is Stable. - Discharge Instructions: Sinusitis, Adult, Sawm-jh-Cnwt. - Medication Reconciliation Form, Thank You Letter, Antibiotic Education, Prescription Opioid Use form. - Follow up: Emergency Department; When: As needed; Reason: Worsening of condition. Follow up: Private Physician; When: 2 - 3 days; Reason: Recheck today's complaints, Continuance of care, Re-evaluation by your physician. - Notes: Take Mucinex D as discussed Signatures: Clair Taedo, EMERGENCY DISPATCH OPERATOR-C EMERGENCY DISPATCH OPERATOR-Ckb David Gabriel MD MD kdr Marisol Fox RN RN ll1 Corrections: (The following items were deleted from the chart) 13:44 13:28 03/17/2020 13:28 Discharged to Home. Impression: Acute sinusitis. Condition is ll1 Stable. Forms are Medication Reconciliation Form, Thank You Letter, Antibiotic Education, Prescription Opioid Use. Follow up: Emergency Department; When: As needed; Reason: Worsening of condition. Follow up: Private Physician; When: 2 - 3 days; Reason: Recheck today's complaints, Continuance of care, Re-evaluation by your physician. kb
[2020-03-17 13:52] VITALS: TEMP 98.9
[2020-03-17 14:04] VITALS: BP 118/76; O2SAT 99
== END 2020-03-17 13:44 | disposition home or self-care (01) ==
LOC: ER 12:52
DX: J01.90 Acute sinusitis, unspecified (principal); I10 Essential (primary) hypertension; Z88.6 Allergy status to analgesic agent

== ENCOUNTER 2020-03-24 10:52 | Emergency (ER) | payer OTHER ==
--- OUTSIDE RECORDS SUMMARY | 2020-03-24 10:56 | XMS REPORT ---
[...] Status Dosage System Date Date Dicyclomine HCl [facility] 23690196668 20 MG Orally May Active 1 tablet as Four times a 09, 19, needed for day 2018 2018 stomach pain Triamcinolone ND 05572225559 0.1 % April Active 1 appl ication Acetonide Externally 28, to affected Twice a day 2019 areas Loratadine ND 47001652088 10 MG Orally Active 1 ta blet Once a day Lisinopril ND 23849912952 5 MG Orally Active 1 tab let Once a day Farxiga ND 77793858995 5mg Orally May Active 1 tablet Once daily , 2018 Lactulose [facility] 73706634050 10 GM/15ML May Active 15-30 m l Orally Once to , twice a day as 2019 2019 needed for constipation BusPIRone HCl ND 61359350089 7.5 MG Orally April 18, Active 1 tablet as Twice a day 2018 needed for anxiety Vitamin D [facility] 21483891271 2000 UNIT Active 1 tablet Orally Once a day Atorvastatin [facility] 21492211599 10 MG Orally Active 1 tablet Calcium Once a day Orphenadrine [facility] [address]-44 100 MG Orally Active as directed Citrate ER Alogliptin [facility] 01866381128 25 MG Orally April Active 1 ta blet Benzoate Once a day for , diabetes 2019 Pioglitazone HCl [facility] 77921460051 15 MG Orally May Active 1 tablet Once a day for 05, diabetes 2019 GlipiZIDE XL [facility] 74242425138 5 MG Orally Active 1 t ablet with Once a day food Amoxicillin [facility] 75342488704 500 MG Orally Active 1 capsule Twice a day Meclizine HCl [facility] 42807521241 25 MG Orally April Active 1 tablet as Twice daily 07, needed for 2019 dizziness Results No Known Results Summary Purpose eClinicalWorks Submission
--- OUTSIDE RECORDS SUMMARY | 2020-03-24 10:56 | XMS REPORT ---
[...] End Status Dosage System Date Date Atorvastatin [facility] 51783265409 10 MG Orally Active 1 tablet Calcium Once a day Meclizine HCl ND 57944335563 25 MG Orally April Active 1 tablet as bid prn 07, needed 2019 Alogliptin ND 55046382901 25 MG Orally April Active 1 ta blet Benzoate Once a day for 28, diabetes 2019 Amoxicillin ND 68627064125 500 MG Orally Active 1 capsule Twice a day Vitamin D [facility] 04303931213 2000 UNIT Active 1 tablet Orally Once a day Orphenadrine [facility] [address]-95 100 MG Orally Active as directed Citrate ER Lisinopril ND 61030867150 5 MG Orally Active 1 tab let Once a day GlipiZIDE XL [facility] 87764126587 5 MG Orally Active 1 t ablet with Once a day food Januvia [facility] 92242276855 100 MG Orally Inactive 1 tab let Once a day Loratadine [facility] 04556546372 10 MG Orally Active 1 ta blet Once a day BusPIRone HCl [facility] 09490748455 7.5 MG Orally April 18, Active 1 tablet as Twice a day 2018 needed for anxiety Triamcinolone [facility] 07640957745 0.1 % April Active 1 appl ication Acetonide Externally 28, to affected Twice a day 2019 areas Results No Known Results Summary Purpose eClinicalWorks Submission
--- OUTSIDE RECORDS SUMMARY | 2020-03-24 10:56 | XMS REPORT ---
:1985 Author Organization [facility] t Address [address] [place] [address] Care Team Providers Name Role Phone Unavailable [...] Millender 00:00: 00:00 00 :00 Farxiga Farxiga 2018-0 2019- No Klarissa 1 tablet 7-13 08-12 [place] 00:00: 00:00 00 :00 Pioglitazon Pioglitazon 2019-0 Yes Klarissa 1 table t e HCl e HCl 7-05 [place]ender 00:00: 00 Alogliptin Alogliptin 2019-0 Yes Klarissa 1 tablet Benzoate Benzoate 6-28 [...] XL Millender with food Loratadine Loratadine Yes Klraissa 1 tablet Millender Encounters Start End Encounter Admission Attending Care Care Encounter Date/Time Date/Time Type Type Clinicians Facility Department ID 2019-07-01 2019-07-01 Outpatient Abbie Leiva 2 [id number] 18:18:00 18:18:00 [facility] Medicine 2019-06-28 2019-06-28 [facility] [id number] 10:00:00 10:00:00 [facility] 2019-06-19 2019-06-19 [facility] [id number] 15:21:00 15:21:00 [facility] 2019-06-11 2019-06-11 [facility] [id number] 08:10:00 08:10:00 [facility] 2019-06-10 2019-06-10 [facility] [id number] 12:16:00 12:16:00 [facility] 2019-06-07 2019-06-07 [facility] [id number] 15:40:00 15:40:00 [facility] 2019-06-06 2019-06-06 [facility] [id number] 08:48:00 08:48:00 [facility] 2019-06-04 2019-06-04 [id number] 16:20:00 16:20:00 [facility] 2019-05-31 2019-05-31 [facility] [id number] 10:20:00 10:20:00 [facility] 2019-05-24 2019-05-24 [facility] [id number] 11:52:00 11:52:00 [facility] 2019-05-24 2019-05-24 [facility] [id number] 11:00:00 11:00:00 [facility] 2019-05-13 2019-05-13 [facility] [id number] 08:12:00 08:12:00 [facility] 2019-05-02 2019-05-02 [facility] [id number] 09:40:00 09:40:00 [facility]
--- OUTSIDE RECORDS SUMMARY | 2020-03-24 10:56 | XMS REPORT ---
[...] Start Date End Date Status Dosage Alex [facility] 74299736132 100 MG Orally Active 1 tabl et Once a day Results No Known Results Summary Purpose eClinicalWorks Submission
--- OUTSIDE RECORDS SUMMARY | 2020-03-24 10:56 | XMS REPORT ---
[...] Status Dosage System Date Date Loratadine ND 32128256397 10 MG Orally Active 1 ta blet Once a day Vitamin D ND 22452192886 2000 UNIT Active 1 tablet Orally Once a day Meclizine HCl ND 49473803448 25 MG Orally April Active 1 tablet as Twice daily 07, needed for 2019 dizziness Pioglitazone HCl ND 58912597601 15 MG Orally May Active 1 tablet Once a day for , diabetes 2019 Dicyclomine HCl ND 99665089322 20 MG Orally May Active 1 tablet as Four times a 09, 19, needed for day 2018 2019 stomach pain Atorvastatin ND 98794824517 10 MG Orally Active 1 tablet Calcium Once a day Lisinopril ND 85421473400 5 MG Orally Active 1 tab let Once a day Amoxicillin [facility] 29234356874 500 MG Orally Active 1 capsule Twice a day Alogliptin [facility] 57248180721 25 MG Orally April Active 1 ta blet Benzoate Once a day for 28, diabetes 2018 GlipiZIDE XL [facility] 57116698761 5 MG Orally Active 1 t ablet with Once a day food GlipiZIDE [facility] 65571578917 5 MG Orally May Active 1 tabl et Once a day 2018 Triamcinolone [facility] 22450730319 0.1 % April Active 1 appl ication Acetonide Externally 28, to affected Twice a day 2019 areas BusPIRone HCl [facility] 20004551118 7.5 MG Orally April 18, Active 1 tablet as Twice a day 2018 needed for anxiety Orphenadrine [facility] [address]-25 100 MG Orally Active as directed Citrate ER Results No Known Results Summary Purpose eClinicalWorks Submission
--- OUTSIDE RECORDS SUMMARY | 2020-03-24 10:56 | XMS REPORT ---
[...] Status Dosage System Date Date Atorvastatin [facility] 65541169550 10 MG Orally Active 1 tablet Calcium Once a day Lisinopril ND 79950205562 5 MG Orally Active 1 tab let Once a day Dicyclomine HCl ND 88751522881 20 MG Orally May Active 1 tablet as Four times a 09, 19, needed for day 2018 2018 stomach pain Loratadine [facility] 96393247139 10 MG Orally Active 1 ta blet Once a day Triamcinolone [facility] 63325337413 0.1 % April Active 1 appl ication Acetonide Externally 28, to affected Twice a day 2019 areas GlipiZIDE XL [facility] 41536643841 5 MG Orally Active 1 t ablet with Once a day food Pioglitazone HCl [facility] 17818644316 15 MG Orally May Active 1 tablet Once a day for , diabetes 2019 Amoxicillin [facility] 52170984613 500 MG Orally Active 1 capsule Twice a day Orphenadrine [facility] [address]-10 100 MG Orally Active as directed Citrate ER Alogliptin [facility] 78261826103 25 MG Orally April Active 1 ta blet Benzoate Once a day for , diabetes 2019 Vitamin D [facility] 68121314219 2000 UNIT Active 1 tablet Orally Once a day BusPIRone HCl [facility] 88130517798 7.5 MG Orally April 18, Active 1 tablet as Twice a day 2019 needed for anxiety Meclizine HCl [facility] 78052159957 25 MG Orally April Active 1 tablet as Twice daily , needed for 2019 dizziness Results No Known Results Summary Purpose eClinicalWorks Submission
--- OUTSIDE RECORDS SUMMARY | 2020-03-24 10:56 | XMS REPORT ---
[...] Dosage System Date Date BusPIRone HCl [facility] 51155321858 7.5 MG Orally April 18, Active 1 tablet as Twice a day 2019 needed for anxiety Vitamin D [facility] 37473150589 2000 UNIT Active 1 tablet Orally Once a day Atorvastatin ND 74979862781 10 MG Orally Active 1 tablet Calcium Once a day Orphenadrine [facility] [address]-31 100 MG Orally Active as directed Citrate ER Meclizine HCl [facility] 43119952349 25 MG Orally April Active 1 tablet as Twice daily 07, needed for 2019 dizziness Lisinopril ND 17505115307 5 MG Orally Active 1 tab let Once a day Pioglitazone HCl [facility] 54596238297 15 MG Orally May Active 1 tablet Once a day for , diabetes [address] [facility] 95004693373 500 MG Orally Active 1 capsule Twice a day Loratadine [facility] 43931031051 10 MG Orally Active 1 ta blet Once a day GlipiZIDE XL [facility] 31289064074 5 MG Orally Active 1 t ablet with Once a day food Triamcinolone [facility] 32323433721 0.1 % April Active 1 appl ication Acetonide Externally 28, to affected Twice a day [address] [facility] 72112655086 25 MG Orally April Active 1 ta blet Benzoate Once a day for , diabetes 2019 Results No Known Results Summary Purpose eClinicalWorks Submission
--- OUTSIDE RECORDS SUMMARY | 2020-03-24 10:57 | XMS REPORT ---
:1985 [facility] Team Providers Name [...] End Status Dosage System Date Date Atorvastatin [facility] 96105546235 10 MG Orally Active 1 tablet Calcium Once a day Orphenadrine [facility] [address]-49 100 MG Orally Active as directed Citrate ER Amoxicillin ND 20221034814 500 MG Orally Active 1 capsule Twice a day Meclizine HCl ND 38895541663 25 MG Orally April Active 1 tablet as Twice daily 07, needed for 2019 dizziness BusPIRone HCl ND 43851388111 7.5 MG Orally April 18, Active 1 tablet as Twice a day 2018 needed for anxiety Loratadine ND 74426395909 10 MG Orally Active 1 ta blet Once a day GlipiZIDE XL [facility] 31089786015 5 MG Orally Active 1 t ablet with Once a day food Farxiga [facility] 33069671611 5mg Orally May Active 1 tablet Once daily 2018 Pioglitazone HCl [facility] 64122185062 15 MG Orally May Active 1 tablet Once a day for 05, diabetes 2019 Alogliptin [facility] 99915419836 25 MG Orally April Active 1 ta blet Benzoate Once a day for 28, diabetes 2019 Triamcinolone [facility] 13049871908 0.1 % April Active 1 appl ication Acetonide Externally 28, to affected Twice a day 2019 areas Lisinopril [facility] 69574543201 5 MG Orally Active 1 tab let Once a day Vitamin D [facility] 36693424439 2000 UNIT Active 1 tablet Orally Once a day BELVIQ [facility] 44490506609 10 MG orally Jun 28Sep Active 1 table t Twice a day 2018 Results No Known Results Summary Purpose eClinicalWorks Submission
--- OUTSIDE RECORDS SUMMARY | 2020-03-24 11:37 | XMS REPORT | Summary of Care ---
:1985 Author Organization [facility] Address [address] [place] [address] Care Team Providers Name Role Phone RafykarisKlarissa Flores Insurance Hmo GABI Alvarez Primary Care Provider Reason for Visit Reason Comments Refill Request Encounter Details Date Type Department Care Team Description 03/19/2020 Refill [facility] and Ulises Smith MD Refill Request Adult Primary Care- [address] [place] [address] [place] [address] , [address] [place] [address] Allergies Active Allergy Reactions Severity Noted Date Comments Ibuprofen Rash 04/19/2017 documented as of this encounter (statuses as of 03/20/2020) Medications Medication Sig Dispensed Refills Start End Status Date Date sod duwzp-wgcjku-ocrkwt Use 1 Bottle 1 Each 0 04/13/20 Active bottle (NEILMED SINUS in each 19 RINSE COMPLETE) nostril 2 pkdvIndications: (two) times Sinusitis, unspecified daily. Use in chronicity, unspecified hot shower 1 location hour before bedtime fluticasone propionate Use 2 Sprays 16 g 4 07/18/20 Active 50 mcg/actuation nasal in each 19 sprayIndications: nostril 2 Seasonal allergic (two) times rhinitis, unspecified daily. trigger traMADol 50 mg Take 1 tablet 12 tablet 0 12/18/19 A ctive tabletIndications: by mouth 20 Labial abscess every 6 (six) hours as needed for Pain (scale 7-10). ACCU-CHEK GUIDE GLUCOSE Use as 1 Each 0 12/23/19 Active METER Misc directed, 20 once a day to monitor blood glucose for ICD code E11.9 ACCU-CHEK FASTCLIX Use as 1 Kit 0 12/27/19 A ctive LANCING DEV Kit directed for 20 once a day blood glucose monitoring for ICD E11.9 ACCU-CHEK FASTCLIX Use as 100 Each 0 12/27/19 A ctive LANCET DRUM Misc directed for 20 once a day blood glucose monitoring for ICD E11.9 medroxyPROGESTERone Take one by 30 tablet 1 01/02/20 Active (PROVERA) 10 mg mouth daily 20 tabletIndications: days 1-10 of Female infertility each month. associated with anovulation azelastine 137 mcg (0.1 Use 1 Winn 30 mL 5 02/21/20 Active %) nasal in each 20 sprayIndications: Acute nostril 2 allergic rhinitis (two) times daily. Use in each nostril as directed levocetirizine 5 mg TAKE 1 TABLET 30 tablet 5 02/21/20 Active tabletIndications: BY MOUTH ONCE 20 Acute allergic rhinitis DAILY IN THE EVENING montelukast 10 mg Take 1 tablet 30 tablet 5 02/21/20 Active tabletIndications: by mouth 20 Acute allergic rhinitis every evening. lubiprostone 8 mcg Take 1 60 capsule 5 02/21/20 Active capsuleIndications: capsule by 20 Chronic idiopathic mouth 2 (two) constipation times daily with meals. glipiZIDE 5 mg Take 1 tablet 90 tablet 0 03/02/20 A ctive tabletIndications: Type by mouth 20 2 diabetes mellitus daily. without complication, without long-term current use of insulin lactulose 10 gram/15 mL Take 30 mL by 1 Bottle 0 03/04/20 Active oral mouth 3 20 solutionIndications: (three) times Constipation, daily as unspecified needed for constipation type Constipation. busPIRone 7.5 mg TAKE 1 TABLET 180 tablet 0 03/11/20 Active tabletIndications: BY MOUTH 20 Medication refill TWICE DAILY NEEDED FOR ANXIETY blood sugar diagnostic Use as 100 Strip 2 03/20/20 Active (ACCU-CHEK GUIDE) strip directed, 20 once a day to monitor blood glucose for ICD code E11.9 ACCU-CHEK GUIDE strip Use as 100 Strip 2 12/23/19 Discontinued directed, 20 020 (Reorder) once a day to monitor blood glucose for ICD code E11.9 documented as of this encounter (statuses as of 03/20/2020) Active Problems Problem Noted Date Chronic idiopathic constipation 02/21/2020 Epistaxis 02/21/2020 Morbid obesity with body mass index of 40.0-49.9 01/02 Indigestion 07/25/2019 Overview: Added automatically from request for linda brian [id number] Epigastric pain 07/25/2019 Overview: Added automatically from request for linda brian [id number] Type 2 diabetes mellitus with complication, without [...] as of this encounter (statuses as of 03/20/2020) Immunizations Name Administration Dates Next Due Influenza [...] Travel End No recent travel history available. COVID-19 Exposure Response Date Recorded In the last month, have you been in contact with No / Unsure 03/13/2020 8:37 PM CDT someone who was confirmed or suspected to have Coronavirus / COVID-19? documented as of this encounter Last Filed Vital Signs Not on filedocumented in this encounter Plan of Treatment Date Type Specialty Care Team Description 04/28/2020 Office Visit Otolaryngology Man Akbar MD [address] [place] [address]. 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 [id number] 2019-Prese Medic are Adv HEALTHCARE - HEALTHCARE DUAL nt H [place] MANAGED COMPLETE HMO MEDICARE [facility] STAR xxxxxxxxx 2020-Prese Medicaid HEALTHCARE COMM PLUS nt PLAN - MANAGED MEDICAID documented as of this encounter Advance Directives Name Relationship Healthcare Agent Communication Relationship Miranda Morales Sibling Primary healthcare agent Michelet Brower Significant Other First alternate [phone] healthcare agent (Mobile)
--- OUTSIDE RECORDS SUMMARY | 2020-03-24 11:37 | XMS REPORT | Summary of Care ---
:1985 Author Organization [facility] Address [address] [place] [address] Care Team Providers Name Role Phone Klarissa Delgado Flores Insurance Hmo GABI Alvarez Primary Care Provider Reason for Referral (Routine) Status Reason Specialty Diagnoses / Referred By Referred To Procedures Contact Contact New Request Otolaryngology Diagnoses Dizziness Sinus pressure Chronic nasal congestion [place], Procedures CONSULT/REFERRAL ENT Clara Younger MD [facility] [place] [address] Reason for Visit Reason Comments Dizziness Encounter Details Date Type Department Care Team Description 03/19/2020 Telemedicine Visit [facility] Clara Quarles Dizz iness (Primary Dx); Pediatric and Adult MD Carisa Sinus pressure; Primary Care- [facility] E [facility] D R Chronic nasal congestion [place] [address] [address] [id number] , [address] [place], [place] [phone] (Fax) [phone] Allergies Active Allergy Reactions Severity Noted Date Comments Ibuprofen Rash 04/19/2017 documented as of this encounter (statuses as of 03/19/2020) Medications Medication Sig Dispensed Refills Start Date End Date Status sod uysom-souvxb-lhwxgx Use 1 Bottle in 1 Each 0 [...] anovulation azelastine 137 mcg (0.1 Use 1 Slade in 30 mL 5 02/21/2020 Active %) [...] as of this encounter (statuses as of 03/19/2020) Active Problems Problem Noted Date Chronic idiopathic constipation 02/21/2020 Epistaxis 02/21/2020 Morbid obesity with body mass index of 40.0-49.9 01/02 Indigestion 07/25/2019 Overview: Added automatically from request for linda brian [id number] Epigastric pain 07/25/2019 Overview: Added automatically from request for linda brian [id number] Type 2 diabetes mellitus with complication, without [...] as of this encounter (statuses as of 03/19/2020) Immunizations Name Administration Dates Next Due Influenza [...] this encounter Patient Instructions Patient InstructionsNancy Sow R - 03/19/2020 2:15 PM CDT Patient Education Dizziness (Uncertain Cause) Dizziness is a common symptom. It may be described as lightheadedness, spinning, or feeling like youare going to faint. Dizziness can have many causes. Tell the healthcare provider about: All medicines you take, including prescription, rlht-uew-fpffcsz, herbs, and supplements Any other symptoms you have Any health problems you are being treated for Any past major health problems you've had, such as a heart attack, balance issues, hearing problems, or blood pressure problems Anything that causes the dizziness to get worse or better Today's exam did not show an exact cause for your dizziness .Other tests may be needed. Follow up with your healthcare provider. Home care Dizziness that occurs with sudden standing may be a sign of mild dehydration. Drink extra fluids for the next few days. If you recently started a new medicine, stopped a medicine, or had the dose of a current medicinechanged,talk with the prescribing healthcare provider. Your medicine plan may need adjustment. If dizziness lasts more than a few seconds, sit or lie down until it passes. This may help prevent injury in case you pass out. Get up slowly when you feel better. Don't drive or use power tools or dangerous equipment until you have had no dizziness for at least 48 hours. Follow-up care Follow up with your healthcare provider for further evaluation in the next 7 days, or as advised. When to get medical advice Call your healthcare provider for any of the following: Worsening of symptoms or new symptoms Repeated vomiting Headache Vision or hearing changes Call 911 Call 911, or get medical care right away if any of these occur: Chest, arm, neck, back, or jaw pain Weakness of an arm or leg or one side of the face Blood in vomit or stool (black or red color) Shortness of breath Feeling that your heart is fluttering or beating fast or hard (palpitations) Passing out or seizure Trouble walking or speaking [employer] last reviewed this educational content on 12/28/201919990387-8395 [employer]. [address] [place] [address]. All rights reserved. This information is not intended as a substitute for professional medical care. Always follow your healthcare professional's instructions. Patient Education Dizziness (Uncertain Cause) Dizziness is a common symptom. It may be described as lightheadedness, spinning, or feeling like youare going to faint. Dizziness can have many causes. Tell the healthcare provider about: All medicines you take, including prescription, lyop-esa-fpxgkio, herbs, and supplements Any other symptoms you have Any health problems you are being treated for Any past major health problems you've had, such as a heart attack, balance issues, hearing problems, or blood pressure problems Anything that causes the dizziness to get worse or better Today's exam did not show an exact cause for your dizziness .Other tests may be needed. Follow up with your healthcare provider. Home care Dizziness that occurs with sudden standing may be a sign of mild dehydration. Drink extra fluids for the next few days. If you recently started a new medicine, stopped a medicine, or had the dose of a current medicinechanged,talk with the prescribing healthcare provider. Your medicine plan may need adjustment. If dizziness lasts more than a few seconds, sit or lie down until it passes. This may help prevent injury in case you pass out. Get up slowly when you feel better. Don't drive or use power tools or dangerous equipment until you have had no dizziness for at least 48 hours. Follow-up care Follow up with your healthcare provider for further evaluation in the next 7 days, or as advised. When to get medical advice Call your healthcare provider for any of the following: Worsening of symptoms or new symptoms Repeated vomiting Headache Vision or hearing changes Call 911 Call 911, or get medical care right away if any of these occur: Chest, arm, neck, back, or jaw pain Weakness of an arm or leg or one side of the face Blood in vomit or stool (black or red color) Shortness of breath Feeling that your heart is fluttering or beating fast or hard (palpitations) Passing out or seizure Trouble walking or speaking [employer] last reviewed this educational content on 12/28/201919996821-4623 [employer]. [address] [place] [address]. All rights reserved. This information is not intended as a substitute for professional medical care. Always follow your healthcare professional's instructions. documented in this encounter Progress Notes Clara Quarles MD - 03/19/2020 2:15 PM CDT TELEHEALTH NOTE Verbal consent obtained from Patient: Mckenna Haney due to the COVID-19 pandemic for telehealth services provided below. Communication with patient was conducted via Video Call. Location of Patient: Home Location of Provider: Office Date of Service: 03/19/2020 CC: Chief Complaint Patient presents with Dizziness HPI Mckenna Haney is a 35 year old female who participated in a Telehealth visit today for dizziness. Dizziness Quality: Lightheadedness and imbalance Severity: Moderate Onset quality: Sudden Duration: 5 months Timing: Constant Progression: Unchanged Chronicity: New Relieved by: Nothing Ineffective treatments: Jake's nasal spray, Xyzal, Astelin, meclizine, montelukast, Flonase. Associated symptoms: headaches (frontal, pressure) Associated symptoms: no blood in stool, no chest pain, no diarrhea, no nausea, no palpitations, no shortness of breath, no syncope, no tinnitus, no vision changes, no vomiting and no weakness Associated symptoms comment: Also has chronic nasal congestion and sinus pressure Risk factors: multiple medications Allergies Allergen Reactions Ibuprofen Rash Current Outpatient Medications on File Prior to Visit Medication Sig Dispense Refill busPIRone 7.5 mg tablet TAKE 1 TABLET BY MOUTH TWICE DAILY NEEDED FOR ANXIETY 180 tablet 0 lactulose 10 gram/15 mL oral solution Take 30 mL by mouth 3 (three) times daily as needed for Constipation. 1 Bottle 0 glipiZIDE 5 mg tablet Take 1 tablet by mouth daily. 90 tablet 0 azelastine 137 mcg (0.1 %) nasal spray Use 1 Slade in each nostril 2 (two) times daily. Use in each nostril as directed 30 mL 5 levocetirizine 5 mg tablet TAKE 1 TABLET BY MOUTH ONCE DAILY IN THE EVENING 30 tablet 5 lubiprostone 8 mcg capsule Take 1 capsule by mouth 2 (two) times daily with meals. 60 capsule 5 montelukast 10 mg tablet Take 1 tablet by mouth every evening. 30 tablet 5 medroxyPROGESTERone (PROVERA) 10 mg tablet Take one by mouth daily days 1-10 of each month. 30 tablet 1 ACCU-CHEK FASTCLIX LANCET DRUM Misc Use as [...] (two) times daily. 16 g 4 sod cnpry-smurpf-mpgufq bottle (NEILMED SINUS RINSE COMPLETE) pkdv Use 1 Bottle in each nostril 2 (two) times daily. Use in hot shower 1 hour before bedtime 1 Each 0 No current facility-administered medications on file prior to visit. Past Medical History: Diagnosis Date Anxiety Genital herpes type 1 GERD (gastroesophageal reflux disease) HTN (hypertension) Hypercholesteremia Seasonal allergies Trichimoniasis Type 2 diabetes mellitus Past Surgical History: Procedure Laterality Date CHOLECYSTECTOMY ESOPHAGOGASTRODUODENOSCOPY N/A 08/05/2019 Surgeon: Jeanette Pedro MD; Location: [facility] Family History Problem Relation Age of Onset Diabetes Mother High cholesterol Mother Hypertension Mother Diabetes Father Hypertension Father Diabetes Maternal Grandmother High cholesterol Maternal Grandmother Diabetes Maternal Grandfather High cholesterol Maternal Grandfather Diabetes Paternal Grandmother High cholesterol Paternal Grandmother Diabetes Paternal Grandfather High cholesterol Paternal Grandfather Social History Socioeconomic History Marital status: Spouse [...] Lives in trailer with . Review of Systems Constitutional: Negative. HENT: Positive for congestion, postnasal drip and sinus pressure. Negative for rhinorrhea and tinnitus. Eyes: Negative. Respiratory: Negative. Negative for shortness of breath. Cardiovascular: Negative. Negative for chest pain, palpitations and syncope. Gastrointestinal: Negative. Negative for blood in stool, diarrhea, nausea and vomiting. Genitourinary: Negative. Musculoskeletal: Negative. Skin: Negative. Neurological: Positive for dizziness and headaches (frontal, pressure). Negative for weakness. Psychiatric/Behavioral: Negative. Endocrine: Endocrine negative Vital signs Level of pain does not rate. Physical Exam Constitutional: She is oriented to person, place, and time. No audible distress Pulmonary/Chest: No audible adventitious breath sounds or respiratory distress Neurological: She is alert and oriented to person, place, and time. Answers questions appropriately Psychiatric: She has a normal mood and affect. Her speech is normal. Judgment and thought content normal. Cognition and memory are normal. LABS: CBC CMP WBC (10*3/L) Date Value 03/04/2020 9.64 NA (mmol/L) Date Value 03/04/2020 141 RBC (10*6/L) Date Value 03/04/2020 4.02 K (mmol/L) Date Value 03/04/2020 3.9 PLT (10*3/L) Date Value 03/04/2020 248 CALCIUM (mg/dL) Date Value 03/04/2020 9.5 HGB (g/dL) Date Value 03/04/2020 13.5 CL (mmol/L) Date Value 03/04/2020 104 HCT (%) Date Value 03/04/2020 39.5 BUN (mg/dL) Date Value 03/04/2020 10 LIPID PANEL CREATININE (mg/dL) Date Value 03/04/2020 0.52 CHOL (mg/dL) Date Value 06/13/2019 120 GLUCOSE (mg/dL) Date Value 03/04/2020 165 (H) LDL CHOL (mg/dL) Date Value 06/13/2019 65 CO2 TOTAL (mmol/L) Date Value 03/04/2020 27 HDL (mg/dL) Date Value 06/13/2019 40 (L) ALBUMIN Date Value Ref Range Status 03/04/2020 4.4 3.5 - 5.0 g/dL Final TRIG (mg/dL) Date Value 06/13/2019 76 T PROTEIN Date Value Ref Range Status 03/04/2020 7.5 6.3 - 8.2 g/dL Final TSH TOTAL BILI Date Value Ref Range Status 03/04/2020 0.4 0.1 - 1.1 mg/dL Final TSH (mIU/L) Date Value 09/09/2019 1.10 No components found for: BILIUNCOM BILI CONJ Date Value Ref Range Status 01/04/2020 0.0 0.0 - 0.3 mg/dL Final ALT(SGPT) Date Value Ref Range Status 09/09/2019 30 9 - 51 U/L Final ALTv Date Value Ref Range Status 03/04/2020 29 5 - 35 U/L Final AST(SGOT) Date Value Ref Range Status 03/04/2020 21 13 - 40 U/L Final ALK PHOS Date Value Ref Range Status 03/04/2020 60 34 - 122 U/L Final ASSESSMENT/PLAN Diagnoses and all orders for this visit: ICD-10-CM ICD-9-CM 1. Dizziness R42 780.4 2. Sinus pressure J34.89 478.19 3. Chronic nasal congestion R09.81 478.19 She has already failed nasal steroids, nasal and oral antihistamines, leukotriene inhibitor therapy,meclizine, and multiple OTC medications without relief of her chronic ENT symptoms and dizziness. Therefore I recommended evaluation and management by an Otolaryngology specialist, referral initiated. Orders: - CONSULT/REFERRAL ENT Plan of care, desired health behaviors, goals, Ddx, and any prescribed medications were discussed with the patient. Education resources and self- management tools were provided in the After Visit Summary (AVS) which is accessible through [employer]. A total of 15 minutes was spent on the Telephone due to patient unable to obtain video call option. Patient/guardian/family verbalized understanding and agrees to the plan of care. Barriers to care: None. Ability to manage care: Good. Advanced care planning (living will) information was not given/offered to the patient to review for discussion at a f [facility] visit. If applicable, the [employer] database was accessed to review any controlled substance prescription claims data. If the patient is taking prescribed medications, the [employer] prescription claims data in [employer] was reviewed to assess patient compliance with the medication treatment plan. COVID-19 precautions given including frequent handwashing, social distancing, cleaning and disinfecting, indications for testing, etc. Follow-up: Return for routine care as scheduled or previously advised by PCP and PRN. Scribe Attestation Nancy Guerrero , am scribing for, and in the presence of, Clara Quarles MD who performed the services described here-in. Nancy Sow, March 19, 2020, 1:12 PM Physician Attestation I, Clara Quarles MD, personally performed the services described in this documentation , as scribed by, Nancy Sow in my presence and it is both accurate and complete. Clara Quarles MD March 19, 2020, 1:12 PM documented in this encounter Plan of Treatment Date Type Specialty Care Team Description 03/19/2020 Telemedicine Visit Obstetrics & Gynecology Claritza Velez Arrived MD [address] [place] [phone] 04/28/2020 Office Visit Otolaryngology Man Akbar MD [address] [place] [address] 06/04/2020 Telemedicine Visit Obstetrics & Gynecology Claritza Velez MD [address] [place] [phone] 06/18/2020 Elastic Yarn Twister Helper Visit Endocrinology Diabetes & LamonteRegla, RD Metabolism [address] [place] [address] [phone] Health Maintenance Due Date Last Done Comments [...] Diagnosis Dizziness - Primary Dizziness and giddiness Sinus pressure Other diseases of nasal cavity and sinus es Chronic nasal congestion Other diseases of nasal cavity and sinus es documented in this encounter Additional Health Concerns Infection Noted Time Resolved Time Contact - ESBL 10/31/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 documented as of this encounter Insurance Payer Benefit Plan / Subscriber ID Effective Phone Address T e Group [facility] [id number] 2019-Prese Medic are Adv HEALTHCARE - HEALTHCARE DUAL nt H [place] MANA[place] COM[place]TE H[place] MEDIC[place] xxxxxxxxx 2020-Prese Medicaid HEALTHCARE COMM PLUS nt PLAN - MANAGED MEDICAID documented as of this encounter Advance Directives Name Relationship Healthcare Agent Communication Relationship Miranda Morales Sibling Primary healthcare agent Michelet Brower Significant Other First alternate [phone] healthcare agent (Mobile) ([place])
--- OUTSIDE RECORDS SUMMARY | 2020-03-24 11:37 | XMS REPORT | Summary of Care ---
:1985 Author Organization [facility] Address [address] [place] [address] Care Team Providers Name Role Phone RafykarisKlarissa Flores Insurance Hmo GABI Alvarez Primary Care Provider Reason for Visit Reason Comments Assessment Encounter Details Date Type Department Care Team Description 03/16/2020 Telephone [facility] Family Medicine Karoline Hare FNP Assessment - [place] [address] [facility] [address] [place] [address] [place] [phone] Allergies Active Allergy Reactions Severity Noted Date Comments Ibuprofen Rash 04/19/2017 documented as of this encounter (statuses as of 03/19/2020) Medications Medication Sig Dispensed Refills Start Date End Date Status sod lgtmt-npkgfe-xkwzwk Use 1 Bottle in 1 Each 0 [...] anovulation azelastine 137 mcg (0.1 Use 1 [place] in 30 mL 5 02/21/2020 Active %) [...] Added automatically from request for linda torres [id number] Epigastric pain 07/25/2019 Overview: Added automatically from request for linda torres [id number] Type 2 diabetes mellitus with complication, without [...] Obstetrics & Gynecology Claritza Velez Arrived MD [address] [place] [phone] 03/19/2020 Telemedicine Visit Family Medicine Clara Quarles MD [address] [place] [phone] 04/28/2020 Office Visit Otolaryngology Man Akbar MD [address] [place] [address]. 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 documented as of this encounter Insurance Payer Benefit Plan / Subscriber ID Effective Phone Address T ype Group Dates [facility] [id number] 2019-Prese Medic are Adv HEALTHCARE - HEALTHCARE DUAL nt H [place] MANA[place] COM[place]TE O MEDICARE [place] xxxxxxxxx 2020-[facility] Medicaid HEALTHCARE COMM PLUS nt PLAN - MANAGED MEDICAID documented as of this encounter Advance Directives Name Relationship Healthcare Agent Communication Relationship Miranda Morales Sibling Primary healthcare agent Michelet Brower Significant Other First alternate [phone] healthcare agent (Mobile)
--- OUTSIDE RECORDS SUMMARY | 2020-03-24 11:38 | XMS REPORT | Summary of Care ---
:1985 Author Organization [facility] Address [address] [place] [address] Care Team Providers Name Role Phone Danny Klarissa L Insurance Hmo GABI Alvarez Primary Care Provider Reason for Visit Reason Comments Other leg swelling Auth/Cert Status Reason Specialty Diagnoses / Referred By Referred To Procedures Contact Contact Emergency Medicine [facility] Em ergency Dept [address] [place] [address] Fax: Encounter Details Date Type Department Care Team Description 03/23/2020 Emergency ADC-Emergency Depart ment Keisha Pichardo, DO [address] [place] [address] [place] [address] [phone] Allergies Active Allergy Reactions Severity Noted Date Comments Ibuprofen Rash 04/19/2017 documented as of this encounter (statuses as of 03/23/2020) Medications Medication Sig Dispensed Refills Start Date End Date Status sod ewkxc-ydcymn-yxgvtv Use 1 Bottle in 1 Each 0 [...] anovulation azelastine 137 mcg (0.1 Use 1 [place] in 30 mL 5 02/21/2020 Active %) [...] TWICE Medication refill DAILY NEEDED FOR ANXIETY blood sugar diagnostic Use as 100 Strip 2 03/20/2020 Active (ACCU-CHEK GUIDE) strip directed, once a day to monitor blood glucose for ICD code E11.9 documented as of this encounter (statuses as of 03/23/2020) Active Problems Problem Noted Date Chronic idiopathic constipation 02/21/2020 Epistaxis 02/21/2020 Morbid obesity with body mass index of 40.0-49.9 01/02 Indigestion 07/25/2019 Overview: Added automatically from request for linda brian [id number] Epigastric pain 07/25/2019 Overview: Added automatically from request for linda brian [id number] Type 2 diabetes mellitus with complication, without [...] as of this encounter (statuses as of 03/23/2020) Immunizations Name Administration Dates Next Due Influenza [...] been in contact with No / Unsure 03/23/2020 4:52 PM CDT someone who was confirmed or suspected to have Coronavirus / COVID-19? documented as of this encounter Last Filed Vital Signs Vital Sign Reading Time Taken Comments Blood Pressure 151/89 03/23/2020 4:53 PM CDT Pulse 96 03/23/2020 4:53 PM CDT Temperature 37.5 C (99.5 F) 03/23/2020 4:53 PM CDT Respiratory Rate 18 03/23/2020 4:53 PM CDT Oxygen Saturation 99% 03/23/2020 4:53 PM CDT Inhaled Oxygen Concentration - - Weight 104.8 kg (231 lb) 03/23/2020 4:53 PM CDT Height 162.6 cm (5' 4") 03/23/2020 4:53 PM CDT Body Mass Index 39.65 03/23/2020 4:53 PM CDT documented in this encounter Plan of Treatment Date Type Specialty Care Team Description 03/24/2020 Telemedicine Visit Family Medicine Clara Quarles MD [address] [place] [address] [phone] 04/29/2020 Office Visit Otolaryngology Jorge L Willett MD [address] [place] [address] [place] [address] [phone] 06/04/2020 Telemedicine Visit Obstetrics & Gynecology Claritza Velez MD [address] [place] [phone] 06/18/2020 English Language Learner Tutor Visit Endocrinology Diabetes & LamonteRegla alvarez, RD Metabolism [address] [place] [address] [phone] Health Maintenance Due Date Last Done Comments [...] Time Contact - ESBL 10/31/2018 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
[2020-03-24 12:33] LABS: Basophils % 0.5 % (0-1.3); Hematocrit 41.1 % (36.0-45.0); Lymphocytes % 35.9 % (15.3-44.8); MPV 8.8 fL (7.6-11.3); RBC Red Blood Cell Count 4.18 M/uL (3.86-4.86)
[2020-03-24 12:44] LABS: ALT/SGPT 37 U/L (12-78); AST/SGOT 15 U/L (15-37); Albumin 3.9 g/dL (3.4-5.0); Alkaline Phosphatase 61 U/L (45-117); BUN Blood Urea Nitrogen 8 mg/dL (7-18); Bicarbonate 26 mmol/L (21-32); Bilirubin Direct 0.1 mg/dL (0-0.2); Bilirubin Total 0.5 mg/dL (0.2-1.0); Creatine Phosphokinase 80 U/L (26-192); Glucose Level 157 mg/dL (74-106); Potassium 3.7 mmol/L (3.5-5.1); Sodium Level 140 mmol/L (136-145)
--- NOTE | 2020-03-24 13:45 | ER ---
Nurse's Notes [facility] Name: Mckenna Haney Age: 35 yrs Sex: Female : 1985 Arrival Date: 03/24/2020 Time: 10:54 Bed 19 Private MD: Diagnosis: Myalgia Presentation: 03/24 11:01 Chief complaint: Patient states: three days has been having feet swelling and leg iw swelling, and my bones are hurting a lot , reports cough, no fever/chills, no SOB. Coronavirus screen: Proceed with normal triage. Patient reports a cough. Patient denies shortness of breath or difficulty breathing. Patient denies measured and/or subjective temperature greater than 100.4F prior to today's visit. Patient denies travel on a cruise ship or to a country the [facility] currently lists as an affected area. Patient denies contact with known and/or suspected case of COVID-19. Ebola Screen: Patient negative for fever greater than or equal to 101.5 degrees Fahrenheit, and additional compatible Ebola Virus Disease symptoms Patient denies exposure to infectious person. Patient denies travel to an Ebola-affected area in the 21 days before illness onset. No symptoms or risks identified at this time. Initial Sepsis Screen: Does the patient meet any 2 criteria? No. Patient's initial sepsis screen is negative. Does the patient have a suspected source of infection? No. Patient's initial sepsis screen is negative. Risk Assessment: Do you want to hurt yourself or someone else? Patient reports no desire to harm self or others. Onset of symptoms was March 21, 2020. 11:01 Method Of Arrival: Ambulatory iw 11:01 Acuity: LILO 3 iw Triage Assessment: 12:00 General: Appears in no apparent distress. comfortable, Behavior is cooperative, bp appropriate for age, anxious. Pain: Complains of pain in right foot and left foot. EENT: No deficits noted. Neuro: No deficits noted. Cardiovascular: No deficits noted. Respiratory: No deficits noted. GI: No signs and/or symptoms were reported involving the gastrointestinal system. : No signs and/or symptoms were reported regarding the genitourinary system. Derm: No deficits noted. Musculoskeletal: Swelling present in right foot and left foot. 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 iw Historical: - Allergies: 11:04 Ibuprofen (Hives); iw - Home Meds: 11:04 buspirone 7.5 mg Oral tab 1 tab 2 times per day [Active]; cyclobenzaprine 7.5 mg Oral iw tab 1 tab 3 times per day [Active]; glyburide 5 mg Oral tab 1 tab once daily [Active]; hydroxyzine HCl 50 mg Oral tab 1 tab 4 times per day [Active]; meclizine 25 mg Oral tab 1 tab 3 times per day [Active]; medroxyprogesterone 10 mg Oral tab 1 tab once daily [Active]; - PMHx: 11:04 Diabetes - NIDDM; High Cholesterol; Hypertension; Ovarian cyst; iw - PSHx: 11:04 Cholecystectomy; iw - Immunization history:: Adult Immunizations not up to date. - Social history:: Smoking status: Patient denies any tobacco usage or history of. Screenin:05 Abuse screen: Denies threats or abuse. Denies injuries from another. Nutritional bp screening: No deficits noted. Tuberculosis screening: No symptoms or risk factors identified. Fall Risk None identified. Assessment: 11:05 General: Appears in no apparent distress. comfortable, Behavior is cooperative, bp appropriate for age, anxious. General: SEE TRIAGE NOTE. Pain: Complains of pain in right foot and left foot. 14:05 Reassessment: PT D/C HOME AMBULATORY, DX WITH MYALGIA. bp Vital Signs: 11:01 BP 130 / 82; Pulse 73; Resp 16; Temp 98.1; Pulse Ox 100% on R/A; Weight 104.78 kg; iw Height 5 ft. 4 in. (162.56 cm); Pain 9/10; 12:45 BP 126 / 84; Pulse 80; Resp 16; Pulse Ox 100% ; bp 14:00 BP 122 / 76; Pulse 75; Resp 16; Pulse Ox 100% ; bp 11:01 Body Mass Index 39.65 (104.78 kg, 162.56 cm) iw ED Course: 10:54 Patient arrived in ED. as 11:03 Triage completed. iw 11:05 Arm band placed on. bp 12:03 Jorge L Nunez, MARIN is Primary Nurse. bp 12:06 Jeffy Slater PA is PHCP. jr8 12:06 Prince Weber MD is Attending Physician. jr8 12:26 Initial lab(s) drawn, by me, sent to lab. Inserted saline lock: 22 gauge in right lt1 antecubital area, using aseptic technique. 12:27 Bed in low position. Call light in reach. Side rails up X 1. Door closed. Lights lt1 dimmed. Warm blanket given. 14:07 No provider procedures requiring assistance completed. IV discontinued, intact, bp bleeding controlled, No redness/swelling at site. Pressure dressing applied. Administered Medications: No medications were administered Outcome: 13:45 Discharge ordered by MD. willett 14:07 Discharged to home ambulatory. bp 14:07 Condition: stable 14:07 Discharge instructions given to patient, Instructed on discharge instructions, follow up and referral plans. Demonstrated understanding of instructions, follow-up care. 14:12 Patient left the ED. bp Signatures: Vandana Brower Irene, RN RN Jeffy Slater PA PA jrJorge L Marcial RN RN bp Niurka, Justina lt1
--- NOTE | 2020-03-24 13:45 | EDPHYS ---
Physician Documentation [facility] Name: Mckenna Haney Age: 35 yrs Sex: Female : 1985 Arrival Date: 03/24/2020 Time: 10:54 Bed 19 Private MD: ED Physician Prince Weber HPI: 03/24 12:37 This 35 yrs old Female presents to ER via Ambulatory with complaints of Pain jr8 everywhere . 12:37 Patient stated that she had whole body pain to muscles and swelling to feet for past jr8 three days. No change or addition of medications. Denies rigorous work outs. Denies fevers or other symptoms. Stated that she cannot get pain to subside . Severity of symptoms: At their worst the symptoms were mild in the emergency department the symptoms are unchanged. The patient has not experienced similar symptoms in the past. The patient has not recently seen a physician. 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 iw Historical: - Allergies: 11:04 Ibuprofen (Hives); iw - Home Meds: 11:04 buspirone 7.5 mg Oral tab 1 tab 2 times per day [Active]; cyclobenzaprine 7.5 mg Oral iw tab 1 tab 3 times per day [Active]; glyburide 5 mg Oral tab 1 tab once daily [Active]; hydroxyzine HCl 50 mg Oral tab 1 tab 4 times per day [Active]; meclizine 25 mg Oral tab 1 tab 3 times per day [Active]; medroxyprogesterone 10 mg Oral tab 1 tab once daily [Active]; - PMHx: 11:04 Diabetes - NIDDM; High Cholesterol; Hypertension; Ovarian cyst; iw - PSHx: 11:04 Cholecystectomy; iw - Immunization history:: Adult Immunizations not up to date. - Social history:: Smoking status: Patient denies any tobacco usage or history of. ROS: 12:39 Eyes: Negative for injury, pain, redness, and discharge, ENT: Negative for injury, jr8 pain, and discharge, Neck: Negative for injury, pain, and swelling, Cardiovascular: Negative for chest pain, palpitations, and edema, Respiratory: Negative for shortness of breath, cough, wheezing, and pleuritic chest pain, Abdomen/GI: Negative for abdominal pain, nausea, vomiting, diarrhea, and constipation, Back: Negative for injury and pain, MS/Extremity: Negative for injury and deformity, Skin: Negative for injury, rash, and discoloration, Neuro: Negative for headache, weakness, numbness, tingling, and seizure. 12:39 Constitutional: Positive for myalgias . Exam: 12:39 Eyes: Pupils equal round and reactive to light, extra-ocular motions intact. Lids and jr8 lashes normal. Conjunctiva and sclera are non-icteric and not injected. Cornea within normal limits. Periorbital areas with no swelling, redness, or edema. ENT: Nares patent. No nasal discharge, no septal abnormalities noted. Tympanic membranes are normal and external auditory canals are clear. Oropharynx with no redness, swelling, or masses, exudates, or evidence of obstruction, uvula midline. Mucous membranes moist. Neck: Trachea midline, no thyromegaly or masses palpated, and no cervical lymphadenopathy. Supple, full range of motion without nuchal rigidity, or vertebral point tenderness. No Meningismus. Cardiovascular: Regular rate and rhythm with a normal S1 and S2. No gallops, murmurs, or rubs. Normal PMI, no JVD. No pulse deficits. Respiratory: Lungs have equal breath sounds bilaterally, clear to auscultation and percussion. No rales, rhonchi or wheezes noted. No increased work of breathing, no retractions or nasal flaring. Abdomen/GI: Soft, non-tender, with normal bowel sounds. No distension or tympany. No guarding or rebound. No evidence of tenderness throughout. Back: No spinal tenderness. No costovertebral tenderness. Full range of motion. Skin: Warm, dry with normal turgor. Normal color with no rashes, no lesions, and no evidence of cellulitis. MS/ Extremity: Pulses equal, no cyanosis. Neurovascular intact. Full, normal range of motion. Neuro: Awake and alert, GCS 15, oriented to person, place, time, and situation. Cranial nerves II-XII grossly intact. Motor strength 5/5 in all extremities. Sensory grossly intact. Cerebellar exam normal. Normal gait. 13:43 Musculoskeletal/extremity: DVT Exam: no swelling, no tenderness, negative Homans' sign jr8 noted on exam, no appreciated bluish discoloration, no erythema, no increased warmth, Calves: have equal circumference. Vital Signs: 11:01 BP 130 / 82; Pulse 73; Resp 16; Temp 98.1; Pulse Ox 100% on R/A; Weight 104.78 kg; iw Height 5 ft. 4 in. (162.56 cm); Pain 9/10; 12:45 BP 126 / 84; Pulse 80; Resp 16; Pulse Ox 100% ; bp 14:00 BP 122 / 76; Pulse 75; Resp 16; Pulse Ox 100% ; bp 11:01 Body Mass Index 39.65 (104.78 kg, 162.56 cm) iw MDM: 12:06 Patient medically screened. jr8 13:42 Data reviewed: vital signs, nurses notes, lab test result(s), and as a result, I will jr8 discharge patient. Data interpreted: Pulse oximetry: on room air is 100 %. Interpretation: normal. Counseling: I had a detailed discussion with the patient and/or guardian regarding: the historical points, exam findings, and any diagnostic results supporting the discharge/admit diagnosis, lab results, the need for outpatient follow up, a family practitioner, to return to the emergency department if symptoms worsen or persist or if there are any questions or concerns that arise at home. 13:43 ED course: Patient not on cholesterol medication. No signs of DVT or infection on jr8 physical exam. No signs for acute arteriol occlusion. Labs unremarkable. Recommended f/u with PCP in next couple of days. If worse to come back. Patient good with this . 03/24 12:07 Order name: CBC with Diff; Complete Time: 13:42 jr8 03/24 12:07 Order name: Basic Metabolic Panel; Complete Time: 12:52 jr8 03/24 12:07 Order name: LFT's; Complete Time: 12:52 jr8 03/24 12:07 Order name: CPK; Complete Time: 12:52 jr8 03/24 12:07 Order name: IV; Complete Time: 12:27 jr8 03/24 12:07 Order name: ESR; Complete Time: 13:42 jr8 Administered Medications: No medications were administered Disposition: 15:23 Co-signature as Attending Physician, Prince Weber MD. rn Disposition: 03/24/20 13:45 Discharged to Home. Impression: Myalgia. - Condition is Stable. - Discharge Instructions: Musculoskeletal Pain, Muscle Pain, Adult. - Medication Reconciliation Form, Thank You Letter, Antibiotic Education, Prescription Opioid Use form. - Follow up: Private Physician; When: 48 Hours; Reason: Recheck today's complaints, Continuance of care, Re-evaluation by your physician. - Problem is new. - Symptoms have improved. Signatures: Dispatcher [employer] EDEunice Vuong RN RN iw Nieto, Roman, MD MD rn Roszak, Josh, PA PA jr8 Jorge L Nunez RN RN bp Corrections: (The following items were deleted from the chart) 14:12 13:45 03/24/2020 13:45 Discharged to Home. Impression: Myalgia. Condition is Stable. bp Forms are Medication Reconciliation Form, Thank You Letter, Antibiotic Education, Prescription Opioid Use. Follow up: Private Physician; When: 48 Hours; Reason: Recheck today's complaints, Continuance of care, Re-evaluation by your physician. Problem is new. Symptoms have improved. jr8
[2020-03-24 14:21] VITALS: TEMP 98.1; O2SAT 100
[2020-03-24 14:23] VITALS: BP 122/76
== END 2020-03-24 14:12 | disposition home or self-care (01) ==
LOC: ER 10:52
DX: M79.10 Myalgia, unspecified site (principal); I10 Essential (primary) hypertension; E78.00 Pure hypercholesterolemia, unspecified; E11.9 Type 2 diabetes mellitus without complications; Z88.6 Allergy status to analgesic agent
CPT/HCPCS: 36415; 80048; 80076; 82550; 85025; 85652; 99283

== ENCOUNTER 2020-04-15 10:02 | Emergency (ER) | payer OTHER ==
--- OUTSIDE RECORDS SUMMARY | 2020-04-15 10:24 | XMS REPORT | Continuity of Care Document ---
:1985 Author Organization [facility] Care Team Providers Name Role Phone [facility] Unavailable Un available Problems Problem Status Onset Classification Date Comments Sourc e Date Reported Unspecified 03/16/2018 [place] otitis externa, 8 right ear Cough 03/16/[address] [place] 8 EAR PAIN/ Active [facility] COGESTION 8 [place] BLEEDING, 3WKS Active Mem[facility] 7 Issue Medications Medication Details Route Status Patient Ordering Order Source Instructions Provider Date tramadol 50 mg, Inactive MH hydrochloride 50 Route: PO, 018 [place] MG Oral Tablet Drug form: TAB, ONCE, Dosing Weight 107.273, kg, Priority: STAT, Start date: 12/08/17 23:51:00 [employer], Stop date: 12/08/17 23:51:00 [employer] 200 ACTUAT 2 puff, Active MH Albuterol 0.09 INHALER, 018 [place] MG/ACTUAT Q4H, PRN Metered Dose wheezing, Inhaler [ProAir coughing, HFA] or shortness of breath, # 1 ea, 1 Refill(s) benzonatate 200 200 mg = 1 No Longer MH MG Oral Capsule cap, PO, Active 018 [place] d [Tessalon] TID, PRN as needed for cough, X 7 day, # 21 cap, 0 Refill(s) Ciprofloxacin 3 4 drp, No Longer MH MG/ML / RIGHT EAR, Active 018 [place] Dexamethasone 1 BID, X 7 MG/ML Otic day, # 1 Suspension btl, 0 [Ciprodex] Refill(s) Albuterol 0.833 Notes: Inactive MH MG/ML / (Same as: 018 [place] Ipratropium Duoneb) [place] 0.167 MG/ML Inhalant Solution [DuoNeb] Allergies, Adverse Reactions, Alerts Substance Category Reaction Severity Reaction Status Date Comments S ource type Reported Motrin Assertion Drug Active allergy [place] Immunizations No Data Provided for This Section Results No Data Provided for This Section Pathology Reports No Data Provided for This Section Diagnostic Reports Report Value Date Source Chest 2 views DX EXAM: XR CHEST 2 VIEW 12/08/2017 [facility] DATE: 12/08/2017 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 COMPARISON: 04/24/2010. TECHNIQUE: PA and lateral views of the chest wer e obtained. FINDINGS: No focal consolidation or pn eumothorax is identified. The cardiomediastinal silhouette is within normal limits. The costophrenic recesses are sharp and without effusion. No acute osseous abnormality is noted. IMPRESSION: No acute cardiopulmonary abnormality. SL: [id number] Consultation Notes No Data Provided for This Section Discharge Summaries No Data Provided for This Section History and Physicals No Data Provided for This Section Vital Signs Vital Sign Value Date Comments Source Respitory Rate 18 12/09/2017 [facility] Systolic (mm Hg) 146 12/09/2017 [facility] Diastolic (mm Hg) 95 12/09/2017 [facility] Heart Rate 109 12/09/2017 [facility] Respitory Rate 18 12/09/2017 [facility] Weight 107.273 12/09/2017 [facility] Heart Rate 100 12/09/2017 [facility] Systolic (mm Hg) 141 12/09/2017 [facility] Diastolic (mm Hg) 79 12/09/2017 [facility] d Respitory Rate 20 12/09/2017 [facility] Temperature Oral (F) 98.9 F 12/09/2017 [facility] Weight 103.636 01/08/2017 [facility] BMI Calculated 39.22 01/08/2017 [facility] Height 162.56 cm 01/08/2017 [facility] Systolic (mm Hg) 134 01/08/2017 [facility] Diastolic (mm Hg) 93 [facility] Temperature Oral (F) 98 F 01/08/2017 [facility] Heart Rate 102 01/08/2017 [facility] Respitory Rate 18 01/08/2017 [facility] Encounters Location Location Encounter Encounter Reason Attending ADM DC Stat us Source Details Type Number For Provider Date Date [facility] [id number] Antolin Zuniga 01/08 01/08 [facility] /2016 [facility] Emergency [id number] Umm 12/09 12/09 [facility] /2017 [facility] Procedures No Data Provided for This Section Assessment and Plan No Data Provided for This Section Plan of Care No Data Provided for This Section Social History Social History Date Source Social History TypeResponse 12/09/2017 [facility] Smoking Status Never smoker; Concerns about tobacco use in household: No; Exposure to Tobacco Smoke None; Cigarette Smoking Last 365 Days No; Reg Smoking Cessation Counseling No entered on: 12/08/17 Family History No Data Provided for This Section Advance Directives No Data Provided for This Section Functional Status No Data Provided for This Section
--- OUTSIDE RECORDS SUMMARY | 2020-04-15 10:24 | XMS REPORT | Clinical Summary ---
:1985 Author Organization [facility] Address [address] [place] [address] Care Team Providers Name Role Phone Cm Troy MD Primary Care Provider Allergies Active Allergy Reactions Severity Noted Date Comments Ibuprofen Rash Low 01/04/2018 Medications Medication Sig Dispensed Refills Start Date End Date Status alcohol swabs Test daily 1 each 0 01/09/2018 Acti ve pads, medicated before all meals/snacks and once before bedtime. ACCU-CHEK COMPACT Test daily 200 strip 0 01/09/2018 Active TEST strip before all meals/snacks and once before bedtime. blood-glucose Test daily 1 kit 0 01/09/2018 Acti ve meter, drum-type before all (ACCU-CHEK COMPACT meals/snacks PLUS CARE) kit and once before bedtime. lancing device Test daily 200 each 0 01/09/2018 Act dimas with lancets before all (ACCU-CHEK meals/snacks MULTICLIX LANCET) and once before kit bedtime. lancets (ACCU-CHEK Test daily 200 each 0 01/09/2018 Active MULTICLIX LANCET) before all misc meals/snacks and once before bedtime. insulin syringes, Use as directed 100 each 0 01/09/2018 Active disposable, 1 mL syringe HYDROXYZINE HCL Take 50 mg by 0 Active ORAL mouth 3 (three) times a day as needed (for anxiety). For anxiety glyBURIDE Take 5 mg by 0 Active (DIABETA) 5 MG mouth daily tablet with breakfast. amoxicillin Take 500 mg by 0 Act dimas (AMOXIL) 500 MG mouth 3 (three) capsule times a day. busPIRone (BUSPAR) Take 7.5 mg by 0 Active 7.5 MG tablet mouth 2 (two) times a day as needed (for anxiety). cephalexin Take 500 mg by 0 10/13/2019 Dis continued (KEFLEX) 500 MG mouth 2 (two) capsule times a day. Take 1 tablet 0 10/13/2019 Disco ntinued [id number] by mouth daily. lic 29 mg iron- 1 mg tablet per tablet famotidine Take 1 tablet 30 tablet 0 10/13/2019 11/12/2019 Exp ired (PEPCID) 20 MG (20 mg total) tablet by mouth daily for 30 days. Active Problems Problem Noted Date Acute cystitis with hematuria 01/04/2018 Resolved Problems Problem Noted Date Resolved Date Chest pain 10/13/2019 10/13/2019 Encounters Date Type Specialty Care Team Description 10/12/2019 - Emergency General Internal Grijalva, Chest pain, 10/13/2019 Medicine MD Shmuel unspecified type Yuval Blanchard (Primary Dx) MD Helen after 04/15/2019 Immunizations Name Administration Dates Next Due FLUCELVAX [...] Sign Reading Time Taken Comments Blood Pressure 105/62 10/13/2019 11:49 AM PROCESS IMPROVEMENT ANALYST Pulse 74 10/13/2019 11:49 AM PROCESS IMPROVEMENT ANALYST Temperature 36.8 C (98.2 F) 10/13/2019 11:49 AM PROCESS IMPROVEMENT ANALYST Respiratory Rate 18 10/13/2019 11:49 AM PROCESS IMPROVEMENT ANALYST Oxygen Saturation 98% 10/13/2019 11:49 AM PROCESS IMPROVEMENT ANALYST Inhaled Oxygen Concentration - - Weight 102 kg (225 lb) 10/12/2019 10:57 PM PROCESS IMPROVEMENT ANALYST Height 162.6 cm (5' 4") 10/12/2019 10:57 PM PROCESS IMPROVEMENT ANALYST Body Mass Index 38.62 10/12/2019 10:57 PM PROCESS IMPROVEMENT ANALYST Plan of Treatment Health Maintenance Due Date Last Done Comments DIABETIC RETINAL EYE EXAM 1987 DIABETIC FOOT EXAM 1997 URINE MICROALBUMIN 1997 CERVICAL CANCER SCREENING 2008 INFLUENZA VACCINE 06/27/2020 09/09/2019, 01/09/2018 Procedures Procedure Name Priority Date/Time Associated Comments Diagnosis POC GLUCOSE Routine 10/13/2019 11:48 Results for this AM PROCESS IMPROVEMENT ANALYST procedure are i n the results section. HEMOGLOBIN A1C Routine 10/13/2019 10:24 Results f or this AM PROCESS IMPROVEMENT ANALYST procedure are i n the results section. D-DIMER Routine 10/13/2019 10:24 Results for this AM PROCESS IMPROVEMENT ANALYST procedure are i n the results section. THYROID STIMULATING Routine 10/13/2019 9:54 Resu lts for this HORMONE AM PROCESS IMPROVEMENT ANALYST procedure are i n the results section. TTE COMPLETE, WO Routine 10/13/2019 9:15 Results for this CONTRAST, W DOPPLER AM PROCESS IMPROVEMENT ANALYST procedur e are in ([id number]) the results section. POC GLUCOSE Routine 10/13/2019 7:17 Results for this AM PROCESS IMPROVEMENT ANALYST procedure are i n the results section. TROPONIN Timed 10/13/2019 7:00 Results for this AM PROCESS IMPROVEMENT ANALYST procedure are i n the results section. ECG 12-LEAD Routine 10/13/2019 4:48 Results for this AM PROCESS IMPROVEMENT ANALYST procedure are i n the results section. ESTIMATED GFR Routine 10/13/2019 4:30 Results fo r this AM PROCESS IMPROVEMENT ANALYST procedure are i n the results section. TROPONIN Timed 10/13/2019 4:30 Results for this AM PROCESS IMPROVEMENT ANALYST procedure are i n the results section. IONIZED CALCIUM Routine 10/13/2019 4:30 Results for this AM PROCESS IMPROVEMENT ANALYST procedure are i n the results section. PHOSPHORUS LEVEL Routine 10/13/2019 4:30 Results for this AM PROCESS IMPROVEMENT ANALYST procedure are i n the results section. MAGNESIUM LEVEL Routine 10/13/2019 4:30 Results for this AM PROCESS IMPROVEMENT ANALYST procedure are i n the results section. COMPREHENSIVE METABOLIC Routine 10/13/2019 4:30 Results for this PANEL AM PROCESS IMPROVEMENT ANALYST procedure are i n the results section. HC COMPLETE BLD COUNT Routine 10/13/2019 4:30 Re sults for this W/AUTO DIFF AM PROCESS IMPROVEMENT ANALYST procedure are i n the results section. HEMOGLOBIN A1C Routine 10/13/2019 4:30 Results f or this AM PROCESS IMPROVEMENT ANALYST procedure are i n the results section. LIPID PANEL Routine 10/13/2019 4:30 Results for this AM PROCESS IMPROVEMENT ANALYST procedure are i n the results section. POC GLUCOSE Routine 10/13/2019 2:18 Results for this AM PROCESS IMPROVEMENT ANALYST procedure are i n the results section. CT ANGIOGRAM PE CHEST STAT 10/13/2019 1:18 Re sults for this AM PROCESS IMPROVEMENT ANALYST procedure are i n the results section. URINALYSIS SCREEN AND STAT 10/13/2019 12:16 Re sults for this MICROSCOPY, WITH REFLEX AM PROCESS IMPROVEMENT ANALYST proc edure are in TO CULTURE the results section. HCG QUALITATIVE, URINE Routine 10/13/2019 12:16 R esults for this SCREEN AM PROCESS IMPROVEMENT ANALYST procedure are i n the results section. URINE CULTURE STAT 10/13/2019 12:16 Results fo r this AM PROCESS IMPROVEMENT ANALYST procedure are i n the results section. XR CHEST 1 VW PORTABLE STAT 10/12/2019 11:43 R esults for this PM PROCESS IMPROVEMENT ANALYST procedure are i n the results section. ESTIMATED GFR Routine 10/12/2019 11:00 Results fo r this PM PROCESS IMPROVEMENT ANALYST procedure are i n the results section. B NATRIURETIC PEPTIDE STAT 10/12/2019 11:00 Re sults for this PM PROCESS IMPROVEMENT ANALYST procedure are i n the results section. LIPASE LEVEL STAT 10/12/2019 11:00 Results for this PM PROCESS IMPROVEMENT ANALYST procedure are i n the results section. TROPONIN STAT 10/12/2019 11:00 Results for this PM PROCESS IMPROVEMENT ANALYST procedure are i n the results section. CREATINE KINASE, TOTAL STAT 10/12/2019 11:00 R esults for this (CPK) PM PROCESS IMPROVEMENT ANALYST procedure are i n the results section. COMPREHENSIVE METABOLIC Routine 10/12/2019 11:00 Results for this PANEL PM PROCESS IMPROVEMENT ANALYST procedure are i n the results section. PARTIAL THROMBOPLASTIN Routine 10/12/2019 11:00 R esults for this TIME (PTT) PM PROCESS IMPROVEMENT ANALYST procedure are i n the results section. PROTHROMBIN TIME WITH Routine 10/12/2019 11:00 Re sults for this INR PM PROCESS IMPROVEMENT ANALYST procedure are i n the results section. HC COMPLETE BLD COUNT Routine 10/12/2019 11:00 Re sults for this W/AUTO DIFF PM PROCESS IMPROVEMENT ANALYST procedure are i n the results section. ECG ED PRELIMINARY Routine 10/12/2019 10:58 Resul ts for this INTERPRETATION PM PROCESS IMPROVEMENT ANALYST procedure are in the results section. ECG 12-LEAD STAT 10/12/2019 10:54 Results for this PM PROCESS IMPROVEMENT ANALYST procedure are i n the results section. after 04/15/2019 Results POC glucose (10/13/2019 11:48 AM PROCESS IMPROVEMENT ANALYST)Only the most recent of3 resultswithin the time period is included. Pathologist Sig nature POC glucose 139 (H) 65 - 99 mg/dL JUDAH CON[facility]ISM Comment: [facility] RN Notified Meter ID: [id number] Healthcare Consultant: Gucci Murguia Specimen Performing Organization Address City/State/Zipcode Phone Number [facility] DEPARTMENT OF PATHOLOGY [address] [place] [address]. [facility] [place] [address] [place] [address] [facility] D-dimer (10/13/2019 10:24 AM PROCESS IMPROVEMENT ANALYST) Pathologist [facility] D-dimer <0.27 0.00 - 0.40 JUDAH ALLEN Comment: ug/mL SHERIDAN Units are ug/ml Fibrinogen Equivalent Unit. HOSPITAL When combined with low clinical probability, D-dimer r esults of less than 0.5 ug/ml FEU have a good negative pred ictive value in excluding PE or DVT. For D-dimer results greater than 0.5 ug/ml FEU furth er testing is indicated if PE or DVT is suspected clini maria luisa. Elevated D-dimer results have been reported in DVT, PE , and DIC cases and may indicate the presence of a clot. D-dimer results may be elevated due to old age, pregna ncy, inflammatory diseases, trauma, post-operative states, sepsis, and malignancies. Specimen Blood Performing Organization Address City/State/Zipcode Phone Number [facility] DEPARTMENT OF PATHOLOGY [address] [place] [address]. [facility] [place] [address] [place] [address] [facility] Hemoglobin A1c (10/13/2019 10:24 AM PROCESS IMPROVEMENT ANALYST)Only the most recent of2 resultswithin the time period is included. Pathologist [facility] Hemoglobin A1C 6.3 (H) 4.0 - 5.6 % JUDAH ALLEN Comment: SHERIDAN HbA1c cutoffs for diagnosing diabetes: HO SPITAL 4.0% - 5.6% = normal 5.7% - 6.4% = increased risk for diabetes (prediabetes )9 >=6.5% = diabetes9 Goals for glycemic control (ADA 2016) < 7.0% Target for non adults with diabetes. More or less stringent targets may be appropriate for individual patients. <7.5% Target for Children and adolescents with type 1 diabetes. Specimen Blood Performing Organization Address City/State/Zipcode Phone Number [facility] DEPARTMENT OF PATHOLOGY [address] [place] [address]. [facility] [place] [address] [facility] [place] [address] [facility] Thyroid stimulating hormone (10/13/2019 9:54 AM PROCESS IMPROVEMENT ANALYST) Pathologist [facility] TSH 2.31 0.27 - 4.20 uIU/mL [facility] Juany [facility] Specimen Blood Performing Organization Address City/State/Zipcode Phone Number [facility] DEPARTMENT OF PATHOLOGY [address] [facility] [place] [address] AND GENOMIC MEDICINE [facility] GINGER [facility] [address] [facility] [address] [facility] Echocardiogram complete w contrast and 3D if needed (10/13/2019 9:15 AM PROCESS IMPROVEMENT ANALYST) Pathologist [facility] Velocity Ratio (V1/V2) 0.90 m/s SYNGO IVS,d 0.96 cm SYNGO EF 77.26 % SYNGO LVPWD,d 0.88 cm HM SYNGO AoV Mean PG 4.86 mmHg SYNGO AV LVOT peak gradient 6.26 mmHg SYNGO MV mean gradient 1.56 mmHg SYNGO MV valve area p 1/2 method 3.25 cm2 SYNGO E/A ratio 1.44 SYNGO E wave decelartion time 233.46 msec SYNGO LVOT Diam,S 2.11 cm HM SYNGO LVOT area 3.49 cm2 HM SYNGO LVOT Vmax 1.25 m/s HM SYNGO LVOT VTI 0.23 m HM SYNGO AoV Peak PG 7.72 mmHg HM SYNGO MV Peak E Colton 1.04 m/s HM SYNGO MV stenosis pressure 1/2 time 67.70 ms HM SYNGO MV Peak A [place] 0.72 m/s HM SYNGO Ao Root Diameter 2.80 cm HM SYNGO AoV Area, Vmax 3.15 cm2 HM SYNGO AoV Area, VTI 3.02 cm2 HM SYNGO AoV Vmax 1.39 m/s HM SYNGO IVS/LVPW,2D 1.08 HM SYNGO Left Atrium Dimension Anterior 4.26 cm HM SYNGO LV,d 4.68 cm HM SYNGO LV,s 2.53 cm HM SYNGO MV E A ratio 1.43 SYNGO MR peak grad 3.89 mmHg HM SYNGO Ao Root Diameter 2.80 cm HM SYNGO LV SYS VOL 23.05 ml HM SYNGO LV LEDESMA VOL 101.38 ml HM SYNGO LV SV Teich 2D 78.34 ml HM SYNGO LV Vol s Teich PSAX 23.05 ml HM SYNGO MV Vmax 0.99 m HM SYNGO MV VTI Tips 0.26 m HM SYNGO AoV Vmn 1.07 HM SYNGO LV FS Cube 2D 45.90 HM SYNGO LV FS Teich 2D 45.90 HM SYNGO LVPW d Mmode 0.89 HM SYNGO AoV VTI 0.26 m HM SYNGO LA Area d A4C 16.85 cm2 HM SYNGO LV EF,2D 84.16 % HM SYNGO MV AE ratio 0.70 HM SYNGO LVOT Vmn 0.82 HM SYNGO Aov area Vmn 2.68 cm2 HM SYNGO LA Vol d MOD A4C 39.58 ml HM SYNGO LVOT mean grad 3.17 mmHg HM SYNGO MAX Pred HR 187.25 HM SYNGO 85 of MPHR 159.17 HM SYNGO Calc MPHR 187.25 bpm HM SYNGO LV SV Cube 2D 86.31 ml HM SYNGO LV vol d cube 2D 102.55 ml HM SYNGO LV vol s cube 2D 16.24 ml HM SYNGO MV Decel slope 4.44 m/s2 HM SYNGO Pred Exer Dur R1 10.85 HM SYNGO Pred METS R1 10.44 HM SYNGO Specimen Narrative Performed At This result has an attachment that is no t available. Normal left ventricular size and function with an EF~ 55% to 60%. HM SYNGO Normal right ventricular size and function. Structurally normal cardiac valves. Left atrial enlargement. Normal pericardium with no effusion. Grade 1 diastolic dysfunction. Performing Organization Address City/[facility] Cent[facility]ode Phone Number [employer] [address] [place] [address], Troponin (10/13/2019 7:00 AM PROCESS IMPROVEMENT ANALYST)Only the most recent of3 resultswithin the time period is included. Troponin <0.006 0.000 - 0.040 SO [facility] Comment: ng/mL [facility] [place] [facility] changed methodology eff ective: HOSPITAL 04/02/2019 at 10:00 am The new method has a 99th percentile cutoff of 0.040 n g/mL Specimen Plasma specimen Performing Organization Address City/[facility]/Zipcode Phone Number [facility] DEPARTMENT OF PATHOLOGY [address] [facility] [address] AND GENOMIC MEDICINE [facility] [place] [address] [facility] [address] [facility] ECG 12 lead (10/13/2019 4:48 AM PROCESS IMPROVEMENT ANALYST)Only the most recent of2 resultswithin the time period is included. Pathologist Sig nature Ventricular rate 75 [facility]USE Atrial rate 75 [facility] MUSE TX interval 176 [facility] QRSD interval 84 [facility] QT interval 406 [facility] QTC interval 453 [facility] P axis 1 26 [facility] M[facility] QRS axis 1 12 [facility] T wave axis 28 [facility] EKG impression Normal sinus rhythm-Possible Anterior infarct (cited on or before 13-OCT-2019)-Abnormal ECG-In automated comparison with ECG of 13-OCT-2019 04:48,-No significant change was found-Electronically Signed B [facility] MUSE y Tayo PASTOR, Ruben Rachel (2007) on 10/13/2019 7:31:01 PM Specimen Narrative Performed At This result has an attachment that is no t available. Performing Organization Address City/State/Zipcode Phone Number [facility] MUSE [address] [place] [address] Estimated GFR (10/13/2019 4:30 AM PROCESS IMPROVEMENT ANALYST)Only the most recent of2 resultswithin the time period is included. Pathologist [facility] Estimated GFR >=90 mL/min/1.73 [facility] Comment: m2 SHERIDAN Catergory Units Interpretation HOS PITAL G1 >=90 Normal or high G2 60-89 Mildly decreased G3a 45-59 Mildly to moderately decreas ed G3b 30-44 Moderately to severely decre ased G4 15-29 Severely decreased G5 <15 Kidney failure The eGFR was calculated using the Chronic Kidney Disea se Epidemiology Collaboration (CKD-EPI) equation. Interpretation is based on recommendations of the National Kidney Foundation-Kidney Disease Outcomes Tristen lity Initiative (NKF-KDOQI) published in 2014. Specimen Plasma specimen Performing Organization Address City/State/Zipcode Phone Number [facility] DEPARTMENT OF PATHOLOGY [address] [facility] [place] [address] AND GENOMIC MEDICINE [facility] [address] [facility] [place] [address] [facility] CBC with platelet and differential (10/13/2019 4:30 AM PROCESS IMPROVEMENT ANALYST)Only the most recent of2 resultswithin the time period is included. WBC 10.6 4.5 - 11.0 k/uL [facility] RBC 3.80 (L) 4.20 - 5.50 [facility] m/uL [facility] HGB 12.1 12.0 - 16.0 [facility] g/dL [facility] HCT 37.1 37.0 - 47.0 % [facility] MCV 97.6 82.0 - 100.0 fL [facility] MCH 31.8 27.0 - 34.0 pg [facility] MCHC 32.6 31.0 - 37.0 [facility] - SD 46.0 37.0 - 55.0 fL [facility] MPV 10.1 6.9 - 11.0 fL [facility] Platelet count 266 150 - 400 K/uL [facility] Nucleated RBC 0.00 /100 WBC [facility] Neutrophils 55.6 39.0 - 69.0 % [facility] Lymphocytes 37.2 25.0 - 45.0 % [facility] Monocytes 5.6 0.0 - 10.0 % [facility] Eosinophils 1.0 0.0 - 5.0 % [facility] Basophils 0.3 0.0 - 1.0 % [facility] Immature granulocytes 0.3 0.0 - 1.0 % [facility] Specimen Blood Performing Organization Address City/State/Zipcode Phone Number [facility] DEPARTMENT OF PATHOLOGY [address] [place] [address] [address] [place] [address] HOSPITAL Phosphorus level (10/13/2019 4:30 AM PROCESS IMPROVEMENT ANALYST) Pathologist Sig nature Phosphorus 3.9 2.4 - 4.5 mg/dL [facility] Specimen Plasma specimen Performing Organization Address City/[facility]/Zipcode Phone Number [facility] DEPARTMENT OF PATHOLOGY [id number] [place] [address] AND [facility] MEDICINE [address] [place] [address] HOSPITAL Magnesium level (10/13/2019 4:30 AM PROCESS IMPROVEMENT ANALYST) Pathologist Sig nature Magnesium 2.0 1.6 - 2.6 mg/dL [facility] Specimen Plasma specimen Performing Organization Address [facility] Centercode Phone Number [facility] DEPARTMENT OF PATHOLOGY [address] [place] [address] [facility] [id number] [place] [address] [facility] Ionized calcium (10/13/2019 4:30 AM PROCESS IMPROVEMENT ANALYST) Pathologist Sig nature pH 7.42 [facility] Ionized calcium 1.04 (L) 1.11 - 1.32 [facility] mmol/L [facility] Specimen Plasma specimen Performing Organization Address [facility] Centercode Phone Number [facility] DEPARTMENT OF PATHOLOGY [address] [place] [address] [id number] [place] [address] Lipid panel (10/13/2019 4:30 AM PROCESS IMPROVEMENT ANALYST) Cholesterol 116 0 - 199 [place] mg/dL [facility] Triglycerides 65 0 - 149 [place] mg/dL [facility] HDL cholesterol 31 (L) 40 - 99,999 [place] mg/dL [facility] LDL cholesterol 84 0 - 99 mg/dL [facility] Lipid panel See below [place] interpretation Comment: CONFUCIANISM SUGAR Total Cholesterol (mg/dL) [facility] <200 Desirable 200-239 Borderline-high >=240 High Triglycerides (mg/dL) <150 Normal 150-199 Borderline-high 200-499 High >=500 Very high HDL Cholesterol (mg/dL) <40 Low (male) <50 Low (female) LDL Cholesterol (mg/dL) <100 Optimal 100-129 Near or above optimal 130-159 Borderline-high 160-189 High >=190 Very high Risk Catergories that modify LDL goals. Risk Catergories LDL goal (mg/d L) CHD and CHD risk equivalent <100 (10-year risk >20%) Multiple (2+) risk factors <130 (10-year risk =<20%) 0-1 risk factors <160 (<10-year risk) Defining levels of lipids in metabolic syndrome Triglycerides >=150 mg/dL HDL Cholesterol Men <40 mg /dL Women <50 mg/ dL Non-HDL cholesterol is a second target for therapy in persons with high triglycerides (>=200 mg/dL) Specimen Plasma specimen Performing Organization Address City/[facility]/Zipcode Phone Number [facility] DEPARTMENT OF PATHOLOGY [address] [facility] [place] [address] [facility] [id number] [place] [id number] [place] [address] Comprehensive metabolic panel (10/13/2019 4:30 AM PROCESS IMPROVEMENT ANALYST)Only the most recent of2 resultswithin the time period is included. Pathologist Sig nature Sodium 137 135 - 148 mEq/L [facility] Potassium 3.5 3.5 - 5.0 mEq/L [facility] Chloride 102 98 - 112 mEq/L [facility] CO2 22 (L) 24 - 31 mEq/L [facility] Anion gap 13@ANIO 7 - 15 mEq/L [facility] BUN 10 6 - 20 mg/dL [facility] Creatinine 0.55 0.50 - 0.90 [facility] mg/dL [facility] Glucose 114 (H) 65 - 99 mg/dL [facility] Calcium 8.9 8.3 - 10.2 mg/dL [facility] Protein 6.9 6.3 - 8.3 g/dL [facility] Albumin 3.8 3.5 - 5.0 g/dL [facility] A/G ratio 1.2 0.7 - 3.8 [facility] Alkaline phosphatase 52 35 - 104 U/L [facility] AST 14 10 - 35 U/L [facility] ALT 14 5 - 50 U/L [facility] Total bilirubin 0.5 0.2 - 1.2 mg/dL [facility] Specimen Plasma specimen Performing Organization Address [facility]/Zipcode Phone Number [facility] DEPARTMENT OF PATHOLOGY [address] [facility] [place] [address] [facility] [address] [facility] [place] [phone] [place] [address] CT Angiogram Pe Chest (10/13/2019 1:18 AM PROCESS IMPROVEMENT ANALYST) Specimen Narrative Performed At EXAMINATION: RADIANT CT ANGIOGRAM PE CHEST CLINICAL HISTORY:34 years Female CP SOB TECHNIQUE: CT angiographic images of the chest were obtained during intravenous administration of iodinated contrast. Comp uterized reformatted images and 3-D MIP images were also obtain ed and archived (CT pulmonary embolus protocol). CT imag ing was performed with iterative reconstruction techniques and /or automated exposure control to reduce radiation dos e. COMPARISON: Chest radiograph performed on the same d ay, CT abdomen/pelvis 01/05/2018 FINDINGS: CHEST: Pulmonary arteries: No evidence of acute pulmonary emb olism. The main pulmonary trunk is within normal limits in caliber. Lungs and airways: No acute airspace disease or suspic ious pulmonary nodules. A punctate calcified granuloma seen in the left lower lobe. Pleura: No pleural effusion or pneumotho rax. Mediastinum and lymph nodes: No lymphade nopathy. Cardiovascular: The heart size is normal. No evidence of right heart strain. No pericardial effusion. The thoracic aorta is normal in caliber. No dissection. Upper abdomen: Changes of cholecystectom y are seen. Bones: No suspicious osseous lesions. Other: None. IMPRESSION: 1.No acute pulmonary embolus. [facility]-[id number] Procedure Note Interface, Radiology Results Incoming - 10/13/2019 1:26 AM PROCESS IMPROVEMENT ANALYST EXAMINATION: CT ANGIOGRAM PE CHEST CLINICAL HISTORY:34 years Female CP SOB TECHNIQUE: CT angiographic images of th e chest were obtained during intravenous administration of iodinated contrast. Computerized reformatted images and 3-D MIP images were also obtained and archived (CT pulmonary embolus protocol). CT imaging was performed with iterative reconstruction techniques and/or automated exposure control to reduce radiation dose. COMPARISON: Chest radiograph performed on the same d ay, CT abdomen/pelvis 01/05/2018 FINDINGS: CHEST: Pulmonary arteries: No evidence of acute pulmonary embolism. The main pulmonary trunk is within normal limits in caliber. Lungs and airways: No acute airspace dis ease or suspicious pulmonary nodules. A punctate calcified granuloma seen in the left lower lobe. Pleura: No pleural effusion or pneumotho rax. Mediastinum and lymph nodes: No lymphade nopathy. Cardiovascular: The heart size is normal . No evidence of right heart strain. No pericardial effusion. The thoracic aorta is normal in caliber. No dissection. Upper abdomen: Changes of cholecystectom y are seen. Bones: No suspicious osseous lesions. Other: None. IMPRESSION: 1.No acute pulmonary embolus. [facility]-[id number] Performing Organization Address City/State/Zipcode Phone Number [facility] [address] [place] [address] Urinalysis screen and microscopy, with reflex to culture (10/13/2019 12:16 AM PROCESS IMPROVEMENT ANALYST) Specimen site Clean catch [facility] Color, UA Yellow [facility] Appearance, UA Clear [facility] Specific gravity, 1.019 1.001 - 1.030 [facility] pH, UA 6.0 5.0 - 9.0 [facility] Protein, UA Negative Negative [facility] Glucose, UA Negative Negative [facility] Ketones, UA Negative Negative [facility] Bilirubin, UA Negative Negative [facility] Blood, UA Small Negative [facility] (A)Comment: [facility] confirmed, test repeated Nitrite, UA Negative Negative [facility] Urobilinogen, UA <2.0 <2.0 E.U./dL [facility] Leukocyte esterase, Negative Negative [facility] Epithelial cells, <1 /HPF [facility] Round epithelial <1 0 - 5 /HPF [facility] cells, [facility] WBC, UA 3 0 - 4 /HPF [facility] RBC, UA 2 0 - 5 /HPF [facility] Bacteria, UA None seen None seen [facility] Yeast, UA None seen [facility] Yeast with None seen [facility] pseudohyphae, [facility] Specimen Urine Performing Organization Address City/[facility]/Zipcode Phone Number [facility] DEPARTMENT OF PATHOLOGY [address] [place] [address] X [phone] AND GENOMIC [facility] [id number] [place] [phone] [place] [address] hCG qualitative, urine screen (10/13/2019 12:16 AM PROCESS IMPROVEMENT ANALYST) hCG qualitative, NegativeComment: [facility] urine Sensitivity of HCG SHERIDAN test: 25 mIU/ml HOSPITAL Specimen Urine Performing Organization Address City/[facility]/Zipcode Phone Number [facility] DEPARTMENT OF PATHOLOGY [address] [place] [address] X [phone] AND GENOMIC MEDICINE [facility] [address] [place] [phone] [place] [address] Urine culture (10/13/2019 12:16 AM PROCESS IMPROVEMENT ANALYST) Pathologist Sig nature Urine culture SEE COMMENTComment: [facility] Bacteriuria screen [facility] negative. Specimen Performing Organization Address [facility] Centercode Phone Number [facility] DEPARTMENT OF PATHOLOGY [id number] [place] [address] X [phone] [place] [address] HOSPITAL XR Chest 1 Vw Portable (10/12/2019 11:43 PM PROCESS IMPROVEMENT ANALYST) Specimen Narrative Performed At EXAMINATION: XR CHEST 1 VW PORTABLE RADIANT CLINICAL HISTORY: chest pain COMPARISON: Chest radiograph 01/04/2018 IMPRESSION: No pneumothorax, pleural effusion or foc al consolidation. Normal cardiomediastinal silhouette. No acute osseous abnormality. [facility]-[id number] Procedure Note Hm Interface, Radiology Results Incoming - 10/12/2019 11:58 PM PROCESS IMPROVEMENT ANALYST EXAMINATION: XR CHEST 1 VW PORTABLE CLINICAL HISTORY: chest pain COMPARISON: Chest radiograph 01/04/2018 IMPRESSION: No pneumothorax, pleural effusion or foc al consolidation. Normal cardiomediastinal silhouette. No acute osseous abnormality. [facility]-[id number] Performing Organization Address [facility] Centercoin Phone Number [facility] [address] [place] [address] Partial thromboplastin time, activated (10/12/2019 11:00 PM PROCESS IMPROVEMENT ANALYST) PTT 32.1 23.0 - 36.0 JUDAH ALLEN Comment: [facility] PTT therapeutic range for unfractionated heparin is HOSPITAL 61.0-112.0 seconds which corresponds to Anti-Xa 0.3-0.7 U/ml. Specimen Blood Performing Organization Address [facility]/Zipcode Phone Number [facility] DEPARTMENT OF PATHOLOGY [id number] [place] [address] X [phone] [place] [address] HOSPITAL Prothrombin time with INR (10/12/2019 11:00 PM PROCESS IMPROVEMENT ANALYST) Prothrombin time 13.9 11.5 - 14.5 [facility] INR 1.1 JUDAH Comment: TIFFANY PATEL [facility] International Normalized Ratio (INR) is a [facility] monitoring tool for patients who are stable on oral anticoagulant therapy. An INR of 2.0-3.0 is suggested for deep vein thrombosis/pulmonary embolism. Specimen Blood Performing Organization Address [facility] Centercode Phone Number [facility] DEPARTMENT OF PATHOLOGY [address] [place] [address] X [phone] [place] [phone] [facility] B natriuretic peptide (10/12/2019 11:00 PM PROCESS IMPROVEMENT ANALYST) Pathologist Sig nature BNP <3 0 - 100 pg/mL [facility] D [facility] Specimen Blood Performing Organization Address City/[facility] Centercode Phone Number [facility] DEPARTMENT OF PATHOLOGY [address] [place] [address] X [phone] [place] [phone] [facility] Lipase level (10/12/2019 11:00 PM PROCESS IMPROVEMENT ANALYST) Pathologist Sig nature Lipase 23 13 - 60 U/L [facility] Specimen Plasma specimen Performing Organization Address [facility] Centercoin Phone Number [facility] DEPARTMENT OF PATHOLOGY [address] [place] [address] [phone] [place] [address] [facility] Creatine kinase, total (CPK) (10/12/2019 11:00 PM PROCESS IMPROVEMENT ANALYST) Pathologist Sig nature Creatine kinase 74 26 - 192 U/L [facility] Specimen Plasma specimen Performing Organization Address [facility] Centercode Phone Number [facility] DEPARTMENT OF PATHOLOGY [address] [place] [address], X [phone] [place] [address] [facility] ECG ED Preliminary Interpretation - Not an Order (10/12/2019 10:58 PM PROCESS IMPROVEMENT ANALYST) Narrative Performed At Shmuel Grijalva MD 10/13/2019 5:41 AM ECG ED Preliminary Interpretation - Not an Order Performed by: Shmuel Grijalva MD Authorized by: Shmuel Grijalva MD ECG reviewed by ED Physician in the abse nce of a ship rigger apprentice: yes Previous ECG: Previous ECG: Unavailable Interpretation: Interpretation: non-specific Rate: ECG rate: 99 ECG rate assessment: normal Rhythm: Rhythm: sinus rhythm Ectopy: Ectopy: none QRS: QRS axis: Normal QRS intervals: Normal Conduction: Conduction: normal ST segments: ST segments: Non-specific T waves: T waves: non-specific and inverted Comments: Normal sinus rhythm, no evidence of acute ischemic changes after 04/15/2019 Additional Health Concerns Infection Noted Time Resolved Time ESBL (C ) 01/08/2018 10:22 AM PROCESS IMPROVEMENT ANALYST Advance Directives For more information, please contact: [phone] Type Date Recorded 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
--- OUTSIDE RECORDS SUMMARY | 2020-04-15 10:27 | XMS REPORT ---
[...] Instructions Start Date End Date Status Dosage Aelx [facility] 75572116562 100 MG Orally Active 1 tabl et Once a day Results No Known Results Summary Purpose eClinicalWorks Submission
--- OUTSIDE RECORDS SUMMARY | 2020-04-15 10:27 | XMS REPORT ---
[...] Status Dosage System Date Date BusPIRone HCl [facility] 95373418501 7.5 MG Orally April 18, Active 1 tablet as Twice a day 2019 needed for anxiety Vitamin D [facility] 72022076704 2000 UNIT Active 1 tablet Orally Once a day Atorvastatin ND 02295128105 10 MG Orally Active 1 tablet Calcium Once a day Orphenadrine [facility] [address]-38 100 MG Orally Active as directed Citrate ER Meclizine HCl [facility] 60396252689 25 MG Orally April Active 1 tablet as Twice daily 07, needed for 2019 dizziness Lisinopril ND 43097160387 5 MG Orally Active 1 tab let Once a day Pioglitazone HCl [facility] 58371066783 15 MG Orally May Active 1 tablet Once a day for , diabetes 2019 Amoxicillin [facility] 26832376762 500 MG Orally Active 1 capsule Twice a day Loratadine [facility] 44026153031 10 MG Orally Active 1 ta blet Once a day GlipiZIDE XL [facility] 35467831618 5 MG Orally Active 1 t ablet with Once a day food Triamcinolone [facility] 26850610066 0.1 % April Active 1 appl ication Acetonide Externally 28, to affected Twice a day 2019 areas Alogliptin [facility] 13981282703 25 MG Orally April Active 1 ta blet Benzoate Once a day for , diabetes 2019 Results No Known Results Summary Purpose eClinicalWorks Submission
--- OUTSIDE RECORDS SUMMARY | 2020-04-15 10:27 | XMS REPORT ---
[...] Status Dosage System Date Date Atorvastatin [facility] 38284694486 10 MG Orally Active 1 tablet Calcium Once a day Meclizine HCl ND 62088612982 25 MG Orally April Active 1 tablet as bid prn 07, needed 2019 Alogliptin ND 47045452864 25 MG Orally April Active 1 ta blet Benzoate Once a day for 28, diabetes 2019 Amoxicillin ND 13854388338 500 MG Orally Active 1 capsule Twice a day Vitamin D [facility] 92656818088 2000 UNIT Active 1 tablet Orally Once a day Orphenadrine [facility] [address]-10 100 MG Orally Active as directed Citrate ER Lisinopril ND 29537178530 5 MG Orally Active 1 tab let Once a day GlipiZIDE XL [facility] 09715310925 5 MG Orally Active 1 t ablet with Once a day food Januvia [facility] 28141758034 100 MG Orally Inactive 1 tab let Once a day Loratadine [facility] 33366888283 10 MG Orally Active 1 ta blet Once a day BusPIRone HCl [facility] 29594259840 7.5 MG Orally April 18, Active 1 tablet as Twice a day 2018 needed for anxiety Triamcinolone [facility] 58665128310 0.1 % April Active 1 appl ication Acetonide Externally 28, to affected Twice a day 2019 areas Results No Known Results Summary Purpose eClinicalWorks Submission
--- OUTSIDE RECORDS SUMMARY | 2020-04-15 10:27 | XMS REPORT ---
:1985 Author Organization [facility] t Address [address] [place] [address] Care Team Providers Name Role Phone Cm Troy MD Primary Care Physician Shmuel Grijalva MD Attending Clinician Yuval Blanchard MD Attending Clinician Suman Duran Attending Clinician Santo Zuniga Attending Clinician Payers Payer Name Policy Type Policy Number Effective Date Expiration Date S danya UHC MEDICAREUHC xxxxxxxxx 2019 [place] DUAL COMPLETE 00:00:00 [place] [id number]/[id number] Problems Condition Condition Condition Status Onset Resolution Last Treating Co mments Source Name Details Category Date Date Treatment Clinician Date Acute Acute Disease Active [place] cystitis cystitis 2-08 Method i with with 00:00: st hematuria hematuria 00 Diabetes [facility] Asthma Asthma Problem [facility] High blood High blood Problem Active [facility] pressure [facility] Uterine Uterine Problem Active [facility] bleeding bleeding [facility] Left Left Problem Active [facility] ovarian ovarian [facility] cyst cyst [facility] Obesity Obesity Problem Active [facility] (BMI (BMI [facility] - 30-39.9) 30-39.9) Memori a l [facility] Difficulty Difficulty Problem Active [facility] sleeping sleeping [facility] Anxiety Anxiety Problem [facility] Dietary Dietary Problem Active [facility] surveillan surveillan Virginie kes - ce and ce and Memoria counseling counseling l [facility] Right Right Problem Active [facility] upper upper [facility] - quadrant quadrant Memori a pain pain l [facility] Ingrown Ingrown Problem Active [facility] toenail of toenail of [place] kes - right foot right foot Me moria l [facility] Sinus Sinus Problem Active [facility] problem problem [facility] Hyperchole Hyperchole Problem Active [facility] sterolemia sterolemia [place] kes - Memoria [facility] Uncontroll Uncontroll Problem Active [facility] ed type 2 ed type 2 Luke s - diabetes diabetes Memori a mellitus mellitus l with with [facility] hyperglyce hyperglyce en t [facility] Seasonal Seasonal Problem Active [facility] allergies allergies Luke s - [facility]oria [facility] Migraine Migraine Problem Active [facility] Dizziness Dizziness Problem Active [facility] Depression Depression Problem Active [facility] screening screening Luke s - Memoria [facility] Rash and Rash and Problem Active [facility] t nonspecifi nonspecifi [place] kes - c skin c skin Memoria eruption eruption l [facility] Allergic Allergic Problem Active [facility] rhinitis, rhinitis, Luke s - unspecifie unspecifie Me moria d d l seasonalit seasonalit Ou tpati y, y, ent unspecifie unspecifie Cl inics d trigger d trigger Frequent Frequent Problem Active [facility] headaches headaches Luke [facility] - [facility] Epigastric Epigastric Problem Active [facility] pain pain [facility] Generalize Generalize Problem Active [facility] d weakness d weakness [place]ie kes - Memoria [facility] Shortness Shortness Problem Active [facility] of breath of breath Luke [facility] - Memoria l [facility] Pain of Pain of Problem Active [facility] upper [facility] - abdomen abdomen Memoria l [facility] Constipati Constipati Problem Active [facility] on, on, [facility] - unspecifie unspecifie Me moria d d l constipati constipati Ou tpati on type on type ent Clinics Morbid Morbid Problem Active [facility] obesity obesity [facility] Allergies, Adverse Reactions, Alerts Allergy Allergy Status Severity Reaction(s) Onset Inactive Treating Comm ents Source Name Type Date Date Clinician ibuprofe DA Active [facility] Ibuprofe Propensi Active Rash [place] ty to 08 Methodi adverse 00:00: st reaction 00 s to drug ibuprofe DA Active [facility]- [facility] 00 l [facility] Social History Social Habit Start Date Stop Date Quantity Comments Source Sex Assigned At [facility] ethodist Alcohol intake 2019-10-12 2019-10-12 Current [facility] 00:00:00 00:00:00 non-drinker of alcohol (finding) Smoking Status Start Date Stop Date Source Never smoker [place] Methodis t Medications Ordered Filled Start Stop Current Ordering Indication Dosage Frequency Signature Comments Components Source Medication Medication Date Date Medication? Clinician (SIG) Name Name HYDROXYZINE 2018-11 Yes 50mg [id number] Take 50 mg [facility] HCL ORAL -17 [id number] by mouth 3 Methodi 15:33: 3D (three) st 01 times a day as needed (for anxiety). For anxiety glyBURIDE 2018-11 Yes 5mg QD Take 5 mg Luke ston (DIABETA) 5 17 by mouth Meth erlinda MG tablet 15:33: daily with st 01 breakfast. amoxicillin 2018-11 Yes 500mg Q.[id number] Take 500 [place] (AMOXIL) 1-17 [id number] mg by Meth erlinda 500 MG 15:33: 3D mouth 3 st capsule 01 (three) times a day. busPIRone 2018-11 Yes 7.5mg Q.5D Take 7.5 [facility] (BUSPAR) 1-17 mg by Methodi 7.5 MG 15:33: mouth 2 st tablet 01 (two) times a day as needed (for anxiety). 2018-11 2019- No 1{tbl} QD Take 1 [place] vit,calc76- -17 11-17 tablet by Me thodi iron-folic 02:32: 00:[address] 29 mg iron- 24 :00 daily. 1 mg tablet per tablet cephalexin 2018-11- No 500mg Q.5D Take 500 [place] (KEFLEX) -17 11-17 mg by Methodi 500 MG 02:32: 00:[address] capsule 09 :00 (two) times a day. famotidine 2018-11- No 20mg QD Take 1 [place] (PEPCID) 20 -17 -17 tablet (20 M ethodi MG tablet 00:00: 23:59 mg total) st 00 :00 by mouth daily for 30 days. BELVIQ BELVIQ 2019- No Klarissa [address] 8-02 11-30 [facility] - 00:00: 00:00 [facility]oria 00 :00 l Outpati ent Clinics [facility] 2019- No Klarissa [address] 7-13 08-12 [facility] - 00:[facility]: 00:00 [facility] 00 :00 l [facility]pat[facility] ent Clinics Pioglitazon Pioglitazon Yes Klarissa [address] [facility] e HCl e HCl 7-05 [facility]ender [facility] - 00:00: Memoria 00 l Outpati ent Clinics Alogliptin Alogliptin Yes Klarissa [address] Benzoate Benzoate 6-28 Millender Virginie kes - 00:00: Memoria 00 l Outpati ent Clinics Triamcinolo Triamcinolo Yes Klarissa [address] [facility] ne ne 6-28 Millender applicatio Luke s - Acetonide Acetonide 00:00: n to Mem oria 00 affected l areas Outpati ent Clinics Meclizine Meclizine Yes Klarissa [address] HCl HCl 6-07 Millender as needed [facility] - 00:00: for Memoria 00 dizziness l Outpati ent Clinics BusPIRone BusPIRone Yes Klarissa [address] HCl HCl 5-23 Millender as needed [facility] - 00:00: for Memoria 00 anxiety l [facility] Clinics alcohol Yes Test daily [place] swabs pads, 2-13 before all Me thodi medicated 00:00: meals/snac st 00 ks and once before bedtime. ACCU-CHEK 2017- Yes Test daily [place] COMPACT 2-13 before all Method i TEST strip 00:00: meals/snac s t 00 ks and once before bedtime. blood-gluco 2017- Yes Test daily [place] se meter, 2-13 before all Meth erlinda drum-type 00:00: meals/snac st (ACCU-CHEK 00 ks and COMPACT once PLUS CARE) before kit bedtime. lancing Yes Test daily [place] device with 2-13 before all Me thodi lancets 00:00: meals/snac st (ACCU-CHEK 00 ks and MULTICLIX once LANCET) kit before bedtime. lancets 0 Yes Test daily [place] (ACCU-CHEK 2-13 before all Met hodi MULTICLIX 00:00: meals/snac st LANCET) 00 ks and misc once before bedtime. insulin Yes Use as [place] syringes, 2 directed Method i disposable, 00:00: st 1 mL 00 syringe Atorvastati Atorvastati Yes Klarissa [address] n Calcium n Calcium [facility]ender [facility] Amoxicillin Amoxicillin Yes Klarissa [address] [facility]ender [facility]ics Vitamin D Vitamin D Yes K[place]issa [address] Millender [facility] Orphenadrin Orphenadrin Yes Klarissa as [facility] e Citrate e Citrate Millender directed [facility] - ER ER Memoria l [facility] Clinics Lisinopril Lisinopril Yes K[place]issa [address] [facility]ender [facility]ics GlipiZIDE GlipiZIDE Yes [place] [address] XL XL Millender with food [facility]ics Loratadine Loratadine Yes [place] [address] [facility]ender [facility] Immunizations Ordered Immunization Filled Immunization Date Status Commen ts Source Name Name LUCIA MARQUEZ PF 2018-01-09 Completed [place] 00:00:00 [place] Vital Signs Vital Name Observation Time Observation Value Comments Source Systolic blood 2019-10-13 11:49:21 105 mm[Hg] Gustavo Ferreira pressure Diastolic blood 2019-10-13 11:49:21 62 mm[Hg] [place] pressure Heart rate 2019-10-13 11:49:21 74 /min [place] [facility] Body temperature 2019-10-13 11:49:21 36.78 Miladis [place] Respiratory rate 2019-10-13 11:49:21 18 /min [place] Oxygen saturation in 2019-10-13 11:49:21 98 /min Sergio Ferreira Arterial blood by Pulse oximetry Body height 2019-10-12 22:57:00 162.6 cm [place] [facility] Body weight 2019-10-12 22:57:00 102.059 kg Sergio Ferreira BMI 2019-10-12 22:57:00 38.62 kg/m2 [place] [facility] Procedures Procedure Date / Time Performing Clinician Source Performed POC GLUCOSE 2019-10-13 11:48:00 Yuval Blanchard ethodist D-DIMER 2019-10-13 10:24:00 Ruben Cr ethodist HEMOGLOBIN A1C 2019-10-13 10:24:00 Ruben Cr ethodist THYROID STIMULATING 2019-10-13 09:54:[address] on [place]ism HORMONE TTE COMPLETE, WO CONTRAST, 2019-10-13 09:15:00 Danita Neville W DOPPLER ([id number]) Linda POC GLUCOSE 2019-10-13 07:17:00 Yuval Blanchard ethodist TROPONIN 2019-10-13 07:00:00 Shmuel Grijalva thodist ECG 12-LEAD 2019-10-13 04:48:47 Ruben Cr ethodist LIPID PANEL 2019-10-13 04:30:00 Danita Neville Linda HEMOGLOBIN A1C 2019-10-13 04:30:00 Danita Neville HC COMPLETE BLD COUNT 2019-10-13 04:30:00 Danita Neville n [place]ism W/AUTO DIFF Linda COMPREHENSIVE METABOLIC 2019-10-13 04:30:00 Danita Neville [facility]ism PANEL Linda MAGNESIUM LEVEL 2019-10-13 04:30:00 Danita Neville bre Linda PHOSPHORUS LEVEL 2019-10-13 04:30:00 Danita Neville Met hodist Linda IONIZED CALCIUM 2019-10-13 04:30:00 Danita Neville Gabriela darbymarycarmen Linda TROPONIN 2019-10-13 04:30:00 Shmuel Grijalva Nj thodist ESTIMATED GFR 2019-10-13 04:30:00 Danita Neville Gabriela darbymarycarmen Linda POC GLUCOSE 2019-10-13 02:18:00 Yuval Blanchard M ethodist CT ANGIOGRAM PE CHEST 2019-10-13 01:18:11 Shmuel Grijalva URINE CULTURE 2019-10-13 00:16:00 Shmuel Grijalva Nj thodist HCG QUALITATIVE, URINE 2019-10-13 00:16:00 Shmuel Grijalva [facility]ism SCREEN URINALYSIS SCREEN AND 2019-10-13 00:16:00 Shmuel Grijalva MICROSCOPY, WITH REFLEX TO CULTURE XR CHEST 1 VW PORTABLE 2019-10-12 23:43:11 Shmuel Grijalva [facility]ism HC COMPLETE BLD COUNT 2019-10-12 23:00:00 Shmuel Grijalva W/AUTO DIFF PROTHROMBIN TIME WITH INR 2019-10-12 23:00:00 Shmuel Grijalva PARTIAL THROMBOPLASTIN 2019-10-12 23:00:00 Shmuel Grijalva [facility]ism TIME (PTT) COMPREHENSIVE METABOLIC 2019-10-12 23:00:00 Shmuel Grijalva PANEL CREATINE KINASE, TOTAL 2019-10-12 23:00:00 Shmuel Grijalva [facility] (CPK) TROPONIN 2019-10-12 23:00:00 Shmuel Grijalva Nj thodist LIPASE LEVEL 2019-10-12 23:00:00 Shmuel Grijalva Nj thodist B NATRIURETIC PEPTIDE 2019-10-12 23:00:00 Shmuel Grijalva ESTIMATED GFR 2019-10-12 23:00:00 Shmuel Grijalva Nj thodist ECG ED PRELIMINARY 2019-10-12 22:58:15 Shmuel Grijalva [facility] INTERPRETATION ECG 12-LEAD 2019-10-12 22:54:34 Shmuel Grijalva Me thodist Plan of Care Planned Activity Planned Date Details Comments Source Future Scheduled 2020-06-27 INFLUENZA VACCINE [place] [facility] Test 00:00:00 [code = INFLUENZA VACCINE] Future Scheduled 2008 Screening for Sergio Me thodist Test 00:00:00 malignant neoplasm of cervix (procedure) [code = 153684049] Future Scheduled 1997 DIABETIC FOOT EXAM [place] [facility] Test 00:00:00 [code = DIABETIC FOOT EXAM] Future Scheduled 1997 URINE MICROALBUMIN [place] [facility] Test 00:00:00 [code = URINE MICROALBUMIN] Future Scheduled 1987 DIABETIC RETINAL EYE [facility] Test 00:00:00 EXAM [code = DIABETIC RETINAL EYE EXAM] Encounters Start End Encounter Admission Attending Care Care Encounter Source Date/Time Date/Time Type Type Clinicians Facility Department ID 2019-07-01 2019-07-01 [facility] [id number] [facility] 18:18:00 18:18:00 [facility] Medicine Medicine Outpati ent Clinics 2019-06-28 2019-06-28 [facility] [id number] 10[facility]00:00 10:00:00 [facility] Medicine l Medicine Outpati ent Clinics 2019-06-19 2019-06-19 [facility] [id number] 15:21:00 15:21:00 [facility] Medicine l Medicine Outpati ent Clinics 2019-06-11 2019-06-11 [facility] [id number] 08:10:00 08:10:00 [facility] Medicine l Medicine Outpati ent Clinics 2019-06-10 2019-06-10 [facility] [id number] 12:16:00 12:16:00 [facility] Medicine Outpati ent Clinics 2019-06-07 2019-06-07 [facility] [id number] 15:40:00 15:40:00 [facility] Medicine Outpati ent Clinics 2019-06-06 2019-06-06 [facility] [id number] 08:48:00 08:48:00 [facility] Medicine Outpati ent Clinics 2019-06-04 2019-06-04 [facility] [id number] 16:20:00 16:20:00 [facility] Medicine Outpati ent Clinics 2019-05-31 2019-05-31 [facility] [id number] 10:20:00 10:20:00 [facility] Medicine Outpati ent Clinics 2019-05-24 2019-05-24 [facility] [id number] 11:52:00 11:52:00 [facility] Medicine Outpati ent Clinics 2019-05-24 2019-05-24 [facility] [id number] 11:00:00 11:00:00 [facility] Medicine Outpati ent Clinics 2019-05-13 2019-05-13 [facility] [id number] 08:12:00 08:12:00 [facility] Medicine Outpati ent Clinics 2019-05-02 2019-05-02 [facility] [id number] 09:40:00 09:40:00 [facility] Medicine Outpati ent Clinics 2017-12-08 2017-12-08 Outpatient Roger [facility] [id number] [facility] 20:14:00 23:57:00 [facility] 2017-01-07 2017-01-[address] [facility] [id number] [facility] 20:47:00 00:43:00 [facility] Results Test Description Test Time Test Comments Results Result Comments Source Echocardiogram complete w contrast and 3D if needed 2019-11- 17 20:23:00 Test Item Value Reference Range Interpretation Comme nts Velocity Ratio (V1/V2) (test code = 0.90 m/s 4689) IVS,d (test code = 9750191547) 0.96 cm EF (test code = 7841779329) 77.26 % LVPWD,d (test code = 2529118385) 0.88 cm AoV Mean PG (test code = 8102603130) 4.86 mmHg AV LVOT peak gradient (test code = 6.26 mmHg 9822064828) MV mean gradient (test code = 1.56 mmHg 1616096642) MV valve area p 1/2 method (test code 3.25 cm2 = 5147773648) E/A ratio (test code = 4290393393) 1.44 E wave decelartion time (test code = 233.46 msec 4297595661) LVOT Diam,S (test code = 2953647344) 2.11 cm LVOT area (test code = 0335586519) 3.49 cm2 LVOT Vmax (test code = 9956445504) 1.25 m/s LVOT VTI (test code = 6453033411) 0.23 m AoV Peak PG (test code = 5519849281) 7.72 mmHg MV Peak E Colton (test code = 4232817301) 1.04 m/s MV stenosis pressure 1/2 time (test 67.70 ms code = 1372950980) MV Peak A Colton (test code = 8015099221) 0.72 m/s Ao Root Diameter (test code = 2.80 cm 4633213923) AoV Area, Vmax (test code = 3.15 cm2 1603721718) AoV Area, VTI (test code = 4171406524) 3.02 cm2 AoV Vmax (test code = 9566367012) 1.39 m/s IVS/LVPW,2D (test code = 4027368695) 1.08 Left Atrium Dimension Anterior (test 4.26 cm code = 8976607703) LV,d (test code = 4069745108) 4.68 cm LV,s (test code = 8645749140) 2.53 cm MV E A ratio (test code = 3658615562) 1.43 MR peak grad (test code = 0742200888) 3.89 mmHg Ao Root Diameter (test code = 2.80 cm 7930861973) LV SYS VOL (test code = 8605785298) 23.05 ml LV LEDESMA VOL (test code = 9148724782) 101.38 ml LV SV Teich 2D (test code = 78.34 ml 0422728528) LV Vol s Teich PSAX (test code = 23.05 ml 1293719066) MV Vmax (test code = 8685092217) 0.99 m MV VTI Tips (test code = 5075179595) 0.26 m AoV Vmn (test code = 9932271787) 1.07 LV FS Cube 2D (test code = 4632078222) 45.90 LV FS Teich 2D (test code = 45.90 5814476722) LVPW d Mmode (test code = 7836134920) 0.89 AoV VTI (test code = 4285844722) 0.26 m LA Area d A4C (test code = 7118116055) 16.85 cm2 LV EF,2D (test code = 7638729148) 84.16 % MV AE ratio (test code = 0287085956) 0.70 LVOT Vmn (test code = 3824694245) 0.82 Aov area Vmn (test code = 1871567771) 2.68 cm2 LA Vol d MOD A4C (test code = 39.58 ml 9113012017) LVOT mean grad (test code = 3.17 mmHg 2414423573) MAX Pred HR (test code = 4808333010) 187.25 85 of MPHR (test code = 0894151946) 159.17 Calc MPHR (test code = 8582235720) 187.25 bpm LV SV Cube 2D (test code = 3391774983) 86.31 ml LV vol d cube 2D (test code = 102.55 ml 4834856625) LV vol s cube 2D (test code = 16.24 ml 0807345249) MV Decel slope (test code = 4.44 m/s2 6550495365) Pred Exer Dur R1 (test code = 10.85 2661134622) Pred METS R1 (test code = 6767640005) 10.44 IRASEMA (test code = IRASEMA) Normal left ventricular size and function with an EF~ 55% to 60%.Normal right ventricular size and function.Structurally normal cardiac valves.Left atrial enlargement. Normal pericardium with no effusion.Grade 1 diastolic dysfunction. [facility]G 12 [id number] 19:31:06 Test Item Value Reference Range Interpretation Comments Ventricular rate (test 75 code = 253) Atrial rate (test code 75 = 255) DC interval (test code 176 = 266) QRSD interval (test 84 code = 260) QT interval (test code 406 = 264) QTC interval (test code 453 = 265) P axis 1 (test code = 26 267) QRS axis 1 (test code = 12 268) T wave axis (test code 28 = 270) EKG impression (test Normal sinus code = 273) rhythm-Possible Anterior infarct (cited on or before 13-OCT-2019)-Abnormal ECG-In automated comparison with ECG of 13-OCT-2019 04:48,-No significant change was found- [place] [facility] [id number] 11:54:47 Test Item Value Reference Range Interpretation Comments POC glucose (test code 139 mg/dL 65-99 H RN No tifiedMeter ID: = [id number]) [id number] tor: Gucci Simpsonem Lab Interpretation Abnormal (test code = 94825-3) [place] MethodistHemoglobin [id number] 11:06:00 Test Item Value Reference Range Interpretation Comments Hemoglobin A1C (test 6.3 % 4-5.6 H HbA1c c utoffs for code = 35623-5) diagnosing diabetes:4.0% - 5.6% = normal5.7% - 6.4% = increased risk for diabetes (prediabetes)9> =6.5% = zbcohunr7Wbno s for glycemic contro l (ADA 2016)< 7.0% Ta rget for non adults with zoraida betes. More or less stringent targe ts may be appropriate for individual ayaz ents. <7.5% Target for Children and adolescents wit h type 1 diabetes. Lab Interpretation (test Abnormal code = 69681-5) [facility] [id number] 11:01:33 Test Item Value Reference Range Interpretation Comments D-dimer (test code = <0.27 0-0.4 Units a re ug/ml Fibrinogen 51809-6) Equivalent Unit .When combined with l ow clinical probability, D- dimer results of less than 0. 5 ug/ml FEU have a good neg ative predictive valu e in excluding PE or DVT. For D-dimer results greater than 0.5 ug/ml FEU further testing is elyssa cated if PE or DVT is suspe cted clinically.Elev ated D-dimer results have be en reported in DVT, PE, and DIC cases and may indicat e the presence of a c lot. D-dimer results may be elevated due to old age, pre gnancy, inflammatory di seases, trauma, post-op erative states, sepsis, and malignancies. Sergio FerreiraThyroid stimulating [id number] 10:28:06 Test Item Value Reference Range Interpretation Comments TSH (test code = 3016-3) 2.31 0.27- 4.20 uIU/mL Sergio [id number] 07:42:04 Test Item Value Reference Range Interpretation Comments Troponin (test code = <0.006 0-0.04 [place] [facility] 57322-1) Laboratories ch anged methodology eff ective: 04/02/2019 at 10: 00 amThe new method has a 99th percentile cuto ff of 0.040 ng/mL Sergio FerreiraComprehensive metabolic [id number] 06:11:09 Test Item Value Reference Range Interpretation Comments Sodium (test code = 2951-2) 137 135- 148 mEq/L Potassium (test code = 2823-3) 3.5 3.5- 5.0 mEq/L Chloride (test code = 2075-0) 102 98- 112 mEq/L CO2 (test code = 2027-9) 22 24- 31 mEq/L L Anion gap (test code = 41113-7) 13@ANIO 7- 15 mEq/L BUN (test code = 3094-0) 10 mg/dL 6-20 Creatinine (test code = 2160-0) 0.55 mg/dL 0.5-0.9 Glucose (test code = 2345-7) 114 mg/dL 65-99 H Calcium (test code = 60317-0) 8.9 mg/dL 8.3-10.2 Protein (test code = 2885-2) 6.9 g/dL 6.3-8.3 Albumin (test code = 1751-7) 3.8 g/dL 3.5-5 A/G ratio (test code = 1759-0) 1.2 0.7-3.8 Alkaline phosphatase (test code = 52 U/L 35-104 6768-6) AST (test code = 1920-8) 14 U/L 10-35 ALT (test code = 1742-6) 14 U/L 5-50 Total bilirubin (test code = 0.5 mg/dL 0.2-1.2 1974-) Lab Interpretation (test code = Abnormal 81220-2) [place] MethodistLipid [id number] 06:11:09 Test Item Value Reference Interpretation Comments Range Cholesterol (test 116 mg/dL 0-199 code = 2093-3) Triglycerides (test 65 mg/dL 0-149 code = 2571-8) HDL cholesterol 31 mg/dL 40-38834 L (test code = 2085-9) LDL cholesterol 84 mg/dL 0-99 (test code = 2089-1) Lipid panel See below Total Cholester ol (mg/dL) interpretation (test < 200 code = 98504-7) Desirable 200-239 Borderline -high >=240 Hi gh Triglyceri oj (mg/dL) <150 No rmal 150-199 Borderline-high 200-499 High >=500 Very high HDL Choles terol (mg/dL) <40 Low (male) < 50 Low (female) L DL Cholesterol (mg /dL) <100 Optimal 1 00-129 Near or above o ptimal 130-159 Borderline-high 160-189 High >=190 Very high Risk Cat ergories that modify LDL goals.Risk Catergories LDL goal (mg/dL )CHD and CHD risk equiva lent <100 (10-year risk >20%)Multiple ( 2+) risk factors < 130 (10-year risk = <20%)0-1 risk factors <160 (<10-ye ar risk) Defining levels of lipids in metabolic syndromeTriglyc erides > =150 mg/dLHDL Choles terol Men <40 mg/dL Women <50 mg/dL Non-HDL cholest neo is a second target f or therapy in personswith high triglycerides ( >=200 mg/dL) Lab Interpretation Abnormal (test code = 34223-4) [facility] MethodistMagnesium [id number] 06:11:09 Test Item Value Reference Range Interpretation Comments Magnesium (test code = 98867-9) 2.0 mg/dL 1.6-2.6 [facility] MethodistPhosphorus [id number] 06:11:09 Test Item Value Reference Range Interpretation Comments Phosphorus (test code = 2777-1) 3.9 mg/dL 2.4-4.5 [facility] MethodistEstimated [id number] 06:11:08 Test Item Value Reference Range Interpretation Comments Estimated GFR (test >=90 mL/min/1.73 m2 [facility] Units code = 5488) InterpretationG 1 >=90 Normal or highG2 60-89 Mildly jfeqoguhtE2c 45-59 Mildly to mode rately anxxsngahU5a 30-44 Moderately to severely decreasedG4 15-29 Severely decre asedG5 <15 Kidn ey failureThe eGFR was calculated stu encinas the Chronic Kidney Disease Epidemiology Co llaboration (CKD-EPI) equat ion. Interpretation is based on recommendations of the National Kidney Foundation-Kidn ey Disease Outcomes Qualit y Initiative (NKF-KDOQI) pub lished in 2014. [facility]Ionized [id number] 05:53:07 Test Item Value Reference Range Interpretation Comments pH (test code = 2753-2) 7.42 Ionized calcium (test code = 1.04 mmol/L 1.11-1.32 L ) Lab Interpretation (test code = Abnormal 17684-6) [facility] with platelet and [id number] 05:49:31 Test Item Value Reference Range Interpretation Comments WBC (test code = 10984-2) 10.6 4.5- 11.0 k/uL RBC (test code = 16837-4) 3.80 m/uL 4.2-5.5 L HGB (test code = 718-7) 12.1 g/dL 12-16 HCT (test code = 4544-3) 37.1 % 37-47 MCV (test code = 787-2) 97.6 fL 82-100 MCH (test code = 785-6) 31.8 pg 27-34 MCHC (test code = 786-4) 32.6 g/dL 31-37 RDW - SD (test code = 18780-3) 46.0 fL 37-55 MPV (test code = 74527-8) 10.1 fL 6.9-11 Platelet count (test code = 266 K/uL 150-400 05615-9) Nucleated RBC (test code = 89566-3) 0.00 /100 WBC Neutrophils (test code = 72078-4) 55.6 % 39-69 Lymphocytes (test code = 33501-0) 37.2 % 25-45 Monocytes (test code = 19555-1) 5.6 % 0-10 Eosinophils (test code = 93662-3) 1.0 % 0-5 Basophils (test code = 56573-3) 0.3 % 0-1 Immature granulocytes (test code = 0.3 % 0-1 66223-3) Lab Interpretation (test code = Abnormal 76416-2) [facility] Angiogram Pe [id number] 01:23:56Hm Interface, Radiology Results - 10/13/2019 1:26 AM CSTEXAMINATION:CT ANGIOGRAM PE CHESTCL INICAL HISTORY:34 years Female CP SOBTECHNIQUE: CT angiographic images of the chest were obtained during intravenous administration of iodinated contrast. Computerized reformatted images and 3-D MIP images were also obtained and archived (CT pulmonary embolus protocol). CT imaging was performed with i terative reconstruction techniques and/or automated exposure control to reduce radiation dose. COMPARISON:Chest radiograph performed on the same day, CT abdomen/pelvis 01/05/2018FINDINGS:CHEST:Pulmonary arteries: No evidence of acute pulmonary embolism. The main pulmonary trunk is within normal limits in caliber.Lungs and airways: No acute airspace disease or suspicious pulmonary nodules. A punctate calcified granuloma seen in the left lower lobe.Pleura: No pleural effusion or pneumothorax.Mediastinumand lymph nodes: No lymphadenopathy. Cardiovascular: The heart size is normal. No evidence of right heart strain. No pericardial effusion. The thoracic aorta is normal in caliber. No dissection.Upper abdomen: Changes of cholecystectomy are seen.Bones: No suspicious osseous lesions. Other: None.IMPRESSION:1.No acute pulmonary embolus.[facility]-[id number] MethodistUrine [id number] 01:05:37 Test Item Value Reference Range Interpretation Comments Urine culture (test SEE COMMENT Bacteriu gabby screen code = 7843069) negative. Sergio MethodistUrinalysis screen and microscopy, with reflex to culture 2019-10-13 01:05:35 Test Item Value Reference Range Interpretation Comments Specimen site (test code Clean catch = 6247970) Color, UA (test code = Yellow 5778-6) Appearance, UA (test Clear code = 5767-9) Specific gravity, UA 1.019 1.001-1.030 (test code = 5811-5) pH, UA (test code = 6.0 5.0-9.0 5803-2) Protein, UA (test code = Negative Negative 83579-7) Glucose, UA (test code = Negative Negative 41892-2) Ketones, UA (test code = Negative Negative 2514-8) Bilirubin, UA (test code Negative Negative = 5770-3) Blood, UA (test code = Small Negative A Resul ts confirmed, 5794-3) test repeated Nitrite, UA (test code = Negative Negative 5802-4) Urobilinogen, UA (test <2.0 <2.0 E.U./dL code = 01484-8) Leukocyte esterase, UA Negative Negative (test code = 5799-2) Epithelial cells, UA <1 /HPF (test code = 5787-7) Round epithelial cells, <1 0- 5 /HPF UA (test code = 83817-0) WBC, UA (test code = 3 0- 4 /HPF 5821-4) RBC, UA (test code = 2 0- 5 /HPF 65688-1) Bacteria, UA (test code None seen None seen = 34357-8) Yeast, UA (test code = None seen 94359-4) Yeast with pseudohyphae, None seen UA (test code = 42652-2) Lab Interpretation (test Abnormal code = 55573-7) Sergio FerreiraG qualitative, urine pedbja1471-12-22 00:44:42 Test Item Value Reference Range Interpretation Comments hCG qualitative, Negative Sensitivity of HCG test: urine (test code = 25 mIU/ml 6-3) Sergio FerreiraCreatine kinase, total (CPK)2019-10-12 23:58:11 Test Item Value Reference Range Interpretation Comments Creatine kinase (test code = 2157-6) 74 U/L 26-192 [place] MethodistLipase [id number] 23:58:11 Test Item Value Reference Range Interpretation Comments Lipase (test code = 3040-3) 23 U/L 13-60 [facility] MethodistXR Chest 1 Vw [id number] 23:55:53Hm Interface, Radiology Results - 10/12/2019 11:58 PM CSTEXAMINATION: XR CHEST 1 VW PORTABLECLINICAL HISTORY: chest painCOMPARISON: Chest radiograph 01/04/2018IMPRESSION:No pneumothorax, pleural effusion or focal consolidation.Normal cardiomediastinal silhouette.No acute osseous abnormality.H -[id number] MethodistB natriuretic [id number] 23:51:20 Test Item Value Reference Range Interpretation Comments BNP (test code = 58052-5) <3 0-100 [facility] MethodistPartial thromboplastin time, [id number] 23:34:18 Test Item Value Reference Range Interpretation Comments PTT (test code = 32.1 23.0- 36.0 sec PTT thera peutic range for 3173-2) unfractionated heparin is61.0-112.0 se conds which corresponds to Anti-Xa0.3-0.7 U/ml. [facility] CenteristProthrombin time with [id number] 23:33:28 Test Item Value Reference Range Interpretation Comments Prothrombin time (test 13.9 11.5- 14.5 sec code = 5902-2) INR (test code = 1.1 The Interna tional 09072-1) Normalized Rati o (INR) is a therapeutic m onitoring tool for patien ts who are stable on oral anticoagulant t herapy. An INR of 2.0-3.0 is suggested for d eep vein thrombosis/pulm onary embolism. [facility] [place] [facility] Preliminary Interpretation - Not an [id number] 22:58:15Shmuel Grijalva MD 10/13/2019 5:41 [facility] ED Preliminary Interpretation - Not an OrderPerformed by: Shmuel Grijalva MDAuthorized by: Shmuel Grijalva MD ECG reviewed by ED Physician in theabsence of a learning solutions specialist: yes Previous ECG: Previous ECG: UnavailableInterpretation: Interpretation: non-specific Rate: ECG rate: 99 ECG rate assessment: normal Rhythm: Rhythm: sinus rhythm Ectopy: Ectopy: none QRS: QRS axis: Normal QRS intervals: NormalConduction: Conduction: normal ST segments: ST segments: Non-specificT waves: T waves: non-specific and inverted Comm ents: Normal sinus rhythm, no evidence of acute ischemic changesSullivan County Memorial Hospitalzena Hoahaoism
--- OUTSIDE RECORDS SUMMARY | 2020-04-15 10:28 | XMS REPORT ---
[...] Status Dosage System Date Date Dicyclomine HCl [facility] 08677349689 20 MG Orally May Active 1 tablet as Four times a 09, 19, needed for day 2018 2018 stomach pain Triamcinolone ND 15859799927 0.1 % April Active 1 appl ication Acetonide Externally 28, to affected Twice a day 2019 areas Loratadine ND 78206521986 10 MG Orally Active 1 ta blet Once a day Lisinopril ND 26775398910 5 MG Orally Active 1 tab let Once a day Farxiga ND 04251102243 5mg Orally May Active 1 tablet Once daily , 2018 Lactulose [facility] 90325570669 10 GM/15ML May Active 15-30 m l Orally Once to , twice a day as 2019 2019 needed for constipation BusPIRone HCl ND 08305024789 7.5 MG Orally April 18, Active 1 tablet as Twice a day 2018 needed for anxiety Vitamin D [facility] 61584275943 2000 UNIT Active 1 tablet Orally Once a day Atorvastatin [facility] 70977788519 10 MG Orally Active 1 tablet Calcium Once a day Orphenadrine [facility] [address]-63 100 MG Orally Active as directed Citrate ER Alogliptin [facility] 30649296019 25 MG Orally April Active 1 ta blet Benzoate Once a day for , diabetes 2019 Pioglitazone HCl [facility] 57478100595 15 MG Orally May Active 1 tablet Once a day for 05, diabetes 2019 GlipiZIDE XL [facility] 29133407779 5 MG Orally Active 1 t ablet with Once a day food Amoxicillin [facility] 52909791387 500 MG Orally Active 1 capsule Twice a day Meclizine HCl [facility] 99882570493 25 MG Orally April Active 1 tablet as Twice daily 07, needed for 2019 dizziness Results No Known Results Summary Purpose eClinicalWorks Submission
--- OUTSIDE RECORDS SUMMARY | 2020-04-15 10:28 | XMS REPORT ---
[...] End Status Dosage System Date Date Atorvastatin [facility] 98258153265 10 MG Orally Active 1 tablet Calcium Once a day Lisinopril ND 10583978941 5 MG Orally Active 1 tab let Once a day Dicyclomine HCl ND 81061062968 20 MG Orally May Active 1 tablet as Four times a 09, 19, needed for day 2018 2018 stomach pain Loratadine [facility] 95943304039 10 MG Orally Active 1 ta blet Once a day Triamcinolone [facility] 23467680609 0.1 % April Active 1 appl ication Acetonide Externally 28, to affected Twice a day 2019 areas GlipiZIDE XL [facility] 20093067877 5 MG Orally Active 1 t ablet with Once a day food Pioglitazone HCl [facility] 36372988399 15 MG Orally May Active 1 tablet Once a day for , diabetes 2019 Amoxicillin [facility] 32524218127 500 MG Orally Active 1 capsule Twice a day Orphenadrine [facility] [address]-80 100 MG Orally Active as directed Citrate ER Alogliptin [facility] 38980561862 25 MG Orally April Active 1 ta blet Benzoate Once a day for , diabetes 2019 Vitamin D [facility] 02460325395 2000 UNIT Active 1 tablet Orally Once a day BusPIRone HCl [facility] 58392497868 7.5 MG Orally April 18, Active 1 tablet as Twice a day 2019 needed for anxiety Meclizine HCl [facility] 92398638674 25 MG Orally April Active 1 tablet as Twice daily , needed for 2019 dizziness Results No Known Results Summary Purpose eClinicalWorks Submission
--- OUTSIDE RECORDS SUMMARY | 2020-04-15 10:28 | XMS REPORT ---
[...] Status Dosage System Date Date Loratadine ND 57330690585 10 MG Orally Active 1 ta blet Once a day Vitamin D ND 57285333052 2000 UNIT Active 1 tablet Orally Once a day Meclizine HCl ND 00990671703 25 MG Orally April Active 1 tablet as Twice daily 07, needed for 2019 dizziness Pioglitazone HCl ND 72825755013 15 MG Orally May Active 1 tablet Once a day for , diabetes 2019 Dicyclomine HCl ND 62969108672 20 MG Orally May Active 1 tablet as Four times a 09, 19, needed for day 2018 2019 stomach pain Atorvastatin ND 35501672795 10 MG Orally Active 1 tablet Calcium Once a day Lisinopril ND 14226331904 5 MG Orally Active 1 tab let Once a day Amoxicillin [facility] 31849500227 500 MG Orally Active 1 capsule Twice a day Alogliptin [facility] 32985659720 25 MG Orally April Active 1 ta blet Benzoate Once a day for 28, diabetes 2018 GlipiZIDE XL [facility] 05634075652 5 MG Orally Active 1 t ablet with Once a day food GlipiZIDE [facility] 67587759214 5 MG Orally May Active 1 tabl et Once a day 2018 Triamcinolone [facility] 15580731889 0.1 % April Active 1 appl ication Acetonide Externally 28, to affected Twice a day 2019 areas BusPIRone HCl [facility] 52721938606 7.5 MG Orally April 18, Active 1 tablet as Twice a day 2018 needed for anxiety Orphenadrine [facility] [address]-04 100 MG Orally Active as directed Citrate ER Results No Known Results Summary Purpose eClinicalWorks Submission
--- OUTSIDE RECORDS SUMMARY | 2020-04-15 10:30 | XMS REPORT ---
:1985 Author [facility] Providers Name Role [...] End Status Dosage System Date Date Atorvastatin [facility] 66875927983 10 MG Orally Active 1 tablet Calcium Once a day Orphenadrine [facility] [address]-65 100 MG Orally Active as directed Citrate ER Amoxicillin ND 11904748950 500 MG Orally Active 1 capsule Twice a day Meclizine HCl ND 69452384068 25 MG Orally April Active 1 tablet as Twice daily 07, needed for 2019 dizziness BusPIRone HCl ND 39645315873 7.5 MG Orally April 18, Active 1 tablet as Twice a day 2018 needed for anxiety Loratadine ND 14199026373 10 MG Orally Active 1 ta blet Once a day GlipiZIDE XL [facility] 60849367079 5 MG Orally Active 1 t ablet with Once a day food Farxiga [facility] 58607332144 5mg Orally May Active 1 tablet Once daily 2018 Pioglitazone HCl [facility] 75720285194 15 MG Orally May Active 1 tablet Once a day for 05, diabetes 2019 Alogliptin [facility] 74973197460 25 MG Orally April Active 1 ta blet Benzoate Once a day for 28, diabetes 2019 Triamcinolone [facility] 59739018789 0.1 % April Active 1 appl ication Acetonide Externally 28, to affected Twice a day 2019 areas Lisinopril [facility] 84641933488 5 MG Orally Active 1 tab let Once a day Vitamin D [facility] 07896256610 2000 UNIT Active 1 tablet Orally Once a day BELVIQ [facility] 31350697662 10 MG orally Jun 28Sep Active 1 table t Twice a day 2018 Results No Known Results Summary Purpose eClinicalWorks Submission
[2020-04-15 10:56] LABS: Urine Blood NEGATIVE (NEG); Urine Glucose NEGATIVE (NEG); Urine Protein NEGATIVE (NEG); Urine Specific Gravity 1.025 (1.005-1.030); Urine pH 5.5 (5.0-7.0)
[2020-04-15 10:57] LABS: Absolute Lymphocytes (CBC) 3.4 K/uL (0.7-4.9); Basophils % 0.8 % (0-1.3); Hematocrit 42.4 % (36.0-45.0); Lymphocytes % 34.1 % (15.3-44.8); MPV 8.9 fL (7.6-11.3); RBC Red Blood Cell Count 4.23 M/uL (3.86-4.86)
[2020-04-15 11:12] LABS: ALT/SGPT 29 U/L (12-78); AST/SGOT 11 U/L (15-37); Albumin 3.9 g/dL (3.4-5.0); Alkaline Phosphatase 67 U/L (45-117); BUN Blood Urea Nitrogen 8 mg/dL (7-18); Bicarbonate 25 mmol/L (21-32); Bilirubin Direct 0.2 mg/dL (0-0.2); Bilirubin Total 0.7 mg/dL (0.2-1.0); Glucose Level 151 mg/dL (74-106); Lipase 79 U/L (73-393); Potassium 3.5 mmol/L (3.5-5.1); Protein, Total 8.3 g/dL (6.4-8.2); Sodium Level 138 mmol/L (136-145)
--- OUTSIDE RECORDS SUMMARY | 2020-04-15 11:19 | XMS REPORT | Summary of Care ---
:1985 Author Organization [facility] Address [address] [place] [id number] Care Team Providers Name Role Phone RafykarisKlarissa Flores Insurance Hmo GABI Alvarez Primary Care Provider Reason for Visit Reason Comments Hypertension with chronic headaches Encounter Details Date Type Department Care Team Description 03/24/2020 Telemedicine Visit [facility], Essential hypertension (Primary Dx); Pediatric and Adult Clara Younger MD Frequent headaches; Primary Care- [address] Recurrent si nusitis; Di[facility] Myalgia [address] [place], [place] , [phone] [place], [place] [phone] Allergies Active Allergy Reactions Severity Noted Date Comments Ibuprofen Rash 04/19/2017 documented as of this encounter (statuses as of 03/24/2020) Medications Medication Sig Dispensed Refills Start Date End Date Status sod tccyg-gqrynr-artfja Use 1 Bottle in 1 Each 0 [...] anovulation azelastine 137 mcg (0.1 Use 1 [place] in 30 mL 5 02/21/2020 Active %) [...] monitor blood glucose for ICD code E11.9 lisinopril 5 mg Take 1 tablet 30 tablet 5 03/24/2020 Active tabletIndications: by mouth daily. Essential hypertension, Frequent headaches cefdinir 300 mg Take 1 capsule 20 capsule 0 03/24/2020 02 Active capsuleIndications: by mouth 2 0 Frequent headaches, (two) times Recurrent sinusitis daily for 10 days. documented as of this encounter (statuses as of 03/24/2020) Active Problems Problem Noted Date Chronic idiopathic constipation 02/21/2020 Epistaxis 02/21/2020 Morbid obesity with body mass index of 40.0-49.9 01/02 Indigestion 07/25/2019 Overview: Added automatically from request for linda brian [id number] Epigastric pain 07/25/2019 Overview: Added automatically from request for linda brian [id number] Type 2 diabetes mellitus with complication, without [...] as of this encounter (statuses as of 03/24/2020) Immunizations Name Administration Dates Next Due Influenza [...] filedocumented in this encounter Patient Instructions Patient InstructionsClara Quarles MD - 03/24/2020 9:30 AM CDT Patient Education Sinus Headache The sinuses are air-filled spaces in the bones of the face. They connect to the inside of the nose. Sinusitis is an inflammation of the tissue lining the sinus cavities. Sinus inflammation can occur during a cold or hay fever (allergies to pollens and other particles in the air). It can cause symptomsof sinus congestion and fullness and perhaps a low-grade fever. An infection is often present when there is also facial pain or headache and green or yellow drainage from the nose or into the back of the throat (postnasal drip). Antibiotics may be prescribed to treat this condition. Sinus headache may cause pain in different places, depending on which sinuses are infected. There may be pain in the temples, forehead, top of the head, behind or around the eye, across the cheekbone, or into the upper teeth. You may find that changing your position will bring some relief. Try sitting upright or lying down. Home care These guidelines will help you care for yourself at home: Drink plenty of water, hot tea, and other liquids to stay well hydrated. This thins the mucus andhelps your sinuses drain. Apply heat to the painful areas of the face. Use a towel soaked in hot water. Or automotive quality engineer the shower with the hot spray on your face. This is a good way to breathe in warm water vapor and get heat on your face at the same time. Cover your mouth and nose with your hands so you can still breathe as you do this. Use a cool mist vaporizer at night. Suck on peppermint, menthol, or eucalyptus hard candies during the day. An brof-jtj-dqezqbz expectorant containing guaifenesin helps thin the mucus. It also helps your sinuses drain. You may use qlax-xsc-ujtquxc decongestants unless a similar medicine was prescribed. Nasal spraysor drops work the fastest. Use one that contains phenylephrine or oxymetazoline. First blow your nose gently to remove mucus. Then apply the spray or drops. Don't use decongestant nasal sprays or dropsmore often than the label says or for more than 3 days. This can make symptoms worse. Nasal sprays or drops prescribed by your healthcare provider typically don't have these limits. Check with your provider or pharmacist. You may also use tablets that have pseudoephedrine. Side effects from oral decongestants tend to be worse than with nasal sprays or drops, and may keep you from using them. Many sinus remedies combine ingredients, which may increase side effects. Also, if you are taking a combination medicine with another medicine, be sure you are not taking a double dose of anything by mistake. Read the labels or ask the pharmacist for help. Talk with your provider before using decongestants if you have high blood pressure, heart disease, glaucoma, or prostate trouble. Antihistamines may help if allergies are causing your sinusitis. You can get chlorpheniramine anddiphenhydramine over the counter, but these can make you drowsy. Don't use these if you have glaucoma or if you are a man with trouble urinating due to an enlarged prostate. Uwqo-gsd-gkywuod antihistamines containing loratadine and cetirizine cause less drowsiness. They may be a better choice for daytime use. When allergies cause your sinusitis, a saline nasal rinse may give relief. A saline nasal rinse reduces swelling and clears excess mucus. This lets the sinuses drain. Packaged kits are sold at most pharmacies. These contain premixed salt packets and an irrigation device. If antibiotics have been prescribed to treat an acute sinus infection, talk with your provider before using a nasal rinse. This is to be sure it is safe for you. You may use emib-nfo-upwhldi medicine to control pain and fever, unless another pain medicine wasprescribed. Talk with your provider before using acetaminophen or ibuprofen if you have chronic liver or kidney disease. Also talk with your provider if you have ever had a stomach ulcer. Aspirin should never be used by anyone younger than 19 unless directed by a provider. It may cause a life-threatening condition called Makayla syndrome. If antibiotics were given, finish all of them, even if you are feeling better after a few days. Follow-up care Follow up with your healthcare provider, or as advised, if your symptoms aren't better in 1 week. Call 911 Call 911 if any of these occur: Abnormal drowsiness or confusion Swelling of the forehead or eyelids Vision problems including blurred or double vision Seizure Feeling of doom Trouble breathing Feeling dizzy Loss of consciousness or fainting When to get medical advice Call your healthcare provider right away if any of these occur: Facial pain or headache becomes worse Stiff neck Fever of 100.4F (38C) or higher, or as directed by your healthcare provider Bleeding from the nose or throat [employer] last reviewed this educational content on 07/28/201919995170-8422 [employer]. [address] [place] [address]. All rights reserved. This information is not intended as a substitute for professional medical care. Always follow your healthcare professional's instructions. documented in this encounter Progress Notes Clara Quarles MD - 03/24/2020 9:30 AM CDT TELEHEALTH NOTE Verbal consent obtained from Patient: Mckenna Haney due to the COVID-19 pandemic for telehealth services provided below. Communication with patient was conducted via Telephone due to patient unable to obtain video call option. Location of Patient: Home Location of Provider: Office Date of Service: 03/24/2020 CC: Chief Complaint Patient presents with Hypertension with chronic headaches HPI Mckenna Haney is a 35 year old F who participated in a Telehealth visit today for f/u of elevated blood pressure and headaches. She had a visit to the ER on yesterday and a telehealth urgent care visit yesterday regarding the same issues. No interventions were taken including no new medications were prescribed. She feels sure in addition to her uncontrolled bp that she also has a sinus infection. Additionally she c/o chronic muscle cramps/myalgias. Hypertension Severity: Mild Duration: Says she was diagnosed with HTN years ago and she used to be on medication. Timing: Intermittent Progression: Worsening Chronicity: Recurrent Time since last dose of antihypertensive: "years ago" Notable GIS COORDINATOR blood pressures: 130s-170s/70s-90s Context: stress Context: normal sodium, not caffeine and not drug abuse Relieved by: Nothing (She reports lisinopril 5mg helped control her blood pressure in the past but this medication was discontinued by an outside provider per the patient due to she "didn't need it") Ineffective treatments: Diet and rest Associated symptoms: anxiety, dizziness, ear pain, fatigue, headaches and peripheral edema Associated symptoms: no abdominal pain, no blurred vision, no chest pain, no confusion, no epistaxis, no fever, no hematuria, no hypokalemia, no loss of consciousness, no nausea, no palpitations, no shortness of breath, no syncope, no tinnitus, not vomiting and no weakness Risk factors: diabetes and family hx of HTN Sinus Problem Pain details: Location: Maxillary and frontal Quality: Pressure Severity: Moderate Timing: Intermittent Duration: 3 weeks Progression: Worsening Chronicity: Recurrent Context: allergies Relieved by: Nothing Ineffective treatments: Saline sprays, steroid sprays, warm compresses and acetaminophen Associated symptoms: congestion, ear pain, fatigue, headaches and rhinorrhea Associated symptoms: no chest pain, no chills, no cough, no fever, no hoarse voice, no mouth breathing, no nausea, no shortness of breath, no sneezing, no sore throat, no swollen glands, no tooth pain,no vomiting and no wheezing Congestion: Location: Nasal Interferes with sleep: no Interferes with eating/drinking: no Risk factors: diabetes Allergies Allergen Reactions Ibuprofen Rash Current Outpatient Medications on File Prior to Visit Medication Sig Dispense Refill blood sugar diagnostic (ACCU-CHEK GUIDE) strip Use as directed, once a day to monitor blood glucose for ICD code E11.9 100 Strip 2 busPIRone 7.5 mg tablet TAKE 1 TABLET BY MOUTH TWICE DAILY NEEDED FOR ANXIETY 180 tablet 0 lactulose 10 gram/15 mL oral solution Take 30 mL by mouth 3 (three) times daily as needed for Constipation. 1 Bottle 0 glipiZIDE 5 mg tablet Take 1 tablet by mouth daily. 90 tablet 0 azelastine 137 mcg (0.1 %) nasal spray Use 1 [place] in each nostril 2 (two) times daily. [...] for ICD code E11.9 1 Each 0 traMADol 50 mg tablet Take 1 tablet by mouth every 6 (six) hours as needed for Pain (scale 7-10). 12 tablet 0 fluticasone propionate 50 mcg/actuation nasal spray Use 2 Sprays in each nostril 2 (two) times daily. 16 g 4 sod txlad-zmesas-pintac bottle (NEILMED SINUS RINSE COMPLETE) pkdv Use [...] Jeanette Pedro MD; Location: [facility] Family History Problem Relation Age of Onset [...] file Gets together: Not on file Attends faith service: Not on file Active member of [...] denies physical and sexual abuse. Lives in [facility] with . Review of Systems Constitutional: Positive for fatigue. Negative for chills and fever. HENT: Positive for congestion, ear pain, rhinorrhea and sinus pressure. Negative for hoarse voice, nosebleeds, sneezing, sore throat and tinnitus. Eyes: Negative. Negative for blurred vision. Respiratory: Negative. Negative for cough, shortness of breath and wheezing. Cardiovascular: Positive for leg swelling. Negative for chest pain, palpitations and syncope. Gastrointestinal: Negative. Negative for abdominal pain, nausea and vomiting. Genitourinary: Negative. Negative for hematuria. Musculoskeletal: Positive for myalgias. Skin: Negative. Neurological: Positive for dizziness and headaches. Negative for loss of consciousness and weakness. Psychiatric/Behavioral: Negative for confusion. The patient is nervous/anxious. Endocrine: Endocrine negative Vital signs Level of pain 0. Physical Exam Constitutional: [...] Diagnoses and all orders for this visit: Essential hypertension Upon review of her bp readings in Epic and her record of home bp readings, the patient's blood pressure is uncontrolled. Given the blood pressure has been repeatedly > 130/80, antihypertensive pharmacotherapy is warranted. Start lisinopril 5mg daily given this worked well for her in the past per the patient The potential side effects of the medication were reviewed with the patient who voiced understanding. The low sodium DASH diet was reviewed with the patient and patient education materialswere provided in printed form. The patient was counseled to exercise regularly with a goal of 150 mins per week. The patient was instructed to self monitor her blood pressure once daily varying the times when it is checked and to bring the record of readings to each office visit. The patient shouldfollow-up sooner if the blood pressure is trending >/= 130/80. Baseline EKG is UTD. Close follow-up recommended including BMP recheck. - lisinopril 5 mg tablet; Take 1 tablet by mouth daily. - BASIC METABOLIC PANEL (NA, K, CL, CO2, GLUCOSE, BUN, CREATININE, CA); Standing Frequent headaches Likely related to uncontrolled HTN and acute on chronic sinusitis. See treatment of each issue above and below as noted. If her headaches persist, will consider neuroimaging and Neurology referral. She is already scheduled to see ENT. Recurrent sinusitis Will cover the patient with an antibiotic given the duration and severity of the patient's symptoms and the failure of symptomatic txs. Symptomatic therapy suggested: Continue nasal steroid tx, increase intake of non-caffeinated fluids, gargle PRN sore throat, use mist at bedside PRN congestion, apply facial warm packs PRN sinus pain, Mucinex max strength 1200mg tabs q12hr PRN congestion, and may use acetaminophen prn. She is already scheduled to see ENT for evaluation. - cefdinir 300 mg capsule; Take 1 capsule by mouth 2 (two) times daily for 10 days. Myalgia Fibromyalgia? Hypomag or electrolyte imbalance? Will check labs as noted. Hydration stressed. Tylenol PRN pain. - BASIC METABOLIC PANEL (NA, K, CL, CO2, GLUCOSE, BUN, CREATININE, CA); Standing - MAGNESIUM; Standing - CREATINE KINASE; Standing - SEDIMENTATION RATE; Standing Plan of care, desired health behaviors, goals, Ddx, and any prescribed medications were discussed with the patient. Education resources and self- management tools were provided in the After Visit Summary (AVS) which is accessible through [employer]. A total of 25 minutes was spent on the Telephone due to patient unable to obtain video call option. Patient/guardian/family verbalized understanding and agrees to the plan of care. Barriers to care: None. Ability to manage care: Good. Advanced care planning (living will) information was not given/offered to the patient to review for discussion at a [facility] visit. If applicable, the [facility] database was accessed to review any controlled substance prescription claims data. If the patient is taking prescribed medications, the [employer] prescription claims data in [place] was reviewed to assess patient compliance with the medication treatment plan. COVID-19 precautions given including frequent handwashing, social distancing, cleaning and disinfecting, indications for testing, etc. Follow-up: Return in about 3 weeks (around 04/14/2020). Return for routine care as scheduled or previously advised. documented in this encounter Plan of Treatment Date Type Specialty Care Team Description 04/29/2020 Office Visit Otolaryngology Jorge L Willett MD [address] [place], [place] [address] 06/04/2020 Telemedicine Visit Obstetrics & Gynecology Claritza Velez MD [address] [place] [phone] 06/18/2020 Project Reservoir Engineer Visit Endocrinology Diabetes & LamonteRegla alvarez, RD Metabolism [address] [place], [place] [id number] Name Type Priority Associated Diagnoses Order S chedule BASIC METABOLIC PANEL (NA, LAB Routine Myalgia 1 Occurrences starting K, CL, CO2, GLUCOSE, BUN, until CREATININE, CA) 09/23/2020 MAGNESIUM LAB Routine Myalgia 1 Occurrences s tarting 03/24/2020 unti l 09/23/2020 CREATINE KINASE LAB Routine Myalgia 1 Occurrence s starting 03/24/2020 unti l 09/23/2020 SEDIMENTATION RATE LAB Routine Myalgia 1 Occurre nces starting 03/24/2020 unti l 09/23/2020 Health Maintenance Due Date Last Done Comments [...] Essential hypertension - Primary Unspecified essential hypertension Frequent headaches Recurrent sinusitis Unspecified sinusitis (chronic) Myalgia Mylagia and myositis, unspecified documented in this encounter Insurance Payer Benefit Plan / Subscriber ID Effective Phone Address [employer] [facility] [id number] 2019-Prese Medic are Adv HEALTHCARE - [place]TE H[place] MEDICARE [place] [place] xxxxxxxxx 2020-Prese Medicaid HEALTHCARE COMM PLUS nt PLAN - MANAGED MEDICAID documented as of this encounter Advance Directives Name Relationship Healthcare Agent Communication Relationship Miranda Morales Sibling Primary healthcare agent Michelet Brower Significant Other First alternate [phone] healthcare agent (Mobile)
--- OUTSIDE RECORDS SUMMARY | 2020-04-15 11:19 | XMS REPORT | Summary of Care ---
:1985 Author Organization [facility] - Health Address [address] [place] [address] Care Team Providers Name Role Phone DannyMohantaylor Tanner Insurance Hmo GABI Alvarez Primary Care Provider Reason for Visit Reason Comments VAGINAL ITCHING Auth/Cert Status Reason Specialty Diagnoses / Referred By Referred To Procedures Contact Contact Emergency Medicine Adc Em ergency Dept [address] [place] [address] Fax: Encounter Details Date Type Department Care Team Description 03/25/2020 Emergency ADC-Emergency KnottHeena R, Vaginal ca ndidiasis (Primary Dx); Department EMNP Dysuria; [address] [place] [address] [address] [facility] [place] [address] [id number] [place], [place] [id number] Allergies Active Allergy Reactions Severity Noted Date Comments Ibuprofen Rash 04/19/2017 documented as of this encounter (statuses as of 03/25/2020) Medications Medication Sig Dispensed Refills Start Date End Date Status sod xqdzp-xxctms-ztjtly Use 1 Bottle in 1 Each 0 [...] anovulation azelastine 137 mcg (0.1 Use 1 [place] in 30 mL 5 02/21/2020 Active %) [...] times Recurrent sinusitis daily for 10 days. fluconazole 150 mg Take 1 now, 2 tablet 0 03/25/2020 Active tabletIndications: then if still Vaginal candidiasis having symptoms in 3-5 days may take 2nd tablet cephALEXin 500 mg Take 1 capsule 28 capsule 0 03/25/202004/01 Active capsuleIndications: by mouth 4 0 Urinary tract infection (four) times in female daily for 7 days. documented as of this encounter (statuses as of 03/25/2020) Active Problems Problem Noted Date Chronic idiopathic constipation 02/21/2020 Epistaxis 02/21/2020 Morbid obesity with body mass index of 40.0-49.9 01/02 Indigestion 07/25/2019 Overview: Added automatically from request for linda brian [id number] Epigastric pain 07/25/2019 Overview: Added automatically from request for linda brian [id number] Type 2 diabetes mellitus with complication, without [...] as of this encounter (statuses as of 03/25/2020) Immunizations Name Administration Dates Next Due Influenza [...] Sign Reading Time Taken Comments Blood Pressure 130/79 03/25/2020 7:27 PM CDT Pulse 76 03/25/2020 7:27 PM CDT Temperature 36.8 C (98.2 F) 03/25/2020 4:43 PM CDT Respiratory Rate 18 03/25/2020 7:27 PM CDT Oxygen Saturation 100% 03/25/2020 7:27 PM CDT Inhaled Oxygen Concentration - - Weight 104.3 kg (230 lb) 03/25/2020 4:43 PM CDT Height - - Body Mass Index 39.48 03/23/2020 4:53 PM CDT documented in this encounter Discharge Instructions Heena Montemayor EMNP - 03/25/2020NO LIFE-THREATENING FINDINGS ON TODAY'S EXAM. SPECIAL INSTRUCTIONS: 1. Take medicines as prescribed 2. See attached information FOLLOW-UP RECOMMENDATIONS: RECOMMEND FOLLOW-UP WITH A PRIMARY CARE PROVIDER OR SPECIALIST IN 2-5 DAYS, ESPECIALLY IF NO IMPROVEMENT IN SYMPTOMS. TO FOLLOW-UP WITHIN THE [facility], TRY THESE OPTIONS (CLINIC APPOINTMENTS AVAILABLE ON [id number] BASIS): 1. SCHEDULE AN APPOINTMENT ONLINE AT [email or web address] 2. OR CALL THE [facility] AT OR 3. OR CALL YOUR [facility] PHYSICIAN'S OFFICE DIRECTLY IF YOU ARE ALREADY AN ESTABLISHED [facility] PATIENT. OR, YOU MAY FOLLOW-UP WITH A PROVIDER OF YOUR CHOICE, SUCH : 1. A PHYSICIAN OF YOUR CHOICE 2. [facility], . LOCATIONS IN [facility] 3. [facility], [address], [place], [place]; [phone] RETURN TO ER FOR WORSENING OF SYMPTOMS. AttachmentsThe following attachments cannot be sent through Care Everywhere. Vaginal Infection: Yeast (Candidiasis) (Citizen [place])Vaginal Infection: Understanding the Vaginal Environment (Citizen [place])Yeast Infection, Vaginal (Laura Vaginal Infection) (Citizen [place])Urinary Tract Infections in Women (Citizen [place])Urinary Tract Infections (UTIs), Understanding (Citizen [place])documented in this encounter Plan of Treatment Date Type Specialty Care Team Description 03/26/2020 Switch Maker Visit Phlebotomy 2, Ad[facility] Lab 04/16/2020 Telemedicine Visit Family Medicine Clara Quarles MD [address] [place] [address] [phone] 04/29/2020 Office Visit Otolaryngology Jorge L Willett MD [address] [place] [address] [phone] 06/04/2020 Telemedicine Visit Obstetrics & Gynecology Claritza Velez MD [address] [place] [phone] 06/18/2020 Manager Research Development Visit Endocrinology Diabetes & LamonteRegla alvarez, RD Metabolism 2660 [place], [place] 437073 Health Maintenance Due Date Last Done Comments [...] Date/Time Associated Comments Diagnosis POCT TEST BHARATHI 03/25/2020 6:23 PM Dysuria R esults for this CDT procedure are i n the results section. URINALYSIS STAT 03/25/2020 6:19 PM Dysuria Results for this CDT procedure are i n the results section. CONSENT/REFUSAL FOR Routine 03/25/2020 4:34 PM DIAGNOSIS AND CDT TREATMENT documented in this encounter Results POCT TEST (03/25/2020 6:23 PM CDT) Pathologist Sig nature POCT PREG Negative On board controls acceptable Yes with C Line POCT PREG LOT # [id number] POCT PREG TEST DATE 2021-06-26 Specimen Urine - URINE, CLEAN CATCH URINALYSIS (03/25/2020 6:19 PM CDT) Pathologist Sig nature APPEARANCE Clear Clear [facility] COLOR Straw (A) Yellow [facility] PH 6.0 4.8 - 8.0 [facility] SP GRAVITY 1.004 1.003 - 1.030 [facility] GLU U QUAL Normal Normal [facility] BLOOD Negative Negative [facility] KETONES Negative Negative [facility] PROTEIN Negative Negative [facility] UROBILIN Normal Normal [facility] BILIRUBIN Negative Negative [facility] NITRITE Negative Negative [facility] LEUK TARA 25/uL (A) Negative [facility] RBC/HPF <1 0 - 3 HPF [facility] WBC/HPF 8 (H) 0 - 5 HPF [facility] BACTERIA Few (A) Negative [facility] SQ EPITH <1 HPF [facility] Specimen Urine - URINE, CLEAN CATCH Performing Organization Address City/State/Zipcode Phone Number [facility] CLIA: [id number], [address] [place], [place] [address] documented in this encounter Visit Diagnoses Diagnosis Vaginal candidiasis - Primary Candidiasis of vulva and vagina Dysuria Urinary tract infection in female documented in this encounter Insurance Payer Benefit Plan / Subscriber ID Effective Phone Address T ype Group Dates [facility] [id number] 2019-Prese Medic are Adv HEALTHCARE - HEALTHCARE DUAL nt H MO MANAGED COMPLETE HMO MEDICARE [employer] [place] xxxxxxxxx 2020-Prese Medicaid HEALTHCARE COMM PLUS nt PLAN - MANAGED MEDICAID documented as of this encounter Advance Directives Name Relationship Healthcare Agent Communication Relationship Miranda Morales Sibling Primary healthcare agent Michelet Brower Significant Other First alternate [phone] healthcare agent (Mobile)
--- OUTSIDE RECORDS SUMMARY | 2020-04-15 11:19 | XMS REPORT | Summary of Care ---
:1985 Author Organization [address] [address] Care Team Providers Name Role Phone Klarissa Delgado Flores Insurance Hmo GABI Alvarez Primary Care Provider Reason for Visit Reason Comments ED F/U Encounter Details Date Type Department Care Team Description 03/24/2020 Transition of Care [facility] Yair Goldstein RN ED F/U [address] [address] Allergies Active Allergy Reactions Severity Noted Date Comments Ibuprofen Rash 04/19/2017 documented as of this encounter (statuses as of 03/24/2020) Medications Medication Sig Dispensed Refills Start Date End Date Status sod mmwwi-mfnuft-ttuuqr Use 1 Bottle in 1 Each 0 [...] anovulation azelastine 137 mcg (0.1 Use 1 [place] in 30 mL 5 02/21/2020 Active %) [...] Added automatically from request for linda brian [id number] Epigastric pain 07/25/2019 Overview: Added automatically from request for linda brian [id number] Type 2 diabetes mellitus with complication, without [...] Visit Otolaryngology Jorge L Willett MD [address] [place] [address] [phone] 06/04/2020 Telemedicine Visit Obstetrics & Gynecology Claritza Velez MD [address] [place] [phone] 06/18/2020 Dna Sequencing Associate Visit Endocrinology Diabetes & LamonteRegla, RD Metabolism 26[address] [place] [address] [phone] Health Maintenance Due Date Last Done Comments [...] Contact - ESBL 10/31/2018 4:18 PM DIRECTOR INBOUND SALES 03/24/2020 6:36 AM CDT documented as of this encounter Insurance Payer Benefit Plan / Subscriber ID Effective Phone Address T e Group [facility] [id number] 2019-Prese Medic are Adv HEALTHCARE - HEALTHCARE DUAL nt H MO MANAGED COMPLETE HMO MEDICARE [facility] [place] STAR xxxxxxxxx 2020-Prese Medicaid HEALTHCARE COMM PLUS nt PLAN - MANAGED MEDICAID documented as of this encounter Advance Directives Name Relationship Healthcare Agent Communication Relationship Miranda Morales Sibling Primary healthcare agent Michelet Brower Significant Other First alternate [phone] healthcare agent (Mobile)
--- OUTSIDE RECORDS SUMMARY | 2020-04-15 11:19 | XMS REPORT | Summary of Care ---
:1985 Author Organization [facility] - Health Address [address] [place] [address] Care Team Providers Name Role Phone RafykarisKlarissa Flores Insurance Hmo GABI Alvarez Primary Care Provider Reason for Visit Reason Comments LAB Encounter Details Date Type Department Care Team Description 03/26/2020 Ase Master Mechanic Visit [facility] Health Professional Clara Sutton MD [address] [place] [address] [place] [phone] Myalgia Office Building 2, [facility] Phlebotomy Lab Professional Office Building [address] [facility] , [address] [place] [phone] Allergies Active Allergy Reactions Severity Noted Date Comments Ibuprofen Rash 04/19/2017 documented as of this encounter (statuses as of 03/26/2020) Medications Medication Sig Dispensed Refills Start Date End Date Status sod buema-oaeynr-xjpqzj Use 1 Bottle in 1 Each 0 [...] anovulation azelastine 137 mcg (0.1 Use 1 [place] in 30 mL 5 02/21/2020 Active %) [...] mg Take 1 capsule 20 capsule 0 03/24/2020/06/28 02 Active capsuleIndications: by mouth 2 0 [...] as of this encounter (statuses as of 03/26/2020) Active Problems Problem Noted Date Chronic idiopathic constipation 02/21/2020 Epistaxis 02/21/2020 Morbid obesity with body mass index of 40.0-49.9 01/02 Indigestion 07/25/2019 Overview: Added automatically from request for linda brian [id number] Epigastric pain 07/25/2019 Overview: Added automatically from request for linda brian [id number] Type 2 diabetes mellitus with complication, without [...] as of this encounter (statuses as of 03/26/2020) Immunizations Name Administration Dates Next Due Influenza [...] been in contact with No / Unsure 03/26/2020 9:09 AM CDT someone who was confirmed or suspected to have Coronavirus / COVID-19? documented as of this encounter Last Filed Vital Signs Not on filedocumented in this encounter Plan of Treatment Date Type Specialty Care Team Description 04/16/2020 Telemedicine Visit Family Medicine Clara Quarles MD [address] [place] [phone] 04/29/2020 Office Visit Otolaryngology Jorge L Willett MD [address] [facility] [place] [address] [phone] 06/04/2020 Telemedicine Visit Obstetrics & Gynecology Claritza Velez MD [address] [place] [address] [phone] 06/18/2020 Melter Helper Visit Endocrinology Diabetes & LamonteRegla alvarez, RD Metabolism 26[address] [place] [address] [phone] Health Maintenance Due Date Last Done Comments [...] filedocumented in this encounter Visit Diagnoses Diagnosis Myalgia Mylagia and myositis, unspecified documented in this encounter Insurance Payer Benefit Plan / Subscriber ID Effective Phone Address T ype Group [facility] [id number] 2019-Prese Medic are Adv HEALTHCARE - HEALTHCARE DUAL nt H MO MANAGED COMPLETE O MEDICARE [employer] [place] xxxxxxxxx 2020-Prese Medicaid HEALTHCARE COMM PLUS nt PLAN - MANAGED MEDICAID documented as of this encounter Advance Directives Name Relationship Healthcare Agent Communication Relationship Miranda Morales Sibling Primary healthcare agent Michelet Brower Significant Other First alternate [phone] healthcare agent (Mobile)
--- OUTSIDE RECORDS SUMMARY | 2020-04-15 11:20 | XMS REPORT | Summary of Care ---
:1985 Author Organization [facility] - Health Address [address] [place] [address] Care Team Providers Name Role Phone Klarissa Delgado Flores Insurance Hmo GABI Alvarez Primary Care Provider Encounter Details Date Type Department Care Team Description 03/26/2020 Orders Only [facility] Doctor Unassigned, No [address] [facility] [place] [address] [address] [place] [address] Allergies Active Allergy Reactions Severity Noted Date Comments Ibuprofen Rash 04/19/2017 documented as of this encounter (statuses as of 03/27/2020) Medications Medication Sig Dispensed Refills Start Date End Date Status sod fshhw-gymdls-dgnqvy Use 1 Bottle in 1 Each 0 [...] anovulation azelastine 137 mcg (0.1 Use 1 [place] in 30 mL 5 02/21/2020 Active %) [...] as of this encounter (statuses as of 03/27/2020) Active Problems Problem Noted Date Chronic idiopathic constipation 02/21/2020 Epistaxis 02/21/2020 Morbid obesity with body mass index of 40.0-49.9 01/02 Indigestion 07/25/2019 Overview: Added automatically from request for linda brian [id number] Epigastric pain 07/25/2019 Overview: Added automatically from request for linda brian [id number] Type 2 diabetes mellitus with complication, without [...] as of this encounter (statuses as of 03/27/2020) Immunizations Name Administration Dates Next Due Influenza [...] Telemedicine Visit Family Medicine Clara Quarles MD [address] [place] [phone] 04/29/2020 Office Visit Otolaryngology Jorge L Willett MD [address] [place], [place] [address] 06/04/2020 Telemedicine Visit Obstetrics & Gynecology Claritza Velez MD [address] [place] [address] [phone] 06/18/2020 Bulk Pigment Reducer Visit Endocrinology Diabetes & LamonteRegla alvarez, RD Metabolism 26[address] [place], [place] [phone] Health Maintenance Due Date Last Done Comments VARICELLA VACCINES (1 of 2 - 1988 2-dose childhood series) EYE EXAM 1997 DTaP,Tdap,and Td Vaccines (1 - 1998 Tdap) FOOT EXAM 2005 LDL-C 06/13/2020 06/13/2019 URINE MICROALBUMIN 06/13/2020 06/13/2019 HgA1C 07/02/2020 01/02/2020, 09/09/2019, 08/01/2019, Additional history exists CREATININE (SERUM) 03/26/2021 03/26/2020, 03/04/2020, 02/03/2020, Additional history exists PAP SMEAR 05/01/2022 05/01/2019 PNEUMOCOCCAL 0-64 YEARS COMBINED Completed 06/13/2019 SERIES INFLUENZA VACCINE Completed 09/09/2019 documented as of this encounter Procedures Procedure Name Priority Date/Time Associated Diagnosis Comme nts AGREEMENTS AUTHORIZATIONS Routine 03/26/2020 12:01 AM AND IRREVOCABLE CDT ASSIGNMENTS (FORM 2001) documented in this encounter Results Not on filedocumented in this encounter Insurance Payer Benefit Plan / Subscriber ID Effective Phone Address T ype Group [facility] [id number] 2019-Prese Medic are Adv HEALTHCARE - HEALTHCARE DUAL nt H MO MANAGED COMPLETE HMO MEDICARE [employer] [place] xxxxxxxxx 2020-Prese Medicaid HEALTHCARE COMM PLUS nt PLAN - MANAGED MEDICAID documented as of this encounter Advance Directives Name Relationship Healthcare Agent Communication Relationship Miranda Morales Sibling Primary healthcare agent Michelet Brower Significant Other First alternate [phone] healthcare agent (Mobile)
--- OUTSIDE RECORDS SUMMARY | 2020-04-15 11:20 | XMS REPORT | Summary of Care ---
:1985 Author Organization [facility] - [facility] Address [address] [place] [address] Care Team Providers Name Role Phone RafykarisKlarissa Flores Insurance Hmo GABI Alvarez Primary Care Provider Reason for Visit Reason Comments Transition Of Care Encounter Details Date Type Department Care Team Description 03/26/2020 Transition of Care [facility] Virginie Dey Transition Of Care [facility]- [address] [place] [address] [phone] Allergies Active Allergy Reactions Severity Noted Date Comments Ibuprofen Rash 04/19/2017 documented as of this encounter (statuses as of 03/26/2020) Medications Medication Sig Dispensed Refills Start Date End Date Status sod onzpm-abvias-qkquee Use 1 Bottle in 1 Each 0 [...] anovulation azelastine 137 mcg (0.1 Use 1 [place] in 30 mL 5 02/21/2020 Active %) [...] Added automatically from request for linda brian [id number] Epigastric pain 07/25/2019 Overview: Added automatically from request for linda brian [id number] Type 2 diabetes mellitus with complication, without [...] Telemedicine Visit Family Medicine Clara Quarles MD [address] [place] [phone] 04/29/2020 Office Visit Otolaryngology Jorge L Willett MD [address] [place], [place] 587[address] 06/04/2020 Telemedicine Visit Obstetrics & Gynecology Claritza Velez MD [address] [place] [address] [phone] 06/18/2020 Washtub Worker Visit Endocrinology Diabetes & LamonteRegla alvarez, RD Metabolism [address] [place], [place] 547733 Health Maintenance Due Date Last Done Comments [...] Effective Phone Address T ype Group Dates [facility] [id number] 2019-Prese Medic are Adv HEALTHCARE - HEALTHCARE DUAL nt H MO MANAGED COMPLETE HMO MEDICARE [facility] xxxxxxxxx 2020-Prese Medicaid HEALTHCARE COMM PLUS nt PLAN - MANAGED MEDICAID documented as of this encounter Advance Directives Name Relationship Healthcare Agent Communication Relationship Miranda Morales Sibling Primary healthcare agent Michelet Brower Significant Other First alternate [phone] healthcare agent (Mobile)
--- OUTSIDE RECORDS SUMMARY | 2020-04-15 11:21 | XMS REPORT | Summary of Care ---
:1985 Author Organization [facility] - [facility] Address [address] [place] [address] Care Team Providers Name Role Phone Klarissa Delgado Flores Insurance Hmo GABI Alvarez Primary Care Provider Reason for Visit Reason Comments Assessment triage call Encounter Details Date Type Department Care Team Description 04/10/2020 Telephone [facility] Family Clara Quarles A ssessment (triage Medicine - Diogenes PASTOR call ) [facility] [place] [address] Shetty, [place] [phone] Allergies Active Allergy Reactions Severity Noted Date Comments Ibuprofen Rash 04/19/2017 documented as of this encounter (statuses as of 04/10/2020) Medications Medication Sig Dispensed Refills Start Date End Date Status sod sasoz-dovkpr-ibsadq Use 1 Bottle in 1 Each 0 [...] anovulation azelastine 137 mcg (0.1 Use 1 [employer] in 30 mL 5 02/21/2020 Active %) [...] by mouth daily. Essential hypertension, Frequent headaches fluconazole 150 mg Take 1 now, 2 tablet 0 03/25/2020 Active tabletIndications: then if still Vaginal candidiasis having symptoms in 3-5 days may take 2nd tablet documented as of this encounter (statuses as of 04/10/2020) Active Problems Problem Noted Date Chronic idiopathic constipation 02/21/2020 Epistaxis 02/21/2020 Morbid obesity with body mass index of 40.0-49.9 01/02 Indigestion 07/25/2019 Overview: Added automatically from request for linda brian [id number] Epigastric pain 07/25/2019 Overview: Added automatically from request for linda brian [id number] Type 2 diabetes mellitus with complication, without [...] as of this encounter (statuses as of 04/10/2020) Immunizations Name Administration Dates Next Due Influenza [...] Treatment Date Type Specialty Care Team Description 04/10/2020 Urgent Care Family Medicine Provider, [facility] 04/16/2020 Telemedicine Visit Family Medicine Clara Quarles MD [address] [place] [address] [phone] 04/29/2020 Office Visit Otolaryngology Jorge L Willett MD [address] [place] [address] [phone] 06/04/2020 Telemedicine Visit Obstetrics & Gynecology Claritza Velez MD [address] [place] [phone] 06/18/2020 Counselling Psychologist Visit Endocrinology Diabetes & LamonteRegla alvarez, RD Metabolism [address] [place] [address] [phone] Health Maintenance Due Date Last Done Comments [...] Dates Phone Addre ss Type Group [facility] xxxxxxxxx 2020-Present Medicaid COMM PLAN - PLUS MANAGED MEDICAID documented as of this encounter Advance Directives Name Relationship Healthcare Agent Communication Relationship Miranda Morales Sibling Primary healthcare agent Michelet Brower Significant Other First alternate [phone] healthcare agent (Mobile)
--- OUTSIDE RECORDS SUMMARY | 2020-04-15 11:22 | XMS REPORT | Summary of Care ---
:1985 Author Organization [facility] - Health Address [address] [place] [address] Care Team Providers Name Role Phone Danny Klarissa L Insurance Hmo GABI Alvarez Primary Care Provider Reason for Visit Reason Comments Suprapubic Pain urinary pressure, frequency, urgency Auth/Cert Status Reason Specialty Diagnoses / Referred By Referred To Procedures Contact Contact Emergency Medicine Adc Em ergency Dept [address] [place] [address] Fax: Encounter Details Date Type Department Care Team Description 04/13/2020 Emergency ADC-Emergency Roe Cody DO [address] [place] [address]. [address] [place] [address] [phone] PID (acute pelvic inflammatory disease) (Primary Dx); Department Sweetie Mittal FNP [address] [place] [phone] UTI symptoms [address] [facility] [place] [address] Allergies Active Allergy Reactions Severity Noted Date Comments Ibuprofen Rash 04/19/2017 documented as of this encounter (statuses as of 04/13/2020) Medications Medication Sig Dispensed Refills Start Date End Date Status sod ohqwf-ughivd-[id number] Use 1 Bottle in 1 Each 0 [...] anovulation azelastine 137 mcg (0.1 Use 1 [place] in 30 mL 5 02/21/2020 Active %) [...] in 3-5 days may take 2nd tablet doxycycline hyclate 100 Take 1 capsule 28 capsule 0 04/13/2020 Active mg capsuleIndications: by mouth 2 0 PID (acute pelvic (two) times inflammatory disease) daily for 14 days. documented as of this encounter (statuses as of 04/13/2020) Active Problems Problem Noted Date Chronic idiopathic constipation 02/21/2020 Epistaxis 02/21/2020 Morbid obesity with body mass index of 40.0-49.9 01/02 Indigestion 07/25/2019 Overview: Added automatically from request for linda brian [id number] Epigastric pain 07/25/2019 Overview: Added automatically from request for linda brian [id number] Type 2 diabetes mellitus with complication, without [...] as of this encounter (statuses as of 04/13/2020) Immunizations Name Administration Dates Next Due Influenza [...] file Travel History Travel Start Travel End [place] 04/06/2020 04/11/2020 COVID-19 Exposure Response Date Recorded In the last month, have you been in contact with No / Unsure 04/13/2020 9:31 AM CDT someone who was confirmed or suspected to have Coronavirus / COVID-19? documented as of this encounter Last Filed Vital Signs Vital Sign Reading Time Taken Comments Blood Pressure 151/96 04/13/2020 9:32 AM CDT Pulse 85 04/13/2020 9:32 AM CDT Temperature 36.8 C (98.2 F) 04/13/2020 9:32 AM CDT Respiratory Rate 16 04/13/2020 9:32 AM CDT Oxygen Saturation 98% 04/13/2020 9:32 AM CDT Inhaled Oxygen Concentration - - Weight 106.6 kg (235 lb) 04/13/2020 9:32 AM CDT Height 154.9 cm (5' 1") 04/13/2020 9:32 AM CDT Body Mass Index 44.4 04/13/2020 9:32 AM CDT documented in this encounter Discharge Instructions Sweetie Sapp FNP - 04/13/2020DIAGNOSIS 1. Pelvic inflammatory disease NO LIFE-THREATENING FINDINGS ON TODAY'S EXAM. PROCEDURES IN THE ER TODAY: urinalysis MEDICATIONS ADMINISTERED IN THE ER TODAY: Rocephin YOUR PRESCRIPTIONS AND [id number] MEDICATION RECOMMENDATIONS: Doxycycline SPECIAL CARE INSTRUCTIONS: Follow up with your lung gun operator FOLLOW-UP RECOMMENDATIONS: RECOMMEND FOLLOW-UP WITH A PRIMARY CARE PROVIDER OR SPECIALIST IN 2-5 DAYS, ESPECIALLY IF NO IMPROVEMENT IN SYMPTOMS. TO FOLLOW-UP WITHIN THE [facility], TRY THESE OPTIONS (CLINIC APPOINTMENTS AVAILABLE ON [id number] BASIS): 1. SCHEDULE AN APPOINTMENT ONLINE AT [facility] 2. OR CALL THE [facility] AT OR 3. OR CALL YOUR [facility] PHYSICIAN'S OFFICE DIRECTLY IF YOU ARE ALREADY AN ESTABLISHED [facility] PATIENT. OR, YOU MAY FOLLOW-UP WITH A PROVIDER OF YOUR CHOICE, SUCH : 1. A PHYSICIAN OF YOUR CHOICE 2. [facility], . LOCATIONS IN [facility] 3. [facility], [address] [place] [place]; [phone] RETURN TO ER FOR WORSENING OF SYMPTOMS. AttachmentsThe following attachments cannot be sent through Care Everywhere. Pelvic Inflammatory Disease (PID)? What Is (Marshallese)Doxycycline tablets or capsules (Marshallese)documented in this encounter Plan of Treatment Date Type Specialty Care Team Description 04/16/2020 Telemedicine Visit Family Medicine Clara Quarles MD [address] [place] [phone] 04/29/2020 Office Visit Otolaryngology Jorge L Willett MD [address] [place] [address] [phone] 06/04/2020 Telemedicine Visit Obstetrics & Gynecology Claritza Velez MD [address] [place] [phone] 06/18/2020 Psychiatric Attendant Visit Endocrinology Diabetes & LamonteRegla alvarez, RD Metabolism [address] [place], [place] [phone] Health Maintenance Due Date Last Done Comments [...] Date/Time Associated Comments Diagnosis POCT TEST BHARATHI 04/13/2020 9:43 AM UTI symptoms R esults for this CDT procedure are i n the results section. URINALYSIS STAT 04/13/2020 9:43 AM UTI symptoms Results for this CDT procedure are i n the results section. NOTICE OF PRIVACY Routine 04/13/2020 9:28 AM PRACTICES CDT CONSENT/REFUSAL FOR Routine 04/13/2020 9:28 AM DIAGNOSIS AND CDT TREATMENT documented in this encounter Results POCT TEST (04/13/2020 9:43 AM CDT) Pathologist Sig nature POCT PREG neagtive On board controls acceptable present with C Line POCT PREG LOT # [id number] POCT PREG TEST DATE 2021-06-26 Specimen Urine - URINE, CLEAN CATCH URINALYSIS (04/13/2020 9:43 AM CDT) Pathologist Sig nature APPEARANCE Clear Clear [facility] COLOR Yellow Yellow [facility] PH 6.0 4.8 - 8.0 [facility] SP GRAVITY 1.020 1.003 - 1.030 [facility] GLU U QUAL Negative Negative [facility] BLOOD Negative Negative [facility] KETONES Negative Negative [facility] PROTEIN Negative Negative [facility] UROBILIN 0.2 mg/dL 0-1.0 mg/dL [facility] BILIRUBIN Negative Negative [facility] NITRITE Negative Negative [facility] LEUK TARA Negative Negative [facility] RBC/HPF 0 0 - 3 HPF [facility] WBC/HPF 0 0 - 5 HPF [facility] BACTERIA Negative Negative [facility] Specimen Urine - URINE, CLEAN CATCH Performing Organization Address City/State/Zipcode Phone Number [facility] CLIA: [id number], [address] [place], [place] [address] documented in this encounter Visit Diagnoses Diagnosis PID (acute pelvic inflammatory disease) - Primary Acute parametritis and pelvic cellulitis UTI symptoms documented in this encounter Administered Medications Medication Order MAR Action Action Date Dose Rate Site cefTRIAXone (ROCEPHIN) Given 04/13/2020 11:03 AM 250 mg Left 250 mg in lidocaine 1% CDT Do rsogluteal-IM (PF) (XYLOCAINE) 0.714 mL syringe Intramuscular, ONCE, 1 dose, 04/13/20 at 1200, 0.714 mL, Reason for Anti-Infective: Empiric Therapy for Suspected Infection, Empiric Therapy Site: Pelvic, Duration of therapy: 7 days documented in this encounter Insurance Payer Benefit Plan / Subscriber ID Effective Dates Phone Addre ss Type Group [facility] xxxxxxxxx 2020-Present Medicaid COMM PLAN - PLUS MANAGED MEDICAID documented as of this encounter Advance Directives Name Relationship Healthcare Agent Communication Relationship Miranda Morales Sibling Primary healthcare agent Michelet Brower Significant Other First alternate [phone] healthcare agent (Mobile)
--- OUTSIDE RECORDS SUMMARY | 2020-04-15 11:22 | XMS REPORT | Summary of Care ---
:1985 Author Organization [facility] - Health Address [address] [place] [address] Care Team Providers Name Role Phone DannyMohantaylor Tanner Insurance Hmo GABI Alvarez Primary Care Provider Reason for Visit Reason Comments Vomiting breast pain, chills Auth/Cert Status Reason Specialty Diagnoses / Referred By Referred To Procedures Contact Contact Emergency Medicine Adc Em ergency Dept [address] [place] [address] Fax: Encounter Details Date Type Department Care Team Description 04/14/2020 Emergency ADC-Emergency Roe Cody DO Fibrocystic breast changes of both breas ts (Primary Dx); Department [address] [place] [address]. Nausea [address] [facility] [address] [place] [address] [place], [place] [phone] Allergies Active Allergy Reactions Severity Noted Date Comments Ibuprofen Rash 04/19/2017 documented as of this encounter (statuses as of 04/14/2020) Medications Medication Sig Dispensed Refills Start Date End Date Status sod vrfma-ppjgiy-qghjpl Use 1 Bottle in 1 Each 0 [...] anovulation azelastine 137 mcg (0.1 Use 1 [place] in 30 mL 5 02/21/2020 Active %) [...] times inflammatory disease) daily for 14 days. ondansetron 4 mg Take 1 tablet 20 tablet 0 04/14/2020 Active disintegrating by mouth every tabletIndications: Nausea 8 (eight) hours as needed for Nausea and Vomiting (N/V). documented as of this encounter (statuses as of 04/14/2020) Active Problems Problem Noted Date Chronic idiopathic constipation 02/21/2020 Epistaxis 02/21/2020 Morbid obesity with body mass index of 40.0-49.9 01/02 Indigestion 07/25/2019 Overview: Added automatically from request for linda brian [id number] Epigastric pain 07/25/2019 Overview: Added automatically from request for linda brian [id number] Type 2 diabetes mellitus with complication, without [...] as of this encounter (statuses as of 04/14/2020) Immunizations Name Administration Dates Next Due Influenza [...] file Travel History Travel Start Travel End [place] 04/06/2020 04/11/2020 COVID-19 Exposure Response Date Recorded In the last month, have you been in contact with No / Unsure 04/14/2020 6:14 PM CDT someone who was confirmed or suspected to have Coronavirus / COVID-19? documented as of this encounter Last Filed Vital Signs Vital Sign Reading Time Taken Comments Blood Pressure 133/74 04/14/2020 6:39 PM CDT Pulse 93 04/14/2020 6:39 PM CDT Temperature 37.4 C (99.3 F) 04/14/2020 6:19 PM CDT Respiratory Rate 16 04/14/2020 6:39 PM CDT Oxygen Saturation 100% 04/14/2020 6:39 PM CDT Inhaled Oxygen Concentration - - Weight 104.3 kg (230 lb) 04/14/2020 6:19 PM CDT Height 162.6 cm (5' 4") 04/14/2020 6:19 PM CDT Body Mass Index 39.48 04/14/2020 6:19 PM CDT documented in this encounter Discharge Instructions AttachmentsThe following attachments cannot be sent through Care Everywhere. Fibrocystic Breast Changes, Presumed (Amharic)documented in this encounter Plan of Treatment Date Type Specialty Care Team Description 04/16/2020 Telemedicine Visit Family Medicine Clara Quarles MD [address] [place] [phone] 04/29/2020 Office Visit Otolaryngology Jorge L Willett MD [address] [place] [address] [phone] 06/04/2020 Telemedicine Visit Obstetrics & Gynecology Claritza Velez MD [address] [place] [phone] 06/18/2020 Electrical Engineering Drafting Officer Visit Endocrinology Diabetes & Lamonte, Regla, RD Metabolism [address] [place] [address] [phone] Health Maintenance Due Date Last Done Comments [...] Name Priority Date/Time Associated Diagnosis Comme nts CONSENT/REFUSAL FOR Routine 04/14/2020 6:08 PM CDT DIAGNOSIS AND TREATMENT documented in this encounter Results Not on filedocumented in this encounter Visit Diagnoses Diagnosis Fibrocystic breast changes of both breas ts - Primary Nausea Nausea alone documented in this encounter Insurance Payer Benefit Plan / Subscriber ID Effective Dates Phone Addre ss Type Group [facility] xxxxxxxxx 2020-Present Medicaid COMM PLAN - PLUS MANAGED MEDICAID documented as of this encounter Advance Directives Name Relationship Healthcare Agent Communication Relationship Miranda Morales Sibling Primary healthcare agent Michelet Brower Significant Other First alternate [phone] healthcare agent (Mobile)
[2020-04-15] MEDS ORDERED: METOCLOPRAMIDE 10 MG/2mL INJ ONE (11:27)
[2020-04-15] MEDS ORDERED: DICYCLOMINE HCL 10 MG CAP ONE (11:28)
--- NOTE | 2020-04-15 13:07 | RAD REPORT ---
EXAM DESCRIPTION: RAD - Abdomen 1 View (KUB) - 04/15/2020 12:49 pm CLINICAL HISTORY: Abdomen pain. FINDINGS: The bowel gas pattern is unremarkable. Cholecystectomy Sclerotic density left acetabulum unchanged from June 2018
--- NOTE | 2020-04-15 13:13 | EDPHYS ---
Physician Documentation [facility] Name: Mckenna Haney Age: 35 yrs Sex: Female : 1985 Arrival Date: 04/15/2020 Time: 10:04 Bed 19 Private MD: ED Physician David Gabriel HPI: 04/15 10:51 This 35 yrs old Female presents to ER via Ambulatory with complaints of kb Abdominal Pain. 10:51 The patient presents with abdominal pain in the upper abdomen. Onset: The kb symptoms/episode began/occurred this morning. The symptoms do not radiate. Associated signs and symptoms: none. The symptoms are described as constant. Modifying factors: The symptoms are alleviated by nothing, the symptoms are aggravated by nothing. Severity of pain: At its worst the pain was mild moderate in the emergency department the pain is unchanged. The patient has experienced similar episodes in the past, chronically. The patient has not recently seen a physician. 10:52 Pt reports upper abd pain that started this morning. Pt has this pain frequently and kb has seen a GI for it that told her it was due to gastritis. . 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 iw Historical: - Allergies: 10:30 Ibuprofen (Hives); iw - Home Meds: 10:30 buspirone 7.5 mg Oral tab 1 tab 2 times per day [Active]; cyclobenzaprine 7.5 mg Oral iw tab 1 tab 3 times per day [Active]; glyburide 5 mg Oral tab 1 tab once daily [Active]; hydroxyzine HCl 50 mg Oral tab 1 tab 4 times per day [Active]; meclizine 25 mg Oral tab 1 tab 3 times per day [Active]; medroxyprogesterone 10 mg Oral tab 1 tab once daily [Active]; - PMHx: 10:30 Diabetes - NIDDM; High Cholesterol; Hypertension; Ovarian cyst; iw - PSHx: 10:30 Cholecystectomy; iw - Immunization history:: Adult Immunizations not up to date. - Social history:: Smoking status: Patient denies any tobacco usage or history of. ROS: 10:51 Constitutional: Negative for fever, chills, and weight loss, Cardiovascular: Negative kb for chest pain, palpitations, and edema, Respiratory: Negative for shortness of breath, cough, wheezing, and pleuritic chest pain, Back: Negative for injury and pain, MS/Extremity: Negative for injury and deformity, Skin: Negative for injury, rash, and discoloration, Neuro: Negative for headache, weakness, numbness, tingling, and seizure. 10:51 Abdomen/GI: Positive for abdominal pain, Negative for nausea, vomiting, and diarrhea, constipation. Exam: 10:51 Constitutional: This is a well developed, well nourished patient who is awake, alert, kb and in no acute distress. Head/Face: Normocephalic, atraumatic. Chest/axilla: Normal chest wall appearance and motion. Nontender with no deformity. No lesions are appreciated. Cardiovascular: Regular rate and rhythm with a normal S1 and S2. No gallops, murmurs, or rubs. Normal PMI, no JVD. No pulse deficits. Respiratory: Lungs have equal breath sounds bilaterally, clear to auscultation and percussion. No rales, rhonchi or wheezes noted. No increased work of breathing, no retractions or nasal flaring. Skin: Warm, dry with normal turgor. Normal color with no rashes, no lesions, and no evidence of cellulitis. MS/ Extremity: Pulses equal, no cyanosis. Neurovascular intact. Full, normal range of motion. Neuro: Awake and alert, GCS 15, oriented to person, place, time, and situation. Cranial nerves II-XII grossly intact. Motor strength 5/5 in all extremities. Sensory grossly intact. Cerebellar exam normal. Normal gait. 10:51 Abdomen/GI: Inspection: abdomen appears normal, Bowel sounds: normal, in all quadrants, Palpation: soft, in all quadrants, mild abdominal tenderness, in the right upper quadrant and left upper quadrant. Vital Signs: 10:28 BP 128 / 71; Pulse 80; Resp 16; Temp 98.2; Pulse Ox 95% on R/A; Weight 104.33 kg; iw Height 5 ft. 4 in. (162.56 cm); Pain 9/10; 11:40 BP 108 / 64; Pulse 70; Resp 15 S; Pulse Ox 99% on R/A; ca1 12:51 BP 117 / 76; Pulse 72; Resp 15 S; Pulse Ox 100% on R/A; ca1 13:41 BP 116 / 71; Pulse 70; Resp 15 S; Pulse Ox 100% on R/A; ca1 10:28 Body Mass Index 39.48 (104.33 kg, 162.56 cm) iw MDM: 10:31 Patient medically screened. kb 10:50 Data reviewed: vital signs, nurses notes. Data interpreted: Pulse oximetry: on room air kb is 95 %. Interpretation: normal. 11:47 Counseling: I had a detailed discussion with the patient and/or guardian regarding: the kb historical points, exam findings, and any diagnostic results supporting the discharge/admit diagnosis, lab results, radiology results, the need for outpatient follow up, a family practitioner, to return to the emergency department if symptoms worsen or persist or if there are any questions or concerns that arise at home. 04/15 10:31 Order name: Basic Metabolic Panel; Complete Time: 11:12 kb 04/15 10:31 Order name: CBC with Diff; Complete Time: 10:58 kb 04/15 10:31 Order name: Hepatic Function; Complete Time: 11:12 kb 04/15 10:31 Order name: Lipase; Complete Time: 11:12 kb 04/15 10:43 Order name: Urine Dipstick--Ancillary (enter results); Complete Time: 10:55 em1 04/15 10:43 Order name: Urine --Ancillary (enter results); Complete Time: 10:55 em1 04/15 10:31 Order name: IV Saline Lock; Complete Time: 10:40 kb 04/15 10:31 Order name: Labs collected and sent; Complete Time: 10:40 kb 04/15 10:43 Order name: Urine Dipstick-Ancillary (obtain specimen); Complete Time: 10:41 em1 04/15 10:43 Order name: Urine Test (obtain specimen); Complete Time: 10:41 em1 04/15 11:19 Order name: XRAY MANASB; Complete Time: 13:12 ca1 Administered Medications: 11:21 Drug: Bentyl 20 mg Route: PO; ca1 12:20 Follow up: Response: No adverse reaction; Nausea is decreased ca1 11:22 Drug: Reglan 10 mg Route: IVP; Site: right antecubital; ca1 12:20 Follow up: Response: No adverse reaction; Pain is decreased ca1 Disposition: 15:07 Co-signature as Attending Physician, David Gabriel MD I agree with the assessment and kdr plan of care. Disposition: 04/15/20 13:12 Discharged to Home. Impression: Upper abdominal pain, unspecified. - Condition is Stable. - Discharge Instructions: Abdominal Pain, Adult, Ddhy-fr-Cuvr. - Prescriptions for Bentyl 20 mg Oral Tablet - take 1 tablet by ORAL route every 6 hours As needed; 20 tablet. Zofran 4 mg Oral Tablet - take 1 tablet by ORAL route every 12 hours As needed; 20 tablet. - Medication Reconciliation Form, Thank You Letter, Antibiotic Education, Prescription Opioid Use form. - Follow up: Emergency Department; When: As needed; Reason: Worsening of condition. Follow up: Private Physician; When: 2 - 3 days; Reason: Recheck today's complaints, Continuance of care, Re-evaluation by your physician. Signatures: Dispatcher [employer] EDMS Clair Tadeo, JOURNALISM PROFESSOR-C JOURNALISM PROFESSOR-CkDavid Minaya MD MD kdr Williams, Irene, RN RN iw Hugh Brower em1 Kiara Meehan RN RN ca1 Corrections: (The following items were deleted from the chart) 13:43 13:12 04/15/2020 13:12 Discharged to Home. Impression: Upper abdominal pain, ca1 unspecified. Condition is Stable. Discharge Instructions: Abdominal Pain, Adult, Khom-up-Fyck. Prescriptions for Bentyl 20 mg Oral Tablet - take 1 tablet by ORAL route every 6 hours As needed; 20 tablet, Zofran 4 mg Oral Tablet - take 1 tablet by ORAL route every 12 hours As needed; 20 tablet. and Forms are Medication Reconciliation Form, Thank You Letter, Antibiotic Education, Prescription Opioid Use. Follow up: Emergency Department; When: As needed; Reason: Worsening of condition. Follow up: Private Physician; When: 2 - 3 days; Reason: Recheck today's complaints, Continuance of care, Re-evaluation by your physician. kb
--- NOTE | 2020-04-15 13:13 | ER ---
Nurse's Notes [facility] Name: Mckenna Haney Age: 35 yrs Sex: Female : 1985 Arrival Date: 04/15/2020 Time: 10:04 Bed 19 Private MD: Diagnosis: Upper abdominal pain, unspecified Presentation: 04/15 10:28 Chief complaint: Patient states: mid abd pain since 0600 this morning and feels iw bloating, no vomiting or diarrhea, also has a headache. Coronavirus screen: Proceed with normal triage. Patient denies a cough. Patient denies shortness of breath or difficulty breathing. Patient denies measured and/or subjective temperature greater than 100.4F prior to today's visit. Patient denies travel on a cruise ship or to a country the [facility] currently lists as an affected area. Patient denies contact with known and/or suspected case of COVID-19. Coronavirus screen: Ebola Screen: Patient negative for fever greater than or equal to 101.5 degrees Fahrenheit, and additional compatible Ebola Virus Disease symptoms Patient denies exposure to infectious person. Patient denies travel to an Ebola-affected area in the 21 days before illness onset. No symptoms or risks identified at this time. Initial Sepsis Screen: Does the patient meet any 2 criteria? No. Patient's initial sepsis screen is negative. Does the patient have a suspected source of infection? No. Patient's initial sepsis screen is negative. Risk Assessment: Do you want to hurt yourself or someone else? Patient reports no desire to harm self or others. Onset of symptoms was April 15, 2020. 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 iw Historical: - Allergies: 10:30 Ibuprofen (Hives); iw - Home Meds: 10:30 buspirone 7.5 mg Oral tab 1 tab 2 times per day [Active]; cyclobenzaprine 7.5 mg Oral iw tab 1 tab 3 times per day [Active]; glyburide 5 mg Oral tab 1 tab once daily [Active]; hydroxyzine HCl 50 mg Oral tab 1 tab 4 times per day [Active]; meclizine 25 mg Oral tab 1 tab 3 times per day [Active]; medroxyprogesterone 10 mg Oral tab 1 tab once daily [Active]; - PMHx: 10:30 Diabetes - NIDDM; High Cholesterol; Hypertension; Ovarian cyst; iw - PSHx: 10:30 Cholecystectomy; iw - Immunization history:: Adult Immunizations not up to date. - Social history:: Smoking status: Patient denies any tobacco usage or history of. Screenin:40 Abuse screen: Denies threats or abuse. Denies injuries from another. Nutritional ca1 screening: No deficits noted. Tuberculosis screening: No symptoms or risk factors identified. Fall Risk IV access (20 points). Total Mccabe Fall Scale indicates No Risk (0-24 pts). Assessment: 10:40 General: Appears in no apparent distress. comfortable, Behavior is calm, cooperative, ca1 appropriate for age. Pain: Complains of pain in umbilical area and suprapubic area Pain radiates to right upper quadrant and left upper quadrant Pain currently is 9 out of 10 on a pain scale. Pain began 4 hours ago. Neuro: Level of Consciousness is awake, alert, obeys commands, Oriented to person, place, time, situation, Appropriate for age. Cardiovascular: Heart tones S1 S2 present Capillary refill < 3 seconds Patient's skin is warm and dry. Respiratory: Airway is patent Respiratory effort is even, unlabored, Respiratory pattern is regular, symmetrical, Breath sounds are clear bilaterally. GI: Abdomen is round non-distended, Bowel sounds present X 4 quads. Abd is soft X 4 quads Abdomen is tender to palpation in umbilical area Patient currently denies diarrhea, nausea, vomiting. : No signs and/or symptoms were reported regarding the genitourinary system. EENT: No deficits noted. No signs and/or symptoms were reported regarding the EENT system. Derm: Skin is intact, is healthy with good turgor, Skin is pink, warm \T\ dry. Musculoskeletal: Circulation, motion, and sensation intact. Capillary refill < 3 seconds. 11:40 Reassessment: Patient appears in no apparent distress at this time. Patient and/or ca1 family updated on plan of care and expected duration. Pain level reassessed. Patient is alert, oriented x 3, equal unlabored respirations, skin warm/dry/pink. 12:51 Reassessment: Patient appears in no apparent distress at this time. Patient and/or ca1 family updated on plan of care and expected duration. Pain level reassessed. Patient is alert, oriented x 3, equal unlabored respirations, skin warm/dry/pink. 13:41 Reassessment: Patient appears in no apparent distress at this time. Patient is alert, ca1 oriented x 3, equal unlabored respirations, skin warm/dry/pink. Vital Signs: 10:28 BP 128 / 71; Pulse 80; Resp 16; Temp 98.2; Pulse Ox 95% on R/A; Weight 104.33 kg; iw Height 5 ft. 4 in. (162.56 cm); Pain 9/10; 11:40 BP 108 / 64; Pulse 70; Resp 15 S; Pulse Ox 99% on R/A; ca1 12:51 BP 117 / 76; Pulse 72; Resp 15 S; Pulse Ox 100% on R/A; ca1 13:41 BP 116 / 71; Pulse 70; Resp 15 S; Pulse Ox 100% on R/A; ca1 10:28 Body Mass Index 39.48 (104.33 kg, 162.56 cm) iw ED Course: 10:04 Patient arrived in ED. ag5 10:17 Clair Tadeo FNP-C is PHCP. kb 10:17 David Gabriel MD is Attending Physician. kb 10:30 Triage completed. iw 10:31 Kiara Meehan, RN is Primary Nurse. ca1 10:40 Patient has correct armband on for positive identification. Bed in low position. Call ca1 light in reach. Side rails up X 1. Pulse ox on. NIBP on. Warm blanket given. 10:40 Arm band placed on. ca1 10:40 No provider procedures requiring assistance completed. Initial lab(s) drawn, by wa, ca1 sent to lab. Inserted saline lock: 20 gauge in right antecubital area, using aseptic technique. Blood collected. 12:50 XRAY KUB In Process Unspecified. EDMS 13:42 IV discontinued, intact, bleeding controlled, No redness/swelling at site. Pressure ca1 dressing applied. Administered Medications: 11:21 Drug: Bentyl 20 mg Route: PO; ca1 12:20 Follow up: Response: No adverse reaction; Nausea is decreased ca1 11:22 Drug: Reglan 10 mg Route: IVP; Site: right antecubital; ca1 12:20 Follow up: Response: No adverse reaction; Pain is decreased ca1 Outcome: 13:12 Discharge ordered by . kb 13:42 Discharged to home ambulatory. ca1 13:42 Condition: stable 13:42 Discharge instructions given to patient, Instructed on discharge instructions, follow up and referral plans. medication usage, Demonstrated understanding of instructions, follow-up care, medications, Prescriptions given X 2. 13:43 Patient left the ED. ca1 Signatures: Dispatcher [employer] EDMS Clair Tadeo, BLANKET MAKER-C BLANKET MAKER-Eunice Rosenberg RN RN iw Kiara Meehan RN RN ca1 Ke Lewis ag5 Corrections: (The following items were deleted from the chart) 12:59 12:55 Reassessment: Patient appears in no apparent distress at this time. Patient ca1 and/or family updated on plan of care and expected duration. Pain level reassessed. Patient is alert, oriented x 3, equal unlabored respirations, skin warm/dry/pink. ca1
[2020-04-15 13:49] VITALS: TEMP 98.2
[2020-04-15 13:52] VITALS: O2SAT 100
[2020-04-15 13:53] VITALS: BP 116/71
== END 2020-04-15 13:43 | disposition home or self-care (01) ==
LOC: ER 10:02
DX: R10.10 Upper abdominal pain, unspecified (principal); I10 Essential (primary) hypertension; E11.9 Type 2 diabetes mellitus without complications; E78.00 Pure hypercholesterolemia, unspecified; Z88.6 Allergy status to analgesic agent
CPT/HCPCS: 85025; 80048; 36415; 81025; 80076; 81003; 83690; 74018; 96374; 99284; J2765

== ENCOUNTER 2020-04-16 13:56 | Emergency (ER) | payer OTHER ==
--- OUTSIDE RECORDS SUMMARY | 2020-04-16 13:59 | XMS REPORT | Continuity of Care Document ---
:1985 Author Organization [facility] Care Team Providers Name Role Phone [facility] Unavailable Un available Problems Problem Status Onset Classification Date Comments Sourc e Date Reported Unspecified 03/16/2018 [place] otitis externa, 8 right ear Cough 03/16/[address] [place] EAR PAIN/ Active [facility] COGESTION 8 [place] BLEEDING, 3WKS Active Memor ial 7 [place] Medications Medication Details Route Status Patient Ordering Order Source Instructions Provider Date tramadol 50 mg, Inactive MH hydrochloride 50 Route: PO, 018 [place] MG Oral Tablet Drug form: TAB, ONCE, Dosing Weight 107.273, kg, Priority: STAT, Start date: 12/08/17 23:51:00 LPTA, Stop date: 12/08/17 23:51:00 LPTA 200 ACTUAT 2 puff, Active MH Albuterol 0.09 INHALER, 018 [place] MG/ACTUAT Q4H, PRN Metered Dose wheezing, Inhaler [...] MH MG/ML / RIGHT EAR, Active 018 [place] Dexamethasone 1 BID, X 7 MG/ML Otic day, # 1 Suspension btl, 0 [Ciprodex] Refill(s) Albuterol 0.833 Notes: Inactive MH MG/ML / (Same as: 018 [place] Ipratropium Duoneb) [place] 0.167 MG/ML Inhalant Solution [DuoNeb] Allergies, Adverse Reactions, Alerts Substance Category Reaction Severity Reaction Status Date Comments S ource type Reported Motrin Assertion Drug Active allergy [place] Immunizations No Data Provided for This Section Results No Data Provided for This Section Pathology Reports No Data Provided for This Section Diagnostic Reports Report Value Date Source Chest 2 views DX EXAM: XR CHEST 2 VIEW 12/08/2017 [facility] DATE: 12/08/2017 9:31 PM LPTA INDICATION: Cough. COMPARISON: 04/24/2010. TECHNIQUE: PA and lateral views of the chest wer e obtained. FINDINGS: No focal consolidation or pn eumothorax is identified. The cardiomediastinal silhouette is within normal limits. The costophrenic recesses are sharp and without effusion. No acute osseous abnormality is noted. IMPRESSION: No acute cardiopulmonary abnormality. SL: [id number] Consultation Notes No Data Provided for This Section Discharge Summaries No Data Provided for This Section History and Physicals No Data Provided for This Section Vital Signs Vital Sign Value Date Comments Source Respitory Rate 18 12/09/2017 [facility] Systolic (mm Hg) 146 12/09/2017 [facility] Diastolic (mm Hg) 95 12/09/2017 [facility] Heart Rate 109 12/09/2017 [facility] Respitory Rate 18 12/09/2017 [facility] Weight 107.273 12/09/2017 [facility] Heart Rate 100 12/09/2017 [facility] Systolic (mm Hg) 141 12/09/2017 [facility] Diastolic (mm Hg) 79 12/09/2017 [facility] d Respitory Rate 20 12/09/2017 [facility] Temperature Oral (F) 98.9 F 12/09/2017 [facility] Weight 103.636 01/08/2017 [facility] BMI Calculated 39.22 01/08/2017 [facility] Height 162.56 cm 01/08/2017 [facility] Systolic (mm Hg) 134 01/08/2017 [facility] Diastolic (mm Hg) 93 01/08/[facility] Oral (F) 98 F 01/08/2017 [facility] Heart Rate 102 01/08/2017 [facility] Respitory Rate 18 01/08/2017 [facility] Encounters Location Location Encounter Encounter Reason Attending ADM DC Stat us Source Details Type Number For Provider Date Date [facility] [id number] Antolin Zuniga 01/08 01/08 [facility]2016 [facility] Emergency [id number] [facility] 12/09 12/09 [place] [facility] /2017 [facility] Procedures No Data Provided for This Section Assessment and Plan No Data Provided for This Section Plan of Care No Data Provided for This Section Social History Social History Date Source Social History TypeResponse 12/09/2017 [facility] Smoking Status Never smoker; Concerns about tobacco use in household: No; Exposure to Tobacco Smoke None; Cigarette Smoking Last 365 Days No; Reg Smoking Cessation Counseling No entered on: 12/08/17 Family History No Data Provided for This Section Advance Directives No Data Provided for This Section Functional Status No Data Provided for This Section
--- OUTSIDE RECORDS SUMMARY | 2020-04-16 13:59 | XMS REPORT | Clinical Summary ---
:1985 Author Organization [facility] Address [address] [place] [address] Care Team Providers Name Role Phone Cm [...] Take 1 tablet 0 10/13/2019 Disco ntinued vit,[id number] by mouth daily. lic 29 mg iron- [...] Yuval Blanchard (Primary Dx) MD Helen after 04/16/2019 Immunizations Name Administration Dates Next Due FLUCELVAX [...] Comments Blood Pressure 105/62 10/13/2019 11:49 AM SENIOR PAYROLL ADMINISTRATOR Pulse 74 10/13/2019 11:49 AM SENIOR PAYROLL ADMINISTRATOR Temperature 36.8 C (98.2 F) 10/13/2019 11:49 AM SENIOR PAYROLL ADMINISTRATOR Respiratory Rate 18 10/13/2019 11:49 AM SENIOR PAYROLL ADMINISTRATOR Oxygen Saturation 98% 10/13/2019 11:49 AM SENIOR PAYROLL ADMINISTRATOR Inhaled Oxygen Concentration - - Weight 102 kg (225 lb) 10/12/2019 10:57 PM SENIOR PAYROLL ADMINISTRATOR Height 162.6 cm (5' 4") 10/12/2019 10:57 PM SENIOR PAYROLL ADMINISTRATOR Body Mass Index 38.62 10/12/2019 10:57 PM SENIOR PAYROLL ADMINISTRATOR Plan of Treatment Health Maintenance Due Date Last Done Comments DIABETIC RETINAL EYE EXAM 1987 DIABETIC FOOT EXAM 1997 URINE MICROALBUMIN 1997 CERVICAL CANCER SCREENING 2008 INFLUENZA VACCINE 06/27/2020 09/09/2019, 01/09/2018 Procedures Procedure Name Priority Date/Time Associated Comments Diagnosis POC GLUCOSE Routine 10/13/2019 11:48 Results for this AM SENIOR PAYROLL ADMINISTRATOR procedure are i n the results section. HEMOGLOBIN A1C Routine 10/13/2019 10:24 Results f or this AM SENIOR PAYROLL ADMINISTRATOR procedure are i n the results section. D-DIMER Routine 10/13/2019 10:24 Results for this AM SENIOR PAYROLL ADMINISTRATOR procedure are i n the results section. THYROID STIMULATING Routine 10/13/2019 9:54 Resu lts for this HORMONE AM SENIOR PAYROLL ADMINISTRATOR procedure are i n the results section. TTE COMPLETE, WO Routine 10/13/2019 9:15 Results for this CONTRAST, W DOPPLER AM SENIOR PAYROLL ADMINISTRATOR procedur e are in ([id number]) the results section. POC GLUCOSE Routine 10/13/2019 7:17 Results for this AM SENIOR PAYROLL ADMINISTRATOR procedure are i n the results section. TROPONIN Timed 10/13/2019 7:00 Results for this AM SENIOR PAYROLL ADMINISTRATOR procedure are i n the results section. ECG 12-LEAD Routine 10/13/2019 4:48 Results for this AM SENIOR PAYROLL ADMINISTRATOR procedure are i n the results section. ESTIMATED GFR Routine 10/13/2019 4:30 Results fo r this AM SENIOR PAYROLL ADMINISTRATOR procedure are i n the results section. TROPONIN Timed 10/13/2019 4:30 Results for this AM SENIOR PAYROLL ADMINISTRATOR procedure are i n the results section. IONIZED CALCIUM Routine 10/13/2019 4:30 Results for this AM SENIOR PAYROLL ADMINISTRATOR procedure are i n the results section. PHOSPHORUS LEVEL Routine 10/13/2019 4:30 Results for this AM SENIOR PAYROLL ADMINISTRATOR procedure are i n the results section. MAGNESIUM LEVEL Routine 10/13/2019 4:30 Results for this AM SENIOR PAYROLL ADMINISTRATOR procedure are i n the results section. COMPREHENSIVE METABOLIC Routine 10/13/2019 4:30 Results for this PANEL AM SENIOR PAYROLL ADMINISTRATOR procedure are i n the results section. HC COMPLETE BLD COUNT Routine 10/13/2019 4:30 Re sults for this W/AUTO DIFF AM SENIOR PAYROLL ADMINISTRATOR procedure are i n the results section. HEMOGLOBIN A1C Routine 10/13/2019 4:30 Results f or this AM SENIOR PAYROLL ADMINISTRATOR procedure are i n the results section. LIPID PANEL Routine 10/13/2019 4:30 Results for this AM SENIOR PAYROLL ADMINISTRATOR procedure are i n the results section. POC GLUCOSE Routine 10/13/2019 2:18 Results for this AM SENIOR PAYROLL ADMINISTRATOR procedure are i n the results section. CT ANGIOGRAM PE CHEST STAT 10/13/2019 1:18 Re sults for this AM SENIOR PAYROLL ADMINISTRATOR procedure are i n the results section. URINALYSIS SCREEN AND STAT 10/13/2019 12:16 Re sults for this MICROSCOPY, WITH REFLEX AM SENIOR PAYROLL ADMINISTRATOR proc edure are in TO CULTURE the results section. HCG QUALITATIVE, URINE Routine 10/13/2019 12:16 R esults for this SCREEN AM SENIOR PAYROLL ADMINISTRATOR procedure are i n the results section. URINE CULTURE STAT 10/13/2019 12:16 Results fo r this AM SENIOR PAYROLL ADMINISTRATOR procedure are i n the results section. XR CHEST 1 VW PORTABLE STAT 10/12/2019 11:43 R esults for this PM SENIOR PAYROLL ADMINISTRATOR procedure are i n the results section. ESTIMATED GFR Routine 10/12/2019 11:00 Results fo r this PM SENIOR PAYROLL ADMINISTRATOR procedure are i n the results section. B NATRIURETIC PEPTIDE STAT 10/12/2019 11:00 Re sults for this PM SENIOR PAYROLL ADMINISTRATOR procedure are i n the results section. LIPASE LEVEL STAT 10/12/2019 11:00 Results for this PM SENIOR PAYROLL ADMINISTRATOR procedure are i n the results section. TROPONIN STAT 10/12/2019 11:00 Results for this PM SENIOR PAYROLL ADMINISTRATOR procedure are i n the results section. CREATINE KINASE, TOTAL STAT 10/12/2019 11:00 R esults for this (CPK) PM SENIOR PAYROLL ADMINISTRATOR procedure are i n the results section. COMPREHENSIVE METABOLIC Routine 10/12/2019 11:00 Results for this PANEL PM SENIOR PAYROLL ADMINISTRATOR procedure are i n the results section. PARTIAL THROMBOPLASTIN Routine 10/12/2019 11:00 R esults for this TIME (PTT) PM SENIOR PAYROLL ADMINISTRATOR procedure are i n the results section. PROTHROMBIN TIME WITH Routine 10/12/2019 11:00 Re sults for this INR PM SENIOR PAYROLL ADMINISTRATOR procedure are i n the results section. HC COMPLETE BLD COUNT Routine 10/12/2019 11:00 Re sults for this W/AUTO DIFF PM SENIOR PAYROLL ADMINISTRATOR procedure are i n the results section. ECG ED PRELIMINARY Routine 10/12/2019 10:58 Resul ts for this INTERPRETATION PM SENIOR PAYROLL ADMINISTRATOR procedure are in the results section. ECG 12-LEAD STAT 10/12/2019 10:54 Results for this PM SENIOR PAYROLL ADMINISTRATOR procedure are i n the results section. after 04/16/2019 Results POC glucose (10/13/2019 11:48 AM SENIOR PAYROLL ADMINISTRATOR)Only the most recent of3 resultswithin the time period is included. Pathologist Sig nature POC glucose 139 (H) 65 - 99 mg/dL JUDAH NONDENOMINATIONAL Comment: [facility] RN Notified Meter ID: [id number] Resident Services Director: Gucci Murguia Specimen Performing Organization Address City/State/Zipcode Phone Number [facility] DEPARTMENT OF PATHOLOGY [address] [place] [address]. [facility] [place] [address] [place] [address] [facility] D-dimer (10/13/2019 10:24 AM SENIOR PAYROLL ADMINISTRATOR) Pathologist [facility] D-dimer <0.27 0.00 - 0.40 JUDAH ALLEN Comment: ug/mL BATH Units are ug/ml Fibrinogen Equivalent Unit. HOSPITAL [...] Organization Address City/State/Zipcode Phone Number [facility] DEPARTMENT OF PATHOLOGY [address] [place] [address]. [facility] [place] [address] [place] [address] [facility] Hemoglobin A1c (10/13/2019 10:24 AM SENIOR PAYROLL ADMINISTRATOR)Only the most recent of2 resultswithin the time period is included. Pathologist [facility] Hemoglobin A1C 6.3 (H) 4.0 - 5.6 % JUDAH ALLEN Comment: BATH HbA1c cutoffs for diagnosing diabetes: HO SPITAL [...] Organization Address City/State/Zipcode Phone Number [facility] DEPARTMENT OF PATHOLOGY [address] [place] [address]. [facility] X [address] [facility] X [address] [facility] Thyroid stimulating hormone (10/13/2019 9:54 AM SENIOR PAYROLL ADMINISTRATOR) Pathologist [facility] TSH 2.31 0.27 - 4.20 uIU/mL [facility] [place] Juany [facility] Specimen Blood Performing Organization Address City/State/Zipcode Phone Number [facility] DEPARTMENT OF PATHOLOGY [address] [facility] [place] [address] AND GENOMIC MEDICINE [facility] GINGER [facility] [address] [facility], [place] [address] [facility] Echocardiogram complete w contrast and 3D if needed (10/13/2019 9:15 AM SENIOR PAYROLL ADMINISTRATOR) Pathologist [facility] Velocity Ratio (V1/V2) 0.90 m/s SYNGO IVS,d [...] Grade 1 diastolic dysfunction. Performing Organization Address City/[facility] Phone Number [facility] [address] [place] [address], Troponin (10/13/2019 7:00 AM SENIOR PAYROLL ADMINISTRATOR)Only the most recent of3 resultswithin the time period is included. Troponin <0.006 0.000 - 0.040 SO NONDENOMINATIONAL Comment: ng/mL [facility] changed methodology eff ective: HOSPITAL 04/02/2019 at 10:00 am The new method has a 99th percentile cutoff of 0.040 n g/mL Specimen Plasma specimen Performing Organization Address City/[facility]/Zipcode Phone Number [facility] DEPARTMENT OF PATHOLOGY [address] [facility]. [place] [address] AND GENOMIC MEDICINE [facility] [address] [place] [facility] [place] [address] [facility] ECG 12 lead (10/13/2019 4:48 AM SENIOR PAYROLL ADMINISTRATOR)Only the most recent of2 resultswithin the time period is included. Pathologist Sig nature Ventricular rate 75 [facility] Atrial rate 75 [facility] AK interval 176 [facility] QRSD interval 84 [facility] QT interval 406 [facility] QTC interval 453 [facility] P axis 1 26 [facility] QRS axis 1 12 [facility] T wave axis 28 [facility] EKG impression Normal sinus rhythm-Possible Anterior infarct (cited on or before 13-OCT-2019)-Abnormal ECG-In automated comparison with ECG of 13-OCT-2019 04:48,-No significant change was found-Electronically Signed B [facility] MUSE y Tayo PASTOR, Ruben Rachel (2007) on 10/13/2019 7:31:01 PM Specimen Narrative Performed At This result has an attachment that is no t available. Performing Organization Address City/State/Zipcode Phone Number [facility] MUSE [address] [place] [address] Estimated GFR (10/13/2019 4:30 AM SENIOR PAYROLL ADMINISTRATOR)Only the most recent of2 resultswithin the time period is included. Pathologist [facility] Estimated GFR >=90 mL/min/1.73 [facility] Comment: m2 BATH Catergory Units Interpretation HOS PITAL G1 >=90 [...] Organization Address City/State/Zipcode Phone Number [facility] DEPARTMENT OF PATHOLOGY [address] [facility] [place] [address] AND GENOMIC MEDICINE [facility] [address] [facility] [place] [address] [facility] CBC with platelet and differential (10/13/2019 4:30 AM SENIOR PAYROLL ADMINISTRATOR)Only the most recent of2 resultswithin the time period is included. WBC 10.6 4.5 - 11.0 k/uL [facility] RBC 3.80 (L) 4.20 - 5.50 [facility] m/uL [facility] HGB 12.1 12.0 - 16.0 [facility] g/dL [facility] HCT 37.1 37.0 - 47.0 % [facility] MCV 97.6 82.0 - 100.0 fL [facility] MCH 31.8 27.0 - 34.0 pg [facility] MCHC 32.6 31.0 - 37.0 [facility] R[facility] - SD 46.0 37.0 - 55.0 fL [facility] MPV 10.1 6.9 - 11.0 fL [facility] Platelet count 266 150 - 400 K/uL [facility] Nucleated RBC 0.00 /100 WBC [facility] Neutrophils 55.6 39.0 - 69.0 % [facility] Lymphocytes 37.2 25.0 - 45.0 % [facility] Monocytes 5.6 0.0 - 10.0 % [facility] Eosinophils 1.0 0.0 - 5.0 % [facility] Basophils 0.3 0.0 - 1.0 % [facility] Immature granulocytes 0.3 0.0 - 1.0 % [facility] Specimen Blood Performing Organization Address City/State/Zipcode Phone Number [facility] DEPARTMENT OF PATHOLOGY [address] [place] [address] [address] [place] [address] HOSPITAL Phosphorus level (10/13/2019 4:30 AM SENIOR PAYROLL ADMINISTRATOR) Pathologist Sig nature Phosphorus 3.9 2.4 - 4.5 mg/dL [facility] Specimen Plasma specimen Performing Organization Address City/[facility]/Zipcode Phone Number [facility] DEPARTMENT OF PATHOLOGY [id number] [place] [address] AND [facility] [address] X [address] HOSPITAL Magnesium level (10/13/2019 4:30 AM SENIOR PAYROLL ADMINISTRATOR) Pathologist Sig nature Magnesium 2.0 1.6 - 2.6 mg/dL [facility] Specimen Plasma specimen Performing Organization Address [facility] Hospital[facility] Phone Number [facility] DEPARTMENT OF PATHOLOGY [address] [place] [address] AND [facility] [address] [place] [address] [facility] Ionized calcium (10/13/2019 4:30 AM SENIOR PAYROLL ADMINISTRATOR) Pathologist Sig nature pH 7.42 [facility] Ionized calcium 1.04 (L) 1.11 - 1.32 [facility] mmol/L [facility] Specimen Plasma specimen Performing Organization Address [facility] Hospital[facility] Phone Number [facility] DEPARTMENT OF PATHOLOGY [address] [place] [address] [phone] [place] [address] Lipid panel (10/13/2019 4:30 AM SENIOR PAYROLL ADMINISTRATOR) Cholesterol 116 0 - 199 [facility] mg/dL [facility] Triglycerides 65 0 - 149 [facility] mg/dL [facility] HDL cholesterol 31 (L) 40 - 99,999 [facility] mg/dL [facility] LDL cholesterol 84 0 - 99 mg/dL [facility] Lipid panel See below [facility] interpretation Comment: NONDENOMINATIONAL SUGAR Total Cholesterol (mg/dL) [facility] <200 Desirable 200-239 Borderline-high >=240 High [...] mg/dL) Specimen Plasma specimen Performing Organization Address City/[facility]/Zipcode Phone Number [facility] DEPARTMENT OF PATHOLOGY [address] [facility] [place] [address] AND [facility] [id number] [place] [phone] [place] [address] Comprehensive metabolic panel (10/13/2019 4:30 AM SENIOR PAYROLL ADMINISTRATOR)Only the most recent of2 resultswithin the time period is included. Pathologist Sig nature Sodium 137 135 - 148 mEq/L [facility] Potassium 3.5 3.5 - 5.0 mEq/L [facility] Chloride 102 98 - 112 mEq/L [facility] CO2 22 (L) 24 - 31 mEq/L [facility] Anion gap 13@ANIO 7 - 15 mEq/L [facility] BUN 10 6 - 20 mg/dL [facility] Creatinine 0.55 0.50 - 0.90 [facility] mg/dL [facility] Glucose 114 (H) 65 - 99 mg/dL [facility] Calcium 8.9 8.3 - 10.2 mg/dL [facility] Protein 6.9 6.3 - 8.3 g/dL [facility] Albumin 3.8 3.5 - 5.0 g/dL [facility] A/G ratio 1.2 0.7 - 3.8 [facility] Alkaline phosphatase 52 35 - 104 U/L [facility] AST 14 10 - 35 U/L [facility] ALT 14 5 - 50 U/L [facility] Total bilirubin 0.5 0.2 - 1.2 mg/dL [facility] Specimen Plasma specimen Performing Organization Address [facility]/Zipcode Phone Number [facility] DEPARTMENT OF PATHOLOGY [address] [facility] [place] [address] AND [facility] [address] [facility] X [phone] [place] [address] CT Angiogram Pe Chest (10/13/2019 1:18 AM SENIOR PAYROLL ADMINISTRATOR) Specimen Narrative Performed At EXAMINATION: RADIANT CT [...] Other: None. IMPRESSION: 1.No acute pulmonary embolus. [facility]-[id number] Procedure Note Interface, Radiology Results Incoming - 10/13/2019 1:26 AM SENIOR PAYROLL ADMINISTRATOR EXAMINATION: CT ANGIOGRAM PE CHEST CLINICAL HISTORY:34 [...] Other: None. IMPRESSION: 1.No acute pulmonary embolus. [facility]-[id number] Performing Organization Address City/State/Zipcode Phone Number [facility] [address] [place] [address] Urinalysis screen and microscopy, with reflex to culture (10/13/2019 12:16 AM SENIOR PAYROLL ADMINISTRATOR) Specimen site Clean catch [facility] Color, UA Yellow [facility] Appearance, UA Clear [facility] Specific gravity, 1.019 1.001 - 1.030 [facility] pH, UA 6.0 5.0 - 9.0 [facility] Protein, UA Negative Negative [facility] Glucose, UA Negative Negative [facility] Ketones, UA Negative Negative [facility] Bilirubin, UA Negative Negative [facility] Blood, UA Small Negative [facility] (A)Comment: [facility] confirmed, test repeated Nitrite, UA Negative Negative [facility] Urobilinogen, UA <2.0 <2.0 E.U./dL [facility] Leukocyte esterase, Negative Negative [facility] Epithelial cells, <1 /HPF [facility] Round epithelial <1 0 - 5 /HPF [facility] cells, [facility] WBC, UA 3 0 - 4 /HPF [facility] RBC, UA 2 0 - 5 /HPF [facility] Bacteria, UA None seen None seen [facility] Yeast, UA None seen [facility] Yeast with None seen [facility] pseudohyphae, [facility] Specimen Urine Performing Organization Address City/[facility]/Zipcode Phone Number [facility] DEPARTMENT OF PATHOLOGY [address] [place] [address] X [address] AND GENOMIC [facility] [address] [place] [phone] [place] [address] hCG qualitative, urine screen (10/13/2019 12:16 AM SENIOR PAYROLL ADMINISTRATOR) hCG qualitative, NegativeComment: [facility] urine Sensitivity of HCG BATH test: 25 mIU/ml HOSPITAL Specimen Urine Performing Organization Address City/[facility]/Zipcode Phone Number [facility] DEPARTMENT OF PATHOLOGY [address] [place] [address] X [address] AND GENOMIC MEDICINE [facility] [address] [place] [phone] [place] [address] Urine culture (10/13/2019 12:16 AM SENIOR PAYROLL ADMINISTRATOR) Pathologist Sig nature Urine culture SEE COMMENTComment: [facility] Bacteriuria screen [facility] negative. Specimen Performing Organization Address [facility] Hospital[facility] Phone Number [facility] DEPARTMENT OF PATHOLOGY [address] [place] [address] X [address] [place] [address] HOSPITAL XR Chest 1 Vw Portable (10/12/2019 11:43 PM SENIOR PAYROLL ADMINISTRATOR) Specimen Narrative Performed At EXAMINATION: XR CHEST 1 VW PORTABLE RADIANT CLINICAL HISTORY: chest pain COMPARISON: Chest radiograph 01/04/2018 IMPRESSION: No pneumothorax, pleural effusion or foc al consolidation. Normal cardiomediastinal silhouette. No acute osseous abnormality. [facility]-[id number] Procedure Note Hm Interface, Radiology Results Incoming - 10/12/2019 11:58 PM SENIOR PAYROLL ADMINISTRATOR EXAMINATION: XR CHEST 1 VW PORTABLE CLINICAL HISTORY: chest pain COMPARISON: Chest radiograph 01/04/2018 IMPRESSION: No pneumothorax, pleural effusion or foc al consolidation. Normal cardiomediastinal silhouette. No acute osseous abnormality. [facility]-[id number] Performing Organization Address [facility] Hospital[facility] Phone Number [facility] [address] [place] [address] Partial thromboplastin time, activated (10/12/2019 11:00 PM SENIOR PAYROLL ADMINISTRATOR) PTT 32.1 23.0 - 36.0 JUDAH ALLEN Comment: [facility] PTT therapeutic range for unfractionated heparin is HOSPITAL 61.0-112.0 seconds which corresponds to Anti-Xa 0.3-0.7 U/ml. Specimen Blood Performing Organization Address [facility]/Zipcode Phone Number [facility] DEPARTMENT OF PATHOLOGY [id number] [place] [address] X [address] X [address] HOSPITAL Prothrombin time with INR (10/12/2019 11:00 PM SENIOR PAYROLL ADMINISTRATOR) Prothrombin time 13.9 11.5 - 14.5 [facility] INR 1.1 JUDAH Comment: TIFFANY PATEL [facility] International Normalized Ratio (INR) is a therapeu [facility] monitoring tool for patients who are stable on oral anticoagulant therapy. An INR of 2.0-3.0 is suggested for deep vein thrombosis/pulmonary embolism. Specimen Blood Performing Organization Address [facility] Hospital[facility] Phone Number [facility] DEPARTMENT OF PATHOLOGY [address] [place] [address] X [address] [place] [address] [facility] B natriuretic peptide (10/12/2019 11:00 PM SENIOR PAYROLL ADMINISTRATOR) Pathologist Sig nature BNP <3 0 - 100 pg/mL [facility] D [facility] Specimen Blood Performing Organization Address City/[facility] Hospitalcode Phone Number [facility] DEPARTMENT OF PATHOLOGY [address] [place] [address] X [address] [place] [address] [facility] Lipase level (10/12/2019 11:00 PM SENIOR PAYROLL ADMINISTRATOR) Pathologist Sig nature Lipase 23 13 - 60 U/L [facility] Specimen Plasma specimen Performing Organization Address [facility] Phone Number [facility] DEPARTMENT OF PATHOLOGY [address] [place] [address] X [address] [place] [address] [facility] Creatine kinase, total (CPK) (10/12/2019 11:00 PM SENIOR PAYROLL ADMINISTRATOR) Pathologist Sig nature Creatine kinase 74 26 - 192 U/L [facility] Specimen Plasma specimen Performing Organization Address [facility] Phone Number [facility] DEPARTMENT OF PATHOLOGY [address] [place] [address], X [address] X [id number] [facility] ECG ED Preliminary Interpretation - Not an Order (10/12/2019 10:58 PM SENIOR PAYROLL ADMINISTRATOR) Narrative Performed At Shmuel Grijalva MD 10/13/2019 5:41 AM ECG ED Preliminary Interpretation - Not an Order Performed by: Shmuel Grijalva MD Authorized by: Shmuel Grijalva MD ECG reviewed by ED Physician in the abse nce of a senior software project manager: yes Previous ECG: Previous ECG: Unavailable Interpretation: Interpretation: non-specific Rate: ECG rate: 99 ECG rate assessment: normal Rhythm: Rhythm: sinus rhythm Ectopy: Ectopy: none QRS: QRS axis: Normal QRS intervals: Normal Conduction: Conduction: normal ST segments: ST segments: Non-specific T waves: T waves: non-specific and inverted Comments: Normal sinus rhythm, no evidence of acute ischemic changes after 04/16/2019 Additional Health Concerns Infection Noted Time Resolved Time ESBL (C ) 01/08/2018 10:22 AM SENIOR PAYROLL ADMINISTRATOR Advance Directives For more information, please contact: [phone] Type Date Recorded 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
--- OUTSIDE RECORDS SUMMARY | 2020-04-16 14:01 | XMS REPORT ---
:1985 Author Organization [facility] t Address [address] [place] [address] Care Team Providers Name Role Phone Woodrow PASTOR, Cm Primary Care Physician Pob1, Acute Care Clinic Attending Clinician Unavailable Rudi PASTOR Attending Clinician Santo PASTOR, P. Attending Clinician Suman Duran Attending Clinician Santo Zuniga Attending Clinician Payers Payer Name Policy Type Policy Number Effective Date Expiration Date S danya UHC MEDICAREUHC xxxxxxxxx 2019 [place] DUAL COMPLETE 00:00:00 Religion [id number]-PresentHMO Problems Condition Condition Condition Status Onset Resolution Last Treating Co mments Source Name Details Category Date Date Treatment Clinician Date Acute Acute Disease Active [place] cystitis cystitis 2- Method i with with 00:00: st hematuria hematuria 00 EAR PAIN/ Diagnosis Active 2018-02-26 Memoria COGESTION 1-12 11:25:00 l EAR 00:00: [place] PAIN/ 00 COGESTION Active 12/08/2017 [facility] Chavez BLEEDING, Diagnosis Active 2017-0 2017-01-08 Memoria 3WKS 2-11 05:23:00 l 00:00: Chavez BLEEDING, 00 3WKS Active 01/07/2017 [facility] Diabetes Diabetes Problem [facility] Asthma Asthma Problem Active [facility] [...] [facility] - 30-39.9) 30-39.9) [facility] Difficulty Difficulty Problem Active [facility] sleeping sleeping [facility] Anxiety Anxiety Problem [facility] Dietary Dietary Problem Active [facility] surveillan surveillan Virginie kes - ce and ce and Memoria counseling counseling l [facility] Right Right Problem Active [facility] - quadrant quadrant [facility]ori a pain pain l [facility] Ingrown Ingrown Problem Active [facility] toenail of toenail of Virginie kes - right foot right foot Me moria l [facility] Sinus Sinus Problem Active [facility] problem problem [facility] Hyperchole Hyperchole Problem Active C [facility] sterolemia sterolemia Virginie kes - [facility] Uncontroll Uncontroll Problem Active C HI [facility] ed type 2 ed type 2 Luke s - diabetes diabetes Memori a mellitus mellitus l with with [facility] hyperglyce hyperglyce en t [facility] Clinics Seasonal Seasonal Problem Active [facility] allergies allergies [facility] - [facility] Migraine Migraine Problem Active [facility] Dizziness Dizziness Problem Active [facility] Depression Depression Problem Active C [facility] screening screening [facility] Rash and Rash and Problem Active [facility] t nonspecifi nonspecifi Virginie kes - c skin c skin Memoria eruption eruption l [facility] Allergic Allergic Problem Active [facility] t rhinitis, rhinitis, Luke s - unspecifie unspecifie Me moria d d l seasonalit seasonalit Ou tpati y, y, ent unspecifie unspecifie Cl inics d trigger d trigger Frequent Frequent Problem Active [facility] headaches headaches [facility] Epigastric Epigastric Problem Active C [facility] pain pain [facility] Generalize Generalize Problem Active C [facility] d weakness d weakness Virginie kes - [facility] Shortness Shortness Problem Active [facility] of breath of breath [facility] Pain of Pain of Problem Active [facility] - abdomen abdomen [facility] l [facility] Constipati Constipati Problem Active C [facility] on, on, [facility]ukes - unspecifie unspecifie Me moria d d l constipati constipati Ou tpati on type on type ent Clinics Morbid Morbid Problem Active [facility] obesity obesity [facility] Unspecifie Problem 2018-03-16 2018-03-16 d otitis 12-08 19:35:24 19:35:24 Pear jenna externa, 06:00: d right ear Unspecifie 00 d otitis externa, right ear 12/08/2017 03/16/2018 Nando Cough Problem 2018-03-16 2018-03-16 M H 12-08 19:35:24 19:35:24 Pearla n Cough 06:00: d 00 12/08/2017 03/16/2018 [facility] Allergies, Adverse Reactions, Alerts Allergy Allergy Status Severity Reaction(s) Onset Inactive Treating Comm ents Source Name Type Date Date Clinician ibuprofe DA [facility] [place] Ibuprofe Propensi Active Rash [place] ty to 2-08 Methodi adverse 00:00: st reaction 00 s to drug ibuprofe DA Active [facility] 2[facility] [place] Motrin Motrin Active [facility] Social History Social Habit Start Date Stop Date Quantity Comments Source Sex Assigned At [facility] ethodist Alcohol intake 2019-10-12 2019-10-12 Current [facility] Me thodist 00:00:00 00:00:00 non-drinker of alcohol (finding) Smoking Status Start Date Stop Date Source Never smoker [facility] Methodis t Medications Ordered Filled Start Stop Current Ordering Indication Dosage Frequency Signature Comments Components Source Medication Medication Date Date Medication? Clinician (SIG) Name Name HYDROXYZINE 2018-11 Yes 50mg Q.[id number] Take 50 mg [facility] HCL ORAL 1-17 [id number] by mouth 3 Methodi 15:33: 3D (three) st 01 times a day as needed (for anxiety). For anxiety glyBURIDE 2018-11 Yes 5mg QD Take 5 mg Luke ston (DIABETA) 5 -17 by mouth Meth erlinda MG tablet 15:33: daily with st 01 breakfast. amoxicillin 2018-11 Yes 500mg Q.75435740 Take 500 [facility] (AMOXIL) 1-17 [id number] mg by Meth erlinda 500 MG 15:33: 3D mouth 3 st capsule 01 (three) times a day. busPIRone 2018-11 Yes 7.5mg Q.5D Take 7.5 Luke ston (BUSPAR) 1-17 mg by Methodi 7.5 MG 15:33: mouth 2 st tablet 01 (two) times a day as needed (for anxiety). 2018-11- No 1{tbl} QD Take 1 [place] vit,calc76- -17 11-17 tablet by Id thodi iron-folic 02:32: 00:[address] 29 mg iron- 24 :00 daily. 1 mg tablet per tablet cephalexin 2018-11- No 500mg Q.5D Take 500 [place] (KEFLEX) 1-17 11-17 mg by Methodi 500 MG 02:32: 00:[address] capsule 09 :00 (two) times a day. famotidine 2018-11- No 20mg QD Take 1 [place] (PEPCID) 20 1-17 12-17 tablet (20 M ethodi MG tablet 00:00: 23:59 mg total) st 00 :00 by mouth daily for 30 days. BELVIQ BELVIQ 2018- No Klarissa [address] 8-02 11-30 [facility]ender [facility] - 00:00: 00:00 Memoria 00 :00 l Outpati ent Clinics [facility] 2018- No Klarissa [address] [...] - 00:00: for Memoria 00 anxiety l Outpati ent Clinics alcohol Yes Test daily [place] swabs pads, 2-13 before all Me thodi medicated 00:00: meals/snac st 00 ks and once before bedtime. ACCU-CHEK Yes Test daily [place] COMPACT 2-13 before all Method i TEST strip 00:00: meals/snac s t 00 ks and once before bedtime. blood-gluco Yes Test daily [place] se meter, 2-13 before all Meth erlinda drum-type 00:00: meals/snac st (ACCU-CHEK 00 ks and COMPACT once PLUS CARE) before kit bedtime. lancing Yes Test daily [place] device with 2-13 before all Me thodi lancets 00:00: meals/snac st (ACCU-CHEK 00 ks and MULTICLIX once LANCET) kit before bedtime. lancets Yes Test daily [place] (ACCU-CHEK 2-13 before all Met hodi MULTICLIX 00:00: meals/snac st LANCET) 00 ks and misc once before bedtime. insulin Yes Use as [place] syringes, 01-09 directed Method i disposable, 00:00: st 1 mL 00 syringe tramadol No 50 mg, MH hydrochlori 12-09 Route: PO, Pe alanis de 50 MG 05:51: Drug form: d Oral Tablet 00 TAB, ONCE, Dosing Weight 107.273, kg, Priority: STAT, Start date: 12/08/17 23:51:00 BREWERY TECHNICIAN, Stop date: 12/08/17 23:51:00 BREWERY TECHNICIAN 200 ACTUAT Yes 2 puff, MH Albuterol 12-09 INHALER, Pearla n 0.09 05:27: Q4H, PRN d MG/ACTUAT 00 wheezing, Metered coughing, Dose or Inhaler shortness [ProAir of breath, HFA] # 1 ea, 1 Refill(s) benzonatate No 200 mg = 1 MH 200 MG Oral 12-09 cap, PO, Pear jenna Capsule 05:26: TID, PRN d [Tessalon] 00 as needed for cough, X 7 day, # 21 cap, 0 Refill(s) Ciprofloxac No 4 drp, MH in 3 MG/ML 12-09 RIGHT EAR, Pea [place]lan / 05:26: BID, X 7 d Dexamethaso 00 day, # 1 ne 1 MG/ML btl, 0 Otic Refill(s) Suspension [Ciprodex] Albuterol No Notes: MH 0.833 MG/ML 12-09 (Same as: [place] / 03:31: Duoneb) d Ipratropium 00 Maun[place] 0.167 MG/ML Inhalant Solution [DuoNeb] Atorvastati Atorvastati Yes Klarissa [address] n Calcium n Calcium [facility] Amoxicillin Amoxicillin Yes Klarissa [address] [facility] Vitamin D Vitamin D Yes Klarissa [address] [facility] Orphenadrin Orphenadrin Yes Klarissa as [facility] e Citrate e Citrate Millender directed [facility] ent Clin[facility] Lisinopril Lisinopril Yes Klarissa [address] [facility] GlipiZIDE GlipiZIDE Yes Klarissa [address] XL XL Millender with food [facility] Loratadine Loratadine Yes Klarissa [address] [facility] Immunizations Ordered Immunization Filled Immunization Date Status Commen ts Source Name Name LUCIA CURRAN 2018-01-09 [facility] 00:00:00 Religion Vital Signs Vital Name Observation Time Observation Value Comments Source Systolic blood 2019-10-13 11:49:21 105 mm[Hg] [place] [facility] pressure Diastolic blood 2019-10-13 11:49:21 62 mm[Hg] [place] Religion pressure Heart rate 2019-10-13 11:49:21 74 /min [place] Religion Body temperature 2019-10-13 11:49:21 36.78 Miladis [place] [facility] Respiratory rate 2019-10-13 11:49:21 18 /min [place] Religion Oxygen saturation in 2019-10-13 11:49:21 98 /min [place] Religion Arterial blood by Pulse oximetry Body height 2019-10-12 22:57:00 162.6 cm [place] Religion Body weight 2019-10-12 22:57:00 102.059 kg [place] Religion BMI 2019-10-12 22:57:00 38.62 kg/m2 [place] Religion Respitory Rate 2017-12-09 05:54:00 MH [place] Systolic (mm Hg) 2017-12-09 05:54:00 MH [place] Diastolic (mm Hg) 2017-12-09 05:54:00 MH [place] Heart Rate 2017-12-09 05:54:00 MH Heather and Respitory Rate 2017-12-09 03:52:00 MH [place] Weight 2017-12-09 02:25:00 MH Heather and Heart Rate 2017-12-09 02:25:00 MH [place] and Systolic (mm Hg) 2017-12-09 02:25:00 MH [place] Diastolic (mm Hg) 2017-12-09 02:25:00 MH [place] Respitory Rate 2017-12-09 02:25:00 MH [place] Temperature Oral (F) 2017-12-09 02:25:00 98.9 F MH [place] Weight 2017-01-08 03:10:00 MH Heather and BMI Calculated 2017-01-08 03:10:00 [place] Height 2017-01-08 03:10:00 162.56 cm MH Heather and Systolic (mm Hg) 2017-01-08 03:10:00 [place] Diastolic (mm Hg) 2017-01-08 03:10:00 [place] Temperature Oral (F) 2017-01-08 03:10:00 98 F [place] Heart Rate 2017-01-08 03:10:00 Heather and Respitory Rate 2017-01-08 03:10:00 [place] Procedures Procedure Date / Time Performing Clinician Source Performed POC GLUCOSE 2019-10-13 11:48:00 Yuval Blanchard ethodist D-DIMER 2019-10-13 10:24:00 Ruben Cr ethodist HEMOGLOBIN A1C 2019-10-13 10:24:00 Ruben Cr ethodist THYROID STIMULATING 2019-10-13 09:54:00 Ruben Cr on Religion HORMONE TTE COMPLETE, WO CONTRAST, 2019-10-13 09:15:00 Danita Neville Religion W DOPPLER ([id number]) Linda POC GLUCOSE 2019-10-13 07:17:00 Yuval Blanchard ethodist TROPONIN 2019-10-13 07:00:00 Shmuel Grijalva thodist ECG 12-LEAD 2019-10-13 04:48:47 Ruben Cr ethodist LIPID PANEL 2019-10-13 04:30:00 Danita Neville odmarycarmen Linda HEMOGLOBIN A1C 2019-10-13 04:30:00 Danita Neville Meth odmarycarmen Linda HC COMPLETE BLD COUNT 2019-10-13 04:30:00 Danita Neville n Religion W/AUTO DIFF Linda COMPREHENSIVE METABOLIC 2019-10-13 04:30:00 Danita Neville Religion PANEL Linda MAGNESIUM LEVEL 2019-10-13 04:30:00 Danita Neville Meth odist Linda PHOSPHORUS LEVEL 2019-10-13 04:30:00 Danita Neville Met hodist Linda IONIZED CALCIUM 2019-10-13 04:30:00 Danita Neville Linda TROPONIN 2019-10-13 04:30:00 Shmuel Grijalva Me thodist ESTIMATED GFR 2019-10-13 04:30:00 Danita Neville POC GLUCOSE 2019-10-13 02:18:[address] ANGIOGRAM PE CHEST 2019-10-13 01:18:11 Shmuel Grijalva URINE CULTURE 2019-10-13 00:16:00 Shmuel Grijalva Id thodist HCG QUALITATIVE, URINE 2019-10-13 00:16:00 Shmuel Grijalva SCREEN URINALYSIS SCREEN AND 2019-10-13 00:16:00 Shmuel Grijalva MICROSCOPY, WITH REFLEX TO CULTURE XR CHEST 1 VW PORTABLE 2019-10-12 23:43:11 Shmuel Grijalva HC COMPLETE BLD COUNT 2019-10-12 23:00:00 Shmuel Grijalva W/AUTO DIFF PROTHROMBIN TIME WITH INR 2019-10-12 23:00:00 Shmuel Grijalva PARTIAL THROMBOPLASTIN 2019-10-12 23:00:00 Shmuel Grijalva TIME (PTT) COMPREHENSIVE METABOLIC 2019-10-12 23:00:00 Shmuel Grijalva Religion PANEL CREATINE KINASE, TOTAL 2019-10-12 23:00:00 Shmuel Grijalva (CPK) TROPONIN 2019-10-12 23:00:00 Shmuel Grijalva Id thodist LIPASE LEVEL 2019-10-12 23:00:00 Shmuel Grijalva thodist B NATRIURETIC PEPTIDE 2019-10-12 23:00:00 Shmuel Grijalva ESTIMATED GFR 2019-10-12 23:00:00 Smhuel Grijalva thodist ECG ED PRELIMINARY 2019-10-12 22:58:15 Shmuel Grijalva INTERPRETATION ECG 12-LEAD 2019-10-12 22:54:34 Shmuel Grijalva Id thodist Plan of Care Planned Activity Planned Date Details Comments Source Future Scheduled 2020-06-27 INFLUENZA VACCINE [place] [facility] Test 00:00:00 [code = INFLUENZA VACCINE] Future Scheduled 2008 Screening for Sergio Id thodist Test 00:00:00 malignant neoplasm of cervix (procedure) [code = 281807884] Future Scheduled 1997 DIABETIC FOOT EXAM [place] [facility] Test 00:00:00 [code = DIABETIC FOOT EXAM] Future Scheduled 1997 URINE MICROALBUMIN [place] [facility] Test 00:00:00 [code = URINE MICROALBUMIN] Future Scheduled 1987 DIABETIC RETINAL EYE [facility] Religion Test 00:00:00 EXAM [code = DIABETIC RETINAL EYE EXAM] Encounters Start End Encounter Admission Attending Care Care Encounter Source Date/Time Date/Time Type Type Clinicians Facility Department ID 2020-04-16 2020-04-16 Urgent Pob1, Acute [facility] [id number] 11:11:33 11:31:33 [place] [id number] [place] [id number] [facility] [id number] nal [address] 2019-07-01 2019-07-01 [facility] [id number] [facility] [address] 18:18:00 18:18:00 [place] [facility] Medicine Outpat[facility] ent Clinics 2019-06-28 2019-06-28 [facility] [id number] [address] 10:00:00 10:00:00 [facility] l Medicine Outpati ent Clinics 2019-06-19 2019-06-19 [facility] [id number] 15:21:00 15:21:00 [facility] l Medicine Outpati ent Clinics 2019-06-11 2019-06-11 [facility] [id number] 08:10:00 08:10:00 [place] Medicine l Medicine Outpati ent Clinics 2019-06-10 2019-06-10 [facility] [id number] 12[facility]16:00 12:16:00 t [facility] Medicine Outpati ent Clinics 2019-06-07 2019-06-07 [facility] [id number] 15:40:00 15:40:00 t [facility] Medicine Outpati ent Clinics 2019-06-06 2019-06-06 [facility] [id number] 08:48:00 08:48:00 t [facility] Medicine Outpati ent Clinics 2019-06-04 2019-06-04 [facility] [id number] 16:20:00 16:20:00 t [facility] Medicine Outpati ent Clinics 2019-05-31 2019-05-31 [facility] [id number] 10:20:00 10:20:00 t [facility] Medicine Outpati ent Clinics 2019-05-24 2019-05-24 [facility] [id number] 11:52:00 11:52:00 t [facility] Medicine Outpati ent Clinics 2019-05-24 2019-05-24 [facility] [id number] 11:00:00 11:00:00 t [facility] Medicine Outpati ent Clinics 2019-05-13 2019-05-13 [facility] [id number] 08:12:00 08:12:00 t [facility] Medicine Outpati ent Clinics 2019-05-02 2019-05-02 [facility] [id number] 09:40:00 09:40:00 t [facility] Medicine Outpati ent Clinics 2017-12-09 2017-12-09 Emergency [facility] [id number] MH 02:14:00 05:57:[address] [place] [address] 2017-12-08 2017-12-08 Outpatient TATYANA Duran [facility] [id number] 20:14:00 23:57:00 Umm Seaywalope 2017-01-08 2017-01-08 Emergency [facility] [id number] 02:47:00 06:43:00 Chavez Avery [facility] 2017-01-07 2017-01-08 Outpatient Antolin Zuniga [facility] [id number] 20:47:00 00:43:00 Santo Results Test Description Test Time Test Comments Results Result Comments Source Echocardiogram complete w contrast and 3D if needed 20:23:00 Test Item Value Reference Range Interpretation Comme nts Velocity Ratio (V1/V2) (test code = 0.90 m/s 4689) IVS,d (test code = 0294523232) 0.96 cm EF (test code = 0144350302) 77.26 % LVPWD,d (test code = 9581151875) 0.88 cm AoV Mean PG (test code = 6750650404) 4.86 mmHg AV LVOT peak gradient (test code = 6.26 mmHg 8960905964) MV mean gradient (test code = 1.56 mmHg 6830866005) MV valve area p 1/2 method (test code 3.25 cm2 = 5588779743) E/A ratio (test code = 1878701042) 1.44 E wave decelartion time (test code = 233.46 msec 1901604736) LVOT Diam,S (test code = 3634186070) 2.11 cm LVOT area (test code = 3547379204) 3.49 cm2 LVOT Vmax (test code = 3092735314) 1.25 m/s LVOT VTI (test code = 3950378748) 0.23 m AoV Peak PG (test code = 4747908493) 7.72 mmHg MV Peak E Colton (test code = 9594679576) 1.04 m/s MV stenosis pressure 1/2 time (test 67.70 ms code = 4797420865) MV Peak A Colton (test code = 2947844589) 0.72 m/s Ao Root Diameter (test code = 2.80 cm 1572960074) AoV Area, Vmax (test code = 3.15 cm2 7471003802) AoV Area, VTI (test code = 5424892325) 3.02 cm2 AoV Vmax (test code = 9046918571) 1.39 m/s IVS/LVPW,2D (test code = 1642624006) 1.08 Left Atrium Dimension Anterior (test 4.26 cm code = 6438847779) LV,d (test code = 9770432405) 4.68 cm LV,s (test code = 7262233615) 2.53 cm MV E A ratio (test code = 0094115535) 1.43 MR peak grad (test code = 9260400120) 3.89 mmHg Ao Root Diameter (test code = 2.80 cm 2869408629) LV SYS VOL (test code = 7466749161) 23.05 ml LV LEDESMA VOL (test code = 3054105492) 101.38 ml LV SV Teich 2D (test code = 78.34 ml 2487857411) LV Vol s Teich PSAX (test code = 23.05 ml 8768920652) MV Vmax (test code = 8767819352) 0.99 m MV VTI Tips (test code = 7158045378) 0.26 m AoV Vmn (test code = 8405644235) 1.07 LV FS Cube 2D (test code = 1687642055) 45.90 LV FS Teich 2D (test code = 45.90 5632816419) LVPW d Mmode (test code = 0837258449) 0.89 AoV VTI (test code = 5871596667) 0.26 m LA Area d A4C (test code = 6675308534) 16.85 cm2 LV EF,2D (test code = 1643501758) 84.16 % MV AE ratio (test code = 4244639717) 0.70 LVOT Vmn (test code = 1859034808) 0.82 Aov area Vmn (test code = 1451220872) 2.68 cm2 LA Vol d MOD A4C (test code = 39.58 ml 0459623231) LVOT mean grad (test code = 3.17 mmHg 9413310690) MAX Pred HR (test code = 6320943753) 187.25 85 of MPHR (test code = 7983463229) 159.17 Calc MPHR (test code = 8174436262) 187.25 bpm LV SV Cube 2D (test code = 1854987089) 86.31 ml LV vol d cube 2D (test code = 102.55 ml 0854407413) LV vol s cube 2D (test code = 16.24 ml 0920695946) MV Decel slope (test code = 4.44 m/s2 8517869426) Pred Exer Dur R1 (test code = 10.85 6961322143) Pred METS R1 (test code = 1617685167) 10.44 IRASEMA (test code = IRASEMA) Normal left ventricular size and function with an EF~ 55% to 60%.Normal right ventricular size and function.Structurally normal cardiac valves.Left atrial enlargement. Normal pericardium with no effusion.Grade 1 diastolic dysfunction. Sergio MethodistECG 12 [id number] 19:31:06 Test Item Value Reference Range Interpretation Comments Ventricular rate (test 75 code = 253) Atrial rate (test code 75 = 255) NV interval (test code 176 = 266) QRSD [...] of 13-OCT-2019 04:48,-No significant change was found- [facility] [id number] 11:54:47 Test Item Value Reference Range Interpretation Comments POC glucose (test code 139 mg/dL 65-99 H RN No tifiedMeter ID: = [id number]) [id number] tor: Iwsuzettea Emem Lab Interpretation Abnormal (test code = 97347-9) Sergio LondonistHemoglobin [id number] 11:06:00 Test Item Value Reference Range Interpretation Comments Hemoglobin A1C (test 6.3 % 4-5.6 H HbA1c c utoffs for code = 43255-2) diagnosing diabetes:4.0% - 5.6% = normal5.7% - 6.4% = increased risk for diabetes (prediabetes)9> =6.5% = osdnanne7Betc s for glycemic contro l (ADA 2016)< 7.0% Ta rget for non adults with zoraida betes. More or less stringent targe ts may be appropriate for individual ayaz ents. <7.5% Target for Children and adolescents wit h type 1 diabetes. Lab Interpretation (test Abnormal code = 70954-6) Sergio GqogjnusqZ-[id number] 11:01:33 Test Item Value Reference Range Interpretation Comments D-dimer (test code = <0.27 0-0.4 Units a re ug/ml Fibrinogen 37939-7) Equivalent Unit .When combined with l ow [...] trauma, post-op erative states, sepsis, and malignancies. [place] ReligionThyroid stimulating [id number] 10:28:06 Test Item Value Reference Range Interpretation Comments TSH (test code = 3016-3) 2.31 0.27- 4.20 uIU/mL Sergio FerreiraCtzqwkcinTgwvdwtx7131-93-07 07:42:04 Test Item Value Reference Range Interpretation Comments Troponin (test code = <0.006 0-0.04 Gustavo markham Religion 25315-2) Laboratories ch anged methodology eff ective: 04/02/2019 at 10: 00 amThe new method has a 99th percentile cuto ff of 0.040 ng/mL Sergio FerreiraComprehensive metabolic [id number] 06:11:09 Test Item Value Reference Range Interpretation Comments Sodium (test code = 2951-2) 137 135- 148 mEq/L Potassium (test code = 2823-3) 3.5 3.5- 5.0 mEq/L Chloride (test code = 5-0) 102 98- 112 mEq/L CO2 (test code = 2027-9) 22 24- 31 mEq/L L Anion gap (test code = 31845-3) 13@ANIO 7- 15 mEq/L BUN (test code = 3094-0) 10 mg/dL 6-20 Creatinine (test code = 2160-0) 0.55 mg/dL 0.5-0.9 Glucose (test code = 2345-7) 114 mg/dL 65-99 H Calcium (test code = 83992-7) 8.9 mg/dL 8.3-10.2 Protein (test code = 2885-2) 6.9 g/dL 6.3-8.3 Albumin (test code = 1751-7) 3.8 g/dL 3.5-5 A/G ratio (test code = 1759-0) 1.2 0.7-3.8 Alkaline phosphatase (test code = 52 U/L 35-104 6768-6) AST (test code = 1920-8) 14 U/L 10-35 ALT (test code = 1742-6) 14 U/L 5-50 Total bilirubin (test code = 0.5 mg/dL 0.2-1.2 1974-12) Lab Interpretation (test code = Abnormal 98058-5) [place] MethodistLipid [id number] 06:11:09 Test Item Value Reference Interpretation Comments Range Cholesterol (test 116 mg/dL 0-199 code = 2093-3) Triglycerides (test 65 mg/dL 0-149 code = 2571-8) HDL cholesterol 31 mg/dL 40-53379 L (test code = 2085-9) LDL cholesterol 84 mg/dL 0-99 (test code = 2089-1) Lipid panel See below Total Cholester ol (mg/dL) interpretation (test < 200 code = 44579-5) Desirable 200-239 Borderline -high >=240 Hi gh [...] mg/dL) Lab Interpretation Abnormal (test code = 43650-5) [place] MethodistMagnesium [id number] 06:11:09 Test Item Value Reference Range Interpretation Comments Magnesium (test code = 17097-1) 2.0 mg/dL 1.6-2.6 [place] MethodistPhosphorus [id number] 06:11:09 Test Item Value Reference Range Interpretation Comments Phosphorus (test code = 2777-1) 3.9 mg/dL 2.4-4.5 [facility] MethodistEstimated [id number] 06:11:08 Test Item Value Reference Range Interpretation Comments Estimated GFR (test >=90 mL/min/1.73 m2 [facility] Units code = 5488) InterpretationG 1 >=90 Normal or highG2 60-89 Mildly hmvgwblxfJ2u 45-59 Mildly to mode rately vbxsyhyoeH2j 30-44 Moderately to severely decreasedG4 15-29 Severely decre asedG5 <15 Kidn ey failureThe eGFR was calculated stu encinas the Chronic Kidney Disease Epidemiology Co llaboration (CKD-EPI) equat ion. Interpretation is based on recommendations of the National Kidney Foundation-Kidn ey Disease Outcomes Qualit y Initiative (NKF-KDOQI) pub lished in 2014. [facility] MethodistIonized [id number] 05:53:07 Test Item Value Reference Range Interpretation Comments pH (test code = 2753-2) 7.42 Ionized calcium (test code = 1.04 mmol/L 1.11-1.32 L ) Lab Interpretation (test code = Abnormal 26947-0) [facility]CBC with platelet and rlzshhkcpnqm8386-94-87 05:49:31 Test Item Value Reference Range Interpretation Comments WBC (test code = 74323-6) 10.6 4.5- 11.0 k/uL RBC (test code = 05179-1) 3.80 m/uL 4.2-5.5 L HGB (test code = 718-7) 12.1 g/dL 12-16 HCT (test code = 4544-3) 37.1 % 37-47 MCV (test code = 787-2) 97.6 fL 82-100 MCH (test code = 785-6) 31.8 pg 27-34 MCHC (test code = 786-4) 32.6 g/dL 31-37 RDW - SD (test code = 50998-4) 46.0 fL 37-55 MPV (test code = 43023-5) 10.1 fL 6.9-11 Platelet count (test code = 266 K/uL 150-400 61111-9) Nucleated RBC (test code = 58169-5) 0.00 /100 WBC Neutrophils (test code = 70116-9) 55.6 % 39-69 Lymphocytes (test code = 84666-0) 37.2 % 25-45 Monocytes (test code = 23384-9) 5.6 % 0-10 Eosinophils (test code = 14116-1) 1.0 % 0-5 Basophils (test code = 08505-6) 0.3 % 0-1 Immature granulocytes (test code = 0.3 % 0-1 32188-5) Lab Interpretation (test code = Abnormal 36943-9) [place] [facility] Pe [id number] 01:23:56Hm Interface, Radiology Results - 10/13/2019 1:26 [...] suspicious osseous lesions. Other: None.IMPRESSION:1.No acute pulmonary embolus.[facility]-[id number] ReligionUrine [id number] 01:05:37 Test Item Value Reference Range Interpretation Comments Urine culture (test SEE COMMENT Bacteriu gabby screen code = 9562264) negative. [place] MethodistUrinalysis screen and microscopy, with reflex to culture 2019-10-13 01:05:35 Test Item Value Reference Range Interpretation Comments Specimen site (test code Clean catch = 2593892) Color, UA (test code = Yellow 5778-6) Appearance, UA (test Clear code = 5767-9) Specific gravity, UA 1.019 1.001-1.030 (test code = 5811-5) pH, UA (test code = 6.0 5.0-9.0 5803-2) Protein, UA (test code = Negative Negative 72113-8) Glucose, UA (test code = Negative Negative 66887-2) Ketones, UA (test code = Negative Negative 2514-8) Bilirubin, UA (test code Negative Negative = 5770-3) Blood, UA (test code = Small Negative A Resul ts confirmed, 5794-3) test repeated Nitrite, UA (test code = Negative Negative 5802-4) Urobilinogen, UA (test <2.0 <2.0 E.U./dL code = 06470-2) Leukocyte esterase, UA Negative Negative (test code = 5799-2) Epithelial cells, UA <1 /HPF (test code = 5787-7) Round epithelial cells, <1 0- 5 /HPF UA (test code = 02482-0) WBC, UA (test code = 3 0- 4 /HPF 5821-4) RBC, UA (test code = 2 0- 5 /HPF 67450-0) Bacteria, UA (test code None seen None seen = 98104-9) Yeast, UA (test code = None seen 71159-6) Yeast with pseudohyphae, None seen UA (test code = 49547-6) Lab Interpretation (test Abnormal code = 37580-7) [place] [facility], urine [id number] 00:44:42 Test Item Value Reference Range Interpretation Comments hCG qualitative, Negative Sensitivity of HCG test: urine (test code = 25 mIU/ml 6-3) [facility] ResourcesistCreatine kinase, total (CPK)2019-10-12 23:58:11 Test Item Value Reference Range Interpretation Comments Creatine kinase (test code = 2157-6) 74 U/L 26-192 [place] MethodistLipase [id number] 23:58:11 Test Item Value Reference Range Interpretation Comments Lipase (test code = 3040-3) 23 U/L 13-60 [place] MethodistXR Chest 1 Vw Ryizefsr0733-39-55 23:55:53Hm Interface, Radiology Results 10/12/2019 11:58 PM CSTEXAMINATION: XR CHEST 1 VW PORTABLECLINICAL HISTORY: chest painCOMPARISON: Chest radiograph 01/04/2018IMPRESSION:No pneumothorax, pleural effusion or focal consolidation.Normal cardiomediastinal silhouette.No acute osseous abnormality.H -[id number] MethodistB natriuretic [id number] 23:51:20 Test Item Value Reference Range Interpretation Comments BNP (test code = 63561-2) <3 0-100 [facility] thromb[facility], grtnudkfs9884-36-11 23:34:18 Test Item Value Reference Range Interpretation Comments PTT (test code = 32.1 23.0- 36.0 sec PTT thera peutic range for 3173-2) unfractionated heparin is61.0-112.0 se conds which corresponds to Anti-Xa0.3-0.7 U/ml. [facility] LakewayProthrombin time with [id number] 23:33:28 Test Item Value Reference Range Interpretation Comments Prothrombin time (test 13.9 11.5- 14.5 sec code = 5902-2) INR (test code = 1.1 The Interna tional 14079-9) Normalized Rati o (INR) is a therapeutic m onitoring tool for patien ts who are stable on oral anticoagulant t herapy. An INR of 2.0-3.0 is suggested for d eep vein thrombosis/pulm onary embolism. [facility] ED Preliminary Interpretation - Not an [id number] 22:58:15CastShmuel finley MD 10/13/2019 5:41 [facility] Interpretation - Not an OrderPerformed by: Shmuel Grijalva MDAuthorized by: Shmuel Grijalva MD ECG reviewed by ED Physician in theabsence of a mine engineering superintendent: yes Previous ECG: Previous ECG: UnavailableInterpretation: Interpretation: non-specific Rate: ECG rate: 99 ECG rate assessment: normal Rhythm: Rhythm: sinus rhythm Ectopy: Ectopy: none QRS: QRS axis: Normal QRS intervals: NormalConduction: Conduction: normal ST segments: ST segments: Non-specificT waves: T waves: non-specific and inverted Comm ents: Normal sinus rhythm, no evidence of acute ischemic changesSergio Ferreira
--- OUTSIDE RECORDS SUMMARY | 2020-04-16 14:21 | XMS REPORT | Summary of Care ---
:1985 Author Organization [facility] - Health Address [address] [place] [address] Care Team Providers Name Role Phone Klarissa Delgado Flores Insurance Hmo GABI Alvarez Primary Care Provider Encounter Details Date Type Department Care Team Description 04/16/2020 Orders Only [facility] Doctor Unassigned, No [address] [facility] [place] [address] [address] [place] [address] Allergies Active Allergy Reactions Severity Noted Date Comments Ibuprofen Rash 04/19/2017 documented as of this encounter (statuses as of 04/16/2020) Medications Medication Sig Dispensed Refills Start Date End Date Status sod bowfz-aumyzr-rbvzye Use 1 Bottle in 1 Each 0 [...] anovulation azelastine 137 mcg (0.1 Use 1 [place] in 30 mL 5 02/21/2020 Active %) [...] as of this encounter (statuses as of 04/16/2020) Active Problems Problem Noted Date Chronic idiopathic constipation 02/21/2020 Epistaxis 02/21/2020 Morbid obesity with body mass index of 40.0-49.9 01/02 Indigestion 07/25/2019 Overview: Added automatically from request for linda brian [id number] Epigastric pain 07/25/2019 Overview: Added automatically from request for linda brian [id number] Type 2 diabetes mellitus with complication, without [...] as of this encounter (statuses as of 04/16/2020) Immunizations Name Administration Dates Next Due Influenza [...] file Travel History Travel Start Travel End [place] 04/06/2020 04/11/2020 COVID-19 Exposure Response Date Recorded [...] Telemedicine Visit Family Medicine Clara Quarles MD [address] [place] [phone] 04/29/2020 Office Visit Otolaryngology Jorge L Willett MD [address] [place] [address] [phone] 06/04/2020 Telemedicine Visit Obstetrics & Gynecology Claritza Velez MD [address] [place] [address] [phone] 06/18/2020 Supervising Fire Marshal Visit Endocrinology Diabetes & LamonteRelga alvarez, RD Metabolism [address] [place], [place] [address] Health Maintenance Due Date Last Done Comments [...] Associated Diagnosis Comme nts CONSENT/REFUSAL FOR Routine 04/16/2020 7:17 AM CDT DIAGNOSIS AND TREATMENT documented in this encounter Results Not on filedocumented in this encounter Insurance Payer Benefit Plan / Subscriber ID Effective Dates Phone Addre ss Type Group [facility] xxxxxxxxx 2020-Present Medicaid COMM PLAN - PLUS MANAGED MEDICAID documented as of this encounter Advance Directives Name Relationship Healthcare Agent Communication Relationship Miranda Morales Sibling Primary healthcare agent Michelet Brower Significant Other First alternate [phone] healthcare agent (Mobile)
--- OUTSIDE RECORDS SUMMARY | 2020-04-16 14:21 | XMS REPORT | Summary of Care ---
:1985 Author Organization [facility] - Health Address [address] [place] [address] Care Team Providers Name Role Phone Danny Klarissa L Insurance Hmo GABI Alvarez Primary Care Provider Reason for Visit Reason Comments BLOATING Auth/Cert Status Reason Specialty Diagnoses / Referred By Referred To Procedures Contact Contact Emergency Medicine Diagnoses BLOATING [facility] Emergency Dept [address] [place] [address] Fax: Encounter Details Date Type Department Care Team Description 04/16/2020 Emergency ADC-Emergency Depart ment Roe Cody, DO [address] [place] [address] [address] [place], [place] [address] Allergies Active Allergy Reactions Severity Noted Date Comments Ibuprofen Rash 04/19/2017 documented as of this encounter (statuses as of 04/16/2020) Medications Medication Sig Dispensed Refills Start Date End Date Status sod hattw-ziueai-kimlwj Use 1 Bottle in 1 Each 0 [...] anovulation azelastine 137 mcg (0.1 Use 1 [place] in 30 mL 5 02/21/2020 Active %) [...] Added automatically from request for linda brian [id number] Epigastric pain 07/25/2019 Overview: Added automatically from request for linda brian [id number] Type 2 diabetes mellitus with complication, without [...] file Travel History Travel Start Travel End [place] 04/06/2020 04/11/2020 COVID-19 Exposure Response Date Recorded In the last month, have you been in contact with No / Unsure 04/16/2020 7:18 AM CDT someone who was confirmed or suspected to have Coronavirus / COVID-19? documented as of this encounter Last Filed Vital Signs Vital Sign Reading Time Taken Comments Blood Pressure 148/93 04/16/2020 7:29 AM CDT Pulse 87 04/16/2020 7:29 AM CDT Temperature 36.6 C (97.8 F) 04/16/2020 7:29 AM CDT Respiratory Rate 17 04/16/2020 7:29 AM CDT Oxygen Saturation 98% 04/16/2020 7:29 AM CDT Inhaled Oxygen Concentration - - Weight 104.3 kg (230 lb) 04/16/2020 7:29 AM CDT Height 162.6 cm (5' 4") 04/16/2020 7:29 AM CDT Body Mass Index 39.48 04/16/2020 7:29 AM CDT documented in this encounter Plan of Treatment Date Type Specialty Care Team Description 04/29/2020 Office Visit Otolaryngology Jorge L Willett MD [address] [place] [address] [place], [place] [address] 06/04/2020 Telemedicine Visit Obstetrics & Gynecology Claritza Velez MD [address] [place] [phone] 06/18/2020 Sales Broker Visit Endocrinology Diabetes & Regla Aburto, RD Metabolism [address] [place] [address] [phone] Health Maintenance Due Date Last Done Comments [...] Diagnosis Comme nts NOTICE OF PRIVACY Routine 04/16/2020 7:18 AM CDT PRACTICES documented in this encounter Results Not on filedocumented in this encounter Insurance Payer Benefit Plan / Subscriber ID Effective Dates Phone Addre ss Type Group [facility] xxxxxxxxx 2020-Present Medicaid COMM PLAN - PLUS MANAGED MEDICAID documented as of this encounter Advance Directives Name Relationship Healthcare Agent Communication Relationship Miranda Morales Sibling Primary healthcare agent Michelet Brower Significant Other First alternate [phone] healthcare agent (Mobile)
--- OUTSIDE RECORDS SUMMARY | 2020-04-16 14:22 | XMS REPORT | Summary of Care ---
:1985 Author Organization [facility] - [facility] Address [address] [place] [id number] Care Team Providers Name Role Phone Klarissa Delgado Flores Insurance Hmo GABI Alvarez Primary Care Provider Reason for Visit Reason Comments Abdominal Pain Gas Constipation Encounter Details Date Type Department Care Team Description 04/16/2020 Urgent Care [facility] Family Kathy Alvarez FNP [address] [address] Abdominal pain, unspecified abdominal lo cation (Primary Dx); [place] [id number], Acute Care Clinic Gas pain; [facility] Driv e Constipation, [place] [address] Allergies Active Allergy Reactions Severity Noted Date Comments Ibuprofen Rash 04/19/2017 documented as of this encounter (statuses as of 04/16/2020) Medications Medication Sig Dispensed Refills Start Date End Date Status sod pquch-mybkyn-kpqzgz Use 1 Bottle in 1 Each 0 [...] anovulation azelastine 137 mcg (0.1 Use 1 [place] in 30 mL 5 02/21/2020 Active %) [...] as needed for Nausea and Vomiting (N/V). Simethicone (GAS-X) 125 Take 1 capsule 60 capsule 1 04/16/2020 Active mg capsuleIndications: by mouth 2 Gas pain (two) times daily as needed (Gas Pain). docusate (COLACE) 100 mg Take 1 capsule 60 capsule 2 0 Active capsuleIndications: by mouth 2 Constipation, unspecified (two) times constipation type daily as needed for Constipation. sennosides (SENOKOT) 8.6 Take 1 tablet 30 tablet 2 04/16/2020 Active mg tabletIndications: by mouth daily. Constipation, unspecified constipation type documented as of this encounter (statuses as of 04/16/2020) Active Problems Problem Noted Date Gas pain 04/16/2020 Constipation, unspecified constipation type 04/16/2020 Chronic idiopathic constipation 02/21/2020 Epistaxis 02/21/2020 Morbid obesity with body mass index of 40.0-49.9 01/02 Indigestion 07/25/2019 Overview: Added automatically from request for linda brian [id number] Epigastric pain 07/25/2019 Overview: Added automatically from request for linda brian [id number] Type 2 diabetes mellitus with complication, without [...] file Travel History Travel Start Travel End [place] 04/06/2020 04/11/2020 COVID-19 Exposure Response Date Recorded In the last month, have you been in contact with No / Unsure 04/16/2020 7:18 AM CDT someone who was confirmed or suspected to have Coronavirus / COVID-19? documented as of this encounter Last Filed Vital Signs Vital Sign Reading Time Taken Comments Blood Pressure 124/76 04/16/2020 11:21 AM CDT Pulse 93 04/16/2020 11:21 AM CDT Temperature 36.9 C (98.4 F) 04/16/2020 11:21 AM CDT Respiratory Rate 18 04/16/2020 11:21 AM CDT Oxygen Saturation 98% 04/16/2020 11:21 AM CDT Inhaled Oxygen Concentration - - Weight 99.8 kg (220 lb) 04/16/2020 11:21 AM CDT Height 162.6 cm (5' 4") 04/16/2020 11:21 AM CDT Body Mass Index 37.76 04/16/2020 11:21 AM CDT documented in this encounter Patient Instructions Patient InstructionsEdMarvin poe MD - 04/16/2020 11:20 AM CDT Patient Education Erinn dieta con alto contenido [...] Pruebe estos alimentos para sumar fibra a galan dieta: Cereales y panes de grano integral. [...] comience a comer ms fibra, pregunte a galan proveedor de atencin mdica cunta agua debe beber para que el sistema digestivo contine funcionando gabirela. Fije u objetivo de cantidad de fibra diaria para galan dieta. La cantidad de fibra recomendada es [...] presente naturalmente enalimentos integrales saludables. Le da arden sensacin de saciedad despus de comer. Consumir suplementos de fibra o comer alimentos enriquecidos con fibra no le kimberly esta sensacin de saciedad. La ingesta de fibra es erinn buena medida de la calidad de galan dieta general. Si le est faltando galan cuota diaria de fibra, es posible que tambin le estn faltando otros nutrientes importantes. [phone] [place] [address]. Todos los derechos reservados. Esta informacin no pretende sustituir la atencin mdica profesional. Slo galan mdico puede diagnosticar y tratar un problema de domingo. Patient Education Estreimiento (Constipation) [Constipation, Adult] El estreimiento (constipation) se produce cuando usted evaca el intestino con menos frecuencia que lo habitual o cuando la materia fecal se sotomayor endurecido mucho. [place] puede producir inflamiento y dolor abdominal. Tambin es posible que evacuar el intestino le resulte doloroso o difcil. El estreimiento suele deberse a erinn dieta con poco contenido de fibra. Asimismo, hay algunos medicamentos que pueden provocarlo. El estreimiento se puede tratar con enemas, supositorios (suppositories), laxantes (laxatives) o ablandadores de heces (stool softeners). Galan mdico le indicar cul de ellos esel mejor para galan theresa. Es importante que siga los consejos que se detallan a continuacin para evitar tener nilda problema en el futuro. Cuidados En [place]: Medicamentos: [place] los medicamentos segn le hayan indicado. Algunos laxantes son seguros solo para uso ocasional. Otros pueden ser tomados de manera regular. Si tiene preguntas hable con galan mdicoo farmacutico. Cuidados Generales: Los calmantes del dolor (analgsicos) [pain medicine] pueden provocar estreimiento (constipation). Si le recetaron un calmante del dolor, pregntele a galan mdico si debe tambin edgardo un ablandador de heces. Es muy importante seguir todos los cedillo erinn dieta con alto contenido de fibra y abundantes lquidos. [place] ayuda a que las evacuaciones del intestino candice regulares y suaves. Los siguientes alimentos son buenas crowder de fibra diettica (dietary fiber): ? Cereales y panes: Cereal integral con salvado (Chex, Raisin Bran, Alpine Bran), lilly cocida, lilly en rollos, molletes (muffins) de salvado, panes integrales. ? Frutas: Todas las frutas frescas y secas (uvas pasas, ciruelas secas, albaricoques [damascos], fresas, higos). ? Verduras: Todas las verduras frescas, especialmente, chcharos (arvejas), brcoli, repollitos deBruselas, calabazas de invierno, frijoles (habichuelas) verdes, coliflor, habas, zanahorias. ? Otros: [place]om[place] de ann, arroz integral Cuando aumente la cantidad de fibra que consume, pao abundante agua. Programe erinn VISITA DE CONTROL con galan mdico o regrese a nilda centro si los sntomas no mejoran enlos prximos cedillo. Es posible que deban hacerles ms pruebas o que lo remitan a un especialista gastrointestinal (GI specialist). Busque Prontamente Atencin Mdica si algo de lo siguiente ocurre: Fiebre superior a los 100.4F (38C) No logra normalizar la evacuacin del intestino Mayor dolor abdominal o dolor en la espalda Nuseas o vmito Hinchazn abdominal Tea en la materia fecal Debilidad, mareos o desmayos Sangrado vaginal inesperado [phone] [employer]. [address] [place] [address], [place] [address]. Todos los derechos reservados. Esta informacin no pretende sustituir la atencin mdica profesional. Slo galan mdico puede diagnosticar y tratar un problema de domingo. documented in this encounter Progress Notes Marvin Ellison MD - 04/16/2020 11:20 AM CDT Cc: Chief Complaint Patient presents with Abdominal Pain Gas Constipation Mckenna Haney is a 35 year old female with PMH of gastritis c/o abdominal pain, with radiation to b/l low quadrants and sometimes to her back. Patient also reports chronic constipation and gas pain, currently using OTC remedies w/o relief. Allergies Mckenna is allergic to ibuprofen. Medications Outpatient Medications Prior to Visit Medication Sig Dispense Refill ondansetron 4 mg disintegrating tablet Take 1 tablet by mouth every 8 (eight) hours as needed for Nausea and Vomiting (N/V). 20 tablet 0 doxycycline hyclate 100 mg capsule Take 1 capsule by mouth 2 (two) times daily for 14 days. 28 capsule 0 fluconazole 150 mg tablet Take 1 now, then if still having symptoms in 3-5 days may take 2nd tablet 2 tablet 0 lisinopril 5 mg tablet Take 1 tablet by mouth daily. 30 tablet 5 blood sugar diagnostic (ACCU-CHEK GUIDE) strip Use [...] for ICD code E11.9 1 Each 0 fluticasone propionate 50 mcg/actuation nasal spray Use 2 Sprays in each nostril 2 (two) times daily. 16 g 4 sod bkynj-fumdvw-aztwxn bottle (NEILMED SINUS RINSE COMPLETE) pkdv Use 1 Bottle in each nostril 2 (two) times daily. Use in hot shower 1 hour before bedtime 1 Each 0 azelastine 137 mcg (0.1 %) nasal spray Use 1 [place] in each nostril 2 (two) times daily. Use in each nostril as directed 30 mL 5 traMADol 50 mg tablet Take 1 tablet by mouth every 6 (six) hours as needed for Pain (scale 7-10). 12 tablet 0 No facility-administered medications prior to visit. Histories Past Medical History: Diagnosis Date Anxiety Genital herpes type 1 GERD (gastroesophageal reflux disease) HTN (hypertension) Hypercholesteremia Seasonal allergies Trichimoniasis Type 2 diabetes mellitus Past Surgical History: Procedure Laterality Date CHOLECYSTECTOMY ESOPHAGOGASTRODUODENOSCOPY N/A 08/05/2019 Surgeon: Jeanette Pedro MD; Location: [facility] Social History Socioeconomic History Marital status: Spouse [...] file Gets together: Not on file Attends restorationist service: Not on file Active member of [...] denies physical and sexual abuse. [facility] . Family History Problem Relation Age of Onset Diabetes Mother High cholesterol Mother Hypertension Mother Diabetes Father Hypertension Father Diabetes Maternal Grandmother High cholesterol Maternal Grandmother Diabetes Maternal Grandfather High cholesterol Maternal Grandfather Diabetes Paternal Grandmother High cholesterol Paternal Grandmother Diabetes Paternal Grandfather High cholesterol Paternal Grandfather Review of Systems Constitutional: Positive for weight gain. Negative for chills, fatigue and fever. Respiratory: Negative for cough and shortness of breath. Cardiovascular: Negative for chest pain. Gastrointestinal: Positive for abdominal distention, abdominal pain and constipation. Genitourinary: Negative for urgency, frequency, flank pain, decreased urine volume, vaginal bleeding, vaginal discharge, vaginal pain, menstrual problem and pelvic pain. Endocrine: Positive for weight gain. Vital Signs BP 124/76 (BP Location: Left arm, Patient Position: Sitting, BP CUFF SIZE: Adult Medium) | Pulse 93 | Temp 36.9 C (98.4 F) (Temporal Artery) | Resp 18 | Ht 5' 4" (1.626 m) | Wt 220 lb (99.8 kg) | SpO2 98% | BMI 37.76 kg/m Physical Exam Constitutional: She is oriented to person, place, and time. No distress. HENT: Head: Normocephalic and atraumatic. Eyes: Pupils are equal, round, and reactive to light. EOM are normal. Neck: Normal range of motion. Neck supple. Cardiovascular: Normal rate and regular rhythm. Pulmonary/Chest: Effort normal and breath sounds normal. Abdominal: She exhibits distension. She exhibits no mass. There is tenderness. There is no rebound and no guarding. No hernia. Musculoskeletal: Normal range of motion. She exhibits no edema. Neurological: She is alert and oriented to person, place, and time. Skin: Capillary refill takes less than 2 seconds. Psychiatric: She has a normal mood and affect. Nursing note and vitals reviewed. Assessment/Plan Abdominal pain, unspecified abdominal location - Complicated by chronic constipation and gas pain. UA unremarkable. Conservative management. - COVID-19 (PCR MOLECULAR TESTING); Future - COVID-19 (PCR MOLECULAR TESTING) - POCT URINALYSIS W SPECIFIC GRAVITY - XR KUB; Future Gas pain - Simethicone (GAS-X) 125 mg capsule; Take 1 capsule by mouth 2 (two) times daily as needed (Gas Pain). Dispense: 60 capsule; Refill: 1 Constipation, unspecified constipation type - Diet modification discussed - docusate (COLACE) 100 mg capsule; Take 1 capsule by mouth 2 (two) times daily as needed for Constipation. Dispense: 60 capsule; Refill: 2 - sennosides (SENOKOT) 8.6 mg tablet; Take 1 tablet by mouth daily. Dispense: 30 tablet; Refill: 2 - XR KUB; Future Return if symptoms worsen or fail to improve. Preventive Care: Medication reconciliation, patient education and anticipatory guidance completed. All questions and concerns addressed. AVS given, handout on constipation provided. Marvin Ellison MD, MPH, AAHIVS [employer]el Technology Manager, Department of Family Medicine 04/16/2020 11:47 AM documented in this encounter Plan of Treatment Date Type Specialty Care Team Description 04/29/2020 Office Visit Otolaryngology Jogre L Willett MD [address] [place] [address] [address] [place], [place] [address] 06/04/2020 Telemedicine Visit Obstetrics & Gynecology Claritza Velez MD [address] [place] [phone] 06/18/2020 Nurse Instructor Visit Endocrinology Diabetes & Lamonte, Regla, RD Metabolism [address] [place] [address] [phone] Name Type Priority Associated Diagnoses Date/Ti me COVID-19 (PCR MOLECULAR LAB Routine Abdominal pain, 0 04/16/2020 11:16 AM CDT TESTING) unspecified abdominal location Name Type Priority Associated Diagnoses Order S alena COVID-19 (PCR LAB Routine Abdominal pain, Expected: 0 04/16/2020, MOLECULAR TESTING) unspecified abdominal Expires: 04/16/2021 location XR KUB IMAGING Routine Abdominal pain, Expected: , unspecified abdominal s: 04/16/2021 location Gas pain Constipation, unspecified constipation type Health Maintenance Due Date Last Done Comments [...] Name Priority Date/Time Associated Diagnosis Comme nts POCT URINALYSIS STAT 04/16/2020 11:42 AM Abdominal pain, Re sults for this CDT unspecified abdominal proced ure are in location the results section. documented in this encounter Results POCT URINALYSIS W SPECIFIC GRAVITY (04/16/2020 11:42 AM CDT) Pathologist Sig nature POCT U SP GRAV 1.025 1.005 - 1.025 mg/dl POCT PH U 5 5 - 8 mg/dl POCT U LEUK EST neg Negative - Negative POCT U NIT neg Negative - Negative POCT U PROT neg Negative - Negative POCT U GLU trace Negative - Negative POCT U KETONE neg Negative - Negative POCT U UROBILI neg 0.2 - 1 mg/dl POCT U BILI neg Negative - Negative POCT U BLD neg Negative - Negative POCT U COLOR yellow POCT U APPEAR clear Specimen Urine - URINE, CLEAN CATCH [facility] interpretation of all interna l controls documented in this encounter Visit Diagnoses Diagnosis Abdominal pain, unspecified abdominal lo cation - Primary Gas pain Flatulence, eructation, and gas pain Constipation, unspecified constipation t ype documented in this encounter Insurance Payer Benefit Plan / Subscriber ID Effective Dates Phone Addre ss Type Group [facility] xxxxxxxxx 2020-Present Medicaid COMM PLAN - PLUS MANAGED MEDICAID documented as of this encounter Advance Directives Name Relationship Healthcare Agent Communication Relationship Miranda Morales Sibling Primary healthcare agent Michelet Brower Significant Other First alternate [phone] healthcare agent (Mobile)
--- OUTSIDE RECORDS SUMMARY | 2020-04-16 14:22 | XMS REPORT | Summary of Care ---
:1985 Author Organization [facility] - [facility] Address [address] [place] [address] Care Team Providers Name Role Phone Klarissa Delgado Flores Insurance Hmo GABI Alvarez Primary Care Provider Reason for Visit Reason Comments Abdominal Pain Gas Constipation Encounter Details Date Type Department Care Team Description 04/16/2020 Urgent Care [place] Family Kathy Alvarez FNP [address] [address] Abdominal pain, unspecified abdominal lo cation (Primary Dx); [place] [id number], Acute Care Clinic Gas pain; [facility] Constipation, unspecified [place] [address] Allergies Active Allergy Reactions Severity Noted Date Comments Ibuprofen Rash 04/19/2017 documented as of this encounter (statuses as of 04/16/2020) Medications Medication Sig Dispensed Refills Start Date End Date Status sod juepm-rulgou-huvuwd Use 1 Bottle in 1 Each 0 [...] anovulation azelastine 137 mcg (0.1 Use 1 [place] in 30 mL 5 02/21/2020 Active %) [...] Added automatically from request for linda brian [id number] Epigastric pain 07/25/2019 Overview: Added automatically from request for linda brain [id number] Type 2 diabetes mellitus with complication, without [...] file Travel History Travel Start Travel End [place] 04/06/2020 04/11/2020 COVID-19 Exposure Response Date Recorded [...] tambin le estn faltando otros nutrientes importantes. [phone] [email or web address] [place] [address]. Todos los derechos reservados. Esta informacin no pretende sustituir la atencin mdica profesional. Slo galan mdico puede diagnosticar y tratar un problema de domingo. Patient Education Estreimiento (Constipation) [Constipation, Adult] El estreimiento (constipation) se produce cuando usted evaca el intestino con menos frecuencia que lo habitual o cuando la materia fecal se sotomayor endurecido mucho. [place] puede producir inflamiento y dolor abdominal. Tambin [...] problema en el futuro. Cuidados En [place]: Medicamentos: [place] los medicamentos segn le hayan indicado. Algunos [...] alto contenido de fibra y abundantes lquidos. [place] ayuda a que las evacuaciones del intestino candice regulares y suaves. Los siguientes alimentos son buenas crowder de fibra diettica (dietary fiber): ? Cereales y panes: Cereal integral con salvado (Chex, Raisin Bran, [place] Bran), lilly cocida, lilly en rollos, molletes [...] aumente la cantidad de fibra que consume, poa abundante agua. Programe erinn VISITA DE CONTROL [...] Debilidad, mareos o desmayos Sangrado vaginal inesperado [phone] [employer]. [address] [place] [address], [place] [address]. Todos los derechos reservados. Esta informacin no pretende sustituir la atencin mdica profesional. Slo galan mdico puede diagnosticar y tratar un problema de dmoingo. documented in this encounter Progress Notes Marvin [...] (two) times daily. 16 g 4 sod wpkle-zeaxjv-mxesod bottle (NEILMED SINUS RINSE COMPLETE) pkdv Use 1 Bottle in each nostril 2 (two) times daily. Use in hot shower 1 hour before bedtime 1 Each 0 azelastine 137 mcg (0.1 %) nasal spray Use 1 [place] in each nostril 2 (two) times daily. [...] N/A 08/05/2019 Surgeon: Jeanette Pedro MD; [place] [facility] [place] Social History Socioeconomic History Marital status: Spouse [...] file Gets together: Not on file Attends scientologist service: Not on file Active member of [...] denies physical and sexual abuse. [facility] . Family History Problem Relation [...] constipation provided. Marvin Ellison MD, MPH, AAHIVS [employer], Department of Family Medicine 04/16/2020 11:47 AM documented in this encounter Plan of Treatment Date Type Specialty Care Team Description 04/29/2020 Office Visit Otolaryngology Jorge L Willett MD [address] [place] [address] [address] [place], [place] [address] 06/04/2020 Telemedicine Visit Obstetrics & Gynecology Claritza Velez MD [address] [place] [phone] 06/18/2020 Director Marketing Visit Endocrinology Diabetes & Lamonte, Regla, RD Metabolism [address] [place] [address] [phone] Name Type Priority Associated Diagnoses Date/Ti me [...] - URINE, CLEAN CATCH Impressions Performed At [facility] development and interpretation of all interna l controls documented in this encounter Visit Diagnoses Diagnosis Abdominal pain, unspecified abdominal lo cation - Primary Gas pain Flatulence, eructation, and gas pain Constipation, unspecified constipation t ype documented in this encounter Insurance Payer Benefit Plan / Subscriber ID Effective Dates Phone Addre ss Type Group [facility] xxxxxxxxx 2020-Present Medicaid COMM PLAN - PLUS MANAGED MEDICAID documented as of this encounter Advance Directives Name Relationship Healthcare Agent Communication Relationship Miranda Morales Sibling Primary healthcare agent Michelet Brower Significant Other First alternate [phone] healthcare agent (Mobile)
--- NOTE | 2020-04-16 14:34 | RAD REPORT ---
EXAM DESCRIPTION: Patricia Single View04/16/2020 2:28 pm CLINICAL HISTORY: Chest pain COMPARISON: December 2019 FINDINGS: The lungs appear clear of acute infiltrate. The heart is normal size IMPRESSION: No acute abnormalities displayed
[2020-04-16 14:38] LABS: Absolute Lymphocytes (CBC) 3.8 K/uL (0.7-4.9); Basophils % 0.6 % (0-1.3); Hematocrit 42.7 % (36.0-45.0); Lymphocytes % 34.7 % (15.3-44.8); MPV 8.8 fL (7.6-11.3); RBC Red Blood Cell Count 4.26 M/uL (3.86-4.86)
[2020-04-16 14:48] LABS: Protime INR 1.16
[2020-04-16 15:01] LABS: ALT/SGPT 29 U/L (12-78); AST/SGOT 14 U/L (15-37); Albumin 3.9 g/dL (3.4-5.0); Alkaline Phosphatase 72 U/L (45-117); BUN Blood Urea Nitrogen 9 mg/dL (7-18); Bicarbonate 24 mmol/L (21-32); Bilirubin Direct 0.1 mg/dL (0-0.2); Bilirubin Total 0.5 mg/dL (0.2-1.0); Glucose Level 162 mg/dL (74-106); NT PRO-BNP 21 pg/mL (<125); Potassium 3.6 mmol/L (3.5-5.1); Protein, Total 8.4 g/dL (6.4-8.2); Sodium Level 138 mmol/L (136-145); Troponin (Emerg Dept Use Only) < 0.02 ng/mL (0.0-0.045)
--- NOTE | 2020-04-16 15:24 | EDPHYS ---
Physician Documentation [facility] Name: Mckenna Haney Age: 35 yrs Sex: Female : 1985 Arrival Date: 04/16/2020 Time: 13:57 Bed 17 Private MD: ED Physician David Gabriel HPI: 04/16 15:22 This 35 yrs old Female presents to ER via Ambulatory with complaints of Chest kb Pain. 15:22 The patient or guardian reports chest pain that is located primarily in the anterior kb chest wall, left. The pain radiates to both shoulders. Associated signs and symptoms: Pertinent positives: abdominal pain, Pertinent negatives: cough, diaphoresis, dizziness, headache, lower extremity pain, lower extremity swelling, lightheadedness, nausea, near syncope, palpitations, recent travel, shortness of breath, syncope, vomiting. The chest pain is described as aching. Duration: The patient or guardian reports a single episode. Modifying factors: The symptoms are alleviated by nothing. the symptoms are aggravated by nothing. Severity of pain: At its worst the pain was mild in the emergency department the pain is unchanged. The patient has not experienced similar symptoms in the past. The patient has been recently seen at the [facility] Emergency Department, yesterday, for unrelated complaints. 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: 14:06 LMP 03/09/2020 jl7 Historical: - Allergies: 14:06 Ibuprofen (Hives); jl7 - Home Meds: 14:06 buspirone 7.5 mg Oral tab 1 tab 2 times per day [Active]; cyclobenzaprine 7.5 mg Oral jl7 tab 1 tab 3 times per day [Active]; glyburide 5 mg Oral tab 1 tab once daily [Active]; hydroxyzine HCl 50 mg Oral tab 1 tab 4 times per day [Active]; meclizine 25 mg Oral tab 1 tab 3 times per day [Active]; medroxyprogesterone 10 mg Oral tab 1 tab once daily [Active]; - PMHx: 14:06 Diabetes - NIDDM; High Cholesterol; Hypertension; Ovarian cyst; jl7 - PSHx: 14:06 Cholecystectomy; jl7 - Immunization history:: Adult Immunizations up to date. - Social history:: Smoking status: Patient denies any tobacco usage or history of. ROS: 15:21 Constitutional: Negative for fever, chills, and weight loss, ENT: Negative for injury, kb pain, and discharge, Neck: Negative for injury, pain, and swelling, Respiratory: Negative for shortness of breath, cough, wheezing, and pleuritic chest pain, Back: Negative for injury and pain, : Negative for injury, bleeding, discharge, and swelling, MS/Extremity: Negative for injury and deformity, Skin: Negative for injury, rash, and discoloration, Neuro: Negative for headache, weakness, numbness, tingling, and seizure. 15:21 Cardiovascular: Positive for chest pain, Negative for edema, orthopnea, palpitations, paroxysmal nocturnal dyspnea. 15:21 Abdomen/GI: Positive for abdominal pain, Negative for nausea, vomiting, and diarrhea. Exam: 14:53 ECG was reviewed by the Attending Physician. kb 15:21 Constitutional: This is a well developed, well nourished patient who is awake, alert, kb and in no acute distress. Head/Face: Normocephalic, atraumatic. Chest/axilla: Normal chest wall appearance and motion. Nontender with no deformity. No lesions are appreciated. Cardiovascular: Regular rate and rhythm with a normal S1 and S2. No gallops, murmurs, or rubs. Normal PMI, no JVD. No pulse deficits. Respiratory: Lungs have equal breath sounds bilaterally, clear to auscultation and percussion. No rales, rhonchi or wheezes noted. No increased work of breathing, no retractions or nasal flaring. Back: No spinal tenderness. No costovertebral tenderness. Full range of motion. Skin: Warm, dry with normal turgor. Normal color with no rashes, no lesions, and no evidence of cellulitis. MS/ Extremity: Pulses equal, no cyanosis. Neurovascular intact. Full, normal range of motion. Neuro: Awake and alert, GCS 15, oriented to person, place, time, and situation. Cranial nerves II-XII grossly intact. Motor strength 5/5 in all extremities. Sensory grossly intact. Cerebellar exam normal. Normal gait. 15:21 Abdomen/GI: Inspection: abdomen appears normal, Bowel sounds: normal, in all quadrants, Palpation: soft, in all quadrants, mild abdominal tenderness, in all quadrants. Vital Signs: 14:03 BP 133 / 77; Pulse 89; Resp 17; Temp 98.6; Pulse Ox 98% ; Weight 104.33 kg; Height 5 jl7 ft. 4 in. (162.56 cm); Pain 9/10; 15:34 BP 122 / 76; Pulse 90; Resp 17; Pulse Ox 97% ; ah 14:03 Body Mass Index 39.48 (104.33 kg, 162.56 cm) jl7 MDM: 14:11 Patient medically screened. kb 14:53 Data reviewed: vital signs, nurses notes. Data interpreted: Pulse oximetry: on room air kb is 98 %. Interpretation: normal. 15:21 Counseling: I had a detailed discussion with the patient and/or guardian regarding: the kb historical points, exam findings, and any diagnostic results supporting the discharge/admit diagnosis, lab results, radiology results, the need for outpatient follow up, a family practitioner, to return to the emergency department if symptoms worsen or persist or if there are any questions or concerns that arise at home. 04/16 14:12 Order name: Basic Metabolic Panel; Complete Time: 15:04 kb 04/16 14:12 Order name: CBC with Diff; Complete Time: 15:04 kb 04/16 14:12 Order name: LFT's; Complete Time: 15:04 kb 04/16 14:12 Order name: Magnesium; Complete Time: 15:04 kb 04/16 14:12 Order name: NT PRO-BNP; Complete Time: 15:04 kb 04/16 14:12 Order name: PT-INR; Complete Time: 14:50 kb 04/16 14:12 Order name: Troponin (emerg Dept Use Only); Complete Time: 15:04 kb 04/16 14:12 Order name: XRAY Chest (1 view); Complete Time: 14:44 kb 04/16 14:12 Order name: EKG; Complete Time: 14:13 kb 04/16 14:12 Order name: Cardiac monitoring; Complete Time: 14:39 kb 04/16 14:12 Order name: EKG - Nurse/Tech; Complete Time: 14:39 kb 04/16 14:12 Order name: IV Saline Lock; Complete Time: 14:39 kb 04/16 14:12 Order name: Labs collected and sent; Complete Time: 14:39 kb 04/16 14:12 Order name: O2 Per Protocol; Complete Time: 14:39 kb 04/16 14:12 Order name: O2 Sat Monitoring; Complete Time: 14:39 kb EC:53 Rate is 83 beats/min. Rhythm is regular. QRS [place] is Normal. CA interval is normal at kb 166 msec. QRS interval is normal at 80 msec. QT interval is normal at 374 msec. Administered Medications: No medications were administered Disposition: 16:18 Co-signature as Attending Physician, David Gabriel MD I agree with the assessment and kdr plan of care. Disposition: 04/16/20 15:23 Discharged to Home. Impression: Chest pain, unspecified. - Condition is Stable. - Discharge Instructions: Nonspecific Chest Pain, [place]. - Medication Reconciliation Form, Thank You Letter, Antibiotic Education, Prescription Opioid Use form. - Follow up: Emergency Department; When: As needed; Reason: Worsening of condition. Follow up: Private Physician; When: 2 - 3 days; Reason: Recheck today's complaints, Continuance of care, Re-evaluation by your physician. Signatures: Dispatcher [employer] EDMO Clair Tadeo, INVESTIGATIONS MANAGER-C INVESTIGATIONS MANAGER-David Lynn MD MD [facility] Wes Cooper RN RN jl7 Paola Cleveland RN RN Corrections: (The following items were deleted from the chart) 15:37 15:23 04/16/2020 15:23 Discharged to Home. Impression: Chest pain, unspecified. Condition is Stable. Forms are Medication Reconciliation Form, Thank You Letter, Antibiotic Education, Prescription Opioid Use. Follow up: Emergency Department; When: As needed; Reason: Worsening of condition. Follow up: Private Physician; When: 2 - 3 days; Reason: Recheck today's complaints, Continuance of care, Re-evaluation by your physician. kb
--- NOTE | 2020-04-16 15:24 | ER ---
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 Coronavirus screen: Proceed with normal triage. Patient denies a cough. Patient denies shortness of breath or difficulty breathing. Patient denies measured and/or subjective temperature greater than 100.4F prior to today's visit. Patient denies travel on a cruise ship or to a country the [facility] currently lists as an affected area. Patient denies contact with known and/or suspected case of COVID-19. Ebola Screen: No symptoms or risks identified at this time. Initial Sepsis Screen: Does the patient meet any 2 criteria? No. Patient's initial sepsis screen is negative. Does the patient have a suspected source of infection? No. Patient's initial sepsis screen is negative. Risk Assessment: Do you want to hurt yourself or someone else? Patient reports no desire to harm self or others. Onset of symptoms was April 16, 2020. Care prior to arrival: None. 14:03 Method Of Arrival: Ambulatory 7 14:03 Acuity: ILLO 3 jl7 Triage Assessment: 14:06 General: Appears in no apparent distress. uncomfortable, Behavior is calm, cooperative, jl7 appropriate for age. Pain: Complains of pain in anterior aspect of left upper chest Pain radiates to left supraclavicular area and left arm Pain currently is 9 out of 10 on a pain scale. Quality of pain is described as sharp, Pain began 30 min ago. Neuro: Level of Consciousness is awake, alert, obeys commands, Oriented to person, place, time, situation. Cardiovascular: Patient's skin is warm and dry. Respiratory: Airway is patent Respiratory effort is even, unlabored, Respiratory pattern is regular, symmetrical. GI: Reports vomiting. Derm: Skin is pink, warm \T\ dry. 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 03/09/2020 jl7 Historical: - Allergies: 14:06 Ibuprofen (Hives); jl7 - Home Meds: 14:06 buspirone 7.5 mg Oral tab 1 tab 2 times per day [Active]; cyclobenzaprine 7.5 mg Oral jl7 tab 1 tab 3 times per day [Active]; glyburide 5 mg Oral tab 1 tab once daily [Active]; hydroxyzine HCl 50 mg Oral tab 1 tab 4 times per day [Active]; meclizine 25 mg Oral tab 1 tab 3 times per day [Active]; medroxyprogesterone 10 mg Oral tab 1 tab once daily [Active]; - PMHx: 14:06 Diabetes - NIDDM; High Cholesterol; Hypertension; Ovarian cyst; jl7 - PSHx: 14:06 Cholecystectomy; jl7 - Immunization history:: Adult Immunizations up to date. - Social history:: Smoking status: Patient denies any tobacco usage or history of. Screenin:32 Abuse screen: Denies threats or abuse. Nutritional screening: No deficits noted. Tuberculosis screening: No symptoms or risk factors identified. Fall Risk None identified. Assessment: 14:15 General: Appears in no apparent distress. Behavior is calm, cooperative. Neuro: Level ah of Consciousness is awake, alert, Oriented to person, place, time, situation. Cardiovascular: Heart tones S1 S2 present. Respiratory: Airway is patent Respiratory effort is even, unlabored, Respiratory pattern is regular, symmetrical. GI: No signs and/or symptoms were reported involving the gastrointestinal system. Bowel sounds present X 4 quads. : No signs and/or symptoms were reported regarding the genitourinary system. EENT: No signs and/or symptoms were reported regarding the EENT system. Derm: No signs and/or symptoms reported regarding the dermatologic system. Musculoskeletal: No signs and/or symptoms reported regarding the musculoskeletal system. 14:15 Pain: Complains of pain in anterior aspect of left upper chest Pain radiates to left ah arm. Vital Signs: 14:03 BP 133 / 77; Pulse 89; Resp 17; Temp 98.6; Pulse Ox 98% ; Weight 104.33 kg; Height 5 jl7 ft. 4 in. (162.56 cm); Pain 9/10; 15:34 BP 122 / 76; Pulse 90; Resp 17; Pulse Ox 97% ; ah 14:03 Body Mass Index 39.48 (104.33 kg, 162.56 cm) 7 ED Course: 13:57 Patient arrived in ED. ag5 14:05 Triage completed. jl7 14:06 Arm band placed on right wrist. [facility] 14:11 Clair Tadeo FNP-C [facility]. 14:11 David Gabriel MD is Attending Physician. kb 14:14 Paola Cleveland, RN is Primary Nurse. 14:15 Inserted saline lock: 20 gauge in right antecubital area, using aseptic technique. 14:31 XRAY Chest (1 view) In Process Unspecified. EDMS 15:33 No provider procedures requiring assistance completed. IV discontinued, intact, ah bleeding controlled, No redness/swelling at site. Pressure dressing applied. Patient maintains SpO2 saturation greater than 95% on room air. 15:34 Patient has correct armband on for positive identification. campus monitor on. Pulse ah ox on. NIBP on. Administered Medications: No medications were administered Outcome: 15:23 Discharge ordered by . 15:37 Discharged to home ambulatory. 15:37 Condition: good 15:37 Discharge instructions given to patient, Instructed on discharge instructions, follow up and referral plans. Demonstrated understanding of instructions, follow-up care. 15:37 Patient left the ED. Signatures: Dispatcher [employer] EDTN Clair Tadeo FNP-C FNP-Ckb Leal, Jahala RN RN [facility] Paola Cleveland, RN RN
[2020-04-16 16:06] VITALS: TEMP 98.6
[2020-04-16 16:07] VITALS: BP 122/76; O2SAT 97
--- NOTE | 2020-04-17 06:25 | EKG ---
Test Date: 2020-04-16 Test Time: 14:49:31 City Surveyor: TRINI MEASUREMENT RESULTS: Intervals: Rate: 83 CT: 166 QRSD: 80 QT: 374 QTc: 439 Alvin: P: 20 CT: 166 QRS: 18 T: 9 INTERPRETIVE STATEMENTS: Normal sinus rhythm Normal ECG Compared to ECG 01/22/2020 17:44:59 No significant changes Electronically Signed On 04-17-20 06:24:04 CDT by Danny Rand
== END 2020-04-16 15:37 | disposition home or self-care (01) ==
LOC: ER 13:56
DX: R07.9 Chest pain, unspecified (principal); I10 Essential (primary) hypertension; E78.00 Pure hypercholesterolemia, unspecified; E11.9 Type 2 diabetes mellitus without complications; Z88.6 Allergy status to analgesic agent
CPT/HCPCS: 36415; 71045; 80048; 80076; 83735; 83880; 84484; 85025; 85610; 93005; 99284

== ENCOUNTER 2020-04-30 09:55 | Emergency (ER) | payer OTHER ==
--- OUTSIDE RECORDS SUMMARY | 2020-04-30 10:47 | XMS REPORT | Clinical Summary ---
:1985 Author Organization [place] [facility] Address [address] [place] [address] Care Team Providers Name Role Phone Cm [...] Take 1 tablet 0 10/13/2019 Disco ntinued vit,[id number] by mouth daily. lic 29 mg iron- [...] Yuval Blanchard (Primary Dx) MD Helen after 04/30/2019 Immunizations Name Administration Dates Next Due FLUCELVAX [...] Comments Blood Pressure 105/62 10/13/2019 11:49 AM ASSOCIATE PROFESSOR OF PSYCHOLOGY Pulse 74 10/13/2019 11:49 AM ASSOCIATE PROFESSOR OF PSYCHOLOGY Temperature 36.8 C (98.2 F) 10/13/2019 11:49 AM ASSOCIATE PROFESSOR OF PSYCHOLOGY Respiratory Rate 18 10/13/2019 11:49 AM ASSOCIATE PROFESSOR OF PSYCHOLOGY Oxygen Saturation 98% 10/13/2019 11:49 AM ASSOCIATE PROFESSOR OF PSYCHOLOGY Inhaled Oxygen Concentration - - Weight 102 kg (225 lb) 10/12/2019 10:57 PM ASSOCIATE PROFESSOR OF PSYCHOLOGY Height 162.6 cm (5' 4") 10/12/2019 10:57 PM ASSOCIATE PROFESSOR OF PSYCHOLOGY Body Mass Index 38.62 10/12/2019 10:57 PM ASSOCIATE PROFESSOR OF PSYCHOLOGY Plan of Treatment Health Maintenance Due Date Last Done Comments DIABETIC RETINAL EYE EXAM 1987 DIABETIC FOOT EXAM 1997 URINE MICROALBUMIN 1997 CERVICAL CANCER SCREENING 2008 INFLUENZA VACCINE 06/27/2020 09/09/2019, 01/09/2018 Procedures Procedure Name Priority Date/Time Associated Comments Diagnosis POC GLUCOSE Routine 10/13/2019 11:48 Results for this AM ASSOCIATE PROFESSOR OF PSYCHOLOGY procedure are i n the results section. HEMOGLOBIN A1C Routine 10/13/2019 10:24 Results f or this AM ASSOCIATE PROFESSOR OF PSYCHOLOGY procedure are i n the results section. D-DIMER Routine 10/13/2019 10:24 Results for this AM ASSOCIATE PROFESSOR OF PSYCHOLOGY procedure are i n the results section. THYROID STIMULATING Routine 10/13/2019 9:54 Resu lts for this HORMONE AM ASSOCIATE PROFESSOR OF PSYCHOLOGY procedure are i n the results section. TTE COMPLETE, WO Routine 10/13/2019 9:15 Results for this CONTRAST, W DOPPLER AM ASSOCIATE PROFESSOR OF PSYCHOLOGY procedur e are in ([id number]) the results section. POC GLUCOSE Routine 10/13/2019 7:17 Results for this AM ASSOCIATE PROFESSOR OF PSYCHOLOGY procedure are i n the results section. TROPONIN Timed 10/13/2019 7:00 Results for this AM ASSOCIATE PROFESSOR OF PSYCHOLOGY procedure are i n the results section. ECG 12-LEAD Routine 10/13/2019 4:48 Results for this AM ASSOCIATE PROFESSOR OF PSYCHOLOGY procedure are i n the results section. ESTIMATED GFR Routine 10/13/2019 4:30 Results fo r this AM ASSOCIATE PROFESSOR OF PSYCHOLOGY procedure are i n the results section. TROPONIN Timed 10/13/2019 4:30 Results for this AM ASSOCIATE PROFESSOR OF PSYCHOLOGY procedure are i n the results section. IONIZED CALCIUM Routine 10/13/2019 4:30 Results for this AM ASSOCIATE PROFESSOR OF PSYCHOLOGY procedure are i n the results section. PHOSPHORUS LEVEL Routine 10/13/2019 4:30 Results for this AM ASSOCIATE PROFESSOR OF PSYCHOLOGY procedure are i n the results section. MAGNESIUM LEVEL Routine 10/13/2019 4:30 Results for this AM ASSOCIATE PROFESSOR OF PSYCHOLOGY procedure are i n the results section. COMPREHENSIVE METABOLIC Routine 10/13/2019 4:30 Results for this PANEL AM ASSOCIATE PROFESSOR OF PSYCHOLOGY procedure are i n the results section. HC COMPLETE BLD COUNT Routine 10/13/2019 4:30 Re sults for this W/AUTO DIFF AM ASSOCIATE PROFESSOR OF PSYCHOLOGY procedure are i n the results section. HEMOGLOBIN A1C Routine 10/13/2019 4:30 Results f or this AM ASSOCIATE PROFESSOR OF PSYCHOLOGY procedure are i n the results section. LIPID PANEL Routine 10/13/2019 4:30 Results for this AM ASSOCIATE PROFESSOR OF PSYCHOLOGY procedure are i n the results section. POC GLUCOSE Routine 10/13/2019 2:18 Results for this AM ASSOCIATE PROFESSOR OF PSYCHOLOGY procedure are i n the results section. CT ANGIOGRAM PE CHEST STAT 10/13/2019 1:18 Re sults for this AM ASSOCIATE PROFESSOR OF PSYCHOLOGY procedure are i n the results section. URINALYSIS SCREEN AND STAT 10/13/2019 12:16 Re sults for this MICROSCOPY, WITH REFLEX AM ASSOCIATE PROFESSOR OF PSYCHOLOGY proc edure are in TO CULTURE the results section. HCG QUALITATIVE, URINE Routine 10/13/2019 12:16 R esults for this SCREEN AM ASSOCIATE PROFESSOR OF PSYCHOLOGY procedure are i n the results section. URINE CULTURE STAT 10/13/2019 12:16 Results fo r this AM ASSOCIATE PROFESSOR OF PSYCHOLOGY procedure are i n the results section. XR CHEST 1 VW PORTABLE STAT 10/12/2019 11:43 R esults for this PM ASSOCIATE PROFESSOR OF PSYCHOLOGY procedure are i n the results section. ESTIMATED GFR Routine 10/12/2019 11:00 Results fo r this PM ASSOCIATE PROFESSOR OF PSYCHOLOGY procedure are i n the results section. B NATRIURETIC PEPTIDE STAT 10/12/2019 11:00 Re sults for this PM ASSOCIATE PROFESSOR OF PSYCHOLOGY procedure are i n the results section. LIPASE LEVEL STAT 10/12/2019 11:00 Results for this PM ASSOCIATE PROFESSOR OF PSYCHOLOGY procedure are i n the results section. TROPONIN STAT 10/12/2019 11:00 Results for this PM ASSOCIATE PROFESSOR OF PSYCHOLOGY procedure are i n the results section. CREATINE KINASE, TOTAL STAT 10/12/2019 11:00 R esults for this (CPK) PM ASSOCIATE PROFESSOR OF PSYCHOLOGY procedure are i n the results section. COMPREHENSIVE METABOLIC Routine 10/12/2019 11:00 Results for this PANEL PM ASSOCIATE PROFESSOR OF PSYCHOLOGY procedure are i n the results section. PARTIAL THROMBOPLASTIN Routine 10/12/2019 11:00 R esults for this TIME (PTT) PM ASSOCIATE PROFESSOR OF PSYCHOLOGY procedure are i n the results section. PROTHROMBIN TIME WITH Routine 10/12/2019 11:00 Re sults for this INR PM ASSOCIATE PROFESSOR OF PSYCHOLOGY procedure are i n the results section. HC COMPLETE BLD COUNT Routine 10/12/2019 11:00 Re sults for this W/AUTO DIFF PM ASSOCIATE PROFESSOR OF PSYCHOLOGY procedure are i n the results section. ECG ED PRELIMINARY Routine 10/12/2019 10:58 Resul ts for this INTERPRETATION PM ASSOCIATE PROFESSOR OF PSYCHOLOGY procedure are in the results section. ECG 12-LEAD STAT 10/12/2019 10:54 Results for this PM ASSOCIATE PROFESSOR OF PSYCHOLOGY procedure are i n the results section. after 04/30/2019 Results POC glucose (10/13/2019 11:48 AM ASSOCIATE PROFESSOR OF PSYCHOLOGY)Only the most recent of3 resultswithin the time period is included. Pathologist Sig nature POC glucose 139 (H) 65 - 99 mg/dL JUDAH TENRIISM Comment: [facility] RN Notified Meter ID: [id number] Acid Etch Operator: Gucci Murguia Specimen Performing Organization Address City/State/Zipcode Phone Number [facility] DEPARTMENT OF PATHOLOGY [address] [place] [address]. [facility] X [address] [place] [address] [facility] D-dimer (10/13/2019 10:24 AM ASSOCIATE PROFESSOR OF PSYCHOLOGY) Pathologist [facility] D-dimer <0.27 0.00 - 0.40 JUDAH ALLEN Comment: ug/mL [facility] Units are ug/ml Fibrinogen Equivalent Unit. HOSPITAL [...] Organization Address City/State/Zipcode Phone Number [facility] DEPARTMENT OF PATHOLOGY [address] [place] [address]. [facility] X [address] [place] [address] [facility] Hemoglobin A1c (10/13/2019 10:24 AM ASSOCIATE PROFESSOR OF PSYCHOLOGY)Only the most recent of2 resultswithin the time period is included. Pathologist [facility] Hemoglobin A1C 6.3 (H) 4.0 - 5.6 % JUDAH ALLEN Comment: [facility] HbA1c cutoffs for diagnosing diabetes: HO SPITAL [...] Organization Address City/State/Zipcode Phone Number [facility] DEPARTMENT OF PATHOLOGY [address] [place] [address]. [facility] X [address] [facility] X [address] [facility] Thyroid stimulating hormone (10/13/2019 9:54 AM ASSOCIATE PROFESSOR OF PSYCHOLOGY) Pathologist [facility] TSH 2.31 0.27 - 4.20 uIU/mL [facility] Juany [facility] Specimen Blood Performing Organization Address City/State/Zipcode Phone Number [facility] DEPARTMENT OF PATHOLOGY [address] [facility] [place] [address] AND GENOMIC MEDICINE [facility] GINGER [facility] [address] [facility], X [address] [facility] Echocardiogram complete w contrast and 3D if needed (10/13/2019 9:15 AM ASSOCIATE PROFESSOR OF PSYCHOLOGY) Pathologist [facility] Velocity Ratio (V1/V2) 0.90 m/s SYNGO IVS,d [...] Grade 1 diastolic dysfunction. Performing Organization Address City/[facility] Phone Number [facility] [address] [place] [address], Troponin (10/13/2019 7:00 AM ASSOCIATE PROFESSOR OF PSYCHOLOGY)Only the most recent of3 resultswithin the time period is included. Troponin <0.006 0.000 - 0.040 SO TENRIISM Comment: ng/mL [employer] [place] [facility] changed methodology eff ective: HOSPITAL 04/02/2019 at 10:00 am The new method has a 99th percentile cutoff of 0.040 n g/mL Specimen Plasma specimen Performing Organization Address City/[facility]/Zipcode Phone Number [facility] DEPARTMENT OF PATHOLOGY [address] [facility] [employer] [address] AND GENOMIC MEDICINE [facility] [employer] [address] [facility] [place] [facility] [address] [facility] ECG 12 lead (10/13/2019 4:48 AM ASSOCIATE PROFESSOR OF PSYCHOLOGY)Only the most recent of2 resultswithin the time period is included. Pathologist Sig nature Ventricular rate 75 [facility] Atrial rate 75 [facility] AL interval 176 [facility] QRSD interval 84 [facility] QT interval 406 [facility] QTC interval 453 [facility] P axis 1 26 [facility] QRS axis 1 12 [facility] T wave axis 28 [facility] EKG impression Normal sinus rhythm-Possible Anterior infarct (cited on or before 13-OCT-2019)-Abnormal ECG-In automated comparison with ECG of 13-OCT-2019 04:48,-No significant change was found-Electronically Signed B [facility] MUSE y Tayo PASTOR, Ruben Rachel (2007) on 10/13/2019 7:31:01 PM Specimen Narrative Performed At This result has an attachment that is no t available. Performing Organization Address City/State/Zipcode Phone Number [facility] MUSE [address] [place] [address] Estimated GFR (10/13/2019 4:30 AM ASSOCIATE PROFESSOR OF PSYCHOLOGY)Only the most recent of2 resultswithin the time period is included. Pathologist [facility] Estimated GFR >=90 mL/min/1.73 [facility] Comment: m2 [facility] Catergory Units Interpretation HOS PITAL G1 >=90 [...] Organization Address City/State/Zipcode Phone Number [facility] DEPARTMENT OF PATHOLOGY [address] [facility] X [address] AND GENOMIC MEDICINE [facility] [address] [facility] X [address] [facility] CBC with platelet and differential (10/13/2019 4:30 AM ASSOCIATE PROFESSOR OF PSYCHOLOGY)Only the most recent of2 resultswithin the time period is included. WBC 10.6 4.5 - 11.0 k/uL [facility] RBC 3.80 (L) 4.20 - 5.50 [facility] m/uL [facility] HGB 12.1 12.0 - 16.0 [facility] g/dL [facility] HCT 37.1 37.0 - 47.0 % [facility] MCV 97.6 82.0 - 100.0 fL [facility] MCH 31.8 27.0 - 34.0 pg [facility] MCHC 32.6 31.0 - 37.0 [facility] - SD 46.0 37.0 - 55.0 fL [facility] MPV 10.1 6.9 - 11.0 fL [facility] Platelet count 266 150 - 400 K/uL [facility] Nucleated RBC 0.00 /100 WBC [facility] Neutrophils 55.6 39.0 - 69.0 % [facility] Lymphocytes 37.2 25.0 - 45.0 % [facility] Monocytes 5.6 0.0 - 10.0 % [facility] Eosinophils 1.0 0.0 - 5.0 % [facility] Basophils 0.3 0.0 - 1.0 % [facility] Immature granulocytes 0.3 0.0 - 1.0 % [facility] Specimen Blood Performing Organization Address City/State/Zipcode Phone Number [facility] DEPARTMENT OF PATHOLOGY [address] [place] [address] X [address] [place] [address] HOSPITAL Phosphorus level (10/13/2019 4:30 AM ASSOCIATE PROFESSOR OF PSYCHOLOGY) Pathologist Sig nature Phosphorus 3.9 2.4 - 4.5 mg/dL [facility] Specimen Plasma specimen Performing Organization Address City/[facility]/Zipcode Phone Number [facility] DEPARTMENT OF PATHOLOGY [id number] [place] [address] X [address] AND [facility] [address] [place] [address] HOSPITAL Magnesium level (10/13/2019 4:30 AM ASSOCIATE PROFESSOR OF PSYCHOLOGY) Pathologist Sig nature Magnesium 2.0 1.6 - 2.6 mg/dL [facility] Specimen Plasma specimen Performing Organization Address [facility] Phone Number [facility] DEPARTMENT OF PATHOLOGY [phone] [place] [address] AND [facility] [phone] [place] [address] [facility] Ionized calcium (10/13/2019 4:30 AM ASSOCIATE PROFESSOR OF PSYCHOLOGY) Pathologist Sig nature pH 7.42 [facility] Ionized calcium 1.04 (L) 1.11 - 1.32 [facility] mmol/L [facility] Specimen Plasma specimen Performing Organization Address [facility] Phone Number [facility] DEPARTMENT OF PATHOLOGY [address] [place] [phone] [place] [address] Lipid panel (10/13/2019 4:30 AM ASSOCIATE PROFESSOR OF PSYCHOLOGY) Cholesterol 116 0 - 199 [place] mg/dL [facility] Triglycerides 65 0 - 149 [place] mg/dL [facility] HDL cholesterol 31 (L) 40 - 99,999 [place] mg/dL [facility] LDL cholesterol 84 0 - 99 mg/dL [facility] Lipid panel See below [place] interpretation Comment: TENRIISM SUGAR Total Cholesterol (mg/dL) [facility] <200 Desirable 200-239 Borderline-high >=240 High [...] mg/dL) Specimen Plasma specimen Performing Organization Address City/[facility]/Zipcode Phone Number [facility] DEPARTMENT OF PATHOLOGY [address] [facility] X [address] AND [facility] [phone] [place] [id number] [place] [address] Comprehensive metabolic panel (10/13/2019 4:30 AM ASSOCIATE PROFESSOR OF PSYCHOLOGY)Only the most recent of2 resultswithin the time period is included. Pathologist Sig nature Sodium 137 135 - 148 mEq/L [facility] Potassium 3.5 3.5 - 5.0 mEq/L [facility] Chloride 102 98 - 112 mEq/L [facility] CO2 22 (L) 24 - 31 mEq/L [facility] Anion gap 13@ANIO 7 - 15 mEq/L [facility] BUN 10 6 - 20 mg/dL [facility] Creatinine 0.55 0.50 - 0.90 [facility] mg/dL [facility] Glucose 114 (H) 65 - 99 mg/dL [facility] Calcium 8.9 8.3 - 10.2 mg/dL [facility] Protein 6.9 6.3 - 8.3 g/dL [facility] Albumin 3.8 3.5 - 5.0 g/dL [facility] A/G ratio 1.2 0.7 - 3.8 [facility] Alkaline phosphatase 52 35 - 104 U/L [facility] AST 14 10 - 35 U/L [facility] ALT 14 5 - 50 U/L [facility] Total bilirubin 0.5 0.2 - 1.2 mg/dL [facility] Specimen Plasma specimen Performing Organization Address [facility]/Zipcode Phone Number [facility] DEPARTMENT OF PATHOLOGY [address] [facility] X [address] AND [facility] [address] [facility] X [phone] [place] [address] CT Angiogram Pe Chest (10/13/2019 1:18 AM ASSOCIATE PROFESSOR OF PSYCHOLOGY) Specimen Narrative Performed At EXAMINATION: RADIANT CT [...] Other: None. IMPRESSION: 1.No acute pulmonary embolus. [facility]-[id number] Procedure Note Interface, Radiology Results Incoming - 10/13/2019 1:26 AM ASSOCIATE PROFESSOR OF PSYCHOLOGY EXAMINATION: CT ANGIOGRAM PE CHEST CLINICAL HISTORY:34 [...] Other: None. IMPRESSION: 1.No acute pulmonary embolus. [facility]-[id number] Performing Organization Address City/State/Zipcode Phone Number [facility] [address] [place] [address] Urinalysis screen and microscopy, with reflex to culture (10/13/2019 12:16 AM ASSOCIATE PROFESSOR OF PSYCHOLOGY) Specimen site Clean catch [facility] Color, UA Yellow [facility] Appearance, UA Clear [facility] Specific gravity, 1.019 1.001 - 1.030 [facility] pH, UA 6.0 5.0 - 9.0 [facility] Protein, UA Negative Negative [facility] Glucose, UA Negative Negative [facility] Ketones, UA Negative Negative [facility] Bilirubin, UA Negative Negative [facility] Blood, UA Small Negative [facility] (A)Comment: [facility] confirmed, test repeated Nitrite, UA Negative Negative [facility] Urobilinogen, UA <2.0 <2.0 E.U./dL [facility] Leukocyte esterase, Negative Negative [facility] Epithelial cells, <1 /HPF [facility] Round epithelial <1 0 - 5 /HPF [facility] cells, [facility] WBC, UA 3 0 - 4 /HPF [facility] RBC, UA 2 0 - 5 /HPF [facility] Bacteria, UA None seen None seen [facility] Yeast, UA None seen [facility] Yeast with None seen [facility] pseudohyphae, [facility] Specimen Urine Performing Organization Address City/[facility]/Zipcode Phone Number [facility] DEPARTMENT OF PATHOLOGY [address] [place] [address] X [address] AND GENOMIC [facility] [id number] [place] [phone] [place] [address] hCG qualitative, urine screen (10/13/2019 12:16 AM ASSOCIATE PROFESSOR OF PSYCHOLOGY) hCG qualitative, NegativeComment: [facility] urine Sensitivity of HCG [facility] test: 25 mIU/ml HOSPITAL Specimen Urine Performing Organization Address City/[facility]/Zipcode Phone Number [facility] DEPARTMENT OF PATHOLOGY [address] [place] [address] X [address] AND GENOMIC MEDICINE [facility] [id number] [place] [phone] [place] [address] Urine culture (10/13/2019 12:16 AM ASSOCIATE PROFESSOR OF PSYCHOLOGY) Pathologist Sig nature Urine culture SEE COMMENTComment: [facility] Bacteriuria screen [facility] negative. Specimen Performing Organization Address [facility] Phone Number [facility] DEPARTMENT OF PATHOLOGY [id number] [place] [address] X [address] X [address] HOSPITAL XR Chest 1 Vw Portable (10/12/2019 11:43 PM ASSOCIATE PROFESSOR OF PSYCHOLOGY) Specimen Narrative Performed At EXAMINATION: XR CHEST 1 VW PORTABLE RADIANT CLINICAL HISTORY: chest pain COMPARISON: Chest radiograph 01/04/2018 IMPRESSION: No pneumothorax, pleural effusion or foc al consolidation. Normal cardiomediastinal silhouette. No acute osseous abnormality. [facility]-[id number] Procedure Note Hm Interface, Radiology Results Incoming - 10/12/2019 11:58 PM ASSOCIATE PROFESSOR OF PSYCHOLOGY EXAMINATION: XR CHEST 1 VW PORTABLE CLINICAL HISTORY: chest pain COMPARISON: Chest radiograph 01/04/2018 IMPRESSION: No pneumothorax, pleural effusion or foc al consolidation. Normal cardiomediastinal silhouette. No acute osseous abnormality. [facility]-[id number] Performing Organization Address [facility] Hospitalcotx Phone Number [facility] [address] [place] [address] Partial thromboplastin time, activated (10/12/2019 11:00 PM ASSOCIATE PROFESSOR OF PSYCHOLOGY) PTT 32.1 23.0 - 36.0 JUDAH ALLEN Comment: [facility] PTT therapeutic range for unfractionated heparin is HOSPITAL 61.0-112.0 seconds which corresponds to Anti-Xa 0.3-0.7 U/ml. Specimen Blood Performing Organization Address [facility]/Zipcode Phone Number [facility] DEPARTMENT OF PATHOLOGY [phone] [place] [address] X [address] [place] [address] HOSPITAL Prothrombin time with INR (10/12/2019 11:00 PM ASSOCIATE PROFESSOR OF PSYCHOLOGY) Prothrombin time 13.9 11.5 - 14.5 [facility] INR 1.1 UJDAH Comment: TIFFANY PATEL [facility] International Normalized Ratio (INR) is a therapeu [facility] monitoring tool for patients who are stable on oral anticoagulant therapy. An INR of 2.0-3.0 is suggested for deep vein thrombosis/pulmonary embolism. Specimen Blood Performing Organization Address [facility] Hospital[facility] Phone Number [facility] DEPARTMENT OF PATHOLOGY [address] [place] [address] X [address] [place] [address] [facility] B natriuretic peptide (10/12/2019 11:00 PM ASSOCIATE PROFESSOR OF PSYCHOLOGY) Pathologist Sig nature BNP <3 0 - 100 pg/mL [facility] Specimen Blood Performing Organization Address City/[facility] Phone Number [facility] DEPARTMENT OF PATHOLOGY [address] [place] [address] X [address] [place] [address] [facility] Lipase level (10/12/2019 11:00 PM ASSOCIATE PROFESSOR OF PSYCHOLOGY) Pathologist Sig nature Lipase 23 13 - 60 U/L [facility] Specimen Plasma specimen Performing Organization Address [facility] Hospital[facility] Phone Number [facility] DEPARTMENT OF PATHOLOGY [address] [place] [address] X [address] [place] [address] [facility] Creatine kinase, total (CPK) (10/12/2019 11:00 PM ASSOCIATE PROFESSOR OF PSYCHOLOGY) Pathologist Sig nature Creatine kinase 74 26 - 192 U/L [facility] Specimen Plasma specimen Performing Organization Address [facility] Phone Number [facility] DEPARTMENT OF PATHOLOGY [address] [place] [address], X [address] X [address] [facility] ECG ED Preliminary Interpretation - Not an Order (10/12/2019 10:58 PM ASSOCIATE PROFESSOR OF PSYCHOLOGY) Narrative Performed At Shmuel Grijalva MD 10/13/2019 5:41 AM ECG ED Preliminary Interpretation - Not an Order Performed by: Shmuel Grijalva MD Authorized by: Shmuel Grijalva MD ECG reviewed by ED Physician in the abse nce of a clinical rehab liaison: yes Previous ECG: Previous ECG: Unavailable Interpretation: Interpretation: non-specific Rate: ECG rate: 99 ECG rate assessment: normal Rhythm: Rhythm: sinus rhythm Ectopy: Ectopy: none QRS: QRS axis: Normal QRS intervals: Normal Conduction: Conduction: normal ST segments: ST segments: Non-specific T waves: T waves: non-specific and inverted Comments: Normal sinus rhythm, no evidence of acute ischemic changes after 04/30/2019 Additional Health Concerns Infection Noted Time Resolved Time ESBL (C ) 01/08/2018 10:22 AM ASSOCIATE PROFESSOR OF PSYCHOLOGY Advance Directives For more information, please contact: [phone] Type Date Recorded Patient Supervisor Quality Control Explanati on Advance Directives, Living 01/04/2018 1:11 AM Will and Medical Power of Student Support Advisor Advance Directives, Living 11/10/2018 5:28 PM Will and Medical Power of Student Support Advisor Advance Directives, Living 10/12/2019 11:26 PM Will and Medical Power of Student Support Advisor
--- OUTSIDE RECORDS SUMMARY | 2020-04-30 10:48 | XMS REPORT | Continuity of Care Document ---
:1985 Author Organization [employer] Care Team Providers Name Role Phone [employer] Unavailable Un available Problems Problem Status Onset Classification Date Comments Sourc e Date Reported Unspecified 03/16/2018 [place] otitis externa, 8 right ear Cough 03/16/[address] [place] EAR PAIN/ Active [facility] COGESTION 8 [place] BLEEDING, 3WKS Active Memor ial 7 [place] Medications Medication Details Route Status Patient Ordering Order Source Instructions Provider Date tramadol 50 mg, Inactive MH hydrochloride 50 Route: PO, 018 [place] MG Oral Tablet Drug form: TAB, ONCE, Dosing Weight 107.273, kg, Priority: STAT, Start date: 12/08/17 23:51:00 BUSINESS DEVELOPMENT SPECIALIST, Stop date: 12/08/17 23:51:00 BUSINESS DEVELOPMENT SPECIALIST 200 ACTUAT 2 puff, Active MH Albuterol 0.09 INHALER, 018 [place] MG/ACTUAT Q4H, PRN Metered Dose wheezing, Inhaler [...] MH MG/ML / RIGHT EAR, Active 018 [place] Dexamethasone 1 BID, X 7 MG/ML Otic day, # 1 Suspension btl, 0 [Ciprodex] Refill(s) Albuterol 0.833 Notes: Inactive MH MG/ML / (Same as: 018 [place] Ipratropium Duoneb) [place] 0.167 MG/ML Inhalant Solution [DuoNeb] Allergies, Adverse Reactions, Alerts Substance Category Reaction Severity Reaction Status Date Comments S ource type Reported Motrin Assertion Drug Active allergy [place] Immunizations No Data Provided for This Section Results No Data Provided for This Section Pathology Reports No Data Provided for This Section Diagnostic Reports Report Value Date Source Chest 2 views DX EXAM: XR CHEST 2 VIEW 12/08/2017 [facility] DATE: 12/08/2017 9:31 PM BUSINESS DEVELOPMENT SPECIALIST INDICATION: Cough. COMPARISON: 04/24/2010. TECHNIQUE: PA and lateral views of the chest wer e obtained. FINDINGS: No focal consolidation or pn eumothorax is identified. The cardiomediastinal silhouette is within normal limits. The costophrenic recesses are sharp and without effusion. No acute osseous abnormality is noted. IMPRESSION: No acute cardiopulmonary abnormality. SL: [id number] Consultation Notes No Data Provided for This Section Discharge Summaries No Data Provided for This Section History and Physicals No Data Provided for This Section Vital Signs Vital Sign Value Date Comments Source Respitory Rate 18 12/09/2017 [facility] Systolic (mm Hg) 146 12/09/2017 [facility] Diastolic (mm Hg) 95 12/09/2017 [facility] Heart Rate 109 12/09/2017 [facility] Respitory Rate 18 12/09/2017 [facility] Weight 107.273 12/09/2017 [facility] Heart Rate 100 12/09/2017 [facility] Systolic (mm Hg) 141 12/09/2017 [facility] Diastolic (mm Hg) 79 12/09/2017 [facility] Respitory Rate 20 12/09/2017 [facility] Temperature Oral (F) 98.9 F 12/09/2017 [facility] Weight 103.636 01/08/2017 [facility] BMI Calculated 39.22 01/08/2017 [facility] Height 162.56 cm 01/08/2017 [facility] Systolic (mm Hg) 134 01/08/2017 [facility] Diastolic (mm Hg) 93 01/08/2017 [facility] Temperature Oral (F) 98 F 01/08/2017 [facility] Heart Rate 102 01/08/2017 [facility] Respitory Rate 18 01/08/2017 [facility] Encounters Location Location Encounter Encounter Reason Attending ADM DC Stat us Source Details Type Number For Provider Date Date [facility] [id number] Antolin Zuniga 01/08 01/08 [facility] /2016 [facility] Emergency [id number] Umm 12/09 12/09 [place] Aguilar /2017 [facility] Procedures No Data Provided for [...]
--- OUTSIDE RECORDS SUMMARY | 2020-04-30 10:50 | XMS REPORT | Continuity of Care Document ---
:1985 Author Organization [facility] t Address [address] [place] [address] Care Team Providers Name Role Phone Cm Troy MD Primary Care Physician Provider, Ang Urgent Care Attending Clinician Unavailable Martha FUNES Attending Clinician Heike PASTOR, S Attending Clinician Doctor Unassigned, Name Attending Clinician Unavailable Antonio ANDREWSP Attending Clinician Michael FUNES, M Attending Clinician Pob1, Care Clinic Attending Clinician Unavailable Rudi PASTOR Attending Clinician Santo PASTOR, P. Attending Clinician Suman Duran Attending Clinician Santo Zuniga Attending Clinician Payers Payer Name Policy Type Policy Number Effective Date Expiration Date S danya UHC MEDICAREUHC xxxxxxxxx 2019 Reserve DUAL COMPLETE 00:00:00 Worship [id number] Problems Condition Condition Condition Status Onset Resolution Last Treating Co mments Source Name Details Category Date Date Treatment Clinician Date Acute Acute Disease Active [facility] cystitis cystitis 2- Method i with with 00:00: st hematuria hematuria 00 EAR PAIN/ Diagnosis Active 2018-02-26 Memoria COGESTION 1-12 11:25:00 l EAR 00:00: [employer] PAIN/ 00 COGESTION Active 12/08/2017 [facility] BLEEDING, Diagnosis Active 2017-01-08 Memoria 3WKS 2-11 05:23:00 l 00:00: [place] BLEEDING, 00 3WKS Active 01/07/2017 [facility] Diabetes Diabetes [facility] Asthma Asthma Problem [facility] High blood High blood Problem Active [facility] pressure pressure [facility] Uterine Uterine Problem Active [facility] bleeding bleeding [facility] Left Left Problem Active [facility] ovarian ovarian [facility] - cyst cyst [facility] l [facility] Obesity Obesity Problem Active [facility] (BMI (BMI Lukes - 30-39.9) 30-39.9) Memori a l [facility] Difficulty Difficulty Problem Active [facility] sleeping sleeping [facility] Anxiety Anxiety Problem [facility] Dietary Dietary Problem Active [facility] surveillan surveillan Virginie kes - ce and ce and Memoria counseling counseling l [facility] Right Right Problem Active [facility] upper upper Lukes - quadrant quadrant Memori a pain pain l [facility] Ingrown Ingrown Problem Active [facility] toenail of toenail of Virginie kes - right foot right foot Me moria l [facility] Sinus Sinus Problem Active [facility] problem problem [facility] Hyperchole Hyperchole Problem Active C [facility] sterolemia sterolemia Virginie kes - [facility]oria [facility] Uncontroll Uncontroll Problem Active C HI [facility] ed type 2 ed type 2 Luke s - diabetes diabetes Memori a mellitus mellitus l with with [facility] hyperglyce hyperglyce en t [facility] Seasonal Seasonal Problem Active [facility] allergies allergies [facility] - [facility] Migraine Migraine Problem Active [facility] Dizziness Dizziness Problem Active [facility] Depression Depression Problem Active C [facility] screening screening Luke s - [facility] Rash and Rash and Problem Active [facility] t nonspecifi nonspecifi Virginie kes - c skin c skin Memoria eruption eruption l [facility] Allergic Allergic Problem Active [facility] rhinitis, rhinitis, Luke s - unspecifie unspecifie Me moria d d l seasonalit seasonalit Ou tpati y, y, ent unspecifie unspecifie Cl inics d trigger d trigger Frequent Frequent Problem Active [facility] headaches headaches Luke s - [facility] Epigastric Epigastric Problem Active C [facility] pain pain [facility] Generalize Generalize Problem Active C [facility] d weakness d weakness Virginie kes - Memoria [facility] Shortness Shortness Problem Active [facility] of breath of breath Luke s - Memoria [facility] Pain of Pain of Problem Active [facility] upper upper Lukes - abdomen abdomen Memoria [facility] Constipati Constipati Problem Active C [facility] on, on, Lukes - unspecifie unspecifie Me moria d d l constipati constipati Ou tpati on type on type ent Clinics Morbid Morbid Problem Active [facility] obesity obesity [facility] Unspecifie Problem 2018-03-16 2018-03-16 d otitis 12 19:35:24 19:35:24 Pear jenna externa, 06:00: d right ear Unspecifie 00 d otitis externa, right ear 12/08/2017 03/16/2018 [facility] Cough Problem 2018-03-16 2018-03-16 M H 12 19:35:24 19:35:24 Pearla n Cough 06:00: d 00 12/08/2017 03/16/2018 [facility] Allergies, Adverse Reactions, Alerts Allergy Allergy Status Severity Reaction(s) Onset Inactive Treating Comm ents Source Name Type Date Date Clinician ibuprofe DA [facility] [place] Ibuprofe Propensi Active Rash [place] ty to 2-08 Methodi adverse 00:00: st reaction 00 s to drug ibuprofe DA Active [facility] 2[facility] [place] Motrin Motrin Active Memoria l [facility] l Social History Social Habit Start Date Stop Date Quantity Comments Source Sex Assigned At [facility] ethodist Alcohol intake 2019-10-12 2019-10-12 Current [facility] thodist 00:00:00 00:00:00 non-drinker of alcohol (finding) Smoking Status Start Date Stop Date Source Never smoker Reserve Methodis t Medications Ordered Filled Start Stop Current Ordering Indication Dosage Frequency Signature Comments Components Source Medication Medication Date Date Medication? Clinician (SIG) Name Name HYDROXYZINE 2018-11 Yes 50mg Q.[id number] Take 50 mg [facility] HCL ORAL -17 [id number] by mouth 3 Methodi 15:33: 3D (three) st 01 times a day as needed (for anxiety). For anxiety glyBURIDE 2018-11 Yes 5mg QD Take 5 mg Luke ston (DIABETA) 5 -17 by mouth Meth erlinda MG tablet 15:33: daily with st 01 breakfast. amoxicillin 2018-11 Yes 500mg Q.[id number] Take 500 [facility] (AMOXIL) 1-17 [id number] mg by Meth erlinda 500 MG 15:33: 3D mouth 3 st capsule 01 (three) times a day. busPIRone 2018-11 Yes 7.5mg Q.5D Take 7.5 Luke [facility] (BUSPAR) 1-17 mg by Methodi 7.5 MG 15:33: mouth 2 st tablet 01 (two) times a day as needed (for anxiety). 2018-11- No 1{tbl} QD Take 1 [place] vit,calc76- -17 -17 tablet by Tn thodi iron-folic 02:32: 00:[address] 29 [...] Memoria 00 :00 l Outpati ent Clinics [facility] 2019- No Klarissa 1 tablet C HI [...] 00:00: Memoria 00 l Outpati ent Clinics [facility] Yes Klarissa [address] ne [...] once before bedtime. insulin Yes Use as [facility] syringes, 01-09 directed Method i disposable, 00:00: st 1 mL 00 syringe tramadol No 50 mg, MH hydrochlori 12-09 Route: PO, Pe alanis de 50 MG 05:51: Drug form: d Oral Tablet 00 TAB, ONCE, Dosing Weight 107.273, kg, Priority: STAT, Start date: 12/08/17 23:51:00 PATROL CONDUCTOR, Stop date: 12/08/17 23:51:00 PATROL CONDUCTOR 200 ACTUAT Yes 2 puff, MH Albuterol [...] rlan / 03:31: Duoneb) d Ipratropium 00 [place] 0.167 MG/ML Inhalant Solution [DuoNeb] Atorvastati Atorvastati Yes Klarissa [address] n Calcium n Calcium Millender [facility]ics Amoxicillin Amoxicillin Yes Klarissa [address] [facility] Vitamin D Vitamin D Yes Klarissa [address] [facility] Orphenadrin Orphenadrin Yes Klarissa as [facility] e Citrate e Citrate Millender directed [facility] - ER ER [facility] Lisinopril Lisinopril Yes Klarissa [address] [facility] GlipiZIDE GlipiZIDE Yes Klarissa [address] XL XL Millender with food [facility] Loratadine Loratadine Yes Klarissa [address] [facility] Immunizations Ordered Immunization Filled Immunization Date Status Commen ts Source Name Name LUCIA CURRAN 2018-01-09 [facility] 00:00:00 Worship Vital Signs Vital Name Observation Time Observation Value Comments Source Systolic blood 2019-10-13 11:49:21 105 mm[Hg] Gustavo n Worship pressure Diastolic blood 2019-10-13 11:49:21 62 mm[Hg] Dimitrios on Worship pressure Heart rate 2019-10-13 11:49:21 74 /min [facility] Body temperature 2019-10-13 11:49:21 36.78 Miladis Matias ton Worship Respiratory rate 2019-10-13 11:49:21 18 /min Matias tsai Worship Oxygen saturation in 2019-10-13 11:49:21 98 /min [facility] Arterial blood by Pulse oximetry Body height 2019-10-12 22:57:00 162.6 cm [facility] Body weight 2019-10-12 22:57:00 102.059 kg [facility] BMI 2019-10-12 22:57:00 38.62 kg/m2 [facility] Respitory Rate 2017-12-09 05:54:00 MH [place] Systolic (mm Hg) 2017-12-09 05:54:00 MH [place] Diastolic (mm Hg) 2017-12-09 05:54:00 MH [place] Heart Rate 2017-12-09 05:54:00 MH Heather and Respitory Rate 2017-12-09 03:52:00 MH [place] Weight 2017-12-09 02:25:00 MH Heather and Heart Rate 2017-12-09 02:25:00 MH [place] and Systolic (mm Hg) 2017-12-09 02:25:00 MH [place] Diastolic (mm Hg) 2017-12-09 02:25:00 MH [place] Respitory Rate 2017-12-09 02:25:00 MH [place] Temperature Oral (F) 2017-12-09 02:25:00 98.9 F [facility] 2017-01-08 03:10:00 MH Heather and BMI Calculated 2017-01-08 03:10:00 MH [place] Height 2017-01-08 03:10:00 162.56 cm MH Heather and Systolic (mm Hg) 2017-01-08 03:10:00 MH [place] Diastolic (mm Hg) 2017-01-08 03:10:00 [facility] Temperature Oral (F) 2017-01-08 03:10:00 98 F MH [place] Heart Rate 2017-01-08 03:10:00 MH Heather and Respitory Rate 2017-01-08 03:10:00 MH [place] Procedures Procedure Date / Time Performing Clinician Source Performed POC GLUCOSE 2019-10-13 11:48:00 Yuval Blanchard ethodist D-DIMER 2019-10-13 10:24:00 Ruben Cr ethodist HEMOGLOBIN A1C 2019-10-13 10:24:00 Ruben Cr ethodist THYROID STIMULATING 2019-10-13 09:54:00 Ruben Cr on Worship HORMONE TTE COMPLETE, WO CONTRAST, 2019-10-13 09:15:00 Danita Neville Worship W DOPPLER ([id number]) Linda POC GLUCOSE 2019-10-13 07:17:00 Yuval Blanchard ethodist TROPONIN 2019-10-13 07:00:00 Shmuel Grijalva thodist ECG 12-LEAD 2019-10-13 04:48:47 Ruben Cr ethodist LIPID PANEL 2019-10-13 04:30:00 Danita Neville HEMOGLOBIN A1C 2019-10-13 04:30:00 Danita Neville HC COMPLETE BLD COUNT 2019-10-13 04:30:00 Danita Neville Worship W/AUTO DIFF Linda COMPREHENSIVE METABOLIC 2019-10-13 04:30:00 Danita Neville Worship PANEL Linda MAGNESIUM LEVEL 2019-10-13 04:30:00 Danita Neville Meth odmarycarmen Linda PHOSPHORUS LEVEL 2019-10-13 04:30:00 Danita Neville Met hodist Linda IONIZED CALCIUM 2019-10-13 04:30:00 Danita Neville Meth odist Linda TROPONIN 2019-10-13 04:30:00 Shmuel Grijalva Me thodist ESTIMATED GFR 2019-10-13 04:30:00 Danita Neville POC GLUCOSE 2019-10-13 02:18:00 Yuval Blanchard M ethodist CT ANGIOGRAM PE CHEST 2019-10-13 01:18:11 Shmuel Grijalva URINE CULTURE 2019-10-13 00:16:00 Shmuel Grijalva Tn thodist HCG QUALITATIVE, URINE 2019-10-13 00:16:00 Shmuel Grijalva Worship SCREEN URINALYSIS SCREEN AND 2019-10-13 00:16:00 Shmuel Grijalva MICROSCOPY, WITH REFLEX TO CULTURE XR CHEST 1 VW PORTABLE 2019-10-12 23:43:11 Shmuel Grijalva Worship HC COMPLETE BLD COUNT 2019-10-12 23:00:00 Shmuel Grijalva Worship W/AUTO DIFF PROTHROMBIN TIME WITH INR 2019-10-12 23:00:00 Shmuel Grijalva PARTIAL THROMBOPLASTIN 2019-10-12 23:00:00 Shmuel Grijalva Worship TIME (PTT) COMPREHENSIVE METABOLIC 2019-10-12 23:00:00 Shmuel Grijalva Worship PANEL CREATINE KINASE, TOTAL 2019-10-12 23:00:00 Shmuel Grijalva Worship (CPK) TROPONIN 2019-10-12 23:00:00 Shmuel Grijalva Me thodist LIPASE LEVEL 2019-10-12 23:00:00 Shmuel Grijalva Me thodist B NATRIURETIC PEPTIDE 2019-10-12 23:00:00 Shmuel Grijalva ton Worship ESTIMATED GFR 2019-10-12 23:00:00 Shmuel Grijalva Me thodist ECG ED PRELIMINARY 2019-10-12 22:58:15 Shmuel Grijalva Worship INTERPRETATION ECG 12-LEAD 2019-10-12 22:54:34 Shmuel Grijalva Me thodist Plan of Care Planned Activity Planned Date Details Comments Source Future Scheduled 2020-06-27 INFLUENZA VACCINE [place] [facility] Test 00:00:00 [code = INFLUENZA VACCINE] Future Scheduled 2008 Screening for [facility] Me thodist Test 00:00:00 malignant neoplasm of cervix (procedure) [code = 180169419] Future Scheduled 1997 DIABETIC FOOT EXAM [place] [facility] Test 00:00:00 [code = DIABETIC FOOT EXAM] Future Scheduled 1997 URINE MICROALBUMIN [place] [facility] Test 00:00:00 [code = URINE MICROALBUMIN] Future Scheduled 1987 DIABETIC RETINAL EYE [facility] Worship Test 00:00:00 EXAM [code = DIABETIC RETINAL EYE EXAM] Encounters Start End Encounter Admission Attending Care Care Encounter Source Date/Time Date/Time Type Type Clinicians Facility Department ID 2020-04-29 2020-04-29 Urgent Provider, [facility] [id number] 15:24:50 16:27:27 Care [facility] [id number] Care [place] [id number] [facility] [id number] nal [facility] Office Building One 2020-04-22 2020-04-22 Transition Mahsa Thomas [id number] 00:00:00 00:00:00 of Care Nedra Mays [id number] [place] [id number] [id number] 2020-04-18 2020-04-19 Emergency Heike, [facility] [id number] 21:59:20 00:35:00 Janet Shetty [id number] [place] 4.2.7.2.686 [place] [id number] 2020-04-18 2020-04-18 Orders Doctor JACINDA [id number] 00:00:00 00:00:00 Only Unassigned, MARZENA [id number] [place] [facility] 4.2.7.2.686 [id number] 2020-04-17 2020-04-17 Telephone Antonio [place] [id number] 00:00:00 [facility] [id number] [place] 4.2.7.2.686 Professio [id number] nal 044 Office [address] One 2020-04-17 2020-04-17 Patient Mahsa Rodriguez [id number] 00:00:00 00:00:00 Outreach Rita Mays [id number] [place] 4.2.7.2.686 [id number] 2020-04-16 2020-04-16 Urgent Pob1, Acute [facility] [id number] 11:11:33 11:31:33 [facility] 350.1.13.10 [place] 4.2.7.2.686 Professio [id number] nal 044 Office [address] One 2019-07-01 2019-07-01 [facility] [id number] [facility] 18:18:00 18:18:00 [facility] 2019-06-28 2019-06-28 [facility] [id number] 10:00:00 10:00:00 [facility] 2019-06-19 2019-06-19 [facility] [id number] 15:21:00 15:21:00 [facility] 2019-06-11 2019-06-11 [facility] [id number] 08:10:00 08:10:00 [facility] 2019-06-10 2019-06-10 [facility] [id number] 12:16:00 12:16:[address] [facility] Medicine Medicine Outpati ent Clinics 2019-06-07 2019-06-07 [facility] [id number] 15:40:00 15:40:[address] [facility] Medicine Outpati ent Clinics 2019-06-06 2019-06-06 [facility] [id number] 08:48:00 08:48:00 t [facility] Medicine Medicine Outpati ent Clinics 2019-06-04 2019-06-04 [facility] [id number] 16:20:00 16:20:[address] [facility] Medicine l Medicine Outpati ent Clinics 2019-05-31 2019-05-31 [facility] [id number] 10:20:00 10:20:00 t [facility] Medicine Medicine Outpati ent Clinics 2019-05-24 2019-05-24 [facility] [id number] 11:52:00 11:52:00 t [facility] Medicine Medicine Outpati ent Clinics 2019-05-24 2019-05-24 [facility] [id number] 11:00:00 11:00:00 t [facility] Medicine Medicine Outpati ent Clinics 2019-05-13 2019-05-13 [facility] [id number] 08:12:00 08:12:[address] [facility] Medicine Medicine Outpati ent Clinics 2019-05-02 2019-05-02 [facility] [id number] 09:40:00 09:40:[address] [facility] Medicine Outpati ent Clinics 2017-12-09 2017-12-09 Emergency [facility] [id number] 02:14:00 05:57:[address] 2017-12-08 2017-12-08 Outpatient Roger[facility] [id number] 20:14:00 23:57:00 Umm [place] 2017-01-08 2017-01-08 Emergency O[facility] [id number] 02:47:00 06:43:00 Chavez Avery [facility] 2017-01-07 2017-01-08 Outpatient Antolin Zuniga [facility] [id number] 20:47:00 00:43:00 Santo 01 Results Test Description Test Time Test Comments Results Result Comments Source Echocardiogram complete w contrast and 3D if needed 20:23:00 Test Item Value Reference Range Interpretation Comme nts Velocity Ratio (V1/V2) (test code = 0.90 m/s 4689) IVS,d (test code = 3908603636) 0.96 cm EF (test code = 4097883139) 77.26 % LVPWD,d (test code = 3499718276) 0.88 cm AoV Mean PG (test code = 2021509505) 4.86 mmHg AV LVOT peak gradient (test code = 6.26 mmHg 1127637458) MV mean gradient (test code = 1.56 mmHg 1320446750) MV valve area p 1/2 method (test code 3.25 cm2 = 1577484911) E/A ratio (test code = 8155655412) 1.44 E wave decelartion time (test code = 233.46 msec 6998357190) LVOT Diam,S (test code = 5527287941) 2.11 cm LVOT area (test code = 9659274495) 3.49 cm2 LVOT Vmax (test code = 5206396005) 1.25 m/s LVOT VTI (test code = 8612234890) 0.23 m AoV Peak PG (test code = 8749717941) 7.72 mmHg MV Peak E Colton (test code = 7160653517) 1.04 m/s MV stenosis pressure 1/2 time (test 67.70 ms code = 7426361912) MV Peak A [place] (test code = 4963057456) 0.72 m/s Ao Root Diameter (test code = 2.80 cm 5822203701) AoV Area, Vmax (test code = 3.15 cm2 9755718976) AoV Area, VTI (test code = 4323285898) 3.02 cm2 AoV Vmax (test code = 8290973680) 1.39 m/s IVS/LVPW,2D (test code = 3735695593) 1.08 Left Atrium Dimension Anterior (test 4.26 cm code = 3863606700) LV,d (test code = 5722527388) 4.68 cm LV,s (test code = 0743533205) 2.53 cm MV E A ratio (test code = 2417709263) 1.43 MR peak grad (test code = 3996109861) 3.89 mmHg Ao Root Diameter (test code = 2.80 cm 4465220993) LV SYS VOL (test code = 6982960164) 23.05 ml LV LEDESMA VOL (test code = 9979540206) 101.38 ml LV SV Teich 2D (test code = 78.34 ml 0784628009) LV Vol s Teich PSAX (test code = 23.05 ml 7572377385) MV Vmax (test code = 2898510270) 0.99 m MV VTI Tips (test code = 9014532444) 0.26 m AoV Vmn (test code = 7135665444) 1.07 LV FS Cube 2D (test code = 1095317596) 45.90 LV FS Teich 2D (test code = 45.90 3755262534) LVPW d Mmode (test code = 6616343696) 0.89 AoV VTI (test code = 6224444797) 0.26 m LA Area d A4C (test code = 1220017782) 16.85 cm2 LV EF,2D (test code = 5241994355) 84.16 % MV AE ratio (test code = 4602370655) 0.70 LVOT Vmn (test code = 5293697100) 0.82 Aov area Vmn (test code = 9663094505) 2.68 cm2 LA Vol d MOD A4C (test code = 39.58 ml 8382501423) LVOT mean grad (test code = 3.17 mmHg 0902198635) MAX Pred HR (test code = 2651791916) 187.25 85 of MPHR (test code = 5969349535) 159.17 Calc MPHR (test code = 4345760292) 187.25 bpm LV SV Cube 2D (test code = 1274065867) 86.31 ml LV vol d cube 2D (test code = 102.55 ml 3979659647) LV vol s cube 2D (test code = 16.24 ml 1370526078) MV Decel slope (test code = 4.44 m/s2 6512524248) Pred Exer Dur R1 (test code = 10.85 7161932032) Pred METS R1 (test code = 2159713350) 10.44 IRASEMA (test code = IRASEMA) Normal left ventricular size and function with an EF~ 55% to 60%.Normal right ventricular size and function.Structurally normal cardiac valves.Left atrial enlargement. Normal pericardium with no effusion.Grade 1 diastolic dysfunction. Sergio MethodmarycarmenECG 12 dmji2007-05-24 19:31:06 Test Item Value Reference Range Interpretation [...] of 13-OCT-2019 04:48,-No significant change was found- Sergio LondonistPOC [id number] 11:54:47 Test Item Value Reference Range Interpretation Comments POC glucose (test code 139 mg/dL 65-99 H RN No tifiedMeter ID: = [id number]) [id number] tor: Iwsuzettea Emem Lab Interpretation Abnormal (test code = 85423-3) Sergio MethodistHemoglobin [id number] 11:06:00 Test Item Value Reference Range Interpretation Comments Hemoglobin A1C (test 6.3 % 4-5.6 H HbA1c c utoffs for code = 31231-7) diagnosing diabetes:4.0% - 5.6% = normal5.7% - 6.4% = increased risk for diabetes (prediabetes)9> =6.5% = daoyctly5Sazi s for glycemic contro l (ADA 2016)< 7.0% Ta rget for non adults with zoraida betes. More or less stringent targe ts may be appropriate for individual ayaz ents. <7.5% Target for Children and adolescents wit h type 1 diabetes. Lab Interpretation (test Abnormal code = 91400-0) Sergio BgdqxqukmW-[id number] 11:01:33 Test Item Value Reference Range Interpretation Comments D-dimer (test code = <0.27 0-0.4 Units a re ug/ml Fibrinogen 69277-0) Equivalent Unit .When combined with l ow [...] states, sepsis, and malignancies. Sergio FerreiraThyroid stimulating [id number] 10:28:06 Test Item Value Reference Range Interpretation Comments TSH (test code = 3016-3) 2.31 0.27- 4.20 uIU/mL Sergio FerreiraFvvvflgldZxohzmmg6199-93-96 07:42:04 Test Item Value Reference Range Interpretation Comments Troponin (test code = <0.006 0-0.04 Gustavo Ferreira 92880-2) Laboratories ch anged methodology eff ective: 04/02/2019 at 10: 00 amThe new method has a 99th percentile cuto ff of 0.040 ng/mL Sergio FerreiraComprehensive metabolic [id number] 06:11:09 Test Item Value Reference Range Interpretation Comments Sodium (test code = 2951-2) 137 135- 148 mEq/L Potassium (test code = 2823-3) 3.5 3.5- 5.0 mEq/L Chloride (test code = 2074-0) 102 98- 112 mEq/L CO2 (test code = 2027-9) 22 24- 31 mEq/L L Anion gap (test code = 45629-8) 13@ANIO 7- 15 mEq/L BUN (test code = 3094-0) 10 mg/dL 6-20 Creatinine (test code = 2160-0) 0.55 mg/dL 0.5-0.9 Glucose (test code = 2345-7) 114 mg/dL 65-99 H Calcium (test code = 70324-3) 8.9 mg/dL 8.3-10.2 Protein (test code = [...] 1974-12) Lab Interpretation (test code = Abnormal 67873-9) Reserve MethodistLipid [id number] 06:11:09 Test Item Value Reference Interpretation Comments Range Cholesterol (test 116 mg/dL 0-199 code = 2093-3) Triglycerides (test 65 mg/dL 0-149 code = 2571-8) HDL cholesterol 31 mg/dL 40-61385 L (test code = 2084-9) LDL cholesterol 84 mg/dL 0-99 (test code = 2088-1) Lipid panel See below Total Cholester ol (mg/dL) interpretation (test < 200 code = 01143-1) Desirable 200-239 Borderline -high >=240 Hi gh [...] mg/dL) Lab Interpretation Abnormal (test code = 99456-6) Sergio MethodistMagnesium [id number] 06:11:09 Test Item Value Reference Range Interpretation Comments Magnesium (test code = 23394-7) 2.0 mg/dL 1.6-2.6 [place] MethodistPhosphorus [id number] 06:11:09 Test Item Value Reference Range Interpretation Comments Phosphorus (test code = 2777-1) 3.9 mg/dL 2.4-4.5 [facility] MethodistEstimated [id number] 06:11:08 Test Item Value Reference Range Interpretation Comments Estimated GFR (test >=90 mL/min/1.73 m2 Caterg ory Units code = 5488) InterpretationG 1 >=90 Normal or highG2 60-89 Mildly ijtznvaxzB5t 45-59 Mildly to mode rately lsepfkaczH5o 30-44 Moderately to severely decreasedG4 15-29 Severely decre asedG5 <15 Kidn ey failureThe eGFR was calculated stu encinas the Chronic Kidney Disease Epidemiology Co llaboration (CKD-EPI) equat ion. Interpretation is based on recommendations of the National Kidney Foundation-Kidn ey Disease Outcomes Qualit y Initiative (NKF-KDOQI) pub lished in 2014. Sergio MethodistIonized [id number] 05:53:07 Test Item Value Reference Range Interpretation Comments pH (test code = 2753-2) 7.42 Ionized calcium (test code = 1.04 mmol/L 1.11-1.32 L ) Lab Interpretation (test code = Abnormal 77058-4) Sergio MethodistCBC with platelet and ixjhvfvwwctm0999-22-84 05:49:31 Test Item Value Reference Range Interpretation Comments WBC (test code = 68759-4) 10.6 4.5- 11.0 k/uL RBC (test code = 24077-7) 3.80 m/uL 4.2-5.5 L HGB (test code = 718-7) 12.1 g/dL 12-16 HCT (test code = 4544-3) 37.1 % 37-47 MCV (test code = 787-2) 97.6 fL 82-100 MCH (test code = 785-6) 31.8 pg 27-34 MCHC (test code = 786-4) 32.6 g/dL 31-37 RDW - SD (test code = 34016-5) 46.0 fL 37-55 MPV (test code = 61787-6) 10.1 fL 6.9-11 Platelet count (test code = 266 K/uL 150-400 40877-3) Nucleated RBC (test code = 05620-6) 0.00 /100 WBC Neutrophils (test code = 48588-8) 55.6 % 39-69 Lymphocytes (test code = 35347-3) 37.2 % 25-45 Monocytes (test code = 59254-2) 5.6 % 0-10 Eosinophils (test code = 39600-2) 1.0 % 0-5 Basophils (test code = 84525-7) 0.3 % 0-1 Immature granulocytes (test code = 0.3 % 0-1 52727-1) Lab Interpretation (test code = Abnormal 79484-6) [facility] Angiogram Pe [id number] 01:23:56Hm Interface, Radiology Results - 10/13/2019 1:26 [...] suspicious osseous lesions. Other: None.IMPRESSION:1.No acute pulmonary embolus.[facility]-[id number] MethodistUrine [id number] 01:05:37 Test Item Value Reference Range Interpretation Comments Urine culture (test SEE COMMENT Bacteriu gabby screen code = 0024177) negative. [facility] MethodistUrinalysis screen and microscopy, with reflex to culture 2019-10-13 01:05:35 Test Item Value Reference Range Interpretation Comments Specimen site (test code Clean catch = 7823589) Color, UA (test code = Yellow 5778-6) Appearance, UA (test Clear code = 5767-9) Specific gravity, UA 1.019 1.001-1.030 (test code = 5811-5) pH, UA (test code = 6.0 5.0-9.0 5803-2) Protein, UA (test code = Negative Negative 43767-0) Glucose, UA (test code = Negative Negative 40046-5) Ketones, UA (test code = Negative Negative 2514-8) Bilirubin, UA (test code Negative Negative = 5770-3) Blood, UA (test code = Small Negative A Resul ts confirmed, 5794-3) test repeated Nitrite, UA (test code = Negative Negative 5802-4) Urobilinogen, UA (test <2.0 <2.0 E.U./dL code = 56613-0) Leukocyte esterase, UA Negative Negative (test code = 5799-2) Epithelial cells, UA <1 /HPF (test code = 5787-7) Round epithelial cells, <1 0- 5 /HPF UA (test code = 20820-1) WBC, UA (test code = 3 0- 4 /HPF 5821-4) RBC, UA (test code = 2 0- 5 /HPF 06621-3) Bacteria, UA (test code None seen None seen = 97511-4) Yeast, UA (test code = None seen 65991-3) Yeast with pseudohyphae, None seen UA (test code = 62358-3) Lab Interpretation (test Abnormal code = 58453-5) Sergio LondonisthCG qualitative, urine [id number] 00:44:42 Test Item Value Reference Range Interpretation Comments hCG qualitative, Negative Sensitivity of HCG test: urine (test code = 25 mIU/ml 2106-3) [facility] MethodistCreatine kinase, total (CPK)2019-10-12 23:58:11 Test Item Value Reference Range Interpretation Comments Creatine kinase (test code = 2157-6) 74 U/L 26-192 Reserve MethodistLipase [id number] 23:58:11 Test Item Value Reference Range Interpretation Comments Lipase (test code = 3040-3) 23 U/L 13-60 Reserve MethodistXR Chest 1 Vw [id number] 23:55:53Hm Interface, Radiology Results 10/12/2019 11:58 PM CSTEXAMINATION: XR CHEST 1 VW PORTABLECLINICAL HISTORY: chest painCOMPARISON: Chest radiograph 01/04/2018IMPRESSION:No pneumothorax, pleural effusion or focal consolidation.Normal cardiomediastinal silhouette.No acute osseous abnormality.H -UR67WVRFLucgpke MethodistB natriuretic gkunlci1502-30-48 23:51:20 Test Item Value Reference Range Interpretation Comments BNP (test code = 97120-5) <3 0-100 Reserve MethodistPartial thromboplastin time, [id number] 23:34:18 Test Item Value Reference Range Interpretation Comments PTT (test code = 32.1 23.0- 36.0 sec PTT thera peutic range for 3173-2) unfractionated heparin is61.0-112.0 se conds which corresponds to Anti-Xa0.3-0.7 U/ml. Reserve MethodistProthrombin time with [id number] 23:33:28 Test Item Value Reference Range Interpretation Comments Prothrombin time (test 13.9 11.5- 14.5 sec code = 5902-2) INR (test code = 1.1 The Interna tional 02648-7) Normalized Rati o (INR) is a therapeutic m onitoring tool for patien ts who are stable on oral anticoagulant t herapy. An INR of 2.0-3.0 is suggested for d eep vein thrombosis/pulm onary embolism. [facility] ED Preliminary Interpretation - Not an [id number] 22:58:15Shmuel Grijalva MD 10/13/2019 5:41 [facility] Preliminary Interpretation - Not an OrderPerformed by: Shmuel Grijalva MDAuthorized by: hSmuel Grijalva MD ECG reviewed by ED Physician in theabsence of a director advanced: yes Previous ECG: Previous ECG: UnavailableInterpretation: Interpretation: non-specific Rate: ECG rate: 99 ECG rate assessment: normal Rhythm: Rhythm: sinus rhythm Ectopy: Ectopy: none QRS: QRS axis: Normal QRS intervals: NormalConduction: Conduction: normal ST segments: ST segments: Non-specificT waves: T waves: non-specific and inverted Comm ents: Normal sinus rhythm, no evidence of acute ischemic changesSergio Ferreira
[2020-04-30] MEDS ORDERED: WATER FOR INJ,STERILE 10 ML ONE (11:05)
[2020-04-30] MEDS ORDERED: CEFTRIAXONE 1000 MG/VIAL ONE (11:05)
--- NOTE | 2020-04-30 11:17 | ER ---
Nurse's Notes [facility] Name: Mckenna Haney Age: 35 yrs Sex: Female : 1985 Arrival Date: 04/30/2020 Time: 09:58 Bed 17 Private MD: Diagnosis: Urinary tract infection, site not specified Presentation: 04/30 10:18 Chief complaint: Patient states: lower abd pain since yesterday, went to doctor iw yesterday was diagnosed with UTI and started on antibiotics, cephalexin, but now her legs are cramping and her back is hurting and she feels weak. Coronavirus screen: Proceed with normal triage. Patient denies a cough. Patient denies shortness of breath or difficulty breathing. Patient denies measured and/or subjective temperature greater than 100.4F prior to today's visit. Patient denies travel on a cruise ship or to a country the [facility] currently lists as an affected area. Patient denies contact with known and/or suspected case of COVID-19. Ebola Screen: Patient negative for fever greater than or equal to 101.5 degrees Fahrenheit, and additional compatible Ebola Virus Disease symptoms Patient denies exposure to infectious person. Patient denies travel to an Ebola-affected area in the 21 days before illness onset. No symptoms or risks identified at this time. Initial Sepsis Screen: Does the patient meet any 2 criteria? No. Patient's initial sepsis screen is negative. Does the patient have a suspected source of infection? No. Patient's initial sepsis screen is negative. Risk Assessment: Do you want to hurt yourself or someone else? Patient reports no desire to harm self or others. Onset of symptoms was April 29, 2020. 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 04/23/2020 iw Historical: - Allergies: 10:25 Ibuprofen (Hives); iw - Home Meds: 10:25 buspirone 7.5 mg Oral tab 1 tab 2 times per day [Active]; azelastine 137 mcg (0.1 %) iw nasal spra 2 sprays 2 times per day [Active]; Esgic 50-325-40 mg Oral cap as needed [Active]; cephalexin 500 mg Oral cap 1 cap every 12 hours [Active]; docusate sodium 100 mg Oral tab 2 times per day [Active]; glipizide 5 mg Oral tab 1 tab once daily [Active]; lisinopril 5 mg Oral tab 1 tab once daily [Active]; lubiprostone oral oral 1 cap after meals [Active]; medroxyprogesterone 10 mg Oral tab [Active]; montelukast 10 mg oral tab 1 tab once daily [Active]; ondansetron HCl 4 mg Oral tab 2 tabs every 8 hours [Active]; sennosides 8.6 mg oral tab 2 tabs once daily [Active]; simethicone 125 mg Oral chew daily [Active]; tramadol 50 mg Oral tab 1 tab as needed [Active]; - PMHx: 10:25 Diabetes - NIDDM; High Cholesterol; Hypertension; Ovarian cyst; iw - PSHx: 10:25 Cholecystectomy; iw - Immunization history:: Adult Immunizations unknown. - Social history:: Smoking status: Patient denies any tobacco usage or history of. Screenin:40 Abuse screen: Denies threats or abuse. Denies injuries from another. Nutritional ca1 screening: No deficits noted. Tuberculosis screening: No symptoms or risk factors identified. Fall Risk None identified. Assessment: 10:40 General: Appears in no apparent distress. comfortable, Behavior is calm, cooperative, ca1 appropriate for age. Pain: Complains of pain in suprapubic area, right lower quadrant and left lower quadrant Pain radiates to low back area Pain currently is 6 out of 10 on a pain scale. Quality of pain is described as pressure, Pain began 1 day ago. Is intermittent. Neuro: Level of Consciousness is awake, alert, obeys commands, Oriented to person, place, time, situation, Appropriate for age. Cardiovascular: Heart tones S1 S2 present Capillary refill < 3 seconds Patient's skin is warm and dry. Respiratory: Airway is patent Respiratory effort is even, unlabored, Respiratory pattern is regular, symmetrical, Breath sounds are clear bilaterally. GI: Abdomen is round non-distended, Bowel sounds present X 4 quads. Abd is soft and non tender X 4 quads. : Urine is cloudy, Reports urgency, urinary frequency, Denies burning with urination. EENT: No signs and/or symptoms were reported regarding the EENT system. Derm: Skin is intact, is healthy with good turgor, Skin is pink, warm \T\ dry. Musculoskeletal: Circulation, motion, and sensation intact. Capillary refill < 3 seconds. 11:20 Reassessment: Urine Culture sent to lab . aa5 11:29 Reassessment: Patient is alert, oriented x 3, equal unlabored respirations, skin aa5 warm/dry/pink. Vital Signs: 10:18 BP 124 / 76; Pulse 86; Resp 16; Temp 99.1; Pulse Ox 100% on R/A; Weight 103.42 kg; iw Height 5 ft. 4 in. (162.56 cm); Pain 9/10; 10:18 Body Mass Index 39.14 (103.42 kg, 162.56 cm) iw ED Course: 09:58 Patient arrived in ED. ag5 10:02 Magdi Falcon PA is PHCP. [facility] 10:02 David Gabriel MD is Attending Physician. [facility] 10:20 Triage completed. iw 10:25 Arm band placed on. iw 10:40 Kiara Meehan RN is Primary Nurse. ca1 10:40 Patient has correct armband on for positive identification. Bed in low position. Call ca1 light in reach. Side rails up X 1. Pulse ox on. NIBP on. 10:40 No provider procedures requiring assistance completed. Patient did not have IV access ca1 during this emergency room visit. Administered Medications: 11:03 Drug: Rocephin (cefTRIAXone) 1 grams Route: IM; Site: right gluteus; ca1 Outcome: 11:16 Discharge ordered by . [facility] 11:28 Discharged to home ambulatory. aa5 11:28 Condition: stable 11:28 Discharge instructions given to patient, Instructed on discharge instructions, follow up and referral plans. Demonstrated understanding of instructions, follow-up care, Pt instructed to continue cephalexin per LILIANA. 11:29 Patient left the ED. aa5 Signatures: Magdi Falcon PA PA jmm Williams, Irene, RN RN iw Calderon, Audri, RN RN aa5 Kiara Meehan RN RN Ke Mahoney ag5
--- NOTE | 2020-04-30 11:18 | EDPHYS ---
Physician Documentation [facility] Name: Mckenna Haney Age: 35 yrs Sex: Female : 1985 Arrival Date: 04/30/2020 Time: 09:58 Bed 17 Private MD: ANTONIO Physician David Gabriel HPI: 04/30 10:33 This 35 yrs old Female presents to ER via Ambulatory with complaints of Pain jmm With Urination. 10:33 The patient presents with urinary symptoms. Onset: The symptoms/episode began/occurred jmm gradually, 2 day(s) ago. Modifying factors: The symptoms are alleviated by nothing, the symptoms are aggravated by nothing. Associated signs and symptoms: Pertinent positives: dysuria. Patient was prescribed cephalexin yesterday for UTI. Patient states she continues to have pain. Denies vomiting but complains of chills and back pain. . 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 iw Historical: - Allergies: 10:25 Ibuprofen (Hives); iw - Home Meds: 10:25 buspirone 7.5 mg Oral tab 1 tab 2 times per day [Active]; azelastine 137 mcg (0.1 %) iw nasal spra 2 sprays 2 times per day [Active]; Esgic 50-325-40 mg Oral cap as needed [Active]; cephalexin 500 mg Oral cap 1 cap every 12 hours [Active]; docusate sodium 100 mg Oral tab 2 times per day [Active]; glipizide 5 mg Oral tab 1 tab once daily [Active]; lisinopril 5 mg Oral tab 1 tab once daily [Active]; lubiprostone oral oral 1 cap after meals [Active]; medroxyprogesterone 10 mg Oral tab [Active]; montelukast 10 mg oral tab 1 tab once daily [Active]; ondansetron HCl 4 mg Oral tab 2 tabs every 8 hours [Active]; sennosides 8.6 mg oral tab 2 tabs once daily [Active]; simethicone 125 mg Oral chew daily [Active]; tramadol 50 mg Oral tab 1 tab as needed [Active]; - PMHx: 10:25 Diabetes - NIDDM; High Cholesterol; Hypertension; Ovarian cyst; iw - PSHx: 10:25 Cholecystectomy; iw - Immunization history:: Adult Immunizations unknown. - Social history:: Smoking status: Patient denies any tobacco usage or history of. ROS: 10:33 Cardiovascular: Negative for chest pain, palpitations, and edema, Respiratory: Negative jm for shortness of breath, cough, wheezing, and pleuritic chest pain, Abdomen/GI: Negative for abdominal pain, nausea, vomiting, diarrhea, and constipation. 10:33 Constitutional: Positive for chills. 10:33 : Positive for urinary symptoms. 10:33 All other systems are negative. Exam: 10:33 Constitutional: This is a well developed, well nourished patient who is awake, alert, jmm and in no acute distress. Head/Face: atraumatic. Eyes: EOMI, no conjunctival erythema appreciated ENT: Moist Mucus Membranes Neck: Trachea midline, Supple Chest/axilla: Normal chest wall appearance and motion. Cardiovascular: Regular rate and rhythm. No edema appreciated Respiratory: Normal respirations, no respiratory distress appreciated Abdomen/GI: Non distended, soft Back: Normal ROM Skin: General appearance color normal MS/ Extremity: Moves all extremities, no obvious deformities appreciated, no edema noted to the lower extremities Neuro: Awake and alert, normal gait Psych: Behavior is normal, Mood is normal, Patient is cooperative and pleasant Vital Signs: 10:18 BP 124 / 76; Pulse 86; Resp 16; Temp 99.1; Pulse Ox 100% on R/A; Weight 103.42 kg; iw Height 5 ft. 4 in. (162.56 cm); Pain 9/10; 10:18 Body Mass Index 39.14 (103.42 kg, 162.56 cm) iw MDM: 10:43 Patient medically screened. [facility] 11:16 Data reviewed: vital signs, nurses notes. Counseling: I had a detailed discussion with [facility] the patient and/or guardian regarding: the historical points, exam findings, and any diagnostic results supporting the discharge/admit diagnosis, the need for outpatient follow up, to return to the emergency department if symptoms worsen or persist or if there are any questions or concerns that arise at home. 04/30 10:45 Order name: Urine Dipstick--Ancillary (enter results) em1 04/30 10:45 Order name: Urine --Ancillary (enter results) em1 04/30 10:33 Order name: Urine Dipstick-Ancillary (obtain specimen); Complete Time: 10:44 gina 04/30 11:16 Order name: Urine Culture [facility] Administered Medications: 11:03 Drug: Rocephin (cefTRIAXone) 1 grams Route: IM; Site: right gluteus; ca1 Disposition: 11:38 Co-signature as Attending Physician, David Gabriel MD I agree with the assessment and kdr plan of care. Disposition: 04/30/20 11:16 Discharged to Home. Impression: Urinary tract infection, site not specified. - Condition is Stable. - Discharge Instructions: Urinary Tract Infection, Adult. - Medication Reconciliation Form, Thank You Letter, Antibiotic Education, Prescription Opioid Use form. - Follow up: Private Physician; When: 2 - 3 days; Reason: Recheck today's complaints, Continuance of care, Re-evaluation by your physician. - Notes: Continue taking cephalexin. Return to the ED if you develop fever, vomiting, worsening pain. Signatures: Dispatcher [employer] EDMS David Gabriel MD MD kdr Mickail, Joel, PA PA [facility] Eunice Pichardo, RN RN iw Emily Mathur RN RN aa5 Kiara Meehan RN RN ca1 Corrections: (The following items were deleted from the chart) 11:29 11:16 04/30/2020 11:16 Discharged to Home. Impression: Urinary tract infection, site aa5 not specified. Condition is Stable. Forms are Medication Reconciliation Form, Thank You Letter, Antibiotic Education, Prescription Opioid Use. Follow up: Private Physician; When: 2 - 3 days; Reason: Recheck today's complaints, Continuance of care, Re-evaluation by your physician. [facility]
--- OUTSIDE RECORDS SUMMARY | 2020-04-30 11:22 | XMS REPORT | Summary of Care ---
:1985 [address] [facility] - Health Address [address] [place] [address] Care Team Providers Name Role Phone Klarissa Delgado Flores Insurance Hmo GABI Alvarez Primary Care Provider Encounter Details Date Type Department Care Team Description 04/18/[address] [facility] Doctor Unassigned, No [address] [place] [address] [address] [place] [address] Allergies Active Allergy Reactions Severity Noted Date Comments Ibuprofen Rash 04/19/2017 documented as of this encounter (statuses as of 04/18/2020) Medications Medication Sig Dispensed Refills Start Date End Date Status sod xgacy-jeruwx-mwwuow Use 1 Bottle in 1 Each 0 [...] anovulation azelastine 137 mcg (0.1 Use 1 [place] in 30 mL 5 02/21/2020 Active %) [...] as of this encounter (statuses as of 04/18/2020) Active Problems Problem Noted Date Gas pain 04/16/2020 Constipation, unspecified constipation type 04/16/2020 Chronic idiopathic constipation 02/21/2020 Epistaxis 02/21/2020 Morbid obesity with body mass index of 40.0-49.9 01/02 Indigestion 07/25/2019 Overview: Added automatically from request for linda brian [id number] Epigastric pain 07/25/2019 Overview: Added automatically from request for linda brian [id number] Type 2 diabetes mellitus with complication, without [...] as of this encounter (statuses as of 04/18/2020) Immunizations Name Administration Dates Next Due Influenza [...] file Travel History Travel Start Travel End [place] 04/06/2020 04/11/2020 COVID-19 Exposure Response Date Recorded [...] Visit Otolaryngology Jorge L Willett MD [address] [place] [address] [phone] 04/30/2020 Telemedicine Visit Obstetrics & Gynecology Claritza Velez MD [address] [place] [phone] 06/04/2020 Telemedicine Visit Obstetrics & Gynecology Claritza Velez MD [address] [place] [phone] 06/18/2020 Soap Worker Visit Endocrinology Diabetes & LamonteRegla alvarez RD Metabolism [address] [place] [address] [phone] Health Maintenance Due Date Last Done Comments [...] Associated Diagnosis Comme nts CONSENT/REFUSAL FOR Routine 04/18/2020 9:48 PM CDT DIAGNOSIS AND TREATMENT documented in this encounter Results Not on filedocumented in this encounter Insurance Payer Benefit Plan / Subscriber ID Effective Dates Phone Addre ss Type Group [facility] xxxxxxxxx 2020-Present Medicaid COMM PLAN - PLUS MANAGED MEDICAID documented as of this encounter Advance Directives Name Relationship Healthcare Agent Communication Relationship Miranda Macdonaldante Sibling Primary healthcare agent Michelet Brower Significant Other First alternate [phone] healthcare agent (Mobile)
--- OUTSIDE RECORDS SUMMARY | 2020-04-30 11:22 | XMS REPORT | Summary of Care ---
:1985 Author Organization [facility] - Health Address [address] [place] [id number] Care Team Providers Name Role Phone RafykarisKlarissa Flores Insurance Hmo GABI Alvarez Primary Care Provider Reason for Visit Reason Comments Hospital F/U ED Encounter Details Date Type Department Care Team Description 04/17/2020 Patient Outreach [facility] Community Rita Rodriguez, Hosp ital F[facility]U [facility]ED[facility] [place] [phone] Allergies Active Allergy Reactions Severity Noted Date Comments Ibuprofen Rash 04/19/2017 documented as of this encounter (statuses as of 04/17/2020) Medications Medication Sig Dispensed Refills Start Date End Date Status sod dflaw-hjojan-szykxq Use 1 Bottle in 1 Each 0 [...] anovulation azelastine 137 mcg (0.1 Use 1 [place] in 30 mL 5 02/21/2020 Active %) [...] as of this encounter (statuses as of 04/17/2020) Active Problems Problem Noted Date Gas pain 04/16/2020 Constipation, unspecified constipation type 04/16/2020 Chronic idiopathic constipation 02/21/2020 Epistaxis 02/21/2020 Morbid obesity with body mass index of 40.0-49.9 01/02 Indigestion 07/25/2019 Overview: Added automatically from request for linda brian [id number] Epigastric pain 07/25/2019 Overview: Added automatically from request for linda brian [id number] Type 2 diabetes mellitus with complication, without [...] as of this encounter (statuses as of 04/17/2020) Immunizations Name Administration Dates Next Due Influenza [...] file Travel History Travel Start Travel End [place] 04/06/2020 04/11/2020 COVID-19 Exposure Response Date Recorded In the last month, have you been in contact with No / Unsure 04/16/2020 7:18 AM CDT someone who was confirmed or suspected to have Coronavirus / COVID-19? documented as of this encounter Last Filed Vital Signs Not on filedocumented in this encounter Progress Notes Rita Rodriguez RN - 04/17/2020 4:02 PM CDTDate of Service: 04/16/2020 Chief Complaint: Bloating Care Transition CM made f/u call to pt post-discharge. No response and call went to voicemail. CM left a discreet message with purpose of call and CM's call back information. Rita Rodriguez RN, BSN Mortising Machine Operator-NICOLAS TEAM [phone] documented in this encounter Plan of Treatment Date Type Specialty Care Team Description 04/29/2020 Office Visit Otolaryngology Jorge L Willett MD [address] [place] [address] [phone] 04/30/2020 Telemedicine Visit Obstetrics & Gynecology Claritza Velez MD [address] [place] [phone] 06/04/2020 Telemedicine Visit Obstetrics & Gynecology Claritza Velez MD [address] [place] [address] [place] [address] [phone] 06/18/2020 Pelletizer Tender Visit Endocrinology Diabetes & LamonteRegla, RD Metabolism [address] [place] [address] [phone] Health Maintenance Due Date Last Done Comments [...] Effective Dates Phone Addre ss Type Group [facility] xxxxxxxxx 2020-Present Medicaid COMM PLAN - PLUS MANAGED MEDICAID documented as of this encounter Advance Directives Name Relationship Healthcare Agent Communication Relationship Miranda Morales Sibling Primary healthcare agent Michelet Brower Significant Other First alternate [phone] healthcare agent (Mobile)
--- OUTSIDE RECORDS SUMMARY | 2020-04-30 11:22 | XMS REPORT | Summary of Care ---
:1985 Author Organization [facility] - [facility] Address [address] [place] [address] Care Team Providers Name Role Phone Klarissa Delgado Flores Insurance Hmo GABI Alvarez Primary Care Provider Reason for Visit Reason Comments Results Encounter Details Date Type Department Care Team Description 04/17/2020 Telephone [facility] Karoline Hare FNP Results - [place] [address] [place] [address] [place] [phone] Allergies Active Allergy Reactions Severity Noted Date Comments Ibuprofen Rash 04/19/2017 documented as of this encounter (statuses as of 04/17/2020) Medications Medication Sig Dispensed Refills Start Date End Date Status sod xmopn-xqekqh-enimxd Use 1 Bottle in 1 Each 0 [...] anovulation azelastine 137 mcg (0.1 Use 1 [place] in 30 mL 5 02/21/2020 Active %) [...] Added automatically from request for linda brian [id number] Epigastric pain 07/25/2019 Overview: Added automatically from request for linda brian [id number] Type 2 diabetes mellitus with complication, without [...] file Travel History Travel Start Travel End [place] 04/06/2020 04/11/2020 COVID-19 Exposure Response Date Recorded [...] Visit Otolaryngology Jorge L Willett MD [address] [place] [address] [phone] 04/30/2020 Telemedicine Visit Obstetrics & Gynecology Claritza Velez MD [address] [place] [address] [phone] 06/04/2020 Telemedicine Visit Obstetrics & Gynecology Claritza Velez MD [address] [place] [address] [phone] 06/18/2020 Form Maker Visit Endocrinology Diabetes & LamonteRegla alvarez RD Metabolism [address] [place] [address] [phone] Health Maintenance Due Date Last Done Comments [...] Benefit Plan Subscriber ID Effective Phone Address Typ e / Group Dates [facility] xxxxxxxxx 2020-Prese Medic aid HEALTHCARE COMM STAR PLUS nt PLAN - MANAGED MEDICAID [facility] MEDICAID OF xxxxxxxxx 2020-Prese [phone] Med icaid [place] nt [phone] [place] [address] documented as of this encounter Advance Directives Name Relationship Healthcare Agent Communication Relationship Miranda Morales Sibling Primary healthcare agent Michelet Brower Significant Other First alternate [phone] healthcare agent (Mobile)
--- OUTSIDE RECORDS SUMMARY | 2020-04-30 11:24 | XMS REPORT | Summary of Care ---
:1985 Author Organization [facility] - [facility] Address [address] [place] [address] Care Team Providers Name Role Phone Klarissa Delgado Insurance Hmo GABI Alvarez Primary Care Provider Reason for Visit Reason Comments Hypertension Headache Auth/Cert Status Reason Specialty Diagnoses / Referred By Referred To Procedures Contact Contact Emergency Medicine Ad[facility] Em ergency Dept [address] [place] [address] Fax: Encounter Details Date Type Department Care Team Description 04/18/2020 - Emergency ADC-Emergency Janet Burroughs Headache dis order (Primary Dx); 04/19/2020 Department MD Heydi Elevated blood pressure reading; [address] [facility] [address] [facility] Uncontrolled type 2 diabetes mellitus [place] [address] [id number] [place], [place] [id number] Allergies Active Allergy Reactions Severity Noted Date Comments Ibuprofen Rash 04/19/2017 documented as of this encounter (statuses as of 04/19/2020) Medications Medication Sig Dispensed Refills Start Date End Date Status sod kgnmm-kxevtl-wkceyj Use 1 Bottle in 1 Each 0 [...] anovulation azelastine 137 mcg (0.1 Use 1 [place] in 30 mL 5 02/21/2020 Active %) [...] by mouth daily. Constipation, unspecified constipation type butalbital-acetaminophen- Take 1 tablet 12 tablet 0 04/19/2020 Active caff 50-325-40 mg by mouth every tabletIndications: 6 (six) hours Headache disorder as needed (Headache). documented as of this encounter (statuses as of 04/19/2020) Active Problems Problem Noted Date Gas pain 04/16/2020 Constipation, unspecified constipation type 04/16/2020 Chronic idiopathic constipation 02/21/2020 Epistaxis 02/21/2020 Morbid obesity with body mass index of 40.0-49.9 01/02 Indigestion 07/25/2019 Overview: Added automatically from request for linda brian [id number] Epigastric pain 07/25/2019 Overview: Added automatically from request for linda brian [id number] Type 2 diabetes mellitus with complication, without [...] as of this encounter (statuses as of 04/19/2020) Immunizations Name Administration Dates Next Due Influenza [...] file Travel History Travel Start Travel End [place] 04/06/2020 04/11/2020 COVID-19 Exposure Response Date Recorded In the last month, have you been in contact with No / Unsure 04/18/2020 9:53 PM CDT someone who was confirmed or suspected to have Coronavirus / COVID-19? documented as of this encounter Last Filed Vital Signs Vital Sign Reading Time Taken Comments Blood Pressure 147/99 04/18/2020 9:55 PM CDT Pulse 92 04/18/2020 9:55 PM CDT Temperature 37 C (98.6 F) 04/18/2020 9:55 PM CDT Respiratory Rate 14 04/18/2020 9:55 PM CDT Oxygen Saturation 100% 04/18/2020 9:55 PM CDT Inhaled Oxygen Concentration - - Weight 104.3 kg (230 lb) 04/18/2020 9:55 PM CDT Height 162.6 cm (5' 4") 04/18/2020 9:55 PM CDT Body Mass Index 39.48 04/18/2020 9:55 PM CDT documented in this encounter Discharge Instructions Janet House MD - 04/19/2020 DIAGNOSIS Diagnoses that have been ruled out: None Diagnoses that are still under consideration: None Final diagnoses: Headache disorder Elevated blood pressure reading Uncontrolled type 2 diabetes mellitus with hyperglycemia NO LIFE-THREATENING FINDINGS ON TODAY'S EXAM. PROCEDURES IN THE ER TODAY: Orders Placed This Encounter Procedures POCT TEST POCT GLUCOSE(AGE >30DAYS) URINALYSIS POCT GLUCOSE (AUTOMATED) MEDICATIONS ADMINISTERED IN THE ER TODAY AND DISCHARGE MEDICATIONS: Orders Placed This Encounter Medications DISCONTD: kgltcilgwq-nxjnqpkbilrus-tfmd (ESGIC) 50-325-40 mg tablet 1 tablet acetaminophen (TYLENOL) tablet 1,000 mg wadohltaqh-ylautdwaikgks-pwqp 50-325-40 mg tablet FOLLOW-UP RECOMMENDATIONS: RECOMMEND FOLLOW-UP WITH YOUR PRIMARY CARE PROVIDER OR SPECIALIST IN 2-5 DAYS, ESPECIALLY IF NO IMPROVEMENT IN SYMPTOMS. MAY FOLLOW-UP WITH A PROVIDER OF YOUR CHOICE, SUCH : 1. A PHYSICIAN OF YOUR CHOICE 2. [facility], . LOCATIONS IN [facility] 3. [facility], [address] [place] [address]; [phone] OR, IF YOU WISH TO FOLLOW-UP WITHIN THE [facility], MAY TRY THESE OPTIONS (CLINIC APPOINTMENTS AVAILABLE ON [id number] BASIS): 1. SCHEDULE AN APPOINTMENT ONLINE AT [facility] 2. OR CALL THE [facility] ACCESS CENTER AT OR 3. OR CALL YOUR [facility] PHYSICIAN'S OFFICE DIRECTLY IF YOU ARE ALREADY AN ESTABLISHED [facility] PATIENT. RETURN TO ER FOR WORSENING OF SYMPTOMS documented in this encounter Plan of Treatment Date Type Specialty Care Team Description 04/29/2020 Office Visit Otolaryngology Jorge L Willett MD [address] [facility] [address] [place] [address] [phone] 04/30/2020 Telemedicine Visit Obstetrics & Gynecology Claritza Velez MD [address] [place] [phone] 06/04/2020 Telemedicine Visit Obstetrics & Gynecology Claritza Velez MD [address] [place] [phone] 06/18/2020 [place] Visit Endocrinology Diabetes & Lamonte, Regla, RD Metabolism [address] [place] [address] [phone] Health Maintenance Due Date Last Done Comments [...] Name Priority Date/Time Associated Comments Diagnosis POCT GLUCOSE(AGE BHARATHI 04/18/2020 11:01 PM Headache disorder Results for this >30DAYS) CDT procedure are i n the results section. URINALYSIS STAT 04/18/2020 11:01 PM Headache disorder Res ults for this CDT procedure are i n the results section. POCT GLUCOSE Routine 04/18/2020 11:00 PM Results for this (AUTOMATED) CDT procedure are i n the results section. POCT TEST BHARATHI 04/18/2020 10:54 PM Headache disor starr Results for this CDT procedure are i n the results section. ASSIGNMENT OF Routine 04/18/2020 9:49 PM BENEFITS CDT documented in this encounter Results URINALYSIS (04/18/2020 11:01 PM CDT) Pathologist Sig nature APPEARANCE Clear Clear [facility] COLOR Yellow Yellow [facility] PH 6.0 4.8 - 8.0 [facility] SP GRAVITY 1.012 1.003 - 1.030 [facility] GLU U QUAL Normal Normal [facility] BLOOD 2+ (A) Negative [facility] KETONES Negative Negative [facility] PROTEIN Negative Negative [facility] UROBILIN Normal Normal [facility] BILIRUBIN Negative Negative [facility] NITRITE Negative Negative [facility] LEUK TARA Negative Negative [facility] RBC/HPF 2 0 - 3 HPF [facility] WBC/HPF 0 0 - 5 HPF [facility] BACTERIA Few (A) Negative [facility] MUCOUS Slight (A) Negative LPF [facility] SQ EPITH <1 HPF [facility] Specimen Urine - URINE, CLEAN CATCH Performing Organization Address City/[facility] Cent[facility]ode Phone Number [facility] CLIA: [id number], [address] [place] [address] POCT GLUCOSE(AGE >30DAYS) (04/18/2020 11:01 PM CDT) Pathologist Sig counts include [facility] beds at the [facility] POCT Glu (age>30days) 148 (A) 70 - 110 mg/dL Specimen Blood - CAPILLARY POCT GLUCOSE (AUTOMATED) (04/18/2020 11:00 PM CDT) [facility] POCT GLU 148 (H) 70 - 110 mg/dL [facility] Specimen Blood Performing Organization Address City/[facility] Centercoaz Phone Number [facility] CLIA: [id number], [address] [place], [place] [address] POCT TEST (04/18/2020 10:54 PM CDT) Pathologist Sig nature POCT PREG Negative On board controls acceptable Present with C Line POCT PREG LOT # [id number] POCT PREG TEST DATE 06/26/2021 Specimen Urine - URINE, CLEAN CATCH documented in this encounter Visit Diagnoses Diagnosis Headache disorder - Primary Headache Elevated blood pressure reading Elevated blood pressure reading without diagnosis of hypertension Uncontrolled type 2 diabetes mellitus wi th hyperglycemia documented in this encounter Administered Medications Medication Order MAR Action Action Date Dose Rate Site acetaminophen (TYLENOL) tablet Given 04/18/2020 11:15 PM CDT 1,0 00 mg 1,000 mg 1,000 mg, Oral, ONCE, 1 dose, 04/18/20 at 2330, BHARATHI documented in this encounter Insurance Payer Benefit Plan / Subscriber ID Effective Phone Address T e [facility] [id number] 2019-Prese Medic are Adv HEALTHCARE - HEALTHCARE DUAL nt H [place] MANAGED COMPLETE HMO MEDICARE [employer] [place] [employer] xxxxxxxxx 2020-Prese Medicaid HEALTHCARE COMM PLUS nt PLAN - MANAGED MEDICAID documented as of this encounter Advance Directives Name Relationship Healthcare Agent Communication Relationship Miranda Morales Sibling Primary healthcare agent Michelet Brower Significant Other First alternate [phone] healthcare agent (Mobile)
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
--- OUTSIDE RECORDS SUMMARY | 2020-04-30 11:24 | XMS REPORT | Summary of Care ---
:1985 Author Organization [facility] - [facility] Address [address] [place] [id number] Care Team Providers Name Role Phone DannyMohantaylor Tanner Insurance Hmo GABI Alvarez Primary Care Provider Reason for Visit Reason Comments Transition Of Care Encounter Details Date Type Department Care Team Description 04/22/2020 Transition of Care [facility] Nedra Thomas Transition Of Care Network- [place] RN [phone] Allergies Active Allergy Reactions Severity Noted Date Comments Ibuprofen Rash 04/19/2017 documented as of this encounter (statuses as of 04/22/2020) Medications Medication Sig Dispensed Refills Start Date End Date Status sod kdxzi-qobbbi-tqsczg Use 1 Bottle in 1 Each 0 [...] anovulation azelastine 137 mcg (0.1 Use 1 [place] in 30 mL 5 02/21/2020 Active %) [...] as of this encounter (statuses as of 04/22/2020) Active Problems Problem Noted Date Gas pain 04/16/2020 Constipation, unspecified constipation type 04/16/2020 Chronic idiopathic constipation 02/21/2020 Epistaxis 02/21/2020 Morbid obesity with body mass index of 40.0-49.9 01/02 Indigestion 07/25/2019 Overview: Added automatically from request for linda brian [id number] Epigastric pain 07/25/2019 Overview: Added automatically from request for linda brian [id number] Type 2 diabetes mellitus with complication, without [...] as of this encounter (statuses as of 04/22/2020) Immunizations Name Administration Dates Next Due Influenza [...] file Travel History Travel Start Travel End [place] 04/06/2020 04/11/2020 COVID-19 Exposure Response Date Recorded [...] MD [address] [place] [address] [phone] 04/30/2020 Telemedicine Visit Obstetrics & Gynecology Claritza Velez MD [address] [place] [phone] 06/04/2020 Telemedicine Visit Obstetrics & Gynecology Claritza Velez MD [address] [place] [phone] 06/18/2020 Childhood Teacher Visit Endocrinology Diabetes & LamonteRegla alvarez RD Metabolism [address] [place] [address] [phone] Health Maintenance Due Date Last Done Comments [...] Effective Phone Address T e Group [facility] [id number] 2019-Prese Medic are Adv HEALTHCARE - HEALTHCARE DUAL nt H [place] MANAGED COMPLETE HMO MEDICARE [facility] STAR xxxxxxxxx 2020-Prese Medicaid HEALTHCARE COMM PLUS nt PLAN - MANAGED MEDICAID documented as of this encounter Advance Directives Name Relationship Healthcare Agent Communication Relationship Miranda Morales Sibling Primary healthcare agent Michelet Brower Significant Other First alternate [phone] healthcare agent (Mobile)
[2020-04-30 11:31] LABS: Urine Blood TRACE (NEG); Urine Glucose NEGATIVE (NEG); Urine Protein 1+ (NEG)
[2020-04-30 11:44] VITALS: BP 124/76; TEMP 99.1; O2SAT 100
== END 2020-04-30 11:29 | disposition home or self-care (01) ==
LOC: ER 09:55
DX: N39.0 Urinary tract infection, site not specified (principal)
CPT/HCPCS: 81003; 81025; 87086; 87088; 96372; 99283